=== PATIENT | male | born 1955 | race Caucasian/White ===

== ENCOUNTER 2020-02-10 10:53 | Outpatient (CLI) | payer MEDICARE, MEDICAID, SELFPAY ==
[2020-02-10 12:12] LABS: Basophils Absolute Auto 0.1 K/mm3 (0.0-0.1); Basophils Percent Auto 0.5 % (0.2-1.2); Eosinophils Absolute Auto 0.1 K/mm3 (0-0.3); Eosinophils Percent Auto 0.7 % (0-4.4); Hematocrit 45.9 % (42.0-52.0); Hemoglobin 15.4 g/dL (14.0-18.0); Immature Granulocyte Absolute 0.04 K/mm3 (0.00-0.031); Immature Granulocyte Percent A 0.4 % (0-0.5); Lymphocytes Absolute Auto 1.92 K/mm3 (0.9-3.2); Lymphocytes Percent Auto 17.8 % (18.3-44.2); Mean Corpuscular HGB Conc 33.6 g/dl (32-36); Mean Corpuscular Hemoglobin 32.2 pg (26-34); Mean Corpuscular Volume 95.8 fl (80-100); Mean Platelet Volume 10.1 fl (7.4-10.4); Monocytes Absolute Auto 1.1 K/mm3 (0.1-0.6); Monocytes Percent Auto 10.1 % (2.6-8.5); Neutrophils Absolute Auto 7.6 K/mm3 (1.3-6.7); Neutrophils Percent Auto 70.5 % (45.5-73.1); Platelet Count Result 206 k/mm3 (150-375); Red Blood Count 4.79 M/mm3 (4.6-6.20); Red Cell Distribution Width 12.9 % (11.5-14.5); White Blood Count 10.8 K/mm3 (4.5-10.0)
[2020-02-10 12:20] LABS: Alanine Aminotransferase 12 U/L (4-50); Albumin Level 4.1 g/dL (3.5-5.1); Alkaline Phosphatase 89 U/L (38-126); Anion Gap 6 mmol/L (8-16); Aspartate Amino Transferase 14 U/L (17-59); Bilirubin,Total 0.6 mg/dL (0.2-1.3); Blood Urea Nitrogen 13 mg/dL (9-20); Calcium 9.3 mg/dL (8.4-10.2); Carbon Dioxide 25 mmol/L (22-30); Chloride 104 mmol/L (98-107); Cholesterol 115 mg/dL (0-200); Estimated Glomerular Filt Rate > 60; Glucose 110 mg/dL (75-110); HDL Direct 32 mg/dL; Potassium 4.2 mmol/L (3.4-5.0); Sodium 135 mmol/L (137-145); Triglycerides 62 mg/dL (<150)
[2020-02-10 12:23] LABS: Add Urine Microscopic? NO; Appearance Urine Clear (Clear); Bilirubin Urine Negative (Negative); Blood Urine Negative (Negative); Color Urine Straw (Yellow); Glucose Urine UA Negative (Negative); Ketones Urine Negative (Negative); Leukocyte Esterase Ur Negative LEU/UL (NEGATIVE); Nitrate Urine Negative (Negative); Protein Urine Negative (Negative); Specific Grav Ur 1.005 (1.001-1.035); Urobilinogen Urine Negative mg/dL (<2.0)
[2020-02-10 12:30] LABS: LDL Cholesterol Direct 66 mg/dL
[2020-02-10 12:59] LABS: Prostate Specific Antigen 0.6 ng/mL (< OR = 4.0)
== END 2020-02-10 10:54 | disposition home or self-care (01) ==
DX: I10 Essential (primary) hypertension (principal); Z12.5 Encounter for screening for malignant neoplasm of prostate
CPT/HCPCS: 36415; 80053; 80061; 81003; 84153; 85025; G0103

== ENCOUNTER 2020-03-11 09:20 | Emergency (ER) | payer MEDICARE, MEDICAID, SELFPAY ==
[2020-03-11 09:27] VITALS: BP 143/90; PULSE 80; RESP 14; TEMP 36.3; O2SAT 98
--- NOTE | 2020-03-11 10:26 | ED.WOUNDLAC ---
HPI - Wound/Laceration General Chief Complaint: Wound/Laceration <CARMENZA Aleman Last Filed: 03/11/20 11:56> Stated Complaint: abscess to groin <CARMENZA Aleman Last Filed: 03/11/20 11:56> Time Seen by Provider: 03/11/20 10:12 <CARMENZA Aleman Last Filed: 03/11/20 11:56> Source: patient <CARMENZA Aleman Last Filed: 03/11/20 11:56> Mode of arrival: ambulatory <CARMENZA Aleman Last Filed: 03/11/20 11:56> Limitations: no limitations <CARMENZA Aleman Last Filed: 03/11/20 11:56> History of Present Illness HPI narrative: This is a 64-year-old male that presents the emergency department for cyst to the scrotum x1 year. Reports he had to have this drained a year ago. Reports since he has still had the cyst in the area. Reports over the last week it has become red and painful. Denies fever or drainage. <CARMENZA Aleman Last Filed: 03/11/20 11:56> Related Data Home Medications: Home Medications Medication Instructions Recorded Confirmed clopidogrel 03/11/20 lisinopril 03/11/20 rosuvastatin mg 03/11/20 <CARMENZA Aleman Last Filed: 03/11/20 11:56> Allergies/Adverse Reactions: Allergies Allergy/AdvReac Type Severity Reaction Status Date / Time No Known Allergies Allergy Unknown Unknown Verified 02/05/19 11:32 <CARMENZA Aleman Last Filed: 03/11/20 11:56> Review of Systems Review of Systems: Narrative: CONSTITUTIONAL: Denies fever SKIN: Reports cyst GENITOURINARY: Denies dysuria <CARMENZA Aleman Last Filed: 03/11/20 11:56> All systems reviewed & are unremarkable except as noted in HPI and below <CARMENZA Aleman Last Filed: 03/11/20 11:56> PMFSH Past Medical History Medical History: Medical History (Updated 03/11/20 @ 11:51 by Mar Ledezma PA-C) History of CVA (cerebrovascular accident) History of hyperlipidemia History of hypertension <Mar Ledezma PA-C - Last Filed: 03/11/20 11:56> Social History Social History: Social History Gender identity (if verbalized by the patient): Male <Mar Ledezma PA-C - Last Filed: 03/11/20 11:56> Exam Narrative: Exam Narrative: GENERAL: Well-appearing, well-nourished, and in no acute distress. HEAD: Normocephalic, atraumatic. EYES: EOMI. CHEST: Clear to auscultation. No respiratory distress. No wheezes rales or rhonchi HEART: Regular rate and rhythm. No murmur heard. Normal peripheral pulses. EXTREMITIES: Normal range of motion. No edema. SKIN: Warm, dry, no rash. NEURO: No focal deficits. Alert and oriented x3. PSYCH: Normal mood and affect MALE GENITAL: 2 small areas (2cm and 1.5cm) of redness and fluctuance to the left hemiscrotum. No extension of erythema or edema. No testicular tenderness <Mar Ledezma PA-C - Last Filed: 03/11/20 11:56> Course Vital Signs Vital signs: Vital Signs Temperature 97.4 F L 03/11/20 09:27 Pulse Rate 80 03/11/20 09:27 Respiratory Rate 14 03/11/20 09:27 Blood Pressure 143/90 H 03/11/20 09:27 Pulse Oximetry 98 03/11/20 09:27 Temperature 97.4 F L 03/11/20 09:27 Pulse Rate 68 03/11/20 12:05 Respiratory Rate 12 03/11/20 12:05 Blood Pressure 132/60 03/11/20 12:05 Pulse Oximetry 98 03/11/20 12:05 <Mar Ledezma PA-C - Last Filed: 03/11/20 11:56> Vital Signs Temperature 97.4 F L 03/11/20 09:27 Pulse Rate 80 03/11/20 09:27 Respiratory Rate 14 03/11/20 09:27 Blood Pressure 143/90 H 03/11/20 09:27 Pulse Oximetry 98 03/11/20 09:27 Temperature 97.4 F L 03/11/20 09:27 Pulse Rate 68 03/11/20 12:05 Respiratory Rate 12 03/11/20 12:05 Blood Pressure 132/60 03/11/20 12:05 Pulse Oximetry 98 03/11/20 12:05 <Courtney Mittal MD - Last Filed: 03/11/20 13:28> Procedures Abscess I/D scrotum: Date of Incision: 03/11/20 <Mar Ledezma PA-C - Last Filed: 03/11/20 11:56>
[2020-03-11 10:45] LABS: Basophils Absolute Auto 0.1 K/mm3 (0.0-0.1); Basophils Percent Auto 0.7 % (0.2-1.2); Eosinophils Absolute Auto 0.1 K/mm3 (0-0.3); Hematocrit 45.3 % (42.0-52.0); Hemoglobin 15.1 g/dL (14.0-18.0); Immature Granulocyte Absolute 0.03 K/mm3 (0.00-0.031); Immature Granulocyte Percent A 0.3 % (0-0.5); Lymphocytes Absolute Auto 1.77 K/mm3 (0.9-3.2); Lymphocytes Percent Auto 20.5 % (18.3-44.2); Mean Corpuscular HGB Conc 33.3 g/dl (32-36); Mean Corpuscular Hemoglobin 32.3 pg (26-34); Mean Corpuscular Volume 96.8 fl (80-100); Mean Platelet Volume 9.9 fl (7.4-10.4); Monocytes Absolute Auto 0.8 K/mm3 (0.1-0.6); Monocytes Percent Auto 9.6 % (2.6-8.5); Neutrophils Absolute Auto 5.9 K/mm3 (1.3-6.7); Neutrophils Percent Auto 67.9 % (45.5-73.1); Platelet Count Result 201 k/mm3 (150-375); Red Blood Count 4.68 M/mm3 (4.6-6.20); Red Cell Distribution Width 13.3 % (11.5-14.5); White Blood Count 8.7 K/mm3 (4.5-10.0)
[2020-03-11 10:59] LABS: Alanine Aminotransferase 13 U/L (4-50); Albumin Level 3.7 g/dL (3.5-5.1); Alkaline Phosphatase 76 U/L (38-126); Anion Gap 6 mmol/L (8-16); Aspartate Amino Transferase 14 U/L (17-59); Bilirubin,Total 0.6 mg/dL (0.2-1.3); Blood Urea Nitrogen 16 mg/dL (9-20); CRP 0.7 mg/dL (<1.0); Calcium 9.5 mg/dL (8.4-10.2); Carbon Dioxide 28 mmol/L (22-30); Chloride 104 mmol/L (98-107); Estimated CRCL calculation 81 ml/min; Estimated Glomerular Filt Rate > 60; Glucose 121 mg/dL (75-110); Potassium 3.9 mmol/L (3.4-5.0); Sodium 138 mmol/L (137-145)
[2020-03-11 11:02] VITALS: BP 131/77; PULSE 95; RESP 14; O2SAT 98
[2020-03-11 11:07] LABS: Prothrombin Time 13.3 Seconds (11.1-14.7)
[2020-03-11 11:08] LABS: Partial Thromboplastin Time 28.1 SECONDS (22.3-36.8)
[2020-03-11 12:05] VITALS: BP 132/60; PULSE 68; RESP 12; O2SAT 98
== END 2020-03-11 12:06 | disposition home or self-care (01) ==
PROVIDERS: Emergency Provider General Practice
DX: N49.2 Inflammatory disorders of scrotum (principal); E78.5 Hyperlipidemia, unspecified; I10 Essential (primary) hypertension; Z86.73 Personal history of transient ischemic attack (TIA), and cerebral infarction without residual deficits
CPT/HCPCS: 36415; 54700; 80053; 85025; 85610; 85730; 86140; 99283

== ENCOUNTER 2020-06-10 15:22 | Outpatient (CLI) | payer MEDICARE, MEDICAID, SELFPAY ==
--- NOTE | 2020-06-10 15:27 | ECG_ITS ---
Measurements Intervals [place] Rate: 79 P: 72 MN: 171 QRS: -80 QRSD: 132 T: 57 QT: 414 QTc: 476 Interpretive Statements SINUS RHYTHM ATRIAL PREMATURE COMPLEXES RIGHT BUNDLE BRANCH BLOCK LEFT ANTERIOR FASCICULAR BLOCK ABNORMAL ECG Electronically Signed On 06-10-2020 16:20:58 [employer] by Aleksey Salas D.O.
== END 2020-06-10 15:23 | disposition home or self-care (01) ==
LOC: ANHSURGERY 15:27
PROVIDERS: Visit Provider Urology
DX: Z01.818 Encounter for other preprocedural examination (principal); I10 Essential (primary) hypertension; I44.4 Left anterior fascicular block; I45.10 Unspecified right bundle-branch block
CPT/HCPCS: 93005

== ENCOUNTER 2020-06-11 04:32 | Outpatient (CLI) | payer MEDICARE, MEDICAID, SELFPAY ==
[2020-06-11 19:32] LABS: SARS-CoV-2 RNA PCR Positive
== END 2020-06-11 04:33 | disposition home or self-care (01) ==
LOC: ANHCOVIDDT 04:34
PROVIDERS: Visit Provider Urology
DX: U07.1 COVID-19 (principal)
CPT/HCPCS: C9803; U0003

== ENCOUNTER 2020-06-14 00:59 | Day surgery (SDC) | payer MEDICARE, MEDICAID, SELFPAY ==
[2020-06-10 13:40] VITALS: BMI 28.8
[2020-06-14 08:37] VITALS: BP 149/82; PULSE 73; RESP 16; TEMP 36.9; O2SAT 97
--- NOTE | 2020-06-14 08:38 | WPDHPUPDATE1 ---
History and Physical Update Update Date/Time: 06/14/20 08:38 History and Physical has been reviewed, including an updated exam of the patient. There are NO changes in the patient's condition. Risks, benefits, and alternatives have been discussed and questions answered. Patient agrees to proceed with procedure. Proceed with I and D of scrotal abscess
--- NOTE | 2020-06-14 08:39 | PM.IMHP ---
H&P: HPI History of Present Illness Date/Time: 06/14/20 08:39 Chief Complaint: scrotal abscess Narrative: Jose Stewart is a 65 year old male who was evaluated by Dr Taveras and scheduled for I and D of scrotal abscess Review of Systems Review of Systems: All systems reviewed & are unremarkable except as noted in HPI and below PMFSH Past Medical History Medical History History of CVA (cerebrovascular accident) History of hyperlipidemia History of hypertension Social History Social History Years smoked: 41 Smoking status: Current every day smoker Tobacco type: cigarettes Substance use type: marijuana Last use: 1 Living arrangements: with family Gender identity (if verbalized by the patient): Male Spiritual care concerns: No Meds Home Medications and Allergies Home Medications Medication Instructions Recorded Confirmed Type clopidogrel 75 mg PO DAILY 03/11/20 06/10/20 History lisinopril 20 mg PO DAILY 03/11/20 06/10/20 History rosuvastatin 20 mg PO DAILY 03/11/20 06/10/20 History umeclidinium-vilanterol [Anoro 1 inh INHALATION QAM 06/10/20 06/10/20 History Ellipta] zolpidem 2.5 mg PO HS 06/10/20 06/10/20 History Allergies Allergy/AdvReac Type Severity Reaction Status Date / Time No Known Allergies Allergy Unknown Unknown Verified 06/10/20 13:36 Assessment and Plan Assessment and plan (1) Scrotal abscess: Code(s): N49.2 - Inflammatory disorders of scrotum Status: Acute Additional Plan I and D of scrotal abscess
--- NOTE | 2020-06-14 08:50 | WPDANESEPPF ---
Anes - Initial Pre Proc Eval Procedure: Operation Date: 06/14/20 09:30 Proposed Procedures p Incision and Drainage of Scrotal Abscess - Dillon Miranda MD Date/Time: 06/14/20 08:50 Surgeon: Dillon Miranda MD Pre Op Diagnosis: Scrotal abscess Patient Data Age: 65 Gender: M Height: 6 ft 3 in Weight: 104.5 kg Allergies Allergy/AdvReac Type Severity Reaction Status Date / Time No Known Allergies Allergy Unknown Unknown Verified 06/10/20 13:36 Home Medications Medication Instructions Recorded Confirmed Type clopidogrel 75 mg PO DAILY 03/11/20 06/10/20 History lisinopril 20 mg PO DAILY 03/11/20 06/10/20 History rosuvastatin 20 mg PO DAILY 03/11/20 06/10/20 History umeclidinium-vilanterol [Anoro 1 inh INHALATION QAM 06/10/20 06/10/20 History Ellipta] zolpidem 2.5 mg PO HS 06/10/20 06/10/20 History Patient hx anesthesia problems: none Family hx anesthesia problems: none PMFSH Past Medical History Medical History History of CVA (cerebrovascular accident) History of hyperlipidemia History of hypertension Social History Social History Years smoked: 41 Smoking status: Current every day smoker Tobacco type: cigarettes Substance use type: marijuana Last use: 1 Living arrangements: with family Gender identity (if verbalized by the patient): Male Spiritual care concerns: No Anes - Eval Final PreProcedure Day of Procedure 06/14/20 08:50 Patient weight: overweight Heart: regular rate and rhythm Lungs: clear to auscultation Airway: Mallampati scale class III Neurological: alert and oriented Last oral intake: >/= 8 hours ASA classification: III Emergent: no Anesthetic plan: proceed Anesthesia type and monitoring: general GIVS (may use ETT if needed) and ETT and standard monitoring Informed Consent: The patient's anesthetic plan and its attendant risks and benefits were discussed with the patient/family/POA. Questions were solicited and answers provided to the satisfaction of the patient/family/POA.
[2020-06-14] MEDS: LACTATED RINGERS 1,000 ML 30 ML IV CONT (08:59)
[2020-06-14] MEDS: ceFAZolin 2 GM/D5W 50 ML 2 GM/50 ML BAG IVPB (09:35)
[2020-06-14] MEDS: LIDOCAINE HCL 1% LOCAL INJ 10 ML VIAL 20 ML INFILTRATE (10:05)
[2020-06-14 10:11] VITALS: BP 122/76; PULSE 77; RESP 16; O2SAT 94
[2020-06-14 10:15] VITALS: BP 122/79; PULSE 79; RESP 13; O2SAT 96
--- NOTE | 2020-06-14 10:17 | PM.PROC ---
Procedure Note - Detailed Date of procedure: 06/14/20 Pre-op diagnosis: Scrotal abscess Post-op diagnosis: same Procedure performed: I and D of scrotal abscess Description of procedure: Patient is taken to the operative suite. He was correctly identified and placed in dorsal lithotomy position and prepped draped usual sterile fashion. He has an area of fluctuance in the perineal area. There is approximately 3 separate areas. Two balm communicate and were incised with about a 1-1/2 inch incision. Some purulence was noted and cultures were taken. Second incision was made just inferior to this 1 approximately 1 cm. This also was noted to communicate. We did leave a small skin bridge there. The wound was copiously irrigated with saline. Some of the skin which did not appear very healthy was also excised. The wound was left open. We placed Xeroform gauze and then damp saline gauze on top of that. We anesthetized with 1% lidocaine. Patient is taken recovery stable condition. He will be instructed on wet-to-dry dressing changes twice a day. He will follow up in a couple of weeks. Develops any problems he will call us so we can deal with appropriately. Anesthesia: GLMA Surgeon: Dillon Miranda MD Drains: No Packing: Yes Pathology: yes Complications: No immediate complications Condition: stable Disposition: PACU
[2020-06-14 10:30] VITALS: BP 122/82; PULSE 66; RESP 12; O2SAT 99
[2020-06-14 10:45] VITALS: BP 125/83; PULSE 69; RESP 12; O2SAT 97
[2020-06-14 10:52] VITALS: BP 139/90; PULSE 76; RESP 12; O2SAT 97
--- NOTE | 2020-06-14 10:54 | SUR.PHASEI ---
recovered pt in or 5. pt doing well on room air. taking pt to designated area to get dressed now. pt on way to pick him up.
== END 2020-06-14 10:53 | disposition home or self-care (01) ==
PROVIDERS: Visit Provider Urology
PROC: (CPT 54700; principal; 2020-06-14 09:30)
DX: N49.2 Inflammatory disorders of scrotum (principal); I10 Essential (primary) hypertension; E78.5 Hyperlipidemia, unspecified; Z86.73 Personal history of transient ischemic attack (TIA), and cerebral infarction without residual deficits; Z79.02 Long term (current) use of antithrombotics/antiplatelets; F17.210 Nicotine dependence, cigarettes, uncomplicated; F12.90 Cannabis use, unspecified, uncomplicated
CPT/HCPCS: 55100; 87070; 87075; 87076; 87205; A9270; J0690; J2250; J2405; J2704; J3010; J7120

== ENCOUNTER 2020-09-28 10:23 | Emergency (ER) | payer MEDICARE, MEDICAID, SELFPAY ==
[2020-09-28 10:39] VITALS: BP 147/98; PULSE 73; RESP 16; TEMP 36; O2SAT 98
--- NOTE | 2020-09-28 10:50 | ED.SKABFB ---
HPI - Skin/Abscess/Foreign Bdy General Chief complaint: Skin/Abscess/Foreign Body Stated complaint: right eye swelling Related Data Home Medications Medication Instructions Recorded Confirmed clopidogrel 75 mg PO DAILY 03/11/20 09/28/20 lisinopril 20 mg PO DAILY 03/11/20 09/28/20 rosuvastatin 20 mg PO DAILY 03/11/20 09/28/20 Anoro Ellipta 1 inh INHALATION QAM 06/10/20 09/28/20 zolpidem 2.5 mg PO HS 06/10/20 09/28/20 amiodarone 200 mg PO BID 09/28/20 09/28/20 sildenafil 100 mg PO .PRN PRN 09/28/20 09/28/20 Allergies Allergy/AdvReac Type Severity Reaction Status Date / Time No Known Allergies Allergy Unknown Unknown Verified 09/28/20 10:47 Review of Systems Review of Systems: Narrative: CONSTITUTIONAL: Denies fever, chills, or sweats. EYES: Denies visual changes, redness, or discharge. ENT: Denies rhinorrhea, congestion, sore throat, or otalgia. CARDIOVASCULAR: Denies chest pain, palpitations, or edema. RESPIRATORY: Denies cough or dyspnea. GASTROINTESTINAL: Denies abdominal pain, nausea, vomiting, or diarrhea. GENITOURINARY: Denies dysuria or hematuria. SKIN: abscess to face MUSCULOSKELETAL: Denies back pain, joint pain, or myalgia. NEUROLOGIC: Denies headache, numbness, dizziness, or weakness. PSYCHIATRIC: Denies anxiety or depression. PMFSH Past Medical History Medical History History of CVA (cerebrovascular accident) History of hyperlipidemia History of hypertension Social History Social History Years smoked: 41 Smoking status: Current every day smoker Tobacco type: cigarettes Substance use type: marijuana Last use: 1 Gender identity (if verbalized by the patient): Male Spiritual care concerns: No Comments At the time of signature, I have reviewed and agree with nursing past medical, surgical, social, and family history unless otherwise noted. Please see nursing chart for further information. There is no relevant family history pertinent to the presenting complaint. Exam Narrative: Exam Narrative: GENERAL: Well-appearing, well-nourished, and in no acute distress. HEAD: Normocephalic, atraumatic. EYES: EOMI. No redness or drainage. Conjunctiva are normal. ENT: Mucous membranes pink and moist. Nares clear. No rhinorrhea. TMs normal bilaterally. Throat normal. Uvula midline. NECK: AROM. Supple. No lymphadenopathy. CHEST: No respiratory distress. Clear to auscultation. HEART: Regular rate and rhythm. No murmur appreciated. Normal peripheral pulses. MUSCULOSKELETAL: No bony tenderness. EXTREMITIES: Normal range of motion. No edema. SKIN: Erythema, edema to right face. NEURO: No focal deficits. Alert and oriented x3. Gait steady. PSYCH: Normal affect. No signs of depression or anxiety. Course Vital Signs Vital signs: Vital Signs Temperature 36.0 C L 09/28/20 10:39 Pulse Rate 73 09/28/20 10:39 Respiratory Rate 16 09/28/20 10:39 Blood Pressure 147/98 H 09/28/20 10:39 Pulse Oximetry 98 09/28/20 10:39 Temperature 36.0 C L 09/28/20 10:39 Pulse Rate 73 09/28/20 10:39 Respiratory Rate 16 09/28/20 10:39 Blood Pressure 147/98 H 09/28/20 10:39 Pulse Oximetry 98 09/28/20 10:39 Procedures Abscess I/D face: Date of Incision: 09/28/20 Time of Incision: 11:20 Side (if applicable): right Sedation/analgesia: none Local Anesthetic: none Technique: needle aspiration Amount of fluid expressed (mL): 2 Irrigation: No Packing used?: none I&D Results: Pus Abcess I&D Additional Comments: Large amount of pus expressed from right face. MDM - Skin/Abscess/Foreign Bdy MDM Narrative Medical decision making narrative: Most likely abscess with cellulitis to right face vs infected sebaceous cyst. Discussed with patient to start taking antibiotic and follow up with PCP in 3-5 days. If rednes
== END 2020-09-28 11:40 | disposition home or self-care (01) ==
PROVIDERS: Emergency Provider Nurse Practitioner
DX: L03.211 Cellulitis of face (principal); L02.01 Cutaneous abscess of face; B96.20 Unspecified Escherichia coli [E. coli] as the cause of diseases classified elsewhere; F17.210 Nicotine dependence, cigarettes, uncomplicated; E78.5 Hyperlipidemia, unspecified; I10 Essential (primary) hypertension; Z86.73 Personal history of transient ischemic attack (TIA), and cerebral infarction without residual deficits
CPT/HCPCS: 10160; 87070; 87075; 87076; 87077; 87186; 87205; 99213; G0463

== ENCOUNTER 2020-10-13 10:22 | Emergency (ER) | payer MEDICARE, MEDICAID, SELFPAY ==
--- NOTE | ~2020-10-13 | CT_ITS ---
EXAMINATION: CT abdomen pelvis w con DATE: 10/13/2020 12:10 INDICATION: Left lower quadrant abdominal pain TECHNIQUE: Computed tomography (CT) of the abdomen and pelvis was performed with 100 mL Omnipaque-350 intravenous contrast. Automated exposure control and iterative reconstruction technique were employe d. The dose-length product was 1021.15 mGy-cm. COMPARISON: None FINDINGS: Decreased volume in the left lower lobe with atelectasis/scarring along side a suture line at the pos terior medial aspect of the left lower lobe consistent with prior pulmonary wedge resection. Heart si ze is normal. Atherosclerotic coronary artery calcification. No pericardial or pleural effusion. Smal l sliding-type hiatal hernia. Cholecystectomy clips at the gallbladder fossa. Liver, pancreas and levi ateral adrenal glands are normal. Several scattered splenic calcifications consistent with old granul omatous disease. Bilateral low-attenuation renal cysts the largest on the right measuring 2.1 cm. The re is mild scattered colonic diverticulosis without adjacent inflammatory change to suggest diverticu litis. No bowel obstruction. The appendix is not visualized. No pericecal inflammatory change to sug gest acute appendicitis. Bladder is normal. No free intraperitoneal gas or fluid. No pathologically e nlarged abdominal or pelvic lymphadenopathy. Small fat-containing umbilical hernia. There is calcifie d atherosclerosis of the aorta and many of the other arteries. Partially visualized right total hip arthroplasty. Mild thoracolumbar dextro scoliosis with mild spondylosis. IMPRESSION: 1. No acute intra-abdominal/pelvic process. 2. Small sliding-type hiatal hernia. 3. Mild diverticulosis. Reviewed, dictated and finalized at location A.
[2020-10-13 10:30] VITALS: BP 146/79; PULSE 98; RESP 18; TEMP 36.6; O2SAT 98
[2020-10-13 10:51] LABS: Basophils Absolute Auto 0.1 K/mm3 (0.0-0.1); Basophils Percent Auto 0.6 % (0.2-1.2); Eosinophils Absolute Auto 0.1 K/mm3 (0-0.3); Eosinophils Percent Auto 1.4 % (0-4.4); Hematocrit 44.6 % (42.0-52.0); Hemoglobin 14.8 g/dL (14.0-18.0); Immature Granulocyte Absolute 0.03 K/mm3 (0.00-0.031); Immature Granulocyte Percent A 0.3 % (0-0.5); Lymphocytes Absolute Auto 1.47 K/mm3 (0.9-3.2); Lymphocytes Percent Auto 16.2 % (18.3-44.2); Mean Corpuscular HGB Conc 33.2 g/dl (32-36); Mean Corpuscular Hemoglobin 32.8 pg (26-34); Mean Corpuscular Volume 98.9 fl (80-100); Mean Platelet Volume 9.6 fl (7.4-10.4); Monocytes Absolute Auto 0.9 K/mm3 (0.1-0.6); Monocytes Percent Auto 9.4 % (2.6-8.5); Neutrophils Absolute Auto 6.5 K/mm3 (1.3-6.7); Neutrophils Percent Auto 72.1 % (45.5-73.1); Platelet Count Result 219 k/mm3 (150-375); Red Blood Count 4.51 M/mm3 (4.6-6.20); Red Cell Distribution Width 14.4 % (11.5-14.5); White Blood Count 9.1 K/mm3 (4.5-10.0)
[2020-10-13 10:59] LABS: Add Urine Microscopic? NO; Appearance Urine Clear (Clear); Bilirubin Urine Negative (Negative); Blood Urine Negative (Negative); Color Urine Yellow (Yellow); Glucose Urine UA Negative (Negative); Ketones Urine Negative (Negative); Leukocyte Esterase Ur Negative LEU/UL (Negative); Nitrate Urine Negative (Negative); Protein Urine Negative (Negative); Specific Grav Ur 1.012 (1.001-1.035); Urobilinogen Urine Negative mg/dL (<2.0)
[2020-10-13 11:01] LABS: Alanine Aminotransferase 14 U/L (4-50); Alkaline Phosphatase 86 U/L (38-126); Anion Gap 5 mmol/L (8-16); Aspartate Amino Transferase 18 U/L (17-59); Bilirubin,Total 0.8 mg/dL (0.2-1.3); Blood Urea Nitrogen 12 mg/dL (9-20); Calcium 9.6 mg/dL (8.4-10.2); Carbon Dioxide 26 mmol/L (22-30); Chloride 106 mmol/L (98-107); Estimated CRCL calculation 73 ml/min; Estimated Glomerular Filt Rate > 60; Glucose 125 mg/dL (75-110); Lipase 52 U/L (23-300); Potassium 4.2 mmol/L (3.4-5.0); Sodium 137 mmol/L (137-145)
[2020-10-13 11:23] VITALS: BP 124/87; PULSE 67; RESP 18; O2SAT 99
--- NOTE | 2020-10-13 11:27 | ED.ABDPAIN ---
HPI - Abdominal Pain General Chief Complaint: Abdominal Pain Stated Complaint: abd pain Time Seen by Provider: 10/13/20 11:21 History of Present Illness HPI narrative: LLQ pain for the past few days. No radiation. Mild at rest worse with any movement. He has never had this pain before. No nausea, vomitng, diarrhea, fever. Went to his PCP this morning and they sent him here for further evaluation. Related Data Home Medications Medication Instructions Recorded Confirmed clopidogrel 75 mg PO DAILY 03/11/20 09/28/20 lisinopril 20 mg PO DAILY 03/11/20 09/28/20 rosuvastatin 20 mg PO DAILY 03/11/20 09/28/20 amiodarone 200 mg PO BID 09/28/20 09/28/20 Allergies Allergy/AdvReac Type Severity Reaction Status Date / Time No Known Allergies Allergy Unknown Unknown Verified 10/13/20 10:32 Review of Systems Review of Systems: All systems reviewed & are unremarkable except as noted in HPI and below Constitutional: Constitutional: Denies chills and Denies fever(s) ENT: Reports system reviewed and no additional complaints, except as documented Cardiovascular: Cardiovascular: Denies chest pain Respiratory: Respiratory: Denies dyspnea Gastrointestinal: Gastrointestinal: Reports abdominal pain, Denies diarrhea, Denies nausea and Denies vomiting Genitourinary: Genitourinary: Denies hematuria and Denies dysuria Musculoskeletal: Musculoskeletal: Denies back pain Neurologic: Denies confusion, Denies dizziness and Denies weakness Hematologic/Lymphatic: Hematologic/Lymphatic: Reports no additional hematologic/lymphatic complaints [facility] Past Medical History Medical History History of CVA (cerebrovascular accident) History of hyperlipidemia History of hypertension Social History Social History Years smoked: 41 Smoking status: Current every day smoker Tobacco type: cigarettes Substance use type: marijuana Last use: 1 Gender identity (if verbalized by the patient): Male Spiritual care concerns: No Exam Const: General: healthy appearing, no acute distress and alert Orientation/consciousness: patient oriented x3 HENMT: Head: normal to inspection Neck: Neck: normal visual inspection Resp: Effort & Inspection: normal respiratory effort Auscultation: clear to auscultation bilaterally, no rales, no rhonchi and no wheezes Cardio: Jugular venous distension: no JVD Rate: regular rate Rhythm: regular rhythm Heart sounds: no murmurs GI: Inspection: non-distended GI Palp: Yes Soft to palpation, Yes Tenderness to palpation present (GI) (mild LLQ), No Guarding due to palpation present (GI), No Hernia present, No Palpable mass present and No Rebound tenderness present Auscultation: normal bowel sounds Skin: General skin exam: normal color Neuro: General: patient oriented x3 and moves all extremities Speech: normal speech Extrem: General: normal to inspection and no edema Psych: Appearance: well kempt Affect: normal affect Course Vital Signs Vital signs: Vital Signs Temperature 36.6 C 10/13/20 10:30 Pulse Rate 98 10/13/20 10:30 Respiratory Rate 18 10/13/20 10:30 Blood Pressure 146/79 H 10/13/20 10:30 Pulse Oximetry 98 10/13/20 10:30 Temperature 36.6 C 10/13/20 10:30 Pulse Rate 66 10/13/20 13:08 Respiratory Rate 16 10/13/20 13:08 Blood Pressure 128/89 10/13/20 13:08 Pulse Oximetry 98 10/13/20 13:08 MDM - Abdominal Pain MDM Narrative Medical decision making narrative: Labs and CT normal. Pain nearly resolved after toradol. Could be abdominal wall strain. Differential Diagnosis Differential diagnosis: Likely calculus of kidney, constipation, diverticulitis, pancreatitis, small bowel obstruction and other (inguinal hernia. ) Medical Records Attestation: I reviewed the patient's medical records. Lab Data Attestation: I reviewed the patient's lab resu
[2020-10-13 11:59] VITALS: BP 140/92; PULSE 68; RESP 18; O2SAT 99
[2020-10-13] MEDS: KETOROLAC 30 MG/ML VIAL (*BKC) IV PUSH (13:07)
[2020-10-13 13:08] VITALS: BP 128/89; PULSE 66; RESP 16; O2SAT 98
== END 2020-10-13 13:39 | disposition home or self-care (01) ==
PROVIDERS: Emergency Provider Emergency Medicine; PCP Family Medicine
DX: R10.32 Left lower quadrant pain (principal); Z86.73 Personal history of transient ischemic attack (TIA), and cerebral infarction without residual deficits; E78.5 Hyperlipidemia, unspecified; I10 Essential (primary) hypertension; F17.210 Nicotine dependence, cigarettes, uncomplicated; K44.9 Diaphragmatic hernia without obstruction or gangrene; K57.90 Diverticulosis of intestine, part unspecified, without perforation or abscess without bleeding
CPT/HCPCS: 36415; 74177; 80053; 81003; 83690; 85025; 96374; 99284; J1885; Q9967

== ENCOUNTER 2021-01-13 02:40 | Day surgery (SDC) | payer MEDICARE, MEDICAID, SELFPAY ==
[2021-01-13 12:07] VITALS: BP 151/87; PULSE 84; RESP 18; TEMP 35.7; O2SAT 98; BMI 29.5
--- NOTE | 2021-01-13 12:10 | WPDANESEPPF ---
Anes - Initial Pre Proc Eval Procedure: Operation Date: 01/13/21 13:15 Proposed Procedures p Screening Colonoscopy - Alex Brady MD Date/Time: 01/13/21 12:10 Surgeon: Alex Brady MD Pre Op Diagnosis: hx of colon polyps Patient Data Age: 65 Gender: M Height: 1.91 m Weight: 109 kg Allergies Allergy/AdvReac Type Severity Reaction Status Date / Time No Known Allergies Allergy Unknown Unknown Verified 01/09/21 12:23 Home Medications Medication Instructions Recorded Confirmed Type clopidogrel 75 mg PO DAILY 03/11/20 01/09/21 History lisinopril 20 mg PO DAILY 03/11/20 01/09/21 History rosuvastatin 20 mg PO DAILY 03/11/20 01/09/21 History sodium,potassium,mag sulfates See Rx Instructions .ROUTE 12/28/20 Rx [Suprep Bowel Prep Kit] .COMPLEX #1 ml umeclidinium-vilanterol [Anoro 1 inh INHALATION DAILY 01/09/21 01/09/21 History Ellipta] zolpidem 2.5 mg PO HS 01/09/21 01/09/21 History Patient hx anesthesia problems: none Family hx anesthesia problems: none PMFSH Past Medical History Medical History History of CVA (cerebrovascular accident) History of hyperlipidemia History of hypertension Tobacco abuse Social History Social History Years smoked: 40 Smoking status: Current every day smoker Tobacco type: cigarettes Substance use type: marijuana Last use: 1 Living arrangements: with family Gender identity (if verbalized by the patient): Male Spiritual care concerns: No Anes - Eval Final PreProcedure Day of Procedure 01/13/21 12:10 Patient weight: overweight Heart: regular rate and rhythm Lungs: decreased breath sounds Airway: Mallampati scale class II Neurological: alert and oriented Last oral intake: >/= 8 hours ASA classification: III Emergent: no Anesthetic plan: proceed Anesthesia type and monitoring: general GIVS and standard monitoring Informed Consent: The patient's anesthetic plan and its attendant risks and benefits were discussed with the patient/family/POA. Questions were solicited and answers provided to the satisfaction of the patient/family/POA.
[2021-01-13] MEDS: LACTATED RINGERS 1,000 ML 150 ML IV CONT (12:16)
--- NOTE | 2021-01-13 12:19 | PM.HPGS ---
History of Present Illness History of Present Illness Consent: Risks, benefits, and alternatives have been discussed and questions answered. Patient agrees to proceed with procedure. Chief complaint: hx of colon polyps Narrative: Jose Stewart is a 65 year old male due to have another colonoscopy, had polyps Review of Systems Constitutional: Constitutional: Denies headache(s) and Denies weakness Eyes: Eyes: Denies blurry vision ENT: Reports Normal hearing present, Denies headache(s) and Denies neck pain Cardiovascular: Cardiovascular: Denies chest pain and Denies dyspnea Respiratory: Respiratory: Denies dyspnea Gastrointestinal: Gastrointestinal: Reports no additional gastrointestinal complaints Genitourinary: Genitourinary: Denies dysuria Musculoskeletal: Musculoskeletal: Denies neck pain Integumentary/Breasts: Skin/Breast: Denies dry skin Neurologic: Reports Normal hearing present, Denies headache(s) and Denies weakness Psychiatric: Psychiatric: Denies anxiety Endocrine: Endocrine: Denies change in body appearance Hematologic/Lymphatic: Hematologic/Lymphatic: Denies easy bleeding Allergic/Immunologic: Allergic/Immunologic: Denies urticaria PMFSH Past Medical History Medical History (Updated 01/13/21 @ 12:20 by Alex Brady MD) Colon polyp History of CVA (cerebrovascular accident) History of hyperlipidemia History of hypertension Tobacco abuse Social History Social History Years smoked: 40 Smoking status: Current every day smoker Tobacco type: cigarettes Substance use type: marijuana Last use: 1 Living arrangements: with family Gender identity (if verbalized by the patient): Male Spiritual care concerns: No Meds Home Medications and Allergies Home Medications Medication Instructions Recorded Confirmed Type clopidogrel 75 mg PO DAILY 03/11/20 01/09/21 History lisinopril 20 mg PO DAILY 03/11/20 01/09/21 History rosuvastatin 20 mg PO DAILY 03/11/20 01/09/21 History sodium,potassium,mag sulfates See Rx Instructions .ROUTE 12/28/20 Rx [Suprep Bowel Prep Kit] .COMPLEX #1 ml umeclidinium-vilanterol [Anoro 1 inh INHALATION DAILY 01/09/21 01/09/21 History Ellipta] zolpidem 2.5 mg PO HS 01/09/21 01/09/21 History Allergies Allergy/AdvReac Type Severity Reaction Status Date / Time No Known Allergies Allergy Unknown Unknown Verified 01/09/21 12:23 Vital Signs Vital Signs - 24 hr 01/13/21 12:07 Temperature 96.2 F L Pulse Rate 84 Respiratory Rate 18 Blood Pressure 151/87 H Pulse Oximetry 98 Exam Const: General: comfortable and no acute distress HENMT: General nose exam: Normal nares present Eyes: General: appearance normal, both eyes and all related structures Neck: Neck: no JVD Resp: Auscultation: clear to auscultation bilaterally Cardio: Rate: regular rate Rhythm: regular rhythm GI: Inspection: non-distended GI Palp: Yes Soft to palpation Skin: General skin exam: normal color Neuro: General: gait normal Speech: normal speech Extrem: General: normal to inspection Psych: Mental Status: mental status grossly normal Assessment and Plan Assessment and plan (1) Colon polyp: Code(s): K63.5 - Polyp of colon Status: Acute Assessment and Plan: colonoscopy
[2021-01-13 12:57] VITALS: BP 89/58; PULSE 70; RESP 18; O2SAT 94
[2021-01-13 13:07] VITALS: BP 114/74; PULSE 80; RESP 20; O2SAT 100
[2021-01-13 13:17] VITALS: BP 119/87; PULSE 67; RESP 18; O2SAT 98
== END 2021-01-13 13:28 | disposition home or self-care (01) ==
PROVIDERS: PCP Family Medicine; Visit Provider Internal Medicine Gastroenterology
PROC: 0DJD8ZZ Inspection of Lower Intestinal Tract, Via Natural or Artificial Opening Endoscopic (ICD-10-PCS; CPT 45378; principal; 2021-01-13 13:15)
DX: Z12.11 Encounter for screening for malignant neoplasm of colon (principal); D12.4 Benign neoplasm of descending colon; D12.3 Benign neoplasm of transverse colon; K63.5 Polyp of colon; K57.30 Diverticulosis of large intestine without perforation or abscess without bleeding; K64.8 Other hemorrhoids; E78.5 Hyperlipidemia, unspecified; I10 Essential (primary) hypertension; F17.210 Nicotine dependence, cigarettes, uncomplicated; Z86.010 Personal history of colon polyps
CPT/HCPCS: 45385; 88305; J2704; J7120

== ENCOUNTER 2021-04-18 01:44 | Emergency (ER) | payer OTHER, SELFPAY ==
--- NOTE | ~2021-04-18 | XR_ITS ---
XR chest 2V DATE: 04/18/2021 02:30 INDICATION: Left-sided chest pain this evening. Cough for a few weeks. History of lung cancer, hypert ension. TECHNIQUE: PA and lateral views COMPARISON: None FINDINGS: Heart size is within normal range. Is aortic calcification. No hilar or mediastinal enlarge ment. Bilateral hyperinflation, suggesting COPD. No pulmonary infiltrate or consolidation, pleural effusion or pulmonary vascular congestion or pneumothorax is detected. IMPRESSION: Bilateral hyperinflation, suggesting COPD No active cardiopulmonary disease Aortic atherosclerosis Reviewed, dictated and finalized at location A. PPER SOFT PLASTIC
[2021-04-18 01:47] VITALS: BP 157/85; PULSE 77; RESP 16; TEMP 35.9; O2SAT 100
[2021-04-18 02:01] VITALS: PULSE 77
[2021-04-18 02:05] VITALS: BP 133/87; PULSE 77; RESP 16; O2SAT 97
--- NOTE | 2021-04-18 02:13 | ECG_ITS ---
Rate 75 NM 171 QRSd 137 QT 450 QTc 506 --[place]-- P 51 QRS -86 T 60 SINUS RHYTHM FREQUENT ATRIAL PREMATURE COMPLEXES RIGHT BUNDLE BRANCH BLOCK LEFT ANTERIOR FASCICULAR BLOCK BASELINE ARTIFACT- II, III, AVR, AVL, AVF, V1-V6 ABNORMAL ECG Electronically Signed On 04-18-2021 11:53:10 TOOL REPAIRER BENCH by Aleksey MEJIA
--- NOTE | 2021-04-18 02:16 | ED.CHESTPAIN ---
HPI - Chest Pain General Chief Complaint: Chest Pain Stated Complaint: abdominal/chest pain Time Seen by Provider: 04/18/21 02:03 Source: patient Mode of arrival: ambulatory Limitations: no limitations History of Present Illness HPI narrative: Patient is a 66-year-old male complaining of chest pain, left lateral rib/chest wall, 9 out of 10, dull, nonradiating started right after he coughed hard tonight. Patient denies any shortness of breath, abdominal pain, nausea, vomiting, diaphoresis, fever or chills. Related Data Home Medications Medication Instructions Recorded Confirmed clopidogrel 75 mg PO DAILY 03/11/20 04/18/21 lisinopril 20 mg PO DAILY 03/11/20 04/18/21 rosuvastatin 20 mg PO DAILY 03/11/20 04/18/21 zolpidem 2.5 mg PO HS 01/09/21 04/18/21 sildenafil [Viagra] 100 mg PO DAILY PRN 04/18/21 04/18/21 Allergies Allergy/AdvReac Type Severity Reaction Status Date / Time No Known Allergies Allergy Unknown Unknown Verified 04/18/21 02:06 Review of Systems Review of Systems: All systems reviewed & are unremarkable except as noted in HPI and below Constitutional: Constitutional: Denies body ache(s), Denies chills, Denies excessive sweating, Denies fatigue, Denies fever(s), Denies headache(s), Denies lethargy, Denies malaise, Denies weakness and Denies weight loss Eyes: Eyes: Denies blurry vision, Denies change in vision and Denies loss of vision ENT: Denies dizziness, Denies ear discharge, Denies headache(s), Denies lip swelling, Denies epistaxis, Denies nasal congestion, Denies neck pain, Denies throat swelling and Denies tongue swelling Cardiovascular: Cardiovascular: Denies diaphoresis, Denies rapid heart rate, Denies edema, Denies irregular heart rhythm, Denies lightheadedness, Denies palpitations, Denies dyspnea and Denies dyspnea on exertion Respiratory: Respiratory: Denies chest congestion, Denies cough, Denies hemoptysis, Denies dyspnea and Denies dyspnea on exertion Gastrointestinal: Gastrointestinal: Denies abdominal pain, Denies melena, Denies hematochezia, Denies diarrhea, Denies nausea, Denies vomiting and Denies hematemesis Musculoskeletal: Musculoskeletal: Denies abnormal gait, Denies deformity, Denies joint swelling, Denies limited range of motion, Denies neck pain and Denies numbness Neurologic: Denies Abnormal speech present, Denies abnormal gait, Denies confusion, Denies dizziness, Denies headache(s), Denies focal weakness, Denies loss of vision, Denies numbness, Denies Other visual disturbances, Denies Sensory deficit (Neuro) and Denies weakness Psychiatric: Psychiatric: Denies confusion, Denies depression, Denies auditory hallucinations, Denies homicidal ideation and Denies suicidal ideation Endocrine: Endocrine: Denies cold intolerance, Denies excessive sweating, Denies fatigue, Denies heat intolerance and Denies palpitations Hematologic/Lymphatic: Hematologic/Lymphatic: Denies easy bleeding and Denies easy bruising Allergic/Immunologic: Allergic/Immunologic: Denies lip swelling, Denies throat swelling and Denies tongue swelling PMFSH Past Medical History Medical History Colon polyp History of CVA (cerebrovascular accident) History of hyperlipidemia History of hypertension Tobacco abuse Social History Social History Years smoked: 40 Smoking status: Current every day smoker Tobacco type: cigarettes Substance use type: marijuana Last use: 1 Gender identity (if verbalized by the patient): Male Spiritual care concerns: No Exam Const: General: cooperative, healthy appearing, comfortable, no acute distress, well developed, alert and awake; No confusion Orientation/consciousness: oriented to person, oriented to place, oriented to time, patient oriented x3 and No confusion Limitations: no limitations HENMT: Head: normal to inspection, normocephalic and atraumatic Ears: he
[2021-04-18 02:18] LABS: Basophils Absolute Auto 0.1 K/mm3 (0.0-0.1); Basophils Percent Auto 0.7 % (0.2-1.2); Eosinophils Absolute Auto 0.1 K/mm3 (0-0.3); Eosinophils Percent Auto 1.3 % (0-4.4); Hematocrit 43.3 % (42.0-52.0); Hemoglobin 14.7 g/dL (14.0-18.0); Immature Granulocyte Absolute 0.05 K/mm3 (0.00-0.031); Immature Granulocyte Percent A 0.5 % (0-0.5); Lymphocytes Absolute Auto 1.79 K/mm3 (0.9-3.2); Mean Corpuscular HGB Conc 33.9 g/dl (32-36); Mean Corpuscular Hemoglobin 34.2 pg (26-34); Mean Corpuscular Volume 100.7 fl (80-100); Mean Platelet Volume 10.2 fl (7.4-10.4); Monocytes Absolute Auto 0.9 K/mm3 (0.1-0.6); Monocytes Percent Auto 9.7 % (2.6-8.5); Neutrophils Absolute Auto 6.5 K/mm3 (1.3-6.7); Neutrophils Percent Auto 68.8 % (45.5-73.1); Platelet Count Result 178 k/mm3 (150-375); Red Cell Distribution Width 13.9 % (11.5-14.5); White Blood Count 9.4 K/mm3 (4.5-10.0)
[2021-04-18 02:29] LABS: Anion Gap 6 mmol/L (8-16); Blood Urea Nitrogen 13 mg/dL (9-20); Calcium 9.2 mg/dL (8.4-10.2); Carbon Dioxide 26 mmol/L (22-30); Chloride 103 mmol/L (98-107); Estimated CRCL calculation 81 ml/min; Estimated Glomerular Filt Rate > 60; Glucose 140 mg/dL (65-110); Lipase 49 U/L (23-300); Potassium 3.8 mmol/L (3.4-5.0); Sodium 135 mmol/L (137-145)
[2021-04-18 02:33] LABS: Prothrombin Time 12.6 Seconds (11.1-14.7)
[2021-04-18 02:34] LABS: Partial Thromboplastin Time 26.1 SECONDS (22.3-36.8)
[2021-04-18] MEDS: MORPHINE SULFATE (*CRX) 2 MG/ML INJ IV PUSH (02:46)
[2021-04-18] MEDS: ASPIRIN 81 MG CHEWABLE TABLET 324 MG PO (02:47)
[2021-04-18 03:35] VITALS: BP 132/70; PULSE 70; RESP 16; O2SAT 94
[2021-04-18 04:25] LABS: Troponin I 0.025 ng/mL (0.000-0.034)
[2021-04-18] MEDS: HYDROcodone/acetaminophen (*CRX) 7.5-325 MG TABLET 1 TAB PO (04:45)
[2021-04-18 04:51] VITALS: BP 136/71; PULSE 62; RESP 16; O2SAT 96
== END 2021-04-18 04:52 | disposition home or self-care (01) ==
PROVIDERS: Emergency Provider Emergency Medicine; PCP Family Medicine
DX: S22.32XA Fracture of one rib, left side, initial encounter for closed fracture (principal); E78.5 Hyperlipidemia, unspecified; I10 Essential (primary) hypertension; Z86.73 Personal history of transient ischemic attack (TIA), and cerebral infarction without residual deficits; Z86.010 Personal history of colon polyps; F17.210 Nicotine dependence, cigarettes, uncomplicated; X50.9XXA Other and unspecified overexertion or strenuous movements or postures, initial encounter
CPT/HCPCS: 36415; 71046; 80048; 83690; 84484; 85025; 85610; 85730; 93005; 96374; 99284; A9270; J2270

== ENCOUNTER 2021-04-25 11:16 | Emergency (ER) | payer OTHER, SELFPAY ==
[2021-04-25 11:28] VITALS: BP 168/102; PULSE 90; RESP 18; TEMP 36.2; O2SAT 100
--- NOTE | 2021-04-25 12:16 | ED.URI ---
HPI - URI/Sore Throat General Chief Complaint: Upper Respiratory Infection Stated Complaint: Congestion Time Seen by Provider: 04/25/21 12:16 Source: patient and RN notes reviewed Mode of arrival: ambulatory Limitations: no limitations History of Present Illness HPI Narrative: 66-year-old male presents with concern for 2-week history of cough, chest congestion, shortness of breath. He reports history of right lower lobectomy. Reports he was seen in the emergency room for the cough on Saturday, was told he had a rib fracture and was prescribed pain medicine, he denies any treatment of the cough at that time. Reports he has been using nebulizer at home with little relief. He reports rhinorrhea. Denies sore throat, nasal congestion, body aches, chills, fever. Reports symptoms started 2 weeks ago after he had flu shot and a Covid booster. MD elicited complaint: cough Related Data Home Medications Medication Instructions Recorded Confirmed clopidogrel 75 mg PO DAILY 03/11/20 04/18/21 lisinopril 20 mg PO DAILY 03/11/20 04/18/21 rosuvastatin 20 mg PO DAILY 03/11/20 04/18/21 zolpidem 2.5 mg PO HS 01/09/21 04/18/21 sildenafil [Viagra] 100 mg PO DAILY PRN 04/18/21 04/18/21 omeprazole 04/25/21 umeclidinium-vilanterol [Anoro INHALATION 04/25/21 Ellipta] Allergies Allergy/AdvReac Type Severity Reaction Status Date / Time No Known Allergies Allergy Unknown Unknown Verified 04/18/21 02:06 Review of Systems Review of Systems: CONSTITUTIONAL: Denies malaise, chills, sweats, or fever. EYES: Denies visual changes, redness, or discharge. ENT: Reports rhinorrhea. Congestion, sinus pain, otalgia or sore throat. CARDIOVASCULAR: Denies chest pain, palpitations, or edema. RESPIRATORY: Reports cough, dyspnea. MUSCULOSKELETAL: Denies back pain, joint pain, or myalgia. NEUROLOGIC: Denies numbness, weakness, or headache. PSYCHIATRIC: Denies anxiety or depression. All systems reviewed & are unremarkable except as noted in HPI and below PMFSH Past Medical History Medical History (Updated 04/25/21 @ 12:30 by Danielle Pascal NP) Colon polyp History of CVA (cerebrovascular accident) History of hyperlipidemia History of hypertension Rib fracture Tobacco abuse Social History Social History Years smoked: 40 Smoking status: Current every day smoker Tobacco type: cigarettes Substance use type: marijuana Last use: 1 Gender identity (if verbalized by the patient): Male Spiritual care concerns: No Comments At time of signature, agree with nursing past medical, surgical, social and family history. There is no relevant family history pertinent to the presenting complaint Exam Narrative: GENERAL: Well-appearing, well-nourished, and in no acute distress. HEAD: Normocephalic EYES: PERRLA, conjunctivae clear ENT: Nares clear, clear discharge. Mucous membranes moist. TM pearly keating with dull light reflex bilaterally; no tragal tenderness. Oropharynx not erythematous without lesions. Tonsils not enlarged and without exudate, no drooling, no hoarseness, no trismus, uvula midline. NECK: Supple. No lymphadenopathy CHEST: Scattered wheeze and rhonchi, breath sounds equal. No rales, or stridor. No respiratory distress. Conversational dyspnea HEART: Regular rate and rhythm. No murmur heard. SKIN: Warm, dry, no rash. NEURO: Alert and oriented x3. PSYCH: Normal mood and affect Course Course Emergency Course: Patient is aware of diagnosis, understands and agrees to treatment plan. Anticipatory guidance given. Patient agrees to follow-up as directed and is aware of reasons to seek care at the emergency department. Portions of this record may have been created with voice recognition software Vital Signs Vital signs: Vital Signs Temperature 97.2 F L 04/25/21 11:28 Pulse Rate 90 04/25/21 11:28 Respiratory Rate 18 04/25/21 11:28 Blood Pressure 168/102 H 04/25/21 11:28
== END 2021-04-25 12:37 | disposition home or self-care (01) ==
PROVIDERS: Emergency Provider Nurse Practitioner; PCP Family Medicine
DX: R05.9 Cough, unspecified (principal); R06.2 Wheezing; F17.210 Nicotine dependence, cigarettes, uncomplicated; E78.5 Hyperlipidemia, unspecified; I10 Essential (primary) hypertension; F12.90 Cannabis use, unspecified, uncomplicated; Z86.73 Personal history of transient ischemic attack (TIA), and cerebral infarction without residual deficits
CPT/HCPCS: 99213; G0463

== ENCOUNTER 2021-07-23 13:35 | Emergency (ER) | payer OTHER, SELFPAY ==
--- NOTE | ~2021-07-23 | XR_ITS ---
EXAMINATION: XR ribs LT 2V w CXR 2V DATE: 07/23/2021 14:15 INDICATION: Left sided rib pain post fall TECHNIQUE: PA and lateral views of the chest and 3 views of the left ribs were obtained. COMPARISON: Chest radiograph dated 04/18/2021 FINDINGS: No rib fractures identified. Suture line extending maria c-inferolaterally from the right hilum. Uncha nged mild linear discoid atelectasis/scarring at the left lung base with chronic blunting at the cost ophrenic angle. Bilateral paracardial fat pads. No other airspace opacities, pulmonary edema, pleural effusion or pneumothorax. Heart size is normal. Mild lumbar dextrocurvature. Mild thoracic spondylos is. IMPRESSION: 1. No rib fracture or acute cardiopulmonary disease. Reviewed, dictated and finalized at location A. ING DEPARTMENT SUPERVISOR
--- NOTE | ~2021-07-23 | XR_ITS ---
EXAMINATION: XR thoracic spine 3V DATE: 07/23/2021 14:15 INDICATION: Upper back pain post fall alignment is normal. TECHNIQUE: One AP, lateral and lateral swimmer's views of the thoracic spine were obtained. COMPARISON: Two-view chest radiograph dated 04/18/2021 FINDINGS: Vertebral body heights are normal. Mild disc height loss with mild degenerative endplate changes at a few levels in the mid to lower thoracic spine. Suture lines at both the left and right lungs. Cardio mediastinal silhouette is normal. IMPRESSION: 1. Mild thoracic spondylosis. Reviewed, dictated and finalized at location A. IFIED ALCOHOL COUNSELOR
--- NOTE | 2021-07-23 13:44 | ED.BACK ---
HPI - Back Pain/Injury General Chief Complaint: Fall Stated Complaint: Back Pain,Arm Pain Time Seen by Provider: 07/23/21 13:44 Source: patient and RN notes reviewed History of Present Illness HPI Narrative: Patient is 66-year-old male who presents the urgent care with complaints of mid back pain and left arm pain. Patient states that he slipped down a few steps walking out of his house on Saturday. Patient states that the pain has gotten worse over the last day or 2. States that he has been taking Tylenol. Reports of a small hit to the back of the head and patient is on Plavix. Denies of any blurry vision, nausea, vomiting or loss of consciousness at the time of the fall. Patient has been treating the left arm injury with washing and Neosporin. Denies of any shortness of breath. No other acute complaints. No acute distress noted. Patient aware of the plan of care. Some parts of this dictation were generated by voice recognition software and may contain typographical and/or grammatical inaccuracies. Related Data Home Medications Medication Instructions Recorded Confirmed clopidogrel 75 mg PO DAILY 03/11/20 07/23/21 lisinopril 20 mg PO DAILY 03/11/20 07/23/21 rosuvastatin 20 mg PO DAILY 03/11/20 07/23/21 zolpidem 2.5 mg PO HS 01/09/21 07/23/21 sildenafil [Viagra] 100 mg PO DAILY PRN 04/18/21 07/23/21 omeprazole 20 mg PO DAILY 04/25/21 07/23/21 umeclidinium-vilanterol [Anoro 1 inh INHALATION DIRECTED 04/25/21 07/23/21 Ellipta] bupropion HCl PO 07/23/21 Allergies Allergy/AdvReac Type Severity Reaction Status Date / Time No Known Allergies Allergy Unknown Unknown Verified 07/23/21 13:40 Review of Systems Review of Systems: CONSTITUTIONAL: Denies fever, chills, or sweats. EYES: Denies visual changes, redness, or discharge. ENT: Denies rhinorrhea, congestion, sore throat, or otalgia. CARDIOVASCULAR: Denies chest pain, palpitations, or edema. RESPIRATORY: Denies cough or dyspnea. GASTROINTESTINAL: Denies abdominal pain, nausea, vomiting, or diarrhea. GENITOURINARY: Denies dysuria or hematuria. SKIN: Denies rash or itching. Reports of left arm injury MUSCULOSKELETAL: Reports of left arm pain and mid back pain NEUROLOGIC: Denies headache, numbness, or weakness. All other systems reviewed are negative, except as documented in HPI. [facility] Past Medical History Medical History (Updated 07/23/21 @ 15:06 by YG Castro) Colon polyp History of CVA (cerebrovascular accident) History of hyperlipidemia History of hypertension Rib fracture Tobacco abuse Social History Social History Years smoked: 40 Smoking status: Current every day smoker Tobacco type: cigarettes Substance use type: marijuana Last use: 1 Gender identity (if verbalized by the patient): Male Spiritual care concerns: No Comments At the time of my signature, I reviewed and agree with the nursing past medical, surgical, social, and family history. There is no relevant family history pertinent to the patient complaint. Exam Narrative: GENERAL: This is a well-nourished, well-developed patient, in no apparent distress. HEAD: normocephalic, atraumatic. EYES: PERRL. Sclera clear/white. Vision is grossly intact. EARS: External ears normal NOSE: External nose normal with no obvious nasal discharge, nares without redness, no rhinorrhea. THROAT: Mucous membranes moist NECK: Neck supple CARDIOVASCULAR: Regular rate and rhythm RESPIRATORY: Coarse throughout SKIN: warm, intact with no suspicious lesions or rash, good texture and turgor. NEURO: awake, alert, and oriented to person, place and time. There were no obvious focal neurologic abnormalities. EXTREMITIES: No clubbing, cyanosis, or edema. BACK: Moderate mid thoracic spine tenderness without notable ecchymosis or crepitus. Mild lumbar tenderness Course Course Level of Care: Express Care Visit Vital Signs Vital signs: Vi
[2021-07-23 13:46] VITALS: BP 132/76; PULSE 93; RESP 20; TEMP 36.4; O2SAT 99
[2021-07-23 13:47] VITALS: BP 132/76; PULSE 93; RESP 20; TEMP 36.4; O2SAT 99
== END 2021-07-23 15:11 | disposition home or self-care (01) ==
PROVIDERS: Emergency Provider Nurse Practitioner Family; PCP Family Medicine
DX: M54.6 Pain in thoracic spine (principal); W10.9XXA Fall (on) (from) unspecified stairs and steps, initial encounter; E78.5 Hyperlipidemia, unspecified; I10 Essential (primary) hypertension; Z86.73 Personal history of transient ischemic attack (TIA), and cerebral infarction without residual deficits
CPT/HCPCS: 71046; 71100; 72072; 99214; G0463

== ENCOUNTER 2021-09-29 13:33 | Emergency (ER) | payer OTHER, SELFPAY ==
--- NOTE | ~2021-09-29 | XR_ITS ---
EXAMINATION: XR humerus LT INDICATION: Left arm pain, initial encounter TECHNIQUE: Four views of the left humerus are obtained. COMPARISON: None available FINDINGS: There is an acute, traumatic, comminuted fracture in the proximal shaft of the humerus with posterior and valgus angulation at the fracture site. There is a questionable nondisplaced transvers e fracture in the surgical neck of the proximal humerus. Alignment at the elbow is normal. No additio nal fracture is identified. IMPRESSION: 1. Comminuted fracture with angulation the proximal shaft of the humerus. Possible nondisplaced trans verse surgical neck fracture of the proximal humerus. Reviewed, dictated and finalized at location B. IMPRESSION: 1. Comminuted fracture with angulation the proximal shaft of the humerus. Possi ble nondisplaced transverse surgical neck fracture of the proximal humerus.
--- NOTE | ~2021-09-29 | XR_ITS ---
EXAMINATION: XR knee LT 2V DATE: 09/29/2021 15:08 INDICATION: Left knee pain TECHNIQUE: Two views of the left knee were obtained. COMPARISON: None. FINDINGS: Alignment is normal. No fracture or osteochondral lesion. Joint spaces are normal with no e rosions. No joint effusion/synovitis. Calcified atherosclerosis is noted. IMPRESSION: 1. No acute osseous abnormality. Reviewed, dictated and finalized at location B.
[2021-09-29 13:32] VITALS: BP 106/73; PULSE 69; RESP 17; O2SAT 95
--- NOTE | 2021-09-29 13:41 | ECG_ITS ---
Measurements Intervals [place] Rate: 58 P: 41 MN: 191 QRS: -75 QRSD: 137 T: 31 QT: 439 QTc: 435 Interpretive Statements SINUS BRADYCARDIA RIGHT BUNDLE BRANCH BLOCK [120+ ms QRS DURATION, UPRIGHT V1, 40+ ms S IN I/aVL/V4/V5/V6] LEFT ANTERIOR FASCICULAR BLOCK [QRS AXIS <= -45, QR IN I, RS IN II] COMPARED TO ECG 04/18/2021 02:13:49 SINUS BRADYCARDIA NOW PRESENT Electronically Signed On 09-30-2021 13:35:38 CDT by Susie Elizabeth M.D.
--- NOTE | 2021-09-29 14:16 | PC.NURSE ---
Dr. Oliva at bedside to assess pt
--- NOTE | 2021-09-29 14:18 | ED.FALL ---
HPI - Fall General Chief Complaint: Fall Stated Complaint: fall, arm injury Time Seen by Provider: 09/29/21 13:48 Source: patient and family Limitations: no limitations History of Present Illness HPI Narrative: Patient is 66 years old white male tripped and fell landed on the left shoulder, struck head on the ground, no loss of consciousness, patient on Plavix, currently complaining of left shoulder pain and left knee pain. Patient denies other injuries. He denies fever, chills, nausea, vomiting, diarrhea, constipation, chest pain, shortness of breath, headache, focal neurodeficit Related Data Home Medications Medication Instructions Recorded Confirmed clopidogrel 75 mg PO DAILY 03/11/20 07/23/21 lisinopril 20 mg PO DAILY 03/11/20 07/23/21 rosuvastatin 20 mg PO DAILY 03/11/20 07/23/21 zolpidem 2.5 mg PO HS 01/09/21 07/23/21 sildenafil [Viagra] 100 mg PO DAILY PRN 04/18/21 07/23/21 omeprazole 20 mg PO DAILY 04/25/21 07/23/21 umeclidinium-vilanterol [Anoro 1 inh INHALATION DIRECTED 04/25/21 07/23/21 Ellipta] bupropion HCl PO 07/23/21 Allergies Allergy/AdvReac Type Severity Reaction Status Date / Time No Known Allergies Allergy Unknown Unknown Verified 07/23/21 13:40 Review of Systems Review of Systems: All systems reviewed & are unremarkable except as noted in HPI and below PMFSH Past Medical History Medical History Colon polyp History of CVA (cerebrovascular accident) History of hyperlipidemia History of hypertension Rib fracture Tobacco abuse Social History Social History Years smoked: 40 Smoking status: Current every day smoker Tobacco type: cigarettes Substance use type: marijuana Last use: 1 Gender identity (if verbalized by the patient): Male Spiritual care concerns: No Exam Narrative: General appearance: Well-developed, well-nourished Skin: Normal color Head: Normocephalic, nontraumatic Eyes: Clear conjunctiva ENT: Oropharynx normal, ears normal, nose normal Neck: Supple, nontender Chest and respiratory: Airway patent, no respiratory distress, no accessory muscle use Heart: Regular rate/rhythm Abdomen: Soft, nontender, no organomegaly, quiet bowel sounds Vascular: Normal peripheral pulses, normal capillary refill. Musculoskeletal: Left shoulder showed no deformity, no bruises, no swelling. Severe pain proximal left humerus. Abrasion left knee anteriorly slight limited range of motion Neurologic: Alert and oriented ?3, NYLON OPERATOR is normal as tested, no gross motor deficit Course Course Emergency Course: Stable Consultations Consultation #1: Dr. Cardoso Agreed with shoulder immobilizer, discharged home, outpatient follow-up. Date: 09/29/21 Time: 16:15 Vital Signs Vital signs: Vital Signs Pulse Rate 69 09/29/21 13:32 Respiratory Rate 17 09/29/21 13:32 Blood Pressure 106/73 09/29/21 13:32 Pulse Oximetry 95 09/29/21 13:32 Pulse Rate 69 09/29/21 13:32 Respiratory Rate 17 09/29/21 13:32 Blood Pressure 106/73 09/29/21 13:32 Pulse Oximetry 95 09/29/21 13:32 MDM - Fall Differential Diagnosis Differential diagnosis: Likely concussion without loss of consciousness and other (Left shoulder fracture, left knee fracture) Imaging Data Radiologist's impression: Impressions Knee X-Ray 09/29/21 15:25 IMPRESSION: 1. No acute osseous abnormality. Humerus X-Ray 09/29/21 15:27 IMPRESSION: 1. Comminuted fracture with angulation the proximal shaft of the humerus. Possible nondisplaced transverse surgical neck fracture of the proximal humerus. Cr
[2021-09-29] MEDS: SODIUM CHLORIDE 0.9% IV 1,000 ML 999 ML IV CONT (14:28)
[2021-09-29] MEDS: ONDANSETRON INJ 4 MG/2 ML VIAL IV PUSH (14:28)
[2021-09-29] MEDS: HYDROmorphone HCL INJ (*CRX) 1 MG/ML SYR 0.5 MG IV PUSH (14:28)
[2021-09-29] MEDS: HYDROmorphone HCL INJ (*CRX) 1 MG/ML SYR (15:50)
--- NOTE | 2021-09-29 16:12 | PC.NURSE ---
Shoulder immobilizer applied by electroformer to Left arm as ordered.
[2021-09-29 16:50] VITALS: BP 122/75; PULSE 69; RESP 18; O2SAT 99
== END 2021-09-29 16:52 | disposition home or self-care (01) ==
PROVIDERS: Emergency Provider Emergency Medicine; PCP Family Medicine
DX: S42.352A Displaced comminuted fracture of shaft of humerus, left arm, initial encounter for closed fracture (principal); S89.92XA Unspecified injury of left lower leg, initial encounter; E78.5 Hyperlipidemia, unspecified; I10 Essential (primary) hypertension; Z86.010 Personal history of colon polyps; F17.210 Nicotine dependence, cigarettes, uncomplicated; R00.1 Bradycardia, unspecified; Z86.73 Personal history of transient ischemic attack (TIA), and cerebral infarction without residual deficits; I45.2 Bifascicular block; R93.6 Abnormal findings on diagnostic imaging of limbs; Z79.02 Long term (current) use of antithrombotics/antiplatelets; W01.0XXA Fall on same level from slipping, tripping and stumbling without subsequent striking against object, initial encounter
CPT/HCPCS: 73060; 73560; 96361; 96374; 96375; 96376; 99284; J1170; J2405; J7030

== ENCOUNTER 2024-07-30 09:13 | Inpatient (IN) | payer OTHER, SELFPAY ==
[2024-07-30] VITALS (22 sets, daily range): BP systolic 147–185; BP diastolic 84–99; PULSE 77–112; RESP 16–47; TEMP 36.4–36.9; O2SAT 94–99; BMI 32.8
--- NOTE | 2024-07-30 | ECHO_ITS ---
Patient Info Name: Jose Stewart Age: 69 years : 1955 Gender: Male Ht: 73 in Wt: 263 lbs BSA: 2.52 m2 HR: 80 bpm BP: 148 / 84 mmHg Heart Rhythm: Sinus Rhythm Technical Quality: Fair Exam Date: 07/30/2024 2:48 PM Exam Location: Echo Lab Patient Status: Inpatient Admit Date: 07/30/2024 Staff Ordering Physician: Eve Gallo APRN Drafter Assistant: Chiqui Miller RDCS Attending Provider: Titus Moore MD Referring Physician: Sabino GOMEZ; Exam Type: CA echo doppler color flow Study Info Indications - Diastolic dysfunction - SOB - Elevated BPN Complete two-dimensional, color flow and Doppler transthoracic echocardiogram is performed. Summary 1. Complete two-dimensional, color flow and Doppler transthoracic echocardiogram is performed. 2. Moderate concentric LVH with vigorous systolic function and grade 1 diastolic noncompliance. 3. No valvular dysfunction. 4. Sinus rhythm. Left Ventricle Left ventricular chamber dimension is normal. Left ventricular systolic function is normal, estimated at 65-70%. There is moderate concentric increased left ventricular wall thickness. The left ventricular diastolic function is grade I diastolic dysfunction. Right Ventricle Right ventricular chamber dimension is normal. Left Atria Left atrial chamber dimension is normal. Right Atria Right atrial chamber dimension is normal. Aortic Valve The aortic valve is normal. Pulmonic Valve The pulmonic valve is not well visualized. Mitral Valve The mitral valve has normal leaflets. Tricuspid Valve The tricuspid valve leaflets are normal. Pericardium/Pleural The pericardium appears normal. Aorta The aortic root size at the sinus of Valsalva is normal. Left Ventricular Outflow Tract Name Value Normal LVOT 2D LVOT Diameter 2.1 cm LVOT Doppler LVOT Peak Gradient 4 mmHg LVOT Mean Gradient 2 mmHg LVOT VTI 18 cm LVOT VTI/AV VTI Ratio 0.9 LVOT Stroke Volume 63 ml LVOT CO 4.7 l/min LVOT CI 1.9 l/min/m2 Pulmonic Valve Name Value Normal PV Doppler PV Peak Gradient 5 mmHg Mitral Valve Name Value Normal MV Doppler MV Decel [place] 172 cm/s2 MV PHT 88 ms MV Area (PHT) 2.5 cm2 4.0-5.0 MV Diastolic Function MV E Peak Velocity 52 cm/s MV A Peak Velocity 65 cm/s MV E/A 0.8 MV Decel Time 303 ms MV Annular TDI MV E/e' (Septal) 9.8 <=8.0 MV E/e' (Lateral) 6.1 <=8.0 MV E/e' (Average) 7.9 Aortic Valve Name Value Normal AV Doppler AV Peak Velocity 112 cm/s AV Peak Gradient 5 mmHg AV Mean Gradient 2 mmHg AV VTI 21 cm AV Area (Cont Eq VTI) 3.0 cm2 >=3.0 AV Area (Cont Eq Zeeshan) 3.0 cm2 AV Regurgitation 2D LVOT Area 3.5 cm2 Ventricles Name Value Normal LV Dimensions 2D/MM IVS Diastolic Thickness (2D) 1.9 cm 0.6-1.0 LVID Diastole (2D) 5.4 cm 4.2-5.8 LVIW Diastolic Thickness (2D) 1.1 cm 0.6-1.0 LVID Systole (2D) 3.5 cm 2.5-4.0 LVOT Diameter 2.1 cm LV Mass (2D Cubed) 374.09 g 88.00-224.00 LV Mass Index (2D Cubed) 149 g/m2 49-115 Relative Wall Thickness (2D) 0.42 LV Fractional Shortening/Ejection Fraction 2D/MM LV Fractional Shortening (2D) 28 % 25-43 LV EF (2D Teicholz) 53 % 52-72 LV Diastolic Volume (4C MOD) 96 ml LV EF (4C MOD) 54 % LV Diastolic Volume (2C MOD) 115 ml LV EF (2C MOD) 52 % LV Diastolic Volume (BP MOD) 108 ml 62-150 LV Diastolic Volume Index (BP MOD) 43 ml/m2 34-74 LV Systolic Volume (BP MOD) 50 ml 21-61 LV Systolic Volume Index (BP MOD) 20 ml/m2 11-31 LV EF (BP MOD) 54 % 52-72 LV Diastolic Length (4C) 8.2 cm LV Systolic Length (4C) 7.2 cm LV Stroke Volume (4C MOD) 52 ml Atria Name Value Normal LA Dimensions LA Volume (4C A-L) 100 ml LA Volume (BP A-L) 96 ml RA Dimensions RA Area (4C) 30.8 cm2 <=18.0 Report Signatures
--- NOTE | ~2024-07-30 | XR_ITS ---
EXAMINATION: XR chest 1V portable DATE: 07/30/2024 11:47 INDICATION: Shortness of breath and cough TECHNIQUE: frontal view of the chest was obtained. COMPARISON: Chest radiograph dated chest radiograph dated 11/19/[address] dated 11/10/2022 FINDINGS: Unchanged blunting at the left costophrenic angle corresponding to pleural-parenchymal scarring on th e prior CT. Unchanged hazy opacity at the medial right lower lung zone which corresponds to a small p aracardial fat pad on prior CT. There is also a small left-sided paracardial fat pad extending betwee n the apex of the normal sized heart and the left costophrenic angle. No new airspace opacities, pulm onary edema, pleural effusion or pneumothorax. Suture line this again seen projecting over the right perihilar region. Old healed anterior right fifth and sixth rib fractures. 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 IMPRESSION: 1. Chronic pleural parenchymal scarring at the left lung base. No acute cardiopulmonary disease. Reviewed, dictated and finalized at location L. [facility] IMPRESSION: 1. Chronic pleural parenchymal scarring at the left lung base. No acute cardiop ulmonary disease.
--- NOTE | ~2024-07-30 | CT_ITS ---
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 Personal history of lung cancer post right-sided lobectomy. Recently tested posi tive for flu TECHNIQUE: Computed tomographic angiography (CTA) of the chest was performed with 100 mL Omnipaque-35 0 intravenous contrast. The dose-length product was 748.51 mGy-cm. Maximum intensity projection 3D-re constructions of the aorta and other arteries were constructed by the technologist on a separate work station. COMPARISON: None. FINDINGS/OBSERVATIONS: PULMONARY ARTERIES: No filling defect is identified within the main or proximal pulmonary artery. The main pulmonary artery is enlarged, unchanged from prior. THORACIC AORTA: No aneurysmal dilatation or dissection is present. The fusiform ascending thoracic ao rtic aneurysm is not as prominent on today's study as on previous evaluation. The great vessels are intact and densley calcified. LUNGS: Trace left sided pleural effusion with adjacent compressive atelectasis and pleural plaques. P anlobular emphysematous disease is unchanged. Further evaluation of the pulmonary parenchyma is limit ed secondary to significant respiratory motion artifact. MEDIASTINUM: No morphologically suspicious or pathologically enlarged lymph nodes are identified with in the mediastinum or bilateral axilla. BONES OF THE CHEST: No acute fracture. No significant degenerative disease. No lytic or blastic lesions. HEART: The heart is markedly enlarged, without pericardial effusion. IMPRESSION: No main or proximal pulmonary embolus. No thoracic aortic dissection. Findings consistent with pulmonary hypertension, unchanged from prior. Trace left-sided pleural effusion with adjacent compressive atelectasis and pleural plaques. Panlobul ar emphysematous disease is unchanged. Reviewed, dictated and finalized at location A. CULTURE PROGRAM DIRECTOR IMPRESSION: No main or proximal pulmonary embolus. No thoracic aortic dissection. Findings consistent with pulmonary hypertension, unchanged from prior. Trace left-sided pleural effusion with adjacent compressive atelectasis and ple ural plaques. Panlobular emphysematous disease is unchanged.
--- NOTE | 2024-07-30 09:15 | ECG_ITS ---
Test Date: 2024-07-30 09:25:49 Measurements Intervals [place] Rate: 92 P: 0 CA: 0 QRS: 266 QRSD: 143 T: 67 QT: 374 QTc: 463 Interpretive Statements ATRIAL FLUTTER/TACHYCARDIA RIGHT BUNDLE BRANCH BLOCK BASELINE ARTIFACT- I, II, III, AVR, AVL, AVF, V1-V6 ABNORMAL ECG No previous ECG available for comparison Electronically Signed On 07-30-2024 09:34:12 MAKE UP OPERATOR by Aleksey Salas D.O.
--- NOTE | 2024-07-30 09:33 | ED_ITS ---
HPI - SOB/Dyspnea General Chief Complaint: Shortness of Breath/Dyspnea Stated Complaint: SOB Time Seen by Provider: 07/30/24 09:27 Source: patient Mode of arrival: ambulatory Limitations: no limitations History of Present Illness HPI Narrative: This is a 69-year-old male that presents to the emergency department for shortness of breath. Worsening over the last 3 days. Reports history of COPD. He does report a productive cough. Denies fevers. Related Data Home Medications ?Medication ?Instructions ?Recorded ?Confirmed ?Last Taken ?Type lisinopril 20 mg tablet 20 mg PO DAILY 03/11/20 07/30/24 07/29/24 History rosuvastatin 20 mg tablet 20 mg PO DAILY 03/11/20 07/30/24 07/29/24 History zolpidem 5 mg tablet 5 mg PO HS PRN insomnia 01/09/21 07/30/24 07/29/24 History sildenafil 100 mg tablet (Viagra) 100 mg PO DAILY PRN Erectile 04/18/21 07/30/24 07/25/24 History Dysfunction umeclidinium 62.5 mcg-vilanterol 1 inh inhalation DIRECTED 04/25/21 07/30/24 07/30/24 History 25 mcg/actuation powdr for inhalation (Anoro Ellipta) bupropion HCl 150 mg tablet,12 hr 150 mg PO DAILY 07/23/21 07/30/24 07/29/24 History sustained-release apixaban 5 mg tablet 5 mg PO BID 07/30/24 07/30/24 07/29/24 History Allergies Allergy/AdvReac Type Severity Reaction Status Date / Time No Known Allergies Allergy Unknown Unknown Verified 07/30/24 09:13 Review of Systems 2 Review of Systems: CONSTITUTIONAL: Denies fever ENT: Reports congestion CARDIOVASCULAR: Denies chest pain, or edema. RESPIRATORY: Reports cough and dyspnea. All systems reviewed & are unremarkable except as noted in HPI and below PMFSH Past Medical History Medical History Colon polyp Hyperlipidemia Tobacco use Cerebrovascular accident (2013) Mild memory issues. Arthritis Non-small cell lung cancer Paroxysmal atrial fibrillation Chronic obstructive pulmonary disease Hiatal hernia Hypertension Surgical History Surgical History History of tonsillectomy History of arthroscopy of both knees History of total right hip arthroplasty History of cholecystectomy History of appendectomy History of lobectomy of lung (2020) Right middle lobectomy for treatment of cancer. History of colonoscopy with polypectomy Family History Family History Other Cerebrovascular accident HLD (hyperlipidemia) Heart disease Hypertension Kidney disorder Leukemia Lung cancer Social History Social History Social History: Surrogate medical decision maker: Es Stewart, spouse. Code status: Full code. Smoking packs per day: 0.5 Smoking cigarettes per day: 10.0 Years smoked: 50 Smoking pack-years: 25.00 Smoking status: Current every day smoker Tobacco type: cigarettes and e-cigarettes/vaping Additional smoking assessment comments: Smokes 6 to 8 cigarettes a day, previously smoked more. Alcohol intake: never Substance use: current Substance use type: marijuana Last use: 1 Do You Feel Safe in your Home?: Yes Lack of Transportation: No Lack of Food: Never True Current Housing: I Have Housing Concerned About Future Housing: No Difficulty Paying Gas/Electric Bills: No Difficulty Paying for Meds: No Currently Unemployed: No Education: Decline to Answer Difficulty w/ Childcare or Family Care: No Living arrangements: with family Occupation/Education: retired Spiritual care concerns: No Exam 2 Narrative: GENERAL: Speaking in 1-2 word sentences HEAD: Normocephalic, atraumatic. EYES: EOMI. ENT: Nares clear, no rhinorrhea or epistaxis. Mucous membranes moist. Oropharynx without tonsillar hypertrophy exudate or other lesions. Bilateral TMs pearly keating non-bulging NECK: Supple. No adenopathy or masses. CHEST: Tachypneic, lung sounds severely diminished with diffuse wheezing. No rales or rhonchi HEART: Regular rate and rhythm. No murmur heard. Normal peripheral pulses. EXTREMITIES: Normal range of motion. No edema. SKIN: Warm, dry, no rash. NEURO: No focal deficits. Alert and oriented x3. PSYCH: Normal mood and affect Course Course Emergency Course: patient updated on his workup and need for admission Consultations Consultation #1: spoke with hospitalist about patient and workup who accepts admission Date: 07/30/24 Vital Signs Vital signs: Vital Signs Pulse Rate 92 07/30/24 09:15 Temperature 98.4 F 07/30/24 09:19 Pulse Rate 112 H 07/30/24 18:00 Respiratory Rate 32 H 07/30/24 16:26 Blood Pressure 151/86 H 07/30/24 15:16 Pulse Oximetry 95 07/30/24 17:00 Oxygen Delivery Nasal Cannula 07/30/24 17:00 Oxygen Flow Rate 4 07/30/24 17:00 Fraction of Inspired Oxygen 40 07/30/24 16:25 MDM - SOB/Dyspnea MDM Narrative Medical decision making narrative: Patient presents the emergency department in respiratory distress, wheezing, diminished lung sounds. Initially started on our long nebulizer treatment, given Solu-Medrol magnesium. He continued to have increased work of breathing. Placed on BiPAP. Patient reported feeling much more comfortable after that. CBC with mild leukocytosis to 11.6. Metabolic panel without concerning findings. BNP is elevated 9780. Patient is influenza A positive. Started on Tamiflu. CTA of the chest with PE obtained for further evaluation. No PE. No thoracic aortic dissection. Findings consistent with pulmonary hypertension. Trace left-sided pleural effusion with adjacent atelectasis. Panlobular emphysema. patient updated on his workup and need for admission. spoke with hospitalist about patient and workup who accepts admission Differential Diagnosis Differential diagnosis: Likely acute exacerbation of chronic obstructive airways disease, congestive heart failure, community acquired pneumonia, pulmonary embolism and other (influenza) Lab Data Attestation: I reviewed the patient's lab results. 07/30/24 09:35 07/30/24 09:35 Labs: Lab Results 07/30/24 07/30/24 07/30/24 Range/Units 09:35 09:41 09:50 WBC 11.6 H (4.5-10.0) K/mm3 RBC 4.57 L (4.6-6.20) M/mm3 Hgb 14.9 (14.0-18.0) g/dL Hct 46.8 (42.0-52.0) % MCV 102.4 H (80-100) fl MCH 32.6 (26-34) pg MCHC 31.8 L (32-36) g/dl RDW 13.6 (11.5-14.5) % Plt Count 188 (150-375) k/mm3 MPV 10.3 (7.4-10.4) fl Immature Gran % (Auto) 0.5 (0-0.5) % Neut % (Auto) 84.0 H (45.5-73.1) % Lymph % (Auto) 5.8 L (18.3-44.2) % [place] % (Auto) 9.4 H (2.6-8.5) % Eos % (Auto) 0.0 (0-4.4) % Baso % (Auto) 0.3 (0.2-1.2) % Lymph # (Auto) 0.67 L (0.9-3.2) K/mm3 [place] # (Auto) 1.1 H (0.1-0.6) K/mm3 Eos # (Auto) 0.0 (0-0.3) K/mm3 Baso # (Auto) 0.0 (0.0-0.1) K/mm3 Abs Immat Gran (auto) 0.06 H (0.00-0.031) K/mm3 Absolute Neuts (auto) 9.7 H (1.3-6.7) K/mm3 Absolute Nucleated RBC 0.000 (0.0-0.012) K/mm3 Nucleated RBC % 0.0 (0.0-0.2) % PT 15.4 H (11.1-14.7) Seconds INR 1.2 APTT 30.4 (22.3-36.8) Seconds Methemoglobin 0.3 (0-1.5) %THb Sodium 138 (137-145) mmol/L Potassium 4.3 (3.4-5.0) mmol/L Chloride 98 (98-107) mmol/L Carbon Dioxide 30 (22-30) mmol/L Anion Gap 10 (4-12) mmol/L BUN 11 D (9-20) mg/dL Creatinine 0.84 (0.7-1.3) mg/dL Estim Creat Clear Calc 104 ml/min Estimated GFR > 60 (59 - ) Glucose 127 H (65-110) mg/dL Lactic Acid 1.1 (0.7-2.0) mmol/L Calcium 9.3 (8.4-10.2) mg/dL Total Bilirubin 0.8 (0.2-1.3) mg/dL AST 18 (17-59) U/L ALT 19 (6-50) U/L Alkaline Phosphatase 108 (38-126) U/L NT-Pro-B Natriuret Pep 9780 H (19.9-100) pg/mL Total Protein 8.0 (6.3-8.2) g/dL Albumin 4.2 (3.5-5.1) g/dL Influenza A (RT-PCR) Positive A (Negative) Influenza B (RT-PCR) Negative (Negative) RSV (RT-PCR) Negative (Negative) SARS-CoV-2 RNA (RT-PCR) Negative (Negative) ABG Data ABG results: 07/30/24 09:41 Puncture Site Right radial ABG pH 7.318 L ABG pCO2 51.5 H ABG pO2 88.1 ABG PO2/FiO2 Ratio 2.45 ABG HCO3 25.8 ABG O2 Saturation 95.9 ABG O2 Content 20.4 ABG Base Excess -1.1 A-a Gradient 108.8 Oxyhemoglobin 94.8 Carboxyhemoglobin 1.5 Reduced Hemoglobin 3.4 Total Hemoglobin 15.3 O2 Delivery Device Nasal cannula O2 Liters/Min 4.0 FiO2 36 Imaging Data Radiologist's impression: ITS Impressions Chest X-Ray 07/30/24 11:47 IMPRESSION: 1. Chronic pleural parenchymal scarring at the left lung base. No acute cardiopulmonary disease. Chest CTA 07/30/24 12:54 IMPRESSION: No main or proximal pulmonary embolus. No thoracic aortic dissection. Findings consistent with pulmonary hypertension, unchanged from prior. Trace left-sided pleural effusion with adjacent compressive atelectasis and pleural plaques. Panlobular emphysematous disease is unchanged. Critical Care Time Critical Care Time Critical Care Time: Yes Total Critical Care Time: 35 Discharge Plan Discharge Clinical Impression: Influenza A, Acute hypoxemic respiratory failure Patient Disposition: Still a Patient Condition: Improved
[2024-07-30] MEDS: MAGNESIUM SULF 2 GM/WATER 50ML 2 GM/50 ML BAG IVPB (09:36)
[2024-07-30] MEDS: methylPREDNISolone SOD SUCC 125 MG VIAL IV PUSH (09:36)
--- OUTSIDE RECORDS SUMMARY | 2024-07-30 09:37 | XMS_ITS | Clinical Summary ---
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 Gender Identity Not on file Sexual Orientation Not on file Plan of Treatment Health Maintenance Due Date Last Done Comments Hepatitis C Virus (HCV) Screening 1955 TdaP Immunization 1955 Colonoscopy 2002 Colorectal Cancer Screening 2002 Cologuard 2007 Immunochemical Fecal Occult Blood 2007 Zoster Immunization (1 of 2) 2007 PSA Discussion 2012 Pneumococcal Immunization (50+ years) (3 of 3 - PCV20 or PCV21) 03/01/2020 03/01/2015, 03/09/2014, 03/15/2013 Influenza Immunization (#1) 02/02/202402/03, 02/09/2019, 02/04/2018, Additional history exists SARS-COV-2 Immunization ( - 2023- season) 2024 Respiratory Syncytial Virus (RSV) Immunization (Adult) (1 - 1-dose 75+ series) 2032 Pneumococcal Immunization Combined Discontinued 03/01/2015, 03/09/2014, 03/15/2013 Hepatitis B Immunization Aged Out No longer eligible based on patient's age to complete this topic Meningococcal Immunization (ACWY) Aged Out No longer eligible based on patient's age to complete this topic Rotavirus Immunization Aged Out No lo nger eligible based on patient's age to complete this topic
--- OUTSIDE RECORDS SUMMARY | 2024-07-30 09:37 | XMS_ITS | Clinical Summary ---
Author Organization [facility] Address [address] [place] [address] Care Team Providers Care Artist'S Model Name Role Phone Neymar Fuentes MD Primary Care Provider [phone] [phone] Allergies No known active allergies Medications clopidogreL (PLAVIX) 75 mg tablet Take 1 tablet (75 mg total) by mouth daily 1 Active rosuvastatin (CRESTOR) 20 mg tablet Take 1 tablet (20 mg total) by mouth nightly 1 Active lisinopriL (PRINIVIL,ZESTR IL) 20 mg tablet Take 1 tablet (20 mg total) by mouth daily 1 Active Anoro Ellipta 62.5-25 mcg/actuation blister with device INHALE 1 PUFF BY MOUTH DAILY 1 Active zolpidem (AMBIEN) 5 mg tablet TAKE 1 TABLET BY MOUTH EVERY OTHER NIGHT AT BEDTIME NEEDED FOR INSOMNIA 1 Active furosemide (LASIX) 20 mg tablet Take 1 tablet (20 mg total) by mouth daily 3 Active metoprolol XL (TOPROL-XL) 25 mg extended release tablet Take 1 tablet (25 mg total) by mouth every morning 3 Active omeprazole (PriLOSEC) 40 mg capsule Take 1 capsule (40 mg total) by mouth daily 3 Active polyethylene glycol (GoLYTELY) 236-22.74-6.74 -5.86 gram solution On 06/24 at 6 pm, drink 1/2 of jug of prep. On 06/25 at 0430AM drink remaining 1/2 of jug of prep. Pharmacy may substitute Nulytely for brand or generic PEG 3350 4L 4000 mL 4 Active Active Problems Problem Noted Date Diagnosed Date Paroxysmal atrial fibrillation (CMS/HCC) 021 Right bundle branch block 10/06/2020 Surgical History Surgery Date Site/Laterality Comments LUNG SURGERY PARTIAL HIP ARTHROPLASTY Medical History Medical History Date Comments Hypertension COPD (chronic obstructive pulmonary disease) (HC C) Kidney stones Family History Medical History Relation Name Comments Cancer Father Family history of malignant neoplasm - (Added by TW Conv) Heart disease Father Family history of cardiac disorder - (Added by TW Conv) Stroke Father Family history of cerebrovascular accident (CVA) - (Added by TW Conv) Relation Name Status Comments Father Alive Mother Alive Social History Tobacco Use Types Packs/Day Years Used Date Smoking Tobacco: Former Smokeless Tobacco: Never Tobacco Cessation:Counseling Given: Not Answered Personal Safety Answer Date Recorded Getting School Help Needed Not on file 05/15 Sex and Gender Information Value Date Recorded Sex Assigned at Not on file 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 Gender Identity Not on file Sexual Orientation Not on file Obstetrics History Last Filed Vital Signs Vital Sign Reading Time Taken Comments Blood Pressure 116/60 01/03/2023 10:41 AM CDT Pulse 58 01/03/2023 10:41 AM CDT Temperature - - Respiratory Rate - - Oxygen Saturation 98% 01/03/2023 10:41 AM CDT Inhaled Oxygen Concentration - - Weight 117 kg (258 lb) 01/03/2023 10:41 AM CDT Height 190.5 cm (6' 3 ) 01/03/2023 10:41 AM CDT Body Mass Index 32.25 01/03/2023 10:41 AM CDT Plan of Treatment Scheduled Procedures Name Priority Associated Diagnoses Date/Ti me COLONOSCOPY Encounter for screening for malignant neoplasm of colon Health Maintenance Due Date Last Done Comments Colon Cancer Screening-Colonoscopy 1957 Depression Screening 1957 Fall Risk Assessment 1957 Hepatitis C Screening 1957 Prostate Cancer Screening-PSA 1957 DTaP/Tdap/Td Vaccine (1 - Tdap) 1968 Hepatitis B Screening 1975 Zoster Vaccine (1 of 2) 2007 Pneumococcal vaccine 65+ (3 of 3 - PCV20 or PCV21) 03/01/2020 03/01/2015, 03/09/2014, 03/15/2013 Abdominal Aortic Aneurysm (A AA) Screen 2022 Well Visit 65+ 2022 Influenza Vaccine (#1) 2024 0, 02/09/2019, 02/04/2018, Additional history exists Insurance [facility] [place] [facility] [place] [facility] [place] [facility] [place] [facility] [place] Care Teams Artist'S Model Relationship Specialty Start Date End Date Neymar Fuentes MD PCP - General Family Medicine 10/25/20
--- OUTSIDE RECORDS SUMMARY | 2024-07-30 09:37 | XMS_ITS | Referral Summary ---
Author Organization [facility] Address [address] [place] [address] Care Team Providers Care Marine Oiler Name Role Phone Neymar Fuentes MD Primary Care Provider [phone] Allergies No known active allergies Medications clopidogreL [...] (CMS/HCC) 021 Right bundle branch block 10/06/2020 Social History Tobacco Use Types Packs/Day Years Used Date Smoking Tobacco: Former Smokeless Tobacco: Never Tobacco Cessation:Counseling Given: Not Answered Personal Safety Answer Date Recorded Getting School Help Needed Not on file 05/15 Sex and Gender Information Value Date Recorded Sex Assigned at Not on file 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
--- OUTSIDE RECORDS SUMMARY | 2024-07-30 09:37 | XMS_ITS | Encounter Summary ---
Author Organization [facility] Address [address] [place] [address] Care Team Providers Care Legal Advisor Name Role Phone Jm Cedillo MD Primary Care Provider [phone]- [phone] Encounter Details Date Type Department Care Team (Late st Contact Info) Description 08/17/2017 Abstract [facility] CONVERSION [address] [place] [address] , Generic MD Rob Social History Tobacco Use Types Packs/Day Years Used Date Smoking Tobacco: Smoker, Current Status Unknown Sex and Gender Information Value Date Recorded Sex Assigned at Not on file Legal Sex Male 9:00 PM CDT Gender Identity Not on file Sexual Orientation Not on file documented as of this encounter Plan of Treatment Not on file documented as of this encounter Visit Diagnoses Not on filedocumented in this encounter Care Teams Legal Advisor Relationship Specialty Start Date End Date Jm Cedillo MD PCP - General INTERNAL MEDICINE 12/23/18 documented as of this encounter
--- OUTSIDE RECORDS SUMMARY | 2024-07-30 09:37 | XMS_ITS | Clinical Summary ---
Author Organization [facility] Address [address] [place] [address] Care Team Providers Care Ramp Flight Attendant Name Role Phone Jm Cedillo MD Primary Care Provider [phone]- [phone] Social History Tobacco Use Types Packs/Day Years Used Date Smoking Tobacco: Smoker, Current Status Unknown Sex and Gender Information Value Date Recorded Sex Assigned at Not on file Legal Sex Male 9:00 PM CDT Gender Identity Not on file Sexual Orientation Not on file Last Filed Vital Signs Vital Sign Reading Time Taken Comments Blood Pressure 132/80 08/19/2015 10:57 AM CDT Pulse 76 08/19/2015 10:57 AM CDT Temperature - - Respiratory Rate - - Oxygen Saturation - - Inhaled Oxygen Concentration - - Weight 112.5 kg (248 lb) 08/19/2015 10:57 AM CDT Height 190.5 cm (6' 3 ) 08/19/2015 10:57 AM CDT Body Mass Index 31 08/19/2015 10:57 AM CDT Plan of Treatment Health Maintenance Due Date Last Done Comments DTaP, Tdap and Td Vaccines ( 1 - Tdap) 1976 Zoster Vaccines (1 of 2) 2007 Pneumococcal Vaccine: 65+ Ye ars (2 of 2 - PCV) 03/03/2014 03/03/2013 Colorectal Cancer Screening Colonoscopy (10 Years) 03/08/2020 03/08/2010 Annual Medicare Wellness Visit 2022 COVID-19 Vaccine ( - 2023-2 5 season) 2024 Influenza Adult (#1) 2024 03/03/2013 RSV Immunization or 60+ Years (1 - 1-dose 75+ series) 2032 Hepatitis C Completed 05/13/2015 Meningococcal B Vaccine Aged Out No l onger eligible based on patient's age to complete this topic Meningococcal Vaccine Aged Out No raisa rita eligible based on patient's age to complete this topic RSV Immunizations Under 20 Months Aged Out No longer eligible based on patient's age to complete this topic Procedures Procedure Name Priority Date/Time Associated Diagnosis Comments COLONOSCOPY Routine 03/08/2010 12:00 AM CDT from Last 3 Months or Most Recently Relevant to Health Maintenance Results * Colonoscopy (03/08/2010 12:00 AM CDT) 03/08/2010 03/08/2010 Narrative [facility] TO EPIC CONVERSION - 03/08/2010 12:00 AM CDT Documented hx of procedure Procedure Note , Generic Conversion, - 04/07/2018 Documented hx of procedure us Generic Conversion Md [facility] GI PROCEDURE ORDERABLES Final Result [facility] TO EPIC CONVERSION from Last 3 Months or Most Recently Relevant to Health Maintenance Insurance MEDICARE MEDICAID Care Teams Ramp Flight Attendant Relationship Specialty Start Date End Date Jm Cedillo MD PCP - General INTERNAL MEDICINE 12/23/18
[2024-07-30 09:45] LABS: Basophils Percent Auto 0.3 % (0.2-1.2); Hematocrit 46.8 % (42.0-52.0); Hemoglobin 14.9 g/dL (14.0-18.0); Immature Granulocyte Absolute 0.06 K/mm3 (0.00-0.031); Immature Granulocyte Percent A 0.5 % (0-0.5); Lymphocytes Absolute Auto 0.67 K/mm3 (0.9-3.2); Lymphocytes Percent Auto 5.8 % (18.3-44.2); Mean Corpuscular HGB Conc 31.8 g/dl (32-36); Mean Corpuscular Hemoglobin 32.6 pg (26-34); Mean Corpuscular Volume 102.4 fl (80-100); Mean Platelet Volume 10.3 fl (7.4-10.4); Monocytes Absolute Auto 1.1 K/mm3 (0.1-0.6); Monocytes Percent Auto 9.4 % (2.6-8.5); Neutrophils Absolute Auto 9.7 K/mm3 (1.3-6.7); Platelet Count Result 188 k/mm3 (150-375); Red Blood Count 4.57 M/mm3 (4.6-6.20); Red Cell Distribution Width 13.6 % (11.5-14.5); White Blood Count 11.6 K/mm3 (4.5-10.0)
[2024-07-30 09:53] LABS: Alanine Aminotransferase 19 U/L (6-50); Albumin Level 4.2 g/dL (3.5-5.1); Alkaline Phosphatase 108 U/L (38-126); Anion Gap 10 mmol/L (4-12); Aspartate Amino Transferase 18 U/L (17-59); Bilirubin,Total 0.8 mg/dL (0.2-1.3); Blood Urea Nitrogen 11 mg/dL (9-20); Calcium 9.3 mg/dL (8.4-10.2); Carbon Dioxide 30 mmol/L (22-30); Chloride 98 mmol/L (98-107); Estimated CRCL calculation 104 ml/min; Estimated Glomerular Filt Rate > 60; Glucose 127 mg/dL (65-110); Lactic Acid Reflex 1.1 mmol/L (0.7-2.0); Potassium 4.3 mmol/L (3.4-5.0); Sodium 138 mmol/L (137-145)
[2024-07-30 09:54] LABS: Alveolar/Arterial O2 Gradient 108.8 mmHg; Base Excess ABG -1.1 mEq/l (+/-2.0); Carboxyhemoglobin 1.5 % THb (0-2.0); Device NASAL CANNULA; Fractional Inspired Oxygen 36 %; HCO3 ABG 25.8 mEq/l (22.0-26.0); Methemoglobin ABG 0.3 %THb (0-1.5); Modified Allen's Test Pass; Oxygen Content ABG 20.4 %vol (16.0-22.0); Oxygen Saturation ABG 95.9 % (95.0-100.0); Oxyhemoglobin 94.8 % THb (90.0-100.0); PCO2 ABG 51.5 mmHg (35.0-45.0); PO2 ABG 88.1 mmHg (80.0-100.0); PO2 FiO2 Ratio Arterial Blood 2.45 %; Reduced Hemoglobin 3.4 %THb (0-5.0); Site Drawn RIGHT RADIAL; Total Hemoglobin 15.3 g/dL (12.0-18.0); pH ABG 7.318 (7.350-7.450)
[2024-07-30 09:55] LABS: INR 1.2; Partial Thromboplastin Time 30.4 Seconds (22.3-36.8); Prothrombin Time 15.4 Seconds (11.1-14.7)
[2024-07-30] MEDS: ALBUTEROL SULFATE NEB 2.5 MG/3 ML INH 15 MG INHALATION (09:56)
[2024-07-30] MEDS: IPRATROPIUM BR 0.02% INH SOLN 0.5 MG/2.5 ML VIAL 1.5 MG INHALATION (09:56)
[2024-07-30 10:16] LABS: NT Pro B Type Natriuretic Pept 9780 pg/mL (19.9-100)
[2024-07-30 10:32] LABS: Influenza A QL RT-PCR Positive (Negative); Influenza B QL RT-PCR Negative (Negative); RSV RNA, RT-PCR Negative (Negative); SARS-CoV-2 RNA PCR Negative (Negative)
--- OUTSIDE RECORDS SUMMARY | 2024-07-30 10:57 | XMS_ITS | Encounter Summary ---
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 [place] Organization [facility] Address [address] [place] [address] Care Team Providers Care Counter Maker Name Role Phone JESSICA KAY Primary Care Provider UnavailYANIV Gallegos Unavailable Unavailable JENY TAVAREZ Unavailable Unavailable ELSY, ISAAC Unavailable Unavailable RYAN TORRES Unavailable Unavailable PAOLA SMITH Unavailable Unavailable ALEM LAURENT Unavailable Unavailable ELVIA ANTONIO Unavailable Unavailable WES GARCIA Primary Care Provider Unavaila ble Insurance Providers: All historical and current Section Date Range: From patient's date of to the date document was created. This section includes the names of all active insurance providers for the patient. Insurance Provider Type of Coverage Plan Name Start of Policy Coverage End of Policy Coverage Group Number Member ID Insurance Provider's Telephone Number Policy Ríos's Name Patient's Relationship to Policy Ríos [place]REFERRED PROVIDER ORGANIZ[place] (PPO[place] Jun 03, 2013 [id number] [phone] JOSEPHINE DiamondROSITA SPOUSE MEDICARE (WNR) MEDICARE (M) PART A Jul 04, 2016 PART A [id number] [phone] ELI GRIMM PATIENT MEDICARE (WNR) MEDICARE (M) PART B Jul 04, 2016 PART B [id number] RICHARDSO N,ELI PATIENT MEDICARE (WNR) MEDICARE (M) PART A Jul 04, 2016 PART A [id number] EMMASO N,ELI PATIENT MEDICARE (WNR) MEDICARE (M) PART B Jul 04, 2016 PART B [id number] EMMASO N,ELI PATIENT MEDICARE (WNR) MEDICARE (M) PART A Jul 04, 2016 PART A [id number] EMMASO N,ELI PATIENT MEDICARE (WNR) MEDICARE (M) PART B Jul 04, 2016 PART B [id number] EMMASO N,ELI PATIENT MEDICARE (WNR) MEDICARE (M) PART A Jul 04, 2016 PART A [id number] EMMASO N,ELI PATIENT MEDICARE (WNR) MEDICARE (M) PART B Jul 04, 2016 PART B [id number] [phone] EMMASO NHERMESY PATIENT PRIME THERAPEUTI CS RX PRESCRIPT ION RX PLAN Jun 03, 2013 [id number] [phone] EMMASO N,ELI PATIENT Selected Encounter This section includes the information on record at [place] for the Encounter. Date/Time Encounter Type Encounter Description Reason Provider Source October 22, 2023 11:06 AM FUNDUS PHOTOGRAPHY W/I&R OPTOMETRY ICD-10-CM H35.9 Unspecified retinal disorder MATTIE SMITH Redd Encounter Template Text not used by [place] Assessments - Encounter Diagnoses This section includes the primary and secondary diagnoses documented for the Encounter. Date/Time Primary/Secondary Diagnosis Diagnosis Name Provider Source October 22, 2023 11:14 AM PRIMARY Unspecified retinal disorder VIRA SMITH [facility] Plan of Treatment: Future Appointments (+ 6 months) and Future Tests (+/- 45 days) The Plan of Treatment section includes future care activities for the patient from all [place] treatmentfacilities. This section includes future appointments and future orders which are active, pending or scheduled. Future Appointments This section includes appointments that were scheduled to occur 6 months from the date of the Encounter, up to a maximum of 20 appointments. The data comes from all [place] treatment facilities. Appointment Date/Time Appointment Type Appointme nt Facility Name October 24, 2023 01:30 PM [facility] Nov 05, 2023 10:00 AM AMBULATORY - SURGERY [facility] Nov 12, 2023 11:00 AM AMBULATORY - MEDICINE [facility] Nov 21, 2023 01:00 PM AMBULATORY - NONE [facility] Dec 12, 2023 02:00 PM AMBULATORY - NONE [facility] Dec 17, 2023 11:00 AM AMBULATORY - SURGERY [facility] Dec 19, 2023 01:00 PM AMBULATORY - NONE [facility] Dec 19, 2023 03:00 PM AMBULATORY - MEDICINE [facility] Dec 23, 2023 10:00 AM AMBULATORY - MEDICINE [facility] Dec 26, 2023 01:00 PM AMBULATORY - NONE [facility] Dec 31, 2023 02:00 PM AM[facility]ULATORY - NONE [facility] Jan 02, 2024 02:00 PM AMBULATORY - NONE [facility] Jan 03, 2024 01:30 PM AMBULATORY - MEDICINE [facility] Jan 09, 2024 01:00 PM AMBULATORY - NONE [facility] Jan 22, 2024 01:15 PM AMBULATORY - MEDICINE [facility] Mar 19, 2024 04:30 PM AMBULATORY - MEDICINE [facility] Apr 08, 2024 02:30 PM AMBULATORY - MEDICINE [facility] Apr 16, 2024 07:30 AM AMBULATORY - MEDICINE [facility] Social History: Smoking Status (Most current) and Tobacco Use (All prior to encounter date) This section includes the most current, and the historical, smoking and tobacco- related health factors from the [place] facility where the Encounter took place. Current Smoking Status This section includes the most current smoking, or tobacco-related health factor, from the [place] facility where the Encounter took place. Date/Time Current Smoking Status Nuria garcia Feb 15, 2023 11:00 AM VA-TOBACCO USER EVERY DAY [facility] Tobacco Use History This section includes a history of the smoking, or tobacco-related health factors, that were collected on or before the date of the Encounter. The data comes from the [place] facility where the Encounter took place. 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 [facility] Feb 15, 2023 11:00 AM VA-TOBACCO USE MED NO [facility] Feb 15, 2023 11:00 AM VA-TOBACCO USE WI 30 MIN OF WAKEUP [facility] Feb 15, 2023 11:00 AM VA-TOBACCO USER EVERY DAY [facility] Feb 19, 2022 11:30 AM VA-TOBACCO DOESNT USE WI 30 MIN WAKEUP [facility] Feb 19, 2022 11:30 AM VA-TOBACCO USE 30 YEARS OR MORE [facility] Feb 19, 2022 11:30 AM VA-TOBACCO USE ADVICE [facility] Feb 19, 2022 11:30 AM 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 Date/Time Encounter Note(s) Provider Source October 22, 2023 11:06 AM OPHTHALMOLOGY NOTE : LOCAL TITLE: OPHTHALMOLOGY NOTE [facility] STANDARD TITLE: OPHTHALMOLOGY NOTE DATE OF NOTE: OCTOBER 22, 2023@11:06 ENTRY DATE: OCTOBER 22, 2023@11:06:24 AUTHOR: JAMAR SMITH EXP COSIGNER: URGENCY: STATUS: COMPLETED OCT (RNFL/MACULA/GCC) completed OU and available in Forum/ for provider review. Fundus photos obtained OU and available in Forum/ for provider review. /loreta/ JAMAR SMITH COA Jigman Signed: 10/22/2023 11:14 JAMAR SMITH [facility]
--- OUTSIDE RECORDS SUMMARY | 2024-07-30 10:57 | XMS_ITS | Encounter Summary ---
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 [place] Organization [facility] [place] Address [address] [place] [address] Care Team Providers Care Analyst Programmer Name Role Phone JESSICA KAY Primary Care Provider UnavailYANIV Gallegos Unavailable Unavailable JENY TAVAREZ Unavailable Unavailable ISAAC CHIN Unavailable Unavailable RYAN TORRES Unavailable Unavailable PAOLA SMITH Unavailable Unavailable ALEM LAURENT Unavailable Unavailable ELVIA ANTONIO Unavailable Unavailable EWS GARCIA Primary Care Provider Unavaila ble Insurance [...] [place]IV E [place] Jun 03, 2013 [id number] [phone] JOSEPHINE DiamondROSITA SPOUSE MEDICARE (WNR) MEDICARE (M) PART A Jul 04, 2016 PART A [id number] HERMES GRIMMY PATIENT MEDICARE (WNR) MEDICARE (M) PART B Jul 04, 2016 PART B [id number] HERMES GRIMMY PATIENT MEDICARE (WNR) MEDICARE (M) PART A Jul 04, 2016 PART A [id number] EMMASO N,ELI PATIENT MEDICARE (WNR) MEDICARE (M) PART B Jul 04, 2016 PART B [id number] EMMASO N,ELI PATIENT MEDICARE (WNR) MEDICARE (M) PART B Jul 04, 2016 PART B [id number] [phone] EMMASO N,ELI PATIENT MEDICARE (WNR) MEDICARE (M) PART A Jul 04, 2016 PART A [id number] [phone] RICHARDSO N,ELI PATIENT MEDICARE (WNR) MEDICARE (M) PART A Jul 04, 2016 PART A [id number] EMMASO N,ELI PATIENT MEDICARE (WNR) MEDICARE (M) PART B Jul 04, 2016 PART B [id number] [phone] JOSEPHINE NHERMESY PATIENT PRIME THERAPEUTI CS RX PRESCRIPT ION RX PLAN Jun 03, 2013 [id number] [phone] JOSEPHINE N,ELI PATIENT Selected Encounter This section includes the information on record at [place] for the Encounter. 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 Date/Time Primary/Secondary Diagnosis Diagnosis Name Provider Source May 22, 2024 10:57 AM PRIMARY Cerebellar stroke syndrome MARK BOBO [facility] Plan of Treatment: Future Appointments (+ 6 months) and Future Tests (+/- 45 days) The Plan of Treatment section includes future care activities for the patient from all [place] treatmentfacilities. This section includes future appointments and future orders which are active, pending or scheduled. Future Appointments This section includes appointments that were scheduled to occur 6 months from the date of the Encounter, up to a maximum of 20 appointments. The data comes from all [place] treatment facilities. Appointment Date/Time Appointment Type Appointme nt Facility Name Jul 31, 2024 10:15 AM AMBULATORY - MEDICINE [facility] Aug 28, 2024 02:00 PM AMBULATORY - MEDICINE [facility] Aug 28, 2024 02:30 PM AMBULATORY - MEDICINE [facility] Lab Results: +/- 30 days of the encounter This section includes the Chemistry and Hematology Lab Results on record with [facility] for the patient. Radiology Reports and Pathology Reports are provided separately, in subsequent sections. Lab Results This section contains the Chemistry/Hematology Results that were resulted 30 days before or 30 daysafter the date of the Encounter. Date/Time Source Result Type Result - Unit Interpretation Reference Range Comment May 20, 2024 02:14 PM [facility] URINALYSIS (ST[facility]-PB) Specimen Type: URINE No comment entered. Ordering Provider: ANDRES GARCIA Report Released Date/Time: May 20, 2024 08:32 AM Reporting Lab: [facility] [address] Performing Lab: [facility] #1 [facility] [address] URINE COLOR Light-Yellow Yellow U.BILIRUBIN Negative mg/dL Negative U.PH 7.0 5.0-8.0 APPEARANCE Clear Clear U.NITRITE Negative mg/dL Negative URN.GLUCOSE Normal mg/dL Negative URN.PROTEIN Negative mg/dL URN.UROBILINOGEN 2 mg/dL H Normal URN.BLOOD Negative mg/dL Negative-Tr jason URN.KETONES Negative mg/dL Negative-Tr jason URN.LEUK.EST. Negative mg/dL Negative-Tr jason URN.SPECIFIC GRAVITY 1.016 May 20, 2024 02:04 PM [facility] COMPREHENSIVE METABOLIC PANEL Specimen Type: PLASMA Comment: No hemolysis noted. Ordering Provider: ANDRES GARCIA Report Released Date/Time: May 20, 2024 08:32 AM Reporting Lab: [facility] [address] Performing Lab: [facility]1 [facility] [address] CREATININE 1.06 mg/dL 0.70-1.30 UREA NITROGEN 13.3 mg/dL 9.0-25.0 GLUCOSE 102 mg/dL H 72-99 SODIUM 140 meq/L 136-145 POTASSIUM 4.6 meq/L 3.5-5.0 CHLORIDE 106 meq/L 98-107 CARBON DIOXIDE 27 meq/L 22-31 CALCIUM 10.2 mg/dL 8.4-10.4 PROTEIN 7.1 g/dL 6.0-8.6 ALBUMIN 4.1 g/dL 3.4-5.0 TOTAL BILIRUBIN 0.6 mg/dL 0.2-1.2 ALKALINE PHOSPHATASE 96 U/L 40-150 AST/SGOT 19 U/L 5-34 ALT/SGPT 13 U/L 8-40 EGFR (CKD-EPI 2020) 76.92 >60 May 20, 2024 02:04 PM [facility] CBC Specimen Type: BLOOD No comment entered. Ordering Provider: ANDRES GARCIA Report Released Date/Time: May 20, 2024 08:32 AM Reporting Lab: [facility] [address] Performing Lab: [facility] [address] WBC 10.1 10*3/uL 3.6-11.2 RBC 4.67 10*6/uL 4.10-5.70 HGB 15.2 g/dL 13.1-16.8 HCT 46.8 38.2-48.4 MCV 100.2 fL H 80.0-100.0 MCH 32.5 pg 27.0-34.0 MCHC 32.5 g/dL L 33.0-36.0 PLT 212 10*3/uL 150-400 MPV 10.0 fL 7.5-11.2 RDW 13.8 11.8-15.1 LYMPHOCYTES, AUTO % 22 MONOCYTES, AUTO % 10 NEUTROPHILS, AUTO % 67 EOSINOPHILS, AUTO % 1 BASOPHILS, AUTO % 1 LYMPHOCYTES, ABSOLUTE 2.16 10*3/uL 0.77-4.50 MONOCYTES, ABSOLUTE 0.98 10*3/uL H 0.19-0.80 NEUTROPHILS, ABSOLUTE 6.71 10*3/uL 2.10-8.00 EOSINOPHILS, ABSOLUTE 0.11 10*3/uL 0.00-0.60 BASOPHILS, ABSOLUTE 0.06 10*3/uL 0.00-0.20 Encounter Notes: All associated encounter notes This section contains the clinical notes associated to the Encounter. Date/Time Encounter Note(s) Provider Source May 22, 2024 10:42 AM CONSULT: LOCAL TITLE: E-CONSULT NEUROLOGY OUTPT [facility] STANDARD TITLE: CONSULT DATE OF NOTE: MAY 22, 2024@10:42 ENTRY DATE: MAY 22, 2024@10:42:07 AUTHOR: DONTAE BOBO COSIGNER: URGENCY: STATUS: COMPLETED The reason for consult: The reason for consult: Per Dr. Garcia: please input input re: Continuing Plavix with starting Apixaban -- Patient had ischemic CVA in 2013 followed by finding of retinal emboli on optometry in October 2023. He underwent loop recorder implanttaion to look for embolic sources from the heart and was found to have A fib which is why PADR for apixaban was put in by PCP. He is on plavix (prescribed by non [facility] provider) and patient is obtaining it from non [facility] pharmacy. Indication for plavix is non cardiac (most likley ischemic CVA). He does not have any stents in his coronaries. Recommend to get Neuro inputs on whether to further conyinue plavix or not. I have reviewed pertinent CPRS documentation in the electronic medical record for this patient. The recommendations/findings offered are the result of information from the requesting provider and a chart review only. This is a 69-year-old with considerable cardiovascular risk factors including renal disease, hypertension, diabetes, tobacco use, obesity and atrial fibrillation. His BMI is 33. He is on the following medications: ACTIVE [facility] MEDICATIONS Active Outpatient Medications (including Supplies): Active Outpatient Medications Status 1) ALBUTEROL 90MCG (CFC-F) 200D ORAL INHL INHALE 2 PUFFS ORAL ACTIVE INHALATION FOUR TIMES A DAY SHAKE WELL. RINSE MOUTHPIECE FREQUENTLY TO PREVENT CLOGGING. Indication: FOR COPD 2) APIXABAN 5MG TAB TAKE ONE TABLET BY MOUTH TWICE A DAY ACTIVE Indication: FOR ANTICOAGULATION 3) BUPROPION HCL 150MG 12HR SA TAB TAKE ONE TABLET BY MOUTH ACTIVE TWICE A DAY FOR . SWALLOW WHOLE - DO NOT CRUSH OR CHEW. Indication: SMOKING CESSATION 4) METHOCARBAMOL 500MG TAB TAKE 1 TABLET BY MOUTH THREE TIMES A ACTIVE DAY NEEDED Indication: FOR MUSCLE SPASM Active Non-VA Medications Status 1) Non-VA CLOPIDOGREL BISULFATE 75MG TAB 75MG BY MOUTH ONCE A ACTIVE DAY 2) Non-VA LISINOPRIL 40MG TAB 20MG BY MOUTH ONCE A DAY ACTIVE 3) Non-VA ROSUVASTATIN CA 40MG TAB 20MG BY MOUTH EVERY EVENING ACTIVE 4) Non-VA QITAUHOOKWJO84.5/VILANTEROL 25MCG 30D INH 1 PUFF ORAL ACTIVE INHALATION ONCE A DAY 8 Total Medications Diagnosis and/or Impression: The question is whether or not he needs to continue his Plavix. Unfortunately this is not a straightforward answer since some neurologists do recommend concurrent use of aspirin or Plavix with a NOAC with the thought that the anti=thrombotic affects stroke from small vessel disease and the NOAC from a-fib. However, keep in mind that the number needed to treat to prevent a single stroke from Plavix is approximately 100 (similar to aspirin) and therefore the reality is that in relevant importance to controlling his other modifiable risk factors the question of whether or not to continue Plavix is of relatively minor consequence. As a comparison the number needed to treat to prevent stroke by controlling diabetes and hypertension is 4, the number needed to treat prevent a stroke by quitting smoking is 2, and there is a 5% increase in relative risk of stroke for every single point of BMI above a BMI of 20 so weight loss will also significantly reduce his risk of stroke. And compared to these examples Plavix with a number needed to treat of 100 is only a tiny part of his stroke prevention regiment. Also, the use of Plavix in conjunction with other blood thinners including aspirin and especially anticoagulants results and a significant increase in the risk of hemorrhage. Therefore, I do not routinely recommend concurrent use of Plavix for a prolonged period of time with other blood thinners such as anticoagulants and even aspirin. There is no good clinical data that the addition of Plavix reduces the risk of stroke above aspirin alone or an anticoagulant such as he is taking. Therefore my recommendations would be to discontinue the Plavix. There is no way to reduce his risk of stroke to that of the average population on account of his other risk factors and so I would strongly recommend working on his other modifiable cardiovascular risk factors which have a much bigger impact on stroke prevention than Plavix. If he is still smoking he should definitely be encouraged to stop. Encourage weight loss with eating a healthy diet. Continue control of his diabetes, hypertension and hypercholesterolemia. Please let me know if you have any further questions. moderate MDM 11 minutes to 20 minutes spent reviewing patient's medical records /loreta/ Dontae Bobo MD Neurology Staff Physician Signed: 05/22/2024 10:57 DONTAE BOBO [facility]
--- OUTSIDE RECORDS SUMMARY | 2024-07-30 10:58 | XMS_ITS | Encounter Summary ---
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 Organization [facility] [place] Address [address] [place] [address] Care Team Providers Care Geological Specialist Name Role Phone JESSICA KAY Primary Care Provider UnavailYANIV Gallegos Unavailable Unavailable JENY TAVAREZ Unavailable Unavailable ELSY, SIAAC Unavailable Unavailable RYAN TORRES Unavailable Unavailable PAOLA [...] ACTIV E [place] HIGH Jun 03, 2013 [id number] [phone] JOSEPHINE DiamondROSITA SPOUSE MEDICARE (WNR) MEDICARE (M) PART A Jul 04, 2016 PART A [id number] [phone] HERMES GRIMMY PATIENT MEDICARE (WNR) MEDICARE (M) PART B Jul 04, 2016 PART B [id number] RICHARDSO N,ELI PATIENT MEDICARE (WNR) MEDICARE (M) PART A Jul 04, 2016 PART A [id number] RICHARDSO N,ELI PATIENT MEDICARE (WNR) MEDICARE (M) PART B Jul 04, 2016 PART B [id number] EMMASO N,ELI PATIENT MEDICARE (WNR) MEDICARE (M) PART A Jul 04, 2016 PART A [id number] RICHARDSO N,ELI PATIENT MEDICARE (WNR) MEDICARE (M) PART B Jul 04, 2016 PART B [id number] RICHARDSO N,ELI PATIENT MEDICARE (WNR) MEDICARE (M) PART B Jul 04, 2016 PART B [id number] [phone] EMMASO N,ELI PATIENT MEDICARE (WNR) MEDICARE (M) PART A Jul 04, 2016 PART A [id number] EMMASO N,ELI PATIENT PRIME THERAPEUTI CS RX PRESCRIPT ION RX PLAN Jun 03, 2013 [id number] [phone] EMMASO N,ELI PATIENT Selected Encounter This section includes the information on record at [place] for the Encounter. Date/Time Encounter Type Encounter Description Reason Provider Source Aug 30, 2023 03:00 PM OFFICE O/P EST MOD 30 MIN PULMONARY/CHEST ICD-10-CM J44.9 Chronic obstructive pulmonary disease, unspecified FANNIE LUTHER Redd Encounter Template Text not used by [place] Assessments - Encounter Diagnoses This section includes the primary and secondary diagnoses documented for the Encounter. 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 This section includes future appointments and future orders which are active, pending or scheduled. Future Appointments This section includes appointments that were scheduled to occur 6 months from the date of the Encounter, up to a maximum of 20 appointments. The data comes from all [facility]. Appointment Date/Time Appointment Type Appointme nt Facility Name Sep 10, 2023 11:00 AM AMBULATORY - MEDICINE [facility] Sep 18, 2023 01:00 PM AMBULATORY - MEDICINE [facility] Sep 18, 2023 02:00 PM AMBULATORY - MEDICINE [facility] Sep 18, 2023 02:30 PM AMBULATORY - SURGERY [facility] October 10, 2023 01:30 PM AMBULATORY - MEDICINE [facility] October 22, 2023 10:00 AM [facility] October 24, 2023 01:30 PM AMBULATORY - MEDICINE [facility] Nov 05, 2023 10:00 AM AMBULATORY - SURGERY [facility] Nov 12, 2023 11:00 AM AMBULATORY - MEDICINE [facility] Nov 21, 2023 01:00 PM AMBULATORY - NONE [facility] Dec 12, 2023 02:00 PM AMBULATORY - NONE [facility] Dec 17, 2023 11:00 AM AMBULATORY - SURGERY [facility] Dec 19, 2023 01:00 PM AMBULATORY - NONE [facility] Dec 19, 2023 03:00 PM AMBULATORY - MEDICINE [facility] Dec 23, 2023 10:00 AM AMBULATORY - MEDICINE [facility] Dec 26, 2023 01:00 PM AMBULATORY - NONE [facility] [facility] Dec 31, 2023 02:00 PM AMBULATORY - NONE [facility] Jan 02, 2024 02:00 PM AMBULATORY - NONE [place] [facility] Jan 03, 2024 01:30 PM AMBULATORY - MEDICINE [facility] Jan 09, 2024 01:00 PM AMBULATORY - NONE [facility] [facility] Lab Results: +/- 30 days of the encounter This section includes the Chemistry and Hematology Lab Results on record with [place] for the patient. Radiology Reports and Pathology Reports are provided separately, in subsequent sections. Lab Results This section contains the Chemistry/Hematology Results that were resulted 30 days before or 30 daysafter the date of the Encounter. Date/Time Source Result Type Result - Unit Interpretation Reference Range Comment Aug 28, 2023 03:23 PM [facility] I-STAT, CREAT (STL-MA) Specimen Type: BLOOD Comment: Test Performed by: [id number] Meter #: [id number] Ordering Provider: STANTON GARCIA Report Released Date/Time: Aug 28, 2023 04:17 PM Reporting Lab: [place] [address] [facility] [id number] Performing Lab: [place] [address] [facility] [id number] I-STAT, CREAT (STL-MA) 1.0 mg/dL 0.7-1.3 Vital Signs: All taken on the encounter date This section contains inpatient and outpatient Vital Signs collected on the date of the Encounter. Date/Time Temperature Pulse Blood Pressure Respiratory Rate SP02 Pain Height Weight Body Mass Index Source Aug 30, 2023 02:51 PM 98.2 67 135/92 16 94 0 264 33 [facility] Radiology Reports: +/- 30 days of the encounter Radiology Reports For cases when an order for radiology services may have been completed prior to the date of the Encounter, the report list includes the Radiology Reports that were completed up to 30 days before dateof the Encounter. For cases when an order for radiology services may have been completed after the date of the Encounter, the report list also includes the Radiology Reports that were completed up to30 days after date of the Encounter. The data comes from all [place] treatment facilities. Date/Time Radiology Report Provider Source Sep 18, 2023 03:48 PM FOOT,RIGHT,3 VIEWS OR MORE: ELI RUELAS [id number] -[id number] M Exm Date: SEP 18, 2023@15:48 Req Phys: WES GARCIA Loc: [facility] E3 PCP (Req'g Loc) Img Loc: [facility] Service: Unknown (Case [id number] COMPLETE) FOOT,RIGHT,3 VIEWS OR MORE (RAD Detailed) CPT:90509 Proc Modifiers : RIGHT Reason for Study: Right foot pain Clinical History: Right foot pain, localized at instep Report Status: Verified Date Reported: SEP 21, 2023 Date Verified: SEP 21, 2023 Core Java Software Engineer E-Sig:/ES/Amy Trevino MD Report: FINDINGS: There is mild hallux valgus deformity and spur formation is seen at plantar aspect. No other significant bone or joint abnormality is demonstrated. No significant acute findings or evidence of recent bone injury. Impression: Mild hallux valgus deformity and calcaneal spur is noted without significant acute findings. Primary Interpreting Staff: Amy Trevino MD, Radiologist (Core Java Software Engineer) /QMB AMY TREVINO [facility] Aug 28, 2023 03:[address] THORAX, DIAGNOS TIC, W/CONTRAST: ELI RUELAS [id number] -[id number] Ex Date: AUG 28, 2023@15:09 Req Phys: ALEM LUTHER Loc: [facility] FL[facility] (Req'g Loc) Img Loc: [facility] Service: Unknown (Case [id number] COMPLETE) CT THORAX, DIAGNOSTIC, W/CONTRAS(CT Detailed) CPT:02311 Contrast Media : Non-ionic Iodinated Reason for Study: Jennifer Ca Surveillance RML resection Clinical History: Responsible Attending: Shante Attending Contact Number: [phone] Resident Contact Number: Allergies listed in CPRS chart: CHANTIX Creatinine: CREATININE 1.24 mg/dL 02/19/2022 11:04 /eGFR: STL EGFR (within one year). CREATININE 1.24 mg/dL (02/19/22 11:04) Wt: 257.6 lb [116.85 kg] (08/17/2022 11:29) History of: Renal failure, chronic or acute renal disease: YES Report Status: Verified Date Reported: AUG 29, 2023 Date Verified: AUG 29, 2023 Core Java Software Engineer E-Sig:/ES/Oswald Coronado MD Report: CASE #: [id number] DATE:08/28/2023 4:30 PM CLINICAL HISTORY:Jennifer Ca Surveillance RML resection COMPARISON: 08/30/2022, 03/16/2022, 09/08/2021 TECHNIQUE: CT THORAX, DIAGNOSTIC, W/CONTRAST FINDINGS: Postsurgical changes in the right lung are stable. There is mild emphysema. No new or enlarging pulmonary nodules are identified. There is slight left-sided pleural thickening inferiorly with adjacent atelectasis/scarring, not significantly changed. The visualized paratracheal and perihilar lymph nodes are not significantly changed. No there is arteriosclerosis of the aorta and its branches to include the coronary arteries. The ascending aorta is mildly ectatic measuring 4.1 cm transverse. There is no pulmonary embolism. No acute upper abdominal process on this limited exam. Degenerative changes of the spine without fracture. Impression: Stable postsurgical changes in the right lung with no new nodules or lymphadenopathy. Stable appearance of the left posterior pleural space and adjacent lower lobe. Mild emphysema. Arteriosclerosis of the aorta and its branches to include the coronary arteries. Ectatic ascending aorta measures 4.1 cm transverse. Primary Interpreting Staff: Oswald Coronado MD, Radiologist (Core Java Software Engineer) /OSWALD PEREIRA [facility] Encounter Notes: All associated encounter notes This section contains the clinical notes associated to the Encounter. Date/Time Encounter Note(s) Provider Source Aug 30, 2023 02:53 PM PULMONARY OUTPATIE NT NOTE: LOCAL TITLE: PULMONARY OUTPATIENT FOLLOW UP ST STANDARD TITLE: PULMONARY OUTPATIENT NOTE DATE OF NOTE: AUG 30, 2023@14:53 ENTRY DATE: AUG 30, 2023@14:53:33 AUTHOR: ALEM LUTHER EXP COSIGNER: URGENCY: STATUS: COMPLETED PULMONARY OUTPATIENT FOLLOW UP ST Has ADDENDA Interventional pulm outpatient f/u visit Assessment and plan: 1. Stage IA non-small cell lung cancer of the right middle lobe status post curative resection August 2020 CCT w cont Feb 2021 done at OSH--report w no concerning findings August 2021--no evidence of recurrent disease. Mar 2022--no recurrence per my read August 2022--stable August 2023--stable Then yearly every August until 2025. Next has been ordered. 2. Tobacco use--counseled Has tried wellbutrin. Helpful for awhile but stopped working. Can't use Chantix. NRT ok if patch Will continue to decrease use. Smokes menthol so may stop if discontiued Will ask [facility] ER[facility] SPECIALIST to assist with smoking cessation. Discussed wellbutrin +accupuncture in addition to patch. 3. Moderate COPD--Gold 2A Anoro Albuterol 4. Immunizations are up-to-date including Covid. Aware of yearly flu recs RTC pulmonary Lostephene August [address] scan. Ordered Glenda--could you pls do a phone/vvc consult with this for smoking cessation? He has cut back a lot and is very motivated. Interested in accupuncture which we can combine with wellbutrin. TY ~~~~~~~~~~~~~~~~~~~~~~~~~~~~ ~~~~~~~~~~~~~~~~~~~~~~~~~~~~ ~~~~~~~~~~~ Interval hx August 2023: Export returns for follow up. He is using all inhalers as directed. Uses albuterol rarely. smoking 10-12 cigs per day. Interested in quitting. Has tried Chantix but had very vivid dreams. Recently had nightmare and fell out of bed. Has also tried wellbutrin but did not work. Gum gives him nausea. Willing to try wellbutrin and accupuncture. Will make referral to [facility]. Since last seen, no AECOPD, no hospitalizations for breathing problems, ER/UC visits, need for steroids, abx or other tx for pulmonary infections. Interval hx Feb 2023: Doing well. No new complaints. No hospitalizations. No steroids. No change in sx. Active. No LWEIS. Using inhalers correctly. Anoro q daily and albuterol infrequently. Not using Pulmicort. Smoking 6 cigs per day. Only smokes menthols and does not like others. Hopes to quit if dc'd. he remains on wellbutrin and has used NRT in past. Restricted in terms of not smoking around or in house or in car. That helps. Delayed am cig for some time w/o difficulty. Still gets pleasure from smoking but wants to quit. 10/18/2022 ADDENDUM STATUS: COMPLETED Patient called back and was given results of CT scan. Patient was never rescheduled for August 10 so RTC placed. 03/16/2022 ADDENDUM STATUS: COMPLETED Ordered Pulmicort MDI due to insurance coverage (Asmanex is not covered). Order call [facility] pharmacy. Interval hx August 2021 Since lst seen doing well from pulm perspective. Recently in [place] and walked > 10k steps [place] w[place]o issues. However, 1 mo ago noted ^mucus. Still using anoro. No combivent. Not on ICS. Used albuterol in past. Requested call in Rx [facility] copays are lower. Smoking 4-5 cigs per day. First at 9:30. Awakens at 9 am. Does not smoke in the house or in car. Does not smoke once comes home (she is nonsmoker). He smoked a lot less in [place] when busy and around grandkids. Wellbutrin helped nut only taking 1x day, o/w too tired. Discussed different strategies. He is committed to continue efforts. Had been working out regularly until fell and broke left arm. Tried to go back recently but painful. Discussed w MD who told him to wait a bit longer. he is able to do bike. I asked him to do cardio for now. Interval hx September 2021: Since last seen his exercise tolerance is significantly improved. He is working out daily. He has no new complaints. Specifically no anorexia, hemoptysis, unexplained weight loss. He had a CT chest today. We reviewed the images. He smoking about 4 to 6 cigarettes/day. Previously he was smoking 2 a day. He found Wellbutrin helpful and had no adverse effects. Will refill today. Past pulm hx: Briefly, 65 w presumed stage IA NSCLC of the right middle lobe s/p VATS resection at [facility] in [place], [place] by Dr. Rivera and followed by Dr. Palencia (puttying and calking supervisor) also in [facility]. Still smoking. Approximately half a pack a day. Nicotine patches and lozenges unsuccessful in the past. Had success with Wellbutrin. He states he is dyspneic walking from the parking lot to the clinic. This has been slowly improving since the surgery. He still not back at his baseline. We discussed rehabilitation. He is interested. He was on amiodarone briefly after the surgery for perioperative atrial fibrillation. This was stopped after 1 month. Other relevant medical history includes a stroke in 2013 and treated hepatitis C. Pulmonary pertinent Meds: Active Non-VA Medications Status 1) Non-VA ALBUTEROL 90MCG (CFC-F) 200D ORAL INHL 2 PUFFS ACTIVE BY ORAL INHALATION FOUR TIMES A DAY NEEDED 2) Non-VA CLOPIDOGREL BISULFATE 75MG TAB 75MG BY MOUTH ACTIVE ONCE A DAY 5) Non-VA BONTQJLUQYEW69.5/VILANTEROL2 5MCG 30D INH 1 ACTIVE PUFF ORAL INHALATION ONCE A DAY On exam he is in no acute distress; he is adequate air movement. His saturation is 94% on RA He is clear to auscultation bilaterally; no wheeze and no crackles. Regular rate and rhythm. No edema Data: 08/28/23 CCT Impression: Stable postsurgical changes in the right lung with no new nodules or lymphadenopathy. Stable appearance of the left posterior pleural space and adjacent lower lobe. Mild emphysema. Arteriosclerosis of the aorta and its branches to include the coronary arteries. Ectatic ascending aorta measures 4.1 cm transverse. PFTS August 2022 FEV1/FVC 63 FEV1 2.27L (55%) FVC 3.6L (65%) No BD effect SVC 3.82L (69%) TLC 77% RV91% DLCO 34% /es/ ALEM LUTHER MD, MPH Interventional Pulmonology Signed: 08/30/2023 15:30 Receipt Acknowledged By: 09/04/2023 10:38 /loreta/ GLENDA SUTHERLAND APRN NURSE PRACTITIONER, SURGERY SERVICE CCT 09/02/2023 ADDENDUM STATUS: COMPLETED Pt called, no Answer. VM left With call back number. Left VM Informing pt to reach out and we can discuss all the opportunities that the [place] has for smoking cessation. /loreta/ GLENDA SUTHERLAND APRN NURSE PRACTITIONER, SURGERY SERVICE CCT Signed: 09/02/2023 14:59 09/04/2023 ADDENDUM STATUS: COMPLETED Called pt and pt would like to make a VVC appointment with provider to discuss Tobacco Cessation. Order placed. /loreta/ GLENDA SUTHERLAND APRN NURSE PRACTITIONER, SURGERY SERVICE CCT Signed: 09/04/2023 08:31 ALEM LUTHER [facility]
--- OUTSIDE RECORDS SUMMARY | 2024-07-30 10:58 | XMS_ITS | Referral Summary ---
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
--- OUTSIDE RECORDS SUMMARY | 2024-07-30 10:58 | XMS_ITS | Encounter Summary ---
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 [facility] Address [address] [place] [address] Care Team Providers Care Gasser Machine Operator Name Role Phone JESSICA KAY Primary Care [...] ACTIV E [place] HIGH Jun 03, 2013 [id number] [phone] JOSEPHINE DiamondROSITA SPOUSE MEDICARE (WNR) MEDICARE (M) PART B Jul 04, 2016 PART B [id number] HERMES GRIMMY PATIENT MEDICARE (WNR) MEDICARE (M) PART A Jul 04, 2016 PART A [id number] [phone] ELI GRIMM PATIENT MEDICARE (WNR) MEDICARE (M) PART A Jul 04, 2016 PART A [id number] EMMASO N,ELI PATIENT MEDICARE (WNR) MEDICARE (M) PART B Jul 04, 2016 PART B [id number] EMMASO N,ELI PATIENT MEDICARE (WNR) MEDICARE (M) PART B Jul 04, 2016 PART B [id number] [phone] EMMASO N,ELI PATIENT MEDICARE (WNR) MEDICARE (M) PART A Jul 04, 2016 PART A [id number] RICHARDSO N,ELI PATIENT MEDICARE (WNR) MEDICARE (M) PART A Jul 04, 2016 PART A [id number] EMMASO N,ELI PATIENT MEDICARE (WNR) MEDICARE (M) PART B Jul 04, 2016 PART B [id number] JOSEPHINE NHERMESY PATIENT PRIME THERAPEUTI CS RX PRESCRIPT ION RX PLAN Jun 03, 2013 [id number] [phone] EMMASO N,ELI PATIENT Selected Encounter This section includes the information on record at [place] for the Encounter. Date/Time Encounter Type Encounter Description Reason Pro vider Source Apr 16, 2024 07:30 AM Outpatient Encounter CARDIAC CATHETERIZATION [facility] Encounter Template Text not used by [place] Plan of Treatment: Future Appointments (+ 6 months) and Future Tests (+/- 45 days) The Plan of Treatment section includes future care activities for the patient from all [place] treatmentfacilities. This section includes future appointments and future orders which are active, pending or scheduled. Future Appointments This section includes appointments that were scheduled to occur 6 months from the date of the Encounter, up to a maximum of 20 appointments. The data comes from all [place] treatment facilities. Appointment Date/Time Appointment Type Appointme nt Facility Name May 20, 2024 01:00 PM [facility] - [facility] Jul 31, 2024 10:15 AM [facility] Aug 28, 2024 02:00 PM [facility] Aug 28, 2024 02:30 PM [facility] Lab Results: +/- 30 days of the encounter This section includes the Chemistry and Hematology Lab Results on record with [place] for the patient. Radiology Reports and Pathology Reports are provided separately, in subsequent sections. Lab Results This section contains the Chemistry/Hematology Results that were resulted 30 days before or 30 daysafter the date of the Encounter. Date/Time Source Result Type Result - Unit Interpretation Reference Range Comment Apr 08, 2024 03:39 PM [facility] MICRAL/CREAT PROFILE (STL) Specimen Type: URINE No comment entered. Ordering Provider: CIERRA GARCIA RADHA Report Released Date/Time: Apr 08, 2024 08:39 AM Reporting Lab: [facility] [place] [address] Performing Lab: [facility] [address] [place] [address] URINE ALBUMIN (PB-STL) 8 mg/L No range refer to micral/crea t ratio uACR (STL) 6 mg/g 0-29 CREATININE URINE/OTHERS 139.8 mg/dL 63.0-166.0 Apr 08, 2024 03:39 PM [facility] URINALYSIS (STL-PB) Specimen Type: URINE No comment entered. Ordering Provider: ANDRES GARCIA Report Released Date/Time: Apr 08, 2024 08:39 AM Reporting Lab: [facility] [place] [address] Performing Lab: [facility] [place] [address] URINE COLOR Yellow Yellow U.BILIRUBIN Negative mg/dL Negative U.PH 6.5 5.0-8.0 APPEARANCE Clear Clear U.NITRITE Negative mg/dL Negative URN.GLUCOSE Normal mg/dL Negative URN.PROTEIN Negative mg/dL URN.UROBILINOGEN 2 mg/dL H Normal URN.BLOOD Negative mg/dL Negative-Tr jason URN.KETONES Negative mg/dL Negative-Tr jason URN.LEUK.EST. Negative mg/dL Negative-Tr jason URN.SPECIFIC GRAVITY 1.023 Apr 08, 2024 03:32 PM [facility] CBC Specimen Type: BLOOD No comment entered. Ordering Provider: CIERRA GARCIA RADHA Report Released Date/Time: Apr 08, 2024 08:39 AM Reporting Lab: [facility] [phone] Performing Lab: [facility] [place] [phone] WBC 9.3 10*3/uL 3.6-11.2 RBC 4.43 10*6/uL 4.10-5.70 HGB 14.6 g/dL 13.1-16.8 HCT 44.4 38.2-48.4 MCV 100.2 fL H 80.0-100.0 MCH 33.0 pg 27.0-34.0 MCHC 32.9 g/dL L 33.0-36.0 PLT 217 10*3/uL 150-400 MPV 9.8 fL 7.5-11.2 RDW 14.0 11.8-15.1 LYMPHOCYTES, AUTO % 21 MONOCYTES, AUTO % 9 NEUTROPHILS, AUTO % 67 EOSINOPHILS, AUTO % 1 BASOPHILS, AUTO % 1 LYMPHOCYTES, ABSOLUTE 1.99 10*3/uL 0.77-4.50 MONOCYTES, ABSOLUTE 0.81 10*3/uL H 0.19-0.80 NEUTROPHILS, ABSOLUTE 6.26 10*3/uL 2.10-8.00 EOSINOPHILS, ABSOLUTE 0.12 10*3/uL 0.00-0.60 BASOPHILS, ABSOLUTE 0.08 10*3/uL 0.00-0.20 Apr 08, 2024 03:32 PM [facility] HGA1C Specimen Type: BLOOD No comment entered. Ordering Provider: CIERRA GARCIA RADHA Report Released Date/Time: Apr 08, 2024 08:39 AM Reporting Lab: [facility] [phone] Performing Lab: [facility] [place] [phone] HGA1C 6.3 H 4.0-6.0 Apr 08, 2024 03:32 PM [facility] VITAMIN D, 25-HYDROXY Specimen Type: SERUM No comment entered. Ordering Provider: CIERRA GARCIA RADHA Report Released Date/Time: Apr 08, 2024 08:39 AM Reporting Lab: [facility] [place] [address] Performing Lab: [facility] [place] [address] VITAMIN D, 25-HYDROXY 33.1 ng/mL 30-96 Apr 08, 2024 03:32 PM [facility] TSH (MA-PB) Specimen Type: SERUM No comment entered. Ordering Provider: CIERRA GARCIA RADHA Report Released Date/Time: Apr 08, 2024 08:39 AM Reporting Lab: [facility] [place] [address] Performing Lab: [facility] [place] [address] TSH 1.120 u[IU]/mL 0.470-5.000 Apr 08, 2024 03:32 PM [facility] LIPID PANEL (STL) Specimen Type: PLASMA Comment: No hemolysis noted. Ordering Provider: CIERRA GARCIA RADHA Report Released Date/Time: Apr 08, 2024 08:39 AM Reporting Lab: [facility] [place] [address] Performing Lab: [facility] [place] [address] CHOLESTEROL 147 mg/dL 0-200 TRIGLYCERIDE 110 mg/dL 0-150 CALCULATED LDL 90 mg/dL See Interp HDL(New) 35 mg/dL L > 40 Apr 08, 2024 03:32 PM [facility] COMPREHENSIVE METABOLIC PANEL Specimen Type: PLASMA Comment: No hemolysis noted. Ordering Provider: CIERRA GARCIA RADHA Report Released Date/Time: Apr 08, 2024 08:39 AM Reporting Lab: [facility] [place] [address] Performing Lab: [facility] [place] [address] CREATININE 1.07 mg/dL 0.70-1.30 UREA NITROGEN 11.6 mg/dL 9.0-25.0 GLUCOSE 102 mg/dL H 72-99 SODIUM 141 meq/L 136-145 POTASSIUM 4.2 meq/L 3.5-5.0 CHLORIDE 105 meq/L 98-107 CARBON DIOXIDE 27 meq/L 22-31 CALCIUM 10.3 mg/dL 8.4-10.4 PROTEIN 7.4 g/dL 6.0-8.6 ALBUMIN 3.9 g/dL 3.4-5.0 TOTAL BILIRUBIN 0.4 mg/dL 0.2-1.2 ALKALINE PHOSPHATASE 91 U/L 40-150 AST/SGOT 12 U/L 5-34 ALT/SGPT 13 U/L 8-40 EGFR (CKD-EPI 2020) 76.06 >60 Radiology Reports: +/- 30 days of the [...] the Encounter. The data comes from all [place] treatment facilities. Date/Time Radiology Report Provider Source Apr 08, 2024 03:44 PM KNEE,RIGHT 3 VIEWS : ELI RUELAS [id number] -[id number] M Exm Date: APR 08, 2024@15:44 Req Phys: WES GARCIA Pat Loc: [facility] P[facility] (Req'g Loc) Img Loc: [facility] Service: [facility], [facility] [address] [place] [address] (Case [id number] COMPLETE) KNEE,RIGHT 3 VIEWS (RAD Detailed) CPT:83637 Proc Modifiers : RIGHT Reason for Study: Worsening knee pain Clinical History: Worsening knee pain Report Status: Verified Date Reported: APR 09, 2024 Date Verified: APR 09, 2024 Brief Writer E-Sig:/ES/MARIAN AMBROSE MD Report: Case #: [id number]. Right Knee Examination. Finding: AP and lateral views of the right knee examination followed by sunrise view of the patella shows no fracture-dislocation. No evidence of lytic or blastic bony lesion. No evidence of suprapatellar effusion or soft tissue swelling. No radiopaque foreign body or abnormal calcification. Impression: No fracture-dislocation or arthritic change. Primary Interpreting Staff: MARIAN AMBROSE MD, Staff Physician - Radiologist (Brief Writer) /MARIAN FORBES [facility] Apr 08, 2024 03:44 PM KNEE,LEFT, 3 VIEWS : ELI RUELAS [id number] -1955 M Exm Date: APR 08, 2024@15:44 Req Phys: WES GARCIA Pat Loc: [facility] PCP (Req'g Loc) Img Loc: [facility] Service: [address] [address] (Case [id number] COMPLETE) KNEE,LEFT, 3 VIEWS (RAD Detailed) CPT:70059 Proc Modifiers : LEFT Reason for Study: Worsening knee pain Clinical History: Worsening knee pain Report Status: Verified Date Reported: APR 09, 2024 Date Verified: APR 09, 2024 Brief Writer E-Sig:/ES/MARIAN AMBROSE MD Report: Case #: [id number]. Left Knee Examination. Finding: AP and lateral views of the left knee examination followed by sunrise view of the patella shows no fracture-dislocation. No evidence of lytic or blastic bony lesion. No evidence of suprapatellar effusion or soft tissue swelling. No radiopaque foreign body or abnormal calcification. Impression: No fracture-dislocation or arthritic change. Primary Interpreting Staff: MARIAN AMBROSE MD, Staff Physician - Radiologist (Brief Writer) /MARIAN FORBES [facility] Encounter Notes: All associated encounter notes This section contains the clinical notes associated to the Encounter. Date/Time Encounter Note(s) Provider Source Apr 16, 2024 07:56 AM CARDIOLOGY DIAGNOSTIC STUDY REPORT: LOCAL TITLE: CP ELECTROPHYSIOLOGY REPORT STL STANDARD TITLE: CARDIOLOGY DIAGNOSTIC STUDY REPORT DATE OF NOTE: APR 16, 2024@07:56:20 ENTRY DATE: APR 16, 2024@07:56:20 AUTHOR: CLINICAL,DEVICE PRO EXP COSIGNER: URGENCY: STATUS: COMPLETED PROCEDURE SUMMARY CODE: Machine Resulted DATE/TIME PERFORMED: APR 16, 2024@07:30 DOCUMENT IN [facility] SEE FULL REPORT IN [facility] Administrative Closure: 04/16/2024 by: CLINICAL,DEVICE PROXY SERVICE CLINICAL,DEVICE PROXY SERVICE [facility]
--- OUTSIDE RECORDS SUMMARY | 2024-07-30 10:58 | XMS_ITS | Encounter Summary ---
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 Organization [facility] [place] Address [address] [place] [address] Care Team Providers Care Education Instructor Name Role Phone JESSICA KAY Primary Care Provider UnavailYANIV Gallegos Unavailable Unavailable JENY TAVAREZ Unavailable Unavailable ELSY, ISAAC Unavailable Unavailable RYAN TORRES Unavailable Unavailable PAOLA SMITH Unavailable Unavailable ALEM LAURENT Unavailable Unavailable ELVIA ANTONIO Unavailable Unavailable CLAUDIA CAMPA Primary Care Provider Unavaila ble Insurance Providers: [...] ACTIV E [place] Jun 03, 2013 [id number] JOSEPHINE DiamondROSITA SPOUSE MEDICARE (WNR) MEDICARE (M) PART A Jul 04, 2016 PART A [id number] HERMES GRIMMY PATIENT MEDICARE (WNR) MEDICARE (M) PART B Jul 04, 2016 PART B [id number] RICHARDSO N,ELI PATIENT MEDICARE (WNR) MEDICARE (M) PART A Jul 04, 2016 PART A [id number] EMMASO N,ELI PATIENT MEDICARE (WNR) MEDICARE (M) PART B Jul 04, 2016 PART B [id number] EMMASO N,ELI PATIENT MEDICARE (WNR) MEDICARE (M) PART A Jul 04, 2016 PART A [id number] EMMASO N,ELI PATIENT MEDICARE (WNR) MEDICARE (M) PART B Jul 04, 2016 PART B [id number] [phone] RICHARDSO N,ELI PATIENT MEDICARE (WNR) MEDICARE (M) PART A Jul 04, 2016 PART A [id number] EMMASO N,ELI PATIENT MEDICARE (WNR) MEDICARE (M) PART B Jul 04, 2016 PART B [id number] EMMASO N,ELI PATIENT PRIME THERAPEUTI CS RX PRESCRIPT ION RX PLAN Jun 03, 2013 [id number] [phone] EMMASO N,ELI PATIENT Selected Encounter This section includes the information on record at [place] for the Encounter. Date/Time Encounter Type Encounter Description Reason Provider Source Jan 22, 2024 12:46 PM OFFICE O/P EST LOW 20 MIN NON-OR ANESTHESIA PROCEDURES ICD-10-CM Z01.818 Encounter for other preprocedural examination TAMIKO TOVAR [facility] Encounter Template Text not used by [place] Assessments - Encounter Diagnoses This section includes the primary and secondary diagnoses documented for the Encounter. Date/Time Primary/Secondary Diagnosis Diagnosis Name Provider Source Jan 22, 2024 12:53 PM PRIMARY Encounter for other preprocedural examination TAMIKO TOVAR [facility] Jan 22, 2024 12:53 PM SECONDARY Encounter for other specified surgical aftercare TAMIKO TOVAR [facility] Plan of Treatment: Future Appointments (+ 6 months) and Future Tests (+/- 45 days) The Plan of Treatment section includes future care activities for the patient from all [place] treatmentfacilities. This section includes future appointments and future orders which are active, pending or scheduled. Future Appointments This section includes appointments that were scheduled to occur 6 months from the date of the Encounter, up to a maximum of 20 appointments. The data comes from all [facility]. Appointment Date/Time Appointment Type Appointme nt Facility Name Mar 19, 2024 04:30 PM AMBULATORY - MEDICINE [facility] Apr 08, 2024 02:30 PM [facility]ORY [facility] Apr 16, 2024 07:30 AM AMBULATORY - MEDICINE [facility] May 20, 2024 01:00 PM [facility] - MEDICINE [facility] Pathology Reports: +/- 30 days of the encounter Pathology Reports For cases when an order for pathology services may have been completed prior to the date of the Encounter, the report list includes the Pathology Reports that were completed up to 30 days before dateof the Encounter. For cases when an order for pathology services may have been completed after the date of the Encounter, the report list also includes the Pathology Reports that were completed up to30 days after date of the Encounter. The data comes from all [facility]. Date/Time Pathology Report Provider Source Jan 23, 2024 04:11 PM LR SURGICAL PATHOL OGY REPORT: LOCAL TITLE: LR SURGICAL PATHOLOGY REPORT STANDARD TITLE: PATHOLOGY PROCEDURE NOTE DATE OF NOTE: JAN 23, 2024@16:11:54 ENTRY DATE: JAN 23, 2024@16:11:54 AUTHOR: ARNOLD MTZ EXP COSIGNER: URGENCY: STATUS: COMPLETED $APHDR - - - - - - - - - - - - - - - - - - - - - - - - - - - - - - - - - - - - - - - - MEDICAL RECORD SURGICAL PATHOLOGY - - - - - - - - - - - - - - - - - - - - - - - - - - - - - - - - - - - - - - - - PATHOLOGY REPORT Accession No. SP [id number] - - - - - - - - - - - - - - - - - - - - - - - - - - - - - - - - - - - - - - - - $TEXT Submitted by: ARIANE HORVATH Date obtained: Jan 22, 2024 14:53 - - - - - - - - - - - - - - - - - - - - - - - - - - - - - - - - - - - - - - - - Specimen (Received Jan 22, 2024 14:54): A. TRANSVERSE COLON POLYP - - - - - - - - - - - - - - - - - - - - - - - - - - - - - - - - - - - - - - - - BRIEF CLINICAL HISTORY: Screening Colonoscopy - - - - - - - - - - - - - - - - - - - - - - - - - - - - - - - - - - - - - - - - PREOPERATIVE DIAGNOSIS: - - - - - - - - - - - - - - - - - - - - - - - - - - - - - - - - - - - - - - - - OPERATIVE FINDINGS: Polyp - - - - - - - - - - - - - - - - - - - - - - - - - - - - - - - - - - - - - - - - POSTOPERATIVE DIAGNOSIS: Surgeon/physician: ARTUR LEROY MD =-=-=-=-=-=-=-=-=-=-=-=-= -=-=-=-=-=-=-=-=-=-=-=-=- =-=-=-=-=-=-=-=-=-=-=-=-= -=-= - - - - - - - - - - - - - - - - - - - - - - - - - - - - - - - - - - - - - - - - PATHOLOGY REPORT Accession No. SP [id number] - - - - - - - - - - - - - - - - - - - - - - - - - - - - - - - - - - - - - - - - GROSS DESCRIPTION: Neelam Alonso, 01/22/24 Received in formalin in a container labeled with the patient's full name, SSN, and Transverse Colon Polyp is a 0.4 x 0.3 x 0.3 cm schaefer tissue fragment which is submitted in toto in A1. MICROSCOPIC EXAM: (Sunil) Microscopic examination of the sections submitted from transverse colon polyp shows a hyperplastic polyp. Dysplasia is not seen within these sections. DIAGNOSIS: COLON, TRANSVERSE, POLYP, BIOPSY: HYPERPLASTIC POLYP /es/ ARNOLD MTZ Pathologist Signed Jan 23, 2024@16:11 Performing Laboratory: Surgical Pathology Report Performed By: [facility]# [id number] [address] [address] $FTR - - - - - - - - - - - - - - - - - - - - - - - - - - - - - - - - - - - - - - - - (End of report) ARNOLD MTZ MD [facility] Date Jan 23, 2024 - - - - - - - - - - - - - - - - - - - - - - - - - - - - - - - - - - - - - - - - ELI RUELAS STANDARD FORM 515 ID:[id number] SEX:M :1955 AGE: 68 LOC:GILABA2 PCP: Claudia Campa NP /loreta/ ARNOLD MTZ Pathologist Signed: 01/23/2024 16:11 ARNOLD MTZ [facility] Encounter Notes: All associated encounter notes This section contains the clinical notes associated to the Encounter. Date/Time Encounter Note(s) Provider Source Jan 22, 2024 02:41 PM ANESTHESIOLOGY POS T OPERATIVE E & M NOTE: LOCAL TITLE: ANESTHESIA POST-OP STL STANDARD TITLE: ANESTHESIOLOGY POST OPERATIVE E & M NOTE DATE OF NOTE: JAN 22, 2024@14:41 ENTRY DATE: JAN 22, 2024@14:41:07 AUTHOR: TAMIKO TOVAR EXP COSIGNER: URGENCY: STATUS: COMPLETED Post-Anesthetic Note No complications noted from anesthetic at the time of this note. Anesthesia intra-op flowsheet uploaded to [email or web address]. /loreta/ TAMIKO TOVAR ANESTHESIOLOGIST Signed: 01/22/2024 14:41 TAMIKO TOVAR [facility] Jan 22, 2024 12:46 PM ANESTHESIOLOGY PRE OPERATIVE E & M NOTE: LOCAL TITLE: ANESTHESIA PRE-OP STL STANDARD TITLE: ANESTHESIOLOGY PRE OPERATIVE E & M NOTE DATE OF NOTE: JAN 22, 2024@12:46 ENTRY DATE: JAN 22, 2024@12:46:03 AUTHOR: TAMIKO TOVAR EXP COSIGNER: URGENCY: STATUS: COMPLETED ELI RUELAS is a 68 year old MALE Pre-operative diagnosis: CRC screening Operation proposed: colonoscopy VITALS Age: 68 Weight: 263.7 lb [119.61 kg] (12/19/2023 14:51) Height: 75 in [190.5 cm] (08/10/2022 12:05) BMI: 33.0 Blood pressure: 129/76 (12/19/2023 14:51) Pulse: 77 (12/19/2023 14:51) Temperature: 98.3 F [36.8 C] (12/19/2023 14:51) Respiration: 20 (12/19/2023 14:51) SpO2: 95% (12/19/2023 14:51) Pain: 0 (12/19/2023 14:51) ALLERGIES CHANTIX MEDICATIONS Inpatient: No medications found. Active Outpatient Medications (including Supplies): Active Outpatient Medications Status 1) ALBUTEROL 90MCG (CFC-F) 200D ORAL INHL INHALE 2 PUFFS ACTIVE ORAL INHALATION FOUR TIMES A DAY SHAKE WELL. RINSE MOUTHPIECE FREQUENTLY TO PREVENT CLOGGING. 2) BUPROPION HCL 150MG 12HR SA TAB TAKE ONE TABLET BY ACTIVE MOUTH ONCE A DAY FOR 3 DAYS, THEN TAKE ONE TABLET TWICE A DAY FOR SMOKING CESSATION. SWALLOW WHOLE - DO NOT CRUSH OR CHEW. 3) METHOCARBAMOL 500MG TAB TAKE 1 TABLET BY MOUTH THREE ACTIVE TIMES A DAY NEEDED Active Non-VA Medications Status 1) Non-VA CLOPIDOGREL BISULFATE 75MG TAB 75MG BY MOUTH ACTIVE ONCE A DAY 2) Non-VA LISINOPRIL 40MG TAB 20MG BY MOUTH ONCE A DAY ACTIVE 3) Non-VA ROSUVASTATIN CA 40MG TAB 20MG BY MOUTH EVERY ACTIVE EVENING 4) Non-VA [id number]/VILANTEROL2 5MCG 30D INH 1 ACTIVE PUFF ORAL INHALATION ONCE A DAY 7 Total Medications LABS WBC 9.8 10*3/uL 02/15/2023 11:44 RBC 4.68 10*6/uL 02/15/2023 11:44 HGB 15.0 g/dL 02/15/2023 11:44 HCT 45.9 % 02/15/2023 11:44 MCV 98.1 fL 02/15/2023 11:44 MCH 32.1 pg 02/15/2023 11:44 MCHC 32.7 L g/dL 02/15/2023 11:44 RDW 14.5 % 02/15/2023 11:44 PLT 235 10*3/uL 02/15/2023 11:44 MPV 10.1 fL 02/15/2023 11:44 NEUTROPHILS, AUTO % 66 % 02/15/2023 11:44 LYMPHOCYTES, AUTO % 22 % 02/15/2023 11:44 MONOCYTES, AUTO % 9 % 02/15/2023 11:44 EOSINOPHILS, AUTO % 1 % 02/15/2023 11:44 BASOPHILS, AUTO % 1 % 02/15/2023 11:44 NEUTROPHILS, ABSOLUTE 6.52 10*3/uL 02/15/2023 11:44 LYMPHOCYTES, ABSOLUTE 2.19 10*3/uL 02/15/2023 11:44 MONOCYTES, ABSOLUTE 0.91 10*3/uL 02/15/2023 11:44 EOSINOPHILS, ABSOLUTE 0.12 10*3/uL 02/15/2023 11:44 BASOPHILS, ABSOLUTE 0.05 10*3/uL 02/15/2023 11:44 No INR EO data found No PTT EO data found SODIUM 141 mEq/L 02/15/2023 11:44 POTASSIUM 4.3 mEq/L 02/15/2023 11:44 CHLORIDE 104 mEq/L 02/15/2023 11:44 UREA NITROGEN 14.3 mg/dL 02/15/2023 11:44 CREATININE 1.16 mg/dL 02/15/2023 11:44 CALCIUM 10.4 mg/dL 02/15/2023 11:44 PROTEIN 7.5 g/dL 02/15/2023 11:44 ALBUMIN 4.1 g/dL 02/15/2023 11:44 ALKALINE PHOSPHATASE 102 U/L 02/15/2023 11:44 ALT/SGPT 14 U/L 02/15/2023 11:44 AST/SGOT 10 U/L 02/15/2023 11:44 TOTAL BILIRUBIN 0.6 mg/dL 02/15/2023 11:44 CARBON DIOXIDE 27 mEq/L 02/15/2023 11:44 GLUCOSE 113 H mg/dL 02/15/2023 11:44 EGFR (CKD-EPI 2020) 69.90 02/15/2023 11:44 HGA1C 6.0 % 02/15/2023 11:44 URINE COLOR Yellow 02/15/2023 11:49 APPEARANCE Clear 02/15/2023 11:49 U.PH 6.0 02/15/2023 11:49 U.BILIRUBIN Negative mg/dL 02/15/2023 11:49 U.NITRITE Negative mg/dL 02/15/2023 11:49 No URINE DRUG SCREEN EO data found No TEST LAST ONE EO data found No HIV SCREENING EO data found [facility] Hep C tests in last five years. *No Lab Data Found* DIAGNOSTICS CXR: Impression for CHEST X-RAY, 2 VIEWS, 11/28/20, case [id number] Postoperative changes right lung. No active pulmonary disease. EKG: No data available for: EKG CONSULT STL EKG CONSULTS PB EKG RESULTS DC PFT: 08/11/22 CONCLUSIONS: There is a combined moderate obstructive and mild restrictive abnormality that did not improve after inhaled bronchodilator. There is impairment of diffusing capacity but not resting oxygenation. There are no prior studies available for comparison. Echocardiogram: TTE 01/03/24 1. Bubble study is negative for right to left shunt. 2. Normal biventricular size and systolic function. 3. Mild diastolic dysfunction (grade I) with normal left atrial filling pressure. 4. The left atrium is moderately enlarged. 5. The inferior vena cava is normal in size with normal inspiratory variation, which is consistent with estimated right atrial pressure of 3 mmHg. 6. Pulmonary pressures are within normal limits. 7. No hemodynamically significant valvular abnormality Stress test: No Stress Test Data available PROBLEM LIST 1) History of colonic polyp 2) Chronic obstructive lung disease 3) Asthma 4) Hepatitis C comment: in remission 5) HLD - Hyperlipidaemia 6) Vitamin D deficiency 7) Periventricular hemorrhagic venous infarct 8) Peyronie's disease 9) Prediabetes 10) Tobacco use 11) Osteoarthritis of joint of left shoulder region 12) Nicotine dependence 13) Pain of left shoulder joint 14) Lung cancer comment: RLL - Lobectomy - August 2020 15) Hypertensive heart AND chronic kidney disease stage 3 16) Chronic kidney disease stage 3A REVIEW OF SYSTEMS/PAST MEDICAL HISTORY Functional capacity: >4 METs RESPIRATORY for: - Recent or current SOB - Sleep apnea + Asthma + COPD + h/o lung cancer - s/p RLL lobectomy CARDIAC for: - Recent chest pain + Hypertension - Hyperlipidemia - Myocardial infarction - Coronary artery disease - Heart failure - Valvular disease + Atrial fibrillation/flutter - post lobectomy PSYCH/CENTRAL NERVOUS for: - Depression - Anxiety - Post-traumatic stress disorder + ischemic Cerebral vascular accident - Seizures ENDOCRINE for: + preDiabetes - Hypothyroid RENAL for: + Chronic kidney disease - stage 3 - Nephrolithiasis GI for: - GERD + Hep c + Peyronie's disease - Liver disease - GI bleed VASCULAR/HEMATOLOGY/ONCOLOGY for: - Anemia - Thrombocytopenia - Blood disorders MUSCULOSKELETAL/SKIN/PERIPHE RAL NERVOUS for: - Obesity + Arthritis/Degenerative joint disease - Rheumatoid arthritis - Neuropathy /REPRODUCTIVE for: - Prostate hypertrophy HABITS Alcohol: Occasional Smokin cigs/day ( 50 packyear history) Other drugs: Denies SURGICAL HISTORY Reviewed Previous anesthesia complications: None Family history of anesthesia complications: None PHYSICAL EXAM Alert & oriented x3 Heart: Regular rate, Regular rhythm Lungs: Clear to auscultation bilaterally AIRWAY Mallampati Class: 3 Neck: Full range of motion, no pain on flexion/extension. Normal thyromental distance. Teeth: upper edentulous, lower teeth intact ASA CLASS 3. A patient with severe systemic disease. ANESTHETIC PLAN Monitored Anesthesia Care (MAC) Planned anesthetic technique and options were discussed with the patient or guardian including risks, benefits, and potential complications. Consented for all modalities of beatriz-operative pain management. PRE-INDUCTION REASSESSMENT NPO status appropriate: Yes /es/ TAMIKO TOVAR ANESTHESIOLOGIST Signed: 01/22/2024 13:12 Receipt Acknowledged By: 01/22/2024 13:16 /es/ EVELYN FONTAINE, MS CINTHYA TOVAR,TAMIKO Corral [facility]
--- OUTSIDE RECORDS SUMMARY | 2024-07-30 10:58 | XMS_ITS | Encounter Summary ---
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 [place] Organization [facility] [place] Address [address] [place] [address] Care Team Providers Care Mechanical Engineering Draftsperson Name Role Phone JESSICA KAY Primary Care [...] ACTIV E [place]IGH Jun 03, 2013 [id number] [phone] JOSEPHINE DiamondROSITA SPOUSE MEDICARE (WNR) MEDICARE (M) PART B Jul 04, 2016 PART B [id number] [phone] HERMES GRIMMY PATIENT MEDICARE (WNR) MEDICARE (M) PART A Jul 04, 2016 PART A [id number] [phone] RICHARDSO N,ELI PATIENT MEDICARE (WNR) MEDICARE (M) PART A Jul 04, 2016 PART A [id number] EMMASO N,ELI PATIENT MEDICARE (WNR) MEDICARE (M) PART B Jul 04, 2016 PART B [id number] EMMASO N,ELI PATIENT MEDICARE (WNR) MEDICARE (M) PART A Jul 04, 2016 PART A [id number] EMMASO N,ELI PATIENT MEDICARE (WNR) MEDICARE (M) PART B Jul 04, 2016 PART B [id number] [phone] EMMASO N,ELI PATIENT MEDICARE (WNR) MEDICARE (M) PART A Jul 04, 2016 PART A [id number] EMMASO N,ELI PATIENT MEDICARE (WNR) MEDICARE (M) PART B Jul 04, 2016 PART B [id number] [phone] JOSEPHINE NHERMESY PATIENT PRIME THERAPEUTI CS RX PRESCRIPT ION RX PLAN Jun 03, 2013 [id number] [phone] EMMASO N,ELI PATIENT Selected Encounter This section includes the information on record at [place] for the Encounter. Date/Time Encounter Type Encounter Description Reason Provider Source Dec 19, 2023 03:00 PM OFFICE O/P EST MOD 30 MIN CARDIOLOGY ICD-10-CM I63.9 Cerebral infarction, unspecified OU,JIAFU IHE Encounter Template Text not used by [place] Assessments - Encounter Diagnoses This section includes the primary and secondary diagnoses documented for the Encounter. Date/Time Primary/Secondary Diagnosis Diagnosis Name Provider Source Jan 29, 2024 02:42 PM PRIMARY Cerebral infarction, unspecified SIMONE VALDEZ [facility] Jan 29, 2024 02:42 PM SECONDARY Tobacco use SIMONE VALDEZ [facility] Plan of Treatment: Future Appointments (+ 6 months) and Future Tests (+/- 45 days) The Plan of Treatment section includes future care activities for the patient from all [place] treatmentfacilities. This section includes future appointments and future orders which are active, pending or scheduled. Future Appointments This section includes appointments that were scheduled to occur 6 months from the date of the Encounter, up to a maximum of 20 appointments. The data comes from all [facility]. Appointment Date/Time Appointment Type Appointme nt Facility Name Dec 23, 2023 10:00 AM AMBULATORY - MEDICINE [facility] Dec 26, 2023 01:00 PM AMBULATORY - NONE [facility] Dec 31, 2023 02:00 PM AMBULATORY - NONE [facility] Jan 02, 2024 02:00 PM AMBULATORY - NONE [facility] Jan 03, 2024 01:30 PM AMBULATORY - MEDICINE [facility] Jan 09, 2024 01:00 PM AMBULATORY - NONE [facility] Jan 22, 2024 01:15 PM AMBULATORY - MEDICINE [facility] Mar 19, 2024 04:30 PM AMBULATORY - MEDICINE [facility] Apr 08, 2024 02:30 PM AMBULATORY - MEDICINE [facility] Apr 16, 2024 07:30 AM AMBULATORY - MEDICINE [facility] May 20, 2024 01:00 PM AMBULATORY - MEDICINE [facility] Vital Signs: All taken on the encounter date This section contains inpatient and outpatient Vital Signs collected on the date of the Encounter. Date/Time Temperature Pulse Blood Pressure Respiratory Rate SP02 Pain Height Weight Body Mass Index Source Dec 19, 2023 02:51 PM 98.3 77 129/76 20 95 0 263.7 33 [facility] Encounter Notes: All associated encounter notes This section contains the clinical notes associated to the Encounter. Date/Time Encounter Note(s) Provider Source Dec 19, 2023 03:52 PM CARDIOLOGY OUTPATI ENT NOTE: LOCAL TITLE: CARDIOLOGY OUTPATIENT FOLLOW UP [facility] STANDARD TITLE: CARDIOLOGY OUTPATIENT NOTE DATE OF NOTE: DEC 19, 2023@15:52 ENTRY DATE: DEC 19, 2023@15:52:57 AUTHOR: MARIANO VALDEZ EXP COSIGNER: JACOBO TELLO URGENCY: STATUS: COMPLETED CARDIOLOGY OUTPATIENT FOLLOW UP STL Has ADDENDA ===== CARDIOLOGY CLINIC NOTE ===== HISTORY OF PRESENT ILLNESS: 68 yo M with PMH of R lung NSCC s/p curative resection in 2020 complicated by perioperative A fib (s/p 1 month of amiodarone and discontinued due to no recurrence of A fib), ischemic CVA (on plavix), COPD, at least 50 pack years of smoking history trying to actively quit now, (down to 5 cigarettes a day now) was sent to Cardiology clinic by PCP due to his complaint of LEWIS. He says his LEWIS started after his surgery and has been kind of stable since last one year. SOB is most pronounced when he leans forward, he is able to go up a flight of stirs but does get SOB if it is more than that, he does not walk much, and hence is not able to quantify how much he is able to walk without getting SOB, however he is able to do his own grocery shopping and can push his own grocery cart without any problem. He denies orthopnea, no PND, does have occasional leg swelling. He did have an episode of chest pain last year when he thought he was having a heart attack [facility] and he was told everything was fine, he does not remember if a stress test was done, but remembers for sure that an ECHO was done and he was told his EF was normal. Follow up visit : He had retinal emboli seen on optometry. However he was asymptomatic and did not have any vision changes. He continues to feel SOB, however that is stable and is actively tryig to quit. PMHX: ------ 1) History of colonic polyp 2) Chronic [...] 3 16) Chronic kidney disease stage 3A OUTPATIENT MEDICATIONS: ------ Active Outpatient Medications (including Supplies): Active Outpatient [...] BY MOUTH EVERY ACTIVE EVENING 4) Non-VA [id number]/VILANTEROL 25MCG 30D INH 1 ACTIVE PUFF ORAL INHALATION ONCE A DAY 7 Total Medications ALLERGIES: ------ CHANTIX SOCIAL HISTORY: ------ - Tobacco:active smoker - Alcohol:denies - Illicit Substances:denies FAMILY HISTORY: ------ - No family history of coronary artery disease, heart failure, arrhythmia REVIEW OF SYSTEMS: 12 point ROS negative except mentioned in HPI PHYSICAL EXAMINATION: VITALS: Temperature: 98.3 F [36.8 C] (12/19/2023 14:51) Blood Pressure: 129/76 (12/19/2023 14:51) Pulse: 77 (12/19/2023 14:51) Respirations: 20 (12/19/2023 14:51) GENERAL: NAD, comfortable. HEENT: Moist oral mucosa, anicteric sclera. NECK: Supple, no JVD, normal carotid upstrokes without bruits. RESPIRATORY: CTAB, no wheezing/rhonchi/crackles. CARDIOVASCULAR: regular rhythm, normal S1 and S2, no M/R/G. No JVD. 2+ radial and DP pulses. ABDOMEN: +BS, soft, non-tender, non-distended, and no hepatosplenomegaly. EXTREMITIES: No peripheral edema SKIN: No significant lesions. NEURO: Alert and oriented, CN II to XII grossly intact. Moving all extremities spontaneously LABS: COMPLETE BLOOD COUNT WBC 9.8 10*3/uL 02/15/2023 11:44 RBC 4.68 [...] 11:44 BASOPHILS, ABSOLUTE 0.05 10*3/uL 02/15/2023 11:44 COMPREHENSIVE METABOLIC PANEL SODIUM 141 mEq/L 02/15/2023 11:44 POTASSIUM 4.3 [...] 11:44 EGFR (CKD-EPI 2020) 69.90 02/15/2023 11:44 LIPIDS TRIGLYCERIDE 80 mg/dL 02/15/2023 11:44 CHOLESTEROL 130 mg/dL 02/15/2023 11:44 HDL(New) 35 L mg/dL 02/15/2023 11:44 CALCULATED LDL 79 mg/dL 02/15/2023 11:44 COAGULATION STUDIES No INR EO data found No PTT EO data found HGA1C: HGA1C 6.0 % 02/15/2023 11:44 IMAGING: No data available IMAGING IMPRESSION SELECTED No data available for: US CAROTID BILATERAL US CAROTID VASCULAR,UNILAT OR LTD PROGRESS NOTES SELECTED 11/05/2023 10:32 Local Title: VASCULAR LAB CONSULT [facility] Standard Title: VASCULAR SURGERY CONSULT VASCULAR LABORATORY: CAROTID DUPLEX EXAMINATION Indication: Hollenhorst plaque Rt ICA:<50% stenosis Rt ICA PSV:79 Rt ICA EDV:13 Rt CCA:Patent Rt CCA PSV:102 Rt CCA EDV:22 Rt ECA:Patent Rt ECA PSV:101 Rt ECA EDV:12 Rt VERT:Antegrade IC/CC RATIO:0.77 Lt ICA:<50% stenosis Lt ICA PSV:71 Lt ICA EDV:11 Lt CCA:Patent Lt CCA PSV:90 Lt CCA EDV:19 Lt ECA:Patent Lt ECA PSV:97 Lt ECA EDV:12 Lt VERT:Antegrade IC/CC RATIO: 0.79 IMPRESSION:there is <50% stenosis of both internal carotid arteries. both external carotid arteries are patent and both vertebral arteries are antegrade. This is an [facility] accredited vascular laboratory Exam performed by Hamida Hernandez RVT Signed by: /loreta/ HUA SHELL MD Staff Physician - General Surgery 11/05/2023 12:09 No data available for: NM MYOCARDIAL PERF (PLANAR), SINGLE STUDY NM MYOCARDIAL PERF SPECT STRESS/REST NM MYOCARDIAL PERFUSION VIABILITY NM MYOCARDIAL PERF SPECT SINGLE STUDY NM MYOCARDIAL PERF (PLANAR), MULTIPLE STUDIES ECHO: TTE in November 2022 at [facility] with preserved EF STRESS TEST: Lexiscan in November at [facility] negative ASSESSMENT/RECOMMENDATIONS: //Ischemic CVA -ischemnic CVA in 2013 (brain MRI at [facility] showed no acute stroke, however showed left periventricular stroke) -also was found to have retinal emboli on optometry in October 2023 -ordered carotid US -given it was not multiple sites of infarct in brain, less likely to be embolus of cardiac origin, ordered TTE with bubble study to look for PFO and 30 day event monitor to look for A fib -of note after lung resection surgery in August 2020 he did have post operative A fib, treated with a month of amiodarone, and all EKGs in chart since have been in sinus //Dyspnea on exertion -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 (PFT from August 2022 shows combined moderate obstructive and mild restrictive abnormality which did not improve with inhaled bronchodilator abd impairment of diffusion capacity), also s/o lobectomy -also continues to smoke, however actively trying to quit -TTE with preserved EF and lexiscan stress test negative in November 2022 at [facility], no further work up needed //Active smoker -at least 50 pack years of smoking history -actively trying to quit -AAA screen negative from 2022 //h/o R lung NSCC //COPD RTC by phone encounter in 3 months All patients are counseled on the risks of smoking at every visit including patients with no history of smoking in order to dissuade them from starting the use of tobacco products; former smokers to minimize recidivism of nicotine dependence; and current smokers in an effort to help them cease the use of nicotine products. Where relevant [age between 50-60-years and history of smoking], we and/or the PCP will obtain an abdominal ultrasound to screen for the possibility of an abdominal aortic aneurysm and ABIs to screen for occult PAD. When completed, the results will be found in [facility]. # HEALTH PROMOTION/HEALTH MAINTENANCE & EDUCATION DISEASE: Discussed treatment options & counseled on exacerbating factors. # DIAGNOSTIC TESTING AND LABORATORY DATA: Pertinent labs and diagnostic tests (both normal and abnormal) are included above and were reviewed and discussed with the patient within 7-days of the test and during this visit. - DISEASE: Coordinated care; discussed treatment options, & counseled on exacerbating factors. - Encouraged participation in regular exercise program 3-5 days/week - Maximize risk factor reduction & lifestyle modifications i.e. BP <130/80 and LDL goal <70 - Discussed at length about lifestyle modifications in regard to diet, exercise, and medication compliance. -Assessed smoking habits and whether actively using tobacco products or a past history of nicotine dependence, smoking cessation strategies were reinforced. - In patients with a history of CHF, VALENTIN/ARB use is considered and held when contraindications such as allergies, renal function preclude use. If not mentioned in the above note, these assessments are detailed in prior cardiology notes. The patient verbalized understanding of information regarding: labs, meds, and plans for care. Reinforcement is indicated. # MEDICATION RECONCILIATION: - All cardiac medications were reconciled during the visit. - All patients with an EF </= 40% are considered for Valentin inhibitors or ARBs except when contraindicated due to intolerance/allergy, hypotension, or renal disease. Documentation is found in the historical record if not repeated in this note. - All patients with an EF </= 40% are considered for beta blockers and aspirin contraindicated due to intolerance/allergy, hypotension, bradycardia, or bleeding risk. Documentation is found in the historical record if not repeated in this note. - Anticoagulation therapy was discussed with all patients in the setting of atrial flutter/fibrillation and held in cases where the complications of bleeding (e.g., fall risk) outweighs the risk of stroke. All patients on anticoagulation medications are counseled on bleeding risks and the warning signs of a stroke or TIA. - Except where mentioned or restricted, the PCP may renew the cardiac medications. - Other listed profile meds will continue as directed by the PCP (primary provider). /argelia VALDEZ MD PARTICIPANT ADMINISTRATOR Signed: 12/19/2023 16:01 /loreta/ JACOBO TELLO MD,[facility] STAFF ACCOUNTANCY PROFESSOR Cosigned: 12/19/2023 16:04 12/19/2023 ADDENDUM STATUS: COMPLETED Cardiology Attending Note I saw, interviewed and examined Mr. Ruelas with the Rock Singer, Dr. Mariano Valdez. I have reviewed the pt's clinical data including the ECG's, stress, Cath and Echo (when available) with lead project manager. I have reviewed Dr. Mariano Valdez's note and agree with the history, physical findings and the initial assessment and plan. ELI RUELAS is doing stable from cardiac standpoint. No evidence of embolic strokes per prior brain MRI. /argelia TELLO MD,[facility] STAFF ACCOUNTANCY PROFESSOR Signed: 12/19/2023 16:08 MARIANO VALDEZ [facility]
--- OUTSIDE RECORDS SUMMARY | 2024-07-30 10:58 | XMS_ITS | Encounter Summary ---
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 [place] Organization [facility] [place] Address [address] [place] [address] Care Team Providers Care Call Center Operator Name Role Phone JESSICA KAY Primary Care Provider UnavailYANIV Galleogs Unavailable Unavailable JENY TAVAREZ Unavailable Unavailable ISAAC [...] [place] PREFERRED PROVIDER ORGANIZAT ION (PPO) [place] ACTIV E [place] Jun 03, 2013 [id number] [phone] JOSEPHIEN DiamondROSITA SPOUSE MEDICARE (WNR) MEDICARE (M) PART B Jul 04, 2016 PART B [id number] JOSEPHINE DiamondELI PATIENT MEDICARE (WNR) MEDICARE (M) PART A Jul 04, 2016 PART A [id number] JOSEPHINE Diamond,ELI PATIENT MEDICARE (WNR) MEDICARE (M) PART A Jul 04, 2016 PART A [id number] RICHARDSO N,ELI PATIENT MEDICARE (WNR) MEDICARE (M) PART B Jul 04, 2016 PART B [id number] [phone] RICHARDSO N,ELI PATIENT MEDICARE (WNR) MEDICARE (M) PART B Jul 04, 2016 PART B [id number] RICHARDSO N,ELI PATIENT MEDICARE (WNR) MEDICARE (M) PART A Jul 04, 2016 PART A [id number] RICHARDSO N,ELI PATIENT MEDICARE (WNR) MEDICARE (M) PART A Jul 04, 2016 PART A [id number] RICHARDSO N,ELI PATIENT MEDICARE (WNR) MEDICARE (M) PART B Jul 04, 2016 PART B [id number] RICHARDSO N,ELI PATIENT PRIME THERAPEUTI CS RX PRESCRIPT ION RX PLAN Jun 03, 2013 [id number] [phone] RICHARDSO N,ELI PATIENT Selected Encounter This section includes the information on record at [place] for the Encounter. Date/Time Encounter Type Encounter Description Reason Pro vider Source IHE Encounter Template Text not used by [place]
--- OUTSIDE RECORDS SUMMARY | 2024-07-30 10:58 | XMS_ITS | Encounter Summary ---
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 Organization [facility] [place] Address [address] [place] [address] Care Team Providers Care Corporate Administrative Assistant Name Role Phone JESSICA KAY Primary Care Provider UnavailYANIV Galelgos Unavailable Unavailable JENY TAVAREZ Unavailable Unavailable ELSY, [...] ACTIV E [place] HIGH Jun 03, 2013 [id number] [phone] JOSEPHINE DiamondROSITA SPOUSE MEDICARE (WNR) MEDICARE (M) PART A Jul 04, 2016 PART A [id number] HERMES GRIMMY PATIENT MEDICARE (WNR) MEDICARE (M) PART B Jul 04, 2016 PART B [id number] RICHARDSO N,ELI PATIENT MEDICARE (WNR) MEDICARE (M) PART A Jul 04, 2016 PART A [id number] EMMASO N,ELI PATIENT MEDICARE (WNR) MEDICARE (M) PART B Jul 04, 2016 PART B [id number] EMMASO N,ELI PATIENT MEDICARE (WNR) MEDICARE (M) PART A Jul 04, 2016 PART A [id number] RICHARDSO N,ELI PATIENT MEDICARE (WNR) MEDICARE (M) PART B Jul 04, 2016 PART B [id number] [phone] RICHARDSO N,ELI PATIENT MEDICARE (WNR) MEDICARE (M) PART A Jul 04, 2016 PART A [id number] [phone] EMMASO N,ELI PATIENT MEDICARE (WNR) MEDICARE (M) PART B Jul 04, 2016 PART B [id number] EMMASO N,ELI PATIENT PRIME THERAPEUTI CS RX PRESCRIPT ION RX PLAN Jun 03, 2013 [id number] [phone] EMMASO N,ELI PATIENT Selected Encounter This section includes the information on record at [place] for the Encounter. Date/Time Encounter Type Encounter Description Reason Provider Source Nov 12, 2023 11:00 AM OFFICE O/P EST LOW 20 MIN PULMONARY/CHEST ICD-10-CM F17.210 Nicotine dependence, cigarettes, uncomplicated GLENDA SUTHERLAND Redd Encounter Template Text not used by [place] Assessments - Encounter Diagnoses This section includes the primary and secondary diagnoses documented for the Encounter. Date/Time Primary/Secondary Diagnosis Diagnosis Name Provider Source Nov 12, 2023 11:18 AM PRIMARY Nicotine dependence, cigarettes, uncomplicated GLENDA SUTHERLAND [facility] Nov 12, 2023 11:18 AM SECONDARY Chronic obstructive pulmonary disease, unspecified GLENDA SUTHERLAND Viridiana [facility] Plan of Treatment: Future Appointments (+ 6 months) and Future Tests (+/- 45 days) The Plan of Treatment section includes future care activities for the patient from all [place] treatmentfacilities. This section includes future appointments and future orders which are active, pending or scheduled. Future Appointments This section includes appointments that were scheduled to occur 6 months from the date of the Encounter, up to a maximum of 20 appointments. The data comes from all [place] treatment facilities. Appointment Date/Time Appointment Type Appointme nt Facility Name Nov 21, 2023 01:00 PM AM[facility]ULATORY [facility] NONE [facility] Dec 12, 2023 02:00 PM AMBULATORY - NONE [facility] Dec 17, 2023 11:00 AM AMBULATORY - SURGERY [facility] Dec 19, 2023 01:00 PM AMBULATORY - NONE [facility] Dec 19, 2023 03:00 PM AMBULATORY - MEDICINE [facility] Dec 23, 2023 10:00 AM AMBULATORY - MEDICINE [facility] Dec 26, 2023 01:00 PM AMBULATORY - NONE [facility] Dec 31, 2023 02:00 PM AMBULATORY - NONE [facility] Jan 02, 2024 02:00 PM AMBULATORY - NONE [facility] Jan 03, 2024 01:30 PM AMBULATORY - MEDICINE [facility] Jan 09, 2024 01:00 PM AMBULATORY - NONE [facility] Jan 22, 2024 01:15 PM AMBULATORY - MEDICINE [facility] Mar 19, 2024 04:30 PM AMBULATORY - MEDICINE [facility] Apr 08, 2024 02:30 PM AMBULATORY - MEDICINE [facility] Apr 16, 2024 07:30 AM AMBULATORY - MEDICINE [facility] Encounter Notes: All associated encounter notes This section contains the clinical notes associated to the Encounter. Date/Time Encounter Note(s) Provider Source Nov 12, 2023 11:07 AM SMOKING CESSATION NOTE: LOCAL TITLE: SMOKING CESSATION RUST STANDARD TITLE: SMOKING CESSATION NOTE DATE OF NOTE: NOV 12, 2023@11:07 ENTRY DATE: NOV 12, 2023@11:08 AUTHOR: GLENDA SUTHERLAND COSIGNER: URGENCY: STATUS: COMPLETED [facility] preferred to complete Appointment over the phone. Emergency number confirmed. Interval HPI: Mr. Stewart is a 68 yo M. pMHX: NSCLC s/p curative resection August 2020, Current Tobacco User, Moderate COPD--Gold 2A. Pt is not a candidate for LCS d/t his hx of Lung CA. Meeting with [facility] to discuss his progress with smoking cessation. Last time we spoke 09/10/2023 pt was started on Wellbutrin. Pt confirms that he is still taking Wellbutrin 150mg BID. Feels that it has helped him. States he is smoking 7-8 cigarettes daily. Prior to starting medication he was smoking 8-10. Some days he smokes less. Reports having some sleep disturbances but only last 1-2 nights. Denies any worsening constipation, nausea, or anxiety. [facility] He is interested in Acupuncture for smoking cessation. Please note pt not enrolled in LCS d/t hx of Lung CA. ROS: A complete 10 point ROS was performed as per interval history. All other systems were reviewed and negative other than those as mentioned. Active Outpatient Medications (including Supplies): Active Outpatient Medications Status 1) ALBUTEROL 90MCG (CFC-F) 200D ORAL INHL INHALE 2 PUFFS ACTIVE ORAL INHALATION FOUR TIMES A DAY SHAKE WELL. RINSE MOUTHPIECE FREQUENTLY TO PREVENT CLOGGING. 2) BISACODYL 5MG EC TAB TAKE TWO TABLETS BY MOUTH ONE ACTIVE TIME TAKE BISACODYL TABLETS AT 4PM ON AFTERNOON PRIOR TO TEST. CALL [phone] WITH ANY QUESTIONS ABOUT THESE INSTRUCTIONS. MAIL 3) BUPROPION HCL 150MG 12HR SA TAB TAKE ONE TABLET BY ACTIVE MOUTH ONCE A DAY FOR 3 DAYS, THEN TAKE ONE TABLET TWICE A DAY FOR SMOKING CESSATION. SWALLOW WHOLE - DO NOT CRUSH OR CHEW. 4) COLON ELECTROLYTE LAVAGE PWD FOR SOLN MIX AND DRINK ACTIVE CONTENTS OF BOTTLE BY MOUTH DIRECTED (THE DAY BEFORE YOUR TEST ONLY DRINK CLEAR LIQUIDS-NO SOLID FOOD! TAKE THE BISACODYL TABLETS AT 4PM AND MIX THE GOLYTELY WITH WATER AND REFRIGERATE. AT 7PM DRINK HALF OF THE GOLYTELY. REFRIGERATE OVERNIGHT. COMPLETE GOLYTELY 3 HRS BEFORE LEAVING HOME FOR TEST. READ YOUR INSTRUCTIONS!) 5) METHOCARBAMOL 500MG TAB TAKE 1 TABLET BY MOUTH THREE ACTIVE TIMES A DAY NEEDED 6) SIMETHICONE 80MG CHEW TAB CHEW AND SWALLOW FOUR ACTIVE TABLETS BY MOUTH DIRECTED FOR TWO DOSES BEFORE GI PROCEDURE Active Non-[facility] Medications Status 1) Non-VA CLOPIDOGREL BISULFATE 75MG TAB 75MG BY MOUTH ACTIVE ONCE A DAY 2) Non-VA LISINOPRIL 40MG TAB 20MG BY MOUTH ONCE A DAY ACTIVE 3) Non-VA ROSUVASTATIN CA 40MG TAB 20MG BY MOUTH EVERY ACTIVE EVENING 4) Non-VA [id number]/VILANTEROL 25MCG 30D INH 1 ACTIVE PUFF ORAL INHALATION ONCE A DAY 10 Total Medications PAST HISTORY: 1) History of colonic polyp 2) Chronic obstructive lung disease 3) Asthma 4) Hepatitis C 5) HLD - Hyperlipidaemia 6) Vitamin D deficiency 7) Periventricular hemorrhagic venous infarct 8) Peyronie's disease 9) Prediabetes 10) Tobacco use 11) Osteoarthritis of joint of left shoulder region 12) Nicotine dependence 13) Pain of left shoulder joint 14) Lung cancer 15) Hypertensive heart AND chronic kidney disease stage 3 16) Chronic kidney disease stage 3A OBJECTIVE: not able to observe Objective: HGA1C 6.0 % 02/15/2023 11:44 HGA1C 5.8 % 02/19/2022 11:04 HGA1C 5.9 % 08/24/2021 12:12 HGA1C 5.9 % 10/11/2020 11:43 HGA1C 6.0 % 03/09/2019 11:36 SODIUM 141 mEq/L 02/15/2023 11:44 POTASSIUM 4.3 mEq/L 02/15/2023 11:44 CHLORIDE 104 mEq/L 02/15/2023 11:44 UREA NITROGEN 14.3 mg/dL 02/15/2023 11:44 CREATININE 1.16 mg/dL 02/15/2023 11:44 CALCIUM 10.4 mg/dL 02/15/2023 11:44 CARBON DIOXIDE 27 mEq/L 02/15/2023 11:44 GLUCOSE 113 H mg/dL 02/15/2023 11:44 EGFR (CKD-EPI 2020) 69.90 02/15/2023 11:44 CREATuF: 156.5 (02/15/23 11:49) M/CREAT: 4 (02/15/23 11:49) MICRAL: 6 (02/15/23 11:49) No MICRAL/CREAT RATIO (STL) data found TRIGLYCERIDE 80 mg/dL 02/15/2023 11:44 CHOLESTEROL 130 mg/dL 02/15/2023 11:44 HDL(New) 35 L mg/dL 02/15/2023 11:44 CALCULATED LDL 79 mg/dL 02/15/2023 11:44 TSH 0.778 uIU/mL 02/15/2023 11:44 Allergies: CHANTIX Assessment/Plan: #Tobacco Cessation - Ctn Wellbutrin 150mg BID. Since pt has no reported harmful SE will consider ongoing maintenance therapy once taken >12 weeks. - [facility] consult for Acupuncture - Goal of <7-8 cigarettes a day next time pt meets with provider. #COPD: pt follows with Pulm Provider: Dr. Frey. Ctn current inhaler regimin as prescribed. RTC: 05/2024 Patient verbalized understanding and has no questions. All patients are counseled on the risks [...] completed, the results will be found in [facility]. # HEALTH PROMOTION/HEALTH MAINTENANCE & EDUCATION [...] in regular exercise program 3-5 days/week - Discussed at length about lifestyle modifications in regard to diet, exercise, and medication compliance. - Assessed smoking habits and whether actively using tobacco products or a past - Discussed importance of immunizations to prevent disease. The patient verbalized understanding of information regarding: labs, meds, and plans for care. Reinforcement is indicated. # MEDICATION RECONCILIATION: - All pulmonary medications were reconciled during the visit. - Other listed profile meds will continue as directed by the PCP (primary provider). I spent xx minutes performing services for this patient: before, during and after the VVC visit today more than 50% of the provider's V[facility] visit time with a patient is spent in counseling or coordination of care /es/ GLENDA SUTHERLAND APRN NURSE PRACTITIONER, SURGERY SERVICE CCT Signed: 11/12/2023 11:20 GLENDA SUTHERLAND [facility]
--- OUTSIDE RECORDS SUMMARY | 2024-07-30 10:58 | XMS_ITS | Clinical Summary ---
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
--- OUTSIDE RECORDS SUMMARY | 2024-07-30 10:58 | XMS_ITS | Encounter Summary ---
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 [place] Organization [facility] [place] [facility] [place] Address [address] [place] [address] Care Team Providers [facility] Chief Executive Officer Name Role Phone JESSICA KAY Primary Care [...] ACTIV E [place] HIGH Jun 03, 2013 [id number] [phone] JOSEPHINE DiamondROSITA SPOUSE MEDICARE (WNR) MEDICARE (M) PART B Jul 04, 2016 PART B [id number] HERMES GRIMMY PATIENT MEDICARE (WNR) MEDICARE (M) PART A Jul 04, 2016 PART A [id number] RICHARDSO N,ELI PATIENT MEDICARE (WNR) MEDICARE (M) PART A Jul 04, 2016 PART A [id number] RICHARDSO N,ELI PATIENT MEDICARE (WNR) MEDICARE (M) PART B Jul 04, 2016 PART B [id number] EMMASO N,ELI PATIENT MEDICARE (WNR) MEDICARE (M) PART A Jul 04, 2016 PART A [id number] RICHARDSO N,ELI PATIENT MEDICARE (WNR) MEDICARE (M) PART B Jul 04, 2016 PART B [id number] RICHARDSO N,ELI PATIENT MEDICARE (WNR) MEDICARE (M) PART A Jul 04, 2016 PART A [id number] EMMASO N,ELI PATIENT MEDICARE (WNR) MEDICARE (M) PART B Jul 04, 2016 PART B [id number] EMMASO N,ELI PATIENT PRIME THERAPEUTI CS RX PRESCRIPT ION RX PLAN Jun 03, 2013 [id number] [phone] EMMASO N,ELI PATIENT Selected Encounter This section includes the information on record at [place] for the Encounter. 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 [facility] Sep 18, 2023 02:40 PM SECONDARY Abnormal weight gain RADHA,[facility]ERE [facility] Sep 18, 2023 02:40 PM SECONDARY Chronic kidney disease, stage 3a MCCHRISTEN,[facility]ERE [facility] Sep 18, 2023 02:40 PM SECONDARY Chronic obstructive pulmonary disease, unspecified RADHA,[facility]ERE [facility] Sep 18, 2023 02:40 PM SECONDARY Dyspnea, unspecified [facility] Sep 18, 2023 02:40 PM SECONDARY Hyp hrt & chr kdny dis w/o hrt fail, w stg 1-4/unsp chr kdny [facility]QU[facility]IDE,[facility]ERE [facility] Sep 18, 2023 02:40 PM SECONDARY Hyperlipidemia, unspecified [facility]QU[facility] Sep 18, 2023 02:40 PM SECONDARY Low back pain, unspecified [facility]QUAIDE,[facility]ERE [facility] Sep 18, 2023 02:40 PM SECONDARY Neoplasm of uncertain behavior of skin [facility]QUAIDE,[facility] Sep 18, 2023 02:40 PM SECONDARY Pain in right foot [facility]QUAIDE,[facility]ERE [facility] Sep 18, 2023 02:40 PM SECONDARY Polyp of colon [facility] Plan of Treatment: Future Appointments (+ 6 months) and Future Tests (+/- 45 days) The Plan of Treatment section includes future care activities for the patient from all [facility]. This section includes future appointments and future orders which are active, pending or scheduled. Future Appointments This section includes appointments that were scheduled to occur 6 months from the date of the Encounter, up to a maximum of 20 appointments. The data comes from all [place] treatment [facility]. Appointment Date/Time Appointment Type Appointme nt Facility Name October 10, 2023 01:30 PM [facility] October 22, 2023 10:00 AM AM[facility]ULATORY [facility] SURGERY [facility] October 24, 2023 01:30 PM [facility] Nov 05, 2023 10:00 AM AMBULATORY - SURGERY [facility] Nov 12, 2023 11:00 AM [facility] Nov 21, 2023 01:00 PM AMBULATORY - NONE [facility] Dec 12, 2023 02:00 PM AMBULATORY - NONE [facility] Dec 17, 2023 11:00 AM AMBULATORY - SURGERY [facility] Dec 19, 2023 01:00 PM AMBULATORY - NONE [facility] Dec 19, 2023 03:00 PM AMBULATORY - MEDICINE [facility] Dec 23, 2023 10:00 AM AMBULATORY - MEDICINE [facility] Dec 26, 2023 01:00 PM AMBULATORY - NONE [facility] Dec 31, 2023 02:00 PM AMBULATORY - NONE [facility] Jan 02, 2024 02:00 PM AMBULATORY - NONE [facility] Jan 03, 2024 01:30 PM AMBULATORY - MEDICINE [facility] Jan 09, 2024 01:00 PM AMBULATORY - NONE [facility] Jan 22, 2024 01:15 PM AMBULATORY - MEDICINE [facility] Mar 19, 2024 04:30 PM AMBULATORY - MEDICINE [facility] Lab Results: +/- 30 days of the encounter This section includes the Chemistry and Hematology Lab Results on record with [place] for the patient. Radiology Reports and Pathology Reports are provided separately, in subsequent sections. Lab Results This section contains the Chemistry/Hematology Results that were resulted 30 days before or 30 daysafter the date of the Encounter. Date/Time Source Result Type Result - Unit Interpretation Reference Range Comment Aug 28, 2023 03:23 PM [facility] I-STAT, CREAT (STL-MA) Specimen Type: BLOOD Comment: Test Performed by: [id number] Meter #: [id number] Ordering Provider: STANTON GARCIA Report Released Date/Time: Aug 28, 2023 04:17 PM Reporting Lab: [facility] [address] [facility] [id number] Performing Lab: [address] [id number] I-STAT, CREAT (STL-MA) 1.0 mg/dL 0.7-1.3 Vital Signs: All taken on the encounter date This section contains inpatient and outpatient Vital Signs collected on the date of the Encounter. Date/Time Temperature Pulse Blood Pressure Respiratory Rate SP02 Pain Height Weight Body Mass Index Source Sep 18, 2023 01:57 PM 98.1 63 134/84 20 94 0 263.3 33 [facility] Social History: Smoking Status (Most current) and Tobacco Use (All prior to encounter date) This section includes the most current, and the historical, smoking and tobacco- related health factors from the [place] facility where the Encounter took place. Current Smoking Status This section includes the most current smoking, or tobacco-related health factor, from the [place] facility where the Encounter took place. Date/Time Current Smoking Status Comment Facil ity Feb 15, 2023 11:00 AM VA-TOBACCO USE WI 30 MIN OF WAKEUP [facility] Tobacco Use History This section includes a history of the smoking, or tobacco-related health factors, that were collected on or before the date of the Encounter. The data comes from the [place] facility where the Encounter took place. Date/Time Smoking Status/Tobacco Use Comment F acility Feb 15, 2023 11:00 AM VA-TOBACCO USE ADVICE [facility] Feb 15, 2023 11:00 AM VA-TOBACCO USE UNDERWATER TRAPPER NO [facility] Feb 15, 2023 11:00 AM VA-TOBACCO USE MED NO [facility] Feb 15, 2023 11:00 AM VA-TOBACCO USE WI 30 MIN OF WAKEUP [facility] Feb 15, 2023 11:00 AM VA-TOBACCO USER EVERY DAY [facility] Feb 19, 2022 11:30 AM VA-TOBACCO DOESNT USE WI 30 MIN WAKEUP [facility] Feb 19, 2022 11:30 AM VA-TOBACCO USE 30 YEARS OR MORE [facility] Feb 19, 2022 11:30 AM VA-TOBACCO USE ADVICE [facility] Feb 19, 2022 11:30 AM VA-TOBACCO USE UNDERWATER TRAPPER NO [facility] Feb 19, 2022 11:30 AM VA-TOBACCO USE MED NO [facility] Feb 19, 2022 11:30 AM VA-TOBACCO USER EVERY DAY [facility] October 11, 2020 10:30 AM VA-TOBACCO FORMER USER [facility] October 11, 2020 10:30 AM VA-TOBACCO QUIT < 1 YEAR [facility] Radiology Reports: +/- 30 days of the [...] the Encounter. The data comes from all [place] treatment facilities. Date/Time Radiology Report Provider Source Sep 18, 2023 03:48 PM FOOT,RIGHT,3 VIEWS OR MORE: ELI RUELAS JOSY [id number] -1955 M Exm Date: SEP 18, 2023@15:48 Req Phys: WES GARCIA Loc: [facility] PCP (Req'g Loc) Img Loc: [facility] Service: Unknown (Case [id number] COMPLETE) FOOT,RIGHT,3 VIEWS OR MORE (RAD Detailed) CPT:66866 Proc Modifiers : RIGHT Reason for Study: Right foot pain Clinical History: Right foot pain, localized at instep Report Status: Verified Date Reported: SEP 21, 2023 Date Verified: SEP 21, 2023 Refuse Collector Supervisor E-Sig:/ES/Amy Trevino MD Report: FINDINGS: There is mild hallux valgus deformity and spur formation is seen at plantar aspect. No other significant bone or joint abnormality is demonstrated. No significant acute findings or evidence of recent bone injury. Impression: Mild hallux valgus deformity and calcaneal spur is noted without significant acute findings. Primary Interpreting Staff: Amy Trevino MD, Radiologist (Refuse Collector Supervisor) /QMB AMY TREVINO [facility] Aug 28, 2023 03:[address] THORAX, DIAGNOS TIC, W/CONTRAST: ELI RUELAS JOSY [id number] -1955 M Exm Date: AUG 28, 2023@15:09 Req Phys: ALEM LUTHER Pat Loc: [facility] FLASH AM (Req'g Loc) Img Loc: [facility] Service: Unknown (Case [id number] COMPLETE) CT THORAX, DIAGNOSTIC, W/CONTRAS(CT Detailed) CPT:28386 Contrast Media : Non-ionic Iodinated Reason for Study: Jennifer Ca Surveillance RML resection Clinical History: Responsible Attending: Shante Attending Contact Number: [phone] Resident Contact Number: Allergies listed in CPRS chart: CHANTIX Creatinine: CREATININE 1.24 mg/dL 02/19/2022 11:04 /eGFR: STL EGFR (within one year). CREATININE 1.24 mg/dL (02/19/22 11:04) Wt: 257.6 lb [116.85 kg] (08/17/2022 11:29) History of: Renal failure, chronic or acute renal disease: YES Report Status: Verified Date Reported: AUG 29, 2023 Date Verified: AUG 29, 2023 Refuse Collector Supervisor E-Sig:/ES/Oswald Coronado MD Report: CASE #: [id number] DATE:08/28/2023 4:30 PM CLINICAL HISTORY:Jennifer Ca Surveillance [...] Primary Interpreting Staff: Oswald Coronado MD, Radiologist (Refuse Collector Supervisor) /OSWALD PEREIRA [facility] Encounter Notes: All associated encounter notes This section contains the clinical notes associated to the Encounter. 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 Rivera. Completed thorax CT 08/28/2023 and [facility]. COPD, using Anoro MDI one puff/daily. Lesion, present on right-sided chest for 2-years. Nicotine abuse, using E-vape currently. Reports dyspnea walks up flight of stairs and becomes short of breath. Right foot pain, per pt, present for a year. Localized at instep. Denies rolling his foot. Notes pain is present when not bearing weight. Chronic lumbarspondylosis, chronic, localized pain in mid-lower @ S2, nonradiating. Has trialed lumbar ARY previously without improvement. Rates pain 8/10. No loss of bowel/bladder control. s/p right ORIF, 7 years prior. HX of Hepatitis C, completed Interferon previously. Hx of CVA in 2013, taking Clopidogrel 75mg daily. Hyperlipidemia, continues taking Rosuvastatin 20mg daily. HTN with CKD IIIa, blood pressure today, 134/84, taking Lisinopril 20mg daily. S/P [facility] in [place], [place] in 2019, noted to have 7 polyps due for a repeat this year. WHAT IS YOUR GOAL FOR TODAY? I have this thing on my chest that my wants looked at and my right foot is killing me doc SOURCE(S) OF HISTORY: Patient PAST MEDICAL HISTORY: 1) History of colonic polyp 2) [...] 3 16) Chronic kidney disease stage 3A SOCIAL HISTORY: NICOTINE: Nicotine User: Yes Type of Nicotine: Other tobacco products Other Tobacco in Remission - History of History of amount of usage/PPD using E-vape - has nicotine in it ILLICIT DRUGS: Present user Comment/Type of Drug: using MJ Gummies OTHER: no ETOH ALLERGIES: CHANTIX ALLERGY REVIEW: Allergy list reviewed and remains current. MEDICATION RECONCILIATION: I have reviewed the patient's medication list with the patient and/or his/her care-wall covering installer. Handwritten corrections, additions and/or deletions were made to the list. Corrected Outpatient Medication List was provided to the patient/caregiver. Active Outpatient Medications (including Supplies): Active Outpatient Medications Status 1) ALBUTEROL 90MCG (CFC-F) 200D ORAL INHL INHALE 2 PUFFS ACTIVE (S) ORAL INHALATION FOUR TIMES A DAY SHAKE WELL. RINSE MOUTHPIECE FREQUENTLY TO PREVENT CLOGGING. 2) BUPROPION HCL 150MG 12HR SA TAB TAKE ONE TABLET BY ACTIVE MOUTH ONCE A DAY FOR 3 DAYS, THEN TAKE ONE TABLET TWICE A DAY FOR SMOKING CESSATION. SWALLOW WHOLE - DO NOT CRUSH OR CHEW. 3) METHOCARBAMOL 500MG TAB TAKE 1 TABLET BY MOUTH THREE ACTIVE (S) TIMES A DAY NEEDED Active Non-VA Medications Status 1) Non-VA CLOPIDOGREL BISULFATE 75MG TAB 75MG BY MOUTH ACTIVE ONCE A DAY 2) Non-VA LISINOPRIL 40MG TAB 20MG BY MOUTH ONCE A DAY ACTIVE 3) Non-VA ROSUVASTATIN CA 40MG TAB 20MG BY MOUTH EVERY ACTIVE EVENING 4) Non-VA LQQHOUCWIGDO19.5/VILANTEROL 25MCG 30D INH 1 ACTIVE PUFF ORAL INHALATION ONCE A DAY 7 Total Medications REVIEW OF SYSTEMS: General: Normal Weight Gain weight gain, 7# -- drinks 44oz of Big Gulps of Pepsi/day Cardiovascular: Normal HTN - BP today 134/84 Respiratory: Normal ABD/GI: Normal Musculoskeletal/Extremities : Abnormal Pain, Stiffness/reduced ROM right foot pain, instep - present for 1 years /BULK CLERK: Normal Endocrine: Normal Psych: Normal sleeping 7-8 hours/night PHYSICAL EXAMINATION: Male General appearance: VITALS (most recent, as listed in the electronic record): B/P: 134/84 (09/18/2023 13:57) Pulse: 63 (09/18/2023 13:57) Temperature: 98.1 F [36.7 C] (09/18/2023 13:57) Weight: 263.3 lb [119.43 kg] (09/18/2023 13:57) Height: 75 in [190.5 cm] (08/10/2022 12:05) BMI: 33.0 Pain: 0 (09/18/2023 13:57) (0-10 scale) Patient Weight History - Last Four 1. 263.3 lbs. / 119.4 kg. on SEP 18, 2023@13:57:35 2. 264.0 lbs. / 119.8 kg. on AUG 30, 2023@14:51:54 3. 256.6 lbs. / 116.4 kg. on FEB 15, 2023@10:59:36 4. 259.7 lbs. / 117.8 kg. on FEB 08, 2023@13:47:02 Cardiovascular: Distant heart sounds, RRR, no S3/4/murmur. No carotid bruit bilaterally Respiratory: Diminished breath sounds in bases bilaterally, BS absent in LLL ABD/GI: BS present, no HSM/rebound pain/guarding MSK: Bilateral paraspinal tenderness to palpiation, ambulates without difficulty. Right foot, no swelling, noted to have lateral deformity at instep Psych: Conversational, appropriate Skin: Right upper chest, 2mm raised, light schaefer DATA REVIEW: HbA1C: HGA1C 6.0 % 02/15/2023 11:44 Lipid Panel: TRIGLYCERIDE 80 mg/dL 02/15/2023 11:44 CHOLESTEROL 130 mg/dL 02/15/2023 11:44 HDL(New) 35 L mg/dL 02/15/2023 11:44 CALCULATED LDL 79 mg/dL 02/15/2023 11:44 CMP: SODIUM 141 mEq/L 02/15/2023 11:44 POTASSIUM 4.3 [...] 11:44 EGFR (CKD-EPI 2020) 69.90 02/15/2023 11:44 CBC: WBC 9.8 10*3/uL 02/15/2023 11:44 RBC 4.68 [...] 11:44 BASOPHILS, ABSOLUTE 0.05 10*3/uL 02/15/2023 11:44 PSA: PROST. SPECIFIC AG.(PB-STL) 0.518 ng/mL 02/15/2023 11:44 TSH: TSH 0.778 uIU/mL 02/15/2023 11:44 INR: No INR EO data found UA: URINE COLOR Yellow 02/15/2023 11:49 APPEARANCE Clear 02/15/2023 11:49 U.PH 6.0 02/15/2023 11:49 U.BILIRUBIN Negative mg/dL 02/15/2023 11:49 U.NITRITE Negative mg/dL 02/15/2023 11:49 Dilantin: ____ Digoxin: No data available for: DIGOXIN Chest x-ray: Impression for CHEST X-RAY, 2 VIEWS, 11/28/20, case [id number] Postoperative changes right lung. No active pulmonary disease. EKG: No data available for: EKG CONSULT STL EKG CONSULTS PB EKG RESULTS MA Result: Above target Follow-up Action: repeat Data results reviewed with patient and/or caregiver. 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 Rivera. Completed thorax CT 08/28/2023. COPD, using Anoro MDI one puff/daily. 2) Neoplasm of uncertain behavior, observe for now, AK. 3) Dyspnea, discussed deconditioning with pt, he is inactive. Pt requesting referral to [place]. 4) Right foot pain, obtain screening x-rays. 5) Chronic lumbarspondylosis, reports is still an -01/10. No recent falls. 6) Hx of CVA in 2013, taking Clopidogrel 75mg daily. 7) Hyperlipidemia, continues taking Rosuvastatin 20mg daily. 8) Weight gain, continues to drink Regular Pepsi, discussed today. 9) HTN with CKD IIIa, controlled on current regimen. 10) Colon polyps, entered a repeat CRC. RETURN TO CLINIC: >>>>>>>>>>>>>>>>> APR 2024 Return to Clinic order placed SUMMARY STATEMENT: Plan of care has been discussed with including expected therapeutic benefits and potential side effects of prescribed medication and treatments. verbalizes understanding and is in agreement with the plan of care. Patient was instructed to keep all scheduled appointments and contact card clothier for any additional problems. PREVENTION & SCREENING: ALCOHOL: Clinical Reminder not due now or within a month BLOOD PRESSURE: Clinical Reminder not due now or within a month HEMOGLOBIN A1C: Clinical Reminder not due now or within a month Sexual Orientation: The patient thinks of their sexual orientation as: Straight or Heterosexual Medication Reconciliation Opt STL: I have reviewed the patient's medication list (including active outpatient prescriptions dispensed from this [place] (local) and dispensed from another [place] or [place] facility (remote) as well as inpatient orders (local pending and active), local clinic medications, locally documented non-VA medications, and local prescriptions that have or been discontinued in the past 90 days.) with the patient and/or his/her care-wall covering installer. Handwritten corrections, additions and/or deletions were made to the list, as appropriate. Corrected Outpatient Medication List was provided to the patient/caregiver. Avg Risk Colorectal Cancer Screen: AVERAGE RISK colorectal cancer screening is due based on information available to this clinical reminder Screening is due now. Colonoscopy consult has been ordered. See orders tab for details. /loreta/ WES SAXENA [facility] ADULT NURSE PRACTITIONER Signed: 09/18/2023 14:40 WES GARCIA [facility] Sep 18, 2023 01:59 PM NURSING NOTE: LOCAL TITLE: V15 PACT FACE TO FACE NOTE STL STANDARD TITLE: NURSING NOTE DATE OF NOTE: SEP 18, 2023@13:59 ENTRY DATE: SEP 18, 2023@14:00:06 AUTHOR: ROD DIAS COSIGNER: URGENCY: STATUS: COMPLETED Provider Visit: Patient Identifiers : Full Name Date of Reason for visit: Established Follow-Up Mode of Arrival: Ambulatory Allergy Review: CHANTIX Allergy list reviewed and remains current. Recent Vital Signs: Temperature: 98.1 F [36.7 C] (09/18/2023 13:57) Pulse: 63 (09/18/2023 13:57) Respiration: 20 (09/18/2023 13:57) B/P: 134/84 (09/18/2023 13:57) Pain: 0 (09/18/2023 13:57) Wt: 263.3 lb [119.43 kg] (09/18/2023 13:57) Ht: 75 in [190.5 cm] (08/10/2022 12:05) BMI: 33.0 POX: 94% (09/18/2023 13:57) Would you like to discuss any personal problem, family problem, alcohol use, drug use, or a mental or emotional illness? No Contact provided Primary Care phone number and encouraged to call if any questions or concerns. Review that after hours nurse line [phone] and emergency room are available 24/12 for patient use. Contact verbalized good understanding. COVID-19 Immunization: Patient received a prior dose of the Pfizer Monovalent vaccine. Documented: COVID-19 (PFIZER), MRNA, LNP-S, PF, AGUILAR-SUCROSE, 30 MCG/0.3 ML (AGES 12+ YEARS) Historical Date Administered: Mar 05, 2023 Series: Series 1 Outside Location: [facility] Information Source: FROM PATIENT'S RECALL Homelessness/Food Insecurity Screen: In the past 2 months, have you been living in stable housing that you own, rent, or stay in as part of a household? Yes - Living in stable housing. Are you worried or concerned that in the next 2 months you may NOT have stable housing that you own, rent, or stay in as part of a household? No - Not worried about housing near future The reports the following: Within the past 12 months, you worried whether your food would run out before you got money to buy more. Never true Within the past 12 months, the food you bought just didn't last and you didn't have money to get more. Never true Influenza Immunization: The patient has received the seasonal influenza vaccine for the current season at another location. Documented: INFLUENZA, UNSPECIFIED FORMULATION Historical Date Administered: Mar 05, 2023 Outside Location: [facility] Information Source: FROM PATIENT'S RECALL Learning Assessment: - * This patient's learning ABILITIES, BARRIERS to learning, CULTURAL and ADVENTISM beliefs, and learning PREFERENCES were assessed. Following are findings of note: Patient reads well. LANGUAGE Patient reports that Yoruba is preferred language for healthcare. Patient reports learning preference is to refer to handouts. Patient reports learning preference is attending one-to-one or group demonstrations. [employer] Weight Loss Program Offer: * Veterans interested in enrolling in the program can do so without a referral. Encourage Veterans to please call to schedule an appointment. /loreta/ ROD DIAS LPN LICENSED PRACTICAL NURSE Signed: 09/18/2023 14:05 ROD DIAS [facility]
--- OUTSIDE RECORDS SUMMARY | 2024-07-30 10:58 | XMS_ITS | Encounter Summary ---
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 Organization [place] Address [address] [place] [address] Care Team Providers Care Moving Picture Operator Name Role Phone JESSICA KAY Primary [...] ACTIV E [place]IGH Jun 03, 2013 [phone] JOSEPHINE DiamondROSITA SPOUSE MEDICARE (WNR) MEDICARE (M) PART A Jul 04, 2016 PART A [id number] HERMES GRIMMY PATIENT MEDICARE (WNR) MEDICARE (M) PART B Jul 04, 2016 PART B [id number] [phone] HERMES GRIMMY PATIENT MEDICARE (WNR) MEDICARE (M) PART A Jul 04, 2016 PART A [id number] EMMASO N,ELI PATIENT MEDICARE (WNR) MEDICARE (M) PART B Jul 04, 2016 PART B [id number] EMMASO N,ELI PATIENT MEDICARE (WNR) MEDICARE (M) PART B Jul 04, 2016 PART B [id number] RICHARDSO N,ELI PATIENT MEDICARE (WNR) MEDICARE (M) PART A Jul 04, 2016 PART A [id number] [phone] RICHARDSO N,ELI PATIENT MEDICARE (WNR) MEDICARE (M) PART A Jul 04, 2016 PART A [id number] [phone] RICHARDSO N,ELI PATIENT MEDICARE (WNR) MEDICARE (M) PART B Jul 04, 2016 PART B [id number] [phone] EMMASO N,ELI PATIENT PRIME THERAPEUTI CS RX PRESCRIPT ION RX PLAN Jun 03, 2013 [id number] [phone] EMMASO N,ELI PATIENT Selected Encounter This section includes the information on record at [place] for the Encounter. Date/Time Encounter Type Encounter Description Reason Provider Source May 21, 2024 10:32 AM Outpatient Encounter CARDIOLOGY ICD-10-CM I48.0 Paroxysmal atrial fibrillation OU,JIAFU IHE Encounter Template Text not used by [place] Assessments - Encounter Diagnoses This section includes the primary and secondary diagnoses documented for the Encounter. Date/Time Primary/Secondary Diagnosis Diagnosis Name Provider Source May 21, 2024 12:25 PM PRIMARY Paroxysmal atrial fibrillation SIMONE STARR [facility] May 21, 2024 12:25 PM SECONDARY Cerebellar stroke syndrome SIMONE STARR [facility] Plan of Treatment: Future Appointments (+ 6 months) and Future Tests (+/- 45 days) The Plan of Treatment section includes future care activities for the patient from all [place] treatmentfacilities. This section includes future appointments and future orders which are active, pending or scheduled. Future Appointments This section includes appointments that were scheduled to occur 6 months from the date of the Encounter, up to a maximum of 20 appointments. The data comes from all [place] treatment facilities. Appointment Date/Time Appointment Type Appointme nt Facility Name Jul 31, 2024 10:15 AM [facility] Aug 28, 2024 02:00 PM [facility] Aug 28, 2024 02:30 PM [facility] Lab Results: +/- 30 days of the encounter This section includes the Chemistry and Hematology Lab Results on record with [place] for the patient. Radiology Reports and Pathology Reports are provided separately, in subsequent sections. Lab Results This section contains the Chemistry/Hematology Results that were resulted 30 days before or 30 daysafter the date of the Encounter. Date/Time Source Result Type Result - Unit Interpretation Reference Range Comment May 20, 2024 02:14 PM [facility] URINALYSIS ([facility]) Specimen Type: URINE No comment entered. Ordering Provider: ANDRES GARCIA Report Released Date/Time: May 20, 2024 08:32 AM Reporting Lab: [facility] [id number] Performing Lab: [facility] [phone] URINE COLOR Light-Yellow Yellow U.BILIRUBIN Negative mg/dL Negative U.PH 7.0 5.0-8.0 APPEARANCE Clear Clear U.NITRITE Negative mg/dL Negative URN.GLUCOSE Normal mg/dL Negative URN.PROTEIN Negative mg/dL URN.UROBILINOGEN 2 mg/dL H Normal URN.BLOOD Negative mg/dL Negative-Tr jason URN.KETONES Negative mg/dL Negative-Tr jason URN.LEUK.EST. Negative mg/dL Negative-Tr jason URN.SPECIFIC GRAVITY 1.016 May 20, 2024 02:04 PM [facility] COMPREHENSIVE METABOLIC PANEL Specimen Type: PLASMA Comment: No hemolysis noted. Ordering Provider: ANDRES GARCIA Report Released Date/Time: May 20, 2024 08:32 AM Reporting Lab: [facility] [phone] Performing Lab: [facility] [phone] CREATININE 1.06 mg/dL 0.70-1.30 UREA NITROGEN 13.3 [...] 76.92 >60 May 20, 2024 02:04 PM [facility] CBC Specimen Type: BLOOD No comment entered. Ordering Provider: ANDRES GARCIA Report Released Date/Time: May 20, 2024 08:32 AM Reporting Lab: [facility] [place] [phone] Performing Lab: [facility] [place] [address] WBC 10.1 10*3/uL 3.6-11.2 RBC 4.67 10*6/uL [...] Encounter. Date/Time Encounter Note(s) Provider Source May 21, 2024 10:32 AM CARDIOLOGY NOTE: LOCAL TITLE: CARDIOLOGY CHART REVIEW STL STANDARD TITLE: CARDIOLOGY NOTE DATE OF NOTE: MAY 21, 2024@10:32 ENTRY DATE: MAY 21, 2024@10:33:05 AUTHOR: NORIS STARR EXP COSIGNER: JACOBO TELLO URGENCY: STATUS: COMPLETED CARDIOLOGY CHART REVIEW STL Has ADDENDA Patient had ischemic CVA in 2013 followed by finding of retinal emboli on optometry in October 2023. He underwent loop recorder implanttaion to look for embolic sources from the heart and was found to have A fib which is why PADR for apixaban was put in by PCP. He is on plavix (prescribed by non [place] provider) and patient is obtaining it from non [place] pharmacy. Indication for plavix is non cardiac (most likley ischemic CVA). He does not have any stents in his coronaries. Recommend to get Neuro inputs on whether to further conyinue plavix or not. /argelia STARR MD FORMING TUBE SELECTOR Signed: 05/21/2024 10:39 /argelia TELLO MD,[facility] STAFF HEAD SAMPLER Cosigned: 05/21/2024 12:24 Receipt Acknowledged By: 05/21/2024 12:06 /argelia [facility] ADULT NURSE PRACTITIONER 05/21/2024 ADDENDUM STATUS: COMPLETED Agree with the above. /argelia TELLO MD,[facility] STAFF HEAD SAMPLER Signed: 05/21/2024 12:25 NORIS STARR [facility]
--- OUTSIDE RECORDS SUMMARY | 2024-07-30 10:58 | XMS_ITS ---
Author Name [facility] [place] Address [address] [place] [address] Care Team Providers Care Head Sugar Reprocess Operator Name Role Phone JESSICA KAY Primary [...] ACTIV E [place] Jun 03, 2013 [id number] [phone] JOSEPHINE DiamondROSITA SPOUSE MEDICARE (WNR) MEDICARE (M) PART A Jul 04, 2016 PART A [id number] JOSEPHINE DiamondELI PATIENT MEDICARE (WNR) MEDICARE (M) PART B Jul 04, 2016 PART B [id number] [phone] RICHARDSO N,ELI PATIENT MEDICARE (WNR) MEDICARE (M) PART A Jul 04, 2016 PART A [id number] [phone] EMMASO N,ELI PATIENT MEDICARE (WNR) MEDICARE (M) PART B Jul 04, 2016 PART B [id number] RICHARDSO N,ELI PATIENT MEDICARE (WNR) MEDICARE (M) PART A Jul 04, 2016 PART A [id number] RICHARDSO N,ELI PATIENT MEDICARE (WNR) MEDICARE (M) PART B Jul 04, 2016 PART B [id number] RICHARDSO N,ELI PATIENT MEDICARE (WNR) MEDICARE (M) PART A Jul 04, 2016 PART A [id number] EMMASO N,ELI PATIENT MEDICARE (WNR) MEDICARE (M) PART B Jul 04, 2016 PART B [id number] EMMASO N,ELI PATIENT PRIME THERAPEUTI CS RX PRESCRIPT ION RX PLAN Jun 03, 2013 [id number] [phone] RICHARDSO N,ELI PATIENT Selected Encounter This section includes the information on record at [place] for the Encounter. Date/Time Encounter Type Encounter Description Reason Pro vider Source October 24, 2023 01:30 PM OFF/OP CNSLTJ NEW/EST LOW 30 GASTROENTEROLOGY ICD-10-CM Z86.010 Personal history of colonic polyps WILLIAM BRANDT IHRedd Encounter Template Text not used by [place] Assessments - Encounter Diagnoses This section includes the primary and secondary diagnoses documented for the Encounter. Date/Time Primary/Secondary Diagnosis Diagnosis Name Provider Source October 24, 2023 01:54 PM PRIMARY Personal history of colonic polyps LENO BRANDT [facility] Plan of Treatment: Future Appointments (+ 6 months) and Future Tests (+/- 45 days) The Plan of Treatment section includes future care activities for the patient from all [place] treatmentfacilities. This section includes future appointments and future orders which are active, pending or scheduled. Future Appointments This section includes appointments that were scheduled to occur 6 months from the date of the Encounter, up to a maximum of 20 appointments. The data comes from all [place] treatment facilities. Appointment Date/Time Appointment Type Appointme nt Facility Name Nov 05, 2023 10:00 AM AMBULATORY - SURGERY [facility] Nov 12, 2023 11:00 AM AMBULATORY - MEDICINE [facility] Nov 21, 2023 01:00 PM AMBULATORY - NONE [facility] Dec 12, 2023 02:00 PM AMBULATORY - NONE [facility] Dec 17, 2023 11:00 AM AMBULATORY - SURGERY [facility] Dec 19, 2023 01:00 PM AM[facility]ULATORY - NONE [facility] Dec 19, 2023 03:00 PM AMBULATORY - MEDICINE [facility] Dec 23, 2023 10:00 AM AMBULATORY - MEDICINE [facility] Dec 26, 2023 01:00 PM [facility]ORY - NONE [facility] Dec 31, 2023 02:00 PM AMBULATORY - NONE [facility] Jan 02, 2024 02:00 PM AMBULATORY - NONE [facility] Jan 03, 2024 01:30 PM AMBULATORY - MEDICINE [facility] Jan 09, 2024 01:00 PM AMB[facility]ATORY - NONE [facility] Jan 22, 2024 01:15 PM AMBULATORY - MEDICINE [facility] Mar 19, 2024 04:30 PM AMBULATORY - MEDICINE [facility] Apr 08, 2024 02:30 PM AMBULATORY - MEDICINE [facility] Apr 16, 2024 07:30 AM AMBULATORY - MEDICINE [facility] Encounter Notes: All associated encounter notes This section contains the clinical notes associated to the Encounter. Date/Time Encounter Note(s) Provider Source November 01, 2023 11:39 AM ADDENDUM: LOCAL TITLE: Addendum STANDARD TITLE: ADDENDUM DATE OF NOTE: NOVEMBER 01, 2023@11:39:17 ENTRY DATE: NOVEMBER 01, 2023@11:39:18 AUTHOR: ALVERTO LANDRUM EXP COSIGNER: URGENCY: STATUS: COMPLETED received written authorization from Dr. Neymar Fuentes for patient to hold clopidrogel 75 mg 7 days prior to colonoscopy. /loreta/ ALVERTO LANDRUM BSN RN REGISTERED NURSE Signed: 11/01/2023 11:40 Receipt Acknowledged By: 11/05/2023 08:12 /loreta/ SHARON SWAIN PHYSICIAN SHOTBLAST EQUIPMENT OPERATOR GI --- Original Document --- 10/24/23 GASTROENTEROLOGY OUTPATIENT CONSULT STL: Attempts were made to complete video consultation without success. Pt was agreeable to complete visit via telephone. Jessenia is a 68 year old [place] who was referred to GI for colorectal cancer screening. Prior colonoscopy in 2019 per pt with 7 polyps removed. He believes this was done at [facility] in [place], [place]; however, PCP states it was done at [facility]. The pt reports getting sick from the bowel prep. He does not recall which prep he had, but that it was a split prep. GI ROS: Currently denies blood in stool, BRBPR. Denies change in bowel habits, diarrhea. + constipation, takes fiber pills with some relief. Denies abdominal or rectal pain. ROS: General: denies weight loss Neuro: denies dizziness/LOC Cardio: denies chest pain Respiratory: denies SOB or LEWIS No recent hospitalizations. Past Medical History: 1) History of colonic polyp 2) Chronic [...] 3 16) Chronic kidney disease stage 3A Pertinent Surgical History: CCK Medication list was reviewed with the patient or care-caregiver services home, any discrepancies were resolved. On the following Active Medications: Active Outpatient Medications (including Supplies): Active Outpatient [...] BY MOUTH EVERY ACTIVE EVENING 4) Non-VA LEQMRKHJHFEJ22.5/VILANTEROL 25MCG 30D INH 1 ACTIVE PUFF ORAL INHALATION ONCE A DAY 7 Total Medications Allergies Reported: CHANTIX Social History: Tobacco use- 6-7 cigarettes ETOH- denies Illicit drugs- denies Pertinent Family History: Dad w/colon polyps Most Recent Labs: WBC:9.8 10*3/uL (02/15/23 11:44) RBC:4.68 10*6/uL (02/15/23 11:44) HGB:HGB 15.0 g/dL 02/15/2023 11:44 HCT:45.9 % (02/15/23 11:44) PLT:PLT 235 10*3/uL 02/15/2023 11:44 Hemoccult: No FOBT EO data found Diagnosis: hx polyps, constipation Hx significant for: 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 Discussed importance of colorectal cancer screening. Explained colonscopy prep/procedure and discussed sedation. Reminded patient that they must have a regional refrigerated cdl truck driver to bring them to the appointment and take them home. Will attempt to get prior records before scheduling to verify when procedure was done and what prep he used before. GI nurse to call for scheduling/education. All questions answered. Pt IS currently taking anticoagulants (Plavix) that need to be held prior to testing (Dr. Fuentes in [place], [place] is prescribing physician). Pt was agreeable to this plan. Time spent on encounter, including time spent speaking with the pt, chart review, and placing orders: 30 minutes 1324 /argelia BRANDT PAC PHYSICIAN SHOTBLAST EQUIPMENT OPERATOR GI Signed: 10/24/2023 14:27 10/31/2023 ADDENDUM STATUS: COMPLETED Colonoscopy records received and reviewed. His last colonoscopy was at [facility] on 01/13/21. Procedure complete to cecum with no comment on prep quality. There were 5 subcentimeter polyps removed from the transverse colon and 2 subcentimeter polyps removed from the descending colon. He also had diverticuli in the descending and sigmoid coolon and internal hemorrhoids noted. Pathology was as follows: Transverse colon -tubular adenomas x 3 -sessile serrated polyp -benign polyp Descending colon -tubular adenomas x 2 Based on this reports, pt is due for another colonoscopy this year. He will need to be able to hold anticoagulation prior to the procedure. Will d/w cardiology provider and proceed with scheduling if given ok to hold. /argelia BRANDT PAC PHYSICIAN SHOTBLAST EQUIPMENT OPERATOR GI Signed: 10/31/2023 10:01 10/31/2023 ADDENDUM STATUS: COMPLETED Correction, plavix is prescribed by outside provider d/t h/o ischemic stroke (Dr. Fuentes in [place], [place] is prescribing physician). Will contact that provider to discuss holding anticoagulation. /argelia BRANDT PAC PHYSICIAN SHOTBLAST EQUIPMENT OPERATOR GI Signed: 10/31/2023 10:03 10/31/2023 ADDENDUM STATUS: COMPLETED request sent asking for authorization to hold plavix 7 days prior to colonoscopy /argelia TURNERN RN REGISTERED NURSE Signed: 10/31/2023 12:17 ALVERTO LANDRUM [facility] October 24, 2023 01:26 PM GASTROENTEROLOGY C ONSULT: LOCAL TITLE: GASTROENTEROLOGY OUTPATIENT CONSULT [facility] STANDARD TITLE: GASTROENTEROLOGY CONSULT DATE OF NOTE: OCTOBER 24, 2023@13:26 ENTRY DATE: OCTOBER 24, 2023@13:27:02 AUTHOR: SHARON BRANDT COSIGNER: URGENCY: STATUS: COMPLETED GASTROENTEROLOGY OUTPATIENT CONSULT ST Has ADDENDA Attempts were made to complete video consultation without success. Pt was agreeable to complete visit via telephone. Jessenia is a 68 year old [place] who was referred to GI for colorectal cancer screening. Prior colonoscopy in 2019 per pt with 7 polyps removed. He believes this was done at [facility] in [place], [place]; however, PCP states it was done at [facility]. The pt reports getting sick from the bowel prep. He does not recall which prep he had, but that it was a split prep. GI ROS: Currently denies blood in stool, BRBPR. Denies change in bowel habits, diarrhea. + constipation, takes fiber pills with some relief. Denies abdominal or rectal pain. ROS: General: denies weight loss Neuro: denies dizziness/LOC Cardio: denies chest pain Respiratory: denies SOB or LEWIS No recent hospitalizations. Past Medical History: 1) History of colonic polyp 2) Chronic [...] 3 16) Chronic kidney disease stage 3A Pertinent Surgical History: CCK Medication list was reviewed with the patient or care-caregiver services home, any discrepancies were resolved. On the following Active Medications: Active Outpatient Medications (including Supplies): Active Outpatient [...] BY MOUTH EVERY ACTIVE EVENING 4) Non-VA RIJHYCJIOIET70.5/VILANTEROL 25MCG 30D INH 1 ACTIVE PUFF ORAL INHALATION ONCE A DAY 7 Total Medications Allergies Reported: CHANTIX Social History: Tobacco use- 6-7 cigarettes ETOH- denies Illicit drugs- denies Pertinent Family History: Dad w/colon polyps Most Recent Labs: WBC:9.8 10*3/uL (02/15/23 11:44) RBC:4.68 10*6/uL (02/15/23 11:44) HGB:HGB 15.0 g/dL 02/15/2023 11:44 HCT:45.9 % (02/15/23 11:44) PLT:PLT 235 10*3/uL 02/15/2023 11:44 Hemoccult: No FOBT EO data found Diagnosis: hx polyps, constipation Hx significant for: 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 Discussed importance of colorectal cancer screening. Explained colonscopy prep/procedure and discussed sedation. Reminded patient that they must have a regional refrigerated cdl truck driver to bring them to the appointment and take them home. Will attempt to get prior records before scheduling to verify when procedure was done and what prep he used before. GI nurse to call for scheduling/education. All questions answered. Pt IS currently taking anticoagulants (Plavix) that need to be held prior to testing (Dr. Fuentes in [place], [place] is prescribing physician). Pt was agreeable to this plan. Time spent on encounter, including time spent speaking with the pt, chart review, and placing orders: 30 minutes 1324 /argelia BRANDT PAC PHYSICIAN SHOTBLAST EQUIPMENT OPERATOR GI Signed: 10/24/2023 14:27 10/31/2023 ADDENDUM STATUS: COMPLETED Colonoscopy records received and reviewed. His last colonoscopy was at [facility] on 01/13/21. Procedure complete to cecum with no comment on prep quality. There were 5 subcentimeter polyps removed from the transverse colon and 2 subcentimeter polyps removed from the descending colon. He also had diverticuli in the descending and sigmoid coolon and internal hemorrhoids noted. Pathology was as follows: Transverse colon -tubular adenomas x 3 -sessile serrated polyp -benign polyp Descending colon -tubular adenomas x 2 Based on this reports, pt is due for another colonoscopy this year. He will need to be able to hold anticoagulation prior to the procedure. Will d/w cardiology provider and proceed with scheduling if given ok to hold. /argelia BRANDT PAC PHYSICIAN SHOTBLAST EQUIPMENT OPERATOR GI Signed: 10/31/2023 10:01 10/31/2023 ADDENDUM STATUS: COMPLETED Correction, plavix is prescribed by outside provider d/t h/o ischemic stroke (Dr. Fuentes in [place], [place] is prescribing physician). Will contact that provider to discuss holding anticoagulation. /argelia BRANDT PAC PHYSICIAN SHOTBLAST EQUIPMENT OPERATOR GI Signed: 10/31/2023 10:03 10/31/2023 ADDENDUM STATUS: COMPLETED request sent asking for authorization to hold plavix 7 days prior to colonoscopy /argelia ALCANTAR RN REGISTERED NURSE Signed: 10/31/2023 12:17 11/01/2023 ADDENDUM STATUS: COMPLETED received written authorization from Dr. Neymar Fuentes for patient to hold clopidrogel 75 mg 7 days prior to colonoscopy. /es/ ALVERTO TURNERN RN REGISTERED NURSE Signed: 11/01/2023 11:40 Receipt Acknowledged By: 11/05/2023 08:12 /loreta/ SHARON BRANDT PAC PHYSICIAN SHOTBLAST EQUIPMENT OPERATOR GI 11/13/2023 ADDENDUM STATUS: COMPLETED Appt letter and instructions mailed per orders. /loreta/ KATHARINE Armenta, RN GI Signed: 11/13/2023 07:18 [facility]
--- OUTSIDE RECORDS SUMMARY | 2024-07-30 10:58 | XMS_ITS | Encounter Summary ---
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 Organization [facility] Address [address] [place] [address] Care Team Providers Care Hog Sawyer Name Role Phone JESSICA KAY Primary Care [...] ACTIV E [place] HIGH Jun 03, 2013 [phone] JOSEPHINE DiamondROSITA SPOUSE MEDICARE (WNR) MEDICARE (M) PART A Jul 04, 2016 PART A [id number] HERMES GRIMMY PATIENT MEDICARE (WNR) MEDICARE (M) PART B Jul 04, 2016 PART B [id number] [phone] RICHARDSO N,ELI PATIENT MEDICARE (WNR) MEDICARE (M) PART A Jul 04, 2016 PART A [id number] EMMASO N,ELI PATIENT MEDICARE (WNR) MEDICARE (M) PART B Jul 04, 2016 PART B [id number] EMMASO N,ELI PATIENT MEDICARE (WNR) MEDICARE (M) PART A Jul 04, 2016 PART A [id number] RICHARDSO N,ELI PATIENT MEDICARE (WNR) MEDICARE (M) PART B Jul 04, 2016 PART B [id number] [phone] RICHARDSO N,ELI PATIENT MEDICARE (WNR) MEDICARE (M) PART B Jul 04, 2016 PART B [id number] EMMASO N,ELI PATIENT MEDICARE (WNR) MEDICARE (M) PART A Jul 04, 2016 PART A [id number] EMMASO N,ELI PATIENT PRIME THERAPEUTI CS RX PRESCRIPT ION RX PLAN Jun 03, 2013 [id number] [phone] EMMASO N,ELI PATIENT Selected Encounter This section includes the information on record at [place] for the Encounter. Date/Time Encounter Type Encounter Description Reason Provider Source May 20, 2024 01:00 PM OFFICE O/P EST MOD 30 MIN PRIMARY CARE/MEDICINE ICD-10-CM I48.0 Paroxysmal atrial fibrillation MCQUAIDE,THER ELY IHE Encounter Template Text not used by [place] Assessments - Encounter Diagnoses This section includes the primary and secondary diagnoses documented for the Encounter. 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 MCCHRISTEN,THERE [facility] May 20, 2024 02:03 PM SECONDARY Cerebellar stroke syndrome MCQUAMANDA,THERE [facility] May 20, 2024 02:03 PM SECONDARY Chronic kidney disease, stage 3a MCCHRISTEN,THERE [facility] May 20, 2024 02:03 PM SECONDARY Chronic obstructive pulmonary disease, unspecified MCQUAIDE,THERE [facility] May 20, 2024 02:03 PM SECONDARY Dyspnea, unspecified MCQUAIDE,THERE [facility] May 20, 2024 02:03 PM SECONDARY Hyp hrt & chr kdny dis w/o hrt fail, w stg 1-4/unsp chr kdny MCQUAIDE,THERE [facility] May 20, 2024 02:03 PM SECONDARY Hyperlipidemia, unspecified MCQUAIDE,THERE [facility] Plan of Treatment: Future Appointments (+ 6 months) and Future Tests (+/- 45 days) The Plan of Treatment section includes future care activities for the patient from [facility] This section includes future appointments and future orders which are active, pending or scheduled. Future Appointments This section includes appointments that were scheduled to occur 6 months from the date of the Encounter, up to a maximum of 20 appointments. The data comes from all [facility] facilities. Appointment Date/Time Appointment Type Appointme nt Facility Name Jul 31, 2024 10:15 AM AMBULATORY - MEDICINE [facility] Aug 28, 2024 02:00 PM AMBULATORY - MEDICINE [facility] Aug 28, 2024 02:30 PM AMBULATORY - MEDICINE [facility] Lab Results: +/- 30 days of the encounter This section includes the Chemistry and Hematology Lab Results on record with [place] for the patient. Radiology Reports and Pathology Reports are provided separately, in subsequent sections. Lab Results This section contains the Chemistry/Hematology Results that were resulted 30 days before or 30 daysafter the date of the Encounter. Date/Time Source Result Type Result - Unit Interpretation Reference Range Comment May 20, 2024 02:14 PM [facility] URINALYSIS (STL-PB) Specimen Type: URINE No comment entered. Ordering Provider: ANDRES GARCIA Report Released Date/Time: May 20, 2024 08:32 AM Reporting Lab: [facility] [facility] [id number] Performing Lab: [facility] [facility] [id number] URINE COLOR Light-Yellow Yellow U.BILIRUBIN Negative mg/dL Negative U.PH 7.0 5.0-8.0 APPEARANCE Clear Clear U.NITRITE Negative mg/dL Negative URN.GLUCOSE Normal mg/dL Negative URN.PROTEIN Negative mg/dL URN.UROBILINOGEN 2 mg/dL H Normal URN.BLOOD Negative mg/dL Negative-Tr jason URN.KETONES Negative mg/dL Negative-Tr jason URN.LEUK.EST. Negative mg/dL Negative-Tr jason URN.SPECIFIC GRAVITY 1.016 May 20, 2024 02:04 PM [facility] COMPREHENSIVE METABOLIC PANEL Specimen Type: PLASMA Comment: No hemolysis noted. Ordering Provider: CIERRA GARCIA RADHA Report Released Date/Time: May 20, 2024 08:32 AM Reporting Lab: [facility] [place] [id number] Performing Lab: [facility] [address] [place] [address] CREATININE 1.06 mg/dL 0.70-1.30 UREA NITROGEN 13.3 [...] 76.92 >60 May 20, 2024 02:04 PM [facility] CBC Specimen Type: BLOOD No comment entered. Ordering Provider: CIERRA GARCIA RADHA Report Released Date/Time: May 20, 2024 08:32 AM Reporting Lab: [facility] [place] [address] Performing Lab: [facility] [address] [place] [address] [facility] [place] [phone] WBC 10.1 10*3/uL 3.6-11.2 RBC 4.67 10*6/uL [...] 10*3/uL 0.00-0.60 BASOPHILS, ABSOLUTE 0.06 10*3/uL 0.00-0.20 Vital Signs: All taken on the encounter date This section contains inpatient and outpatient Vital Signs collected on the date of the Encounter. Date/Time Temperature Pulse Blood Pressure Respiratory Rate SP02 Pain Height Weight Body Mass Index Source May 20, 2024 01:02 PM 136/86 [facility] May 20, 2024 01:02 PM 98.1 64 148/89 20 98 7 265.1 33 [facility] Social History: Smoking Status (Most current) and Tobacco Use (All prior to encounter date) This section includes the most current, and the historical, smoking and tobacco- related health factors from the [place] facility where the Encounter took place. Current Smoking Status This section includes the most current smoking, or tobacco-related health factor, from the [place] facility where the Encounter took place. Date/Time Current Smoking Status Nuria garcia Apr 08, 2024 02:30 PM VA-TOBACCO USE CARYN RY DAY CIGARETTES [facility] Tobacco Use History This section includes a history of the smoking, or tobacco-related health factors, that were collected on or before the date of the Encounter. The data comes from the [place] facility where the Encounter took place. Date/Time Smoking Status/Tobacco Use Comment F acility Apr 08, 2024 02:30 PM VA-TOBACCO SCREEN FOLLOW-UP [facility] Apr 08, 2024 02:30 PM VA-TOBACCO USE ADVICE [facility] Apr 08, 2024 02:30 PM VA-TOBACCO USE PIPE FITTER GAS PIPE NO [facility] Apr 08, 2024 02:30 PM VA-TOBACCO USE CARYN RY DAY CIGARETTES [facility] Apr 08, 2024 02:30 PM VA-TOBACCO USE MED NO [facility] Feb 15, 2023 11:00 AM VA-TOBACCO USE 30 YEARS OR MORE [facility] Feb 15, 2023 11:00 AM VA-TOBACCO USE ADVICE [facility] Feb 15, 2023 11:00 AM VA-TOBACCO USE PIPE FITTER GAS PIPE NO [facility] Feb 15, 2023 11:00 AM VA-TOBACCO USE MED NO [facility] Feb 15, 2023 11:00 AM VA-TOBACCO USE WI 30 MIN OF WAKEUP [facility] Feb 15, 2023 11:00 AM VA-TOBACCO USER EVERY DAY [facility] Feb 19, 2022 11:30 AM VA-TOBACCO DOESNT USE WI 30 MIN WAKEUP [facility] Feb 19, 2022 11:30 AM VA-TOBACCO USE 30 YEARS OR MORE [facility] Feb 19, 2022 11:30 AM VA-TOBACCO USE ADVICE [facility] Feb 19, 2022 11:30 AM VA-TOBACCO USE PIPE FITTER GAS PIPE NO [facility] Feb 19, 2022 11:30 AM VA-TOBACCO USE MED NO [facility] Feb 19, 2022 11:30 AM VA-TOBACCO USER EVERY DAY [facility] October 11, 2020 10:30 AM VA-TOBACCO FORMER USER [facility] October 11, 2020 10:30 AM VA-TOBACCO QUIT < [address] [facility] Encounter Notes: All associated encounter notes This section contains the clinical notes associated to the Encounter. Date/Time Encounter Note(s) Provider Source Jun 02, 2024 01:41 PM PHYSICIAN LETTERS: LOCAL TITLE: TEST RESULT GENERAL LETTER [facility] STANDARD TITLE: PHYSICIAN LETTERS DATE OF NOTE: JUN 02, 2024@13:41 ENTRY DATE: JUN 02, 2024@13:41:11 AUTHOR: WES GARCIA COSIGNER: URGENCY: STATUS: COMPLETED [facility] [address] [place] [address] JUN 02, 2024 ELI RUELAS [address] [facility] [place] [phone] Dear Eli Ruelas, I would like to update you on your recent test results. GLUCOSE - Your blood sugar or glucose level result GLUCOSE GLUCOSE 102 H mg/dL 05/20/2024 14:04 These readings are within normal limits. CBC - A complete blood count (CBC) gives important information about the kinds and numbers of cells in the blood, especially red blood cells, white blood cells, and platelets. HGB 15.2 g/dL 05/20/2024 14:04 HEMATOCRIT 46.8 % (05/20/24 14:04) PLT 212 10*3/uL 05/20/2024 14:04 WHITE BLOOD COUNT 10.1 10*3/uL (05/20/24 14:04) These readings are within normal limits. CHEM 7 - This is important information about the current status of your kidneys, liver, and electrolyte and acid/base balance as well as of your blood sugar and blood proteins. SODIUM 140 mEq/L 05/20/2024 14:04 POTASSIUM 4.6 mEq/L 05/20/2024 14:04 CHLORIDE 106 mEq/L 05/20/2024 14:04 UREA NITROGEN 13.3 mg/dL 05/20/2024 14:04 CREATININE 1.06 mg/dL 05/20/2024 14:04 CALCIUM 10.2 mg/dL 05/20/2024 14:04 CARBON DIOXIDE 27 mEq/L 05/20/2024 14:04 GLUCOSE 102 H mg/dL 05/20/2024 14:04 EGFR (CKD-EPI 2020) 76.92 05/20/2024 14:04 These readings are within normal limits. LIVER FUNCTION PANEL - These are tests for liver function: PROTEIN 7.1 g/dL 05/20/2024 14:04 ALBUMIN 4.1 g/dL 05/20/2024 14:04 TOTAL BILIRUBIN 0.6 mg/dL 05/20/2024 14:04 ALKALINE PHOSPHATASE 96 U/L 05/20/2024 14:04 AST/SGOT 19 U/L 05/20/2024 14:04 ALT/SGPT 13 U/L 05/20/2024 14:04 These readings are within normal limits. URINALYSIS - A urinalysis (or UA ) is an array of tests performed on urine and one of the most common methods of medical diagnosis. URINALYSIS URINE COLOR Light-Yellow 05/20/2024 14:14 APPEARANCE Clear 05/20/2024 14:14 U.PH 7.0 05/20/2024 14:14 U.BILIRUBIN Negative mg/dL 05/20/2024 14:14 U.NITRITE Negative mg/dL 05/20/2024 14:14 These readings are within normal limits. PLAN Please continue your treatment as we discussed during your visit. If you have any questions please call your case work aide. I look forward to seeing you at your next clinic appointment. Thank you for choosing the [facility] for your healthcare. FUTURE APPOINTMENTS: 07/31/2024 14:00 [facility]-PACT E3 PCP 08/28/2024 14:00 JOSELYN-PFT-JOSELYN 08/28/2024 14:30 JOSELYN-PULMONARY INTERVENTION 2025 13:00 JOSELYN-CARDIOLOGY F4 Sincerely, WES [facility] ADULT NURSE PRACTITIONER ELI RUELAS,WES [facility] May 20, 2024 01:32 PM PRIMARY CARE NOTE: LOCAL TITLE: PRIMARY CARE PROVIDER ESTABLISHED VISIT [facility] STANDARD TITLE: PRIMARY CARE NOTE DATE OF NOTE: MAY 20, 2024@13:32 ENTRY DATE: MAY 20, 2024@13:32:45 AUTHOR: WES GARCIA EXP COSIGNER: URGENCY: STATUS: COMPLETED ESTABLISHED PATIENT [id number]: REASON FOR VISIT/CHIEF COMPLAINT: Scheduled for 5-week evaluation, regarding PAF HPI: PAF noted on loop-recorder per [facility]-Cardiology, informing PCP to initate pt on DOAC. PT is asymptomatic. No hx of GI bleed. Taking Clopidogrel 75mg daily due to prior hx of CVA. Continues to report dyspnea, nocturnal cough, periodic swelling in legs. 2-D Echocardiogram, Bubble Study 01/03/2024 Impression: 1) Bubble study is negative for right to left shunt 2) Normal biventricular size and function 3) Mild diastolic dysfunction, Grade I 4) LAE 5) Inferior vena cava is normal in size with normal inspiratory variation, consistent with estimated right atrial pressure of 3mmHG 6) No hemodynamically significant valvular abnormality. 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 Followed per [facility] by Dr. Rivera. COPD, Using Albuterol 90mcg 2 puffs, 4 times a day and Umeclidinium 62.5/Vilanterol 25mcg 1 puff daily. Cough at night, dry. Nicotine abuse, using E-vape very rarely. Hyperlipidemia, taking Rosuvastatin 20mg daily. HTN with CKD IIIa, blood pressure today, 136/86, taking Lisinopril 20mg daily History of colon polyps, completed repeat CRC in January 2024. Polyps present, repeat in 7 years recommended. WHAT IS YOUR GOAL FOR TODAY? I really don't feel any different, are you sure that I need this ? SOURCE(S) OF HISTORY: Patient PAST MEDICAL HISTORY: [...] 3 16) Chronic kidney disease stage 3A 17) CVA - Cerebrovascular accident FAMILY HISTORY: SOCIAL HISTORY: NICOTINE: Nicotine User: Yes Type [...] medication list with the patient and/or his/her care-enterprise application administrator. Handwritten corrections, additions and/or deletions were made to the list. Corrected Outpatient Medication List was provided to the patient/caregiver. Active Outpatient Medications (including Supplies): Active Outpatient Medications Status 1) ALBUTEROL 90MCG (CFC-F) 200D ORAL INHL INHALE 2 PUFFS ORAL ACTIVE INHALATION FOUR TIMES A DAY SHAKE WELL. RINSE MOUTHPIECE FREQUENTLY TO PREVENT CLOGGING. Indication: FOR COPD 2) BUPROPION HCL 150MG 12HR SA TAB TAKE ONE TABLET BY MOUTH ACTIVE TWICE A DAY FOR . SWALLOW WHOLE - DO NOT CRUSH OR CHEW. Indication: SMOKING CESSATION 3) METHOCARBAMOL 500MG TAB TAKE 1 TABLET BY MOUTH THREE TIMES A ACTIVE DAY NEEDED Indication: FOR MUSCLE SPASM Active Non-VA Medications Status 1) Non-VA CLOPIDOGREL BISULFATE 75MG TAB 75MG BY MOUTH ONCE A ACTIVE DAY 2) Non-VA LISINOPRIL 40MG TAB 20MG BY MOUTH ONCE A DAY ACTIVE 3) Non-VA ROSUVASTATIN CA 40MG TAB 20MG BY MOUTH EVERY EVENING ACTIVE 4) Non-VA IQNHZQARLDME39.5/VILANTEROL 25MCG 30D INH 1 PUFF ORAL ACTIVE INHALATION ONCE A DAY 7 Total Medications REVIEW OF SYSTEMS: General: Normal Weight Loss weight loss, 5# Cardiovascular: Normal HTN BP elevated, 136/86 Respiratory: Normal SOB dyspnea ABD/GI: Normal Musculoskeletal/Extremities : Normal /BUDGET COUNSELOR: Normal Endocrine: Normal Psych: Normal sleeping 8 hours/night PHYSICAL EXAMINATION: Male General appearance: VITALS (most recent, as listed in the electronic record): B/P: 136/86 (05/20/2024 13:02) Pulse: 64 (05/20/2024 13:02) Temperature: 98.1 F [36.7 C] (05/20/2024 13:02) Weight: 265.1 lb [120.25 kg] (05/20/2024 13:02) Height: 75 in [190.5 cm] (08/10/2022 12:05) BMI: 33.2 Pain: 7 (05/20/2024 13:02) (0-10 scale) Patient Weight History - Last Four 1. 265.1 lbs. / 120.3 kg. on MAY 20, 2024@13:02:35 2. 270.0 lbs. / 122.5 kg. on APR 08, 2024@14:39:23 3. 263.7 lbs. / 119.6 kg. on DEC 19, 2023@14:51:49 4. 260.6 lbs. / 118.2 kg. on OCTOBER 10, 2023@13:43:47 HGA1C 6.3 H % 04/08/2024 15:32 HGA1C 6.0 % 02/15/2023 11:44 HGA1C 5.8 % 02/19/2022 11:04 HGA1C 5.9 % 08/24/2021 12:12 HGA1C 5.9 % 10/11/2020 11:43 Cardiovascular:RRR, no S3/4/murmur. Respiratory: Diminished breath sounds in bases bilaterally ABD/GI: BS present, no tenderness to palpation MSK: Ambulates without difficulty. Trace edema Psych: Conversational, appropriate DATA REVIEW: HbA1C: HGA1C 6.3 H % 04/08/2024 15:32 Lipid Panel: TRIGLYCERIDE 110 mg/dL 04/08/2024 15:32 CHOLESTEROL 147 mg/dL 04/08/2024 15:32 HDL(New) 35 L mg/dL 04/08/2024 15:32 CALCULATED LDL 90 mg/dL 04/08/2024 15:32 CMP: SODIUM 141 mEq/L 04/08/2024 15:32 POTASSIUM 4.2 mEq/L 04/08/2024 15:32 CHLORIDE 105 mEq/L 04/08/2024 15:32 UREA NITROGEN 11.6 mg/dL 04/08/2024 15:32 CREATININE 1.07 mg/dL 04/08/2024 15:32 CALCIUM 10.3 mg/dL 04/08/2024 15:32 PROTEIN 7.4 g/dL 04/08/2024 15:32 ALBUMIN 3.9 g/dL 04/08/2024 15:32 ALKALINE PHOSPHATASE 91 U/L 04/08/2024 15:32 ALT/SGPT 13 U/L 04/08/2024 15:32 AST/SGOT 12 U/L 04/08/2024 15:32 TOTAL BILIRUBIN 0.4 mg/dL 04/08/2024 15:32 CARBON DIOXIDE 27 mEq/L 04/08/2024 15:32 GLUCOSE 102 H mg/dL 04/08/2024 15:32 EGFR (CKD-EPI 2020) 76.06 04/08/2024 15:32 CBC: WBC 9.3 10*3/uL 04/08/2024 15:32 RBC 4.43 10*6/uL 04/08/2024 15:32 HGB 14.6 g/dL 04/08/2024 15:32 HCT 44.4 % 04/08/2024 15:32 MCV 100.2 H fL 04/08/2024 15:32 MCH 33.0 pg 04/08/2024 15:32 MCHC 32.9 L g/dL 04/08/2024 15:32 RDW 14.0 % 04/08/2024 15:32 PLT 217 10*3/uL 04/08/2024 15:32 MPV 9.8 fL 04/08/2024 15:32 NEUTROPHILS, AUTO % 67 % 04/08/2024 15:32 LYMPHOCYTES, AUTO % 21 % 04/08/2024 15:32 MONOCYTES, AUTO % 9 % 04/08/2024 15:32 EOSINOPHILS, AUTO % 1 % 04/08/2024 15:32 BASOPHILS, AUTO % 1 % 04/08/2024 15:32 NEUTROPHILS, ABSOLUTE 6.26 10*3/uL 04/08/2024 15:32 LYMPHOCYTES, ABSOLUTE 1.99 10*3/uL 04/08/2024 15:32 MONOCYTES, ABSOLUTE 0.81 H 10*3/uL 04/08/2024 15:32 EOSINOPHILS, ABSOLUTE 0.12 10*3/uL 04/08/2024 15:32 BASOPHILS, ABSOLUTE 0.08 10*3/uL 04/08/2024 15:32 PSA: PROST. SPECIFIC AG.(PB-STL) 0.518 ng/mL 02/15/2023 11:44 TSH: TSH 1.120 uIU/mL 04/08/2024 15:32 INR: No INR EO data found UA: URINE COLOR Yellow 04/08/2024 15:39 APPEARANCE Clear 04/08/2024 15:39 U.PH 6.5 04/08/2024 15:39 U.BILIRUBIN Negative mg/dL 04/08/2024 15:39 U.NITRITE Negative mg/dL 04/08/2024 15:39 Dilantin: ____ Digoxin: No data available for: DIGOXIN Chest x-ray: Impression for CHEST X-RAY, 2 VIEWS, 11/28/20, case [id number] Postoperative changes right lung. No active pulmonary disease. EKG: No data available for: EKG CONSULT STL EKG CONSULTS PB EKG RESULTS MA Result: Above target Follow-up Action: repeat Data results reviewed with patient and/or ASSESSMENT/PLAN: 1) PAF noted on loop-recorder per Dr. Barnes, present to initate on DOAC. 12-lead EKG completed along with labs. CP Bogers aware about new start and discussed with pt. 2) Dyspnea, discussed obtaining Echocardiogram; however, completed in January 2024. Monitor for now. Likely, from reduced atrial kick, PAF. 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 Followed per [facility] by Dr. Rivera. 4) COPD, Using Albuterol 90mcg 2 puffs, 4 times a day and Umeclidinium 62.5/Vilanterol 25mcg 1 puff daily. Cough at night, dry. 5) Hyperlipidemia, taking Rosuvastatin 20mg daily. 6) HTN with CKD IIIa taking Lisinopril 20mg daily 7) HM, repeat labs completed RETURN TO CLINIC: >>>>>>>>>>> Return to Clinic order placed SUMMARY STATEMENT: Plan of care has been discussed with including expected therapeutic benefits and potential side effects of prescribed medication and treatments. verbalizes understanding and is in agreement with the plan of care. Patient was instructed to keep all scheduled appointments and contact tennis coach for any additional problems. PREVENTION & SCREENING: ALCOHOL: Clinical Reminder not due now or within a month BLOOD PRESSURE: Clinical Reminder not due now or within a month HEMOGLOBIN A1C: Clinical Reminder not due now or within a month // [facility] ADULT NURSE PRACTITIONER Signed: 05/20/2024 14:03 WES GARCIA [facility] May 20, 2024 01:05 PM NURSING NOTE: LOCAL TITLE: V15 PACT FACE TO FACE NOTE ST STANDARD TITLE: NURSING NOTE DATE OF NOTE: MAY 20, 2024@13:05 ENTRY DATE: MAY 20, 2024@13:05:59 AUTHOR: ROD DIAS COSIGNER: URGENCY: STATUS: COMPLETED Provider Visit: Patient Identifiers : Full Name Date of Reason for visit: Established Follow-Up Mode of Arrival: Ambulatory Allergy Review: CHANTIX Allergy list reviewed and remains current. Recent Vital Signs: Temperature: 98.1 F [36.7 C] (05/20/2024 13:02) Pulse: 64 (05/20/2024 13:02) Respiration: 20 (05/20/2024 13:02) B/P: 136/86 (05/20/2024 13:02) Pain: 7 (05/20/2024 13:02) Wt: 265.1 lb [120.25 kg] (05/20/2024 13:02) Ht: 75 in [190.5 cm] (08/10/2022 12:05) BMI: 33.2 POX: 98% (05/20/2024 13:02) Would you like to discuss any personal problem, family problem, alcohol use, drug use, or a mental or emotional illness? No Contact provided Primary Care phone number and encouraged to call if any questions or concerns. Review that after hours nurse line [phone] and emergency room are available 24/12 for patient use. Contact verbalized good understanding. Pneumococcal PPSV23 (Pneumovax) - L,N,P,PH,U: The patient declines to receive the recommended dose of PPSV23 vaccine. Immunization: PNEUMOCOCCAL POLYSACCHARIDE PPV23 Refusal Reason: PATIENT DECISION Patient refuses all immunization(s) in the PneumoPPV group Date Documented: 05/20/24 13:06 /loreta/ ROD DIAS LPN LICENSED PRACTICAL NURSE Signed: 05/20/2024 13:07 ROD DIAS [facility]
--- NOTE | 2024-07-30 10:59 | PC.NURSE ---
Pt tolerating BiPap well/. Isolation Droplet Precautions initiated for positive Influenza A
--- OUTSIDE RECORDS SUMMARY | 2024-07-30 10:59 | XMS_ITS | Encounter Summary ---
Author Name [facility] [place] Organization [facility] [place] Address [address] [place] [address] Care Team Providers Care Marketing Performance Analyst Name Role Phone JESSICA KAY Primary Care [...] ACTIV E [place] HIGH Jun 03, 2013 [id number] [phone] JOSEPHINE DiamondROSITA SPOUSE MEDICARE (WNR) MEDICARE (M) PART B Jul 04, 2016 PART B [id number] [phone] JOSEPHINE DiamondELI PATIENT MEDICARE (WNR) MEDICARE (M) PART A Jul 04, 2016 PART A [id number] [phone] RICHARDSO N,ELI PATIENT MEDICARE (WNR) MEDICARE (M) PART A Jul 04, 2016 PART A [id number] EMMASO N,ELI PATIENT MEDICARE (WNR) MEDICARE (M) PART B Jul 04, 2016 PART B [id number] EMMASO N,ELI PATIENT MEDICARE (WNR) MEDICARE (M) PART A Jul 04, 2016 PART A [id number] RICHARDSO N,ELI PATIENT MEDICARE (WNR) MEDICARE (M) PART B Jul 04, 2016 PART B [id number] RICHARDSO N,ELI PATIENT MEDICARE (WNR) MEDICARE (M) PART A Jul 04, 2016 PART A [id number] EMMASO N,ELI PATIENT MEDICARE (WNR) MEDICARE (M) PART B Jul 04, 2016 PART B [id number] [phone] EMMASO N,ELI PATIENT PRIME THERAPEUTI CS RX PRESCRIPT ION RX PLAN Jun 03, 2013 [id number] [phone] EMMASO N,ELI PATIENT Selected Encounter This section includes the information on record at [place] for the Encounter. Date/Time Encounter Type Encounter Description Reason Provider Source Sep 18, 2023 02:30 PM CPTR OPHTH DX IMG POST SEGMT OPTOMETRY ICD-10-CM H34.211 Partial retinal artery occlusion, right eye GILBERT WOODRUFF IHRedd Encounter Template Text not used by [place] Assessments - Encounter Diagnoses This section includes the primary and secondary diagnoses documented for the Encounter. Date/Time Primary/Secondary Diagnosis Diagnosis Name Provider Source Sep 19, 2023 02:19 PM PRIMARY Partial retinal artery occlusion, right eye ELSY MONAE [facility] Sep 19, 2023 02:19 PM SECONDARY Age-related nuclear cataract, bilateral ELIJAH FALCON [facility] Sep 19, 2023 02:19 PM SECONDARY Presbyopia ELIJAH FALCON [facility] Plan of Treatment: Future Appointments (+ 6 months) and Future Tests (+/- 45 days) The Plan of Treatment section includes future care activities for the patient from all [place] [facility]. This section includes future appointments and future orders which are active, pending or scheduled. Future Appointments This section includes appointments that were scheduled to occur 6 months from the date of the Encounter, up to a maximum of 20 appointments. The data comes from all [place] treatment facilities. Appointment Date/Time Appointment Type Appointme nt Facility Name October 10, 2023 01:30 PM AMBULATORY - MEDICINE [facility] October 22, 2023 10:00 AM AMBULATORY - SURGERY [facility] October 24, 2023 01:30 PM AMBULATORY - MEDICINE [facility] Nov 05, 2023 10:00 AM AMBULATORY - SURGERY [facility] Nov 12, 2023 11:00 AM AMBULATORY - MEDICINE [facility] Nov 21, 2023 01:00 PM AMBULATORY - NONE [facility] Dec 12, 2023 02:00 PM AMBULATORY - NONE [facility] Dec 17, 2023 11:00 AM AMBULATORY - SURGERY [facility] Dec 19, 2023 01:00 PM AM[facility]ULATORY - NONE [facility] Dec 19, 2023 03:00 PM AMBULATORY - MEDICINE [facility] Dec 23, 2023 10:00 AM AMBULATORY - MEDICINE [facility] Dec 26, 2023 01:00 PM AMBULATORY - NONE [facility] Dec 31, 2023 02:00 PM AMBULATORY - NONE [facility] Jan 02, 2024 02:00 PM AMBULATORY - NONE [facility] Jan 03, 2024 01:30 PM AMBULATORY - MEDICINE [facility] Jan 09, 2024 01:00 PM AMBULATORY - NONE [facility] Jan 22, 2024 01:15 PM AMBULATORY - MEDICINE [facility] Mar 19, 2024 04:30 PM AMBULATORY - MEDICINE [facility] Lab Results: +/- 30 days of the [...] Range Comment Aug 28, 2023 03:23 PM [facility] I-STAT, CREAT (STL-MA) Specimen Type: BLOOD Comment: Test Performed by: [id number] Meter #: [id number] Ordering Provider: STANTON GARCIA Report Released Date/Time: Aug 28, 2023 04:17 PM Reporting Lab: [facility] [address] [facility] [id number] Performing Lab: [facility] [address] [facility] [id number] I-STAT, CREAT (STL-MA) 1.0 mg/dL 0.7-1.3 Vital Signs: All taken on the encounter date This section contains inpatient and outpatient Vital Signs collected on the date of the Encounter. Date/Time Temperature Pulse Blood Pressure Respiratory Rate SP02 Pain Height Weight Body Mass Index Source Sep 18, 2023 01:57 PM 98.1 63 134/84 20 94 0 263.3 33 [facility] Social History: Smoking Status (Most current) and Tobacco Use (All prior to encounter date) This section includes the most current, and the historical, smoking and tobacco- related health factors from the [place] facility where the Encounter took place. Current Smoking Status This section includes the most current smoking, or tobacco-related health factor, from the [place] facility where the Encounter took place. Date/Time Current Smoking Status Comment Facil ity Feb 15, 2023 11:00 AM VA-TOBACCO USE WI 30 MIN OF WAKEUP [facility] Tobacco Use History This section includes a history of the smoking, or tobacco-related health factors, that were collected on or before the date of the Encounter. The data comes from the [place] facility where the Encounter took place. Date/Time Smoking Status/Tobacco Use Comment F acility Feb 15, 2023 11:00 AM VA-TOBACCO USE ADVICE [facility] Feb 15, 2023 11:00 AM VA-TOBACCO USE LICENSED CLINICAL SOCIAL WORKER NO [facility] Feb 15, 2023 11:00 AM VA-TOBACCO USE MED NO [facility] Feb 15, 2023 11:00 AM VA-TOBACCO USE WI 30 MIN OF WAKEUP [facility] Feb 15, 2023 11:00 AM VA-TOBACCO USER EVERY DAY [facility] Feb 19, 2022 11:30 AM VA-TOBACCO DOESNT USE WI 30 MIN WAKEUP [facility] Feb 19, 2022 11:30 AM VA-TOBACCO USE 30 YEARS OR MORE [facility] Feb 19, 2022 11:30 AM VA-TOBACCO USE ADVICE [facility] Feb 19, 2022 11:30 AM VA-TOBACCO USE LICENSED CLINICAL SOCIAL WORKER NO [facility] Feb 19, 2022 11:30 AM VA-TOBACCO USE MED NO [facility] Feb 19, 2022 11:30 AM VA-TOBACCO USER EVERY DAY [facility] October 11, 2020 10:30 AM VA-TOBACCO FORMER USER [facility] October 11, 2020 10:30 AM VA-TOBACCO QUIT < [address] [facility] Radiology Reports: +/- 30 days of the [...] the Encounter. The data comes from all [facility]. Date/Time Radiology Report Provider Source Sep 18, 2023 03:48 PM FOOT,RIGHT,3 VIEWS OR MORE: ELI RUELAS [facility] [id number] -1955 M Exm Date: SEP 18, 2023@15:48 Req Phys: WES GARCIA Pat Loc: [facility] PCP (Req'g Loc) Img Loc: [facility] Service: Unknown (Case [id number] COMPLETE) FOOT,RIGHT,3 VIEWS OR MORE (RAD Detailed) CPT:00304 Proc Modifiers : RIGHT Reason for Study: Right foot pain Clinical History: Right foot pain, localized at instep Report Status: Verified Date Reported: SEP 21, 2023 Date Verified: SEP 21, 2023 File System Installer E-Sig:/ES/Amy Trevino MD Report: FINDINGS: There is mild hallux valgus deformity and spur formation is seen at plantar aspect. No other significant bone or joint abnormality is demonstrated. No significant acute findings or evidence of recent bone injury. Impression: Mild hallux valgus deformity and calcaneal spur is noted without significant acute findings. Primary Interpreting Staff: Amy Trevino MD, Radiologist (File System Installer) /QMB AMY TREVINO [facility] Aug 28, 2023 03:[address] THORAX, DIAGNOS TIC, W/CONTRAST: ELI RUELAS [id number] -1955 [facility] Date: AUG 28, 2023@15:09 Req Phys: ALEM LUTHER Loc: [facility] FL[facility] AM (Req'g Loc) Img Loc: [facility] Service: Unknown (Case [id number] COMPLETE) CT THORAX, DIAGNOSTIC, W/CONTRAS(CT Detailed) CPT:03040 Contrast Media : Non-ionic Iodinated Reason for Study: Jennifer Ca Surveillance RML resection Clinical History: Responsible Attending: Shante Attending Contact Number: [phone] Resident Contact Number: Allergies listed in CPRS chart: CHANTIX Creatinine: CREATININE 1.24 mg/dL 02/19/2022 11:04 /eGFR: STL EGFR (within one year). CREATININE 1.24 mg/dL (02/19/22 11:04) Wt: 257.6 lb [116.85 kg] (08/17/2022 11:29) History of: Renal failure, chronic or acute renal disease: YES Report Status: Verified Date Reported: AUG 29, 2023 Date Verified: AUG 29, 2023 File System Installer E-Sig:/ES/Oswald Coronado MD Report: CASE #: [id number] DATE:08/28/2023 4:30 PM CLINICAL HISTORY:Jennifer Ca Surveillance [...] Primary Interpreting Staff: Oswald Coronado MD, Radiologist (File System Installer) /OSWALD PEREIRA [facility] Encounter Notes: All associated encounter notes This section contains the clinical notes associated to the Encounter. Date/Time Encounter Note(s) Provider Source Sep 18, 2023 02:50 PM OPTOMETRY NOTE: LOCAL TITLE: OPTOMETRY NOTE STANDARD TITLE: OPTOMETRY NOTE DATE OF NOTE: SEP 18, 2023@14:50 ENTRY DATE: SEP 18, 2023@14:50:21 AUTHOR: ELMO FALCON EXP COSIGNER: CHADWICK MONAE URGENCY: STATUS: COMPLETED OPTOMETRY NOTE Has ADDENDA Last seen: teleret 09/18/23, possible brao,mac,degen Reason for visit: referral to telret CC: 1.Vision - usually wears readers - here for annual exam 2.Pre-Dm - controlled 3.Reffereal from tele ret due to HHP OD - patient asymptomatic - denies changes in vision, loss of vision, numbness in extremities - MHX: HTN/kidney disease stage three - Active smoker 8 cigarettes a day - HX of stroke 2014 CVA no changes in vision noted per patient Ocular meds: None Ocular ROS: (-) surgery (-) lasers (-) injuries (-) loss of vision (-) double vision Family OcHX: (-) blindness (-) glaucoma (-) AMD (-) RD Cardiovascular ROS: no change from problem & medication lists CPRS Problem list, medications and allergies reviewed: [facility] Serology for Diabetes GLUCOSE 113 H mg/dL 02/15/2023 11:44 HGA1C 6.0 % 02/15/2023 11:44 Cardiovascular BP: 134/84 (09/18/2023 13:57) Pulse: 63 (09/18/2023 13:57) Neuro: Orientation: Normal Psych: Mood/Affect: Normal VISUAL ACUITY With correction Distance Visual Acuity OD. 20/20- OS. 20/150 PH 20/25 Pupils PERRL OU (-)APD Confrontation: FTFC OU Extra-Ocular Muscles Full OU Externals/adnexa: Dermatochalasis OU Previous Refraction: Auto: OD -0.25 -0.25 x100 OS -1.75 -0.75 x075 Refraction: 09/18/23 OD -0.25 -0.25 x100 20/20- OS -1.75 -0.75 x075 20/25 Add: + 2.50 SLIT LAMP EXAMINATION Lids/Lashes/Lacrimal No blepharitis OU, MGD Conjunctiva/Sclera Trace injection/concretions LL OU Cornea Clear OU Ant Chamber Deep and quiet OU Iris Normal, (-)NVI OU Lens OD: +1-2 NS cataract OS: +1-2 NS cataract Intraocular Pressures (Goldmann) 1 gtt fluress OU Date OD OS Time Meds 09/18/23 15 15 1450 Dilation not done today due to patient reason: Arrived alone patient scheduled for DFE completion in 10/24 or earlier if changes in vision occur Optic Nerve OD: 0.5 CDR Flat, pink, distinct (-)NVD OS: 0.5 CDR Flat, pink, distinct (-)NVD Vessels: 2/3 OU Macula: OD: Flat, clear (-)CSME OS: Flat, clear (-)CSME Posterior Pole: OD: no retinopathy,(+) ERM OS: no retinopathy,(+) ERM Additional Testing: OCT: Ocular Coherence Tomography Report Date:09/18/23 Reason for Order: 1.H/o HHP OD Images available for viewing in [facility] OCT Interpretation: Reliability: Good OD:Normal foveal contour, (+)ERM,(-)SRF/IRF/CME OS:Normal foveal contour, (+)ERM,(-)SRF/IRF/CME Assessment/Plan 09/18/23 1.History HHP referred from tele retina - MHX: HTN/kidney disease stage three - Active smoker 8 cigarettes a day - Complaint with medications - fundus photos revealed - HHP OD superior arcades - patient denies: loss of vision, TIA, or blurred vision, no weakness in extremities of double vision - BCVA OU 20/20 - OCT done today: See above - BP: 134/84 (09/18/2023 13:57) Pulse: 63 (09/18/2023 13:57) - (-)Heme/CW - Ordered CUS - Cont. TX/Mgmt. with PCP - RTC x 1m DFE completion or earlier if visual changes occur 2. Presbyopia and refractive error, OU - SRX Improvement - Ordered glasses 3. Cataracts, OU - (-)SX needed at this time - not visually significant - Defer CE until BCVA limited to 20/40 or worse or s/sx indicate - continue to monitor Educate and monitor, discussed all exam findings. Patient and/or surrogate verbalized understanding of the instructions/information given. RTC x 1m DFE completion or earlier if visual changes occur /es/ ELMO FALCON RESIDENT PHYSICIAN, OPTOMETRY Signed: 09/19/2023 14:21 /loreta/ CHADWICK MONAE, SEVERINO Staff Physician, Optometry Cosigned: 09/20/2023 08:22 09/20/2023 ADDENDUM STATUS: COMPLETED I have reviewed the history, findings and agree with the assessment and plan as charted in CPRS on this new patient. 1.Retinal Emboli OD - superior - noted on teleretina photos today - (+) HTN, CKD stage three, HLD, Pre-DM - Active smoker 8 cigarettes a day - last BP 134/84 totday - follows with PCP - pt denies signs/symptoms of TIA/CVA - OCT obtained today - Pt declined dilation so unable to fully assess - Placed order for carotid ultrasoun - PCP already placed referral to cardiology - advised pt on importance of maintaing follow-up - pt to seek emergent care if notes signs/symptoms TIA/CVA - follow in 1 months with DFE 2. Presbyopia and refractive error, OU - order new glasses 3. Cataracts, OU - not visually significant - monitor at this time Educate and monitor, discussed all exam findings. RTC 1 months with DFE, sooner with changes /loreta/ CHADWICK MONAE, SEVERINO Staff Physician, Optometry Signed: 09/20/2023 08:[address] [facility] Sep 18, 2023 02:21 PM OPTOMETRY CONSULT: LOCAL TITLE: OPTOMETRY CONSULT [facility] STANDARD TITLE: OPTOMETRY CONSULT DATE OF NOTE: SEP 18, 2023@14:21 ENTRY DATE: SEP 19, 2023@14:22:13 AUTHOR: ELMO FALCON EXP COSIGNER: ARTUR WOODRUFF URGENCY: STATUS: COMPLETED OPTOMETRY CONSULT ST[facility] Has ADDENDA OCT: Ocular Coherence Tomography Report Date:09/18/23 Reason for Order: 1.H/o [facility] OD Images available for viewing in [facility] OCT Interpretation: Reliability: Good OD:Normal foveal contour, (+)ERM,(-)SRF/IRF/CME OS:Normal foveal contour, (+)ERM,(-)SRF/IRF/CME /argelia FALCON RESIDENT PHYSICIAN, OPTOMETRY Signed: 09/19/2023 14:22 /loreta/ ARTUR WOODRUFF Supervisor Customer Records Division Cosigned: 09/20/2023 14:30 09/20/2023 ADDENDUM STATUS: COMPLETED Reviewed and agree with resident's interpretation of images. /loreta/ ARTUR WOODRUFF Supervisor Customer Records Division Signed: 09/20/2023 14:30 ELMO FALCON [facility]
--- OUTSIDE RECORDS SUMMARY | 2024-07-30 10:59 | XMS_ITS | Encounter Summary ---
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 [place] Organization [facility] [place] Address [address] [place] [address] Care Team Providers Care Package Pick Up Name Role Phone JESSICA KAY Primary Care Provider UnavailYANIV Gallegos Unavailable Unavailable JENY TAVAREZ Unavailable Unavailable ELSY, ISAAC Unavailable Unavailable RYAN TORRES Unavailable Unavailable PAOLA SMITH Unavailable Unavailable ALEM LAURENT Unavailable Unavailable ELVIA ANTONIO Unavailable Unavailable WES CASTELLON Primary Care Provider Unavaila ble Insurance Providers: [...] ACTIV E [place]IGH Jun 03, 2013 [id number] [phone] JOSEPHINE DiamondROSITA SPOUSE MEDICARE (WNR) MEDICARE (M) PART A Jul 04, 2016 PART A [id number] HERMES GRIMMY PATIENT MEDICARE (WNR) MEDICARE (M) PART B Jul 04, 2016 PART B [id number] [phone] RICHARDSO N,ELI PATIENT MEDICARE (WNR) MEDICARE (M) PART A Jul 04, 2016 PART A [id number] [facility] EMMASO N,ELI PATIENT MEDICARE (WNR) MEDICARE (M) PART B Jul 04, 2016 PART B [id number] EMMASO N,ELI PATIENT MEDICARE (WNR) MEDICARE (M) PART A Jul 04, 2016 PART A [id number] EMMASO N,ELI PATIENT MEDICARE (WNR) MEDICARE (M) PART B Jul 04, 2016 PART B [id number] EMMASO N,ELI PATIENT MEDICARE (WNR) MEDICARE (M) PART A Jul 04, 2016 PART A [id number] [phone] EMMASO N,ELI PATIENT MEDICARE (WNR) MEDICARE (M) PART B Jul 04, 2016 PART B [id number] EMMASO N,ELI PATIENT PRIME THERAPEUTI CS RX PRESCRIPT ION RX PLAN Jun 03, 2013 [id number] [phone] EMMASO N,ELI PATIENT Selected Encounter This section includes the information on record at [place] for the Encounter. Date/Time Encounter Type Encounter Description Reason Provider Source Apr 08, 2024 02:30 PM OFFICE O/P EST MOD 30 MIN PRIMARY CARE/MEDICINE ICD-10-CM J44.9 Chronic obstructive pulmonary disease, unspecified MCQUAIDE,THERE SA IHE Encounter Template Text not used by [place] Assessments - Encounter Diagnoses This section includes the primary and secondary diagnoses documented for the Encounter. Date/Time Primary/Secondary Diagnosis Diagnosis Name Provider Source Apr 08, 2024 04:18 PM PRIMARY Chronic obstructive pulmonary disease, unspecified MILES HARTLEY [facility] Apr 08, 2024 04:18 PM SECONDARY Encounter for immunization OVERTROD HOLDER [facility] Apr 08, 2024 04:18 PM SECONDARY Hyp hrt & chr kdny dis w/o hrt fail, w stg 1-4/unsp chr kdny MILES HARTLEY [facility] Apr 08, 2024 04:18 PM SECONDARY Hyperlipidemia, unspecified MILES HARTLEY [facility] Apr 08, 2024 04:18 PM SECONDARY Nicotine dependence, unspecified, uncomplicated NAEEMMILES Zoraida [facility] Apr 08, 2024 04:18 PM SECONDARY [facility] Apr 08, 2024 04:18 PM SECONDARY Pain in right [facility] Apr 08, 2024 04:18 PM SECONDARY Plantar fascial fibromatosis [facility] Apr 08, 2024 04:18 PM SECONDARY Polyp of colon [facility] Apr 08, 2024 04:18 PM SECONDARY Tobacco use [facility] Plan of Treatment: Future Appointments (+ 6 months) and Future Tests (+/- 45 days) The Plan of Treatment section includes future care activities for the patient from all [place] [facility]. This section includes future appointments and future orders which are active, pending or scheduled. Future Appointments This section includes appointments that were scheduled to occur 6 months from the date of the Encounter, up to a maximum of 20 appointments. The data comes from all [facility] facilities. Appointment Date/Time Appointment Type Appointme nt Facility Name Apr 16, 2024 07:30 AM AMBULATORY - MEDICINE [facility] May 20, 2024 01:00 PM AMBULATORY - MEDICINE [facility] Jul 31, 2024 10:15 AM AMBULATORY - MEDICINE [facility] Aug 28, 2024 02:00 PM AMBULATORY - MEDICINE [facility] Aug 28, 2024 02:30 PM AMBULATORY - MEDICINE [facility] Lab Results: +/- 30 days of [...] Range Comment Apr 08, 2024 03:39 PM [facility] MICRAL/CREAT PROFILE (STL) Specimen Type: URINE No comment entered. Ordering Provider: CIERRA CASTELLON RADHA Report Released Date/Time: Apr 08, 2024 08:39 AM Reporting Lab: [facility] [address] [place] [address] Performing Lab: [facility] [address] [place] [address] URINE ALBUMIN (PB-STL) 8 mg/L No range refer to micral/crea t ratio uACR (STL) 6 mg/g 0-29 CREATININE URINE/OTHERS 139.8 mg/dL 63.0-166.0 Apr 08, 2024 03:39 PM [facility] URINALYSIS (STL-PB) Specimen Type: URINE No comment entered. Ordering Provider: CIERRA CASTELLON RADHA Report Released Date/Time: Apr 08, 2024 08:39 AM Reporting Lab: [facility] [address] [place] [address] Performing Lab: [facility] [place] [address] URINE COLOR Yellow Yellow U.BILIRUBIN Negative mg/dL Negative U.PH 6.5 5.0-8.0 APPEARANCE Clear Clear U.NITRITE Negative mg/dL Negative URN.GLUCOSE Normal mg/dL Negative URN.PROTEIN Negative mg/dL URN.UROBILINOGEN 2 mg/dL H Normal URN.BLOOD Negative mg/dL Negative-Tr jason URN.KETONES Negative mg/dL Negative-Tr jason URN.LEUK.EST. Negative mg/dL Negative-Tr jason URN.SPECIFIC GRAVITY 1.023 Apr 08, 2024 03:32 PM [facility] CBC Specimen Type: BLOOD No comment entered. Ordering Provider: CIERRA CASTELLON RADHA Report Released Date/Time: Apr 08, 2024 08:39 AM Reporting Lab: [facility] [place] [address] Performing Lab: [facility] [address] [place] [address] WBC 9.3 10*3/uL 3.6-11.2 RBC 4.43 10*6/uL [...] 10*3/uL 0.00-0.20 Apr 08, 2024 03:32 PM [facility] HGA1C Specimen Type: BLOOD No comment entered. Ordering Provider: ANDRES CASTELLON Report Released Date/Time: Apr 08, 2024 08:39 AM Reporting Lab: [facility] [address] [place] [address] Performing Lab: [facility] [address] [place] [address] HGA1C 6.3 H 4.0-6.0 Apr 08, 2024 03:32 PM [facility] VITAMIN D, 25-HYDROXY Specimen Type: SERUM No comment entered. Ordering Provider: TOMMY CASTELLONA Report Released Date/Time: Apr 08, 2024 08:39 AM Reporting Lab: [facility] [address] [place] [address] Performing Lab: [facility] [address] [place] [address] VITAMIN D, 25-HYDROXY 33.1 ng/mL 30-96 Apr 08, 2024 03:32 PM [facility] TSH (MA-PB) Specimen Type: SERUM No comment entered. Ordering Provider: CIERRA CASTELLON RADHA Report Released Date/Time: Apr 08, 2024 08:39 AM Reporting Lab: [facility] [place] [address] Performing Lab: [facility] [address] [place] [address] TSH 1.120 u[IU]/mL 0.470-5.000 Apr 08, 2024 03:32 PM [facility] LIPID PANEL (STL) Specimen Type: PLASMA Comment: No hemolysis noted. Ordering Provider: CIERRA CASTELLON RADHA Report Released Date/Time: Apr 08, 2024 08:39 AM Reporting Lab: [facility] [address] [place] [address] Performing Lab: [facility] [address] [place] [address] CHOLESTEROL 147 mg/dL 0-200 TRIGLYCERIDE 110 mg/dL 0-150 CALCULATED LDL 90 mg/dL See Interp HDL(New) 35 mg/dL L > 40 Apr 08, 2024 03:32 PM [facility] COMPREHENSIVE METABOLIC PANEL Specimen Type: PLASMA Comment: No hemolysis noted. Ordering Provider: CIERRA CASTELLON RADHA Report Released Date/Time: Apr 08, 2024 08:39 AM Reporting Lab: [facility] [address] [place] [address] Performing Lab: [facility] [address] [place] [address] CREATININE 1.07 mg/dL 0.70-1.30 UREA NITROGEN 11.6 [...] U/L 8-40 EGFR (CKD-EPI 2020) 76.06 >60 Vital Signs: All taken on the encounter date This section contains inpatient and outpatient Vital Signs collected on the date of the Encounter. Date/Time Temperature Pulse Blood Pressure Respiratory Rate SP02 Pain Height Weight Body Mass Index Source Apr 08, 2024 02:39 PM 98.1 62 137/83 20 94 6 270 34 [facility] Immunizations: All administered on the encounter date This section contains immunizations associated to the Encounter. Immunization Series Date Issued Reaction Comments INFLUENZA, HIGH-DOSE, TRIVALENT, PF Apr 08 Social History: Smoking Status (Most current) and Tobacco Use (All prior to encounter date) This section includes the most current, and the historical, smoking and tobacco- related health factors from the [place] facility where the Encounter took place. Current Smoking Status This section includes the most current smoking, or tobacco-related health factor, from the [place] facility where the Encounter took place. Date/Time Current Smoking Status Comment Chanell ity Apr 08, 2024 02:30 PM VA-TOBACCO NEVER U SED OTHER TYPE [facility] Tobacco Use History This section includes a history of the smoking, or tobacco-related health factors, that were collected on or before the date of the Encounter. The data comes from the [place] facility where the Encounter took place. Date/Time Smoking Status/Tobacco Use Comment F acility Apr 08, 2024 02:30 PM VA-TOBACCO SCREEN FOLLOW-UP [facility] Apr 08, 2024 02:30 PM VA-TOBACCO USE ADVICE [facility] Apr 08, 2024 02:30 PM VA-TOBACCO USE SAMPLER TESTER NO [facility] Apr 08, 2024 02:30 PM VA-TOBACCO USE CARYN RY DAY CIGARETTES [facility] Apr 08, 2024 02:30 PM VA-TOBACCO USE MED NO [facility] Feb 15, 2023 11:00 AM VA-TOBACCO USE 30 YEARS OR MORE [facility] Feb 15, 2023 11:00 AM VA-TOBACCO USE ADVICE [facility] Feb 15, 2023 11:00 AM VA-TOBACCO USE SAMPLER TESTER NO [facility] Feb 15, 2023 11:00 AM VA-TOBACCO USE MED NO [facility] Feb 15, 2023 11:00 AM VA-TOBACCO USE WI 30 MIN OF WAKEUP [facility] Feb 15, 2023 11:00 AM VA-TOBACCO USER EVERY DAY [facility] Feb 19, 2022 11:30 AM VA-TOBACCO DOESNT USE WI 30 MIN WAKEUP [facility] Feb 19, 2022 11:30 AM VA-TOBACCO USE 30 YEARS OR MORE [facility] Feb 19, 2022 11:30 AM VA-TOBACCO USE ADVICE [facility] Feb 19, 2022 11:30 AM VA-TOBACCO USE SAMPLER TESTER NO [facility] Feb 19, 2022 11:30 AM VA-TOBACCO USE MED NO [facility] Feb 19, 2022 11:30 AM VA-TOBACCO USER EVERY DAY [facility] October 11, 2020 10:30 AM VA-TOBACCO FORMER USER [facility] October 11, 2020 10:30 AM VA-TOBACCO QUIT < 1 YEAR [facility] Radiology Reports: +/- 30 days of the [...] the Encounter. The data comes from all [facility] facilities. Date/Time Radiology Report Provider Source Apr 08, 2024 03:44 PM KNEE,RIGHT 3 VIEWS : RUELASELI JOSY [id number] -1955 M Exm Date: APR 08, 2024@15:44 Req Phys: MCQUAIDE,WES Pat Loc: [facility]-PA[facility] E3 PCP (Req'g Loc) Img Loc: [facility] RADIOLOGY Service: Unknown [address] [address] (Case [id number] COMPLETE) KNEE,RIGHT 3 VIEWS (RAD Detailed) CPT:59687 Proc Modifiers : RIGHT Reason for Study: Worsening knee pain Clinical History: Worsening knee pain Report Status: Verified Date Reported: APR 09, 2024 Date Verified: APR 09, 2024 Telemetry Technician E-Sig:/LORETA/MARIAN AMBROSE MD Report: Case #: [id number]. Right [...] MARIAN AMBROSE MD, Staff Physician - Radiologist (Telemetry Technician) /MARIAN FORBES [facility] Apr 08, 2024 03:44 PM KNEE,LEFT, 3 VIEWS : ELI RUELAS [facility] [id number] -1955 M Exm Date: APR 08, 2024@15:44 Req Phys: MCQUYANDYE,WES Pat Loc: [facility]-PACT E3 PCP (Req'g Loc) Img Loc: [facility] RAD[facility] Service: Unknown [address] [address] (Case [id number] COMPLETE) KNEE,LEFT, 3 VIEWS (RAD Detailed) CPT:96725 Proc Modifiers : LEFT Reason for Study: Worsening knee pain Clinical History: Worsening knee pain Report Status: Verified Date Reported: APR 09, 2024 Date Verified: APR 09, 2024 Telemetry Technician E-Sig:/LORETA/MARIAN AMBROSE MD Report: Case #: [id number]. Left [...] MARIAN AMBROSE MD, Staff Physician - Radiologist (Telemetry Technician) /MARIAN FORBES [facility] Encounter Notes: All associated encounter notes This section contains the clinical notes associated to the Encounter. Date/Time Encounter Note(s) Provider Source May 19, 2024 10:33 AM ADDENDUM: LOCAL TITLE: Addendum STANDARD TITLE: ADDENDUM DATE OF NOTE: MAY 19, 2024@10:33:45 ENTRY DATE: MAY 19, 2024@10:33:46 AUTHOR: FAMILIA GALLAGHER EXP COSIGNER: URGENCY: STATUS: COMPLETED called to get schedule with provider soon as possible. Veteeran requesting a call back /argelia GALLAGHER biomedical electronics technician Signed: 05/19/2024 10:35 Receipt Acknowledged By: 05/19/2024 11:41 /argelia CARLIN advanced biomedical electronics technician --- Original Document --- 05/14/24 ADMINISTRATIVE STL: Author called pt, left a VM on cell to return call. Will discuss Atrial fibrillation and need for DOAC. /es/ WES SAXENA [facility] ADULT NURSE PRACTITIONER Signed: 05/14/2024 13:11 05/15/2024 ADDENDUM STATUS: COMPLETED Author called pt's cell phone. Left a VM to return call: to discuss A-fib and initation of anticogulation. /loreta/ WES SAXENA [facility] ADULT NURSE PRACTITIONER Signed: 05/15/2024 09:18 05/19/2024 ADDENDUM STATUS: COMPLETED Author called and left a VM on pt's cell phone to return call. Attempted to call secondary contact and call went to . Called work phone number and pt's spouse answered the phone. Author spoke with pt -- informed him that he needs to be seen this week, needs a 12-lead EKG and started on Apixiban as he is at risk for a stroke due to A-fib. I am already on a blood thinner. Noted he was taking Clopidogrel, discussed with pt that this type of blood thinner is not effective for what he needs. Stressed to pt to call [facility] and request an in-person appointment this week for a 12-lead EKG and labs. Voiced understanding and call mutually concluded. smith Brand for informational purposes /loreta/ WES SAXENA [facility] ADULT NURSE PRACTITIONER Signed: 05/19/2024 10:28 Receipt Acknowledged By: 05/19/2024 10:40 /es/ Ofe Brand MOVIE MACHINE OPERATOR REGISTERED NURSE 05/19/2024 11:41 /es/ KAYLA CARLIN advanced biomedical electronics technician FAMILIA GALLAGHER [facility] May 19, 2024 10:24 AM ADDENDUM: LOCAL TITLE: Addendum STANDARD TITLE: ADDENDUM DATE OF NOTE: MAY 19, 2024@10:24:51 ENTRY DATE: MAY 19, 2024@10:24:52 AUTHOR: WES CASTELLON EXP COSIGNER: URGENCY: STATUS: COMPLETED Author called and left a VM on pt's cell phone to return call. Attempted to call secondary contact and call went to . Called work phone number and pt's spouse answered the phone. Author spoke with pt -- informed him that he needs to be seen this week, needs a 12-lead EKG and started on Apixiban as he is at risk for a stroke due to A-fib. I am already on a blood thinner. Noted he was taking Clopidogrel, discussed with pt that this type of blood thinner is not effective for what he needs. Stressed to pt to call [facility] and request an in-person appointment this week for a 12-lead EKG and labs. Voiced understanding and call mutually concluded. smith Brand for informational purposes /loreta/ WES SAXENA [facility] ADULT NURSE PRACTITIONER Signed: 05/19/2024 10:28 Receipt Acknowledged By: 05/19/2024 10:40 /es/ Ofe Brand MOVIE MACHINE OPERATOR REGISTERED NURSE 05/19/2024 11:41 /es/ KAYLA CARLIN advanced biomedical electronics technician --- Original Document --- 05/14/24 ADMINISTRATIVE STL: Author called pt, left a VM on cell to return call. Will discuss Atrial fibrillation and need for DOAC. /loreta/ WES SAXENA [facility] ADULT NURSE PRACTITIONER Signed: 05/14/2024 13:11 05/15/2024 ADDENDUM STATUS: COMPLETED Author called pt's cell phone. Left a VM to return call: to discuss A-fib and initation of anticogulation. /loreta/ WES SAXENA [facility] ADULT NURSE PRACTITIONER Signed: 05/15/2024 09:18 05/19/2024 ADDENDUM STATUS: COMPLETED called to get schedule with provider soon as possible. Aida requesting a call back /loreta/ FAMILIA GALLAGHER biomedical electronics technician Signed: 05/19/2024 10:35 Receipt Acknowledged By: * AWAITING SIGNATURE * KAYLA CARLIN [facility] May 14, 2024 01:09 PM ADMINISTRATIVE NOT E: LOCAL TITLE: ADMINISTRATIVE STL STANDARD TITLE: ADMINISTRATIVE NOTE DATE OF NOTE: MAY 14, 2024@13:09 ENTRY DATE: MAY 14, 2024@13:09:35 AUTHOR: WES CASTELLON EXP COSIGNER: URGENCY: STATUS: COMPLETED ADMINISTRATIVE STL Has ADDENDA Author called pt, left a VM on cell to return call. Will discuss Atrial fibrillation and need for DOAC. /loreta/ WES SAXENA [facility] ADULT NURSE PRACTITIONER Signed: 05/14/2024 13:11 05/15/2024 ADDENDUM STATUS: COMPLETED Author called pt's cell phone. Left a VM to return call: to discuss A-fib and initation of anticogulation. /loreta/ WES SAXENA [facility] ADULT NURSE PRACTITIONER Signed: 05/15/2024 09:18 05/19/2024 ADDENDUM STATUS: COMPLETED Author called and left a VM on pt's cell phone to return call. Attempted to call secondary contact and call went to . Called work phone number and pt's spouse answered the phone. Author spoke with pt -- informed him that he needs to be seen this week, needs a 12-lead EKG and started on Apixiban as he is at risk for a stroke due to A-fib. I am already on a blood thinner. Noted he was taking Clopidogrel, discussed with pt that this type of blood thinner is not effective for what he needs. Stressed to pt to call [facility] and request an in-person appointment this week for a 12-lead EKG and labs. Voiced understanding and call mutually concluded. smith Brand for informational purposes /loreta/ WES SAXENA [facility] ADULT NURSE PRACTITIONER Signed: 05/19/2024 10:28 Receipt Acknowledged By: 05/19/2024 10:40 /es/ Ofe Brand MOVIE MACHINE OPERATOR REGISTERED NURSE * AWAITING SIGNATURE * KAYLA CARLIN 05/19/2024 ADDENDUM STATUS: COMPLETED [place] called to get schedule with provider soon as possible. Aida requesting a call back /loreta/ FAMILIA GALLAGHER biomedical electronics technician Signed: 05/19/2024 10:35 Receipt Acknowledged By: * AWAITING SIGNATURE * KAYLA CARLIN [facility] Apr 09, 2024 09:53 AM PHYSICIAN LETTERS: LOCAL TITLE: TEST RESULT GENERAL LETTER STL STANDARD TITLE: PHYSICIAN LETTERS DATE OF NOTE: APR 09, 2024@09:53 ENTRY DATE: APR 09, 2024@09:53:40 AUTHOR: WES CASTELLON EXP COSIGNER: URGENCY: STATUS: COMPLETED [facility] [address] [place] [address] APR 09, 2024 ELI RUELAS [address] [place] [address] [address] [place] [id number] Dear Eli Ruelas, I would like to update you on your recent test results. LIPID PROFILE - High cholesterol and triglycerides (lipids) are risk factors for heart disease. Your cholesterol should fall between 140 and 200, and your triglycerides levels should be less than or equal to 150. HDL is the good cholesterol and should ideally be greater than 40. LDL is the bad cholesterol and optimal levels should be less than 100 (near optimal is between 100 and 129). TRIGLYCERIDE 110 mg/dL 04/08/2024 15:32 CHOLESTEROL 147 mg/dL 04/08/2024 15:32 HDL(New) 35 L mg/dL 04/08/2024 15:32 CALCULATED LDL 90 mg/dL 04/08/2024 15:32 These readings are within normal limits. GLUCOSE - Your blood sugar or glucose level result GLUCOSE GLUCOSE 102 H mg/dL 04/08/2024 15:32 These readings are within normal limits. HEMOGLOBIN A1C - Gives us information about your diabetes (sugar or glucose) control over the past 3 months. Your target is to keep your A1C below 6 %. HGA1C 6.3 H % 04/08/2024 15:32 These results are abnormal. You have Prediabetes -- recommend reducing carbohydrates in diet along with sweets. CBC - A complete blood count (CBC) gives important information about the kinds and numbers of cells in the blood, especially red blood cells, white blood cells, and platelets. HGB 14.6 g/dL 04/08/2024 15:32 HEMATOCRIT 44.4 % (04/08/24 15:32) PLT 217 10*3/uL 04/08/2024 15:32 WHITE BLOOD COUNT 9.3 10*3/uL (04/08/24 15:32) These readings are within normal limits. CHEM 7 - This is important information about the current status of your kidneys, liver, and electrolyte and acid/base balance as well as of your blood sugar and blood proteins. SODIUM 141 mEq/L 04/08/2024 15:32 POTASSIUM 4.2 mEq/L 04/08/2024 15:32 CHLORIDE 105 mEq/L 04/08/2024 15:32 UREA NITROGEN 11.6 mg/dL 04/08/2024 15:32 CREATININE 1.07 mg/dL 04/08/2024 15:32 CALCIUM 10.3 mg/dL 04/08/2024 15:32 CARBON DIOXIDE 27 mEq/L 04/08/2024 15:32 GLUCOSE 102 H mg/dL 04/08/2024 15:32 EGFR (CKD-EPI 2020) 76.06 04/08/2024 15:32 These readings are within normal limits. LIVER FUNCTION PANEL - These are tests for liver function: PROTEIN 7.4 g/dL 04/08/2024 15:32 ALBUMIN 3.9 g/dL 04/08/2024 15:32 TOTAL BILIRUBIN 0.4 mg/dL 04/08/2024 15:32 ALKALINE PHOSPHATASE 91 U/L 04/08/2024 15:32 AST/SGOT 12 U/L 04/08/2024 15:32 ALT/SGPT 13 U/L 04/08/2024 15:32 These readings are within normal limits. TSH - Thyroid-stimulating hormone (also known as TSH or thyrotropin) is a peptide hormone synthesized and secreted by thyrotrope cells in the anterior pituitary gland, which regulates the endocrine function of the thyroid gland. TSH TSH 1.120 uIU/mL 04/08/2024 15:32 These readings are within normal limits. VITAMIN D - Helps promote the proper utilization of calcium and phosphorus, thereby producing proper bone maintenance. VITAMIN D, 25-HYDROXY 33.1 ng/mL 04/08/2024 15:32 These readings are within normal limits. URINALYSIS - A urinalysis (or UA ) is an array of tests performed on urine and one of the most common methods of medical diagnosis. URINALYSIS URINE COLOR Yellow 04/08/2024 15:39 APPEARANCE Clear 04/08/2024 15:39 U.PH 6.5 04/08/2024 15:39 U.BILIRUBIN Negative mg/dL 04/08/2024 15:39 U.NITRITE Negative mg/dL 04/08/2024 15:39 These readings are within normal limits. PLAN Please continue your treatment as we discussed during your visit. If you have any questions please call your outsole caser. I look forward to seeing you at your next clinic appointment. Thank you for choosing the [facility] for your healthcare. FUTURE APPOINTMENTS: 04/16/2024 07:30 [facility]-PACEMAKER EP LAB 08/28/2024 14:00 [facility]-PFT-[facility] 08/28/2024 14:30 [facility]-PULMONARY INTERVENTION 2025 13:00 [facility]-CARDIOLOGY F4 Sincerely, WES SAXENA [facility] ADULT NURSE PRACTITIONER ELI RUELAS [facility] Apr 08, 2024 02:53 PM PRIMARY CARE NOTE: LOCAL TITLE: PRIMARY CARE PROVIDER ESTABLISHED VISIT [facility] STANDARD TITLE: PRIMARY CARE NOTE DATE OF NOTE: APR 08, 2024@14:53 ENTRY DATE: APR 08, 2024@14:53:38 AUTHOR: MILES HARTLEY COSIGNER: EWS CASTELLON URGENCY: STATUS: COMPLETED PRIMARY CARE PROVIDER ESTABLISHED VISIT ST Has ADDENDA ESTABLISHED PATIENT VRAA-TP-AQAH: REASON FOR VISIT/CHIEF COMPLAINT: 7 month follow-up for chronic conditions, Feet/Knee pain HPI: 1) Bilateral knee pain. Surgery x2 on both. Pain started a year ago gotten real bad the last couple of months. Rates pain at least 6/10. Doesnt hurt when sitting. Increased pain with walking and attempting to stand. Has not taken anything for the pain. Throbbing pain. 2) Left foot pain. Could hardly step on it last night due to pain. Feels like knuckle forward goes numb. Numbness and tingling in both feet. Notices more once he takes his shoes and socks off to lay down at night. They just tingle. 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 Followed per [facility] by Dr. Rivera. 4) COPD, Using Albuterol 90mcg 2 puffs, 4 times a day and Umeclidinium 62.5/Vilanterol 25mcg 1 puff daily. 5)Nicotine abuse, using E-vape very rarely. 6) Hx of Stroke in 2013, taking Clopidogrel 75mg daily. 8) Hyperlipidemia, taking Rosuvastatin 20mg daily. 9) HTN with CKD IIIa, blood pressure today, 137/83, taking Lisinopril 20mg daily. 10) History of colon polyps, completed repeat CRC in January 2024. Polyps present, repeat in 7 years recommended. WHAT IS YOUR GOAL FOR TODAY? My knees are killing me. SOURCE(S) OF HISTORY: Patient PAST MEDICAL HISTORY: [...] 3 16) Chronic kidney disease stage 3A FAMILY HISTORY: SOCIAL HISTORY: NICOTINE: Nicotine User: [...] medication list with the patient and/or his/her care-caddie. Handwritten corrections, additions and/or deletions were made [...] MOUTH THREE ACTIVE TIMES A DAY NEEDED Pending Outpatient Medications Status 1) ALBUTEROL 90MCG (CFC-F) 200D ORAL INHL INHALE 2 PUFFS PENDING ORAL INHALATION FOUR TIMES A DAY SHAKE WELL. RINSE MOUTHPIECE FREQUENTLY TO PREVENT CLOGGING. 2) METHOCARBAMOL 500MG TAB TAKE 1 TABLET BY MOUTH THREE PENDING TIMES A DAY NEEDED Active Non-VA Medications Status 1) Non-VA CLOPIDOGREL BISULFATE 75MG TAB 75MG BY MOUTH ACTIVE ONCE A DAY 2) Non-VA LISINOPRIL 40MG TAB 20MG BY MOUTH ONCE A DAY ACTIVE 3) Non-VA ROSUVASTATIN CA 40MG TAB 20MG BY MOUTH EVERY ACTIVE EVENING 4) Non-VA TVKRMWDDXYPV59.5/VILANTEROL 25MCG 30D INH 1 ACTIVE PUFF ORAL INHALATION ONCE A DAY 9 Total Medications REVIEW OF SYSTEMS: General: Weight Gain Gain 7# Ears, Nose, Mouth, Throat: Normal Eye: Normal Cardiovascular: HTN BP today 137/83 Respiratory: Cough, SOB chronic. ABD/GI: Normal Musculoskeletal/Extremities : Abnormal Pain, Stiffness/reduced ROM States bottom of left foot felt swollen last night, but was unable to check. /WARP STARTER: Nocturia Urinates 1x/night Psych: Sleeps ~8 hours/night Skin: Abnormal Lesions Circular lesion to back of right thigh. PHYSICAL EXAMINATION: Male General appearance: VITALS (most recent, as listed in the electronic record): B/P: 137/83 (04/08/2024 14:39) Pulse: 62 (04/08/2024 14:39) Temperature: 98.1 F [36.7 C] (04/08/2024 14:39) Weight: 270 lb [122.47 kg] (04/08/2024 14:39) Height: 75 in [190.5 cm] (08/10/2022 12:05) BMI: 33.8 Pain: 6 (04/08/2024 14:39) (0-10 scale) Cardiovascular:RRR, no S3/4/murmur. Respiratory: Diminished breath sounds in bases bilaterally ABD/GI: BS present, no tenderness to palpation MSK: Ambulates without difficulty. Left foot, no swelling, tenderness to posterior great toe. 1+ pedal pulses bilaterally, foot exam with monofilament completed. Psych: Conversational, appropriate DATA REVIEW: HbA1C: HGA1C 6.0 % 02/15/2023 [...] SPECIFIC AG.(PB-STL) 0.518 ng/mL 02/15/2023 11:44 TSH: No TSH (1YR) EO data found INR: No INR EO data found UA: [...] RESULTS MA Result: Above target Follow-up Action: Repeat Data results reviewed with patient and/or caregiver. ASSESSMENT/PLAN: 1) Bilateral knee pain. -X-rays of bilateral knees ordered. -Patient declined knee braces and topical NSAID. 2) Left plantar fascial fibromatosis - Discussed arch support in shoes -Gentle rolling of arch with warm water bottle and gentle stretches with towel. 4) COPD -Continue current medical regimen -F/u JOSELYN Pulm on 28AUG2024 -PFT scheduled for 28AUG2024 as well 5)Nicotine abuse -Encouraged continued weaning of his vape. 6) Hx of Stroke -Continue Clopidogrel 75mg daily. 8) Hyperlipidemia -Continue Rosuvastatin 20mg daily. 9) HTN with CKD IIIa -Continue Lisinopril 20mg daily. 10)HM -Labs ordered. Patient aware to complete today. RETURN TO CLINIC:>>>>>>>>>>>>OCTOBER 2024 SUMMARY STATEMENT: Plan of care has been discussed with including expected therapeutic benefits and potential side effects of prescribed medication and treatments. [place] verbalizes understanding and is in agreement with the plan of care. Patient was instructed to keep all scheduled appointments and contact english as a second language instructor for any additional problems. PREVENTION & SCREENING: ALCOHOL: Clinical Reminder not due now or within a month BLOOD PRESSURE: Clinical Reminder not due now or within a month HEMOGLOBIN A1C: Clinical Reminder not due now or within a month THE SUPERVISING PHYSICIAN FOR THIS PATIENT ENCOUNTER IS DR. Castellon /argelia HARTLEY STUDENT NURSE PRACTITIONER Signed: 04/08/2024 16:18 /loreta/ WES SAXENA [facility] ADULT NURSE PRACTITIONER Cosigned: 04/08/2024 16:19 04/08/2024 ADDENDUM STATUS: COMPLETED Author was present during MACARONI PRESS OPERATOR Student Naeem's review of PMH, examine and POC. Author reviewed PMH, examined pt and agrees with noted POC. -- Discussed stretching and ROM exercises with pt. Offered oral Prednisone and pt declined. Aware to report if worsens or doesn't nora /argelia SAXENA [facility] ADULT NURSE PRACTITIONER Signed: 04/08/2024 16:21 MILES HARTLEY [facility] Apr 08, 2024 02:44 PM NURSING NOTE: LOCAL TITLE: V15 PACT FACE TO FACE NOTE STL STANDARD TITLE: NURSING NOTE DATE OF NOTE: APR 08, 2024@14:44 ENTRY DATE: APR 08, 2024@14:44:45 AUTHOR: OVERTURF,ROD A EXP COSIGNER: URGENCY: STATUS: COMPLETED Provider Visit: Patient Identifiers : Full Name Date of Reason for visit: Established Follow-Up Mode of Arrival: Ambulatory Allergy Review: [facility] Allergy list reviewed and remains current. Recent Vital Signs: Temperature: 98.1 F [36.7 C] (04/08/2024 14:39) Pulse: 62 (04/08/2024 14:39) Respiration: 20 (04/08/2024 14:39) B/P: 137/83 (04/08/2024 14:39) Pain: 6 (04/08/2024 14:39) Wt: 270 lb [122.47 kg] (04/08/2024 14:39) Ht: 75 in [190.5 cm] (08/10/2022 12:05) BMI: 33.8 POX: 94% (04/08/2024 14:39) Would you like to discuss any personal problem, family problem, alcohol use, drug use, or a mental or emotional illness? No Contact provided Primary Care phone number and encouraged to call if any questions or concerns. Review that after hours nurse line [phone] and emergency room are available 24/12 for patient use. Contact verbalized good understanding. Suicide Screen - V: C-SSRS Screening [place] Suicide Severity Rating Scale (C-SSRS) screener 1. Over the past month, have you wished you were or wished you could go to sleep and not wake up? No 2. Over the past month, have you had any actual thoughts of killing yourself? No 3. Over the past month, have you been thinking about how you might do this? Response not required due to responses to other questions. 4. Over the past month, have you had these thoughts and had some intention of acting on them? Response not required due to responses to other questions. 5. Over the past month, have you started to work out or worked out the details of how to kill yourself? Response not required due to responses to other questions. 6. If yes, at any time in the past month did you intend to carry out this plan? Response not required due to responses to other questions. 7. In your lifetime, have you ever done anything, started to do anything, or prepared to do anything to end your life (for example, collected pills, obtained a gun, gave away valuables, went to the roof but didn't jump)? No 8. If YES, was this within the past 3 months? Response not required due to responses to other questions. Tobacco Use Screening - U,L,N,S,PS,M,DE,PH,P: The patient smokes cigarettes every day. The patient has never used other types of tobacco. Patient was advised to stop smoking and/or using other tobacco products. Advised patient that a combination of behavioral counseling and FDA-approved cessation medications is the most effective way to ensure their success in stopping to smoke and/or using other tobacco products. The patient was not interested in additional information about behavioral counseling and other support strategies discussed. Informed patient that medications can help with cravings and withdrawal symptoms, and they greatly increase the chances of successfully stopping your tobacco use. The patient was not interested in a prescription for tobacco cessation medications. COVID-19 Immunization - L,N,P,PH,U: Patient received a prior dose of the Pfizer Monovalent vaccine. Documented: COVID-19 (PFIZER), MRNA, LNP-S, PF, AGUILAR-SUCROSE, 30 MCG/0.3 ML (AGES 12+ YEARS) Historical Date Administered: Mar 2024 Exact date unknown Outside Location: [facility] Information Source: FROM PATIENT'S RECALL Alcohol Use Screen (AUDIT-C) - V: Alcohol Screen: SCREEN FOR ALCOHOL (AUDIT-C) An alcohol screening test (AUDIT-C) was negative (score=0). 1. How often did you have a drink containing alcohol in the past year? Consider a drink to be a 12 ounce can or bottle of regular beer, 8 ounces of malt liquor, a 5 ounce glass of table wine, or a 1.5 ounce shot of liquor (like scotch, gin, or vodka). Never 2. How many drinks containing alcohol did you have on a typical day when you were drinking in the past year? Response not required due to responses to other questions. 3. How often did you have six or more drinks on one occasion in the past year? Response not required due to responses to other questions. Depression Screening - V: Perform PHQ-2 A PHQ-2 screen was performed. The score was 0 which is a negative screen for depression. Over the past two weeks, how often have you been bothered by the following problems? 1. Little interest or pleasure in doing things Not at all 2. Feeling down, depressed, or hopeless Not at all Influenza Immunization - L,N,P,PH,U: Influenza, High-Dose, Trivalent, Preservative Free (Fluzone-Syringe) Administered: INFLUENZA, HIGH-DOSE, TRIVALENT, PF Date Administered: Apr 08, 2024 14:30 Transmission Mechanic: SANVOYAA PASTEUR Lot: [id number] Exp Date: Nov 30, 2024 [facility]: [id number] Admin Route/Site: INTRAMUSCULAR/RIGHT DELTOID Dosage: 0.5mL Vaccine Information Statement(s): INFLUENZA(FLU) VACC(INACTIVATED OR RECOMBINANT)VIS Jan 06, 2021 ([facility]ZE[facility]) Order By: Policy Administered By: Rod Salcedo The Influenza Vaccine Information Statement (VIS) was reviewed with the patient/caregiver which lists the benefits and risks of the vaccine and the risks of not receiving the Influenza vaccine. The patient/caregiver denied any prior severe reaction to this vaccine or its components or a severe allergic reaction, such as anaphylaxis, to any vaccine or any injectable therapy. The patient/caregiver gave verbal consent to receive the vaccine. PTSD Screening - V: PC-PTSD-5 A PTSD screening test (PC-PTSD-5) was negative (score=0). IN THE PAST MONTH, have you ever had any experience that was so frightening, horrible or traumatic. For example: A serious accident or fire a physical or sexual assault or abuse An earthquake or flood A war Seeing someone be killed or seriously injured Having a loved one through homicide or suicide 1. Have you ever experienced this kind of event? NO 2. Had nightmares about the event(s) or thought about the event(s) when you did not want to? Response not required due to responses to other questions. 3. Tried hard not to think about the event(s) or went out of your way to avoid situations that reminded you of the event(s)? Response not required due to responses to other questions. 4. Been constantly on guard, watchful, or easily startled? Response not required due to responses to other questions. 5. [place] numb or detached from people, activities, or your surroundings? Response not required due to responses to other questions. 6. [place] guilty or unable to stop blaming yourself or others for the event(s) or any problems the event(s) may have caused? Response not required due to responses to other questions. Pneumococcal PPSV23 (Pneumovax) - L,N,P,PH,U: The patient declines to receive the recommended dose of PPSV23 vaccine. Immunization: PNEUMOCOCCAL POLYSACCHARIDE PPV23 Refusal Reason: PATIENT DECISION Patient refuses all immunization(s) in the PneumoPPV group Date Documented: 04/08/24 14:49 /loreta/ ROD SALCEDO LPN LICENSED PRACTICAL NURSE Signed: 04/08/2024 14:49 ROD SALCEDO [facility]
--- OUTSIDE RECORDS SUMMARY | 2024-07-30 10:59 | XMS_ITS | Encounter Summary ---
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 Name Role Phone JESSICA KAY Primary Care [...] ACTIV E [place] HIGH Jun 03, 2013 [id number] [phone] JOSEPHINE DiamondROSITA SPOUSE MEDICARE (WNR) MEDICARE (M) PART A Jul 04, 2016 PART A [id number] HERMES GRIMMY PATIENT MEDICARE (WNR) MEDICARE (M) PART B Jul 04, 2016 PART B [id number] RICHARDSO N,ELI PATIENT MEDICARE (WNR) MEDICARE (M) PART A Jul 04, 2016 PART A [id number] EMMASO N,ELI PATIENT MEDICARE (WNR) MEDICARE (M) PART B Jul 04, 2016 PART B [id number] EMMASO N,ELI PATIENT MEDICARE (WNR) MEDICARE (M) PART A Jul 04, 2016 PART A [id number] EMMASO N,ELI PATIENT MEDICARE (WNR) MEDICARE (M) PART B Jul 04, 2016 PART B [id number] EMMASO N,ELI PATIENT MEDICARE (WNR) MEDICARE (M) PART A Jul 04, 2016 PART A [id number] [phone] EMMASO N,ELI PATIENT MEDICARE (WNR) MEDICARE (M) PART B Jul 04, 2016 PART B [id number] EMMASO N,ELI PATIENT PRIME THERAPEUTI CS RX PRESCRIPT ION RX PLAN Jun 03, 2013 [id number] [phone] EMMASO N,ELI PATIENT Selected Encounter This section includes the information on record at [place] for the Encounter. Date/Time Encounter Type Encounter Description Reason Provider Source October 22, 2023 10:00 AM OFFICE O/P EST MOD 30 MIN OPTOMETRY ICD-10-CM H34.211 Partial retinal artery occlusion, right eye ELOY DUQUE [facility] Encounter Template Text not used by [place] Assessments - Encounter Diagnoses This section includes the primary and secondary diagnoses documented for the Encounter. Date/Time Primary/Secondary Diagnosis Diagnosis Name Provider Source October 22, 2023 11:34 AM PRIMARY Partial retinal artery occlusion, right eye ELOY DUQUE [facility] October 22, 2023 11:34 AM SECONDARY Age-related nuclear cataract, bilateral ELOY DUQUE [place] [facility] October 22, 2023 11:34 AM SECONDARY Open angle with borderline findings, low risk, bilateral ELOY DUQUE [facility] October 22, 2023 11:34 AM SECONDARY Presbyopia ELOY DUQUE [place] [facility] October 22, 2023 11:34 AM SECONDARY Puckering of macula, bilateral ELOY DUQUE [facility] Plan of Treatment: Future Appointments (+ 6 months) and Future Tests (+/- 45 days) The Plan of Treatment section includes future care activities for the patient from all [place] treatmentfacilities. This section includes future appointments and future orders which are active, pending or scheduled. Future Appointments This section includes appointments that were scheduled to occur 6 months from the date of the Encounter, up to a maximum of 20 appointments. The data comes from all [place] treatment facilities. Appointment Date/Time Appointment Type Appointme nt Facility Name October 24, 2023 01:30 PM AMBULATORY - MEDICINE [facility] Nov 05, 2023 10:00 AM AMBULATORY - SURGERY . [facility] Nov 12, 2023 11:00 AM AMBULATORY - MEDICINE [facility] Nov 21, 2023 01:00 PM AMBULATORY - NONE [facility] Dec 12, 2023 02:00 PM AMBULATORY - NONE [facility] Dec 17, 2023 11:00 AM AMBULATORY - SURGERY [facility] Dec 19, 2023 01:00 PM AMBULATORY - NONE [facility] Dec 19, 2023 03:00 PM AMBULATORY - MEDICINE [facility] Dec 23, 2023 10:00 AM AMBULATORY - MEDICINE [facility] Dec 26, 2023 01:00 PM AMBULATORY - NONE [facility] Dec 31, 2023 02:00 PM AMBULATORY - NONE [facility] Jan 02, 2024 02:00 PM AMBULATORY - NONE [facility] Jan 03, 2024 01:30 PM AMBULATORY - MEDICINE [facility] Jan 09, 2024 01:00 PM AMBULATORY - NONE [facility] Jan 22, 2024 01:15 PM AMBULATORY - MEDICINE [facility] Mar 19, 2024 04:30 PM AMBULATORY - MEDICINE [facility] Apr 08, 2024 02:30 PM AMBULATORY - MEDICINE [facility] Apr 16, 2024 07:30 AM AMBULATORY - MEDICINE [facility] Social History: Smoking Status (Most current) and Tobacco Use (All prior to encounter date) This section includes the most current, and the historical, smoking and tobacco- related health factors from the [place] facility where the Encounter took place. Current Smoking Status This section includes the most current smoking, or tobacco-related health factor, from the [place] facility where the Encounter took place. Date/Time Current Smoking Status Comment Facil ity Feb 15, 2023 11:00 AM VA-TOBACCO USER EVERY DAY [facility] Tobacco Use History This section includes a history of the smoking, or tobacco-related health factors, that were collected on or before the date of the Encounter. The data comes from the [place] facility where the Encounter took place. Date/Time Smoking Status/Tobacco Use Comment F acility Feb 15, 2023 11:00 AM VA-TOBACCO USE ADVICE [facility] Feb 15, 2023 11:00 AM VA-TOBACCO USE CHEMICAL DEPENDENCY PROFESSIONAL NO [facility] Feb 15, 2023 11:00 AM VA-TOBACCO USE MED NO [facility] Feb 15, 2023 11:00 AM VA-TOBACCO USE WI 30 MIN OF WAKEUP [facility] Feb 15, 2023 11:00 AM VA-TOBACCO USER EVERY DAY [facility] Feb 19, 2022 11:30 AM VA-TOBACCO DOESNT USE WI 30 MIN WAKEUP [facility] Feb 19, 2022 11:30 AM VA-TOBACCO USE 30 YEARS OR MORE [facility] Feb 19, 2022 11:30 AM VA-TOBACCO USE ADVICE [facility] Feb 19, 2022 11:30 AM VA-TOBACCO USE CHEMICAL DEPENDENCY PROFESSIONAL NO [facility] Feb 19, 2022 11:30 AM VA-TOBACCO USE MED NO [facility] Feb 19, 2022 11:30 AM VA-TOBACCO USER EVERY DAY [facility] October 11, 2020 10:30 AM VA-TOBACCO FORMER USER [facility] October 11, 2020 10:30 AM VA-TOBACCO QUIT < [address] [facility] Encounter Notes: All associated encounter notes This section contains the clinical notes associated to the Encounter. Date/Time Encounter Note(s) Provider Source October 22, 2023 12:10 PM ADDENDUM: LOCAL TITLE: Addendum STANDARD TITLE: ADDENDUM DATE OF NOTE: OCTOBER 22, 2023@12:10:03 ENTRY DATE: OCTOBER 22, 2023@12:10:04 AUTHOR: ABHINAV DUQUE EXP COSIGNER: URGENCY: STATUS: COMPLETED Dear Dr. Harman, I had the pleasure of seeing Mr. Ruelas in the eye clinic. 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 He denies any history of amaurosis fugax. A carotid ultrasound has been ordered and scheduled for 11/05/23. I see that he is also established with cardiology. Please follow up with Mr. Ruelas as you see necessary. I will be seeing him in 2 months for a repeat dilated eye exam. Regards, /es/ ABHINAV DUQUE OD EQUIP MAINT ENG Signed: 10/22/2023 12:11 Receipt Acknowledged By: 10/22/2023 14:02 /es/ Promise Sun PA-C PA-C for WES FLORESCHRISTEN 10/22/2023 14:15 /es/ HARSHIL ALCANTAR RN REGISTERED NURSE 11/07/2023 12:36 /es/ NORIS STARR MD HUMAN SERVICE SPECIALIST 10/22/2023 12:32 /es/ JACOBO TELLO MD,[facility] STAFF SCIENTIFIC SPECIALIST --- Original Document --- 10/22/23 OPTOMETRY NOTE: Last seen: 09/18/23 CC: 1. Hx of Retinal Emboli - OD - Noted on TeleRetina and seen same day 09/18/23 - Was not able to be dilated that day - Here for DFE - Denies amurosis/TIA/CVA symptoms - Reports old history of a stroke around 2014 2. Vision is ok - Would like to order glasses - Didn't have time last time Ocular Meds: None Ocular ROS: (+) Hx of Retinal Emboli OD *Superior (+) Cataracts OU Family OcHX: (-) blindness (-) glaucoma (-) AMD (-) RD Problem list, medications and allergies reviewed: [facility] Serology for Diabetes GLUCOSE 113 H mg/dL 02/15/2023 11:44 HGA1C 6.0 % 02/15/2023 11:44 Cardiovascular BP: 102/68 (10/10/2023 13:43) Pulse: 62 (10/10/2023 13:43) VISUAL ACUITY (DOC): WithOUT correction, Distance Visual Acuity OD: 20/25 OS: 20/50 Pupils: PERRL OU (-)APD Confrontation: FTFC OU Extra-Ocular Muscles: Full OU Externals/Adnexa: (+)Dermatochalasis OU Manifest Refraction: 09/18/23, see acuity above for today's vision OD: -0.25 -0.25 x100 20/20 OS: -2.00 -0.50 x120 20/30+ Add: +2.50 SLIT LAMP EXAMINATION Lids/Lashes/Lacrimal MGD OU Conjunctiva/Sclera White/quiet OU Cornea Clear OU Ant Chamber Deep and quiet OU Iris Normal, (-)NVI OU Lens 1-2+ NS OU, Posterior Cortical >nasal OS Intraocular Pressure History (Fluress/Goldmann): Date OD OS Time Meds 09/18/23 15 15 1450 none 10/22/23 15 15 1000 none Additional testing: brought forward and updated as needed OCT RNFL: 10/22/23 OD: avg 101, thick inf (146) OS: avg 100, thick inf (150) *GCC: no thinning 360 OU OCT MACULA: 10/22/23 OD: normal foveal contour, trace ERM superior, no SRF/IRF OS: normal foveal contour, mild ERM superior, no SRF/IRF Fundus Photos: 10/22/23 - available to view on FORUM RETINAL EVALUATION: dilation warning, both eyes, 1% Tropicamide and 2.5% Phenylephrine 10/22/23 Optic Nerve: OD: 0.55 CDR Flat, pink, distinct (-)NVD OS: 0.55 CDR Flat, pink, distinct (-)NVD Vessels: 2/3 OU, (+)HHP S arcade after 1st bifurcation OD - appears stable to teleretina photos 09/18/23 Macula: OD: Flat, (+)trace ERM, (-)CSME OS: Flat, (+)mild ERM, (-)CSME Periphery: OD: Flat and attached OS: Flat and attached Vitreous: No PVD O.U. Assessment/Plan: 10/22/23 1. HHP, OD - Noted 09/18/23 on TeleRetina, pt. seen same day in eye clinic - CUS ordered but patient was not educated about this test and didn't know to expect a call, reached out to engineer sergeant in office today while patient was present and scheduled CUS for 11/05/23 at 10am - (+) HTN, CKD stage three, HLD, Pre-DM - Pt. reports history of past stroke in 2014? *Hx of ischemic CVA (on plavix), established with cardiology (last seen 10/10/23) - Pt. denies amurosis/TIA/CVA - Fundus photos obtained today - Educated patient on findings - Reviewed photos and stressed importance of maintaining CUS appt - Reviewed s/sx of amurosis/TIA/CVA and instructed patient to seek emergent care STAT - Will alert PCP today to f/u with patient - Monitor in 2 months with repeat DFE, will need HVF 24-2 in future 2. Moderate CDR, OU - Untreated IOP today: 15/15 - Open angles on estimation - OCT RNFL (10/2023): OD: avg 101, thick inf (146) OS: avg 100, thick inf (150) *GCC: no thinning 360 OU - Pending HVF 24-2 - No known FHx - Educate patient on exam findings and the importance of close monitoring and follow up visits. - NO treatment indicated at this time - Will schedule for HVF 24-2 after resolution of #1 3. Cataracts, OU - Discussed impact on vision - Mildly visually significant OS>OD - Defer referral for CE-PCIOL until s/sx indicate 4. Presbyopia and refractive error, OU - Order DVO/NVO Educate and monitor, discussed all exam findings. Patient and/or surrogate verbalized understanding of the instructions/information given. RTC: 2 months repeat DFE (HVF 24-2 while dilating if possible); sooner PRN /loreta/ ABHINAV DUQUE OD EQUIP MAINT ENG Signed: 10/22/2023 12:08 ABHINAV DUQUE [facility] October 22, 2023 12:09 PM OPTOMETRY CONSULT: LOCAL TITLE: OPTOMETRY CONSULT STL STANDARD TITLE: OPTOMETRY CONSULT DATE OF NOTE: OCTOBER 22, 2023@12:09 ENTRY DATE: OCTOBER 22, 2023@12:09:38 AUTHOR: ABHINAV DUQUE EXP COSIGNER: URGENCY: STATUS: COMPLETED Fundus Photos: 10/22/23 - available to view on FORUM /loreta/ ABHINAV DUQUE OD EQUIP MAINT ENG Signed: 10/22/2023 12:09 ABHINAV DUQUE [facility] October 22, 2023 12:08 PM OPTOMETRY CONSULT: LOCAL TITLE: OPTOMETRY CONSULT ST STANDARD TITLE: OPTOMETRY CONSULT DATE OF NOTE: OCTOBER 22, 2023@12:08 ENTRY DATE: OCTOBER 22, 2023@12:08:58 AUTHOR: ABHINAV DUQUE EXP COSIGNER: URGENCY: STATUS: COMPLETED OCT RNFL: 10/22/23 OD: avg 101, thick inf (146) OS: avg 100, thick inf (150) *GCC: no thinning 360 OU OCT MACULA: 10/22/23 OD: normal foveal contour, trace ERM superior, no SRF/IRF OS: normal foveal contour, mild ERM superior, no SRF/IRF /loreta/ ABHINAV DUQUE OD EQUIP MAINT ENG Signed: 10/22/2023 12:09 ABHINAV DUQUE [place] [facility] October 22, 2023 07:34 AM OPTOMETRY NOTE: LOCAL TITLE: OPTOMETRY NOTE STANDARD TITLE: OPTOMETRY NOTE DATE OF NOTE: OCTOBER 22, 2023@07:34 ENTRY DATE: OCTOBER 22, 2023@07:34:15 AUTHOR: ABHINAV DUQUE EXP COSIGNER: URGENCY: STATUS: COMPLETED OPTOMETRY NOTE Has ADDENDA Last seen: 09/18/23 CC: 1. Hx of Retinal Emboli - OD - Noted on TeleRetina and seen same day 09/18/23 - Was not able to be dilated that day - Here for DFE - Denies amurosis/TIA/CVA symptoms - Reports old history of a stroke around 2014 2. Vision is ok - Would like to order glasses - Didn't have time last time Ocular Meds: None Ocular ROS: (+) Hx of Retinal Emboli OD *Superior (+) Cataracts OU Family OcHX: (-) blindness (-) glaucoma (-) AMD (-) RD Problem list, medications and allergies reviewed: [facility] Serology for Diabetes GLUCOSE 113 H mg/dL 02/15/2023 11:44 HGA1C 6.0 % 02/15/2023 11:44 Cardiovascular BP: 102/68 (10/10/2023 13:43) Pulse: 62 (10/10/2023 13:43) VISUAL ACUITY (DOC): WithOUT correction, Distance Visual Acuity OD: 20/25 OS: 20/50 Pupils: PERRL OU (-)APD Confrontation: FTFC OU Extra-Ocular Muscles: Full OU Externals/Adnexa: (+)Dermatochalasis OU Manifest Refraction: 09/18/23, see acuity above for today's vision OD: -0.25 -0.25 x100 20/20 OS: -2.00 -0.50 x120 20/30+ Add: +2.50 SLIT LAMP EXAMINATION Lids/Lashes/Lacrimal MGD OU Conjunctiva/Sclera White/quiet OU Cornea Clear OU Ant Chamber Deep and quiet OU Iris Normal, (-)NVI OU Lens 1-2+ NS OU, Posterior Cortical >nasal OS Intraocular Pressure History (Fluress/Goldmann): Date OD OS Time Meds 09/18/23 15 15 1450 none 10/22/23 15 15 1000 none Additional testing: brought forward and updated as needed OCT RNFL: 10/22/23 OD: avg 101, thick inf (146) OS: avg 100, thick inf (150) *GCC: no thinning 360 OU OCT MACULA: 10/22/23 OD: normal foveal contour, trace ERM superior, no SRF/IRF OS: normal foveal contour, mild ERM superior, no SRF/IRF Fundus Photos: 10/22/23 - available to view on FORUM RETINAL EVALUATION: dilation warning, both eyes, 1% Tropicamide and 2.5% Phenylephrine 10/22/23 Optic Nerve: OD: 0.55 CDR Flat, pink, distinct (-)NVD OS: 0.55 CDR Flat, pink, distinct (-)NVD Vessels: 2/3 OU, (+)HHP S arcade after 1st bifurcation OD - appears stable to teleretina photos 09/18/23 Macula: OD: Flat, (+)trace ERM, (-)CSME OS: Flat, (+)mild ERM, (-)CSME Periphery: OD: Flat and attached OS: Flat and attached Vitreous: No PVD O.U. Assessment/Plan: 10/22/23 1. HHP, OD - Noted 09/18/23 on TeleRetina, pt. seen same day in eye clinic - CUS ordered but patient was not educated about this test and didn't know to expect a call, reached out to engineer sergeant in office today while patient was present and scheduled CUS for 11/05/23 at 10am - (+) HTN, CKD stage three, HLD, Pre-DM - Pt. reports history of past stroke in 2014? *Hx of ischemic CVA (on plavix), established with cardiology (last seen 10/10/23) - Pt. denies amurosis/TIA/CVA - Fundus photos obtained today - Educated patient on findings - Reviewed photos and stressed importance of maintaining CUS appt - Reviewed s/sx of amurosis/TIA/CVA and instructed patient to seek emergent care STAT - Will alert PCP today to f/u with patient - Monitor in 2 months with repeat DFE, will need HVF 24-2 in future 2. Moderate CDR, OU - Untreated IOP today: 1515 - Open angles on estimation - OCT RNFL (10/2023): OD: avg 101, thick inf (146) OS: avg 100, thick inf (150) *GCC: no thinning 360 OU - Pending HVF 24-2 - No known FHx - Educate patient on exam findings and the importance of close monitoring and follow up visits. - NO treatment indicated at this time - Will schedule for HVF 24-2 after resolution of #1 3. Cataracts, OU - Discussed impact on vision - Mildly visually significant OS>OD - Defer referral for CE-PCIOL until s/sx indicate 4. Presbyopia and refractive error, OU - Order DVO/NVO Educate and monitor, discussed all exam findings. Patient and/or surrogate verbalized understanding of the instructions/information given. RTC: 2 months repeat DFE (HVF 24-2 while dilating if possible); sooner PRN /loreta/ ABHINAV DUQUE OD EQUIP MAINT ENG Signed: 10/22/2023 12:08 10/22/2023 ADDENDUM STATUS: COMPLETED Dear Dr. Harman, I had the pleasure of seeing Mr. Ruelas in the eye clinic. 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 He denies any history of amaurosis fugax. A carotid ultrasound has been ordered and scheduled for 11/05/23. I see that he is also established with cardiology. Please follow up with Mr. Ruelas as you see necessary. I will be seeing him in 2 months for a repeat dilated eye exam. Regards, /loreta/ ABHINAV DUQUE OD EQUIP MAINT ENG Signed: 10/22/2023 12:11 Receipt Acknowledged By: * AWAITING SIGNATURE * WES GARCIA * AWAITING SIGNATURE * HARSHIL CISNEROS * AWAITING SIGNATURE * NORIS STARR * AWAITING SIGNATURE * JACOBO TELLO RAMYA [facility]
--- OUTSIDE RECORDS SUMMARY | 2024-07-30 10:59 | XMS_ITS | Encounter Summary ---
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 Address [address] [place] [address] Care Team Providers Care Strategy Execution Consultant Name Role Phone JESSICA KAY Primary Care [...] ACTIV E [place] HIGH Jun 03, 2013 [phone] JOSEPHINE DiamondROSITA SPOUSE MEDICARE (WNR) MEDICARE (M) PART B Jul 04, 2016 PART B [id number] HERMES GRIMMY PATIENT MEDICARE (WNR) MEDICARE (M) PART A Jul 04, 2016 PART A [id number] RICHARDSO N,ELI PATIENT MEDICARE (WNR) MEDICARE (M) PART A Jul 04, 2016 PART A [id number] EMMASO N,ELI PATIENT MEDICARE (WNR) MEDICARE (M) PART B Jul 04, 2016 PART B [id number] EMMASO N,ELI PATIENT MEDICARE (WNR) MEDICARE (M) PART A Jul 04, 2016 PART A [id number] [phone] EMMASO N,ELI PATIENT MEDICARE (WNR) MEDICARE (M) PART B Jul 04, 2016 PART B [id number] [phone] RICHARDSO N,ELI PATIENT MEDICARE (WNR) MEDICARE (M) PART A Jul 04, 2016 PART A [id number] EMMASO N,ELI PATIENT MEDICARE (WNR) MEDICARE (M) PART B Jul 04, 2016 PART B [id number] EMMASO N,ELI PATIENT PRIME THERAPEUTI CS RX PRESCRIPT ION RX PLAN Jun 03, 2013 [id number] [phone] EMMASO N,ELI PATIENT Selected Encounter This section includes the information on record at [place] for the Encounter. Date/Time Encounter Type Encounter Description Reason Provider Source Sep 10, 2023 11:00 AM OFFICE O/P EST MOD 30 MIN PULMONARY/CHEST ICD-10-CM Z72.0 Tobacco use GLENDA SUTHERLAND Redd Encounter Template Text not used by [place] Assessments - Encounter Diagnoses This section includes the primary and secondary diagnoses documented for the Encounter. 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 This section includes future appointments and future orders which are active, pending or scheduled. Future Appointments This section includes appointments that were scheduled to occur 6 months from the date of the Encounter, up to a maximum of 20 appointments. The data comes from all [place] treatment facilities. Appointment Date/Time Appointment Type Appointme nt Facility Name Sep 18, 2023 01:00 PM AMBULATORY - MEDICINE [facility] Sep 18, 2023 02:00 PM AMBULATORY - MEDICINE [facility] Sep 18, 2023 02:30 PM AMBULATORY - SURGERY [facility] October 10, 2023 01:30 PM AMBULATORY - MEDICINE [facility] October 22, 2023 10:00 AM AMBULATORY - SURGERY [facility] October 24, 2023 01:30 PM AMBULATORY - MEDICINE [facility] Nov 05, 2023 10:00 AM AMBULATORY - SURGERY [facility] Nov 12, 2023 11:00 AM AMBULATORY - MEDICINE [facility] Nov 21, 2023 01:00 PM AMBULATORY - NONE [facility] Dec 12, 2023 02:00 PM AMBULATORY - NONE [facility] Dec 17, 2023 11:00 AM AMBULATORY - SURGERY [facility] Dec 19, 2023 01:00 PM [facility]ORY - NONE [facility] Dec 19, 2023 03:00 PM AMBULATORY - MEDICINE [facility] Dec 23, 2023 10:00 AM AMBULATORY - MEDICINE [facility] Dec 26, 2023 01:00 PM AMBULATORY - NONE [facility] Dec 31, 2023 02:00 PM AMBULATORY - NONE [facility] Jan 02, 2024 02:00 PM AMBULATORY - NONE [facility] Jan 03, 2024 01:30 PM AMBULATORY - MEDICINE [facility] Jan 09, 2024 01:00 PM AMBULATORY - NONE [facility] [facility] Jan 22, 2024 01:15 PM AMBULATORY - MEDICINE [facility] Lab Results: +/- 30 days [...] Range Comment Aug 28, 2023 03:23 PM [facility] I-STAT, CREAT (STL-MA) Specimen Type: BLOOD Comment: Test Performed by: [id number] Meter #: [id number] Ordering Provider: STANTON GARCIA Report Released Date/Time: Aug 28, 2023 04:17 PM Reporting Lab: [facility] [address] [id number] Performing Lab: [facility] [address] [place] [id number] I-STAT, CREAT (STL-MA) 1.0 mg/dL 0.7-1.3 Radiology Reports: +/- 30 days of the [...] the Encounter. The data comes from all [place] treatment facilities. Date/Time Radiology Report Provider Source Sep 18, 2023 03:48 PM FOOT,RIGHT,3 VIEWS OR MORE: ELI RUELAS [facility] [place] [place] [id number] -1955 [facility] Date: SEP 18, 2023@15:48 Req Phys: WES GARCIA Pat Loc: [facility] E3 PCP (Req'g Loc) Img Loc: [facility] Service: Unknown (Case [id number] COMPLETE) FOOT,RIGHT,3 VIEWS OR MORE (RAD Detailed) CPT:35690 Proc Modifiers : RIGHT Reason for Study: Right foot pain Clinical History: Right foot pain, localized at instep Report Status: Verified Date Reported: SEP 21, 2023 Date Verified: SEP 21, 2023 Steel Fabricating Supervisor E-Sig:/ES/Amyzac Trevino MD Report: FINDINGS: There is mild hallux valgus deformity and spur formation is seen at plantar aspect. No other significant bone or joint abnormality is demonstrated. No significant acute findings or evidence of recent bone injury. Impression: Mild hallux valgus deformity and calcaneal spur is noted without significant acute findings. Primary Interpreting Staff: Amy Trevino MD, Radiologist (Steel Fabricating Supervisor) /QMB AMY TREVINO [facility] Aug 28, 2023 03:[address] THORAX, DIAGNOS TIC, W/CONTRAST: ELI RUELAS [id number] -1955 M Exm Date: AUG 28, 2023@15:09 Req Phys: ALEM FREY Loc: [facility] FLASH AM (Req'g Loc) Img Loc: [facility] Service: Unknown (Case [id number] COMPLETE) CT THORAX, DIAGNOSTIC, W/CONTRAS(CT Detailed) CPT:54172 Contrast Media : Non-ionic Iodinated Reason for Study: Jennifer Ca Surveillance RML resection Clinical History: Responsible Attending: Shante Attending Contact Number: [phone] Resident Contact Number: Allergies listed in CPRS chart: CHANTIX Creatinine: CREATININE 1.24 mg/dL 02/19/2022 11:04 /eGFR: STL EGFR (within one year). CREATININE 1.24 mg/dL (02/19/22 11:04) Wt: 257.6 lb [116.85 kg] (08/17/2022 11:29) History of: Renal failure, chronic or acute renal disease: YES Report Status: Verified Date Reported: AUG 29, 2023 Date Verified: AUG 29, 2023 Steel Fabricating Supervisor E-Sig:/ES/Oswald Coronado MD Report: CASE #: [id number] DATE:08/28/2023 4:30 PM CLINICAL HISTORY:Jennifer Ca Surveillance [...] Primary Interpreting Staff: Oswald Coronado MD, Radiologist (Steel Fabricating Supervisor) /OSWALD PEREIRA [facility] Encounter Notes: All associated encounter notes This section contains the clinical notes associated to the Encounter. Date/Time Encounter Note(s) Provider Source Sep 10, 2023 11:46 AM PULMONARY OUTPATIE NT NOTE: LOCAL TITLE: PULMONARY OUTPATIENT FOLLOW UP STL STANDARD TITLE: PULMONARY OUTPATIENT NOTE DATE OF NOTE: SEP 10, 2023@11:46 ENTRY DATE: SEP 10, 2023@11:46:24 AUTHOR: GLENDA SUTHERLAND EXP COSIGNER: URGENCY: STATUS: COMPLETED The [place] was educated about the use of Clinical Video Telehealth for this encounter. The [place] also understands that a video-technology is being used for this visit. The [place] consents to be seen today using Clinical Video Telehealth. Emergency Services contact [phone] Full name and last 4 of SSN verified Patient location during visit: Home [address] [address] Emergency number confirmed. PRINCIPAL DIAGNOSIS: Tobacco Use Interval HPI: Mr. Ruelas is a 68 yo M. pMHX: NSCLC s/p curative resection August 2020, Current Tobacco User, Moderate COPD--Gold 2A. Pt is not a candidate for LCS d/t his hx of Lung CA. [place] here today to discuss Smoking Cessation opportunities. Pt does follow in pulmonary clinic by Dr. Frey-- Recently seen 08/30/2023. Pt Denies any recent ER visits or Hospitalizations. Denies any recent worsening SOB, Cough, Fever, Chills, or unexplained weight Loss. Reports he does have SOB w/ Exertion. Pt states he has used Wellbutrin in the past and it has been successful in helping him cut back on smoking. He recently quit using it about 6 weeks ago. Quit because he thought he would be able to quit on his own. When taking Wellbutrin pt was down to smoking 3-4 cigarettes as day. Currently smoking around 8-10/day. Pt reports the gum upset his stomach. He also tried the patches and it didn't work well for him. He prefers Wellbutrin. Denies any hx of seizures. No issues taking it in the past. Social History: *Substance use: Tobacco: Currently smoking 8-10 cigarettes. Smoked x46 years Alcohol: None Illicit Drugs/MJ: Sometimes down MJ-edibles *Cancer History: Personal: Lung CA Family: Brother-- Leukemia * History: [employer] x3 years *Environmental Exposures: Asbestos *COVID-19 Hx: 2022 *Living arrangement: *Occupational: Retired PFT: 08/11/2022 FEV1 2.27/55%, DLCO 34% ROS: A complete 10 point ROS was performed as per interval history. All other systems were reviewed and negative other than those as mentioned. Active Outpatient Medications (including Supplies): Active Outpatient Medications Status 1) METHOCARBAMOL 500MG TAB TAKE 1 TABLET BY MOUTH THREE ACTIVE TIMES A DAY NEEDED FOR MUSCLE SPASM Pending Outpatient Medications Status 1) BUPROPION HCL 150MG 12HR SA TAB TAKE ONE TABLET BY PENDING MOUTH ONCE A DAY FOR 3 DAYS, THEN TAKE ONE TABLET TWICE A DAY SWALLOW WHOLE - DO NOT CRUSH OR CHEW. Active Non-VA Medications Status 1) Non-VA CLOPIDOGREL BISULFATE 75MG TAB 75MG BY MOUTH ACTIVE ONCE A DAY 2) Non-VA LISINOPRIL 40MG TAB 20MG BY MOUTH ONCE A DAY ACTIVE 3) Non-VA ROSUVASTATIN CA 40MG TAB 20MG BY MOUTH EVERY ACTIVE EVENING 4) Non-VA PYJSPOPRTJFH61.5/VILANTEROL 25MCG 30D INH 1 ACTIVE PUFF ORAL INHALATION ONCE A DAY 6 Total Medications PAST HISTORY: 1) History of [...] 16) Chronic kidney disease stage 3A OBJECTIVE: [facility] Physical Exam Home vitals: GENERAL: No acute distress. Sitting comfortably Respiratory: Regular respiratory rate. Musculoskeletal: No joint deformity or effusion apparent on video Neuro: Alert and orientated SKIN: No obvious rash or ecchymosis. Objective: HGA1C 6.0 % 02/15/2023 11:44 HGA1C [...] TSH 0.778 uIU/mL 02/15/2023 11:44 Allergies: CHANTIX ASSESSMENT AND RECOMMENDATIONS #Tobacco Cessation - Prescribed Wellbutrin x 12 weeks. f/u in 8 weeks to see how pt is doing with cutting back. - Reviewed common SE of wellbutrin with pt. - Declines using any other forms of NRT at this time. - Informed [place] that quitting smoking is one of the best things to improve and maintain health - Education provided regarding tobacco use, specifically multifactorial health risks, including but limited to Lung Cancer, Stroke, SC, Poor Wound Healing - Education provided on available smoking cessation treatments including OTC and/or prescription medications, and/or counseling - Pt declined any interest in [place] Smoking cessation program or acupuncture at this time. #COPD: Ctn current regimen. RTC: 11/12/2023 Patient verbalized understanding and has no questions. [...] completed, the results will be found in [facility]. # HEALTH PROMOTION/HEALTH MAINTENANCE & EDUCATION [...] this patient: before, during and after the C visit today more than 50% of the provider's 35 visit time with a patient is spent in counseling or coordination of care /loreta/ GLENDA SUTHERLAND APRN NURSE PRACTITIONER, SURGERY SERVICE CCT Signed: 09/10/2023 11:50 GLENDA SUTHERLAND [facility]
--- OUTSIDE RECORDS SUMMARY | 2024-07-30 10:59 | XMS_ITS | Encounter Summary ---
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 Organization [place] Address [address] [place] [address] Care Team Providers Care Fur Repair Inspector Name Role Phone JESSICA KAY Primary Care [...] ACTIV E [place] HIGH Jun 03, 2013 [id number] [phone] JOSEPHINE DiamondROSITA SPOUSE MEDICARE (WNR) MEDICARE (M) PART B Jul 04, 2016 PART B [id number] [phone] JOSEPHINE DiamondELI PATIENT MEDICARE (WNR) MEDICARE (M) PART A Jul 04, 2016 PART A [id number] [phone] JOSEPHINE Diamond,ELI PATIENT MEDICARE (WNR) MEDICARE (M) PART A Jul 04, 2016 PART A [id number] RICHARDSO N,ELI PATIENT MEDICARE (WNR) MEDICARE (M) PART B Jul 04, 2016 PART B [id number] RICHARDSO N,ELI PATIENT MEDICARE (WNR) MEDICARE (M) PART B Jul 04, 2016 PART B [id number] RICHARDSO N,ELI PATIENT MEDICARE (WNR) MEDICARE (M) PART A Jul 04, 2016 PART A [id number] [phone] RICHARDSO N,ELI PATIENT MEDICARE (WNR) MEDICARE (M) PART A Jul 04, 2016 PART A [id number] RICHARDSO N,ELI PATIENT MEDICARE (WNR) MEDICARE (M) PART B Jul 04, 2016 PART B [id number] RICHARDSO N,ELI PATIENT PRIME THERAPEUTI CS RX PRESCRIPT ION RX PLAN Jun 03, 2013 [id number] [phone] RICHARDSO N,ELI PATIENT Selected Encounter This section includes the information on record at [place] for the Encounter. Date/Time Encounter Type Encounter Description Reason Pro vider Source IHE Encounter Template Text not used by [place]
--- OUTSIDE RECORDS SUMMARY | 2024-07-30 10:59 | XMS_ITS | Encounter Summary ---
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 Name Role Phone JESSICA KAY Primary Care [...] ACTIV E [place] HIGH Jun 03, 2013 [id number] [phone] JOSEPHINE DiamondROSITA SPOUSE MEDICARE (WNR) MEDICARE (M) PART B Jul 04, 2016 PART B [id number] HERMES GRIMMY PATIENT MEDICARE (WNR) MEDICARE (M) PART A Jul 04, 2016 PART A [id number] RICHARDSO N,ELI PATIENT MEDICARE (WNR) MEDICARE (M) PART A Jul 04, 2016 PART A [id number] EMMASO N,ELI PATIENT MEDICARE (WNR) MEDICARE (M) PART B Jul 04, 2016 PART B [id number] EMMASO N,ELI PATIENT MEDICARE (WNR) MEDICARE (M) PART A Jul 04, 2016 PART A [id number] EMMASO N,ELI PATIENT MEDICARE (WNR) MEDICARE (M) PART B Jul 04, 2016 PART B [id number] EMMASO N,ELI PATIENT MEDICARE (WNR) MEDICARE (M) PART A Jul 04, 2016 PART A [id number] EMMASO N,ELI PATIENT MEDICARE (WNR) MEDICARE (M) PART B Jul 04, 2016 PART B [id number] [phone] EMMASO N,ELI PATIENT PRIME THERAPEUTI CS RX PRESCRIPT ION RX PLAN Jun 03, 2013 [id number] [phone] EMMASO N,ELI PATIENT Selected Encounter This section includes the information on record at MD for the Encounter. Date/Time Encounter Type Encounter Description Reason Provider Source October 10, 2023 01:30 PM OFFICE O/P EST MOD 30 MIN CARDIOLOGY ICD-10-CM R06.00 Dyspnea, unspecified OU,JIAFU IHE Encounter Template Text not used by MD Assessments - Encounter Diagnoses This section includes the primary and secondary diagnoses documented for the Encounter. Date/Time Primary/Secondary Diagnosis Diagnosis Name Provider Source Mar 11, 2024 12:18 PM PRIMARY Dyspnea, unspecified SIMONE VALDEZ [facility] Mar 11, 2024 12:18 PM SECONDARY Chronic obstructive pulmonary disease, unspecified SIMONE VALDEZ [facility] Mar 11, 2024 12:18 PM SECONDARY Tobacco use SIMONE VALDEZ [facility] Plan of Treatment: Future Appointments (+ 6 months) and Future Tests (+/- 45 days) The Plan of Treatment section includes future care activities for the patient from all MD treatmentfacilities. This section includes future appointments and future orders which are active, pending or scheduled. Future Appointments This section includes appointments that were scheduled to occur 6 months from the date of the Encounter, up to a maximum of 20 appointments. The data comes from all [facility] facilities. Appointment Date/Time Appointment Type Appointme nt Facility Name October 22, 2023 10:00 AM AMBULATORY - SURGERY [facility] October 24, 2023 01:30 PM AMBULATORY - MEDICINE [facility] Nov 05, 2023 10:00 AM AMBULATORY - SURGERY [facility] Nov 12, 2023 11:00 AM AMBULATORY - MEDICINE [facility] Nov 21, 2023 01:00 PM AMBULATORY - NONE [facility] Dec 12, 2023 02:00 PM AMBULATORY - NONE [facility] Dec 17, 2023 11:00 AM AMBULATORY - SURGERY [facility] Dec 19, 2023 01:00 PM AMBULATORY - NONE [facility] Dec 19, 2023 03:00 PM AMBULATORY - MEDICINE [facility] Dec 23, 2023 10:00 AM AMBULATORY - MEDICINE [facility] Dec 26, 2023 01:00 PM AMBULATORY - NONE [facility] Dec 31, 2023 02:00 PM AMBULATORY - NONE [facility] Jan 02, 2024 02:00 PM AMBULATORY - NONE [facility] Jan 03, 2024 01:30 PM AMBULATORY - MEDICINE [facility] Jan 09, 2024 01:00 PM AMBULATORY - NONE [facility] Jan 22, 2024 01:15 PM AMBULATORY - MEDICINE [facility] Mar 19, 2024 04:30 PM AMBULATORY - MEDICINE [facility] Apr 08, 2024 02:30 PM AMBULATORY - MEDICINE [facility] Vital Signs: All taken on the encounter date This section contains inpatient and outpatient Vital Signs collected on the date of the Encounter. Date/Time Temperature Pulse Blood Pressure Respiratory Rate SP02 Pain Height Weight Body Mass Index Source October 10, 2023 01:43 PM 97.7 62 102/68 16 93 0 260.6 33 [facility] Radiology Reports: +/- 30 days [...] the Encounter. The data comes from all [facility] treatment facilities. Date/Time Radiology Report Provider Source Sep 18, 2023 03:48 PM FOOT,RIGHT,3 VIEWS OR MORE: ELI RUELAS [facility] [id number] -1955 [facility] Date: SEP 18, 2023@15:48 Req Phys: JOSÉ GARCIASA Pat Loc: [facility] PCP (Req'g Loc) Img Loc: [facility] Service: Unknown (Case [id number] COMPLETE) FOOT,RIGHT,3 VIEWS OR MORE (RAD Detailed) CPT:21914 Proc Modifiers : RIGHT Reason for Study: Right foot pain Clinical History: Right foot pain, localized at instep Report Status: Verified Date Reported: SEP 21, 2023 Date Verified: SEP 21, 2023 Asset Protection Lead E-Sig:/ES/Amy Trevino MD Report: FINDINGS: There is mild hallux valgus deformity and spur formation is seen at plantar aspect. No other significant bone or joint abnormality is demonstrated. No significant acute findings or evidence of recent bone injury. Impression: Mild hallux valgus deformity and calcaneal spur is noted without significant acute findings. Primary Interpreting Staff: Amy Trevino MD, Radiologist (Asset Protection Lead) /QMB AMY TREVNIO [facility] Encounter Notes: All associated encounter notes This section contains the clinical notes associated to the Encounter. Date/Time Encounter Note(s) Provider Source October 10, 2023 02:36 PM ADDENDUM: LOCAL TITLE: Addendum STANDARD TITLE: ADDENDUM DATE OF NOTE: OCTOBER 10, 2023@14:36 ENTRY DATE: OCTOBER 10, 2023@14:36:50 AUTHOR: MARIANO VALDEZ EXP COSIGNER: JACOBO TELLO URGENCY: STATUS: COMPLETED he said he is going to get records from his prior hospital visit when he had chest pain and submit it to his PCP at , will have to review records if he had stress test and ECHO done within a year then no further testing is needed, otherwise will need to perform stress testing /loreta/ MARIANO VALDEZ MD RECORDS MANAGEMENT ANALYST Signed: 10/10/2023 14:37 /loreta/ JACOBO TELLO MD,[facility] STAFF SNACK STEWARD Cosigned: 10/10/2023 14:43 Receipt Acknowledged By: 10/10/2023 15:58 /loreta/ WES [facility] ADULT NURSE PRACTITIONER --- Original Document --- 10/10/23 CARDIOLOGY OUTPATIENT CONSULT STL: ===== CARDIOLOGY CLINIC NOTE ===== HISTORY OF [...] a heart attack and went to a [facility] hospital where work up was done and he was told everything was fine, he does not remember if a stress test was done, but remembers for sure that an ECHO was done and he was told his EF was normal. PMHX: ------ 1) History of colonic polyp [...] BY MOUTH EVERY ACTIVE EVENING 4) Non-VA [id number]/VILANTEROL 25MCG 30D INH 1 ACTIVE PUFF ORAL INHALATION ONCE A DAY 7 Total Medications ALLERGIES: ------ CHANTIX SOCIAL HISTORY: ------ - Tobacco:as in HPI - Alcohol:denies - Illicit Substances:denies FAMILY HISTORY: ------ - No family history of coronary artery disease, heart failure, arrhythmia REVIEW OF SYSTEMS: 12 point ROS negative except mentioned in HPI PHYSICAL EXAMINATION: VITALS: Temperature: 97.7 F [36.5 C] (10/10/2023 13:43) Blood Pressure: 102/68 (10/10/2023 13:43) Pulse: 62 (10/10/2023 13:43) Respirations: 16 (10/10/2023 13:43) GENERAL: NAD, comfortable. HEENT: Moist oral mucosa, anicteric sclera. NECK: Supple, no JVD, normal carotid upstrokes without bruits. RESPIRATORY: CTAB, no wheezing/rhonchi/crackles. CARDIOVASCULAR: regular rhythm, normal S1 and S2, no M/R/G. No JVD. 2+radial and DP pulses. 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 (PFT from August 2022 shows combined moderate obstructive and mild restrictive abnormality which did not improve with inhaled bronchodilator abd impairment of diffusion capacity), also s/o lobectomy -also continues to smoke, however actively trying to quit -he said he is going to get records from his prior hospital visit when he had chest pain, will have to review records -if he had stress test and ECHO done within a year then no further testing is needed, otherwise will need to perform stress testing //Active smoker -at least 50 pack years of smoking history -actively trying to quit -AAA screen negative from 2022 //h/o ischemic CVA //h/o R lung NSCC //COPD Telephoe encounter in 2 months All patients are counseled on the [...] completed, the results will be found in [facility]. # HEALTH PROMOTION/HEALTH MAINTENANCE & EDUCATION [...] as directed by the PCP (primary provider). /loreta/ MARIANO VALDEZ MD RECORDS MANAGEMENT ANALYST Signed: 10/10/2023 14:36 /loreta/ JACOBO TELLO MD,[facility] STAFF SNACK STEWARD Cosigned: 10/10/2023 14:42 10/10/2023 ADDENDUM STATUS: COMPLETED Cardiology Attending Note I saw, interviewed and examined Mr. Ruelas with the Head Tennis Professional, Dr. Mariano Valdez. I have reviewed the pt's clinical data including the ECG's, stress, Cath and Echo (when available) with beverage steward. I have reviewed Dr. Mariano Valdez's note and agree with the history, physical findings and the initial assessment and plan. ELI RUELAS is doing stable from cardiac standpoint. Will review his records before further work up. /argelia TELLO MD,[facility] STAFF SNACK STEWARD Signed: 10/10/2023 14:44 10/10/2023 ADDENDUM STATUS: COMPLETED Ordered EKG to make sure he is not in A fib. /argelia VALDEZ MD RECORDS MANAGEMENT ANALYST Signed: 10/10/2023 14:43 /argelia TELLO MD,[facility] STAFF SNACK STEWARD Cosigned: 10/10/2023 14:44 MARIANO VALDEZ [facility] October 10, 2023 02:07 PM CARDIOLOGY CONSULT : LOCAL TITLE: CARDIOLOGY OUTPATIENT CONSULT ST STANDARD TITLE: CARDIOLOGY CONSULT DATE OF NOTE: OCTOBER 10, 2023@14:07 ENTRY DATE: OCTOBER 10, 2023@14:07:41 AUTHOR: MARIANO VALDEZ EXP COSIGNER: JACOBO TELLO URGENCY: STATUS: COMPLETED CARDIOLOGY OUTPATIENT CONSULT STL Has ADDENDA ===== CARDIOLOGY CLINIC NOTE ===== HISTORY OF PRESENT ILLNESS: 68 yo M with PMH of R [facility] s/p curative resection in 2020 complicated by [...] a heart attack and went to a [facility] hospital where work up was done and he was told everything was fine, he does not remember if a stress test was done, but remembers for sure that an ECHO was done and he was told his EF was normal. PMHX: ------ 1) History of colonic polyp [...] BY MOUTH EVERY ACTIVE EVENING 4) Non-VA RSMCQBJJOHJC36.5/VILANTEROL 25MCG 30D INH 1 ACTIVE PUFF ORAL INHALATION ONCE A DAY 7 Total Medications ALLERGIES: ------ CHANTIX SOCIAL HISTORY: ------ - Tobacco:as in HPI - Alcohol:denies - Illicit Substances:denies FAMILY HISTORY: ------ - No family history of coronary artery disease, heart failure, arrhythmia REVIEW OF SYSTEMS: 12 point ROS negative except mentioned in HPI PHYSICAL EXAMINATION: VITALS: Temperature: 97.7 F [36.5 C] (10/10/2023 13:43) Blood Pressure: 102/68 (10/10/2023 13:43) Pulse: 62 (10/10/2023 13:43) Respirations: 16 (10/10/2023 13:43) GENERAL: NAD, comfortable. HEENT: Moist oral mucosa, anicteric sclera. NECK: Supple, no JVD, normal carotid upstrokes without bruits. RESPIRATORY: CTAB, no wheezing/rhonchi/crackles. CARDIOVASCULAR: regular rhythm, normal S1 and S2, no M/R/G. No JVD. 2+radial and DP pulses. 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 (PFT from August 2022 shows combined moderate obstructive and mild restrictive abnormality which did not improve with inhaled bronchodilator abd impairment of diffusion capacity), also s/o lobectomy -also continues to smoke, however actively trying to quit -he said he is going to get records from his prior hospital visit when he had chest pain, will have to review records -if he had stress test and ECHO done within a year then no further testing is needed, otherwise will need to perform stress testing //Active smoker -at least 50 pack years of smoking history -actively trying to quit -AAA screen negative from 2022 //h/o ischemic CVA //h/o R lung NSCC //COPD Telephoe encounter in 2 months All patients are counseled on the [...] completed, the results will be found in [facility]. # HEALTH PROMOTION/HEALTH MAINTENANCE & EDUCATION [...] as directed by the PCP (primary provider). /loreta/ MARIANO VALDEZ MD RECORDS MANAGEMENT ANALYST Signed: 10/10/2023 14:36 /loreta/ JACOBO TELLO MD,[facility] STAFF SNACK STEWARD Cosigned: 10/10/2023 14:42 10/10/2023 ADDENDUM STATUS: COMPLETED he said he is going to get records from his prior hospital visit when he had chest pain and submit it to his PCP at , will have to review records if he had stress test and ECHO done within a year then no further testing is needed, otherwise will need to perform stress testing /argelia VALDEZ MD RECORDS MANAGEMENT ANALYST Signed: 10/10/2023 14:37 /argelia TELLO MD,[facility] STAFF SNACK STEWARD Cosigned: 10/10/2023 14:43 Receipt Acknowledged By: 10/10/2023 15:58 /argelia [facility] ADULT NURSE PRACTITIONER 10/10/2023 ADDENDUM STATUS: COMPLETED Cardiology Attending Note I saw, interviewed and examined Mr. Ruelas with the Head Tennis Professional, Dr. Mariano Valdez. I have reviewed the pt's clinical data including the ECG's, stress, Cath and Echo (when available) with beverage steward. I have reviewed Dr. Mariano Valdez's note and agree with the history, physical findings and the initial assessment and plan. ELI RUELAS is doing stable from cardiac standpoint. Will review his records before further work up. /argelia TELLO MD,[facility] STAFF SNACK STEWARD Signed: 10/10/2023 14:44 10/10/2023 ADDENDUM STATUS: COMPLETED Ordered EKG to make sure he is not in A fib. /argelia VALDEZ MD RECORDS MANAGEMENT ANALYST Signed: 10/10/2023 14:43 /argelia TELLO MD,[facility] STAFF SNACK STEWARD Cosigned: 10/10/2023 14:44 11/07/2023 ADDENDUM STATUS: COMPLETED Patient had amourax fugax. Also has had prior CVA, is getting carotid US, also will need SWATI to look for causes of cryptogenic stroke and loop recorder. Will change telephome visit to face to face visit to discuss these. /argelia VALDEZ MD RECORDS MANAGEMENT ANALYST Signed: 11/07/2023 12:40 /argelia TELLO MD,[facility] STAFF SNACK STEWARD Cosigned: 11/08/2023 08:29 MARIANO VALDEZ [facility]
--- OUTSIDE RECORDS SUMMARY | 2024-07-30 10:59 | XMS_ITS | Encounter Summary ---
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 [place] Organization [facility] [place] Address [address] [place] [address] Care Team Providers Care Pond Sawyer Name Role Phone JESSICA KAY Primary [...] ACTIV E [place] HIGH Jun 03, 2013 [id number] JOSEPHINE DiamondROSITA SPOUSE MEDICARE (WNR) MEDICARE (M) PART A Jul 04, 2016 PART A [id number] HERMES GRIMMY PATIENT MEDICARE (WNR) MEDICARE (M) PART B Jul 04, 2016 PART B [id number] RICHARDSO N,ELI PATIENT MEDICARE (WNR) MEDICARE (M) PART A Jul 04, 2016 PART A [id number] EMMASO N,ELI PATIENT MEDICARE (WNR) MEDICARE (M) PART B Jul 04, 2016 PART B [id number] EMMASO N,ELI PATIENT MEDICARE (WNR) MEDICARE (M) PART A Jul 04, 2016 PART A [id number] RICHARDSO N,ELI PATIENT MEDICARE (WNR) MEDICARE (M) PART B Jul 04, 2016 PART B [id number] RICHARDSO N,ELI PATIENT MEDICARE (WNR) MEDICARE (M) PART A Jul 04, 2016 PART A [id number] EMMASO N,ELI PATIENT MEDICARE (WNR) MEDICARE (M) PART B Jul 04, 2016 PART B [id number] EMMASO N,ELI PATIENT PRIME THERAPEUTI CS RX PRESCRIPT ION RX PLAN Jun 03, 2013 [id number] [phone] EMMASO N,ELI PATIENT Selected Encounter This section includes the information on record at [place] for the Encounter. 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 Date/Time Primary/Secondary Diagnosis Diagnosis Name Provider Source May 13, 2024 11:34 AM PRIMARY Cerebellar stroke syndrome DAVID ERICKSON [facility] Plan of Treatment: Future Appointments (+ [...] 20, 2024 01:00 PM AMBULATORY - MEDICINE [facility] Jul 31, 2024 10:15 AM AMBULATORY - [facility]INE [facility] Aug 28, 2024 02:00 PM [facility]INE [facility] Aug 28, 2024 02:30 PM AM[facility]ORY - MEDICINE [facility] Lab Results: +/- 30 days of the encounter This section includes the Chemistry and Hematology Lab Results on record with [place] for the patient. Radiology Reports and Pathology Reports are provided separately, in subsequent sections. Lab Results This section contains the Chemistry/Hematology Results that were resulted 30 days before or 30 daysafter the date of the Encounter. Date/Time Source Result Type Result - Unit Interpretation Reference Range Comment May 20, 2024 02:14 PM [facility] URINALYSIS (STL-PB) Specimen Type: URINE No comment entered. Ordering Provider: TOMMY GARCIAA Report Released Date/Time: May 20, 2024 08:32 AM Reporting Lab: [facility] [id number] Performing Lab: [facility] [id number] URINE COLOR Light-Yellow Yellow U.BILIRUBIN Negative mg/dL Negative U.PH 7.0 5.0-8.0 APPEARANCE Clear Clear U.NITRITE Negative mg/dL Negative URN.GLUCOSE Normal mg/dL Negative URN.PROTEIN Negative mg/dL URN.UROBILINOGEN 2 mg/dL H Normal URN.BLOOD Negative mg/dL Negative-Tr jason URN.KETONES Negative mg/dL Negative-Tr jason URN.LEUK.EST. Negative mg/dL Negative-Tr jason URN.SPECIFIC GRAVITY 1.016 May 20, 2024 02:04 PM [facility] COMPREHENSIVE METABOLIC PANEL Specimen Type: PLASMA Comment: No hemolysis noted. Ordering Provider: ANDRES GARCIA Report Released Date/Time: May 20, 2024 08:32 AM Reporting Lab: [facility] [id number] Performing Lab: [facility] [id number] CREATININE 1.06 mg/dL 0.70-1.30 UREA NITROGEN 13.3 [...] 76.92 >60 May 20, 2024 02:04 PM [facility] CBC Specimen Type: BLOOD No comment entered. Ordering Provider: ANDRES GARCIA Report Released Date/Time: May 20, 2024 08:32 AM Reporting Lab: [facility] [phone] Performing Lab: [facility] [id number] WBC 10.1 10*3/uL 3.6-11.2 RBC 4.67 10*6/uL [...] Encounter. Date/Time Encounter Note(s) Provider Source May 25, 2024 09:13 AM ADDENDUM: LOCAL TITLE: Addendum STANDARD TITLE: ADDENDUM DATE OF NOTE: MAY 25, 2024@09:13:24 ENTRY DATE: MAY 25, 2024@09:13:25 AUTHOR: VERNA ERICKSON EXP COSIGNER: URGENCY: STATUS: COMPLETED PATIENT: ELI RUELAS SSN: [id number] : 1955 DATE: 05/23/2024 12:52:26 AM SUMMARY: Alert Transmission Arrhythmia: - AFL/AF episodes noted, longest episode 6 minutes to < 24 hours 3 AF episodes, Longest 31 minutes. Multiple prior AF notifications for AF < 6 hours. Remote programming change made: AF episode alert disabled, AF burden alert enabled and threshold set to 6 hours. Please let us know if you prefer otherwise. [facility] Apprised ON ABIXABAN Please let me know if you would like the AF alert to stay on /loreta/ Verna Erickson,RN,BSN Registered Nurse Signed: 05/25/2024 09:15 Receipt Acknowledged By: 05/25/2024 09:47 /es/ JOSE BARNES MD CLINICAL CARDIAC MAINTENANCE WORKER HOUSE TRAILER --- Original Document --- 05/11/24 CARDIOLOGY DEVICE SURVEILLANCE NOTE STL: SEE VISTA IMAGING FOR FUL PDF PATIENT: ELI RUELAS SSN: [id number] : 1955 DATE: 05/09/2024 6:54:10 AM SUMMARY: Alert Transmission Arrhythmia: - AFL/AF episodes noted, longest episode 6 minutes to < 24 hours 2 Symptom (Patient Activated) Episode(s) without detected episode. Initial remote transmission. Remote programming change made per [facility] protocol. PROPOSED CHANGES WERE SENT IN AN EMAIL TO DR PEDRO LUIS HOLGUIN Apprised AF BURDEN; 1% EPISODES: 05-08-2024 02:30 PM AF 13:27 76 bpm avg. Steady 05-08-2024 01:47 PM AF 22:54 89 bpm avg. Steady 05-07-2024 11:33 AM Symptom - - Steady 05-07-2024 11:32 AM Symptom - - Unsteady 05-06-2024 06:49 PM AF 8:40 94 bpm avg. Steady 05-04-2024 07:26 PM AF 54:00 73 bpm avg. Unsteady 04-24-2024 05:10 PM AF 1:22:41 83 bpm avg. Steady 04-24-2024 03:52 PM AF 1:17:57 84 bpm avg. Steady 04-16-2024 09:22 PM AF 19:25 75 bpm avg. n/a * Ongoing episode, information from time of transmission NOTED : VET IS NOT ON AC. /loreta/ Verna Erickson,RN,BSN Registered Nurse Signed: 05/12/2024 15:12 Receipt Acknowledged By: 05/13/2024 16:29 /loreta/ JOSE BARNES MD CLINICAL CARDIAC MAINTENANCE WORKER HOUSE TRAILER 05/13/2024 ADDENDUM STATUS: COMPLETED PATIENT: ELI RUELAS SSN: [id number] : 1955 DATE: 05/13/2024 12:14:18 AM SUMMARY: Alert Transmission Arrhythmia: - AFL/AF episodes noted, longest episode 6 minutes to < 24 hours 2 AF/AFL episodes, 10 minutes each. [facility] Apprised 05-12-2024 11:10 PM AF 10:25 78 bpm avg. Steady 05-12-2024 10:53 PM AF 10:04 81 bpm avg. Bree /argelia Erickson,RN,BSN Registered Nurse Signed: 05/13/2024 12:11 05/13/2024 ADDENDUM STATUS: COMPLETED Device Interrogation reviewed. Battery is adequate, lead function stable. Arrhythmias are as documented. Will continue device follow up through remote transmissions and/or routine device clinic appointments. All clinically important information has been communicated to the patient by myself, device clinic, the patient's event services manager, or the patient's PCP. AF confirmed, and patient has a history of retinal emboli. Will alert Paul Zimmerman, and PCP Ravinder to start anticoagulation. /loreta/ JOSE BARNES MD CLINICAL CARDIAC MAINTENANCE WORKER HOUSE TRAILER Signed: 05/13/2024 16:28 Receipt Acknowledged By: 05/14/2024 14:12 /loreta/ NORIS STARR MD CIRCULAR SAWYER STONE 05/14/2024 09:23 /argelia [facility] ADULT NURSE PRACTITIONER 05/13/2024 20:48 /argelia MILLER MD,[facility] STAFF LABORATORY TECHNICAL SPECIALIST 05/14/2024 ADDENDUM STATUS: COMPLETED Dr. Miller/José Miguel ======> * PCP will defer to cardiology to initate antcoagulation or a DOAC for pt. /loreta/ WES [facility] ADULT NURSE PRACTITIONER Signed: 05/14/2024 09:24 Receipt Acknowledged By: 05/14/2024 14:11 /argelia STARR MD CIRCULAR SAWYER STONE 05/14/2024 10:26 /loreta/ JACOBO MILLER MD,[facility] STAFF LABORATORY TECHNICAL SPECIALIST 05/14/2024 ADDENDUM STATUS: COMPLETED I agree with Dr. Barnes that anticoagulation is recommended. Will ask PCP to initiate anticoagulation with DOAC such as apixaban 5 mg bid. Thank you! /argelia MILLER MD,[facility] STAFF LABORATORY TECHNICAL SPECIALIST Signed: 05/14/2024 10:29 Receipt Acknowledged By: 05/14/2024 12:52 /argelia [facility] ADULT NURSE PRACTITIONER 05/15/2024 ADDENDUM STATUS: COMPLETED ADDITIONAL ALERT FROM [facility] SURVEILLANCE STATING: Alert Transmission Arrhythmia: - AFL/AF episodes noted, longest episode 6 minutes to < 24 hours Symptom (Patient Activated) Episode(s) without detected episode; AFL. SEE VISTA FOR PDF /es/ VANNESSA TURNERN,RN,CEPS REGISTERED NURSE Signed: 05/15/2024 10:04 Receipt Acknowledged By: 05/15/2024 11:03 /loreta/ JOSE BARNES MD CLINICAL CARDIAC MAINTENANCE WORKER HOUSE TRAILER 05/18/2024 ADDENDUM STATUS: COMPLETED RECEIVED ALERT FROM [facility] SURVEILLANCE STATING: Alert Transmission Arrhythmia: - AFL/AF episodes noted, longest episode 6 minutes to < 24 hours SEE VISTA FOR PDF AF EPISODES MORE C/W AFLUTTER W/ VARIABLE BLOCK AND SOME AF EPISODES ARE SR WITH FREQ APC. /es/ VANNESSA ALCANTAR,RN,CEPS REGISTERED NURSE Signed: 05/18/2024 14:33 Receipt Acknowledged By: 05/18/2024 16:44 /loreta/ JOSE BARNES MD CLINICAL CARDIAC MAINTENANCE WORKER HOUSE TRAILER 05/22/2024 ADDENDUM STATUS: COMPLETED PATIENT: ELI RUELAS SSN: [id number] : 1955 DATE: 05/20/2024 1:13:17 PM SUMMARY: Alert Transmission Arrhythmia: - AFL/AF episodes noted, longest episode 6 minutes to < 24 hours [facility] Apprised SEE VISTA IMAGING (IT IS ON 05/22 BUT LABELED MDT ILR BY ACCIDENT) 05-19-2024 06:57 PM AF 17:56 87 bpm avg. Steady PVC'S . FLUTTER WAVES VS NOISY BASELINE? 05-19-2024 06:41 PM AF 15:12 81 bpm avg. Steady BASELINE DOES APPEAR AFLUTTER /PVC'S ALSO ON APIXABAN /loreta/ Verna EricksonRN,BSN Registered Nurse Signed: 05/22/2024 13:11 Receipt Acknowledged By: 05/22/2024 15:25 /loreta/ JOSE BARNES MD CLINICAL CARDIAC MAINTENANCE WORKER HOUSE TRAILER 05/25/2024 ADDENDUM STATUS: UNSIGNED You may not VIEW this UNSIGNED Addendum. RAMILA ERICKSON [facility] May 22, 2024 01:04 PM ADDENDUM: LOCAL TITLE: Addendum STANDARD TITLE: ADDENDUM DATE OF NOTE: MAY 22, 2024@13:04:26 ENTRY DATE: MAY 22, 2024@13:04:26 AUTHOR: VERNA ERICKSON EXP COSIGNER: URGENCY: STATUS: COMPLETED PATIENT: ELI RUELAS SSN: [id number] : 1955 DATE: 05/20/2024 1:13:17 PM SUMMARY: Alert Transmission Arrhythmia: - AFL/AF episodes noted, longest episode 6 minutes to < 24 hours [facility] Apprised SEE VISTA IMAGING (IT IS ON 05/22 BUT LABELED MDT ILR BY ACCIDENT) 05-19-2024 06:57 PM AF 17:56 87 bpm avg. Steady PVC'S . FLUTTER WAVES VS NOISY BASELINE? 05-19-2024 06:41 PM AF 15:12 81 bpm avg. Steady BASELINE DOES APPEAR AFLUTTER /PVC'S ALSO ON APIXABAN /es/ Verna Erickson,RN,BSN Registered Nurse Signed: 05/22/2024 13:11 Receipt Acknowledged By: 05/22/2024 15:25 /es/ JOSE BARNES MD CLINICAL CARDIAC MAINTENANCE WORKER HOUSE TRAILER --- Original Document --- 05/11/24 CARDIOLOGY DEVICE SURVEILLANCE NOTE STL: SEE VISTA IMAGING FOR FUL PDF PATIENT: ELI RUELAS SSN: [id number] : 1955 DATE: 05/09/2024 6:54:10 AM SUMMARY: Alert Transmission Arrhythmia: - AFL/AF episodes noted, longest episode 6 minutes to < 24 hours 2 Symptom (Patient Activated) Episode(s) without detected episode. Initial remote transmission. [facility] PROPOSED CHANGES WERE SENT IN AN EMAIL TO DR PEDRO LUIS HOLGUIN Apprised AF BURDEN; 1% EPISODES: 05-08-2024 02:30 PM AF 13:27 76 bpm avg. Steady 05-08-2024 01:47 PM AF 22:54 89 bpm avg. Steady 05-07-2024 11:33 AM Symptom - - Steady 05-07-2024 11:32 AM Symptom - - Unsteady 05-06-2024 06:49 PM AF 8:40 94 bpm avg. Steady 05-04-2024 07:26 PM AF 54:00 73 bpm avg. Unsteady 04-24-2024 05:10 PM AF 1:22:41 83 bpm avg. Steady 04-24-2024 03:52 PM AF 1:17:57 84 bpm avg. Steady 04-16-2024 09:22 PM AF 19:25 75 bpm avg. n/a * Ongoing episode, information from time of transmission NOTED : VET IS NOT ON AC. /loreta/ Verna Erickson,RN,BSN Registered Nurse Signed: 05/12/2024 15:12 Receipt Acknowledged By: 05/13/2024 16:29 /loreta/ JOSE BARNES MD CLINICAL CARDIAC MAINTENANCE WORKER HOUSE TRAILER 05/13/2024 ADDENDUM STATUS: COMPLETED PATIENT: ELI RUELAS SSN: [id number] : 1955 DATE: 05/13/2024 12:14:18 AM SUMMARY: Alert Transmission Arrhythmia: - AFL/AF episodes noted, longest episode 6 minutes to < 24 hours 2 AF/AFL episodes, 10 minutes each. [facility] Apprised 05-12-2024 11:10 PM AF 10:25 78 bpm avg. Steady 05-12-2024 10:53 PM AF 10:04 81 bpm avg. SteadY /loreta/ Verna EricksonRN,BSN Registered Nurse Signed: 05/13/2024 12:11 05/13/2024 ADDENDUM STATUS: COMPLETED Device Interrogation reviewed. Battery is adequate, lead function stable. Arrhythmias are as documented. Will continue device follow up through remote transmissions and/or routine device clinic appointments. All clinically important information has been communicated to the patient by myself, device clinic, the patient's event services manager, or the patient's PCP. AF confirmed, and patient has a history of retinal emboli. Will alert Paul Zimmerman, and PCP Ravinder to start anticoagulation. /loreta/ JOSE BARNES MD CLINICAL CARDIAC MAINTENANCE WORKER HOUSE TRAILER Signed: 05/13/2024 16:28 Receipt Acknowledged By: 05/14/2024 14:12 /loreta/ NORIS STARR MD CIRCULAR SAWYER STONE 05/14/2024 09:23 /es/ WES [facility] ADULT NURSE PRACTITIONER 05/13/2024 20:48 /argelia MILLER MD,[facility] STAFF LABORATORY TECHNICAL SPECIALIST 05/14/2024 ADDENDUM STATUS: COMPLETED Dr. Miller/José Miguel ======> * PCP will defer to cardiology to initate antcoagulation or a DOAC for pt. /argelia [facility] ADULT NURSE PRACTITIONER Signed: 05/14/2024 09:24 Receipt Acknowledged By: 05/14/2024 14:11 /loreta/ NORIS STARR MD CIRCULAR SAWYER STONE 05/14/2024 10:26 /loreta/ JACOBO MILLER MD,[facility] STAFF LABORATORY TECHNICAL SPECIALIST 05/14/2024 ADDENDUM STATUS: COMPLETED I agree with Dr. Barnes that anticoagulation is recommended. Will ask PCP to initiate anticoagulation with DOAC such as apixaban 5 mg bid. Thank you! /argelia MILLER MD,[facility] STAFF LABORATORY TECHNICAL SPECIALIST Signed: 05/14/2024 10:29 Receipt Acknowledged By: 05/14/2024 12:52 /argelia [facility] ADULT NURSE PRACTITIONER 05/15/2024 ADDENDUM STATUS: COMPLETED ADDITIONAL ALERT FROM [place] SURVEILLANCE STATING: Alert Transmission Arrhythmia: - AFL/AF episodes noted, longest episode 6 minutes to < 24 hours Symptom (Patient Activated) Episode(s) without detected episode; AFL. SEE VISTA FOR PDF /loreta/ VANNESSA ALCANTAR,RN,CEPS REGISTERED NURSE Signed: 05/15/2024 10:04 Receipt Acknowledged By: 05/15/2024 11:03 /loreta/ JOES BARNES MD CLINICAL CARDIAC MAINTENANCE WORKER HOUSE TRAILER 05/18/2024 ADDENDUM STATUS: COMPLETED RECEIVED ALERT FROM [facility] SURVEILLANCE STATING: Alert Transmission Arrhythmia: - AFL/AF episodes noted, longest episode 6 minutes to < 24 hours SEE VISTA FOR PDF AF EPISODES MORE C/W AFLUTTER W/ VARIABLE BLOCK AND SOME AF EPISODES ARE SR WITH FREQ APC. /argelia ALCANTAR,RN,CEPS REGISTERED NURSE Signed: 05/18/2024 14:33 Receipt Acknowledged By: 05/18/2024 16:44 /argelia BARNES MD CLINICAL CARDIAC MAINTENANCE WORKER HOUSE TRAILER [facility] May 18, 2024 02:29 PM ADDENDUM: LOCAL TITLE: Addendum STANDARD TITLE: ADDENDUM DATE OF NOTE: MAY 18, 2024@14:29:11 ENTRY DATE: MAY 18, 2024@14:29:12 AUTHOR: VANNESSA BRUNO COSIGNER: URGENCY: STATUS: COMPLETED RECEIVED ALERT FROM [place] SURVEILLANCE STATING: Alert Transmission Arrhythmia: - AFL/AF episodes noted, longest episode 6 minutes to < 24 hours SEE VISTA FOR PDF AF EPISODES MORE C/W AFLUTTER W/ VARIABLE BLOCK AND SOME AF EPISODES ARE SR WITH FREQ APC. /es/ VANNESSA BRUNO BSN,RN,CEPS REGISTERED NURSE Signed: 05/18/2024 14:33 Receipt Acknowledged By: 05/18/2024 16:44 /es/ JOSE BARNES MD CLINICAL CARDIAC MAINTENANCE WORKER HOUSE TRAILER --- Original Document --- 05/11/24 CARDIOLOGY DEVICE SURVEILLANCE NOTE STL: SEE VISTA IMAGING FOR FUL PDF PATIENT: ELI RUELAS SSN: [id number] : 1955 DATE: 05/09/2024 6:54:10 AM SUMMARY: Alert Transmission Arrhythmia: - AFL/AF episodes noted, longest episode 6 minutes to < 24 hours 2 Symptom (Patient Activated) Episode(s) without detected episode. Initial remote transmission. [facility] programming [facility] PROPOSED CHANGES WERE SENT IN AN EMAIL TO DR PEDRO LUIS HOLGUIN Apprised AF BURDEN; 1% EPISODES: 05-08-2024 02:30 PM AF 13:27 76 bpm avg. Steady 05-08-2024 01:47 PM AF 22:54 89 bpm avg. Steady 05-07-2024 11:33 AM Symptom - - Steady 05-07-2024 11:32 AM Symptom - - Unsteady 05-06-2024 06:49 PM AF 8:40 94 bpm avg. Steady 05-04-2024 07:26 PM AF 54:00 73 bpm avg. Unsteady 04-24-2024 05:10 PM AF 1:22:41 83 bpm avg. Steady 04-24-2024 03:52 PM AF 1:17:57 84 bpm avg. Steady 04-16-2024 09:22 PM AF 19:25 75 bpm avg. n/a * Ongoing episode, information from time of transmission NOTED : VET IS NOT ON AC. /loreta/ Verna Erickson,RN,BSN Registered Nurse Signed: 05/12/2024 15:12 Receipt Acknowledged By: 05/13/2024 16:29 /loreta/ JOES BARNES MD CLINICAL CARDIAC MAINTENANCE WORKER HOUSE TRAILER 05/13/2024 ADDENDUM STATUS: COMPLETED PATIENT: ELI RUELAS SSN: [id number] : 1955 DATE: 05/13/2024 12:14:18 AM SUMMARY: Alert Transmission Arrhythmia: - AFL/AF episodes noted, longest episode 6 minutes to < 24 hours 2 AF/AFL episodes, 10 minutes each. [facility] Apprised 05-12-2024 11:10 PM AF 10:25 78 bpm avg. Steady 05-12-2024 10:53 PM AF 10:04 81 bpm avg. SteadY /argelia EricksonRN,BSN Registered Nurse Signed: 05/13/2024 12:11 05/13/2024 ADDENDUM STATUS: COMPLETED Device Interrogation reviewed. Battery is adequate, lead function stable. Arrhythmias are as documented. Will continue device follow up through remote transmissions and/or routine device clinic appointments. All clinically important information has been communicated to the patient by myself, device clinic, the patient's event services manager, or the patient's PCP. AF confirmed, and patient has a history of retinal emboli. Will alert Paul Zimmerman, and PCP Ravinder to start anticoagulation. /loreta/ JOSE BARNES MD CLINICAL CARDIAC MAINTENANCE WORKER HOUSE TRAILER Signed: 05/13/2024 16:28 Receipt Acknowledged By: 05/14/2024 14:12 /loreta/ NORIS STARR MD CIRCULAR SAWYER STONE 05/14/2024 09:23 /loreta/ WES [facility] ADULT NURSE PRACTITIONER 05/13/2024 20:48 /argelia MILLER MD,[facility] STAFF LABORATORY TECHNICAL SPECIALIST 05/14/2024 ADDENDUM STATUS: COMPLETED Dr. Miller/José Miguel ======> * PCP will defer to cardiology to initate antcoagulation or a DOAC for pt. /loreta/ WES [facility] ADULT NURSE PRACTITIONER Signed: 05/14/2024 09:24 Receipt Acknowledged By: 05/14/2024 14:11 /loreta/ NORIS STARR MD CIRCULAR SAWYER STONE 05/14/2024 10:26 /loreta/ JACOBO MILLER MD,[facility] STAFF LABORATORY TECHNICAL SPECIALIST 05/14/2024 ADDENDUM STATUS: COMPLETED I agree with Dr. Barnes that anticoagulation is recommended. Will ask PCP to initiate anticoagulation with DOAC such as apixaban 5 mg bid. Thank you! /argelia MILLER MD,[facility] STAFF LABORATORY TECHNICAL SPECIALIST Signed: 05/14/2024 10:29 Receipt Acknowledged By: 05/14/2024 12:52 /loreta/ WES [facility] ADULT NURSE PRACTITIONER 05/15/2024 ADDENDUM STATUS: COMPLETED ADDITIONAL ALERT FROM [place] SURVEILLANCE STATING: Alert Transmission Arrhythmia: - AFL/AF episodes noted, longest episode 6 minutes to < 24 hours Symptom (Patient Activated) Episode(s) without detected episode; AFL. SEE VISTA FOR PDF /loreta/ VANNESSA ALCANTAR,RN,CEPS REGISTERED NURSE Signed: 05/15/2024 10:04 Receipt Acknowledged By: 05/15/2024 11:03 /loreta/ JOSE BARNES MD CLINICAL CARDIAC MAINTENANCE WORKER HOUSE TRAILER VANNESSA BRUNO [facility] May 15, 2024 09:58 AM ADDENDUM: LOCAL TITLE: Addendum STANDARD TITLE: ADDENDUM DATE OF NOTE: MAY 15, 2024@09:58:08 ENTRY DATE: MAY 15, 2024@09:58:09 AUTHOR: VANNESSA BRUNO COSIGNER: URGENCY: STATUS: COMPLETED ADDITIONAL ALERT FROM [place] SURVEILLANCE STATING: Alert Transmission Arrhythmia: - AFL/AF episodes noted, longest episode 6 minutes to < 24 hours Symptom (Patient Activated) Episode(s) without detected episode; AFL. SEE VISTA FOR PDF /loreta/ VANNESSA ALCANTAR,RN,CEPS REGISTERED NURSE Signed: 05/15/2024 10:04 Receipt Acknowledged By: 05/15/2024 11:03 /es/ JOSE BARNES MD CLINICAL CARDIAC MAINTENANCE WORKER HOUSE TRAILER --- Original Document --- 05/11/24 CARDIOLOGY DEVICE SURVEILLANCE NOTE STL: SEE VISTA IMAGING FOR FUL PDF PATIENT: ELI RUELAS SSN: [id number] : 1955 DATE: 05/09/2024 6:54:10 AM SUMMARY: Alert Transmission Arrhythmia: - AFL/AF episodes noted, longest episode 6 minutes to < 24 hours 2 Symptom (Patient Activated) Episode(s) without detected episode. Initial remote transmission. [facility] programming [facility] PROPOSED CHANGES WERE SENT IN AN EMAIL TO DR PEDRO LUIS HOLGUIN Apprised AF BURDEN; 1% EPISODES: 05-08-2024 02:30 PM AF 13:27 76 bpm avg. Steady 05-08-2024 01:47 PM AF 22:54 89 bpm avg. Steady 05-07-2024 11:33 AM Symptom - - Steady 05-07-2024 11:32 AM Symptom - - Unsteady 05-06-2024 06:49 PM AF 8:40 94 bpm avg. Steady 05-04-2024 07:26 PM AF 54:00 73 bpm avg. Unsteady 04-24-2024 05:10 PM AF 1:22:41 83 bpm avg. Steady 04-24-2024 03:52 PM AF 1:17:57 84 bpm avg. Steady 04-16-2024 09:22 PM AF 19:25 75 bpm avg. n/a * Ongoing episode, information from time of transmission NOTED : VET IS NOT ON AC. /es/ Verna EricksonRN,BSN Registered Nurse Signed: 05/12/2024 15:12 Receipt Acknowledged By: 05/13/2024 16:29 /loreta/ JOSE BARNES MD CLINICAL CARDIAC MAINTENANCE WORKER HOUSE TRAILER 05/13/2024 ADDENDUM STATUS: COMPLETED PATIENT: ELI RUELAS SSN: [id number] : 1955 DATE: 05/13/2024 12:14:18 AM SUMMARY: Alert Transmission Arrhythmia: - AFL/AF episodes noted, longest episode 6 minutes to < 24 hours 2 AF/AFL episodes, 10 minutes each. [facility] Apprised 05-12-2024 11:10 PM AF 10:25 78 bpm avg. Steady 05-12-2024 10:53 PM AF 10:04 81 bpm avg. SteadY /loreta/ Verna Erickson,RN,BSN Registered Nurse Signed: 05/13/2024 12:11 05/13/2024 ADDENDUM STATUS: COMPLETED Device Interrogation reviewed. Battery is adequate, lead function stable. Arrhythmias are as documented. Will continue device follow up through remote transmissions and/or routine device clinic appointments. All clinically important information has been communicated to the patient by myself, device clinic, the patient's event services manager, or the patient's PCP. AF confirmed, and patient has a history of retinal emboli. Will alert Paul Zimmerman, and PCP Ravinder to start anticoagulation. /argelia BARNES MD CLINICAL CARDIAC MAINTENANCE WORKER HOUSE TRAILER Signed: 05/13/2024 16:28 Receipt Acknowledged By: 05/14/2024 14:12 /argelia STARR MD [facility] 05/14/2024 09:23 /argelia [facility] ADULT NURSE PRACTITIONER 05/13/2024 20:48 /argelia MILLER MD,[facility] STAFF LABORATORY TECHNICAL SPECIALIST 05/14/2024 ADDENDUM STATUS: COMPLETED Dr. Miller/José Miguel ======> * PCP will defer to cardiology to initate antcoagulation or a DOAC for pt. /argelia [facility] ADULT NURSE PRACTITIONER Signed: 05/14/2024 09:24 Receipt Acknowledged By: 05/14/2024 14:11 /argelia STARR MD [facility] 05/14/2024 10:26 /argelia MILLER MD,[facility] STAFF LABORATORY TECHNICAL SPECIALIST 05/14/2024 ADDENDUM STATUS: COMPLETED I agree with Dr. Barnes that anticoagulation is recommended. Will ask PCP to initiate anticoagulation with DOAC such as apixaban 5 mg bid. Thank you! /argelia MILLER MD,[facility] STAFF LABORATORY TECHNICAL SPECIALIST Signed: 05/14/2024 10:29 Receipt Acknowledged By: 05/14/2024 12:52 /argelia SAXENA [facility] ADULT NURSE PRACTITIONER VANNESSA BRUNO [facility] May 14, 2024 10:26 AM ADDENDUM: LOCAL TITLE: Addendum STANDARD TITLE: ADDENDUM DATE OF NOTE: MAY 14, 2024@10:26:55 ENTRY DATE: MAY 14, 2024@10:26:57 AUTHOR: JACOBO MILLER EXP COSIGNER: URGENCY: STATUS: COMPLETED I agree with Dr. Barnes that anticoagulation is recommended. Will ask PCP to initiate anticoagulation with DOAC such as apixaban 5 mg bid. Thank you! /argelia MILLER MD,[facility] STAFF LABORATORY TECHNICAL SPECIALIST Signed: 05/14/2024 10:29 Receipt Acknowledged By: 05/14/2024 12:52 /argelia SAXENA [facility] ADULT NURSE PRACTITIONER --- Original Document --- 05/11/24 CARDIOLOGY DEVICE SURVEILLANCE NOTE STL: SEE VISTA IMAGING FOR FUL PDF PATIENT: ELI RUELAS SSN: [id number] : 1955 DATE: 05/09/2024 6:54:10 AM SUMMARY: Alert Transmission Arrhythmia: - AFL/AF episodes noted, longest episode 6 minutes to < 24 hours 2 Symptom (Patient Activated) Episode(s) without detected episode. Initial remote transmission. Remote programming change made per [facility] protocol. PROPOSED CHANGES WERE SENT IN AN EMAIL TO DR PEDRO LUIS HOLGUIN Apprised AF BURDEN; 1% EPISODES: 05-08-2024 02:30 PM AF 13:27 76 bpm avg. Steady 05-08-2024 01:47 PM AF 22:54 89 bpm avg. Steady 05-07-2024 11:33 AM Symptom - - Steady 05-07-2024 11:32 AM Symptom - - Unsteady 05-06-2024 06:49 PM AF 8:40 94 bpm avg. Steady 05-04-2024 07:26 PM AF 54:00 73 bpm avg. Unsteady 04-24-2024 05:10 PM AF 1:22:41 83 bpm avg. Steady 04-24-2024 03:52 PM AF 1:17:57 84 bpm avg. Steady 04-16-2024 09:22 PM AF 19:25 75 bpm avg. n/a * Ongoing episode, information from time of transmission NOTED : VET IS NOT ON AC. /loreta/ Verna Erickson RN,BSN Registered Nurse Signed: 05/12/2024 15:12 Receipt Acknowledged By: 05/13/2024 16:29 /loreta/ JOSE BARNES MD CLINICAL CARDIAC MAINTENANCE WORKER HOUSE TRAILER 05/13/2024 ADDENDUM STATUS: COMPLETED PATIENT: ELI RUELAS SSN: [id number] : 1955 DATE: 05/13/2024 12:14:18 AM SUMMARY: Alert Transmission Arrhythmia: - AFL/AF episodes noted, longest episode 6 minutes to < 24 hours 2 AF/AFL episodes, 10 minutes each. [facility] Apprised 05-12-2024 11:10 PM AF 10:25 78 bpm avg. Steady 05-12-2024 10:53 PM AF 10:04 81 bpm avg. SteadY /argelia Erickson RN,BSN Registered Nurse Signed: 05/13/2024 12:11 05/13/2024 ADDENDUM STATUS: COMPLETED Device Interrogation reviewed. Battery is adequate, lead function stable. Arrhythmias are as documented. Will continue device follow up through remote transmissions and/or routine device clinic appointments. All clinically important information has been communicated to the patient by myself, device clinic, the patient's event services manager, or the patient's PCP. AF confirmed, and patient has a history of retinal emboli. Will alert Paul Zimmerman, and PCP Ravinder to start anticoagulation. /loreta/ JOSE BARNES MD CLINICAL CARDIAC MAINTENANCE WORKER HOUSE TRAILER Signed: 05/13/2024 16:28 Receipt Acknowledged By: * AWAITING SIGNATURE * NORIS STARR 05/14/2024 09:23 /loreta/ WES SAXENA [facility] ADULT NURSE PRACTITIONER 05/13/2024 20:48 /argelia MILLER MD,[facility] STAFF LABORATORY TECHNICAL SPECIALIST 05/14/2024 ADDENDUM STATUS: COMPLETED Dr. Llamas ======> * PCP will defer to cardiology to initate antcoagulation or a DOAC for pt. /argelia SAXENA [facility] ADULT NURSE PRACTITIONER Signed: 05/14/2024 09:24 Receipt Acknowledged By: * AWAITING SIGNATURE * NORIS STARR 05/14/2024 10:26 /argelia MILLER MD,[facility] STAFF LABORATORY TECHNICAL SPECIALIST JACOBO MILLER [facility] May 14, 2024 09:23 AM ADDENDUM: LOCAL TITLE: Addendum STANDARD TITLE: ADDENDUM DATE OF NOTE: MAY 14, 2024@09:23:38 ENTRY DATE: MAY 14, 2024@09:23:39 AUTHOR: WES GARCIA COSIGNER: URGENCY: STATUS: COMPLETED Dr. Llamas ======> * PCP will defer to cardiology to initate antcoagulation or a DOAC for pt. /loreta/ WES SAXENA [facility] ADULT NURSE PRACTITIONER Signed: 05/14/2024 09:24 Receipt Acknowledged By: 05/14/2024 14:11 /argelia STARR MD CIRCULAR SAWYER STONE 05/14/2024 10:26 /argelia MILLER MD,[facility] STAFF LABORATORY TECHNICAL SPECIALIST --- Original Document --- 05/11/24 CARDIOLOGY DEVICE SURVEILLANCE NOTE STL: SEE VISTA IMAGING FOR FUL PDF PATIENT: ELI RUELAS SSN: [id number] : 1955 DATE: 05/09/2024 6:54:10 AM SUMMARY: Alert Transmission Arrhythmia: - AFL/AF episodes noted, longest episode 6 minutes to < 24 hours 2 Symptom (Patient Activated) Episode(s) without detected episode. Initial remote transmission. Remote programming change made per [facility] protocol. PROPOSED CHANGES WERE SENT IN AN EMAIL TO DR PEDRO LUIS HOLGUIN Apprised AF BURDEN; 1% EPISODES: 05-08-2024 02:30 PM AF 13:27 76 bpm avg. Steady 05-08-2024 01:47 PM AF 22:54 89 bpm avg. Steady 05-07-2024 11:33 AM Symptom - - Steady 05-07-2024 11:32 AM Symptom - - Unsteady 05-06-2024 06:49 PM AF 8:40 94 bpm avg. Steady 05-04-2024 07:26 PM AF 54:00 73 bpm avg. Unsteady 04-24-2024 05:10 PM AF 1:22:41 83 bpm avg. Steady 04-24-2024 03:52 PM AF 1:17:57 84 bpm avg. Steady 04-16-2024 09:22 PM AF 19:25 75 bpm avg. n/a * Ongoing episode, information from time of transmission NOTED : VET IS NOT ON AC. /es/ Verna Erickson,RN,BSN Registered Nurse Signed: 05/12/2024 15:12 Receipt Acknowledged By: 05/13/2024 16:29 /loreta/ JOSE BARNES MD CLINICAL CARDIAC MAINTENANCE WORKER HOUSE TRAILER 05/13/2024 ADDENDUM STATUS: COMPLETED PATIENT: ELI RUELAS SSN: [id number] : 1955 DATE: 05/13/2024 12:14:18 AM SUMMARY: Alert Transmission Arrhythmia: - AFL/AF episodes noted, longest episode 6 minutes to < 24 hours 2 AF/AFL episodes, 10 minutes each. [facility] Apprised 05-12-2024 11:10 PM AF 10:25 78 bpm avg. Steady 05-12-2024 10:53 PM AF 10:04 81 bpm avg. SteadY /loreta/ Verna Erickson,RN,BSN Registered Nurse Signed: 05/13/2024 12:11 05/13/2024 ADDENDUM STATUS: COMPLETED Device Interrogation reviewed. Battery is adequate, lead function stable. Arrhythmias are as documented. Will continue device follow up through remote transmissions and/or routine device clinic appointments. All clinically important information has been communicated to the patient by myself, device clinic, the patient's event services manager, or the patient's PCP. AF confirmed, and patient has a history of retinal emboli. Will alert Paul Zimmerman, and PCP Ravinder to start anticoagulation. /loreta/ JOSE BARNES MD CLINICAL CARDIAC MAINTENANCE WORKER HOUSE TRAILER Signed: 05/13/2024 16:28 Receipt Acknowledged By: * AWAITING SIGNATURE * NORIS STARR 05/14/2024 09:23 /loreta/ WES SAXENA [facility] ADULT NURSE PRACTITIONER 05/13/2024 20:48 /argelia MILLER MD,[facility] STAFF LABORATORY TECHNICAL SPECIALIST 05/14/2024 ADDENDUM STATUS: COMPLETED I agree with Dr. Barnes that anticoagulation is recommended. Will ask PCP to initiate anticoagulation with DOAC such as apixaban 5 mg bid. Thank you! /argelia MILLER MD,[facility] STAFF LABORATORY TECHNICAL SPECIALIST Signed: 05/14/2024 10:29 Receipt Acknowledged By: 05/14/2024 12:52 /argelia SAXENA [facility] ADULT NURSE PRACTITIONER WES GARCIA [facility] May 13, 2024 04:26 PM ADDENDUM: LOCAL TITLE: Addendum STANDARD TITLE: ADDENDUM DATE OF NOTE: MAY 13, 2024@16:26:05 ENTRY DATE: MAY 13, 2024@16:26:07 AUTHOR: JOSE BARNES EXP COSIGNER: URGENCY: STATUS: COMPLETED Device Interrogation reviewed. Battery is adequate, lead function stable. Arrhythmias are as documented. Will continue device follow up through remote transmissions and/or routine device clinic appointments. All clinically important information has been communicated to the patient by myself, device clinic, the patient's event services manager, or the patient's PCP. AF confirmed, and patient has a history of retinal emboli. Will alert Paul Zimmerman, and PCP Ravinder to start anticoagulation. /loreta/ JOSE BARNES MD CLINICAL CARDIAC MAINTENANCE WORKER HOUSE TRAILER Signed: 05/13/2024 16:28 Receipt Acknowledged By: 05/14/2024 14:12 /loreta/ NORIS STARR MD CIRCULAR SAWYER STONE 05/14/2024 09:23 /es/ WES LOPEZ. [facility] ADULT NURSE PRACTITIONER 05/13/2024 20:48 /es/ JACOBO MILLER MD,[facility] STAFF LABORATORY TECHNICAL SPECIALIST --- Original Document --- 05/11/24 CARDIOLOGY DEVICE SURVEILLANCE NOTE STL: SEE [employer] IMAGING FOR FUL PDF PATIENT: ELI RUELAS SSN: [id number] : 1955 DATE: 05/09/2024 6:54:10 AM SUMMARY: Alert Transmission Arrhythmia: - AFL/AF episodes noted, longest episode 6 minutes to < 24 hours 2 Symptom (Patient Activated) Episode(s) without detected episode. Initial remote transmission. [facility] PROPOSED CHANGES WERE SENT IN AN EMAIL TO DR PEDRO LUIS HOLGUIN Apprised AF BURDEN; 1% EPISODES: 05-08-2024 02:30 PM AF 13:27 76 bpm avg. Steady 05-08-2024 01:47 PM AF 22:54 89 bpm avg. Steady 05-07-2024 11:33 AM Symptom - - Steady 05-07-2024 11:32 AM Symptom - - Unsteady 05-06-2024 06:49 PM AF 8:40 94 bpm avg. Steady 05-04-2024 07:26 PM AF 54:00 73 bpm avg. Unsteady 04-24-2024 05:10 PM AF 1:22:41 83 bpm avg. Steady 04-24-2024 03:52 PM AF 1:17:57 84 bpm avg. Steady 04-16-2024 09:22 PM AF 19:25 75 bpm avg. n/a * Ongoing episode, information from time of transmission NOTED : VET IS NOT ON AC. /loreta/ Verna Erickson,RN,BSN Registered Nurse Signed: 05/12/2024 15:12 Receipt Acknowledged By: 05/13/2024 16:29 /loreta/ JOSE BARNES MD CLINICAL CARDIAC MAINTENANCE WORKER HOUSE TRAILER 05/13/2024 ADDENDUM STATUS: COMPLETED PATIENT: ELI RUELAS SSN: [id number] : 1955 DATE: 05/13/2024 12:14:18 AM SUMMARY: Alert Transmission Arrhythmia: - AFL/AF episodes noted, longest episode 6 minutes to < 24 hours 2 AF/AFL episodes, 10 minutes each. [facility] Appr[facility] 05-12-2024 11:10 PM AF 10:25 78 bpm avg. Steady 05-12-2024 10:53 PM AF 10:04 81 bpm avg. SteadY /loreta/ Verna Erickson,RN,BSN Registered Nurse Signed: 05/13/2024 12:11 05/14/2024 ADDENDUM STATUS: COMPLETED Dr. Miller/José Miguel ======> * PCP will defer to cardiology to initate antcoagulation or a DOAC for pt. /loreta/ WES SAXENA [facility] ADULT NURSE PRACTITIONER Signed: 05/14/2024 09:24 Receipt Acknowledged By: 05/14/2024 14:11 /loreta/ NORIS STARR MD CIRCULAR SAWYER STONE 05/14/2024 10:26 /loreta/ JACOBO MILLER MD,[facility] STAFF LABORATORY TECHNICAL SPECIALIST 05/14/2024 ADDENDUM STATUS: COMPLETED I agree with Dr. Barnes that anticoagulation is recommended. Will ask PCP to initiate anticoagulation with DOAC such as apixaban 5 mg bid. Thank you! /argelia MILLER MD,[facility] STAFF LABORATORY TECHNICAL SPECIALIST Signed: 05/14/2024 10:29 Receipt Acknowledged By: 05/14/2024 12:52 /loreta/ WES SAXENA [facility] ADULT NURSE PRACTITIONER JOSE BARNES [facility] May 11, 2024 03:16 PM INTERVENTIONAL CARDIOLOGY NOTE: LOCAL TITLE: CARDIOLOGY DEVICE SURVEILLANCE NOTE ST STANDARD TITLE: INTERVENTIONAL CARDIOLOGY NOTE DATE OF NOTE: MAY 11, 2024@15:16 ENTRY DATE: MAY 11, 2024@15:17 AUTHOR: VERNA ERICKSON COSIGNER: URGENCY: STATUS: COMPLETED CARDIOLOGY DEVICE SURVEILLANCE NOTE STL Has ADDENDA SEE VISTA IMAGING FOR FUL PDF PATIENT: ELI RUELAS SSN: [id number] : 1955 DATE: 05/09/2024 6:54:10 AM SUMMARY: Alert Transmission Arrhythmia: - AFL/AF episodes noted, longest episode 6 minutes to < 24 hours 2 Symptom (Patient Activated) Episode(s) without detected episode. Initial remote transmission. Remote programming change made per [facility] protocol. PROPOSED CHANGES WERE SENT IN AN EMAIL TO DR PEDRO LUIS HOLGUIN Apprised AF BURDEN; 1% EPISODES: 05-08-2024 02:30 PM AF 13:27 76 bpm avg. Steady 05-08-2024 01:47 PM AF 22:54 89 bpm avg. Steady 05-07-2024 11:33 AM Symptom - - Steady 05-07-2024 11:32 AM Symptom - - Unsteady 05-06-2024 06:49 PM AF 8:40 94 bpm avg. Steady 05-04-2024 07:26 PM AF 54:00 73 bpm avg. Unsteady 04-24-2024 05:10 PM AF 1:22:41 83 bpm avg. Steady 04-24-2024 03:52 PM AF 1:17:57 84 bpm avg. Steady 04-16-2024 09:22 PM AF 19:25 75 bpm avg. n/a * Ongoing episode, information from time of transmission NOTED : VET IS NOT ON AC. /loreta/ Verna Erickson,RN,BSN Registered Nurse Signed: 05/12/2024 15:12 Receipt Acknowledged By: 05/13/2024 16:29 /loreta/ JOSE BARNES MD CLINICAL CARDIAC MAINTENANCE WORKER HOUSE TRAILER 05/13/2024 ADDENDUM STATUS: COMPLETED PATIENT: ELI RUELAS SSN: [id number] : 1955 DATE: 05/13/2024 12:14:18 AM SUMMARY: Alert Transmission Arrhythmia: - AFL/AF episodes noted, longest episode 6 minutes to < 24 hours 2 AF/AFL episodes, 10 minutes each. [facility] Apprised 05-12-2024 11:10 PM AF 10:25 78 bpm avg. Steady 05-12-2024 10:53 PM AF 10:04 81 bpm avg. SteadY /loreta/ Verna Erickson,RN,BSN Registered Nurse Signed: 05/13/2024 12:11 05/13/2024 ADDENDUM STATUS: COMPLETED Device Interrogation reviewed. Battery is adequate, lead function stable. Arrhythmias are as documented. Will continue device follow up through remote transmissions and/or routine device clinic appointments. All clinically important information has been communicated to the patient by myself, device clinic, the patient's event services manager, or the patient's PCP. AF confirmed, and patient has a history of retinal emboli. Will alert Paul Zimmerman, and PCP Ravinder to start anticoagulation. /loreta/ JOSE BARNES MD CLINICAL CARDIAC MAINTENANCE WORKER HOUSE TRAILER Signed: 05/13/2024 16:28 Receipt Acknowledged By: 05/14/2024 14:12 /argelia STARR MD CIRCULAR SAWYER STONE 05/14/2024 09:23 /argelia SAXENA [facility] ADULT NURSE PRACTITIONER 05/13/2024 20:48 /argelia MILLER MD,[facility] STAFF LABORATORY TECHNICAL SPECIALIST 05/14/2024 ADDENDUM STATUS: COMPLETED Dr. Llamas ======> * PCP will defer to cardiology to initate antcoagulation or a DOAC for pt. /argelia SAXENA [facility] ADULT NURSE PRACTITIONER Signed: 05/14/2024 09:24 Receipt Acknowledged By: 05/14/2024 14:11 /argelia STARR MD CIRCULAR SAWYER STONE 05/14/2024 10:26 /argelia MILLER MD,[facility] STAFF LABORATORY TECHNICAL SPECIALIST 05/14/2024 ADDENDUM STATUS: COMPLETED I agree with Dr. Barnes that anticoagulation is recommended. Will ask PCP to initiate anticoagulation with DOAC such as apixaban 5 mg bid. Thank you! /es/ JACOBO MILLER MD,[facility] STAFF LABORATORY TECHNICAL SPECIALIST Signed: 05/14/2024 10:29 Receipt Acknowledged By: 05/14/2024 12:52 /es/ WES SAXENA [facility] ADULT NURSE PRACTITIONER 05/15/2024 ADDENDUM STATUS: COMPLETED ADDITIONAL ALERT FROM [facility] SURVEILLANCE STATING: Alert Transmission Arrhythmia: - AFL/AF episodes noted, longest episode 6 minutes to < 24 hours Symptom (Patient Activated) Episode(s) without detected episode; AFL. SEE VISTA FOR PDF /loreta/ VANNESSA ALCANTAR,RN,CEPS REGISTERED NURSE Signed: 05/15/2024 10:04 Receipt Acknowledged By: 05/15/2024 11:03 /loreta/ JOSE BARNES MD CLINICAL CARDIAC MAINTENANCE WORKER HOUSE TRAILER 05/18/2024 ADDENDUM STATUS: COMPLETED RECEIVED ALERT FROM [facility] SURVEILLANCE STATING: Alert Transmission Arrhythmia: - AFL/AF episodes noted, longest episode 6 minutes to < 24 hours SEE VISTA FOR PDF AF EPISODES MORE C/W AFLUTTER W/ VARIABLE BLOCK AND SOME AF EPISODES ARE SR WITH FREQ APC. /es/ VANNESSA ALCANTAR,RN,CEPS REGISTERED NURSE Signed: 05/18/2024 14:33 Receipt Acknowledged By: 05/18/2024 16:44 /loreta/ JOSE BARNES MD CLINICAL CARDIAC MAINTENANCE WORKER HOUSE TRAILER 05/22/2024 ADDENDUM STATUS: COMPLETED PATIENT: ELI RUELAS SSN: [id number] : 1955 DATE: 05/20/2024 1:13:17 PM SUMMARY: Alert Transmission Arrhythmia: - AFL/AF episodes noted, longest episode 6 minutes to < 24 hours [facility] Apprised SEE VISTA IMAGING (IT IS ON 05/22 BUT LABELED MDT ILR BY ACCIDENT) 05-19-2024 06:57 PM AF 17:56 87 bpm avg. Steady PVC'S . FLUTTER WAVES VS NOISY BASELINE? 05-19-2024 06:41 PM AF 15:12 81 bpm avg. Steady BASELINE DOES APPEAR AFLUTTER /PVC'S ALSO ON APIXABAN /es/ Verna Erickson,RN,BSN Registered Nurse Signed: 05/22/2024 13:11 Receipt Acknowledged By: 05/22/2024 15:25 /es/ JOSE BARNES MD CLINICAL CARDIAC MAINTENANCE WORKER HOUSE TRAILER 05/25/2024 ADDENDUM STATUS: COMPLETED PATIENT: ELI RUELAS SSN: [id number] : 1955 DATE: 05/23/2024 12:52:26 AM SUMMARY: Alert Transmission Arrhythmia: - AFL/AF episodes noted, longest episode 6 minutes to < 24 hours 3 AF episodes, Longest 31 minutes. Multiple prior AF notifications for AF < 6 hours. Remote programming change made: AF episode alert disabled, AF burden alert enabled and threshold set to 6 hours. Please let us know if you prefer otherwise. [facility] Apprised ON ABIXABAN Please let me know if you would like the AF alert to stay on /es/ Verna Erickson,RN,BSN Registered Nurse Signed: 05/25/2024 09:15 Receipt Acknowledged By: 05/25/2024 09:47 /loreta/ JOSE BARNES MD CLINICAL CARDIAC MAINTENANCE WORKER HOUSE TRAILER 05/25/2024 ADDENDUM STATUS: COMPLETED on apixiban, ok for alert to stay off /es/ JOSE BARNES MD CLINICAL CARDIAC MAINTENANCE WORKER HOUSE TRAILER Signed: 05/25/2024 09:48 RAMILA ERICKSON [facility]
--- OUTSIDE RECORDS SUMMARY | 2024-07-30 10:59 | XMS_ITS | Encounter Summary ---
Author Organization [facility] Address [address] [place] [id number] Care Team Providers Care Life Insurance Actuary Name Role Phone Jm Cedillo MD Primary Care Provider [phone]- [phone] Encounter Details Date Type Department Care Team (Late st Contact Info) Description 08/17/2017 Abstract [facility] CONVERSION [address] [place] [address] , Generic MD Rob Social History Tobacco [...] on filedocumented in this encounter Care Teams Life Insurance Actuary Relationship Specialty Start Date End Date Jm Cedillo MD PCP - General INTERNAL MEDICINE 12/23/18 documented as of this encounter
--- OUTSIDE RECORDS SUMMARY | 2024-07-30 10:59 | XMS_ITS | Clinical Summary ---
Author Organization [facility] Address [address] [place] [id number] Care Team Providers Care Psychiatry Physician Name Role Phone Jm Cedillo MD Primary Care Provider [phone]- [phone] Social History Tobacco Use Types Packs/Day Years [...] Health Maintenance Insurance MEDICARE MEDICAID Care Teams Psychiatry Physician Relationship Specialty Start Date End Date Jm Cedillo MD PCP - General INTERNAL MEDICINE 12/23/18
--- OUTSIDE RECORDS SUMMARY | 2024-07-30 10:59 | XMS_ITS | Encounter Summary ---
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 Organization [facility] Address [address] [place] [address] Care Team Providers Care Echo Technologist Name Role Phone JESSICA KAY Primary Care [...] ACTIV E [place] HIGH Jun 03, 2013 [phone] JOSEPHINE DiamondROSITA SPOUSE MEDICARE (WNR) MEDICARE (M) PART A Jul 04, 2016 PART A [id number] HERMES GRIMMY PATIENT MEDICARE (WNR) MEDICARE (M) PART B Jul 04, 2016 PART B [id number] RICHARDSO N,ELI PATIENT MEDICARE (WNR) MEDICARE (M) PART A Jul 04, 2016 PART A [id number] EMMASO N,ELI PATIENT MEDICARE (WNR) MEDICARE (M) PART B Jul 04, 2016 PART B [id number] EMMASO N,ELI PATIENT MEDICARE (WNR) MEDICARE (M) PART A Jul 04, 2016 PART A [id number] EMMASO N,ELI PATIENT MEDICARE (WNR) MEDICARE (M) PART B Jul 04, 2016 PART B [id number] RICHARDSO N,ELI PATIENT MEDICARE (WNR) MEDICARE (M) PART B Jul 04, 2016 PART B [id number] EMMASO N,ELI PATIENT MEDICARE (WNR) MEDICARE (M) PART A Jul 04, 2016 PART A [id number] EMMASO N,ELI PATIENT PRIME THERAPEUTI CS RX PRESCRIPT ION RX PLAN Jun 03, 2013 [id number] [phone] EMMASO N,ELI PATIENT Selected Encounter This section includes the information on record at [place] for the Encounter. Date/Time Encounter Type Encounter Description Reason Provider Source Jan 22, 2024 01:15 PM OFFICE O/P EST SF 10 MIN GI ENDOSCOPY ICD-10-CM K63.5 Polyp of colon ARTUR LEROY IHRedd Encounter Template Text not used by [place] Assessments - Encounter Diagnoses This section includes the primary and secondary diagnoses documented for the Encounter. Date/Time Primary/Secondary Diagnosis Diagnosis Name Provider Source Jan 29, 2024 04:14 PM PRIMARY Polyp of colon ARIANE HORVATH [facility] Plan of Treatment: Future Appointments (+ 6 months) and Future Tests (+/- 45 days) The Plan of Treatment section includes future care activities for the patient from all [place] treatmentfacilities. This section includes future appointments and future orders which are active, pending or scheduled. Future Appointments This section includes appointments that were scheduled to occur 6 months from the date of the Encounter, up to a maximum of 20 appointments. The data comes from all [place] treatment facilities. Appointment Date/Time Appointment Type Appointme nt Facility Name Mar 19, 2024 04:30 PM AMBULATORY - MEDICINE [facility] Apr 08, 2024 02:30 PM AMBULATORY - MEDICINE [facility] Apr 16, 2024 07:30 AM AMBULATORY - MEDICINE [facility] May 20, 2024 01:00 PM AMBULATORY - MEDICINE [facility] Pathology Reports: +/- 30 days of [...] the Encounter. The data comes from all [facility]. Date/Time Pathology Report Provider Source Jan 23, [...] DIAGNOSIS: COLON, TRANSVERSE, POLYP, BIOPSY: HYPERPLASTIC POLYP /loreta/ ARNOLD MTZ Pathologist Signed Jan 23, 2024@16:11 Performing Laboratory: Surgical Pathology Report Performed By: [facility]# [id number] [address] [place] [phone] $FTR - - - - - - - - - - - - - - - - - - - - - - - - - - - - - - - - - - - - - - - - (End of report) ARNOLD MTZ [facility] Date Jan 23, 2024 - - - - - - - - - - - - - - - - - - - - - - - - - - - - - - - - - - - - - - - - ELI RUELAS STANDARD FORM 515 ID:[id number] SEX:M :[id number] AGE: 68 LOC:[id number] PCP: Claudia Campa NP /loreta/ ARNOLD MTZ Pathologist Signed: 01/23/2024 16:11 ARNOLD MTZ [facility] Encounter Notes: All associated encounter notes This section contains the clinical notes associated to the Encounter. Date/Time Encounter Note(s) Provider Source Jan 24, 2024 08:49 AM [facility] LOCAL TITLE: GI BIOPSY RESULTS LETTER STANDARD TITLE: GASTROENTEROLOGY LETTERS DATE OF NOTE: JAN 24, 2024@08:49 ENTRY DATE: JAN 24, 2024@08:49:38 AUTHOR: ARTUR LEROY COSIGNER: URGENCY: STATUS: COMPLETED [address] [address] JAN 24, 2024 ELI RUELAS [address] [place] [address] [place] [id number] Dear Eli Ruelas, Thank you for completing your colonoscopy recently at [facility]. I am writing to give you the pathology results for the tissue removed during the procedure. The tissue removed included: Small (Less that 10 millimeters) hyperplastic polyp(s). Hyperplastic polyps have a very low potential to become cancer. Because they cannot be distinguished by their appearance from other types of polyps, they are often removed or biopsied for tissue analysis. After reviewing your results and your history of polyps previously, I recommend you complete a follow-up colonoscopy in 7 years. If you want to see the full pathology report, you may do this by logging on the [employer] website at [email or web address]. If you have not already done so, I recommend you visit this web site to set up your account. You will then be able to review this result and all future results. Please call [phone] if you have any questions about this letter. Sincerely, Artur Leroy M.D. Public Health Teacher ARTUR LEROY [facility] Jan 22, 2024 01:13 PM PREPROCEDURE NOTE: LOCAL TITLE: PHYSICIAN PRE-PROCEDURE ASSESSMENT ST STANDARD TITLE: PREPROCEDURE NOTE DATE OF NOTE: JAN 22, 2024@13:13 ENTRY DATE: JAN 22, 2024@13:13:38 AUTHOR: ARIANE HORVATH EXP COSIGNER: ARTUR LEROY URGENCY: STATUS: COMPLETED Airway: No significant abnormality Mallampati Score: 2 Neck Extension: Not Limited Teeth: No significant abnormality Cardiac: Other/comment: afib Pulmonary: Other/comment: COPD Gastrointestinal: No significant abnormality Neurological: Other/comment: ischemic stroke ASA Score: 3 Abdominal and Pelvic Surgical History: Sedation/Anesthesia Plan: Anesthesia consult History of previous adverse reaction to sedation: No Tobacco use: Yes Alcohol use: No Recreational drug use: No Last oral intake: Time spent: /loreta/ Ariane Horvath MD GI Fellow Signed: 01/22/2024 14:44 /loreta/ Artur Leroy M.D. Public Health Teacher Cosigned: 01/23/2024 07:06 ARIANE HORVATH [facility]
--- OUTSIDE RECORDS SUMMARY | 2024-07-30 10:59 | XMS_ITS | Encounter Summary ---
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 [facility] [place] Address [address] [place] [address] Care Team Providers Care Rfid Specialist Name Role Phone JESSICA KAY Primary [...] ACTIV E [place] HIGH Jun 03, 2013 [phone] JOSEPHINE DiamondROSITA SPOUSE MEDICARE (WNR) MEDICARE (M) PART B Jul 04, 2016 PART B [id number] [phone] HERMES GRIMMY PATIENT MEDICARE (WNR) MEDICARE (M) PART A Jul 04, 2016 PART A [id number] [phone] HERMES GRIMMY PATIENT MEDICARE (WNR) MEDICARE (M) PART A Jul 04, 2016 PART A [id number] EMMASO N,ELI PATIENT MEDICARE (WNR) MEDICARE (M) PART B Jul 04, 2016 PART B [id number] EMMASO N,ELI PATIENT MEDICARE (WNR) MEDICARE (M) PART A Jul 04, 2016 PART A [id number] RICHARDSO N,ELI PATIENT MEDICARE (WNR) MEDICARE (M) PART B Jul 04, 2016 PART B [id number] RICHARDSO N,ELI PATIENT MEDICARE (WNR) MEDICARE (M) PART A Jul 04, 2016 PART A [id number] EMMASO N,ELI PATIENT MEDICARE (WNR) MEDICARE (M) PART B Jul 04, 2016 PART B [id number] EMMASO N,ELI PATIENT PRIME THERAPEUTI CS RX PRESCRIPT ION RX PLAN Jun 03, 2013 [id number] [phone] EMMASO N,ELI PATIENT Selected Encounter This section includes the information on record at [place] for the Encounter. Date/Time Encounter Type Encounter Description Reason Provider Source Apr 16, 2024 07:30 AM Outpatient Encounter EP LAB ICD-10-CM I63.9 Cerebral infarction, unspecified NASIR BARNES IHRedd Encounter Template Text not used by [place] Assessments - Encounter Diagnoses This section includes the primary and secondary diagnoses documented for the Encounter. Date/Time Primary/Secondary Diagnosis Diagnosis Name Provider Source Apr 21, 2024 08:35 AM PRIMARY Cerebral infarction, unspecified NASIR BARNES [facility] Plan of Treatment: Future Appointments (+ [...] 20, 2024 01:00 PM AMBULATORY - MEDICINE [facility] Jul 31, 2024 10:15 AM [facility] Aug 28, 2024 02:00 PM [facility]INE [facility] Aug 28, 2024 02:30 PM AMBULATORY - MEDICINE [facility] Lab Results: +/- 30 days [...] Range Comment Apr 08, 2024 03:39 PM [facility] MICRAL/CREAT PROFILE (STL) Specimen Type: URINE No comment entered. Ordering Provider: CIERRA GARCIA RADHA Report Released Date/Time: Apr 08, 2024 08:39 AM Reporting Lab: [facility] [facility] [phone] Performing Lab: [facility] [phone] URINE ALBUMIN (PB-STL) 8 mg/L No range refer to micral/crea t ratio uACR (STL) 6 mg/g 0-29 CREATININE URINE/OTHERS 139.8 mg/dL 63.0-166.0 Apr 08, 2024 03:39 PM [facility] URINALYSIS (STL-PB) Specimen Type: URINE No comment entered. Ordering Provider: CIERRA GARCIA RADHA Report Released Date/Time: Apr 08, 2024 08:39 AM Reporting Lab: [facility] [phone] Performing Lab: [facility] [facility] [phone] URINE COLOR Yellow Yellow U.BILIRUBIN Negative mg/dL Negative U.PH 6.5 5.0-8.0 APPEARANCE Clear Clear U.NITRITE Negative mg/dL Negative URN.GLUCOSE Normal mg/dL Negative URN.PROTEIN Negative mg/dL URN.UROBILINOGEN 2 mg/dL H Normal URN.BLOOD Negative mg/dL Negative-Tr jason URN.KETONES Negative mg/dL Negative-Tr jason URN.LEUK.EST. Negative mg/dL Negative-Tr jason URN.SPECIFIC GRAVITY 1.023 Apr 08, 2024 03:32 PM [facility] CBC Specimen Type: BLOOD No comment entered. Ordering Provider: CIERRA GARCIA RADHA Report Released Date/Time: Apr 08, 2024 08:39 AM Reporting Lab: [facility] [phone] Performing Lab: [facility] #[address] [facility] [phone] WBC 9.3 10*3/uL 3.6-11.2 RBC 4.43 10*6/uL [...] 10*3/uL 0.00-0.20 Apr 08, 2024 03:32 PM [facility] HGA1C Specimen Type: BLOOD No comment entered. Ordering Provider: CIERRA GARCIA RADHA Report Released Date/Time: Apr 08, 2024 08:39 AM Reporting Lab: [facility] [phone] Performing Lab: [facility] [facility] [phone] HGA1C 6.3 H 4.0-6.0 Apr 08, 2024 03:32 PM [facility] VITAMIN D, 25-HYDROXY Specimen Type: SERUM No comment entered. Ordering Provider: CIERRA GARCIA RADHA Report Released Date/Time: Apr 08, 2024 08:39 AM Reporting Lab: [facility] [place] [phone] Performing Lab: [facility] [facility] [phone] VITAMIN D, 25-HYDROXY 33.1 ng/mL 30-96 Apr 08, 2024 03:32 PM [facility] TSH (MA-PB) Specimen Type: SERUM No comment entered. Ordering Provider: CIERRA GARCIA RADHA Report Released Date/Time: Apr 08, 2024 08:39 AM Reporting Lab: [facility] [facility] [phone] Performing Lab: [facility] [facility] [phone] TSH 1.120 u[IU]/mL 0.470-5.000 Apr 08, 2024 03:32 PM [facility] LIPID PANEL (STL) Specimen Type: PLASMA Comment: No hemolysis noted. Ordering Provider: CIERRA GARCIA RADHA Report Released Date/Time: Apr 08, 2024 08:39 AM Reporting Lab: [facility] [facility] [phone] Performing Lab: [facility] [facility] [phone] CHOLESTEROL 147 mg/dL 0-200 TRIGLYCERIDE 110 mg/dL 0-150 CALCULATED LDL 90 mg/dL See Interp HDL(New) 35 mg/dL L > 40 Apr 08, 2024 03:32 PM [facility] COMPREHENSIVE METABOLIC PANEL Specimen Type: PLASMA Comment: No hemolysis noted. Ordering Provider: CIERRA GARCIA RADHA Report Released Date/Time: Apr 08, 2024 08:39 AM Reporting Lab: [facility] [facility] [phone] Performing Lab: [facility] [facility] [address] CREATININE 1.07 mg/dL 0.70-1.30 UREA NITROGEN 11.6 [...] the Encounter. The data comes from all [place] treatment facilities. Date/Time Radiology Report Provider Source Apr 08, 2024 03:44 PM KNEE,RIGHT 3 VIEWS : ELI RUELAS [id number] -1955 M Exm Date: APR 08, 2024@15:44 Req Phys: WES GARCIA Pat Loc: [facility] PCP (Req'g Loc) Img Loc: [facility] Service: [facility], [address] [place] [address] (Case [id number] COMPLETE) KNEE,RIGHT 3 VIEWS (RAD Detailed) CPT:20528 Proc Modifiers : RIGHT Reason for Study: Worsening knee pain Clinical History: Worsening knee pain Report Status: Verified Date Reported: APR 09, 2024 Date Verified: APR 09, 2024 Bean Snipper E-Sig:/LORETA/MARIAN AMBROSE MD Report: Case #: [id number]. [...] MARIAN AMBROSE MD, Staff Physician - Radiologist (Bean Snipper) /MARIAN FORBES [facility] Apr 08, 2024 03:44 PM KNEE,LEFT, 3 VIEWS : ELI RUELAS [id number] -1955 M Exm Date: APR 08, 2024@15:44 Req Phys: WES GARCIA Pat Loc: [facility] PCP (Req'g Loc) Img Loc: [facility] Service: [address] [address] (Case [id number] COMPLETE) KNEE,LEFT, 3 VIEWS (RAD Detailed) CPT:57825 Proc Modifiers : LEFT Reason for Study: Worsening knee pain Clinical History: Worsening knee pain Report Status: Verified Date Reported: APR 09, 2024 Date Verified: APR 09, 2024 Bean Snipper E-Sig:/LORETA/MARIAN AMBROSE MD Report: Case #: [id number]. [...] MARIAN AMBROSE MD, Staff Physician - Radiologist (Bean Snipper) /MARIAN FOREBS [facility] Encounter Notes: All associated encounter notes This section contains the clinical notes associated to the Encounter. Date/Time Encounter Note(s) Provider Source Apr 20, 2024 01:57 PM CARDIOLOGY OUTPATIENT NOTE: LOCAL TITLE: CARDIOLOGY OUTPATIENT FOLLOW UP STL STANDARD TITLE: CARDIOLOGY OUTPATIENT NOTE DATE OF NOTE: APR 20, 2024@13:57 ENTRY DATE: APR 20, 2024@13:57:49 AUTHOR: VANNESSA BRUNO EXP COSIGNER: URGENCY: STATUS: COMPLETED THE FOLLOWING TANNER DEVICE WAS IMPLANTED. [facility] SURVEILLANCE UPDATED. Eli Ruelas SSN: [id number] [facility] 5500 Assert-IQ EL+ICM SN:[id number] Implant Date:04/16/2024 /loreta/ VANNESSA BRUNO BSN,RN,CEPS REGISTERED NURSE Signed: 04/20/2024 13:59 VANNESSA BRUNO [facility] Apr 16, 2024 09:13 AM CARDIOLOGY NURSING PREPROCEDURE NOTE: LOCAL TITLE: STATEMENT DISTRIBUTION CLERK PROCEDURE STL STANDARD TITLE: CARDIOLOGY NURSING PREPROCEDURE NOTE DATE OF NOTE: APR 16, 2024@09:13 ENTRY DATE: APR 16, 2024@09:13:54 AUTHOR: NEELAM SHIPMAN EXP COSIGNER: NASIR BARNES URGENCY: STATUS: COMPLETED STATEMENT DISTRIBUTION CLERK PROCEDURE STL Has ADDENDA EP ILR Implant Report 04/16/2024 9:10:24 Financial #: 1 of 4 Patient Name: Eli Ruelas Date of : 1955 Initial MD: Nasir Barnes Study Date: 04/16/2024 Entire Case Report Patient Information Patient Name: Eli Ruelas Date of : 1955 Age: 69 years Financial #: Gender: M Accession #: Hospital Room #: Height (in): Height (cm): BSA: Weight (lbs): Weight (kg): AlternateID: [id number] Lab Number: 3 Study Information Scheduled Start Study Start 04/16/2024 04/16/2024 Stay Type Outpatient Facility Department [facility] Clinical [facility] Initial MD: Nasir Barnes Holding Area: Neelam Shipman Recorder: Alaina Watkins Scrub: Mike Singh Medication Total Dose (Bolus/Oral) Medication Total Dosage/Unit ANCEF (EP) 2 g Medication 04/16/2024 9:10:24 Financial #: 2 of 4 Patient Name: Eli Ruelas Date of : 1955 Initial MD: Nasir Barnes Study Date: 04/16/2024 Medications (Bolus/Oral) Medication Time Given Dosage/Unit Administered By Reason ANCEF (EP) 04/16/2024 7:57:19 2 g Neelam Shipman Verbal order, read back and confirmed 2 g ANCEF (EP) given in holding/recovery area by Neelam Shipman RN in Right Antecubital via Peripheral IV. Ordered by Nasir Barnes MD. Reason: Verbal order, read back and confirmed. Alert Oriented to time-placeperson Moves all extremities Respiration Rate (B/min) 16 Chest Pain 0 Initial Case Assessment Color Lower Right Color Lower Left Normal Normal Cardiovascular Edema Present Skin Color Skin None Normal Warm Dry Circulatory - Lower Extremities Neurological State Respiration - General Time Study Chronological Log 7:55:16 MD notified that patient is in EP lab. 7:55:33 Pre-procedure check performed with: RN, including patient's full name, full social security number, full date of , planned procedure. Information verified by patient. Arm band correct. 7:55:41 Assessment: Initial Case, Chest Pain=0, Edema=None, Color=Normal, Skin = Warm, Dry Lower Right Extremities: Color=Normal Lower Left Extremities: Color=Normal Neurological: State=Alert, Ox3, MCKEON Respiration: Resp=16 B/min 7:56:01 Family Status-In Waiting Area-MD Aware 7:56:07 Site clipped. Chronological Log 04/16/2024 9:10:24 Financial #: 3 of 4 Patient Name: Eli Ruelas Date of : 1955 Initial MD: Nasir Barnes Study Date: 04/16/2024 7:56:09 Jarret Wipes used x2 in prep room from chin to waist anteriorly, concentrating on hands and fingernails. 7:56:11 IV site: #20 PIV placed in right AC. 7:56:27 Allergy list reviewed with patient. 7:56:30 Allergy list: Chantix 7:57:19 2 g ANCEF (EP) given in holding/recovery area by Neelam Shipman RN in Right Antecubital via Peripheral IV. Ordered by Nasir Barnes MD. Reason: Verbal order, read back and confirmed. 8:24:19 Company rep present: Sky greer [employer] 8:38:10 Patient assisted to procedure room and reclined in pink chair 8:39:00 Informed consent obtained on IMED in CPRS by physician. 8:41:25 Time out including patient, procedure & site verification took place with staff, physician and patient prior to start of case. 8:47:57 Time out performed by:Nasir Barnes, Junior So John [facility], Neelam Shipman, KSENIA, Mike Singh [facility]. Everyone in agreement to proceed with procedure. 8:48:46 Procedure site has been marked appropriately and the nessa is visible after prep and drape. 8:48:53 Valid consent form, containing information consistent with paragraph 5.f.(1)a via A Directive 1039(3) 8:49:08 Patient prepped and draped in sterile fashion. 8:49:18 Physician scrubbed in at table. 8:49:21 Time out repeated at this time. All patient information reviewed, all staff present and in agreement to continue with planned procedure. 8:49:28 Case Start 8:49:31 Lidocaine injected at site by physician. 8:51:55 Xopik Insertable Die Engraving Supervisor Device implanted Tanner Assert-IQ EL+ EXP: 07-10-2025 REF: [id number] SN: [id number] 8:52:44 Subcutaneous tissue closed with: 2-0 vicryl 8:55:33 Device performance evaluated by company rep. 8:55:38 Dermabond and Steri-Strips applied to skin. 8:56:14 Sterile coverderm dressing applied to incision. 8:57:17 Case end 9:06:22 See physician note for full report. Patient and his given discharge instructions by EP staff and released. End Study - Patient Disposition Complications No 04/16/2024 9:10:24 Financial #: 4 of 4 Patient Name: Eli Ruelas Date of : 1955 Initial MD: Nasir Barnes Study Date: 04/16/2024 /es/ NEELAM SHIPMAN BSN RN REGISTERED NURSE Signed: 04/16/2024 09:15 /argelia BARNES MD CLINICAL CARDIAC TYPE CASTER Cosigned: 04/16/2024 09:41 04/16/2024 ADDENDUM STATUS: COMPLETED I have reviewed this note and have ordered the medications/treatments as recorded. /loreta/ NASIR BARNES MD CLINICAL CARDIAC TYPE CASTER Signed: 04/16/2024 09:41 [facility] Apr 16, 2024 09:07 AM CARDIOLOGY PROCEDURE NOTE: LOCAL TITLE: CARDIOLOGY PROCEDURE REPORT ST STANDARD TITLE: CARDIOLOGY PROCEDURE NOTE DATE OF NOTE: APR 16, 2024@09:07 ENTRY DATE: APR 16, 2024@09:07:13 AUTHOR: NASIR BARNES EXP COSIGNER: URGENCY: STATUS: COMPLETED [facility] Program for Clinical Assessment, Reporting, and Tracking CARDIAC IMPLANTABLE ELECTRONIC DEVICE REPORT Patient: ELI RUELAS SSN: [id number] : 1955 AGE: 69 Procedure Date: 04/16/2024 Procedure Status: Elective outpatient procedure Attending: NASIR BARNES PROCEDURE INDICATIONS Specific Conditions/Syndromes: Atrial Fibrillation ILR Indications: Suspected AF (including cryptogenic stroke) Monitoring of known AF PROCEDURES PERFORMED New Implants: ILR TIME-OUT A time-out was performed addressing all safety requirements relevant to the procedure. Type of procedure, site, and patient ID were verified with the patient. The attending has assessed or re-assessed the patient and there are no changes to the pre-procedure assessment. PROCEDURE DETAILS Informed consent was obtained. Prophylactic IV antibiotics were given. The patient was brought to the Cardiac Electrophysiology Laboratory and was sterilely prepped and draped in the usual fashion for loop recorder implantation. The 4th intercostal space was located, and the site was marked for proper ILR positioning. The left parasternal area was then locally anesthetized with 1% lidocaine (with epinephrine). A small incision was made in the left parasternal region at the level of the 4th intercostal space. The device was deployed into the deep subcutaneous tissue. The device was interrogated and found to have adequate sensing. Diagnostic parameters were programmed. The subcuticular layer was closed with interrupted absorbable stitches and was sealed with Dermabond and covered with steristrips. The patient left the lab in good condition. There were no complications. The R wave was 0.4 mV. The following doctor performed implantable loop recorder implantation and was present and personally involved in the entire operative procedure: Nasir Barnes M.D. DEVICE DETAILS Tanner ILR See nursing procedure notes IN-LAB MEDICATIONS Summary Data: Estimated Blood Loss: 1 mL PERIPROCEDURAL COMPLICATIONS No Major Adverse Events or Complications The attending was present throughout the procedure. PROCEDURE SUMMARY -ILR implantation RECOMMENDATIONS -Keep wound dry x48 hours, then showers okay but no baths pools or scrubbing incision -Okay to remove dressing tomorrow. Keep Steri-Strips in place. PROCEDURE CODING Coding Procedure 22820 ILR 657 [facility]-CIED:[id number] 04/16/2024 /loreta/ NASIR BARNES MD CLINICAL CARDIAC TYPE CASTER Signed: 04/16/2024 09:09 NASIR BARNES [facility] Apr 16, 2024 08:38 AM CARDIOLOGY PREPROCEDURE NOTE: LOCAL TITLE: CARDIOLOGY PRE-PROCEDURAL NOTE STL STANDARD TITLE: CARDIOLOGY PREPROCEDURE NOTE DATE OF NOTE: APR 16, 2024@08:38 ENTRY DATE: APR 16, 2024@08:38:28 AUTHOR: NASIR BARNES EXP COSIGNER: URGENCY: STATUS: COMPLETED [place] CART Program for Clinical Assessment, Reporting, and Tracking CARDIAC IMPLANTABLE ELECTRONIC DEVICE PRE-PROCEDURE ASSESSMENT REPORT Patient: ELI RUELAS SSN: [id number] : 1955 AGE: 69 Assessment for elective CARDIAC IMPLANTABLE ELECTRONIC DEVICE procedure Assessed by: NASIR BARNES Date: 04/16/2024 Attending: NASIR BARNES PRESENTATION ILR Indications: Suspected AF (including cryptogenic stroke) Other Symptoms, Syndromes, Indications or Conditions for Procedure cryptogenic stroke CARDIAC RISK FACTORS Dyslipidemia Current tobacco use COMORBID CONDITIONS Lung Disease Renal Disease REVIEW OF SYSTEMS PHYSICAL EXAM Vital Value Unit Date/Time BP 137/ 83 mmHG 2024-04-08 14:39 HR 62 bpm 2024-04-08 14:39 Height 75 inches 2022-08-10 12:05 Weight 270 lbs 2024-04-08 14:39 BSA 2.4 m^2 2024-04-08 14:39 LABS Lab Value Date/Time Alert ------- Creatinine 1.07 2024-04-08 15:32 Potassium 4.2 2024-04-08 15:32 Hematocrit 44.4 2024-04-08 15:32:03 Platelets 217 2024-04-08 15:32:03 Cholesterol total 147 2024-04-08 15:32 LDL (calculated) 90 2024-04-08 15:32 HDL Cholesterol 35 2024-04-08 15:32 low Triglycerides 110 2024-04-08 15:32 ------- INPATIENT MEDICATIONS in CEFAZOLIN 2G/100ML ISO-OSMOTIC 100 ML expires: 04/16/2024 IVPB ACCOUNT SERVICES REPRESENTATIVE INFUSE OVER 30 Minutes Deliver to Cardiac EP lab at 0630 on 04/16 Indication: FOR SURGICAL PROPHYLAXIS OUTPATIENT MEDICATIONS METHOCARBAMOL 500MG TAB Qty: 90 for 30 days expires: 04/09/2025; last filled: 04/09/2024; active Sig: TAKE 1 TABLET BY MOUTH THREE TIMES A DAY NEEDED FOR MUSCLE SPASM Indication: FOR MUSCLE SPASM ALBUTEROL 90MCG (CFC-F) 200D ORAL INHL Qty: 3 for 90 days expires: 04/09/2025; last filled: 04/09/2024; active Sig: INHALE 2 PUFFS ORAL INHALATION FOUR TIMES A DAY SHAKE WELL. RINSE MOUTHPIECE FREQUENTLY TO PREVENT CLOGGING. *BUPROPION HCL 150MG 12HR SA TAB Qty: 177 for 90 days expires: 09/10/2024; last filled: 09/11/2023; active Sig: TAKE ONE TABLET BY MOUTH ONCE A DAY FOR 3 DAYS, THEN TAKE ONE TABLET TWICE A DAY FOR SMOKING CESSATION. SWALLOW WHOLE - DO NOT CRUSH OR Non-VA LISINOPRIL 40MG TAB 20MG BY MOUTH ONCE A DAY Non-VA CLOPIDOGREL BISULFATE 75MG TAB 75MG BY MOUTH ONCE A DAY Non-VA RZINAVTXAFKH40.5/[id number] CG 30D INH 1 PUFF ORAL INHALATION ONCE A DAY Non-VA ROSUVASTATIN CA 40MG TAB 20MG BY MOUTH EVERY EVENING MEDICATION REVIEW AND RECONCILIATION Medications (prescriptions and over the counter) reviewed with the patient and reconciled in the medical record. ALLERGIES/ADVERSE REACTIONS Varenicline [chantix] SEDATION/CONSENT CodeStatus: Full Code Anesthesia: consult not needed No planned sedation NPO for procedure was explained to patient/surrogate. NPO since: midnight The risks, benefits, and alternatives of the procedure and sedation/analgesia were explained to and discussed with the patient/surrogate in detail. All questions have been answered and the patient/surrogate understands the potential risks and benefits and consents to the procedure and the plan for sedation. No anesthesia, ASA/Mallapati not applicable PROCEDURE PLAN CIED New Implants: ILR SUMMARY 657 CART-CIED:[id number] ED01 04/16/2024 /loreta/ NASIR BARNES MD CLINICAL CARDIAC TYPE CASTER Signed: 04/16/2024 08:38 NASIR BARNSE [facility]
--- OUTSIDE RECORDS SUMMARY | 2024-07-30 10:59 | XMS_ITS ---
Author Name [facility] Organization [facility] Address [address] [place] [address] Care Team Providers Care Soaking Room Operator Name Role Phone JESSICA KAY Primary [...] ACTIV E IL HIGH Jun 03, 2013 [phone] JOSEPHINE DiamondROSITA SPOUSE MEDICARE (WNR) MEDICARE (M) PART B Jul 04, 2016 PART B [id number] JOSEPHINE DiamondELI PATIENT MEDICARE (WNR) MEDICARE (M) PART A Jul 04, 2016 PART A [id number] RICHARDSO N,ELI PATIENT MEDICARE (WNR) MEDICARE (M) PART A Jul 04, 2016 PART A [id number] RICHARDSO N,ELI PATIENT MEDICARE (WNR) MEDICARE (M) PART B Jul 04, 2016 PART B [id number] EMMASO N,ELI PATIENT MEDICARE (WNR) MEDICARE (M) PART B Jul 04, 2016 PART B [id number] [phone] RICHARDSO N,ELI PATIENT MEDICARE (WNR) MEDICARE (M) PART A Jul 04, 2016 PART A [id number] RICHARDSO N,ELI PATIENT MEDICARE (WNR) MEDICARE (M) PART A Jul 04, 2016 PART A [id number] EMMASO N,ELI PATIENT MEDICARE (WNR) MEDICARE (M) PART B Jul 04, 2016 PART B [id number] [phone] EMMASO N,ELI PATIENT PRIME THERAPEUTI CS RX PRESCRIPT ION RX PLAN Jun 03, 2013 [id number] [phone] EMMASO N,ELI PATIENT Selected Encounter This section includes the information on record at [place] for the Encounter. Date/Time Encounter Type Encounter Description Reason Provider Source Jan 22, 2024 02:12 PM Outpatient Encounter ADMIN PAT ACTIVTIES (MASNONCT) EVELYN FONTAINE Redd Encounter Template Text not used by [place] Plan of Treatment: Future Appointments (+ 6 [...] 19, 2024 04:30 PM AMBULATORY - MEDICINE [facility] Apr 08, 2024 02:30 PM AMBULATORY - MEDICINE [facility] Apr 16, 2024 07:30 AM AMBULATORY - MEDICINE [facility] May 20, 2024 01:00 PM AMBULATORY - MEDICINE [facility] Pathology Reports: +/- 30 days of [...] the Encounter. The data comes from all [facility] facilities. Date/Time Pathology Report Provider Source Jan 23, [...] Performing Laboratory: Surgical Pathology Report Performed By: [facility] [address] [place] [address]# [id number] [address] [facility] [address] [place] [address] $FTR - - - - - - - - - - - - - - - - - - - - - - - - - - - - - - - - - - - - - - - - (End of report) ARNOLD MTZ MD [facility] Date Jan 23, 2024 - - - - - - - - - - - - - - - - - - - - - - - - - - - - - - - - - - - - - - - - ELI RUELAS STANDARD FORM 515 ID:[id number] SEX:M :1955 AGE: 68 LOC:[id number] PCP: Claudia Campa NP /loreta/ ARNOLD MTZ Pathologist Signed: 01/23/2024 16:11 ARNOLD MTZ [facility] Encounter Notes: All associated encounter notes This section contains the clinical notes associated to the Encounter. Date/Time Encounter Note(s) Provider Source Jan 22, 2024 02:12 PM ANESTHESIOLOGY JIMMIE WSHEET: LOCAL TITLE: ANES INTRA-OP FLOWSHEET STL STANDARD TITLE: ANESTHESIOLOGY FLOWSHEET DATE OF NOTE: JAN 22, 2024@14:12 ENTRY DATE: JAN 22, 2024@14:12:55 AUTHOR: EVELYN FONTAINE EXP COSIGNER: URGENCY: STATUS: COMPLETED Patient: ELI RUELAS SSN: [id number] Date of Operation: 01/22/2024 Surgery Start Time: Surgery End Time: Anesthesia Care Start: 01/22/2024 13:18 Anesthesia Care End: 01/22/2024 14:11 Anesthesia Method: Monitored 01/22/2024 13:29 (Primary), Level Of Consciousness: Sedated, Monitors Applied, Oxygen Therapy: Mask, EtCO2 Verified: Waveform Positioning: Head Neutral, Head And Neck In Alignment With Spine, Pressure Points Padded & Checked, Eyes, Ears And Nose Free Of Pressure ASA Number: 3 Procedure: Colonoscopy Diagnosis: Screening Holding, Anesthesia, PACU Drugs: ------- Lidocaine: 100 mg Propofol: 140 mg Propofol gtt: 527.168 mg Phenylephrine: 100 mcg Holding, Anesthesia, PACU Fluids: -------- Normal Saline: 500 ml Resources: Headrest - Pillow Staff: --------- TAMIKO TOVAR ANES. SUPER. BARNI, ANITA K, PRIN. ANES. Anesthesia Procedure: --- Procedure 01/22/2024 13:18 In Situ, Line Number: 1, Site: Arm, Laterality: Right, Catheter Type: Angio, Catheter Size: 20 Ga Securement: Taped, Sterile Occlusive Dressing Procedure Date: 01/22/2024 Procedure Start Time: 01/22/2024 13:29 Procedure End Time: 01/22/2024 14:07 /loreta/ EVELYN FONTAINE MS LANGUAGE SPECIALIST Signed: 01/22/2024 14:12 EVELYN FONTAINE [facility]
--- OUTSIDE RECORDS SUMMARY | 2024-07-30 10:59 | XMS_ITS | Continuity of Care Document ---
Author Name [facility] Organization [facility] Care Team Providers Care Wellness Manager Name Role Phone [facility] Unavailable Unavailable Problems Combined list of problems from 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 It does not include entries that were removed or entered in error. Problem Status Onset Date Problem Type Date of Resolution Comments Source Osteoarthritis of hip Active 017 Condition Aug 09, 2016 Entered By: KISHORE AGUAYO Comment: moderate severity primary osteoarthritis of left hip, notes dated 07/12/[address] Kolb [facility] Anxiety Active Condition [facility] Asthma Active Condition [facility] Asthma (SNOMED CT 946135307) Active Condition [facility] Chronic kidney disease stage 3A Active Condition [facility] Chronic obstructive lung disease Active Condition [facility] CVA - Cerebrovascular accident Active Condition [facility] Daily headache Active Condition [facility] Deficiency of vitamin D3 Active Condition [facility] Dyspnea Active Condition [facility] Erectile dysfunction Active Condition [facility] Essential hypertension Active Condition [facility] Hepatitis C Active Condition [facility] Hepatitis C Active Condition Mar 09, 2019 Entered By: GEE HATFIELD Comment: in remission [facility] Histoplasmosis Active Condition Jul 052016 Entered By: KISHORE AGUAYO Comment: Hx. of left lower lobe wedge rescetions in the mid per notes from Dr. Mio Palencia [facility] History of cerebrovascular accident Active Condition [facility] History of colonic polyp Active Condition [facility] History of polyp of colon Active Condition [facility] History of right hip replacement Active Condition [facility] H[facility] - Hyperlipidaemia Active Condition [facility] Hyperlipidemia Active Condition [facility] Hypertensive heart AND chronic kidney disease stage 3 Active Condition [facility] Knee pain (SNOMED CT 00637360) Active Condition [facility] Lung cancer Active Condition Apr 05, 2021 Entered By: WES GARCIA Comment: RLL - Lobectomy - August 2020 [facility] Multiple pulmonary nodules Active Condition [facility] Nicotine dependence Active Condition [facility] Osteoarthritis of joint of left shoulder region Active Condition [facility] PAF - Paroxysmal atrial fibrillation Active Condition [facility] Pain in right hip joint Active Condition Aug 09, 2016 Entered By: KISHORE AGUAYO Comment: 04/04/2016- right toal hip arthroplasty by Dr. Irwin Kolb [facility] Pain of left shoulder joint Active Condition [facility] Periventricular hemorrhagic venous infarct Active Condition [facility] periventricular infarction Active Condition [facility] Peyronie's disease Active Condition [facility] Prediabetes Active Condition [facility] Shoulder pain Active Condition [facility] Tobacco dependence, continuous Active Condition [facility] Tobacco use Active Condition [facility] Vitamin D deficiency Active Condition [facility] Benign essential hypertension Inactive Condition 04/05/2021 [facility] Diagnosis: ICD-10-CM Z51.81 Encounter for therapeutic drug level monitoring Active Diagnosis [facility] Diagnosis: ICD-10-CM G46.4 Cerebellar stroke syndrome Active Diagnosis [facility] Diagnosis: ICD-10-CM I48.0 Paroxysmal atrial fibrillation Active Diagnosis [facility] Diagnosis: ICD-10-CM I48.91 Unspecified atrial fibrillation Active Diagnosis [facility] Diagnosis: ICD-10-CM I63.9 Cerebral infarction, unspecified Active Diagnosis [facility] Diagnosis: ICD-10-CM J44.9 Chronic obstructive pulmonary disease, unspecified Active Diagnosis [facility] Diagnosis: ICD-10-CM K63.5 Polyp of colon Active Diagnosis [facility] Diagnosis: ICD-10-CM Z01.818 Encounter for other preprocedural examination Active Diagnosis [facility] Diagnosis: ICD-10-CM 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 Medication Details Route Status Patient Instructions Prescription Expires Prescription Number Last Dispense Date Ordering Provider Order Date Order Qty Source ALBUTEROL SO4 90MCG/ACTUA T (CFC-F) INHL,ORAL,8 .5GM INHALE 2 PUFFS ORAL INHALATI ON FOUR TIMES A DAY SHAKE WELL. RINSE MOUTHPIE CE FREQUENT LY TO PREVENT CLOGGING . RESPIR ATORY (INHAL ATION) ACTIVE 04/09/2025 [id number] WES GARCIA 2023 3 [facility] ALBUTEROL SO4 90MCG/ACTUA T (CFC-F) INHL,ORAL,8 .5GM INHALE 2 PUFFS ORAL INHALATI ON FOUR TIMES A DAY SHAKE WELL. RINSE MOUTHPIE CE FREQUENT LY TO PREVENT CLOGGING . RESPIR ATORY (INHAL ATION) DISCONT INUED 09/18/2024 [id number] MCQUAIDE, WES 2023 3 [facility] APIXABAN 5MG TAB TAKE ONE TABLET BY MOUTH TWICE A DAY FOR ANTICOAG ULATION ORAL ACTIVE 05/21/2025 [id number] MCQUAIDE, WES 2023 60 [facility] ASPIRIN 81MG TAB,EC TAKE ONE TABLET BY MOUTH ONCE A DAY ORAL ACTIVE BOGOMERSA RAH M 2024 [facility] BISACODYL 5MG TAB,EC TAKE TWO TABLETS BY MOUTH ONE TIME TAKE BISACODY L TABLETS AT 4PM ON AFTERNOO N PRIOR TO TEST. CALL WITH ANY QUESTION S ABOUT THESE INSTRUCT IONS. MAIL TAKE BISACODY L TABLETS AT 4PM ON AFTERNOO N PRIOR TO TEST. CALL WITH ANY QUESTION S ABOUT THESE INSTRUCT IONS. MAIL ORAL 12/05/2023 [id number] 4 SHARON BRANDT 2023 2 [facility] BUPROPION HCL 150MG 12HR TAB,SA TAKE ONE TABLET BY MOUTH TWICE A DAY FOR SMOKING CESSATIO N. SWALLOW WHOLE - DO NOT CRUSH OR CHEW. ORAL ACTIVE 09/10/2024 [id number] 4 AMI SUTHERLAND A 2023 180 [facility] BUPROPION HCL 150MG 12HR TAB,SA TAKE ONE TABLET BY MOUTH ONCE A DAY FOR 3 DAYS, THEN TAKE ONE TABLET TWICE A DAY FOR SMOKING CESSATIO N. SWALLOW WHOLE - DO NOT CRUSH OR CHEW. ORAL DISCONT INUED 09/10/2024 [id number] AIM SUTHERLAND A 2023 177 [facility] CLOPIDOGREL BISULFATE 75MG TAB TAKE ONE TABLET BY MOUTH DAILY ORAL ACTIVE Zoraida AGUAYO 2016 [facility] HYDROCODONE 7.5MG/ACETA MINOPHEN 325MG TAB TAKE ONE TABLET BY MOUTH EVERY 4 HOURS NEEDED ORAL ACTIVE OLIVIERZoraida BAL 2016 [facility] HYDROXYZINE HCL 10MG *HI-ALERT* TAB TAKE 25MG BY MOUTH THREE TIMES A DAY NEEDED ORAL ACTIVE OLIVIERZoraida TIM L 2016 [facility] LISINOPRIL 20MG TAB TAKE ONE-HALF TABLET BY MOUTH DAILY ORAL ACTIVE Zoraida AGUAYO 2016 [facility] LISINOPRIL 40MG TAB TAKE ONE-HALF TABLET BY MOUTH ONCE A DAY ORAL ACTIVE Ramiro HATFIELD 2018 [facility] METHOCARBAM OL 500MG TAB TAKE 1 TABLET BY MOUTH THREE TIMES A DAY NEEDED FOR MUSCLE SPASM ORAL ACTIVE 04/09/2025 [id number] MCQUAIDRedd WES 2023 90 [facility] METHOCARBAM OL 500MG TAB TAKE 1 TABLET BY MOUTH THREE TIMES A DAY NEEDED [facility] 09/18/2024 [id number] 4 MCQUAIDE WES 2023 90 [facility] METHOCARBAM OL 500MG TAB TAKE 1 TABLET BY MOUTH THREE TIMES A DAY NEEDED FOR MUSCLE SPASM ORAL [facility]CONT [facility] 02/16/2024 [id number] MCQUAIDE, WES 2022 90 [facility] METOPROLOL SUCCINATE 50MG TAB,SA TAKE ONE-HALF TABLET BY MOUTH ONCE A DAY ORAL ACTIVE SA RUMA VIZCARRA 2024 [facility] PEG-3350/EL ECTROLYTES PWDR MIX AND DRINK CONTENTS OF BOTTLE BY MOUTH DIRECTED (THE DAY BEFORE YOUR TEST ONLY DRINK CLEAR LIQUIDS- NO SOLID FOOD! TAKE THE BISACODY L TABLETS AT 4PM AND MIX THE GOLYTELY WITH WATER AND REFRIGER ATE. AT 7PM DRINK HALF OF THE GOLYTELY . REFRIGER ATE OVERNIGH T. COMPLETE GOLYTELY 3 HRS BEFORE LEAVING HOME FOR TEST. READ YOUR INSTRUCT IONS!) (THE DAY BEFORE YOUR TEST ONLY DRINK CLEAR LIQUIDS- NO SOLID FOOD! TAKE THE BISACODY L TABLETS AT 4PM AND MIX THE GOLYTELY WITH WATER AND REFRIGER ATE. AT 7PM DRINK HALF OF THE GOLYTELY . REFRIGER ATE OVERNIGH T. COMPLETE GOLYTELY 3 HRS BEFORE LEAVING HOME FOR TEST. READ YOUR INSTRUCT IONS!) ORAL 12/05/2023 [id number] SHARON BRANDT 2023 1 [facility] ROSUVASTATI N CA 40MG TAB TAKE ONE-HALF TABLET BY MOUTH EVERY EVENING ORAL ACTIVE [facility] HELLE L 2020 [facility] SIMETHICONE 80MG TAB,CHEW CHEW AND SWALLOW FOUR TABLETS BY MOUTH DIRECTED FOR TWO DOSES BEFORE GI PROCEDUR E ORAL 12/05/2023 [id number] 4 SHARON BRANDT 2023 8 [facility] UMECLIDINIU M 62.5MCG/SOHEILA ANTEROL 25MCG/ACTUA T INH,ORAL,30 D INHALE 1 PUFF ORAL INHALATI ON ONCE A DAY RESPIR ATORY (INHAL ATION) ACTIVE [facility] HELLE L 2020 [facility] Allergies, Adverse Reactions, Alerts Combined list of allergies from 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 It does not include entries that were removed or entered in error. Substance Category Reaction Severity Reaction type Status Date Reported Comments Source CHANTIX Propensity to adverse reactions to drug (finding) Nightmares active 0 [facility] Immunizations Combined list of available immunizations from the 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 Comments Source INFLUENZA, HIGH-DOSE, TRIVALENT, PF 2023 OVERTURF,BRIGITTE E A RIGHT DELTO ID [id number] A 135 complet ed [facility] COVID-19 (LearnSprout), MRNA, LNP-S, PF, AGUILAR-SUCROSE, 30 MCG/0.3 ML (AGES 12+ YEARS) 2023 309 complet ed [facility] COVID-19 ([employer]), MRNA, LNP-S, PF, AGUILAR-SUCROSE, 30 MCG/0.3 ML (AGES 12+ YEARS) 1 2022 309 complet ed [facility] INFLUENZA, UNSPECIFIED FORMULATION 2022 88 complet ed [facility] INFLUENZA, UNSPECIFIED FORMULATION [address] [facility] COVID-19, MRNA, LNP-S, BIVALENT BOOSTER, PF, 30 MCG/0.3 ML DOSE 1 2021 300 complet ed PFR; [id number]; 3 [facility] COVID-19 (LearnSpr[employer]), MRNA, LNP-S, PF, 30 MCG/0.3 ML DOSE, AGUILAR-SUCROSE (AGES 12+ YEARS) 4 2021 217 complet ed [facility] ZOSTER RECOMBINANT 2 2021 187 complet [facility] COVID-19 (Learn[employer]), MRNA, LNP-S, PF, 30 MCG/0.3 ML DOSE 3 2020 208 complet ed PFR; [id number]; 2 [facility] INFLUENZA, INJECTABLE, QUADRIVALENT, PRESERVATIVE FREE 2020 150 complet ed [facility] ZOSTER RECOMBINANT 1 2020 187 complet [facility] COVID-19 ([employer]), MRNA, LNP-S, PF, 30 MCG/0.3 ML DOSE 2 2020 208 complet ed [facility] COVID-19 ([employer]), MRNA, LNP-S, PF, 30 MCG/0.3 ML DOSE 1 2020 208 complet ed [facility] INFLUENZA, UNSPECIFIED FORMULATION 2019 88 complet ed [facility] INFLUENZA, UNSPECIFIED FORMULATION 2018 88 complet ed [facility] INFLUENZA, SEASONAL, INJECTABLE, PRESERVATIVE FREE 2015 140 complet ed [facility] INFLUENZA, UNSPECIFIED FORMULATION 2014 88 complet ed [facility] PNEUMOCOCCAL CONJUGATE PCV 13 2014 133 complet ed notes dated 07/25/[address] Mio Palencia [facility] PNEUMOCOCCAL CONJUGATE PCV 13 2014 133 complet ed [facility] PNEUMOCOCCAL POLYSACCHARID E PPV23 2013 33 complet ed [facility] INFLUENZA, UNSPECIFIED FORMULATION 2013 88 complet ed [facility] INFLUENZA, UNSPECIFIED FORMULATION 2013 88 complet ed [facility] PNEUMOCOCCAL POLYSACCHARID E PPV23 2012 33 complet ed [facility] ZOSTER LIVE 2012 121 complet ed [facility] ZOSTER LIVE 2009 121 complet ed [facility] Results Combined list of recent chemistry, hematology and other laboratory results from Department of Defense and Veterans Affairs, ranging from 15 months to all on record, depending upon the facility. Order Name Results Value Reference Range Date Interpretation Specimen Comments Source URINALYSI S (STL-PB) COLOR OF URINE Light-Y ellow 05/20 Specimen Type: URINE No comment entered. Ordering Provider: Bessie GARCIA Report Released Date/Time: May 20, 2024 08:32 AM Reporting Lab: [facility] [id number] Performing Lab: [facility] [phone] [facility] URINALYSI S (STL-PB) BILIRUBIN.T OTAL [PRESENCE] IN URINE BY TEST STRIP Negativ emg/dL 05/20 Specimen Type: URINE No comment entered. Ordering Provider: Bessie GARCIA Report Released Date/Time: May 20, 2024 08:32 AM Reporting Lab: [facility] [address] [place] [address] Performing Lab: [facility] DIV[facility] URINALYSI S (STL-PB) PH OF URINE BY TEST STRIP 7.0 5.0 - 8.0 05/20 Specimen Type: URINE No comment entered. Ordering Provider: Bessie GARCIA Report Released Date/Time: May 20, 2024 08:32 AM Reporting Lab: [facility] [place] [address] Performing Lab: [facility] [facility] URINALYSI S (STL-PB) APPEARANCE OF URINE Clear 05/20 Specimen Type: URINE No comment entered. Ordering Provider: Bessie GARCIA Report Released Date/Time: May 20, 2024 08:32 AM Reporting Lab: [facility] [place] [address] Performing Lab: [facility] [facility] URINALYSI S (STL-PB) NITRITE [PRESENCE] IN URINE BY TEST STRIP Negativ emg/dL 05/20 Specimen Type: URINE No comment entered. Ordering Provider: Bessie GARCIA Report Released Date/Time: May 20, 2024 08:32 AM Reporting Lab: [facility] [place] [address] Performing Lab: [facility] [facility] URINALYSI S (STL-PB) GLUCOSE [MASS/VOLUM E] IN URINE BY TEST STRIP Normalm g/dL 05/20 Specimen Type: URINE No comment entered. Ordering Provider: Bessie GARCIA Report Released Date/Time: May 20, 2024 08:32 AM Reporting Lab: [facility] [place] [address] Performing Lab: [facility] [facility] URINALYSI S (STL-PB) PROTEIN [MASS/VOLUM E] IN URINE BY TEST STRIP Negativ emg/dL 05/20 Specimen Type: URINE No comment entered. Ordering Provider: Bessie GARCIA Report Released Date/Time: May 20, 2024 08:32 AM Reporting Lab: [facility] [place] [address] Performing Lab: [facility] [facility] URINALYSI S (STL-PB) URN.UROBILI NOGEN 2 mg/dL 05/20 H Specimen Type: URINE No comment entered. Ordering Provider: Bessie GARCIA Report Released Date/Time: May 20, 2024 08:32 AM Reporting Lab: [facility] [place] [address] Performing Lab: [facility] [facility] URINALYSI S (STL-PB) HEMOGLOBIN [MASS/VOLUM E] IN URINE BY TEST STRIP Negativ emg/dL 05/20 Specimen Type: URINE No comment entered. Ordering Provider: Bessie GARCIA Report Released Date/Time: May 20, 2024 08:32 AM Reporting Lab: [facility] [place] [address] Performing Lab: [facility] [facility] URINALYSI S (STL-PB) KETONES [MASS/VOLUM E] IN URINE BY TEST STRIP Negativ emg/dL 05/20 Specimen Type: URINE No comment entered. Ordering Provider: Bessie GARCIA Report Released Date/Time: May 20, 2024 08:32 AM Reporting Lab: [facility] [place] [address] Performing Lab: [facility] [facility] URINALYSI S (STL-PB) URN.LEUK.ES T. Negativ emg/dL 05/20 Specimen Type: URINE No comment entered. Ordering Provider: Bessie GARCIA Report Released Date/Time: May 20, 2024 08:32 AM Reporting Lab: [facility] [place] [address] Performing Lab: [facility] [facility] URINALYSI S (STL-PB) SPECIFIC GRAVITY OF URINE 1.016 05/20 Specimen Type: URINE No comment entered. Ordering Provider: Bessie GARCIA Report Released Date/Time: May 20, 2024 08:32 AM Reporting Lab: [facility] [place] [address] Performing Lab: [facility] [address] [facility] CBC LEUKOCYTES [#/VOLUME] IN BLOOD BY AUTOMATED COUNT 10.1 10*3/uL 3.6 - 11.2 05/20 Specimen Type: BLOOD No comment entered. Ordering Provider: Bessie GARCIA Report Released Date/Time: May 20, 2024 08:32 AM Reporting Lab: [facility] [place] [address] Performing Lab: [facility] [facility] [phone] [facility] CBC ERYTHROCYTE S [#/VOLUME] IN BLOOD BY AUTOMATED COUNT 4.67 10*6/uL 4.10 - 5.70 05/20 Specimen Type: BLOOD No comment entered. Ordering Provider: Bessie GARCIA Report Released Date/Time: May 20, 2024 08:32 AM Reporting Lab: [facility] [place] [address] Performing Lab: [facility] [facility] [id number] [facility] CBC HEMOGLOBIN [MASS/VOLUM E] IN BLOOD 15.2 g/dL 13.1 - 16.8 05/20 Specimen Type: BLOOD No comment entered. Ordering Provider: Bessie GARCIA Report Released Date/Time: May 20, 2024 08:32 AM Reporting Lab: [facility] [place] [address] Performing Lab: [facility] [address] [facility] CBC HEMATOCRIT [VOLUME FRACTION] OF BLOOD 46.8 38.2 - 48.4 05/20 Specimen Type: BLOOD No comment entered. Ordering Provider: Bessie GARCIA Report Released Date/Time: May 20, 2024 08:32 AM Reporting Lab: [facility] [place] [address] Performing Lab: [facility] [facility] [id number] [facility] CBC MCV [ENTITIC VOLUME] BY AUTOMATED COUNT 100.2 fL 80.0 - 100.0 05/20 H Specimen Type: BLOOD No comment entered. Ordering Provider: Bessie GARCIA Report Released Date/Time: May 20, 2024 08:32 AM Reporting Lab: [facility] [place] [address] Performing Lab: [facility] [facility] [id number] [address] [facility] CBC MCH [ENTITIC MASS] BY AUTOMATED COUNT 32.5 pg 27.0 - 34.0 05/20 Specimen Type: BLOOD No comment entered. Ordering Provider: Bessie GARCIA Report Released Date/Time: May 20, 2024 08:32 AM Reporting Lab: [facility] [place] [address] Performing Lab: [facility] [address] DIV[facility] CBC MCHC [MASS/VOLUM E] BY AUTOMATED COUNT 32.5 g/dL 33.0 - 36.0 05/20 L Specimen Type: BLOOD No comment entered. Ordering Provider: Bessie GARCIA Report Released Date/Time: May 20, 2024 08:32 AM Reporting Lab: [facility] [place] [address] Performing Lab: [facility] [address] DIVISION CBC PLATELETS [#/VOLUME] IN BLOOD BY AUTOMATED COUNT 212 10*3/uL 150 - 400 05/20 Specimen Type: BLOOD No comment entered. Ordering Provider: Bessie GARCIA Report Released Date/Time: May 20, 2024 08:32 AM Reporting Lab: [facility] [place] [address] Performing Lab: [facility] [address] DIVISION CBC PLATELET MEAN VOLUME [ENTITIC VOLUME] IN BLOOD BY AUTOMATED COUNT 10.0 fL 7.5 - 11.2 05/20 Specimen Type: BLOOD No comment entered. Ordering Provider: Bessie GARCIA Report Released Date/Time: May 20, 2024 08:32 AM Reporting Lab: [facility] [address] Performing Lab: [facility] [facility] [id number] [address] [facility] CBC ERYTHROCYTE DISTRIBUTIO N WIDTH [RATIO] BY AUTOMATED COUNT 13.8 11.8 - 15.1 05/20 Specimen Type: BLOOD No comment entered. Ordering Provider: Bessie GARCIA Report Released Date/Time: May 20, 2024 08:32 AM Reporting Lab: [facility] [place] [address] Performing Lab: [facility] DIVISION CBC LYMPHOCYTES /100 LEUKOCYTES IN BLOOD BY AUTOMATED COUNT 22 05/20 Specimen Type: BLOOD No comment entered. Ordering Provider: Bessie GARCIA Report Released Date/Time: May 20, 2024 08:32 AM Reporting Lab: [facility] [place] [address] Performing Lab: [facility] DIVISION CBC MONOCYTES/1 00 LEUKOCYTES IN BLOOD BY AUTOMATED COUNT 10 05/20 Specimen Type: BLOOD No comment entered. Ordering Provider: Bessie GARCIA Report Released Date/Time: May 20, 2024 08:32 AM Reporting Lab: [facility] [id number] Performing Lab: [facility] [id number] DIVISION CBC NEUTROPHILS /100 LEUKOCYTES IN BLOOD BY AUTOMATED COUNT 67 05/20 Specimen Type: BLOOD No comment entered. Ordering Provider: Bessie GARCIA Report Released Date/Time: May 20, 2024 08:32 AM Reporting Lab: [facility] [place] [address] Performing Lab: [facility]1 [place] [id number] DIVISION CBC EOSINOPHILS /100 LEUKOCYTES IN BLOOD BY AUTOMATED COUNT 1 05/20 Specimen Type: BLOOD No comment entered. Ordering Provider: Bessie GARCIA Report Released Date/Time: May 20, 2024 08:32 AM Reporting Lab: [facility] [place] [address] Performing Lab: [facility] DIVISION CBC BASOPHILS/1 00 LEUKOCYTES IN BLOOD BY AUTOMATED COUNT 1 05/20 Specimen Type: BLOOD No comment entered. Ordering Provider: Bessie GARCIA Report Released Date/Time: May 20, 2024 08:32 AM Reporting Lab: [facility] [place] [address] Performing Lab: [facility] DIVISION CBC LYMPHOCYTES [#/VOLUME] IN BLOOD BY AUTOMATED COUNT 2.16 10*3/uL 0.77 - 4.50 05/20 Specimen Type: BLOOD No comment entered. Ordering Provider: Bessie GARCIA Report Released Date/Time: May 20, 2024 08:32 AM Reporting Lab: [facility] [place] [address] Performing Lab: [facility] DIVISION CBC MONOCYTES [#/VOLUME] IN BLOOD BY AUTOMATED COUNT 0.98 10*3/uL 0.19 - 0.80 05/20 H Specimen Type: BLOOD No comment entered. Ordering Provider: Bessie GARCIA Report Released Date/Time: May 20, 2024 08:32 AM Reporting Lab: [facility] [place] [address] Performing Lab: [facility] DIVISION CBC NEUTROPHILS [#/VOLUME] IN BLOOD BY AUTOMATED COUNT 6.71 10*3/uL 2.10 - 8.00 05/20 Specimen Type: BLOOD No comment entered. Ordering Provider: Bessie GARCIA Report Released Date/Time: May 20, 2024 08:32 AM Reporting Lab: [facility] [place] [address] Performing Lab: [facility] DIVISION CBC EOSINOPHILS [#/VOLUME] IN BLOOD BY AUTOMATED COUNT 0.11 10*3/uL 0.00 - 0.60 05/20 Specimen Type: BLOOD No comment entered. Ordering Provider: Bessie GARCIA Report Released Date/Time: May 20, 2024 08:32 AM Reporting Lab: [facility] [place] [address] Performing Lab: [facility] DIVISION CBC BASOPHILS [#/VOLUME] IN BLOOD BY AUTOMATED COUNT 0.06 10*3/uL 0.00 - 0.20 05/20 Specimen Type: BLOOD No comment entered. Ordering Provider: Bessie GARCIA Report Released Date/Time: May 20, 2024 08:32 AM Reporting Lab: [facility] [place] [address] Performing Lab: [facility] DIVISION COMPREHEN SIVE METABOLIC PANEL CREATININE [MASS/VOLUM E] IN SERUM OR PLASMA 1.06 mg/dL 0.70 - 1.30 05/20 Specimen Type: PLASMA Comment: No hemolysis noted. Ordering Provider: Bessie GARCIA Report Released Date/Time: May 20, 2024 08:32 AM Reporting Lab: [facility]1 [place] [phone] Performing Lab: [facility] DIVISION COMPREHEN SIVE METABOLIC PANEL UREA NITROGEN [MASS/VOLUM E] IN SERUM OR PLASMA 13.3 mg/dL 9.0 - 25.0 05/20 Specimen Type: PLASMA Comment: No hemolysis noted. Ordering Provider: Bessie GARCIA Report Released Date/Time: May 20, 2024 08:32 AM Reporting Lab: [facility] [place] [address] Performing Lab: [facility] DIVISION COMPREHEN SIVE METABOLIC PANEL GLUCOSE [MASS/VOLUM E] IN SERUM OR PLASMA 102 mg/dL 72 - 99 05/20 H Specimen Type: PLASMA Comment: No hemolysis noted. Ordering Provider: Bessie GARCIA Report Released Date/Time: May 20, 2024 08:32 AM Reporting Lab: [facility] [place] [address] Performing Lab: [facility] DIVISION COMPREHEN SIVE METABOLIC PANEL SODIUM [MOLES/VOLU ME] IN SERUM OR PLASMA 140 meq/L 136 - 145 05/20 Specimen Type: PLASMA Comment: No hemolysis noted. Ordering Provider: Bessie GARCIA Report Released Date/Time: May 20, 2024 08:32 AM Reporting Lab: [facility]1 [place] [address] Performing Lab: [facility] DIVISION COMPREHEN SIVE METABOLIC PANEL POTASSIUM [MOLES/VOLU ME] IN SERUM OR PLASMA 4.6 meq/L 3.5 - 5.0 05/20 Specimen Type: PLASMA Comment: No hemolysis noted. Ordering Provider: Bessie GARCIA Report Released Date/Time: May 20, 2024 08:32 AM Reporting Lab: [facility] [place] [address] Performing Lab: [facility] DIVISION COMPREHEN SIVE METABOLIC PANEL CHLORIDE [MOLES/VOLU ME] IN SERUM OR PLASMA 106 meq/L 98 - 107 05/20 Specimen Type: PLASMA Comment: No hemolysis noted. Ordering Provider: Bessie GARCIA Report Released Date/Time: May 20, 2024 08:32 AM Reporting Lab: [facility] [place] [address] Performing Lab: [facility] DIVISION COMPREHEN SIVE METABOLIC PANEL CARBON DIOXIDE, TOTAL [MOLES/VOLU ME] IN SERUM OR PLASMA 27 meq/L 22 - 31 05/20 Specimen Type: PLASMA Comment: No hemolysis noted. Ordering Provider: Bessie GARCIA Report Released Date/Time: May 20, 2024 08:32 AM Reporting Lab: [facility] [place] [address] Performing Lab: [facility] DIVISION COMPREHEN SIVE METABOLIC PANEL CALCIUM [MASS/VOLUM E] IN SERUM OR PLASMA 10.2 mg/dL 8.4 - 10.4 05/20 Specimen Type: PLASMA Comment: No hemolysis noted. Ordering Provider: Bessie GARCIA Report Released Date/Time: May 20, 2024 08:32 AM Reporting Lab: [facility] [place] [address] Performing Lab: [facility] DIVISION COMPREHEN SIVE METABOLIC PANEL PROTEIN [MASS/VOLUM E] IN SERUM OR PLASMA 7.1 g/dL 6.0 - 8.6 05/20 Specimen Type: PLASMA Comment: No hemolysis noted. Ordering Provider: Bessie GARCIA Report Released Date/Time: May 20, 2024 08:32 AM Reporting Lab: [facility]1 [place] [address] Performing Lab: [facility] DIVISION COMPREHEN SIVE METABOLIC PANEL ALBUMIN [MASS/VOLUM E] IN SERUM OR PLASMA 4.1 g/dL 3.4 - 5.0 05/20 Specimen Type: PLASMA Comment: No hemolysis noted. Ordering Provider: Bessie GARCIA Report Released Date/Time: May 20, 2024 08:32 AM Reporting Lab: [facility]1 [place] [address] Performing Lab: [facility] DIVISION COMPREHEN SIVE METABOLIC PANEL BILIRUBIN.T OTAL [MASS/VOLUM E] IN SERUM OR PLASMA 0.6 mg/dL 0.2 - 1.2 05/20 Specimen Type: PLASMA Comment: No hemolysis noted. Ordering Provider: Bessie GARCIA Report Released Date/Time: May 20, 2024 08:32 AM Reporting Lab: [facility] [place] [address] Performing Lab: [facility] DIVISION COMPREHEN SIVE METABOLIC PANEL ALKALINE PHOSPHATASE [ENZYMATIC ACTIVITY/VO LUME] IN SERUM OR PLASMA 96 U/L 40 - 150 05/20 Specimen Type: PLASMA Comment: No hemolysis noted. Ordering Provider: Bessie GARCIA Report Released Date/Time: May 20, 2024 08:32 AM Reporting Lab: [facility]1 [place] [address] Performing Lab: [facility] DIVISION COMPREHEN SIVE METABOLIC PANEL ASPARTATE AMINOTRANSF ERASE [ENZYMATIC ACTIVITY/VO LUME] IN SERUM OR PLASMA 19 U/L 5 - 34 05/20 Specimen Type: PLASMA Comment: No hemolysis noted. Ordering Provider: Bessie GARCIA Report Released Date/Time: May 20, 2024 08:32 AM Reporting Lab: [facility] [place] [address] Performing Lab: [facility] DIVISION COMPREHEN SIVE METABOLIC PANEL ALANINE AMINOTRANSF ERASE [ENZYMATIC ACTIVITY/VO LUME] IN SERUM OR PLASMA 13 U/L 8 - 40 05/20 Specimen Type: PLASMA Comment: No hemolysis noted. Ordering Provider: Besise GARCIA Report Released Date/Time: May 20, 2024 08:32 AM Reporting Lab: [facility]1 [place] [address] Performing Lab: [facility] DIVISION COMPREHEN SIVE METABOLIC PANEL GLOMERULAR FILTRATION RATE/1.73 SQ M.PREDICTED [VOLUME RATE/AREA] IN SERUM, PLASMA OR BLOOD BY CREATININE- BASED FORMULA (CKD-EPI 2020) 76.92 60 05/20 Specimen Type: PLASMA Comment: No hemolysis noted. Ordering Provider: Bessie GARCIA Report Released Date/Time: May 20, 2024 08:32 AM Reporting Lab: [facility] [place] [address] Performing Lab: [facility] DIVISION MICRAL/CR EAT PROFILE (STL) ALBUMIN [MASS/VOLUM E] IN URINE 8 mg/L 04/08 Specimen Type: URINE No comment entered. Ordering Provider: Bessie GARCIA Report Released Date/Time: Apr 08, 2024 08:39 AM Reporting Lab: [facility] [place] [address] Performing Lab: [facility] DIVISION MICRAL/CR EAT PROFILE (STL) ALBUMIN/CRE ATININE [MASS RATIO] IN URINE 6 mg/g 0 - 29 04/08 Specimen Type: URINE No comment entered. Ordering Provider: Bessie GARCIA Report Released Date/Time: Apr 08, 2024 08:39 AM Reporting Lab: [facility]1 [place] [address] Performing Lab: [facility] DIVISION MICRAL/CR EAT PROFILE (STL) CREATININE [MASS/VOLUM E] IN URINE 139.8 mg/dL 63.0 - 166.0 04/08 Specimen Type: URINE No comment entered. Ordering Provider: Bessie GARCIA Report Released Date/Time: Apr 08, 2024 08:39 AM Reporting Lab: [facility] [place] [address] Performing Lab: [facility] DIVISION URINALYSI S (STL-PB) COLOR OF URINE Yellow 04/08 Specimen Type: URINE No comment entered. Ordering Provider: Bessie GARCIA Report Released Date/Time: Apr 08, 2024 08:39 AM Reporting Lab: [facility] [place] [address] Performing Lab: [facility] DIVISION URINALYSI S (STL-PB) BILIRUBIN.T OTAL [PRESENCE] IN URINE BY TEST STRIP Negativ emg/dL 04/08 Specimen Type: URINE No comment entered. Ordering Provider: Bessie GARCIA Report Released Date/Time: Apr 08, 2024 08:39 AM Reporting Lab: [facility]1 [place] [address] Performing Lab: [facility] DIVISION URINALYSI S (STL-PB) PH OF URINE BY TEST STRIP 6.5 5.0 - 8.0 04/08 Specimen Type: URINE No comment entered. Ordering Provider: Bessie GARCIA Report Released Date/Time: Apr 08, 2024 08:39 AM Reporting Lab: [facility] [place] [address] Performing Lab: [facility] DIVISION URINALYSI S (STL-PB) APPEARANCE OF URINE Clear 04/08 Specimen Type: URINE No comment entered. Ordering Provider: Bessie GARCIA Report Released Date/Time: Apr 08, 2024 08:39 AM Reporting Lab: [facility] [place] [address] Performing Lab: [facility] DIVISION URINALYSI S (STL-PB) NITRITE [PRESENCE] IN URINE BY TEST STRIP Negativ emg/dL 04/08 Specimen Type: URINE No comment entered. Ordering Provider: Bessie GARCIA Report Released Date/Time: Apr 08, 2024 08:39 AM Reporting Lab: [facility] [place] [address] Performing Lab: [id number] DIVISION URINALYSI S (STL-PB) GLUCOSE [MASS/VOLUM E] IN URINE BY TEST STRIP Normalm g/dL 04/08 Specimen Type: URINE No comment entered. Ordering Provider: Bessie GARCIA Report Released Date/Time: Apr 08, 2024 08:39 AM Reporting Lab: [facility] [place] [address] Performing Lab: [facility] DIVISION URINALYSI S (STL-PB) PROTEIN [MASS/VOLUM E] IN URINE BY TEST STRIP Negativ emg/dL 04/08 Specimen Type: URINE No comment entered. Ordering Provider: Bessie GARCIA Report Released Date/Time: Apr 08, 2024 08:39 AM Reporting Lab: [facility] [place] [address] Performing Lab: [facility] DIVISION URINALYSI S (STL-PB) URN.UROBILI NOGEN 2 mg/dL 04/08 H Specimen Type: URINE No comment entered. Ordering Provider: Bessie GARCIA Report Released Date/Time: Apr 08, 2024 08:39 AM Reporting Lab: [facility] [place] [address] Performing Lab: [facility] DIVISION URINALYSI S (STL-PB) HEMOGLOBIN [MASS/VOLUM E] IN URINE BY TEST STRIP Negativ emg/dL 04/08 Specimen Type: URINE No comment entered. Ordering Provider: Bessie GARCIA Report Released Date/Time: Apr 08, 2024 08:39 AM Reporting Lab: [facility] [id number] Performing Lab: [facility] DIVISION URINALYSI S (STL-PB) KETONES [MASS/VOLUM E] IN URINE BY TEST STRIP Negativ emg/dL 04/08 Specimen Type: URINE No comment entered. Ordering Provider: Bessie GARCIA Report Released Date/Time: Apr 08, 2024 08:39 AM Reporting Lab: [facility] [place] [address] Performing Lab: [facility] DIVISION URINALYSI S (L-PB) URN.LEUK.ES T. Negativ emg/dL 04/08 Specimen Type: URINE No comment entered. Ordering Provider: Bessie GARCIA Report Released Date/Time: Apr 08, 2024 08:39 AM Reporting Lab: [facility] [place] [address] Performing Lab: [facility] DIVISION URINALYSI S (L-PB) SPECIFIC GRAVITY OF URINE 1.023 04/08 Specimen Type: URINE No comment entered. Ordering Provider: Bessie GARCIA Report Released Date/Time: Apr 08, 2024 08:39 AM Reporting Lab: [facility] [place] [address] Performing Lab: [facility] DIVISION CBC LEUKOCYTES [#/VOLUME] IN BLOOD BY AUTOMATED COUNT 9.3 10*3/uL 3.6 - 11.2 04/08 Specimen Type: BLOOD No comment entered. Ordering Provider: Bessie GARCIA Report Released Date/Time: Apr 08, 2024 08:39 AM Reporting Lab: [facility] [place] [address] Performing Lab: [facility] DIVISION CBC ERYTHROCYTE S [#/VOLUME] IN BLOOD BY AUTOMATED COUNT 4.43 10*6/uL 4.10 - 5.70 04/08 Specimen Type: BLOOD No comment entered. Ordering Provider: Bessie GARCIA Report Released Date/Time: Apr 08, 2024 08:39 AM Reporting Lab: [facility] [place] [address] Performing Lab: [facility] CBC HEMOGLOBIN [MASS/VOLUM E] IN BLOOD 14.6 g/dL 13.1 - 16.8 04/08 Specimen Type: BLOOD No comment entered. Ordering Provider: Bessie GARCIA Report Released Date/Time: Apr 08, 2024 08:39 AM Reporting Lab: [facility] [place] [address] Performing Lab: [facility] CBC HEMATOCRIT [VOLUME FRACTION] OF BLOOD 44.4 38.2 - 48.4 04/08 Specimen Type: BLOOD No comment entered. Ordering Provider: Bessie GARCIA Report Released Date/Time: Apr 08, 2024 08:39 AM Reporting Lab: [facility] [place] [address] Performing Lab: [facility] DIVISION CBC MCV [ENTITIC VOLUME] BY AUTOMATED COUNT 100.2 fL 80.0 - 100.0 04/08 H Specimen Type: BLOOD No comment entered. Ordering Provider: Bessie GARCIA Report Released Date/Time: Apr 08, 2024 08:39 AM Reporting Lab: [facility] [place] [address] Performing Lab: [facility] DIVISION CBC MCH [ENTITIC MASS] BY AUTOMATED COUNT 33.0 pg 27.0 - 34.0 04/08 Specimen Type: BLOOD No comment entered. Ordering Provider: Bessie GARCIA Report Released Date/Time: Apr 08, 2024 08:39 AM Reporting Lab: [facility] [place] [address] Performing Lab: [facility] DIVISION CBC MCHC [MASS/VOLUM E] BY AUTOMATED COUNT 32.9 g/dL 33.0 - 36.0 04/08 L Specimen Type: BLOOD No comment entered. Ordering Provider: Bessie GARCIA Report Released Date/Time: Apr 08, 2024 08:39 AM Reporting Lab: [facility] [place] [address] Performing Lab: [facility] DIVISION CBC PLATELETS [#/VOLUME] IN BLOOD BY AUTOMATED COUNT 217 10*3/uL 150 - 400 04/08 Specimen Type: BLOOD No comment entered. Ordering Provider: Bessie GARCIA Report Released Date/Time: Apr 08, 2024 08:39 AM Reporting Lab: [facility] [place] [address] Performing Lab: [facility] DIVISION CBC PLATELET MEAN VOLUME [ENTITIC VOLUME] IN BLOOD BY AUTOMATED COUNT 9.8 fL 7.5 - 11.2 04/08 Specimen Type: BLOOD No comment entered. Ordering Provider: Bessie GARCIA Report Released Date/Time: Apr 08, 2024 08:39 AM Reporting Lab: [facility] [place] [address] Performing Lab: [facility] DIVISION CBC ERYTHROCYTE DISTRIBUTIO N WIDTH [RATIO] BY AUTOMATED COUNT 14.0 11.8 - 15.1 04/08 Specimen Type: BLOOD No comment entered. Ordering Provider: Bessie GARCIA Report Released Date/Time: Apr 08, 2024 08:39 AM Reporting Lab: [facility] [place] [address] Performing Lab: [facility] DIVISION CBC LYMPHOCYTES /100 LEUKOCYTES IN BLOOD BY AUTOMATED COUNT 21 04/08 Specimen Type: BLOOD No comment entered. Ordering Provider: Bessie GARCIA Report Released Date/Time: Apr 08, 2024 08:39 AM Reporting Lab: [facility] [place] [address] Performing Lab: [facility] DIVISION CBC MONOCYTES/1 00 LEUKOCYTES IN BLOOD BY AUTOMATED COUNT 9 04/08 Specimen Type: BLOOD No comment entered. Ordering Provider: Bessie GARCIA Report Released Date/Time: Apr 08, 2024 08:39 AM Reporting Lab: [facility] [place] [address] Performing Lab: [facility] DIVISION CBC NEUTROPHILS /100 LEUKOCYTES IN BLOOD BY AUTOMATED COUNT 67 04/08 Specimen Type: BLOOD No comment entered. Ordering Provider: Bessie GARCIA Report Released Date/Time: Apr 08, 2024 08:39 AM Reporting Lab: [facility] [place] [address] Performing Lab: [facility] DIVISION CBC EOSINOPHILS /100 LEUKOCYTES IN BLOOD BY AUTOMATED COUNT 1 04/08 Specimen Type: BLOOD No comment entered. Ordering Provider: Bessie GARCIA Report Released Date/Time: Apr 08, 2024 08:39 AM Reporting Lab: [facility] [place] [address] Performing Lab: [facility] DIVISION CBC BASOPHILS/1 00 LEUKOCYTES IN BLOOD BY AUTOMATED COUNT 1 04/08 Specimen Type: BLOOD No comment entered. Ordering Provider: Bessie GARCIA Report Released Date/Time: Apr 08, 2024 08:39 AM Reporting Lab: [facility] [place] [address] Performing Lab: [facility] [place] LYMPHOCYTES [#/VOLUME] IN BLOOD BY AUTOMATED COUNT 1.99 10*3/uL 0.77 - 4.50 04/08 Specimen Type: BLOOD No comment entered. Ordering Provider: Bessie GARCIA Report Released Date/Time: Apr 08, 2024 08:39 AM Reporting Lab: [facility] [place] [address] Performing Lab: [facility] [place] MONOCYTES [#/VOLUME] IN BLOOD BY AUTOMATED COUNT 0.81 10*3/uL 0.19 - 0.80 04/08 H Specimen Type: BLOOD No comment entered. Ordering Provider: Bessie GARCIA Report Released Date/Time: Apr 08, 2024 08:39 AM Reporting Lab: [facility] [place] [address] Performing Lab: [facility] [place] NEUTROPHILS [#/VOLUME] IN BLOOD BY AUTOMATED COUNT 6.26 10*3/uL 2.10 - 8.00 04/08 Specimen Type: BLOOD No comment entered. Ordering Provider: Bessie GARCIA Report Released Date/Time: Apr 08, 2024 08:39 AM Reporting Lab: [facility] [place] [address] Performing Lab: [facility] [place] EOSINOPHILS [#/VOLUME] IN BLOOD BY AUTOMATED COUNT 0.12 10*3/uL 0.00 - 0.60 04/08 Specimen Type: BLOOD No comment entered. Ordering Provider: Bessie GARCIA Report Released Date/Time: Apr 08, 2024 08:39 AM Reporting Lab: [facility] [place] [address] Performing Lab: [facility] [place] BASOPHILS [#/VOLUME] IN BLOOD BY AUTOMATED COUNT 0.08 10*3/uL 0.00 - 0.20 04/08 Specimen Type: BLOOD No comment entered. Ordering Provider: Bessie GARCIA Report Released Date/Time: Apr 08, 2024 08:39 AM Reporting Lab: [facility] [place] [address] Performing Lab: [facility] DIVISION COMPREHEN SIVE METABOLIC PANEL CREATININE [MASS/VOLUM E] IN SERUM OR PLASMA 1.07 mg/dL 0.70 - 1.30 04/08 Specimen Type: PLASMA Comment: No hemolysis noted. Ordering Provider: Bessie GARCIA Report Released Date/Time: Apr 08, 2024 08:39 AM Reporting Lab: [facility] [place] [address] Performing Lab: [facility] DIVISION COMPREHEN SIVE METABOLIC PANEL UREA NITROGEN [MASS/VOLUM E] IN SERUM OR PLASMA 11.6 mg/dL 9.0 - 25.0 04/08 Specimen Type: PLASMA Comment: No hemolysis noted. Ordering Provider: Bessie GARCIA Report Released Date/Time: Apr 08, 2024 08:39 AM Reporting Lab: [facility] [place] [address] Performing Lab: [facility] DIVISION COMPREHEN SIVE METABOLIC PANEL GLUCOSE [MASS/VOLUM E] IN SERUM OR PLASMA 102 mg/dL 72 - 99 04/08 H Specimen Type: PLASMA Comment: No hemolysis noted. Ordering Provider: Bessie GARCIA Report Released Date/Time: Apr 08, 2024 08:39 AM Reporting Lab: [facility] [place] [address] Performing Lab: [facility] DIVISION COMPREHEN SIVE METABOLIC PANEL SODIUM [MOLES/VOLU ME] IN SERUM OR PLASMA 141 meq/L 136 - 145 04/08 Specimen Type: PLASMA Comment: No hemolysis noted. Ordering Provider: Bessie GARCIA Report Released Date/Time: Apr 08, 2024 08:39 AM Reporting Lab: [facility] [place] [address] Performing Lab: [facility] DIVISION COMPREHEN SIVE METABOLIC PANEL POTASSIUM [MOLES/VOLU ME] IN SERUM OR PLASMA 4.2 meq/L 3.5 - 5.0 04/08 Specimen Type: PLASMA Comment: No hemolysis noted. Ordering Provider: Bessie GARCIA Report Released Date/Time: Apr 08, 2024 08:39 AM Reporting Lab: [facility] [place] [address] Performing Lab: [facility] DIVISION COMPREHEN SIVE METABOLIC PANEL CHLORIDE [MOLES/VOLU ME] IN SERUM OR PLASMA 105 meq/L 98 - 107 04/08 Specimen Type: PLASMA Comment: No hemolysis noted. Ordering Provider: Bessie GARCIA Report Released Date/Time: Apr 08, 2024 08:39 AM Reporting Lab: [facility]1 [place] [address] Performing Lab: [facility] DIVISION COMPREHEN SIVE METABOLIC PANEL CARBON DIOXIDE, TOTAL [MOLES/VOLU ME] IN SERUM OR PLASMA 27 meq/L 22 - 31 04/08 Specimen Type: PLASMA Comment: No hemolysis noted. Ordering Provider: Bessie GARCIA Report Released Date/Time: Apr 08, 2024 08:39 AM Reporting Lab: [facility] [place] [address] Performing Lab: [facility] DIVISION COMPREHEN SIVE METABOLIC PANEL CALCIUM [MASS/VOLUM E] IN SERUM OR PLASMA 10.3 mg/dL 8.4 - 10.4 04/08 Specimen Type: PLASMA Comment: No hemolysis noted. Ordering Provider: Bessie GARCIA Report Released Date/Time: Apr 08, 2024 08:39 AM Reporting Lab: [facility] Performing Lab: [facility] DIVISION COMPREHEN SIVE METABOLIC PANEL PROTEIN [MASS/VOLUM E] IN SERUM OR PLASMA 7.4 g/dL 6.0 - 8.6 04/08 Specimen Type: PLASMA Comment: No hemolysis noted. Ordering Provider: Bessie GARCIA Report Released Date/Time: Apr 08, 2024 08:39 AM Reporting Lab: [facility]1 [place] [address] Performing Lab: [facility] DIVISION COMPREHEN SIVE METABOLIC PANEL ALBUMIN [MASS/VOLUM E] IN SERUM OR PLASMA 3.9 g/dL 3.4 - 5.0 04/08 Specimen Type: PLASMA Comment: No hemolysis noted. Ordering Provider: Bessie GARCIA Report Released Date/Time: Apr 08, 2024 08:39 AM Reporting Lab: [facility] [place] [address] Performing Lab: [facility] DIVISION COMPREHEN SIVE METABOLIC PANEL BILIRUBIN.T OTAL [MASS/VOLUM E] IN SERUM OR PLASMA 0.4 mg/dL 0.2 - 1.2 04/08 Specimen Type: PLASMA Comment: No hemolysis noted. Ordering Provider: Bessie GARCIA Report Released Date/Time: Apr 08, 2024 08:39 AM Reporting Lab: [facility] [place] [address] Performing Lab: [facility] DIVISION COMPREHEN SIVE METABOLIC PANEL ALKALINE PHOSPHATASE [ENZYMATIC ACTIVITY/VO LUME] IN SERUM OR PLASMA 91 U/L 40 - 150 04/08 Specimen Type: PLASMA Comment: No hemolysis noted. Ordering Provider: Bessie GARCIA Report Released Date/Time: Apr 08, 2024 08:39 AM Reporting Lab: [facility] [place] [address] Performing Lab: [facility] DIVISION COMPREHEN SIVE METABOLIC PANEL ASPARTATE AMINOTRANSF ERASE [ENZYMATIC ACTIVITY/VO LUME] IN SERUM OR PLASMA 12 U/L 5 - 34 04/08 Specimen Type: PLASMA Comment: No hemolysis noted. Ordering Provider: Bessie GARCIA Report Released Date/Time: Apr 08, 2024 08:39 AM Reporting Lab: [facility]1 [place] [address] Performing Lab: [facility] DIVISION COMPREHEN SIVE METABOLIC PANEL ALANINE AMINOTRANSF ERASE [ENZYMATIC ACTIVITY/VO LUME] IN SERUM OR PLASMA 13 U/L 8 - 40 04/08 Specimen Type: PLASMA Comment: No hemolysis noted. Ordering Provider: Bessie GARCIA Report Released Date/Time: Apr 08, 2024 08:39 AM Reporting Lab: [facility] [place] [address] Performing Lab: [facility] DIVISION COMPREHEN SIVE METABOLIC PANEL GLOMERULAR FILTRATION RATE/1.73 SQ M.PREDICTED [VOLUME RATE/AREA] IN SERUM, PLASMA OR BLOOD BY CREATININE- BASED FORMULA (CKD-EPI 2020) 76.06 60 04/08 Specimen Type: PLASMA Comment: No hemolysis noted. Ordering Provider: Bessie GARCIA Report Released Date/Time: Apr 08, 2024 08:39 AM Reporting Lab: [facility] [place] [address] Performing Lab: [facility] [id number] HGA1C HEMOGLOBIN A1C/HEMOGLO BIN.TOTAL IN BLOOD 6.3 4.0 - 6.0 04/08 H Specimen Type: BLOOD No comment entered. Ordering Provider: Bessie GARCIA Report Released Date/Time: Apr 08, 2024 08:39 AM Reporting Lab: [facility] [address] Performing Lab: [facility] [id number] [place] [address] DIVISION TSH (MA-PB) THYROTROPIN [UNITS/VOLU ME] IN SERUM OR PLASMA 1.120 u[IU]/m L 0.470 - 5.000 04/08 Specimen Type: SERUM No comment entered. Ordering Provider: Bessie GARCIA Report Released Date/Time: Apr 08, 2024 08:39 AM Reporting Lab: [facility] [place] [address] Performing Lab: [facility] [id number] DIVISION VITAMIN D, 25-HYDROX Y 25-HYDROXYV ITAMIN D3 [MASS/VOLUM E] IN SERUM OR PLASMA 33.1 ng/mL 30 - 96 04/08 Specimen Type: SERUM No comment entered. Ordering Provider: Bessie GARCIA Report Released Date/Time: Apr 08, 2024 08:39 AM Reporting Lab: [facility] [address] Performing Lab: [facility] [id number] Vital Signs Combined list of inpatient and outpatient Vital Signs from Department of Defense and Veterans Affairs, ranging from 12 months to all on record, depending upon the facility. Vital Sign Value Date Comments Source SYSTOLIC BLOOD PRESSURE 148 05/20/2024 13:02:35 [facility] DIASTOLIC BLOOD PRESSURE 89 05/20/2024 13:02:35 [facility] PULSE OXIMETRY 98 05/20/2024 13:02:35 [facility] WEIGHT 265.1 05/20/2024 13:02:35 [facility] BMI 33 kg/m2 05/20/2024 13:02:35 [facility] PAIN 7 05/20/2024 13:02:35 [facility] TEMPERATURE 98.1 05/20/2024 13:02:35 [facility] PULSE 64 05/20/2024 13:02:35 [facility] RESPIRATION 20 05/20/2024 13:02:35 [facility] SYSTOLIC BLOOD PRESSURE 137 04/08/2024 14:39:23 [facility] DIASTOLIC BLOOD PRESSURE 83 04/08/2024 14:39:23 [facility] PULSE OXIMETRY 94 04/08/2024 14:39:23 [facility] WEIGHT 270 04/08/2024 14:39:23 [facility] BMI 34 kg/m2 04/08/2024 14:39:23 [facility] PAIN 6 04/08/2024 14:39:23 [facility] TEMPERATURE 98.1 04/08/2024 14:39:23 [facility] PULSE 62 04/08/2024 14:39:23 [facility] RESPIRATION 20 04/08/2024 14:39:23 [facility] SYSTOLIC BLOOD PRESSURE 129 12/19/2023 14:51:49 [facility] DIASTOLIC BLOOD PRESSURE 76 12/19/2023 14:51:49 [facility] PULSE OXIMETRY 95 12/19/2023 14:51:49 [facility] WEIGHT 263.7 12/19/2023 14:51:49 [facility] BMI 33 kg/m2 12/19/2023 14:51:49 . Zoraida [facility] PAIN 0 12/19/2023 14:51:49 [facility] Zoraida [facility] TEMPERATURE 98.3 12/19/2023 14:51:49 [facility] PULSE 77 12/19/2023 14:51:49 [facility]ida [facility] RESPIRATION 20 12/19/2023 14:51:49 [facility] SYSTOLIC BLOOD PRESSURE 102 10/10/2023 13:43:47 [facility] DIASTOLIC BLOOD PRESSURE 68 10/10/2023 13:43:47 [facility] PULSE OXIMETRY 93 10/10/2023 13:43:47 S Jono [facility] WEIGHT 260.6 10/10/2023 13:43:47 [facility] BMI 33 kg/m2 10/10/2023 13:43:47 [facility] PAIN 0 10/10/2023 13:43:47 [facility] Zoraida [facility] TEMPERATURE 97.7 10/10/2023 13:43:47 [facility] PULSE 62 10/10/2023 13:43:47 [facility] Zoraida [facility] RESPIRATION 16 10/10/2023 13:43:47 [facility] SYSTOLIC BLOOD PRESSURE 134 09/18/2023 13:57:35 [facility] DIASTOLIC BLOOD PRESSURE 84 09/18/2023 13:57:35 [facility] PULSE OXIMETRY 94 09/18/2023 13:57:35 S Jono [facility] WEIGHT 263.3 09/18/2023 13:57:35 [facility] BMI 33 kg/m2 09/18/2023 13:57:35 [facility] PAIN 0 09/18/2023 13:57:35 [facility] TEMPERATURE 98.1 09/18/2023 13:57:35 [facility] PULSE 63 09/18/2023 13:57:35 Viridiana [facility] RESPIRATION 20 09/18/2023 13:57:35 [facility] Encounters Combined list of: 1) Encounters from Department of [facility] Affairs facilities going backup to the last 18 months, not all VA inpatient encounters are included; 2) Encounters from the Department of [facility] facilities going backup to 280 months. Location Location Details Encounter Type Encounter Number Reason For Visit Attending Provider ADM Date DC Date Status Disposition Source [facility] Outpatient Encounter [id number] PABLITO DAVIS 02/08 [facility] OFFICE O/P EST MOD 30-39 MIN [id number] Diagnos is: ICD-10- CM J44.9 Chronic obstruc tive pulmona ry disease , unspeci Ellis Darby 02/08 [facility] OFFICE O/P EST MOD 30-39 MIN [id number] Diagnos is: ICD-10- CM Z68.32 Body mass index [BMI] 32.0-32 .9, adult Bessie GARCIA 02/15 [facility] Outpatient Encounter [id number] 03/05 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 OFFICE O/P EST MOD 30 MIN [id number] Diagnos is: ICD-10- CM J44.9 Chronic obstruc tive pulmona ry disease , unspeci fied OSWALDORYNEEllis Rainey NDREA 08/29 [facility] Outpatient Encounter [id number] 09/01 [facility] Outpatient Encounter [id number] 09/04 [facility] OFFICE O/P EST MOD 30 MIN [id number] Diagnos is: ICD-10- CM Z72.0 Tobacco use AMI SUTHERLANDSyeda GARCIA A 09/09 [facility] Outpatient Encounter [id number] 09/09 [facility] Outpatient Encounter [id number] YANNA HILLMAN 09/10 [facility] Outpatient Encounter [id number] Winter DIAS A 09/10 [facility] Outpatient Encounter [id number] 09/17 [facility] IMG RTA DETCJ/MNTR DS STAFF [id number] Diagnos is: ICD-10- CM Z13.5 Encount er for screeni ng for eye and ear disorde ELIU Tsai 09/17 [facility] Outpatient Encounter [id number] Diagnos is: ICD-10- CM Z13.5 Encount er for screeni ng for eye and ear disorde rs Emely SURESH 09/17 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 DIVISION CPTR OPHTH DX IMG POST SEGMT [id number] Diagnos is: ICD-10- CM H34.211 Partial retinal artery occlusi on, right eye LYNN WOODRUFF TTHEW C 09/17 [facility] DIVISION OFFICE O/P EST MOD 30 MIN [id number] Diagnos is: ICD-10- CM R06.00 Dyspnea , unspeci fied OU,JIAFU 10/09 [facility] OFFICE O/P EST MOD 30 MIN [id number] Diagnos is: ICD-10- CM H34.211 Partial retinal artery occlusi on, right eye ABHINAV DUQUE 10/21 [facility] FUNDUS PHOTOGRAPH Y W/I&R [id number] Diagnos is: ICD-10- CM H35.9 Unspeci fied retinal disorde r JAMAR SMITH 10/21 [facility] OFF/OP CNSLTJ NEW/EST LOW 30 [id number] Diagnos is: ICD-10- CM Z86.010 Persona l history of colonic polyps Emely BRANDT 10/23 [facility] Outpatient Encounter [id number] 11/07 [facility] Outpatient Encounter [id number] 11/08 [facility] OFFICE O/P EST LOW 20 MIN [id number] Diagnos is: ICD-10- CM F17.210 Nicotin e depende nce, cigaret shara, uncompl icated HAU SUTHERLAND A 11/11 [facility] Outpatient Encounter [id number] 11/12 [facility] Outpatient Encounter [id number] 11/13 [facility] ACUPUNCT W/O STIMUL 15 MIN [id number] Diagnos is: ICD-10- CM F17.200 Nicotin e depende nce, unspeci fied, uncompl icated MYRTLE KAY 11/20 [facility] [id number] Diagnos is: ICD-10- CM Z71.89 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 ed drug and alcohol counselor ing RENETTA BLACK 12/11 [facility] Outpatient Encounter [id number] 12/16 [facility] OFFICE O/P EST MOD 30 MIN [id number] Diagnos is: ICD-10- CM I63.9 Cerebra l infarct ion, unspeci fied OU,JIAOBEY 12/18 [facility] Outpatient Encounter [id number] 12/19 [facility] Outpatient Encounter [id number] TYLERELSI N 12/22 [facility] Outpatient Encounter [id number] TERESEELSI ROLLE N 12/22 [facility] ACUPUNCT W/O STIMUL 15 MIN [id number] Diagnos is: ICD-10- CM Z72.0 Tobacco use MYRTLE KAY 12/25 [facility] Outpatient Encounter [id number] 12/30 [facility] ACUPUNCT W/O STIMUL 15 MIN [id number] Diagnos is: ICD-10- CM Z72.0 Tobacco use MYRTLE KAY 01/01 [facility] MYOCRD STRAIN IMG SPCKL TRCK [id number] [id number] Diagnos is: ICD-10- CM 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 OFFICE O/P EST SF 10 MIN [id number] Diagnos is: ICD-10- CM K63.5 Polyp of colon LYNN LEROY TTHEW H 01/21 [facility] Outpatient Encounter [id number] [id number] KEDAR FONTAINE A K 01/21 [facility] Outpatient Encounter [id number] [id number] ARNOLD MTZ S 01/22 [facility] Outpatient Encounter [id number] 01/23 [facility] Outpatient Encounter [id number] 03/03 [facility] Outpatient Encounter [id number] Diagnos is: ICD-10- CM J44.9 Chronic obstruc tive pulmona ry disease , unspeci fied OU,JIAFU 03/19 [facility] Outpatient Encounter [id number] Diagnos is: ICD-10- CM I63.9 Cerebra l infarct ion, unspeci fied RIZWANA CLOUD C 03/20 [facility] Outpatient Encounter [id number] OVERTURF,J ESSE A 03/30 [facility] DIV[facility] OFFICE O/P EST MOD 30 MIN [id number] Diagnos is: ICD-10- CM J44.9 Chronic obstruc tive pulmona ry disease , unspeci fied Bessie GARCIA 04/08 [facility] Outpatient Encounter [id number] 04/10 [facility] Outpatient Encounter [id number] Diagnos is: ICD-10- CM I63.9 Cerebra l infarct ion, unspeci fied RIZWANA CLOUD C 04/16 [facility] Outpatient Encounter [id number] Bessie GARCIA HERE 04/16 [facility] Outpatient Encounter [id number] 04/16 [facility] Outpatient Encounter [id number] 05/11 [facility] REM INTERROG DEV EVAL SCRMS [id number] Diagnos is: ICD-10- CM G46.4 Cerebel lar stroke syndrom e RIZWANA CLOUD IL C 05/11 [facility] Outpatient Encounter [id number] 05/13 [facility] Outpatient Encounter [id number] 05/14 [facility] Outpatient Encounter [id number] 05/18 [facility] Outpatient Encounter [id number] Bessie GARCIA 05/19 [facility] Outpatient Encounter [id number] 05/19 [facility] DIV[facility] OFFICE O/P EST MOD 30 MIN [id number] Diagnos is: ICD-10- CM I48.0 Paroxys mal atrial fibrill ation Bessie GARCIA HERE 05/20 [facility] QNHP OL DIG ASSMT&MGMT 5-10 [id number] Diagnos is: ICD-10- CM I48.91 Unspeci fied atrial fibrill ation ROSEANNE VIZCARRA 05/20 [facility] Outpatient Encounter [id number] 05/20 [facility] Outpatient Encounter [id number] Diagnos is: ICD-10- CM I48.0 Paroxys mal atrial fibrill ation JACOBO TELLO 05/21 [facility] Outpatient Encounter [id number] 05/21 [facility] Outpatient Encounter [id number] Diagnos is: ICD-10- CM G46.4 Cerebel lar stroke syndrom e CINDY SMILEY 05/22 [facility] Outpatient Encounter [id number] ZULEMA MORRISON ANY N 05/22 [facility] Outpatient Encounter [id number] 05/25 [facility] Outpatient Encounter [id number] 05/25 [facility] Outpatient Encounter [id number] 06/05 [facility] Outpatient Encounter [id number] ZULEMA MORRISON ANY N 06/05 [facility] Outpatient Encounter [id number] 06/09 [facility] MTMS BY PHARM [employer] 15 MIN [id number] Diagnos is: ICD-10- CM Z51.81 Encount er for therape utic drug level monitor eva MIKEOMERROSEANNE ACEVEDO M 06/15 [facility] N [facility] Outpatient Encounter [id number] MORRISONZULEMA ANY N 06/15 [facility] N [facility] MTMS BY PHARM EST 15 MIN [id number] Diagnos is: ICD-10- CM Z51.81 Encount er for therape utic drug level monitor eva MIKEOMERROSEANNE M 07/06 [facility] Social History Combined list of available smoking, tobacco, and other social history from 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 Social History Type Response Date Comment Sour e Tobacco smoking status NHIS VA-TOBACCO USE EVERY DAY CIGARETTES 04/08/2024 [facility] History of tobacco use VA-TOBACCO NEVER USED OTHER TYPE 04/08/2024 [facility] History of tobacco use VA-TOBACCO USER EVERY DAY 02/15/2023 [facility] History of tobacco use VA-TOBACCO USER EVERY DAY 02/19/2022 [facility] History of tobacco use VA-TOBACCO FORMER USER 10/11/2020 [facility] History of tobacco use QUIT TOBACCO IN THE LAST 12 MONTHS 02/14/2017 [facility] History of tobacco use YAKELIN TOBACCO MEDS INTERESTED 09/05/2015 [facility] History of tobacco use YAKELIN TOBACCO MEDS INTERESTED 08/24/2014 [facility] History of tobacco use YAKELIN TOBACCO MEDS INTERESTED 08/05/2013 [facility] Plan of Care List of future care activities from 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 Additional future care activities may be listed in the Assessment and Plan section. Date/Time Care Activity Care Activity Detail Facili ty 07/31/2024 AMBULATORY - MEDICINE AMBULATORY - MEDICI NE [facility] 08/28/2024 AMBULATORY - MEDICINE AMBULATORY - MEDICI NE [facility] 08/28/2024 AMBULATORY - MEDICINE AMBULATORY - MEDICI NE [facility] 07/31/2024 Laboratory - Sap Trainer ry Order CREATININE(EGFR) GREEN LI/HEP BLD/PLAS PLASMA SP [facility] 07/31/2024 Laboratory - Sap Trainer ry Order HGB,HCT,PLT BLOOD SP [facility] 07/31/2024 Laboratory - Sap Trainer ry Order ALT/SGPT GREEN LI/HEP BLD/PLAS PLASMA SP [facility] 07/31/2024 Laboratory - Sap Trainer ry Order AST/SGOT GREEN LI/HEP BLD/PLAS PLASMA SP [facility]
[2024-07-30] MEDS: OSELTAMIVIR PHOSPHATE 75 MG CAPSULE PO ×2 (12:38→22:04)
--- NOTE | 2024-07-30 13:41 | P.HP_ITS ---
H&P: HPI History of Present Illness Date/Time: 07/30/24 13:41 Chief Complaint: Shortness of Breath Narrative: 69 y/o M presents here with shortness of breath with PMH of non-small cell lung cancer (s/p R lobectomy), CVA with residual memory issues, COPD, HLD, HTN, and paroxysmal AFib. The patient presents here from home for further evaluation of shortness of breath. The patient reports onset approximately 3 days ago. Shortness of breath is accompanied by cough (nonproductive), fever, chills, body aches. He denies nausea, vomiting, diarrhea, chest pain, or abdominal pain. He has a former history of current everyday smoker - 1.5 PDD x 40 years, now only smoked 2-3 cigs per day. The patient also has a history of non-small cell lung cancer s/p right middle lobectomy, no chemo or radiation. Of note, the patient arrived 84% on room air. He was placed on 4L nasal cannula and O2 saturation crease to 94%. Currently requiring BiPAP. Initial VS at presentation: 98.4? F, HR 92, RR 34, 185/94, and 94% on 4L NC. ED workup showed: WBC 11.6, no anemia, INR 1.2, ABG showed pH of 7.318/CO2 51.5, no significant electrolyte derangements, creatinine 0.84 and GFR >60, BNP 978 0, and patient tested positive for flu A. CXR showed chronic pleural parenchymal scarring at the left lung base, no acute cardiopulmonary disease. Chest CTA showed no PE, no thoracic aortic dissection, findings consistent with pulmonary hypertension unchanged from prior, trace left-sided pleural effusion with adjacent compressive atelectasis and pleural plaques, panlobular emphysematous disease is unchanged. Review of Systems Review of Systems: All systems reviewed & are unremarkable except as noted in HPI and below PMFSH Past Medical History Medical History Colon polyp Hyperlipidemia Tobacco use Cerebrovascular accident (2013) Mild memory issues. Arthritis Non-small cell lung cancer Paroxysmal atrial fibrillation Chronic obstructive pulmonary disease Hiatal hernia Hypertension Surgical History Surgical History History of tonsillectomy History of arthroscopy of both knees History of total right hip arthroplasty History of cholecystectomy History of appendectomy History of lobectomy of lung (2020) Right middle lobectomy for treatment of cancer. History of colonoscopy with polypectomy Family History Family History Other Cerebrovascular accident HLD (hyperlipidemia) Heart disease Hypertension Kidney disorder Leukemia Lung cancer Social History Social History Social History: Surrogate medical decision maker: Es Stewart, spouse. Code status: Full code. Smoking packs per day: 0.5 Smoking cigarettes per day: 10.0 Years smoked: 50 Smoking pack-years: 25.00 Smoking status: Current every day smoker Tobacco type: cigarettes and e-cigarettes/vaping Additional smoking assessment comments: Smokes 6 to 8 cigarettes a day, previously smoked more. Alcohol intake: never Substance use: current Substance use type: marijuana Last use: 1 Do You Feel Safe in your Home?: Yes Lack of Transportation: No Lack of Food: Never True Current Housing: I Have Housing Concerned About Future Housing: No Difficulty Paying Gas/Electric Bills: No Difficulty Paying for Meds: No Currently Unemployed: No Education: Decline to Answer Difficulty w/ Childcare or Family Care: No Living arrangements: with family Occupation/Education: retired Spiritual care concerns: No Meds Home Medications and Allergies Home Medications ?Medication ?Instructions ?Recorded ?Confirmed ?Type lisinopril 20 mg tablet 20 mg PO DAILY 03/11/20 07/30/24 History rosuvastatin 20 mg tablet 20 mg PO DAILY 03/11/20 07/30/24 History zolpidem 5 mg tablet 5 mg PO HS PRN insomnia 01/09/21 07/30/24 History sildenafil 100 mg tablet (Viagra) 100 mg PO DAILY PRN Erectile 04/18/21 07/30/24 History Dysfunction umeclidinium 62.5 mcg-vilanterol 1 inh inhalation DIRECTED 04/25/21 07/30/24 History 25 mcg/actuation powdr for inhalation (Anoro Ellipta) bupropion HCl 150 mg tablet,12 hr 150 mg PO DAILY 07/23/21 07/30/24 History sustained-release aspirin 81 mg chewable tablet 81 mg PO DAILY@0800 30 days #30 11/10/22 07/30/24 Rx (Children's Aspirin) tabs metoprolol succinate 25 mg 25 mg PO QAM #30 tabs 11/10/22 07/30/24 Rx tablet,extended release 24 hr (Toprol XL) apixaban 5 mg tablet 5 mg PO BID 07/30/24 07/30/24 History Allergies Allergy/AdvReac Type Severity Reaction Status Date / Time No Known Allergies Allergy Unknown Unknown Verified 07/30/24 09:13 Vital Signs Vital Signs - 24 hr 07/30/24 09:15 07/30/24 09:19 07/30/24 09:19 Temperature 98.4 F Pulse Rate 92 97 Respiratory Rate 34 H Blood Pressure 185/94 H Pulse Oximetry 94 96 Oxygen Delivery Nasal Cannula Nasal Cannula Oxygen Flow Rate 4 4 07/30/24 09:19 07/30/24 10:33 07/30/24 11:17 Temperature Pulse Rate 88 106 H Respiratory Rate 43 H 24 H Blood Pressure 166/99 H Pulse Oximetry 98 98 98 Oxygen Delivery Nasal Cannula BiPAP Oxygen Flow Rate 4 07/30/24 12:40 07/30/24 13:32 Temperature Pulse Rate 86 83 Respiratory Rate 16 17 Blood Pressure 149/85 H 148/84 H Pulse Oximetry 99 97 Oxygen Delivery Oxygen Flow Rate Exam Const: General: comfortable and no acute distress Other: , male, nontoxic appearance HENMT: Face/Nose/Sinus: Normal nares present Mouth: Yes dry mucous membranes Other: BiPAP in place, tolerating well Eyes: General: appearance normal, both eyes and all related structures Sclera: sclerae normal Pupils: Equal, round and reactive pupils present EOM: EOMs intact bilaterally Resp: Effort & Inspection: normal respiratory effort Other: Slightly coarse expiratory wheeze, faint bibasilar crackles. Cardio: Rate: regular rate Rhythm: regular rhythm Other: S1-S2 present without murmur, rub, ectopy GI: Other: Abdomen rounded but soft, nontender. Normoactive bowel sounds in all quadrants. Skin: General skin exam: normal color and no rashes or lesions noted Wounds: no wounds Neuro: Speech: normal speech Motor exam (neuro): 5/5 motor strength present throughout Sensory Exam: normal sensation Other: A&O x4 Extrem: General: normal to inspection Psych: Mental Status: mental status grossly normal Affect: normal affect Other: Good insight and judgment, pleasant H&P: Results Labs Labs: Short CBC 07/30/24 Range/Units 09:35 WBC 11.6 H (4.5-10.0) K/mm3 Hgb 14.9 (14.0-18.0) g/dL Hct 46.8 (42.0-52.0) % Plt Count 188 (150-375) k/mm3 BMP 07/30/24 09:35 Sodium 138 Potassium 4.3 Chloride 98 Carbon Dioxide 30 BUN 11 D Creatinine 0.84 Glucose 127 H Calcium 9.3 Liver Function 07/30/24 Range/Units 09:35 Total Bilirubin 0.8 (0.2-1.3) mg/dL AST 18 (17-59) U/L ALT 19 (6-50) U/L Alkaline Phosphatase 108 (38-126) U/L Albumin 4.2 (3.5-5.1) g/dL Assessment and Plan Assessment and plan (1) Acute hypoxemic respiratory failure: Code(s): J96.01 - Acute respiratory failure with hypoxia Status: Acute Assessment and Plan: - CXR: Chronic pleural parenchymal scarring at the left lung base. No acute cardiopulmonary disease. - chest CTA: No main or proximal pulmonary embolus. No thoracic aortic dissection. Findings consistent with pulmonary hypertension, unchanged from prior. Trace left-sided pleural effusion with adjacent compressive atelectasis and pleural plaques. Panlobular emphysematous disease is unchanged. - EKG, initial: Atrial flutter/tachycardia, RBBB, baseline artifact. - viral PCR: +flu a, -flu B/RSV/COVID - WBC 11.6, hemoglobin 14.9 - ABG, initial: pH 7.318, CO2 51.5, otherwise no abnormalities - BNP 9780, last echo in 11/2022 which showed good systolic function with an EF of 60 65% and grade 2 diastolic dysfunction. See report. Update. - currently requiring BiPAP, maintain to keep O2 saturation greater than 92%. Wean as tolerated. - patient met sirs criteria, however no evidence of pneumonia on imaging. Blood cultures obtained, follow. Lactic 1.1. Starting ABX for COPD exacerbation. Suspect new/acute respiratory failure secondary to flu a, COPD exacerbation, may have possible CHF component but patient does not appear volume overloaded on exam. (2) Influenza A: Code(s): J10.1 - Influenza due to other identified influenza virus with other respiratory manifestations Status: Acute Assessment and Plan: - tested positive for influenza A on 07/30 - symptom onset: 07/27 - Tamiflu 75 mg BID - supportive care: Tylenol p.r.n. Mucinex janine DuoNeb p.r.n. Tessalon Perles p.r.n. Lozenge p.r.n. - monitor WBC/CBC - currently requiring supplemental O2 (3) Chronic obstructive pulmonary disease: Qualifiers: COPD type: COPD with acute exacerbation Qualified Code(s): J44.1 - Chronic obstructive pulmonary disease with (acute) exacerbation Code(s): J44.9 - Chronic obstructive pulmonary disease, unspecified Status: Acute Assessment and Plan: - acute on chronic - DuoNeb [facility] - prednisone 40 mg daily x5 days - patient started on ceftriaxone IV and p.o. azithromycin - continue maintenance medications (4) Hypertension: Qualifiers: Hypertension type: primary hypertension Qualified Code(s): I10 - Essential (primary) hypertension Code(s): I10 - Essential (primary) hypertension Status: Chronic Assessment and Plan: - chronic, currently 148/84 - continue home medications: Lisinopril 20 mg daily, metoprolol XL 25 mg daily - monitor Plan Diet: Heart healthy GI Prophylaxis: Not currently indicated DVT Prophylaxis: Eliquis Lines: Peripheral Code Status: Full code Quality VTE Prophylaxis VTE prophylaxis: pharmacologic ordered Hospitalist MIPS Advance Care Plan I have confirmed that the patient's Advanced Care Plan is present, code status is documented, or surrogate decision maker is listed in patient medical record.: Yes Medication Reconciliation I have utilized all available resources to obtain, update and review the patients current medications (includes all prescriptions, OTC, herbals, cannabis, and nutritional supplements).: Yes
[2024-07-30] MEDS: LACTATED RINGERS 1,000 ML 150 ML IV CONT (14:08)
[2024-07-30] MEDS: IPRATROPIUM 0.5 MG/ALBUTEROL SULFATE 2.5 MG AMPUL.NEB 3 ML INHALATION ×2 (14:16→20:05)
--- NOTE | 2024-07-30 14:39 | PC.NURSE ---
Cardiac Echo at bedside
[2024-07-30] MEDS: guaiFENesin 12 HR 600 MG TABCR PO ×2 (15:32→22:04)
--- NOTE | 2024-07-30 16:00 | ADMGEN ---
This patient, Jose Stewart, was admitted to IMU Room 210-01. Patient/family oriented to hospital policies and general routines including ID bracelet, bed and alarms, visiting hours, pain management, procedures, bathroom and other care routines, personal items, smoking policy, room service/diet, and visiting hours. Information on how to activate the Rapid Response Team has been discussed. Patient/Family are encouraged to report perceived risks to care and to ask questions if they do not understand what they are told or what they should do.
[2024-07-30] MEDS: AZITHROMYCIN 250 MG TABLET 500 MG PO (22:03)
[2024-07-30] MEDS: APIXABAN 5 MG TABLET PO (22:03)
[2024-07-31] VITALS (36 sets, daily range): BP systolic 98–171; BP diastolic 61–87; PULSE 87–115; RESP 20–47; TEMP 36.4–36.8; O2SAT 92–100
[2024-07-31] MEDS: IPRATROPIUM 0.5 MG/ALBUTEROL SULFATE 2.5 MG AMPUL.NEB 3 ML INHALATION ×7 (02:21→23:38)
[2024-07-31] MEDS: FUROSEMIDE INJ 40 MG/4 ML VIAL IV PUSH (02:22)
[2024-07-31 03:14] LABS: Basophils Percent Auto 0.2 % (0.2-1.2); Hematocrit 49.4 % (42.0-52.0); Hemoglobin 15.8 g/dL (14.0-18.0); Immature Granulocyte Absolute 0.06 K/mm3 (0.00-0.031); Immature Granulocyte Percent A 0.5 % (0-0.5); Lymphocytes Absolute Auto 1.03 K/mm3 (0.9-3.2); Lymphocytes Percent Auto 8.2 % (18.3-44.2); Mean Corpuscular Hemoglobin 32.8 pg (26-34); Mean Corpuscular Volume 102.5 fl (80-100); Mean Platelet Volume 9.8 fl (7.4-10.4); Monocytes Absolute Auto 1.3 K/mm3 (0.1-0.6); Monocytes Percent Auto 10.2 % (2.6-8.5); Neutrophils Absolute Auto 10.1 K/mm3 (1.3-6.7); Neutrophils Percent Auto 80.9 % (45.5-73.1); Platelet Count Result 187 k/mm3 (150-375); Red Blood Count 4.82 M/mm3 (4.6-6.20); Red Cell Distribution Width 13.7 % (11.5-14.5); White Blood Count 12.5 K/mm3 (4.5-10.0)
[2024-07-31 03:24] LABS: Alanine Aminotransferase 20 U/L (6-50); Albumin Level 4.4 g/dL (3.5-5.1); Alkaline Phosphatase 94 U/L (38-126); Anion Gap 12 mmol/L (4-12); Aspartate Amino Transferase 22 U/L (17-59); Bilirubin,Total 0.7 mg/dL (0.2-1.3); Blood Urea Nitrogen 21 mg/dL (9-20); Calcium 9.4 mg/dL (8.4-10.2); Carbon Dioxide 31 mmol/L (22-30); Chloride 97 mmol/L (98-107); Estimated CRCL calculation 101 ml/min; Estimated Glomerular Filt Rate > 60; Glucose 106 mg/dL (65-110); Magnesium 2.1 mg/dL (1.6-2.3); Potassium 4.6 mmol/L (3.4-5.0); Sodium 140 mmol/L (137-145)
[2024-07-31 03:24] LABS: Fractional Inspired Oxygen 21 %; PCO2 VBG 57.2 mmHg (42.0-48.0); PO2 VBG 57.2 mmHg (35.0-45.0); pH VBG 7.365 (7.300-7.400)
[2024-07-31 03:27] LABS: Device ROOM AIR
[2024-07-31 06:43] LABS: Alveolar/Arterial O2 Gradient 91.1 mmHg; Base Excess ABG 5.8 mEq/l (+/-2.0); Fractional Inspired Oxygen 32 %; HCO3 ABG 33.6 mEq/l (22.0-26.0); Oxygen Content ABG 21.6 %vol (16.0-22.0); Oxyhemoglobin 92.7 % THb (90.0-100.0); PO2 ABG 66.3 mmHg (80.0-100.0); PO2 FiO2 Ratio Arterial Blood 2.07 %; Total Hemoglobin 16.6 g/dL (12.0-18.0); pH ABG 7.362 (7.350-7.450)
[2024-07-31 06:44] LABS: Device NASAL CANNULA; PCO2 ABG 60.5 mmHg (35.0-45.0); Site Drawn RIGHT BRACHIAL
[2024-07-31] MEDS: FUROSEMIDE INJ 40 MG/4 ML VIAL 20 MG IM (07:01)
[2024-07-31] MEDS: OSELTAMIVIR PHOSPHATE 75 MG CAPSULE PO ×2 (09:28→23:12)
[2024-07-31] MEDS: guaiFENesin 12 HR 600 MG TABCR PO ×2 (09:28→23:12)
[2024-07-31] MEDS: APIXABAN 5 MG TABLET PO ×2 (09:28→23:12)
[2024-07-31] MEDS: ASPIRIN 81 MG CHEWABLE TABLET PO (09:28)
[2024-07-31] MEDS: lisinopriL 20 MG TABLET PO (09:29)
[2024-07-31] MEDS: predniSONE 20 MG TABLET 40 MG PO (09:29)
[2024-07-31] MEDS: buPROPion HCL SR (12 HR) 150 MG TAB PO (09:29)
[2024-07-31] MEDS: AZITHROMYCIN 250 MG TABLET PO (09:29)
[2024-07-31] MEDS: ROSUVASTATIN 20 MG TABLET PO (09:29)
[2024-07-31] MEDS: METOPROLOL SUCCINATE EXT REL 25 MG TABCR PO (09:30)
--- NOTE | 2024-07-31 13:59 | PC.NURSE ---
On 07/31/24, the student, [Hortencia Goldberg], provided care and completed [facility] documentation on this patient. I have reviewed the student's documentation and agree with the findings.
--- NOTE | 2024-07-31 16:04 | P.PNIM_ITS ---
Progress Note: A&P Assessment and Plan (1) Acute hypoxemic respiratory failure: Code(s): J96.01 - Acute respiratory failure with hypoxia Status: Acute Assessment and Plan: Patient presents with SOB and found to have acute respiratory failure with hypxia and hypercarbia. CXR shows chronic pleural parenchymal scarring at the left lung base. No acute cardiopulmonary disease. CTA chest showing no main or proximal pulmonary embolus, no thoracic aortic dissection but findings consistent with pulmonary HTN that are unchanged from prior. Trace left-sided pleural effusion with adjacent compressive atelectasis and pleural plaques noted. Panlobular emphysematous disease is unchanged. EKG showing Atrial flutter/tachycardia (rate 92), RBBB, baseline artifact. Influenza A positive. COVID, influenza B and RSV PCR negative. ABG 7.32/51.5/88 on 4L. BNP 9780. Echo in 11/2022 with EF 60-65% and grade 2 diastolic dysfunction. Patient required BiPAP with improvement. Repeat ABG showed worsening pCO2 but pH normal. Suspect new/acute respiratory failure secondary to influenza A, COPD exacerbation and possible CHF component Weaned to nasal cannula. Continue to wean o2 as tolerated (2) Influenza A: Code(s): J10.1 - Influenza due to other identified influenza virus with other respiratory manifestations Status: Acute Assessment and Plan: As above. Patient met SIRS criteria but no evidence of bacterial source of infection. Tamiflu 75 mg BID started. Continue supportive care: (3) Chronic obstructive pulmonary disease: Qualifiers: COPD type: COPD with acute exacerbation Qualified Code(s): J44.1 - Chronic obstructive pulmonary disease with (acute) exacerbation Code(s): J44.9 - Chronic obstructive pulmonary disease, unspecified Status: Acute Assessment and Plan: Acute on chronic COPD exacerbation. 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 Prednisone 40 mg daily x5 days Sputum and Blood cultures obtained. Starting ABX for COPD exacerbation given productive cough. Continue ceftriaxone IV and p.o. azithromycin Continue Anoro (4) Hypertension: Qualifiers: Hypertension type: primary hypertension Qualified Code(s): I10 - Essential (primary) hypertension Code(s): I10 - Essential (primary) hypertension Status: Chronic Assessment and Plan: Patient's blood pressure was reviewed on 07/31 Blood pressure remains better controlled. Will continue to monitor (5) Paroxysmal atrial fibrillation: Code(s): I48.0 - Paroxysmal atrial fibrillation Status: Acute Assessment and Plan: Patient with chronic (?) Aflutter. EKG showing aflutter with controlled rate Tele also showing aflutter. Continue metoprolol Continue Eliquis. Monitor on tele. Followup on Echo results. (6) Tobacco abuse: Code(s): Z72.0 - Tobacco use Status: Acute Assessment and Plan: Smoking cessation is a must. Plan DVT Prophylaxis: Eliquis Code Status: Full code Subjective Date/time seen: 07/31/24 16:04 Interval history: 69yo male with hx of non-small cell lung cancer (s/p R lobectomy), CVA with residual memory issues, COPD, HLD, HTN, and paroxysmal AFib who is here with shortness of breath Patient does not wear oxygen at home. He has never been intubated. He still having wheezing. Shortness of breath is better today. Cough is productive green sputum. No chest pain or palpitations. Exam Narrative: AF 97.5 105/70 100 26 95% 3L Gen - NARD Chest - expiratory rhonchi with end expiratory wheeze. CV - RRR S1/S2 Abd - Soft, NT/ND, Positive BS Ext - No pedal edema Psych - Nml mood and affect Skin - Warm and dry Objective Data Vital Signs Vital Signs: Vital Signs - 24 hr 07/30/24 16:25 07/30/24 16:26 07/30/24 17:00 Temperature Pulse Rate 86 Respiratory Rate 32 H Blood Pressure Pulse Oximetry 98 98 95 Oxygen Delivery BiPAP BiPAP Nasal Cannula Oxygen Flow Rate 4 Fraction of Inspired Oxygen 40 07/30/24 17:00 07/30/24 18:00 07/30/24 20:00 Temperature Pulse Rate 112 H Respiratory Rate Blood Pressure Pulse Oximetry 95 96 Oxygen Delivery Nasal Cannula BiPAP Oxygen Flow Rate 4 Fraction of Inspired Oxygen 40 07/30/24 20:00 07/30/24 20:05 07/30/24 20:11 Temperature 97.6 F Pulse Rate 82 90 85 Respiratory Rate 40 H 22 H Blood Pressure 163/97 H Pulse Oximetry 97 Oxygen Delivery Oxygen Flow Rate Fraction of Inspired Oxygen 07/30/24 20:15 07/30/24 20:20 07/30/24 22:00 Temperature Pulse Rate 90 88 98 Respiratory Rate 41 H 40 H Blood Pressure Pulse Oximetry 96 Oxygen Delivery BiPAP Oxygen Flow Rate Fraction of Inspired Oxygen 07/30/24 23:30 07/30/24 23:48 07/31/24 00:00 Temperature 97.7 F Pulse Rate 84 84 Respiratory Rate 47 H 22 H Blood Pressure 155/90 H Pulse Oximetry 97 96 96 Oxygen Delivery BiPAP BiPAP Oxygen Flow Rate Fraction of Inspired Oxygen 35 07/31/24 00:00 07/31/24 02:00 07/31/24 02:00 Temperature Pulse Rate 88 87 Respiratory Rate Blood Pressure Pulse Oximetry 98 Oxygen Delivery BiPAP Oxygen Flow Rate Fraction of Inspired Oxygen 35 07/31/24 02:05 07/31/24 02:21 07/31/24 02:35 Temperature Pulse Rate 95 90 Respiratory Rate 43 H 47 H Blood Pressure Pulse Oximetry 97 97 Oxygen Delivery BiPAP Nasal Cannula Oxygen Flow Rate 3 Fraction of Inspired Oxygen 07/31/24 02:45 07/31/24 02:48 07/31/24 03:15 Temperature 97.7 F Pulse Rate 96 110 H Respiratory Rate 31 H 22 H Blood Pressure 171/81 H Pulse Oximetry 97 92 Oxygen Delivery Nasal Cannula Oxygen Flow Rate 3 Fraction of Inspired Oxygen 07/31/24 04:00 07/31/24 04:00 07/31/24 05:15 Temperature Pulse Rate 105 H 93 Respiratory Rate 28 H Blood Pressure Pulse Oximetry 94 Oxygen Delivery Nasal Cannula Oxygen Flow Rate 3 Fraction of Inspired Oxygen 07/31/24 06:00 07/31/24 08:00 07/31/24 09:30 Temperature 97.6 F Pulse Rate 93 95 110 H Respiratory Rate 30 H Blood Pressure 161/87 H Pulse Oximetry 96 Oxygen Delivery Oxygen Flow Rate Fraction of Inspired Oxygen 07/31/24 09:45 07/31/24 10:00 07/31/24 10:00 Temperature Pulse Rate 110 H Respiratory Rate 22 H Blood Pressure Pulse Oximetry 96 95 Oxygen Delivery Nasal Cannula Nasal Cannula Oxygen Flow Rate 3 3 Fraction of Inspired Oxygen 07/31/24 10:12 07/31/24 12:00 07/31/24 12:35 Temperature 97.7 F Pulse Rate 113 H 94 Respiratory Rate 22 H 26 H Blood Pressure 122/81 Pulse Oximetry 95 95 Oxygen Delivery Nasal Cannula Oxygen Flow Rate 3 Fraction of Inspired Oxygen 07/31/24 12:35 07/31/24 12:44 07/31/24 15:53 Temperature 97.5 F L Pulse Rate 104 H 103 H 100 Respiratory Rate 24 H 20 26 H Blood Pressure 105/70 Pulse Oximetry 95 Oxygen Delivery Oxygen Flow Rate Fraction of Inspired Oxygen Intake/Output Intake/Output: Intake & Output 07/28/24 07/29/24 07/30/24 07/31/24 23:59 23:59 23:59 23:59 Intake Total 420 540 Output Total 500 2820 Balance -80 -2280 Meds/Results Medications: Active Medications Generic Name Dose Route Start Last Admin Trade Name Freq PRN Reason Stop Dose Admin Acetaminophen 650 mg 07/30/24 13:58 Acetaminophen 325 Mg Tablet PO Q6H PRN Mild Pain (1-3) or Fever Albuterol/Ipratropium 3 ml 07/31/24 16:00 Ipratropium 0.5 Mg/Albuterol Sulfate 2.5 Mg Ampul.Neb 3 Ml INHALATION Q4HRT RESHMA Apixaban 5 mg 07/30/24 21:35 07/31/24 09:28 Apixaban 5 Mg Tablet PO 5 mg Q12HR RESHMA Administration Aspirin 81 mg 07/31/24 08:00 07/31/24 09:28 Aspirin 81 Mg Chewable Tablet PO 81 mg DAILY@0800 RESHMA Administration Azithromycin 250 mg 07/31/24 09:00 07/31/24 09:29 Azithromycin 250 Mg Tablet PO 08/03/24 09:01 250 mg DAILY RESHMA Administration Benzocaine 1 lozenge 07/30/24 13:58 Benzocaine/Menthol (*Bkc) 18 Ea Lozenge PO PRN PRN Sore Throat Benzonatate 100 mg 07/30/24 13:58 Benzonatate 100 Mg Capsule PO TID PRN Cough Bupropion HCl 150 mg 07/31/24 09:00 07/31/24 09:29 Bupropion Hcl Sr (12 Hr) 150 Mg Tab PO 150 mg DAILY RESHMA Administration Furosemide 20 mg 07/31/24 06:55 07/31/24 07:01 Furosemide Inj 40 Mg/4 Ml Vial IM 20 mg BID RESHMA Administration Guaifenesin 600 mg 07/30/24 14:15 07/31/24 09:28 Guaifenesin 12 Hr 600 Mg Tabcr PO 600 mg Q12HR RESHMA Administration Ceftriaxone Sodium 1 gm in 50 mls @ 100 mls/hr 07/30/24 22:00 07/30/24 22:04 Rocephin 1 Gm/Ns 50 Ml IVPB 100 mls/hr Q24H RESHMA Administration Lisinopril 20 mg 07/31/24 09:00 07/31/24 09:29 Lisinopril 20 Mg Tablet PO 20 mg DAILY RESHMA Administration Metoprolol Succinate 25 mg 07/31/24 09:00 07/31/24 09:30 Metoprolol Succinate Ext Rel 25 Mg Tabcr PO 25 mg QAM RESHMA Administration Oseltamivir Phosphate 75 mg 07/30/24 12:20 07/31/24 09:28 Oseltamivir Phosphate 75 Mg Capsule PO 08/04/24 12:19 75 mg Q12HR RESHMA Administration Perflutren Lipid Microsphere 0 ml 07/30/24 14:03 Perflutren Lipid Microspheres 1.5 Ml Vial Diluted To 10 Ml Total Volume IV PUSH 08/02/24 14:03 ONCE PRN adequate visualization Protocol Prednisone 40 mg 07/31/24 08:00 07/31/24 09:29 Prednisone 20 Mg Tablet PO 08/05/24 07:59 40 mg DAILY@0800 RESHMA Administration Rosuvastatin Calcium 20 mg 07/31/24 09:00 07/31/24 09:29 Rosuvastatin 20 Mg Tablet PO 20 mg DAILY RESHMA Administration Umeclidinium/Vilanterol 1 puff 07/31/24 08:00 07/31/24 13:30 Umeclidinium/Vilanterol 62.5-25 Mcg Ellipta INHALATION Not Given DAILYRT [facility] Zolpidem Tartrate 5 mg 07/30/24 21:22 Zolpidem Tartrate (*Crx) 5 Mg Tablet PO HS PRN insomnia Radiology Results: ITS Impressions Chest X-Ray 07/30/24 11:47 IMPRESSION: 1. Chronic pleural parenchymal scarring at the left lung base. No acute cardiopulmonary disease. Chest CTA 07/30/24 12:54 IMPRESSION: No main or proximal pulmonary embolus. No thoracic aortic dissection. Findings consistent with pulmonary hypertension, unchanged from prior. Trace left-sided pleural effusion with adjacent compressive atelectasis and pleural plaques. Panlobular emphysematous disease is unchanged. Labs Labs: Laboratory Results - last 24 hr 07/31/24 07/31/24 07/31/24 02:56 03:09 06:16 WBC 12.5 H RBC 4.82 Hgb 15.8 Hct 49.4 MCV 102.5 H MCH 32.8 MCHC 32.0 RDW 13.7 Plt Count 187 MPV 9.8 Immature Gran % (Auto) 0.5 Neut % (Auto) 80.9 H Lymph % (Auto) 8.2 L [place] % (Auto) 10.2 H Eos % (Auto) 0.0 Baso % (Auto) 0.2 Lymph # (Auto) 1.03 [place] # (Auto) 1.3 H Eos # (Auto) 0.0 Baso # (Auto) 0.0 Abs Immat Gran (auto) 0.06 H Absolute Neuts (auto) 10.1 H Absolute Nucleated RBC 0.000 Nucleated RBC % 0.0 Puncture Site Right brachial ABG pH 7.362 ABG pCO2 60.5 H* ABG pO2 66.3 L ABG PO2/FiO2 Ratio 2.07 ABG HCO3 33.6 H ABG O2 Saturation 92.0 L ABG O2 Content 21.6 ABG Base Excess 5.8 VBG pH 7.365 VBG pCO2 57.2 H VBG pO2 57.2 H VBG HCO3 32.0 H A-a Gradient 91.1 Oxyhemoglobin 92.7 Total Hemoglobin 16.6 O2 Delivery Device Room air Nasal cannula O2 Liters/Min Not Reportable 3.0 FiO2 21 32 Sodium 140 Potassium 4.6 Chloride 97 L Carbon Dioxide 31 H Anion Gap 12 BUN 21 H D Creatinine 0.86 Estim Creat Clear Calc 101 Estimated GFR > 60 Glucose 106 Calcium 9.4 Magnesium 2.1 Total Bilirubin 0.7 AST 22 ALT 20 Alkaline Phosphatase 94 Total Protein 8.0 Albumin 4.4
[2024-07-31] MEDS: FUROSEMIDE INJ 40 MG/4 ML VIAL 20 MG IV PUSH (17:40)
[2024-07-31] MEDS: BENZOCAINE/MENTHOL (*BKC) 18 EA LOZENGE 1 LOZENGE PO (23:17)
[2024-07-31] MEDS: ZOLPIDEM TARTRATE (*CRX) 5 MG TABLET PO (23:53)
[2024-08-01] VITALS (25 sets, daily range): BP systolic 96–116; BP diastolic 61–79; PULSE 85–112; RESP 20–28; TEMP 36.3–36.6; O2SAT 92–100
[2024-08-01 04:48] LABS: Basophils Percent Auto 0.4 % (0.2-1.2); Eosinophils Percent Auto 0.1 % (0-4.4); Hematocrit 50.2 % (42.0-52.0); Hemoglobin 15.9 g/dL (14.0-18.0); Immature Granulocyte Absolute 0.05 K/mm3 (0.00-0.031); Immature Granulocyte Percent A 0.5 % (0-0.5); Lymphocytes Absolute Auto 1.87 K/mm3 (0.9-3.2); Lymphocytes Percent Auto 17.3 % (18.3-44.2); Mean Corpuscular HGB Conc 31.7 g/dl (32-36); Mean Corpuscular Hemoglobin 33.1 pg (26-34); Mean Corpuscular Volume 104.6 fl (80-100); Mean Platelet Volume 10.4 fl (7.4-10.4); Monocytes Absolute Auto 1.4 K/mm3 (0.1-0.6); Monocytes Percent Auto 13.2 % (2.6-8.5); Neutrophils Absolute Auto 7.4 K/mm3 (1.3-6.7); Neutrophils Percent Auto 68.5 % (45.5-73.1); Platelet Count Result 191 k/mm3 (150-375); Red Cell Distribution Width 13.5 % (11.5-14.5); White Blood Count 10.8 K/mm3 (4.5-10.0)
[2024-08-01] MEDS: IPRATROPIUM 0.5 MG/ALBUTEROL SULFATE 2.5 MG AMPUL.NEB 3 ML INHALATION ×4 (04:57→15:09)
[2024-08-01 04:58] LABS: Albumin Level 3.8 g/dL (3.5-5.1); Anion Gap 7 mmol/L (4-12); Blood Urea Nitrogen 41 mg/dL (9-20); Calcium 9.1 mg/dL (8.4-10.2); Carbon Dioxide 38 mmol/L (22-30); Chloride 94 mmol/L (98-107); Estimated CRCL calculation 64 ml/min; Estimated Glomerular Filt Rate 51; Glucose 91 mg/dL (65-110); Magnesium 2.2 mg/dL (1.6-2.3); Phosphorus 3.9 mg/dL (2.5-4.5); Potassium 4.1 mmol/L (3.4-5.0); Sodium 139 mmol/L (137-145)
[2024-08-01] MEDS: ACETAMINOPHEN 325 MG TABLET 650 MG PO ×2 (05:01→14:40)
[2024-08-01] MEDS: predniSONE 20 MG TABLET 40 MG PO (08:20)
[2024-08-01] MEDS: ASPIRIN 81 MG CHEWABLE TABLET PO (08:20)
[2024-08-01] MEDS: APIXABAN 5 MG TABLET PO ×2 (08:20→22:00)
[2024-08-01] MEDS: guaiFENesin 12 HR 600 MG TABCR PO ×2 (08:20→22:00)
[2024-08-01] MEDS: OSELTAMIVIR PHOSPHATE 75 MG CAPSULE PO ×2 (08:20→22:00)
[2024-08-01] MEDS: buPROPion HCL SR (12 HR) 150 MG TAB PO (08:21)
[2024-08-01] MEDS: AZITHROMYCIN 250 MG TABLET PO (08:21)
[2024-08-01] MEDS: ROSUVASTATIN 20 MG TABLET PO (08:21)
[2024-08-01] MEDS: METOPROLOL SUCCINATE EXT REL 25 MG TABCR PO (08:22)
[2024-08-01] MEDS: UMECLIDINIUM/VILANTEROL 62.5-25 MCG ELLIPTA 1 PUFF INHALATION (08:25)
[2024-08-01] MEDS: BENZOCAINE/MENTHOL (*BKC) 18 EA LOZENGE 1 LOZENGE PO (08:32)
--- NOTE | 2024-08-01 08:51 | PM.IMPN ---
Progress Note: A&P Assessment and Plan (1) Acute hypoxemic respiratory failure: Code(s): J96.01 - Acute respiratory failure with hypoxia Status: Acute Assessment and Plan: Patient presents with SOB and found to have acute respiratory failure with hypxia and hypercarbia. CXR shows chronic pleural parenchymal scarring at the left lung base. No acute cardiopulmonary disease. CTA chest showing no main or proximal pulmonary embolus, no thoracic aortic dissection but findings consistent with pulmonary HTN that are unchanged from prior. Trace left-sided pleural effusion with adjacent compressive atelectasis and pleural plaques noted. Panlobular emphysematous disease is unchanged. EKG showing Atrial flutter/tachycardia (rate 92), RBBB, baseline artifact. He has known AFlutter Influenza A positive. COVID, influenza B and RSV PCR negative. ABG 7.32/51.5/88 on 4L. BNP 9780. Echo with EF 65-70%, moderate concentric LVH and grade 1 diastolic dysfunction. Patient required BiPAP with improvement. Repeat ABG showed worsening pCO2 but pH normal. Suspect new/acute respiratory failure secondary to influenza A, COPD exacerbation and possible CHF component (related to AFib?) Weaned to nasal cannula. Improved air exchange. Continue to wean o2 as tolerated (2) Influenza A: Code(s): J10.1 - Influenza due to other identified influenza virus with other respiratory manifestations Status: Acute Assessment and Plan: As above. Patient met SIRS criteria but no evidence of bacterial source of infection. Tamiflu 75 mg BID started. Continue supportive care (3) Acute kidney injury: Code(s): N17.9 - Acute kidney failure, unspecified Status: Acute Assessment and Plan: Cr jumped to 1.4 from 0.8. he was on Lasix IM/IV so possibly related to over-diuresis. Also received contrast on 07/30 so consider SABRINA. Stop Lasix. NS x1L. Hold MALLIKA inhibitor. (4) Chronic obstructive pulmonary disease: Qualifiers: COPD type: COPD with acute exacerbation Qualified Code(s): J44.1 - Chronic obstructive pulmonary disease with (acute) exacerbation Code(s): J44.9 - Chronic obstructive pulmonary disease, unspecified Status: Acute Assessment and Plan: Acute on chronic COPD exacerbation. 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 Started on abx for COPD exacerbation given productive cough. Continue abx but de-escalate. Continue Anoro (5) Paroxysmal atrial fibrillation: Code(s): I48.0 - Paroxysmal atrial fibrillation Status: Acute Assessment and Plan: Patient with chronic Aflutter by hx but previous EKGs showing normal sinus. EKG showing aflutter with controlled rate. Tele also showing aflutter. Possibly converted back to AFlutter related to above. Echo as above. Continue metoprolol. Continue Eliquis. Monitor on tele. Change to Xopenex. (6) Hypertension: Qualifiers: Hypertension type: primary hypertension Qualified Code(s): I10 - Essential (primary) hypertension Code(s): I10 - Essential (primary) hypertension Status: Chronic Assessment and Plan: Patient's blood pressure was reviewed on 08/01 Blood pressure remains better controlled. Will continue to monitor (7) Tobacco abuse: Code(s): Z72.0 - Tobacco use Status: Acute Assessment and Plan: Patient was educated about the benefits of smoking cessation. Plan DVT Prophylaxis: Eliquis Code Status: Full code Subjective Date/time seen: 08/01/24 08:51 Interval history: 69yo male with hx of non-small cell lung cancer (s/p R lobectomy), CVA with residual memory issues, COPD, HLD, HTN, and paroxysmal AFib who is here with shortness of breath Slept well. Did not wear the mask last night. No Cp or SOB. Walking in the room. No significant LEWIS. Cough is productive of clear sputum. Exam Narrative: AF 97.9 98/61 112 24 92% 2L Gen - NARD Chest - improved air exchange. End expir wheezes. CV - RRR S1/S2; Tele aflutter with one 4 beat run NSVT Abd - Soft, NT/ND, Positive BS Ext - No pedal edema. 2+ DP pulses bilaterally Psych - Nml mood and affect Skin - Warm and dry Objective Data Vital Signs Vital Signs: Vital Signs - 24 hr 07/31/24 09:30 07/31/24 09:45 07/31/24 10:00 Temperature Pulse Rate 110 H Respiratory Rate Blood Pressure Pulse Oximetry 96 95 Oxygen Delivery Nasal Cannula Nasal Cannula Oxygen Flow Rate 3 3 07/31/24 10:00 07/31/24 10:00 07/31/24 10:12 Temperature Pulse Rate 110 H 93 113 H Respiratory Rate 22 H 22 H Blood Pressure Pulse Oximetry Oxygen Delivery Oxygen Flow Rate 07/31/24 12:00 07/31/24 12:00 07/31/24 12:35 Temperature 97.7 F Pulse Rate 94 100 Respiratory Rate 26 H Blood Pressure 122/81 Pulse Oximetry 95 95 Oxygen Delivery Nasal Cannula Oxygen Flow Rate 3 07/31/24 12:35 07/31/24 12:44 07/31/24 14:00 Temperature Pulse Rate 104 H 103 H 104 H Respiratory Rate 24 H 20 Blood Pressure Pulse Oximetry Oxygen Delivery Oxygen Flow Rate 07/31/24 15:53 07/31/24 16:25 07/31/24 16:25 Temperature 97.5 F L Pulse Rate 100 99 Respiratory Rate 26 H 24 H Blood Pressure 105/70 Pulse Oximetry 95 93 Oxygen Delivery Nasal Cannula Oxygen Flow Rate 2 07/31/24 16:26 07/31/24 16:29 07/31/24 16:33 Temperature Pulse Rate 97 92 Respiratory Rate 20 20 Blood Pressure Pulse Oximetry 97 Oxygen Delivery Nasal Cannula Oxygen Flow Rate 3 07/31/24 18:00 07/31/24 19:03 07/31/24 20:00 Temperature 98.2 F Pulse Rate 96 102 H 97 Respiratory Rate 20 Blood Pressure 98/61 L Pulse Oximetry 93 Oxygen Delivery Oxygen Flow Rate 07/31/24 21:00 07/31/24 21:00 07/31/24 21:15 Temperature Pulse Rate 98 102 H 87 Respiratory Rate 20 20 20 Blood Pressure Pulse Oximetry 93 Oxygen Delivery Nasal Cannula Oxygen Flow Rate 2 07/31/24 21:23 07/31/24 22:00 07/31/24 23:25 Temperature Pulse Rate 108 H 100 Respiratory Rate 20 Blood Pressure Pulse Oximetry 94 100 Oxygen Delivery Nasal Cannula Nasal Cannula Oxygen Flow Rate 2 2 07/31/24 23:39 07/31/24 23:46 08/01/24 00:00 Temperature 97.5 F L Pulse Rate 115 H 97 100 Respiratory Rate 20 20 20 Blood Pressure 97/79 L Pulse Oximetry 100 Oxygen Delivery Oxygen Flow Rate 08/01/24 00:00 08/01/24 02:00 08/01/24 03:21 Temperature Pulse Rate 105 H 94 89 Respiratory Rate 20 Blood Pressure Pulse Oximetry 92 Oxygen Delivery Nasal Cannula Oxygen Flow Rate 2 08/01/24 04:00 08/01/24 04:00 08/01/24 04:57 Temperature 97.6 F Pulse Rate 85 89 91 Respiratory Rate 20 20 Blood Pressure 96/76 L Pulse Oximetry 92 Oxygen Delivery Oxygen Flow Rate 08/01/24 05:06 08/01/24 06:00 08/01/24 07:50 Temperature 97.9 F Pulse Rate 94 95 89 Respiratory Rate 20 20 Blood Pressure 98/61 L Pulse Oximetry 94 Oxygen Delivery Oxygen Flow Rate 08/01/24 08:22 08/01/24 08:25 08/01/24 08:25 Temperature Pulse Rate 107 H 112 H Respiratory Rate 24 H Blood Pressure Pulse Oximetry 92 Oxygen Delivery Nasal Cannula Oxygen Flow Rate 2 Intake/Output Intake/Output: Intake & Output 07/29/24 07/30/24 07/31/24 08/01/24 23:59 23:59 23:59 23:59 Intake Total 470 1030 600 Output Total 500 3400 260 Balance -30 -2370 340 Meds/Results Medications: Active Medications Generic Name Dose Route Start Last Admin Trade Name Freq PRN Reason Stop Dose Admin Acetaminophen 650 mg 07/30/24 13:58 08/01/24 05:01 Acetaminophen 325 Mg Tablet PO 650 mg Q6H PRN Administration Mild Pain (1-3) or Fever Albuterol/Ipratropium 3 ml 07/31/24 16:00 08/01/24 08:25 Ipratropium 0.5 Mg/Albuterol Sulfate 2.5 Mg Ampul.Neb 3 Ml INHALATION 3 ml Q4HRT RESHMA Administration Apixaban 5 mg 07/30/24 21:35 08/01/24 08:20 Apixaban 5 Mg Tablet PO 5 mg Q12HR RESHMA Administration Aspirin 81 mg 07/31/24 08:00 08/01/24 08:20 Aspirin 81 Mg Chewable Tablet PO 81 mg DAILY@0800 RESHMA Administration Azithromycin 250 mg 07/31/24 09:00 08/01/24 08:21 Azithromycin 250 Mg Tablet PO 08/03/24 09:01 250 mg DAILY RESHMA Administration Benzocaine 1 lozenge 07/30/24 13:58 08/01/24 08:32 Benzocaine/Menthol (*Bkc) 18 Ea Lozenge PO 1 lozenge PRN PRN Administration Sore Throat Benzonatate 100 mg 07/30/24 13:58 Benzonatate 100 Mg Capsule PO TID PRN Cough Bupropion HCl 150 mg 07/31/24 09:00 08/01/24 08:21 Bupropion Hcl Sr (12 Hr) 150 Mg Tab PO 150 mg DAILY RESHMA Administration Guaifenesin 600 mg 07/30/24 14:15 08/01/24 08:20 Guaifenesin 12 Hr 600 Mg Tabcr PO 600 mg Q12HR RESHMA Administration Ceftriaxone Sodium 1 gm in 50 mls @ 100 mls/hr 07/30/24 22:00 07/31/24 23:42 Rocephin 1 Gm/Ns 50 Ml IVPB Infused Q24H RESHMA Infusion Sodium Chloride 1,000 mls @ 100 mls/hr 08/01/24 08:50 Normal Saline Iv IV CONT 08/01/24 18:49 .Q10H RESHMA Lisinopril 20 mg 07/31/24 09:00 07/31/24 09:29 Lisinopril 20 Mg Tablet PO 20 mg DAILY RESHMA Administration Metoprolol Succinate 25 mg 07/31/24 09:00 08/01/24 08:22 Metoprolol Succinate Ext Rel 25 Mg Tabcr PO 25 mg QAM RESHMA Administration Oseltamivir Phosphate 75 mg 07/30/24 12:20 08/01/24 08:20 Oseltamivir Phosphate 75 Mg Capsule PO 08/04/24 12:19 75 mg Q12HR RESHMA Administration Perflutren Lipid Microsphere 0 ml 07/30/24 14:03 Perflutren Lipid Microspheres 1.5 Ml Vial Diluted To 10 Ml Total Volume IV PUSH 08/02/24 14:03 ONCE PRN adequate visualization Protocol Prednisone 40 mg 07/31/24 08:00 08/01/24 08:20 Prednisone 20 Mg Tablet PO 08/05/24 07:59 40 mg DAILY@0800 RESHMA Administration Rosuvastatin Calcium 20 mg 07/31/24 09:00 08/01/24 08:21 Rosuvastatin 20 Mg Tablet PO 20 mg DAILY RESHMA Administration Umeclidinium/Vilanterol 1 puff 07/31/24 08:00 08/01/24 08:25 Umeclidinium/Vilanterol 62.5-25 Mcg Ellipta INHALATION 1 puff DAILYRT RESHMA Administration Zolpidem Tartrate 5 mg 07/30/24 21:22 07/31/24 23:53 Zolpidem Tartrate (*Crx) 5 Mg Tablet PO 5 mg HS PRN Administration insomnia Radiology Results: ITS Impressions Chest X-Ray 07/30/24 11:47 IMPRESSION: 1. Chronic pleural parenchymal scarring at the left lung base. No acute cardiopulmonary disease. Chest CTA 07/30/24 12:54 IMPRESSION: No main or proximal pulmonary embolus. No thoracic aortic dissection. Findings consistent with pulmonary hypertension, unchanged from prior. Trace left-sided pleural effusion with adjacent compressive atelectasis and pleural plaques. Panlobular emphysematous disease is unchanged. Labs Labs: Laboratory Results - last 24 hr 08/01/24 04:13 WBC 10.8 H RBC 4.80 Hgb 15.9 Hct 50.2 MCV 104.6 H MCH 33.1 MCHC 31.7 L RDW 13.5 Plt Count 191 MPV 10.4 Immature Gran % (Auto) 0.5 Neut % (Auto) 68.5 Lymph % (Auto) 17.3 L [place] % (Auto) 13.2 H Eos % (Auto) 0.1 Baso % (Auto) 0.4 Lymph # (Auto) 1.87 [place] # (Auto) 1.4 H Eos # (Auto) 0.0 Baso # (Auto) 0.0 Abs Immat Gran (auto) 0.05 H Absolute Neuts (auto) 7.4 H Absolute Nucleated RBC 0.000 Nucleated RBC % 0.0 Sodium 139 Potassium 4.1 Chloride 94 L Carbon Dioxide 38 H Anion Gap 7 BUN 41 H D Creatinine 1.40 H Estim Creat Clear Calc 64 Estimated GFR 51 L Glucose 91 Calcium 9.1 Phosphorus 3.9 Magnesium 2.2 Albumin 3.8
[2024-08-01] MEDS: SODIUM CHLORIDE 0.9% IV 1,000 ML 100 ML IV CONT (09:09)
[2024-08-01] MEDS: IPRATROPIUM BR 0.02% INH SOLN 0.5 MG/2.5 ML VIAL INHALATION (20:27)
[2024-08-01] MEDS: LEVALBUTEROL NEB 1.25 MG/3 ML INHALATION (20:27)
[2024-08-01] MEDS: ZOLPIDEM TARTRATE (*CRX) 5 MG TABLET PO (22:00)
[2024-08-01] MEDS: CALCIUM CARBONATE (TUMS) 500 MG (200 MG ELEMENTAL) PO (23:03)
[2024-08-02] VITALS (16 sets, daily range): BP systolic 135–137; BP diastolic 71–82; PULSE 74–98; RESP 18–20; TEMP 36.6; O2SAT 92–98
[2024-08-02] MEDS: IPRATROPIUM BR 0.02% INH SOLN 0.5 MG/2.5 ML VIAL INHALATION ×2 (02:09→14:05)
[2024-08-02] MEDS: LEVALBUTEROL NEB 1.25 MG/3 ML INHALATION ×3 (02:09→14:05)
[2024-08-02 05:05] LABS: Anion Gap 8 mmol/L (4-12); Blood Urea Nitrogen 45 mg/dL (9-20); Carbon Dioxide 32 mmol/L (22-30); Chloride 100 mmol/L (98-107); Estimated CRCL calculation 80 ml/min; Estimated Glomerular Filt Rate > 60; Glucose 90 mg/dL (65-110); Potassium 3.9 mmol/L (3.4-5.0); Sodium 140 mmol/L (137-145)
[2024-08-02] MEDS: UMECLIDINIUM/VILANTEROL 62.5-25 MCG ELLIPTA 1 PUFF INHALATION (07:49)
[2024-08-02] MEDS: OSELTAMIVIR PHOSPHATE 75 MG CAPSULE PO (08:54)
[2024-08-02] MEDS: APIXABAN 5 MG TABLET PO (08:54)
[2024-08-02] MEDS: ASPIRIN 81 MG CHEWABLE TABLET PO (08:54)
[2024-08-02] MEDS: ROSUVASTATIN 20 MG TABLET PO (08:54)
[2024-08-02] MEDS: AZITHROMYCIN 250 MG TABLET PO (08:54)
[2024-08-02] MEDS: buPROPion HCL SR (12 HR) 150 MG TAB PO (08:55)
[2024-08-02] MEDS: predniSONE 20 MG TABLET 40 MG PO (08:55)
[2024-08-02] MEDS: METOPROLOL SUCCINATE EXT REL 25 MG TABCR PO (08:55)
[2024-08-02] MEDS: guaiFENesin 12 HR 600 MG TABCR PO (08:55)
--- NOTE | 2024-08-02 15:27 | PM.DS ---
DS: Admitting Diagnosis Discharge Date 08/02/24 Admitting Diagnosis Shortness of breath DS: Discharge Diagnosis Discharge Diagnosis (1) Acute hypoxemic respiratory failure: Code(s): J96.01 - Acute respiratory failure with hypoxia Status: Acute (2) Influenza A: Code(s): J10.1 - Influenza due to other identified influenza virus with other respiratory manifestations Status: Acute (3) Acute kidney injury: Code(s): N17.9 - Acute kidney failure, unspecified Status: Acute (4) Chronic obstructive pulmonary disease: Qualifiers: COPD type: COPD with acute exacerbation Qualified Code(s): J44.1 - Chronic obstructive pulmonary disease with (acute) exacerbation Code(s): J44.9 - Chronic obstructive pulmonary disease, unspecified Status: Acute (5) Paroxysmal atrial fibrillation: Code(s): I48.0 - Paroxysmal atrial fibrillation Status: Acute (6) Hypertension: Qualifiers: Hypertension type: primary hypertension Qualified Code(s): I10 - Essential (primary) hypertension Code(s): I10 - Essential (primary) hypertension Status: Chronic (7) Tobacco abuse: Code(s): Z72.0 - Tobacco use Status: Acute DS: Summary Hospital Course Reason for hospitalization: 69yo male with hx of non-small cell lung cancer (s/p R lobectomy), CVA with residual memory issues, COPD, HLD, HTN, and paroxysmal AFib who is here with shortness of breath. Please see H&P for details. Hospital Course: Patient presents with SOB and found to have acute respiratory failure with hypoxia and hypercarbia. CXR shows chronic pleural parenchymal scarring at the left lung base. No acute cardiopulmonary disease. CTA chest showing no main or proximal pulmonary embolus, no thoracic aortic dissection but findings consistent with pulmonary HTN that are unchanged from prior. Trace left-sided pleural effusion with adjacent compressive atelectasis and pleural plaques noted. Panlobular emphysematous disease is unchanged. EKG showing Atrial flutter/tachycardia (rate 92), RBBB, baseline artifact. He has known AFlutter. Influenza A positive. COVID, influenza B and RSV PCR negative. ABG 7.32/51.5/88 on 4L. BNP 9780. Echo with EF 65-70%, moderate concentric LVH and grade 1 diastolic dysfunction. Patient required BiPAP with improvement. Repeat ABG showed worsening pCO2 but pH normalized. Suspect new/acute respiratory failure secondary to influenza A, COPD exacerbation and possible acute/chronic diastolic CHF component (related to AFib?). He did receive Lasix but he developed Lucero with Cr up to 1.4 so this was stopped. He was weaned to nasal cannula. and had clinical improvement. Patient met SIRS criteria but no evidence of bacterial source of infection. Suspect related to Influenza. Tamiflu started. BP was soft at times so Lisinopril held. He had acute on chronic COPD exacerbation. 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 Started on DuoNeb and Prednisone 40 mg daily x5 days. Sputum Cx pending, BCx NGTD. Started on abx for COPD exacerbation given productive cough. We continued Anoro. Patient with known Aflutter by hx but previous EKGs showing normal sinus so unclear if paroxysmal vs chronic. EKG showing aflutter with controlled rate. Tele also showing aflutter with controlled rate. We continued metoprolol and Eliquis. Patient was educated about the benefits of smoking cessation. He had clinical improvement. His tele did show 13b NSVT vs AFlutter with aberrancy. He was on azithromycin so this was changed to doxycycline. Home O2 evaluation showed patient did not require oxygen at home. Patient has been up ambulating to the bathroom and in the room. He overall did well and was able to be discharged home on 08/02/2024. Status at Discharge Cognitive/behavioral status at discharge: stable Time Spent with Patient Time attestation: Total time spent providing and/or coordinating discharge services: 35 minutes Time spent: Greater than 30 minutes Exam Narrative: AF 97.9 98/61 112 24 92% 2L Gen - NARD Chest - expir rhonchi and end expir wheeze CV - RRR S1/S2 Abd - Soft, NT/ND, Positive BS Ext - No pedal edema Psych - Nml mood and affect Skin - Warm and dry DS: Data Data Completed and Pending Labs on day of discharge: Labs from last 24 hours 08/02/24 04:05 Sodium 140 Potassium 3.9 Chloride 100 Carbon Dioxide 32 H Anion Gap 8 BUN 45 H Creatinine 1.08 Estim Creat Clear Calc 80 Estimated GFR > 60 Glucose 90 Calcium 9.0 Preliminary micro results at discharge 07/30/24 11:08 Sputum Culture - Preliminary Sputum 07/30/24 09:50 Blood Culture - Preliminary Blood 07/30/24 09:35 Blood Culture - Preliminary Blood Discharge Plan Discharge Attending physician on discharge: Titus Moore Discharging Clinician: Titus Moore Anticipated Discharge Date/Time: 08/02/24 15:38 Patient Disposition: Home, Self-Care Activity: as tolerated Diet: heart healthy Discharge Instructions: Stop using all products that contain tobacco or nicotine. Check blood pressure 1 to 2 times a day. Record and bring into your doctor for review. Call your doctor if your blood pressure is greater than 180/110. Please complete your antibiotic course even if you are starting to feel well. Take precautions to avoid falls. Rise slowly from a lying or sitting position. Pause before standing or walking. Check daily morning weights after voiding. Call your doctor if you gain more than 3 lb in 2 days or 5 lb in 1 week. Contact your doctor or call 911 and come to the Emergency Room if you have fevers, lightheadedness with standing or other worrisome symptoms. Avoid NSAIDs (ibuprofen, naproxen, Aleve). Tylenol is safe to take. Follow-up with your primary care provider in 1-2 weeks. Please call for appointment. Follow-up with your Wheel And Caster Repairer in 2-3 weeks. Please call for an appointment. Thank you for using [facility] for your health care needs. Patient Instructions: Antibiotic Form, Apixaban (By mouth) Patient Language: Yakut Stand Alone Forms: General Discharge Information Follow-up/Referrals: Neymar Fuentes MD [Primary Care Provider] - Call for Appointment Discharge Medications: New prednisone 20 mg Tablet 40 mg PO DAILY@0800 2 Days Qty: 4 0RF doxycycline hyclate 100 mg Tablet 100 mg PO Q12HR Qty: 2 0RF Rx Instructions: Start on 08/03/2024 oseltamivir [Tamiflu] 75 mg Capsule 75 mg PO Q12HR Qty: 3 0RF amoxicillin-pot clavulanate 875-125 mg tablet 1 tablet PO Q12H Qty: 8 0RF Continued Anoro Ellipta 62.5-25 mcg/actuation blister with device 1 inh INHALATION DIRECTED bupropion HCl 150 mg tablet sustained-release 12 hr 150 mg PO DAILY sildenafil [Viagra] 100 mg Tablet 100 mg PO DAILY PRN (Reason: Erectile Dysfunction) aspirin [Children's Aspirin] 81 mg Tablet,Chewable 81 mg PO DAILY@0800 30 Days Qty: 30 0RF metoprolol succinate [Toprol XL] 25 mg Tablet Extended Release 24 Hr 25 mg PO QAM Qty: 30 0RF rosuvastatin 20 mg tablet 20 mg PO DAILY zolpidem 5 mg tablet 5 mg PO HS PRN (Reason: insomnia) apixaban 5 mg tablet 5 mg PO BID Held lisinopril 20 mg tablet 20 mg PO DAILY Hold Instructions: HOLD - Resume when okay with your doctor. Date of admission: 07/30/24 15:01 Primary Care Provider: Neymar Fuentes Admitting Provider: Titus Moore Attending physician on admission: Titus Moore Condition: Stable Hospitalist MIPS Heart Failure (Exclusion) Patient has history of Heart Transplant or Left Ventricular Assistive Device?: No IF YES, STOP HERE Heart Failure (Qualifier) Patient has current or prior documentation of LVEF less than or equal to 40%, or mod/servere depressed LVSF?: No IF NO, STOP HERE
--- NOTE | 2024-08-04 08:41 | PC.NURSE ---
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 Normal oropharyngeal bonny present. Moderate growth of Moraxella Catarrhalis. Dr. Moore aware of findings.
--- NOTE | 2024-08-05 09:49 | PC.NURSE ---
Faxed sputum cx results to Dr. Fuentes.
--- NOTE | 2024-08-05 09:59 | PC.NURSE ---
Blood cx are negative. Dr. Oscar pagan.
== END 2024-08-02 16:48 | disposition home or self-care (01) | DRG 193 ==
LOC: ANHED 10:04 → ANHIMU 15:15
PROVIDERS: Emergency Medicine; Internal Medicine; Student in an Organized Health Care Education/Training Program; Admitting Provider Internal Medicine; Emergency Provider Physician Assistant; PCP Family Medicine; Visit Provider Internal Medicine
DX: J10.1 Influenza due to other identified influenza virus with other respiratory manifestations (principal); I50.33 Acute on chronic diastolic (congestive) heart failure; J96.01 Acute respiratory failure with hypoxia; N17.9 Acute kidney failure, unspecified; J44.1 Chronic obstructive pulmonary disease with (acute) exacerbation; I10 Essential (primary) hypertension; I48.0 Paroxysmal atrial fibrillation; I27.20 Pulmonary hypertension, unspecified; K44.9 Diaphragmatic hernia without obstruction or gangrene; E78.5 Hyperlipidemia, unspecified; M19.90 Unspecified osteoarthritis, unspecified site; F17.210 Nicotine dependence, cigarettes, uncomplicated; Z20.822 Contact with and (suspected) exposure to COVID-19; Z96.641 Presence of right artificial hip joint; I69.311 Memory deficit following cerebral infarction; Z79.01 Long term (current) use of anticoagulants; Z85.118 Personal history of other malignant neoplasm of bronchus and lung; Z90.2 Acquired absence of lung [part of]
CPT/HCPCS: 36415; 36600; 71045; 71275; 80048; 80053; 80069; 82375; 82803; 82805; 83050; 83605; 83735; 83880; 85018; 85025; 85610; 85730; 87040; 87070; 87205; 87637; 93005; 93306; 94002; 94618; 94640; 94660; 96361; 96365; 96366; 96375; 99285; A9270; G0378; J0696; J1940; J2919; J3475; J7030; J7120; J7512; Q9967

== ENCOUNTER 2024-09-22 13:19 | Emergency (ER) | payer OTHER, SELFPAY ==
--- NOTE | ~2024-09-22 | XR_ITS ---
XR chest 2V Ordering provider: Se Ng MD History: 69 years Male with . cp/dys . Comparison: July 30, 2024 FINDINGS: MEDIASTINUM: The cardiac silhouette is slightly enlarged. Device is projected over the left hemithora x. LUNGS: No infiltrates or pneumothorax. Prominent bronchovascular markings in the lower lobes. Underly ing emphysematous changes. Blunting of the left costophrenic angle is noted which may indicate minima l effusion versus fibrotic changes. OTHER: No free air under the diaphragm. IMPRESSION: No acute cardiopulmonary pathology. Blunting of the left costophrenic angle which may indicate fibrotic changes versus minimal effusion u nchanged from previous examination. Underlying emphysematous changes. Reviewed, dictated and finalized at location A. IMPRESSION: No acute cardiopulmonary pathology. Blunting of the left costophrenic angle which may indicate fibrotic changes rm edgardo minimal effusion unchanged from previous examination. Underlying emphysematous changes.
--- NOTE | 2024-09-22 13:20 | ECG_ITS ---
Test Date: 2024-09-22 13:28:56 Measurements Intervals [place] Rate: 76 P: 0 WI: 0 QRS: -62 QRSD: 138 T: 52 QT: 410 QTc: 463 Interpretive Statements ATRIAL FLUTTER/TACHYCARDIA VENTRICULAR PREMATURE COMPLEX RIGHT BUNDLE BRANCH BLOCK LEFT ANTERIOR FASCICULAR BLOCK ABNORMAL ECG Compared to ECG 07/30/2024 09:25:49 NO SIGNIFICANT CHANGE Electronically Signed On 09-22-2024 13:53:34 CDT by Aleksey Salas D.O.
[2024-09-22 13:29] VITALS: BP 146/95; PULSE 70; RESP 22; TEMP 36.4; O2SAT 96
[2024-09-22 13:39] LABS: Basophils Absolute Auto 0.1 K/mm3 (0.0-0.1); Basophils Percent Auto 0.5 % (0.2-1.2); Eosinophils Absolute Auto 0.1 K/mm3 (0-0.3); Immature Granulocyte Absolute 0.04 K/mm3 (0.00-0.031); Immature Granulocyte Percent A 0.4 % (0-0.5); Lymphocytes Absolute Auto 1.98 K/mm3 (0.9-3.2); Lymphocytes Percent Auto 20.1 % (18.3-44.2); Mean Corpuscular HGB Conc 31.8 g/dl (32-36); Mean Corpuscular Hemoglobin 32.3 pg (26-34); Mean Corpuscular Volume 101.4 fl (80-100); Mean Platelet Volume 10.3 fl (7.4-10.4); Monocytes Absolute Auto 0.8 K/mm3 (0.1-0.6); Monocytes Percent Auto 7.9 % (2.6-8.5); Neutrophils Absolute Auto 6.9 K/mm3 (1.3-6.7); Neutrophils Percent Auto 70.1 % (45.5-73.1); Platelet Count Result 192 k/mm3 (150-375); Red Blood Count 4.34 M/mm3 (4.6-6.20); Red Cell Distribution Width 14.1 % (11.5-14.5); White Blood Count 9.9 K/mm3 (4.5-10.0)
[2024-09-22 13:58] LABS: Alanine Aminotransferase 17 U/L (6-50); Albumin Level 3.9 g/dL (3.5-5.1); Alkaline Phosphatase 84 U/L (38-126); Anion Gap 8 mmol/L (4-12); Aspartate Amino Transferase 14 U/L (17-59); Bilirubin,Total 0.8 mg/dL (0.2-1.3); Blood Urea Nitrogen 14 mg/dL (9-20); Calcium 9.1 mg/dL (8.4-10.2); Carbon Dioxide 28 mmol/L (22-30); Chloride 105 mmol/L (98-107); Estimated CRCL calculation 81 ml/min; Estimated Glomerular Filt Rate > 60; Glucose 135 mg/dL (65-110); Lipase 41 U/L (23-300); Potassium 3.9 mmol/L (3.4-5.0); Sodium 141 mmol/L (137-145)
[2024-09-22 14:05] LABS: INR 1.3; Partial Thromboplastin Time 29.1 Seconds (22.3-36.8); Prothrombin Time 16.7 Seconds (11.1-14.7)
[2024-09-22 14:07] LABS: Troponin I 0.025 ng/mL (0.000-0.034)
[2024-09-22] MEDS: ASPIRIN 81 MG CHEWABLE TABLET 324 MG PO (14:13)
--- NOTE | 2024-09-22 14:32 | ED.GENADULT ---
HPI - General Adult General Chief complaint: Shortness of Breath/Dyspnea Stated complaint: heart, cant breath Time Seen by Provider: 09/22/24 14:04 History of Present Illness HPI narrative: This is a 69-year-old male with history of COPD CHF and AFib presenting for chest pain. Patient says this morning he developed chest pain in the center of his chest. It is sharp nonradiating and moderate intensity. Resolved on its own after 60 minutes without intervention. He has had pain like this many times in the past. No exacerbating relieving factors. Is not associated with exertion vomiting or diaphoresis. No fevers chills chest pain or difficulty breathing. Patient is currently asymptomatic and has no complaints. Related Data Home Medications ?Medication ?Instructions ?Recorded ?Confirmed ?Last Taken ?Type lisinopril 20 mg tablet 20 mg PO DAILY 03/11/20 07/30/24 07/29/24 History rosuvastatin 20 mg tablet 20 mg PO DAILY 03/11/20 07/30/24 07/29/24 History zolpidem 5 mg tablet 5 mg PO HS PRN insomnia 01/09/21 07/30/24 07/29/24 History sildenafil 100 mg tablet (Viagra) 100 mg PO DAILY PRN Erectile 04/18/21 07/30/24 07/25/24 History Dysfunction umeclidinium 62.5 mcg-vilanterol 1 inh inhalation DIRECTED 04/25/21 07/30/24 07/30/24 History 25 mcg/actuation powdr for inhalation (Anoro Ellipta) bupropion HCl 150 mg tablet,12 hr 150 mg PO DAILY 07/23/21 07/30/24 07/29/24 History sustained-release apixaban 5 mg tablet 5 mg PO BID 07/30/24 07/30/24 07/29/24 History Allergies Allergy/AdvReac Type Severity Reaction Status Date / Time No Known Allergies Allergy Unknown Unknown Verified 07/30/24 09:13 [facility] Past Medical History Medical History Colon polyp Hyperlipidemia Tobacco use Cerebrovascular accident (2013) Mild memory issues. Arthritis Non-small cell lung cancer Paroxysmal atrial fibrillation Chronic obstructive pulmonary disease Hiatal hernia Hypertension Surgical History Surgical History History of tonsillectomy History of arthroscopy of both knees History of total right hip arthroplasty History of cholecystectomy History of appendectomy History of lobectomy of lung (2020) Right middle lobectomy for treatment of cancer. History of colonoscopy with polypectomy Family History Family History Other Cerebrovascular accident HLD (hyperlipidemia) Heart disease Hypertension Kidney disorder Leukemia Lung cancer Social History Social History Social History: Surrogate medical decision maker: Es Stewart, spouse. Code status: Full code. Smoking packs per day: 0.5 Smoking cigarettes per day: 10.0 Years smoked: 50 Smoking pack-years: 25.00 Smoking status: Current every day smoker Tobacco type: cigarettes and e-cigarettes/vaping Additional smoking assessment comments: Smokes 6 to 8 cigarettes a day, previously smoked more. Alcohol intake: never Substance use: current Substance use type: marijuana Last use: 1 Do You Feel Safe in your Home?: Yes Lack of Transportation: No Lack of Food: Never True Current Housing: I Have Housing Concerned About Future Housing: No Difficulty Paying Gas/Electric Bills: No Difficulty Paying for Meds: No Currently Unemployed: No Education: Decline to Answer Difficulty w/ Childcare or Family Care: No Living arrangements: with family Occupation/Education: retired Spiritual care concerns: No Exam Narrative: APPEARANCE: No apparent distress. Head: atraumatic. EYES: EOMI, NOSE: Atraumatic NECK: Trachea midline RESPIRATORY: No increased rate of breathing, clear to auscultation CARDIOVASCULAR: RRR, no peripheral edema ABDOMINAL: Non-distended soft nontender MUSCULOSKELETAl: No obvious deformities NEURO: Alert. Moving 4/4 extremities SKIN:: Warm, dry. Normal color PSYCHIATRIC: Normal affect Course Vital Signs Vital signs: Vital Signs Temperature 97.5 F L 09/22/24 13:29 Pulse Rate 70 09/22/24 13:29 Respiratory Rate 22 H 09/22/24 13:29 Blood Pressure 146/95 H 09/22/24 13:29 Pulse Oximetry 96 09/22/24 13:29 Oxygen Delivery Room Air 09/22/24 13:29 Temperature 97.5 F L 09/22/24 13:29 Pulse Rate 76 09/22/24 15:22 Respiratory Rate 22 H 09/22/24 15:22 Blood Pressure 152/109 H 09/22/24 15:22 Pulse Oximetry 97 09/22/24 15:22 Oxygen Delivery Room Air 09/22/24 13:29 Medical Decision Making [facility] Narrative Medical decision making narrative: -Course: 69-year-old male presenting with sharp pain in the center of his chest. Symptoms have all resolved since being in the ED. His workup including laboratory studies EKG and chest x-ray were unremarkable. Troponins were flat at 0.025 x 2. Review of previous records shows that this is his baseline. He did flip into a flutter while in the emergency department. He could not feel that he was in a-flutter and does not appear to be causing him any chest pain. He is aware that he occasionally goes in a flutter and [facility] He is already on Eliquis. PE less likely due to anticoagulation. On re-evaluation patient is resting comfortably for bed and has been asymptomatic during his stay. Patient is comfortable following up his whale fisherman for further management. Discharged with return precautions. -DDX includes but is not limited to: ACS, pneumonia, pneumothorax, PE, CHF, COPD, dissection Independent EKG interpretation: Rhythm [sinus], Rate [], [place] -[normal], MA -[normal], QRS [narrow], QTC [normal], T waves -[negative for concerning inversions], ST Segments - [Negative for concerning elevations] Final interpretations: [Normal Sinus Rhythm] Vital Signs Vital Signs: Vital Signs Temperature 97.5 F L 09/22/24 13:29 Pulse Rate 70 09/22/24 13:29 Respiratory Rate 22 H 09/22/24 13:29 Blood Pressure 146/95 H 09/22/24 13:29 Pulse Oximetry 96 09/22/24 13:29 Oxygen Delivery Room Air 09/22/24 13:29 Temperature 97.5 F L 09/22/24 13:29 Pulse Rate 76 09/22/24 15:22 Respiratory Rate 22 H 09/22/24 15:22 Blood Pressure 152/109 H 09/22/24 15:22 Pulse Oximetry 97 09/22/24 15:22 Oxygen Delivery Room Air 09/22/24 13:29 Lab Data 09/22/24 13:28 09/22/24 13:28 Labs: Lab Results 09/22/24 09/22/24 Range/Units 13:28 16:12 WBC 9.9 (4.5-10.0) K/mm3 RBC 4.34 L (4.6-6.20) M/mm3 Hgb 14.0 (14.0-18.0) g/dL Hct 44.0 (42.0-52.0) % MCV 101.4 H (80-100) fl MCH 32.3 (26-34) pg MCHC 31.8 L (32-36) g/dl RDW 14.1 (11.5-14.5) % Plt Count 192 (150-375) k/mm3 MPV 10.3 (7.4-10.4) fl Immature Gran % (Auto) 0.4 (0-0.5) % Neut % (Auto) 70.1 (45.5-73.1) % Lymph % (Auto) 20.1 (18.3-44.2) % Rich % (Auto) 7.9 (2.6-8.5) % Eos % (Auto) 1.0 (0-4.4) % Baso % (Auto) 0.5 (0.2-1.2) % Lymph # (Auto) 1.98 (0.9-3.2) K/mm3 Rich # (Auto) 0.8 H (0.1-0.6) K/mm3 Eos # (Auto) 0.1 (0-0.3) K/mm3 Baso # (Auto) 0.1 (0.0-0.1) K/mm3 Abs Immat Gran (auto) 0.04 H (0.00-0.031) K/mm3 Absolute Neuts (auto) 6.9 H (1.3-6.7) K/mm3 Absolute Nucleated RBC 0.000 (0.0-0.012) K/mm3 Nucleated RBC % 0.0 (0.0-0.2) % PT 16.7 H (11.1-14.7) Seconds INR 1.3 APTT 29.1 (22.3-36.8) Seconds Sodium 141 (137-145) mmol/L Potassium 3.9 (3.4-5.0) mmol/L Chloride 105 (98-107) mmol/L Carbon Dioxide 28 (22-30) mmol/L Anion Gap 8 (4-12) mmol/L BUN 14 D (9-20) mg/dL Creatinine 1.13 (0.7-1.3) mg/dL Estim Creat Clear Calc 81 ml/min Estimated GFR > 60 (59 - ) Glucose 135 H (65-110) mg/dL Calcium 9.1 (8.4-10.2) mg/dL Total Bilirubin 0.8 (0.2-1.3) mg/dL AST 14 L (17-59) U/L ALT 17 (6-50) U/L Alkaline Phosphatase 84 (38-126) U/L Troponin I 0.025 0.025 (0.000-0.034) ng/mL Total Protein 7.0 (6.3-8.2) g/dL Albumin 3.9 (3.5-5.1) g/dL Lipase 41 (23-300) U/L Discharge Plan Discharge Clinical Impression: Chest pain Patient Disposition: Home Condition: Stable Instructions: Antibiotic Form, Chest Pain (DC) Additional Instructions: He was seen emergency department for chest pain. Your workup here was reassuring. Please follow-up with your whale fisherman at the [place]. you were occasionally in atrial flutter while in the emergency department, but it does not seem to be related to your chest pain or causing any discomfort. This can be followed by her whale fisherman. Return if you develop any new or worsening symptoms. Patient Language: Tajik Prescriptions: No Action Anoro Ellipta 62.5-25 mcg/actuation blister with device 1 inh INHALATION DIRECTED bupropion HCl 150 mg tablet sustained-release 12 hr 150 mg PO DAILY sildenafil [Viagra] 100 mg Tablet 100 mg PO DAILY PRN (Reason: Erectile Dysfunction) aspirin [Children's Aspirin] 81 mg Tablet,Chewable 81 mg PO DAILY@0800 30 Days Qty: 30 0RF metoprolol succinate [Toprol XL] 25 mg Tablet Extended Release 24 Hr 25 mg PO QAM Qty: 30 0RF lisinopril 20 mg tablet 20 mg PO DAILY rosuvastatin 20 mg tablet 20 mg PO DAILY zolpidem 5 mg tablet 5 mg PO HS PRN (Reason: insomnia) apixaban 5 mg tablet 5 mg PO BID doxycycline hyclate 100 mg Tablet 100 mg PO Q12HR Qty: 2 0RF Rx Instructions: Start on 08/03/2024 prednisone 20 mg Tablet 40 mg PO DAILY@0800 2 Days Qty: 4 0RF oseltamivir [Tamiflu] 75 mg Capsule 75 mg PO Q12HR Qty: 3 0RF amoxicillin-pot clavulanate 875-125 mg tablet 1 tablet PO Q12H Qty: 8 0RF Follow-up/Referrals: Neymar Fuentes MD [Primary Care Provider] -
--- OUTSIDE RECORDS SUMMARY | 2024-09-22 15:05 | XMS_ITS ---
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 [place] [facility] Address [address] [place] [address] Care Team Providers Care Leaflet Distributor Name Role Phone JESSICA KAY Primary Care [...] ACTIV E [place] HIGH Jun 03, 2013 [phone] JOSEPHINE DiamondROSITA SPOUSE MEDICARE (WNR) MEDICARE (M) PART A Jul 04, 2016 PART A [id number] [phone] JOSEPHINE DiamondELI PATIENT MEDICARE (WNR) MEDICARE (M) PART B Jul 04, 2016 PART B [id number] JOSEPHINE DiamondELI PATIENT MEDICARE (WNR) MEDICARE (M) PART B Jul 04, 2016 PART B [id number] RICHARDSO N,ELI PATIENT MEDICARE (WNR) MEDICARE (M) PART A Jul 04, 2016 PART A [id number] RICHARDSO N,ELI PATIENT MEDICARE (WNR) MEDICARE (M) PART A Jul 04, 2016 PART A [id number] EMMASO N,ELI PATIENT MEDICARE (WNR) MEDICARE (M) PART B Jul 04, 2016 PART B [id number] RICHARDSO N,ELI PATIENT MEDICARE (WNR) MEDICARE (M) PART A Jul 04, 2016 PART A [id number] RICHARDSO N,ELI PATIENT MEDICARE (WNR) MEDICARE (M) PART B Jul 04, 2016 PART B [id number] EMMASO N,ELI PATIENT PRIME THERAPEUTI CS RX PRESCRIPT ION RX PLAN Jun 03, 2013 [id number] [phone] EMMASO N,ELI PATIENT Selected Encounter This section includes the information on record at [place] for the Encounter. Date/Time Encounter Type Encounter Description Reason Provider Source October 22, 2023 11:06 AM FUNDUS PHOTOGRAPHY W/I&R OPTOMETRY ICD-10-CM H35.9 Unspecified retinal disorder MATTIE SMITH Redd Encounter Template Text not used by [place] Assessments - Encounter Diagnoses This section includes the primary and secondary diagnoses documented for the Encounter. Date/Time Primary/Secondary Diagnosis Diagnosis Name Provider Source October 22, 2023 11:14 AM PRIMARY Unspecified retinal disorder VIRA SMITH [facility] Plan of Treatment: Future Appointments (+ 6 months) and Future Tests (+/- 45 days) The Plan of Treatment section includes future care activities for the patient from all [place] treatmentfacilities. This section includes future appointments and future orders which are active, pending or scheduled. Future Appointments This section includes appointments that were scheduled to occur 6 months from the date of the Encounter, up to a maximum of 20 appointments. The data comes from all [place] treatment facilities. Appointment Date/Time Appointment Type Appointme nt Facility Name October 24, 2023 01:30 PM AMBULATORY - MEDICINE [facility] Nov 05, 2023 10:00 AM AMBULATORY - SURGERY [facility] Nov 12, 2023 11:00 AM AMBULATORY - MEDICINE . [facility] Nov 21, 2023 01:00 PM AMBULATORY - NONE [facility] Dec 12, 2023 02:00 PM AMBULATORY - NONE [facility] Dec 17, 2023 11:00 AM AMBULATORY - SURGERY [facility] Dec 19, 2023 01:00 PM AMBULATORY - NONE [facility] Dec 19, 2023 03:00 PM AMBULATORY - MEDICINE [facility] Dec 23, 2023 10:00 AM AMBULATORY - MEDICINE [facility] Dec 26, 2023 01:00 PM AMBULATORY - NONE [facility] Dec 31, 2023 02:00 PM AMBULATORY - NONE [facility] Jan 02, 2024 02:00 PM AMBULATORY - NONE [facility] Jan 03, 2024 01:30 PM AMBULATORY - MEDICINE [facility] Jan 09, 2024 01:00 PM AMBULATORY - NONE [facility] Jan 22, 2024 01:15 PM AMBULATORY - MEDICINE [facility] Mar 19, 2024 04:30 PM AMBULATORY - MEDICINE [facility] Apr 08, 2024 02:30 PM AMBULATORY - MEDICINE [facility] Apr 16, 2024 07:30 AM AMBULATORY - MEDICINE [facility] Social History: Smoking Status (Most current) and Tobacco Use (All prior to encounter date) This section includes the most current, and the historical, smoking and tobacco- related health factors from the [place] facility where the Encounter took place. Current Smoking Status This section includes the most current smoking, or tobacco-related health factor, from the [place] facility where the Encounter took place. Date/Time Current Smoking Status Nuria garcia Feb 15, 2023 11:00 AM VA-TOBACCO USER EVERY DAY [facility] Tobacco Use History This section includes a history of the smoking, or tobacco-related health factors, that were collected on or before the date of the Encounter. The data comes from the [place] facility where the Encounter took place. Date/Time Smoking Status/Tobacco Use Comment F acility Feb 15, 2023 11:00 AM VA-TOBACCO USE ADVICE [facility] Feb 15, 2023 11:00 AM VA-TOBACCO USE PILATES INSTRUCTOR NO [facility] Feb 15, 2023 11:00 AM VA-TOBACCO USE MED NO [facility] Feb 15, 2023 11:00 AM VA-TOBACCO USE WI 30 MIN OF WAKEUP [facility] Feb 15, 2023 11:00 AM VA-TOBACCO USER EVERY DAY [facility] Feb 19, 2022 11:30 AM VA-TOBACCO DOESNT USE WI 30 MIN WAKEUP [facility] Feb 19, 2022 11:30 AM VA-TOBACCO USE 30 YEARS OR MORE [facility] Feb 19, 2022 11:30 AM VA-TOBACCO USE ADVICE [facility] Feb 19, 2022 11:30 AM VA-TOBACCO USE PILATES INSTRUCTOR NO [facility] Feb 19, 2022 11:30 AM VA-TOBACCO USE MED NO [facility] Feb 19, 2022 11:30 AM VA-TOBACCO USER EVERY DAY [facility] October 11, 2020 10:30 AM VA-TOBACCO FORMER USER [facility] October 11, 2020 10:30 AM VA-TOBACCO QUIT < 1 YEAR [facility] Encounter Notes: All associated encounter notes This section contains the clinical notes associated to the Encounter. Date/Time Encounter Note(s) Provider Source October 22, 2023 11:06 AM OPHTHALMOLOGY NOTE : LOCAL TITLE: OPHTHALMOLOGY NOTE [facility] STANDARD TITLE: OPHTHALMOLOGY NOTE DATE OF NOTE: OCTOBER 22, 2023@11:06 ENTRY DATE: OCTOBER 22, 2023@11:06:24 AUTHOR: JAMAR SMITH EXP COSIGNER: URGENCY: STATUS: COMPLETED OCT (RNFL/MACULA/GCC) completed OU and available in Forum/ for provider review. Fundus photos obtained OU and available in Forum/ for provider review. /loreta/ LEILA MONSON District Captain Signed: 10/22/2023 11:14 JAMAR SMITH [facility]
--- OUTSIDE RECORDS SUMMARY | 2024-09-22 15:05 | XMS_ITS | Continuity of Care Document ---
Author Name 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 Name Role Phone [facility] Unavailable Unavailable Problems Combined list of problems [...] Kolb [facility] Anxiety Active Condition [facility] Asthma Active Condition [facility] Asthma (SNOMED CT [id number]) Active Condition [facility] Chronic kidney disease stage 3A Active Condition [facility] Chronic obstructive lung disease Active Condition [facility] CVA - Cerebrovascular accident Active Condition [facility] Daily headache Active Condition [facility] Deficiency of vitamin D3 Active Condition [facility] Dyspnea Active Condition [facility] Erectile dysfunction Active Condition [facility] Essential hypertension Active Condition [facility] Hepatitis C Active Condition [facility] Hepatitis C Active Condition Mar 09, 2019 Entered By: GEE HATFIELD Comment: in remission [facility] Histoplasmosis Active Condition Jul 052016 Entered By: KISHORE AGUAYO Comment: Hx. of left lower lobe wedge rescetions in the mid per notes from Dr. Mio Palencia [facility] History of cerebrovascular accident Active Condition [facility] History of colonic polyp Active Condition [facility] History of polyp of colon Active Condition [facility] History of right hip replacement Active Condition [facility] - Hyperlipidaemia Active Condition [facility] Hyperlipidemia Active Condition [facility] Hypertensive heart AND chronic kidney disease stage 3 Active Condition [facility] Knee pain (SNOMED CT [id number]) Active Condition [facility] Lung cancer Active Condition Apr 05, 2021 Entered By: WES GARCIA Comment: RLL - Lobectomy - August 2020 [facility] Multiple pulmonary nodules Active Condition [facility] Nicotine dependence Active Condition [facility] Osteoarthritis of joint of left shoulder region Active Condition [facility] PAF - Paroxysmal atrial fibrillation Active Condition [facility] Pain in right hip joint Active Condition Aug 09, 2016 Entered By: KISHORE AGUAYO Comment: 04/04/2016- right toal hip arthroplasty by Dr. Irwin Kolb [facility] Pain of left shoulder joint Active Condition [facility] Periventricular hemorrhagic venous infarct Active Condition [facility] periventricular infarction Active Condition [facility] Peyronie's disease Active Condition [facility] Prediabetes Active Condition [facility] Shoulder pain Active Condition [facility] Tobacco dependence, continuous Active Condition [facility] Tobacco use Active Condition [facility] Vitamin D deficiency Active Condition [facility] Benign essential hypertension Inactive Condition 04/05/2021 [facility] Diagnosis: ICD-10-CM I48.0 Paroxysmal atrial fibrillation Active Diagnosis [facility] Diagnosis: ICD-10-CM J44.9 Chronic obstructive pulmonary disease, unspecified Active Diagnosis [facility] Diagnosis: ICD-10-CM R06.00 Dyspnea, unspecified Active Diagnosis [facility] Diagnosis: ICD-10-CM Z51.81 Encounter for therapeutic drug level monitoring Active Diagnosis [facility] Diagnosis: ICD-10-CM J44.1 Chronic obstructive pulmonary disease w (acute) exacerbation Active Diagnosis [facility] Diagnosis: ICD-10-CM G46.4 Cerebellar stroke syndrome Active Diagnosis [facility] Diagnosis: ICD-10-CM I48.91 Unspecified atrial fibrillation Active Diagnosis [facility] Diagnosis: ICD-10-CM I63.9 Cerebral infarction, unspecified Active Diagnosis [facility] Diagnosis: ICD-10-CM K63.5 Polyp of colon Active Diagnosis [facility] Diagnosis: ICD-10-CM Z01.818 Encounter for other preprocedural examination Active Diagnosis [facility] Diagnosis: ICD-10-CM 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 RESPIR ATORY (INHAL ATION) ACTIVE 04/09/2025 [id number] MCQUAMANDA WES 2023 3 [facility] ALBUTEROL SO4 90MCG/ACTUA T (CFC-F) INHL,ORAL,8 .5GM INHALE 2 PUFFS ORAL INHALATI ON FOUR TIMES A DAY SHAKE WELL. RINSE MOUTHPIE CE FREQUENT LY TO PREVENT CLOGGING . RESPIR ATORY (INHAL ATION) DISCONT INUED 09/18/2024 [id number] [facility] 3 [facility] APIXABAN 5MG TAB TAKE ONE TABLET BY MOUTH TWICE A DAY FOR ANTICOAG ULATION ORAL ACTIVE 08/11/2025 [id number] 5 [facility] APIXABAN 5MG TAB TAKE ONE TABLET BY MOUTH TWICE A DAY FOR ANTICOAG ULATION ORAL DISCONT INUED 05/21/2025 [id number] 5 QUAID, WES 2023 60 [facility] ASPIRIN 81MG TAB,EC TAKE ONE TABLET BY MOUTH ONCE A DAY ORAL ACTIVE [facility]24 [facility] BISACODYL 5MG TAB,EC TAKE TWO TABLETS BY MOUTH ONE TIME TAKE BISACODY L TABLETS AT 4PM ON AFTERNOO N PRIOR TO TEST. CALL WITH ANY QUESTION S ABOUT THESE INSTRUCT IONS. MAIL TAKE BISACODY L TABLETS AT 4PM ON AFTERNOO N PRIOR TO TEST. CALL WITH ANY QUESTION S ABOUT THESE INSTRUCT IONS. MAIL ORAL 12/05/2023 [id number] SHARON BRANDT 2023 2 [facility] BUMETANIDE 1MG TAB TAKE ONE-HALF TABLET BY MOUTH EVERY MORNING FOR FLUID RETENTIO N (EDEMA) ORAL ACTIVE 10/02/2024 [id number] 5 MARCELOBRA NDT T 2024 4 [facility] BUMETANIDE 1MG TAB TAKE ONE-HALF TABLET BY MOUTH EVERY MORNING FOR FLUID RETENTIO N (EDEMA) ORAL DISCONT INUED 09/27/2024 [id number] 5 CLAUDIA ROBERTSON NDT T 2024 4 [facility] BUPROPION HCL 150MG 12HR TAB,SA TAKE ONE TABLET BY MOUTH ONCE A DAY FOR 3 DAYS, THEN TAKE ONE TABLET TWICE A DAY FOR SMOKING CESSATIO N. SWALLOW WHOLE - DO NOT CRUSH OR CHEW. ORAL DISCONT INUED 09/10/2024 [id number] 4 KOKOAMI A 2023 177 [facility] BUPROPION HCL 150MG 12HR TAB,SA TAKE ONE TABLET BY MOUTH TWICE A DAY FOR SMOKING CESSATIO N. SWALLOW WHOLE - DO NOT CRUSH OR CHEW. ORAL 09/10/2024 [id number] 4 AMI SUTHERLAND A 2023 180 [facility] CLOPIDOGREL BISULFATE 75MG TAB TAKE ONE TABLET BY MOUTH DAILY ORAL ACTIVE Zoraida AGUAYO 2016 [facility] HYDROCODONE 7.5MG/ACETA MINOPHEN 325MG TAB TAKE ONE TABLET BY MOUTH EVERY 4 HOURS NEEDED ORAL ACTIVE Zoraida AGUAYO 2016 [facility] HYDROXYZINE HCL 10MG *HI-ALERT* TAB TAKE 25MG BY MOUTH THREE TIMES A DAY NEEDED ORAL ACTIVE Zoraida AGUAYO 2016 [facility] LISINOPRIL 20MG TAB TAKE ONE-HALF TABLET BY MOUTH DAILY ORAL ACTIVE Zoraida AGUAYO 2016 [facility] LISINOPRIL 40MG TAB TAKE ONE-HALF TABLET BY MOUTH ONCE A DAY ORAL ACTIVE Ramiro HATFIELD 2018 [facility] Lobo METHOCARBAM OL 500MG TAB TAKE 1 TABLET BY MOUTH THREE TIMES A DAY NEEDED FOR MUSCLE SPASM ORAL ACTIVE 04/09/2025 [id number] 5 WES GARCIA 2023 90 [facility] METHOCARBAM OL 500MG TAB TAKE 1 TABLET BY MOUTH THREE TIMES A DAY NEEDED ORAL DISCONT INUED 09/18/2024 [id number] 4 GERMANIARedd WES 2023 90 [facility] METOPROLOL SUCCINATE 50MG TAB,SA TAKE ONE-HALF TABLET BY MOUTH ONCE A DAY ORAL ACTIVE SA RUMA VIZCARRA 2024 [facility] PEG-3350/EL ECTROLYTES PWDR MIX [...] TEST. READ YOUR INSTRUCT IONS!) ORAL 12/05/2023 [id number] 4 SHARON BRANDT 2023 1 [facility] POTASSIUM CHLORIDE 20MEQ TAB,SA (DISPERSIBL E) TAKE TWO TABLETS BY MOUTH ONCE A DAY FOR DESI Han SUPPLEME NTATION TAKE WITH FOOD ORAL ACTIVE 09/27/2024 [id number] CLAUDIA ROBERTSON NDT T 2024 14 [facility] PREDNISONE 10MG TAB TAKE TWO TABLETS BY MOUTH EVERY MORNING FOR 2 DAYS, THEN TAKE ONE TABLET EVERY MORNING FOR 6 DAYS, THEN TAKE ONE-HALF TABLET EVERY MORNING FOR 6 DAYS FOR COPD EXACERBA TION TAKE WITH FOOD OR MILK. ORAL ACTIVE 09/27/2024 [id number] 5 CLAUDIA ROBERTSON NDT T 2024 13 [facility] PREDNISONE 10MG TAB TAKE FIVE TABLETS BY MOUTH EVERY MORNING FOR 6 DAYS, THEN TAKE FOUR TABLETS EVERY MORNING FOR 6 DAYS, THEN TAKE THREE TABLETS EVERY MORNING FOR 6 DAYS, THEN TAKE TWO TABLETS EVERY MORNING FOR 6 DAYS, THEN TAKE ONE TABLET EVERY MORNING FOR 6 DAYS, THEN TAKE ONE-HALF TABLET EVERY MORNING FOR 6 DAYS TAKE WITH FOOD OR MILK. ORAL DISCONT INUED 09/12/2024 [id number] ANAWES PATEL 2024 93 [facility] ROSUVASTATI N CA 40MG TAB TAKE ONE-HALF TABLET BY MOUTH EVERY EVENING ORAL ACTIVE LEFTY VALLADARES HELLE L 2020 [facility] SIMETHICONE 80MG TAB,CHEW CHEW AND SWALLOW FOUR TABLETS BY MOUTH DIRECTED FOR TWO DOSES BEFORE GI PROCEDUR E ORAL 12/05/2023 [id number] 4 SHARON BRANDT 2023 8 [facility] UMECLIDINIU M 62.5MCG/SOHEILA ANTEROL 25MCG/ACTUA T INH,ORAL,30 D INHALE 1 PUFF ORAL INHALATI ON ONCE A DAY RESPIR ATORY (INHAL ATION) ACTIVE LEFTY [place]AD[place] HELLE L 2020 [facility] Allergies, Adverse Reactions, Alerts Combined list of allergies from 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 It does not include entries that were removed or entered in error. Substance Category Reaction Severity Reaction type Status Date Reported Comments Source CHANTIX Propensity to adverse reactions to drug (finding) Nightmares active 0 [facility] Immunizations Combined list of available immunizations from the 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 Immunization Series Date Given Administered By Site Reaction Lot Number CVX Code Drug Automation Controls Specialist Status Comments Source INFLUENZA, HIGH-DOSE, TRIVALENT, PF 2023 OVERTURF,BRIGITTE E A RIGHT DELTO ID [id number] A 135 complet ed [facility] COVID-19 ([facility]), MRNA, LNP-S, PF, AGUILAR-SUCROSE, 30 MCG/0.3 ML (AGES 12+ YEARS) 2023 309 complet ed HISTORICA L INFORMATI ON - FROM PATIENT'S RECALL, [facility] COVID-19 ([facility]), MRNA, LNP-S, PF, AGUILAR-SUCROSE, 30 MCG/0.3 ML (AGES 12+ YEARS) 1 2022 309 complet ed HISTORICA L INFORMATI ON - FROM PATIENT'S RECALL, [facility] INFLUENZA, UNSPECIFIED FORMULATION 2022 88 complet ed HISTORICA L INFORMATI ON - FROM PATIENT'S RECALL, [facility] INFLUENZA, UNSPECIFIED FORMULATION 2021 88 complet ed HISTORICA L INFORMATI ON - FROM PATIENT'S RECALL, [facility] COVID-19, MRNA, LNP-S, BIVALENT BOOSTER, PF, 30 MCG/0.3 ML DOSE 1 2021 300 complet ed PFR; [id number]; 3 [facility] COVID-19 ([facility]), MRNA, LNP-S, PF, 30 MCG/0.3 ML DOSE, AGUILAR-SUCROSE (AGES 12+ YEARS) 4 2021 217 complet ed [facility] ZOSTER RECOMBINANT 2 2021 187 complet ed [facility] COVID-19 ([facility]), MRNA, LNP-S, PF, 30 MCG/0.3 ML DOSE 3 2020 208 complet ed PFR; [id number]; 2 [facility] INFLUENZA, INJECTABLE, QUADRIVALENT, PRESERVATIVE FREE 2020 150 complet ed [facility] ZOSTER RECOMBINANT 1 2020 187 complet ed [facility] COVID-19 ([facility]), MRNA, LNP-S, PF, 30 MCG/0.3 ML DOSE 2 2020 208 complet ed [facility] COVID-19 ([facility]), MRNA, LNP-S, PF, 30 MCG/0.3 ML DOSE 1 2020 208 complet ed [facility] INFLUENZA, UNSPECIFIED FORMULATION 2019 88 complet ed [facility] TDAP 1 2018 115 complet ed HISTORICA L INFORMATI ON - FROM OTHER REGISTRY, [facility] INFLUENZA, UNSPECIFIED FORMULATION 2018 88 complet ed [facility] INFLUENZA, SEASONAL, INJECTABLE, PRESERVATIVE FREE 2015 140 complet ed [facility] INFLUENZA, UNSPECIFIED FORMULATION 2014 88 complet ed [facility] PNEUMOCOCCAL CONJUGATE PCV 13 2014 133 complet ed notes dated 07/25/[address] Mio Palencia [facility] PNEUMOCOCCAL CONJUGATE PCV 13 2014 133 complet ed [facility] PNEUMOCOCCAL POLYSACCHARID E PPV23 2013 33 complet ed [facility] INFLUENZA, UNSPECIFIED FORMULATION 2013 88 complet ed [facility] INFLUENZA, UNSPECIFIED FORMULATION 2013 88 complet ed [facility] PNEUMOCOCCAL POLYSACCHARID E PPV23 2012 33 complet ed [facility] ZOSTER LIVE 2012 121 complet ed [facility] ZOSTER LIVE 2009 121 complet ed [facility] Results Combined list of recent chemistry, hematology and other laboratory results from Department of Defense and Veterans Affairs, ranging from 15 months to all on record, depending upon the facility. Order Name Results Value Reference Range Date Interpretation Specimen Comments Source BASIC METABOLIC PANEL CREATININE [MASS/VOLUM E] IN SERUM OR PLASMA 1.28 mg/dL 0.7 - 1.3 09/01 Specimen Type: PLASMA Comment: No hemolysis noted. Ordering Provider: MAGO ROBERTSON Report Released Date/Time: Sep 01, 2024 12:22 PM Reporting Lab: [facility] [address] [facility] [address] Performing Lab: [facility] [address] [facility] [address] [facility] BASIC METABOLIC PANEL UREA NITROGEN [MASS/VOLUM E] IN SERUM OR PLASMA 21.6 mg/dL 9.0 - 25.0 09/01 Specimen Type: PLASMA Comment: No hemolysis noted. Ordering Provider: MAGO ROBERTSON Report Released Date/Time: Sep 01, 2024 12:22 PM Reporting Lab: [facility] [address] [place] [phone] Performing Lab: [facility] [address] [place] [phone] [facility] BASIC METABOLIC PANEL GLUCOSE [MASS/VOLUM E] IN SERUM OR PLASMA 148 mg/dL 72 - 99 09/01 H Specimen Type: PLASMA Comment: No hemolysis noted. Ordering Provider: MAGO ROBERTSON Report Released Date/Time: Sep 01, 2024 12:22 PM Reporting Lab: [address] [address] Performing Lab: [address] [address] [facility] BASIC METABOLIC PANEL SODIUM [MOLES/VOLU ME] IN SERUM OR PLASMA 141 meq/L 136 - 145 09/01 Specimen Type: PLASMA Comment: No hemolysis noted. Ordering Provider: MAGO ROBERTSON Report Released Date/Time: Sep 01, 2024 12:22 PM Reporting Lab: [address] [address] Performing Lab: [address] [phone] [facility] BASIC METABOLIC PANEL POTASSIUM [MOLES/VOLU ME] IN SERUM OR PLASMA 5.1 meq/L 3.5 - 5 09/01 H Specimen Type: PLASMA Comment: No hemolysis noted. Ordering Provider: MAGO ROBERTSON Report Released Date/Time: Sep 01, 2024 12:22 PM Reporting Lab: [address] [phone] Performing Lab: [facility] [address] [place] [phone] [facility] BASIC METABOLIC PANEL CHLORIDE [MOLES/VOLU ME] IN SERUM OR PLASMA 105 meq/L 98 - 107 09/01 Specimen Type: PLASMA Comment: No hemolysis noted. Ordering Provider: MAGO ROBERTSON Report Released Date/Time: Sep 01, 2024 12:22 PM Reporting Lab: [address] [address] Performing Lab: [facility] [address] [place] [phone] [facility] BASIC METABOLIC PANEL CARBON DIOXIDE, TOTAL [MOLES/VOLU ME] IN SERUM OR PLASMA 30 meq/L 22 - 31 09/01 Specimen Type: PLASMA Comment: No hemolysis noted. Ordering Provider: MAGO ROBERTSON Report Released Date/Time: Sep 01, 2024 12:22 PM Reporting Lab: [address] [address] Performing Lab: [address] [address] [facility] BASIC METABOLIC PANEL CALCIUM [MASS/VOLUM E] IN SERUM OR PLASMA 9.5 mg/dL 8.4 - 10.4 09/01 Specimen Type: PLASMA Comment: No hemolysis noted. Ordering Provider: MAGO ROBERTSON Report Released Date/Time: Sep 01, 2024 12:22 PM Reporting Lab: [address] [address] Performing Lab: [address] [address] [facility] BASIC METABOLIC PANEL GLOMERULAR FILTRATION RATE/1.73 SQ M.PREDICTED [VOLUME RATE/AREA] IN SERUM, PLASMA OR BLOOD BY CREATININE- BASED FORMULA (CKD-EPI 2020) 61.3 60 09/01 Specimen Type: PLASMA Comment: No hemolysis noted. Ordering Provider: MAGO ROBERTSON Report Released Date/Time: Sep 01, 2024 12:22 PM Reporting Lab: [address] [address] Performing Lab: [address] [place] [address] [facility] BRAIN NATRIURETI C PEPTIDE NATRIURETIC PEPTIDE B [MASS/VOLUM E] IN SERUM OR PLASMA 356.1 pg/mL 0 - 100 08/28 H Specimen Type: PLASMA No comment entered. Ordering Provider: MAGO ROBERTSON Report Released Date/Time: Aug 28, 2024 01:59 PM Reporting Lab: [place] [address] [facility] [address] Performing Lab: [place] [address] [facility] [address] [facility] BASIC METABOLIC PANEL CREATININE [MASS/VOLUM E] IN SERUM OR PLASMA 1.09 mg/dL 0.7 - 1.3 08/28 Specimen Type: PLASMA Comment: No hemolysis noted. Ordering Provider: MAGO ROBERTSON Report Released Date/Time: Aug 28, 2024 01:59 PM Reporting Lab: [place] [address] [facility] [address] Performing Lab: [place] [address] [facility] [address] [facility] BASIC METABOLIC PANEL UREA NITROGEN [MASS/VOLUM E] IN SERUM OR PLASMA 16.4 mg/dL 9.0 - 25.0 08/28 Specimen Type: PLASMA Comment: No hemolysis noted. Ordering Provider: MAGO ROBERTSON Report Released Date/Time: Aug 28, 2024 01:59 PM Reporting Lab: [place] [address] [facility] [address] Performing Lab: [address] [address] [facility] BASIC METABOLIC PANEL GLUCOSE [MASS/VOLUM E] IN SERUM OR PLASMA 110 mg/dL 72 - 99 08/28 H Specimen Type: PLASMA Comment: No hemolysis noted. Ordering Provider: MAGO ROBERTSON Report Released Date/Time: Aug 28, 2024 01:59 PM Reporting Lab: [place] [address] [facility] [address] Performing Lab: [facility] [address] [facility] [address] [facility] BASIC METABOLIC PANEL SODIUM [MOLES/VOLU ME] IN SERUM OR PLASMA 139 meq/L 136 - 145 08/28 Specimen Type: PLASMA Comment: No hemolysis noted. Ordering Provider: MAGO ROBERTSON Report Released Date/Time: Aug 28, 2024 01:59 PM Reporting Lab: [facility] [address] [facility] [address] Performing Lab: [facility] [address] [facility] [address] [facility] BASIC METABOLIC PANEL POTASSIUM [MOLES/VOLU ME] IN SERUM OR PLASMA 4.7 meq/L 3.5 - 5 08/28 Specimen Type: PLASMA Comment: No hemolysis noted. Ordering Provider: MAGO ROBERTSON Report Released Date/Time: Aug 28, 2024 01:59 PM Reporting Lab: [facility] [address] [facility] [address] Performing Lab: [facility] [address] [place] [phone] [facility] BASIC METABOLIC PANEL CHLORIDE [MOLES/VOLU ME] IN SERUM OR PLASMA 105 meq/L 98 - 107 08/28 Specimen Type: PLASMA Comment: No hemolysis noted. Ordering Provider: MAGO ROBERTSON Report Released Date/Time: Aug 28, 2024 01:59 PM Reporting Lab: [facility] [address] [facility] [address] Performing Lab: [facility] [address] [facility] [address] [facility] BASIC METABOLIC PANEL CARBON DIOXIDE, TOTAL [MOLES/VOLU ME] IN SERUM OR PLASMA 27 meq/L 22 - 31 08/28 Specimen Type: PLASMA Comment: No hemolysis noted. Ordering Provider: MAGO ROBERTSON Report Released Date/Time: Aug 28, 2024 01:59 PM Reporting Lab: [place] [address] [address] Performing Lab: [place] [address] [facility] [address] [facility] BASIC METABOLIC PANEL CALCIUM [MASS/VOLUM E] IN SERUM OR PLASMA 9.1 mg/dL 8.4 - 10.4 08/28 Specimen Type: PLASMA Comment: No hemolysis noted. Ordering Provider: MAGO ROBERTSON Report Released Date/Time: Aug 28, 2024 01:59 PM Reporting Lab: [address] [address] Performing Lab: [address] [phone] BASIC METABOLIC PANEL GLOMERULAR FILTRATION RATE/1.73 SQ M.PREDICTED [VOLUME RATE/AREA] IN SERUM, PLASMA OR BLOOD BY CREATININE- BASED FORMULA (CKD-EPI 2020) 74.4 60 08/28 Specimen Type: PLASMA Comment: No hemolysis noted. Ordering Provider: MAGO ROBERTSON Report Released Date/Time: Aug 28, 2024 01:59 PM Reporting Lab: [address] [address] Performing Lab: [address] [address] [facility] CBC LEUKOCYTES [#/VOLUME] IN BLOOD BY AUTOMATED COUNT 11.9 10*3/u L 3.6 - 11.2 08/28 H Specimen Type: BLOOD No comment entered. Ordering Provider: MAGO ROBERTSON Report Released Date/Time: Aug 28, 2024 01:59 PM Reporting Lab: [address] [address] Performing Lab: [address] [address] [facility] CBC ERYTHROCYTE S [#/VOLUME] IN BLOOD BY AUTOMATED COUNT 4.47 10*6/u L 4.10 - 5.70 08/28 Specimen Type: BLOOD No comment entered. Ordering Provider: MAGO ROBERTSON Report Released Date/Time: Aug 28, 2024 01:59 PM Reporting Lab: [address] [address] Performing Lab: [facility] [address] [place] [phone] [facility] CBC HEMOGLOBIN [MASS/VOLUM E] IN BLOOD 14.6 g/dL 13.1 - 16.8 08/28 Specimen Type: BLOOD No comment entered. Ordering Provider: MAGO ROBERTSON Report Released Date/Time: Aug 28, 2024 01:59 PM Reporting Lab: [place] [phone] Performing Lab: [address] [phone] [place] [address] CBC HEMATOCRIT [VOLUME FRACTION] OF BLOOD 46.5 38.2 - 48.4 08/28 Specimen Type: BLOOD No comment entered. Ordering Provider: MAGO ROBERTSON Report Released Date/Time: Aug 28, 2024 01:59 PM Reporting Lab: [address] [address] Performing Lab: [address] [address] [facility] CBC MCV [ENTITIC VOLUME] BY AUTOMATED COUNT 104.0 fL 80.0 - 100.0 08/28 H Specimen Type: BLOOD No comment entered. Ordering Provider: MAGO ROBERTSON Report Released Date/Time: Aug 28, 2024 01:59 PM Reporting Lab: [address] [address] Performing Lab: [address] [address] [facility] [facility] CBC MCH [ENTITIC MASS] BY AUTOMATED COUNT 32.7 pg 27.0 - 34.0 08/28 Specimen Type: BLOOD No comment entered. Ordering Provider: MARCELO,BRAN DT T Report Released Date/Time: Aug 28, 2024 01:59 PM Reporting Lab: [place] [address] [facility] [address] Performing Lab: [address] [phone] [facility] CBC MCHC [MASS/VOLUM E] BY AUTOMATED COUNT 31.4 g/dL 33.0 - 36.0 08/28 L Specimen Type: BLOOD No comment entered. Ordering Provider: MAGO ROBERTSON Report Released Date/Time: Aug 28, 2024 01:59 PM Reporting Lab: [place] [address] [facility] [address] Performing Lab: [place] [address] [facility] [phone] CBC PLATELETS [#/VOLUME] IN BLOOD BY AUTOMATED COUNT 171 10*3/u L 150 - 400 08/28 Specimen Type: BLOOD No comment entered. Ordering Provider: MAGO ROBERTSON Report Released Date/Time: Aug 28, 2024 01:59 PM Reporting Lab: [place] [address] [facility] [address] Performing Lab: [place] [address] [facility] [address] [facility] CBC PLATELET MEAN VOLUME [ENTITIC VOLUME] IN BLOOD BY AUTOMATED COUNT 10.2 fL 7.5 - 11.2 08/28 Specimen Type: BLOOD No comment entered. Ordering Provider: MAGO ROBERTSON Report Released Date/Time: Aug 28, 2024 01:59 PM Reporting Lab: [place] [address] [facility] [address] Performing Lab: [address] [address] [facility] CBC ERYTHROCYTE DISTRIBUTIO N WIDTH [RATIO] BY AUTOMATED COUNT 15.6 11.8 - 15.1 08/28 H Specimen Type: BLOOD No comment entered. Ordering Provider: MAGO ROBERTSON Report Released Date/Time: Aug 28, 2024 01:59 PM Reporting Lab: [facility] [address] [facility] [address] Performing Lab: [facility] [address] [facility] [address] [facility] CBC LYMPHOCYTES /100 LEUKOCYTES IN BLOOD BY AUTOMATED COUNT 11 08/28 Specimen Type: BLOOD No comment entered. Ordering Provider: MAGO ROBERTSON Report Released Date/Time: Aug 28, 2024 01:59 PM Reporting Lab: [facility] [address] [facility] [address] Performing Lab: [facility] [address] [facility] [address] [facility] CBC MONOCYTES/1 00 LEUKOCYTES IN BLOOD BY AUTOMATED COUNT 6 08/28 Specimen Type: BLOOD No comment entered. Ordering Provider: MAGO ROBERTSON Report Released Date/Time: Aug 28, 2024 01:59 PM Reporting Lab: [facility] [address] [facility] [address] Performing Lab: [facility] [address] [facility] [address] [facility] CBC NEUTROPHILS /100 LEUKOCYTES IN BLOOD BY AUTOMATED COUNT 82 08/28 Specimen Type: BLOOD No comment entered. Ordering Provider: MAGO ROBERTSON Report Released Date/Time: Aug 28, 2024 01:59 PM Reporting Lab: [facility] [address] [facility] [address] Performing Lab: [facility] [address] [facility] [address] [facility] CBC EOSINOPHILS /100 LEUKOCYTES IN BLOOD BY AUTOMATED COUNT 0 08/28 Specimen Type: BLOOD No comment entered. Ordering Provider: MAGO ROBERTSON Report Released Date/Time: Aug 28, 2024 01:59 PM Reporting Lab: [facility] [address] [facility] [address] Performing Lab: [facility] [address] [facility] [address] [facility] CBC BASOPHILS/1 00 LEUKOCYTES IN BLOOD BY AUTOMATED COUNT 0 08/28 Specimen Type: BLOOD No comment entered. Ordering Provider: MAGO ROBERTSON Report Released Date/Time: Aug 28, 2024 01:59 PM Reporting Lab: [place] [address] [facility] [address] Performing Lab: [place] [address] [facility] [address] [facility] CBC LYMPHOCYTES [#/VOLUME] IN BLOOD BY AUTOMATED COUNT 1.31 10*3/u L 0.77 - 4.50 08/28 Specimen Type: BLOOD No comment entered. Ordering Provider: MAGO ROBERTSON Report Released Date/Time: Aug 28, 2024 01:59 PM Reporting Lab: [place] [address] [facility] [address] Performing Lab: [place] [address] [facility] [address] [facility] CBC MONOCYTES [#/VOLUME] IN BLOOD BY AUTOMATED COUNT 0.73 10*3/u L 0.19 - 0.80 08/28 Specimen Type: BLOOD No comment entered. Ordering Provider: MAGO ROBERTSON Report Released Date/Time: Aug 28, 2024 01:59 PM Reporting Lab: [place] [address] [facility] [address] Performing Lab: [place] [address] [facility] [address] [facility] CBC NEUTROPHILS [#/VOLUME] IN BLOOD BY AUTOMATED COUNT 9.72 10*3/u L 2.10 - 8.00 08/28 H Specimen Type: BLOOD No comment entered. Ordering Provider: MAGO ROBERTSON Report Released Date/Time: Aug 28, 2024 01:59 PM Reporting Lab: [place] [address] [facility] [address] Performing Lab: [facility] [address] [address] [facility] CBC EOSINOPHILS [#/VOLUME] IN BLOOD BY AUTOMATED COUNT 0.04 10*3/u L 0.00 - 0.60 08/28 Specimen Type: BLOOD No comment entered. Ordering Provider: MAGO ROBERTSON Report Released Date/Time: Aug 28, 2024 01:59 PM Reporting Lab: [place] [phone] Performing Lab: [address] [address] [facility] CBC BASOPHILS [#/VOLUME] IN BLOOD BY AUTOMATED COUNT 0.04 10*3/u L 0.00 - 0.20 08/28 Specimen Type: BLOOD No comment entered. Ordering Provider: MAGO ROBERTSON Report Released Date/Time: Aug 28, 2024 01:59 PM Reporting Lab: [place] [phone] Performing Lab: [place] [phone] CREATININE (EGFR) CREATININE [MASS/VOLUM E] IN SERUM OR PLASMA 1.14 mg/dL 0.70 - 1.30 08/07 Specimen Type: PLASMA No comment entered. Ordering Provider: ROSEANNE VIZCARRA Report Released Date/Time: Jul 06, 2024 11:52 AM Reporting Lab: [facility] [place] [address] Performing Lab: [facility] [phone] [address] CREATININE (EGFR) GLOMERULAR FILTRATION RATE/1.73 SQ M.PREDICTED [VOLUME RATE/AREA] IN SERUM, PLASMA OR BLOOD BY CREATININE- BASED FORMULA (CKD-EPI 2020) 70.49 60 08/07 Specimen Type: PLASMA No comment entered. Ordering Provider: ROSEANNE VIZCARRA Report Released Date/Time: Jul 06, 2024 11:52 AM Reporting Lab: [facility] [place] [address] Performing Lab: [facility] DIVISION AST/SGOT ASPARTATE AMINOTRANSF ERASE [ENZYMATIC ACTIVITY/VO LUME] IN SERUM OR PLASMA 24 U/L 5 - 34 08/07 Specimen Type: PLASMA No comment entered. Ordering Provider: ROSEANNE VIZCARRA Report Released Date/Time: Jul 06, 2024 11:52 AM Reporting Lab: [facility] [place] [address] Performing Lab: [facility] DIVISION HGB,HCT,PL T HEMOGLOBIN [MASS/VOLUM E] IN BLOOD 14.6 g/dL 13.1 - 16.8 08/07 Specimen Type: BLOOD No comment entered. Ordering Provider: ROSEANNE VIZCARRA Report Released Date/Time: Jul 06, 2024 11:52 AM Reporting Lab: [facility] [place] [address] Performing Lab: [facility] DIVISION HGB,HCT,PL T HEMATOCRIT [VOLUME FRACTION] OF BLOOD 46.1 38.2 - 48.4 08/07 Specimen Type: BLOOD No comment entered. Ordering Provider: ROSEANNE VIZCARRA Report Released Date/Time: Jul 06, 2024 11:52 AM Reporting Lab: [facility] [place] [address] Performing Lab: [facility] DIVISION HGB,HCT,PL T PLATELETS [#/VOLUME] IN BLOOD BY AUTOMATED COUNT 257 10*3/u L 150 - 400 08/07 Specimen Type: BLOOD No comment entered. Ordering Provider: ROSEANNE VIZCARRA Report Released Date/Time: Jul 06, 2024 11:52 AM Reporting Lab: [facility] [place] [address] Performing Lab: [facility] DIVISION ALT/SGPT ALANINE AMINOTRANSF ERASE [ENZYMATIC ACTIVITY/VO LUME] IN SERUM OR PLASMA 42 U/L 8 - 40 08/07 H Specimen Type: PLASMA No comment entered. Ordering Provider: ROSEANNE VIZCARRA Report Released Date/Time: Jul 06, 2024 11:52 AM Reporting Lab: [facility] [place] [address] Performing Lab: [facility] DIVISION URINALYSIS (STL-PB) COLOR OF URINE Light- Yellow 05/20 Specimen Type: URINE No comment entered. Ordering Provider: Bessie GARCIA Report Released Date/Time: May 20, 2024 08:32 AM Reporting Lab: [facility] [place] [address] Performing Lab: [facility] DIVISION URINALYSIS (STL-PB) BILIRUBIN.T OTAL [PRESENCE] IN URINE BY TEST STRIP Negati vemg/d L 05/20 Specimen Type: URINE No comment entered. Ordering Provider: Bessie GARCIA Report Released Date/Time: May 20, 2024 08:32 AM Reporting Lab: [facility] [place] [address] Performing Lab: [facility] DIVISION URINALYSIS (STL-PB) PH OF URINE BY TEST STRIP 7.0 5.0 - 8.0 05/20 Specimen Type: URINE No comment entered. Ordering Provider: Bessie GARCIA Report Released Date/Time: May 20, 2024 08:32 AM Reporting Lab: [facility] [place] [address] Performing Lab: [facility] DIVISION URINALYSIS (STL-PB) APPEARANCE OF URINE Clear 05/20 Specimen Type: URINE No comment entered. Ordering Provider: Bessie GARCIA Report Released Date/Time: May 20, 2024 08:32 AM Reporting Lab: [facility] [place] [address] Performing Lab: [facility] [address] DIVISION URINALYSIS (STL-PB) NITRITE [PRESENCE] IN URINE BY TEST STRIP Negati vemg/d L 05/20 Specimen Type: URINE No comment entered. Ordering Provider: Bessie GARCIA Report Released Date/Time: May 20, 2024 08:32 AM Reporting Lab: [facility] [place] [address] Performing Lab: [facility] DIVISION URINALYSIS (STL-PB) GLUCOSE [MASS/VOLUM E] IN URINE BY TEST STRIP Normal mg/dL 05/20 Specimen Type: URINE No comment entered. Ordering Provider: Bessie GARCIA Report Released Date/Time: May 20, 2024 08:32 AM Reporting Lab: [facility] [place] [address] Performing Lab: [facility] DIVISION URINALYSIS (STL-PB) PROTEIN [MASS/VOLUM E] IN URINE BY TEST STRIP Negati vemg/d L 05/20 Specimen Type: URINE No comment entered. Ordering Provider: Bessie GARCIA Report Released Date/Time: May 20, 2024 08:32 AM Reporting Lab: [facility] [place] [address] Performing Lab: [facility] DIVISION URINALYSIS (STL-PB) URN.UROBILI NOGEN 2 mg/dL 05/20 H Specimen Type: URINE No comment entered. Ordering Provider: Bessie GARCIA Report Released Date/Time: May 20, 2024 08:32 AM Reporting Lab: [facility] [place] [address] Performing Lab: [facility] DIVISION URINALYSIS (STL-PB) HEMOGLOBIN [MASS/VOLUM E] IN URINE BY TEST STRIP Negati vemg/d L 05/20 Specimen Type: URINE No comment entered. Ordering Provider: Bessie GARCIA Report Released Date/Time: May 20, 2024 08:32 AM Reporting Lab: [facility] [place] [address] Performing Lab: [facility] DIVISION URINALYSIS (STL-PB) KETONES [MASS/VOLUM E] IN URINE BY TEST STRIP Negati vemg/d L 05/20 Specimen Type: URINE No comment entered. Ordering Provider: Bessie GARCIA Report Released Date/Time: May 20, 2024 08:32 AM Reporting Lab: [facility] [place] [address] Performing Lab: [facility] [facility] URINALYSIS (STL-PB) URN.LEUK.ES T. Negati vemg/d L 05/20 Specimen Type: URINE No comment entered. Ordering Provider: Bessie GARCIA Report Released Date/Time: May 20, 2024 08:32 AM Reporting Lab: [facility] [place] [address] Performing Lab: [facility] DIVISION URINALYSIS (STL-PB) SPECIFIC GRAVITY OF URINE 1.016 05/20 Specimen Type: URINE No comment entered. Ordering Provider: Bessie GARCIA Report Released Date/Time: May 20, 2024 08:32 AM Reporting Lab: [facility] [place] [address] Performing Lab: [facility] DIVISION COMPREHENS TAY METABOLIC PANEL CREATININE [MASS/VOLUM E] IN SERUM OR PLASMA 1.06 mg/dL 0.70 - 1.30 05/20 Specimen Type: PLASMA Comment: No hemolysis noted. Ordering Provider: Bessie GARCIA Report Released Date/Time: May 20, 2024 08:32 AM Reporting Lab: [facility] [place] [address] Performing Lab: [facility] [address] DIVISION COMPREHENS TAY METABOLIC PANEL UREA NITROGEN [MASS/VOLUM E] IN SERUM OR PLASMA 13.3 mg/dL 9.0 - 25.0 05/20 Specimen Type: PLASMA Comment: No hemolysis noted. Ordering Provider: Bessie GARCIA Report Released Date/Time: May 20, 2024 08:32 AM Reporting Lab: [facility] [place] [address] Performing Lab: [facility] [phone] [place] [address] DIVISION COMPREHENS TAY METABOLIC PANEL GLUCOSE [MASS/VOLUM E] IN SERUM OR PLASMA 102 mg/dL 72 - 99 05/20 H Specimen Type: PLASMA Comment: No hemolysis noted. Ordering Provider: Bessie GARCIA Report Released Date/Time: May 20, 2024 08:32 AM Reporting Lab: [facility] [address] Performing Lab: [facility] [id number] DIVISION COMPREHENS TAY METABOLIC PANEL SODIUM [MOLES/VOLU ME] IN SERUM OR PLASMA 140 meq/L 136 - 145 05/20 Specimen Type: PLASMA Comment: No hemolysis noted. Ordering Provider: Bessie GARCIA Report Released Date/Time: May 20, 2024 08:32 AM Reporting Lab: [facility] [address] Performing Lab: [facility] [phone] COMPREHENS TAY METABOLIC PANEL POTASSIUM [MOLES/VOLU ME] IN SERUM OR PLASMA 4.6 meq/L 3.5 - 5.0 05/20 Specimen Type: PLASMA Comment: No hemolysis noted. Ordering Provider: Bessie GARCIA Report Released Date/Time: May 20, 2024 08:32 AM Reporting Lab: [facility] [address] Performing Lab: [facility] DIVISION COMPREHENS TAY METABOLIC PANEL CHLORIDE [MOLES/VOLU ME] IN SERUM OR PLASMA 106 meq/L 98 - 107 05/20 Specimen Type: PLASMA Comment: No hemolysis noted. Ordering Provider: Bessie GARCIA Report Released Date/Time: May 20, 2024 08:32 AM Reporting Lab: [facility] [place] [address] Performing Lab: [facility] DIVISION COMPREHENS TAY METABOLIC PANEL CARBON DIOXIDE, TOTAL [MOLES/VOLU ME] IN SERUM OR PLASMA 27 meq/L 22 - 31 05/20 Specimen Type: PLASMA Comment: No hemolysis noted. Ordering Provider: Bessie GARCIA Report Released Date/Time: May 20, 2024 08:32 AM Reporting Lab: [facility] [place] [address] Performing Lab: [facility] DIVISION COMPREHENS TAY METABOLIC PANEL CALCIUM [MASS/VOLUM E] IN SERUM OR PLASMA 10.2 mg/dL 8.4 - 10.4 05/20 Specimen Type: PLASMA Comment: No hemolysis noted. Ordering Provider: Bessei GARCIA Report Released Date/Time: May 20, 2024 08:32 AM Reporting Lab: [facility] [place] [address] Performing Lab: [facility] DIVISION COMPREHENS TAY METABOLIC PANEL PROTEIN [MASS/VOLUM E] IN SERUM OR PLASMA 7.1 g/dL 6.0 - 8.6 05/20 Specimen Type: PLASMA Comment: No hemolysis noted. Ordering Provider: Bessie GARCIA Report Released Date/Time: May 20, 2024 08:32 AM Reporting Lab: [facility] [place] [address] Performing Lab: [facility] [address] DIVISION COMPREHENS TAY METABOLIC PANEL ALBUMIN [MASS/VOLUM E] IN SERUM OR PLASMA 4.1 g/dL 3.4 - 5.0 05/20 Specimen Type: PLASMA Comment: No hemolysis noted. Ordering Provider: Bessie GARCIA Report Released Date/Time: May 20, 2024 08:32 AM Reporting Lab: [facility] [place] [address] Performing Lab: [facility] [address] DIVISION COMPREHENS TAY METABOLIC PANEL BILIRUBIN.T OTAL [MASS/VOLUM E] IN SERUM OR PLASMA 0.6 mg/dL 0.2 - 1.2 05/20 Specimen Type: PLASMA Comment: No hemolysis noted. Ordering Provider: Bessie GARCIA Report Released Date/Time: May 20, 2024 08:32 AM Reporting Lab: [facility] [place] [address] Performing Lab: [facility] DIVISION COMPREHENS TAY METABOLIC PANEL ALKALINE PHOSPHATASE [ENZYMATIC ACTIVITY/VO LUME] IN SERUM OR PLASMA 96 U/L 40 - 150 05/20 Specimen Type: PLASMA Comment: No hemolysis noted. Ordering Provider: Bessie GARCIA Report Released Date/Time: May 20, 2024 08:32 AM Reporting Lab: [facility] [place] [address] Performing Lab: [facility] [address] DIVISION COMPREHENS TAY METABOLIC PANEL ASPARTATE AMINOTRANSF ERASE [ENZYMATIC ACTIVITY/VO LUME] IN SERUM OR PLASMA 19 U/L 5 - 34 05/20 Specimen Type: PLASMA Comment: No hemolysis noted. Ordering Provider: Bessie GARCIA Report Released Date/Time: May 20, 2024 08:32 AM Reporting Lab: [facility] [place] [address] Performing Lab: [facility] [address] [facility] COMPREHENS TAY METABOLIC PANEL ALANINE AMINOTRANSF ERASE [ENZYMATIC ACTIVITY/VO LUME] IN SERUM OR PLASMA 13 U/L 8 - 40 05/20 Specimen Type: PLASMA Comment: No hemolysis noted. Ordering Provider: Bessie GARCIA Report Released Date/Time: May 20, 2024 08:32 AM Reporting Lab: [facility] [phone] Performing Lab: [facility] [id number] [place] [address] DIVISION COMPREHENS TAY METABOLIC PANEL GLOMERULAR FILTRATION RATE/1.73 SQ M.PREDICTED [VOLUME RATE/AREA] IN SERUM, PLASMA OR BLOOD BY CREATININE- BASED FORMULA (CKD-EPI 2020) 76.92 60 05/20 Specimen Type: PLASMA Comment: No hemolysis noted. Ordering Provider: Bessie GARCIA Report Released Date/Time: May 20, 2024 08:32 AM Reporting Lab: [facility] [address] Performing Lab: [facility] [id number] Vital Signs Combined list of inpatient and outpatient Vital Signs from Department of Defense and Veterans Affairs, ranging from 12 months to all on record, depending upon the facility. Vital Sign Value Date Comments Source SYSTOLIC BLOOD PRESSURE 118 09/17/2024 13:59:41 [facility] DIASTOLIC BLOOD PRESSURE 75 09/17/2024 13:59:41 [facility] PULSE OXIMETRY 95 09/17/2024 13:59:41 [facility] WEIGHT 263.9 09/17/2024 13:59:41 [facility] BMI 33 kg/m2 09/17/2024 13:59:41 [facility] PAIN 0 09/17/2024 13:59:41 [facility] TEMPERATURE 97.5 09/17/2024 13:59:41 [facility] PULSE 81 09/17/2024 13:59:41 . Zoraida THOMPSON [facility] RESPIRATION 20 09/17/2024 13:59:41 [facility] SYSTOLIC BLOOD PRESSURE 128 09/16/2024 13:03:33 [facility] DIASTOLIC BLOOD PRESSURE 78 09/16/2024 13:03:33 [facility] PULSE OXIMETRY 95 09/16/2024 13:03:33 S Jono FELDMAN [facility] WEIGHT 263 09/16/2024 13:03:33 [facility] Zoraida [facility] BMI 33 kg/m2 09/16/2024 13:03:33 [facility] Zoraida [facility] TEMPERATURE 98 09/16/2024 13:03:33 [facility] PULSE 74 09/16/2024 13:03:33 [facility] Z[facility]ida [facility] RESPIRATION 18 09/16/2024 13:03:33 [facility] SYSTOLIC BLOOD PRESSURE 146 08/28/2024 13:35:58 [facility] DIASTOLIC BLOOD PRESSURE 99 08/28/2024 13:35:58 [facility] PULSE OXIMETRY 95 08/28/2024 13:35:58 rIaj De La Cruz [facility] WEIGHT 270.2 08/28/2024 13:35:58 [facility] BMI 34 kg/m2 08/28/2024 13:35:58 [facility] PAIN 0 08/28/2024 13:35:58 [facility] Zoraida [facility] HEIGHT 75 08/28/2024 13:35:58 [facility] TEMPERATURE 98.1 08/28/2024 13:35:58 [facility] PULSE 93 08/28/2024 13:35:58 [facility] RESP[facility] 22 08/28/2024 13:35:58 [facility] SYSTOLIC BLOOD PRESSURE 142 08/07/2024 13:02:02 [facility] DIASTOLIC BLOOD PRESSURE 81 08/07/2024 13:02:02 [facility] PULSE OXIMETRY 93 08/07/2024 13:02:02 S Jono [facility] WEIGHT 264.2 08/07/2024 13:02:02 [facility] BMI 33 kg/m2 08/07/2024 13:02:02 [facility] PAIN 7 08/07/2024 13:02:02 [facility] TEMPERATURE 97.6 08/07/2024 13:02:02 [facility] PULSE 70 08/07/2024 13:02:02 [facility] RESPIRATION 20 08/07/2024 13:02:02 [facility] SYSTOLIC BLOOD PRESSURE 148 05/20/2024 13:02:35 [facility] DIASTOLIC BLOOD PRESSURE 89 05/20/2024 13:02:35 [facility] PULSE OXIMETRY 98 05/20/2024 13:02:35 [facility] WEIGHT 265.1 05/20/2024 13:02:35 [facility] BMI 33 kg/m2 05/20/2024 13:02:35 [facility] PAIN 7 05/20/2024 13:02:35 [facility] TEMPERATURE 98.1 05/20/2024 13:02:35 [facility] PULSE 64 05/20/2024 13:02:35 [facility] RESPIRATION 20 05/20/2024 13:02:35 [facility] Encounters Combined list of: 1) Encounters from [facility] facilities going backup to the last 18 months, not all [facility] encounters are included; 2) Encounters from the Department of Defense facilities going backup to 280 months. Location Location Details Encounter Type Encounter Number Reason For Visit Attending Provider ADM Date DC Date Status Disposition Source [facility] Outpatient Encounter [id number] 08/29 [facility] OFFICE O/P EST MOD 30 MIN [id number] Diagnos is: ICD-10- CM J44.9 Chronic obstruc tive pulmona ry disease , unspeci fied Noam LUTHER NDREA 08/29 [facility] Outpatient Encounter [id number] 09/01 [facility] Outpatient Encounter [id number] 09/04 [facility] OFFICE O/P EST MOD 30 MIN [id number] Diagnos is: ICD-10- CM Z72.0 Tobacco use HUA SUTHERLAND A 09/09 [facility] Outpatient Encounter [id number] 09/09 [facility] Outpatient Encounter [id number] YANNA HILLMAN 09/10 [facility] Outpatient Encounter [id number] Winter DIAS 09/10 [facility] Outpatient Encounter [id number] 09/17 [facility] IMG RTA DETCJ/MNTR DS STAFF [id number] Diagnos is: ICD-10- CM Z13.5 Encount er for screeni ng for eye and ear disorde ELIU Tsai R 09/17 [facility] Outpatient Encounter [id number] Diagnos is: ICD-10- CM Z13.5 Encount er for screeni ng for eye and ear disorde rs Emely SURESH ILDA DOMINIQUEIA 09/17 [facility] OFFICE O/P EST MOD 30 MIN [id number] [id number] Diagnos is: ICD-10- CM 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 Bessie GARCIA 09/17 [facility] CPTR OPHTH DX IMG POST SEGMT 69645-9.65 [id number] Diagnos is: ICD-10- CM H34.211 Partial retinal artery occlusi on, right eye LYNN WOODRUFF TTHEW C 09/17 [facility] DIV[facility] OFFICE O/P EST MOD 30 MIN [id number] [id number] Diagnos is: ICD-10- CM R06.00 Dyspnea , unspeci fied OU,JIAFU 10/09 [facility] OFFICE O/P EST MOD 30 MIN [id number] [id number] Diagnos is: ICD-10- CM H34.211 Partial retinal artery occlusi on, right eye DUNIAABHINAV 10/21 [facility] FUNDUS PHOTOGRAPH Y W/I&R 68359-4.65 [id number] 161 Diagnos is: ICD-10- CM H35.9 Unspeci fied retinal disorde r JAMAR SMITH 10/21 [facility] OFF/OP CNSLTJ NEW/EST LOW 30 [id number] [id number] 3 Diagnos is: ICD-10- CM Z86.010 Personnoam l history of colonic polyps Emely BRANDT 10/23 [facility] Outpatient Encounter [id number] [id number] 7 11/07 [facility] Outpatient Encounter [id number] [id number] 5 11/08 [facility] OFFICE O/P EST LOW 20 MIN [id number] [id number] 3 Diagnos is: ICD-10- CM F17.210 Nicotin e depende nce, cigaret shara, uncompl icated HUA SUTHERLAND A 11/11 [facility] Outpatient Encounter [id number] [id number] 3 11/12 [facility] Outpatient Encounter [id number] [id number] 2 11/13 [facility] ACUPUNCT W/O STIMUL 15 MIN 23661-6.65 [id number] Diagnos is: ICD-10- CM F17.200 Nicotin e depende nce, unspeci fied, uncompl icated MYRTLE KAY 11/20 [facility] SERV 09296-5.65 [id number] 4 Diagnos is: ICD-10- CM Z71.89 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 ed financial 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 ing RENETTA BLACK 12/11 [facility] Outpatient Encounter 72802-4.65 [id number] 3 12/16 [facility] OFFICE O/P EST MOD 30 MIN [id number] [id number] 6 Diagnos is: ICD-10- CM I63.9 Cerebra l infarct ion, unspeci fied OU,JIAFU 12/18 [facility] Outpatient Encounter 60712-5.65 [id number] 4 12/19 [facility] Outpatient Encounter [id number] [id number] 3 ELSI SCOTT N 12/22 [facility] Outpatient Encounter 26493-4.65 [id number] 4 HEILIGELSI N 12/22 [facility] N [facility] ACUPUNCT W/O STIMUL 15 MIN 46857-0.65 [id number] Diagnos is: ICD-10- CM Z72.0 Tobacco use MYRTLE KAY 12/25 [facility] Outpatient Encounter [id number] [id number] 9 12/30 [facility] ACUPUNCT W/O STIMUL 15 MIN 23307-8.65 [id number] Diagnos is: ICD-10- CM Z72.0 Tobacco use MYRTLE KAY 01/01 [facility] MYOCRD STRAIN IMG SPCKL TRCK 90398-1.65 [id number] Diagnos is: ICD-10- CM 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 OU,JIAOBEY 01/02 [facility] Outpatient Encounter 05947-9.65 [id number] 0 MYRTLE KAY L 01/08 [facility] Outpatient Encounter [id number] [id number] 3 01/20 [facility] Outpatient Encounter [id number] [id number] 6 01/20 [facility] OFFICE O/P EST LOW 20 MIN 25276-7.65 [id number] 4 Diagnos is: ICD-10- CM Z01.818 Encount er for other preproc edural examina KENRICK Perez IN A 01/21 [facility] Outpatient Encounter [id number] [id number] 8 01/21 [facility] OFFICE O/P EST SF 10 MIN 88442-9.65 [id number] 6 Diagnos is: ICD-10- CM K63.5 Polyp of colon LYNN LEROY TTHEW H 01/21 [facility] Outpatient Encounter [id number] [id number] KEDAR FONTAINE 01/21 [facility] Outpatient Encounter 51858-2.65 [id number] 0 ARNOLD MTZ 01/22 [facility] Outpatient Encounter 10853-7.65 [id number] 9 01/23 [facility] Outpatient Encounter 97085-7.65 [id number] 0 03/03 [facility] Outpatient Encounter 37070-5.65 [id number] 5 Diagnos is: ICD-10- CM J44.9 Chronic obstruc tive pulmona ry disease , unspeci fied OU,JIAFU 03/19 [facility] Outpatient Encounter [id number] [id number] 4 Diagnos is: ICD-10- CM I63.9 Cerebra l infarct ion, unspeci fied DAYANAARIZWANA IL C 03/20 [facility] Outpatient Encounter [id number]. [id number] 3 OVERTURFWinter A 03/30 [facility] OFFICE O/P EST MOD 30 MIN 41556-6.65 [id number] Diagnos is: ICD-10- CM J44.9 Chronic obstruc tive pulmona ry disease , unspeci fied Bessie GARCIA HERE 04/08 [facility] Outpatient Encounter [id number] [id number] 5 04/10 [facility] Outpatient Encounter [id number] [id number] 9 Diagnos is: ICD-10- CM I63.9 Cerebra l infarct ion, unspeci fied DAYANAACHACHAH IL C 04/16 [facility] Outpatient Encounter [id number] [id number] 5 Bessie GARCIA HERE 04/16 [facility] Outpatient Encounter 26668-5. [id number] 3 04/16 [facility] Outpatient Encounter [id number] [id number] 05/11 [facility] REM INTERROG DEV EVAL SCRMS 40227-5.65 [id number] 3 Diagnos is: ICD-10- CM G46.4 Cerebel lar stroke syndrom e PANDA,RIZWANA [place] C 05/11 [facility] Outpatient Encounter [id number] [id number] 05/13 [facility] Outpatient Encounter 14391-3.66 [id number] 05/14 [facility] Outpatient Encounter [id number] [id number] 05/18 [facility] Outpatient Encounter 45775-7. [id number] Bessie GARCIA 05/19 [facility] Outpatient Encounter [id number] [id number] 05/19 [facility] OFFICE O/P EST MOD 30 MIN [id number] [id number] Diagnos is: ICD-10- CM I48.0 Paroxys mal atrial fibrill ation Bessie GARCIA 05/20 [facility] QNHP OL DIG ASSMT&MGMT 5-10 [id number] [id number] 108 Diagnos is: ICD-10- CM I48.91 Unspeci fied atrial fibrill ation ROSEANNE VIZCARRA 05/20 [facility] Outpatient Encounter [id number] [id number] 05/20 [facility] Outpatient Encounter 21359-6.65 [id number] 5 Diagnos is: ICD-10- CM I48.0 Paroxys mal atrial fibrill ation JACOBO TELLO 05/21 [facility] Outpatient Encounter [id number] [id number] 7 05/21 [facility] Outpatient Encounter 99130-5.65 [id number] 4 Diagnos is: ICD-10- CM G46.4 Cerebel lar stroke syndrom e ZBIGNIEWGAMALCARLOS ENRIQUE CINDY Winter 05/22 [facility] Outpatient Encounter 40702-4.65 [id number] 6 ZULEMA MORRISON ANY N 05/22 [facility] Outpatient Encounter [id number] [id number] 05/25 [facility] Outpatient Encounter [id number] [id number] 05/25 [facility] Outpatient Encounter 87364-3.66 [id number] 06/05 [facility] Outpatient Encounter 15964-6.65 [id number] 1 ZULEMA MORRISON ANY N 06/05 [facility] Outpatient Encounter [id number] [id number] 06/09 [facility] BY PHARM OUTREACH LIAISON 15 MIN 90782-6.65 [id number] Diagnos is: ICD-10- CM Z51.81 Encount er for therape utic drug level monitor ROSEANNE Boswell 06/15 [facility] Outpatient Encounter 59064-6.65 [id number] 5 ZULEMA MORRISON ANY N 06/15 [facility] MTMS BY PHARM EST 15 MIN 51984-8.65 [id number] Diagnos is: ICD-10- CM Z51.81 Encount er for therape utic drug level monitor ROSEANNE Boswell 07/06 [facility] Outpatient Encounter [id number] [id number] 07/30 [facility] Outpatient Encounter [id number] [id number] 07/30 [facility] REM INTERROG DEV EVAL SCRMS [id number] [id number] 7 Diagnos is: ICD-10- CM G46.4 Cerebel lar stroke syndrom e RIZWANA CLOUD 07/31 [facility] Outpatient Encounter [id number] [id number] Bessie GARCIA 07/31 [facility] Outpatient Encounter [id number] [id number] 08/03 [facility] Outpatient Encounter 48062-0.65 [id number] Diagnos is: ICD-10- CM I48.0 Paroxys mal atrial fibrill ation JACOBO TELLO 08/03 [facility] Outpatient Encounter [id number] [id number] 08/05 [facility] Outpatient Encounter [id number] [id number] 08/07 [facility] Outpatient Encounter [id number] [id number] 08/07 [facility] OFFICE O/P EST MOD 30 MIN [id number] [id number] Diagnos is: ICD-10- CM J44.1 Chronic obstruc tive pulmona ry disease w (acute) exacerb ation Bessie GARCIA HERESA 08/07 [facility] MTMS BY PHARM EST 15 MIN 45450-6.65 [id number] Diagnos is: ICD-10- CM Z51.81 Encount er for therape utic drug level monitor ROSEANNE Boswell M 08/10 [facility] Outpatient Encounter [id number] [id number] 2 Bessie GARCIA HERE08/12 [facility] Outpatient Encounter [id number] [id number] 1 08/28 [facility] OFFICE O/P EST MOD 30 MIN [id number] [id number] Diagnos is: ICD-10- CM R06.00 Dyspnea , unspeci fied MAGO ROBERTSON DT T 08/28 [facility] Outpatient Encounter [id number] [id number] 09/01 [facility] Outpatient Encounter [id number] [id number] 4 09/02 [facility] Outpatient Encounter [id number] [id number] 9 MORRISON,TIFF ANY N 09/04 [facility] SPACER WITHOUT MASK [id number] [id number] 9 Diagnos is: ICD-10- CM J44.9 Chronic obstruc tive pulmona ry disease , unspeci fied MAGO ROBERTSON DT T 09/16 [facility] OFFICE O/P EST MOD 30 MIN [id number] [id number] Diagnos is: ICD-10- CM I48.0 Paroxys mal atrial fibrill ation SHEPHERDURIEL WASHINGTON D 09/17 [facility] Outpatient Encounter [id number] [id number] 09/21 [facility] N [facility] SYNCH AUDIO-ONLY NEW HIGH 60 [id number] [id number] 9 Diagnos is: ICD-10- CM I48.0 Paroxys mal atrial fibrill ation RIZWANA CLOUD JACK C 09/21 [facility] N [facility] Outpatient Encounter [id number] [id number] 09/22 [facility] N [facility] Outpatient Encounter [id number] [id number] 09/22 [facility] N [facility] Outpatient Encounter [id number] [id number] 4 09/22 [facility] N Social History Combined list of available smoking, tobacco, and other social history from [facility] and [facility] facilities. Social History Type Response Date Comment Sour e Tobacco smoking status NHIS VA-TOBACCO USE EVERY DAY CIGARETTES 04/08/2024 [facility] History of tobacco use NC-TOBACCO NEVER USED OTHER TYPE 04/08/2024 [facility] History of tobacco use VA-TOBACCO USER EVERY DAY 02/15/2023 [facility] History of tobacco use VA-TOBACCO USER EVERY DAY 02/19/2022 [facility] History of tobacco use VA-TOBACCO FORMER USER 10/11/2020 [facility] History of tobacco use QUIT TOBACCO IN THE LAST 12 MONTHS 02/14/2017 [facility] History of tobacco use YAKELIN TOBACCO MEDS INTERESTED 09/05/2015 [facility] History of tobacco use YAKELIN TOBACCO MEDS INTERESTED 08/24/2014 [facility] History of tobacco use YAKELIN TOBACCO MEDS INTERESTED 08/05/2013 [facility] Plan of Care List of future care activities from [facility] of [facility] facilities. Additional future care activities may be listed in the Assessment and Plan section. Date/Time Care Activity Care Activity Detail Janet alarcon 01/28/2025 AMBULATORY - MEDICINE AMBULATORY - MEDICI [facility]
--- OUTSIDE RECORDS SUMMARY | 2024-09-22 15:06 | XMS_ITS | Encounter Summary ---
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 [place] [facility] Address [address] [place] [address] Care Team Providers Care Silver Wrapper Name Role Phone ELIZAJESSICA Primary Care Provider UnavailYANIV Gallegos Unavailable Unavailable [...] ACTIV E [place] HIGH Jun 03, 2013 [id number] [phone] JOSEPHINE DiamondROSITA SPOUSE MEDICARE (WNR) MEDICARE (M) PART A Jul 04, 2016 PART A [id number] [phone] ELI GRIMM PATIENT MEDICARE (WNR) MEDICARE (M) PART B Jul 04, 2016 PART B [id number] HERMES GRIMMY PATIENT MEDICARE (WNR) MEDICARE (M) PART A Jul 04, 2016 PART A [id number] [phone] RICHARDSO N,ELI PATIENT MEDICARE (WNR) MEDICARE (M) PART B Jul 04, 2016 PART B [id number] [facility] JOSEPHINE N,ELI PATIENT MEDICARE (WNR) MEDICARE (M) PART A Jul 04, 2016 PART A [id number] JOSEPHINE N,ELI PATIENT MEDICARE (WNR) MEDICARE (M) PART B Jul 04, 2016 PART B [id number] JOSEPHINE N,ELI PATIENT MEDICARE (WNR) MEDICARE (M) PART A Jul 04, 2016 PART A [id number] [phone] JOSEPHINE N,ELI PATIENT MEDICARE (WNR) MEDICARE (M) PART B Jul 04, 2016 PART B [id number] [phone] JOSEPHINE N,ELI PATIENT PRIME THERAPEUTI CS RX PRESCRIPT ION RX PLAN Jun 03, 2013 [id number] [phone] JOSEPHINE N,ELI PATIENT Selected Encounter This section includes the information on record at [place] for the Encounter. Date/Time Encounter Type Encounter Description Reason Pro vider Source IHE Encounter Template Text not used by [place]
--- OUTSIDE RECORDS SUMMARY | 2024-09-22 15:06 | XMS_ITS | Encounter Summary ---
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 [place] [facility] Address [address] [place] [address] Care Team Providers Care Storage Worker Name Role Phone JESSICA KAY Primary Care [...] ACTIV E [place] HIGH Jun 03, 2013 [id number] [phone] JOSEPHINE DiamondROSITA SPOUSE MEDICARE (WNR) MEDICARE (M) PART A Jul 04, 2016 PART A [id number] JOSEPHINE Diamond,ELI PATIENT MEDICARE (WNR) MEDICARE (M) PART B Jul 04, 2016 PART B [id number] EMMAMICHELLE Diamond,ELI PATIENT MEDICARE (WNR) MEDICARE (M) PART B Jul 04, 2016 PART B [id number] EMMASO N,ELI PATIENT MEDICARE (WNR) MEDICARE (M) PART A Jul 04, 2016 PART A [id number] EMMASO N,ELI PATIENT MEDICARE (WNR) MEDICARE (M) PART A Jul 04, 2016 PART A [id number] EMMASO N,ELI PATIENT MEDICARE (WNR) MEDICARE (M) PART B Jul 04, 2016 PART B [id number] RICHARDSO N,ELI PATIENT MEDICARE (WNR) MEDICARE (M) PART A Jul 04, 2016 PART A [id number] EMMASO N,ELI PATIENT MEDICARE (WNR) MEDICARE (M) PART B Jul 04, 2016 PART B [id number] EMMASO N,ELI PATIENT PRIME THERAPEUTI CS RX PRESCRIPT ION RX PLAN Jun 03, 2013 [id number] [phone] EMMASO N,ELI PATIENT Selected Encounter This section includes the information on record at [place] for the Encounter. Date/Time Encounter Type Encounter Description Reason Provider Source May 21, 2024 10:32 AM Outpatient Encounter CARDIOLOGY ICD-10-CM I48.0 Paroxysmal atrial fibrillation OU,JIAFU IHE Encounter Template Text not used by [place] Assessments - Encounter Diagnoses This section includes the primary and secondary diagnoses documented for the Encounter. Date/Time Primary/Secondary Diagnosis Diagnosis Name Provider Source May 21, 2024 12:25 PM PRIMARY Paroxysmal atrial fibrillation SIMONE STARR [facility] May 21, 2024 12:25 PM SECONDARY Cerebellar stroke syndrome SIMONE STARR [facility] Plan of Treatment: Future Appointments (+ 6 months) and Future Tests (+/- 45 days) The Plan of Treatment section includes future care activities for the patient from all [place] treatmentfacilities. This section includes future appointments and future orders which are active, pending or scheduled. Future Appointments This section includes appointments that were scheduled to occur 6 months from the date of the Encounter, up to a maximum of 20 appointments. The data comes from all [place] treatment facilities. Appointment Date/Time Appointment Type Appointme nt Facility Name Aug 06, 2024 10:15 AM AMBULATORY - MEDICINE [facility] Aug 07, 2024 01:00 PM AMBULATORY - MEDICINE [facility] Aug 28, 2024 12:00 PM AMBULATORY - NONE [facility] Aug 28, 2024 02:30 PM AMBULATORY - MEDICINE [facility] Sep 16, 2024 01:00 PM AMBULATORY - MEDICINE [facility] Sep 17, 2024 02:00 PM AMBULATORY - MEDICINE [facility] Lab Results: +/- 30 days of [...] Type Result - Unit Interpretation Reference Range Specimen Type Comment May 20, 2024 02:14 PM [facility] URINALYSIS (STL-PB) URINE Specimen Type: URINE No comment entered. Ordering Provider: WES GARCIA Report Released Date/Time: May 20, 2024 08:32 AM Reporting Lab: [facility] [id number] Performing Lab: [facility] [place] [id number] URINE COLOR Light-Yellow Yellow U.BILIRUBIN Negative mg/dL Negative U.PH 7.0 5.0-8.0 APPEARANCE Clear Clear U.NITRITE Negative mg/dL Negative URN.GLUCOSE Normal mg/dL Negative URN.PROTEIN Negative mg/dL URN.UROBILINOGEN 2 mg/dL H Normal URN.BLOOD Negative mg/dL Negative-Trace URN.KETONES Negative mg/dL Negative-Trac e URN.LEUK.EST. Negative mg/dL Negative-Tr jason URN.SPECIFIC GRAVITY 1.016 May 20, 2024 02:04 PM [facility] COMPREHENSIVE METABOLIC PANEL PLASMA Specimen Type: PLASMA Comment: No hemolysis noted. Ordering Provider: WES GARCIA Report Released Date/Time: May 20, 2024 08:32 AM Reporting Lab: [facility] [id number] Performing Lab: [facility] [place] [phone] CREATININE 1.06 mg/dL 0.70-1.30 UREA NITROGEN 13.3 [...] 76.92 >60 May 20, 2024 02:04 PM [facility] CBC BLOOD Specimen Type: BLOOD No comment entered. Ordering Provider: WES GARCIA Report Released Date/Time: May 20, 2024 08:32 AM Reporting Lab: [facility] [place] [address] Performing Lab: [facility] [place] [phone] WBC 10.1 10*3/uL 3.6-11.2 RBC 4.67 10*6/uL [...] AUTO % 1 LYMPHOCYTES, ABSOLUTE 2.16 10*3/uL 0.77- 4.50 MONOCYTES, ABSOLUTE 0.98 10*3/uL H 0.19-0. 80 NEUTROPHILS, ABSOLUTE 6.71 10*3/uL 2.10- 8.00 EOSINOPHILS, ABSOLUTE 0.11 10*3/uL 0.00- 0.60 BASOPHILS, ABSOLUTE 0.06 10*3/uL 0.00-0. 20 Encounter Notes: All associated encounter notes This section contains the clinical notes associated to the Encounter. Date/Time Encounter Note(s) Provider Source May 21, 2024 10:32 AM CARDIOLOGY NOTE: LOCAL TITLE: CARDIOLOGY CHART REVIEW STL STANDARD TITLE: CARDIOLOGY NOTE DATE OF NOTE: MAY 21, 2024@10:32 ENTRY DATE: MAY 21, 2024@10:33:05 AUTHOR: NORIS STARR COSIGNER: JACOBO TELLO URGENCY: STATUS: COMPLETED CARDIOLOGY [...] He is on plavix (prescribed by non [place] provider) and patient is obtaining it from non [place] pharmacy. Indication for plavix is non cardiac (most likley ischemic CVA). He does not have any stents in his coronaries. Recommend to get Neuro inputs on whether to further conyinue plavix or not. /argelia STARR MD POLICE INSPECTOR Signed: 05/21/2024 10:39 /loreta/ JACOBO TELLO MD,[facility] STAFF CREDIT RISK MODELER Cosigned: 05/21/2024 12:24 Receipt Acknowledged By: 05/21/2024 12:06 /loreta/ WES SA[facility] ADULT NURSE PRACTITIONER 05/21/2024 ADDENDUM STATUS: COMPLETED Agree with the above. /argelia TELLO MD,[facility] STAFF CREDIT RISK MODELER Signed: 05/21/2024 12:25 NORIS STARR [facility]
--- OUTSIDE RECORDS SUMMARY | 2024-09-22 15:06 | XMS_ITS | Encounter Summary ---
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 ([place]) Organization [facility] Address [address] [place] [address] Care Team Providers Care Child Guidance Counselor Name Role Phone JESSICA KAY Primary Care [...] ACTIV E [place] HIGH Jun 03, 2013 [phone] JOSEPHINE DiamondROSITA SPOUSE MEDICARE (WNR) MEDICARE (M) PART A Jul 04, 2016 PART A [id number] JOSEPHINE DiamondELI PATIENT MEDICARE (WNR) MEDICARE (M) PART B Jul 04, 2016 PART B [id number] JOSEPHINE Diamond,ELI PATIENT MEDICARE (WNR) MEDICARE (M) PART B Jul 04, 2016 PART B [id number] EMMASO N,ELI PATIENT MEDICARE (WNR) MEDICARE (M) PART A Jul 04, 2016 PART A [id number] RICHARDSO N,ELI PATIENT MEDICARE (WNR) MEDICARE (M) PART A Jul 04, 2016 PART A [id number] RICHARDSO N,ELI PATIENT MEDICARE (WNR) MEDICARE (M) PART B Jul 04, 2016 PART B [id number] RICHARDSO N,ELI PATIENT MEDICARE (WNR) MEDICARE (M) PART A Jul 04, 2016 PART A [id number] RICHARDSO N,ELI PATIENT MEDICARE (WNR) MEDICARE (M) PART B Jul 04, 2016 PART B [id number] RICHARDSO N,ELI PATIENT PRIME THERAPEUTI CS RX PRESCRIPT ION RX PLAN Jun 03, 2013 [id number] [phone] EMMASO N,ELI PATIENT Selected Encounter This section includes the information on record at [place] for the Encounter. 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 Date/Time Primary/Secondary Diagnosis Diagnosis Name Provider Source Aug 04, 2024 07:41 AM PRIMARY [facility]bellar stroke [facility] Aug 04, 2024 07:41 AM SECONDARY Paroxysmal atrial fibrillation [facility] Plan of Treatment: Future Appointments (+ [...] 06, 2024 10:15 AM AMBULATORY - MEDICINE [facility] Aug 07, 2024 01:00 PM AMBULATORY - MEDICINE [facility] Aug 28, 2024 12:00 PM AMBULATORY - NONE [facility] Aug 28, 2024 02:30 PM AMBULATORY - MEDICINE [facility] Sep 16, 2024 01:00 PM AMBULATORY - MEDICINE [facility] Sep 17, 2024 02:00 PM AMBULATORY - MEDICINE [facility] Jan 28, 2025 02:00 PM AMBULATORY - MEDICINE [facility] Active, Pending, and Scheduled Orders This section includes a listing of several types of active, pending, and scheduled orders, including clinic medications orders, diagnostic test orders, procedure orders and consult orders; where the start date of the order is 45 days before the date of the Encounter or 45 days after the date of theEncounter. The data comes from all [facility]. Test Date/Time Test Type Test Details Facility Name Sep 14, 2024 11:02 AM Consult Order [facility] CONSULT OUTPT [facility] Cons Electric Meter Tester's Choice [facility] Lab Results: +/- 30 days of the encounter This section includes the Chemistry and Hematology Lab Results on record with [place] for the patient. Radiology Reports and Pathology Reports are provided separately, in subsequent sections. Lab Results This section contains the Chemistry/Hematology Results that were resulted 30 days before or 30 daysafter the date of the Encounter. Date/Time Source Result Type Result - Unit Interpretation Reference Range Specimen Type Comment Aug 28, 2024 02:18 PM [facility] BRAIN NATRIURETIC PEPTIDE PLASMA Specimen Type : PLASMA No comment entered. Ordering Provider: PASTOR ROBERTSON Report Released Date/Time: Aug 28, 2024 01:59 PM Reporting Lab: [facility] [address] [facility] [address] Performing Lab: [facility] [address] [facility] [address] BRAIN NATRIURETIC PEPTIDE 356.1 pg/mL H 0- 100 Aug 28, 2024 02:18 PM [facility] BASIC METABOLIC PANEL PLASMA Specimen Type: PL ASMA Comment: No hemolysis noted. Ordering Provider: PASTOR ROBERTSON Report Released Date/Time: Aug 28, 2024 01:59 PM Reporting Lab: [facility] [address] [facility] [address] Performing Lab: [address] [address] CREATININE 1.09 mg/dL 0.7-1.3 UREA NITROGEN 16.4 mg/dL 9.0-25.0 GLUCOSE 110 mg/dL H 72-99 SODIUM 139 meq/L 136-145 POTASSIUM 4.7 meq/L 3.5-5 CHLORIDE 105 meq/L 98-107 CARBON DIOXIDE 27 meq/L 22-31 CALCIUM 9.1 mg/dL 8.4-10.4 EGFR (CKD-EPI 2020) 74.4 >60 Aug 28, 2024 02:18 PM [facility] CBC BLOOD Specimen Type: BLOOD No comment entered. Ordering Provider: PASTOR ROBERTSON Report Released Date/Time: Aug 28, 2024 01:59 PM Reporting Lab: [address] [address] Performing Lab: [address] [address] WBC 11.9 10*3/uL H 3.6-11.2 RBC 4.47 10*6/uL 4.10-5.70 HGB 14.6 g/dL 13.1-16.8 HCT 46.5 38.2-48.4 MCV 104.0 fL H 80.0-100.0 MCH 32.7 pg 27.0-34.0 MCHC 31.4 g/dL L 33.0-36.0 PLT 171 10*3/uL 150-400 MPV 10.2 fL 7.5-11.2 RDW 15.6 H 11.8-15.1 LYMPHOCYTES, AUTO % 11 MONOCYTES, AUTO % 6 NEUTROPHILS, AUTO % 82 EOSINOPHILS, AUTO % 0 BASOPHILS, AUTO % 0 LYMPHOCYTES, ABSOLUTE 1.31 10*3/uL 0.77- 4.50 MONOCYTES, ABSOLUTE 0.73 10*3/uL 0.19-0. 80 NEUTROPHILS, ABSOLUTE 9.72 10*3/uL H 2.10- 8.00 EOSINOPHILS, ABSOLUTE 0.04 10*3/uL 0.00- 0.60 BASOPHILS, ABSOLUTE 0.04 10*3/uL 0.00-0. 20 Aug 07, 2024 02:08 PM [facility] CREATININE(EGFR) PLASMA Specimen Type: PLASM A No comment entered. Ordering Provider: EB VIZCARRA Report Released Date/Time: Jul 06, 2024 11:52 AM Reporting Lab: [facility] [address] [place] [address] Performing Lab: [facility] [address] [place] [address] CREATININE 1.14 mg/dL 0.70-1.30 EGFR (CKD-EPI 2020) 70.49 >60 Aug 07, 2024 02:08 PM [facility] AST/SGOT PLASMA Specimen Type: PLASM A No comment entered. Ordering Provider: EB VIZCARRA Report Released Date/Time: Jul 06, 2024 11:52 AM Reporting Lab: [facility] [address] [place] [address] Performing Lab: [facility] [address] [place] [address] AST/SGOT 24 U/L 5-34 Aug 07, 2024 02:08 PM [facility] HGB,HCT,PLT BLOOD Specimen Type: BLOOD No comment entered. Ordering Provider: EB VIZCARRA Report Released Date/Time: Jul 06, 2024 11:52 AM Reporting Lab: [facility] [address] [place] [address] Performing Lab: [facility] [address] [place] [address] HGB 14.6 g/dL 13.1-16.8 HCT 46.1 38.2-48.4 PLT 257 10*3/uL 150-400 Aug 07, 2024 02:08 PM [facility] ALT/SGPT PLASMA Specimen Type: PLASM A No comment entered. Ordering Provider: EB VIZCARRA Report Released Date/Time: Jul 06, 2024 11:52 AM Reporting Lab: [facility] [address] [facility] [address] Performing Lab: [facility] [address] [facility] [address] ALT/SGPT 42 U/L H 8-40 Radiology Reports: +/- 30 days of the [...] the Encounter. The data comes from all [place] treatment facilities. Date/Time Radiology Report Provider Source Aug 28, 2024 11:[address] THORAX, DIAGNOS TIC, W/CONTRAST: ELI RUELAS [id number] -1955 Exm Date: AUG 28, 2024@11:50 Req Phys: ALEM LUTHER Loc: [facility]-PULMONARY INTERVENTIONAL (R Img Loc: [facility]-CT IMAGING [facility] Service: [address] [address] (Case [id number] COMPLETE) CT THORAX, DIAGNOSTIC, W/CONTRAS(CT Detailed) CPT:04935 Contrast Media : Non-ionic Iodinated Reason for Study: Surveillance post resection of jennifer ca 2020 Clinical History: Responsible Attending: Shante Attending Contact Number: [phone] Resident Contact Number: Allergies listed in CPRS chart: CHANTIX Creatinine: CREATININE 1.16 mg/dL 02/15/2023 11:44 /eGFR: STL EGFR (within one year). CREATININE 1.16 mg/dL (02/15/23 11:44) Wt: 264 lb [119.75 kg] (08/30/2023 14:51) History of: Renal failure, chronic or acute renal disease: NO Report Status: Verified Date Reported: AUG 30, 2024 Date Verified: AUG 30, 2024 Lead Web Application Developer E-Sig:/ES/Oswald Coronado MD Report: INDICATION: Surveillance post resection of jennifer ca 2020 CLINICAL HISTORY:Jennifer Ca Surveillance RML resection COMPARISON: Multiple prior CT chest examinations, most recently 08/28/2023 TECHNIQUE: CT THORAX, DIAGNOSTIC, W/CONTRAST FINDINGS: Postsurgical changes in the right lung are stable. There is mild emphysema. No new or enlarging pulmonary nodules are identified. There is slight left-sided pleural thickening inferiorly with adjacent atelectasis/scarring, not significantly changed. The visualized paratracheal and perihilar lymph nodes are not significantly changed. Cardiomegaly now seen without evidence for interstitial pulmonary edema suggesting CHF. There is arteriosclerosis of the aorta and its branches to include the coronary arteries. The ascending aorta is mildly ectatic measuring 4.1 cm transverse. The main pulmonary artery mildly dilated measuring 3.3 cm in transverse diameter, likely cyclical pulmonary hypertension. There is no pulmonary embolism. No acute upper abdominal process on this limited exam. Partially scanned apparent bilateral renal cysts. Degenerative changes of the spine without fracture. A metallic density is noted in the left chest wall. Impression: Stable postsurgical changes in the right lung with no new nodules or lymphadenopathy. Stable appearance of the left posterior pleural space and adjacent lower lobe. Mild emphysema. Interval development of cardiomegaly with evidence for interstitial pulmonary edema/CHF. The main pulmonary artery is also slightly dilated which could be consistent with pulmonary arterial hypertension. Arteriosclerosis of the aorta and its branches to include the coronary arteries. Ectatic ascending aorta measures 4.1 cm transverse. Partially scanned kidneys notable for probable cysts bilaterally. No acute upper abdominal process. Dictated by Raúl Hampton MD (orthodontist vice president). I, Oswald Coronado, have reviewed the images and report and concur with these findings. Primary Interpreting Staff: Oswald Coronado MD, Radiologist (Lead Web Application Developer) Primary Interpreting Resident: RAÚL HAMPTON, Resident Physician /OSWALD HAMMONDS [facility] Aug 07, 2024 02:00 PM CHEST X-RAY, 2 VIE WS: ELI RUELAS [id number] -1955 M Ex Date: AUG 07, 2024@14:00 Req Phys: WES GARCIA Pat Loc: [facility]-PACT E3 NEW PATIENT (Req'g Img Loc: [facility] Service: Unknown [facility], [address] [place] [address] (Case [id number] COMPLETE) CHEST X-RAY, 2 VIEWS (RAD Detailed) CPT:02024 Reason for Study: COPD/Dyspnea/s/p influenza A Clinical History: COPD/Dyspnea./s/p Influenza A Report Status: Verified Date Reported: AUG 12, 2024 Date Verified: AUG 12, 2024 Lead Web Application Developer E-Sig:/LORETA/TAMMI CARRERO Report: CHEST X-RAY, 2 VIEWS HISTORY: COPD/Dyspnea/s/p influenza A FINDINGS: Cardiac monitoring device in place. Hyperinflation and other chronic findings. The heart size and pulmonary vasculature are normal. There is no consolidating infiltrate, effusion or pneumothorax. Impression: No active lung disease. RR Primary Interpreting Staff: TAMMI CARRERO, Staff Physician (Akira) /[facility] Encounter Notes: All associated encounter notes This section contains the clinical notes associated to the Encounter. Date/Time Encounter Note(s) Provider Source Aug 08, 2024 02:13 PM ADDENDUM: LOCAL TITLE: Addendum STANDARD TITLE: ADDENDUM DATE OF NOTE: AUG 08, 2024@14:13:05 ENTRY DATE: AUG 08, 2024@14:13:06 AUTHOR: JOSE CLOUD EXP COSIGNER: URGENCY: STATUS: COMPLETED ok to turn off AF alerts /loreta/ JOSE CLOUD MD CLINICAL CARDIAC SAUSAGE COOKER Signed: 08/08/2024 14:13 Receipt Acknowledged By: 08/11/2024 08:38 /loreta/ Verna Erickson,RN,BSN Registered Nurse --- Original Document --- 07/31/24 CARDIOLOGY DEVICE SURVEILLANCE NOTE STL: [employer] ILR REMOTE SUMMARYWITH ALERT VA SURVEILLANCE: Alert Transmission Arrhythmia: - AFL/AF episodes noted, longest episode 6 minutes to < 24 hours - Symptom(s) with appropriate episode 1 symptom with episode of AF dizzy, short of breath on 07/29/24. 2 Symptom (Patient Activated) Episode(s) without detected episode SEE [facility] FOR FULL PDF FOLLOWING EP:PANDA RELEVANT MEDICATION:APIXABAN, NON-VA ASA, METOPROLOL 25MG DAILY [employer] EL+ ICM 5500 #:[id number] DOI:04/16/2024 INDICATION:CRYPTOGENIC STROKE BATTERY STATUS:GOOD LAST REMOTE SESSION:Jun 08, 2024 LAST CLINIC SESSION:Apr 16, 2024 LAST CLEARED:Jun 08, 2024 LAST PROGRAMMED:May 11, 2024 R-WAVE AMPLITUDE:0.24 mV - 0.33 mV mV EPISODE COUNTS: SINCE BARROSO PARAMETERS 51 DAYS AF 37 6 MIN TACHY 0 165 bpm, 16 INTERVALS OLI 0 30 bpm PAUSE 0 5.0 SEC SYMPTOM(ALL) 3 SYMPTOM(W/DET) 1 EGM DYNAMIC RANGE:+/- 0.40 mV MAX SENSITIVITY: 0.075 mV AF STATISTICS SINCE:51 DAYS TOTAL AF EPISODES:67 TOTAL AF BURDEN :3% MOST RECENT EPISODE:07/29/2024 8H 12M 23S HIGHEST MEAN V RATE:108 07/10/2024 LONGEST EPISODE:07/29/2024 CURRENT EGM:FLUTTER WITH VARIABLE BLOCK ALERTS: 07-29-2024 04:57 PM Symptom - Dizzy, Shortne... Steady 07-29-2024 03:48 PM AF 8:12:23* 92 bpm avg. Steady 07-29-2024 02:19 PM AF 12:32 91 bpm avg. Steady 07-29-2024 01:57 PM AF 17:14 90 bpm avg. Unsteady 07-29-2024 04:11 AM Symptom - Shortness of B... Steady 07-24-2024 02:37 PM AF 1:25:10 89 bpm avg. n/a 07-24-2024 12:32 PM AF 1:56:02 96 bpm avg. n/a 07-23-2024 10:19 AM AF 45:49 79 bpm avg. n/a 07-22-2024 11:05 PM AF 25:42 75 bpm avg. n/a 07-19-2024 08:46 AM AF 7:51 83 bpm avg. n/a 07-13-2024 10:41 PM Symptom - - Steady 07-10-2024 08:51 PM AF 26:48 84 bpm avg. Steady 07-10-2024 09:33 AM AF 2:50:30 108 bpm avg. Unsteady 07-09-2024 06:16 PM AF 1:9:11 105 bpm avg. Steady 07-09-2024 01:28 PM AF 14:02 106 bpm avg. Steady 07-09-2024 10:09 AM AF 33:52 69 bpm avg. Steady 07-08-2024 11:36 PM AF 1:3:03 80 bpm avg. Steady 07-08-2024 07:55 PM AF 31:22 96 bpm avg. Steady /loreta/ VANNESSA TURNERN,RN,CEPS REGISTERED NURSE Signed: 07/31/2024 12:38 Receipt Acknowledged By: 08/02/2024 19:00 /loreta/ JOSE CLOUD MD CLINICAL CARDIAC SAUSAGE COOKER 08/02/2024 ADDENDUM STATUS: COMPLETED I have read and agree with the fellow's summary of the patient's history and the review and interpretation of the pertinent diagnostic studies. I have also read and agree with their assessment and recommendations which we developed together. Any additional documentation or exceptions are documented below. Will also alert his primary cardiologists Dr. Valdez and Dr. Miller. /loreta/ JOSE CLOUD MD CLINICAL CARDIAC SAUSAGE COOKER Signed: 08/02/2024 19:01 Receipt Acknowledged By: 08/06/2024 14:37 /loreta/ NORIS VALDEZ MD PLANNING SUPERVISOR 08/03/2024 08:07 /loreta/ JACOBO MILLER MD,[facility] STAFF PHYSICAL OPTICS TEACHER 08/07/2024 ADDENDUM STATUS: COMPLETED PATIENT: ELI RUELAS SSN: [id number] : 1955 DATE: 2024-08-07 12:31 SUMMARY: Alert Transmission Arrhythmia: - AFL/AF episodes noted, longest episode >=24 hours AF in progress AF burden 100% ON APIXABAN DR CLOUD Can we turn off AF alerts? PLEASE TAG ME BACK ME Apprised /es/ Verna Erickson RN,BSN Registered Nurse Signed: 08/07/2024 14:18 Receipt Acknowledged By: 08/08/2024 14:12 /loreta/ JOSE CLOUD MD CLINICAL CARDIAC SAUSAGE COOKER JOSE CLOUD [facility] Aug 07, 2024 02:17 PM ADDENDUM: LOCAL TITLE: Addendum STANDARD TITLE: ADDENDUM DATE OF NOTE: AUG 07, 2024@14:17:31 ENTRY DATE: AUG 07, 2024@14:17:32 AUTHOR: VERNA ERICKSON EXP COSIGNER: URGENCY: STATUS: COMPLETED PATIENT: ELI RUELAS SSN: [id number] : 1955 DATE: 2024-08-07 12:31 SUMMARY: Alert Transmission Arrhythmia: - AFL/AF episodes noted, longest episode >=24 hours AF in progress AF burden 100% ON APIXABAN DR CLOUD Can we turn off AF alerts? PLEASE TAG VT BACK ME Apprised /es/ Verna Erickson RN,BSN Registered Nurse Signed: 08/07/2024 14:18 Receipt Acknowledged By: 08/08/2024 14:12 /loreta/ JOSE CLOUD MD CLINICAL CARDIAC SAUSAGE COOKER --- Original Document --- 07/31/24 CARDIOLOGY DEVICE SURVEILLANCE NOTE STL: [employer] ILR REMOTE SUMMARYWITH ALERT VA SURVEILLANCE: Alert Transmission Arrhythmia: - AFL/AF episodes noted, longest episode 6 minutes to < 24 hours - Symptom(s) with appropriate episode 1 symptom with episode of AF dizzy, short of breath on 07/29/24. 2 Symptom (Patient Activated) Episode(s) without detected episode SEE [facility] FOR FULL PDF FOLLOWING EP:PEDRO LUIS RELEVANT MEDICATION:APIXABAN, NON-VA ASA, METOPROLOL 25MG DAILY [facility] [employer] EL+ ICM 5500 #:[id number] DOI:04/16/2024 INDICATION:CRYPTOGENIC STROKE BATTERY STATUS:GOOD LAST REMOTE SESSION:Jun 08, 2024 LAST CLINIC SESSION:Apr 16, 2024 LAST CLEARED:Jun 08, 2024 LAST PROGRAMMED:May 11, 2024 R-WAVE AMPLITUDE:0.24 mV - 0.33 mV mV EPISODE COUNTS: SINCE BARROSO PARAMETERS 51 DAYS AF 37 6 MIN TACHY 0 165 bpm, 16 INTERVALS OLI 0 30 bpm PAUSE 0 5.0 SEC SYMPTOM(ALL) 3 SYMPTOM(W/DET) 1 EGM DYNAMIC RANGE:+/- 0.40 mV MAX SENSITIVITY: 0.075 mV AF STATISTICS SINCE:51 DAYS TOTAL AF EPISODES:67 TOTAL AF BURDEN :3% MOST RECENT EPISODE:07/29/2024 8H 12M 23S HIGHEST MEAN V RATE:108 07/10/2024 LONGEST EPISODE:07/29/2024 CURRENT EGM:FLUTTER WITH VARIABLE BLOCK ALERTS: 07-29-2024 04:57 PM Symptom - Dizzy, Shortne... Steady 07-29-2024 03:48 PM AF 8:12:23* 92 bpm avg. Steady 07-29-2024 02:19 PM AF 12:32 91 bpm avg. Steady 07-29-2024 01:57 PM AF 17:14 90 bpm avg. Unsteady 07-29-2024 04:11 AM Symptom - Shortness of B... Steady 07-24-2024 02:37 PM AF 1:25:10 89 bpm avg. n/a 07-24-2024 12:32 PM AF 1:56:02 96 bpm avg. n/a 07-23-2024 10:19 AM AF 45:49 79 bpm avg. n/a 07-22-2024 11:05 PM AF 25:42 75 bpm avg. n/a 07-19-2024 08:46 AM AF 7:51 83 bpm avg. n/a 07-13-2024 10:41 PM Symptom - - Steady 07-10-2024 08:51 PM AF 26:48 84 bpm avg. Steady 07-10-2024 09:33 AM AF 2:50:30 108 bpm avg. Unsteady 07-09-2024 06:16 PM AF 1:9:11 105 bpm avg. Steady 07-09-2024 01:28 PM AF 14:02 106 bpm avg. Steady 07-09-2024 10:09 AM AF 33:52 69 bpm avg. Steady 07-08-2024 11:36 PM AF 1:3:03 80 bpm avg. Steady 07-08-2024 07:55 PM AF 31:22 96 bpm avg. Steady /loreta/ VANNESSA BRUNO BSN,RN,CEPS REGISTERED NURSE Signed: 07/31/2024 12:38 Receipt Acknowledged By: 08/02/2024 19:00 /loreta/ JOSE CLOUD MD CLINICAL CARDIAC SAUSAGE COOKER 08/02/2024 ADDENDUM STATUS: COMPLETED I have read and agree with the fellow's summary of the patient's history and the review and interpretation of the pertinent diagnostic studies. I have also read and agree with their assessment and recommendations which we developed together. Any additional documentation or exceptions are documented below. Will also alert his primary cardiologists Dr. Valdez and Dr. Miller. /loreta/ JOSE CLOUD MD CLINICAL CARDIAC SAUSAGE COOKER Signed: 08/02/2024 19:01 Receipt Acknowledged By: 08/06/2024 14:37 /loreta/ NORIS VALDEZ MD PLANNING SUPERVISOR 08/03/2024 08:07 /loreta/ JACOBO MILLER MD,[facility] STAFF PHYSICAL OPTICS TEACHER RAMILA ERICKSON [facility] Aug 02, 2024 07:00 PM ADDENDUM: LOCAL TITLE: Addendum STANDARD TITLE: ADDENDUM DATE OF NOTE: AUG 02, 2024@19:00:50 ENTRY DATE: AUG 02, 2024@19:00:51 AUTHOR: JOSE CLOUD EXP COSIGNER: URGENCY: STATUS: COMPLETED I have read and agree with the fellow's summary of the patient's history and the review and interpretation of the pertinent diagnostic studies. I have also read and agree with their assessment and recommendations which we developed together. Any additional documentation or exceptions are documented below. Will also alert his primary cardiologists Dr. Valdez and Dr. Miller. /loreta/ JOSE CLOUD MD CLINICAL CARDIAC SAUSAGE COOKER Signed: 08/02/2024 19:01 Receipt Acknowledged By: 08/06/2024 14:37 /es/ NORIS VALDEZ MD PLANNING SUPERVISOR 08/03/2024 08:07 /es/ JACOBO MILLER MD,[facility] STAFF PHYSICAL OPTICS TEACHER --- Original Document --- 07/31/24 CARDIOLOGY DEVICE SURVEILLANCE NOTE STL: [employer] ILR REMOTE SUMMARYWITH ALERT VA SURVEILLANCE: Alert Transmission Arrhythmia: - AFL/AF episodes noted, longest episode 6 minutes to < 24 hours - Symptom(s) with appropriate episode 1 symptom with episode of AF dizzy, short of breath on 07/29/24. 2 Symptom (Patient Activated) Episode(s) without detected episode SEE [facility] IMAG[facility] FOR FULL PDF FOLLOWING EP:PANDA RELEVANT MEDICATION:APIXABAN, NON-VA ASA, METOPROLOL 25MG DAILY Salman [employer]-IQ EL+ ICM 5500 SN#:[id number] DOI:04/16/2024 INDICATION:CRYPTOGENIC STROKE BATTERY STATUS:GOOD LAST REMOTE SESSION:Jun 08, 2024 LAST CLINIC SESSION:Apr 16, 2024 LAST CLEARED:Jun 08, 2024 LAST PROGRAMMED:May 11, 2024 R-WAVE AMPLITUDE:0.24 mV - 0.33 mV mV EPISODE COUNTS: SINCE BARROSO PARAMETERS 51 DAYS AF 37 6 MIN TACHY 0 165 bpm, 16 INTERVALS OLI 0 30 bpm PAUSE 0 5.0 SEC SYMPTOM(ALL) 3 SYMPTOM(W/DET) 1 EGM DYNAMIC RANGE:+/- 0.40 mV MAX SENSITIVITY: 0.075 mV AF STATISTICS SINCE:51 DAYS TOTAL AF EPISODES:67 TOTAL AF BURDEN :3% MOST RECENT EPISODE:07/29/2024 8H 12M 23S HIGHEST MEAN V RATE:108 07/10/2024 LONGEST EPISODE:07/29/2024 CURRENT EGM:FLUTTER WITH VARIABLE BLOCK ALERTS: 07-29-2024 04:57 PM Symptom - Dizzy, Shortne... Steady 07-29-2024 03:48 PM AF 8:12:23* 92 bpm avg. Steady 07-29-2024 02:19 PM AF 12:32 91 bpm avg. Steady 07-29-2024 01:57 PM AF 17:14 90 bpm avg. Unsteady 07-29-2024 04:11 AM Symptom - Shortness of B... Steady 07-24-2024 02:37 PM AF 1:25:10 89 bpm avg. n/a 07-24-2024 12:32 PM AF 1:56:02 96 bpm avg. n/a 07-23-2024 10:19 AM AF 45:49 79 bpm avg. n/a 07-22-2024 11:05 PM AF 25:42 75 bpm avg. n/a 07-19-2024 08:46 AM AF 7:51 83 bpm avg. n/a 07-13-2024 10:41 PM Symptom - - Steady 07-10-2024 08:51 PM AF 26:48 84 bpm avg. Steady 07-10-2024 09:33 AM AF 2:50:30 108 bpm avg. Unsteady 07-09-2024 06:16 PM AF 1:9:11 105 bpm avg. Steady 07-09-2024 01:28 PM AF 14:02 106 bpm avg. Steady 07-09-2024 10:09 AM AF 33:52 69 bpm avg. Steady 07-08-2024 11:36 PM AF 1:3:03 80 bpm avg. Steady 07-08-2024 07:55 PM AF 31:22 96 bpm avg. Kimberly /loreta/ VANNESSA BRUNO BSN,RN,CEPS REGISTERED NURSE Signed: 07/31/2024 12:38 Receipt Acknowledged By: 08/02/2024 19:00 /loreta/ JOSE CLOUD MD CLINICAL CARDIAC SAUSAGE COOKER JOSE CLOUD [facility] Jul 31, 2024 12:26 PM INTERVENTIONAL CARDIOLOGY NOTE: LOCAL TITLE: CARDIOLOGY DEVICE SURVEILLANCE NOTE STL STANDARD TITLE: INTERVENTIONAL CARDIOLOGY NOTE DATE OF NOTE: JUL 31, 2024@12:26 ENTRY DATE: JUL 31, 2024@12:27:03 AUTHOR: SPRINGMAN,VANNESSA A EXP COSIGNER: URGENCY: STATUS: COMPLETED CARDIOLOGY DEVICE SURVEILLANCE NOTE STL Has ADDENDA TANNER [employer] ILR REMOTE SUMMARYWITH ALERT VA SURVEILLANCE: Alert Transmission Arrhythmia: - AFL/AF episodes noted, longest episode 6 minutes to < 24 hours - Symptom(s) with appropriate episode 1 symptom with episode of AF dizzy, short of breath on 07/29/24. 2 Symptom (Patient Activated) Episode(s) without detected episode SEE [facility] FOR FULL PDF FOLLOWING EP:PANDA RELEVANT MEDICATION:APIXABAN, NON-VA ASA, METOPROLOL 25MG DAILY Assert-IQ EL+ ICM 5500 SN#:[id number] DOI:04/16/2024 INDICATION:CRYPTOGENIC STROKE BATTERY STATUS:GOOD LAST REMOTE SESSION:Jun 08, 2024 LAST CLINIC SESSION:Apr 16, 2024 LAST CLEARED:Jun 08, 2024 LAST PROGRAMMED:May 11, 2024 R-WAVE AMPLITUDE:0.24 mV - 0.33 mV mV EPISODE COUNTS: SINCE BARROSO PARAMETERS 51 DAYS AF 37 6 MIN TACHY 0 165 bpm, 16 INTERVALS OLI 0 30 bpm PAUSE 0 5.0 SEC SYMPTOM(ALL) 3 SYMPTOM(W/DET) 1 EGM DYNAMIC RANGE:+/- 0.40 mV MAX SENSITIVITY: 0.075 mV AF STATISTICS SINCE:51 DAYS TOTAL AF EPISODES:67 TOTAL AF BURDEN :3% MOST RECENT EPISODE:07/29/2024 8H 12M 23S HIGHEST MEAN V RATE:108 07/10/2024 LONGEST EPISODE:07/29/2024 CURRENT EGM:FLUTTER WITH VARIABLE BLOCK ALERTS: 07-29-2024 04:57 PM Symptom - Dizzy, Shortne... Steady 07-29-2024 03:48 PM AF 8:12:23* 92 bpm avg. Steady 07-29-2024 02:19 PM AF 12:32 91 bpm avg. Steady 07-29-2024 01:57 PM AF 17:14 90 bpm avg. Unsteady 07-29-2024 04:11 AM Symptom - Shortness of B... Steady 07-24-2024 02:37 PM AF 1:25:10 89 bpm avg. n/a 07-24-2024 12:32 PM AF 1:56:02 96 bpm avg. n/a 02-20-2025 10:19 AM AF 45:49 79 bpm avg. n/a 07-22-2024 11:05 PM AF 25:42 75 bpm avg. n/a 07-19-2024 08:46 AM AF 7:51 83 bpm avg. n/a 07-13-2024 10:41 PM Symptom - - Steady 07-10-2024 08:51 PM AF 26:48 84 bpm avg. Steady 07-10-2024 09:33 AM AF 2:50:30 108 bpm avg. Unsteady 07-09-2024 06:16 PM AF 1:9:11 105 bpm avg. Steady 07-09-2024 01:28 PM AF 14:02 106 bpm avg. Steady 07-09-2024 10:09 AM AF 33:52 69 bpm avg. Steady 07-08-2024 11:36 PM AF 1:3:03 80 bpm avg. Steady 07-08-2024 07:55 PM AF 31:22 96 bpm avg. Steady /loreta/ VANNESSA TURNERN,RN,CEPS REGISTERED NURSE Signed: 07/31/2024 12:38 Receipt Acknowledged By: 08/02/2024 19:00 /loreta/ JOSE CLOUD MD CLINICAL CARDIAC SAUSAGE COOKER 08/02/2024 ADDENDUM STATUS: COMPLETED I have read and agree with the fellow's summary of the patient's history and the review and interpretation of the pertinent diagnostic studies. I have also read and agree with their assessment and recommendations which we developed together. Any additional documentation or exceptions are documented below. Will also alert his primary cardiologists Dr. Valdez and Dr. Miller. /loreta/ JOSE CLOUD MD CLINICAL CARDIAC SAUSAGE COOKER Signed: 08/02/2024 19:01 Receipt Acknowledged By: 08/06/2024 14:37 /es/ NORIS VALDEZ MD PLANNING SUPERVISOR 08/03/2024 08:07 /loreta/ JACOBO MILLER MD,[facility] STAFF PHYSICAL OPTICS TEACHER 08/07/2024 ADDENDUM STATUS: COMPLETED PATIENT: ELI RUELAS SSN: [id number] : 1955 DATE: 2024-08-07 12:31 SUMMARY: Alert Transmission Arrhythmia: - AFL/AF episodes noted, longest episode >=24 hours AF in progress AF burden 100% ON APIXABAN DR CLOUD Can we turn off AF alerts? PLEASE TAG ME BACK [facility] Apprised /loreta/ Verna Erickson,RN,BSN Registered Nurse Signed: 08/07/2024 14:18 Receipt Acknowledged By: 08/08/2024 14:12 /loreta/ JOSE CLOUD MD CLINICAL CARDIAC SAUSAGE COOKER 08/08/2024 ADDENDUM STATUS: COMPLETED ok to turn off AF alerts /loreta/ JOSE CLOUD MD CLINICAL CARDIAC SAUSAGE COOKER Signed: 08/08/2024 14:13 Receipt Acknowledged By: * AWAITING SIGNATURE * VERNA ERICKSON [facility]
--- OUTSIDE RECORDS SUMMARY | 2024-09-22 15:06 | XMS_ITS | Encounter Summary ---
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 [place] [facility] Address [address] [place] [address] Care Team Providers Care Powertrain Design Engineer Name Role Phone JESSICA KAY Primary Care [...] ACTIV E [place] HIGH Jun 03, 2013 [phone] EMMAMICHELLE DiamondROSITA SPOUSE MEDICARE (WNR) MEDICARE (M) PART A Jul 04, 2016 PART A [id number] [phone] EMMAMICHELLE Diamond,ELI PATIENT MEDICARE (WNR) MEDICARE (M) PART B Jul 04, 2016 PART B [id number] [phone] EMMAMICHELLE Diamond,ELI PATIENT MEDICARE (WNR) MEDICARE (M) PART A Jul 04, 2016 PART A [id number] EMMASO N,ELI PATIENT MEDICARE (WNR) MEDICARE (M) PART B Jul 04, 2016 PART B [id number] EMMASO N,ELI PATIENT MEDICARE (WNR) MEDICARE (M) PART A Jul 04, 2016 PART A [id number] EMMASO N,ELI PATIENT MEDICARE (WNR) MEDICARE (M) PART B Jul 04, 2016 PART B [id number] EMMASO N,ELI PATIENT MEDICARE (WNR) MEDICARE (M) PART A Jul 04, 2016 PART A [id number] EMMASO N,ELI PATIENT MEDICARE (WNR) MEDICARE (M) PART B Jul 04, 2016 PART B [id number] [phone] EMMASO N,ELI PATIENT PRIME THERAPEUTI CS RX PRESCRIPT ION RX PLAN Jun 03, 2013 [id number] [phone] EMMASO N,ELI PATIENT Selected Encounter This section includes the information on record at [place] for the Encounter. Date/Time Encounter Type Encounter Description Reason Pro vider Source Sep 22, 2024 12:56 PM Outpatient Encounter TELEPHONE TRIAGE IHE Encounter Template Text not used by [place] Plan of Treatment: Future Appointments (+ 6 months) and Future Tests (+/- 45 days) The Plan of Treatment section includes future care activities for the patient from all [place] treatmentfacilities. This section includes future appointments and future orders which are active, pending or scheduled. Future Appointments This section includes appointments that were scheduled to occur 6 months from the date of the Encounter, up to a maximum of 20 appointments. The data comes from all [place] treatment facilities. Appointment Date/Time Appointment Type Appointme nt Facility Name Jan 28, 2025 02:00 PM AMBULATORY - MEDICINE [facility] 2025 01:00 PM AMBULATORY - MEDICINE [facility] Active, Pending, and Scheduled Orders This section includes a listing of several types of active, pending, and scheduled orders, including clinic medications orders, diagnostic test orders, procedure orders and consult orders; where the start date of the order is 45 days before the date of the Encounter or 45 days after the date of theEncounter. The data comes from all [place] treatment facilities. Test Date/Time Test Type Test Details Facility Name Sep 14, 2024 11:02 AM Consult Order CANCER TESSA VIVORSHIP CONSULT OUTPT ST[facility] Cons Consignee's Choice [facility] Lab Results: +/- 30 days [...] Unit Interpretation Reference Range Specimen Type Comment Sep 01, 2024 12:48 PM [facility] BASIC METABOLIC PANEL PLASMA Specimen Type: PLASMA Comment: No hemolysis noted. Ordering Provider: PASTOR ROBERTSON Report Released Date/Time: Sep 01, 2024 12:22 PM Reporting Lab: [address] [address] Performing Lab: [address] [address] CREATININE 1.28 mg/dL 0.7-1.3 UREA NITROGEN 21.6 mg/dL 9.0-25.0 GLUCOSE 148 mg/dL H 72-99 SODIUM 141 meq/L 136-145 POTASSIUM 5.1 meq/L H 3.5-5 CHLORIDE 105 meq/L 98-107 CARBON DIOXIDE 30 meq/L 22-31 CALCIUM 9.5 mg/dL 8.4-10.4 EGFR (CKD-EPI 2020) 61.3 >60 Aug 28, 2024 02:18 PM [facility] BRAIN NATRIURETIC PEPTIDE PLASMA Specimen Type : PLASMA No comment entered. Ordering Provider: PASTOR ROBERTSON Report Released Date/Time: Aug 28, 2024 01:59 PM Reporting Lab: [address] [address] Performing Lab: [address] [address] BRAIN NATRIURETIC PEPTIDE 356.1 pg/mL H 0- 100 Aug 28, 2024 02:18 PM [facility] BASIC METABOLIC PANEL PLASMA Specimen Type: PL ASMA Comment: No hemolysis noted. Ordering Provider: PASTOR ROBERTSON Report Released Date/Time: Aug 28, 2024 01:59 PM Reporting Lab: [facility] [address] [place] [id number] Performing Lab: [address] [address] CREATININE 1.09 mg/dL 0.7-1.3 UREA NITROGEN 16.4 mg/dL 9.0-25.0 GLUCOSE 110 mg/dL H 72-99 SODIUM 139 meq/L 136-145 POTASSIUM 4.7 meq/L 3.5-5 CHLORIDE 105 meq/L 98-107 CARBON DIOXIDE 27 meq/L 22-31 CALCIUM 9.1 mg/dL 8.4-10.4 EGFR (CKD-EPI 2020) 74.4 >60 Aug 28, 2024 02:18 PM [facility] CBC BLOOD Specimen Type: BLOOD No comment entered. Ordering Provider: PASTOR ROBERTSON Report Released Date/Time: Aug 28, 2024 01:59 PM Reporting Lab: [address] [address] Performing Lab: [address] [address] WBC 11.9 10*3/uL H 3.6-11.2 RBC 4.47 [...] 0.60 BASOPHILS, ABSOLUTE 0.04 10*3/uL 0.00-0. 20 Radiology Reports: +/- 30 days of the [...] the Encounter. The data comes from all [place] treatment facilities. Date/Time Radiology Report Provider Source Aug 28, 2024 11:[address] THORAX, DIAGNOS TIC, W/CONTRAST: RUELASELI JOSY [id number] -1955 M Exm Date: AUG 28, 2024@11:50 Req Phys: ALEM LUTHER Loc: [facility]-PULMONARY INTERVENTIONAL (R Img Loc: [facility]-CT IMAGING [facility] Service: Unknown [address] [address] (Case [id number] COMPLETE) CT THORAX, DIAGNOSTIC, W/CONTRAS(CT Detailed) CPT:19367 Contrast Media : Non-ionic Iodinated Reason for Study: Surveillance post resection of jennifer ca 2020 Clinical History: Responsible Attending: Shante Attending Contact Number: [phone] Resident Contact Number: Allergies listed in CPRS chart: CHANTIX Creatinine: CREATININE 1.16 mg/dL 02/15/2023 11:44 /eGFR: STL EGFR (within one year). CREATININE 1.16 mg/dL (02/15/23 11:44) Wt: 264 lb [119.75 kg] (08/30/2023 14:51) History of: Renal failure, chronic or acute renal disease: NO Report Status: Verified Date Reported: AUG 30, 2024 Date Verified: AUG 30, 2024 Hot Billet Shear Operator E-Sig:/ES/Oswald Coronado MD Report: INDICATION: Surveillance post [...] No acute upper abdominal process. Dictated by Dakota Hampton MD (residential manager). I, Oswald Coronado, have reviewed the images and report and concur with these findings. Primary Interpreting Staff: Oswald Coronado MD, Radiologist (Hot Billet Shear Operator) Primary Interpreting Resident: Resident ANN MARIE Physician /OSWALD HAMMONDS [facility] Encounter Notes: All associated encounter notes This section contains the clinical notes associated to the Encounter. Date/Time Encounter Note(s) Provider Source Sep 22, 2024 12:57 PM RN PROGRESS NOTE: LOCAL TITLE: CCC: CLINICAL TRIAGE STANDARD TITLE: RN PROGRESS NOTE DATE OF NOTE: SEP 22, 2024@12:57:02 ENTRY DATE: SEP 22, 2024@12:57:03 AUTHOR: ELANA JO COSIGNER: URGENCY: STATUS: COMPLETED Caller Verification Caller/Recipient Relation to Patient: Self Caller Name: ELI RUELAS Emergency Contact: ROSETTE RUELAS Triage Summary Conducted triage/discussed symptoms Utilized the Triage Tool: Yes Chief Complaint: Difficulty Breathing System WHEN: Now, 911 Nurse's Recommendation / WHEN: 911 System WHERE: Emergency department Nurse's Recommendation / WHERE: ED [facility] Patient Disposition Patient/Caregiver agrees to plan of care: No Patient WHERE: ED Other Patient WHEN: Now Patient is Urgent or Emergent Nursing Plan and Disposition Referred patient to higher level of care Instructed to go to Emergency Room (ER) Advised of Financial Disclaimer: Patient advised that recommendation for care provided during the call does not constitute an approval or authorization for payment by the [place] or its staff. Patient advised to report a community ED visit to the [facility] Office of Community Care at within 72 hours. Other course(s) of action Generated msg to PACT/Provider Nurse Summary Nurse Summary: called stating that he has been having difficulty breathing. [place] stated that he was in the hospital for 4 days at the end of July and diagnosed with Flu A. stated that in August he was seen by PCP and put on a diuretic and a steroid and it did not help. [place] stated that he was diagnosed with heart failure and he was told he needs an ablation but no one has called him to set it up. [place] confirmed he was having chest discomfort and broke out into a sweat. Based on triage, recommended [place] get the ER and asked if this RN could call 911. [place] declined, stating they could get to the ER. Please see triage note---recommending ER now. Provided with the [facility] number to call within 72 hours of ER/Hospital visit for consideration of payment of services and follow up. Will co-sign PACT as FYI, for review, and follow up. Clinical Contact Center Codes Clinic/Location: V15 STL PHONE CCC RN Decision Support System Output: Triage Complete Triage Date: 09/22/2024, 12:51 PM Triage Note: Decision Support Tool Used: [facility] Phone Triage 22 Sep 2024 17:49:36 +0000 [facility] Demographics 69 y/o Male Results CC: Difficulty Breathing Software suggested: , 911 Software suggested follow-up location: Emergency department Values and Measures Duration of CC: 2 Months Positive Responses HPI: chest pain HPI: diaphoresis, with dyspnea VS: temperature not taken Negative Responses Denies: HPI: cough, new or worsening Denies: HPI: syncope, with dyspnea Denies: HPI: wheezing, new or worsening Denies: PMH: angina Denies: PMH: heart attack IMPORTANT: This note was created by [facility] Clinical Contact Center staff. Please do not alert the staff member by adding them as a signer for future communications. Alerts are not monitored by this user. /loreta/ ELANA JO Triage Nurse Signed: 09/22/2024 12:57 Receipt Acknowledged By: 09/22/2024 13:52 /es/ Ofe Brand RN BSN REGISTERED NURSE 09/22/2024 14:52 /es/ WES [facility] ADULT NURSE PRACTITIONER ELANA JO [facility]
--- OUTSIDE RECORDS SUMMARY | 2024-09-22 15:06 | XMS_ITS ---
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 [place] Organization [facility] [place] Address [address] [place] [address] Care Team Providers Care Laborer Fryer Farm Name Role Phone JESSICA KAY Primary Care [...] ACTIV E [place] HIGH Jun 03, 2013 [id number] [phone] JOSEPHINE DiamondROSITA SPOUSE MEDICARE (WNR) MEDICARE (M) PART A Jul 04, 2016 PART A [id number] [phone] JOSEPHINE DiamondELI PATIENT MEDICARE (WNR) MEDICARE (M) PART B Jul 04, 2016 PART B [id number] [phone] JOSEPHINE Diamond,ELI PATIENT MEDICARE (WNR) MEDICARE (M) PART A Jul 04, 2016 PART A [id number] RICHARDSO N,ELI PATIENT MEDICARE (WNR) MEDICARE (M) PART B Jul 04, 2016 PART B [id number] RICHARDSO N,ELI PATIENT MEDICARE (WNR) MEDICARE (M) PART A Jul 04, 2016 PART A [id number] [phone] RICHARDSO N,ELI PATIENT MEDICARE (WNR) MEDICARE (M) PART B Jul 04, 2016 PART B [id number] RICHARDSO N,ELI PATIENT MEDICARE (WNR) MEDICARE (M) PART A Jul 04, 2016 PART A [id number] [phone] RICHARDSO N,ELI PATIENT MEDICARE (WNR) MEDICARE (M) PART B Jul 04, 2016 PART B [id number] RICHARDSO N,ELI PATIENT PRIME THERAPEUTI CS RX PRESCRIPT ION RX PLAN Jun 03, 2013 [id number] [phone] RICHARDSO N,ELI PATIENT Selected Encounter This section includes the information on record at [place] for the Encounter. Date/Time Encounter Type Encounter Description Reason Provider Source Nov 12, 2023 11:00 AM OFFICE O/P EST LOW 20 MIN PULMONARY/CHEST ICD-10-CM F17.210 Nicotine dependence, cigarettes, uncomplicated GLENDA SUTHERLAND Redd Encounter Template Text not used by [place] Assessments - Encounter Diagnoses This section includes the primary and secondary diagnoses documented for the Encounter. Date/Time Primary/Secondary Diagnosis Diagnosis Name Provider Source Nov 12, 2023 11:18 AM PRIMARY Nicotine dependence, cigarettes, uncomplicated GLENDA SUTHERLAND [facility] Nov 12, 2023 11:18 AM SECONDARY Chronic obstructive pulmonary disease, unspecified GLENDA SUTHERLAND Viridiana FELDMAN [facility] Plan of Treatment: Future Appointments (+ 6 months) and Future Tests (+/- 45 days) The Plan of Treatment section includes future care activities for the patient from all [place] treatmentfacilities. This section includes future appointments and future orders which are active, pending or scheduled. Future Appointments This section includes appointments that were scheduled to occur 6 months from the date of the Encounter, up to a maximum of 20 appointments. The data comes from all [place] treatment facilities. Appointment Date/Time Appointment Type Appointme nt Facility Name Nov 21, 2023 01:00 PM AMBULATORY - NONE [facility] Dec 12, 2023 02:00 PM AMBULATORY - NONE [facility] Dec 17, 2023 11:00 AM AMBULATORY - SURGERY [facility] Dec 19, 2023 01:00 PM AMBULATORY - NONE [facility] Dec 19, 2023 03:00 PM AMBULATORY - MEDICINE [facility] Dec 23, 2023 10:00 AM AMBULATORY - MEDICINE [facility] Dec 26, 2023 01:00 PM AMBULATORY - NONE [facility] Dec 31, 2023 02:00 PM AM[facility]ULATORY - NONE [facility] Jan 02, 2024 02:00 PM AMBULATORY - NONE [facility] Jan 03, 2024 01:30 PM AMBULATORY - MEDICINE [facility] Jan 09, 2024 01:00 PM AMBULATORY - NONE [facility] Jan 22, 2024 01:15 PM AMBULATORY - MEDICINE [facility] Mar 19, 2024 04:30 PM AMBULATORY - MEDICINE [facility] Apr 08, 2024 02:30 PM AMBULATORY - MEDICINE [facility] Apr 16, 2024 07:30 AM AMBULATORY - MEDICINE [facility] Encounter Notes: All associated encounter notes This section contains the clinical notes associated to the Encounter. Date/Time Encounter Note(s) Provider Source Nov 12, 2023 11:07 AM SMOKING CESSATION NOTE: LOCAL TITLE: SMOKING CESSATION ST STANDARD TITLE: SMOKING CESSATION NOTE DATE OF NOTE: NOV 12, 2023@11:07 ENTRY DATE: NOV 12, 2023@11:08 AUTHOR: GLENDA SUTHERLAND COSIGNER: URGENCY: STATUS: COMPLETED preferred to complete Appointment over the phone. Emergency number confirmed. Interval HPI: Mr. Stewart is a 68 yo M. pMHX: NSCLC s/p curative resection August 2020, Current Tobacco User, Moderate COPD--Gold 2A. Pt is not a candidate for LCS d/t his hx of Lung CA. Meeting with N[place]ita to discuss his progress with smoking cessation. [...] 4PM ON AFTERNOON PRIOR TO TEST. CALL [phone] WITH ANY QUESTIONS ABOUT THESE INSTRUCTIONS. MAIL [...] BY MOUTH EVERY ACTIVE EVENING 4) Non-VA LODOSWEQAWGV27.5/VILANTEROL 25MCG 30D INH 1 ACTIVE PUFF ORAL [...] maintenance therapy once taken >12 weeks. - [facility] consult for Acupuncture - Goal of [...] completed, the results will be found in [facility]. # HEALTH PROMOTION/HEALTH MAINTENANCE & EDUCATION [...] SERVICE CCT Signed: 11/12/2023 11:[address] [facility]
--- OUTSIDE RECORDS SUMMARY | 2024-09-22 15:06 | XMS_ITS | Clinical Summary ---
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
--- OUTSIDE RECORDS SUMMARY | 2024-09-22 15:06 | XMS_ITS | Encounter Summary ---
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 [place] Organization [facility] Address [address] [place] [address] Care Team Providers Care Finishing Technician Name Role Phone JESSICA KAY Primary Care [...] ACTIV E [place] HIGH Jun 03, 2013 [id number] [phone] JOSEPHINE DiamondROSITA SPOUSE MEDICARE (WNR) MEDICARE (M) PART A Jul 04, 2016 PART A [id number] JOSEPHINE DiamondELI PATIENT MEDICARE (WNR) MEDICARE (M) PART B Jul 04, 2016 PART B [id number] [phone] JOSEPHINE Diamond,ELI PATIENT MEDICARE (WNR) MEDICARE (M) PART A Jul 04, 2016 PART A [id number] RICHARDSO N,ELI PATIENT MEDICARE (WNR) MEDICARE (M) PART B Jul 04, 2016 PART B [id number] RICHARDSO N,ELI PATIENT MEDICARE (WNR) MEDICARE (M) PART A Jul 04, 2016 PART A [id number] RICHARDSO N,ELI PATIENT MEDICARE (WNR) MEDICARE (M) PART B Jul 04, 2016 PART B [id number] RICHARDSO N,ELI PATIENT MEDICARE (WNR) MEDICARE (M) PART A Jul 04, 2016 PART A [id number] RICHARDSO N,ELI PATIENT MEDICARE (WNR) MEDICARE (M) PART B Jul 04, 2016 PART B [id number] RICHARDSO N,ELI PATIENT PRIME THERAPEUTI CS RX PRESCRIPT ION RX PLAN Jun 03, 2013 [id number] [phone] RICHARDSO N,ELI PATIENT Selected Encounter This section includes the information on record at [place] for the Encounter. Date/Time Encounter Type Encounter Description Reason Provider Source Aug 07, 2024 01:00 PM OFFICE O/P EST MOD 30 MIN PRIMARY CARE/MEDICINE ICD-10-CM J44.1 Chronic obstructive pulmonary disease w (acute) exacerbation STANTON GARCIA IHRedd Encounter Template Text not used by [place] Assessments - Encounter Diagnoses This section includes the primary and secondary diagnoses documented for the Encounter. Date/Time Primary/Secondary Diagnosis Diagnosis Name Provider Source Aug 07, 2024 02:00 PM PRIMARY Chronic obstructive pulmonary disease w (acute) exacerbation JOSÉ GARCIA [facility] Plan of Treatment: Future Appointments (+ 6 months) and Future Tests (+/- 45 days) The Plan of Treatment section includes future care activities for the patient from all [place] treatmentfacilities. This section includes future appointments and future orders which are active, pending or scheduled. Future Appointments This section includes appointments that were scheduled to occur 6 months from the date of the Encounter, up to a maximum of 20 appointments. The data comes from all [place] treatment facilities. Appointment Date/Time Appointment Type Appointme nt Facility Name Aug 28, 2024 12:00 PM AMBULATORY - NONE [facility] Aug 28, 2024 02:30 PM AMBULATORY - MEDICINE [facility] Sep 16, 2024 01:00 PM AMBULATORY - MEDICINE [facility] Sep 17, 2024 02:00 PM AMBULATORY - MEDICINE [facility] Jan 28, 2025 02:00 PM AMBULATORY - MEDICINE [facility] Active, Pending, and Scheduled Orders This section includes a listing of several types of active, pending, and scheduled orders, including clinic medications orders, diagnostic test orders, procedure orders and consult orders; where the start date of the order is 45 days before the date of the Encounter or 45 days after the date of theEncounter. The data comes from all [place] treatment facilities. Test Date/Time Test Type Test Details Facility Name Sep 14, 2024 11:02 AM Consult Order [facility]ER [facility]ESSA [facility] CONSULT OUTPT [facility] Cons Construction Pit Worker's Choice [facility] Lab Results: +/- 30 days of the encounter This section includes the Chemistry and Hematology Lab Results on record with [place] for the patient. Radiology Reports and Pathology Reports are provided separately, in subsequent sections. Lab Results This section contains the Chemistry/Hematology Results that were resulted 30 days before or 30 daysafter the date of the Encounter. Date/Time Source Result Type Result - Unit Interpretation Reference Range Specimen Type Comment Sep 01, 2024 12:48 PM [facility] BASIC METABOLIC PANEL PLASMA Specimen Type: PLASMA Comment: No hemolysis noted. Ordering Provider: PASTOR PALUMBO Report Released Date/Time: Sep 01, 2024 12:22 PM Reporting Lab: [facility] [address] [facility] [address] Performing Lab: [facility] [address] [address] CREATININE 1.28 mg/dL 0.7-1.3 UREA NITROGEN 21.6 mg/dL 9.0-25.0 GLUCOSE 148 mg/dL H 72-99 SODIUM 141 meq/L 136-145 POTASSIUM 5.1 meq/L H 3.5-5 CHLORIDE 105 meq/L 98-107 CARBON DIOXIDE 30 meq/L 22-31 CALCIUM 9.5 mg/dL 8.4-10.4 EGFR (CKD-EPI 2020) 61.3 >60 Aug 28, 2024 02:18 PM [facility] BRAIN NATRIURETIC PEPTIDE PLASMA Specimen Type : PLASMA No comment entered. Ordering Provider: PASTOR PALUMBO Report Released Date/Time: Aug 28, 2024 01:59 PM Reporting Lab: [address] [address] Performing Lab: [address] [address] BRAIN NATRIURETIC PEPTIDE 356.1 pg/mL H 0- 100 Aug 28, 2024 02:18 PM [facility] BASIC METABOLIC PANEL PLASMA Specimen Type: PL ASMA Comment: No hemolysis noted. Ordering Provider: PASTOR PALUMBO Report Released Date/Time: Aug 28, 2024 01:59 PM Reporting Lab: [address] [address] Performing Lab: [address] [address] CREATININE 1.09 mg/dL 0.7-1.3 UREA NITROGEN 16.4 mg/dL 9.0-25.0 GLUCOSE 110 mg/dL H 72-99 SODIUM 139 meq/L 136-145 POTASSIUM 4.7 meq/L 3.5-5 CHLORIDE 105 meq/L 98-107 CARBON DIOXIDE 27 meq/L 22-31 CALCIUM 9.1 mg/dL 8.4-10.4 EGFR (CKD-EPI 2020) 74.4 >60 Aug 28, 2024 02:[address] [facility] CBC BLOOD Specimen Type: BLOOD No comment entered. Ordering Provider: PASTOR PALUMBO Report Released Date/Time: Aug 28, 2024 01:59 PM Reporting Lab: [address] [address] Performing Lab: [address] [address] WBC 11.9 10*3/uL H 3.6-11.2 RBC 4.47 [...] 0.00-0. 20 Aug 07, 2024 02:08 PM [facility] CREATININE(EGFR) PLASMA Specimen Type: PLASM A No comment entered. Ordering Provider: EB VIZCARRA Report Released Date/Time: Jul 06, 2024 11:52 AM Reporting Lab: [facility] [address] [place] [address] Performing Lab: [facility] [address] [place] [phone] CREATININE 1.14 mg/dL 0.70-1.30 EGFR (CKD-EPI 2020) 70.49 >60 Aug 07, 2024 02:08 PM [facility] AST/SGOT PLASMA Specimen Type: PLASM A No comment entered. Ordering Provider: EB VIZCARRA Report Released Date/Time: Jul 06, 2024 11:52 AM Reporting Lab: [facility] [address] [place] [phone] Performing Lab: [facility] [address] [facility] [address] AST/SGOT 24 U/L 5-34 Aug 07, 2024 02:08 PM [facility] HGB,HCT,PLT BLOOD Specimen Type: BLOOD No comment entered. Ordering Provider: EB VIZCARRA Report Released Date/Time: Jul 06, 2024 11:52 AM Reporting Lab: [facility] [address] [facility] [address] Performing Lab: [facility] [address] [facility] [address] HGB 14.6 g/dL 13.1-16.8 HCT 46.1 38.2-48.4 PLT 257 10*3/uL 150-400 Aug 07, 2024 02:08 PM [facility] ALT/SGPT PLASMA Specimen Type: PLASM A No comment entered. Ordering Provider: EB VIZCARRA Report Released Date/Time: Jul 06, 2024 11:52 AM Reporting Lab: [facility] [address] [facility] [address] Performing Lab: [facility] [address] [facility] [address] ALT/SGPT 42 U/L H 8-40 Vital Signs: All taken on the encounter date This section contains inpatient and outpatient Vital Signs collected on the date of the Encounter. Date/Time Temperature Pulse Blood Pressure Respiratory Rate SP02 Pain Height Weight Body Mass Index Source Aug 07, 2024 01:02 PM 134/78 [facility] N Aug 07, 2024 01:02 PM 97.6 70 142/81 20 93 7 264.2 33 [facility] N Social History: Smoking Status (Most current) and Tobacco Use (All prior to encounter date) This section includes the most current, and the historical, smoking and tobacco- related health factors from the [place] facility where the Encounter took place. Current Smoking Status This section includes the most current smoking, or tobacco-related health factor, from the [place] facility where the Encounter took place. Date/Time Current Smoking Status Comment Chanell garcia Apr 08, 2024 02:30 PM [place]-TOBACCO USE CARYN RY DAY CIGARETTES [facility] Tobacco Use History This section includes a history of the smoking, or tobacco-related health factors, that were collected on or before the date of the Encounter. The data comes from the [place] facility where the Encounter took place. 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 [facility] Apr 08, 2024 02:30 PM VA-TOBACCO USE CARYN RY DAY CIGARETTES [facility] Apr 08, 2024 02:30 PM VA-TOBACCO USE MED NO [facility] Feb 15, 2023 11:00 AM VA-TOBACCO USE 30 YEARS OR MORE [facility] Feb 15, 2023 11:00 AM VA-TOBACCO USE ADVICE [facility] Feb 15, 2023 11:00 AM VA-TOBACCO USE 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 [facility] Feb 15, 2023 11:00 AM VA-TOBACCO USE MED NO [facility] Feb 15, 2023 11:00 AM VA-TOBACCO USE WI 30 MIN OF WAKEUP [facility] Feb 15, 2023 11:00 AM VA-TOBACCO USER EVERY DAY [facility] Feb 19, 2022 11:30 AM VA-TOBACCO DOESNT USE WI 30 MIN WAKEUP [facility] Feb 19, 2022 11:30 AM VA-TOBACCO USE 30 YEARS OR MORE [facility] Feb 19, 2022 11:30 AM VA-TOBACCO USE ADVICE [facility] Feb 19, 2022 11:30 AM VA-TOBACCO USE 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 Radiology Reports: +/- 30 days of [...] the Encounter. The data comes from all [place] treatment facilities. Date/Time Radiology Report Provider Source Aug 28, 2024 11:[address] THORAX, DIAGNOS TIC, W/CONTRAST: ELI RUELAS JOSY [id number] -[id number] M Exm Date: AUG 28, 2024@11:50 Req Phys: ALEM LUTHER Loc: [facility]-PULMONARY INTERVENTIONAL (R Img Loc: [facility]-CT IMAGING [facility] Service: Unknown [address] [address] (Case [id number] COMPLETE) CT THORAX, DIAGNOSTIC, W/CONTRAS(CT Detailed) CPT:33329 Contrast Media : Non-ionic Iodinated Reason for Study: Surveillance post resection of jennifer ca 2020 Clinical History: Responsible Attending: Shante Attending Contact Number: [phone] Resident Contact Number: Allergies listed in CPRS chart: CHANTIX Creatinine: CREATININE 1.16 mg/dL 02/15/2023 11:44 /eGFR: STL EGFR (within one year). CREATININE 1.16 mg/dL (02/15/23 11:44) Wt: 264 lb [119.75 kg] (08/30/2023 14:51) History of: Renal failure, chronic or acute renal disease: NO Report Status: Verified Date Reported: AUG 30, 2024 Date Verified: AUG 30, 2024 Business Intern E-Sig:/ES/Oswald Coronado MD Report: INDICATION: Surveillance post [...] abdominal process. Dictated by Raúl Hampton MD (residential manager). I, Oswald Coronado, have reviewed the images and report and concur with these findings. Primary Interpreting Staff: Oswald Coronado MD, Radiologist (Business Intern) Primary Interpreting Resident: RAÚL HAMPTON, Resident Physician /OSWALD HAMMONDS [facility] Aug 07, 2024 02:00 PM CHEST X-RAY, 2 VIE WS: [place] RU[place] [facility] [place] [id number] -1955 Ex Date: AUG 07, 2024@14:00 Req Phys: WES GARCIA Pat Loc: [facility]PACT E3 NEW PATIENT (Req'g Img Loc: [facility] Service: Unknown [facility], [address] [address] (Case [id number] COMPLETE) CHEST X-RAY, 2 VIEWS (RAD Detailed) CPT:76497 Reason for Study: COPD/Dyspnea/s/p influenza A Clinical History: COPD/Dyspnea./s/p Influenza A Report Status: Verified Date Reported: AUG 12, 2024 Date Verified: AUG 12, 2024 Business Intern E-Sig:/ES/TAMMI CARRERO Report: CHEST X-RAY, 2 VIEWS HISTORY: COPD/Dyspnea/s/p influenza A FINDINGS: Cardiac monitoring device in place. Hyperinflation and other chronic findings. The heart size and pulmonary vasculature are normal. There is no consolidating infiltrate, effusion or pneumothorax. Impression: No active lung disease. RR Primary Interpreting Staff: TAMMI CARRERO, Staff Physician ([place]) /TAMMI [facility] Encounter Notes: All associated encounter notes This section contains the clinical notes associated to the Encounter. Date/Time Encounter Note(s) Provider Source Sep 02, 2024 01:16 PM ADDENDUM: LOCAL TITLE: Addendum STANDARD TITLE: ADDENDUM DATE OF NOTE: SEP 02, 2024@13:16:51 ENTRY DATE: SEP 02, 2024@13:16:52 AUTHOR: WES GARCIA EXP COSIGNER: URGENCY: STATUS: COMPLETED RHONDA Morrison ======> Please call pt, explain to him that I spoke with Dr. Palumbo in pulmonary and he needs to be seen next week in [place]. (will need 12-lead EKG, labs and consider repeat Echo) /loreta/ WES GARCIA APRN-B.CViridiana [facility] ADULT NURSE PRACTITIONER Signed: 09/02/2024 13:19 Receipt Acknowledged By: 09/04/2024 11:50 /loreta/ Ofe Morrison RN BSN REGISTERED NURSE --- Original Document --- 08/07/24 PRIMARY CARE PROVIDER ESTABLISHED VISIT STL: Patient is 69 y/o male Reason for visit: Scheduled follow-up Chief Complaint: Scheduled for evaluation of acute respiratory presentation History of Present Illness: s/p inpatient treatment at [facility] in [place], [place] for influenza A. Discharged after 4 days. I really didn't feel much better. Inpatient from 07/30/2024 until 08/02/2024. Reports wheezing, shortness of breath, cough is productive of clear phelgm. No fever. Is fatigued and tired. COPD, Using Albuterol 90mcg 2 puffs, 4 times a day and Umeclidinium 62.5/Vilanterol 25mcg 1 puff daily. Discharged on: Prednisone 40mg, 2 days Augmentin 875/125mg, 1 po BID - 8 days Doxycycline 100mg, 1 po BID - - 2 days Tamiflu 75mg every 12 hours - 3 days Problem List: 1) History of colonic polyp 2) Chronic [...] stage 3A 17) CVA - Cerebrovascular accident 18) PAF - Paroxysmal atrial fibrillation Immunization: ADMINISTERED Immunization Series Date Facility Reaction Info COVID-19 ([employer]), MRNA, LNP-S, * 1 02/19/2022 [facility]* <C> COVID-19 ([employer]), MRNA, LNP-S, * 3 04/05/2021 [facility]* <C> COVID-19 ([employer]), MRNA, LNP-S, * 2 08/21/2020 [place]* COVID-19 ([employer]), MRNA, LNP-S, * 1 08/01/2020 [facility]* COVID-19 ([employer]), MRNA, LNP-S, * 4 12/13/2021 [facility] COVID-19 ([employer]), MRNA, LNP-S, * [facility] COVID-19 ([employer]), MRNA, LNP-S, * 1 [facility] INFLUENZA, HIGH-DOSE, TRIVALENT,* 04/08/2024 [facility]* INFLUENZA, SPLIT VIRUS, QUADRIVA* 04/05/2021 [facility]* INFLUENZA, UNSPECIFIED FORMULATI* 03/05/2023 [facility] INFLUENZA, UNSPECIFIED FORMULATI* [facility] INFLUENZA, UNSPECIFIED FORMULATI* Md office INFLUENZA, UNSPECIFIED FORMULATI* 02/10/2019 Md office PNEUMOCOCCAL CONJUGATE PCV 13 02/25/2015 [facility] <C> PNEUMOCOCCAL POLYSACCHARIDE PPV23 03/09/2014 [facility] TDAP 03/09/2019 [facility]* <C> ZOSTER LIVE [facility] <C> ZOSTER RECOMBINANT 2 08/24/2021 [facility]* ZOSTER RECOMBINANT 1 10/11/2020 [facility]* CONTRAINDICATED No data available REFUSED ======= Immunization Date Facility Info PNEUMOCOCCAL POLYSACCHARIDE PPV23 05/20/2024 [facility]* <I> PNEUMOCOCCAL POLYSACCHARIDE PPV23 04/08/2024 [facility]* <I> <C> See the Detailed Immunizations Health Summary Component[DIM] for Comments <I> See the Detailed Immunizations Health Summary Component[DIM] for Additional Information * Value is truncated; see the Detailed Immunizations Health Summary Component[DIM] for complete text FAMILY HISTORY: SOCIAL HISTORY: NICOTINE: Nicotine User: Yes Type of Nicotine: Other tobacco products Other Tobacco in Remission - History of History of amount of usage/PPD using E-vape - has nicotine in it ILLICIT DRUGS: Present user Comment/Type of Drug: using MJ Gummies OTHER: no ETOH Medication Review: The essential med list for review which includes the patient's active VA prescriptions and if applicable, remote VA prescriptions, non-VA prescriptions, and discontinued VA prescriptions within the last 90 days and known allergies including local and remote allergies have been reviewed. Allergies:CHANTIX Active and Recently Outpatient Medications (excluding Supplies): Active Outpatient Medications Status 1) ALBUTEROL [...] SPASM Active Non-VA Medications Status 1) Non-VA ASPIRIN 81MG EC TAB 81MG BY MOUTH ONCE A DAY ACTIVE 2) Non-VA LISINOPRIL 40MG TAB 20MG BY MOUTH ONCE A DAY ACTIVE 3) Non-VA METOPROLOL SUCCINATE 50MG SA TAB 25MG BY MOUTH ONCE A ACTIVE DAY 4) Non-VA ROSUVASTATIN CA 40MG TAB 20MG BY MOUTH EVERY EVENING ACTIVE 5) Non-VA [id number]/VILANTEROL 25MCG 30D INH 1 PUFF ORAL ACTIVE INHALATION ONCE A DAY 9 Total Medications Review of Systems: General:No Complaints of fever, chills, malaise, fatigue, night sweats, weight gain, weight loss, swollen glands, temp intolerance. Integumentary (skin): No complaints of diaphorectic, bruise, rash, lesions Ear, Nose, Throat: No complaints of blurred vision, glaucoma, cataracts, headache, syncope, dizziness, vertigo, rhinitis, epistaxis, congestion, sinus pain, sore neck, hoarseness, sore throat, oral lesions, earache, difficulty hearing, hearing loss, tinnitus. Respiratory: -- SHORTNESS OF BREATH, WHEEZING Cardiovascular: No complaints of SOB, cough, wheezing, chest pain, heart murmur, hemoptysis, orthopnea/PND, palpatations, pedal edema, claudication. Gastrointestinal: No complaints of weight change, poor appetite, heartburn, nausea, vomiting, anorexia, abdominal pain, dysphagia, distention, cancer, constipation, diarrhea, change in bowel habits, reflux, ulcer, food, intolerance, melana, bloody stools, hemorrhoids. Urinary: No complaints of hematuria, nocturia, polyuria, dysuria, nocturia, pain/buring on urination, hesitancy, urinary retention, incontinence. Musculoskeletal: No complaints of weakness, pain, stiffness, back pain, joint pain, arthritis, edema, DVT, claudification, gout. Neurological: No complaints of weakness, tremors, irritable, sleep disturbance, memory loss, headache, unsteady, lethargic, dizziness, syncope, paralysis, numbness, seizures, impaired speech, depression, alcoholism, mood changes, post-tramatic stress disorder, suicidal thoughts Physical Exam VITALS (most recent, as listed in the electronic record): B/P: 134/78 (08/07/2024 13:02) Pulse: 70 (08/07/2024 13:02) Temperature: 97.6 F [36.4 C] (08/07/2024 13:02) Weight: 264.2 lb [119.84 kg] (08/07/2024 13:02) Height: 75 in [190.5 cm] (08/10/2022 12:05) BMI: 33.1 Pain: 7 (08/07/2024 13:02) (0-10 scale) Patient Weight History - Last Four 1. 264.2 lbs. / 119.8 kg. on AUG 07, 2024@13:02:02 2. 265.1 lbs. / 120.3 kg. on MAY 20, 2024@13:02:35 3. 270.0 lbs. / 122.5 kg. on APR 08, 2024@14:39:23 4. 263.7 lbs. / 119.6 kg. on DEC 19, 2023@14:51:49 HGA1C 6.3 H % 04/08/2024 15:32 HGA1C 6.0 % 02/15/2023 11:44 HGA1C 5.8 % 02/19/2022 11:04 HGA1C 5.9 % 08/24/2021 12:12 HGA1C 5.9 % 10/11/2020 11:43 Cardiovascular:RRR, no S3/4/murmur. Respiratory: Diminished breath sounds in bases bilaterally, audible wheezing noted ABD/GI: BS present, no tenderness to palpation MSK: Ambulates without difficulty. Trace edema Psych: Conversational, appropriate Data Review: HGA1C 6.3 H % 04/08/2024 15:32 Lipid Panel: TRIGLYCERIDE 110 mg/dL 04/08/2024 15:32 CHOLESTEROL 147 mg/dL 04/08/2024 15:32 HDL(New) 35 L mg/dL 04/08/2024 15:32 CALCULATED LDL 90 mg/dL 04/08/2024 15:32 CMP: SODIUM 140 mEq/L 05/20/2024 14:04 POTASSIUM 4.6 mEq/L 05/20/2024 14:04 CHLORIDE 106 mEq/L 05/20/2024 14:04 UREA NITROGEN 13.3 mg/dL 05/20/2024 14:04 CREATININE 1.06 mg/dL 05/20/2024 14:04 CALCIUM 10.2 mg/dL 05/20/2024 14:04 PROTEIN 7.1 g/dL 05/20/2024 14:04 ALBUMIN 4.1 g/dL 05/20/2024 14:04 ALKALINE PHOSPHATASE 96 U/L 05/20/2024 14:04 ALT/SGPT 13 U/L 05/20/2024 14:04 AST/SGOT 19 U/L 05/20/2024 14:04 TOTAL BILIRUBIN 0.6 mg/dL 05/20/2024 14:04 CARBON DIOXIDE 27 mEq/L 05/20/2024 14:04 GLUCOSE 102 H mg/dL 05/20/2024 14:04 EGFR (CKD-EPI 2020) 76.92 05/20/2024 14:04 CBC: WBC 10.1 10*3/uL 05/20/2024 14:04 RBC 4.67 10*6/uL 05/20/2024 14:04 HGB 15.2 g/dL 05/20/2024 14:04 HCT 46.8 % 05/20/2024 14:04 MCV 100.2 H fL 05/20/2024 14:04 MCH 32.5 pg 05/20/2024 14:04 MCHC 32.5 L g/dL 05/20/2024 14:04 RDW 13.8 % 05/20/2024 14:04 PLT 212 10*3/uL 05/20/2024 14:04 MPV 10.0 fL 05/20/2024 14:04 NEUTROPHILS, AUTO % 67 % 05/20/2024 14:04 LYMPHOCYTES, AUTO % 22 % 05/20/2024 14:04 MONOCYTES, AUTO % 10 % 05/20/2024 14:04 EOSINOPHILS, AUTO % 1 % 05/20/2024 14:04 BASOPHILS, AUTO % 1 % 05/20/2024 14:04 NEUTROPHILS, ABSOLUTE 6.71 10*3/uL 05/20/2024 14:04 LYMPHOCYTES, ABSOLUTE 2.16 10*3/uL 05/20/2024 14:04 MONOCYTES, ABSOLUTE 0.98 H 10*3/uL 05/20/2024 14:04 EOSINOPHILS, ABSOLUTE 0.11 10*3/uL 05/20/2024 14:04 BASOPHILS, ABSOLUTE 0.06 10*3/uL 05/20/2024 14:04 PSA: PROST. SPECIFIC AG.(PB-STL) 0.518 ng/mL 02/15/2023 11:44 TSH: TSH 1.120 uIU/mL 04/08/2024 15:32 UA: URINE COLOR Light-Yellow 05/20/2024 14:14 APPEARANCE Clear 05/20/2024 14:14 U.PH 7.0 05/20/2024 14:14 U.BILIRUBIN Negative mg/dL 05/20/2024 14:14 U.NITRITE Negative mg/dL 05/20/2024 14:14 Vitamin D: VITAMIN D, 25-HYDROXY 33.1 ng/mL 04/08/2024 15:32 Micral/Creat Profile: CREATuF: 139.8 (04/08/24 15:39) M/CREAT: 6 (04/08/24 15:39) MICRAL: 8 (04/08/24 15:39) Result: Above target Follow-up Action: repeat Data results reviewed with patient and/or caregiver. Assessment/Plan: 1) COPD with exacerbation, completed course of antibiotics, no fever. Using inhalers. Initiated on Prednisone 50mg, slow wean taper. Aware if his symptoms worsen then he should proceed to local ED. Repeat surveillance CXR completed. Pt and spouse voiced understanding. RTC: as scheduled CLINICAL REMINDERS COMPLETED /loreta/ WES SAXENA [facility] ADULT NURSE PRACTITIONER Signed: 08/07/2024 14:00 WES GARCIA [facility] Aug 07, 2024 01:30 PM PRIMARY CARE NOTE: LOCAL TITLE: PRIMARY CARE PROVIDER ESTABLISHED VISIT [facility] STANDARD TITLE: PRIMARY CARE NOTE DATE OF NOTE: AUG 07, 2024@13:30 ENTRY DATE: AUG 07, 2024@13:30:08 AUTHOR: WES GARCIA EXP COSIGNER: URGENCY: STATUS: COMPLETED PRIMARY CARE PROVIDER ESTABLISHED VISIT ST Has ADDENDA Patient is 69 y/o male Reason for visit: Scheduled follow-up Chief Complaint: Scheduled for evaluation of acute respiratory presentation History of Present Illness: s/p inpatient treatment at [facility] in [place], [place] for influenza A. Discharged after 4 days. I really didn't feel much better. Inpatient from 07/30/2024 until 08/02/2024. Reports wheezing, shortness of breath, cough is productive of clear phelgm. No fever. Is fatigued and tired. COPD, Using Albuterol 90mcg 2 puffs, 4 times a day and Umeclidinium 62.5/Vilanterol 25mcg 1 puff daily. Discharged on: Prednisone 40mg, 2 days Augmentin 875/125mg, 1 po BID - 8 days Doxycycline 100mg, 1 po BID - - 2 days Tamiflu 75mg every 12 hours - 3 days Problem List: 1) History of colonic polyp 2) Chronic [...] stage 3A 17) CVA - Cerebrovascular accident 18) PAF - Paroxysmal atrial fibrillation Immunization: ADMINISTERED Immunization Series Date Facility Reaction Info COVID-19 ([employer]), MRNA, LNP-S, * 1 02/19/2022 [facility]* <C> COVID-19 ([employer]), MRNA, LNP-S, * 3 04/05/2021 [facility]* <C> COVID-19 ([employer]), MRNA, LNP-S, * 2 08/21/2020 [facility]* COVID-19 ([employer]), MRNA, LNP-S, * 1 08/01/2020 [facility]* COVID-19 ([employer]), MRNA, LNP-S, * 4 12/13/2021 [facility] COVID-19 ([employer]), MRNA, LNP-S, * [facility] COVID-19 ([employer]), MRNA, LNP-S, * 1 03/05/2023 [facility] INFLUENZA, HIGH-DOSE, TRIVALENT,* 04/08/2024 [facility]* INFLUENZA, SPLIT VIRUS, QUADRIVA* 04/05/2021 [facility]* INFLUENZA, UNSPECIFIED FORMULATI* 03/05/2023 [facility] INFLUENZA, UNSPECIFIED FORMULATI* [facility] INFLUENZA, UNSPECIFIED FORMULATI* Md office INFLUENZA, UNSPECIFIED FORMULATI* 02/10/2019 Md office PNEUMOCOCCAL CONJUGATE PCV 13 02/25/2015 [facility] <C> PNEUMOCOCCAL POLYSACCHARIDE PPV23 03/09/2014 [facility] TDAP 03/09/2019 [facility]* <C> [facility]ER LIVE [facility] <C> ZOSTER RECOMBINANT 2 08/24/2021 [facility]* ZOSTER RECOMBINANT 1 10/11/2020 [facility]* CONTRAINDICATED No data available REFUSED ======= Immunization Date Facility Info PNEUMOCOCCAL POLYSACCHARIDE PPV23 05/20/2024 [facility]* <I> PNEUMOCOCCAL POLYSACCHARIDE PPV23 04/08/2024 [facility]* <I> <C> See the Detailed Immunizations Health Summary Component[DIM] for Comments <I> See the Detailed Immunizations Health Summary Component[DIM] for Additional Information * Value is truncated; see the Detailed Immunizations Health Summary Component[DIM] for complete text FAMILY HISTORY: SOCIAL HISTORY: NICOTINE: Nicotine User: Yes Type of Nicotine: Other tobacco products Other Tobacco in Remission - History of History of amount of usage/PPD using E-vape - has nicotine in it ILLICIT DRUGS: Present user Comment/Type of Drug: using MJ Gummies OTHER: no ETOH Medication Review: The essential med list for review which includes the patient's active VA prescriptions and if applicable, remote VA prescriptions, non-VA prescriptions, and discontinued VA prescriptions within the last 90 days and known allergies including local and remote allergies have been reviewed. Allergies:CHANTIX Active and Recently Outpatient Medications (excluding Supplies): Active Outpatient Medications Status 1) ALBUTEROL [...] SPASM Active Non-VA Medications Status 1) Non-VA ASPIRIN 81MG EC TAB 81MG BY MOUTH ONCE A DAY ACTIVE 2) Non-VA LISINOPRIL 40MG TAB 20MG BY MOUTH ONCE A DAY ACTIVE 3) Non-VA METOPROLOL SUCCINATE 50MG SA TAB 25MG BY MOUTH ONCE A ACTIVE DAY 4) Non-VA ROSUVASTATIN CA 40MG TAB 20MG BY MOUTH EVERY EVENING ACTIVE 5) Non-VA [id number]/VILANTEROL 25MCG 30D INH 1 PUFF ORAL ACTIVE INHALATION ONCE A DAY 9 Total Medications Review of Systems: General:No Complaints of fever, chills, malaise, fatigue, night sweats, weight gain, weight loss, swollen glands, temp intolerance. Integumentary (skin): No complaints of diaphorectic, bruise, rash, lesions Ear, Nose, Throat: No complaints of blurred vision, glaucoma, cataracts, headache, syncope, dizziness, vertigo, rhinitis, epistaxis, congestion, sinus pain, sore neck, hoarseness, sore throat, oral lesions, earache, difficulty hearing, hearing loss, tinnitus. Respiratory: -- SHORTNESS OF BREATH, WHEEZING Cardiovascular: No complaints of SOB, cough, wheezing, chest pain, heart murmur, hemoptysis, orthopnea/PND, palpatations, pedal edema, claudication. Gastrointestinal: No complaints of weight change, poor appetite, heartburn, nausea, vomiting, anorexia, abdominal pain, dysphagia, distention, cancer, constipation, diarrhea, change in bowel habits, reflux, ulcer, food, intolerance, melana, bloody stools, hemorrhoids. Urinary: No complaints of hematuria, nocturia, polyuria, dysuria, nocturia, pain/buring on urination, hesitancy, urinary retention, incontinence. Musculoskeletal: No complaints of weakness, pain, stiffness, back pain, joint pain, arthritis, edema, DVT, claudification, gout. Neurological: No complaints of weakness, tremors, irritable, sleep disturbance, memory loss, headache, unsteady, lethargic, dizziness, syncope, paralysis, numbness, seizures, impaired speech, depression, alcoholism, mood changes, post-tramatic stress disorder, suicidal thoughts Physical Exam VITALS (most recent, as listed in the electronic record): B/P: 134/78 (08/07/2024 13:02) Pulse: 70 (08/07/2024 13:02) Temperature: 97.6 F [36.4 C] (08/07/2024 13:02) Weight: 264.2 lb [119.84 kg] (08/07/2024 13:02) Height: 75 in [190.5 cm] (08/10/2022 12:05) BMI: 33.1 Pain: 7 (08/07/2024 13:02) (0-10 scale) Patient Weight History - Last Four 1. 264.2 lbs. / 119.8 kg. on AUG 07, 2024@13:02:02 2. 265.1 lbs. / 120.3 kg. on MAY 20, 2024@13:02:35 3. 270.0 lbs. / 122.5 kg. on APR 08, 2024@14:39:23 4. 263.7 lbs. / 119.6 kg. on DEC 19, 2023@14:51:49 HGA1C 6.3 H % 04/08/2024 15:32 HGA1C 6.0 % 02/15/2023 11:44 HGA1C 5.8 % 02/19/2022 11:04 HGA1C 5.9 % 08/24/2021 12:12 HGA1C 5.9 % 10/11/2020 11:43 Cardiovascular:RRR, no S3/4/murmur. Respiratory: Diminished breath sounds in bases bilaterally, audible wheezing noted ABD/GI: BS present, no tenderness to palpation MSK: Ambulates without difficulty. Trace edema Psych: Conversational, appropriate Data Review: HGA1C 6.3 H % 04/08/2024 15:32 Lipid Panel: TRIGLYCERIDE 110 mg/dL 04/08/2024 15:32 CHOLESTEROL 147 mg/dL 04/08/2024 15:32 HDL(New) 35 L mg/dL 04/08/2024 15:32 CALCULATED LDL 90 mg/dL 04/08/2024 15:32 CMP: SODIUM 140 mEq/L 05/20/2024 14:04 POTASSIUM 4.6 mEq/L 05/20/2024 14:04 CHLORIDE 106 mEq/L 05/20/2024 14:04 UREA NITROGEN 13.3 mg/dL 05/20/2024 14:04 CREATININE 1.06 mg/dL 05/20/2024 14:04 CALCIUM 10.2 mg/dL 05/20/2024 14:04 PROTEIN 7.1 g/dL 05/20/2024 14:04 ALBUMIN 4.1 g/dL 05/20/2024 14:04 ALKALINE PHOSPHATASE 96 U/L 05/20/2024 14:04 ALT/SGPT 13 U/L 05/20/2024 14:04 AST/SGOT 19 U/L 05/20/2024 14:04 TOTAL BILIRUBIN 0.6 mg/dL 05/20/2024 14:04 CARBON DIOXIDE 27 mEq/L 05/20/2024 14:04 GLUCOSE 102 H mg/dL 05/20/2024 14:04 EGFR (CKD-EPI 2020) 76.92 05/20/2024 14:04 CBC: WBC 10.1 10*3/uL 05/20/2024 14:04 RBC 4.67 10*6/uL 05/20/2024 14:04 HGB 15.2 g/dL 05/20/2024 14:04 HCT 46.8 % 05/20/2024 14:04 MCV 100.2 H fL 05/20/2024 14:04 MCH 32.5 pg 05/20/2024 14:04 MCHC 32.5 L g/dL 05/20/2024 14:04 RDW 13.8 % 05/20/2024 14:04 PLT 212 10*3/uL 05/20/2024 14:04 MPV 10.0 fL 05/20/2024 14:04 NEUTROPHILS, AUTO % 67 % 05/20/2024 14:04 LYMPHOCYTES, AUTO % 22 % 05/20/2024 14:04 MONOCYTES, AUTO % 10 % 05/20/2024 14:04 EOSINOPHILS, AUTO % 1 % 05/20/2024 14:04 BASOPHILS, AUTO % 1 % 05/20/2024 14:04 NEUTROPHILS, ABSOLUTE 6.71 10*3/uL 05/20/2024 14:04 LYMPHOCYTES, ABSOLUTE 2.16 10*3/uL 05/20/2024 14:04 MONOCYTES, ABSOLUTE 0.98 H 10*3/uL 05/20/2024 14:04 EOSINOPHILS, ABSOLUTE 0.11 10*3/uL 05/20/2024 14:04 BASOPHILS, ABSOLUTE 0.06 10*3/uL 05/20/2024 14:04 PSA: PROST. SPECIFIC AG.(PB-STL) 0.518 ng/mL 02/15/2023 11:44 TSH: TSH 1.120 uIU/mL 04/08/2024 15:32 UA: URINE COLOR Light-Yellow 05/20/2024 14:14 APPEARANCE Clear 05/20/2024 14:14 U.PH 7.0 05/20/2024 14:14 U.BILIRUBIN Negative mg/dL 05/20/2024 14:14 U.NITRITE Negative mg/dL 05/20/2024 14:14 Vitamin D: VITAMIN D, 25-HYDROXY 33.1 ng/mL 04/08/2024 15:32 Micral/Creat Profile: CREATuF: 139.8 (04/08/24 15:39) M/CREAT: 6 (04/08/24 15:39) MICRAL: 8 (04/08/24 15:39) Result: Above target Follow-up Action: repeat Data results reviewed with patient and/or caregiver. Assessment/Plan: 1) COPD with exacerbation, completed course of antibiotics, no fever. Using inhalers. Initiated on Prednisone 50mg, slow wean taper. Aware if his symptoms worsen then he should proceed to local ED. Repeat surveillance CXR completed. Pt and spouse voiced understanding. RTC: as scheduled CLINICAL REMINDERS COMPLETED /argelia [facility] ADULT NURSE PRACTITIONER Signed: 08/07/2024 14:00 09/02/2024 ADDENDUM STATUS: COMPLETED RHONDA Morrison ======> Please call pt, explain to him that I spoke with Dr. Palumbo in pulmonary and he needs to be seen next week in [place]. (will need 12-lead EKG, labs and consider repeat Echo) /loreta/ WES [facility] ADULT NURSE PRACTITIONER Signed: 09/02/2024 13:19 Receipt Acknowledged By: * AWAITING SIGNATURE * OFE MORRISON,WES [facility] Aug 07, 2024 01:05 PM NURSING NOTE: LOCAL TITLE: V15 PACT FACE TO FACE NOTE ST STANDARD TITLE: NURSING NOTE DATE OF NOTE: AUG 07, 2024@13:05 ENTRY DATE: AUG 07, 2024@13:05:48 AUTHOR: ROD DIAS COSIGNER: URGENCY: STATUS: COMPLETED Provider Visit: Patient Identifiers : Full Name Date of Reason for visit: Established Follow-Up Mode of Arrival: Ambulatory Allergy Review: CHANTIX Allergy list reviewed and remains current. Recent Vital Signs: Temperature: 97.6 F [36.4 C] (08/07/2024 13:02) Pulse: 70 (08/07/2024 13:02) Respiration: 20 (08/07/2024 13:02) B/P: 134/78 (08/07/2024 13:02) Pain: 7 (08/07/2024 13:02) Wt: 264.2 lb [119.84 kg] (08/07/2024 13:02) Ht: 75 in [190.5 cm] (08/10/2022 12:05) BMI: 33.1 POX: 93% (08/07/2024 13:02) Would you like to discuss any personal problem, family problem, alcohol use, drug use, or a mental or emotional illness? No Contact provided Primary Care phone number and encouraged to call if any questions or concerns. Review that after hours nurse line [phone] and emergency room are available 24/12 for patient use. Contact verbalized good understanding. /loreta/ ROD DIAS LPN LICENSED PRACTICAL NURSE Signed: 08/07/2024 13:06 ROD DIAS [facility]
--- OUTSIDE RECORDS SUMMARY | 2024-09-22 15:06 | XMS_ITS | Encounter Summary ---
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 Name Role Phone JESSICA KAY Primary Care Provider UnavailYANIV Gallegos Unavailable Unavailable JENY TAVAREZ Unavailable Unavailable ELSY, ISAAC Unavailable Unavailable RYAN TORRES Unavailable Unavailable PAOLA SMITH Unavailable Unavailable ALEM LAURENT Unavailable Unavailable ELVIA ATNONIO Unavailable Unavailable WES GARCIA Primary Care Provider [...] ACTIV E [place] HIGH Jun 03, 2013 [id number] [phone] JOSEPHINE DiamondROSITA SPOUSE MEDICARE (WNR) MEDICARE (M) PART B Jul 04, 2016 PART B [id number] JOSEPHINE DiamondELI PATIENT MEDICARE (WNR) MEDICARE (M) PART A Jul 04, 2016 PART A [id number] JOSEPHINE Diamond,ELI PATIENT MEDICARE (WNR) MEDICARE (M) PART A Jul 04, 2016 PART A [id number] RICHARDSO N,ELI PATIENT MEDICARE (WNR) MEDICARE (M) PART A Jul 04, 2016 PART A [id number] RICHARDSO N,ELI PATIENT MEDICARE (WNR) MEDICARE (M) PART B Jul 04, 2016 PART B [id number] RICHARDSO N,ELI PATIENT MEDICARE (WNR) MEDICARE (M) PART B Jul 04, 2016 PART B [id number] [phone] RICHARDSO N,ELI PATIENT MEDICARE (WNR) MEDICARE (M) PART A Jul 04, 2016 PART A [id number] [phone] RICHARDSO N,ELI PATIENT MEDICARE (WNR) MEDICARE (M) PART B Jul 04, 2016 PART B [id number] RICHARDSO N,ELI PATIENT PRIME THERAPEUTI CS RX PRESCRIPT ION RX PLAN Jun 03, 2013 [id number] [phone] RICHARDSO N,ELI PATIENT Selected Encounter This section includes the information on record at [place] for the Encounter. Date/Time Encounter Type Encounter Description Reason Provider Source May 20, 2024 01:00 PM OFFICE O/P EST MOD 30 MIN PRIMARY CARE/MEDICINE ICD-10-CM I48.0 Paroxysmal atrial fibrillation MCQUAIDE,THER ELY IHE Encounter Template Text not used by [place] Assessments - Encounter Diagnoses This section includes the primary and secondary diagnoses documented for the Encounter. 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 MCQUAMANDA,THERE [facility] May 20, 2024 02:03 PM SECONDARY Cerebellar stroke syndrome MCQUAMANDA,THERE [facility] May 20, 2024 02:03 PM SECONDARY Chronic kidney disease, stage 3a MCCHRISTEN,THERE [facility] May 20, 2024 02:03 PM SECONDARY Chronic obstructive pulmonary disease, unspecified MCCHRISTEN,THERE [facility] May 20, 2024 02:03 PM SECONDARY Dyspnea, unspecified MCQUAIDE,THERE [facility] May 20, 2024 02:03 PM SECONDARY Hyp hrt & chr kdny 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 This section includes future appointments and future orders which are active, pending or scheduled. Future Appointments This section includes appointments that were scheduled to occur 6 months from the date of the Encounter, up to a maximum of 20 appointments. The data comes from all [facility]. Appointment Date/Time Appointment Type Appointme nt Facility Name Aug 06, 2024 10:15 AM AMBULATORY - MEDICINE [facility] Aug 07, 2024 01:00 PM AMBULATORY - MEDICINE [facility] Aug 28, 2024 12:00 PM AMBULATORY - NONE [facility] Aug 28, 2024 02:30 PM AMBULATORY - MEDICINE [facility] Sep 16, 2024 01:00 PM AMBULATORY - MEDICINE [facility] Sep 17, 2024 02:00 PM AMBULATORY - MEDICINE [facility] Lab Results: +/- 30 days of the encounter This section includes the Chemistry and Hematology Lab Results on record with [place] for the patient. Radiology Reports and Pathology Reports are provided separately, in subsequent sections. Lab Results This section contains the Chemistry/Hematology Results that were resulted 30 days before or 30 daysafter the date of the Encounter. Date/Time Source Result Type Result - Unit Interpretation Reference Range Specimen Type Comment May 20, 2024 02:14 PM [facility] URINALYSIS (STL-PB) URINE Specimen Type: URINE No comment entered. Ordering Provider: WES GARCIA Report Released Date/Time: May 20, 2024 08:32 AM Reporting Lab: [facility] [address] [place] [address] Performing Lab: [facility] [address] [place] [address] URINE COLOR Light-Yellow Yellow U.BILIRUBIN Negative mg/dL Negative U.PH 7.0 5.0-8.0 APPEARANCE Clear Clear U.NITRITE Negative mg/dL Negative URN.GLUCOSE Normal mg/dL Negative URN.PROTEIN Negative mg/dL URN.UROBILINOGEN 2 mg/dL H Normal URN.BLOOD Negative mg/dL Negative-Trace URN.KETONES Negative mg/dL Negative-Trac e URN.LEUK.EST. Negative mg/dL Negative-Tr jason URN.SPECIFIC GRAVITY 1.016 May 20, 2024 02:04 PM [facility] COMPREHENSIVE METABOLIC PANEL PLASMA Specimen Type: PLASMA Comment: No hemolysis noted. Ordering Provider: WES GARCIA Report Released Date/Time: May 20, 2024 08:32 AM Reporting Lab: [facility] [address] [place] [address] Performing Lab: [facility] [address] [place] [address] CREATININE 1.06 mg/dL 0.70-1.30 UREA NITROGEN 13.3 [...] >60 May 20, 2024 02:04 PM [facility] CBC BLOOD Specimen Type: BLOOD No comment entered. Ordering Provider: WES GARCIA Report Released Date/Time: May 20, 2024 08:32 AM Reporting Lab: [facility] [address] [facility] [id number] Performing Lab: [facility] [address] [facility] [id number] WBC 10.1 10*3/uL 3.6-11.2 RBC 4.67 10*6/uL [...] 0.60 BASOPHILS, ABSOLUTE 0.06 10*3/uL 0.00-0. 20 Vital Signs: All taken on the encounter date This section contains inpatient and outpatient Vital Signs collected on the date of the Encounter. Date/Time Temperature Pulse Blood Pressure Respiratory Rate SP02 Pain Height Weight Body Mass Index Source May 20, 2024 01:02 PM 136/86 [facility] May 20, 2024 01:02 PM 98.1 64 148/89 20 98 7 265.1 33 [facility] Social History: Smoking Status (Most current) and Tobacco Use (All prior to encounter date) This section includes the most current, and the historical, smoking and tobacco- related health factors from the [place] facility where the Encounter took place. Current Smoking Status This section includes the most current smoking, or tobacco-related health factor, from the [place] facility where the Encounter took place. Date/Time Current Smoking Status Comment Facil ity Apr 08, 2024 02:30 PM VA-TOBACCO USE CARYN RY DAY CIGARETTES [facility] Tobacco Use History This section includes a history of the smoking, or tobacco-related health factors, that were collected on or before the date of the Encounter. The data comes from the [place] facility where the Encounter took place. 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 [facility] Apr 08, 2024 02:30 PM VA-TOBACCO USE CARYN RY DAY CIGARETTES [facility] Apr 08, 2024 02:30 PM VA-TOBACCO USE MED NO [facility] Feb 15, 2023 11:00 AM VA-TOBACCO USE 30 YEARS OR MORE [facility] Feb 15, 2023 11:00 AM VA-TOBACCO USE ADVICE [facility] Feb 15, 2023 11:00 AM VA-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 USE 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 [facility] Feb 15, 2023 11:00 AM VA-TOBACCO USE MED NO [facility] Feb 15, 2023 11:00 AM VA-TOBACCO USE WI 30 MIN OF WAKEUP [facility] Feb 15, 2023 11:00 AM VA-TOBACCO USER EVERY DAY [facility] Feb 19, 2022 11:30 AM VA-TOBACCO DOESNT USE WI 30 MIN WAKEUP [facility] Feb 19, 2022 11:30 AM VA-TOBACCO USE 30 YEARS OR MORE [facility] Feb 19, 2022 11:30 AM VA-TOBACCO USE ADVICE [facility] Feb 19, 2022 11:30 AM VA-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 Date/Time Encounter Note(s) Provider Source Jun 02, 2024 01:41 PM PHYSICIAN LETTERS: LOCAL TITLE: TEST RESULT GENERAL LETTER ST[facility] STANDARD TITLE: PHYSICIAN LETTERS DATE OF NOTE: JUN 02, 2024@13:41 ENTRY DATE: JUN 02, 2024@13:41:11 AUTHOR: WES GARCIA COSIGNER: URGENCY: STATUS: COMPLETED [facility] [address] [place] [address] JUN 02, 2024 ELI RUELAS [address] [facility] [place], [place] [address] Dear Eli Ruelas, I would like to [...] you have any questions please call your employment evaluator/case manager. I look forward to seeing you at your next clinic appointment. Thank you for choosing the [facility] for your healthcare. FUTURE APPOINTMENTS: 07/31/2024 14:00 [facility]-PACT E3 PCP 08/28/2024 14:00 JOSELYN-PFT-JOSELYN 08/28/2024 14:30 JOSELYN-PULMONARY INTERVENTION 2025 13:00 JOSELYN-CARDIOLOGY F4 Sincerely, WES [facility] ADULT NURSE PRACTITIONER ELI RUELAS THERESA [facility] May 20, 2024 01:32 PM PRIMARY CARE NOTE: LOCAL TITLE: PRIMARY CARE PROVIDER ESTABLISHED VISIT ST STANDARD TITLE: PRIMARY CARE NOTE DATE OF NOTE: MAY 20, 2024@13:32 ENTRY DATE: MAY 20, 2024@13:32:45 AUTHOR: WES GARCIA EXP COSIGNER: URGENCY: STATUS: COMPLETED ESTABLISHED PATIENT DPLJ-WH-FZVS: REASON FOR VISIT/CHIEF COMPLAINT: Scheduled for 5-week evaluation, regarding PAF HPI: PAF noted on loop-recorder per [place], informing PCP to initate pt on DOAC. [...] NSCLC s/p RLL lung resection 08/2020 at [facility] in [place], [place]. Followed per [facility] by Dr. Rivera. COPD, Using Albuterol [...] medication list with the patient and/or his/her care-electronic assembler group leader. Handwritten corrections, additions and/or deletions were made [...] BY MOUTH EVERY EVENING ACTIVE 4) Non-VA CRGKEUDZIBAG77.5/VILANTEROL 25MCG 30D INH 1 PUFF ORAL ACTIVE INHALATION ONCE A DAY 7 Total Medications REVIEW OF SYSTEMS: General: Normal Weight Loss weight loss, 5# Cardiovascular: Normal HTN BP elevated, 136/86 Respiratory: Normal SOB dyspnea ABD/GI: Normal Musculoskeletal/Extremities : Normal /NIB ASSEMBLER: Normal Endocrine: Normal Psych: Normal sleeping 8 [...] DOAC. 12-lead EKG completed along with labs. STEVE Amandaers aware about new start and discussed with pt. 2) Dyspnea, discussed obtaining Echocardiogram; however, completed in January 2024. Monitor for now. Likely, from reduced atrial kick, PAF. 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 Followed per [facility] by Dr. Rivera. 4) COPD, Using [...] to keep all scheduled appointments and contact rn new grad for any additional problems. PREVENTION & SCREENING: ALCOHOL: Clinical Reminder not due now or within a month BLOOD PRESSURE: Clinical Reminder not due now or within a month HEMOGLOBIN A1C: Clinical Reminder not due now or within a month /loreta/ WES [facility] ADULT NURSE PRACTITIONER Signed: 05/20/2024 14:03 WES GARCIA [facility] May 20, 2024 01:05 PM NURSING [...] concerns. Review that after hours nurse line ext.[phone] and emergency room are available 24/12 for patient use. Contact verbalized good understanding. Pneumococcal PPSV23 (Pneumovax) - L,N,P,PH,U: The patient declines to receive the recommended dose of PPSV23 vaccine. Immunization: PNEUMOCOCCAL POLYSACCHARIDE PPV23 Refusal Reason: PATIENT DECISION Patient refuses all immunization(s) in the PneumoPPV group Date Documented: 05/20/24 13:06 /loreta/ ROD DIAS LPN LICENSED PRACTICAL NURSE Signed: 05/20/2024 13:07 ROD DIAS [facility]
--- OUTSIDE RECORDS SUMMARY | 2024-09-22 15:06 | XMS_ITS | Encounter Summary ---
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 ([place]) Organization Department of [facility] Affairs ([place]) Address [address] [place] [address] Care Team Providers Care Electrician Constructor Supervisor Name Role Phone JESSICA KAY Primary [...] ACTIV E [place] HIGH Jun 03, 2013 [id number] [phone] JOSEPHINE DiamondROSITA SPOUSE MEDICARE (WNR) MEDICARE (M) PART B Jul 04, 2016 PART B [id number] JOSEPHINE DiamondELI PATIENT MEDICARE (WNR) MEDICARE (M) PART A Jul 04, 2016 PART A [id number] JOSEPHINE Diamond,ELI PATIENT MEDICARE (WNR) MEDICARE (M) PART A Jul 04, 2016 PART A [id number] RICHARDSO N,ELI PATIENT MEDICARE (WNR) MEDICARE (M) PART A Jul 04, 2016 PART A [id number] [phone] RICHARDSO N,ELI PATIENT MEDICARE (WNR) MEDICARE (M) PART B Jul 04, 2016 PART B [id number] RICHARDSO N,ELI PATIENT MEDICARE (WNR) MEDICARE (M) PART B Jul 04, 2016 PART B [id number] RICHARDSO N,ELI PATIENT MEDICARE (WNR) MEDICARE (M) PART A Jul 04, 2016 PART A [id number] RICHARDSO N,ELI PATIENT MEDICARE (WNR) MEDICARE (M) PART B Jul 04, 2016 PART B [id number] [phone] RICHARDSO N,ELI PATIENT PRIME THERAPEUTI CS RX PRESCRIPT ION RX PLAN Jun 03, 2013 [id number] [phone] EMMASO N,ELI PATIENT Selected Encounter This section includes the information on record at [place] for the Encounter. Date/Time Encounter Type Encounter Description Reason Provider Source Sep 17, 2024 02:00 PM OFFICE O/P EST MOD 30 MIN CARDIOLOGY ICD-10-CM I48.0 Paroxysmal atrial fibrillation RITA SHEPHERD Redd Encounter Template Text not used by [place] Assessments - Encounter Diagnoses This section includes the primary and secondary diagnoses documented for the Encounter. Date/Time Primary/Secondary Diagnosis Diagnosis Name Provider Source Sep 17, 2024 02:39 PM PRIMARY Paroxysmal atrial fibrillation SIMONE STARR [facility] Sep 17, 2024 02:39 PM SECONDARY Cerebellar stroke syndrome SIMONE STARR [facility] Sep 17, 2024 02:39 PM SECONDARY Tobacco use SIMONE STARR [facility] Plan of [...] The data comes from all [place] treatment [facility]. Appointment Date/Time Appointment Type Appointme nt Facility Name Jan 28, 2025 02:00 PM AMBULATORY - MEDICINE [facility] 2025 01:00 PM AMBULATORY - MEDICINE [facility] Active, Pending, and Scheduled Orders This section includes a listing of several types of active, pending, and scheduled orders, including clinic medications orders, diagnostic test orders, procedure orders and consult orders; where the start date of the order is 45 days before the date of the Encounter or 45 days after the date of theEncounter. The data comes from all [facility]. Test Date/Time Test Type Test Details Facility Name Sep 14, 2024 11:02 AM Consult Order CANCER TESSA VIVORSHIP CONSULT OUTPT STL Cons Integrated Pest Management Technician's Choice [facility] Lab Results: +/- 30 days of [...] Type Comment Sep 01, 2024 12:48 PM [facility] BASIC METABOLIC PANEL PLASMA Specimen Type: PLASMA Comment: No hemolysis noted. Ordering Provider: PASTOR ROBERTSON Report Released Date/Time: Sep 01, 2024 12:22 PM Reporting Lab: [facility] [address] [facility] [address] Performing Lab: [facility] [address] [facility] [address] CREATININE 1.28 mg/dL 0.7-1.3 UREA NITROGEN 21.6 mg/dL 9.0-25.0 GLUCOSE 148 mg/dL H 72-99 SODIUM 141 meq/L 136-145 POTASSIUM 5.1 meq/L H 3.5-5 CHLORIDE 105 meq/L 98-107 CARBON DIOXIDE 30 meq/L 22-31 CALCIUM 9.5 mg/dL 8.4-10.4 EGFR (CKD-EPI 2020) 61.3 >60 Aug 28, 2024 02:18 PM [facility] BRAIN NATRIURETIC PEPTIDE PLASMA Specimen Type : PLASMA No comment entered. Ordering Provider: PASTOR ROBERTSON Report Released Date/Time: Aug 28, 2024 01:59 PM Reporting Lab: [address] [address] Performing Lab: [address] [address] BRAIN NATRIURETIC PEPTIDE 356.1 pg/mL H 0- 100 Aug 28, 2024 02:18 PM [facility] BASIC METABOLIC PANEL PLASMA Specimen Type: PL ASMA Comment: No hemolysis noted. Ordering Provider: PASTOR ROBERTSON Report Released Date/Time: Aug 28, 2024 01:59 PM Reporting Lab: [address] [address] Performing Lab: [address] [address] CREATININE 1.09 mg/dL 0.7-1.3 UREA NITROGEN 16.4 mg/dL 9.0-25.0 GLUCOSE 110 mg/dL H 72-99 SODIUM 139 meq/L 136-145 POTASSIUM 4.7 meq/L 3.5-5 CHLORIDE 105 meq/L 98-107 CARBON DIOXIDE 27 meq/L 22-31 CALCIUM 9.1 mg/dL 8.4-10.4 EGFR (CKD-EPI 2020) 74.4 >60 Aug 28, 2024 02:18 PM [facility] CBC BLOOD Specimen Type: BLOOD No comment entered. Ordering Provider: PASTOR ROBERTSON Report Released Date/Time: Aug 28, 2024 01:59 PM Reporting Lab: [address] [address] Performing Lab: [address] [address] WBC 11.9 10*3/uL H 3.6-11.2 RBC 4.47 [...] 0.60 BASOPHILS, ABSOLUTE 0.04 10*3/uL 0.00-0. 20 Vital Signs: All taken on the encounter date This section contains inpatient and outpatient Vital Signs collected on the date of the Encounter. Date/Time Temperature Pulse Blood Pressure Respiratory Rate SP02 Pain Height Weight Body Mass Index Source Sep 17, 2024 01:59 PM 97.5 81 118/75 20 95 0 263.9 33 [facility] Radiology Reports: +/- 30 days [...] CT THORAX, DIAGNOS TIC, W/CONTRAST: ELI RUELAS [id number] -1955 M Ex Date: AUG 28, 2024@11:50 Req Phys: ALEM LUTHER Loc: [facility]-PULMONARY INTERVENTIONAL (R Img Loc: [facility]-CT IMAGING [facility] Service: Unknown [facility] [address] [place] [address] (Case [id number] COMPLETE) CT THORAX, DIAGNOSTIC, W/CONTRAS(CT Detailed) CPT:40294 Contrast Media : Non-ionic Iodinated Reason for Study: Surveillance post resection of jennifer ca 2020 Clinical History: Responsible Attending: Shante Attending Contact Number: [phone] Resident Contact Number: Allergies listed in CPRS chart: CHANTIX Creatinine: CREATININE 1.16 mg/dL 02/15/2023 11:44 /eGFR: STL EGFR (within one year). CREATININE 1.16 mg/dL (02/15/23 11:44) Wt: 264 lb [119.75 kg] (08/30/2023 14:51) History of: Renal failure, chronic or acute renal disease: NO Report Status: Verified Date Reported: AUG 30, 2024 Date Verified: AUG 30, 2024 Flakeboard Line Tender E-Sig:/ES/Oswald Coronado MD Report: INDICATION: Surveillance post [...] abdominal process. Dictated by Dakota Hampton MD (president consumer electronics company). I, Oswald Coronado, have reviewed the images and report and concur with these findings. Primary Interpreting Staff: Oswald Coronado MD, Radiologist (Flakeboard Line Tender) Primary Interpreting Resident: Resident ANN MARIE Physician /[facility] Encounter Notes: All associated encounter notes This section contains the clinical notes associated to the Encounter. Date/Time Encounter Note(s) Provider Source Sep 17, 2024 01:27 PM CARDIOLOGY OUTPATI ENT NOTE: LOCAL TITLE: CARDIOLOGY OUTPATIENT FOLLOW UP STL STANDARD TITLE: CARDIOLOGY OUTPATIENT NOTE DATE OF NOTE: SEP 17, 2024@13:27 ENTRY DATE: SEP 17, 2024@13:27:36 AUTHOR: NORIS STARR COSIGNER: HOWARD SHEPHERD URGENCY: STATUS: COMPLETED CARDIOLOGY OUTPATIENT FOLLOW UP [...] a heart attack [facility] and he was told everything was fine, he does not remember if a stress test was done, but remembers for sure that an ECHO was done and he was told his EF was normal. 09/17/2024: Patient does not have any complaints. PMHX: ------ 1) History of colonic polyp [...] accident 18) PAF - Paroxysmal atrial fibrillation OUTPATIENT MEDICATIONS: ------ Active Outpatient Medications (including Supplies): Active Outpatient Medications Status 1) ALBUTEROL 90MCG (CFC-F) 200D ORAL INHL INHALE 2 PUFFS ORAL ACTIVE INHALATION FOUR TIMES A DAY SHAKE WELL. RINSE MOUTHPIECE FREQUENTLY TO PREVENT CLOGGING. Indication: FOR COPD 2) APIXABAN 5MG TAB TAKE ONE TABLET BY MOUTH TWICE A DAY ACTIVE Indication: FOR ANTICOAGULATION 3) BUMETANIDE 1MG TAB TAKE ONE-HALF TABLET BY MOUTH EVERY ACTIVE MORNING Indication: FOR FLUID RETENTION (EDEMA) 4) METHOCARBAMOL 500MG TAB TAKE 1 TABLET BY MOUTH THREE TIMES A ACTIVE DAY NEEDED Indication: FOR MUSCLE SPASM 5) POTASSIUM CL 20MEQ SA TAB (DISPERSIBLE) TAKE TWO TABLETS BY ACTIVE MOUTH ONCE A DAY TAKE WITH FOOD Indication: FOR POTASSIUM SUPPLEMENTATION 6) PREDNISONE 10MG TAB TAKE TWO TABLETS BY MOUTH EVERY MORNING ACTIVE FOR 2 DAYS, THEN TAKE ONE TABLET EVERY MORNING FOR 6 DAYS, THEN TAKE ONE-HALF TABLET EVERY MORNING FOR 6 DAYS TAKE WITH FOOD OR MILK. Indication: FOR COPD EXACERBATION 7) TABLET CUTTER USE TABLET CUTTER NEEDED ACTIVE Indication: FOR TABLET CUTTING Active Non-VA Medications Status 1) Non-VA ASPIRIN 81MG EC TAB 81MG BY MOUTH ONCE A DAY ACTIVE 2) Non-VA LISINOPRIL 40MG TAB 20MG BY MOUTH ONCE A DAY ACTIVE 3) Non-VA METOPROLOL SUCCINATE 50MG SA TAB 25MG BY MOUTH ONCE A ACTIVE DAY 4) Non-VA ROSUVASTATIN CA 40MG TAB 20MG BY MOUTH EVERY EVENING ACTIVE 5) Non-VA [id number]/VILANTEROL 25MCG 30D INH 1 PUFF ORAL ACTIVE INHALATION ONCE A DAY 12 Total Medications ALLERGIES: ------ CHANTIX SOCIAL HISTORY: ------ - Tobacco:former smoker - Alcohol:denies - Illicit Substances:denies FAMILY HISTORY: ------ - No family history of coronary artery disease, heart failure, arrhythmia REVIEW OF SYSTEMS: 12 point ROS negative except mentioned in HPI PHYSICAL EXAMINATION: VITALS: Temperature: 98 F [36.7 C] (09/16/2024 13:03) Blood Pressure: 128/78 (09/16/2024 13:03) Pulse: 74 (09/16/2024 13:03) Respirations: 18 (09/16/2024 13:03) GENERAL: NAD, comfortable. HEENT: Moist oral mucosa, anicteric sclera. NECK: Supple, no JVD, normal carotid upstrokes without bruits. RESPIRATORY: CTAB, no wheezing/rhonchi/crackles. CARDIOVASCULAR: irregular rhythm, normal S1 and S2, no M/R/G. No JVD. 2+ radial and DP pulses. ABDOMEN: +BS, soft, non-tender, non-distended, and no hepatosplenomegaly. EXTREMITIES: No peripheral edema SKIN: No significant lesions. NEURO: Alert and oriented, CN II to XII grossly intact. Moving all extremities spontaneously LABS: COMPLETE BLOOD COUNT WBC 11.9 H 10*3/uL 08/28/2024 14:18 RBC 4.47 10*6/uL 08/28/2024 14:18 HGB 14.6 g/dL 08/28/2024 14:18 HCT 46.5 % 08/28/2024 14:18 MCV 104.0 H fL 08/28/2024 14:18 MCH 32.7 pg 08/28/2024 14:18 MCHC 31.4 L g/dL 08/28/2024 14:18 RDW 15.6 H % 08/28/2024 14:18 PLT 171 10*3/uL 08/28/2024 14:18 MPV 10.2 fL 08/28/2024 14:18 NEUTROPHILS, AUTO % 82 % 08/28/2024 14:18 LYMPHOCYTES, AUTO % 11 % 08/28/2024 14:18 MONOCYTES, AUTO % 6 % 08/28/2024 14:18 EOSINOPHILS, AUTO % 0 % 08/28/2024 14:18 BASOPHILS, AUTO % 0 % 08/28/2024 14:18 NEUTROPHILS, ABSOLUTE 9.72 H 10*3/uL 08/28/2024 14:18 LYMPHOCYTES, ABSOLUTE 1.31 10*3/uL 08/28/2024 14:18 MONOCYTES, ABSOLUTE 0.73 10*3/uL 08/28/2024 14:18 EOSINOPHILS, ABSOLUTE 0.04 10*3/uL 08/28/2024 14:18 BASOPHILS, ABSOLUTE 0.04 10*3/uL 08/28/2024 14:18 COMPREHENSIVE METABOLIC PANEL SODIUM 141 mEq/L 09/01/2024 12:48 POTASSIUM 5.1 H mEq/L 09/01/2024 12:48 CHLORIDE 105 mEq/L 09/01/2024 12:48 UREA NITROGEN 21.6 mg/dL 09/01/2024 12:48 CREATININE 1.28 mg/dL 09/01/2024 12:48 CALCIUM 9.5 mg/dL 09/01/2024 12:48 PROTEIN 7.1 g/dL 05/20/2024 14:04 ALBUMIN 4.1 g/dL 05/20/2024 14:04 ALKALINE PHOSPHATASE 96 U/L 05/20/2024 14:04 ALT/SGPT 42 H U/L 08/07/2024 14:08 AST/SGOT 24 U/L 08/07/2024 14:08 TOTAL BILIRUBIN 0.6 mg/dL 05/20/2024 14:04 CARBON DIOXIDE 30 mEq/L 09/01/2024 12:48 GLUCOSE 148 H mg/dL 09/01/2024 12:48 EGFR (CKD-EPI 2020) 61.3 09/01/2024 12:48 LIPIDS TRIGLYCERIDE 110 mg/dL 04/08/2024 15:32 CHOLESTEROL 147 mg/dL 04/08/2024 15:32 HDL(New) 35 L mg/dL 04/08/2024 15:32 CALCULATED LDL 90 mg/dL 04/08/2024 15:32 COAGULATION STUDIES No INR EO data found No PTT EO data found HGA1C: HGA1C 6.3 H % 04/08/2024 15:32 IMAGING: No data available IMAGING IMPRESSION SELECTED No data available for: US CAROTID BILATERAL US CAROTID VASCULAR,UNILAT OR LTD PROGRESS NOTES SELECTED 11/05/2023 10:32 Local Title: VASCULAR LAB CONSULT ST[facility] Standard Title: VASCULAR SURGERY CONSULT VASCULAR LABORATORY: [...] vertebral arteries are antegrade. This is an [facility] accredited vascular laboratory Exam performed by Hamida Hernandez RVT Signed by: /loreta/ HUA SHELL MD Staff Physician - General Surgery 11/05/2023 12:09 No data available for: NM MYOCARDIAL PERF (PLANAR), SINGLE STUDY NM MYOCARDIAL PERF SPECT STRESS/REST NM MYOCARDIAL PERFUSION VIABILITY NM MYOCARDIAL PERF SPECT SINGLE STUDY NM MYOCARDIAL PERF (PLANAR), MULTIPLE STUDIES ASESSMENT and PLAN //Paroxysmal atrial fibrillation and flutter -he is having symptomatic episodes -EP consult put in -Patient is open to the idea of ablation -continueing eliquis amd metoprolol //Ischemic CVA -ischemnic CVA in 2013 (brain MRI at [facility] showed no acute stroke, however showed [...] stress test negative in November 2022 at [facility], no further work up needed //Former smoker, recently quit -at least 50 pack years of smoking history -actively trying to quit -AAA screen negative from 2022 All patients are counseled on the risks [...] completed, the results will be found in [facility]. # HEALTH PROMOTION/HEALTH MAINTENANCE & EDUCATION [...] directed by the PCP (primary provider). /loreta/ NORIS STARR MD BURNING MACHINE OPERATOR Signed: 09/17/2024 14:40 /loreta/ HOWARD SHEPHERD MD PHD STAFF PHYSICIAN AND CHIEF OF HEART FAILURE Cosigned: 09/17/2024 20:15 09/17/2024 ADDENDUM STATUS: COMPLETED I have seen and examined the patient in this date of service. I have independently reviewed the new diagnostic and laboratory data, as well as the plan with the author of this note. I agree with the assessment and plan as outlined below, with the following modifications: HISTORY: 63 y/o with symptomatic Afib. Tolerating A/C. EP consult for consideration of AAD vs ablation. /es/ HOWARD SHEPHERD MD PHD STAFF PHYSICIAN AND CHIEF OF HEART FAILURE Signed: 09/17/2024 20:15 NORIS STARR [facility]
--- OUTSIDE RECORDS SUMMARY | 2024-09-22 15:06 | XMS_ITS | Encounter Summary ---
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 ([place]) Organization [facility] Address [address] [place] [address] Care Team Providers Care Tour Consultant Name Role Phone JESSICA KAY Primary [...] ACTIV E IL HIGH Jun 03, 2013 [id number] [phone] JOSEPHINE DiamondROSITA SPOUSE MEDICARE (WNR) MEDICARE (M) PART B Jul 04, 2016 PART B [id number] JOSEPHINE DiamondELI PATIENT MEDICARE (WNR) MEDICARE (M) PART A Jul 04, 2016 PART A [id number] [phone] JOSEPHINE Diamond,ELI PATIENT MEDICARE (WNR) MEDICARE (M) PART A Jul 04, 2016 PART A [id number] RICHARDSO N,ELI PATIENT MEDICARE (WNR) MEDICARE (M) PART B Jul 04, 2016 PART B [id number] [phone] RICHARDSO N,ELI PATIENT MEDICARE (WNR) MEDICARE (M) PART A Jul 04, 2016 PART A [id number] RICHARDSO N,ELI PATIENT MEDICARE (WNR) MEDICARE (M) PART B Jul 04, 2016 PART B [id number] RICHARDSO N,ELI PATIENT MEDICARE (WNR) MEDICARE (M) PART A Jul 04, 2016 PART A [id number] [phone] RICHARDSO N,ELI PATIENT MEDICARE (WNR) MEDICARE (M) PART B Jul 04, 2016 PART B [id number] RICHARDSO N,ELI PATIENT PRIME THERAPEUTI CS RX PRESCRIPT ION RX PLAN Jun 03, 2013 [id number] [phone] RICHARDSO N,ELI PATIENT Selected Encounter This section includes the information on record at [place] for the Encounter. Date/Time Encounter Type Encounter Description Reason Provider Source Jan 22, 2024 12:46 PM OFFICE O/P EST LOW 20 MIN NON-OR ANESTHESIA PROCEDURES ICD-10-CM Z01.818 Encounter for other preprocedural examination TAMIKO TOVAR [facility] Encounter Template Text not used by [place] Assessments - Encounter Diagnoses This section includes the primary and secondary diagnoses documented for the Encounter. Date/Time Primary/Secondary Diagnosis Diagnosis Name Provider Source Jan 22, 2024 12:53 PM PRIMARY Encounter for other preprocedural examination TAMIKO TOVAR [facility] Jan 22, 2024 12:53 PM SECONDARY Encounter for other specified surgical aftercare TAMIKO TOVAR [facility] Plan of Treatment: Future Appointments (+ 6 months) and Future Tests (+/- 45 days) The Plan of Treatment section includes future care activities for the patient from all [place] treatmentfacilities. This section includes future appointments and future orders which are active, pending or scheduled. Future Appointments This section includes appointments that were scheduled to occur 6 months from the date of the Encounter, up to a maximum of 20 appointments. The data comes from all [facility]. Appointment Date/Time Appointment Type Appointme nt Facility Name Mar 19, 2024 04:30 PM AMBULATORY - MEDICINE [facility] Apr 08, 2024 02:30 PM [facility] Apr 16, 2024 07:30 AM AMBULATORY - MEDICINE [facility] May 20, 2024 01:00 PM AMBULATORY - MEDICINE [facility] Pathology Reports: +/- 30 days [...] the Encounter. The data comes from all [facility]. Date/Time Pathology Report Provider Source Jan 23, [...] Performing Laboratory: Surgical Pathology Report Performed By: [facility]# [id number] [address] [address] $FTR - - - - - - - - - - - - - - - - - - - - - - - - - - - - - - - - - - - - - - - - (End of report) ARNOLD MTZ MD [facility] Date Jan 23, 2024 - - - - - - - - - - - - - - - - - - - - - - - - - - - - - - - - - - - - - - - - ELI RUELAS STANDARD FORM 515 ID:[id number] SEX:M :1955 AGE: 68 LOC:[id number] PCP: Claudia Campa NP /loreta/ ARNOLD MTZ Pathologist Signed: 01/23/2024 16:11 ARNOLD MTZ [facility] Encounter Notes: All associated encounter notes This section contains the clinical notes associated to the Encounter. Date/Time Encounter Note(s) Provider Source Jan 22, 2024 02:41 PM ANESTHESIOLOGY POS T OPERATIVE E & M NOTE: LOCAL TITLE: ANESTHESIA POST-OP [facility] STANDARD TITLE: ANESTHESIOLOGY POST OPERATIVE E & M NOTE DATE OF NOTE: JAN 22, 2024@14:41 ENTRY DATE: JAN 22, 2024@14:41:07 AUTHOR: TAMIKO TOVAR EXP COSIGNER: URGENCY: STATUS: COMPLETED Post-Anesthetic Note No complications noted from anesthetic at the time of this note. Anesthesia intra-op flowsheet uploaded to [employer]. /loreta/ TAMIKO TOVAR ANESTHESIOLOGIST Signed: 01/22/2024 14:41 TAMIKO TOVAR [facility] Jan 22, 2024 12:46 PM ANESTHESIOLOGY PRE OPERATIVE E & M NOTE: LOCAL TITLE: ANESTHESIA PRE-OP [facility] STANDARD TITLE: ANESTHESIOLOGY PRE OPERATIVE E & M NOTE DATE OF NOTE: JAN 22, 2024@12:46 ENTRY DATE: JAN 22, 2024@12:46:03 AUTHOR: TAMIKO TOVAR COSIGNER: URGENCY: STATUS: COMPLETED ELI RUELAS is [...] BY MOUTH EVERY ACTIVE EVENING 4) Non-VA [id number]/VILANTEROL2 5MCG 30D INH 1 ACTIVE PUFF ORAL [...] STL EKG CONSULTS PB EKG RESULTS MA PFT: 08/11/22 CONCLUSIONS: There is a combined [...] management. PRE-INDUCTION REASSESSMENT NPO status appropriate: Yes /loreta/ TAMIKO TOVAR ANESTHESIOLOGIST Signed: 01/22/2024 13:12 Receipt Acknowledged By: 01/22/2024 13:16 /es/ EVELYN FONTAINE, MS TAMIKO SAHU [facility]
--- OUTSIDE RECORDS SUMMARY | 2024-09-22 15:06 | XMS_ITS ---
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 [place] Organization [facility] Address [address] [place] [address] Care Team Providers Care Field Assembly Supervisor Name Role Phone JESSICA KAY Primary [...] [place] PREFERRED PROVIDER ORGANIZAT ION (PPO) [facility] [place]IV [place] Jun 03, 2013 [id number] [phone] JOSEPHINE DiamondROSITA SPOUSE MEDICARE (WNR) MEDICARE (M) PART B Jul 04, 2016 PART B [id number] [phone] JOSEPHINE DiamondELI PATIENT MEDICARE (WNR) MEDICARE (M) PART A Jul 04, 2016 PART A [id number] JOSEPHINE Diamond,ELI PATIENT MEDICARE (WNR) MEDICARE (M) PART A Jul 04, 2016 PART A [id number] [phone] RICHARDSO N,ELI PATIENT MEDICARE (WNR) MEDICARE (M) PART B Jul 04, 2016 PART B [id number] RICHARDSO N,ELI PATIENT MEDICARE (WNR) MEDICARE (M) PART A Jul 04, 2016 PART A [id number] RICHARDSO N,ELI PATIENT MEDICARE (WNR) MEDICARE (M) PART B Jul 04, 2016 PART B [id number] RICHARDSO N,ELI PATIENT MEDICARE (WNR) MEDICARE (M) PART A Jul 04, 2016 PART A [id number] [id number] RICHARDSO N,ELI PATIENT MEDICARE (WNR) MEDICARE (M) PART B Jul 04, 2016 PART B [id number] RICHARDSO N,ELI PATIENT PRIME THERAPEUTI CS RX PRESCRIPT ION RX PLAN Jun 03, 2013 [id number] [phone] EMMASO N,ELI PATIENT Selected Encounter This section includes the information on record at [place] for the Encounter. Date/Time Encounter Type Encounter Description Reason Provider Source Sep 21, 2024 02:15 PM SYNCH AUDIO-ONLY NEW HIGH 60 CARDIOLOGY ICD-10-CM I48.0 Paroxysmal atrial fibrillation JOSE CLOUD [facility] Encounter Template Text not used by [place] Assessments - Encounter Diagnoses This section includes the primary and secondary diagnoses documented for the Encounter. Date/Time Primary/Secondary Diagnosis Diagnosis Name Provider Source Sep 21, 2024 02:24 PM PRIMARY Paroxysmal atrial fibrillation [facility] CLOUD [facility] Plan of Treatment: Future Appointments (+ 6 months) and Future Tests (+/- 45 days) The Plan of Treatment section includes future care activities for the patient from all [place] treatmentfacilities. This section includes future appointments and future orders which are active, pending or scheduled. Future Appointments This section includes appointments that were scheduled to occur 6 months from the date of the Encounter, up to a maximum of 20 appointments. The data comes from all [place] treatment facilities. Appointment Date/Time Appointment Type Appointme nt Facility Name Jan 28, 2025 02:00 PM [facility]:00 PM AMBULAT[facility] - MEDICINE [facility] Active, Pending, and Scheduled Orders This section includes a listing of several types of active, pending, and scheduled orders, including clinic medications orders, diagnostic test orders, procedure orders and consult orders; where the start date of the order is 45 days before the date of the Encounter or 45 days after the date of theEncounter. The data comes from all [place] treatment facilities. Test Date/Time Test Type Test Details Facility Name Sep 14, 2024 11:02 AM Consult Order [facility] CONSULT OUTPT [facility] Cons Information Assurance Officer's Choice [facility] Lab Results: +/- 30 days of the encounter This section includes the Chemistry and Hematology Lab Results on record with [place] for the patient. Radiology Reports and Pathology Reports are provided separately, in subsequent sections. Lab Results This section contains the Chemistry/Hematology Results that were resulted 30 days before or 30 daysafter the date of the Encounter. Date/Time Source Result Type Result - Unit Interpretation Reference Range Specimen Type Comment Sep 01, 2024 12:48 PM [facility] BASIC METABOLIC PANEL PLASMA Specimen Type: PLASMA Comment: No hemolysis noted. Ordering Provider: PASTOR ROBERTSON Report Released Date/Time: Sep 01, 2024 12:22 PM Reporting Lab: [place] [address] [facility] [address] Performing Lab: [address] [address] CREATININE 1.28 mg/dL 0.7-1.3 UREA NITROGEN 21.6 mg/dL 9.0-25.0 GLUCOSE 148 mg/dL H 72-99 SODIUM 141 meq/L 136-145 POTASSIUM 5.1 meq/L H 3.5-5 CHLORIDE 105 meq/L 98-107 CARBON DIOXIDE 30 meq/L 22-31 CALCIUM 9.5 mg/dL 8.4-10.4 EGFR (CKD-EPI 2020) 61.3 >60 Aug 28, 2024 02:18 PM [facility] BRAIN NATRIURETIC PEPTIDE PLASMA Specimen Type : PLASMA No comment entered. Ordering Provider: PASTOR ROBERTSON Report Released Date/Time: Aug 28, 2024 01:59 PM Reporting Lab: [address] [address] Performing Lab: [address] [address] BRAIN NATRIURETIC PEPTIDE 356.1 pg/mL H 0- 100 Aug 28, 2024 02:18 PM [facility] BASIC METABOLIC PANEL PLASMA Specimen Type: PL ASMA Comment: No hemolysis noted. Ordering Provider: PASTOR ROBERTSON Report Released Date/Time: Aug 28, 2024 01:59 PM Reporting Lab: [address] [address] Performing Lab: [address] [address] CREATININE 1.09 mg/dL 0.7-1.3 UREA NITROGEN 16.4 mg/dL 9.0-25.0 GLUCOSE 110 mg/dL H 72-99 SODIUM 139 meq/L 136-145 POTASSIUM 4.7 meq/L 3.5-5 CHLORIDE 105 meq/L 98-107 CARBON DIOXIDE 27 meq/L 22-31 CALCIUM 9.1 mg/dL 8.4-10.4 EGFR (CKD-EPI 2020) 74.4 >60 Aug 28, 2024 02:18 PM [facility] CBC BLOOD Specimen Type: BLOOD No comment entered. Ordering Provider: PASTOR ROBERTSON Report Released Date/Time: Aug 28, 2024 01:59 PM Reporting Lab: [address] [address] Performing Lab: [address] [address] WBC 11.9 10*3/uL H 3.6-11.2 RBC 4.47 [...] the Encounter. The data comes from all [place] treatment facilities. Date/Time Radiology Report Provider Source Aug 28, 2024 11:[address] THORAX, DIAGNOS TIC, W/CONTRAST: ELI RUELAS [facility] [id number] -1955 M Ex Date: AUG 28, 2024@11:50 Req Phys: ALEM LUTHER Loc: [facility]-PULMONARY INTERVENTIONAL (R Img Loc: [facility]-CT IMAGING [facility] Service: Unknown [address] [address] (Case [id number] COMPLETE) CT THORAX, DIAGNOSTIC, W/CONTRAS(CT Detailed) CPT:87342 Contrast Media : Non-ionic Iodinated Reason for Study: Surveillance post resection of jennifer ca 2020 Clinical History: Responsible Attending: Shante Attending Contact Number: [phone] Resident Contact Number: Allergies listed in CPRS chart: CHANTIX Creatinine: CREATININE 1.16 mg/dL 02/15/2023 11:44 /eGFR: STL EGFR (within one year). CREATININE 1.16 mg/dL (02/15/23 11:44) Wt: 264 lb [119.75 kg] (08/30/2023 14:51) History of: Renal failure, chronic or acute renal disease: NO Report Status: Verified Date Reported: AUG 30, 2024 Date Verified: AUG 30, 2024 Semiconductor Development Technician E-Sig:/ES/Oswald Coronado MD Report: INDICATION: Surveillance post [...] process. Dictated by Dakota Hampton MD (residential youth counselor). I, Oswald Coronado, have reviewed the images and report and concur with these findings. Primary Interpreting Staff: Oswald Coronado MD, Radiologist (Semiconductor Development Technician) Primary Interpreting Resident: Resident ANN MARIE Physician /OSWALD HAMMONDS [facility] Encounter Notes: All associated encounter notes This section contains the clinical notes associated to the Encounter. Date/Time Encounter Note(s) Provider Source Sep 21, 2024 02:15 PM CARDIOLOGY NOTE: LOCAL TITLE: CARDIOLOGY CHART REVIEW [facility] STANDARD TITLE: CARDIOLOGY NOTE DATE OF NOTE: SEP 21, 2024@14:15 ENTRY DATE: SEP 21, 2024@14:15:52 AUTHOR: JOSE CLOUD EXP COSIGNER: URGENCY: STATUS: COMPLETED EP Consult received and information below is from a chart review only. Total time spent is 31+ minutes: 68 yo M with PMH of R [...] orthopnea, no PND, does have occasional leg swelling.He did have an episode of chest pain last year when he thought he was having a heart attack and [facility] and he was told everything was fine, he does not remember if a stress test was done, but remembers for sure that an ECHO was done and he was told his EF was normal. A/P The consult was placed for symptomtic AF, however the consult also says that the patient has not had AF since episode of post lung resection AF in 2020, which is often self-limiting. A 30 day event monitor has been ordered. Would wait for these results. If there is evidence of symptomatic AF, please reconsult EP at the time. Would recommend continuing anticoagulation. Please also let me know if I am wrong with my above interpretation that he has not had documented symptomatic atrial fibrillation since 2020. /es/ JOSE CLOUD MD CLINICAL CARDIAC MEAT CUTTING BLOCK REPAIRER Signed: 09/21/2024 14:24 Receipt Acknowledged By: * AWAITING SIGNATURE * NORIS STARR * AWAITING SIGNATURE * HOWARD SHEPHERD NIKHIL C [facility]
--- OUTSIDE RECORDS SUMMARY | 2024-09-22 15:06 | XMS_ITS | Encounter Summary ---
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 [place] Organization [facility] Address [address] [place] [address] Care Team Providers Care Trauma Therapist Name Role Phone JESSICA KAY Primary Care [...] ACTIV E [place] Jun 03, 2013 [id number] [phone] EMMAMICHELLE DiamondROSITA SPOUSE MEDICARE (WNR) MEDICARE (M) PART A Jul 04, 2016 PART A [id number] [phone] JOSEPHINE Diamond,ELI PATIENT MEDICARE (WNR) MEDICARE (M) PART B Jul 04, 2016 PART B [id number] JOSEPHINE Diamond,ELI PATIENT MEDICARE (WNR) MEDICARE (M) PART A Jul 04, 2016 PART A [id number] EMMASO N,ELI PATIENT MEDICARE (WNR) MEDICARE (M) PART A Jul 04, 2016 PART A [id number] RICHARDSO N,ELI PATIENT MEDICARE (WNR) MEDICARE (M) PART B Jul 04, 2016 PART B [id number] RICHARDSO N,ELI PATIENT MEDICARE (WNR) MEDICARE (M) PART B Jul 04, 2016 PART B [id number] RICHARDSO N,ELI PATIENT MEDICARE (WNR) MEDICARE (M) PART A Jul 04, 2016 PART A [id number] RICHARDSO N,ELI PATIENT MEDICARE (WNR) MEDICARE (M) PART B Jul 04, 2016 PART B [id number] RICHARDSO N,ELI PATIENT PRIME THERAPEUTI CS RX PRESCRIPT ION RX PLAN Jun 03, 2013 [id number] [phone] EMMASO N,ELI PATIENT Selected Encounter This section includes the information on record at [place] for the Encounter. Date/Time Encounter Type Encounter Description Reason Pro vider Source Apr 16, 2024 07:30 AM Outpatient Encounter CARDIAC CATHETERIZATION TAI GARCIA [facility] Encounter Template Text not used by [place] Plan of Treatment: Future Appointments (+ 6 months) and Future Tests (+/- 45 days) The Plan of Treatment section includes future care activities for the patient from all [place] treatmentfacilities. This section includes future appointments and future orders which are active, pending or scheduled. Future Appointments This section includes appointments that were scheduled to occur 6 months from the date of the Encounter, up to a maximum of 20 appointments. The data comes from all [place] treatment facilities. Appointment Date/Time Appointment Type Appointme nt Facility Name May 20, 2024 01:00 PM AMBULATORY - MEDICINE [facility] Aug 06, 2024 10:15 AM AMBULATORY - MEDICINE [facility] Aug 07, 2024 01:00 PM AMBULATORY - MEDICINE [facility] Aug 28, 2024 12:00 PM AMBULATORY - NONE [facility] Aug 28, 2024 02:30 PM AMBULATORY - MEDICINE [facility] Sep 16, 2024 01:00 PM AMBULATORY - MEDICINE [facility] Sep 17, 2024 02:00 PM AMBULATORY - MEDICINE [facility] Lab Results: +/- 30 [...] Unit Interpretation Reference Range Specimen Type Comment Apr 08, 2024 03:39 PM [facility] URINALYSIS (STL-PB) URINE Specimen Type: URINE No comment entered. Ordering Provider: WES GARCIA Report Released Date/Time: Apr 08, 2024 08:39 AM Reporting Lab: [facility] [place] [address] Performing Lab: [facility] [address] [place] [address] URINE COLOR Yellow Yellow U.BILIRUBIN Negative mg/dL Negative U.PH 6.5 5.0-8.0 APPEARANCE Clear Clear U.NITRITE Negative mg/dL Negative URN.GLUCOSE Normal mg/dL Negative URN.PROTEIN Negative mg/dL URN.UROBILINOGEN 2 mg/dL H Normal URN.BLOOD Negative mg/dL Negative-Trace URN.KETONES Negative mg/dL Negative-Trac e URN.LEUK.EST. Negative mg/dL Negative-Tr jason URN.SPECIFIC GRAVITY 1.023 Apr 08, 2024 03:39 PM [facility] MICRAL/CREAT PROFILE (STL) URINE Specimen Typ e: URINE No comment entered. Ordering Provider: WES GARCIA Report Released Date/Time: Apr 08, 2024 08:39 AM Reporting Lab: [facility] [facility] [address] Performing Lab: [facility] [place] [address] URINE ALBUMIN (PB-STL) 8 mg/L No range refer to micral/creat ratio uACR (STL) 6 mg/g 0-29 CREATININE URINE/OTHERS 139.8 mg/dL 63.0 -166.0 Apr 08, 2024 03:32 PM [facility] CBC BLOOD Specimen Type: BLOOD No comment entered. Ordering Provider: WES GARCIA Report Released Date/Time: Apr 08, 2024 08:39 AM Reporting Lab: [facility] [address] [facility] [phone] Performing Lab: [facility] [address] [facility] [address] WBC 9.3 10*3/uL 3.6-11.2 RBC 4.43 10*6/uL [...] AUTO % 1 LYMPHOCYTES, ABSOLUTE 1.99 10*3/uL 0.77- 4.50 MONOCYTES, ABSOLUTE 0.81 10*3/uL H 0.19-0. 80 NEUTROPHILS, ABSOLUTE 6.26 10*3/uL 2.10- 8.00 EOSINOPHILS, ABSOLUTE 0.12 10*3/uL 0.00- 0.60 BASOPHILS, ABSOLUTE 0.08 10*3/uL 0.00-0. 20 Apr 08, 2024 03:32 PM [facility] HGA1C BLOOD Specimen Type: BLOOD No comment entered. Ordering Provider: WES GARCIA Report Released Date/Time: Apr 08, 2024 08:39 AM Reporting Lab: [facility] [facility] [phone] Performing Lab: [facility] [address] [place] [id number] HGA1C 6.3 H 4.0-6.0 Apr 08, 2024 03:32 PM [facility] VITAMIN D, 25-HYDROXY SERUM Specimen Type: SE RUM No comment entered. Ordering Provider: WES GARCIA Report Released Date/Time: Apr 08, 2024 08:39 AM Reporting Lab: [facility] [address] [place] [address] Performing Lab: [facility] [address] [place] [address] VITAMIN D, 25-HYDROXY 33.1 ng/mL 30-96 Apr 08, 2024 03:32 PM [facility] TSH (MA-PB) SERUM Specimen Type: SERUM No comment entered. Ordering Provider: WES GARCIA Report Released Date/Time: Apr 08, 2024 08:39 AM Reporting Lab: [facility] [address] [place] [address] Performing Lab: [facility] [address] [place] [address] TSH 1.120 u[IU]/mL 0.470-5.000 Apr 08, 2024 03:32 PM [facility] COMPREHENSIVE METABOLIC PANEL PLASMA Specimen Type: PLASMA Comment: No hemolysis noted. Ordering Provider: WSE GARCIA Report Released Date/Time: Apr 08, 2024 08:39 AM Reporting Lab: [facility] [address] [place] [address] Performing Lab: [facility] [address] [place] [address] CREATININE 1.07 mg/dL 0.70-1.30 UREA NITROGEN 11.6 [...] U/L 8-40 EGFR (CKD-EPI 2020) 76.06 >60 Apr 08, 2024 03:32 PM [facility] LIPID PANEL (STL) PLASMA Specimen Type: PLASM A Comment: No hemolysis noted. Ordering Provider: WES GARCIA Report Released Date/Time: Apr 08, 2024 08:39 AM Reporting Lab: [facility] [phone] Performing Lab: [facility] [facility] [phone] CHOLESTEROL 147 mg/dL 0-200 TRIGLYCERIDE 110 mg/dL 0-150 CALCULATED LDL 90 mg/dL See Interp HDL(New) 35 mg/dL L > 40 Radiology Reports: +/- 30 days of the [...] the Encounter. The data comes from all [place] treatment facilities. Date/Time Radiology Report Provider Source Apr 08, 2024 03:44 PM KNEE,RIGHT 3 VIEWS : RUELASELI JOSY [id number] -1955 Exm Date: APR 08, 2024@15:44 Req Phys: WES GARCIA Pat Loc: [facility]PA[facility] E3 PCP (Reguillaume'g Loc) Img Loc: [facility] Service: [address] [address] (Case [id number] COMPLETE) KNEE,RIGHT 3 VIEWS (RAD Detailed) CPT:34385 Proc Modifiers : RIGHT Reason for Study: Worsening knee pain Clinical History: Worsening knee pain Report Status: Verified Date Reported: APR 09, 2024 Date Verified: APR 09, 2024 Certified Orthotist E-Sig:/ALISON/MARIAN AMBROSE MD Report: Case #: [id number]. Right [...] MARIAN AMBROSE MD, Staff Physician - Radiologist (Certified Orthotist) /MARIAN FORBES [facility] Apr 08, 2024 03:44 PM KNEE,LEFT, 3 VIEWS : ELI RUELAS [id number] -1955 M Exm Date: APR 08, 2024@15:44 Req Phys: JOSÉ GARCIASA Pat Loc: [facility]-PACT E3 PCP (Req'g Loc) Img Loc: [facility]- [facility]IOLOGY Service: [address] [address] (Case [id number] COMPLETE) KNEE,LEFT, 3 VIEWS (RAD Detailed) CPT:98910 Proc Modifiers : LEFT Reason for Study: Worsening knee pain Clinical History: Worsening knee pain Report Status: Verified Date Reported: APR 09, 2024 Date Verified: APR 09, 2024 Certified Orthotist E-Sig:/ALISON/MARIAN AMBROSE MD Report: Case #: [id number]. Left [...] MARIAN AMBROSE MD, Staff Physician - Radiologist (Certified Orthotist) /MARIAN FORBES [facility] Encounter [...] DATE/TIME PERFORMED: APR 16, 2024@07:30 DOCUMENT IN [employer] IM[facility] SEE FULL REPORT IN [facility]ISTA IMAGING Administrative Closure: 04/16/2024 by: CLINICAL,DEVICE PROXY SERVICE CLINICAL,DEVICE PROXY SERVICE [facility]
--- OUTSIDE RECORDS SUMMARY | 2024-09-22 15:06 | XMS_ITS | Encounter Summary ---
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 [place] Organization [facility] Address [address] [place] [address] Care Team Providers Care Form Builder Helper Name Role Phone JESSICA KAY Primary Care [...] ACTIV E [place] HIGH Jun 03, 2013 [id number] [phone] JOSEPHINE DiamondROSITA SPOUSE MEDICARE (WNR) MEDICARE (M) PART A Jul 04, 2016 PART A [id number] [phone] HERMES GRIMMY PATIENT MEDICARE (WNR) MEDICARE (M) PART B Jul 04, 2016 PART B [id number] JOSEPHINE DiamondELI PATIENT MEDICARE (WNR) MEDICARE (M) PART B Jul 04, 2016 PART B [id number] RICHARDSO N,ELI PATIENT MEDICARE (WNR) MEDICARE (M) PART A Jul 04, 2016 PART A [id number] [phone] RICHARDSO N,ELI PATIENT MEDICARE (WNR) MEDICARE (M) PART A Jul 04, 2016 PART A [id number] RICHARDSO N,ELI PATIENT MEDICARE (WNR) MEDICARE (M) PART B Jul 04, 2016 PART B [id number] [phone] RICHARDSO N,ELI PATIENT MEDICARE (WNR) MEDICARE (M) PART A Jul 04, 2016 PART A [id number] EMMASO N,ELI PATIENT MEDICARE (WNR) MEDICARE (M) PART B Jul 04, 2016 PART B [id number] EMMASO N,ELI PATIENT PRIME THERAPEUTI CS RX PRESCRIPT ION RX PLAN Jun 03, 2013 [id number] [phone] RICHARDSO N,ELI PATIENT Selected Encounter This section includes the information on record at [place] for the Encounter. Date/Time Encounter Type Encounter Description Reason Pro vider Source October 24, 2023 01:30 PM OFF/OP CNSLTJ NEW/EST LOW 30 GASTROENTEROLOGY ICD-10-CM Z86.010 Personal history of colonic polyps WILLIAM BRANDT IHRedd Encounter Template Text not used by [place] Assessments - Encounter Diagnoses This section includes the primary and secondary diagnoses documented for the Encounter. Date/Time Primary/Secondary Diagnosis Diagnosis Name Provider Source October 24, 2023 01:54 PM PRIMARY Personal history of colonic polyps LENO BRANDT [facility] Plan of Treatment: Future Appointments [...] 20 appointments. The data comes from all [place] treatment facilities. Appointment Date/Time Appointment Type Appointme nt Facility Name Nov 05, 2023 10:00 AM AMBULATORY - SURGERY [facility] Nov 12, 2023 11:00 AM AMBULATORY - MEDICINE [facility] Nov 21, 2023 01:00 PM AMBULATORY - NONE [facility] Dec 12, 2023 02:00 PM AMBULATORY - NONE [facility] Dec 17, 2023 11:00 AM [facility] Dec 19, 2023 01:00 PM [facility] - N[facility] Dec 19, 2023 03:00 PM AMBULATORY - MEDICINE [facility] Dec 23, 2023 10:00 AM AMBULATORY - MEDICINE [facility] Dec 26, 2023 01:00 PM AMBULATORY - NONE [facility] Dec 31, 2023 02:00 PM AMBULATORY - NONE [facility] Jan 02, 2024 02:00 PM AMBULATORY - NONE [facility] [facility] Jan 03, 2024 01:30 PM AMBULATORY - MEDICINE [facility] Jan 09, 2024 01:00 PM AMBULATORY - NONE [facility] [facility] Jan 22, 2024 01:15 PM AMBULATORY - MEDICINE [facility] Mar 19, 2024 04:30 PM AMBULATORY - MEDICINE [facility] Apr 08, 2024 02:30 PM AMBULATORY - MEDICINE [facility] Apr 16, 2024 07:30 AM AMBULATORY - MEDICINE [facility] Encounter Notes: All associated encounter notes This [...] 11/05/2023 08:12 /loreta/ SHARON BRANDT PAC PHYSICIAN AGRICULTURE INSPECTOR GI --- Original Document --- 10/24/23 GASTROENTEROLOGY OUTPATIENT CONSULT [facility]: Attempts were made to complete video consultation without success. Pt was agreeable to complete visit via telephone. Jessenia is a 68 year old [place] who was referred to GI for colorectal cancer screening. Prior colonoscopy in 2019 per pt with 7 polyps removed. He believes this was done at [facility] in [place], [place]; however, PCP states it was done at [facility]. The pt reports getting sick from the [...] list was reviewed with the patient or care-resident caregiver, any discrepancies were resolved. On the following [...] BY MOUTH EVERY ACTIVE EVENING 4) Non-VA [id number]/VILANTEROL 25MCG 30D INH 1 ACTIVE PUFF ORAL [...] Reminded patient that they must have a transporter driver to bring them to the appointment and take them home. Will attempt to get prior records before scheduling to verify when procedure was done and what prep he used before. GI nurse to call for scheduling/education. All questions answered. Pt IS currently taking anticoagulants (Plavix) that need to be held prior to testing (Dr. Fuentes in [place], [place] is prescribing physician). Pt was agreeable to this plan. Time spent on encounter, including time spent speaking with the pt, chart review, and placing orders: 30 minutes 1324 /argelia BRANDT PAC PHYSICIAN AGRICULTURE INSPECTOR GI Signed: 10/24/2023 14:27 10/31/2023 ADDENDUM STATUS: COMPLETED Colonoscopy records received and reviewed. His last colonoscopy was at [facility] on 01/13/21. Procedure complete to cecum with [...] ok to hold. /argelia BRANDT PAC PHYSICIAN AGRICULTURE INSPECTOR GI Signed: 10/31/2023 10:01 10/31/2023 ADDENDUM STATUS: COMPLETED Correction, plavix is prescribed by outside provider d/t h/o ischemic stroke (Dr. Fuentes in [place] is prescribing physician). Will contact that provider to discuss holding anticoagulation. /argelia BRANDT PAC PHYSICIAN AGRICULTURE INSPECTOR GI Signed: 10/31/2023 10:03 10/31/2023 ADDENDUM STATUS: COMPLETED request sent asking for authorization to hold plavix 7 days prior to colonoscopy /argelia TURNERN RN REGISTERED NURSE Signed: 10/31/2023 12:[address] [facility] October 24, 2023 01:26 PM GASTROENTEROLOGY C ONSULT: LOCAL TITLE: GASTROENTEROLOGY OUTPATIENT CONSULT [facility] STANDARD TITLE: GASTROENTEROLOGY CONSULT DATE OF NOTE: OCTOBER 24, 2023@13:26 ENTRY DATE: OCTOBER 24, 2023@13:27:02 AUTHOR: SHARON BRANDT COSIGNER: URGENCY: STATUS: COMPLETED GASTROENTEROLOGY OUTPATIENT CONSULT [facility] Has ADDENDA Attempts were made to complete video consultation without success. Pt was agreeable to complete visit via telephone. Jessenia is a 68 year old [place] who was referred to GI for colorectal cancer screening. Prior colonoscopy in 2019 per pt with 7 polyps removed. He believes this was done at [facility] in [place], [place]; however, PCP states it was done at [facility]. The pt reports getting sick from the [...] list was reviewed with the patient or care-resident caregiver, any discrepancies were resolved. On the following [...] BY MOUTH EVERY ACTIVE EVENING 4) Non-VA [id number]/VILANTEROL 25MCG 30D INH 1 ACTIVE PUFF ORAL [...] Reminded patient that they must have a transporter driver to bring them to the appointment and take them home. Will attempt to get prior records before scheduling to verify when procedure was done and what prep he used before. GI nurse to call for scheduling/education. All questions answered. Pt IS currently taking anticoagulants (Plavix) that need to be held prior to testing (Dr. Fuentes in [place] is prescribing physician). Pt was agreeable to this plan. Time spent on encounter, including time spent speaking with the pt, chart review, and placing orders: 30 minutes 1324 /argelia BRANDT PAC PHYSICIAN AGRICULTURE INSPECTOR GI Signed: 10/24/2023 14:27 10/31/2023 ADDENDUM STATUS: COMPLETED Colonoscopy records received and reviewed. His last colonoscopy was at [facility] on 01/13/21. Procedure complete to cecum with [...] ok to hold. /argelia BRANDT PAC PHYSICIAN AGRICULTURE INSPECTOR GI Signed: 10/31/2023 10:01 10/31/2023 ADDENDUM STATUS: COMPLETED Correction, plavix is prescribed by outside provider d/t h/o ischemic stroke (Dr. Fuentes in [place] is prescribing physician). Will contact that provider to discuss holding anticoagulation. /argelia BRANDT PAC PHYSICIAN AGRICULTURE INSPECTOR GI Signed: 10/31/2023 10:03 10/31/2023 ADDENDUM STATUS: COMPLETED request sent asking for authorization to hold plavix 7 days prior to colonoscopy /argelia ALCANTAR RN REGISTERED NURSE Signed: 10/31/2023 12:17 11/01/2023 ADDENDUM STATUS: COMPLETED received written authorization from Dr. Neymar Fuentes for patient to hold clopidrogel 75 mg 7 days prior to colonoscopy. /argelia ALCANTAR RN REGISTERED NURSE Signed: 11/01/2023 11:40 Receipt Acknowledged By: 11/05/2023 08:12 /loreta/ SHARON BRANDT PAC PHYSICIAN AGRICULTURE INSPECTOR GI 11/13/2023 ADDENDUM STATUS: COMPLETED Appt letter and instructions mailed per orders. /loreta/ KATHARINE Armenta, RN GI Signed: 11/13/2023 07:18 [facility]
--- OUTSIDE RECORDS SUMMARY | 2024-09-22 15:06 | XMS_ITS | Referral Summary ---
Author Organization [facility] Address [address] [place] [address] Care Team Providers Care Polysomnographic Technician Name Role Phone Neymar Fuentes MD Primary Care Provider [phone] Allergies No known active allergies Medications clopidogreL [...] Noted Date Diagnosed Date Paroxysmal atrial fibrillation 10/25/2020 Right bundle branch block 10/06/2020 Social History Tobacco Use Types Packs/Day Years Used Date Smoking Tobacco: Former Smokeless Tobacco: Never Tobacco Cessation:Counseling Given: Not Answered Personal Safety Answer Date Recorded Getting School Help Needed Not on file 05/15 Sex and Gender Information Value Date Recorded Sex Assigned at Not on file 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
--- OUTSIDE RECORDS SUMMARY | 2024-09-22 15:06 | XMS_ITS | Encounter Summary ---
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 [place] Organization [facility] Address [address] [place] [address] Care Team Providers Care Surgical Services Tech Name Role Phone JESSICA KAY Primary Care [...] ACTIV E [place] HIGH Jun 03, 2013 [id number] [phone] JOSEPHINE DiamondROSITA SPOUSE MEDICARE (WNR) MEDICARE (M) PART A Jul 04, 2016 PART A [id number] JOSEPHINE Diamond,ELI PATIENT MEDICARE (WNR) MEDICARE (M) PART B Jul 04, 2016 PART B [id number] EMMAMICHELLE Diamond,ELI PATIENT MEDICARE (WNR) MEDICARE (M) PART B Jul 04, 2016 PART B [id number] EMMASO N,ELI PATIENT MEDICARE (WNR) MEDICARE (M) PART A Jul 04, 2016 PART A [id number] EMMASO N,ELI PATIENT MEDICARE (WNR) MEDICARE (M) PART A Jul 04, 2016 PART A [id number] EMMASO N,ELI PATIENT MEDICARE (WNR) MEDICARE (M) PART B Jul 04, 2016 PART B [id number] EMMASO N,ELI PATIENT MEDICARE (WNR) MEDICARE (M) PART A Jul 04, 2016 PART A [id number] [phone] EMMASO N,ELI PATIENT MEDICARE (WNR) MEDICARE (M) PART B Jul 04, 2016 PART B [id number] EMMASO NELI PATIENT PRIME THERAPEUTI CS RX PRESCRIPT ION RX PLAN Jun 03, 2013 [id number] [phone] JOSEPHINE N,ELI PATIENT Selected Encounter This section includes the information on record at [place] for the Encounter. 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 Date/Time Primary/Secondary Diagnosis Diagnosis Name Provider Source May 22, 2024 10:57 AM PRIMARY Cerebellar stroke syndrome [facility] Plan of Treatment: Future Appointments [...] 06, 2024 10:15 AM AMBULATORY - MEDICINE [facility] Aug 07, 2024 01:00 PM AMBULATORY - MEDICINE [facility] Aug 28, 2024 12:00 PM AMBULATORY - NONE [facility] Aug 28, 2024 02:30 PM AMBULATORY - MEDICINE [facility] Sep 16, 2024 01:00 PM AMBULATORY - MEDICINE [facility] Sep 17, 2024 02:00 PM AMBULATORY - MEDICINE [facility] Lab Results: +/- 30 days of the encounter This section includes the Chemistry and Hematology Lab Results on record with [place] for the patient. Radiology Reports and Pathology Reports are provided separately, in subsequent sections. Lab Results This section contains the Chemistry/Hematology Results that were resulted 30 days before or 30 daysafter the date of the Encounter. Date/Time Source Result Type Result - Unit Interpretation Reference Range Specimen Type Comment May 20, 2024 02:14 PM [facility] URINALYSIS ([facility]) URINE Specimen Type: URINE No comment entered. Ordering Provider: WES GARCIA Report Released Date/Time: May 20, 2024 08:32 AM Reporting Lab: [facility] [facility] [id number] Performing Lab: [facility] [facility] [phone] URINE COLOR Light-Yellow Yellow U.BILIRUBIN Negative mg/dL Negative U.PH 7.0 5.0-8.0 APPEARANCE Clear Clear U.NITRITE Negative mg/dL Negative URN.GLUCOSE Normal mg/dL Negative URN.PROTEIN Negative mg/dL URN.UROBILINOGEN 2 mg/dL H Normal URN.BLOOD Negative mg/dL Negative-Trace URN.KETONES Negative mg/dL Negative-Trac e URN.LEUK.EST. Negative mg/dL Negative-Tr jason URN.SPECIFIC GRAVITY 1.016 May 20, 2024 02:04 PM [facility] COMPREHENSIVE METABOLIC PANEL PLASMA Specimen Type: PLASMA Comment: No hemolysis noted. Ordering Provider: WES GARCIA Report Released Date/Time: May 20, 2024 08:32 AM Reporting Lab: [facility] [id number] Performing Lab: [facility] [facility] [id number] CREATININE 1.06 mg/dL 0.70-1.30 UREA NITROGEN 13.3 [...] 76.92 >60 May 20, 2024 02:04 PM [facility] CBC BLOOD Specimen Type: BLOOD No comment entered. Ordering Provider: WES GARCIA Report Released Date/Time: May 20, 2024 08:32 AM Reporting Lab: [facility] [place] [phone] Performing Lab: [facility] [place] [phone] WBC 10.1 10*3/uL 3.6-11.2 RBC 4.67 10*6/uL [...] AM CONSULT: LOCAL TITLE: E-CONSULT NEUROLOGY OUTPT ST STANDARD TITLE: CONSULT DATE OF NOTE: MAY 22, 2024@10:42 ENTRY DATE: MAY 22, 2024@10:42:07 AUTHOR: DONTAE SMILEY COSIGNER: URGENCY: STATUS: COMPLETED The reason for [...] BY MOUTH EVERY EVENING ACTIVE 4) Non-VA [id number]/VILANTEROL 25MCG 30D INH 1 PUFF ORAL ACTIVE [...] spent reviewing patient's medical records /loreta/ Dontae Smiley MD Neurology Staff Physician Signed: 05/22/2024 10:57 DONTAE SMILEY [facility]
--- OUTSIDE RECORDS SUMMARY | 2024-09-22 15:06 | XMS_ITS | Clinical Summary ---
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
--- OUTSIDE RECORDS SUMMARY | 2024-09-22 15:06 | XMS_ITS | Encounter Summary ---
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 [place] [facility] [place] Address [address] [place] [address] Care Team Providers Care Professor Of Sociology Name Role Phone JESSICA KAY Primary Care [...] ACTIV E [place] HIGH Jun 03, 2013 [id number] [phone] JOSEPHINE DiamondROSITA SPOUSE MEDICARE (WNR) MEDICARE (M) PART A Jul 04, 2016 PART A [id number] JOSEPHINE DiamondELI PATIENT MEDICARE (WNR) MEDICARE (M) PART B Jul 04, 2016 PART B [id number] JOSEPHINE DiamondELI PATIENT MEDICARE (WNR) MEDICARE (M) PART A Jul 04, 2016 PART A [id number] RICHARDSO N,ELI PATIENT MEDICARE (WNR) MEDICARE (M) PART A Jul 04, 2016 PART A [id number] RICHARDSO N,ELI PATIENT MEDICARE (WNR) MEDICARE (M) PART B Jul 04, 2016 PART B [id number] RICHARDSO N,ELI PATIENT MEDICARE (WNR) MEDICARE (M) PART B Jul 04, 2016 PART B [id number] [phone] RICHARDSO N,ELI PATIENT MEDICARE (WNR) MEDICARE (M) PART A Jul 04, 2016 PART A [id number] [phone] EMMASO N,ELI PATIENT MEDICARE (WNR) MEDICARE (M) PART B Jul 04, 2016 PART B [id number] [phone] EMMASO N,ELI PATIENT PRIME THERAPEUTI CS RX PRESCRIPT ION RX PLAN Jun 03, 2013 [id number] [phone] EMMASO N,ELI PATIENT Selected Encounter This section includes the information on record at NH for the Encounter. Date/Time Encounter Type Encounter Description Reason Pro vider Source Sep 22, 2024 01:35 PM Outpatient Encounter ADMIN PAT ACTIVTIES (MASNONCT) I[facility] Encounter Template Text not used by [place] Plan of Treatment: Future Appointments (+ 6 months) and Future Tests (+/- 45 days) The Plan of Treatment section includes future care activities for the patient from all [place] treatmentfacilities. This section includes future appointments and future orders which are active, pending or scheduled. Future Appointments This section includes appointments that were scheduled to occur 6 months from the date of the Encounter, up to a maximum of 20 appointments. The data comes from all [place] treatment facilities. Appointment Date/Time Appointment Type Appointme nt Facility Name Jan 28, 2025 02:00 PM [facility]BUL[facility]ORY - MEDICINE [facility] 2025 01:00 PM [facility] - MED[facility]INE [facility] Active, Pending, and Scheduled Orders This section includes a listing of several types of active, pending, and scheduled orders, including clinic medications orders, diagnostic test orders, procedure orders and consult orders; where the start date of the order is 45 days before the date of the Encounter or 45 days after the date of theEncounter. The data comes from all [place] treatment facilities. Test Date/Time Test Type Test Details Facility Name Sep 14, 2024 11:02 AM Consult Order [facility] CONSULT OUTPT [address] [employer] [facility] Lab Results: +/- 30 days of the encounter This section includes the Chemistry and Hematology Lab Results on record with NH for the patient. Radiology Reports and Pathology Reports are provided separately, in subsequent sections. Lab Results This section contains the Chemistry/Hematology Results that were resulted 30 days before or 30 daysafter the date of the Encounter. Date/Time Source Result Type Result - Unit Interpretation Reference Range Specimen Type Comment Sep 01, 2024 12:48 PM [facility] BASIC METABOLIC PANEL PLASMA Specimen Type: PLASMA Comment: No hemolysis noted. Ordering Provider: PASTOR ROBERTSON Report Released Date/Time: Sep 01, 2024 12:22 PM Reporting Lab: [address] [address] Performing Lab: [address] [address] CREATININE 1.28 mg/dL 0.7-1.3 UREA NITROGEN 21.6 mg/dL 9.0-25.0 GLUCOSE 148 mg/dL H 72-99 SODIUM 141 meq/L 136-145 POTASSIUM 5.1 meq/L H 3.5-5 CHLORIDE 105 meq/L 98-107 CARBON DIOXIDE 30 meq/L 22-31 CALCIUM 9.5 mg/dL 8.4-10.4 EGFR (CKD-EPI 2020) 61.3 >60 Aug 28, 2024 02:18 PM [facility] BRAIN NATRIURETIC PEPTIDE PLASMA Specimen Type : PLASMA No comment entered. Ordering Provider: PASTOR ROBERTSON Report Released Date/Time: Aug 28, 2024 01:59 PM Reporting Lab: [address] [address] Performing Lab: [address] [address] BRAIN NATRIURETIC PEPTIDE 356.1 pg/mL H 0- 100 Aug 28, 2024 02:18 PM [facility] BASIC METABOLIC PANEL PLASMA Specimen Type: PL ASMA Comment: No hemolysis noted. Ordering Provider: PASTOR ROBERTSON Report Released Date/Time: Aug 28, 2024 01:59 PM Reporting Lab: [facility] [address] [facility] [address] Performing Lab: [address] [address] CREATININE 1.09 mg/dL 0.7-1.3 UREA NITROGEN 16.4 mg/dL 9.0-25.0 GLUCOSE 110 mg/dL H 72-99 SODIUM 139 meq/L 136-145 POTASSIUM 4.7 meq/L 3.5-5 CHLORIDE 105 meq/L 98-107 CARBON DIOXIDE 27 meq/L 22-31 CALCIUM 9.1 mg/dL 8.4-10.4 EGFR (CKD-EPI 2020) 74.4 >60 Aug 28, 2024 02:18 PM [facility] CBC BLOOD Specimen Type: BLOOD No comment entered. Ordering Provider: PASTOR ROBERTSON Report Released Date/Time: Aug 28, 2024 01:59 PM Reporting Lab: [facility] [address] [place] [id number] Performing Lab: [address] [address] WBC 11.9 10*3/uL H 3.6-11.2 RBC 4.47 [...] the Encounter. The data comes from all [place] treatment facilities. Date/Time Radiology Report Provider Source Aug 28, 2024 11:[address] THORAX, DIAGNOS TIC, W/CONTRAST: JESSENIAELI JOSY [id number] -1955 M Exm Date: AUG 28, 2024@11:50 Req Phys: ALEM LUTHER Loc: [facility]-PULMONARY INTERVENTIONAL (R Img Loc: [facility]-CT IMAGING [facility] Service: [facility] ([place], [address] [address] (Case [id number] COMPLETE) CT THORAX, DIAGNOSTIC, W/CONTRAS(CT Detailed) CPT:49907 Contrast Media : Non-ionic Iodinated Reason for Study: Surveillance post resection of jennifer ca 2020 Clinical History: Responsible Attending: Shante Attending Contact Number: [phone] Resident Contact Number: Allergies listed in CPRS chart: CHANTIX Creatinine: CREATININE 1.16 mg/dL 02/15/2023 11:44 /eGFR: STL EGFR (within one year). CREATININE 1.16 mg/dL (02/15/23 11:44) Wt: 264 lb [119.75 kg] (08/30/2023 14:51) History of: Renal failure, chronic or acute renal disease: NO Report Status: Verified Date Reported: AUG 30, 2024 Date Verified: AUG 30, 2024 [place] E-Sig:/ES/Oswald Coronado MD Report: INDICATION: Surveillance post [...] abdominal process. Dictated by Dakota Hampton MD (finance vice president). I, Oswald Coronado, have reviewed the images and report and concur with these findings. Primary Interpreting Staff: Oswald Coronado MD, Radiologist ([employer]) Primary Interpreting Resident: Resident ANN MARIE Physician /OSWALD HAMMONDS [facility] Encounter Notes: All associated encounter notes This section contains the clinical notes associated to the Encounter. Date/Time Encounter Note(s) Provider Source Sep 22, 2024 12:35 PM ADMINISTRATIVE NOT E: LOCAL TITLE: CCC: SCHEDULING ADMINISTRATION STANDARD TITLE: ADMINISTRATIVE NOTE DATE OF NOTE: SEP 22, 2024@12:35:23 ENTRY DATE: SEP 22, 2024@12:35:23 AUTHOR: JACEY RAMIREZ EXP COSIGNER: URGENCY: STATUS: COMPLETED Caller Verification Emergency Contact: ROSETTE RUELAS Caller/Recipient Relation to Patient: Self Caller Name: ELI RUELAS Administrative Administrative Note Reason: Other Administrative Note Comments: [facility] called in to speak with Cardiology about an appt. Please call to discuss phone verified. IMPORTANT: This note was created by [facility] Clinical Contact Center staff. Please do not alert the staff member by adding them as a signer for future communications. Alerts are not monitored by this user. /loreta/ MASSIEL RAMIREZ Signed: 09/22/2024 12:35 Receipt Acknowledged By: * AWAITING SIGNATURE * ELVIA ALVARENGA VANESS A IRENE [facility]
--- OUTSIDE RECORDS SUMMARY | 2024-09-22 15:07 | XMS_ITS | Encounter Summary ---
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 [place] [facility] Address [address] [place] [id number] Care Team Providers Care School Crossing Guard Name Role Phone ELIZAJESSICA Primary Care Provider [...] ACTIV E [place] HIGH Jun 03, 2013 [phone] JOSEPHINE DiamondROSITA SPOUSE MEDICARE (WNR) MEDICARE (M) PART A Jul 04, 2016 PART A [id number] [phone] ELI GRIMM PATIENT MEDICARE (WNR) MEDICARE (M) PART B Jul 04, 2016 PART B [id number] [phone] HERMES GRIMMY PATIENT MEDICARE (WNR) MEDICARE (M) PART B Jul 04, 2016 PART B [id number] [phone] RICHARDSO N,ELI PATIENT MEDICARE (WNR) MEDICARE (M) PART A Jul 04, 2016 PART A [id number] [facility] EMMASO N,ELI PATIENT MEDICARE (WNR) MEDICARE (M) PART A Jul 04, 2016 PART A [id number] [facility] EMMASO N,ELI PATIENT MEDICARE (WNR) MEDICARE (M) PART B Jul 04, 2016 PART B [id number] [facility] JOSEPHINE N,ELI PATIENT MEDICARE (WNR) MEDICARE (M) PART A Jul 04, 2016 PART A [id number] [phone] JOSEPHINE N,ELI PATIENT MEDICARE (WNR) MEDICARE (M) PART B Jul 04, 2016 PART B [id number] [phone] JOSEPHINE N,ELI PATIENT PRIME THERAPEUTI CS RX PRESCRIPT ION RX PLAN Jun 03, 2013 [id number] [phone] JOSEPHINE N,ELI PATIENT Selected Encounter This section includes the information on record at [place] for the Encounter. Date/Time Encounter Type Encounter Description Reason Pro vider Source I[facility] Encounter Template Text not used by [place]
--- OUTSIDE RECORDS SUMMARY | 2024-09-22 15:07 | XMS_ITS | Encounter Summary ---
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 [place] [facility] Address [address] [place] [address] Care Team Providers Care Electrical Tryout Person Name Role Phone JESSICA KAY Primary Care Provider UnavailYANIV Gallegos Unavailable Unavailable JENY TAVAREZ Unavailable Unavailable ELSY, ISAAC Unavailable Unavailable RYAN TORRES Unavailable Unavailable PAOLA SMITH Unavailable Unavailable ALEM LAURENT Unavailable Unavailable ELVIA ANTONIO Unavailable Unavailable WES GARCAI Primary Care Provider Unavaila ble Insurance Providers: [...] ACTIV E [place]IGH Jun 03, 2013 [id number] [phone] JOSEPHINE DiamondROSITA SPOUSE MEDICARE (WNR) MEDICARE (M) PART A Jul 04, 2016 PART A [id number] [phone] JOSEPHINE DiamondELI PATIENT MEDICARE (WNR) MEDICARE (M) PART B Jul 04, 2016 PART B [id number] [phone] JOSEPHINE Diamond,ELI PATIENT MEDICARE (WNR) MEDICARE (M) PART A Jul 04, 2016 PART A [id number] RICHARDSO N,ELI PATIENT MEDICARE (WNR) MEDICARE (M) PART B Jul 04, 2016 PART B [id number] RICHARDSO N,ELI PATIENT MEDICARE (WNR) MEDICARE (M) PART A Jul 04, 2016 PART A [id number] RICHARDSO N,ELI PATIENT MEDICARE (WNR) MEDICARE (M) PART B Jul 04, 2016 PART B [id number] [phone] RICHARDSO N,ELI PATIENT MEDICARE (WNR) MEDICARE (M) PART A Jul 04, 2016 PART A [id number] RICHARDSO N,ELI PATIENT MEDICARE (WNR) MEDICARE (M) PART B Jul 04, 2016 PART B [id number] RICHARDSO N,ELI PATIENT PRIME THERAPEUTI CS RX PRESCRIPT ION RX PLAN Jun 03, 2013 [id number] [phone] RICHARDSO N,ELI PATIENT Selected Encounter This section includes the information on record at [place] for the Encounter. Date/Time Encounter Type Encounter Description Reason Provider Source May 11, 2024 03:16 PM REM INTERROG DEV EVAL SCRMS CIED DEVICES ICD-10-CM G46.4 Cerebellar stroke syndrome JOSE BARNES IHRedd Encounter Template Text not used by [place] Assessments - Encounter Diagnoses This section includes the primary and secondary diagnoses documented for the Encounter. Date/Time Primary/Secondary Diagnosis Diagnosis Name Provider Source May 13, 2024 11:34 AM PRIMARY Cerebellar stroke syndrome ADVID ERICKSON [facility] Plan of Treatment: Future Appointments (+ 6 months) and Future Tests (+/- 45 days) The Plan of Treatment section includes future care activities for the patient from all [place] treatmentfacilities. This section includes future appointments and future orders which are active, pending or scheduled. Future Appointments This section includes appointments that were scheduled to occur 6 months from the date of the Encounter, up to a maximum of 20 appointments. The data comes from all [place] treatment facilities. Appointment Date/Time Appointment Type Appointme nt Facility Name May 20, 2024 01:00 PM [facility] Aug 06, 2024 10:15 AM AMBULATORY - MEDICINE [facility] Aug 07, 2024 01:00 PM AMBULATORY - MEDICINE [facility] Aug 28, 2024 12:00 PM AMBULATORY - NONE [facility] Aug 28, 2024 02:30 PM [facility]UL[facility]ORY - MEDICINE [facility] Sep 16, 2024 01:00 PM AMBULATORY - MEDICINE [facility] Sep 17, 2024 02:00 PM AMBULATORY - MEDICINE [facility] Lab Results: +/- [...] Type Comment May 20, 2024 02:14 PM [facility] URINALYSIS (STL-PB) URINE Specimen Type: URINE No comment entered. Ordering Provider: WES GARCIA Report Released Date/Time: May 20, 2024 08:32 AM Reporting Lab: [facility] [facility] [id number] Performing Lab: [facility] #1 [facility] [id number] URINE COLOR Light-Yellow Yellow U.BILIRUBIN Negative mg/dL Negative U.PH 7.0 5.0-8.0 APPEARANCE Clear Clear U.NITRITE Negative mg/dL Negative URN.GLUCOSE Normal mg/dL Negative URN.PROTEIN Negative mg/dL URN.UROBILINOGEN 2 mg/dL H Normal URN.BLOOD Negative mg/dL Negative-Trace URN.KETONES Negative mg/dL Negative-Trac e URN.LEUK.EST. Negative mg/dL Negative-Tr jason URN.SPECIFIC GRAVITY 1.016 May 20, 2024 02:04 PM [facility] COMPREHENSIVE METABOLIC PANEL PLASMA Specimen Type: PLASMA Comment: No hemolysis noted. Ordering Provider: WES GARCIA Report Released Date/Time: May 20, 2024 08:32 AM Reporting Lab: [facility] #1 [facility] [id number] Performing Lab: [facility] #1 [place] [phone] CREATININE 1.06 mg/dL 0.70-1.30 UREA NITROGEN 13.3 [...] 76.92 >60 May 20, 2024 02:04 PM [facility] CBC BLOOD Specimen Type: BLOOD No comment entered. Ordering Provider: WES GARCIA Report Released Date/Time: May 20, 2024 08:32 AM Reporting Lab: [facility]1 [facility] [id number] Performing Lab: [facility] #1 [facility] [phone] WBC 10.1 10*3/uL 3.6-11.2 RBC 4.67 10*6/uL [...] 09:47 /loreta/ JOSE BARNES MD CLINICAL CARDIAC CANE SPLICER --- Original Document --- 05/11/24 CARDIOLOGY DEVICE SURVEILLANCE NOTE STL: SEE VISTA IMAGING FOR FUL PDF PATIENT: ELI RUELAS SSN: [id number] : 1955 DATE: 05/09/2024 6:54:10 AM SUMMARY: Alert Transmission Arrhythmia: - AFL/AF episodes noted, longest episode 6 minutes to < 24 hours 2 Symptom (Patient Activated) Episode(s) without detected episode. Initial remote transmission. Remote programming change made per [facility] protocol. PROPOSED CHANGES WERE SENT IN [...] 16:29 /loreta/ JOSE BARNES MD CLINICAL CARDIAC CANE SPLICER 05/13/2024 ADDENDUM STATUS: COMPLETED PATIENT: ELI RUELAS SSN: [id number] : 1955 DATE: 05/13/2024 12:14:18 AM SUMMARY: Alert Transmission Arrhythmia: - AFL/AF episodes noted, longest episode 6 minutes to < 24 hours 2 AF/AFL episodes, 10 minutes each. CHELSIE Apprised 05-12-2024 11:10 PM AF 10:25 78 bpm avg. Steady 05-12-2024 10:53 PM AF 10:04 81 bpm avg. SteadY /es/ Verna M Pleimann,RN,BSN Registered Nurse Signed: 05/13/2024 12:11 05/13/2024 ADDENDUM STATUS: COMPLETED Device Interrogation reviewed. Battery is adequate, lead function stable. Arrhythmias are as documented. Will continue device follow up through remote transmissions and/or routine device clinic appointments. All clinically important information has been communicated to the patient by myself, device clinic, the patient's metal precision machine assembler, or the patient's PCP. AF confirmed, and patient has a history of retinal emboli. Will alert Paul Zimmerman, and PCP Ravinder to start anticoagulation. /loreta/ JOSE BARNES MD CLINICAL CARDIAC CANE SPLICER Signed: 05/13/2024 16:28 Receipt Acknowledged By: 05/14/2024 14:12 /argelia STARR MD CANCER REGISTRY COORDINATOR 05/14/2024 09:23 /argelia [facility] ADULT NURSE PRACTITIONER 05/13/2024 20:48 /argelia MILLER MD,[facility] STAFF SURGERY SPECIALIST 05/14/2024 ADDENDUM STATUS: COMPLETED Dr. Miller/José Miguel ======> * PCP will defer to cardiology to initate antcoagulation or a DOAC for pt. /argelia [facility] ADULT NURSE PRACTITIONER Signed: 05/14/2024 09:24 Receipt Acknowledged By: 05/14/2024 14:11 /argelia STARR MD CANCER REGISTRY COORDINATOR 05/14/2024 10:26 /argelia MILLER MD,[facility] STAFF SURGERY SPECIALIST 05/14/2024 ADDENDUM STATUS: COMPLETED I agree with Dr. Barnes that anticoagulation is recommended. Will ask PCP to initiate anticoagulation with DOAC such as apixaban 5 mg bid. Thank you! /argelia MILLER MD,[facility] STAFF SURGERY SPECIALIST Signed: 05/14/2024 10:29 Receipt Acknowledged By: 05/14/2024 12:52 /argelia [facility] ADULT NURSE PRACTITIONER 05/15/2024 ADDENDUM STATUS: COMPLETED [facility]: Alert Transmission Arrhythmia: - AFL/AF episodes noted, longest episode 6 minutes to < 24 hours Symptom (Patient Activated) Episode(s) without detected episode; AFL. SEE VISTA FOR PDF /loreta/ VANNESSA ALCANTAR,RN,CEPS REGISTERED NURSE Signed: 05/15/2024 10:04 Receipt Acknowledged By: 05/15/2024 11:03 /loreta/ JOSE BARNES MD CLINICAL CARDIAC CANE SPLICER 05/18/2024 ADDENDUM STATUS: COMPLETED RECE[facility] ALERT FROM [facility]: Alert Transmission Arrhythmia: - AFL/AF episodes noted, longest episode 6 minutes to < 24 hours SEE VISTA FOR PDF AF EPISODES MORE C/W AFLUTTER W/ VARIABLE BLOCK AND SOME AF EPISODES ARE SR WITH FREQ APC. /loreta/ VANNESSA ALCANTAR,RN,CEPS REGISTERED NURSE Signed: 05/18/2024 14:33 Receipt Acknowledged By: 05/18/2024 16:44 /loreta/ JOSE BARNES MD CLINICAL CARDIAC CANE SPLICER 05/22/2024 ADDENDUM STATUS: COMPLETED PATIENT: ELI RUELAS [...] AFLUTTER /PVC'S ALSO ON APIX[employer] /loreta/ Verna Erickson,RN,BSN Registered Nurse Signed: 05/22/2024 13:11 Receipt Acknowledged By: 05/22/2024 15:25 /loreta/ JOSE BARNES MD CLINICAL CARDIAC CANE SPLICER 05/25/2024 ADDENDUM STATUS: UNSIGNED You may not VIEW this UNSIGNED Addendum. RAMILA ERICKSON [facility] May 22, 2024 01:04 PM ADDENDUM: [...] 15:25 /es/ JOSE BARNES MD CLINICAL CARDIAC CANE SPLICER --- Original Document --- 05/11/24 CARDIOLOGY DEVICE SURVEILLANCE NOTE STL: SEE VISTA IMAGING FOR FUL PDF PATIENT: ELI RUELAS SSN: [id number] : 1955 DATE: 05/09/2024 6:54:10 AM SUMMARY: Alert Transmission Arrhythmia: - AFL/AF episodes noted, longest episode 6 minutes to < 24 hours 2 Symptom (Patient Activated) Episode(s) without detected episode. Initial remote transmission. [facility] PROPOSED CHANGES WERE SENT IN AN [...] 16:29 /loreta/ JOSE BARNES MD CLINICAL CARDIAC CANE SPLICER 05/13/2024 ADDENDUM STATUS: COMPLETED PATIENT: ELI RUELAS [...] patient by myself, device clinic, the patient's metal precision machine assembler, or the patient's PCP. AF confirmed, and patient has a history of retinal emboli. Will alert Paul Zimmerman, and PCP Ravinder to start anticoagulation. /argelia BARNES MD CLINICAL CARDIAC CANE SPLICER Signed: 05/13/2024 16:28 Receipt Acknowledged By: 05/14/2024 14:12 /argelia STARR MD CANCER REGISTRY COORDINATOR 05/14/2024 09:23 /argelia [facility] ADULT NURSE PRACTITIONER 05/13/2024 20:48 /argelia MILLER MD,[facility] STAFF SURGERY SPECIALIST 05/14/2024 ADDENDUM STATUS: COMPLETED Dr. Miller/José Miguel ======> * PCP will defer to cardiology to initate antcoagulation or a DOAC for pt. /argelia [facility] ADULT NURSE PRACTITIONER Signed: 05/14/2024 09:24 Receipt Acknowledged By: 05/14/2024 14:11 /argelia STARR MD CANCER REGISTRY COORDINATOR 05/14/2024 10:26 /loreta/ JACOBO MILLER MD,[facility] STAFF SURGERY SPECIALIST 05/14/2024 ADDENDUM STATUS: COMPLETED I agree with Dr. Barnes that anticoagulation is recommended. Will ask PCP to initiate anticoagulation with DOAC such as apixaban 5 mg bid. Thank you! /argelia MILLER MD,[facility] STAFF SURGERY SPECIALIST Signed: 05/14/2024 10:29 Receipt Acknowledged By: 05/14/2024 12:52 /argelia [facility] ADULT NURSE PRACTITIONER 05/15/2024 ADDENDUM STATUS: COMPLETED AD[facility]AL ALERT FROM [facility]: Alert Transmission Arrhythmia: - AFL/AF episodes noted, longest episode 6 minutes to < 24 hours Symptom (Patient Activated) Episode(s) without detected episode; AFL. SEE VISTA FOR PDF /loreta/ VANNESSA ALCANTAR,RN,CEPS REGISTERED NURSE Signed: 05/15/2024 10:04 Receipt Acknowledged By: 05/15/2024 11:03 /loreta/ JOSE BARNES MD CLINICAL CARDIAC CANE SPLICER 05/18/2024 ADDENDUM STATUS: COMPLETED RECEIVED ALERT FROM [...] 16:44 /loreta/ JOSE BARNES MD CLINICAL CARDIAC CANE SPLICER RAMILA ER[facility]SON [facility] May 18, 2024 02:29 PM ADDENDUM: LOCAL TITLE: Addendum STANDARD TITLE: ADDENDUM DATE OF NOTE: MAY 18, 2024@14:29:11 ENTRY DATE: MAY 18, 2024@14:29:12 AUTHOR: VANNESSA BRUNO EXP COSIGNER: URGENCY: STATUS: COMPLETED RECE[facility] ALERT FROM [facility]: Alert Transmission Arrhythmia: - AFL/AF episodes noted, longest episode 6 minutes to < 24 hours SEE VISTA FOR PDF AF EPISODES MORE C/W AFLUTTER W/ VARIABLE BLOCK AND SOME AF EPISODES ARE SR WITH FREQ APC. /loreta/ VANNESSA TURNERN,RN,CEPS REGISTERED NURSE Signed: 05/18/2024 14:33 Receipt Acknowledged By: 05/18/2024 16:44 /loreta/ JOSE BARNES MD CLINICAL CARDIAC CANE SPLICER --- Original Document --- 05/11/24 CARDIOLOGY DEVICE SURVEILLANCE NOTE STL: SEE VISTA IMAGING FOR FUL PDF PATIENT: ELI RUELAS SSN: [id number] : 1955 DATE: 05/09/2024 6:54:10 AM SUMMARY: Alert Transmission Arrhythmia: - AFL/AF episodes noted, longest episode 6 minutes to < 24 hours 2 Symptom (Patient Activated) Episode(s) without detected episode. Initial remote transmission. [facility] programming [facility]. PROPOSED CHANGES WERE SENT IN AN EMAIL TO DR PEDRO LUIS HOLGUIN Apprised AF BURDEN; 1% EPISODES: 05-08-2024 02:30 PM AF 13:27 76 bpm avg. Steady 05-08-2024 01:47 PM AF 22:54 89 bpm avg. Steady 05-07-2024 11:33 AM Symptom - - Steady 12-05-2024 11:32 AM Symptom - - Unsteady 05-06-2024 [...] VET IS NOT ON AC. /loreta/ Verna EricksonRN,BSN Registered Nurse Signed: 05/12/2024 15:12 Receipt Acknowledged By: 05/13/2024 16:29 /argelia BARNES MD CLINICAL CARDIAC CANE SPLICER 05/13/2024 ADDENDUM STATUS: COMPLETED PATIENT: ELI RUELAS [...] patient by myself, device clinic, the patient's metal precision machine assembler, or the patient's PCP. AF confirmed, and patient has a history of retinal emboli. Will alert Paul Zimmerman, and PCP Ravinder to start anticoagulation. /loreta/ JOSE BARNES MD CLINICAL CARDIAC CANE SPLICER Signed: 05/13/2024 16:28 Receipt Acknowledged By: 05/14/2024 14:12 /argelia STARR MD CANCER REGISTRY COORDINATOR 05/14/2024 09:23 /argelia [facility] ADULT NURSE PRACTITIONER 05/13/2024 20:48 /argelia MILLER MD,[facility] STAFF SURGERY SPECIALIST 05/14/2024 ADDENDUM STATUS: COMPLETED Dr. Llamas ======> * PCP will defer to cardiology to initate antcoagulation or a DOAC for pt. /loreta/ WES [facility] ADULT NURSE PRACTITIONER Signed: 05/14/2024 09:24 Receipt Acknowledged By: 05/14/2024 14:11 /argelia STARR MD CANCER REGISTRY COORDINATOR 05/14/2024 10:26 /loreta/ JACOBO MILLER MD[facility] STAFF SURGERY SPECIALIST 05/14/2024 ADDENDUM STATUS: COMPLETED I agree with Dr. Barnes that anticoagulation is recommended. Will ask PCP to initiate anticoagulation with DOAC such as apixaban 5 mg bid. Thank you! /argelia MILLER MD,[facility] STAFF SURGERY SPECIALIST Signed: 05/14/2024 10:29 Receipt Acknowledged By: 05/14/2024 12:52 /argelia [facility] ADULT NURSE PRACTITIONER 05/15/2024 ADDENDUM STATUS: COMPLETED AD[facility] ALERT FROM [facility]: Alert Transmission Arrhythmia: - AFL/AF episodes noted, longest episode 6 minutes to < 24 hours Symptom (Patient Activated) Episode(s) without detected episode; AFL. SEE VISTA FOR PDF /loreta/ VANNESSA BRUNO BSN,RN,CEPS REGISTERED NURSE Signed: 05/15/2024 10:04 Receipt Acknowledged By: 05/15/2024 11:03 /loreta/ JOSE BARNES MD CLINICAL CARDIAC CANE SPLICER VANNESSA BRUNO [facility] May 15, 2024 09:58 AM ADDENDUM: LOCAL TITLE: Addendum STANDARD TITLE: ADDENDUM DATE OF NOTE: MAY 15, 2024@09:58:08 ENTRY DATE: MAY 15, 2024@09:58:09 AUTHOR: AVNNESSA BRUNO EXP COSIGNER: URGENCY: STATUS: COMPLETED ADDITIONAL ALERT FROM [facility]: Alert Transmission Arrhythmia: - AFL/AF episodes noted, longest episode 6 minutes to < 24 hours Symptom (Patient Activated) Episode(s) without detected episode; AFL. SEE VISTA FOR PDF /es/ VANNESSA TURNERN,RN,CEPS REGISTERED NURSE Signed: 05/15/2024 10:04 Receipt Acknowledged By: 05/15/2024 11:03 /es/ JOSE BARNES MD CLINICAL CARDIAC CANE SPLICER --- Original Document --- 05/11/24 CARDIOLOGY DEVICE SURVEILLANCE NOTE STL: SEE VISTA IMAGING FOR FUL PDF PATIENT: ELI RUELAS SSN: [id number] : 1955 DATE: 05/09/2024 6:54:10 AM SUMMARY: Alert Transmission Arrhythmia: - AFL/AF episodes noted, longest episode 6 minutes to < 24 hours 2 Symptom (Patient Activated) Episode(s) without detected episode. Initial remote transmission. Remote programming change made per [facility] protocol. PROPOSED CHANGES WERE SENT IN [...] NOTED : VET IS NOT ON AC. /argelia Erickson,RN,BSN Registered Nurse Signed: 05/12/2024 15:12 Receipt Acknowledged By: 05/13/2024 16:29 /argelia BARNES MD CLINICAL CARDIAC CANE SPLICER 05/13/2024 ADDENDUM STATUS: COMPLETED PATIENT: ELI RUELAS [...] patient by myself, device clinic, the patient's metal precision machine assembler, or the patient's PCP. AF confirmed, and patient has a history of retinal emboli. Will alert Paul Zimmerman, and PCP Ravinder to start anticoagulation. /argelia BARNES MD CLINICAL CARDIAC CANE SPLICER Signed: 05/13/2024 16:28 Receipt Acknowledged By: 05/14/2024 14:12 /loreta/ NORIS STARR MD CANCER REGISTRY COORDINATOR 05/14/2024 09:23 /argelia [facility] ADULT NURSE PRACTITIONER 05/13/2024 20:48 /loreta/ JACOBO MILLER MD[facility] STAFF SURGERY SPECIALIST 05/14/2024 ADDENDUM STATUS: COMPLETED Dr. Miller/José Miguel ======> * PCP will defer to cardiology to initate antcoagulation or a DOAC for pt. /argelia [facility] ADULT NURSE PRACTITIONER Signed: 05/14/2024 09:24 Receipt Acknowledged By: 05/14/2024 14:11 /loreta/ NORIS STARR MD CANCER REGISTRY COORDINATOR 05/14/2024 10:26 /loreta/ JACOBO MILLER MD[facility] STAFF SURGERY SPECIALIST 05/14/2024 ADDENDUM STATUS: COMPLETED I agree with Dr. Barnes that anticoagulation is recommended. Will ask PCP to initiate anticoagulation with DOAC such as apixaban 5 mg bid. Thank you! /argelia MILLER MD,[facility] STAFF SURGERY SPECIALIST Signed: 05/14/2024 10:29 Receipt Acknowledged By: 05/14/2024 12:52 /loreta/ WES [facility] ADULT NURSE PRACTITIONER VANNESSA BRUNO [facility] May 14, 2024 10:26 AM ADDENDUM: LOCAL TITLE: Addendum STANDARD TITLE: ADDENDUM DATE OF NOTE: MAY 14, 2024@10:26:55 ENTRY DATE: MAY 14, 2024@10:26:57 AUTHOR: JACOBO MILLER EXP COSIGNER: URGENCY: STATUS: COMPLETED I agree with Dr. Barnes that anticoagulation is recommended. Will ask PCP to initiate anticoagulation with DOAC such as apixaban 5 mg bid. Thank you! /argelia MILLER MD,[facility] STAFF SURGERY SPECIALIST Signed: 05/14/2024 10:29 Receipt Acknowledged By: 05/14/2024 12:52 /argelia [facility] ADULT NURSE PRACTITIONER --- Original Document --- 05/11/24 CARDIOLOGY DEVICE SURVEILLANCE NOTE STL: SEE VISTA IMAGING FOR FUL PDF PATIENT: ELI RUELAS SSN: [id number] : 1955 DATE: 05/09/2024 6:54:10 AM SUMMARY: Alert Transmission Arrhythmia: - AFL/AF episodes noted, longest episode 6 minutes to < 24 hours 2 Symptom (Patient Activated) Episode(s) without detected episode. Initial remote transmission. Remote programming change made per [facility] protocol. PROPOSED CHANGES WERE SENT IN [...] 16:29 /loreta/ JOSE BARNES MD CLINICAL CARDIAC CANE SPLICER 05/13/2024 ADDENDUM STATUS: COMPLETED PATIENT: ELI RUELAS [...] patient by myself, device clinic, the patient's metal precision machine assembler, or the patient's PCP. AF confirmed, and patient has a history of retinal emboli. Will alert Paul Zimmerman, and PCP Ravinder to start anticoagulation. /loreta/ JOSE BARNES MD CLINICAL CARDIAC CANE SPLICER Signed: 05/13/2024 16:28 Receipt Acknowledged By: * AWAITING SIGNATURE * NORIS STARR 05/14/2024 09:23 /loreta/ WES [facility] ADULT NURSE PRACTITIONER 05/13/2024 20:48 /loreta/ JACOBO MILLER [facility] STAFF SURGERY SPECIALIST 05/14/2024 ADDENDUM STATUS: COMPLETED Dr. Llamas ======> * PCP will defer to cardiology to initate antcoagulation or a DOAC for pt. /argelia [facility] ADULT NURSE PRACTITIONER Signed: 05/14/2024 09:24 Receipt Acknowledged By: * AWAITING SIGNATURE * NORIS STARR 05/14/2024 10:26 /loreta/ JACOBO MILLER [facility] STAFF SURGERY SPECIALIST JACOBO MILLER [facility] May 14, 2024 09:23 AM ADDENDUM: LOCAL TITLE: Addendum STANDARD TITLE: ADDENDUM DATE OF NOTE: MAY 14, 2024@09:23:38 ENTRY DATE: MAY 14, 2024@09:23:39 AUTHOR: WES GARCIA EXP COSIGNER: URGENCY: STATUS: COMPLETED Dr. Llamas ======> * PCP will defer to cardiology to initate antcoagulation or a DOAC for pt. /argelia [facility] ADULT NURSE PRACTITIONER Signed: 05/14/2024 09:24 Receipt Acknowledged By: 05/14/2024 14:11 /argelia STARR MD CANCER REGISTRY COORDINATOR 05/14/2024 10:26 /loreta/ JACOBO MILLER [facility] STAFF SURGERY SPECIALIST --- Original Document --- 05/11/24 CARDIOLOGY DEVICE SURVEILLANCE NOTE STL: SEE VISTA IMAGING FOR FUL PDF PATIENT: ELI RUELAS SSN: [id number] : 1955 DATE: 05/09/2024 6:54:10 AM SUMMARY: Alert Transmission Arrhythmia: - AFL/AF episodes noted, longest episode 6 minutes to < 24 hours 2 Symptom (Patient Activated) Episode(s) without detected episode. Initial remote transmission. Remote programming change made per [facility] protocol. PROPOSED CHANGES WERE SENT IN [...] 16:29 /loreta/ JOSE BARNES MD CLINICAL CARDIAC CANE SPLICER 05/13/2024 ADDENDUM STATUS: COMPLETED PATIENT: ELI RUELAS [...] patient by myself, device clinic, the patient's metal precision machine assembler, or the patient's PCP. AF confirmed, and patient has a history of retinal emboli. Will alert Paul Zimmerman, and PCP Ravinder to start anticoagulation. /loreta/ JOSE BARNES MD CLINICAL CARDIAC CANE SPLICER Signed: 05/13/2024 16:28 Receipt Acknowledged By: * AWAITING SIGNATURE * NORIS STARR 05/14/2024 09:23 /argelia [facility] ADULT NURSE PRACTITIONER 05/13/2024 20:48 /loreta/ JACOBO MILLER [facility] STAFF SURGERY SPECIALIST 05/14/2024 ADDENDUM STATUS: COMPLETED I agree with Dr. Barnes that anticoagulation is recommended. Will ask PCP to initiate anticoagulation with DOAC such as apixaban 5 mg bid. Thank you! /argelia MILLER MD[facility] STAFF SURGERY SPECIALIST Signed: 05/14/2024 10:29 Receipt Acknowledged By: 05/14/2024 12:52 /argelia [facility] ADULT NURSE PRACTITIONER [facility] May 13, 2024 04:26 PM ADDENDUM: [...] patient by myself, device clinic, the patient's metal precision machine assembler, or the patient's PCP. AF confirmed, and patient has a history of retinal emboli. Will alert Paul Zimmerman, and PCP Ravinder to start anticoagulation. /es/ JOSE BARNES MD CLINICAL CARDIAC CANE SPLICER Signed: 05/13/2024 16:28 Receipt Acknowledged By: 05/14/2024 14:12 /es/ NORIS STARR MD CANCER REGISTRY COORDINATOR 05/14/2024 09:23 /es/ WES [facility] N[facility] PRACTITION[facility] 05/13/2024 20:48 /es/ JACOBO MILLER [facility] STAFF SURGERY SPECIALIST --- Original Document --- 05/11/24 CARDIOLOGY DEVICE SURVEILLANCE NOTE STL: SEE VISTA IMAGING FOR FUL PDF PATIENT: ELI RUELAS SSN: [id number] : 1955 DATE: 05/09/2024 6:54:10 AM SUMMARY: Alert Transmission Arrhythmia: - AFL/AF episodes noted, longest episode 6 minutes to < 24 hours 2 Symptom (Patient Activated) Episode(s) without detected episode. Initial remote transmission. Remote programming change made per [facility] protocol. PROPOSED CHANGES WERE SENT IN [...] 16:29 /loreta/ JOSE BARNES MD CLINICAL CARDIAC CANE SPLICER 05/13/2024 ADDENDUM STATUS: COMPLETED PATIENT: ELI RUELAS [...] a DOAC for pt. /loreta/ WES [facility] ADULT NURSE PRACTITIONER Signed: 05/14/2024 09:24 Receipt Acknowledged By: 05/14/2024 14:11 /loreta/ NORIS STARR MD CANCER REGISTRY COORDINATOR 05/14/2024 10:26 /loreta/ JACOBO MILLER MD,[facility] STAFF SURGERY SPECIALIST 05/14/2024 ADDENDUM STATUS: COMPLETED I agree with Dr. Barnes that anticoagulation is recommended. Will ask PCP to initiate anticoagulation with DOAC such as apixaban 5 mg bid. Thank you! /loreta/ JACOBO MILLER MD,[facility] STAFF SURGERY SPECIALIST Signed: 05/14/2024 10:29 Receipt Acknowledged By: 05/14/2024 12:52 /loreta/ WES [facility] ADULT NURSE PRACTITIONER JOSE BARNES GASTON PRAJAPATI [facility] May 11, 2024 03:16 PM INTERVENTIONAL CARDIOLOGY NOTE: LOCAL TITLE: CARDIOLOGY DEVICE SURVEILLANCE NOTE STL STANDARD TITLE: INTERVENTIONAL CARDIOLOGY NOTE DATE OF NOTE: MAY 11, 2024@15:16 ENTRY DATE: MAY 11, 2024@15:17 AUTHOR: VERNA ERICKSON EXP COSIGNER: URGENCY: STATUS: COMPLETED CARDIOLOGY DEVICE SURVEILLANCE NOTE STL Has ADDENDA SEE VISTA IMAGING FOR FUL PDF PATIENT: ELI RUELAS SSN: [id number] : 1955 DATE: 05/09/2024 6:54:10 AM SUMMARY: Alert Transmission Arrhythmia: - AFL/AF episodes noted, longest episode 6 minutes to < 24 hours 2 Symptom (Patient Activated) Episode(s) without detected episode. Initial remote transmission. Remote programming change made per [facility] protocol. PROPOSED CHANGES WERE SENT IN [...] 16:29 /loreta/ JOSE BARNES MD CLINICAL CARDIAC CANE SPLICER 05/13/2024 ADDENDUM STATUS: COMPLETED PATIENT: ELI RUELAS [...] patient by myself, device clinic, the patient's metal precision machine assembler, or the patient's PCP. AF confirmed, and patient has a history of retinal emboli. Will alert Paul Zimmerman, and PCP Ravinder to start anticoagulation. /argelia BARNES MD CLINICAL CARDIAC CANE SPLICER Signed: 05/13/2024 16:28 Receipt Acknowledged By: 05/14/2024 14:12 /argelia STARR MD CANCER REGISTRY COORDINATOR 05/14/2024 09:23 /argelia [facility] ADULT NURSE PRACTITIONER 05/13/2024 20:48 /loreta/ JACOBO MILLER MD,[facility] STAFF SURGERY SPECIALIST 05/14/2024 ADDENDUM STATUS: COMPLETED Dr. Miller/José Miguel ======> * PCP will defer to cardiology to initate antcoagulation or a DOAC for pt. /argelia [facility] ADULT NURSE PRACTITIONER Signed: 05/14/2024 09:24 Receipt Acknowledged By: 05/14/2024 14:11 /argelia STARR MD CANCER REGISTRY COORDINATOR 05/14/2024 10:26 /loreta/ JACOBO MILLER MD,[facility] STAFF SURGERY SPECIALIST 05/14/2024 ADDENDUM STATUS: COMPLETED I agree with Dr. Barnes that anticoagulation is recommended. Will ask PCP to initiate anticoagulation with DOAC such as apixaban 5 mg bid. Thank you! /argelia MILLER MD,[facility] STAFF SURGERY SPECIALIST Signed: 05/14/2024 10:29 Receipt Acknowledged By: 05/14/2024 12:52 /loreta/ WES [facility] ADULT NURSE PRACTITIONER 05/15/2024 ADDENDUM STATUS: COMPLETED ADDITIONAL ALERT FROM NE SURVEILLANCE STATING: Alert Transmission Arrhythmia: - AFL/AF episodes noted, longest episode 6 minutes to < 24 hours Symptom (Patient Activated) Episode(s) without detected episode; AFL. SEE VISTA FOR PDF /loreta/ VANNESSA ALCANTAR,RN,CEPS REGISTERED NURSE Signed: 05/15/2024 10:04 Receipt Acknowledged By: 05/15/2024 11:03 /loreta/ JOSE BARNES MD CLINICAL CARDIAC CANE SPLICER 05/18/2024 ADDENDUM STATUS: COMPLETED RECEIVED ALERT FROM NE SURVEILLANCE STATING: Alert Transmission Arrhythmia: - AFL/AF episodes noted, longest episode 6 minutes to < 24 hours SEE VISTA FOR PDF AF EPISODES MORE C/W AFLUTTER W/ VARIABLE BLOCK AND SOME AF EPISODES ARE SR WITH FREQ APC. /argelia ALCANTAR,RN,CEPS REGISTERED NURSE Signed: 05/18/2024 14:33 Receipt Acknowledged By: 05/18/2024 16:44 /loreta/ JOSE BARNES MD CLINICAL CARDIAC CANE SPLICER 05/22/2024 ADDENDUM STATUS: COMPLETED PATIENT: ELI RUELAS [...] 15:25 /loreta/ JOSE BARNES MD CLINICAL CARDIAC CANE SPLICER 05/25/2024 ADDENDUM STATUS: COMPLETED PATIENT: ELI RUELAS [...] AF alert to stay on /es/ Verna EricksonRN,BSN Registered Nurse Signed: 05/25/2024 09:15 Receipt Acknowledged By: 05/25/2024 09:47 /loreta/ JOSE BARNES MD CLINICAL CARDIAC CANE SPLICER 05/25/2024 ADDENDUM STATUS: COMPLETED on apixiban, ok for alert to stay off /es/ JOSE BARNES MD CLINICAL CARDIAC CANE SPLICER Signed: 05/25/2024 09:48 RAMILA ERICKSON [facility]
--- OUTSIDE RECORDS SUMMARY | 2024-09-22 15:07 | XMS_ITS ---
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 [place] Organization [facility] [place] Address [address] [place] [address] Care Team Providers Care Supervisor Commissary Production Name Role Phone JESSICA KAY Primary Care [...] ACTIV E [place] HIGH Jun 03, 2013 [id number] [phone] JOSEPHINE DiamondROSITA SPOUSE MEDICARE (WNR) MEDICARE (M) PART B Jul 04, 2016 PART B [id number] JOSEPHINE DiamondELI PATIENT MEDICARE (WNR) MEDICARE (M) PART A Jul 04, 2016 PART A [id number] JOSEPHINE Diamond,ELI PATIENT MEDICARE (WNR) MEDICARE (M) PART A Jul 04, 2016 PART A [id number] RICHARDSO N,ELI PATIENT MEDICARE (WNR) MEDICARE (M) PART B Jul 04, 2016 PART B [id number] EMMASO N,ELI PATIENT MEDICARE (WNR) MEDICARE (M) PART A Jul 04, 2016 PART A [id number] EMMASO N,ELI PATIENT MEDICARE (WNR) MEDICARE (M) PART B Jul 04, 2016 PART B [id number] [phone] RICHARDSO N,ELI PATIENT MEDICARE (WNR) MEDICARE (M) PART A Jul 04, 2016 PART A [id number] [phone] EMMASO N,ELI PATIENT MEDICARE (WNR) MEDICARE (M) PART B Jul 04, 2016 PART B [id number] EMMASO N,ELI PATIENT PRIME THERAPEUTI CS RX PRESCRIPT ION RX PLAN Jun 03, 2013 [id number] [phone] EMMASO N,ELI PATIENT Selected Encounter This section includes the information on record at [place] for the Encounter. Date/Time Encounter Type Encounter Description Reason Pro vider Source Sep 22, 2024 12:48 PM Outpatient Encounter ADMIN PAT ACTIVTIES (MASNONCT) IHE Encounter Template Text not used by [place] Plan of Treatment: Future Appointments (+ 6 [...] 2025 02:00 PM AMBULATORY - MEDICINE [facility] 2025 01:00 PM AMBULATORY - MEDICINE [facility] Active, Pending, and Scheduled Orders This section includes a listing of several types of active, pending, and scheduled orders, including clinic medications orders, diagnostic test orders, procedure orders and consult orders; where the start date of the order is 45 days before the date of the Encounter or 45 days after the date of theEncounter. The data comes from all [place] treatment facilities. Test Date/Time Test Type Test Details Facility Name Sep 14, 2024 11:02 AM Consult Order CANCER TESSA VIVORSHIP CONSULT OUTPT STL Cons Merchandise [employer] [facility] Lab Results: +/- 30 days of [...] Type Comment Sep 01, 2024 12:48 PM [facility] BASIC METABOLIC PANEL PLASMA Specimen Type: PLASMA Comment: No hemolysis noted. Ordering Provider: PASTOR ROBERTSON Report Released Date/Time: Sep 01, 2024 12:22 PM Reporting Lab: [address] [address] Performing Lab: [address] [address] CREATININE 1.28 mg/dL 0.7-1.3 UREA NITROGEN 21.6 mg/dL 9.0-25.0 GLUCOSE 148 mg/dL H 72-99 SODIUM 141 meq/L 136-145 POTASSIUM 5.1 meq/L H 3.5-5 CHLORIDE 105 meq/L 98-107 CARBON DIOXIDE 30 meq/L 22-31 CALCIUM 9.5 mg/dL 8.4-10.4 EGFR (CKD-EPI 2020) 61.3 >60 Aug 28, 2024 02:18 PM [facility] BRAIN NATRIURETIC PEPTIDE PLASMA Specimen Type : PLASMA No comment entered. Ordering Provider: PASTOR ROBERTSON Report Released Date/Time: Aug 28, 2024 01:59 PM Reporting Lab: [address] [phone] Performing Lab: [address] [address] BRAIN NATRIURETIC PEPTIDE 356.1 pg/mL H 0- 100 Aug 28, 2024 02:18 PM [facility] BASIC METABOLIC PANEL PLASMA Specimen Type: PL ASMA Comment: No hemolysis noted. Ordering Provider: PASTOR ROBERTSON Report Released Date/Time: Aug 28, 2024 01:59 PM Reporting Lab: [facility] [address] [facility] [address] Performing Lab: [address] [address] CREATININE 1.09 mg/dL 0.7-1.3 UREA NITROGEN 16.4 mg/dL 9.0-25.0 GLUCOSE 110 mg/dL H 72-99 SODIUM 139 meq/L 136-145 POTASSIUM 4.7 meq/L 3.5-5 CHLORIDE 105 meq/L 98-107 CARBON DIOXIDE 27 meq/L 22-31 CALCIUM 9.1 mg/dL 8.4-10.4 EGFR (CKD-EPI 2020) 74.4 >60 Aug 28, 2024 02:18 PM [facility] CBC BLOOD Specimen Type: BLOOD No comment entered. Ordering Provider: PASTOR ROBERTSON Report Released Date/Time: Aug 28, 2024 01:59 PM Reporting Lab: [facility] [address] [place] [phone] Performing Lab: [address] [address] WBC 11.9 10*3/uL H 3.6-11.2 RBC 4.47 [...] CT THORAX, DIAGNOS TIC, W/CONTRAST: JESSENIAELI JOSY [id number] -1955 M Exm Date: AUG 28, 2024@11:50 Req Phys: ALEM LUTHER Loc: [place]-PULMONARY INTERVENTIONAL (R Img Loc: [place]-CT IMAGING [place] Service: [facility], [address] [address] (Case [id number] COMPLETE) CT THORAX, DIAGNOSTIC, W/CONTRAS(CT Detailed) CPT:28535 Contrast Media : Non-ionic Iodinated Reason for Study: Surveillance post resection of jennifer ca 2020 Clinical History: Responsible Attending: Shante Attending Contact Number: [phone] Resident Contact Number: Allergies listed in CPRS chart: CHANTIX Creatinine: CREATININE 1.16 mg/dL 02/15/2023 11:44 /eGFR: STL EGFR (within one year). CREATININE 1.16 mg/dL (02/15/23 11:44) Wt: 264 lb [119.75 kg] (08/30/2023 14:51) History of: Renal failure, chronic or acute renal disease: NO Report Status: Verified Date Reported: AUG 30, 2024 Date Verified: AUG 30, 2024 [place] E-Sig:/ES/Oswald Coronado MD Report: INDICATION: Surveillance post [...] abdominal process. Dictated by Dakota Hampton MD (vice president global digital marketing). I, Oswald Coronado, have reviewed the images and report and concur with these findings. Primary Interpreting Staff: Oswald Coronado MD, Radiologist ([place]) Primary Interpreting Resident: Resident ANN MARIE Physician /OSWALD HAMMONDS [facility] Encounter Notes: All associated encounter notes This section contains the clinical notes associated to the Encounter. Date/Time Encounter Note(s) Provider Source Sep 22, 2024 12:48 PM ADMINISTRATIVE NOT E: LOCAL TITLE: CONTACT NOTE STL STANDARD TITLE: ADMINISTRATIVE NOTE DATE OF NOTE: SEP 22, 2024@12:48 ENTRY DATE: SEP 22, 2024@12:48:25 AUTHOR: BISHNU CASTREJON COSIGNER: URGENCY: STATUS: COMPLETED Veterans name and last 4 were used to verify identity Verified Veterans telephone #/Updated telephone number in the system REASON FOR CALL: New onset of symptoms (TRANSFER TO EXT. [id number]) Reason for call: Vet called to report he couldnt breathe, per RNCM TRANSFER TO triage /es/ BISHNU CASTREJON AMSA Signed: 09/22/2024 12:53 Receipt Acknowledged By: 09/22/2024 13:51 /es/ Ofe Brand RN BSN REGISTERED NURSE BISHNU CASTREJON [facility]
--- OUTSIDE RECORDS SUMMARY | 2024-09-22 15:07 | XMS_ITS | Encounter Summary ---
Author Organization [facility] Address [address] [place] [id number] Care Team Providers Care Manager Publishing Name Role Phone Jm Cedillo MD Primary Care Provider [phone] Encounter Details Date Type Department Care Team (Late st Contact Info) Description 08/17/2017 Abstract [facility] CONVERSION [address] [place] [address] , Generic MD Rob Social History Tobacco [...] on filedocumented in this encounter Care Teams Manager Publishing Relationship Specialty Start Date End Date Jm Cedillo MD PCP - General INTERNAL MEDICINE 12/23/18 documented as of this encounter
--- OUTSIDE RECORDS SUMMARY | 2024-09-22 15:07 | XMS_ITS ---
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 [place] [facility] Address [address] [place] [address] Care Team Providers Care Belt Changer Name Role Phone JESSICA KAY Primary Care [...] ACTIV E [place] HIGH Jun 03, 2013 [id number] [phone] JOSEPHINE DiamondROSITA SPOUSE MEDICARE (WNR) MEDICARE (M) PART A Jul 04, 2016 PART A [id number] JOSEPHINE DiamondELI PATIENT MEDICARE (WNR) MEDICARE (M) PART B Jul 04, 2016 PART B [id number] [phone] JOSEPHINE Diamond,ELI PATIENT MEDICARE (WNR) MEDICARE (M) PART B Jul 04, 2016 PART B [id number] [phone] RICHARDSO N,ELI PATIENT MEDICARE (WNR) MEDICARE (M) PART A Jul 04, 2016 PART A [id number] RICHARDSO N,ELI PATIENT MEDICARE (WNR) MEDICARE (M) PART A Jul 04, 2016 PART A [id number] EMMASO N,ELI PATIENT MEDICARE (WNR) MEDICARE (M) PART B Jul 04, 2016 PART B [id number] RICHARDSO N,ELI PATIENT MEDICARE (WNR) MEDICARE (M) PART A Jul 04, 2016 PART A [id number] RICHARDSO N,ELI PATIENT MEDICARE (WNR) MEDICARE (M) PART B Jul 04, 2016 PART B [id number] EMMASO N,ELI PATIENT PRIME THERAPEUTI CS RX PRESCRIPT ION RX PLAN Jun 03, 2013 [id number] [phone] EMMASO N,ELI PATIENT Selected Encounter This section includes the information on record at [place] for the Encounter. Date/Time Encounter Type Encounter Description Reason Provider Source October 22, 2023 10:00 AM OFFICE O/P EST MOD 30 MIN OPTOMETRY ICD-10-CM H34.211 Partial retinal artery occlusion, right eye ELOY DUQUE [facility] Encounter Template Text not used by [place] Assessments - Encounter Diagnoses This section includes the primary and secondary diagnoses documented for the Encounter. Date/Time Primary/Secondary Diagnosis Diagnosis Name Provider Source October 22, 2023 11:34 AM PRIMARY Partial retinal artery occlusion, right eye ELOY DUQUE [facility] October 22, 2023 11:34 AM SECONDARY Age-related nuclear cataract, bilateral ELOY DUQUE [facility] October 22, 2023 11:34 AM SECONDARY Open angle with borderline findings, low risk, bilateral ELOY DUQUE [facility] October 22, 2023 11:34 AM SECONDARY Presbyopia ELOY DUQUE [facility] October 22, 2023 11:34 AM SECONDARY Puckering of macula, bilateral ELOY DUQUE [facility] Plan of Treatment: Future Appointments (+ 6 months) and Future Tests (+/- 45 days) The Plan of Treatment section includes future care activities for the patient from all [place] [facility] This section includes future appointments and future orders which are active, pending or scheduled. Future Appointments This section includes appointments that were scheduled to occur 6 months from the date of the Encounter, up to a maximum of 20 appointments. The data comes from all [place] treatment facilities. Appointment Date/Time Appointment Type Appointme nt Facility Name October 24, 2023 01:30 PM AMBULATORY - MEDICINE [facility] Nov 05, 2023 10:00 AM AMBULATORY - SURGERY [facility] Nov 12, 2023 11:00 AM AMBULATORY - MEDICINE [facility] Nov 21, 2023 01:00 PM AMBULATORY - NONE [facility] Dec 12, 2023 02:00 PM AMBULATORY - NONE [facility] Dec 17, 2023 11:00 AM AMBULATORY - SURGERY [facility] Dec 19, 2023 01:00 PM AMBULATORY - NONE [facility] Dec 19, 2023 03:00 PM AMBULATORY - MEDICINE [facility] Dec 23, 2023 10:00 AM AMBULATORY - MEDICINE [facility] Dec 26, 2023 01:00 PM AMBULATORY - NONE [facility] Dec 31, 2023 02:00 PM AMBULATORY - NONE [facility] Jan 02, 2024 02:00 PM AMBULATORY - NONE [facility] Jan 03, 2024 01:30 PM AMBULATORY - MEDICINE [facility] Jan 09, 2024 01:00 PM AMBULATORY - NONE [facility] Jan 22, 2024 01:15 PM AMBULATORY - MEDICINE [facility] Mar 19, 2024 04:30 PM AMBULATORY - MEDICINE [facility] Apr 08, 2024 02:30 PM AMBULATORY - MEDICINE [facility] Apr 16, 2024 07:30 AM AMBULATORY - MEDICINE [facility] Social History: Smoking Status (Most current) and Tobacco Use (All prior to encounter date) This section includes the most current, and the historical, smoking and tobacco- related health factors from the [place] facility where the Encounter took place. Current Smoking Status This section includes the most current smoking, or tobacco-related health factor, from the [place] facility where the Encounter took place. Date/Time Current Smoking Status Comment Chanell ity Feb 15, 2023 11:00 AM VA-TOBACCO USER EVERY DAY [facility] Tobacco Use History This section includes a history of the smoking, or tobacco-related health factors, that were collected on or before the date of the Encounter. The data comes from the [place] facility where the Encounter took place. Date/Time Smoking Status/Tobacco Use Comment F acility Feb 15, 2023 11:00 AM VA-TOBACCO USE ADVICE [facility] Feb 15, 2023 11:00 AM VA-TOBACCO USE HIGHWAY ADMINISTRATIVE ENGINEER NO [facility] Feb 15, 2023 11:00 AM VA-TOBACCO USE MED NO [facility] Feb 15, 2023 11:00 AM VA-TOBACCO USE WI 30 MIN OF WAKEUP [facility] Feb 15, 2023 11:00 AM VA-TOBACCO USER EVERY DAY [facility] Feb 19, 2022 11:30 AM VA-TOBACCO DOESNT USE WI 30 MIN WAKEUP [facility] Feb 19, 2022 11:30 AM VA-TOBACCO USE 30 YEARS OR MORE [facility] Feb 19, 2022 11:30 AM VA-TOBACCO USE ADVICE [facility] Feb 19, 2022 11:30 AM VA-TOBACCO USE HIGHWAY ADMINISTRATIVE ENGINEER NO [facility] Feb 19, 2022 11:30 AM VA-TOBACCO USE MED NO [facility] Feb 19, 2022 11:30 AM VA-TOBACCO USER EVERY DAY [facility] October 11, 2020 10:30 AM VA-TOBACCO FORMER USER [facility] October 11, 2020 10:30 AM VA-TOBACCO QUIT < 1 YEAR [facility] Encounter Notes: All associated encounter notes This section contains the clinical notes associated to the Encounter. Date/Time Encounter Note(s) Provider Source October 22, 2023 12:10 PM ADDENDUM: LOCAL TITLE: Addendum STANDARD TITLE: ADDENDUM DATE OF NOTE: OCTOBER 22, 2023@12:10:03 ENTRY DATE: OCTOBER 22, 2023@12:10:04 AUTHOR: ABHINAV DUQUE COSIGNER: URGENCY: STATUS: COMPLETED Dear Dr. Harman, [...] eye exam. Regards, /es/ ABHINAV DUQUE OD TRANSPLANT COORDINATOR Signed: 10/22/2023 12:11 Receipt Acknowledged By: 10/22/2023 14:02 /es/ Promise Sun PA-C PA-C for WES GARCIA 10/22/2023 14:15 /es/ HARSHIL TURNERN RN REGISTERED NURSE 11/07/2023 12:36 /es/ NORIS STARR MD YARN COMBER 10/22/2023 12:32 /es/ JACOBO TELLO MD,[facility] STAFF RN CARDIOLOGY --- Original Document --- 10/22/23 OPTOMETRY NOTE: [...] to expect a call, reached out to operating room scheduler in office today while patient was present [...] possible); sooner PRN /loreta/ ABHINAV DUQUE OD TRANSPLANT COORDINATOR Signed: 10/22/2023 12:08 ABHINAV DUQUE [facility] October 22, 2023 12:09 PM OPTOMETRY CONSULT: LOCAL TITLE: OPTOMETRY CONSULT STL STANDARD TITLE: OPTOMETRY CONSULT DATE OF NOTE: OCTOBER 22, 2023@12:09 ENTRY DATE: OCTOBER 22, 2023@12:09:38 AUTHOR: ABHINAV DUQUE EXP COSIGNER: URGENCY: STATUS: COMPLETED Fundus Photos: 10/22/23 - available to view on FORUM /loreta/ ABHINAV DUQUE OD TRANSPLANT COORDINATOR Signed: 10/22/2023 12:09 [facility] [...] superior, no SRF/IRF /loreta/ ABHINAV DUQUE OD TRANSPLANT COORDINATOR Signed: 10/22/2023 12:09 ABHINAV DUQUE [facility] October 22, 2023 07:34 AM OPTOMETRY [...] RD Problem list, medications and allergies reviewed: [facility] Serology for Diabetes GLUCOSE 113 H mg/dL [...] to expect a call, reached out to operating room scheduler in office today while patient was present [...] possible); sooner PRN /loreta/ ABHINAV DUQUE OD TRANSPLANT COORDINATOR Signed: 10/22/2023 12:08 10/22/2023 ADDENDUM STATUS: COMPLETED [...] eye exam. Regards, /loreta/ ABHINAV DUQUE OD TRANSPLANT COORDINATOR Signed: 10/22/2023 12:11 Receipt Acknowledged By: * AWAITING SIGNATURE * WES GARCIA * AWAITING SIGNATURE * HARSHIL CISNEROS * AWAITING SIGNATURE * NORIS STARR * AWAITING SIGNATURE * ELISHA,ABHINAV ROUSSEAU [facility]
--- OUTSIDE RECORDS SUMMARY | 2024-09-22 15:07 | XMS_ITS | Encounter Summary ---
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 ([place]) Organization [facility] Address [address] [place] [address] Care Team Providers Care Instrument Technician Helper Name Role Phone JESSICA KAY Primary [...] ACTIV E [place] HIGH Jun 03, 2013 [id number] JOSEPHINE DiamondROSITA SPOUSE MEDICARE (WNR) MEDICARE (M) PART B Jul 04, 2016 PART B [id number] [phone] JOSEPHINE DiamondELI PATIENT MEDICARE (WNR) MEDICARE (M) PART A Jul 04, 2016 PART A [id number] [phone] JOSEPHINE Diamond,ELI PATIENT MEDICARE (WNR) MEDICARE (M) PART A Jul 04, 2016 PART A [id number] RICHARDSO N,ELI PATIENT MEDICARE (WNR) MEDICARE (M) PART A Jul 04, 2016 PART A [id number] RICHARDSO N,ELI PATIENT MEDICARE (WNR) MEDICARE (M) PART B Jul 04, 2016 PART B [id number] RICHARDSO N,ELI PATIENT MEDICARE (WNR) MEDICARE (M) PART B Jul 04, 2016 PART B [id number] RICHARDSO N,ELI PATIENT MEDICARE (WNR) MEDICARE (M) PART A Jul 04, 2016 PART A [id number] RICHARDSO N,ELI PATIENT MEDICARE (WNR) MEDICARE (M) PART B Jul 04, 2016 PART B [id number] RICHARDSO N,ELI PATIENT PRIME THERAPEUTI CS RX PRESCRIPT ION RX PLAN Jun 03, 2013 [id number] [phone] RICHARDSO N,ELI PATIENT Selected Encounter This section includes the information on record at [place] for the Encounter. Date/Time Encounter Type Encounter Description Reason Provider Source Jan 22, 2024 01:15 PM OFFICE O/P EST SF 10 MIN GI ENDOSCOPY ICD-10-CM K63.5 Polyp of colon ARTUR LEROY Redd Encounter Template Text not used by [place] Assessments - Encounter Diagnoses This section includes the primary and secondary diagnoses documented for the Encounter. Date/Time Primary/Secondary Diagnosis Diagnosis Name Provider Source Jan 29, 2024 04:14 PM PRIMARY Polyp of colon ARIANE HORVATH [facility] Plan of Treatment: Future Appointments [...] 19, 2024 04:30 PM AMBULATORY - MEDICINE [facility] Apr 08, 2024 02:30 PM AMBULATORY - MEDICINE [facility] Apr 16, 2024 07:30 AM [facility] May 20, 2024 01:00 PM [facility] Pathology Reports: +/- 30 days of [...] the Encounter. The data comes from all [facility] facilities. Date/Time Pathology Report Provider Source Jan [...] Performing Laboratory: Surgical Pathology Report Performed By: [facility]# [id number] [address] [address] $FTR - - - - - - - - - - - - - - - - - - - - - - - - - - - - - - - - - - - - - - - - (End of report) ARNOLD MTZ MD [facility] Date Jan 23, 2024 - - - - - - - - - - - - - - - - - - - - - - - - - - - - - - - - - - - - - - - - ELI RUELAS STANDARD FORM 515 ID:[id number] SEX:M :1955 AGE: 68 LOC:GILABA2 PCP: Claudia Campa NP /loreta/ ARNOLD MTZ Pathologist Signed: 01/23/2024 16:11 ARNOLD MTZ [facility] Encounter Notes: All associated encounter notes This section contains the clinical notes associated to the Encounter. Date/Time Encounter Note(s) Provider Source Jan 24, 2024 08:49 AM GASTROENTEROLOGY Zoraida STUBBS: LOCAL TITLE: GI BIOPSY RESULTS LETTER STANDARD TITLE: GASTROENTEROLOGY LETTERS DATE OF NOTE: JAN 24, 2024@08:49 ENTRY DATE: JAN 24, 2024@08:49:38 AUTHOR: ARTUR LEROYIGNER: URGENCY: STATUS: COMPLETED [facility] [address] [place] [address] JAN 24, 2024 ELI RUELAS [address] [facility] [place] [phone] Dear Eli Ruelas, Thank you for completing your colonoscopy recently at [facility]. I am writing to give [...] may do this by logging on the [employer] website at [email or web address]. If you have not already done so, I recommend you visit this web site to set up your account. You will then be able to review this result and all future results. Please call [phone] if you have any questions about this letter. Sincerely, Artur Leroy M.D. [place] ARTUR LEROY [facility] Jan 22, 2024 01:13 PM [...] Signed: 01/22/2024 14:44 /loreta/ Artur Leroy M.D. [place] Cosigned: 01/23/2024 07:06 ARIANE HORVATH [facility]
--- OUTSIDE RECORDS SUMMARY | 2024-09-22 15:07 | XMS_ITS ---
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 ([place] Organization [facility] of [facility] [place] Address [address] [place] [address] Care Team Providers Care Thoracic Surgeon Name Role Phone JESSICA AKY Primary Care Provider UnavailYANIV Gallegos Unavailable Unavailable [...] ACTIV E [place] HIGH Jun 03, 2013 [phone] JOSEPHINE DiamondROSITA SPOUSE MEDICARE (WNR) MEDICARE (M) PART A Jul 04, 2016 PART A [id number] JOSEPHINE DiamondELI PATIENT MEDICARE (WNR) MEDICARE (M) PART B Jul 04, 2016 PART B [id number] [phone] JOSEPHINE DiamondELI PATIENT MEDICARE (WNR) MEDICARE (M) PART A Jul 04, 2016 PART A [id number] RICHARDSO N,ELI PATIENT MEDICARE (WNR) MEDICARE (M) PART A Jul 04, 2016 PART A [id number] RICHARDSO N,ELI PATIENT MEDICARE (WNR) MEDICARE (M) PART B Jul 04, 2016 PART B [id number] RICHARDSO N,ELI PATIENT MEDICARE (WNR) MEDICARE (M) PART B Jul 04, 2016 PART B [id number] RICHARDSO N,ELI PATIENT MEDICARE (WNR) MEDICARE (M) PART A Jul 04, 2016 PART A [id number] RICHARDSO N,ELI PATIENT MEDICARE (WNR) MEDICARE (M) PART B Jul 04, 2016 PART B [id number] RICHARDSO N,ELI PATIENT PRIME THERAPEUTI CS RX PRESCRIPT ION RX PLAN Jun 03, 2013 [id number] [phone] RICHARDSO N,ELI PATIENT Selected Encounter This section includes the information on record at [place] for the Encounter. Date/Time Encounter Type Encounter Description Reason Provider Source Jan 22, 2024 02:12 PM Outpatient Encounter ADMIN PAT ACTIVTIES (MASNONCT) EVELYN FONTAINE IHRedd Encounter Template Text not used by [place] Plan of Treatment: Future Appointments (+ 6 [...] 20 appointments. The data comes from all [place] treatment facilities. Appointment Date/Time Appointment Type Appointme nt Facility Name Mar 19, 2024 04:30 PM AMBULATORY - MEDICINE [facility] Apr 08, 2024 02:30 PM AMBULATORY - MEDICINE [facility] Apr 16, 2024 07:30 AM AMBULATORY - MEDICINE [facility] May 20, 2024 01:00 PM AMBULATORY - MEDICINE [facility] Pathology Reports: +/- 30 days of [...] the Encounter. The data comes from all [facility] facilities. Date/Time Pathology Report Provider Source Jan [...] Performing Laboratory: Surgical Pathology Report Performed By: [facility]# [id number] [address] [place] [phone] $FTR - - - - - - - - - - - - - - - - - - - - - - - - - - - - - - - - - - - - - - - - (End of report) ARNOLD MTZ MD [facility] Date Jan 23, 2024 - - - - - - - - - - - - - - - - - - - - - - - - - - - - - - - - - - - - - - - - ELI RUELAS STANDARD FORM 515 ID:[id number] SEX:M :1955 AGE: 68 LOC:GILABA2 PCP: Claudia Campa NP /loreta/ ARNOLD MTZ Pathologist Signed: 01/23/2024 16:11 ARNOLD MTZ [facility] Encounter [...] URGENCY: STATUS: COMPLETED Patient: ELI RUELAS SSN: [id number] Date of Operation: 01/22/2024 Surgery Start Time: [...] Time: 01/22/2024 14:07 /loreta/ EVELYN FONTAINE MS CRNA Signed: 01/22/2024 14:12 EVELYN FONTAINE [facility]
--- OUTSIDE RECORDS SUMMARY | 2024-09-22 15:07 | XMS_ITS | Clinical Summary ---
Author Organization [facility] Address [address] [place] [address] Care Team Providers Care Industrial Eng Name Role Phone Jm Cedillo MD Primary Care Provider [phone] Social History Tobacco Use Types Packs/Day Years [...] Vaccines (1 of 2) 2007 Pneumococcal Vaccine: 50+ Ye ars (2 of 2 - PCV) 03/03/2014 03/03/2013 Colorectal Cancer Screening Colonoscopy (10 Years) 03/08/2020 03/08/2010 Annual Medicare Wellness Visit 2022 COVID-19 Vaccine ( - 2023-2 5 season) 2024 RSV Immunization or 60+ Years (1 - [...] CDT Documented hx of procedure Procedure Note Md Generic MD Rob - 04/07/2018 Documented hx of procedure us Generic Conversion Md SHULTZ GI PROCEDURE ORDERABLES Final Result [employer] TO EPIC CONVERSION from Last 3 Months or Most Recently Relevant to Health Maintenance Insurance MEDICARE MEDICAID Care Teams Industrial Eng Relationship Specialty Start Date End Date Jm Cedillo MD PCP - General INTERNAL MEDICINE 12/23/18
--- OUTSIDE RECORDS SUMMARY | 2024-09-22 15:07 | XMS_ITS | Encounter Summary ---
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 ([place] Organization [facility] Address [address] [place] [address] Care Team Providers Care Bonderite Operator Name Role Phone JESSICA KAY Primary [...] ACTIV E IL HIGH Jun 03, 2013 [id number] [phone] EMMAMICHELLE DiamondROSITA SPOUSE MEDICARE (WNR) MEDICARE (M) PART B Jul 04, 2016 PART B [id number] EMMAMICHELLE Diamond,ELI PATIENT MEDICARE (WNR) MEDICARE (M) PART A Jul 04, 2016 PART A [id number] [phone] EMMAMICHELLE Diaomnd,ELI PATIENT MEDICARE (WNR) MEDICARE (M) PART A Jul 04, 2016 PART A [id number] RICHARDSO N,ELI PATIENT MEDICARE (WNR) MEDICARE (M) PART A Jul 04, 2016 PART A [id number] RICHARDSO N,ELI PATIENT MEDICARE (WNR) MEDICARE (M) PART B Jul 04, 2016 PART B [id number] RICHARDSO N,ELI PATIENT MEDICARE (WNR) MEDICARE (M) PART B Jul 04, 2016 PART B [id number] RICHARDSO N,ELI PATIENT MEDICARE (WNR) MEDICARE (M) PART A Jul 04, 2016 PART A [id number] RICHARDSO N,ELI PATIENT MEDICARE (WNR) MEDICARE (M) PART B Jul 04, 2016 PART B [id number] RICHARDSO N,ELI PATIENT PRIME THERAPEUTI CS RX PRESCRIPT ION RX PLAN Jun 03, 2013 [id number] [phone] EMMASO N,ELI PATIENT Selected Encounter This section includes the information on record at [place] for the Encounter. Date/Time Encounter Type Encounter Description Reason Provider Source Apr 16, 2024 07:30 AM Outpatient Encounter EP LAB ICD-10-CM I63.9 Cerebral infarction, unspecified NASIR BARNES IHRedd Encounter Template Text not used by [place] Assessments - Encounter Diagnoses This section includes the primary and secondary diagnoses documented for the Encounter. Date/Time Primary/Secondary Diagnosis Diagnosis Name Provider Source Apr 21, 2024 08:35 AM PRIMARY Cerebral infarction, unspecified NASIR BARNES [facility] Plan of Treatment: Future Appointments [...] 20, 2024 01:00 PM AMBULATORY - MEDICINE [facility] Aug 06, 2024 10:15 AM AMBULATORY - MEDICINE [facility] Aug 07, 2024 01:00 PM AMBULATORY - MEDICINE [facility] Aug 28, 2024 12:00 PM AMBULATORY - NONE [facility] Aug 28, 2024 02:30 PM AMBULATORY - MEDICINE [facility] Sep 16, 2024 01:00 PM AMBULATORY - MEDICINE [facility] Sep 17, 2024 02:00 PM AMBULATORY - MEDICINE [facility] Lab Results: +/- 30 days of [...] Type Comment Apr 08, 2024 03:39 PM [facility] MICRAL/CREAT PROFILE (STL) URINE Specimen Typ e: URINE No comment entered. Ordering Provider: WES GARCIA Report Released Date/Time: Apr 08, 2024 08:39 AM Reporting Lab: [facility] [address] Performing Lab: [facility] [address] URINE ALBUMIN (PB-STL) 8 mg/L No range refer to micral/creat ratio uACR (STL) 6 mg/g 0-29 CREATININE URINE/OTHERS 139.8 mg/dL 63.0 -166.0 Apr 08, 2024 03:39 PM [facility] URINALYSIS (STL-PB) URINE Specimen Type: URIN E No comment entered. Ordering Provider: WES GARCIA Report Released Date/Time: Apr 08, 2024 08:39 AM Reporting Lab: [facility] [address] Performing Lab: [facility] [address] URINE COLOR Yellow Yellow U.BILIRUBIN Negative mg/dL Negative U.PH 6.5 5.0-8.0 APPEARANCE Clear Clear U.NITRITE Negative mg/dL Negative URN.GLUCOSE Normal mg/dL Negative URN.PROTEIN Negative mg/dL URN.UROBILINOGEN 2 mg/dL H Normal URN.BLOOD Negative mg/dL Negative-Trace URN.KETONES Negative mg/dL Negative-Trac e URN.LEUK.EST. Negative mg/dL Negative-Tr jason URN.SPECIFIC GRAVITY 1.023 Apr 08, 2024 03:32 PM [facility] HGA1C BLOOD Specimen Type: BLOOD No comment entered. Ordering Provider: WES GARCIA Report Released Date/Time: Apr 08, 2024 08:39 AM Reporting Lab: [facility] [place] [address] Performing Lab: [facility] [place] [address] HGA1C 6.3 H 4.0-6.0 Apr 08, 2024 03:32 PM [facility] CBC BLOOD Specimen Type: BLOOD No comment entered. Ordering Provider: WES GARCIA Report Released Date/Time: Apr 08, 2024 08:39 AM Reporting Lab: [facility] [place] [address] Performing Lab: [facility] [place] [address] WBC 9.3 10*3/uL 3.6-11.2 RBC 4.43 10*6/uL [...] [facility] [place] [address] Performing Lab: [facility]1 [place] [address] VITAMIN D, 25-HYDROXY 33.1 ng/mL 30-96 Apr 08, 2024 03:32 PM [facility] LIPID PANEL (STL) PLASMA Specimen Type: PLASM A Comment: No hemolysis noted. Ordering Provider: WES GARCIA Report Released Date/Time: Apr 08, 2024 08:39 AM Reporting Lab: [facility] [place] [address] Performing Lab: [facility] [place] [address] CHOLESTEROL 147 mg/dL 0-200 TRIGLYCERIDE 110 mg/dL 0-150 CALCULATED LDL 90 mg/dL See Interp HDL(New) 35 mg/dL L > 40 Apr 08, 2024 03:32 PM [facility] TSH (MA-PB) SERUM Specimen Type: SERUM No comment entered. Ordering Provider: WES GARCIA Report Released Date/Time: Apr 08, 2024 08:39 AM Reporting Lab: [facility] [place] [address] Performing Lab: [facility] [place] [address] TSH 1.120 u[IU]/mL 0.470-5.000 Apr 08, 2024 03:32 PM [facility] COMPREHENSIVE METABOLIC PANEL PLASMA Specimen Type: PLASMA Comment: No hemolysis noted. Ordering Provider: WES GARCIA Report Released Date/Time: Apr 08, 2024 08:39 AM Reporting Lab: [facility] [address] Performing Lab: [facility] [address] CREATININE 1.07 mg/dL 0.70-1.30 UREA NITROGEN 11.6 [...] the Encounter. The data comes from all [place] treatment facilities. Date/Time Radiology Report Provider Source Apr 08, 2024 03:44 PM KNEE,RIGHT 3 VIEWS : ELI RUELAS [facility] [id number] -1955 M Exm Date: APR 08, 2024@15:44 Req Phys: WES GARCIA Pat Loc: [facility] PCP (Req'g Loc) Img Loc: [facility] Service: Unknown [address] [address] (Case [id number] COMPLETE) KNEE,RIGHT 3 VIEWS (RAD Detailed) CPT:00213 Proc Modifiers : RIGHT Reason for Study: Worsening knee pain Clinical History: Worsening knee pain Report Status: Verified Date Reported: APR 09, 2024 Date Verified: APR 09, 2024 Cashier And Salesperson E-Sig:/LORETA/MARIAN AMBROSE MD Report: Case #: [id number]. [...] MARIAN AMBROSE MD, Staff Physician - Radiologist (Cashier And Salesperson) /MARIAN FORBES [facility] Apr 08, 2024 03:44 PM KNEE,LEFT, 3 VIEWS : ELI RUELAS [id number] -1955 M Exm Date: APR 08, 2024@15:44 Req Phys: JOSÉ GARCIASA Pat Loc: [facility] PCP (Req'g Loc) Img Loc: [facility] Service: Unknown [address] [address] (Case [id number] COMPLETE) KNEE,LEFT, 3 VIEWS (RAD Detailed) CPT:31396 Proc Modifiers : LEFT Reason for Study: Worsening knee pain Clinical History: Worsening knee pain Report Status: Verified Date Reported: APR 09, 2024 Date Verified: APR 09, 2024 Cashier And Salesperson E-Sig:/LORETA/MARIAN AMBROSE MD Report: Case #: [id number]. [...] MARIAN AMBROSE MD, Staff Physician - Radiologist (Cashier And Salesperson) /MARIAN FORBES [facility] Encounter Notes: All associated encounter notes [...] IMPLANTED. [facility] SURVEILLANCE UPDATED. Eli Ruelas SSN: [id number] [facility] [employer] [facility] 5500 Assert-IQ EL+ICM SN:[id number] Implant Date:04/16/2024 /loreta/ VANNESSA BRUNO BSN,RN,CEPS REGISTERED NURSE Signed: 04/20/2024 13:59 VANNESSA BRUNO [facility] Apr 16, 2024 09:13 AM CARDIOLOGY NURSING PREPROCEDURE NOTE: LOCAL TITLE: TROUBLE TRACER PROCEDURE STL STANDARD TITLE: CARDIOLOGY NURSING PREPROCEDURE NOTE DATE OF NOTE: APR 16, 2024@09:13 ENTRY DATE: APR 16, 2024@09:13:54 AUTHOR: NEELAM SHIPMAN EXP COSIGNER: NASIR BARNES URGENCY: STATUS: COMPLETED TROUBLE TRACER PROCEDURE STL Has ADDENDA EP ILR Implant [...] (cm): BSA: Weight (lbs): Weight (kg): AlternateID: [id number] Lab Number: 3 Study Information Scheduled Start Study Start 04/16/2024 04/16/2024 Stay Type Outpatient Facility Department [facility] - Skip Sorto - Solid Waste Disposal Manager Physician and Clinical Staff Initial MD: Nasir [...] confirmed. 8:24:19 Company rep present: Sky greer Missingames 8:38:10 Patient assisted to procedure room and reclined in pink chair 8:39:00 Informed consent obtained on IMED in CPRS by physician. 8:41:25 Time out including patient, procedure & site verification took place with staff, physician and patient prior to start of case. 8:47:57 Time out performed by:Nasir Barnes, Junior So John [facility], Neelam Shipman, RN, Mike Singh [facility]. Everyone in agreement to proceed with procedure. [...] Lidocaine injected at site by physician. 8:51:55 Tanner Insertable Casino Porter Device implanted Tanner Assert-IQ EL+ EXP: 07-10-2025 REF: [id number] SN: [id number] 8:52:44 Subcutaneous tissue closed with: 2-0 vicryl [...] Initial MD: Nasir Barnes Study Date: 04/16/2024 /loreta/ NEELAM SHIPMAN BSN RN REGISTERED NURSE Signed: 04/16/2024 09:15 /loreta/ NASIR BARNES MD CLINICAL CARDIAC CLINICAL DIETETIC TECHNICIAN Cosigned: 04/16/2024 09:41 04/16/2024 ADDENDUM STATUS: COMPLETED I have reviewed this note and have ordered the medications/treatments as recorded. /loreta/ NASIR BARNES MD CLINICAL CARDIAC CLINICAL DIETETIC TECHNICIAN Signed: 04/16/2024 09:41 NEELAM SHIPMAN [facility] Apr 16, 2024 09:07 AM CARDIOLOGY PROCEDURE NOTE: LOCAL TITLE: CARDIOLOGY PROCEDURE REPORT [facility] STANDARD TITLE: CARDIOLOGY PROCEDURE NOTE DATE OF NOTE: APR 16, 2024@09:07 ENTRY DATE: APR 16, 2024@09:07:13 AUTHOR: NASIR BARNES EXP COSIGNER: URGENCY: STATUS: COMPLETED [facility] Program for Clinical Assessment, Reporting, and Tracking CARDIAC IMPLANTABLE ELECTRONIC DEVICE REPORT Patient: ELI RUELAS SSN: [id number] : 1955 AGE: 69 Procedure Date: 04/16/2024 [...] Steri-Strips in place. PROCEDURE CODING Coding Procedure 30507 ILR 657 [facility]-CIED:[id number] ED01 04/16/2024 /loreta/ NASIR BARNES MD CLINICAL CARDIAC CLINICAL DIETETIC TECHNICIAN Signed: 04/16/2024 09:09 NASIR BARNES [facility] Apr 16, 2024 08:38 AM CARDIOLOGY PREPROCEDURE NOTE: LOCAL TITLE: CARDIOLOGY PRE-PROCEDURAL NOTE STL STANDARD TITLE: CARDIOLOGY PREPROCEDURE NOTE DATE OF NOTE: APR 16, 2024@08:38 ENTRY DATE: APR 16, 2024@08:38:28 AUTHOR: NASIR BARNES EXP COSIGNER: URGENCY: STATUS: COMPLETED [place] CART Program for Clinical Assessment, Reporting, and Tracking CARDIAC IMPLANTABLE ELECTRONIC DEVICE PRE-PROCEDURE ASSESSMENT REPORT Patient: ELI RUELAS SSN: [id number] : 1955 AGE: 69 Assessment for elective [...] 2G/100ML ISO-OSMOTIC 100 ML expires: 04/16/2024 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
--- OUTSIDE RECORDS SUMMARY | 2024-09-22 15:07 | XMS_ITS | Encounter Summary ---
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 ([place] Organization Department of [facility] [place] [facility] ([place]) Address [address] [place] [address] Care Team Providers Care Cell Phone Repair Technician Name Role Phone JESSICA KAY Primary [...] ACTIV E [place] HIGH Jun 03, 2013 [id number] [phone] JOSEPHINE DiamondROSITA SPOUSE MEDICARE (WNR) MEDICARE (M) PART A Jul 04, 2016 PART A [id number] [phone] JOSEPHINE DiamondELI PATIENT MEDICARE (WNR) MEDICARE (M) PART B Jul 04, 2016 PART B [id number] JOSEPHINE Diamond,ELI PATIENT MEDICARE (WNR) MEDICARE (M) PART A Jul 04, 2016 PART A [id number] [phone] RICHARDSO N,ELI PATIENT MEDICARE (WNR) MEDICARE (M) PART B Jul 04, 2016 PART B [id number] RICHARDSO N,ELI PATIENT MEDICARE (WNR) MEDICARE (M) PART A Jul 04, 2016 PART A [id number] [phone] RICHARDSO N,ELI PATIENT MEDICARE (WNR) MEDICARE (M) PART B Jul 04, 2016 PART B [id number] RICHARDSO N,ELI PATIENT MEDICARE (WNR) MEDICARE (M) PART A Jul 04, 2016 PART A [id number] [id number] RICHARDSO N,ELI PATIENT MEDICARE (WNR) MEDICARE (M) PART B Jul 04, 2016 PART B [id number] RICHARDSO N,ELI PATIENT PRIME THERAPEUTI CS RX PRESCRIPT ION RX PLAN Jun 03, 2013 [id number] [phone] RICHARDSO N,ELI PATIENT Selected Encounter This section includes the information on record at [place] for the Encounter. Date/Time Encounter Type Encounter Description Reason Provider Source Apr 08, 2024 02:30 PM OFFICE O/P EST MOD 30 MIN PRIMARY CARE/MEDICINE ICD-10-CM J44.9 Chronic obstructive pulmonary disease, unspecified MCQUAIDE,THERE SA IHE Encounter Template Text not used by [place] Assessments - Encounter Diagnoses This section includes the primary and secondary diagnoses documented for the Encounter. Date/Time Primary/Secondary Diagnosis Diagnosis Name Provider Source Apr 08, 2024 04:18 PM PRIMARY Chronic obstructive pulmonary disease, unspecified MILES HARTLEY [facility] Apr 08, 2024 04:18 PM SECONDARY Encounter for immunization OVERTURFROD [facility] Apr 08, 2024 04:18 PM SECONDARY Hyp hrt & chr kdny dis w/o hrt fail, w stg 1-4/unsp chr MILES Garcia [facility] Apr 08, 2024 04:18 PM SECONDARY Hyperlipidemia, unspecified MILES HARTLEY [facility] Apr 08, 2024 04:18 PM SECONDARY Nicotine dependence, unspecified, uncomplicated MILES HARTLEY [facility] Apr 08, 2024 04:18 PM SECONDARY Pain in left knee MILES HARTLEY [facility] Apr 08, 2024 04:18 PM SECONDARY Pain in right knee MILES HARTLEY [facility] Apr 08, 2024 04:18 PM SECONDARY Plantar fascial fibromatosis MILES HARTLEY [facility] Apr 08, 2024 04:18 PM SECONDARY Polyp of colon ANNMILES MENDOZA [facility] Apr 08, 2024 04:18 PM SECONDARY [facility] Plan of Treatment: Future Appointments (+ 6 months) and Future Tests (+/- 45 days) The Plan of Treatment section includes future care activities for the patient from all [facility]. This section includes future appointments and future orders which are active, pending or scheduled. Future Appointments This section includes appointments that were scheduled to occur 6 months from the date of the Encounter, up to a maximum of 20 appointments. The data comes from all [facility] facilities. Appointment Date/Time Appointment Type Appointme nt Facility Name Apr 16, 2024 07:30 AM AMBULATORY - MEDICINE [facility] May 20, 2024 01:00 PM AMBULATORY - MEDICINE [facility] Aug 06, 2024 10:15 AM AMBULATORY - MEDICINE [facility] Aug 07, 2024 01:00 PM AMBULATORY - MEDICINE [facility] Aug 28, 2024 12:00 PM AMBULATORY - NONE [facility] Aug 28, 2024 02:30 PM AMBULATORY - MEDICINE [facility] Sep 16, 2024 01:00 PM AMBULATORY - MEDICINE [facility] Sep 17, 2024 02:00 PM AMBULATORY - MEDICINE [facility] Lab Results: +/- 30 days of the encounter This section includes the Chemistry and Hematology Lab Results on record with [place] for the patient. Radiology Reports and Pathology Reports are provided separately, in subsequent sections. Lab Results This section contains the Chemistry/Hematology Results that were resulted 30 days before or 30 daysafter the date of the Encounter. Date/Time Source Result Type Result - Unit Interpretation Reference Range Specimen Type Comment Apr 08, 2024 03:39 PM [facility] MICRAL/CREAT PROFILE (STL) URINE Specimen Typ e: URINE No comment entered. Ordering Provider: WES CASTELLON Report Released Date/Time: Apr 08, 2024 08:39 AM Reporting Lab: [facility] [address] [place] [address] Performing Lab: [facility] [place] [address] URINE ALBUMIN (PB-STL) 8 mg/L No range refer to micral/creat ratio uACR (STL) 6 mg/g 0-29 CREATININE URINE/OTHERS 139.8 mg/dL 63.0 -166.0 Apr 08, 2024 03:39 PM [facility] URINALYSIS (STL-PB) URINE Specimen Type: URIN E No comment entered. Ordering Provider: WES CASTELLON Report Released Date/Time: Apr 08, 2024 08:39 AM Reporting Lab: [facility] [address] [place] [address] Performing Lab: [facility] [place] [address] URINE COLOR Yellow Yellow U.BILIRUBIN Negative mg/dL Negative U.PH 6.5 5.0-8.0 APPEARANCE Clear Clear U.NITRITE Negative mg/dL Negative URN.GLUCOSE Normal mg/dL Negative URN.PROTEIN Negative mg/dL URN.UROBILINOGEN 2 mg/dL H Normal URN.BLOOD Negative mg/dL Negative-Trace URN.KETONES Negative mg/dL Negative-Trac e URN.LEUK.EST. Negative mg/dL Negative-Tr jason URN.SPECIFIC GRAVITY 1.023 Apr 08, 2024 03:32 PM [facility] HGA1C BLOOD Specimen Type: BLOOD No comment entered. Ordering Provider: WES CASTELLON Report Released Date/Time: Apr 08, 2024 08:39 AM Reporting Lab: [facility] [facility] [address] Performing Lab: [facility] [address] [place] [phone] HGA1C 6.3 H 4.0-6.0 Apr 08, 2024 03:32 PM [facility] CBC BLOOD Specimen Type: BLOOD No comment entered. Ordering Provider: WES CASTELLON Report Released Date/Time: Apr 08, 2024 08:39 AM Reporting Lab: [facility] [address] Performing Lab: [facility] [address] [place] [address] WBC 9.3 10*3/uL 3.6-11.2 RBC 4.43 10*6/uL [...] 0.00-0. 20 Apr 08, 2024 03:32 PM [facility] VITAMIN D, 25-HYDROXY SERUM Specimen Type: SE RUM No comment entered. Ordering Provider: WES CASTELLON Report Released Date/Time: Apr 08, 2024 08:39 AM Reporting Lab: [facility] [address] [place] [phone] Performing Lab: [facility] [address] [place] [phone] VITAMIN D, 25-HYDROXY 33.1 ng/mL 30-96 Apr 08, 2024 03:32 PM [facility] LIPID PANEL (STL) PLASMA Specimen Type: PLASM A Comment: No hemolysis noted. Ordering Provider: WES CASTELLON Report Released Date/Time: Apr 08, 2024 08:39 AM Reporting Lab: [facility] [place] [address] Performing Lab: [facility] [address] [place] [address] CHOLESTEROL 147 mg/dL 0-200 TRIGLYCERIDE 110 mg/dL 0-150 CALCULATED LDL 90 mg/dL See Interp HDL(New) 35 mg/dL L > 40 Apr 08, 2024 03:32 PM [facility] COMPREHENSIVE METABOLIC PANEL PLASMA Specimen Type: PLASMA Comment: No hemolysis noted. Ordering Provider: WES CASTELLON Report Released Date/Time: Apr 08, 2024 08:39 AM Reporting Lab: [facility] [place] [address] Performing Lab: [facility] [address] [place] [address] CREATININE 1.07 mg/dL 0.70-1.30 UREA NITROGEN 11.6 [...] 76.06 >60 Apr 08, 2024 03:32 PM [facility] TSH (MA-PB) SERUM Specimen Type: SERUM No comment entered. Ordering Provider: WES CASTELLON Report Released Date/Time: Apr 08, 2024 08:39 AM Reporting Lab: [facility] [phone] Performing Lab: [facility] [address] [facility] [phone] TSH 1.120 u[IU]/mL 0.470-5.000 Vital Signs: All taken on the encounter date This section contains inpatient and outpatient Vital Signs collected on the date of the Encounter. Date/Time Temperature Pulse Blood Pressure Respiratory Rate SP02 Pain Height Weight Body Mass Index Source Apr 08, 2024 02:39 PM 98.1 62 137/83 20 94 6 270 34 [facility] Immunizations: All administered on the encounter date This section contains immunizations associated to the Encounter. Immunization Series Date Issued Administered By Site Reaction Lot Number CVX Code Drug Machinist Supervisor Outside Comment(s) Source INFLUENZA, HIGH-DOSE, TRIVALENT, PF Apr 08, 2024 OVERTURF,BRIGITTE E A RIGHT DELTO ID [id number] 135 [employer] PASTEUR [facility]ISTERE [facility] Social History: Smoking Status (Most current) and Tobacco Use (All prior to encounter date) This section includes the most current, and the historical, smoking and tobacco- related health factors from the [place] facility where the Encounter took place. Current Smoking Status This section includes the most current smoking, or tobacco-related health factor, from the [place] facility where the Encounter took place. Date/Time Current Smoking Status Comment Facil ity Apr 08, 2024 02:30 PM VA-TOBACCO USE CARYN RY DAY CIGARETTES [facility] Tobacco Use History This section includes a history of the smoking, or tobacco-related health factors, that were collected on or before the date of the Encounter. The data comes from the [place] facility where the Encounter took place. Date/Time Smoking Status/Tobacco Use Comment F acility Apr 08, 2024 02:30 PM VA-TOBACCO SCREEN FOLLOW-UP [facility] Apr 08, 2024 02:30 PM VA-TOBACCO USE ADVICE [facility] Apr 08, 2024 02:30 PM VA-TOBACCO USE NUTRITION INSTRUCTOR NO [facility] Apr 08, 2024 02:30 PM VA-TOBACCO USE CARYN RY DAY CIGARETTES [facility] Apr 08, 2024 02:30 PM VA-TOBACCO USE MED NO [facility] Feb 15, 2023 11:00 AM VA-TOBACCO USE 30 YEARS OR MORE [facility] Feb 15, 2023 11:00 AM VA-TOBACCO USE ADVICE [facility] Feb 15, 2023 11:00 AM VA-TOBACCO USE NUTRITION INSTRUCTOR NO [facility] Feb 15, 2023 11:00 AM VA-TOBACCO USE MED NO [facility] Feb 15, 2023 11:00 AM VA-TOBACCO USE WI 30 MIN OF WAKEUP [facility] Feb 15, 2023 11:00 AM VA-TOBACCO USER EVERY DAY [facility] Feb 19, 2022 11:30 AM VA-TOBACCO DOESNT USE WI 30 MIN WAKEUP [facility] Feb 19, 2022 11:30 AM VA-TOBACCO USE 30 YEARS OR MORE [facility] Feb 19, 2022 11:30 AM VA-TOBACCO USE ADVICE [facility] Feb 19, 2022 11:30 AM VA-TOBACCO USE NUTRITION INSTRUCTOR NO [facility] Feb 19, 2022 11:30 AM VA-TOBACCO USE MED NO [facility] Feb 19, 2022 11:30 AM VA-TOBACCO USER EVERY DAY [facility] October 11, 2020 10:30 AM VA-TOBACCO FORMER USER [facility] October 11, 2020 10:30 AM VA-TOBACCO QUIT < 1 YEAR [facility] Radiology Reports: +/- 30 days of the [...] the Encounter. The data comes from all [place] treatment facilities. Date/Time Radiology Report Provider Source Apr 08, 2024 03:44 PM KNEE,RIGHT 3 VIEWS : ELI RUELAS [id number] -[id number] M Exm Date: APR 08, 2024@15:44 Req Phys: WES CASTELLON Pat Loc: [facility]3 PCP (Req'g Loc) Img Loc: [facility] RADIOLOGY Service: Unknown [address] [address] (Case [id number] COMPLETE) KNEE,RIGHT 3 VIEWS (RAD Detailed) CPT:73640 Proc Modifiers : RIGHT Reason for Study: Worsening knee pain Clinical History: Worsening knee pain Report Status: Verified Date Reported: APR 09, 2024 Date Verified: APR 09, 2024 Supervisor Sheet Manufacturing E-Sig:/ES/MARIAN AMBROSE MD Report: Case #: [id number]. [...] MARIAN AMBROSE MD, Staff Physician - Radiologist (Supervisor Sheet Manufacturing) /MARIAN FORBES [facility] Apr 08, 2024 03:44 PM KNEE,LEFT, 3 VIEWS : ELI RUELAS [id number] -1955 M Exm Date: APR 08, 2024@15:44 Req Phys: WES CASTELLON Pat Loc: [facility] PCP (Req'g Loc) Img Loc: [facility] RADIOLOGY Service: Unknown [address] [address] (Case [id number] COMPLETE) KNEE,LEFT, 3 VIEWS (RAD Detailed) CPT:25819 Proc Modifiers : LEFT Reason for Study: Worsening knee pain Clinical History: Worsening knee pain Report Status: Verified Date Reported: APR 09, 2024 Date Verified: APR 09, 2024 Supervisor Sheet Manufacturing E-Sig:/RYAN AMBROSE MD Report: Case #: [id number]. Left [...] MARIAN AMBROSE MD, Staff Physician - Radiologist (Supervisor Sheet Manufacturing) /MARIAN FORBES [facility] Encounter Notes: All associated encounter notes This section contains the clinical notes associated to the Encounter. Date/Time Encounter Note(s) Provider Source May 19, 2024 10:33 AM ADDENDUM: LOCAL TITLE: Addendum STANDARD TITLE: ADDENDUM DATE OF NOTE: MAY 19, 2024@10:33:45 ENTRY DATE: MAY 19, 2024@10:33:46 AUTHOR: FAMILIA GALLAGHER EXP COSIGNER: URGENCY: STATUS: COMPLETED [facility] called to get schedule with provider soon as possible. Vetealexandra requesting a call back /argelia GALLAGHER medical device sales consultant Signed: 05/19/2024 10:35 Receipt Acknowledged By: 05/19/2024 11:41 /argelia CARLIN advanced medical device sales consultant --- Original Document --- 05/14/24 ADMINISTRATIVE STL: Author called pt, left a VM on cell to return call. Will discuss Atrial fibrillation and need for DOAC. /loreta/ WES [facility] ADULT NURSE PRACTITIONER Signed: 05/14/2024 13:11 05/15/2024 ADDENDUM STATUS: COMPLETED Author called pt's cell phone. Left a VM to return call: to discuss A-fib and initation of anticogulation. /loreta/ WES [facility] ADULT NURSE PRACTITIONER Signed: 05/15/2024 [...] mutually concluded. smith Brand for informational purposes /argelia [facility] ADULT NURSE PRACTITIONER Signed: 05/19/2024 10:28 Receipt Acknowledged By: 05/19/2024 10:40 /es/ Ofe Brand THERAPY DIRECTOR REGISTERED NURSE 05/19/2024 11:41 /es/ KAYLA CARLIN advanced medical device sales consultant FAMILIA GALLAGHER [facility] May 19, 2024 10:24 AM [...] Brand for informational purposes /loreta/ WES [facility] ADULT NURSE PRACTITIONER Signed: 05/19/2024 10:28 Receipt Acknowledged By: 05/19/2024 10:40 /es/ Ofe Brand THERAPY DIRECTOR REGISTERED NURSE 05/19/2024 11:41 /es/ KAYLA CARLIN advanced medical device sales consultant --- Original Document --- 05/14/24 ADMINISTRATIVE STL: Author called pt, left a VM on cell to return call. Will discuss Atrial fibrillation and need for DOAC. /loreta/ WES [facility] ADULT NURSE PRACTITIONER Signed: 05/14/2024 13:11 05/15/2024 ADDENDUM STATUS: COMPLETED Author called pt's cell phone. Left a VM to return call: to discuss A-fib and initation of anticogulation. /loreta/ WES [facility] ADULT NURSE PRACTITIONER Signed: 05/15/2024 09:18 05/19/2024 ADDENDUM STATUS: COMPLETED [facility] called to get schedule with provider soon as possible. Aida requesting a call back /loreta/ FAMILIA GALLAGHER medical device sales consultant Signed: 05/19/2024 10:35 Receipt Acknowledged By: * AWAITING SIGNATURE * KAYLA CARLIN [facility] May 14, 2024 01:09 PM ADMINISTRATIVE NOT E: LOCAL TITLE: ADMINISTRATIVE STL STANDARD TITLE: ADMINISTRATIVE NOTE DATE OF NOTE: MAY 14, 2024@13:09 ENTRY DATE: MAY 14, 2024@13:09:35 AUTHOR: WES CASTELLON EXP COSIGNER: URGENCY: STATUS: COMPLETED ADMINISTRATIVE STL Has ADDENDA Author called pt, left a VM on cell to return call. Will discuss Atrial fibrillation and need for DOAC. /loreta/ WES [facility] ADULT NURSE PRACTITIONER Signed: 05/14/2024 13:11 05/15/2024 ADDENDUM STATUS: COMPLETED Author called pt's cell phone. Left a VM to return call: to discuss A-fib and initation of anticogulation. /loreta/ WES [facility] ADULT NURSE PRACTITIONER Signed: 05/15/2024 [...] labs. Voiced understanding and call mutually concluded. smiht Brand for informational purposes /loreta/ WES [facility] ADULT NURSE PRACTITIONER Signed: 05/19/2024 10:28 Receipt Acknowledged By: 05/19/2024 10:40 /es/ Ofe Brand THERAPY DIRECTOR REGISTERED NURSE * AWAITING SIGNATURE * KAYLA CARLIN 05/19/2024 ADDENDUM STATUS: COMPLETED [facility] called to get schedule with provider soon as possible. Aida requesting a call back /loreta/ FAMILIA GALLAGHER medical device sales consultant Signed: 05/19/2024 10:35 Receipt Acknowledged By: * AWAITING SIGNATURE * KAYLA CARLIN [facility] Apr 09, 2024 09:53 AM PHYSICIAN LETTERS: LOCAL TITLE: TEST RESULT GENERAL LETTER STL STANDARD TITLE: PHYSICIAN LETTERS DATE OF NOTE: APR 09, 2024@09:53 ENTRY DATE: APR 09, 2024@09:53:40 AUTHOR: RADHAWES EXP COSIGNER: URGENCY: STATUS: COMPLETED [facility] [address] [place] [address] APR 09, 2024 ELI RUELAS [address] [place] [address] [place], [place] [address] Dear Eli Ruelas, I would like to [...] have any questions please call your case packer and sealer. I look forward to seeing you at your next clinic appointment. Thank you for choosing the [facility] for your healthcare. FUTURE APPOINTMENTS: 04/16/2024 07:30 JOSELYN-PACEMAKER EP LAB 08/28/2024 14:00 JOSELYN-PFT-JOSELYN 08/28/2024 14:30 JOSELYN-PULMONARY INTERVENTION 2025 13:00 JOSELYN-CARDIOLOGY F4 Sincerely, WES LOPEZ. 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 Followed per [facility] by Dr. Rivera. 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 Handwritten corrections, additions and/or deletions were made [...] BY MOUTH EVERY ACTIVE EVENING 4) Non-VA MALNNYHHLMFL69.5/VILANTEROL 25MCG 30D INH 1 ACTIVE PUFF ORAL INHALATION ONCE A DAY 9 Total Medications REVIEW OF SYSTEMS: General: Weight Gain Gain 7# Ears, Nose, Mouth, Throat: Normal Eye: Normal Cardiovascular: HTN BP today 137/83 Respiratory: Cough, SOB chronic. ABD/GI: Normal Musculoskeletal/Extremities : Abnormal Pain, Stiffness/reduced ROM States bottom of left foot felt swollen last night, but was unable to check. /SILO PAINTER: Nocturia Urinates 1x/night Psych: Sleeps ~8 hours/night [...] to keep all scheduled appointments and contact ios architect for any additional problems. PREVENTION & SCREENING: ALCOHOL: Clinical Reminder not due now or within a month BLOOD PRESSURE: Clinical Reminder not due now or within a month HEMOGLOBIN A1C: Clinical Reminder not due now or within a month THE SUPERVISING PHYSICIAN FOR THIS PATIENT ENCOUNTER IS DR. Castellon /argelia HARTLEY STUDENT NURSE PRACTITIONER Signed: 04/08/2024 16:18 /argelia [facility] ADULT NURSE PRACTITIONER Cosigned: 04/08/2024 16:19 04/08/2024 ADDENDUM STATUS: COMPLETED Author was present during TRANSPORTER DRIVER Student Naeem's review of PMH, examine and POC. Author reviewed PMH, examined pt and agrees with noted POC. -- Discussed stretching and ROM exercises with pt. Offered oral Prednisone and pt declined. Aware to report if worsens or doesn't nora /argelia [facility] ADULT NURSE PRACTITIONER Signed: 04/08/2024 16:21 MILES HARTLEY [facility] Apr 08, 2024 02:44 PM NURSING NOTE: LOCAL TITLE: V15 PACT FACE TO FACE NOTE ST STANDARD TITLE: NURSING NOTE DATE OF NOTE: APR 08, 2024@14:44 ENTRY DATE: APR 08, 2024@14:44:45 AUTHOR: ROD SALCEDO COSIGNER: URGENCY: STATUS: COMPLETED Provider Visit: Patient [...] concerns. Review that after hours nurse line [phone] and emergency room are available 24/12 for patient use. Contact verbalized good understanding. Suicide Screen - V: C-SSRS Screening [place] Suicide Severity Rating Scale (C-SSRS) screener 1. [...] Mar 2024 Exact date unknown Outside Location: [facility] Information Source: FROM PATIENT'S RECALL Alcohol Use [...] PF Date Administered: Apr 08, 2024 14:30 Machinist Supervisor Outside: SANOFI PASTEUR Lot: [id number] Exp Date: Nov 30, 2024 [facility]: [phone] Admin Route/Site: INTRAMUSCULAR/RIGHT DELTOID Dosage: 0.5mL Vaccine Information Statement(s): INFLUENZA(FLU) VACC(INACTIVATED OR RECOMBINANT)VIS Jan 06, 2021 (ICELANDIC) Order By: Policy Administered By: Rod Salcedo [...] due to responses to other questions. 5. [place] numb or detached from people, activities, or your surroundings? Response not required due to responses to other questions. 6. [place] guilty or unable to stop blaming yourself [...] PRACTICAL NURSE Signed: 04/08/2024 14:49 ROD SALCEDO [facility]
--- OUTSIDE RECORDS SUMMARY | 2024-09-22 15:07 | XMS_ITS | Encounter Summary ---
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 Organization [facility] Address [address] [place] [address] Care Team Providers Care It Account Manager Name Role Phone JESSICA KAY Primary Care [...] ACTIV E [place] HIGH Jun 03, 2013 [id number] JOSEPHINE DiamondROSITA SPOUSE MEDICARE (WNR) MEDICARE (M) PART B Jul 04, 2016 PART B [id number] JOSEPHINE DiamondELI PATIENT MEDICARE (WNR) MEDICARE (M) PART A Jul 04, 2016 PART A [id number] JOSEPHINE Diamond,ELI PATIENT MEDICARE (WNR) MEDICARE (M) PART A Jul 04, 2016 PART A [id number] [phone] RICHARDSO N,ELI PATIENT MEDICARE (WNR) MEDICARE (M) PART B Jul 04, 2016 PART B [id number] EMMASO N,ELI PATIENT MEDICARE (WNR) MEDICARE (M) PART A Jul 04, 2016 PART A [id number] EMMASO N,ELI PATIENT MEDICARE (WNR) MEDICARE (M) PART B Jul 04, 2016 PART B [id number] RICHARDSO N,ELI PATIENT MEDICARE (WNR) MEDICARE (M) PART A Jul 04, 2016 PART A [id number] [phone] EMMASO N,ELI PATIENT MEDICARE (WNR) MEDICARE (M) PART B Jul 04, 2016 PART B [id number] [phone] EMMASO N,ELI PATIENT PRIME THERAPEUTI CS RX PRESCRIPT ION RX PLAN Jun 03, 2013 [id number] [phone] EMMASO N,ELI PATIENT Selected Encounter This section includes the information on record at [place] for the Encounter. Date/Time Encounter Type Encounter Description Reason Provider Source Dec 19, 2023 03:00 PM OFFICE O/P EST MOD 30 MIN CARDIOLOGY ICD-10-CM I63.9 Cerebral infarction, unspecified OU,JIAFU IHE Encounter Template Text not used by [place] Assessments - Encounter Diagnoses This section includes the primary and secondary diagnoses documented for the Encounter. Date/Time Primary/Secondary Diagnosis Diagnosis Name Provider Source Jan 29, 2024 02:42 PM PRIMARY Cerebral infarction, unspecified SIOMNE VALDEZ [facility] Jan 29, 2024 02:42 PM SECONDARY Tobacco use SIMONE VALDEZ [facility] Plan of Treatment: [...] AMBULATORY - MEDICINE [facility] Dec 26, 2023 01:00 PM AMBULATORY - NONE [facility] Dec 31, 2023 02:00 PM [facility] Jan 02, 2024 02:00 PM AMBULATORY - NONE [facility] Jan 03, 2024 01:30 PM AMBULATORY - MEDICINE [facility] Jan 09, 2024 01:00 PM AMBULATORY - NONE [facility] Jan 22, 2024 01:15 PM AMBULATORY - MEDICINE [facility] Mar 19, 2024 04:30 PM AMBULATORY - MEDICINE [facility] Apr 08, 2024 02:30 PM AMBULATORY - MEDICINE [facility] Apr 16, 2024 07:30 AM AMBULATORY - MEDICINE [facility] May 20, 2024 01:00 PM AMBULATORY - MEDICINE [facility] Vital Signs: All taken on the encounter date This section contains inpatient and outpatient Vital Signs collected on the date of the Encounter. Date/Time Temperature Pulse Blood Pressure Respiratory Rate SP02 Pain Height Weight Body Mass Index Source Dec 19, 2023 02:51 PM 98.3 77 129/76 20 95 0 263.7 33 [facility] Encounter Notes: All [...] yo M with PMH [place] [facility] [place] in 2020 complicated by [...] a heart attack and went to a [facility] hospital where work up was done and [...] BY MOUTH EVERY ACTIVE EVENING 4) Non-VA KYEWWNMDCGPO20.5/VILANTEROL 25MCG 30D INH 1 ACTIVE PUFF ORAL [...] 11/05/2023 10:32 Local Title: VASCULAR LAB CONSULT [facility] Standard Title: VASCULAR SURGERY CONSULT VASCULAR [...] vertebral arteries are antegrade. This is an [facility] accredited vascular laboratory Exam performed by Hamida Hernandez RVT Signed by: /loreta/ HUA SHELL MD Staff Physician - General Surgery 11/05/2023 12:09 No data available for: NM MYOCARDIAL PERF (PLANAR), SINGLE STUDY NM MYOCARDIAL PERF SPECT STRESS/REST NM MYOCARDIAL PERFUSION VIABILITY NM MYOCARDIAL PERF SPECT SINGLE STUDY NM MYOCARDIAL PERF (PLANAR), MULTIPLE STUDIES ECHO: TTE in November 2022 at [facility] with preserved EF STRESS TEST: Lexiscan in November at [facility] negative ASSESSMENT/RECOMMENDATIONS: //Ischemic CVA -ischemnic CVA in 2013 (brain MRI at [facility] showed no acute stroke, however showed [...] stress test negative in November 2022 at [facility], no further work up needed [...] completed, the results will be found in [facility]. # HEALTH PROMOTION/HEALTH MAINTENANCE & EDUCATION [...] the PCP (primary provider). /argelia VALDEZ MD SKID ROAD WORKER Signed: 12/19/2023 16:01 /loreta/ JACOBO TELLO MD,[facility] STAFF CUSTOMER EXPERIENCE ANALYST Cosigned: 12/19/2023 16:04 12/19/2023 ADDENDUM STATUS: COMPLETED Cardiology Attending Note I saw, interviewed and examined Mr. Ruelas with the Box Sealing Machine Catcher, Dr. Mariano Valdez. I have reviewed the pt's clinical data including the ECG's, stress, Cath and Echo (when available) with skating rink manager. I have reviewed Dr. Mariano Valdez's note and agree with the history, physical findings and the initial assessment and plan. ELI RUELAS is doing stable from cardiac standpoint. No evidence of embolic strokes per prior brain MRI. /argelia TELLO MD,[facility] STAFF CUSTOMER EXPERIENCE ANALYST Signed: 12/19/2023 16:[address] [facility]
--- OUTSIDE RECORDS SUMMARY | 2024-09-22 15:07 | XMS_ITS | Encounter Summary ---
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 Organization [facility] [place]) Address [address] [place] [address] Care Team Providers Care Licensed Funeral Director Name Role Phone JESSICA KAY Primary Care [...] ACTIV E [place] HIGH Jun 03, 2013 [id number] JOSEPHINE DiamondROSITA SPOUSE MEDICARE (WNR) MEDICARE (M) PART A Jul 04, 2016 PART A [id number] JOSEPHINE DiamondELI PATIENT MEDICARE (WNR) MEDICARE (M) PART B Jul 04, 2016 PART B [id number] [phone] JOSEPHINE Diamond,ELI PATIENT MEDICARE (WNR) MEDICARE (M) PART A Jul 04, 2016 PART A [id number] RICHARDSO N,ELI PATIENT MEDICARE (WNR) MEDICARE (M) PART B Jul 04, 2016 PART B [id number] RICHARDSO N,ELI PATIENT MEDICARE (WNR) MEDICARE (M) PART A Jul 04, 2016 PART A [id number] [phone] EMMASO N,ELI PATIENT MEDICARE (WNR) MEDICARE (M) PART B Jul 04, 2016 PART B [id number] RICHARDSO N,ELI PATIENT MEDICARE (WNR) MEDICARE (M) PART A Jul 04, 2016 PART A [id number] RICHARDSO N,ELI PATIENT MEDICARE (WNR) MEDICARE (M) PART B Jul 04, 2016 PART B [id number] EMMASO N,ELI PATIENT PRIME THERAPEUTI CS RX PRESCRIPT ION RX PLAN Jun 03, 2013 [id number] [phone] EMMASO N,ELI PATIENT Selected Encounter This section includes the information on record at [place] for the Encounter. Date/Time Encounter Type Encounter Description Reason Provider Source October 10, 2023 01:30 PM OFFICE O/P EST MOD 30 MIN CARDIOLOGY ICD-10-CM R06.00 Dyspnea, unspecified OU,JIAFU IHE Encounter Template Text not used by [place] Assessments - Encounter Diagnoses This section includes the primary and secondary diagnoses documented for the Encounter. Date/Time Primary/Secondary Diagnosis Diagnosis Name Provider Source Mar 11, 2024 12:18 PM PRIMARY Dyspnea, unspecified SIMONE VALDEZ [facility] Mar 11, 2024 12:18 PM SECONDARY Chronic obstructive pulmonary disease, unspecified SIMONE VALDEZ [facility] Mar 11, 2024 12:18 PM SECONDARY Tobacco use SIMONE VALDEZ [facility] Plan of Treatment: Future Appointments (+ 6 months) and Future Tests (+/- 45 days) The Plan of Treatment section includes future care activities for the patient from all [place] treatmentfacilities. This section includes future appointments and future orders which are active, pending or scheduled. Future Appointments This section includes appointments that were scheduled to occur 6 months from the date of the Encounter, up to a maximum of 20 appointments. The data comes from all [facility]. Appointment Date/Time Appointment Type Appointme nt Facility Name October 22, 2023 10:00 AM AMBULATORY - SURGERY [facility] October 24, 2023 01:30 PM AMBULATORY - MEDICINE [facility] Nov 05, 2023 10:00 AM AMBULATORY - SURGERY [facility] Nov 12, 2023 11:00 AM AMBULATORY - MEDICINE [facility] Nov 21, 2023 01:00 PM AMBULATORY - NONE [facility] Dec 12, 2023 02:00 PM AMBULATORY - NONE [facility] Dec 17, 2023 11:00 AM AMBULATORY - SURGERY [facility] Dec 19, 2023 01:00 PM AMBULATORY - NONE [facility] Dec 19, 2023 03:00 PM AMBULATORY - MEDICINE [facility] Dec 23, 2023 10:00 AM AMBULATORY - MEDICINE [facility] Dec 26, 2023 01:00 PM AMBULATORY - NONE [facility] Dec 31, 2023 02:00 PM AMBULATORY - NONE [facility] Jan 02, 2024 02:00 PM AMBULATORY - NONE [facility] Jan 03, 2024 01:30 PM AMBULATORY - MEDICINE [facility] Jan 09, 2024 01:00 PM AMBULATORY - NONE [facility] Jan 22, 2024 01:15 PM AMBULATORY - MEDICINE [facility] Mar 19, 2024 04:30 PM AMBULATORY - MEDICINE [facility] Apr 08, 2024 02:30 PM AMBULATORY - MEDICINE [facility] Vital Signs: All taken on the encounter date This section contains inpatient and outpatient Vital Signs collected on the date of the Encounter. Date/Time Temperature Pulse Blood Pressure Respiratory Rate SP02 Pain Height Weight Body Mass Index Source October 10, 2023 01:43 PM 97.7 62 102/68 16 93 0 260.6 33 [facility] Radiology Reports: +/- 30 days [...] the Encounter. The data comes from all [place] treatment facilities. Date/Time Radiology Report Provider Source Sep 18, 2023 03:48 PM FOOT,RIGHT,3 VIEWS OR MORE: ELI RUELAS [facility] [id number] -1955 M Exm Date: SEP 18, 2023@15:48 Req Phys: WES GARCIA Pat Loc: [facility]3 PCP (Req'g Loc) Img Loc: [facility] Service: Unknown (Case [id number] COMPLETE) FOOT,RIGHT,3 VIEWS OR MORE (RAD Detailed) CPT:40352 Proc Modifiers : RIGHT Reason for Study: Right foot pain Clinical History: Right foot pain, localized at instep Report Status: Verified Date Reported: SEP 21, 2023 Date Verified: SEP 21, 2023 Gun Club Manager E-Sig:/ES/Amy Trevino MD Report: FINDINGS: There is mild hallux valgus deformity and spur formation is seen at plantar aspect. No other significant bone or joint abnormality is demonstrated. No significant acute findings or evidence of recent bone injury. Impression: Mild hallux valgus deformity and calcaneal spur is noted without significant acute findings. Primary Interpreting Staff: Amy Trevino MD, Radiologist (Gun Club Manager) /QMB AMY TREVINO [facility] Encounter Notes: All associated [...] perform stress testing /loreta/ MARIANO VALDEZ MD MOLDING ROOM SUPERVISOR Signed: 10/10/2023 14:37 /es/ JACOBO TELLO MD,[facility] STAFF KIT ASSEMBLER Cosigned: 10/10/2023 14:43 Receipt Acknowledged By: 10/10/2023 15:58 /loreta/ WES [facility] ADULT NURSE PRACTITIONER --- Original Document [...] BY MOUTH EVERY ACTIVE EVENING 4) Non-VA HBKUWFGSTFLO59.5/VILANTEROL 25MCG 30D INH 1 ACTIVE PUFF ORAL [...] completed, the results will be found in [facility]. # HEALTH PROMOTION/HEALTH MAINTENANCE & EDUCATION [...] PCP (primary provider). /loreta/ MARIANO VALDEZ MD MOLDING ROOM SUPERVISOR Signed: 10/10/2023 14:36 /loreta/ JACOBO TELLO MD,[facility] STAFF KIT ASSEMBLER Cosigned: 10/10/2023 14:42 10/10/2023 ADDENDUM STATUS: COMPLETED Cardiology Attending Note I saw, interviewed and examined Mr. Ruelas with the Manager Contracting, Dr. Mariano Valdez. I have reviewed the pt's clinical data including the ECG's, stress, Cath and Echo (when available) with sql server bi developer. I have reviewed Dr. Mariano Valdez's note and agree with the history, physical findings and the initial assessment and plan. ELI RUELAS is doing stable from cardiac standpoint. Will review his records before further work up. /argelia TELLO MD,[facility] STAFF KIT ASSEMBLER Signed: 10/10/2023 14:44 10/10/2023 ADDENDUM STATUS: COMPLETED Ordered EKG to make sure he is not in A fib. /argelia VALDEZ MD MOLDING ROOM SUPERVISOR Signed: 10/10/2023 14:43 /argelia TELLO MD,[facility] STAFF KIT ASSEMBLER Cosigned: 10/10/2023 14:44 MARIANO VALDEZ [facility] October 10, 2023 02:07 PM CARDIOLOGY CONSULT : LOCAL TITLE: CARDIOLOGY OUTPATIENT CONSULT [facility] STANDARD TITLE: CARDIOLOGY CONSULT DATE OF NOTE: [...] a heart attack and went to a [facility] hospital where work up was done [...] BY MOUTH EVERY ACTIVE EVENING 4) Non-VA KCVINYZKDAKL22.5/VILANTEROL 25MCG 30D INH 1 ACTIVE PUFF ORAL [...] completed, the results will be found in [facility]. # HEALTH PROMOTION/HEALTH MAINTENANCE & EDUCATION [...] PCP (primary provider). /loreta/ MARIANO VALDEZ MD MOLDING ROOM SUPERVISOR Signed: 10/10/2023 14:36 /loreta/ JACOBO TELLO MD,[facility] STAFF KIT ASSEMBLER Cosigned: 10/10/2023 14:42 10/10/2023 ADDENDUM STATUS: COMPLETED [...] to perform stress testing /argelia VALDEZ MD MOLDING ROOM SUPERVISOR Signed: 10/10/2023 14:37 /argelia TELLO MD,[facility] STAFF KIT ASSEMBLER Cosigned: 10/10/2023 14:43 Receipt Acknowledged By: 10/10/2023 15:58 /loreta/ WES [facility] ADULT NURSE PRACTITIONER 10/10/2023 ADDENDUM STATUS: COMPLETED Cardiology Attending Note I saw, interviewed and examined Mr. Ruelas with the Manager Contracting, Dr. Mariano Valdez. I have reviewed the pt's clinical data including the ECG's, stress, Cath and Echo (when available) with sql server bi developer. I have reviewed Dr. Mariano Valdez's note and agree with the history, physical findings and the initial assessment and plan. ELI RUELAS is doing stable from cardiac standpoint. Will review his records before further work up. /argelia TELLO MD,[facility] STAFF KIT ASSEMBLER Signed: 10/10/2023 14:44 10/10/2023 ADDENDUM STATUS: COMPLETED Ordered EKG to make sure he is not in A fib. /argelia VALDEZ MD MOLDING ROOM SUPERVISOR Signed: 10/10/2023 14:43 /argelia TELLO MD,[facility] STAFF KIT ASSEMBLER Cosigned: 10/10/2023 14:44 11/07/2023 ADDENDUM STATUS: COMPLETED Patient had amourax fugax. Also has had prior CVA, is getting carotid US, also will need SWATI to look for causes of cryptogenic stroke and loop recorder. Will change telephome visit to face to face visit to discuss these. /argelia VALDEZ MD MOLDING ROOM SUPERVISOR Signed: 11/07/2023 12:40 /argelia TELLO MD,[facility] STAFF KIT ASSEMBLER Cosigned: 11/08/2023 08:29 MARIANO VALDEZ [facility]
--- OUTSIDE RECORDS SUMMARY | 2024-09-22 15:07 | XMS_ITS | Encounter Summary ---
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 ([place] Organization [facility] Address [address] [place] [address] Care Team Providers Care Byproducts Pump Operator Name Role Phone JESSICA KAY Primary [...] ACTIV E [place] HIGH Jun 03, 2013 [id number] [phone] EMMAMICHELLE DiamondROSITA SPOUSE MEDICARE (WNR) MEDICARE (M) PART B Jul 04, 2016 PART B [id number] EMMAMICHELLE Diamond,ELI PATIENT MEDICARE (WNR) MEDICARE (M) PART A Jul 04, 2016 PART A [id number] EMMAMICHELLE Diamond,ELI PATIENT MEDICARE (WNR) MEDICARE (M) PART A Jul 04, 2016 PART A [id number] [phone] EMMASO N,ELI PATIENT MEDICARE (WNR) MEDICARE (M) PART A Jul 04, 2016 PART A [id number] EMMASO N,ELI PATIENT MEDICARE (WNR) MEDICARE (M) PART B Jul 04, 2016 PART B [id number] EMMASO N,ELI PATIENT MEDICARE (WNR) MEDICARE (M) PART B Jul 04, 2016 PART B [id number] RICHARDSO N,ELI PATIENT MEDICARE (WNR) MEDICARE (M) PART A Jul 04, 2016 PART A [id number] [phone] EMMASO N,ELI PATIENT MEDICARE (WNR) MEDICARE (M) PART B Jul 04, 2016 PART B [id number] EMMASO N,ELI PATIENT PRIME THERAPEUTI CS RX PRESCRIPT ION RX PLAN Jun 03, 2013 [id number] [phone] EMMASO N,ELI PATIENT Selected Encounter This section includes the information on record at [place] for the Encounter. Date/Time Encounter Type Encounter Description Reason Pro vider Source Sep 21, 2024 08:33 AM Outpatient Encounter ONCOLOGY/TUMOR IHE Encounter Template Text not used by [place] Plan of Treatment: Future Appointments (+ 6 months) and Future Tests (+/- 45 days) The Plan of Treatment section includes future care activities for the patient from all [place] treatmentfacilities. This section includes future appointments and future orders which are active, pending or scheduled. Future Appointments This section includes appointments that were scheduled to occur 6 months from the date of the Encounter, up to a maximum of 20 appointments. The data comes from all [place] treatment facilities. Appointment Date/Time Appointment Type Appointme nt Facility Name Jan 28, 2025 02:00 PM [facility] 2025 01:00 PM AMBULATORY - MEDICINE [facility] Active, Pending, and Scheduled Orders This section includes a listing of several types of active, pending, and scheduled orders, including clinic medications orders, diagnostic test orders, procedure orders and consult orders; where the start date of the order is 45 days before the date of the Encounter or 45 days after the date of theEncounter. The data comes from all [place] treatment facilities. Test Date/Time Test Type Test Details Facility Name Sep 14, 2024 11:02 AM Consult Order [facility] CONSULT OUTPT [facility] Cons Product Scientist's Choice [facility] Lab Results: +/- 30 days of [...] Type Comment Sep 01, 2024 12:48 PM [facility] BASIC METABOLIC PANEL PLASMA Specimen Type: PLASMA Comment: No hemolysis noted. Ordering Provider: PASTOR ROBERTSON Report Released Date/Time: Sep 01, 2024 12:22 PM Reporting Lab: [address] [address] Performing Lab: [address] [address] CREATININE 1.28 mg/dL 0.7-1.3 UREA NITROGEN 21.6 mg/dL 9.0-25.0 GLUCOSE 148 mg/dL H 72-99 SODIUM 141 meq/L 136-145 POTASSIUM 5.1 meq/L H 3.5-5 CHLORIDE 105 meq/L 98-107 CARBON DIOXIDE 30 meq/L 22-31 CALCIUM 9.5 mg/dL 8.4-10.4 EGFR (CKD-EPI 2020) 61.3 >60 Aug 28, 2024 02:18 PM [facility] BRAIN NATRIURETIC PEPTIDE PLASMA Specimen Type : PLASMA No comment entered. Ordering Provider: PASTOR ROBERTSON Report Released Date/Time: Aug 28, 2024 01:59 PM Reporting Lab: [address] [address] Performing Lab: [address] [address] BRAIN NATRIURETIC PEPTIDE 356.1 pg/mL H 0- 100 Aug 28, 2024 02:18 PM [facility] BASIC METABOLIC PANEL PLASMA Specimen Type: PL ASMA Comment: No hemolysis noted. Ordering Provider: PASTOR ROBERTSON Report Released Date/Time: Aug 28, 2024 01:59 PM Reporting Lab: [address] [address] Performing Lab: [address] [address] CREATININE 1.09 mg/dL 0.7-1.3 UREA NITROGEN 16.4 mg/dL 9.0-25.0 GLUCOSE 110 mg/dL H 72-99 SODIUM 139 meq/L 136-145 POTASSIUM 4.7 meq/L 3.5-5 CHLORIDE 105 meq/L 98-107 CARBON DIOXIDE 27 meq/L 22-31 CALCIUM 9.1 mg/dL 8.4-10.4 EGFR (CKD-EPI 2020) 74.4 >60 Aug 28, 2024 02:18 PM [facility] CBC BLOOD Specimen Type: BLOOD No comment entered. Ordering Provider: PASTOR ROBERTSON Report Released Date/Time: Aug 28, 2024 01:59 PM Reporting Lab: [address] [address] Performing Lab: [address] [address] WBC 11.9 10*3/uL H 3.6-11.2 RBC 4.47 [...] the Encounter. The data comes from all [place] treatment facilities. Date/Time Radiology Report Provider Source Aug 28, 2024 11:[address] THORAX, DIAGNOS TIC, W/CONTRAST: RUELAS,ELI JOSY [id number] -1955 M Exm Date: AUG 28, 2024@11:50 Req Phys: ALEM LUTHER Loc: [facility]AL (R Img Loc: [facility] IMAGING [facility] Service: Unknown [address] [address] (Case [id number] COMPLETE) CT THORAX, DIAGNOSTIC, W/CONTRAS(CT Detailed) CPT:40540 Contrast Media : Non-ionic Iodinated Reason for Study: Surveillance post resection of jennifer ca 2020 Clinical History: Responsible Attending: Shante Attending Contact Number: [phone] Resident Contact Number: Allergies listed in CPRS chart: CHANTIX Creatinine: CREATININE 1.16 mg/dL 02/15/2023 11:44 /eGFR: STL EGFR (within one year). CREATININE 1.16 mg/dL (02/15/23 11:44) Wt: 264 lb [119.75 kg] (08/30/2023 14:51) History of: Renal failure, chronic or acute renal disease: NO Report Status: Verified Date Reported: AUG 30, 2024 Date Verified: AUG 30, 2024 Supervisor Securities Vault E-Sig:/ES/Oswald Coronado MD Report: INDICATION: Surveillance post [...] abdominal process. Dictated by Dakota Hampton MD (radiology physician assistant). I, Oswald Coronado, have reviewed the images and report and concur with these findings. Primary Interpreting Staff: Oswald Coronado MD, Radiologist (Supervisor [employer] Vault) Primary Interpreting Resident: Resident ANN MARIE Physician /OSWALD HAMMONDS [facility] Encounter Notes: All associated encounter notes This section contains the clinical notes associated to the Encounter. Date/Time Encounter Note(s) Provider Source Sep 21, 2024 08:33 AM ADMINISTRATIVE NOT E: LOCAL TITLE: ADMINISTRATIVE [facility] STANDARD TITLE: ADMINISTRATIVE NOTE DATE OF NOTE: SEP 21, 2024@08:33 ENTRY DATE: SEP 21, 2024@08:33:57 AUTHOR: KVNG CID COSIGNER: URGENCY: STATUS: COMPLETED SUBJECT: NO CONTACT LETTER Eli Ruelas [address] [place] [address] [place], [place] [address] Sep 21, 2024 Dear Eli Ruelas, You have been referred for a consultation to the [facility] CONSULT [facility] at the [facility]. We would like to schedule a consult appointment with you. If we do not hear from you by October 05, 2024, we will assume that you are not interested in having the consultation and the referral will be discontinued. Please call our office at [phone] between 8 am and 4 pm Saturday through Saturday. If you received this letter after you have spoken to us, please disregard this letter. Sincerely yours, /loreta/ KVNG CID ADVANCED DOCK GRADER Signed: 09/21/2024 08:34 KVNG CID [facility]
[2024-09-22 15:22] VITALS: BP 152/109; PULSE 76; RESP 22; O2SAT 97
--- NOTE | 2024-09-22 16:10 | ECG_ITS ---
Test Date: 2024-09-22 16:17:56 Measurements Intervals [place] Rate: 66 P: 0 CT: 0 QRS: -62 QRSD: 140 T: 33 QT: 466 QTc: 491 Interpretive Statements ATRIAL FLUTTER/TACHYCARDIA WITH NORMAL VENTRICULAR VENTRICULAR RESPONSE RIGHT BUNDLE BRANCH BLOCK LEFT ANTERIOR FASCICULAR BLOCK ABNORMAL ECG Compared to ECG 09/22/2024 13:28:56 NO SIGNIFICANT CHANGE Electronically Signed On 09-22-2024 16:20:21 CDT by Aleksey Salas D.O.
--- OUTSIDE RECORDS SUMMARY | 2024-09-22 16:11 | XMS_ITS | Clinical Summary ---
Author Organization [facility] Address [address] [place] [address] Care Team Providers Care Dumbwaiter Operator Name Role Phone Neymar Fuentes MD Primary Care Provider [phone] Allergies No known active allergies Medications clopidogreL [...] on file Legal Sex Male 1:08 AM PROPERTY COORDINATOR Gender Identity Not on file Sexual Orientation [...] 03/02/2020, 02/09/2019, 02/04/2018, Additional history exists Insurance [facility] [place] [facility] [place] [facility] DUAL DE [employer] [facility] Care Teams Dumbwaiter Operator Relationship Specialty Start Date End Date Neymar Fuentes MD PCP - General Family Medicine 10/25/20
--- OUTSIDE RECORDS SUMMARY | 2024-09-22 16:11 | XMS_ITS | Referral Summary ---
Author Organization [facility] Address [address] [place] [address] Care Team Providers Care Security Incident Response Specialist Name Role Phone Neymar Fuentes MD Primary Care Provider [phone] Allergies No known active allergies Medications clopidogreL [...] on file Legal Sex Male 1:08 AM [employer] Gender Identity Not on file Sexual Orientation [...] screening for malignant neoplasm of colon Insurance [facility] [place] [place] [facility] [place] Care Teams Security Incident Response Specialist Relationship Specialty Start Date End Date Neymar Fuentes MD PCP - General Family Medicine 10/25/20
--- OUTSIDE RECORDS SUMMARY | 2024-09-22 16:11 | XMS_ITS | Encounter Summary ---
Author Organization [facility] Address [address] [place] [id number] Care Team Providers Care Pari Mutuel Clerk Name Role Phone Jm Cedillo MD Primary Care Provider [phone] Encounter Details Date Type Department Care Team (Late st Contact Info) Description 08/17/2017 Abstract [facility] CONVERSION [address] [place] [address] , Generic MD Rob Social History Tobacco [...] on filedocumented in this encounter Care Teams Pari Mutuel Clerk Relationship Specialty Start Date End Date Jm Cedillo MD PCP - General INTERNAL MEDICINE 12/23/18 documented as of this encounter
--- OUTSIDE RECORDS SUMMARY | 2024-09-22 16:11 | XMS_ITS | Continuity of Care Document ---
Author Name 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 Kolb [facility] Anxiety Active Condition [facility] Asthma Active Condition [facility] Asthma (SNOMED CT 431800279) Active Condition [facility] Chronic kidney disease stage 3A Active Condition [facility] Chronic obstructive lung disease Active Condition [facility] CVA - Cerebrovascular accident Active Condition [facility] Daily headache Active Condition [facility] Deficiency of vitamin D3 Active Condition [facility] Dyspnea Active Condition [facility] Erectile dysfunction Active Condition [facility] Essential hypertension Active Condition [facility] Hepatitis C Active Condition [facility] Hepatitis C Active Condition Mar 09, 2019 Entered By: GEE HATFIELD Comment: in remission [facility] Histoplasmosis Active Condition Jul 052016 Entered By: KISHORE AGUAYO Comment: Hx. of left lower lobe wedge rescetions in the mid per notes from Dr. Mio Palencia [facility] History of cerebrovascular accident Active Condition [facility] History of colonic polyp Active Condition [facility] History of polyp of colon Active Condition [facility] History of right hip replacement Active Condition [facility] - Hyperlipidaemia Active Condition [facility] Hyperlipidemia Active Condition [facility] Hypertensive heart AND chronic kidney disease stage 3 Active Condition [facility] Knee pain (SNOMED CT 99508175) Active Condition [facility] Lung cancer Active Condition Apr 05, 2021 Entered By: WES GARCIA Comment: RLL - Lobectomy - August 2020 [facility] Multiple pulmonary nodules Active Condition [facility] Nicotine dependence Active Condition [facility] Osteoarthritis of joint of left shoulder region Active Condition [facility] PAF - Paroxysmal atrial fibrillation Active Condition [facility] Pain in right hip joint Active Condition Aug 09, 2016 Entered By: KISHORE AGUAYO Comment: 04/04/2016- right toal hip arthroplasty by Dr. Irwin Kolb [facility] Pain of left shoulder joint Active Condition [facility] Periventricular hemorrhagic venous infarct Active Condition [facility] periventricular infarction Active Condition [facility] Peyronie's disease Active Condition [facility] Prediabetes Active Condition [facility] Shoulder pain Active Condition [facility] Tobacco dependence, continuous Active Condition [facility] Tobacco use Active Condition [facility] Vitamin D deficiency Active Condition [facility] Benign essential hypertension Inactive Condition 04/05/2021 [facility] Diagnosis: ICD-10-CM I48.0 Paroxysmal atrial fibrillation Active Diagnosis [facility] Diagnosis: ICD-10-CM J44.9 Chronic obstructive pulmonary disease, unspecified Active Diagnosis [facility] Diagnosis: ICD-10-CM R06.00 Dyspnea, unspecified Active Diagnosis [facility] Diagnosis: ICD-10-CM Z51.81 Encounter for therapeutic drug level monitoring Active Diagnosis [facility] Diagnosis: ICD-10-CM J44.1 Chronic obstructive pulmonary disease w (acute) exacerbation Active Diagnosis [facility] Diagnosis: ICD-10-CM G46.4 Cerebellar stroke syndrome Active Diagnosis [facility] Diagnosis: ICD-10-CM I48.91 Unspecified atrial fibrillation Active Diagnosis [facility] Diagnosis: ICD-10-CM I63.9 Cerebral infarction, unspecified Active Diagnosis [facility] Diagnosis: ICD-10-CM K63.5 Polyp of colon Active Diagnosis 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 Diagnosis: ICD-10-CM F17.200 Nicotine dependence, unspecified, uncomplicated Active Diagnosis [facility] Diagnosis: ICD-10-CM F17.210 Nicotine dependence, cigarettes, uncomplicated Active Diagnosis [facility] Diagnosis: ICD-10-CM Z86.010 Personal history of colonic polyps Active Diagnosis [facility] Diagnosis: ICD-10-CM H35.9 Unspecified retinal disorder Active Diagnosis [facility] Diagnosis: ICD-10-CM H34.211 Partial retinal artery occlusion, right eye Active Diagnosis [facility] Diagnosis: ICD-10-CM 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 RESPIR ATORY (INHAL ATION) ACTIVE 04/09/2025 [id number] MCQUAMANDA WES 2023 3 [facility] ALBUTEROL SO4 90MCG/ACTUA T (CFC-F) INHL,ORAL,8 .5GM INHALE 2 PUFFS ORAL INHALATI ON FOUR TIMES A DAY SHAKE WELL. RINSE MOUTHPIE CE FREQUENT LY TO PREVENT CLOGGING . RESPIR ATORY (INHAL ATION) DISCONT INUED 09/18/2024 [id number] [facility] 3 [facility] APIXABAN 5MG TAB TAKE ONE TABLET BY MOUTH TWICE A DAY FOR ANTICOAG ULATION ORAL ACTIVE 08/11/2025 [id number] 5 [facility] 2024 60 [facility] APIXABAN 5MG TAB TAKE ONE TABLET BY MOUTH TWICE A DAY FOR ANTICOAG ULATION ORAL DISCONT INUED 05/21/2025 [id number] QUAID, WES 2023 60 [facility] ASPIRIN 81MG TAB,EC TAKE ONE TABLET BY MOUTH ONCE A DAY ORAL ACTIVE [facility] 2024 [facility] BISACODYL 5MG TAB,EC TAKE TWO TABLETS BY MOUTH ONE TIME TAKE BISACODY L TABLETS AT 4PM ON AFTERNOO N PRIOR TO TEST. CALL WITH ANY QUESTION S ABOUT THESE INSTRUCT IONS. MAIL TAKE BISACODY L TABLETS AT 4PM ON AFTERNOO N PRIOR TO TEST. CALL WITH ANY QUESTION S ABOUT THESE INSTRUCT IONS. MAIL ORAL 12/05/2023 [id number] 4 SHARON BRANDT [address] [facility] BUMETANIDE 1MG TAB TAKE ONE-HALF TABLET BY MOUTH EVERY MORNING FOR FLUID RETENTIO N (EDEMA) ORAL ACTIVE 10/02/2024 [id number] 5 MARCELOBRA NDT T [address] [facility] BUMETANIDE 1MG TAB TAKE ONE-HALF TABLET BY MOUTH EVERY MORNING FOR FLUID RETENTIO N (EDEMA) ORAL DISCONT INUED 09/27/2024 [id number] 5 CLAUDIA ROBERTSON NDT T [address] [facility] BUPROPION HCL 150MG 12HR TAB,SA TAKE ONE TABLET BY MOUTH ONCE A DAY FOR 3 DAYS, THEN TAKE ONE TABLET TWICE A DAY FOR SMOKING CESSATIO N. SWALLOW WHOLE - DO NOT CRUSH OR CHEW. ORAL DISCONT INUED 09/10/2024 [id number] 4 KOKOAMI A [address] [facility] BUPROPION HCL 150MG 12HR TAB,SA TAKE ONE TABLET BY MOUTH TWICE A DAY FOR SMOKING CESSATIO N. SWALLOW WHOLE - DO NOT CRUSH OR CHEW. ORAL 09/10/2024 [id number] 4 AMI SUTHERLAND A [address] [facility] CLOPIDOGREL BISULFATE 75MG TAB TAKE ONE TABLET BY MOUTH DAILY ORAL ACTIVE Zoraida AGUAYO 2016 [facility] HYDROCODONE 7.5MG/ACETA MINOPHEN 325MG TAB TAKE ONE TABLET BY MOUTH EVERY 4 HOURS NEEDED ORAL ACTIVE Zoraida AGUAYO 2016 [facility] HYDROXYZINE HCL 10MG *HI-ALERT* TAB TAKE 25MG BY MOUTH THREE TIMES A DAY NEEDED ORAL ACTIVE Zoraida AGUAYO 2016 [facility] LISINOPRIL 20MG TAB TAKE ONE-HALF TABLET BY MOUTH DAILY ORAL ACTIVE Zoraida AGUAYO 2016 [facility] LISINOPRIL 40MG TAB TAKE ONE-HALF TABLET BY MOUTH ONCE A DAY ORAL ACTIVE Ramiro HATFIELD 2018 [facility] Lobo METHOCARBAM OL 500MG TAB TAKE 1 TABLET BY MOUTH THREE TIMES A DAY NEEDED FOR MUSCLE SPASM ORAL ACTIVE 04/09/2025 [id number] 5 WES GARCIA 2023 90 [facility] METHOCARBAM OL 500MG TAB TAKE 1 TABLET BY MOUTH THREE TIMES A DAY NEEDED ORAL DISCONT INUED 09/18/2024 [id number] 4 GERMANIARedd WES 2023 90 [facility] METOPROLOL SUCCINATE 50MG TAB,SA TAKE ONE-HALF TABLET BY MOUTH ONCE A DAY ORAL ACTIVE SA RUMA VIZCARRA 2024 [facility] PEG-3350/EL ECTROLYTES PWDR MIX AND [...] TEST. READ YOUR INSTRUCT IONS!) ORAL 12/05/2023 [id number] 4 SHARON BRANDT [address] [facility] POTASSIUM CHLORIDE 20MEQ TAB,SA (DISPERSIBL E) TAKE TWO TABLETS BY MOUTH ONCE A DAY FOR DESI Han SUPPLEME NTATION TAKE WITH FOOD ORAL ACTIVE 09/27/2024 [id number] 5 CLAUDIA ROBERTSON NDT T [address] [facility] PREDNISONE 10MG TAB TAKE TWO TABLETS BY MOUTH EVERY MORNING FOR 2 DAYS, THEN TAKE ONE TABLET EVERY MORNING FOR 6 DAYS, THEN TAKE ONE-HALF TABLET EVERY MORNING FOR 6 DAYS FOR COPD EXACERBA TION TAKE WITH FOOD OR MILK. ORAL ACTIVE 09/27/2024 [id number] 5 CLAUDIA ROBERTSON NDT T [address] [facility] PREDNISONE 10MG TAB TAKE FIVE [...] FOOD OR MILK. ORAL DISCONT INUED 09/12/2024 [id number] 5 ANAWES PATEL 2024 93 [facility] ROSUVASTATI N CA 40MG TAB TAKE ONE-HALF TABLET BY MOUTH EVERY EVENING ORAL ACTIVE LEFTY VALLADARES HELLE L 2020 [facility] SIMETHICONE 80MG TAB,CHEW CHEW AND SWALLOW FOUR TABLETS BY MOUTH DIRECTED FOR TWO DOSES BEFORE GI PROCEDUR E ORAL 12/05/2023 [id number] SHARON BRANDT [address] [facility] UMECLIDINIU M 62.5MCG/SOHEILA ANTEROL 25MCG/ACTUA T INH,ORAL,30 D INHALE 1 PUFF ORAL INHALATI ON ONCE A DAY RESPIR ATORY (INHAL ATION) ACTIVE LEFTY VALLADARES HELLE L 2020 [facility] Allergies, Adverse Reactions, Alerts Combined list of allergies from 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 It does not include entries that were removed or entered in error. Substance Category Reaction Severity Reaction type Status Date Reported Comments Source CHANTIX Propensity to adverse reactions to drug (finding) Nightmares active [address] [facility] Immunizations Combined list of available immunizations from the 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 Immunization Series Date Given Administered By Site Reaction Lot Number CVX Code Drug Knowledge Architect Status Comments Source INFLUENZA, HIGH-DOSE, TRIVALENT, PF 2023 OVERTURF,BRIGITTE E A RIGHT DELTO ID [id number] 135 complet ed [facility] COVID-19 (PFIZER), MRNA, LNP-S, PF, AGUILAR-SUCROSE, 30 MCG/0.3 ML (AGES 12+ YEARS) 2023 309 complet ed HISTORICA L INFORMATI ON - FROM PATIENT'S RECALL, [facility] COVID-19 (Stumpedia), MRNA, LNP-S, PF, AGUILAR-SUCROSE, 30 MCG/0.3 ML (AGES 12+ YEARS) 1 2022 309 complet ed HISTORICA L INFORMATI ON - FROM PATIENT'S RECALL, [facility] INFLUENZA, UNSPECIFIED FORMULATION 2022 88 complet ed HISTORICA L INFORMATI ON - [facility] RECALL, [facility] INFLUENZA, UNSPECIFIED FORMULATION 2021 88 complet ed HISTORICA L INFORMATI ON - FROM PATIENT'S RECALL, [facility] COVID-19, MRNA, LNP-S, BIVALENT BOOSTER, PF, 30 MCG/0.3 ML DOSE 1 2021 300 complet ed PFR; [id number]; 3 [facility] COVID-19 (Stumpedia), MRNA, LNP-S, PF, 30 MCG/0.3 ML DOSE, AGUILAR-SUCROSE (AGES 12+ YEARS) 4 [address] [facility] ZOSTER RECOMBINANT 2 2021 187 complet ed [facility] COVID-19 (Stumpedia), MRNA, LNP-S, PF, 30 MCG/0.3 ML DOSE 3 2020 208 complet ed PFR; [id number]; 2 [facility] INFLUENZA, INJECTABLE, QUADRIVALENT, PRESERVATIVE FREE 2020 150 complet ed [facility] ZOSTER RECOMBINANT 1 2020 187 complet ed [facility] COVID-19 (Stumpedia), MRNA, LNP-S, PF, 30 MCG/0.3 ML DOSE 2 2020 208 complet ed [facility] COVID-19 (Stumpedia), MRNA, LNP-S, PF, 30 MCG/0.3 ML DOSE 1 [address] [facility] INFLUENZA, UNSPECIFIED FORMULATION [address] [facility] TDAP 1 2018 115 complet ed HISTORICA L INFORMATI ON - FROM OTHER REGISTRY, [facility] INFLUENZA, UNSPECIFIED FORMULATION [address] [facility] INFLUENZA, SEASONAL, INJECTABLE, PRESERVATIVE FREE 2015 140 complet ed [facility] INFLUENZA, UNSPECIFIED FORMULATION 2014 88 complet ed [facility] PNEUMOCOCCAL CONJUGATE PCV 13 2014 133 complet ed notes dated 07/25/[address] Mio Palencia [facility] PNEUMOCOCCAL CONJUGATE PCV 13 2014 [address] [facility] PNEUMOCOCCAL POLYSACCHARID E PPV23 [address] [facility] INFLUENZA, UNSPECIFIED FORMULATION 2013 88 complet ed [facility] INFLUENZA, UNSPECIFIED FORMULATION 2013 88 complet ed [facility] PNEUMOCOCCAL POLYSACCHARID E PPV23 2012 33 complet ed [facility] ZOSTER LIVE 2012 121 complet ed [facility] ZOSTER LIVE 2009 121 complet ed [facility] Results Combined list of [...] Sep 01, 2024 12:22 PM Reporting Lab: [facility] [address] [facility] [address] Performing Lab: [facility] [address] [facility] [address] [facility] BASIC METABOLIC PANEL UREA NITROGEN [MASS/VOLUM E] IN SERUM OR PLASMA 21.6 mg/dL 9.0 - 25.0 09/01 Specimen Type: PLASMA Comment: No hemolysis noted. Ordering Provider: MAGO ROBERTSON Report Released Date/Time: Sep 01, 2024 12:22 PM Reporting Lab: [facility] [address] [place] [phone] Performing Lab: [facility] [address] [place] [phone] [facility] BASIC METABOLIC PANEL GLUCOSE [MASS/VOLUM E] IN SERUM OR PLASMA 148 mg/dL 72 - 99 09/01 H Specimen Type: PLASMA Comment: No hemolysis noted. Ordering Provider: MAGO ROBERTSON Report Released Date/Time: Sep 01, 2024 12:22 PM Reporting Lab: [address] [address] Performing Lab: [address] [address] [facility] BASIC METABOLIC PANEL SODIUM [MOLES/VOLU ME] IN SERUM OR PLASMA 141 meq/L 136 - 145 09/01 Specimen Type: PLASMA Comment: No hemolysis noted. Ordering Provider: MAGO ROBERTSON Report Released Date/Time: Sep 01, 2024 12:22 PM Reporting Lab: [address] [address] Performing Lab: [address] [address] [facility] BASIC METABOLIC PANEL POTASSIUM [MOLES/VOLU ME] IN SERUM OR PLASMA 5.1 meq/L 3.5 - 5 09/01 H Specimen Type: PLASMA Comment: No hemolysis noted. Ordering Provider: MAGO ROBERTSON Report Released Date/Time: Sep 01, 2024 12:22 PM Reporting Lab: [address] [address] Performing Lab: [facility] [address] [place] [address] [facility] BASIC METABOLIC PANEL CHLORIDE [MOLES/VOLU ME] IN SERUM OR PLASMA 105 meq/L 98 - 107 09/01 Specimen Type: PLASMA Comment: No hemolysis noted. Ordering Provider: MAGO ROBERTSON Report Released Date/Time: Sep 01, 2024 12:22 PM Reporting Lab: [address] [address] Performing Lab: [facility] [address] [place] [address] [facility] BASIC METABOLIC PANEL CARBON DIOXIDE, TOTAL [MOLES/VOLU ME] IN SERUM OR PLASMA 30 meq/L 22 - 31 09/01 Specimen Type: PLASMA Comment: No hemolysis noted. Ordering Provider: MAGO ROBERTSON Report Released Date/Time: Sep 01, 2024 12:22 PM Reporting Lab: [address] [address] Performing Lab: [address] [address] [facility] BASIC METABOLIC PANEL CALCIUM [MASS/VOLUM E] IN SERUM OR PLASMA 9.5 mg/dL 8.4 - 10.4 09/01 Specimen Type: PLASMA Comment: No hemolysis noted. Ordering Provider: MAGO ROBERTSON Report Released Date/Time: Sep 01, 2024 12:22 PM Reporting Lab: [address] [address] Performing Lab: [address] [address] [facility] BASIC METABOLIC PANEL GLOMERULAR FILTRATION RATE/1.73 SQ M.PREDICTED [VOLUME RATE/AREA] IN SERUM, PLASMA OR BLOOD BY CREATININE- BASED FORMULA (CKD-EPI 2020) 61.3 60 09/01 Specimen Type: PLASMA Comment: No hemolysis noted. Ordering Provider: MAGO ROBERTSON Report Released Date/Time: Sep 01, 2024 12:22 PM Reporting Lab: [address] [address] Performing Lab: [address] [place] [address] [facility] BASIC METABOLIC PANEL CREATININE [MASS/VOLUM E] IN SERUM OR PLASMA 1.09 mg/dL 0.7 - 1.3 08/28 Specimen Type: PLASMA Comment: No hemolysis noted. Ordering Provider: MAGO ROBERTSON Report Released Date/Time: Aug 28, 2024 01:59 PM Reporting Lab: [place] [address] [facility] [address] Performing Lab: [place] [address] [facility] [address] [facility] BASIC METABOLIC PANEL UREA NITROGEN [MASS/VOLUM E] IN SERUM OR PLASMA 16.4 mg/dL 9.0 - 25.0 08/28 Specimen Type: PLASMA Comment: No hemolysis noted. Ordering Provider: MAGO ROBERTSON Report Released Date/Time: Aug 28, 2024 01:59 PM Reporting Lab: [place] [address] [facility] [address] Performing Lab: [place] [address] [facility] [address] [facility] BASIC METABOLIC PANEL GLUCOSE [MASS/VOLUM E] IN SERUM OR PLASMA 110 mg/dL 72 - 99 08/28 H Specimen Type: PLASMA Comment: No hemolysis noted. Ordering Provider: MAGO ROBERTSON Report Released Date/Time: Aug 28, 2024 01:59 PM Reporting Lab: [place] [address] [facility] [address] Performing Lab: [place] [address] [facility] [address] [facility] BASIC METABOLIC PANEL SODIUM [MOLES/VOLU ME] IN SERUM OR PLASMA 139 meq/L 136 - 145 08/28 Specimen Type: PLASMA Comment: No hemolysis noted. Ordering Provider: MAGO ROBERTSON Report Released Date/Time: Aug 28, 2024 01:59 PM Reporting Lab: [address] [address] Performing Lab: [facility] [address] [facility] [address] [facility] BASIC METABOLIC PANEL POTASSIUM [MOLES/VOLU ME] IN SERUM OR PLASMA 4.7 meq/L 3.5 - 5 08/28 Specimen Type: PLASMA Comment: No hemolysis noted. Ordering Provider: MAGO ROBERTSON Report Released Date/Time: Aug 28, 2024 01:59 PM Reporting Lab: [address] [address] Performing Lab: [place] [address] [facility] [address] [facility] BASIC METABOLIC PANEL CHLORIDE [MOLES/VOLU ME] IN SERUM OR PLASMA 105 meq/L 98 - 107 08/28 Specimen Type: PLASMA Comment: No hemolysis noted. Ordering Provider: MAGO ROBERTSON Report Released Date/Time: Aug 28, 2024 01:59 PM Reporting Lab: [address] [address] Performing Lab: [address] [address] [facility] BASIC METABOLIC PANEL CARBON DIOXIDE, TOTAL [MOLES/VOLU ME] IN SERUM OR PLASMA 27 meq/L 22 - 31 08/28 Specimen Type: PLASMA Comment: No hemolysis noted. Ordering Provider: MAGO ROBERTSON Report Released Date/Time: Aug 28, 2024 01:59 PM Reporting Lab: [place] [address] [facility] [address] Performing Lab: [address] [address] [facility] BASIC METABOLIC PANEL CALCIUM [MASS/VOLUM E] IN SERUM OR PLASMA 9.1 mg/dL 8.4 - 10.4 08/28 Specimen Type: PLASMA Comment: No hemolysis noted. Ordering Provider: MAGO ROBERTSON Report Released Date/Time: Aug 28, 2024 01:59 PM Reporting Lab: [place] [address] [address] Performing Lab: [place] [address] [facility] [phone] [place] [address] BASIC METABOLIC PANEL GLOMERULAR FILTRATION RATE/1.73 SQ M.PREDICTED [VOLUME RATE/AREA] IN SERUM, PLASMA OR BLOOD BY CREATININE- BASED FORMULA (CKD-EPI 2020) 74.4 60 08/28 Specimen Type: PLASMA Comment: No hemolysis noted. Ordering Provider: MAGO ROBERTSON Report Released Date/Time: Aug 28, 2024 01:59 PM Reporting Lab: [place] [phone] Performing Lab: [address] [phone] [place] [address] BRAIN NATRIURETI C PEPTIDE NATRIURETIC PEPTIDE B [MASS/VOLUM E] IN SERUM OR PLASMA 356.1 pg/mL 0 - 100 08/28 H Specimen Type: PLASMA No comment entered. Ordering Provider: MAGO ROBERTSON Report Released Date/Time: Aug 28, 2024 01:59 PM Reporting Lab: [address] [address] Performing Lab: [address] [phone] [place] [address] CBC LEUKOCYTES [#/VOLUME] IN BLOOD BY AUTOMATED COUNT 11.9 10*3/u L 3.6 - 11.2 08/28 H Specimen Type: BLOOD No comment entered. Ordering Provider: MAGO ROBERTSON Report Released Date/Time: Aug 28, 2024 01:59 PM Reporting Lab: [address] [address] Performing Lab: [address] [address] [facility] CBC ERYTHROCYTE S [#/VOLUME] IN BLOOD BY AUTOMATED COUNT 4.47 10*6/u L 4.10 - 5.70 08/28 Specimen Type: BLOOD No comment entered. Ordering Provider: MAGO ROBERTSON Report Released Date/Time: Aug 28, 2024 01:59 PM Reporting Lab: [address] [address] Performing Lab: [facility] [address] [place] [address] [facility] CBC HEMOGLOBIN [MASS/VOLUM E] IN BLOOD 14.6 g/dL 13.1 - 16.8 08/28 Specimen Type: BLOOD No comment entered. Ordering Provider: MAGO ROBERTSON Report Released Date/Time: Aug 28, 2024 01:59 PM Reporting Lab: [place] [phone] Performing Lab: [address] [phone] [place] [address] CBC HEMATOCRIT [VOLUME FRACTION] OF BLOOD 46.5 38.2 - 48.4 08/28 Specimen Type: BLOOD No comment entered. Ordering Provider: MAGO ROBERTSON Report Released Date/Time: Aug 28, 2024 01:59 PM Reporting Lab: [address] [address] Performing Lab: [address] [address] [facility] CBC MCV [ENTITIC VOLUME] BY AUTOMATED COUNT 104.0 fL 80.0 - 100.0 08/28 H Specimen Type: BLOOD No comment entered. Ordering Provider: MAGO ROBERTSON Report Released Date/Time: Aug 28, 2024 01:59 PM Reporting Lab: [address] [address] Performing Lab: [address] [address] [facility] CBC MCH [ENTITIC MASS] BY AUTOMATED COUNT 32.7 pg 27.0 - 34.0 08/28 Specimen Type: BLOOD No comment entered. Ordering Provider: MARCELO,BRAN DT T Report Released Date/Time: Aug 28, 2024 01:59 PM Reporting Lab: [place] [address] [facility] [address] Performing Lab: [address] [address] [facility] CBC MCHC [MASS/VOLUM E] BY AUTOMATED COUNT 31.4 g/dL 33.0 - 36.0 08/28 L Specimen Type: BLOOD No comment entered. Ordering Provider: MAGO ROBERTSON Report Released Date/Time: Aug 28, 2024 01:59 PM Reporting Lab: [place] [address] [facility] [address] Performing Lab: [place] [address] [facility] [phone] CBC PLATELETS [#/VOLUME] IN BLOOD BY AUTOMATED COUNT 171 10*3/u L 150 - 400 08/28 Specimen Type: BLOOD No comment entered. Ordering Provider: MAGO ROBERTSON Report Released Date/Time: Aug 28, 2024 01:59 PM Reporting Lab: [place] [address] [facility] [phone] Performing Lab: [place] [address] [facility] [address] [facility] CBC PLATELET MEAN VOLUME [ENTITIC VOLUME] IN BLOOD BY AUTOMATED COUNT 10.2 fL 7.5 - 11.2 08/28 Specimen Type: BLOOD No comment entered. Ordering Provider: MAGO ROBERTSON Report Released Date/Time: Aug 28, 2024 01:59 PM Reporting Lab: [place] [address] [facility] [address] Performing Lab: [address] [address] [facility] CBC ERYTHROCYTE DISTRIBUTIO N WIDTH [RATIO] BY AUTOMATED COUNT 15.6 11.8 - 15.1 08/28 H Specimen Type: BLOOD No comment entered. Ordering Provider: MAGO ROBERTSON Report Released Date/Time: Aug 28, 2024 01:59 PM Reporting Lab: [facility] [address] [facility] [address] Performing Lab: [facility] [address] [facility] [phone] [facility] CBC LYMPHOCYTES /100 LEUKOCYTES IN BLOOD BY AUTOMATED COUNT 11 08/28 Specimen Type: BLOOD No comment entered. Ordering Provider: MAGO ROBERTSON Report Released Date/Time: Aug 28, 2024 01:59 PM Reporting Lab: [facility] [address] [facility] [address] Performing Lab: [facility] 91 [facility] [address] [facility] CBC MONOCYTES/1 00 LEUKOCYTES IN BLOOD BY AUTOMATED COUNT 6 08/28 Specimen Type: BLOOD No comment entered. Ordering Provider: MAGO ROBERTSON Report Released Date/Time: Aug 28, 2024 01:59 PM Reporting Lab: [facility] [address] [facility] [phone] Performing Lab: [facility] 91 [facility] [phone] [facility] CBC NEUTROPHILS /100 LEUKOCYTES IN BLOOD BY AUTOMATED COUNT 82 08/28 Specimen Type: BLOOD No comment entered. Ordering Provider: MAGO ROBERTSON Report Released Date/Time: Aug 28, 2024 01:59 PM Reporting Lab: [facility] [address] [facility] [phone] Performing Lab: [facility] 9[address] [facility] [address] [facility] CBC EOSINOPHILS /100 LEUKOCYTES IN BLOOD BY AUTOMATED COUNT 0 08/28 Specimen Type: BLOOD No comment entered. Ordering Provider: MAGO ROBERTSON Report Released Date/Time: Aug 28, 2024 01:59 PM Reporting Lab: [facility] 91 [facility] [phone] Performing Lab: [facility] 9[address] [facility] [phone] [facility] CBC BASOPHILS/1 00 LEUKOCYTES IN BLOOD BY AUTOMATED COUNT 0 08/28 Specimen Type: BLOOD No comment entered. Ordering Provider: MAGO ROBERTSON Report Released Date/Time: Aug 28, 2024 01:59 PM Reporting Lab: [place] [address] [facility] [phone] Performing Lab: [place] [address] [facility] [phone] [facility] CBC LYMPHOCYTES [#/VOLUME] IN BLOOD BY AUTOMATED COUNT 1.31 10*3/u L 0.77 - 4.50 08/28 Specimen Type: BLOOD No comment entered. Ordering Provider: MAGO ROBERTSON Report Released Date/Time: Aug 28, 2024 01:59 PM Reporting Lab: [place] [address] [facility] [phone] Performing Lab: [place] [address] [facility] [phone] [facility] CBC MONOCYTES [#/VOLUME] IN BLOOD BY AUTOMATED COUNT 0.73 10*3/u L 0.19 - 0.80 08/28 Specimen Type: BLOOD No comment entered. Ordering Provider: MAGO ROBERTSON Report Released Date/Time: Aug 28, 2024 01:59 PM Reporting Lab: [place] [address] [facility] [phone] Performing Lab: [place] [address] [facility] [phone] [facility] CBC NEUTROPHILS [#/VOLUME] IN BLOOD BY AUTOMATED COUNT 9.72 10*3/u L 2.10 - 8.00 08/28 H Specimen Type: BLOOD No comment entered. Ordering Provider: MAGO ROBERTSON Report Released Date/Time: Aug 28, 2024 01:59 PM Reporting Lab: [place] [address] [facility] [address] Performing Lab: [facility] [address] [address] [facility] CBC EOSINOPHILS [#/VOLUME] IN BLOOD BY AUTOMATED COUNT 0.04 10*3/u L 0.00 - 0.60 08/28 Specimen Type: BLOOD No comment entered. Ordering Provider: MAGO ROBERTSON Report Released Date/Time: Aug 28, 2024 01:59 PM Reporting Lab: [place] [phone] Performing Lab: [address] [address] [facility] CBC BASOPHILS [#/VOLUME] IN BLOOD BY AUTOMATED COUNT 0.04 10*3/u L 0.00 - 0.20 08/28 Specimen Type: BLOOD No comment entered. Ordering Provider: MAGO ROBERTSON Report Released Date/Time: Aug 28, 2024 01:59 PM Reporting Lab: [place] [phone] Performing Lab: [address] [phone] ALT/SGPT ALANINE AMINOTRANSF ERASE [ENZYMATIC ACTIVITY/VO LUME] IN SERUM OR PLASMA 42 U/L 8 - 40 08/07 H Specimen Type: PLASMA No comment entered. Ordering Provider: ROSEANNE VIZCARRA Report Released Date/Time: Jul 06, 2024 11:52 AM Reporting Lab: [facility] [place] [address] Performing Lab: [facility] [place] [phone] AST/SGOT ASPARTATE AMINOTRANSF ERASE [ENZYMATIC ACTIVITY/VO LUME] IN SERUM OR PLASMA 24 U/L 5 - 34 08/07 Specimen Type: PLASMA No comment entered. Ordering Provider: ROSEANNE VIZCARRA Report Released Date/Time: Jul 06, 2024 11:52 AM Reporting Lab: [facility] [place] [phone] Performing Lab: [facility] DIVISION CREATININE (EGFR) CREATININE [MASS/VOLUM E] IN SERUM OR PLASMA 1.14 mg/dL 0.70 - 1.30 08/07 Specimen Type: PLASMA No comment entered. Ordering Provider: ROSEANNE VIZCARRA Report Released Date/Time: Jul 06, 2024 11:52 AM Reporting Lab: [facility] [place] [address] Performing Lab: [facility] CREATININE (EGFR) GLOMERULAR FILTRATION RATE/1.73 SQ M.PREDICTED [VOLUME RATE/AREA] IN SERUM, PLASMA OR BLOOD BY CREATININE- BASED FORMULA (CKD-EPI 2020) 70.49 60 08/07 Specimen Type: PLASMA No comment entered. Ordering Provider: ROSEANNE VIZCARRA Report Released Date/Time: Jul 06, 2024 11:52 AM Reporting Lab: [facility] [place] [address] Performing Lab: [facility] DIVISION HGB,HCT,PL T HEMOGLOBIN [MASS/VOLUM E] IN BLOOD 14.6 g/dL 13.1 - 16.8 08/07 Specimen Type: BLOOD No comment entered. Ordering Provider: ROSEANNE VIZCARRA Report Released Date/Time: Jul 06, 2024 11:52 AM Reporting Lab: [facility] [place] [address] Performing Lab: [facility] DIVISION HGB,HCT,PL T HEMATOCRIT [VOLUME FRACTION] OF BLOOD 46.1 38.2 - 48.4 08/07 Specimen Type: BLOOD No comment entered. Ordering Provider: ROSEANNE VIZCARRA Report Released Date/Time: Jul 06, 2024 11:52 AM Reporting Lab: [facility] [place] [address] Performing Lab: [facility] DIVISION HGB,HCT,PL T PLATELETS [#/VOLUME] IN BLOOD BY AUTOMATED COUNT 257 10*3/u L 150 - 400 08/07 Specimen Type: BLOOD No comment entered. Ordering Provider: ROSEANNE VIZCARRA Report Released Date/Time: Jul 06, 2024 11:52 AM Reporting Lab: [facility] [place] [address] Performing Lab: [facility] DIVISION URINALYSIS (STL-PB) COLOR OF URINE Light- Yellow 05/20 Specimen Type: URINE No comment entered. Ordering Provider: Bessie GARCIA Report Released Date/Time: May 20, 2024 08:32 AM Reporting Lab: [facility] [place] [address] Performing Lab: [facility] DIVISION URINALYSIS (STL-PB) BILIRUBIN.T OTAL [PRESENCE] IN URINE BY TEST STRIP Negati vemg/d L 05/20 Specimen Type: URINE No comment entered. Ordering Provider: Bessie GARCIA Report Released Date/Time: May 20, 2024 08:32 AM Reporting Lab: [facility] [place] [address] Performing Lab: [facility] DIVISION URINALYSIS (STL-PB) PH OF URINE BY TEST STRIP 7.0 5.0 - 8.0 05/20 Specimen Type: URINE No comment entered. Ordering Provider: Bessie GARCIA Report Released Date/Time: May 20, 2024 08:32 AM Reporting Lab: [facility]1 [place] [address] Performing Lab: [facility] DIVISION URINALYSIS (STL-PB) APPEARANCE OF URINE Clear 05/20 Specimen Type: URINE No comment entered. Ordering Provider: Bessie GARCIA Report Released Date/Time: May 20, 2024 08:32 AM Reporting Lab: [facility] [place] [address] Performing Lab: [facility] DIVISION URINALYSIS (STL-PB) NITRITE [PRESENCE] IN URINE BY TEST STRIP Negati vemg/d L 05/20 Specimen Type: URINE No comment entered. Ordering Provider: Bessie GARCIA Report Released Date/Time: May 20, 2024 08:32 AM Reporting Lab: [facility]1 [place] [address] Performing Lab: [facility] DIVISION URINALYSIS (STL-PB) GLUCOSE [MASS/VOLUM E] IN URINE BY TEST STRIP Normal mg/dL 05/20 Specimen Type: URINE No comment entered. Ordering Provider: Bessie GARCIA Report Released Date/Time: May 20, 2024 08:32 AM Reporting Lab: [facility] [place] [address] Performing Lab: [facility] DIVISION URINALYSIS (STL-PB) PROTEIN [MASS/VOLUM E] IN URINE BY TEST STRIP Negati vemg/d L 05/20 Specimen Type: URINE No comment entered. Ordering Provider: Bessie GARCIA Report Released Date/Time: May 20, 2024 08:32 AM Reporting Lab: [facility] [place] [address] Performing Lab: [facility] DIVISION URINALYSIS (STL-PB) URN.UROBILI NOGEN 2 mg/dL 05/20 H Specimen Type: URINE No comment entered. Ordering Provider: Bessie GARCIA Report Released Date/Time: May 20, 2024 08:32 AM Reporting Lab: [facility]1 [place] [address] Performing Lab: [facility] DIVISION URINALYSIS (STL-PB) HEMOGLOBIN [MASS/VOLUM E] IN URINE BY TEST STRIP Negati vemg/d L 05/20 Specimen Type: URINE No comment entered. Ordering Provider: Bessie GARCIA Report Released Date/Time: May 20, 2024 08:32 AM Reporting Lab: [facility] [place] [address] Performing Lab: [facility] DIVISION URINALYSIS (STL-PB) KETONES [MASS/VOLUM E] IN URINE BY TEST STRIP Negati vemg/d L 05/20 Specimen Type: URINE No comment entered. Ordering Provider: Bessie GARCIA Report Released Date/Time: May 20, 2024 08:32 AM Reporting Lab: [facility] [place] [address] Performing Lab: [facility] [facility] URINALYSIS (STL-PB) URN.LEUK.ES T. Negati vemg/d L 05/20 Specimen Type: URINE No comment entered. Ordering Provider: Bessie GARCIA Report Released Date/Time: May 20, 2024 08:32 AM Reporting Lab: [facility] [place] [address] Performing Lab: [facility] DIVISION URINALYSIS (STL-PB) SPECIFIC GRAVITY OF URINE 1.016 05/20 Specimen Type: URINE No comment entered. Ordering Provider: Bessie GARCIA Report Released Date/Time: May 20, 2024 08:32 AM Reporting Lab: [facility] [place] [address] Performing Lab: [facility] DIVISION COMPREHENS TAY METABOLIC PANEL CREATININE [MASS/VOLUM E] IN SERUM OR PLASMA 1.06 mg/dL 0.70 - 1.30 05/20 Specimen Type: PLASMA Comment: No hemolysis noted. Ordering Provider: Bessie GARCIA Report Released Date/Time: May 20, 2024 08:32 AM Reporting Lab: [facility] [place] [address] Performing Lab: [facility] DIVISION COMPREHENS TAY METABOLIC PANEL UREA NITROGEN [MASS/VOLUM E] IN SERUM OR PLASMA 13.3 mg/dL 9.0 - 25.0 05/20 Specimen Type: PLASMA Comment: No hemolysis noted. Ordering Provider: Bessie GARCIA Report Released Date/Time: May 20, 2024 08:32 AM Reporting Lab: [facility] [place] [address] Performing Lab: [facility]1 [facility] [phone] [place] [address] DIVISION COMPREHENS TAY METABOLIC PANEL GLUCOSE [MASS/VOLUM E] IN SERUM OR PLASMA 102 mg/dL 72 - 99 05/20 H Specimen Type: PLASMA Comment: No hemolysis noted. Ordering Provider: Bessie GARCIA Report Released Date/Time: May 20, 2024 08:32 AM Reporting Lab: [facility] [phone] Performing Lab: [facility] [phone] DIVISION COMPREHENS TAY METABOLIC PANEL SODIUM [MOLES/VOLU ME] IN SERUM OR PLASMA 140 meq/L 136 - 145 05/20 Specimen Type: PLASMA Comment: No hemolysis noted. Ordering Provider: Bessie GARCIA Report Released Date/Time: May 20, 2024 08:32 AM Reporting Lab: [facility] [phone] Performing Lab: [facility] [phone] COMPREHENS TAY METABOLIC PANEL POTASSIUM [MOLES/VOLU ME] IN SERUM OR PLASMA 4.6 meq/L 3.5 - 5.0 05/20 Specimen Type: PLASMA Comment: No hemolysis noted. Ordering Provider: eBssie GARCIA Report Released Date/Time: May 20, 2024 08:32 AM Reporting Lab: [facility] [phone] Performing Lab: [facility] DIVISION COMPREHENS TAY METABOLIC PANEL CHLORIDE [MOLES/VOLU ME] IN SERUM OR PLASMA 106 meq/L 98 - 107 05/20 Specimen Type: PLASMA Comment: No hemolysis noted. Ordering Provider: Bessie GARCIA Report Released Date/Time: May 20, 2024 08:32 AM Reporting Lab: [facility] [place] [address] Performing Lab: [facility] DIVISION COMPREHENS TAY METABOLIC PANEL CARBON DIOXIDE, TOTAL [MOLES/VOLU ME] IN SERUM OR PLASMA 27 meq/L 22 - 31 05/20 Specimen Type: PLASMA Comment: No hemolysis noted. Ordering Provider: Bessie GARCIA Report Released Date/Time: May 20, 2024 08:32 AM Reporting Lab: [facility] [place] [address] Performing Lab: [facility] DIVISION COMPREHENS TAY METABOLIC PANEL CALCIUM [MASS/VOLUM E] IN SERUM OR PLASMA 10.2 mg/dL 8.4 - 10.4 05/20 Specimen Type: PLASMA Comment: No hemolysis noted. Ordering Provider: Bessie GARCIA Report Released Date/Time: May 20, 2024 08:32 AM Reporting Lab: [facility] [place] [address] Performing Lab: [facility] DIVISION COMPREHENS TAY METABOLIC PANEL PROTEIN [MASS/VOLUM E] IN SERUM OR PLASMA 7.1 g/dL 6.0 - 8.6 05/20 Specimen Type: PLASMA Comment: No hemolysis noted. Ordering Provider: Bessie GARCIA Report Released Date/Time: May 20, 2024 08:32 AM Reporting Lab: [facility] [place] [address] Performing Lab: [facility] DIVISION COMPREHENS TAY METABOLIC PANEL ALBUMIN [MASS/VOLUM E] IN SERUM OR PLASMA 4.1 g/dL 3.4 - 5.0 05/20 Specimen Type: PLASMA Comment: No hemolysis noted. Ordering Provider: Bessie GARCIA Report Released Date/Time: May 20, 2024 08:32 AM Reporting Lab: [facility] [place] [address] Performing Lab: [facility] DIVISION COMPREHENS TAY METABOLIC PANEL BILIRUBIN.T OTAL [MASS/VOLUM E] IN SERUM OR PLASMA 0.6 mg/dL 0.2 - 1.2 05/20 Specimen Type: PLASMA Comment: No hemolysis noted. Ordering Provider: Bessie GARCIA Report Released Date/Time: May 20, 2024 08:32 AM Reporting Lab: [facility]1 [place] [address] Performing Lab: [facility] DIVISION COMPREHENS TAY METABOLIC PANEL ALKALINE PHOSPHATASE [ENZYMATIC ACTIVITY/VO LUME] IN SERUM OR PLASMA 96 U/L 40 - 150 05/20 Specimen Type: PLASMA Comment: No hemolysis noted. Ordering Provider: Bessie GARCIA Report Released Date/Time: May 20, 2024 08:32 AM Reporting Lab: [facility] [place] [address] Performing Lab: [facility] DIVISION COMPREHENS TAY METABOLIC PANEL ASPARTATE AMINOTRANSF ERASE [ENZYMATIC ACTIVITY/VO LUME] IN SERUM OR PLASMA 19 U/L 5 - 34 05/20 Specimen Type: PLASMA Comment: No hemolysis noted. Ordering Provider: Bessie GARCIA Report Released Date/Time: May 20, 2024 08:32 AM Reporting Lab: [facility] [place] [address] Performing Lab: [facility]1 [facility] [phone] [facility] DIVISION COMPREHENS TAY METABOLIC PANEL ALANINE AMINOTRANSF ERASE [ENZYMATIC ACTIVITY/VO LUME] IN SERUM OR PLASMA 13 U/L 8 - 40 05/20 Specimen Type: PLASMA Comment: No hemolysis noted. Ordering Provider: Bessie GARCIA Report Released Date/Time: May 20, 2024 08:32 AM Reporting Lab: [facility]1 [facility] [phone] Performing Lab: [facility]1 [facility] [phone] [place] [address] DIVISION COMPREHENS TAY METABOLIC PANEL GLOMERULAR FILTRATION RATE/1.73 SQ M.PREDICTED [VOLUME RATE/AREA] IN SERUM, PLASMA OR BLOOD BY CREATININE- BASED FORMULA (CKD-EPI 2020) 76.92 60 05/20 Specimen Type: PLASMA Comment: No hemolysis noted. Ordering Provider: Bessie GARCIA Report Released Date/Time: May 20, 2024 08:32 AM Reporting Lab: [facility]1 [facility] [address] Performing Lab: [facility]1 [facility] [phone] Vital Signs Combined list of inpatient and outpatient Vital Signs from Department of Defense and Veterans Affairs, ranging from 12 months to all on record, depending upon the facility. Vital Sign Value Date Comments Source SYSTOLIC BLOOD PRESSURE 118 09/17/2024 13:59:41 [facility] DIASTOLIC BLOOD PRESSURE 75 09/17/2024 13:59:41 [facility] PULSE OXIMETRY 95 09/17/2024 13:59:41 [facility] WEIGHT 263.9 09/17/2024 13:59:41 [facility] BMI 33 kg/m2 09/17/2024 13:59:41 [facility] PAIN 0 09/17/2024 13:59:41 [facility] DIV[facility] TEMPERATURE 97.5 09/17/2024 13:59:41 [facility] DIV[facility] PULSE 81 09/17/2024 13:59:41 . Zoraida [facility] DIV[facility] RESPIRATION 20 09/17/2024 13:59:[address] [facility] SYSTOLIC BLOOD PRESSURE 128 09/16/2024 13:03:[address] [facility] DIASTOLIC BLOOD PRESSURE 78 09/16/2024 13:03:[address] [facility] PULSE OXIMETRY 95 09/16/2024 13:03:33 S Jono [facility] DIV[facility] WEIGHT 263 09/16/2024 13:03:33 [facility] Zoraida [facility] DIVISION BMI 33 kg/m2 09/16/2024 13:03:33 [facility] Zoraida [facility] DIVISION TEMPERATURE 98 09/16/2024 13:03:[address] [facility] PULSE 74 09/16/2024 13:03:33 [facility] RESPIRATION 18 09/16/2024 13:03:[address] [facility] SYSTOLIC BLOOD PRESSURE 146 08/28/2024 13:35:[address] [facility] DIASTOLIC BLOOD PRESSURE 99 08/28/2024 13:35:[address] [facility] PULSE OXIMETRY 95 08/28/2024 13:35:58 Iraj De La Cruz [facility] DIVISION WEIGHT 270.2 08/28/2024 13:35:58 [facility] DIVISION BMI 34 kg/m2 08/28/2024 13:35:58 [facility] DIV[facility] PAIN 0 08/28/2024 13:35:58 [facility] Zoraida [facility] DIVISION HEIGHT 75 08/28/2024 13:35:58 [facility] DIVISION TEMPERATURE 98.1 08/28/2024 13:35:[address] [facility] PULSE 93 08/28/2024 13:35:58 [facility] RES[facility] 22 08/28/2024 13:35:[address] [facility] SYSTOLIC BLOOD PRESSURE 142 08/07/2024 13:02:02 [facility]ISION DIASTOLIC BLOOD PRESSURE 81 08/07/2024 13:02:02 [facility] DIVISION PULSE OXIMETRY 93 08/07/2024 13:02:[address] [facility] DIV[facility] WEIGHT 264.2 08/07/2024 13:02:02 [facility] BMI 33 kg/m2 08/07/2024 13:02:02 [facility] PAIN 7 08/07/2024 13:02:02 [facility] TEMPERATURE 97.6 08/07/2024 13:02:02 [facility] PULSE 70 08/07/2024 13:02:02 [facility] RESPIRATION 20 08/07/2024 13:02:02 [facility] SYSTOLIC BLOOD PRESSURE 148 05/20/2024 13:02:35 [facility] DIASTOLIC BLOOD PRESSURE 89 05/20/2024 13:02:35 [facility] PULSE OXIMETRY 98 05/20/2024 13:02:35 [facility] WEIGHT 265.1 05/20/2024 13:02:35 [facility] BMI 33 kg/m2 05/20/2024 13:02:35 [facility] PAIN 7 05/20/2024 13:02:35 [facility] TEMPERATURE 98.1 05/20/2024 13:02:35 [facility] PULSE 64 05/20/2024 13:02:35 [facility] RESPIRATION 20 05/20/2024 13:02:35 [facility] DIVISION Encounters Combined list of: 1) Encounters from Department of [facility] facilities going backup to the last 18 months, not all [facility] inpatient encounters are included; 2) Encounters from the Department of Defense facilities going backup to 280 months. Location Location Details Encounter Type Encounter Number Reason For Visit Attending Provider ADM Date DC Date Status Disposition Source [facility] Outpatient Encounter [id number] 08/29 [facility] OFFICE O/P EST MOD 30 MIN 97698-8.65 [id number] Diagnos is: ICD-10- CM J44.9 Chronic obstruc tive pulmona ry disease , unspeci fied Noam LUTHER NDREA 08/29 [facility] Outpatient Encounter [id number] [id number] 09/01 [facility] Outpatient Encounter [id number] [id number] 09/04 [facility] OFFICE O/P EST MOD 30 MIN 82110-2.65 [id number] Diagnos is: ICD-10- CM Z72.0 Tobacco use HUA SUTHERLAND A 09/09 [facility] Outpatient Encounter [id number] [id number] 2 09/09 [facility] Outpatient Encounter [id number] [id number] YANNA HILLMAN 09/10 [facility] Outpatient Encounter [id number] [id number] Winter DIAS 09/10 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 OFF[facility] O/P EST MOD 30 MIN 72231-7.65 [id number] Diagnos is: ICD-10- CM H34.211 Partial retinal artery occlusi on, right eye DUNIAABHINAV 10/21 [facility] FUNDUS PHOTOGRAPH Y W/I&R 29905-1.65 [id number] 161 Diagnos is: ICD-10- CM H35.9 Unspeci fied retinal disorde r JAMAR SMITH 10/21 [facility] OFF/OP CNSLTJ NEW/EST LOW 30 [id number] [id number] 3 Diagnos is: ICD-10- CM Z86.010 Personnoam l history of colonic polyps Emely BRANDT 10/23 [facility] Outpatient Encounter [id number] [id number] 11/07 [facility] Outpatient Encounter [id number] [id number] 5 11/08 [facility] OFFICE O/P EST LOW 20 MIN 84976-9.65 [id number] 3 Diagnos is: ICD-10- CM F17.210 Nicotin e depende nce, cigaret shara, uncompl icated HUA SUTHERLAND A 11/11 [facility] Outpatient Encounter 29576-3.65 [id number] 3 11/12 [facility] Outpatient Encounter [id number] [id number] 2 11/13 [facility] ACUPUNCT W/O STIMUL 15 MIN 78277-6.65 [id number] Diagnos is: ICD-10- CM F17.200 Nicotin e depende nce, unspeci fied, uncompl icated MYRTLE KAY 11/20 [facility] 25214-7.65 [id number] 4 Diagnos is: ICD-10- CM Z71.89 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 ed weight loss counselor ing RENETTA BLACK 12/11 [facility] Outpatient Encounter 55722-3.65 [id number] 3 12/16 [facility] OFFICE O/P EST MOD 30 MIN 89503-1.65 [id number] 6 Diagnos is: ICD-10- CM I63.9 Cerebra l infarct ion, unspeci fied OU,JIAFU 12/18 [facility] Outpatient Encounter 80723-6.65 [id number] 4 12/19 [facility] Outpatient Encounter [id number] [id number] 3 ELSI SCOTT N 12/22 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 Outpatient Encounter [id number] [id number] MYRTLE KAY L 01/08 [facility] Outpatient Encounter [id number] [id number] 01/20 [facility] Outpatient Encounter [id number] [id number] 6 01/20 [facility] OFFICE O/P EST LOW 20 MIN 89467-6.65 [id number] 4 Diagnos is: ICD-10- CM Z01.818 Encount er for other preproc edural examina KENRICK Perez IN A 01/21 [facility] Outpatient Encounter 98973-3.65 [id number] 01/21 [facility] OFFICE O/P EST SF 10 MIN 92653-5.65 [id number] 6 Diagnos is: ICD-10- CM K63.5 Polyp of colon LYNN LEROY TTHEW H 01/21 [facility] Outpatient Encounter [id number] [id number] KEDAR FONTAINE 01/21 [facility] Outpatient Encounter 87898-3.65 [id number] ARNOLD MTZ 01/22 [facility] Outpatient Encounter 24463-4.65 [id number] 01/23 [facility] Outpatient Encounter 94964-2.65 [id number] 03/03 [facility] Outpatient Encounter 99902-6.65 [id number] 5 Diagnos is: ICD-10- CM J44.9 Chronic obstruc tive pulmona ry disease , unspeci fied OU,JIAFU 03/19 [facility] Outpatient Encounter 23492-4.65 [id number] 4 Diagnos is: ICD-10- CM I63.9 Cerebra l infarct ion, unspeci fied DAYANAARIZWANA IL C 03/20 [facility] Outpatient Encounter 30907-3. [id number] OVERTURFWinter A 03/30 [facility] OFFICE O/P EST MOD 30 MIN 99288-6.65 [id number] Diagnos is: ICD-10- CM J44.9 Chronic obstruc tive pulmona ry disease , unspeci fied Bessie GARCIA HERE 04/08 [facility] Outpatient Encounter [id number] [id number] 5 04/10 [facility] Outpatient Encounter 01322-9.65 [id number] 9 Diagnos is: ICD-10- CM I63.9 Cerebra l infarct ion, unspeci fied DAYANAACHACHAH IL C 04/16 [facility] Outpatient Encounter [id number] [id number] Bessie GARCIA HERE 04/16 [facility] Outpatient Encounter 99765-8. [id number] 04/16 [facility] Outpatient Encounter 94550-6.66 [id number] 05/11 [facility] REM INTERROG DEV EVAL SCRMS 78250-9.65 [id number] 3 Diagnos is: ICD-10- CM G46.4 Cerebel lar stroke syndrom e PANDA,RIZWANA IL C 05/11 [facility] Outpatient Encounter 01441-2.66 [id number] 05/13 [facility] Outpatient Encounter 81798-8.66 [id number] 05/14 [facility] Outpatient Encounter 75555-4.66 [id number] 05/18 [facility] Outpatient Encounter [id number]. [id number] Bessie GARCIA 05/19 [facility] Outpatient Encounter 94700-1.66 [id number] 05/19 [facility] OFFICE O/P EST MOD 30 MIN 22620-0.65 [id number] Diagnos is: ICD-10- CM I48.0 Paroxys mal atrial fibrill ation Bessie GARCIA 05/20 [facility] QNHP OL DIG ASSMT&MGMT 5-10 [id number] [id number] 108 Diagnos is: ICD-10- CM I48.91 Unspeci fied atrial fibrill ation ROSEANNE VIZCARRA 05/20 [facility] Outpatient Encounter [id number] [id number] 05/20 [facility] Outpatient Encounter 45141-0.65 [id number] 5 Diagnos is: ICD-10- CM I48.0 Paroxys mal atrial fibrill ation JACOBO TELLO 05/21 [facility] Outpatient Encounter 11901-2.65 [id number] 05/21 [facility] Outpatient Encounter 99850-3.65 [id number] 4 Diagnos is: ICD-10- CM G46.4 Cerebel lar stroke syndrom e ZBIGNIEWGAMALCARLOS ENRIQUE CINDY Winter 05/22 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 REM INTERROG DEV EVAL SCRMS 01872-7.65 [id number] Diagnos is: ICD-10- CM G46.4 Cerebel lar stroke syndrom e RIZWANA CLOUD 07/31 [facility] Outpatient Encounter 54722-8.65 [id number] Bessie GARCIA 07/31 [facility] Outpatient Encounter [id number] [id number] 08/03 [facility] Outpatient Encounter 15437-8.65 [id number] 9 Diagnos is: ICD-10- CM I48.0 Paroxys mal atrial fibrill ation JACOBO TELLO 08/03 [facility] Outpatient Encounter 83752-5.66 [id number] 08/05 [facility] Outpatient Encounter 62711-3.66 [id number] 08/07 [facility] Outpatient Encounter 13370-5.66 [id number] 08/07 [facility] OFFICE O/P EST MOD 30 MIN 87500-6.65 [id number] Diagnos is: ICD-10- CM J44.1 Chronic obstruc tive pulmona ry disease w (acute) exacerb ation Bessie GARCIA HERESA 08/07 [facility] MTMS BY PHARM EST 15 MIN 71798-3.65 [id number] Diagnos is: ICD-10- CM Z51.81 Encount er for therape utic drug level monitor ROSEANNE Boswell M 08/10 [facility] Outpatient Encounter [id number] [id number] 2 Bessie GARCIA HERE08/12 [facility] Outpatient Encounter [id number] [id number] 1 08/28 [facility] OFFICE O/P EST MOD 30 MIN 36361-9.65 [id number] 1 Diagnos is: ICD-10- CM R06.00 Dyspnea , unspeci fied MAGO ROBERTSON DT T 08/28 [facility] Outpatient Encounter [id number] [id number] 09/01 [facility] Outpatient Encounter 24814-2.65 [id number] 09/02 [facility] Outpatient Encounter [id number] [id number] MORRISON,TIFF ANY N 09/04 [facility] SPACER WITHOUT MASK 83227-6.65 [id number] 9 Diagnos is: ICD-10- CM J44.9 Chronic obstruc tive pulmona ry disease , unspeci fied MAGO ROBERTSON DT T 09/16 [facility] OFFICE O/P EST MOD 30 MIN 45877-7.65 [id number] Diagnos is: ICD-10- CM I48.0 Paroxys mal atrial fibrill ation SHEPHERDURIEL [place] D 09/[address] [facility] Outpatient Encounter [id number] [id number] 09/[address] [facility] SYNCH AUDIO-ONLY NEW HIGH 60 08139-6.65 [id number] 9 Diagnos is: ICD-10- CM I48.0 Paroxys mal atrial fibrill ation RIZWANA CLOUD JACK C 09/21 [facility] N [facility] Outpatient Encounter [id number] [id number] 09/22 [facility] N [facility] Outpatient Encounter [id number] [id number] 09/22 [facility] N [facility] Outpatient Encounter 68681-4.65 [id number] 09/22 [facility] N Social History Combined list of available smoking, tobacco, and other social history from Department of Defense and [facility] facilities. Social History Type Response Date Comment Sour e Tobacco smoking status NHIS VA-TOBACCO USE EVERY DAY CIGARETTES 04/08/2024 [facility] History of tobacco use ID-TOBACCO NEVER USED OTHER TYPE 04/08/2024 [facility] History of tobacco use VA-TOBACCO USER EVERY DAY 02/15/2023 [facility] History of tobacco use VA-TOBACCO USER EVERY DAY 02/19/2022 [facility] History of tobacco use VA-TOBACCO FORMER USER 10/11/2020 [facility] History of tobacco use QUIT TOBACCO IN THE LAST 12 MONTHS 02/14/2017 [facility] History of tobacco use YAKELIN TOBACCO MEDS INTERESTED 09/05/2015 [facility] History of tobacco use YAKELIN TOBACCO MEDS INTERESTED 08/24/2014 [facility] History of tobacco use YAKELIN TOBACCO MEDS INTERESTED 08/05/2013 [facility] Plan of Care List of future care activities from Department of [facility] facilities. Additional future care activities may be listed in the Assessment and Plan section. Date/Time Care Activity Care Activity Detail Janet alarcon 01/28/2025 AMBULATORY - MEDICINE AMBULATORY - MEDICI [facility]
--- OUTSIDE RECORDS SUMMARY | 2024-09-22 16:11 | XMS_ITS | Clinical Summary ---
Author Organization [facility] Care Team Providers Care Lawyer Probate Name Role Phone Unavailable Primary Care Provider Unavailabl e Social History Tobacco Use Types Packs/Day Years Used Date Smoking Tobacco: Never Assessed Sex and Gender Information Value Date Recorded Sex Assigned at Not on file Legal Sex Male 4:08 PM [employer] Gender Identity Not on file Sexual Orientation [...]
--- OUTSIDE RECORDS SUMMARY | 2024-09-22 16:12 | XMS_ITS | Clinical Summary ---
Author Organization [facility] Address [address] [place] [id number] Care Team Providers Care Rn Ent Name Role Phone Jm Cedillo MD Primary Care Provider [phone]- [phone] Social History Tobacco Use Types Packs/Day Years [...] Health Maintenance Insurance MEDICARE MEDICAID Care Teams Rn Ent Relationship Specialty Start Date End Date Jm Cedillo MD PCP - General INTERNAL MEDICINE 12/23/18
[2024-09-22 16:40] LABS: Troponin I 0.025 ng/mL (0.000-0.034)
[2024-09-22 17:08] VITALS: BP 127/103; PULSE 67; RESP 15; O2SAT 93
== END 2024-09-22 17:29 | disposition home or self-care (01) ==
PROVIDERS: Emergency Provider Emergency Medicine; PCP Family Medicine
DX: R07.9 Chest pain, unspecified (principal); F17.210 Nicotine dependence, cigarettes, uncomplicated; E78.5 Hyperlipidemia, unspecified; M19.90 Unspecified osteoarthritis, unspecified site; I48.91 Unspecified atrial fibrillation; J44.9 Chronic obstructive pulmonary disease, unspecified; I10 Essential (primary) hypertension
CPT/HCPCS: 36415; 71046; 80053; 83690; 84484; 85025; 85610; 85730; 93005; 99284; A9270

== ENCOUNTER 2024-12-14 17:49 | Emergency (ER) | payer OTHER, SELFPAY ==
--- NOTE | ~2024-12-14 | XR_ITS ---
EXAMINATION: XR chest 2V Exam Date/Time: 12/14/2024 18:12 CDT HISTORY: dyspnea Comparison: 09/22/2024. RESULT: Lines, tubes, and devices: Loop recorder. Lungs and pleura: Subsegmental right basilar airspace disease. Mild bilateral costophrenic angle mahin nting. Mild diffuse reticular opacities. Cardiomediastinal silhouette: Stable. Other: No acute osseous or upper abdominal finding. IMPRESSION: Subsegmental right basilar atelectasis/consolidation. Possible small bilateral pleural effusions vers us chronic pleural blunting. Diffuse reticular opacities may represent mild edema overlying chronic e mphysematous change. Reviewed, dictated and finalized at location K. IMPRESSION: Subsegmental right basilar atelectasis/consolidation. Possible small bilateral pleural effusions versus chronic pleural blunting. Diffuse reticular opacities may represent mild edema overlying chronic emphysematous change.
--- OUTSIDE RECORDS SUMMARY | 2024-12-14 17:51 | XMS_ITS ---
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 [place] Organization [facility] [place] Address [address] [place] [address] Care Team Providers Care Toggle Press Operator Name Role Phone JESSICA KAY Primary [...] [place] PREFERRED PROVIDER ORGANIZAT ION (PPO) [facility] ACTIV E [place] Jun 03, 2013 [id number] [phone] JOSEPHINE DiamondROSITA SPOUSE MEDICARE (WNR) MEDICARE (M) PART A Jul 04, 2016 PART A [id number] HERMES GRIMMY PATIENT MEDICARE (WNR) MEDICARE (M) PART B Jul 04, 2016 PART B [id number] RICHARDSO N,ELI PATIENT MEDICARE (WNR) MEDICARE (M) PART A Jul 04, 2016 PART A [id number] EMMASO N,ELI PATIENT MEDICARE (WNR) MEDICARE (M) PART B Jul 04, 2016 PART B [id number] EMMASO N,ELI PATIENT MEDICARE (WNR) MEDICARE (M) PART B Jul 04, 2016 PART B [id number] EMMASO N,ELI PATIENT MEDICARE (WNR) MEDICARE (M) PART A Jul 04, 2016 PART A [id number] EMMASO N,ELI PATIENT MEDICARE (WNR) MEDICARE (M) PART A Jul 04, 2016 PART A [id number] EMMASO N,ELI PATIENT MEDICARE (WNR) MEDICARE (M) PART B Jul 04, 2016 PART B [id number] EMMASO NHERMESY PATIENT PRIME THERAPEUTI CS RX PRESCRIPT ION RX PLAN Jun 03, 2013 [id number] [phone] EMMASO N,ELI PATIENT Selected Encounter This section includes the information on record at ME for the Encounter. Date/Time Encounter Type Encounter Description Reason Provider Source Sep 21, 2024 02:15 PM SYNCH AUDIO-ONLY NEW HIGH 60 CARDIOLOGY ICD-10-CM I48.0 Paroxysmal atrial fibrillation JOSE BARNES [facility] Encounter Template Text not used by ME Assessments - Encounter Diagnoses This section includes the primary and secondary diagnoses documented for the Encounter. Date/Time Primary/Secondary Diagnosis Diagnosis Name Provider Source Sep 21, 2024 02:24 PM PRIMARY Paroxysmal atrial fibrillation JOSE BARNES [facility] Plan of Treatment: Future Appointments [...] Appointment Type Appointme nt Facility Name October 20, 2024 03:00 PM [facility] Nov 06, 2024 11:00 AM AM[facility]ULATORY - MEDICINE [facility] Jan 25, 2025 11:05 AM AMBULATORY - MEDICINE [facility] Jan 27, 2025 06:00 AM AMBULATORY - NONE [facility] Jan 27, 2025 06:15 AM AMBULATORY - MEDICINE [facility] Jan 28, 2025 02:00 PM AMBULATORY - MEDICINE [facility] 2025 01:00 PM AMBULATORY - MEDICINE [facility] Active, Pending, and Scheduled Orders This [...] CANCER [facility] CONSULT OUTPT STL Cons Dialysis Technician's [facility] October 20, 2024 04:34 PM Procedure Order CP ELECTRO PHYSIOLOGY STL CP ELECTROPHYSIOLOGY STL Proc [facility] October 23, 2024 02:40 PM Procedure Order CP SWATI ECH OCARDIOGRAM [facility] SWATI FUTURE CARE ECHOCARDIOGRAM STL [facility] Results: +/- 30 days of the [...] Type Comment Sep 01, 2024 12:48 PM [facility] BASIC METABOLIC PANEL PLASMA Specimen Type: PLASMA Comment: No hemolysis noted. Ordering Provider: PASTOR ROBERTSON Report Released Date/Time: Sep 01, 2024 12:22 PM Reporting Lab: [address] [address] Performing Lab: [facility] [address] [place] [phone] CREATININE 1.28 mg/dL 0.7-1.3 UREA NITROGEN 21.6 mg/dL 9.0-25.0 GLUCOSE 148 mg/dL H 72-99 SODIUM 141 meq/L 136-145 POTASSIUM 5.1 meq/L H 3.5-5 CHLORIDE 105 meq/L 98-107 CARBON DIOXIDE 30 meq/L 22-31 CALCIUM 9.5 mg/dL 8.4-10.4 EGFR (CKD-EPI 2020) 61.3 >60 Aug 28, 2024 02:18 PM [facility] BRAIN NATRIURETIC PEPTIDE PLASMA Specimen Type : PLASMA No comment entered. Ordering Provider: PASTOR ROBERTSON Report Released Date/Time: Aug 28, 2024 01:59 PM Reporting Lab: [address] [address] Performing Lab: [address] [address] BRAIN NATRIURETIC PEPTIDE 356.1 pg/mL H 0- 100 Aug 28, 2024 02:18 PM [facility] BASIC METABOLIC PANEL PLASMA Specimen Type: PL ASMA Comment: No hemolysis noted. Ordering Provider: PASTOR ROBERTSON Report Released Date/Time: Aug 28, 2024 01:59 PM Reporting Lab: [address] [address] Performing Lab: [address] [address] CREATININE 1.09 mg/dL 0.7-1.3 UREA NITROGEN 16.4 mg/dL 9.0-25.0 GLUCOSE 110 mg/dL H 72-99 SODIUM 139 meq/L 136-145 POTASSIUM 4.7 meq/L 3.5-5 CHLORIDE 105 meq/L 98-107 CARBON DIOXIDE 27 meq/L 22-31 CALCIUM 9.1 mg/dL 8.4-10.4 EGFR (CKD-EPI 2020) 74.4 >60 Aug 28, 2024 02:18 PM [facility] CBC BLOOD Specimen Type: BLOOD No comment entered. Ordering Provider: PASTOR ROBERTSON Report Released Date/Time: Aug 28, 2024 01:59 PM Reporting Lab: [facility] [address] [facility] [address] Performing Lab: [facility] [address] [facility] [address] WBC 11.9 10*3/uL H 3.6-11.2 RBC 4.47 [...] the Encounter. The data comes from all [facility] facilities. Date/Time Radiology Report Provider Source Aug 28, 2024 11:[address] THORAX, DIAGNOS TIC, W/CONTRAST: ELI RUELAS [id number] -[id number] M Exm Date: AUG 28, 2024@11:50 Req Phys: ALEM LUTHER Loc: [facility]-PULMONARY INTERVENTIONAL (R Img Loc: [facility]-CT IMAGING [facility] Service: Unknown [facility], [address] [place] [address] (Case [id number] COMPLETE) CT THORAX, DIAGNOSTIC, W/CONTRAS(CT Detailed) CPT:75957 Contrast Media : Non-ionic Iodinated Reason for Study: Surveillance post resection of jennifer ca 2020 Clinical History: Responsible Attending: Shante Attending Contact Number: [phone] Resident Contact Number: Allergies listed in CPRS chart: CHANTIX Creatinine: CREATININE 1.16 mg/dL 02/15/2023 11:44 /eGFR: STL EGFR (within one year). CREATININE 1.16 mg/dL (02/15/23 11:44) Wt: 264 lb [119.75 kg] (08/30/2023 14:51) History of: Renal failure, chronic or acute renal disease: NO Report Status: Verified Date Reported: AUG 30, 2024 Date Verified: AUG 30, 2024 Transmitter Operator E-Sig:/ES/Oswald Coronado MD Report: INDICATION: Surveillance [...] process. Dictated by Dakota Hampton MD (radiology supervisor). I, Oswald Coronado, have reviewed the images and report and concur with these findings. Primary Interpreting Staff: Oswald Coronado MD, Radiologist (Transmitter Operator) Primary Interpreting Resident: Resident ANN MARIE Physician /OSWALD HAMMONDS [facility] Encounter Notes: All associated encounter notes This section contains the clinical notes associated to the Encounter. Date/Time Encounter Note(s) Provider Source Sep 23, 2024 04:00 PM ADDENDUM: LOCAL TITLE: Addendum STANDARD TITLE: ADDENDUM DATE OF NOTE: SEP 23, 2024@16:00:04 ENTRY DATE: SEP 23, 2024@16:00:04 AUTHOR: VERNA ERICKSON EXP COSIGNER: URGENCY: STATUS: COMPLETED Dr Barnes- Please reveiw TANNER Loop Recorder entries. Last Summary AFIB BURDEN 100% /loreta/ Verna Erickson,RN,BSN Registered Nurse Signed: 09/23/2024 16:00 Receipt Acknowledged By: 09/29/2024 10:22 /loreta/ JOSE BARNES MD CLINICAL CARDIAC NEWSPAPER CLIPPER --- Original Document --- 09/21/24 CARDIOLOGY CHART REVIEW STL: EP Consult received and information below is [...] a heart attack and went to a [facility] hospital where work up was [...] had documented symptomatic atrial fibrillation since 2020. /loreta/ JOSE BARNES MD CLINICAL CARDIAC NEWSPAPER CLIPPER Signed: 09/21/2024 14:24 Receipt Acknowledged By: 09/24/2024 13:06 /loreta/ NORIS STARR MD SUPERVISOR SAWMILL 09/23/2024 21:01 /loreta/ HOWARD SHEPHERD MD PHD STAFF PHYSICIAN AND CHIEF OF HEART FAILURE 09/29/2024 ADDENDUM STATUS: COMPLETED EP clinic request placed /loreta/ JOSE BARNES MD CLINICAL CARDIAC NEWSPAPER CLIPPER Signed: 09/29/2024 10:22 RAMILA ERICKSON [facility] Sep 21, 2024 02:15 PM CARDIOLOGY NOTE: LOCAL TITLE: CARDIOLOGY CHART REVIEW STL STANDARD TITLE: CARDIOLOGY NOTE DATE OF NOTE: SEP 21, 2024@14:15 ENTRY DATE: SEP 21, 2024@14:15:52 AUTHOR: JOSE BARNES EXP COSIGNER: URGENCY: STATUS: COMPLETED CARDIOLOGY CHART REVIEW STL Has ADDENDA EP Consult received and information below is [...] symptomatic atrial fibrillation since 2020. /es/ JOSE BARNES MD CLINICAL CARDIAC NEWSPAPER CLIPPER Signed: 09/21/2024 14:24 Receipt Acknowledged By: 09/24/2024 13:06 /es/ NORIS STARR MD SUPERVISOR SAWMILL 09/23/2024 21:01 /es/ HOWARD SHEPHERD MD PHD STAFF PHYSICIAN AND CHIEF OF HEART FAILURE 09/23/2024 ADDENDUM STATUS: COMPLETED Dr Barnes- Please duyen TANNER Loop Recorder entries. Last Summary AFIB BURDEN 100% /loreta/ Verna Erickson,RN,BSN Registered Nurse Signed: 09/23/2024 16:00 Receipt Acknowledged By: 09/29/2024 10:22 /loreta/ JOSE BARNES MD CLINICAL CARDIAC NEWSPAPER CLIPPER 09/29/2024 ADDENDUM STATUS: COMPLETED EP clinic request placed /loreta/ JOSE BARNES MD CLINICAL CARDIAC NEWSPAPER CLIPPER Signed: 09/29/2024 10:22 JOSE BARNES [facility]
--- NOTE | 2024-12-14 17:52 | ECG_ITS ---
Test Date: 2024-12-14 17:56:02 Measurements Intervals [place] Rate: 59 P: 77 MT: 198 QRS: -61 QRSD: 132 T: 14 QT: 477 QTc: 476 Interpretive Statements SINUS BRADYCARDIA RIGHT BUNDLE BRANCH BLOCK [120+ ms QRS DURATION, UPRIGHT V1, 40+ ms S IN I/aVL/V4/V5/V6] LEFT ANTERIOR FASCICULAR BLOCK [QRS AXIS <= -45, QR IN I, RS IN II] ABNORMAL ECG Compared to ECG 09/22/2024 16:17:56 SINUS RHYTHM REPLACES ATRIAL FLUTTER Electronically Signed On 12-15-2024 10:06:19 CDT by Poli Chacko M.D.
--- OUTSIDE RECORDS SUMMARY | 2024-12-14 17:52 | XMS_ITS | Encounter Summary ---
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 ([place] Organization [facility] [place] Address [address] [place] [address] Care Team Providers Care Senior Marketing Manager Name Role Phone JESSICA KAY Primary [...] ACTIV E [place]IGH Jun 03, 2013 [id number] [phone] JOSEPHINE DiamondROSITA SPOUSE MEDICARE (WNR) MEDICARE (M) PART B Jul 04, 2016 PART B [id number] JOSEPHINE DiamondELI PATIENT MEDICARE (WNR) MEDICARE (M) PART A Jul 04, 2016 PART A [id number] RICHARDSO N,ELI PATIENT MEDICARE (WNR) MEDICARE (M) PART A Jul 04, 2016 PART A [id number] [phone] RICHARDSO N,ELI PATIENT MEDICARE (WNR) MEDICARE (M) PART A Jul 04, 2016 PART A [id number] [phone] RICHARDSO N,ELI PATIENT MEDICARE (WNR) MEDICARE (M) PART B Jul 04, 2016 PART B [id number] RICHARDSO N,ELI PATIENT MEDICARE (WNR) MEDICARE (M) PART B Jul 04, 2016 PART B [id number] RICHARDSO N,ELI PATIENT MEDICARE (WNR) MEDICARE (M) PART A Jul 04, 2016 PART A [id number] EMMASO N,ELI PATIENT MEDICARE (WNR) MEDICARE (M) PART B Jul 04, 2016 PART B [id number] EMMASO N,ELI PATIENT PRIME THERAPEUTI CS RX PRESCRIPT ION RX PLAN Jun 03, 2013 [id number] [phone] EMMASO N,ELI PATIENT Selected Encounter This section includes the information on record at ME for the Encounter. Date/Time Encounter Type Encounter Description Reason Pro vider Source Nov 27, 2024 11:44 AM Inpatient Visit ADMIN PAT ACTIVTIES (MASNONCT) VISHAL FISHER Encounter Template Text not used by ME [...] Appointment Type Appointme nt Facility Name Jan 25, 2025 11:05 AM AMBULATORY - MEDICINE [facility] Jan 27, 2025 06:00 AM AMBULATORY - NONE [facility] Jan 27, 2025 06:15 AM AMBULATORY - MEDICINE [facility] Jan 28, 2025 02:00 PM AMBULATORY - MEDICINE [facility] 2025 01:00 PM AMBULATORY - MEDICINE [facility] Active, Pending, and Scheduled Orders This [...] Date/Time Test Type Test Details Facility Name October 20, 2024 04:34 PM Procedure Order CP ELECTRO PHYSIOLOGY STL CP ELECTROPHYSIOLOGY STL [facility] [employer] October 23, 2024 02:40 PM Procedure Order CP SWATI ECH OCARDIOGRAM [facility] WSATI FUTURE CARE ECHOCARDIOGRAM STL [facility] [employer] [facility] Nov 27, 2024 11:41 AM Procedure Order CP EKG STL CP EKG - STL Proc Bedside [facility] Lab Results: +/- 30 days of [...] Unit Interpretation Reference Range Specimen Type Comment Nov 28, 2024 08:16 AM [facility] MAGNESIUM PLASMA Specimen Type: PLASMA Comment: No hemolysis noted. Ordering Provider: INOCENCIA TITUS Report Released Date/Time: Nov 27, 2024 07:13 PM Reporting Lab: [facility] [address] [facility] [address] Performing Lab: [facility] [address] [facility] [address] MAGNESIUM 2.1 mg/dL 1.6-2.6 Nov 28, 2024 08:16 AM [facility] RENAL PANEL PLASMA Specimen Type: PLASM A Comment: No hemolysis noted. Ordering Provider: INOCENCIA TITUS Report Released Date/Time: Nov 27, 2024 07:13 PM Reporting Lab: [address] [address] Performing Lab: [address] [address] CREATININE 1.15 mg/dL 0.7-1.3 UREA NITROGEN 13.3 mg/dL 9.0-25.0 GLUCOSE 104 mg/dL H 72-99 SODIUM 139 meq/L 136-145 POTASSIUM 4.1 meq/L 3.5-5 CHLORIDE 105 meq/L 98-107 CARBON DIOXIDE 28 meq/L 22-31 CALCIUM 9.0 mg/dL 8.4-10.4 PHOSPHOROUS 2.8 mg/dL 2.3-4.7 ALBUMIN 3.6 g/dL 3.4-5 EGFR (CKD-EPI 2020) 69.8 >60 Nov 27, 2024 06:35 PM [facility] CBC BLOOD Specimen Type: BLOOD No comment entered. Ordering Provider: LIDIA SWANSON Report Released Date/Time: Nov 25, 2024 04:28 PM Reporting Lab: [address] [address] Performing Lab: [address] [address] WBC 9.5 10*3/uL 3.6-11.2 RBC 4.19 10*6/uL 4.10-5.70 HGB 13.7 g/dL 13.1-16.8 HCT 42.3 38.2-48.4 MCV 101.0 fL H 80.0-100.0 MCH 32.7 pg 27.0-34.0 MCHC 32.4 g/dL L 33.0-36.0 PLT 222 10*3/uL 150-400 MPV 10.6 fL 7.5-11.2 RDW 14.1 11.8-15.1 LYMPHOCYTES, AUTO % 17 MONOCYTES, AUTO % 9 NEUTROPHILS, AUTO % 72 EOSINOPHILS, AUTO % 2 BASOPHILS, AUTO % 1 LYMPHOCYTES, ABSOLUTE 1.61 10*3/uL 0.77- 4.50 MONOCYTES, ABSOLUTE 0.84 10*3/uL H 0.19-0. 80 NEUTROPHILS, ABSOLUTE 6.83 10*3/uL 2.10- 8.00 EOSINOPHILS, ABSOLUTE 0.16 10*3/uL 0.00- 0.60 BASOPHILS, ABSOLUTE 0.06 10*3/uL 0.00-0. 20 Nov 27, 2024 02:46 PM [facility] RENAL PANEL PLASMA Specimen Type: PLASM A Comment: No hemolysis noted. Ordering Provider: LIDIA SWANSON Report Released Date/Time: Nov 25, 2024 03:08 PM Reporting Lab: [address] [address] Performing Lab: [address] [address] CREATININE 1.20 mg/dL 0.7-1.3 UREA NITROGEN 15.1 mg/dL 9.0-25.0 GLUCOSE 137 mg/dL H 72-99 SODIUM 140 meq/L 136-145 POTASSIUM 4.1 meq/L 3.5-5 CHLORIDE 106 meq/L 98-107 CARBON DIOXIDE 29 meq/L 22-31 CALCIUM 8.9 mg/dL 8.4-10.4 PHOSPHOROUS 2.3 mg/dL 2.3-4.7 ALBUMIN 3.7 g/dL 3.4-5 EGFR (CKD-EPI 2020) 66.3 >60 Nov 27, 2024 02:00 PM [facility] MAGNESIUM PLASMA Specimen Type: PLASM A Comment: No hemolysis noted. Ordering Provider: LIDIA SWANSON Report Released Date/Time: Nov 26, 2024 09:37 AM Reporting Lab: [address] [address] Performing Lab: [address] [address] MAGNESIUM 2.4 mg/dL 1.6-2.6 Nov 27, 2024 07:29 AM [facility] B12 SERUM Specimen Type: SERUM No comment entered. Ordering Provider: LIDIA SWANSON Report Released Date/Time: Nov 26, 2024 08:37 PM Reporting Lab: [address] [address] Performing Lab: [address] [address] B12 418 pg/mL 213-816 Nov 27, 2024 07:29 AM [facility] FOLATE (STL-MA) SERUM Specimen Type: SERUM No comment entered. Ordering Provider: LIDIA SWANSON Report Released Date/Time: Nov 26, 2024 08:37 PM Reporting Lab: [facility] [address] [place] [address] Performing Lab: [facility] [address] [place] [phone] FOLATE (STL-MA) 6.7 ng/mL L 7-20 Nov 27, 2024 06:20 AM [facility] PHOSPHOROUS PLASMA Specimen Type: PLASM A Comment: No hemolysis noted. Ordering Provider: MARICRUZ HARDY Report Released Date/Time: Nov 27, 2024 05:38 AM Reporting Lab: [address] [address] Performing Lab: [facility] [address] [place] [phone] PHOSPHOROUS 4.1 mg/dL 2.3-4.7 Nov 27, 2024 06:20 AM [facility] MAGNESIUM PLASMA Specimen Type: PLASM A Comment: No hemolysis noted. Ordering Provider: MARICRUZ HARDY Report Released Date/Time: Nov 27, 2024 05:33 AM Reporting Lab: [address] [address] Performing Lab: [address] [address] MAGNESIUM 2.8 mg/dL H 1.6-2.6 Nov 27, 2024 06:20 AM [facility] BASIC METABOLIC PANEL PLASMA Specimen Type: PL ASMA Comment: No hemolysis noted. Ordering Provider: MARICRUZ HARDY Report Released Date/Time: Nov 27, 2024 05:33 AM Reporting Lab: [address] [address] Performing Lab: [address] [address] CREATININE 1.18 mg/dL 0.7-1.3 UREA NITROGEN 13.7 mg/dL 9.0-25.0 GLUCOSE 106 mg/dL H 72-99 SODIUM 141 meq/L 136-145 POTASSIUM 4.4 meq/L 3.5-5 CHLORIDE 104 meq/L 98-107 CARBON DIOXIDE 26 meq/L 22-31 CALCIUM 8.6 mg/dL 8.4-10.4 EGFR (CKD-EPI 2020) 67.6 >60 Nov 26, 2024 07:45 PM [facility] CBC BLOOD Specimen Type: BLOOD No comment entered. Ordering Provider: LIDIA SWANSON Report Released Date/Time: Nov 25, 2024 04:28 PM Reporting Lab: [address] [address] Performing Lab: [address] [address] WBC 9.3 10*3/uL 3.6-11.2 RBC 4.37 10*6/uL 4.10-5.70 HGB 14.0 g/dL 13.1-16.8 HCT 44.3 38.2-48.4 MCV 101.4 fL H 80.0-100.0 MCH 32.0 pg 27.0-34.0 MCHC 31.6 g/dL L 33.0-36.0 PLT 232 10*3/uL 150-400 MPV 10.6 fL 7.5-11.2 RDW 13.7 11.8-15.1 LYMPHOCYTES, AUTO % 19 MONOCYTES, AUTO % 9 NEUTROPHILS, AUTO % 70 EOSINOPHILS, AUTO % 2 BASOPHILS, AUTO % 1 LYMPHOCYTES, ABSOLUTE 1.74 10*3/uL 0.77- 4.50 MONOCYTES, ABSOLUTE 0.83 10*3/uL H 0.19-0. 80 NEUTROPHILS, ABSOLUTE 6.43 10*3/uL 2.10- 8.00 EOSINOPHILS, ABSOLUTE 0.14 10*3/uL 0.00- 0.60 BASOPHILS, ABSOLUTE 0.06 10*3/uL 0.00-0. 20 Nov 26, 2024 02:14 PM [facility] RENAL PANEL PLASMA Specimen Type: PLASM A Comment: No hemolysis noted. Ordering Provider: LIDIA SWANSON Report Released Date/Time: Nov 25, 2024 03:08 PM Reporting Lab: [address] [address] Performing Lab: [address] [address] CREATININE 1.21 mg/dL 0.7-1.3 UREA NITROGEN 13.4 mg/dL 9.0-25.0 GLUCOSE 118 mg/dL H 72-99 SODIUM 139 meq/L 136-145 POTASSIUM 4.4 meq/L 3.5-5 CHLORIDE 106 meq/L 98-107 CARBON DIOXIDE 30 meq/L 22-31 CALCIUM 9.0 mg/dL 8.4-10.4 PHOSPHOROUS 1.8 mg/dL L 2.3-4.7 ALBUMIN 3.6 g/dL 3.4-5 EGFR (CKD-EPI 2020) 65.6 >60 Nov 26, 2024 02:00 PM [facility] MAGNESIUM PLASMA Specimen Type: PLASM A Comment: No hemolysis noted. Ordering Provider: LIDIA SWANSON Report Released Date/Time: Nov 26, 2024 09:37 AM Reporting Lab: [address] [address] Performing Lab: [address] [address] MAGNESIUM 1.8 mg/dL 1.6-2.6 Nov 25, 2024 09:00 PM [facility] MRSA SURVL NARES DNA NARES Specimen Type: XIOMARA ES Comment: Qualitative real-time PCR test for the rapid detection of methicillin-resistant Staphylococcus aureus (MRSA) DNA from nasal swabs. A negative result does not preclude infection with the agent(s) tested and should not be used as the sole basis for treatment or other patient management decisions. A positive test does not necessarily indicate the presence of viable organisms, following bacterial culture to recover the organism for further characterization and susceptibility testing. All results must be combined with clinical observations, patient history, and epidemiological information for final interpretation. Ordering Provider: ZAKIYA FISHER Report Released Date/Time: Nov 25, 2024 08:59 PM Reporting Lab: [address] [address] Performing Lab: [place] [address] [place] [address] MRSA SURVL NARES DNA Negative Negative Nov 25, 2024 07:05 PM [facility] CBC BLOOD Specimen Type: BLOOD No comment entered. Ordering Provider: LIDIA SWANSON Report Released Date/Time: Nov 25, 2024 04:28 PM Reporting Lab: [address] [address] Performing Lab: [address] [address] WBC 8.8 10*3/uL 3.6-11.2 RBC 4.00 10*6/uL L 4.10-5.70 HGB 12.9 g/dL L 13.1-16.8 HCT 40.2 38.2-48.4 MCV 100.5 fL H 80.0-100.0 MCH 32.3 pg 27.0-34.0 MCHC 32.1 g/dL L 33.0-36.0 PLT 209 10*3/uL 150-400 MPV 10.7 fL 7.5-11.2 RDW 14.1 11.8-15.1 LYMPHOCYTES, AUTO % 21 MONOCYTES, AUTO % 10 NEUTROPHILS, AUTO % 65 EOSINOPHILS, AUTO % 3 BASOPHILS, AUTO % 1 LYMPHOCYTES, ABSOLUTE 1.86 10*3/uL 0.77- 4.50 MONOCYTES, ABSOLUTE 0.92 10*3/uL H 0.19-0. 80 NEUTROPHILS, ABSOLUTE 5.72 10*3/uL 2.10- 8.00 EOSINOPHILS, ABSOLUTE 0.22 10*3/uL 0.00- 0.60 BASOPHILS, ABSOLUTE 0.08 10*3/uL 0.00-0. 20 Nov 25, 2024 06:43 PM [facility] MAGNESIUM PLASMA Specimen Type: PLASM A Comment: No hemolysis noted. Ordering Provider: LIDIA SWANSON Report Released Date/Time: Nov 25, 2024 04:22 PM Reporting Lab: [address] [address] Performing Lab: [address] [address] MAGNESIUM 1.9 mg/dL 1.6-2.6 Nov 25, 2024 06:43 PM [facility] PHOSPHOROUS PLASMA Specimen Type: PLASM A Comment: No hemolysis noted. Ordering Provider: LIDIA SWANSON Report Released Date/Time: Nov 25, 2024 04:28 PM Reporting Lab: [facility] [address] [place] [phone] Performing Lab: [address] [address] PHOSPHOROUS 2.5 mg/dL 2.3-4.7 Nov 25, 2024 06:43 PM [facility] COMPREHENSIVE METABOLIC PANEL PLASMA Specimen Type: PLASMA Comment: No hemolysis noted. Ordering Provider: LIDIA SWANSON Report Released Date/Time: Nov 25, 2024 04:22 PM Reporting Lab: [address] [address] Performing Lab: [address] [address] CREATININE 1.27 mg/dL 0.7-1.3 UREA NITROGEN 15.7 mg/dL 9.0-25.0 GLUCOSE 142 mg/dL H 72-99 SODIUM 139 meq/L 136-145 POTASSIUM 3.2 meq/L L 3.5-5 CHLORIDE 105 meq/L 98-107 CARBON DIOXIDE 26 meq/L 22-31 CALCIUM 8.7 mg/dL 8.4-10.4 PROTEIN 6.6 g/dL 6-8.6 ALBUMIN 3.4 g/dL 3.4-5 TOTAL BILIRUBIN 0.4 mg/dL 0.2-1.2 ALKALINE PHOSPHATASE 99 U/L 40-150 AST/SGOT 9 U/L 5-34 ALT/SGPT 7 U/L L 8-40 EGFR (CKD-EPI 2020) 61.9 >60 Vital Signs: All taken on the encounter date This section contains inpatient and outpatient Vital Signs collected on the date of the Encounter. Date/Time Temperature Pulse Blood Pressure Respiratory Rate SP02 Pain Height Weight Body Mass Index Source Nov 27, 2024 11:32 PM 97.9 F 64 /min 122/49 mm[Hg] 18 /min 93 % 0 [facility] Nov 27, 2024 08:28 PM 97.8 F 67 /min 132/75 mm[Hg] 18 /min 94 % [address] [facility] Nov 27, 2024 04:34 PM 97.4 F 68 /min 160/99 mm[Hg] 18 /min 94 % 0 [facility] Nov 27, 2024 12:24 PM 97.6 F 70 /min 165/93 mm[Hg] 18 /min 95 % [address] [facility] Nov 27, 2024 07:[address] [facility] Encounter Notes: All associated encounter notes This section contains the clinical notes associated to the Encounter. Date/Time Encounter Note(s) Provider Source Nov 27, 2024 11:44 AM ANESTHESIOLOGY JIMMIE WSHEET: LOCAL TITLE: ANES INTRA-OP FLOWSHEET ST STANDARD TITLE: ANESTHESIOLOGY FLOWSHEET DATE OF NOTE: NOV 27, 2024@11:44 ENTRY DATE: NOV 27, 2024@11:44:55 AUTHOR: VISHAL FISHER COSIGNER: URGENCY: STATUS: COMPLETED Patient: ELI RUELAS SSN: [id number] Date of Operation: 11/27/2024 Surgery Start Time: Surgery End Time: Anesthesia Care Start: 11/27/2024 11:22 Anesthesia Care End: 11/27/2024 11:43 Anesthesia Method: Monitored 11/27/2024 11:22 (Primary), Level Of Consciousness: Sedated, Monitors Applied, Oxygen Therapy: Nasal Cannula, EtCO2 Verified: Waveform Positioning: Head Neutral, Head And Neck In Alignment With Spine, Pressure Points Padded & Checked, Eyes, Ears And Nose Free Of Pressure ASA Number: 3 Procedure: cardioversion Diagnosis: a-fib Holding, Anesthesia, PACU Drugs: ------- Lidocaine: 100 mg Propofol: 70 mg Holding, Anesthesia, PACU Fluids: -------- Resources: Headrest - Pillow Staff: --------- VISHAL FISHER PRIN. ANES. MUTHUSAMY, KARTHIK, ANES. SUPER. Procedure Date: 11/27/2024 Procedure Start Time: 11/27/2024 11:39 Procedure End Time: 11/27/2024 11:39 /loreta/ VISHAL FISHER CRNA Signed: 11/27/2024 11:44 VISHAL FISHER [facility]
--- OUTSIDE RECORDS SUMMARY | 2024-12-14 17:52 | XMS_ITS | Encounter Summary ---
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 [facility] [place] [facility] [place] Address [address] [place] [address] Care Team Providers Care Event Specialist Product Demonstrator Name Role Phone JESSICA KAY Primary Care [...] ACTIV E [place]IGH Jun 03, 2013 [phone] JOSEPHINE DiamondROSITA SPOUSE MEDICARE (WNR) MEDICARE (M) PART B Jul 04, 2016 PART B [id number] JOSEPHINE DiamondELI PATIENT MEDICARE (WNR) MEDICARE (M) PART A Jul 04, 2016 PART A [id number] RICHARDSO N,ELI PATIENT MEDICARE (WNR) MEDICARE (M) PART A Jul 04, 2016 PART A [id number] EMMASO N,ELI PATIENT MEDICARE (WNR) MEDICARE (M) PART A Jul 04, 2016 PART A [id number] EMMASO N,ELI PATIENT MEDICARE (WNR) MEDICARE (M) PART B Jul 04, 2016 PART B [id number] EMMASO N,ELI PATIENT MEDICARE (WNR) MEDICARE (M) PART B Jul 04, 2016 PART B [id number] EMMASO N,ELI PATIENT MEDICARE (WNR) MEDICARE (M) PART A Jul 04, 2016 PART A [id number] EMMASO N,ELI PATIENT MEDICARE (WNR) MEDICARE (M) PART B Jul 04, 2016 PART B [id number] [id number] EMMASO N,ELI PATIENT PRIME THERAPEUTI CS RX PRESCRIPT ION RX PLAN Jun 03, 2013 [id number] [phone] EMMASO N,ELI PATIENT Selected Encounter This section includes the information on record at [place] for the Encounter. Date/Time Encounter Type Encounter Description Reason Provider Source Nov 26, 2024 01:21 PM MTMS BY PHARM ADDL 15 MIN CLINICAL PHARMACY ICD-10-CM Z51.81 Encounter for therapeutic drug level monitoring YUE MAYA Encounter Template Text not used by [place] Assessments - Encounter Diagnoses This section includes the primary and secondary diagnoses documented for the Encounter. 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 This section includes future appointments and future orders which are active, pending or scheduled. Future Appointments This section includes appointments that were scheduled to occur 6 months from the date of the Encounter, up to a maximum of 20 appointments. The data comes from all [facility]. Appointment Date/Time Appointment Type Appointme nt Facility Name Jan 25, 2025 11:05 AM AMBULATORY - MEDICINE [facility] Jan 27, 2025 06:00 AM AMBULATORY - NONE [facility] Jan 27, 2025 06:15 AM AMBULATORY - MEDICINE [facility] Jan 28, 2025 02:00 PM AMBULATORY MEDICINE [facility] 2025 01:[address] [facility] Active, Pending, and Scheduled Orders This section includes a listing of several types of active, pending, and scheduled orders, including clinic medications orders, diagnostic test orders, procedure orders and consult orders; where the start date of the order is 45 days before the date of the Encounter or 45 days after the date of theEncounter. The data comes from all [facility]. Test Date/Time Test Type Test Details Facility Name October 20, 2024 04:34 PM Procedure Order CP ELECTRO PHYSIOLOGY STL CP ELECTROPHYSIOLOGY STL [facility] Older Adult Social Work Specialist's Choice [facility] October 23, 2024 02:40 PM Procedure Order CP SWATI ECH OCARDIOGRAM JOSELYN SWATI FUTURE CARE ECHOCARDIOGRAM STL [facility] Older Adult Social Work Specialist's [facility] Nov 27, 2024 11:41 AM Procedure Order CP EKG STL CP EKG - STL Proc Bedside [facility] Lab Results: +/- 30 days of the encounter This section includes the Chemistry and Hematology Lab Results on record with [place] for the patient. Radiology Reports and Pathology Reports are provided separately, in subsequent sections. Lab Results This section contains the Chemistry/Hematology Results that were resulted 30 days before or 30 daysafter the date of the Encounter. Date/Time Source Result Type Result - Unit Interpretation Reference Range Specimen Type Comment Nov 28, 2024 08:16 AM [facility] MAGNESIUM PLASMA Specimen Type: PLASMA Comment: No hemolysis noted. Ordering Provider: INOCENCIA TITUS Report Released Date/Time: Nov 27, 2024 07:13 PM Reporting Lab: [facility] [address] [facility] [address] Performing Lab: [address] [address] MAGNESIUM 2.1 mg/dL 1.6-2.6 Nov 28, 2024 08:16 AM [facility] RENAL PANEL PLASMA Specimen Type: PLASM A Comment: No hemolysis noted. Ordering Provider: INOCENCIA TITUS Report Released Date/Time: Nov 27, 2024 07:13 PM Reporting Lab: [address] [address] Performing Lab: [address] [address] CREATININE 1.15 mg/dL 0.7-1.3 UREA NITROGEN 13.3 mg/dL 9.0-25.0 GLUCOSE 104 mg/dL H 72-99 SODIUM 139 meq/L 136-145 POTASSIUM 4.1 meq/L 3.5-5 CHLORIDE 105 meq/L 98-107 CARBON DIOXIDE 28 meq/L 22-31 CALCIUM 9.0 mg/dL 8.4-10.4 PHOSPHOROUS 2.8 mg/dL 2.3-4.7 ALBUMIN 3.6 g/dL 3.4-5 EGFR (CKD-EPI 2020) 69.8 >60 Nov 27, 2024 06:35 PM [facility] CBC BLOOD Specimen Type: BLOOD No comment entered. Ordering Provider: LIDIA SWANSON Report Released Date/Time: Nov 25, 2024 04:28 PM Reporting Lab: [address] [address] Performing Lab: [address] [address] WBC 9.5 10*3/uL 3.6-11.2 RBC 4.19 10*6/uL [...] 0.00-0. 20 Nov 27, 2024 02:46 PM [facility] RENAL PANEL PLASMA Specimen Type: PLASM A Comment: No hemolysis noted. Ordering Provider: LIDIA SWANSON Report Released Date/Time: Nov 25, 2024 03:08 PM Reporting Lab: [address] [address] Performing Lab: [address] [address] CREATININE 1.20 mg/dL 0.7-1.3 UREA NITROGEN 15.1 mg/dL 9.0-25.0 GLUCOSE 137 mg/dL H 72-99 SODIUM 140 meq/L 136-145 POTASSIUM 4.1 meq/L 3.5-5 CHLORIDE 106 meq/L 98-107 CARBON DIOXIDE 29 meq/L 22-31 CALCIUM 8.9 mg/dL 8.4-10.4 PHOSPHOROUS 2.3 mg/dL 2.3-4.7 ALBUMIN 3.7 g/dL 3.4-5 EGFR (CKD-EPI 2020) 66.3 >60 Nov 27, 2024 02:00 PM [facility] MAGNESIUM PLASMA Specimen Type: PLASM A Comment: No hemolysis noted. Ordering Provider: LIDIA SWANSON Report Released Date/Time: Nov 26, 2024 09:37 AM Reporting Lab: [address] [address] Performing Lab: [address] [place] [address] MAGNESIUM 2.4 mg/dL 1.6-2.6 Nov 27, 2024 07:29 AM [facility] B12 SERUM Specimen Type: SERUM No comment entered. Ordering Provider: LIDIA SWANSON Report Released Date/Time: Nov 26, 2024 08:37 PM Reporting Lab: [address] [address] Performing Lab: [place] [address] [facility] [address] B12 418 pg/mL 213-816 Nov 27, 2024 07:29 AM [facility] FOLATE (L-MA) SERUM Specimen Type: SERUM No comment entered. Ordering Provider: LIDIA SWANSON Report Released Date/Time: Nov 26, 2024 08:37 PM Reporting Lab: [address] [address] Performing Lab: [place] [address] [facility] [address] FOLATE (L-MA) 6.7 ng/mL L 7-20 Nov 27, 2024 06:20 AM [facility] PHOSPHOROUS PLASMA Specimen Type: PLASM A Comment: No hemolysis noted. Ordering Provider: MARICRUZ HARDY Report Released Date/Time: Nov 27, 2024 05:38 AM Reporting Lab: [address] [address] Performing Lab: [address] [address] PHOSPHOROUS 4.1 mg/dL 2.3-4.7 Nov 27, 2024 06:20 AM [facility] MAGNESIUM PLASMA Specimen Type: PLASM A Comment: No hemolysis noted. Ordering Provider: MARICRUZ HARDY Report Released Date/Time: Nov 27, 2024 05:33 AM Reporting Lab: [place] [address] [facility] [address] Performing Lab: [address] [address] MAGNESIUM 2.8 mg/dL H 1.6-2.6 Nov 27, 2024 06:20 AM [facility] BASIC METABOLIC PANEL PLASMA Specimen Type: PL ASMA Comment: No hemolysis noted. Ordering Provider: MARICRUZ HARDY Report Released Date/Time: Nov 27, 2024 05:33 AM Reporting Lab: [address] [address] Performing Lab: [address] [address] CREATININE 1.18 mg/dL 0.7-1.3 UREA NITROGEN 13.7 mg/dL 9.0-25.0 GLUCOSE 106 mg/dL H 72-99 SODIUM 141 meq/L 136-145 POTASSIUM 4.4 meq/L 3.5-5 CHLORIDE 104 meq/L 98-107 CARBON DIOXIDE 26 meq/L 22-31 CALCIUM 8.6 mg/dL 8.4-10.4 EGFR (CKD-EPI 2020) 67.6 >60 Nov 26, 2024 07:45 PM [facility] CBC BLOOD Specimen Type: BLOOD No comment entered. Ordering Provider: LIDIA SWANSON Report Released Date/Time: Nov 25, 2024 04:28 PM Reporting Lab: [address] [address] Performing Lab: [address] [address] WBC 9.3 10*3/uL 3.6-11.2 RBC 4.37 10*6/uL [...] 0.00-0. 20 Nov 26, 2024 02:14 PM [facility] RENAL PANEL PLASMA Specimen Type: PLASM A Comment: No hemolysis noted. Ordering Provider: LIDIA SWANSON Report Released Date/Time: Nov 25, 2024 03:08 PM Reporting Lab: [address] [address] Performing Lab: [address] [address] CREATININE 1.21 mg/dL 0.7-1.3 UREA NITROGEN 13.4 mg/dL 9.0-25.0 GLUCOSE 118 mg/dL H 72-99 SODIUM 139 meq/L 136-145 POTASSIUM 4.4 meq/L 3.5-5 CHLORIDE 106 meq/L 98-107 CARBON DIOXIDE 30 meq/L 22-31 CALCIUM 9.0 mg/dL 8.4-10.4 PHOSPHOROUS 1.8 mg/dL L 2.3-4.7 ALBUMIN 3.6 g/dL 3.4-5 EGFR (CKD-EPI 2020) 65.6 >60 Nov 26, 2024 02:00 PM [facility] MAGNESIUM PLASMA Specimen Type: PLASM A Comment: No hemolysis noted. Ordering Provider: LIDIA SWANSON Report Released Date/Time: Nov 26, 2024 09:37 AM Reporting Lab: [address] [address] Performing Lab: [address] [address] MAGNESIUM 1.8 mg/dL 1.6-2.6 Nov 25, 2024 09:00 PM [facility] MRSA SURVL NARES DNA NARES [...] Nov 25, 2024 08:59 PM Reporting Lab: [address] [address] Performing Lab: [address] [address] MRSA SURVL NARES DNA Negative Negative Nov 25, 2024 07:05 PM [facility] CBC BLOOD Specimen Type: BLOOD No comment entered. Ordering Provider: LIDIA SWANSON Report Released Date/Time: Nov 25, 2024 04:28 PM Reporting Lab: [address] [address] Performing Lab: [address] [address] WBC 8.8 10*3/uL 3.6-11.2 RBC 4.00 10*6/uL [...] 0.00-0. 20 Nov 25, 2024 06:43 PM [facility] MAGNESIUM PLASMA Specimen Type: PLASM A Comment: No hemolysis noted. Ordering Provider: LIDIA SWANSON Report Released Date/Time: Nov 25, 2024 04:22 PM Reporting Lab: [address] [address] Performing Lab: [address] [address] MAGNESIUM 1.9 mg/dL 1.6-2.6 Nov 25, 2024 06:43 PM [facility] PHOSPHOROUS PLASMA Specimen Type: PLASM A Comment: No hemolysis noted. Ordering Provider: LIDIA SWANSON Report Released Date/Time: Nov 25, 2024 04:28 PM Reporting Lab: [address] [address] Performing Lab: [address] [address] PHOSPHOROUS 2.5 mg/dL 2.3-4.7 Nov 25, 2024 06:43 PM [facility] COMPREHENSIVE METABOLIC PANEL PLASMA Specimen Type: PLASMA Comment: No hemolysis noted. Ordering Provider: LIDIA SWANSON Report Released Date/Time: Nov 25, 2024 04:22 PM Reporting Lab: [address] [address] Performing Lab: [address] [address] CREATININE 1.27 mg/dL 0.7-1.3 UREA NITROGEN 15.7 [...] Height Weight Body Mass Index Source Nov 26, 2024 08:33 PM 97.7 F 59 /min 151/91 mm[Hg] 20 /min 93 % 0 [facility] Nov 26, 2024 03:40 PM 97.4 F 62 /min 149/95 mm[Hg] 16 /min 95 % 0 [facility] Nov 26, 2024 11:58 AM 97.1 F 69 /min 119/85 mm[Hg] 20 /min 95 % [facility] Nov 26, 2024 08:30 AM 0 [facility] Nov 26, 2024 08:28 AM 97.7 F 63 /min 122/78 mm[Hg] 16 /min 94 % 1 [facility] Encounter Notes: All associated encounter notes This section contains the clinical notes associated to the Encounter. Date/Time Encounter Note(s) Provider Source Nov 26, 2024 01:21 PM INITIAL EVALUATION NOTE: LOCAL TITLE: ANTICOAGULATION INITIAL NOTE STANDARD TITLE: INITIAL EVALUATION NOTE DATE OF NOTE: NOV 26, 2024@13:21 ENTRY DATE: NOV 26, 2024@13:21:21 AUTHOR: SADIE HARRISON COSIGNER: YUE MAYA URGENCY: STATUS: COMPLETED ANTICOAGULATION INITIAL NOTE Has ADDENDA INPATIENT ANTICOAGULATION MONITORING NOTE ELI RUELAS is a 69 y/o evaluated today for anticoagulation management. HPI: Pt w/ PMH significant for OA, CKD, HLD, h/o ischemic CVA, and afib on apixaban who presents as a planned admission for dofetilide load as recommended by cardiology due to severe symptoms. Of note, patient reports he is no longer taking ASA or clopidogrel as he was instructed to stop. Apixaban was continued upon admission. The purpose of this note is for inpatient anticoagulation monitoring. Indication for anticoagulation: Atrial Fibrillation Home medication/dosage: Apixaban 5mg PO BID Anticoagulant start date: 05/2024 Outpatient regimen verified with patient during admission: YES Anticipated anticoagulation duration: Indefinite [id number] score: 4 (HTN, age, stroke) HAS-BLED Score: 2 (stroke, age) Active and Recently Outpatient Medications (excluding Supplies): Active Outpatient Medications Status 1) ALBUTEROL 90MCG (CFC-F) 200D ORAL INHL INHALE 2 PUFFS ORAL ACTIVE INHALATION FOUR TIMES A DAY SHAKE WELL. RINSE MOUTHPIECE FREQUENTLY TO PREVENT CLOGGING. Indication: FOR COPD 2) APIXABAN 5MG TAB TAKE ONE TABLET BY MOUTH TWICE A DAY ACTIVE Indication: FOR ANTICOAGULATION 3) METHOCARBAMOL 500MG TAB TAKE 1 TABLET [...] BY MOUTH EVERY EVENING ACTIVE 5) Non-VA [id number]/VILANTEROL2 5MCG 30D INH 1 PUFF ORAL ACTIVE INHALATION ONCE A DAY 8 Total Medications Active Inpatient Medications: 1) ALBUTEROL (CFC-F) INHL,ORAL INH ORAL QID 2 PUFFS 2) APIXABAN (PA-F) TAB,ORAL PO BID 5MG 3) LISINOPRIL TAB PO QDAILY 20MG 4) METOPROLOL SUCCINATE (SUST RELEASE) PO QDAILY 25MG 5) ROSUVASTATIN TAB PO QPM 20MG 6) METHOCARBAMOL TAB PO TID PRN 500MG 7) MELATONIN CAP/TAB PO QHS PRN 10MG 8) DOFETILIDE (PA-F) CAP,ORAL PO Q12H 500MCG Pertinent labs: HGB 12.9 L g/dL 11/25/2024 19:05 HCT 40.2 % 11/25/2024 19:05 PLT 209 10*3/uL 11/25/2024 19:05 CREATININE 1.27 mg/dL 11/25/2024 18:43 EGFR (CKD-EPI 2020) 61.9 11/25/2024 18:43 CrCl:75.4mL/min ALT/SGPT 7 L U/L 11/25/2024 18:43 AST/SGOT 9 U/L 11/25/2024 18:43 Weight 259.5 lb [117.71 kg] (11/25/2024 14:51) A/P: DOAC: - Patient prescribed apixaban 5mg PO BID for atrial fibrillation. Dose is appropriate for indication and patient's age, weight, and SCr. o Recommend to continue apixaban 5mg PO BID o Re-education completed at bedside, see counseling notes below Monitoring: - H/H - mildly decreased from baseline, no overt s/sx of bleeding - CTM - Plts - wnl - LFTs - wnl - SCr - stable - BUN/SCr and H/H/plt as ordered by medicine team. Recommend q24-48 hours labs per primary team. Continue routine monitoring of LFTs; likely do not need to be rechecked this admission unless clinically indicated Bridging: - n/a Significant drug interactions: - none Outpatient follow-up: - Patient is followed by outpatient anticoagulation clinic via DOAC dashboard. Follow up as needed by outpatient clinic - Will alert anticoagulation clinic of admission Medication: - Outpt apixaban rx is active with refills. Last filled 11/09/24 for 30 day supply. Patient reports adequate home supply. No refill needed at this time Counseling Notes: - Purpose of DOAC and how/when to take medication - Tablet/capsule identification and storage - Importance of medication adherence and management of missed doses - Signs/symptoms of bleeding and TE - Drug interactions (e.g. NSAIDS, ASA), required labs and follow-up - Risks associated with falling - Notifying PCP and anticoagulation clinic about any scheduled procedures/surgeries - Given DOAC handout with contact information Inpatient team alerted of above recommendations and plan. Pharmacy will continue to monitor inpatient anticoagulation unless otherwise instructed by team. 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
--- OUTSIDE RECORDS SUMMARY | 2024-12-14 17:52 | XMS_ITS | Encounter Summary ---
Author Name [facility] [place] Organization [facility] [place] Address [address] [place] [address] Care Team Providers Care Pyrometer Mechanic Name Role Phone JESSICA KAY Primary Care [...] ACTIV E [place] HIGH Jun 03, 2013 [id number] [phone] JOSEPHINE DiamondROSITA SPOUSE MEDICARE (WNR) MEDICARE (M) PART B Jul 04, 2016 PART B [id number] HERMES GRIMMY PATIENT MEDICARE (WNR) MEDICARE (M) PART A Jul 04, 2016 PART A [id number] RICHARDSO N,ELI PATIENT MEDICARE (WNR) MEDICARE (M) PART B Jul 04, 2016 PART B [id number] EMMASO N,ELI PATIENT MEDICARE (WNR) MEDICARE (M) PART A Jul 04, 2016 PART A [id number] EMMASO N,ELI PATIENT MEDICARE (WNR) MEDICARE (M) PART A Jul 04, 2016 PART A [id number] [phone] EMMASO N,ELI PATIENT MEDICARE (WNR) MEDICARE (M) PART B Jul 04, 2016 PART B [id number] [phone] EMMASO N,ELI PATIENT MEDICARE (WNR) MEDICARE (M) PART A Jul 04, 2016 PART A [id number] EMMASO NELI PATIENT MEDICARE (WNR) MEDICARE (M) PART B Jul 04, 2016 PART B [id number] [phone] JOSEPHINE NELI PATIENT PRIME THERAPEUTI CS RX PRESCRIPT ION RX PLAN Jun 03, 2013 [id number] [phone] JOSEPHINE NELI PATIENT Selected Encounter This section includes the information on record at [place] for the Encounter. Date/Time Encounter Type Encounter Description Reason Provider Source Nov 27, 2024 08:09 AM [facility] HOSP IP/OBS MODERATE 35 CARDIOLOGY ICD-10-CM I48.0 Paroxysmal atrial fibrillation DANE ACKERMAN [facility] Encounter Template Text not used by [place] Assessments - Encounter Diagnoses This section includes the primary and secondary diagnoses documented for the Encounter. Date/Time Primary/Secondary Diagnosis Diagnosis Name Provider Source Nov 27, 2024 04:00 PM PRIMARY Paroxysmal atrial fibrillation BARB GROSS [facility] Nov 27, 2024 04:00 PM SECONDARY Obesity, unspecified DANE ACKERMAN [facility] Plan of [...] The data comes from all [place] treatment [facility]. Appointment Date/Time Appointment Type Appointme nt Facility Name Jan 25, 2025 11:05 AM AMBULATORY - MEDICINE [facility] Jan 27, 2025 06:00 AM AMBULATORY - NONE [facility] Jan 27, 2025 06:15 AM AMBULATORY - MEDICINE [facility] Jan 28, 2025 02:00 PM AMBULATORY - MEDICINE [facility] 2025 01:00 PM AMBULATORY - MEDICINE [facility] Active, Pending, and Scheduled Orders This section includes a listing of several types of active, pending, and scheduled orders, including clinic medications orders, diagnostic test orders, procedure orders and consult orders; where the start date of the order is 45 days before the date of the Encounter or 45 days after the date of theEncounter. The data comes from all [facility]. Test Date/Time Test Type Test Details Facility Name October 20, 2024 04:34 PM Procedure Order CP ELECTRO PHYSIOLOGY STL CP ELECTROPHYSIOLOGY STL Proc Nitrate Operator's Choice [facility] October 23, 2024 02:40 PM Procedure Order CP SWATI ECH OCARDIOGRAM JOSELYN SWATI FUTURE CARE ECHOCARDIOGRAM STL [facility] Nov 27, 2024 11:41 AM Procedure Order CP EKG STL CP EKG - STL Proc Bedside [facility] Lab Results: +/- 30 days of the encounter This section includes the Chemistry and Hematology Lab Results on record with [place] for the patient. Radiology Reports and Pathology Reports are provided separately, in subsequent sections. Lab Results This section contains the Chemistry/Hematology Results that were resulted 30 days before or 30 daysafter the date of the Encounter. Date/Time Source Result Type Result - Unit Interpretation Reference Range Specimen Type Comment Nov 28, 2024 08:16 AM [facility] MAGNESIUM PLASMA Specimen Type: PLASMA Comment: No hemolysis noted. Ordering Provider: INOCENCIA TITUS Report Released Date/Time: Nov 27, 2024 07:13 PM Reporting Lab: [facility] [address] [facility] [address] Performing Lab: [facility] [address] [facility] [address] MAGNESIUM 2.1 mg/dL 1.6-2.6 Nov 28, 2024 08:16 AM [facility] RENAL PANEL PLASMA Specimen Type: PLASM A Comment: No hemolysis noted. Ordering Provider: INOCENCIA TITUS Report Released Date/Time: Nov 27, 2024 07:13 PM Reporting Lab: [address] [address] Performing Lab: [address] [address] CREATININE 1.15 mg/dL 0.7-1.3 UREA NITROGEN 13.3 mg/dL 9.0-25.0 GLUCOSE 104 mg/dL H 72-99 SODIUM 139 meq/L 136-145 POTASSIUM 4.1 meq/L 3.5-5 CHLORIDE 105 meq/L 98-107 CARBON DIOXIDE 28 meq/L 22-31 CALCIUM 9.0 mg/dL 8.4-10.4 PHOSPHOROUS 2.8 mg/dL 2.3-4.7 ALBUMIN 3.6 g/dL 3.4-5 EGFR (CKD-EPI 2020) 69.8 >60 Nov 27, 2024 06:35 PM [facility] CBC BLOOD Specimen Type: BLOOD No comment entered. Ordering Provider: LIDIA SWANSON Report Released Date/Time: Nov 25, 2024 04:28 PM Reporting Lab: [address] [address] Performing Lab: [address] [address] WBC 9.5 10*3/uL 3.6-11.2 RBC 4.19 10*6/uL [...] 0.00-0. 20 Nov 27, 2024 02:46 PM [facility] RENAL PANEL PLASMA Specimen Type: PLASM A Comment: No hemolysis noted. Ordering Provider: LIDIA SWANSON Report Released Date/Time: Nov 25, 2024 03:08 PM Reporting Lab: [address] [address] Performing Lab: [address] [address] CREATININE 1.20 mg/dL 0.7-1.3 UREA NITROGEN 15.1 mg/dL 9.0-25.0 GLUCOSE 137 mg/dL H 72-99 SODIUM 140 meq/L 136-145 POTASSIUM 4.1 meq/L 3.5-5 CHLORIDE 106 meq/L 98-107 CARBON DIOXIDE 29 meq/L 22-31 CALCIUM 8.9 mg/dL 8.4-10.4 PHOSPHOROUS 2.3 mg/dL 2.3-4.7 ALBUMIN 3.7 g/dL 3.4-5 EGFR (CKD-EPI 2020) 66.3 >60 Nov 27, 2024 02:00 PM [facility] MAGNESIUM PLASMA Specimen Type: PLASM A Comment: No hemolysis noted. Ordering Provider: LIDIA SWANSON Report Released Date/Time: Nov 26, 2024 09:37 AM Reporting Lab: [address] [address] Performing Lab: [address] [address] MAGNESIUM 2.4 mg/dL 1.6-2.6 Nov 27, 2024 07:29 AM [facility] B12 SERUM Specimen Type: SERUM No comment entered. Ordering Provider: LIDIA SWANSON Report Released Date/Time: Nov 26, 2024 08:37 PM Reporting Lab: [address] [address] Performing Lab: [address] [address] B12 418 pg/mL 213-816 Nov 27, 2024 07:29 AM [facility] FOLATE (L-MA) SERUM Specimen Type: SERUM No comment entered. Ordering Provider: LIDIA SWANSON Report Released Date/Time: Nov 26, 2024 08:37 PM Reporting Lab: [address] [address] Performing Lab: [address] [address] FOLATE (L-WV) 6.7 ng/mL L 7-20 Nov 27, 2024 06:20 AM [facility] MAGNESIUM PLASMA Specimen Type: PLASM A Comment: No hemolysis noted. Ordering Provider: MARICRUZ HARDY Report Released Date/Time: Nov 27, 2024 05:33 AM Reporting Lab: [address] [address] Performing Lab: [address] [address] MAGNESIUM 2.8 mg/dL H 1.6-2.6 Nov 27, 2024 06:20 AM [facility] PHOSPHOROUS PLASMA Specimen Type: PLASM A Comment: No hemolysis noted. Ordering Provider: MARICRUZ HARDY Report Released Date/Time: Nov 27, 2024 05:38 AM Reporting Lab: [address] [address] Performing Lab: [address] [address] PHOSPHOROUS 4.1 mg/dL 2.3-4.7 Nov 27, 2024 06:20 AM [facility] BASIC METABOLIC PANEL PLASMA Specimen Type: PL ASMA Comment: No hemolysis noted. Ordering Provider: MARICRUZ HARDY Report Released Date/Time: Nov 27, 2024 05:33 AM Reporting Lab: [address] [address] Performing Lab: [address] [address] CREATININE 1.18 mg/dL 0.7-1.3 UREA NITROGEN 13.7 mg/dL 9.0-25.0 GLUCOSE 106 mg/dL H 72-99 SODIUM 141 meq/L 136-145 POTASSIUM 4.4 meq/L 3.5-5 CHLORIDE 104 meq/L 98-107 CARBON DIOXIDE 26 meq/L 22-31 CALCIUM 8.6 mg/dL 8.4-10.4 EGFR (CKD-EPI 2020) 67.6 >60 Nov 26, 2024 07:45 PM [facility] CBC BLOOD Specimen Type: BLOOD No comment entered. Ordering Provider: LIDIA SWANSON Report Released Date/Time: Nov 25, 2024 04:28 PM Reporting Lab: [address] [address] Performing Lab: [address] [address] WBC 9.3 10*3/uL 3.6-11.2 RBC 4.37 10*6/uL [...] 0.00-0. 20 Nov 26, 2024 02:14 PM [facility] RENAL PANEL PLASMA Specimen Type: PLASM A Comment: No hemolysis noted. Ordering Provider: LIDIA SWANSON Report Released Date/Time: Nov 25, 2024 03:08 PM Reporting Lab: [address] [address] Performing Lab: [address] [address] CREATININE 1.21 mg/dL 0.7-1.3 UREA NITROGEN 13.4 mg/dL 9.0-25.0 GLUCOSE 118 mg/dL H 72-99 SODIUM 139 meq/L 136-145 POTASSIUM 4.4 meq/L 3.5-5 CHLORIDE 106 meq/L 98-107 CARBON DIOXIDE 30 meq/L 22-31 CALCIUM 9.0 mg/dL 8.4-10.4 PHOSPHOROUS 1.8 mg/dL L 2.3-4.7 ALBUMIN 3.6 g/dL 3.4-5 EGFR (CKD-EPI 2020) 65.6 >60 Nov 26, 2024 02:00 PM [facility] MAGNESIUM PLASMA Specimen Type: PLASM A Comment: No hemolysis noted. Ordering Provider: LIDIA SWANSON Report Released Date/Time: Nov 26, 2024 09:37 AM Reporting Lab: [address] [address] Performing Lab: [address] [address] MAGNESIUM 1.8 mg/dL 1.6-2.6 Nov 25, 2024 09:00 PM [facility] MRSA SURVL NARES DNA NARES [...] Nov 25, 2024 08:59 PM Reporting Lab: [address] [address] Performing Lab: [address] [address] MRSA SURVL NARES DNA Negative Negative Nov 25, 2024 07:05 PM [facility] CBC BLOOD Specimen Type: BLOOD No comment entered. Ordering Provider: LIDIA SWANSON Report Released Date/Time: Nov 25, 2024 04:28 PM Reporting Lab: [address] [address] Performing Lab: [address] [address] WBC 8.8 10*3/uL 3.6-11.2 RBC 4.00 10*6/uL [...] 0.00-0. 20 Nov 25, 2024 06:43 PM [facility] MAGNESIUM PLASMA Specimen Type: PLASM A Comment: No hemolysis noted. Ordering Provider: LIDIA SWANSON Report Released Date/Time: Nov 25, 2024 04:22 PM Reporting Lab: [address] [address] Performing Lab: [address] [address] MAGNESIUM 1.9 mg/dL 1.6-2.6 Nov 25, 2024 06:43 PM [facility] PHOSPHOROUS PLASMA Specimen Type: PLASM A Comment: No hemolysis noted. Ordering Provider: LIDIA SWANSON Report Released Date/Time: Nov 25, 2024 04:28 PM Reporting Lab: [address] [address] Performing Lab: [address] [address] PHOSPHOROUS 2.5 mg/dL 2.3-4.7 Nov 25, 2024 06:43 PM [facility] COMPREHENSIVE METABOLIC PANEL PLASMA Specimen Type: PLASMA Comment: No hemolysis noted. Ordering Provider: LIDIA SWANSON Report Released Date/Time: Nov 25, 2024 04:22 PM Reporting Lab: [address] [address] Performing Lab: [address] [address] CREATININE 1.27 mg/dL 0.7-1.3 UREA NITROGEN 15.7 [...] 122/49 mm[Hg] 18 /min 93 % 0 [facility] Nov 27, 2024 08:28 PM 97.8 F 67 /min 132/75 mm[Hg] 18 /min 94 % 0 [facility] Nov 27, 2024 04:34 PM 97.4 F 68 /min 160/99 mm[Hg] 18 /min 94 % 0 [facility] Nov 27, 2024 12:24 PM 97.6 F 70 /min 165/93 mm[Hg] 18 /min 95 % 0 [facility] Nov 27, 2024 07:46 AM 0 [facility] Encounter Notes: All associated encounter notes This section contains the clinical notes associated to the Encounter. Date/Time Encounter Note(s) Provider Source Nov 27, 2024 08:09 AM CARDIOLOGY INPATIE NT NOTE: LOCAL TITLE: CARDIOLOGY INPATIENT FOLLOW UP STL STANDARD TITLE: CARDIOLOGY INPATIENT NOTE DATE OF NOTE: NOV 27, 2024@08:09 ENTRY DATE: NOV 27, 2024@08:10:12 AUTHOR: BARB GROSS COSIGNER: DANE ACKERMAN URGENCY: STATUS: COMPLETED CARDIOLOGY INPATIENT FOLLOW UP STL Has ADDENDA CARDIOLOGY CONSULT FOLLOWUP NOTE SUBJECTIVE No acute events ovenright. Pt underwent DCCV earlier today, now in sinus felicity. Will continue with dose 4 tonight and dose 5 of Tikosyn tomorrow morning. PAST MEDICAL HISTORY 1) History of colonic polyp 2) Chronic [...] accident 18) PAF - Paroxysmal atrial fibrillation CURRENT MEDICATIONS Active Inpatient Medications (including Supplies): Active Inpatient Medications Status 1) ALBUTEROL (CFC-F) INHL,ORAL 2 PUFFS INH ORAL QID ACTIVE Indication: FOR COPD 2) APIXABAN (PA-F) TAB,ORAL 5MG PO BID ACTIVE Indication: FOR ANTICOAGULATION 3) LISINOPRIL TAB 20MG PO QDAILY ACTIVE Indication: FOR HIGH BLOOD PRESSURE 4) MELATONIN CAP/TAB 10MG PO QHS PRN for sleep ACTIVE Indication: FOR SLEEP 5) METHOCARBAMOL TAB 500MG PO TID PRN ACTIVE Indication: FOR MUSCLE SPASM 6) METOPROLOL SUCCINATE (SUST RELEASE) 25MG PO QDAILY ACTIVE Indication: ATRIAL FIBRILLATION 7) ROSUVASTATIN TAB 20MG PO QPM ACTIVE Indication: FOR HIGH CHOLESTEROL OBJECTIVE/DATA PHYSICAL EXAM Temperature: 97.7 F [36.5 C] (11/27/2024 07:45) BP: 146/101 (11/27/2024 07:45) Pulse: 67 (11/27/2024 07:45) Resp: 18 (11/27/2024 07:45) Height: 75 in [190.5 cm] (08/28/2024 13:35) Weight:259.5 lb [117.71 kg] (11/25/2024 14:51) General: NAD ENTM: Oropharynx clear, tongue and uvula midline Neck: Supple, full range of motion Lungs: Clear to auscultation bilaterally Heart: Rhythm regular, S1 normal, S2 physiologically split, no murmurs or gallops Abdomen: Soft, non-tender, non-distended, normal bowel sounds Extremities: No cyanosis, clubbing, or edema Skin: Warm, dry, well perfused Psych: Euthymic with congruent affect Neuro: Alert and oriented to person, place, time, and purpose LAB DATA No TROPONIN EO data found BRAIN NATRIURETIC PEPTIDE 356.1 H pg/mL 08/28/2024 14:18 SODIUM 139 mEq/L 11/26/2024 14:00 POTASSIUM 4.4 mEq/L 11/26/2024 14:00 CHLORIDE 106 mEq/L 11/26/2024 14:00 UREA NITROGEN 13.4 mg/dL 11/26/2024 14:00 CREATININE 1.21 mg/dL 11/26/2024 14:00 CALCIUM 9.0 mg/dL 11/26/2024 14:00 PROTEIN 6.6 g/dL 11/25/2024 18:43 ALBUMIN 3.6 g/dL 11/26/2024 14:00 ALKALINE PHOSPHATASE 99 U/L 11/25/2024 18:43 ALT/SGPT 7 L U/L 11/25/2024 18:43 AST/SGOT 9 U/L 11/25/2024 18:43 TOTAL BILIRUBIN 0.4 mg/dL 11/25/2024 18:43 CARBON DIOXIDE 30 mEq/L 11/26/2024 14:00 GLUCOSE 118 H mg/dL 11/26/2024 14:00 EGFR (CKD-EPI 2020) 65.6 11/26/2024 14:00 PHOSPHOROUS 1.8 L mg/dL 11/26/2024 14:00 WBC 9.3 10*3/uL 11/26/2024 20:00 RBC 4.37 10*6/uL 11/26/2024 20:00 HGB 14.0 g/dL 11/26/2024 20:00 HCT 44.3 % 11/26/2024 20:00 MCV 101.4 H fL 11/26/2024 20:00 MCH 32.0 pg 11/26/2024 20:00 MCHC 31.6 L g/dL 11/26/2024 20:00 RDW 13.7 % 11/26/2024 20:00 PLT 232 10*3/uL 11/26/2024 20:00 MPV 10.6 fL 11/26/2024 20:00 NEUTROPHILS, AUTO % 70 % 11/26/2024 20:00 LYMPHOCYTES, AUTO % 19 % 11/26/2024 20:00 MONOCYTES, AUTO % 9 % 11/26/2024 20:00 EOSINOPHILS, AUTO % 2 % 11/26/2024 20:00 BASOPHILS, AUTO % 1 % 11/26/2024 20:00 NEUTROPHILS, ABSOLUTE 6.43 10*3/uL 11/26/2024 20:00 LYMPHOCYTES, ABSOLUTE 1.74 10*3/uL 11/26/2024 20:00 MONOCYTES, ABSOLUTE 0.83 H 10*3/uL 11/26/2024 20:00 EOSINOPHILS, ABSOLUTE 0.14 10*3/uL 11/26/2024 20:00 BASOPHILS, ABSOLUTE 0.06 10*3/uL 11/26/2024 20:00 ASSESSMENT AND PLAN 69-year-old man with a history of right lung non-small cell cancer status post resection in 2020, perioperative atrial fibrillation from this status post 1 month of amiodarone, CVA by brain MRI in 2015, COPD, history of tobacco use-over 50 pack years quit 3 months ago, retinal emboli s/p loop recorder, is presenting to the hospital for Tikosyn loading. #Afib #Hx of CVA #COPD #Tobacco use disorder Recommendations -Continue Tikosyn 500mcg bid. Please obtain an EKG 2 hrs after each dose. Please call cardiology is QTc >550 (has RBBB) or increased >15% from baseline. -Continue Eliquis 5mg bid -Continue Metop succinate 25mg qdaily -Maintain K>4, Mg>2 -Consider sleep study outpatient -Tele monitoring Plan discussed with Dr. Ackerman. Thank you for this consult, cardiology will continue to assist with this patient's care. Please see final attending attestation for additional recommendations. Life Sustaining Treatment Orders /loreta/ Barb Gross MD Sports Teacher Signed: 11/27/2024 16:00 /loreta/ DANE ACKERMAN MD, FACC, FACP Staff Physician - Cardiology Cosigned: 11/27/2024 16:11 11/27/2024 ADDENDUM STATUS: COMPLETED Agree with above. On rounds this afternoon Mr. Ruelas remained in sinus rhythm. /loreta/ DANE ACKERMAN MD, FACC, FACP Staff Physician - Cardiology Signed: 11/27/2024 16:12 BARB GROSS [facility]
--- OUTSIDE RECORDS SUMMARY | 2024-12-14 17:52 | XMS_ITS | Encounter Summary ---
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 [place] Organization [facility] ([place] Address [address] [place] [address] Care Team Providers Care Summer Sessions Director Name Role Phone JESSICA KAY Primary [...] ACTIV E [place] HIGH Jun 03, 2013 [id number] [phone] JOSEPHINE DiamondROSITA SPOUSE MEDICARE (WNR) MEDICARE (M) PART B Jul 04, 2016 PART B [id number] [phone] JOSEPHINE DiamondELI PATIENT MEDICARE (WNR) MEDICARE (M) PART A Jul 04, 2016 PART A [id number] JOSEPHINE Diamond,ELI PATIENT MEDICARE (WNR) MEDICARE (M) PART A Jul 04, 2016 PART A [id number] [phone] RICHARDSO N,ELI PATIENT MEDICARE (WNR) MEDICARE (M) PART B Jul 04, 2016 PART B [id number] EMMASO N,ELI PATIENT MEDICARE (WNR) MEDICARE (M) PART A Jul 04, 2016 PART A [id number] EMMASO N,ELI PATIENT MEDICARE (WNR) MEDICARE (M) PART B Jul 04, 2016 PART B [id number] RICHARDSO N,ELI PATIENT MEDICARE (WNR) MEDICARE (M) PART A Jul 04, 2016 PART A [id number] [phone] EMMASO N,ELI PATIENT MEDICARE (WNR) MEDICARE (M) PART B Jul 04, 2016 PART B [id number] EMMASO N,ELI PATIENT PRIME THERAPEUTI CS RX PRESCRIPT ION RX PLAN Jun 03, 2013 [id number] [phone] EMMASO N,ELI PATIENT Selected Encounter This section includes the information on record at [place] for the Encounter. Date/Time Encounter Type Encounter Description Reason Provider Source October 06, 2024 02:05 PM Outpatient Encounter GENERAL INTERNAL MEDICINE WES GARCIA Encounter Template Text not used by [place] Plan of Treatment: Future Appointments (+ 6 months) and Future Tests (+/- 45 days) The Plan of Treatment section includes future care activities for the patient from all [place] treatmentfacilities. This section includes future appointments and future orders which are active, pending or scheduled. Future Appointments This section includes appointments that were scheduled to occur 6 months from the date of the Encounter, up to a maximum of 20 appointments. The data comes from all [place] treatment facilities. Appointment Date/Time Appointment Type Appointme nt Facility Name October 20, 2024 03:00 PM AMBULATORY - MEDICINE [facility] Nov 06, 2024 11:00 AM AMBULATORY - MEDICINE [facility] Jan 25, 2025 11:05 AM AMBULATORY - MEDICINE [facility] Jan 27, 2025 06:00 AM AMBULATORY - NONE [facility] Jan 27, 2025 06:15 AM AMBULATORY - MEDICINE [facility] Jan 28, 2025 02:00 PM AMBULATORY - MEDICINE [facility] 2025 01:00 PM AMBULATORY - MEDICINE [facility] Active, Pending, and Scheduled Orders This section includes a listing of several types of active, pending, and scheduled orders, including clinic medications orders, diagnostic test orders, procedure orders and consult orders; where the start date of the order is 45 days before the date of the Encounter or 45 days after the date of theEncounter. The data comes from all [place] treatment facilities. Test Date/Time Test Type Test Details Facility Name Sep 14, 2024 11:02 AM Consult Order CANCER TESSA [facility] CONSULT OUTPT STL Cons [facility] October 20, 2024 04:34 PM Procedure Order CP ELECTRO PHYSIOLOGY STL CP E[facility]HY[facility]OLOGY STL [facility] 23, 2024 02:40 PM Procedure Order CP SWATI ECH OCARDIOGRAM JOSELYN SWATI FUTURE CARE ECHOCARDIOGRAM STL [facility] Encounter Notes: All associated encounter notes This section contains the clinical notes associated to the Encounter. Date/Time Encounter Note(s) Provider Source Sep 22, 2024 02:05 PM NONVA NOTE: LOCAL TITLE: [facility] PRESENTING CARE COORD PLAN STANDARD TITLE: NONVA NOTE DATE OF NOTE: SEP 22, 2024@14:05 ENTRY DATE: OCTOBER 06, 2024@14:06:04 AUTHOR: ROSA TAI COSIGNER: URGENCY: STATUS: COMPLETED Emergency Notification Intake Date Presenting to the Facility: Sep Method of Contact: Notified from ECR worklist Notification ID: [id number] [facility] Referral #: [id number] [facility] Name: Hospital: [facility] Address: [facility] [address] City: [place] State: [place] Zip Code: [address] Chief complaint: CHEST PAIN AND SHORTNESS OF BREATH Disposition Unknown at time of intake note entry No records pertinent to this ER Visit found in JL. Faxed request for records to [facility]. /loreta/ ROSA TAI ADVANCED BEHAVIORAL TECHNICIAN Signed: 10/06/2024 14:12 Receipt Acknowledged By: 10/06/2024 14:21 /es/ ISAAC MERCADO REGISTERED NURSE for KYLER MORRISON 10/06/2024 16:08 /es/ [facility] [employer] ADULT NURSE PRACTITIONER ROSA TAI [facility]
--- OUTSIDE RECORDS SUMMARY | 2024-12-14 17:53 | XMS_ITS | Encounter Summary ---
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 Name Role Phone JESSICA KAY Primary Care [...] ACTIV E [place] HIGH Jun 03, 2013 [phone] JOSEPHINE DiamondROSITA SPOUSE MEDICARE (WNR) MEDICARE (M) PART B Jul 04, 2016 PART B [id number] [phone] HERMES GRIMMY PATIENT MEDICARE (WNR) MEDICARE (M) PART A Jul 04, 2016 PART A [id number] HERMES GRIMMY PATIENT MEDICARE (WNR) MEDICARE (M) PART B Jul 04, 2016 PART B [id number] RICHARDSO N,ELI PATIENT MEDICARE (WNR) MEDICARE (M) PART A Jul 04, 2016 PART A [id number] RICHARDSO N,ELI PATIENT MEDICARE (WNR) MEDICARE (M) PART A Jul 04, 2016 PART A [id number] RICHARDSO N,ELI PATIENT MEDICARE (WNR) MEDICARE (M) PART B Jul 04, 2016 PART B [id number] RICHARDSO N,ELI PATIENT MEDICARE (WNR) MEDICARE (M) PART A Jul 04, 2016 PART A [id number] EMMASO N,ELI PATIENT MEDICARE (WNR) MEDICARE (M) PART B Jul 04, 2016 PART B [id number] EMMASO NHERMESY PATIENT PRIME THERAPEUTI CS RX PRESCRIPT ION RX PLAN Jun 03, 2013 [id number] [phone] EMMASO N,ELI PATIENT Selected Encounter This section includes the information on record at [place] for the Encounter. Date/Time Encounter Type Encounter Description Reason Pro vider Source Nov 27, 2024 08:21 AM Inpatient Visit CARDIOLOGY IHE Encounter Template Text not used by [place] Plan of Treatment: Future Appointments (+ 6 months) and Future Tests (+/- 45 days) The Plan of Treatment section includes future care activities for the patient from all [place] treatmentfacilities. This section includes future appointments and future orders which are active, pending or scheduled. Future Appointments This section includes appointments that were scheduled to occur 6 months from the date of the Encounter, up to a maximum of 20 appointments. The data comes from all [place] treatment facilities. Appointment Date/Time Appointment Type Appointme nt Facility Name Jan 25, 2025 11:05 AM AMBULATORY - MEDICINE [facility] Jan 27, 2025 06:00 AM AMBULATORY - NONE [facility] Jan 27, 2025 06:15 AM AMBULATORY - MEDICINE [facility] Jan 28, 2025 02:00 PM AMBULATORY - MEDICINE [facility] 2025 01:00 PM AMBULATORY - MEDICINE [facility] Active, Pending, and Scheduled Orders This section includes a listing of several types of active, pending, and scheduled orders, including clinic medications orders, diagnostic test orders, procedure orders and consult orders; where the start date of the order is 45 days before the date of the Encounter or 45 days after the date of theEncounter. The data comes from all [place] treatment facilities. Test Date/Time Test Type Test Details Facility Name October 20, 2024 04:34 PM Procedure Order CP ELECTRO PHYSIOLOGY STL CP ELECTROPHYSIOLOGY STL Proc An Employee Sponsor Or Advocate And's Choice [facility] October 23, 2024 02:40 PM Procedure Order CP SWATI ECH OCARDIOGRAM JOSELYN SWATI FUTURE CARE ECHOCARDIOGRAM STL [facility] An Employee Sponsor Or Advocate And's [facility] Nov 27, 2024 11:41 AM Procedure Order CP EKG STL CP EKG - STL Proc Bedside [facility] Lab Results: +/- 30 days of the encounter This section includes the Chemistry and Hematology Lab Results on record with [place] for the patient. Radiology Reports and Pathology Reports are provided separately, in subsequent sections. Lab Results This section contains the Chemistry/Hematology Results that were resulted 30 days before or 30 daysafter the date of the Encounter. Date/Time Source Result Type Result - Unit Interpretation Reference Range Specimen Type Comment Nov 28, 2024 08:16 AM [facility] MAGNESIUM PLASMA Specimen Type: PLASMA Comment: No hemolysis noted. Ordering Provider: INOCENCIA TITUS Report Released Date/Time: Nov 27, 2024 07:13 PM Reporting Lab: [facility] [address] [address] Performing Lab: [facility] [address] [address] MAGNESIUM 2.1 mg/dL 1.6-2.6 Nov 28, 2024 08:16 AM [facility] RENAL PANEL PLASMA Specimen Type: PLASM A Comment: No hemolysis noted. Ordering Provider: INOCENCIA TITUS Report Released Date/Time: Nov 27, 2024 07:13 PM Reporting Lab: [facility] [address] [address] Performing Lab: [address] [address] CREATININE 1.15 mg/dL 0.7-1.3 UREA NITROGEN 13.3 mg/dL 9.0-25.0 GLUCOSE 104 mg/dL H 72-99 SODIUM 139 meq/L 136-145 POTASSIUM 4.1 meq/L 3.5-5 CHLORIDE 105 meq/L 98-107 CARBON DIOXIDE 28 meq/L 22-31 CALCIUM 9.0 mg/dL 8.4-10.4 PHOSPHOROUS 2.8 mg/dL 2.3-4.7 ALBUMIN 3.6 g/dL 3.4-5 EGFR (CKD-EPI 2020) 69.8 >60 Nov 27, 2024 06:35 PM [facility] CBC BLOOD Specimen Type: BLOOD No comment entered. Ordering Provider: LIDIA SWANSON Report Released Date/Time: Nov 25, 2024 04:28 PM Reporting Lab: [address] [address] Performing Lab: [address] [address] WBC 9.5 10*3/uL 3.6-11.2 RBC 4.19 10*6/uL [...] 0.00-0. 20 Nov 27, 2024 02:46 PM [facility] RENAL PANEL PLASMA Specimen Type: PLASM A Comment: No hemolysis noted. Ordering Provider: LIDIA SWANSON Report Released Date/Time: Nov 25, 2024 03:08 PM Reporting Lab: [facility] [address] [facility] [address] Performing Lab: [address] [address] CREATININE 1.20 mg/dL 0.7-1.3 UREA NITROGEN 15.1 mg/dL 9.0-25.0 GLUCOSE 137 mg/dL H 72-99 SODIUM 140 meq/L 136-145 POTASSIUM 4.1 meq/L 3.5-5 CHLORIDE 106 meq/L 98-107 CARBON DIOXIDE 29 meq/L 22-31 CALCIUM 8.9 mg/dL 8.4-10.4 PHOSPHOROUS 2.3 mg/dL 2.3-4.7 ALBUMIN 3.7 g/dL 3.4-5 EGFR (CKD-EPI 2020) 66.3 >60 Nov 27, 2024 02:00 PM [facility] MAGNESIUM PLASMA Specimen Type: PLASM A Comment: No hemolysis noted. Ordering Provider: LIDIA SWANSON Report Released Date/Time: Nov 26, 2024 09:37 AM Reporting Lab: [facility] [address] [facility] [address] Performing Lab: [address] [address] MAGNESIUM 2.4 mg/dL 1.6-2.6 Nov 27, 2024 07:29 AM [facility] B12 SERUM Specimen Type: SERUM No comment entered. Ordering Provider: LIDIA SWANSON Report Released Date/Time: Nov 26, 2024 08:37 PM Reporting Lab: [facility] [address] [facility] [address] Performing Lab: [address] [address] B12 418 pg/mL 213-816 Nov 27, 2024 07:29 AM [facility] FOLATE (L-ME) SERUM Specimen Type: SERUM No comment entered. Ordering Provider: LIDIA SWANSNO Report Released Date/Time: Nov 26, 2024 08:37 PM Reporting Lab: [facility] [address] [facility] [address] Performing Lab: [facility] [address] [place] [phone] FOLATE (L-ME) 6.7 ng/mL L 7-20 Nov 27, 2024 06:20 AM [facility] MAGNESIUM PLASMA Specimen Type: PLASM A Comment: No hemolysis noted. Ordering Provider: MARICRUZ HARDY Report Released Date/Time: Nov 27, 2024 05:33 AM Reporting Lab: [address] [address] Performing Lab: [address] [address] MAGNESIUM 2.8 mg/dL H 1.6-2.6 Nov 27, 2024 06:20 AM [facility] PHOSPHOROUS PLASMA Specimen Type: PLASM A Comment: No hemolysis noted. Ordering Provider: MARICRUZ HARDY Report Released Date/Time: Nov 27, 2024 05:38 AM Reporting Lab: [facility] [address] [place] [address] Performing Lab: [address] [address] PHOSPHOROUS 4.1 mg/dL 2.3-4.7 Nov 27, 2024 06:20 AM [facility] BASIC METABOLIC PANEL PLASMA Specimen Type: PL ASMA Comment: No hemolysis noted. Ordering Provider: MARICRUZ HARDY Report Released Date/Time: Nov 27, 2024 05:33 AM Reporting Lab: [address] [address] Performing Lab: [address] [address] CREATININE 1.18 mg/dL 0.7-1.3 UREA NITROGEN 13.7 mg/dL 9.0-25.0 GLUCOSE 106 mg/dL H 72-99 SODIUM 141 meq/L 136-145 POTASSIUM 4.4 meq/L 3.5-5 CHLORIDE 104 meq/L 98-107 CARBON DIOXIDE 26 meq/L 22-31 CALCIUM 8.6 mg/dL 8.4-10.4 EGFR (CKD-EPI 2020) 67.6 >60 Nov 26, 2024 07:45 PM [facility] CBC BLOOD Specimen Type: BLOOD No comment entered. Ordering Provider: LIDIA SWANSNO Report Released Date/Time: Nov 25, 2024 04:28 PM Reporting Lab: [address] [address] Performing Lab: [address] [address] WBC 9.3 10*3/uL 3.6-11.2 RBC 4.37 10*6/uL [...] 0.00-0. 20 Nov 26, 2024 02:14 PM [facility] RENAL PANEL PLASMA Specimen Type: PLASM A Comment: No hemolysis noted. Ordering Provider: LIDIA SWANSON Report Released Date/Time: Nov 25, 2024 03:08 PM Reporting Lab: [address] [address] Performing Lab: [facility] [address] [address] CREATININE 1.21 mg/dL 0.7-1.3 UREA NITROGEN 13.4 mg/dL 9.0-25.0 GLUCOSE 118 mg/dL H 72-99 SODIUM 139 meq/L 136-145 POTASSIUM 4.4 meq/L 3.5-5 CHLORIDE 106 meq/L 98-107 CARBON DIOXIDE 30 meq/L 22-31 CALCIUM 9.0 mg/dL 8.4-10.4 PHOSPHOROUS 1.8 mg/dL L 2.3-4.7 ALBUMIN 3.6 g/dL 3.4-5 EGFR (CKD-EPI 2020) 65.6 >60 Nov 26, 2024 02:00 PM [facility] MAGNESIUM PLASMA Specimen Type: PLASM A Comment: No hemolysis noted. Ordering Provider: LIDIA SWANSON Report Released Date/Time: Nov 26, 2024 09:37 AM Reporting Lab: [address] [address] Performing Lab: [address] [address] MAGNESIUM 1.8 mg/dL 1.6-2.6 Nov 25, 2024 09:00 PM [facility] MRSA SURVL NARES DNA NARES Specimen Type: [...] Nov 25, 2024 08:59 PM Reporting Lab: [address] [address] Performing Lab: [address] [address] MRSA SURVL NARES DNA Negative Negative Nov 25, 2024 07:05 PM [facility] CBC BLOOD Specimen Type: BLOOD No comment entered. Ordering Provider: LIDIA WSANSON Report Released Date/Time: Nov 25, 2024 04:28 PM Reporting Lab: [facility] [address] [facility] [address] Performing Lab: [address] [address] WBC 8.8 10*3/uL 3.6-11.2 RBC 4.00 10*6/uL [...] 0.00-0. 20 Nov 25, 2024 06:43 PM [facility] MAGNESIUM PLASMA Specimen Type: PLASM A Comment: No hemolysis noted. Ordering Provider: LIDIA SWANSON Report Released Date/Time: Nov 25, 2024 04:22 PM Reporting Lab: [address] [address] Performing Lab: [address] [address] MAGNESIUM 1.9 mg/dL 1.6-2.6 Nov 25, 2024 06:43 PM [facility] PHOSPHOROUS PLASMA Specimen Type: PLASM A Comment: No hemolysis noted. Ordering Provider: LIDIA SWANSON Report Released Date/Time: Nov 25, 2024 04:28 PM Reporting Lab: [facility] [address] [place] [address] Performing Lab: [address] [address] PHOSPHOROUS 2.5 mg/dL 2.3-4.7 Nov 25, 2024 06:43 PM [facility] COMPREHENSIVE METABOLIC PANEL PLASMA Specimen Type: PLASMA Comment: No hemolysis noted. Ordering Provider: LIDIA SWANSON Report Released Date/Time: Nov 25, 2024 04:22 PM Reporting Lab: [address] [address] Performing Lab: [address] [address] CREATININE 1.27 mg/dL 0.7-1.3 UREA NITROGEN 15.7 [...] 122/49 mm[Hg] 18 /min 93 % [address] [facility] Nov 27, 2024 08:28 PM 97.8 F 67 /min 132/75 mm[Hg] 18 /min 94 % [address] [facility] Nov 27, 2024 04:34 PM 97.4 F 68 /min 160/99 mm[Hg] 18 /min 94 % [address] [facility] Nov 27, 2024 12:24 PM 97.6 F 70 /min 165/93 mm[Hg] 18 /min 95 % [address] [facility] Nov 27, 2024 07:[address] [facility] Encounter Notes: All associated encounter notes This section contains the clinical notes associated to the Encounter. Date/Time Encounter Note(s) Provider Source Nov 27, 2024 11:51 AM CARDIOLOGY DIAGNOS TIC STUDY CONSULT: LOCAL TITLE: EKG CONSULT STL STANDARD TITLE: CARDIOLOGY DIAGNOSTIC STUDY CONSULT DATE OF NOTE: NOV 27, 2024@11:51:14 ENTRY DATE: NOV 27, 2024@11:51:14 AUTHOR: CLINICAL,DEVICE PRO EXP COSIGNER: URGENCY: STATUS: COMPLETED DOCUMENT IN [facility] SEE FULL REPORT IN [facility] SIGNATURE NOT REQUIRED SEE SIGNATURE IN [facility] (Creole EKG) AUTO-INSTRUMENT DIAGNOSIS Procedure: 50299 12 Lead ECG Release Status: Released Off-Line Verified Date Verified: Nov 27, 2024@11:51:09 68731.2 Ventricular Rate: 72 BPM 49808.5 QRS Duration: 130 ms 44410.6 Q-T Interval: 482 ms 18639 QTC Calculation(Bazett)527 ms 36478.13 Calculated R Vance: -78 degrees 90453.14 Calculated T Vance: 87 degrees Atrial flutter with variable A-V block Right bundle branch block Left anterior fascicular block Bifascicular block Abnormal ECG When compared with ECG of 27-NOV-2024 00:37, No significant change was found Administrative Closure: 11/27/2024 by: DEVICE PROXY SERVICE CLINICAL CLINICAL,DEVICE PROXY SERVICE CLINICAL,DEVICE PROXY SERVICE [facility]
--- OUTSIDE RECORDS SUMMARY | 2024-12-14 17:53 | XMS_ITS | Clinical Summary ---
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
--- OUTSIDE RECORDS SUMMARY | 2024-12-14 17:53 | XMS_ITS | Referral Summary ---
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
--- OUTSIDE RECORDS SUMMARY | 2024-12-14 17:53 | XMS_ITS ---
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 ([place]) Organization [facility] of [facility] ([place]) Address [address] [place] [address] Care Team Providers Care Division Head Name Role Phone JESSICA KAY Primary Care [...] ACTIV E [place] HIGH Jun 03, 2013 [id number] [phone] JOSEPHINE DiamondROSITA SPOUSE MEDICARE (WNR) MEDICARE (M) PART A Jul 04, 2016 PART A [id number] [phone] JOSEPHINE DiamondELI PATIENT MEDICARE (WNR) MEDICARE (M) PART B Jul 04, 2016 PART B [id number] RICHARDSO N,ELI PATIENT MEDICARE (WNR) MEDICARE (M) PART B Jul 04, 2016 PART B [id number] RICHARDSO N,ELI PATIENT MEDICARE (WNR) MEDICARE (M) PART A Jul 04, 2016 PART A [id number] RICHARDSO N,ELI PATIENT MEDICARE (WNR) MEDICARE (M) PART A Jul 04, [id number] [facility] RICHARDSO N,ELI PATIENT MEDICARE (WNR) MEDICARE (M) PART B Jul 04, 2016 PART B [id number] RICHARDSO N,ELI PATIENT MEDICARE (WNR) MEDICARE (M) PART A Jul 04, 2016 PART A [id number] RICHARDSO N,ELI PATIENT MEDICARE (WNR) MEDICARE (M) PART B Jul 04, 2016 PART B [id number] RICHARDSO N,ELI PATIENT PRIME THERAPEUTI CS RX PRESCRIPT ION RX PLAN Jun 03, 2013 [id number] [phone] EMMASO N,ELI PATIENT Selected Encounter This section includes the information on record at [place] for the Encounter. Date/Time Encounter Type Encounter Description Reason Provider Source October 20, 2024 03:00 PM OFF/OP CONSLTJ NEW/EST HI 55 CIED DEVICES ICD-10-CM I48.19 Other persistent atrial fibrillation NASIR CLOUD IHE Encounter Template Text not used by [place] Assessments - Encounter Diagnoses This section includes the primary and secondary diagnoses documented for the Encounter. Date/Time Primary/Secondary Diagnosis Diagnosis Name Provider Source October 20, 2024 04:32 PM PRIMARY Other persistent atrial fibrillation NASIR CLOUD [facility] Plan of Treatment: Future Appointments (+ [...] Appointment Type Appointme nt Facility Name Nov 06, 2024 11:00 AM AMBULATORY - MEDICINE [facility] Jan 25, 2025 11:05 AM AMBULATORY - MEDICINE [facility] Jan 27, 2025 06:00 AM AMBULATORY - NONE [facility] Jan 27, 2025 06:15 AM AMBULATORY - MEDICINE [facility] Jan 28, 2025 02:00 PM AMBULATORY - MEDICINE [facility] 2025 01:00 PM AMBULATORY - MEDICINE [facility] Active, Pending, and Scheduled Orders This section includes a listing of several types of active, pending, and scheduled orders, including clinic medications orders, diagnostic test orders, procedure orders and consult orders; where the start date of the order is 45 days before the date of the Encounter or 45 days after the date of theEncounter. The data comes from all [place] treatment facilities. Test Date/Time Test Type Test Details Facility Name Sep 14, 2024 11:02 AM Consult Order CANCER TESSA VIVORSHIP CONSULT OUTPT [facility] October 20, 2024 04:34 PM Procedure Order CP ELECTRO PHYSIOLOGY [facility] CP [facility], [facility] 02:40 PM Procedure Order CP SWATI ECH OCARDIOGRAM JOSELYN SWATI FUTURE CARE ECHOCARDIOGRAM STL Proc [facility] Nov 27, 2024 11:41 AM Procedure Order CP EKG STL CP EKG - STL Proc Bedside [facility] Social History: Smoking Status (Most current) and Tobacco Use (All prior to encounter date) This section includes the most current, and the historical, smoking and tobacco- related health factors from the [place] facility where the Encounter took place. Current Smoking Status This section includes the most current smoking, or tobacco-related health factor, from the [place] facility where the Encounter took place. Date/Time Current Smoking Status Nuria garcia Apr 08, 2024 02:30 PM VA-TOBACCO USE CARYN RY DAY CIGARETTES [facility] Tobacco Use History This section includes a history of the smoking, or tobacco-related health factors, that were collected on or before the date of the Encounter. The data comes from the [place] facility where the Encounter took place. Date/Time Smoking Status/Tobacco Use Comment F acility Apr 08, 2024 02:30 PM VA-TOBACCO SCREEN FOLLOW-UP [facility] Apr 08, 2024 02:30 PM VA-TOBACCO USE ADVICE [facility] Apr 08, 2024 02:30 PM VA-TOBACCO USE PHYSIOTHERAPY PRACTICE MANAGER NO [facility] Apr 08, 2024 02:30 PM VA-TOBACCO USE CARYN RY DAY CIGARETTES [facility] Apr 08, 2024 02:30 PM VA-TOBACCO USE MED NO [facility] Feb 15, 2023 11:00 AM VA-TOBACCO USE 30 YEARS OR MORE [facility] Feb 15, 2023 11:00 AM VA-TOBACCO USE ADVICE [facility] Feb 15, 2023 11:00 AM VA-TOBACCO USE PHYSIOTHERAPY PRACTICE MANAGER NO [facility] Feb 15, 2023 11:00 AM VA-TOBACCO USE MED NO [facility] Feb 15, 2023 11:00 AM VA-TOBACCO USE WI 30 MIN OF WAKEUP [facility] Feb 15, 2023 11:00 AM VA-TOBACCO USER EVERY DAY [facility] Feb 19, 2022 11:30 AM VA-TOBACCO DOESNT USE WI 30 MIN WAKEUP [facility] Feb 19, 2022 11:30 AM VA-TOBACCO USE 30 YEARS OR MORE [facility] Feb 19, 2022 11:30 AM VA-TOBACCO USE ADVICE [facility] Feb 19, 2022 11:30 AM VA-TOBACCO USE PHYSIOTHERAPY PRACTICE MANAGER NO [facility] Feb 19, 2022 11:30 AM VA-TOBACCO USE MED NO [facility] Feb 19, 2022 11:30 AM VA-TOBACCO USER EVERY DAY [facility] October 11, 2020 10:30 AM VA-TOBACCO FORMER USER [facility] October 11, 2020 10:30 AM VA-TOBACCO QUIT < [address] [facility] Encounter Notes: All associated encounter notes This section contains the clinical notes associated to the Encounter. Date/Time Encounter Note(s) Provider Source October 20, 2024 04:24 PM ELECTROPHYSIOLOGY CONSULT: LOCAL TITLE: CLINICAL CARDIAC ELECTROPHYSIOLOGY CONSULT ST STANDARD TITLE: ELECTROPHYSIOLOGY CONSULT DATE OF NOTE: OCTOBER 20, 2024@16:24 ENTRY DATE: OCTOBER 20, 2024@16:24:36 AUTHOR: NASIR CLOUD COSIGNER: URGENCY: STATUS: COMPLETED CLINICAL CARDIAC ELECTROPHYSIOLOGY CONSULT STL Has ADDENDA CARDIAC ELECTROPHYSIOLOGY OUTPATIENT CONSULTATION HISTORY: The patient is a 69-year-old man with a history of right lung non-small cell cancer status post resection in 2020, perioperative atrial fibrillation from this status post 1 month of amiodarone, CVA by brain MRI in 2015, COPD, history of tobacco use-over 50 pack years quit 3 months ago, retinal emboli. He is accompanied by his . I also implanted a loop recorder in 04/2024 for this retinal emboli. He first developed atrial fibrillation after his right lung resection in 2020. He was put on amiodarone for 1 month and then taken off without recurrence until recently. He apparently was also taken off anticoagulation. He states he first developed severe lightheaded dizzy fatigue and feeling sick in July 2024. He went to an outside hospital where he was diagnosed with influenza. He states that atrial fibrillation was not mentioned at that time. However we received remote loop transmissions of every 2024 indicating new onset atrial fibrillation and given his history of CVA and retinal emboli anticoagulation was recommended. This was started by his PCP in 07/2024. His most recent loop recorder interrogation/transmission has shown persistent atrial fibrillation from this time until present. His average heart rate appears to be rate controlled. He states that since this time he has felt lightheaded dizzy and severe fatigue and he has no energy. His corroborates this. He is currently anticoagulated with Eliquis. ROS- Unless otherwise stated, all ROS has been reviewed and is negative for presenting complaint. CURRENT MEDICATIONS: Active Outpatient Medications (excluding Supplies): Issue Date Status Last Fill Active Outpatient Medications Refills Expiration = 1) ALBUTEROL 90MCG (CFC-F) 200D ORAL INHL Qty: ACTIVE Issue: 04/08/24 3 for 90 days Sig: INHALE 2 PUFFS ORAL Refills: 1 Last : 07/07/24 INHALATION FOUR TIMES A DAY SHAKE WELL. Expr : 04/09/25 RINSE MOUTHPIECE FREQUENTLY TO PREVENT CLOGGING. Indication: FOR COPD 2) APIXABAN 5MG TAB Qty: 60 for 30 days Sig: ACTIVE Issue: 08/10/24 TAKE ONE TABLET BY MOUTH TWICE A DAY Refills: 11 Last : 09/07/24 Indication: FOR ANTICOAGULATION Expr : 08/11/25 3) METHOCARBAMOL 500MG TAB Qty: 90 for 30 days ACTIVE Issue: 04/08/24 Sig: TAKE 1 TABLET BY MOUTH THREE TIMES A Refills: 0 Last : 07/24/24 DAY NEEDED Expr : 04/09/25 Indication: FOR MUSCLE SPASM Start Date Active Non-VA Medications Status Stop Date = 1) Non-VA ASPIRIN 81MG EC TAB SiMG BY ACTIVE MOUTH ONCE A DAY 2) Non-VA LISINOPRIL 40MG TAB SiMG BY ACTIVE MOUTH ONCE A DAY 3) Non-VA METOPROLOL SUCCINATE 50MG SA TAB Sig: ACTIVE 25MG BY MOUTH ONCE A DAY 4) Non-VA ROSUVASTATIN CA 40MG TAB SiMG BY ACTIVE MOUTH EVERY EVENING 5) Non-VA [id number]/[id number] CG 30D ACTIVE INH Si PUFF ORAL INHALATION ONCE A DAY 8 Total Medications Medication List Reconciliation: Current medication list was reviewed with the patient and/or caregiver and compared to current list of medications in [facility]. The medicaton list was updated to reflect any changes. The importance of medication managment was explained and patient and/or caregiver was receptive and verbalized understanding. Allergies:CHANTIX EXAM: Vital Signs: Pulse: 81 (09/17/2024 13:59) BP: 118/75 (09/17/2024 13:59) RESP: 20 (09/17/2024 13:59) G- Patient A&Ox3, NAD DATA: 01/2024 echo: EF 55-60% 10/2024 EKG: Atrial fibrillation, rate 74 Labs reviewed ASSESSMENT/PLAN: The patient is a 69-year-old man with history of right lung non-small cell lung cancer s/p resection in 2020, brief episode of perioperative atrial fibrillation at that time status post 1 month of amiodarone and since discontinued as was anticoagulation, CVA, COPD, history of tobacco use, history of retinal emboli, status post ILR implant who presents with persistent atrial fibrillation since 07/30/2024 corresponding to his symptoms. The pathophysiology of atrial fibrillation and rationale for treatment were discussed with the patient in detail. Manual drawings were provided for the patient. I told that atrial fibrillation is a chronic progressive disease with no known cure however there are effective treatments and we hope to decrease the amount of atrial fibrillation we had. Given his severe symptoms, I suggested aggressive treatment. I suggested antiarrhythmic drug or antiarrhythmic plus or minus ablation. For antiarrhythmic he would be eligible for inpatient admission for dofetilide. He will be starting 500 mics twice daily with an EKG done 2 hours after each dose. If he does not cardiovert by his last day then a cardioversion would be done. This could be done with catheter ablation. The risk and benefits of catheter ablation were explained to the patient in detail and he would like to proceed. Will plan on pulm vein isolation. In addition he is eligible for the LDCAF clinical study protocol. An informational handout was given to the patient. He will need a CT and SWATI prior to this. I will have my research coordinator follow- up with the patient. After discussing all options he would like to proceed with dofetilide and the ablation. We will call to schedule dofetilide admission and ablation. He was instructed not to miss a dose of his Eliquis. In addition I will order a 2D echocardiogram to check his ejection fraction while he is in atrial fibrillation to ensure he does not have an AF related cardiomyopathy. Thank you for letting me participate in the case of this very pleasant patient. Please contact me if you have any questions. Nasir Cloud M.D. Clinical Cardiac Electrophysiology This note was transcribed using voice detection software. Please excuse any errors. Mary Anne: Please arrange for dofetilide loading Health Maintenance All patients are counseled on the risks [...] completed, the results will be found in [facility]. Where relevant all echocardiograms (including transthoracic and transesophogeal echocardiograms), laboratory results, imaging results and procedure results that have been ordered have results communicated to the patient by myself, surrogate and/or the PCP. When completed, the results will be in the appropriate area in [facility] or [facility]. # HEALTH PROMOTION/HEALTH MAINTENANCE & EDUCATION DISEASE: Discussed treatment options & counseled on exacerbating factors. # DIAGNOSTIC TESTING AND LABORATORY DATA: Pertinent labs and diagnostic tests (both normal and abnormal) are included above and were reviewed and discussed with the patient within 7-days of the test and during this visit. - DISEASE: Coordinated care; discussed treatment options, & counseled on ` exacerbating factors. - Encouraged participation in regular [...] are considered for beta blockers and aspirin unless contraindicated due to intolerance/allergy, hypotension, bradycardia, or [...] as directed by the PCP (primary provider). Thank you for allowing us to participate in this patient's care. Total time spent = 60 minutes /loreta/ NASIR CLOUD MD CLINICAL CARDIAC DATA LEAD Signed: 10/20/2024 16:34 Receipt Acknowledged By: 10/20/2024 17:12 /loreta/ Verna Olvera,RN,BSN Registered Nurse 10/20/2024 ADDENDUM STATUS: COMPLETED LMOVM- would call him back /loreta/ Verna Olvera,RN,BSN Registered Nurse Signed: 10/20/2024 18:32 NASIR CLOUD [facility]
--- OUTSIDE RECORDS SUMMARY | 2024-12-14 17:53 | XMS_ITS | Clinical Summary ---
Author Organization [facility] Care Team Providers Care Delivery And Mail Sorter Name Role Phone Unavailable Primary Care Provider Unavailabl e Social History Tobacco Use Types Packs/Day Years Used Date Smoking Tobacco: Never Assessed Sex and Gender Information Value Date Recorded Sex Assigned at Not on file Legal Sex Male 4:08 PM [employer] Gender Identity Not on file Sexual Orientation Not on file Plan of Treatment Health Maintenance Due Date Last Done Comments Hepatitis C Virus (HCV) Screening 1955 TdaP Immunization 1955 Cologuard 2002 Colonoscopy 2002 Colorectal Cancer Screening 2002 Immunochemical Fecal Occult Blood 2002 Zoster Immunization (1 of 2) 2007 Pneumococcal Immunization (50+ years) (3 of 3 - PCV20 or PCV21) 03/01/2020 03/01/2015, 03/09/2014, 03/15/2013 SARS-COV-2 Immunization ( - season) 2024 Influenza Immunization (#1) 02/01/202502/03, 02/09/2019, 02/04/2018, Additional history exists Respiratory Syncytial Virus (RSV) Immunization (Adult) (1 - 1-dose 75+ series) 2032 Pneumococcal Immunization Combined Discontinued 03/01/2015, 03/09/2014, 03/15/2013 Hepatitis B Immunization Aged Out No longer eligible based on patient's age to complete this topic Human Papillomavirus (HPV) Immunization Aged Out No longer eligible based on patient's age to complete this topic Meningococcal Immunization (ACWY) Aged Out No longer eligible based on patient's age to complete this topic Rotavirus Immunization Aged Out No lo nger eligible based on patient's age to complete this topic
--- OUTSIDE RECORDS SUMMARY | 2024-12-14 17:53 | XMS_ITS | Encounter Summary ---
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 [place] [facility] Address [address] [place] [address] Care Team Providers Care Recruiting Associate Name Role Phone JESSICA KAY Primary Care [...] ACTIV E [place] HIGH Jun 03, 2013 [phone] JOSEPHINE DiamondROSITA SPOUSE MEDICARE (WNR) MEDICARE (M) PART A Jul 04, 2016 PART A [id number] JOSEPHINE DiamondELI PATIENT MEDICARE (WNR) MEDICARE (M) PART B Jul 04, 2016 PART B [id number] RICHARDSO N,ELI PATIENT MEDICARE (WNR) MEDICARE (M) PART A Jul 04, 2016 PART A [id number] [phone] RICHARDSO N,ELI PATIENT MEDICARE (WNR) MEDICARE (M) PART B Jul 04, 2016 PART B [id number] RICHARDSO N,ELI PATIENT MEDICARE (WNR) MEDICARE (M) PART A Jul 04, 2016 PART A [id number] [facility] RICHARDSO N,ELI PATIENT MEDICARE (WNR) MEDICARE (M) PART B Jul 04, 2016 PART B [id number] RICHARDSO N,ELI PATIENT MEDICARE (WNR) MEDICARE (M) PART A Jul 04, 2016 PART A [id number] EMMASO N,ELI PATIENT MEDICARE (WNR) MEDICARE (M) PART B Jul 04, 2016 PART B [id number] [facility] [phone] EMMASO N,ELI PATIENT PRIME THERAPEUTI CS RX PRESCRIPT ION RX PLAN Jun 03, 2013 [id number] [phone] EMMASO N,ELI PATIENT Selected Encounter This section includes the information on record at [place] for the Encounter. Date/Time Encounter Type Encounter Description Reason Pro vider Source Nov 25, 2024 02:42 PM Orthodox of Cardiac Rhythm, Single HOSPITALIZATION ICD-10-CM G47.00 Insomnia, unspecified ONED,MED IHE Encounter Template Text not used by [place] Assessments - Encounter Diagnoses This section includes the primary and secondary diagnoses documented for the Encounter. Date/Time Primary/Secondary Diagnosis Diagnosis Name Provider Source Nov 28, 2024 03:09 PM Diagnosis for Length of Stay Other persistent atrial fibrillation [facility] Nov 28, 2024 03:09 PM SECONDARY Acquired absence of lung [part of] [facility] Nov 28, 2024 03:09 PM SECONDARY Atrioventricular block, first degree [facility] Nov 28, 2024 03:09 PM SECONDARY Chronic kidney disease, stage 2 (mild) [facility] Nov 28, 2024 03:09 PM SECONDARY Chronic obstructive pulmonary disease, unspecified [facility] Nov 28, 2024 03:09 PM SECONDARY Hyperlipidemia, unspecified [facility] Nov 28, 2024 03:09 PM SECONDARY Hypertensive chronic kidney disease w stg 1-4/unsp chr kdny [facility] Nov 28, 2024 03:09 PM SECONDARY Hypokalemia [facility] Nov 28, 2024 03:09 PM SECONDARY Hypomagnesemia [facility] Nov 28, 2024 03:09 PM SECONDARY Insomnia, unspecified [facility] Nov 28, 2024 03:09 PM SECONDARY 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 (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 [facility] Nov 28, 2024 03:09 PM SECONDARY 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 (current) use of systemic steroids [facility] Nov 28, 2024 03:09 PM SECONDARY Other disorders of phosphorus metabolism [facility] Nov 28, 2024 03:09 PM SECONDARY Other muscle spasm [facility] Nov 28, 2024 03:09 PM SECONDARY Personal history of malignant neoplasm of bronchus and lung [facility] Nov 28, 2024 03:09 PM SECONDARY Prsnl hx of TIA (TIA), and cereb infrc w/o resid deficits [facility] Nov 28, 2024 03:09 PM SECONDARY Retinal artery branch occlusion, unspecified eye [facility] Nov 28, 2024 03:09 PM SECONDARY Tobacco use [facility] Nov 28, 2024 03:09 PM SECONDARY Unspecified right bundle-branch block [facility] Plan of Treatment: Future Appointments (+ 6 months) and Future Tests (+/- 45 days) The Plan of Treatment section includes future care activities for the patient from all [facility]. This section includes future appointments and future orders which are active, pending or scheduled. Future Appointments This section includes appointments that were scheduled to occur 6 months from the date of the Encounter, up to a maximum of 20 appointments. The data comes from all [facility]. Appointment Date/Time Appointment Type Appointme nt Facility Name Jan 25, 2025 11:05 AM AMBULATORY - MEDICINE [facility] Jan 27, 2025 06:00 AM AMBULATORY - NONE [facility] Jan 27, 2025 06:15 AM AMBULATORY - MEDICINE [facility] Jan 28, 2025 02:00 PM AMBULATORY - MEDICINE [facility] 2025 01:00 PM AMBULATORY - MEDICINE [facility] Active, Pending, and Scheduled Orders This section includes a listing of several types of active, pending, and scheduled orders, including clinic medications orders, diagnostic test orders, procedure orders and consult orders; where the start date of the order is 45 days before the date of the Encounter or 45 days after the date of theEncounter. The data comes from all [place] treatment facilities. Test Date/Time Test Type Test Details Facility Name October 20, 2024 04:34 PM Procedure Order CP ELECTRO PHYSIOLOGY STL CP ELECTROPHYSIOLOGY STL Proc [facility] October 23, 2024 02:40 PM Procedure Order CP SWATI ECH OCARDIOGRAM [facility] SWATI FUTURE CARE ECHOCARDIOGRAM STL [facility] Nov 27, 2024 11:41 AM Procedure Order CP EKG STL CP EKG - STL Proc Bedside [facility] Lab Results: +/- 30 days of the encounter This section includes the Chemistry and Hematology Lab Results on record with [place] for the patient. Radiology Reports and Pathology Reports are provided separately, in subsequent sections. Lab Results This section contains the Chemistry/Hematology Results that were resulted 30 days before or 30 daysafter the date of the Encounter. Date/Time Source Result Type Result - Unit Interpretation Reference Range Specimen Type Comment Nov 28, 2024 08:16 AM [facility] MAGNESIUM PLASMA Specimen Type: PLASMA Comment: No hemolysis noted. Ordering Provider: INOCENCIA ROSE Report Released Date/Time: Nov 27, 2024 07:13 PM Reporting Lab: [facility] [address] [facility] [address] Performing Lab: [facility] [address] [address] MAGNESIUM 2.1 mg/dL 1.6-2.6 Nov 28, 2024 08:16 AM [facility] RENAL PANEL PLASMA Specimen Type: PLASM A Comment: No hemolysis noted. Ordering Provider: INOCENCIA ROSE Report Released Date/Time: Nov 27, 2024 07:13 PM Reporting Lab: [address] [address] Performing Lab: [address] [address] CREATININE 1.15 mg/dL 0.7-1.3 UREA NITROGEN 13.3 mg/dL 9.0-25.0 GLUCOSE 104 mg/dL H 72-99 SODIUM 139 meq/L 136-145 POTASSIUM 4.1 meq/L 3.5-5 CHLORIDE 105 meq/L 98-107 CARBON DIOXIDE 28 meq/L 22-31 CALCIUM 9.0 mg/dL 8.4-10.4 PHOSPHOROUS 2.8 mg/dL 2.3-4.7 ALBUMIN 3.6 g/dL 3.4-5 EGFR (CKD-EPI 2020) 69.8 >60 Nov 27, 2024 06:35 PM [facility] CBC BLOOD Specimen Type: BLOOD No comment entered. Ordering Provider: LIDIA SWANSON Report Released Date/Time: Nov 25, 2024 04:28 PM Reporting Lab: [address] [address] Performing Lab: [address] [address] WBC 9.5 10*3/uL 3.6-11.2 RBC 4.19 10*6/uL [...] 0.00-0. 20 Nov 27, 2024 02:46 PM [facility] RENAL PANEL PLASMA Specimen Type: PLASM A Comment: No hemolysis noted. Ordering Provider: LIDIA SWANSON Report Released Date/Time: Nov 25, 2024 03:08 PM Reporting Lab: [facility] [address] [address] Performing Lab: [facility] [address] [place] [address] CREATININE 1.20 mg/dL 0.7-1.3 UREA NITROGEN 15.1 mg/dL 9.0-25.0 GLUCOSE 137 mg/dL H 72-99 SODIUM 140 meq/L 136-145 POTASSIUM 4.1 meq/L 3.5-5 CHLORIDE 106 meq/L 98-107 CARBON DIOXIDE 29 meq/L 22-31 CALCIUM 8.9 mg/dL 8.4-10.4 PHOSPHOROUS 2.3 mg/dL 2.3-4.7 ALBUMIN 3.7 g/dL 3.4-5 EGFR (CKD-EPI 2020) 66.3 >60 Nov 27, 2024 02:00 PM [facility] MAGNESIUM PLASMA Specimen Type: PLASM A Comment: No hemolysis noted. Ordering Provider: LIDIA SWANSON Report Released Date/Time: Nov 26, 2024 09:37 AM Reporting Lab: [facility] [address] [facility] [address] Performing Lab: [facility] [address] [facility] [address] MAGNESIUM 2.4 mg/dL 1.6-2.6 Nov 27, 2024 07:29 AM [facility] B12 SERUM Specimen Type: SERUM No comment entered. Ordering Provider: LIDIA SWANSON Report Released Date/Time: Nov 26, 2024 08:37 PM Reporting Lab: [facility] [address] [address] Performing Lab: [facility] [address] [address] B12 418 pg/mL 213-816 Nov 27, 2024 07:29 AM [facility] FOLATE (L-MA) SERUM Specimen Type: SERUM No comment entered. Ordering Provider: LIDIA SWANSON Report Released Date/Time: Nov 26, 2024 08:37 PM Reporting Lab: [address] [address] Performing Lab: [place] [address] [address] FOLATE (STL-MA) 6.7 ng/mL L 7-20 Nov 27, 2024 06:20 AM [facility] MAGNESIUM PLASMA Specimen Type: PLASM A Comment: No hemolysis noted. Ordering Provider: MARICRUZ HARDY Report Released Date/Time: Nov 27, 2024 05:33 AM Reporting Lab: [place] [address] [address] Performing Lab: [place] [address] [address] MAGNESIUM 2.8 mg/dL H 1.6-2.6 Nov 27, 2024 06:20 AM [facility] PHOSPHOROUS PLASMA Specimen Type: PLASM A Comment: No hemolysis noted. Ordering Provider: MARICRUZ HARDY Report Released Date/Time: Nov 27, 2024 05:38 AM Reporting Lab: [place] [address] [address] Performing Lab: [address] [address] PHOSPHOROUS 4.1 mg/dL 2.3-4.7 Nov 27, 2024 06:20 AM [facility] BASIC METABOLIC PANEL PLASMA Specimen Type: PL ASMA Comment: No hemolysis noted. Ordering Provider: MARICRUZ HARDY Report Released Date/Time: Nov 27, 2024 05:33 AM Reporting Lab: [address] [address] Performing Lab: [address] [address] CREATININE 1.18 mg/dL 0.7-1.3 UREA NITROGEN 13.7 mg/dL 9.0-25.0 GLUCOSE 106 mg/dL H 72-99 SODIUM 141 meq/L 136-145 POTASSIUM 4.4 meq/L 3.5-5 CHLORIDE 104 meq/L 98-107 CARBON DIOXIDE 26 meq/L 22-31 CALCIUM 8.6 mg/dL 8.4-10.4 EGFR (CKD-EPI 2020) 67.6 >60 Nov 26, 2024 07:45 PM [facility] CBC BLOOD Specimen Type: BLOOD No comment entered. Ordering Provider: LIDIA SWANSON Report Released Date/Time: Nov 25, 2024 04:28 PM Reporting Lab: [address] [address] Performing Lab: [address] [address] WBC 9.3 10*3/uL 3.6-11.2 RBC 4.37 10*6/uL [...] 0.00-0. 20 Nov 26, 2024 02:14 PM [facility] RENAL PANEL PLASMA Specimen Type: PLASM A Comment: No hemolysis noted. Ordering Provider: LIDIA SWANSON Report Released Date/Time: Nov 25, 2024 03:08 PM Reporting Lab: [address] [address] Performing Lab: [address] [address] CREATININE 1.21 mg/dL 0.7-1.3 UREA NITROGEN 13.4 mg/dL 9.0-25.0 GLUCOSE 118 mg/dL H 72-99 SODIUM 139 meq/L 136-145 POTASSIUM 4.4 meq/L 3.5-5 CHLORIDE 106 meq/L 98-107 CARBON DIOXIDE 30 meq/L 22-31 CALCIUM 9.0 mg/dL 8.4-10.4 PHOSPHOROUS 1.8 mg/dL L 2.3-4.7 ALBUMIN 3.6 g/dL 3.4-5 EGFR (CKD-EPI 2020) 65.6 >60 Nov 26, 2024 02:00 PM [facility] MAGNESIUM PLASMA Specimen Type: PLASM A Comment: No hemolysis noted. Ordering Provider: LIDIA SWANSON Report Released Date/Time: Nov 26, 2024 09:37 AM Reporting Lab: [address] [address] Performing Lab: [address] [address] MAGNESIUM 1.8 mg/dL 1.6-2.6 Nov 25, 2024 09:00 PM [facility] MRSA SURVL NARES DNA NARES Specimen Type: [...] Nov 25, 2024 08:59 PM Reporting Lab: [facility] [address] [address] Performing Lab: [place] [address] [address] MRSA SURVL NARES DNA Negative Negative Nov 25, 2024 07:05 PM [facility] CBC BLOOD Specimen Type: BLOOD No comment entered. Ordering Provider: LIDIA SWANSON Report Released Date/Time: Nov 25, 2024 04:28 PM Reporting Lab: [place] [address] [address] Performing Lab: [address] [address] WBC 8.8 10*3/uL 3.6-11.2 RBC 4.00 10*6/uL [...] 0.00-0. 20 Nov 25, 2024 06:43 PM [facility] MAGNESIUM PLASMA Specimen Type: PLASM A Comment: No hemolysis noted. Ordering Provider: LIDIA SWANSON Report Released Date/Time: Nov 25, 2024 04:22 PM Reporting Lab: [place] [address] [address] Performing Lab: [facility] [address] [facility] [address] MAGNESIUM 1.9 mg/dL 1.6-2.6 Nov 25, 2024 06:43 PM [facility] PHOSPHOROUS PLASMA Specimen Type: PLASM A Comment: No hemolysis noted. Ordering Provider: LIDIA SWANSON Report Released Date/Time: Nov 25, 2024 04:28 PM Reporting Lab: [facility] [address] [place] [phone] Performing Lab: [address] [address] PHOSPHOROUS 2.5 mg/dL 2.3-4.7 Nov 25, 2024 06:43 PM [facility] COMPREHENSIVE METABOLIC PANEL PLASMA Specimen Type: PLASMA Comment: No hemolysis noted. Ordering Provider: LIDIA SWANSON Report Released Date/Time: Nov 25, 2024 04:22 PM Reporting Lab: [address] [address] Performing Lab: [address] [address] CREATININE 1.27 mg/dL 0.7-1.3 UREA NITROGEN 15.7 [...] Height Weight Body Mass Index Source Nov 25, 2024 11:23 PM 0 [facility] Nov 25, 2024 08:57 PM 97.5 F 57 /min 143/81 mm[Hg] 20 /min 96 % 0 [facility] Nov 25, 2024 07:29 PM 97.8 F 53 /min 141/72 mm[Hg] 20 /min 96 % 0 [facility] Nov 25, 2024 07:04 PM 4 [facility] Nov 25, 2024 06:00 PM 0 [facility] Encounter Notes: All associated encounter notes This section contains the clinical notes associated to the Encounter. Date/Time Encounter Note(s) Provider Source Nov 28, 2024 04:58 PM INTERNAL MEDICINE INPATIENT NOTE: LOCAL TITLE: MEDICINE GENERAL INPATIENT NOTE STANDARD TITLE: INTERNAL MEDICINE INPATIENT NOTE DATE OF NOTE: NOV 28, 2024@16:58 ENTRY DATE: NOV 28, 2024@16:58:52 AUTHOR: LIDIA SWANSON COSIGNER: ZAKIYA FISHER URGENCY: STATUS: COMPLETED MEDICINE GENERAL INPATIENT NOTE Has ADDENDA MEDICINE INPATIENT GENERAL NOTE STL 69 year old MALE admitted on for Last Admission: 11/25/24 2:42:53 pm Admit Dx: ATRIAL FIBRILATION. Interval: MAMI. Patient had AM tikosyn held with QTc 597, Denies any symptoms, new EKG ordered and plan to start tikosyn 250 and discharge after EKG in 2 hours. Patient happy to go home in time for a wedding. Active Inpatient Medications: albuterol, apixaban, folic acid, lisinopril, melatonin, methocarbamol, metoprolol, rosuvastatin. Vital Signs: Pulse: 62 (11/28/2024 13:37) BP:145/80 (11/28/2024 13:37) RESP:16 (11/28/2024 13:37) Pain:0 (11/28/2024 13:37) Tmax: Pulse Oximetry: Weight: 259.5 lb [117.71 kg] (11/25/2024 14:51) Intake/Output: PHYSICAL EXAM: General: NAD, pleasant HEENT: Normal ROM Lungs: CTAB, normal effort CVS: well perfused RRR. No m/r/g Abdomen: soft, NT, ND Neuro: A&Ox3 at baseline Recent Labs: BASIC METABOLIC PANEL: SODIUM 139 mEq/L 11/28/2024 06:00 POTASSIUM 4.1 mEq/L 11/28/2024 06:00 CHLORIDE 105 mEq/L 11/28/2024 06:00 UREA NITROGEN 13.3 mg/dL 11/28/2024 06:00 CREATININE 1.15 mg/dL 11/28/2024 06:00 CALCIUM 9.0 mg/dL 11/28/2024 06:00 CARBON DIOXIDE 28 mEq/L 11/28/2024 06:00 GLUCOSE 104 H mg/dL 11/28/2024 06:00 EGFR (CKD-EPI 2020) 69.8 11/28/2024 06:00 WBC: 9.5 10*3/uL (11/27/24 18:35) HCT: 42.3 % (11/27/24 18:35) HGB: HGB 13.7 g/dL 11/27/2024 18:35 Plt: PLT 222 10*3/uL 11/27/2024 18:35 CK-MB: ____ TROPONIN I HISTORY: No data available Other Labs and Data: Assessment/Plan: Mr. Ruelas is a 69 year old male with afib here for a tikosyn load. #Tikosyn load #Persistent atrial fibrillation #Hypokalemia, resolved #HypoMg, resolved had cardioversion on 11/27/24. Plan to discharge today with 250 BID tikosyn for 90 days with 3 refills - Cardiology following -Apixaban 5 mg PO BID -continue metoprolol succ 25 mg PO - Tikosyn 250 mg BID with EKG afterward - Hold Tikosyn if QTc > 550 increased >15% from baseline (457) - Replete lytes -Macrocytic anemia Secondary to B9 deficiency -Discharge with folic acid #History of CVA -Not on asa or plavix #Muscle spasm -Methocarbamol 500 mg PO TID PRN #HTN #HLD -Continue lisinopril 20 mg PO -Continue crestor 20 mg PO #COPD #lung cancer s/p resection -Albuterol QID Diet: Regular DVT ppx: none Dispo: home GI ppx: none Pain: none Code: full code Stewart: No Lines No /es/ LIDIA SWANSON MEDICINE RESIDENT Signed: 11/28/2024 17:07 /es/ ZAKIYA FISHER MD Attending Physician - Internal Medicine Cosigned: 11/29/2024 13:43 11/29/2024 ADDENDUM STATUS: COMPLETED I interviewed and examined the patient on 11/28/2024 with the house staff. I reviewed the laboratory and radiologic findings. I reviewed the note created by Dr. Swanson and agree in general with the data, synthesis, and plan as outlined in his note and discussed on rounds with any additional findings noted below. /es/ ZAKIYA FISHER MD Attending Physician - Internal Medicine Signed: 11/29/2024 13:44 LIDIA SWANSON [facility] Nov 28, 2024 03:09 PM DISCHARGE SUMMARY: LOCAL TITLE: Discharge Summary STANDARD TITLE: DISCHARGE SUMMARY DICT DATE: NOV 28, 2024@17:30 ENTRY DATE: NOV 28, 2024@17:31:05 DICTATED BY: LIDIA SWANSON ATTENDING: ZAKIYA FISHER URGENCY: routine STATUS: COMPLETED Discharge Summary Has ADDENDA PRINCIPAL DIAGNOSIS: Scheduled tikosyn load SECONDARY DIAGNOSES: Significant Medical Problems PRESENT on Admission: 1) History of colonic polyp 2) Chronic obstructive lung disease 3) Asthma 4) Hepatitis C 5) Hyperlipidaemia 6) Vitamin D deficiency 7) Periventricular hemorrhagic venous infarct 8) Peyronie's disease 9) Prediabetes 10) Tobacco use 11) Osteoarthritis of joint of left shoulder region 12) Nicotine dependence 13) Pain of left shoulder joint 14) Lung cancer 15) Hypertensive heart AND chronic kidney disease stage 3 16) Chronic kidney disease stage 3A 17) Cerebrovascular accident 18) Paroxysmal atrial fibrillation Significant Medical Problems NOT PRESENT on Admission: QTc prolongation secondary to tikosyn initiation, hypophosphatemia, resolved OPERATIVE/INVASIVE PROCEDURES: Not Applicable ATTENDING PHYSICIAN: Zakiya fisher M.D. BRIEF HISTORY AND ESSENTIAL PHYSICAL FINDINGS: 69 year old male with scheduled admit for tikosyn loading. Patient with history of chronic atrial fibrillation. Patient states to have taken his eliquis this morning but when asked if he has taken it for the last 30 days, he states he tried to but is pretty sure but that he takes his meds very well, as sure as he can be that he did not miss a dose and cannot think of an instance of a dose missed. ROS and physical exam normal on admission. HOSPITAL COURSE: Patient on telemetry first night had asymptomatic pauses of 2.4s and bradycardic, patient denies any symptoms of this. Discussed plan to not do SWATI on patient and start the tikosyn. Day 2 cardioversion, no complaints upon return and tikosyn continued. Final day, Patient had AM tikosyn held with QTc 597, Denies any symptoms, new EKG ordered and plan to start tikosyn 250 and discharge after EKG in 2 hours. Given tikosyn 250 for 90 days, 3 refills as requested by cardiology CONDITION ON DISCHARGE: stable FOLLOW-UP: 01/27/2025 06:00 [facility]PRE-OP EVAL NURSING AM 01/27/2025 06:15 [facility]PACEMAKER EP LAB 01/28/2025 14:00 [facility]CARDIOLOGY F4 2025 13:00 [facility]ARDI[facility] F4 08/23/2025 11:00 [facility]ONCOLOGY STOREKEEPER ENGINEERING 1 NON-VA FOLLOW-UP CARE: Not Applicable DISCHARGE MEDICATIONS: Active Outpatient Medications (including Supplies): Active Outpatient Medications Status = 1) ALBUTEROL 90MCG (CFC-F) 200D ORAL INHL INHALE 2 PUFFS ORAL ACTIVE INHALATION FOUR TIMES A DAY SHAKE WELL. RINSE MOUTHPIECE FREQUENTLY TO PREVENT CLOGGING. Indication: FOR COPD 2) APIXABAN 5MG TAB TAKE ONE TABLET BY MOUTH TWICE A DAY ACTIVE Indication: FOR ANTICOAGULATION 3) DOFETILIDE 250MCG CAP TAKE ONE CAPSULE BY MOUTH EVERY 12 ACTIVE (S) HOURS - AVOID GRAPEFRUIT/GRAPEFRUIT JUICE WHILE ON THIS MEDICATION. Indication: FOR ATRIAL FIBRILLATION 4) FOLIC ACID 0.4MG TAB TAKE ONE TABLET BY MOUTH ONCE A DAY ACTIVE (S) Indication: FOR FOLIC ACID SUPPLEMENTATION 5) METHOCARBAMOL 500MG TAB TAKE 1 TABLET BY MOUTH THREE TIMES A ACTIVE DAY NEEDED Indication: FOR MUSCLE SPASM 6) TABLET CUTTER USE TABLET CUTTER NEEDED ACTIVE Indication: FOR TABLET CUTTING Active Non-VA Medications Status = 1) Non-VA LISINOPRIL 40MG TAB 20MG BY MOUTH ONCE A DAY ACTIVE 2) Non-VA METOPROLOL SUCCINATE 50MG SA TAB 25MG BY MOUTH ONCE A ACTIVE DAY 3) Non-VA ROSUVASTATIN CA 40MG TAB 20MG BY MOUTH EVERY EVENING ACTIVE 4) Non-VA [id number]/VILANTERO L25MCG 30D INH 1 PUFF ORAL ACTIVE INHALATION ONCE A DAY 10 Total Medications ALLERGIES OR DRUG SENSITIVITIES: CHANTIX DIET: Regular ACTIVITY: As tolerated INFORMATION REGARDING CONDITION OR PROPER HOME AND/OR WOUND CARE: Not Applicable RETURN TO WORK: As tolerated DISPOSITION: [X} Discharge home [ ] Discharge to home hospice [ ] Transfer to skilled nursing [ ] Transfer to rehab [ ] Transfer to psychiatry [ ] Transfer to Spinal cord injury unit [ ] Transfer to hospice [ ] Transfer to outside facility: [ ] Transfer to outside facility under hospice: [ ] : autopsy approved by Next of Kin [ ] : autopsy not approved by Next of Kin [ ] : autopsy resulting from 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 [ ] The patient is not competent in the VA sense of the word. TOTAL TIME SPENT FOR FINAL HOSPITAL DISCHARGE: 30 minutes. Verified By KENIA/LUCÍA /loreta/ LIDIA Corral [place] MEDICINE RESIDENT Signed: 11/30/2024 11:04 /argelia FISHER MD Attending Physician - Internal Medicine Cosigned: 12/01/2024 12:06 12/01/2024 ADDENDUM STATUS: COMPLETED Attending attestation: I saw and examined the patient on day of discharge. I have reviewed all charting, laboratory studies, and imaging studies. I agree with the discharge summary as written above. Total time spent with discharge counseling, coordination with SW/CM, and writing of prescriptions: 14 min /loreta/ ZAKIYA FISHER MD Attending Physician - Internal Medicine Signed: 12/01/2024 12:[address] [facility] Nov 28, 2024 01:48 PM NURSING TRANSFER SUMMARIZATION DISCHARGE NOTE: LOCAL TITLE: YAKELIN DISCHARGE/TRANSFER SUMMARY ST STANDARD TITLE: NURSING TRANSFER SUMMARIZATION DISCHARGE NOTE DATE OF NOTE: NOV 28, 2024@13:48 ENTRY DATE: NOV 28, 2024@13:48:33 AUTHOR: ALFRED OSORIO COSIGNER: URGENCY: STATUS: COMPLETED DISCHARGE - TRANSFER SUMMARY Action: Discharge Diagnosis: Last Admission: 11/25/24 2:42:53 pm Admit Dx: ATRIAL FIBRILATION Age: 69 Allergies: CHANTIX Patient Condition: Stable Vital Signs: Temperature: 97.8 F [36.6 C] (11/28/2024 13:37) Pulse: 62 (11/28/2024 13:37) Respiration: 16 (11/28/2024 13:37) Blood Pressure: 145/80 (11/28/2024 13:37) Pain: 0 (11/28/2024 13:37) Fall Risk Assessment Score: Fall Risk Level: Low Risk ======= SUICIDE SCREEN ======= Result of C-SSRS screener done was NEGATIVE. C-SSRS Screen is Negative LEVEL OF LIFT REQUIRED: No assistance Safe Patient Handling - Patient Mobility Assessment Tool Isolation: No Precautions: None Orientation: x3 Hygiene: Self Care Nutrition: Regular diet Special needs: Assistance: Independent Bowel/Bladder: Date of last bowel movement: Nov Defecation: Normal Able to void: YES Continent: YES Catheter: No Wound / Skin Condition: Assessment Type: SKIN REINSPECTION/REASSESSMENT SKIN INSPECTION: Skin Color: Usual for ethnicity Skin Temperature: Warm Skin Moisture: Normal Skin Turgor: Elastic (normal/immediate) Tico Skin Assessment: The patient's Tico Scale Score is 21. The patient is considered not at risk for development of pressure ulcers/injuries. Sensory perception -- ability to respond meaningfully to pressure-related discomfort No impairment. Moisture -- degree to which skin is exposed to moisture Rarely moist. Activity -- ability to change and control body position Walks occasionally. Mobility -- ability to change and control body position No limitation. Nutrition -- usual food intake patterns Adequate. Friction and shear No apparent problem. INTERVENTIONS: The pressure injury interventions were not needed - patient/resident is not at risk. RISK FACTORS THAT INCREASE RISK FOR DEVELOPING PRESSURE INJURIES The patient/resident does not have any additional risk factors. SKIN ALTERATIONS: Pressure Ulcer/Injury Documentation from the past year: No data available SKIN ALTERATIONS: Wound Documentation from the past year: No data available for: Skin Integrity - Wound Skin Integrity - Wound Second Skin Integrity - Wound Third Skin Integrity - Wound Fourth Skin Integrity - Wound Fifth Skin Integrity - Wound Additional SKIN INTEGRITY: Intact STANDARD OF CARE / PRACTICE IMPLEMENTED: Indicate status at Discharge/Transfer: Stabilized Flu Shot Given: No Patient received flu vaccine prior to admission Pneumococcal Shot Given: No Patient refused MRSA Discharge Swab Done: No Reason: Discharged/Transfered to: Own home without home care services Accompanied by (Name & Relationship): Next of Kin notified: Discharge/Transfer Mode: Ambulatory Discharged/Transferred with: Written Discharge Instructions Clothing / Valuables returned: Yes Describe: See personal effects Prosthetics with patient: Dentures/Partials with patient: None Glasses with patient: NA Other: NA Printed MD Instruction sheet with medication list reviewed and given to the patient/caregiver. Patient/Caregiver verifies medication list is complete and accurate. Patient/Caregiver appeared ready for instruction (good eye contact, appropriate questions, active participation, etc) Person(s) who received education: Patient Education Topic/Teaching Needs: Disease/Condition Medication Diet/Nutrition Follow-up Instructions Methods used Included: A copy of the Discharge Instructions Health Summary given to patient/caregiver and signed by patient/guardian. Patient's medications were reviewed and reconciled by discharge team. Teaching outcomes: Good level of understanding /es/ JOHNNY CARRASCON, RN REGISTERED NURSE Signed: 11/28/2024 13:53 ALFRED OSORIO [facility] Nov 28, 2024 01:47 PM NURSING NOTE: LOCAL TITLE: VAAES NSG IV INSERTION AND MAINTENANCE STANDARD TITLE: NURSING NOTE DATE OF NOTE: NOV 28, 2024@13:47 ENTRY DATE: NOV 28, 2024@13:47:29 AUTHOR: ALFRED OSORIO COSIGNER: URGENCY: STATUS: COMPLETED Version 2.2 Charting in accordance with [facility] [place] STANDARD (WAAES) ACUTE INPATIENT/REHABILITATION NURSING ADMISSION SCREENING, ASSESSMENT, AND STANDARDS OF CARE IV Line Insertion and Maintenance Peripheral IV Line #1: Discontinue: Location: Left, Forearm Date/Time: Nov@13:47 Reason for discontinuation: Therapy complete /es/ KATHARINE CARRASCO, RN REGISTERED NURSE Signed: 11/28/2024 13:48 ALFRED OSORIO [facility] Nov 28, 2024 01:39 PM NURSING INPATIENT NOTE: LOCAL TITLE: WAAES NURSING FREQUENT DOCUMENTATION STANDARD TITLE: NURSING INPATIENT NOTE DATE OF NOTE: NOV 28, 2024@13:39 ENTRY DATE: NOV 28, 2024@13:39:35 AUTHOR: RICKETTS,ELENO N EXP COSIGNER: URGENCY: STATUS: COMPLETED Version 2.4 Charting in accordance with [facility] [place] STANDARD (WAAES) ACUTE INPATIENT/REHABILITATION NURSING ADMISSION SCREENING, ASSESSMENT, AND STANDARDS OF CARE ORAL INTAKE (PERCENTAGE OF MEAL EATEN) Lunch: 51% - 75% PROVIDER NOTIFICATION Provider Name: Alfred Ramos RN Notification Reason: Other: Notified nurse of pt b/p reading *145/80 /loreta/ AJ DAVILA STAFF [employer]ONS OFFICER Signed: 11/28/2024 13:41 Receipt Acknowledged By: 11/28/2024 13:48 /loreta/ KATHARINE CARRASCO, RN REGISTERED NURSE ELENO RICKETTS [facility] Nov 28, 2024 12:53 PM PHYSICIAN EDUCATIO N DISCHARGE NOTE: LOCAL TITLE: DISCHARGE INSTRUCTIONS [facility] STANDARD TITLE: PHYSICIAN EDUCATION DISCHARGE NOTE DATE OF NOTE: NOV 28, 2024@12:53 ENTRY DATE: NOV 28, 2024@12:53:57 AUTHOR: LIDIA SWANSON EXP COSIGNER: ZAKIYA FISHER URGENCY: STATUS: COMPLETED MEDICATIONS THAT WERE CHANGED: None MEDICATIONS THAT WERE STOPPED (AND REASON FOR STOPPING): Aspirin 81mg, patient reported not taking NEW MEDICATIONS WITH INSTRUCTIONS: Tikosyn (Dofetilide) 250mcg, oral. Take twice daily 12 hours apart Folic acid: Take once a day for folate deficiency DATE OF ADMISSION: Nov 14:42 DATE OF DISCHARGE: Nov REASON(S) FOR BEING IN THE HOSPITAL: Tikosyn load YOUR OUTPATIENT CARE TEAM: Team Information Primary Care Team: NIK OTERO E03 Provider: WES GARCIA Position: NURSE [facility]ATTS FUTURE APPOINTMENTS: 01/27/2025 06:00 -PRE-OP EVAL NURSING AM INPATIENT APPOINTMENT 01/27/2025 06:15 -PACEMAKER EP LAB INPATIENT APPOINTMENT 01/28/2025 14:00 -CARDIOLOGY F4 INPATIENT APPOINTMENT 2025 13:00 -CARDIOLOGY F4 INPATIENT APPOINTMENT 08/23/2025 11:00 -ONCOLOGY STOREKEEPER ENGINEERING 1 INPATIENT APPOINTMENT YOUR KNOWN ALLERGIES: IDANIA CALL YOUR DOCTOR IF YOU HAVE ANY OF THESE PROBLEMS: Cardiovascular Disease (heart problems): Inability to tolerate your usual activities, Feeling of pressure or pain to the chest, back, jaw, shoulder, or arm Problems with speech, vision, balance, or movement, Loss of consciousness (pass out), become confused, or have a seizure PHYSICAL ACTIVITY: Activity as tolerated DIET: Oral Nutrition/Diet Instructions Regular Diet: A healthy eating plan will maintain or promote good health. -Consume a diet rich in fruits, vegetables, whole grains, and healthy oils -Choose lean protein sources such as fish, poultry, beans/legumes, and non-fat or low-fat dairy sources. -Limit saturated fat such as fatty cuts of beef, ashby, pork, chicken with skin, whole milk, cream, butter -Minimize consumption of sugary drinks, desserts -Limit deep-fried foods and fast foods -Limit the use of added table salts, salt-type seasoning, and processed foods -Speak to a Registered Dietitian about other healthy eating tips and meal planning DEVICES AT DISCHARGE: Not Applicable: The patient should be discharged with no urinary catheter or intravenous access TOBACCO & ALCOHOL: Discharge tobacco cessation medication(s) not indicated due to: Other reason(s) documented by physician/STAGE SET DESIGNER/PA or pharmacist Reason(s): Prior smoker Discharge medications for alcohol/drug disorder not offered Reason: does not drink DISCHARGE INSTRUCTIONAL MATERIALS: CONDITION OF PATIENT AT DISCHARGE: stable DISCHARGE DESTINATION: home NOTE: If you are having feelings of Depression or Emotional Distress, or feel you just need to talk with someone, please call [phone]), [facility] - Press 1. COPY OF DISCHARGE INSTRUCTIONS: The patient/family understands and will be provided a copy of these discharge instructions. DISCHARGE MEDICATION LIST: Active Outpatient Medications (including Supplies): Active Outpatient [...] ACTIVE DAY NEEDED Indication: FOR MUSCLE SPASM 4) TABLET CUTTER USE TABLET CUTTER NEEDED ACTIVE Indication: FOR TABLET CUTTING Pending Outpatient Medications Status 1) DOFETILIDE 250MCG CAP TAKE ONE CAPSULE BY MOUTH EVERY 12 PENDING HOURS - AVOID GRAPEFRUIT/GRAPEFRUIT JUICE WHILE ON THIS MEDICATION. Indication: FOR ATRIAL FIBRILLATION 2) FOLIC ACID 0.4MG TAB TAKE ONE TABLET BY MOUTH ONCE A DAY PENDING Indication: FOR FOLIC ACID SUPPLEMENTATION Active Non-VA Medications Status 1) Non-VA LISINOPRIL 40MG TAB 20MG BY MOUTH ONCE A DAY ACTIVE 2) Non-VA METOPROLOL SUCCINATE 50MG SA TAB 25MG BY MOUTH ONCE A ACTIVE DAY 3) Non-VA ROSUVASTATIN CA 40MG TAB 20MG BY MOUTH EVERY EVENING ACTIVE 4) Non-VA [id number]/VILANTERO L25MCG 30D INH 1 PUFF ORAL ACTIVE INHALATION ONCE A DAY 10 Total Medications Active Remote Medications: No Active Remote Medications for this patient /argelia SWANSON MEDICINE RESIDENT Signed: 11/28/2024 13:01 /loreta/ ZAKIYA FISHER MD Attending Physician - Internal Medicine Cosigned: 11/28/2024 13:02 LIDIA SWANSON [facility] Nov 28, 2024 10:59 AM CARDIOLOGY NOTE: LOCAL TITLE: CARDIOLOGY TELEMETRY STL STANDARD TITLE: CARDIOLOGY NOTE DATE OF NOTE: NOV 28, 2024@10:59 ENTRY DATE: NOV 28, 2024@10:59:49 AUTHOR: RADHA NELSON EXP COSIGNER: URGENCY: STATUS: COMPLETED CARDIOLOGY TELEMETRY STL Has ADDENDA Telemetry reviewed: Normal Sinus Rhythm, 1 AVB / IVCD CLIENT SERVICES ADMINISTRATOR #: 16 RATE: 50s-70S SHIFT: 7-3 Shift COMMENT: /argelia NELSON Casing Splitter-EKG Signed: 11/28/2024 11:00 11/28/2024 ADDENDUM STATUS: COMPLETED Pt has been discontinued from tele at 1335 pe RN. /argelia NELSON Casing Splitter-EKG Signed: 11/28/2024 13:31 RADHA NELSON [facility] Nov 28, 2024 09:15 AM NURSING INPATIENT NOTE: LOCAL TITLE: VAAES NURSING FREQUENT DOCUMENTATION STANDARD TITLE: NURSING INPATIENT NOTE DATE OF NOTE: NOV 28, 2024@09:15 ENTRY DATE: NOV 28, 2024@09:15:59 AUTHOR: ELENO RICKETTS EXP COSIGNER: URGENCY: STATUS: COMPLETED Version 2.4 Charting in accordance with [place] [facility] [place] STANDARD (WAAES) ACUTE INPATIENT/REHABILITATION NURSING ADMISSION SCREENING, ASSESSMENT, AND STANDARDS OF CARE ORAL INTAKE (PERCENTAGE OF MEAL EATEN) Breakfast: 26% - 50% Reasons for Inadequate Intake: Preferences/Dislikes /loreta/ AJ DAVILA STAFF [employer] OFFICER Signed: 11/28/2024 09:16 ELENO RICKETTS [facility] Nov 28, 2024 08:54 AM NURSING INPATIENT NOTE: LOCAL TITLE: [facility] NURSING FREQUENT DOCUMENTATION STANDARD TITLE: NURSING INPATIENT NOTE DATE OF NOTE: NOV 28, 2024@08:54 ENTRY DATE: NOV 28, 2024@08:54:53 AUTHOR: ALFRED OSORIO EXP COSIGNER: URGENCY: STATUS: COMPLETED Version 2.4 Charting in accordance with [place] [facility]ED [place] STANDARD (WAAES) ACUTE INPATIENT/REHABILITATION NURSING ADMISSION SCREENING, ASSESSMENT, AND STANDARDS OF CARE NATIONAL EARLY WARNING SCORE (NEWS) The following vital measurements were used to complete the NEWS. Measurement DT TEMP PULSE RESP BP POx F(C) (L/MIN)(%) 11/28/2024 08:53 98.4(36.9) 61 16 123/70 96 The NEWS total is 0. 1. Temperature (C/F): Score = 0 36.1 - 38.0 C (96.9 - 100.4 F) 2. Pulse: Score = 0 51-90 3. Respirations: Score = 0 12-20 4. Blood Pressure (Only Systolic BP, mmHg): Score = 0 111-219 5. Pulse Oximetry: Score = 0 96% or greater 6. Supplemental oxygen in use: Score = 0 No 7. AVPU: Score = 0 Alert Patient Status: Remains on unit ACTIVITIES OF DAILY LIVING Hygiene ADLs: Foot Care: Inspection Oral Care: Non-ventilator patient: Patient teeth brushed: Independently The was educated that poor oral hygiene increases the risk of hospital acquired pneumonia and dental problems like gingivitis and tooth decay. [place] was educated using their preferred method and verbalized understanding. /loreta/ KATHARINE CARRASCO, RN REGISTERED NURSE Signed: 11/28/2024 08:56 ALFRED OSORIO [facility] Nov 28, 2024 08:30 AM NURSING NOTE: LOCAL TITLE: [facility] SKIN INSPECTION/ASSESSMENT STANDARD TITLE: NURSING NOTE DATE OF NOTE: NOV 28, 2024@08:30 ENTRY DATE: NOV 28, 2024@12:34:48 AUTHOR: ALFRED OSORIO EXP COSIGNER: URGENCY: STATUS: COMPLETED Assessment Type: SKIN REINSPECTION/REASSESSMENT SKIN INSPECTION: Skin Color: Usual for ethnicity Skin Temperature: Warm Skin Moisture: Normal Skin Turgor: Elastic (normal/immediate) Tico Skin Assessment: The patient's Tico Scale Score is 21. The patient is considered not at risk for development of pressure ulcers/injuries. Sensory perception -- ability to respond meaningfully to pressure-related discomfort No impairment. Moisture -- degree to which skin is exposed to moisture Rarely moist. Activity -- ability to change and control body position Walks occasionally. Mobility -- ability to change and control body position No limitation. Nutrition -- usual food intake patterns Adequate. Friction and shear No apparent problem. INTERVENTIONS: The pressure injury interventions were not needed - patient/resident is not at risk. RISK FACTORS THAT INCREASE RISK FOR DEVELOPING PRESSURE INJURIES: The patient/resident has the following: Device(s): (nasogastric tubes, oxygen tubing, urinary catheters, cell phone etc.) Comment: Telemetry SKIN ALTERATIONS: Pressure Ulcer/Injury Documentation from the past year: No data available SKIN ALTERATIONS: Wound Documentation from the past year: No data available for: Skin Integrity - Wound Skin Integrity - Wound Second Skin Integrity - Wound Third Skin Integrity - Wound Fourth Skin Integrity - Wound Fifth Skin Integrity - Wound Additional SKIN INTEGRITY: Intact /es/ KATHARIEN CARRASCO, RN REGISTERED NURSE Signed: 11/28/2024 12:38 ALFRED OSORIO [facility] Nov 28, 2024 08:30 AM NURSING INPATIENT NOTE: LOCAL TITLE: [facility] ACUTE INPATIENT NSG SHIFT ASSESSMENT STANDARD TITLE: NURSING INPATIENT NOTE DATE OF NOTE: NOV 28, 2024@08:30 ENTRY DATE: NOV 28, 2024@12:22:40 AUTHOR: ALFRED OSORIO EXP COSIGNER: URGENCY: STATUS: COMPLETED Version 2.2 Charting in accordance with [facility] [place] [facility] STANDARD (WAAES) ACUTE INPATIENT/REHABILITATION NURSING ADMISSION SCREENING, ASSESSMENT, AND STANDARDS OF CARE ASSESSMENT HANDOFF Bedside report and handoff completed Safety check completed PAIN ASSESSMENT Patient's acceptable pain goal: 0 No pain Are you currently experiencing pain? No: Pain Score: 0 DIAZ FALL SCALE & TIPS PROGRAM Diaz Fall Scale: The Diaz Fall scale was performed and score was 35. This is indicative of moderate risk for falls. History of falling: immediate or within 3 months? No Secondary diagnosis: Yes Ambulatory aid: None/bedrest/nurse assist Intravenous therapy/Heparin lock: Yes Gait/Transferring: Normal/bed rest/immobile Mental Status: Oriented to own ability/knows own limitations Fall Tailoring Interventions for Patient Safety (TIPS) Fall TIPS reviewed with patient: Yes Interventions: Communicate recent fall or risk of harm Assistance out of bed: Call for assistance before getting out of bed ENVIRONMENTAL SAFETY MANAGEMENT Implemented safety standards of care: -[place] to unit & environment -Adequate room lighting -Bed in low and locked position -Call light within reach -Personal items within reach -Traffic path in room free of clutter -Non-slip footwear -Upper/half length side rails up for bed mobility -Sensory aids within reach -Encourage patient to utilize sensory support Additional safety measures: Increased frequency of rounding NEUROLOGICAL Neurological Orientation: Oriented x4 Level of Consciousness (AVPU): Alert = Appears aware of and responsive to the environment on their own. Follows commands, opens eyes spontaneously, and tracks objects. Affect/behavior: Cooperative Calm NEUROMUSCULAR/NEUROVASCULA R EXTREMITIES ASSESSMENT Strength: Director Of Labor Relations Bilateral: Strong Upper Extremity Bilateral: Full strength Lower Extremity Bilateral: Full strength Sensation: Upper Extremity Sensation Bilateral: Intact Lower Extremity Sensation Bilateral: Intact Temperature: Upper Extremity Temperature Bilateral: Warm Lower Extremity Temperature Bilateral: Warm CARDIOVASCULAR Heart Sounds: Normal (S1S2) Heart Rate/Rhythm (without teletypesetter monitor): Regular Cardiac Rhythm Analysis: Normal Sinus Rhythm Telemetry Transmitter Pack #: 16 Capillary Refill: All 4 extremities, less than or equal to 3 seconds. Peripheral Pulses: All 4 extremities, 3+ normal. Edema: None Cardiovascular - Embolism Prevention: Comment: Apixaban RESPIRATORY Respirations: Unlabored Pattern: Regular Breath Sounds Auscultated: Anterior and posterior Left Upper Lobe: Clear Right Upper Lobe: Clear Right Middle Lobe: Clear Left Lower Lobe: Clear Right Lower Lobe: Clear GASTROINTESTINAL No bowel movement reported by patient Elimination: Continent Abdominal Description: Rounded Palpation: Soft, Non-tender Bowel Sounds: RUQ: Active LUQ: Active RLQ: Active LLQ: Active GENITOURINARY Elimination: Continent ========= INTEGUMENTARY/SKIN/WOUND - (INCLUDING TICO) SEE NOTE: VAAES SKIN INPECTION/ASSESSMENT ========= MOBILITY Mobility Status: Independent: Able to stand and step without staff assistance Gait: Steady IV LINES Peripheral IV: Line #1: Assessment: Location: Left, Forearm Gauge: 20 Dressing Condition: Clean, dry, intact Site Condition: No redness, swelling, pain Line Status: Flushed PSYCHOSOCIAL Type of Emotional Support Provided: 1:1 discussion, Ventilation of feelings encouraged /es/ KATHARINE CARRASCO, RN REGISTERED NURSE Signed: 11/28/2024 12:29 ALFRED OSORIO [facility] Nov 28, 2024 06:38 AM CARDIOLOGY NOTE: LOCAL TITLE: CARDIOLOGY TELEMETRY ST STANDARD TITLE: CARDIOLOGY NOTE DATE OF NOTE: NOV 28, 2024@06:38 ENTRY DATE: NOV 28, 2024@06:38:55 AUTHOR: MARGOT HASSAN COSIGNER: URGENCY: STATUS: COMPLETED Telemetry reviewed: Normal Sinus Rhythm, Sinus Bradycardia w\ 1 AVB CLIENT SERVICES ADMINISTRATOR #: 16 RATE: 50s-60s SHIFT: 11-7 Shift COMMENT: /loreta/ AMRGOT HASSAN IV TECHNICIAN Signed: 11/28/2024 06:39 MARGOT HASSAN [facility] Nov 28, 2024 04:45 AM NURSING INPATIENT NOTE: LOCAL TITLE: VAAES ACUTE INPATIENT NSG SHIFT ASSESSMENT STANDARD TITLE: NURSING INPATIENT NOTE DATE OF NOTE: NOV 28, 2024@04:45 ENTRY DATE: NOV 28, 2024@04:46:08 AUTHOR: TERRA MONCADA COSIGNER: URGENCY: STATUS: COMPLETED Version 2.2 Charting in accordance with [place]ED [place] STANDARD (WAAES) ACUTE INPATIENT/REHABILITATION NURSING ADMISSION SCREENING, ASSESSMENT, AND STANDARDS OF CARE REASSESSMENT PAIN ASSESSMENT Patient's acceptable pain goal: Are you currently experiencing pain? No: NEUROLOGICAL Neurological Orientation: Oriented x4 Level of Consciousness (AVPU): Alert = Appears aware of and responsive to the environment on their own. Follows commands, opens eyes spontaneously, and tracks objects. NEUROMUSCULAR/NEUROVASCULA R EXTREMITIES ASSESSMENT Strength: Director Of Labor Relations Bilateral: Strong Upper Extremity Bilateral: Full strength Lower Extremity Bilateral: Full strength Sensation: Upper Extremity Sensation Bilateral: Intact Lower Extremity Sensation Bilateral: Intact Temperature: Upper Extremity Temperature Bilateral: Warm Lower Extremity Temperature Bilateral: Warm CARDIOVASCULAR Heart Sounds: Normal (S1S2) Cardiac Rhythm Analysis: Other: Sinus Rhythm w/1 AVB,IVCD,OCC PVCs, OCC to [facility] Telemetry Transmitter Pack #: 10 Peripheral Pulses: All 4 extremities, 3+ normal. Edema: None RESPIRATORY Respirations: Unlabored Breath Sounds Auscultated: Anterior only Left Upper Lobe: Clear Right Upper Lobe: Clear Right Middle Lobe: Clear Left Lower Lobe: Clear Right Lower Lobe: Clear GASTROINTESTINAL No bowel movement reported by patient Elimination: Continent Abdominal Description: Flat Bowel Sounds: RUQ: Active LUQ: Active RLQ: Active LLQ: Active GENITOURINARY Elimination: Continent ========= INTEGUMENTARY/SKIN/WOUND - (INCLUDING TICO) SEE NOTE: VAAES SKIN INPECTION/ASSESSMENT ========= /loreta/ Terra Moncada RN REGISTERED NURSE Signed: 11/28/2024 04:50 TERRA MONCADA [facility] Nov 27, 2024 10:57 PM CARDIOLOGY NOTE: LOCAL TITLE: CARDIOLOGY TELEMETRY STL STANDARD TITLE: CARDIOLOGY NOTE DATE OF NOTE: NOV 27, 2024@22:57 ENTRY DATE: NOV 27, 2024@22:57:45 AUTHOR: RUI RAUSCH EXP COSIGNER: URGENCY: STATUS: COMPLETED Telemetry reviewed: Sinus Rhythm w/1 AVB,IVCD,OCC PVCs, OCC to [employer] PACS CLIENT SERVICES ADMINISTRATOR #: 10 RATE: 60s-70s SHIFT: 3-11 Shift COMMENT: Evening shift placed Telemetry strips in the Patient's hard charts on the floor. /loreta/ RUI RAUSCH Casing Splitter EKG Signed: 11/27/2024 23:02 RUI RAUSCH [facility] Nov 27, 2024 08:29 PM NURSING INPATIENT NOTE: LOCAL TITLE: [facility] NURSING FREQUENT DOCUMENTATION STANDARD TITLE: NURSING INPATIENT NOTE DATE OF NOTE: NOV 27, 2024@20:29 ENTRY DATE: NOV 27, 2024@20:30:05 AUTHOR: TERRA MONCADA EXP COSIGNER: URGENCY: STATUS: COMPLETED Version 2.4 Charting in accordance with [facility] [place] STANDARD (VAAES) ACUTE INPATIENT/REHABILITATION NURSING ADMISSION SCREENING, ASSESSMENT, AND STANDARDS OF CARE NATIONAL EARLY WARNING SCORE (NEWS) The following vital measurements were used to complete the NEWS. Measurement DT TEMP PULSE RESP BP POx F(C) (L/MIN)(%) 11/27/2024 20:28 97.8(36.6) 67 18 132/75 94 The NEWS total is 1. 1. Temperature (C/F): Score = 0 36.1 - 38.0 C (96.9 - 100.4 F) 2. Pulse: Score = 0 51-90 3. Respirations: Score = 0 12-20 4. Blood Pressure (Only Systolic BP, mmHg): Score = 0 111-219 5. Pulse Oximetry: Score = 1 94% - 95% 6. Supplemental oxygen in use: Score = 0 No 7. AVPU: Score = 0 Alert Patient Status: Remains on unit ACTIVITIES OF DAILY LIVING Hygiene ADLs: Oral Care: Non-ventilator patient: Patient teeth brushed: Independently The was educated that poor oral hygiene increases the risk of hospital acquired pneumonia and dental problems like gingivitis and tooth decay. [place] was educated using their preferred method and verbalized understanding. /loreta/ Terra Moncada RN REGISTERED NURSE Signed: 11/27/2024 20:33 TERRA MONCADA [facility] Nov 27, 2024 08:09 PM NURSING INPATIENT NOTE: LOCAL TITLE: [facility] ACUTE INPATIENT NSG SHIFT ASSESSMENT STANDARD TITLE: NURSING INPATIENT NOTE DATE OF NOTE: NOV 27, 2024@20:09 ENTRY DATE: NOV 28, 2024@02:10:18 AUTHOR: TERRA MONCADA EXP COSIGNER: URGENCY: STATUS: COMPLETED Version 2.2 Charting in accordance with [place] APPROVED [place] STANDARD (WAAES) ACUTE INPATIENT/REHABILITATION NURSING ADMISSION SCREENING, ASSESSMENT, AND STANDARDS OF CARE ASSESSMENT HANDOFF Bedside report and handoff completed Safety check completed PAIN ASSESSMENT Patient's acceptable pain goal: Are you currently experiencing pain? No: DIAZ FALL SCALE & TIPS PROGRAM Diaz Fall Scale: The Diaz Fall scale was performed and score was 35. This is indicative of moderate risk for falls. History of falling: immediate or within 3 months? No Secondary diagnosis: Yes Ambulatory aid: None/bedrest/nurse assist Intravenous therapy/Heparin lock: Yes Gait/Transferring: Normal/bed rest/immobile Mental Status: Oriented to own ability/knows own limitations Fall Tailoring Interventions for Patient Safety (TIPS) Fall TIPS initiated with patient: Yes Interventions: Communicate recent fall or risk of harm IV assistance when walking Fall TIPS reviewed with patient: Yes Interventions: Communicate recent fall or risk of harm IV assistance when walking ENVIRONMENTAL SAFETY MANAGEMENT Implemented safety standards of care: -[place] to unit & environment -Adequate room lighting -Bed in low and locked position -Call light within reach -Personal items within reach -Traffic path in room free of clutter -Non-slip footwear -Upper/half length side rails up for bed mobility -Sensory aids within reach -Encourage patient to utilize sensory support NEUROLOGICAL Neurological Orientation: Oriented x4 Level of Consciousness (AVPU): Alert = Appears aware of and responsive to the environment on their own. Follows commands, opens eyes spontaneously, and tracks objects. NEUROMUSCULAR/NEUROVASCULA R EXTREMITIES ASSESSMENT Strength: Director Of Labor Relations Bilateral: Strong Upper Extremity Bilateral: Full strength Lower Extremity Bilateral: Full strength Sensation: Upper Extremity Sensation Bilateral: Intact Lower Extremity Sensation Bilateral: Intact Temperature: Upper Extremity Temperature Bilateral: Warm Lower Extremity Temperature Bilateral: Warm CARDIOVASCULAR Heart Sounds: Normal (S1S2) Cardiac Rhythm Analysis: Other: Sinus Rhythm w/1 AVB,IVCD,OCC PVCs, OCC to [facility] Telemetry Transmitter Pack #: 10 Peripheral Pulses: All 4 extremities, 3+ normal. Edema: None RESPIRATORY Respirations: Unlabored Breath Sounds Auscultated: Anterior only Left Upper Lobe: Clear Right Upper Lobe: Clear Right Middle Lobe: Clear Left Lower Lobe: Clear Right Lower Lobe: Clear GASTROINTESTINAL No bowel movement reported by patient Abdominal Description: Flat Palpation: Soft, Non-tender Bowel Sounds: RUQ: Active LUQ: Active RLQ: Active LLQ: Active GENITOURINARY Elimination: Continent ========= INTEGUMENTARY/SKIN/WOUND - (INCLUDING TICO) SEE NOTE: VAAES SKIN INPECTION/ASSESSMENT ========= IV LINES Peripheral IV: Line #1: Assessment: Location: Left, Forearm Gauge: 20 Dressing Condition: Clean, dry, intact Site Condition: No redness, swelling, pain Line Status: Patent/infusing /loreta/ Terra Moncada RN REGISTERED NURSE Signed: 11/28/2024 02:15 TERRA MONCADA [facility] Nov 27, 2024 08:07 PM NURSING NOTE: LOCAL TITLE: [facility] SKIN INSPECTION/ASSESSMENT STANDARD TITLE: NURSING NOTE DATE OF NOTE: NOV 27, 2024@20:07 ENTRY DATE: NOV 28, 2024@02:07:27 AUTHOR: TERRA MONCADA EXP COSIGNER: URGENCY: STATUS: COMPLETED Assessment Type: SKIN REINSPECTION/REASSESSMENT SKIN INSPECTION: Skin Color: Usual for ethnicity Skin Temperature: Warm Skin Moisture: Normal Skin Turgor: Elastic (normal/immediate) Tico Skin Assessment: The patient's Tico Scale Score is 22. The patient is considered not at risk for development of pressure ulcers/injuries. Sensory perception -- ability to respond meaningfully to pressure-related discomfort No impairment. Moisture -- degree to which skin is exposed to moisture Rarely moist. Activity -- ability to change and control body position Walks frequently. Mobility -- ability to change and control body position No limitation. Nutrition -- usual food intake patterns Adequate. Friction and shear No apparent problem. INTERVENTIONS: The pressure injury interventions were not needed - patient/resident is not at risk. SKIN INTEGRITY: Intact /loreta/ Terra Moncada RN REGISTERED NURSE Signed: 11/28/2024 02:08 TERRA MONCADA [facility] Nov 27, 2024 05:56 PM INTERNAL MEDICINE INPATIENT NOTE: LOCAL TITLE: MEDICINE GENERAL INPATIENT NOTE STANDARD TITLE: INTERNAL MEDICINE INPATIENT NOTE DATE OF NOTE: NOV 27, 2024@17:56 ENTRY DATE: NOV 27, 2024@17:56:32 AUTHOR: INOCENCIA ROSE COSIGNER: ZAKIYA FISHER URGENCY: STATUS: COMPLETED MEDICINE GENERAL INPATIENT NOTE Has ADDENDA MEDICINE INPATIENT GENERAL NOTE STL 69 year old MALE admitted on Nov 14:42 for Last Admission: 11/25/24 2:42:53 pm Admit Dx: ATRIAL FIBRILATION. Subjective Complaints: No complaints this AM. No complaints upon returning from cardioversion. Would like to go home. Major events over the last day: Had electrical cardioversion today. Continued on tikosyn. Active Inpatient Medications: 1) ALBUTEROL (CFC-F) INHL,ORAL INH ORAL QID 2 PUFFS 2) APIXABAN (PA-F) TAB,ORAL PO BID 5MG 3) LISINOPRIL TAB PO QDAILY 20MG 4) METOPROLOL SUCCINATE (SUST RELEASE) PO QDAILY 25MG 5) ROSUVASTATIN TAB PO QPM 20MG 6) MELATONIN CAP/TAB PO QHS PRN 10MG 7) METHOCARBAMOL TAB PO TID PRN 500MG 8) DOFETILIDE (PA-F) CAP,ORAL PO Q12H 500MCG Vital Signs: Pulse: 68 (11/27/2024 16:34) BP:160/99 (11/27/2024 16:34) RESP:18 (11/27/2024 16:34) Pain:0 (11/27/2024 16:34) Tmax: Pulse Oximetry: Weight: 259.5 lb [117.71 kg] (11/25/2024 14:51) PHYSICAL EXAM: General: Resting comfortably in his bed Lungs: CTAB CVS: Difficult to appreciate heart sounds Abdomen: SNN Recent Labs: BASIC METABOLIC PANEL: SODIUM 140 mEq/L 11/27/2024 14:00 POTASSIUM 4.1 mEq/L 11/27/2024 14:00 CHLORIDE 106 mEq/L 11/27/2024 14:00 UREA NITROGEN 15.1 mg/dL 11/27/2024 14:00 CREATININE 1.20 mg/dL 11/27/2024 14:00 CALCIUM 8.9 mg/dL 11/27/2024 14:00 CARBON DIOXIDE 29 mEq/L 11/27/2024 14:00 GLUCOSE 137 H mg/dL 11/27/2024 14:00 EGFR (CKD-EPI 2020) 66.3 11/27/2024 14:00 WBC: 9.3 10*3/uL (11/26/24 20:00) HCT: 44.3 % (11/26/24 20:00) HGB: HGB 14.0 g/dL 11/26/2024 20:00 Plt: PLT 232 10*3/uL 11/26/2024 20:00 CK-MB: ____ TROPONIN I HISTORY: No data available Other Labs and Data: Assessment/Plan: Mr. Ruelas is a 69 year old male with afib here for a tikosyn load. #Tikosyn load #Persistent atrial fibrillation #Hypokalemia #HypomMg had cardioversion on 11/27/24. - Cardiology following -Apixaban 5 mg PO BID -continue metoprolol succ 25 mg PO - Tikosyn 500 mg BID with EKG afterward - Hold Tikosyn if QTc > 550 increased >15% from baseline (457) - Replete lytes #History of CVA #Muscle spasm -Methocarbamol 500 mg PO TID PRN #HTN #HLD -Continue lisinopril 20 mg PO -Continue crestor 20 mg PO #COPD #lung cancer s/p resection -Albuterol QID /loreta/ INOCENCIA ROSE RAILROAD AUDITOR Signed: 11/27/2024 18:00 /argelia FISHER MD Attending Physician - Internal Medicine Cosigned: 11/28/2024 08:19 11/28/2024 ADDENDUM STATUS: COMPLETED I interviewed and examined the patient on 11/27/2024 with the house staff. I reviewed the laboratory and radiologic findings. I reviewed the note created by Dr. Rose and agree in general with the data, synthesis, and plan as outlined in his note and discussed on rounds with any additional findings noted below. /argelia FISHER MD Attending Physician - Internal Medicine Signed: 11/28/2024 08:19 INOCENCIA ROSE [facility] Nov 27, 2024 03:24 PM CARDIOLOGY NOTE: LOCAL TITLE: CARDIOLOGY TELEMETRY [facility] STANDARD TITLE: CARDIOLOGY NOTE DATE OF NOTE: NOV 27, 2024@15:24 ENTRY DATE: NOV 27, 2024@15:25:40 AUTHOR: JARVIS IRELAND EXP COSIGNER: URGENCY: STATUS: COMPLETED Telemetry reviewed: Atrial Flutter w/variable conduction, 8 beats vtach CLIENT SERVICES ADMINISTRATOR #: 16 RATE: 60s-80s SHIFT: 7-3 Shift COMMENT: ECG strips can be found in the patient's hard copy chart. /loreta/ JARVIS IRELAND Coin Tech ekg Signed: 11/27/2024 15:28 JARVIS IRELAND [facility] Nov 27, 2024 11:04 AM CONSENT: LOCAL TITLE: CONSENT CLINICAL IMED STANDARD TITLE: CONSENT DATE OF NOTE: NOV 27, 2024@11:04:18 ENTRY DATE: NOV 27, 2024@11:04:21 AUTHOR: DEV DIXON EXP COSIGNER: URGENCY: STATUS: COMPLETED VistA Imaging - Scanned Document Signature Informed Consent for Heart - Cardioversion (Cardioversion) 1. Anatomical Location: Heart 2. Informed consent was obtained at 10:56 AM on 11/27/24. The full consent document can be accessed through [email or web address]. 3. Patient name: ELI RUELAS 4. The patient HAS decision-making capacity. 5. Surrogate (if applicable): 6. Reason for the treatment (diagnosis, condition, or indication): Atrial fibrillation (AF). AF is a rapid heartbeat in the upper chambers of the heart. 7. Treatment/procedure: In this procedure, medicine or an electrical shock is given. This helps restore the heart to a normal rhythm. Medications are given through a vein. An electrical shock is administered after you are sedated. Your heart is monitored during the procedure. 8. Anesthesia will be administered. A member of the anesthesia care team will visit you before your treatment to discuss the type(s) of anesthesia you may need and to give you more information about anesthesia. It may become necessary to alter your anesthesia care plan after this discussion. Devices may be applied to your body and placed in your veins and arteries to monitor you during your anesthesia. All forms of anesthesia involve some risk. Minor (not life-threatening) risks include: nausea, vomiting, and pain where an injection is given. Although rare, severe complications include: injury to blood vessels, drug reactions, bleeding, blood clots, loss of sensation or limb function, infection, paralysis, stroke, brain damage, heart attack, and . Here is a basic description of the major types of anesthesia including their risks in addition to those described above: General anesthesia involves drugs that are injected into the bloodstream or breathed into the lungs. A tube or other device may be inserted into your airway to help you breathe. The expected benefit is that you will be totally unconscious and you will not feel pain during the procedure. Additional risks include: injury to the teeth, throat, eyes, or lung. In less than one case in a thousand, patients may be aware of activities during their surgery. Spinal or epidural analgesia/anesthesia involves a drug being injected through a needle or catheter placed into the spinal canal. The expected benefit is a temporary decreased feeling in the area of surgical incision, allowing surgery to proceed without pain. Additional risks include: headache, backache, convulsions, persistent weakness and or numbness, abnormal heart rhythms, and incomplete pain relief during the operation that may require general anesthesia. Major/minor nerve block involves a drug being injected near nerves providing loss or reduction of sensation and movement to the area. The expected benefit is a temporary loss of feeling and/or movement of a specific limb or area of your body. Additional risks include: convulsions, persistent weakness and or numbness, and incomplete pain relief during the operation that may require general anesthesia. Monitored anesthesia care involves monitoring of the heart and lungs to make sure that they are functioning adequately during your procedure. A local anesthetic will be injected to prevent pain, and the anesthesia care provider may use drugs to help you relax, and lessen any pain. You may remain conscious throughout your procedure, or you may be given medications that will make you unconscious. The expected benefit is that you will be comfortable during your operation with a minimum amount of anesthesia. This may result in a shorter stay in the hospital. Additional risks include: incomplete pain relief during the operation that may require additional anesthesia. Convulsions from the injected drug are a rare but serious complication. 9. Consent to Blood Products (if applicable): It is not expected that blood products will be used in this treatment/procedure. 10. Practitioner obtaining consent: Marques Miller MD 11. Supervising practitioner: 12. Practitioner(s) performing or supervising treatment/procedure (if not listed above): 13. Witness Name(s): 14. Comments: SCANNED DOCUMENT SIGNATURE NOT REQUIRED Electronically Filed: 11/27/2024 by: DEV KIMBROUGH [facility] Nov 27, 2024 08:59 AM CARDIOLOGY DIAGNOS TIC STUDY CONSULT: LOCAL TITLE: EKG CONSULT ST[facility] STANDARD TITLE: CARDIOLOGY DIAGNOSTIC STUDY CONSULT DATE OF NOTE: NOV 27, 2024@08:59:31 ENTRY DATE: NOV 27, 2024@08:59:31 AUTHOR: CLINICAL,DEVICE PRO EXP COSIGNER: URGENCY: STATUS: COMPLETED DOCUMENT IN VISTA IMAGING SEE FULL REPORT IN VISTA IMAGING SIGNATURE NOT REQUIRED SEE SIGNATURE IN VISTA IMAGING ([place] EKG) AUTO-INSTRUMENT DIAGNOSIS Procedure: 92091 12 Lead ECG Release Status: Released Off-Line Verified Date Verified: Nov 27, 2024@08:59:26 59290.2 Ventricular Rate: 59 BPM 57899.5 QRS Duration: 130 ms 56368.6 Q-T Interval: 546 ms 10627 QTC Calculation(Bazett)540 ms 09280.13 Calculated R Flagler: -74 degrees 19541.14 Calculated T [place]ler: 76 degrees Atrial flutter with variable AV conduction. Right bundle branch block Left anterior fascicular block Bifascicular block Nonspecific ST and T-wave abnormalities. Prolonged QTc interval. Abnormal ECG When compared with ECG of 26-NOV-2024 13:29,no significant change. Administrative Closure: 11/27/2024 by: DEVICE PROXY SERVICE CLINICAL CLINICAL,DEVICE PROXY SERVICE CLINICAL,DEVICE PROXY SERVICE [facility] Nov 27, 2024 07:49 AM NURSING NOTE: LOCAL TITLE: [facility] SKIN INSPECTION/ASSESSMENT STANDARD TITLE: NURSING NOTE DATE OF NOTE: NOV 27, 2024@07:49 ENTRY DATE: NOV 27, 2024@07:49:29 AUTHOR: REG PEREZ EXP COSIGNER: URGENCY: STATUS: COMPLETED Assessment Type: SKIN REINSPECTION/REASSESSMENT SKIN INSPECTION: Skin Color: Usual for ethnicity Skin Temperature: Warm Skin Moisture: Normal Skin Turgor: Elastic (normal/immediate) Tico Skin Assessment: The patient's Tico Scale Score is 21. The patient is considered not at risk for development of pressure ulcers/injuries. Sensory perception -- ability to respond meaningfully to pressure-related discomfort No impairment. Moisture -- degree to which skin is exposed to moisture Rarely moist. Activity -- ability to change and control body position Walks occasionally. Mobility -- ability to change and control body position No limitation. Nutrition -- usual food intake patterns Adequate. Friction and shear No apparent problem. INTERVENTIONS: The pressure injury interventions were not needed - patient/resident is not at risk. SKIN INTEGRITY: Intact /es/ KATHARINE SANDY, RN REGISTERED NURSE Signed: 11/27/2024 07:50 REG PEREZ [facility] Nov 27, 2024 07:46 AM NURSING INPATIENT NOTE: LOCAL TITLE: [facility] ACUTE INPATIENT NSG SHIFT ASSESSMENT STANDARD TITLE: NURSING INPATIENT NOTE DATE OF NOTE: NOV 27, 2024@07:46 ENTRY DATE: NOV 27, 2024@07:46:30 AUTHOR: REG PEREZ EXP COSIGNER: URGENCY: STATUS: COMPLETED Version 2.2 Charting in accordance with [facility] [place] STANDARD (WAAES) ACUTE INPATIENT/REHABILITATION NURSING ADMISSION SCREENING, ASSESSMENT, AND STANDARDS OF CARE ASSESSMENT HANDOFF Bedside report and handoff completed Safety check completed PAIN ASSESSMENT Patient's acceptable pain goal: Are you currently experiencing pain? No: Pain Score: 0 DIAZ FALL SCALE & TIPS PROGRAM Diaz Fall Scale: The Diaz Fall scale was performed and score was 20. This is indicative of low risk of falls. History of falling: immediate or within 3 months? No Secondary diagnosis: No Ambulatory aid: None/bedrest/nurse assist Intravenous therapy/Heparin lock: Yes Gait/Transferring: Normal/bed rest/immobile Mental Status: Oriented to own ability/knows own limitations ENVIRONMENTAL SAFETY MANAGEMENT Implemented safety standards of care: -[place] to unit & environment -Adequate room lighting -Bed in low and locked position -Call light within reach -Personal items within reach -Traffic path in room free of clutter -Non-slip footwear -Upper/half length side rails up for bed mobility -Sensory aids within reach -Encourage patient to utilize sensory support NEUROLOGICAL Neurological Orientation: Oriented x4 Level of Consciousness (AVPU): Alert = Appears aware of and responsive to the environment on their own. Follows commands, opens eyes spontaneously, and tracks objects. Lynn Agitation Sedation Scale (RASS): 0 Alert and calm NEUROMUSCULAR/NEUROVASCULA R EXTREMITIES ASSESSMENT Strength: Director Of Labor Relations Bilateral: Strong Upper Extremity Bilateral: Full strength Lower Extremity Bilateral: Full strength Sensation: Upper Extremity Sensation Bilateral: Intact Lower Extremity Sensation Bilateral: Intact Temperature: Upper Extremity Temperature Bilateral: Warm Lower Extremity Temperature Bilateral: Warm CARDIOVASCULAR Cardiac Rhythm Analysis: Atrial Fibrillation Telemetry Transmitter Pack #: 16 Peripheral Pulses: All 4 extremities, 3+ normal. Edema: None RESPIRATORY Respirations: Unlabored Pattern: Regular Breath Sounds Auscultated: Left Upper Lobe: Clear Right Upper Lobe: Clear Right Middle Lobe: Clear Left Lower Lobe: Clear Right Lower Lobe: Clear GASTROINTESTINAL Elimination: Continent Palpation: Soft, Non-tender Bowel Sounds: RUQ: Active LUQ: Active RLQ: Active LLQ: Active GENITOURINARY Elimination: Continent ========= INTEGUMENTARY/SKIN/WOUND - (INCLUDING TICO) SEE NOTE: VAAES SKIN INPECTION/ASSESSMENT ========= ACTIVITIES OF DAILY LIVING Hygiene ADLs: Oral Care: Non-ventilator patient: Patient teeth brushed: Independently The [place] was educated that poor oral hygiene increases the risk of hospital acquired pneumonia and dental problems like gingivitis and tooth decay. [place] was educated using their preferred method and verbalized understanding. MOBILITY Mobility Status: Independent: Gait: Steady IV LINES Peripheral IV: Line #1: Assessment: Location: Left, Forearm Gauge: 20 Dressing Condition: Clean, dry, intact Site Condition: No redness, swelling, pain Line Status: /loreta/ KATHARINE SANDY, RN REGISTERED NURSE Signed: 11/27/2024 07:49 REG PEREZ [facility] Nov 27, 2024 07:45 AM NURSING INPATIENT NOTE: LOCAL TITLE: [facility] NURSING FREQUENT DOCUMENTATION STANDARD TITLE: NURSING INPATIENT NOTE DATE OF NOTE: NOV 27, 2024@07:45 ENTRY DATE: NOV 27, 2024@07:45:43 AUTHOR: REG PEREZ EXP COSIGNER: URGENCY: STATUS: COMPLETED Version 2.4 Charting in accordance with [place] [facility] [place] STANDARD (WAAES) ACUTE INPATIENT/REHABILITATION NURSING ADMISSION SCREENING, ASSESSMENT, AND STANDARDS OF CARE NATIONAL EARLY WARNING SCORE (NEWS) The following vital measurements were used to complete the NEWS. Measurement DT TEMP PULSE RESP BP POx F(C) (L/MIN)(%) 11/27/2024 07:45 97.7(36.5) 67 18 146/101 94 The NEWS total is 1. 1. Temperature (C/F): Score = 0 36.1 - 38.0 C (96.9 - 100.4 F) 2. Pulse: Score = 0 51-90 3. Respirations: Score = 0 12-20 4. Blood Pressure (Only Systolic BP, mmHg): Score = 0 111-219 5. Pulse Oximetry: Score = 1 94% - 95% 6. Supplemental oxygen in use: Score = 0 No 7. AVPU: Score = 0 Alert Patient Status: Remains on unit /loreta/ KATHARINE SANDY, RN REGISTERED NURSE Signed: 11/27/2024 07:46 REG PEREZ [facility] Nov 27, 2024 05:06 AM NURSING INPATIENT NOTE: LOCAL TITLE: [facility] ACUTE INPATIENT NSG SHIFT ASSESSMENT STANDARD TITLE: NURSING INPATIENT NOTE DATE OF NOTE: NOV 27, 2024@05:06 ENTRY DATE: NOV 27, 2024@05:06:39 AUTHOR: CARLOS GRIFFITH COSIGNER: URGENCY: STATUS: COMPLETED Version 2.2 Charting in accordance with [facility] [place] STANDARD (WAAES) ACUTE INPATIENT/REHABILITATION NURSING ADMISSION SCREENING, ASSESSMENT, AND STANDARDS OF CARE REASSESSMENT HANDOFF Bedside report and handoff completed Safety check completed PAIN ASSESSMENT Patient's acceptable pain goal: 0 No pain Are you currently experiencing pain? No: Pain Score: 0 ========= INTEGUMENTARY/SKIN/WOUND - (INCLUDING TICO) SEE NOTE: VAAES SKIN INPECTION/ASSESSMENT ========= no change from previous assessment /es/ CARLOS GRIFFITH REGISTERED NURSE Signed: 11/27/2024 05:07 CARLOS GRIFFITH [facility] Nov 27, 2024 05:01 AM CARDIOLOGY NOTE: LOCAL TITLE: CARDIOLOGY TELEMETRY [facility] STANDARD TITLE: CARDIOLOGY NOTE DATE OF NOTE: NOV 27, 2024@05:01 ENTRY DATE: NOV 27, 2024@05:01:22 AUTHOR: NANCY GRAVES EXP COSIGNER: URGENCY: STATUS: COMPLETED Telemetry reviewed: Atrial Fibrillation, w/IVCD CLIENT SERVICES ADMINISTRATOR #: 16 RATE: 50s-60s SHIFT: 11-7 Shift COMMENT: A hard copy of telemetry strip was placed in patient's chart. /loreta/ NANCY GRAVES Medical Government Minister/EKG Signed: 11/27/2024 05:02 NANCY GRAVES [facility] Nov 26, 2024 10:05 PM NURSING INPATIENT NOTE: LOCAL TITLE: VAAES NURSING FREQUENT DOCUMENTATION STANDARD TITLE: NURSING INPATIENT NOTE DATE OF NOTE: NOV 26, 2024@22:05 ENTRY DATE: NOV 26, 2024@22:05:07 AUTHOR: CARLOS GRIFFITH EXP COSIGNER: URGENCY: STATUS: COMPLETED Version 2.4 Charting in accordance with [facility] [place] STANDARD (WAAES) ACUTE INPATIENT/REHABILITATION NURSING ADMISSION SCREENING, ASSESSMENT, AND STANDARDS OF CARE NATIONAL EARLY WARNING SCORE (NEWS) The following vital measurements were used to complete the NEWS. Measurement DT TEMP PULSE RESP BP POx F(C) (L/MIN)(%) 11/26/2024 20:33 97.7(36.5) 59 20 151/91 93 The NEWS total is 2. 1. Temperature (C/F): Score = 0 36.1 - 38.0 C (96.9 - 100.4 F) 2. Pulse: Score = 0 51-90 3. Respirations: Score = 0 12-20 4. Blood Pressure (Only Systolic BP, mmHg): Score = 0 111-219 5. Pulse Oximetry: Score = 2 92% - 93% 6. Supplemental oxygen in use: Score = 0 No 7. AVPU: Score = 0 Alert Patient Status: Remains on unit /loreta/ CARLOS GRIFFITH REGISTERED NURSE Signed: 11/26/2024 22:06 CARLOS GRIFFITH [facility] Nov 26, 2024 10:00 PM NURSING NOTE: LOCAL TITLE: [facility] SKIN INSPECTION/ASSESSMENT STANDARD TITLE: NURSING NOTE DATE OF NOTE: NOV 26, 2024@22:00 ENTRY DATE: NOV 27, 2024@00:21:37 AUTHOR: CARLOS GRIFFITH EXP COSIGNER: URGENCY: STATUS: COMPLETED Assessment Type: SKIN REINSPECTION/REASSESSMENT SKIN INSPECTION: Skin Color: Usual for ethnicity Skin Temperature: Warm Skin Moisture: Normal Skin Turgor: Elastic (normal/immediate) Tico Skin Assessment: The patient's Tico Scale Score is 23. The patient is considered not at risk for development of pressure ulcers/injuries. Sensory perception -- ability to respond meaningfully to pressure-related discomfort No impairment. Moisture -- degree to which skin is exposed to moisture Rarely moist. Activity -- ability to change and control body position Walks frequently. Mobility -- ability to change and control body position No limitation. Nutrition -- usual food intake patterns Excellent. Friction and shear No apparent problem. INTERVENTIONS: The pressure injury interventions were not needed - patient/resident is not at risk. RISK FACTORS THAT INCREASE RISK FOR DEVELOPING PRESSURE INJURIES The patient/resident does not have any additional risk factors. SKIN INTEGRITY: Intact /es/ CARLOS GRIFFITH REGISTERED NURSE Signed: 11/27/2024 00:22 CARLOS GRIFFITH [facility] Nov 26, 2024 10:00 PM NURSING INPATIENT NOTE: LOCAL TITLE: [facility] ACUTE INPATIENT NSG SHIFT ASSESSMENT STANDARD TITLE: NURSING INPATIENT NOTE DATE OF NOTE: NOV 26, 2024@22:00 ENTRY DATE: NOV 27, 2024@00:22:59 AUTHOR: CARLOS GRIFFITH EXP COSIGNER: URGENCY: STATUS: COMPLETED Version 2.2 Charting in accordance with [facility] [place] [facility] STANDARD (WAAES) ACUTE INPATIENT/REHABILITATION NURSING ADMISSION SCREENING, ASSESSMENT, AND STANDARDS OF CARE ASSESSMENT HANDOFF Bedside report and handoff completed Safety check completed PAIN ASSESSMENT Patient's acceptable pain goal: 0 No pain Are you currently experiencing pain? No: Pain Score: 0 DIAZ FALL SCALE & TIPS PROGRAM Diaz Fall Scale: The Diaz Fall scale was performed and score was 15. This is indicative of low risk of falls. History of falling: immediate or within 3 months? No Secondary diagnosis: Yes Ambulatory aid: None/bedrest/nurse assist Intravenous therapy/Heparin lock: No Gait/Transferring: Normal/bed rest/immobile Mental Status: Oriented to own ability/knows own limitations ENVIRONMENTAL SAFETY MANAGEMENT Implemented safety standards of care: -[place] to unit & environment -Adequate room lighting -Bed in low and locked position -Call light within reach -Personal items within reach -Traffic path in room free of clutter -Non-slip footwear -Upper/half length side rails up for bed mobility -Sensory aids within reach -Encourage patient to utilize sensory support NEUROLOGICAL Neurological Orientation: Oriented x4 Level of Consciousness (AVPU): Alert = Appears aware of and responsive to the environment on their own. Follows commands, opens eyes spontaneously, and tracks objects. RESPIRATORY Respirations: Unlabored GASTROINTESTINAL Elimination: Continent GENITOURINARY Elimination: Continent ========= INTEGUMENTARY/SKIN/WOUND - (INCLUDING TICO) SEE NOTE: VAAES SKIN INPECTION/ASSESSMENT ========= ACTIVITIES OF DAILY LIVING Hygiene ADLs: Oral Care: Non-ventilator patient: Patient teeth brushed: Independently Pericare: Independent MOBILITY Mobility Status: Independent: Able to stand and step without staff assistance IV LINES Peripheral IV: Line #1: Assessment: Location: Left, Forearm Gauge: 20 Dressing Condition: Clean, dry, intact Transparent dressing Site Condition: No redness, swelling, pain Line Status: PSYCHOSOCIAL Type of Emotional Support Provided: 1:1 discussion, Treatment discussion ADULT EDUCATION Updates to barriers to learning: None evident /loreta/ CARLOS GRIFFITH REGISTERED NURSE Signed: 11/27/2024 00:26 CARLOS GRIFFITH [facility] Nov 26, 2024 08:37 PM NURSING INPATIENT NOTE: LOCAL TITLE: [facility] NURSING FREQUENT DOCUMENTATION STANDARD TITLE: NURSING INPATIENT NOTE DATE OF NOTE: NOV 26, 2024@20:37 ENTRY DATE: NOV 26, 2024@20:37:38 AUTHOR: JOHANNY SY EXP COSIGNER: URGENCY: STATUS: COMPLETED Version 2.4 Charting in accordance with [facility] STAND[facility] ([facility]) ACUTE INPATIENT/REHABILITATION NURSING ADMISSION SCREENING, ASSESSMENT, AND STANDARDS OF CARE PROVIDER NOTIFICATION Provider Name: Carlos Griffith RN Notification Reason: Other: Pulse 59 /loreta/ JOHANNY SY [place] PLANNING AIDE Signed: 11/26/2024 20:39 Receipt Acknowledged By: 11/26/2024 20:45 /argelia GRIFFITH REGISTERED NURSE JOHANNY SY [facility] Nov 26, 2024 08:36 PM ADDENDUM: LOCAL TITLE: Addendum STANDARD TITLE: ADDENDUM DATE OF NOTE: NOV 26, 2024@20:36:36 ENTRY DATE: NOV 26, 2024@20:36:36 AUTHOR: JOHANNY SY EXP COSIGNER: URGENCY: STATUS: COMPLETED Wrong pulse. Correct pulse is 59 /loreta/ JOHANNY SY [employer] [employer] PLANNING AIDE Signed: 11/26/2024 20:37 Receipt Acknowledged By: 11/26/2024 20:44 /loreta/ CARLOS GRIFFITH REGISTERED NURSE --- Original Document --- 11/26/24 [facility] NURSING FREQUENT DOCUMENTATION: Version 2.4 Charting in accordance with [place] APPROVED [facility] [facility]AND[facility] ([facility]) ACUTE INPATIENT/REHABILITATION NURSING ADMISSION SCREENING, ASSESSMENT, AND STANDARDS OF CARE PROVIDER NOTIFICATION Provider Name: Carlos Griffith RN Notification Reason: Other: Blood Pressure 151/91, Pulse 93 /loreta/ JOHANNY SY [employer] [employer] PLANNING AIDE Signed: 11/26/2024 20:35 Receipt Acknowledged By: * AWAITING SIGNATURE * CARLOS GRIFFITH [facility] Nov 26, 2024 08:33 PM NURSING INPATIENT NOTE: LOCAL TITLE: [facility] NURSING FREQUENT DOCUMENTATION STANDARD TITLE: NURSING INPATIENT NOTE DATE OF NOTE: NOV 26, 2024@20:33 ENTRY DATE: NOV 26, 2024@20:33:58 AUTHOR: JOHANNY SY EXP COSIGNER: URGENCY: STATUS: COMPLETED [facility] NURSING FREQUENT DOCUMENTATION Has ADDENDA Version 2.4 Charting in accordance with [place] APPROVED [facility] [facility] [facility]AND[facility] ([facility]) ACUTE INPATIENT/REHABILITATION NURSING ADMISSION SCREENING, ASSESSMENT, AND STANDARDS OF CARE PROVIDER NOTIFICATION Provider Name: Carlos Griffith RN Notification Reason: Other: Blood Pressure 151/91, Pulse 93 /loreta/ JOHANNY SY [employer] [employer] PLANNING AIDE Signed: 11/26/2024 20:35 Receipt Acknowledged By: 11/26/2024 21:51 /argelia GRIFFITH REGISTERED NURSE 11/26/2024 ADDENDUM STATUS: COMPLETED Wrong pulse. Correct pulse is 59 /loreta/ JOHANNY SY [employer]NA [employer] PLANNING AIDE Signed: 11/26/2024 20:37 Receipt Acknowledged By: 11/26/2024 20:44 /loreta/ CARLOS GRIFFITH REGISTERED NURSE JOHANNY SY [facility] Nov 26, 2024 07:41 PM CARDIOLOGY NOTE: LOCAL TITLE: CARDIOLOGY TELEMETRY STL STANDARD TITLE: CARDIOLOGY NOTE DATE OF NOTE: NOV 26, 2024@19:41 ENTRY DATE: NOV 26, 2024@19:41:36 AUTHOR: JANES MORRISON EXP COSIGNER: URGENCY: STATUS: COMPLETED CARDIOLOGY TELEMETRY STL Has ADDENDA Telemetry reviewed: Atrial Fibrillation CLIENT SERVICES ADMINISTRATOR #: 16 RATE: 50s60s SHIFT: 3-11 Shift COMMENT: A hard copy of the telemetry strip was placed in the patients chart. /loreta/ JANES MORRISON IV TECHNICIAN Signed: 11/26/2024 19:42 11/26/2024 ADDENDUM STATUS: COMPLETED Notified the nursing belt and link shop supervisor regarding the telemetry room unable to get a continuos telemetry signal on the telemetry monitors. tried changing the telebox batteries and lead adapter. the patients rhythm is on the telemtry box it self. Held the box up to the wifi to get a signal, it picked it up then lost the signal. Construction people are working on the wiring and that might have something to do with the intermittent signal. Nursing belt and link shop supervisor told to inform the patient nurse and for the nurse to call the doctor to make them aware of the situation. /argelia MORRISON IV TECHNICIAN Signed: 11/26/2024 22:15 JANES MORRISON [facility] Nov 26, 2024 05:17 PM NURSING INPATIENT NOTE: LOCAL TITLE: [facility] NURSING FREQUENT DOCUMENTATION STANDARD TITLE: NURSING INPATIENT NOTE DATE OF NOTE: NOV 26, 2024@17:17 ENTRY DATE: NOV 26, 2024@17:17:07 AUTHOR: REG PEREZ EXP COSIGNER: URGENCY: STATUS: COMPLETED Version 2.4 Charting in accordance with [facility]AND[facility] ([facility]) ACUTE INPATIENT/REHABILITATION NURSING ADMISSION SCREENING, ASSESSMENT, AND STANDARDS OF CARE ORAL INTAKE (PERCENTAGE OF MEAL EATEN) Breakfast: 1% - 25% Lunch: 26% - 50% Dinner: 76% - 100% /argelia PEREZ, BSN, RN REGISTERED NURSE Signed: 11/26/2024 17:17 REG PEREZ [facility] Nov 26, 2024 03:00 PM INTERNAL MEDICINE INPATIENT NOTE: LOCAL TITLE: MEDICINE GENERAL INPATIENT NOTE STANDARD TITLE: INTERNAL MEDICINE INPATIENT NOTE DATE OF NOTE: NOV 26, 2024@15:00 ENTRY DATE: NOV 26, 2024@15:00:22 AUTHOR: LIDIA SWANSON EXP COSIGNER: ZAKIYA FISHER URGENCY: STATUS: COMPLETED MEDICINE GENERAL INPATIENT NOTE Has ADDENDA MEDICINE INPATIENT GENERAL NOTE STL 69 year old MALE admitted on DRAGAN 25,2025 14:42 for Last Admission: 11/25/24 2:42:53 pm Admit Dx: ATRIAL FIBRILATION. Mr. Ruelas is a 69 year old male here for Tikosyn loading, scheduled. Interval: Patient received melatonin overnight for sleep. Patient on telemetry overnight had asymptomatic pauses of 2.4s and bradycardic, patient denies any symptoms of this. Discussed plan to not do SWATI on patient and start the tikosyn. Major events over the last day: Active Inpatient Medications: 1) ALBUTEROL (CFC-F) INHL,ORAL INH ORAL QID 2 PUFFS 2) APIXABAN (PA-F) TAB,ORAL PO BID 5MG 3) LISINOPRIL TAB PO QDAILY 20MG 4) METOPROLOL SUCCINATE (SUST RELEASE) PO QDAILY 25MG 5) ROSUVASTATIN TAB PO QPM 20MG 6) METHOCARBAMOL TAB PO TID PRN 500MG 7) MELATONIN CAP/TAB PO QHS PRN 10MG 8) DOFETILIDE (PA-F) CAP,ORAL PO Q12H 500MCG Vital Signs: Pulse: 69 (11/26/2024 11:58) BP:119/85 (11/26/2024 11:58) RESP:20 (11/26/2024 11:58) Pain:0 (11/26/2024 08:30) Tmax: Pulse Oximetry: Weight: 259.5 lb [117.71 kg] (11/25/2024 14:51) Intake/Output: PHYSICAL EXAM: General:NAD, well appearing, alert adn interactive HEENT: MMM Lungs: Posterior lung campos CTAB, normal respiratory effort on RA CVS: RRR no m/r/g Abdomen: Soft/NT/ND Neuro: A&Ox3, at baseline Recent Labs: BASIC METABOLIC PANEL: SODIUM 139 mEq/L 11/26/2024 14:00 POTASSIUM 4.4 mEq/L 11/26/2024 14:00 CHLORIDE 106 mEq/L 11/26/2024 14:00 UREA NITROGEN 13.4 mg/dL 11/26/2024 14:00 CREATININE 1.21 mg/dL 11/26/2024 14:00 CALCIUM 9.0 mg/dL 11/26/2024 14:00 CARBON DIOXIDE 30 mEq/L 11/26/2024 14:00 GLUCOSE 118 H mg/dL 11/26/2024 14:00 EGFR (CKD-EPI 2020) 65.6 11/26/2024 14:00 WBC: 8.8 10*3/uL (11/25/24 19:05) HCT: 40.2 % (11/25/24 19:05) HGB: HGB 12.9 L g/dL 11/25/2024 19:05 Plt: PLT 209 10*3/uL 11/25/2024 19:05 CK-MB: ____ TROPONIN I HISTORY: No data available Other Labs and Data: Assessment/Plan: Mr. Ruelas is a 69 year old male here for a tikosyn load. #Tikosyn load #Persistent atrial fibrillation #Hypokalemia #HypomMg -Apixaban 5 mg PO BID -continue metoprolol succ 25 mg PO -SWATI not recommended at this time -CBC -CMP to RFP -Mg -Consulted cardiology, recs 11/26: -Start Tikosyn 500mcg bid. Please obtain an EKG 2 hrs after each dose. Please call cardiology is QTc >550 (has RBBB) or increased >15% from baseline. -Continue Eliquis 5mg bid -Continue Metop succinate 25mg qdaily -Replete K (3.2 in today's labs). Maintain K>4, Mg>2 -Tele monitoring 11/26: -First EKG only 10% increase in QTc 11/26 -Gave 40 meq of K on 11/26, repeat RFP 4.4 -Mg repleted with 4 g IV -EKGs must be entered DAILY #History of CVA Patient now denies taking plavix, discontinue 11/26 -stop Plavix 75 mg PO daily -stop ASA 81 mg daily #Muscle spasm -Methocarbamol 500 mg PO TID PRN #HTN #HLD -Continue lisinopril 20 mg PO -Continue crestor 20 mg PO #COPD #lung cancer s/p resection -Albuterol QID #Insomnia -melatonin given night of 11/25 Diet: Regular DVT ppx: apixaban 5 mg PO BID Dispo: home PPI ppx: not indicated Pain: not indicated Code: Full code Stewart: No Lines No VTE prophylaxis: Life Sustaining Treatment Orders Disposition: Living arrangements prior to admission: Anticipate discharge date: Anticipate discharge to: /loreta/ LIDIA SWANSON MEDICINE RESIDENT Signed: 11/26/2024 15:34 /loreta/ ZAKIYA FISHER MD Attending Physician - Internal Medicine Cosigned: 11/27/2024 12:48 11/26/2024 ADDENDUM STATUS: COMPLETED #Hypophosphatemia RFP has phos at 1.8 -Ordered PO K-phos neutral tab x2 for 3 times -Check next RFP /loreta/ LIDIA SWANSON MEDICINE RESIDENT Signed: 11/26/2024 19:51 /loreta/ ZAKIYA FISHER MD Attending Physician - Internal Medicine Cosigned: 11/27/2024 12:49 11/27/2024 ADDENDUM STATUS: COMPLETED I interviewed and examined the patient on 11/26/2024 with the house staff. I reviewed the laboratory and radiologic findings. I reviewed the note created by Dr. Swanson and agree in general with the data, synthesis, and plan as outlined in his note and discussed on rounds with any additional findings noted below. Please see H&P for full attending attestation. /loreta/ ZAKIYA FISHER MD Attending Physician - Internal Medicine Signed: 11/27/2024 12:49 LIDIA SWANSON [facility] Nov 26, 2024 02:40 PM CARDIOLOGY DIAGNOS TIC STUDY CONSULT: LOCAL TITLE: EKG CONSULT STL STANDARD TITLE: CARDIOLOGY DIAGNOSTIC STUDY CONSULT DATE OF NOTE: NOV 26, 2024@14:40:07 ENTRY DATE: NOV 26, 2024@14:40:07 AUTHOR: CLINICAL,DEVICE PRO EXP COSIGNER: URGENCY: STATUS: COMPLETED DOCUMENT IN VISTA IMAGING SEE FULL REPORT IN VISTA IMAGING SIGNATURE NOT REQUIRED SEE SIGNATURE IN VISTA IMAGING ([place] EKG) AUTO-INSTRUMENT DIAGNOSIS Procedure: 19137 12 Lead ECG Release Status: Released Off-Line Verified Date Verified: Nov 26, 2024@14:40 26956.2 Ventricular Rate: 59 BPM 34223.3 Atrial Rate: 288 BPM 77683.5 QRS Duration: 130 ms 14798.6 Q-T Interval: 510 ms 59736 QTC Calculation(Bazett)504 ms 12101.13 Calculated R Flagler: -69 degrees 93999.14 Calculated T Flagler: 9 degrees Atrial flutter with variable A-V block Right bundle branch block Left anterior fascicular block Bifascicular block T-wave abnormality, consider inferolateral ischemia. Abnormal ECG When compared with ECG of 25-NOV-2024 18:25, No significant change. Administrative Closure: 11/26/2024 by: DEVICE PROXY SERVICE CLINICAL CLINICAL,DEVICE PROXY SERVICE CLINICAL,DEVICE PROXY SERVICE [facility] Nov 26, 2024 02:07 PM CARDIOLOGY NOTE: LOCAL TITLE: CARDIOLOGY TELEMETRY STL STANDARD TITLE: CARDIOLOGY NOTE DATE OF NOTE: NOV 26, 2024@14:07 ENTRY DATE: NOV 26, 2024@14:07:36 AUTHOR: JARVIS IRELAND EXP COSIGNER: URGENCY: STATUS: COMPLETED Telemetry reviewed: Atrial Flutter w/ variable conduction CLIENT SERVICES ADMINISTRATOR #: 16 RATE: 50s-70s SHIFT: 7-3 Shift COMMENT: ECG strips can be found in the back of the patient's hard copy chart. /loreta/ JARVIS IRELAND Medical Government Minister ekg Signed: 11/26/2024 14:26 JARVIS IRELAND [facility] Nov 26, 2024 02:00 PM NURSING NOTE: LOCAL TITLE: YAKELIN PROGRESS NOTE STL STANDARD TITLE: NURSING NOTE DATE OF NOTE: NOV 26, 2024@14:00 ENTRY DATE: NOV 26, 2024@14:00:42 AUTHOR: REG PEREZ EXP COSIGNER: URGENCY: STATUS: COMPLETED PT HAD HOME MEDS LOCKED UP IN LOCKER, RN OPENED LOCKER FOR TO TAKE PILL BOX HOME /loreta/ REG PEREZ, BSN, RN REGISTERED NURSE Signed: 11/26/2024 14:01 REG PEREZ [facility] Nov 26, 2024 10:15 AM CARDIOLOGY DIAGNOS TIC STUDY CONSULT: LOCAL TITLE: EKG CONSULT STL STANDARD TITLE: CARDIOLOGY DIAGNOSTIC STUDY CONSULT DATE OF NOTE: NOV 26, 2024@10:15:41 ENTRY DATE: NOV 26, 2024@10:15:41 AUTHOR: CLINICAL,DEVICE PRO EXP COSIGNER: URGENCY: STATUS: COMPLETED DOCUMENT IN VISTA IMAGING SEE FULL REPORT IN VISTA IMAGING SIGNATURE NOT REQUIRED SEE SIGNATURE IN VISTA IMAGING ([place] EKG) AUTO-INSTRUMENT DIAGNOSIS Procedure: [id number] 12 Lead ECG Release Status: Released Off-Line Verified Date Verified: Nov 26, 2024@10:15:36 48063.2 Ventricular Rate: 56 BPM 90986.5 QRS Duration: 142 ms 09845.6 Q-T Interval: 474 ms 41353 QTC Calculation(Bazett)457 ms 74968.13 Calculated R Flagler: -51 degrees 88850.14 Calculated T Flagler: 41 degrees Atrial fibrillation with slow ventricular response Right bundle branch block Left anterior fascicular block Bifascicular block Nonspecific ST and T-wave abnormalities. Abnormal ECG When compared with ECG of 25-NOV-2024 15:00, Anterior ST and T-wave abnormalities have worsened slightly. Administrative Closure: 11/26/2024 by: DEVICE PROXY SERVICE CLINICAL CLINICAL,DEVICE PROXY SERVICE CLINICAL,DEVICE PROXY SERVICE [facility] Nov 26, 2024 09:21 AM NUTRITION DIETETIC S E & M NOTE: LOCAL TITLE: NUTRITION ASSESSMENT [facility] STANDARD TITLE: NUTRITION DIETETICS E & M NOTE DATE OF NOTE: NOV 26, 2024@09:21 ENTRY DATE: NOV 26, 2024@09:21:54 AUTHOR: CHADWICK ANDREW EXP COSIGNER: URGENCY: STATUS: COMPLETED Nutrition risk per subjective global assessment (SGA) SGA rating is 1-5 indicating predicted nutrition problem. NUTRITION ASSESSMENT CLIENT HISTORY: 69 year old MALE admitted for A Fib. Patient medical health history: COPD, Hep C, CKD, CVA, A Fib Food and Nutrition related history: Diet Order: NPO (11/25/24) Food and Fluid Intake: NPO for TTE. States that he is hungry, last meal was yesterday morning. Reports appetite prior to admission as all right. States that he likes meat and potatoes, does not eat many vegetables (only corn or green beans) or any fruit. Pertinent Medications and Herbal Supplements: POTASSIUM CHLORIDE INJ,SOLN IV ONE-TIME Anthropometric Measurements: Ht: 75 in [190.5 cm] (08/28/2024 13:35) Wt: 259.5 lb [117.71 kg] (11/25/2024 14:51) BMI: 32.5 Patient Weight History - Last Four 1. 259.5 lbs. / 117.7 kg. on NOV 25, 2024@14:51:34 2. 263.9 lbs. / 119.7 kg. on SEP 17, 2024@13:59:41 3. 263.0 lbs. / 119.3 kg. on SEP 16, 2024@13:03:33 4. 270.2 lbs. / 122.6 kg. on AUG 28, 2024@13:35:58 Biochemical Data/Med tests and procedures: LABS: POTASSIUM 3.2 L mEq/L 11/25/2024 18:43 Nutrition Focused Physical Findings: NFPE: no observed signs of muscle or fat loss last BM 11/25 c/o nausea this morning, which he contributes to being NPO NUTRITION DIAGNOSIS: no nutrition diagnosis at present time NUTRITION INTERVENTIONS: DIET RECOMMENDATIONS General healthful diet: rec regular diet after procedure. Updating food preferences. Content related nutrition education: Educated on plan of care, plan to resume diet after procedure. Encouraged adequate intakes during admission. Pt verbalized understanding. NUTRITION MONITORING AND EVALUATION Estimated percent of meals eaten in 24 hours: PO Intakes > 70% of meals. Follow up date: Dec /argelia Andrew RD, LD, [facility] Clinical Dietitian Signed: 11/26/2024 09:36 CHADWICK ANDREW [facility] Nov 26, 2024 08:33 AM NURSING NOTE: LOCAL TITLE: [facility] SKIN INSPECTION/ASSESSMENT STANDARD TITLE: NURSING NOTE DATE OF NOTE: NOV 26, 2024@08:33 ENTRY DATE: NOV 26, 2024@08:33:20 AUTHOR: REG PEREZ EXP COSIGNER: URGENCY: STATUS: COMPLETED Assessment Type: SKIN REINSPECTION/REASSESSMENT SKIN INSPECTION: Skin Color: Usual for ethnicity Skin Temperature: Warm Skin Moisture: Normal Skin Turgor: Elastic (normal/immediate) Tico Skin Assessment: The patient's Tico Scale Score is 20. The patient is considered not at risk for development of pressure ulcers/injuries. Sensory perception -- ability to respond meaningfully to pressure-related discomfort No impairment. Moisture -- degree to which skin is exposed to moisture Rarely moist. Activity -- ability to change and control body position Walks occasionally. Mobility -- ability to change and control body position Slightly limited. Nutrition -- usual food intake patterns Adequate. Friction and shear No apparent problem. INTERVENTIONS: The pressure injury interventions were not needed - patient/resident is not at risk. SKIN INTEGRITY: Intact /loreta/ JOHNNY SANDYN, RN REGISTERED NURSE Signed: 11/26/2024 08:34 NULL,REG N [facility] Nov 26, 2024 08:29 AM NURSING INPATIENT NOTE: LOCAL TITLE: [facility] NURSING FREQUENT DOCUMENTATION STANDARD TITLE: NURSING INPATIENT NOTE DATE OF NOTE: NOV 26, 2024@08:29 ENTRY DATE: NOV 26, 2024@08:29:17 AUTHOR: REG PEREZ EXP COSIGNER: URGENCY: STATUS: COMPLETED Version 2.4 Charting in accordance with [facility] STAND[facility] ([facility]) ACUTE INPATIENT/REHABILITATION NURSING ADMISSION SCREENING, ASSESSMENT, AND STANDARDS OF CARE NATIONAL EARLY WARNING SCORE (NEWS) The following vital measurements were used to complete the NEWS. Measurement DT TEMP PULSE RESP BP POx F(C) (L/MIN)(%) 11/26/2024 08:28 97.7(36.5) 63 16 122/78 94 The NEWS total is 1. 1. Temperature (C/F): Score = 0 36.1 - 38.0 C (96.9 - 100.4 F) 2. Pulse: Score = 0 51-90 3. Respirations: Score = 0 12-20 4. Blood Pressure (Only Systolic BP, mmHg): Score = 0 111-219 5. Pulse Oximetry: Score = 1 94% - 95% 6. Supplemental oxygen in use: Score = 0 No 7. AVPU: Score = 0 Alert Patient Status: Remains on unit /loreta/ JOHNNY SANDYN, RN REGISTERED NURSE Signed: 11/26/2024 08:29 REG PEREZ [facility] Nov 26, 2024 08:29 AM NURSING INPATIENT NOTE: LOCAL TITLE: [facility] ACUTE INPATIENT NSG SHIFT ASSESSMENT STANDARD TITLE: NURSING INPATIENT NOTE DATE OF NOTE: NOV 26, 2024@08:29 ENTRY DATE: NOV 26, 2024@08:30:03 AUTHOR: REG PEREZ COSIGNER: URGENCY: STATUS: COMPLETED Version 2.2 Charting in accordance with [place] APPROVED [place] STANDARD ([facility]ES) ACUTE INPATIENT/REHABILITATION NURSING ADMISSION SCREENING, ASSESSMENT, AND STANDARDS OF CARE ASSESSMENT HANDOFF Bedside report and handoff completed Safety check completed PAIN ASSESSMENT Patient's acceptable pain goal: Are you currently experiencing pain? No: Pain Score: 0 DIAZ FALL SCALE & TIPS PROGRAM Diaz Fall Scale: The Diaz Fall scale was performed and score was 20. This is indicative of low risk of falls. History of falling: immediate or within 3 months? No Secondary diagnosis: No Ambulatory aid: None/bedrest/nurse assist Intravenous therapy/Heparin lock: Yes Gait/Transferring: Normal/bed rest/immobile Mental Status: Oriented to own ability/knows own limitations ENVIRONMENTAL SAFETY MANAGEMENT Implemented safety standards of care: -[place] to unit & environment -Adequate room lighting -Bed in low and locked position -Call light within reach -Personal items within reach -Traffic path in room free of clutter -Non-slip footwear -Upper/half length side rails up for bed mobility -Sensory aids within reach -Encourage patient to utilize sensory support NEUROLOGICAL Neurological Orientation: Oriented x4 Level of Consciousness (AVPU): Alert = Appears aware of and responsive to the environment on their own. Follows commands, opens eyes spontaneously, and tracks objects. Lynn Agitation Sedation Scale (RASS): 0 Alert and calm NEUROMUSCULAR/NEUROVASCULA R EXTREMITIES ASSESSMENT Strength: Director Of Labor Relations Bilateral: Strong Upper Extremity Bilateral: Full strength Lower Extremity Bilateral: Full strength Sensation: Upper Extremity Sensation Bilateral: Intact Lower Extremity Sensation Bilateral: Intact Temperature: Upper Extremity Temperature Bilateral: Warm Lower Extremity Temperature Bilateral: Warm CARDIOVASCULAR Cardiac Rhythm Analysis: Atrial Fibrillation Telemetry Transmitter Pack #: 16 Peripheral Pulses: All 4 extremities, 3+ normal. Edema: None RESPIRATORY Respirations: Unlabored Pattern: Regular Breath Sounds Auscultated: Left Upper Lobe: Clear Right Upper Lobe: Clear Right Middle Lobe: Clear Left Lower Lobe: Clear Right Lower Lobe: Clear GASTROINTESTINAL Last bowel movement: 11/26/2024 Elimination: Continent Palpation: Soft, Guarding Bowel Sounds: RUQ: Active LUQ: Active RLQ: Active LLQ: Active Symptoms: Nausea GENITOURINARY Elimination: Continent ========= INTEGUMENTARY/SKIN/WOUND - (INCLUDING TICO) SEE NOTE: [facility] SKIN INPECTION/ASSESSMENT ========= ACTIVITIES OF DAILY LIVING Hygiene ADLs: Oral Care: Non-ventilator patient: Patient teeth brushed: Independently The was educated that poor oral hygiene increases the risk of hospital acquired pneumonia and dental problems like gingivitis and tooth decay. [place] was educated using their preferred method and verbalized understanding. MOBILITY Mobility Status: Independent: Gait: Steady IV LINES Peripheral IV: Line #1: Assessment: Location: Left, Forearm Gauge: 20 Dressing Condition: Clean, dry, intact Site Condition: No redness, swelling, pain Line Status: /loreta/ KATHARINE SANDY, RN REGISTERED NURSE Signed: 11/26/2024 08:33 REG PEREZ [facility] Nov 26, 2024 05:10 AM NURSING INPATIENT NOTE: LOCAL TITLE: [facility] ACUTE INPATIENT NSG SHIFT ASSESSMENT STANDARD TITLE: NURSING INPATIENT NOTE DATE OF NOTE: NOV 26, 2024@05:10 ENTRY DATE: NOV 26, 2024@07:49:13 AUTHOR: CARLOS GRIFFITH COSIGNER: URGENCY: STATUS: COMPLETED Version 2.2 Charting in accordance with [facility] STAND[facility] ([facility]) ACUTE INPATIENT/REHABILITATION NURSING ADMISSION SCREENING, ASSESSMENT, AND STANDARDS OF CARE REASSESSMENT HANDOFF Bedside report and handoff completed Safety check completed PAIN ASSESSMENT Patient's acceptable pain goal: 0 No pain Are you currently experiencing pain? No: Pain Score: 0 ========= INTEGUMENTARY/SKIN/WOUND - (INCLUDING TICO) SEE NOTE: [facility]ES SKIN INPECTION/ASSESSMENT ========= No change from previous assessment /es/ CARLOS GRIFFITH REGISTERED NURSE Signed: 11/26/2024 07:49 CARLOS GRIFFITH [facility] Nov 26, 2024 02:36 AM CARDIOLOGY NOTE: LOCAL TITLE: CARDIOLOGY TELEMETRY STL STANDARD TITLE: CARDIOLOGY NOTE DATE OF NOTE: NOV 26, 2024@02:36 ENTRY DATE: NOV 26, 2024@02:36:19 AUTHOR: RADHA NELSON EXP COSIGNER: URGENCY: STATUS: COMPLETED Telemetry reviewed: Atrial Fibrillation/ IVCD CLIENT SERVICES ADMINISTRATOR #: 16 RATE: 38-60 bpm SHIFT: 11-7 Shift COMMENT: Pt heart rate drops as low as 38-39 bpm nonsustained and has pauses up to 2.4 secs. RN is notified of occurrences. /loreta/ RADHA NELSON Casing Splitter-EKG Signed: 11/26/2024 02:38 RADHA NELSON [facility] Nov 26, 2024 02:10 AM NURSING INPATIENT NOTE: LOCAL TITLE: [facility] NURSING FREQUENT DOCUMENTATION STANDARD TITLE: NURSING INPATIENT NOTE DATE OF NOTE: NOV 26, 2024@02:10 ENTRY DATE: NOV 26, 2024@02:11:03 AUTHOR: CARLOS GRIFFITH EXP COSIGNER: URGENCY: STATUS: COMPLETED Version 2.4 Charting in accordance with [place] APPROVED [place] [facility] STANDARD ([facility]) ACUTE INPATIENT/REHABILITATION NURSING ADMISSION SCREENING, ASSESSMENT, AND STANDARDS OF CARE PROVIDER NOTIFICATION Provider Name: med1,patient was running Bradycardic, HR 38,puses 2.4 second per telemetry report, patient denies chest pain or SOB notified the provider, no new orders at this time provider stated continue monitor Notification Reason:[id number],puses 2.4 second /loreta/ CARLOS GRIFFITH REGISTERED NURSE Signed: 11/26/2024 03:13 CARLOS GRIFFITH [facility] Nov 25, 2024 11:26 PM NURSING TREATMENT PLAN NOTE: LOCAL TITLE: [place]EL[place] PLAN OF CARE STANDARD TITLE: NURSING TREATMENT PLAN NOTE DATE OF NOTE: NOV 25, 2024@23:26 ENTRY DATE: NOV 25, 2024@23:26:07 AUTHOR: CARLOS GRIFFITH EXP COSIGNER: URGENCY: STATUS: COMPLETED YAKELIN PLAN OF CARE Has ADDENDA Plan of Care and Discharge Plan (nurse) TREATMENT PLAN Is the patient a fall risk? Yes. NURSING DIAGNOSIS: Falls Potential/Actual Injury Goals: Prior to discharge, patient will:--Injury due to fall will be minimized during hospital stay, --Verbalize safety measures to lower risk of fall/injury (lock w/c, use hand rails, ask for assistance) Nov, --Identify factor(s) that may increase risk of fall before discharge, --Maintain or preserve physical mobility during hospital stay Interventions: * Score 45 --Encourage pt to ask for assistance (MD ALBA), --Ambulate with walker (if ordered), --Ambulate with assistance, --Keep night light and bathroom light on at night, --Keep wheelchair in locked position, --Check for elimination needs every 2 hours, --[place] to unit and surroundings (bathroom, call light, etc), --Provide non slip footwear when ambulating (NSG), --Place bed in low position or use low bed Care plan status: Continued Progress toward goals documented continuously through progress notes Patient Education(Nursing,SWS,PT/O T,Line Assembler Aircraft,Passenger Service Agent,&Phys ician) Instruct as to: /loreta/ CARLOS GRIFFITH REGISTERED NURSE Signed: 11/25/2024 23:27 11/28/2024 ADDENDUM STATUS: COMPLETED Plan of Care and Discharge Plan (nurse) TREATMENT PLAN Is the patient a fall risk? Yes. NURSING DIAGNOSIS: Falls Potential/Actual Injury Goals: Prior to discharge, patient will:--Injury due to fall will be minimized during hospital stay, --Verbalize safety measures to lower risk of fall/injury (lock w/c, use hand rails, ask for assistance) Nov, --Identify factor(s) that may increase risk of fall before discharge, --Maintain or preserve physical mobility during hospital stay Interventions: * Score 45 --Encourage pt to ask for assistance (MD ALBA), --Ambulate with walker (if ordered), --Ambulate with assistance, --Keep night light and bathroom light on at night, --Keep wheelchair in locked position, --Check for elimination needs every 2 hours, --[place] to unit and surroundings (bathroom, call light, etc), --Provide non slip footwear when ambulating (NSG), --Place bed in low position or use low bed Care plan status: Continued /es/ Terra Moncada RN REGISTERED NURSE Signed: 11/28/2024 02:21 CARLOS GRIFFITH [facility] Nov 25, 2024 11:23 PM NURSING INPATIENT NOTE: LOCAL TITLE: [facility] ACUTE INPATIENT NSG SHIFT ASSESSMENT STANDARD TITLE: NURSING INPATIENT NOTE DATE OF NOTE: NOV 25, 2024@23:23 ENTRY DATE: NOV 25, 2024@23:23:11 AUTHOR: CARLOS GRIFFITH EXP COSIGNER: URGENCY: STATUS: COMPLETED Version 2.2 Charting in accordance with [place] APPROVED [place] STANDARD (WAAES) ACUTE INPATIENT/REHABILITATION NURSING ADMISSION SCREENING, ASSESSMENT, AND STANDARDS OF CARE ASSESSMENT HANDOFF Bedside report and handoff completed Safety check completed PAIN ASSESSMENT Patient's acceptable pain goal: 0 No pain Are you currently experiencing pain? No: Pain Score: 0 DIAZ FALL SCALE & TIPS PROGRAM Diaz Fall Scale: The Diaz Fall scale was performed and score was 15. This is indicative of low risk of falls. History of falling: immediate or within 3 months? No Secondary diagnosis: Yes Ambulatory aid: None/bedrest/nurse assist Intravenous therapy/Heparin lock: No Gait/Transferring: Normal/bed rest/immobile Mental Status: Oriented to own ability/knows own limitations ENVIRONMENTAL SAFETY MANAGEMENT Implemented safety standards of care: -[place] to unit & environment -Adequate room lighting -Bed in low and locked position -Call light within reach -Personal items within reach -Traffic path in room free of clutter -Non-slip footwear -Upper/half length side rails up for bed mobility -Sensory aids within reach -Encourage patient to utilize sensory support NEUROLOGICAL Neurological Orientation: Oriented x4 Level of Consciousness (AVPU): Alert = Appears aware of and responsive to the environment on their own. Follows commands, opens eyes spontaneously, and tracks objects. RESPIRATORY Respirations: Unlabored GASTROINTESTINAL Elimination: Continent GENITOURINARY Elimination: Continent ========= INTEGUMENTARY/SKIN/WOUND - (INCLUDING TICO) SEE NOTE: VAAES SKIN INPECTION/ASSESSMENT ========= ACTIVITIES OF DAILY LIVING Hygiene ADLs: Oral Care: Non-ventilator patient: Patient teeth brushed: Independently Pericare: Independent MOBILITY Mobility Status: Independent: Able to stand and step without staff assistance IV LINES Peripheral IV: Line #1: Assessment: Location: Left, Forearm Gauge: 20 Dressing Condition: Clean, dry, intact Transparent dressing Site Condition: No redness, swelling, pain Line Status: PSYCHOSOCIAL Type of Emotional Support Provided: 1:1 discussion, Treatment discussion ADULT EDUCATION Updates to barriers to learning: None evident /es/ CARLOS GRIFFITH REGISTERED NURSE Signed: 11/25/2024 23:25 CARLOS GRIFFITH [facility] Nov 25, 2024 11:21 PM NURSING NOTE: LOCAL TITLE: [facility] SKIN INSPECTION/ASSESSMENT STANDARD TITLE: NURSING NOTE DATE OF NOTE: NOV 25, 2024@23:21 ENTRY DATE: NOV 25, 2024@23:22:06 AUTHOR: CARLOS GRIFFITH EXP COSIGNER: URGENCY: STATUS: COMPLETED Assessment Type: SKIN REINSPECTION/REASSESSMENT SKIN INSPECTION: Skin Color: Usual for ethnicity Skin Temperature: Warm Skin Moisture: Normal Skin Turgor: Elastic (normal/immediate) Tico Skin Assessment: The patient's Tico Scale Score is 23. The patient is considered not at risk for development of pressure ulcers/injuries. Sensory perception -- ability to respond meaningfully to pressure-related discomfort No impairment. Moisture -- degree to which skin is exposed to moisture Rarely moist. Activity -- ability to change and control body position Walks frequently. Mobility -- ability to change and control body position No limitation. Nutrition -- usual food intake patterns Excellent. Friction and shear No apparent problem. INTERVENTIONS: The pressure injury interventions were not needed - patient/resident is not at risk. RISK FACTORS THAT INCREASE RISK FOR DEVELOPING PRESSURE INJURIES The patient/resident does not have any additional risk factors. SKIN INTEGRITY: Intact /loreta/ CARLOS GRIFFITH REGISTERED NURSE Signed: 11/25/2024 23:23 CARLOS GRIFFITH [facility] Nov 25, 2024 10:13 PM NURSING INPATIENT NOTE: LOCAL TITLE: [facility] NURSING FREQUENT DOCUMENTATION STANDARD TITLE: NURSING INPATIENT NOTE DATE OF NOTE: NOV 25, 2024@22:13 ENTRY DATE: NOV 25, 2024@22:13:14 AUTHOR: CARLOS GRIFFITH EXP COSIGNER: URGENCY: STATUS: COMPLETED Version 2.4 Charting in accordance with [facility] [place] STANDARD ([facility]) ACUTE INPATIENT/REHABILITATION NURSING ADMISSION SCREENING, ASSESSMENT, AND STANDARDS OF CARE NATIONAL EARLY WARNING SCORE (NEWS) The following vital measurements were used to complete the NEWS. Measurement DT TEMP PULSE RESP BP POx F(C) (L/MIN)(%) 11/25/2024 20:57 97.5(36.4) 57 20 143/81 96 The NEWS total is 0. 1. Temperature (C/F): Score = 0 36.1 - 38.0 C (96.9 - 100.4 F) 2. Pulse: Score = 0 51-90 3. Respirations: Score = 0 12-20 4. Blood Pressure (Only Systolic BP, mmHg): Score = 0 111-219 5. Pulse Oximetry: Score = 0 96% or greater 6. Supplemental oxygen in use: Score = 0 No 7. AVPU: Score = 0 Alert Patient Status: Remains on unit /loreta/ CARLOS GRIFFITH REGISTERED NURSE Signed: 11/25/2024 22:14 CARLOS GRIFFITH [facility] Nov 25, 2024 09:16 PM CARDIOLOGY NOTE: LOCAL TITLE: CARDIOLOGY TELEMETRY STL STANDARD TITLE: CARDIOLOGY NOTE DATE OF NOTE: NOV 25, 2024@21:16 ENTRY DATE: NOV 25, 2024@21:16:23 AUTHOR: PANDA ROWE EXP COSIGNER: URGENCY: STATUS: COMPLETED Telemetry reviewed: Atrial Flutter, Other IVCD,pvc's CLIENT SERVICES ADMINISTRATOR #: [id number] RATE: 50's-60's SHIFT: 3-11 Shift COMMENT: Patient's cardiac telemetry rhythm strips were placed in their chart at the nurses station /loreta/ PANDA ROWE Casing Splitter EKG Signed: 11/25/2024 21:26 PANDA ROWE [facility] Nov 25, 2024 08:04 PM INTERNAL MEDICINE H & P NOTE: LOCAL TITLE: MEDICINE HISTORY AND PHYSICAL STL STANDARD TITLE: INTERNAL MEDICINE H & P NOTE DATE OF NOTE: NOV 25, 2024@20:04 ENTRY DATE: NOV 25, 2024@20:05:02 AUTHOR: LIDIA SWANSON EXP COSIGNER: ZAKIYA FISHER URGENCY: STATUS: COMPLETED MEDICINE HISTORY AND PHYSICAL STL Has ADDENDA CC: Tikosyn load HPI: 69 year old male with scheduled admit for tikosyn loading. Patient with history of chronic atrial fibrillation. Patient states to have taken his eliquis this morning but when asked if he has taken it for the last 30 days, he states he tried to but is pretty sure but that he takes his meds very well, as sure as he cn be that he did not miss a dose and cannot think of an instance of a dose missed. Past Medical, Surgical and Psychiatric History: Problem List: 1) History of colonic polyp [...] accident 18) PAF - Paroxysmal atrial fibrillation Medications: Active Outpatient Medications (excluding Supplies): Issue Date Status Last Fill Active Outpatient Medications Refills Expiration 1) ALBUTEROL 90MCG (CFC-F) 200D ORAL INHL [...] TABLET BY MOUTH TWICE A DAY Refills: 10 Last : 11/09/24 Indication: FOR ANTICOAGULATION Expr : 08/11/25 3) METHOCARBAMOL 500MG TAB Qty: 90 for 30 days ACTIVE Issue: 04/08/24 Sig: TAKE 1 TABLET BY MOUTH THREE TIMES A Refills: 0 Last : 07/24/24 DAY NEEDED Expr : 04/09/25 Indication: FOR MUSCLE SPASM Start Date Active Non-VA Medications Status Stop Date 1) Non-VA ASPIRIN 81MG EC TAB SiMG BY ACTIVE MOUTH ONCE A DAY 2) Non-VA LISINOPRIL 40MG TAB SiMG BY ACTIVE MOUTH ONCE A DAY 3) Non-VA METOPROLOL SUCCINATE 50MG SA TAB Sig: ACTIVE 25MG BY MOUTH ONCE A DAY 4) Non-VA ROSUVASTATIN CA 40MG TAB SiMG BY ACTIVE MOUTH EVERY EVENING 5) Non-VA [id number]/VILANTERO L25MCG 30D ACTIVE INH Si PUFF ORAL INHALATION ONCE A DAY 8 Total Medications Patient declares that he is taking Plavix since his CVA Life Sustaining Treatment Orders Medications were reviewed with the patient/caregiver and discrepancies resolved. Allergies: CHANTIX Social History: Lives at home, retired, , no travel or pets. Denies tobacco adn alcohol, endorses marijuana gummies Family History: Review of Systems: Review of systems reviewed in detail and negative except as noted in HPI and below. Constitutional: denies HEENT: denies CV: edema Pulm: cough, dyspnea GI: constipation : denies Neuro: denies Psych: denies Physical Exam: Vitals: (most recent, as listed in the electronic record): B/P: 141/72 (11/25/2024 19:29) Pulse: 53 (11/25/2024 19:29) Temperature: 97.8 F [36.6 C] (11/25/2024 19:29) Weight: 259.5 lb [117.71 kg] (11/25/2024 14:51) Height: 75 in [190.5 cm] (08/28/2024 13:35) BMI: 32.5 Pain: 0 (11/25/2024 19:29) (0-10 scale) General: NAD, well appearing, alert, interactive HEENT: MMM Lungs: Some wheezing, normal respiratory effort Cardiovascular: RRR no m/r/g Abdominal: soft/NT/ND Extremities: well perfused, warm aand dry Neuro: A&Ox3, CN2-12 intact, sensation normal bilaterally along with muscle strength Psych: euthymic Labs: CBC: WBC 8.8 10*3/uL 11/25/2024 19:05 RBC 4.00 L 10*6/uL 11/25/2024 19:05 HGB 12.9 L g/dL 11/25/2024 19:05 HCT 40.2 % 11/25/2024 19:05 MCV 100.5 H fL 11/25/2024 19:05 MCH 32.3 pg 11/25/2024 19:05 MCHC 32.1 L g/dL 11/25/2024 19:05 RDW 14.1 % 11/25/2024 19:05 PLT 209 10*3/uL 11/25/2024 19:05 MPV 10.7 fL 11/25/2024 19:05 NEUTROPHILS, AUTO % 65 % 11/25/2024 19:05 LYMPHOCYTES, AUTO % 21 % 11/25/2024 19:05 MONOCYTES, AUTO % 10 % 11/25/2024 19:05 EOSINOPHILS, AUTO % 3 % 11/25/2024 19:05 BASOPHILS, AUTO % 1 % 11/25/2024 19:05 NEUTROPHILS, ABSOLUTE 5.72 10*3/uL 11/25/2024 19:05 LYMPHOCYTES, ABSOLUTE 1.86 10*3/uL 11/25/2024 19:05 MONOCYTES, ABSOLUTE 0.92 H 10*3/uL 11/25/2024 19:05 EOSINOPHILS, ABSOLUTE 0.22 10*3/uL 11/25/2024 19:05 BASOPHILS, ABSOLUTE 0.08 10*3/uL 11/25/2024 19:05 CMP: SODIUM 139 mEq/L 11/25/2024 18:43 POTASSIUM 3.2 L mEq/L 11/25/2024 18:43 CHLORIDE 105 mEq/L 11/25/2024 18:43 UREA NITROGEN 15.7 mg/dL 11/25/2024 18:43 CREATININE 1.27 mg/dL 11/25/2024 18:43 CALCIUM 8.7 mg/dL 11/25/2024 18:43 PROTEIN 6.6 g/dL 11/25/2024 18:43 ALBUMIN 3.4 g/dL 11/25/2024 18:43 ALKALINE PHOSPHATASE 99 U/L 11/25/2024 18:43 ALT/SGPT 7 L U/L 11/25/2024 18:43 AST/SGOT 9 U/L 11/25/2024 18:43 TOTAL BILIRUBIN 0.4 mg/dL 11/25/2024 18:43 CARBON DIOXIDE 26 mEq/L 11/25/2024 18:43 GLUCOSE 142 H mg/dL 11/25/2024 18:43 EGFR (CKD-EPI 2020) 61.9 11/25/2024 18:43 TROPONIN: No TROPONIN EO data found U/A: URINE COLOR Light-Yellow 05/20/2024 14:14 APPEARANCE Clear 05/20/2024 14:14 U.PH 7.0 05/20/2024 14:14 U.BILIRUBIN Negative mg/dL 05/20/2024 14:14 U.NITRITE Negative mg/dL 05/20/2024 14:14 PT/INR: ____ PTT: ____ Imaging: Impression for CHEST X-RAY, 2 VIEWS, 08/07/24, case [id number] No active lung disease. RR Assessment/Plan: #Tikosyn load #Persistent atrial fibrillation -Per chart: Expected duration of admission (observation -- less than 48 hours -- vs > 48 hours): >48 Requested Level of care (Floor vs Stepdown vs ICU): TELEMETRY FLOOR Recommendations to the Admitting Team: Services to Consult: CARDIOLOGY Timing of Consult (upon arrival vs next morning): UPON ADMISSION Anticipated med changes i.e. meds to start, hold, or modify based on the procedure including but not limited to anti-platelets, anti-coagulation, etc: VET HAS BEEN COMPLIANT OF THIS WRITING WITH BLOOD THINNERS- IF ANY REASON SEEN THAT A SWATI WOULD NEED TO BE DONE PRIOR TO STARTING DRUG, PLEASE ORDER AND KEEP PT NPO Labs/Imaging needed pre or post procedure: NEEDS EKG 2 HOURS POST DRUG DOSE (1ST 5 DOSES OF SAME DOSE) NPO status/timing: SaturdayNOVEMBER 25 AFTER 2358 -- IF SWATI IS NEEDED SaturdayNOVEMBER 26 AFTER 2358 -- IF REMAINS IN AFIB AND NEEDS DCCV Post-procedure counseling e.g. any restrictions to diet, activity, resuming anticoagulation: CONTINUE AC WITHOUT INTERRUPTION CaLL Mary Anne (Dr CLOUD'S nurse for a new order if refills run out) CANNOT MISS >2 doses. Otherwise quit taking and will need to be readmitted. Call me if doses have been missed, runnng low, etc Mary Anne [phone] Ext [phone] PLEASE ORDER MAXIMUM ALLOWABLE AMOUNT (90 DAY SUPPLY WITH 3 REFILLS) UPON DISCHARGE Post-procedure monitoring: EKG's 2 hours post dose Post-procedure monitoring: EKG'S ~2HRS POST DRUG DOSE SEND VET HOME WITH A 90 SUPPLY OF DRUG AND REFILLS will need f/u with card and EP post drug load -Apixaban 5 mg PO BID -continue metoprolol succ 25 mg PO -NPO at midnight -TTE 11/26 -CBC -CMP to RFP -Mg -Consulted cardiology #History of CVA -Continue Plavix 75 mg PO daily -ASA 81 mg daily #Muscle spasm -Methocarbamol 500 mg PO TID PRN #HTN #HLD -Continue lisinopril 20 mg PO -Continue crestor 20 mg PO #COPD #lung cancer s/p resection -Albuterol QID Is the patient 65 or older? Yes Is the patient displaying signs of delirium? No Does the patient have a change in their mental status? No Is the patient displaying signs of confusion? No Is the patient displaying signs of disorientation? No This patient was screened for delirium. His/Her current risk level for delirium is : low The material part of the above assessment and plans was discussed with the patient and/or his/her family members who agreed and had no further questions. Total time spent: 40 Minutes /loreta/ LIDIA SWANSON MEDICINE RESIDENT Signed: 11/25/2024 20:31 /loreta/ ZAKIYA FISHER MD Attending Physician - Internal Medicine Cosigned: 11/26/2024 15:36 11/26/2024 ADDENDUM STATUS: COMPLETED I have seen and evaluated the patient with the resident on 11/26/2024. I have independently reviewed chart documentation, lab results, imaging studies and directly supervised medical decision making with the team. I have reviewed and agree with the note above unless otherwise documented below. History as summarized above. Patient reports he has not taken aspirin or plavix since being started on apixaban. 12-system ROS completed and negative unless otherwise stated in HPI Family history reviewed and non-contributory Agree with exam above A/P as described above. For documentation purposes, problem list includes: - chronic CVA (2016) - retinal artery embolism - CKD stage 2 - lung cancer - NSCLC, [place] s/p RML resection - COPD - prior tobacco use /loreta/ ZAKIAY FISHER MD Attending Physician - Internal Medicine Signed: 11/26/2024 15:40 LIDIA SWANSON [facility] Nov 25, 2024 07:33 PM NURSING INPATIENT NOTE: LOCAL TITLE: [facility] NURSING FREQUENT DOCUMENTATION STANDARD TITLE: NURSING INPATIENT NOTE DATE OF NOTE: NOV 25, 2024@19:33 ENTRY DATE: NOV 25, 2024@19:34 AUTHOR: EMMA GRANADOS COSIGNER: URGENCY: STATUS: COMPLETED Version 2.4 Charting in accordance with [place] APPROVED [place] STANDARD (WAAES) ACUTE INPATIENT/REHABILITATION NURSING ADMISSION SCREENING, ASSESSMENT, AND STANDARDS OF CARE NATIONAL EARLY WARNING SCORE (NEWS) The following vital measurements were used to complete the NEWS. Measurement DT TEMP PULSE RESP BP POx F(C) (L/MIN)(%) 11/25/2024 19:29 97.8(36.6) 53 20 141/72 96 11/25/2024 14:50 97.4(36.3) 64 16 104/70 95 09/17/2024 13:59 97.5(36.4) 81 20 118/75 95 09/16/2024 13:03 98(36.7) 74 18 128/78 95 08/28/2024 13:36 87 129/89 08/28/2024 13:35 98.1(36.7) 93 22 146/99 95 08/07/2024 13:02 134/78 08/07/2024 13:02 97.6(36.4) 70 20 142/81 93 05/20/2024 13:02 136/86 05/20/2024 13:02 98.1(36.7) 64 20 148/89 98 04/08/2024 14:39 98.1(36.7) 62 20 137/83 94 12/19/2023 14:51 98.3(36.8) 77 20 129/76 95 10/10/2023 13:43 97.7(36.5) 62 16 102/68 93 09/18/2023 13:57 98.1(36.7) 63 20 134/84 94 08/30/2023 14:51 98.2(36.8) 67 16 135/92 94 02/15/2023 10:59 97.8(36.6) 67 22 128/85 95 02/08/2023 13:47 97.8(36.6) 73 22 113/70 95 08/17/2022 11:29 132/80 08/17/2022 11:29 97.9(36.6) 70 16 145/79 97 08/10/2022 12:05 98(36.7) 80 20 113/76 95 03/16/2022 13:15 97.9(36.6) 89 18 106/70 97 03/14/2022 10:53 80 16 127/75 97 02/19/2022 11:29 98.2(36.8) 78 18 123/75 96 09/08/2021 13:05 94 18 133/82 98 08/24/2021 11:45 134/84 08/24/2021 11:23 150/98 08/24/2021 11:15 97.5(36.4) 80 16 158/85 95 04/05/2021 14:12 124/66 04/05/2021 14:12 98(36.7) 67 20 158/91 98 12/16/2020 09:39 162/88 12/16/2020 09:39 78 22 156/96 96 12/07/2020 10:02 78 22 136/81 95 11/28/2020 10:00 98.2(36.8) 71 20 120/80 94 10/11/2020 10:32 97.7(36.5) 80 24 126/86 95 06/11/2019 11:36 136/80 06/11/2019 11:28 96.7(35.9) 80 18 125/91 97 03/09/2019 13:01 97.9(36.6) 80 20 129/89 03/09/2019 12:59 95 The NEWS total is 0. 1. Temperature (C/F): Score = 0 36.1 - 38.0 C (96.9 - 100.4 F) 2. Pulse: Score = 0 51-90 3. Respirations: Score = 0 12-20 4. Blood Pressure (Only Systolic BP, mmHg): Score = 0 111-219 5. Pulse Oximetry: Score = 0 96% or greater 6. Supplemental oxygen in use: Score = 0 No 7. AVPU: Score = 0 Alert Patient Status: Remains on unit /loreta/ EMMA ALCANTAR RN REGISTERED NURSE Signed: 11/25/2024 19:35 EMMA GRANADOS [facility] Nov 25, 2024 07:12 PM NURSING INPATIENT NOTE: LOCAL TITLE: [facility] ACUTE INPATIENT NSG SHIFT ASSESSMENT STANDARD TITLE: NURSING INPATIENT NOTE DATE OF NOTE: NOV 25, 2024@19:12 ENTRY DATE: NOV 25, 2024@19:13:22 AUTHOR: EMMA GRANADOS EXP COSIGNER: URGENCY: STATUS: COMPLETED Version 2.2 Charting in accordance with [place] APPROVED [place] STANDARD ([facility]) ACUTE INPATIENT/REHABILITATION NURSING ADMISSION SCREENING, ASSESSMENT, AND STANDARDS OF CARE ASSESSMENT HANDOFF Bedside report and handoff completed Safety check completed PAIN ASSESSMENT Patient's acceptable pain goal: 0 No pain Are you currently experiencing pain? No: Pain Score: 0 DIAZ FALL SCALE & TIPS PROGRAM Diaz Fall Scale: The Diaz Fall scale was performed and score was 35. This is indicative of moderate risk for falls. History of falling: immediate or within 3 months? No Secondary diagnosis: Yes Ambulatory aid: None/bedrest/nurse assist Intravenous therapy/Heparin lock: Yes Gait/Transferring: Normal/bed rest/immobile Mental Status: Oriented to own ability/knows own limitations Fall Tailoring Interventions for Patient Safety (TIPS) Fall TIPS initiated with patient: Yes Interventions: Communicate recent fall or risk of harm Fall TIPS reviewed with patient: Yes Interventions: Communicate recent fall or risk of harm ENVIRONMENTAL SAFETY MANAGEMENT Implemented safety standards of care: -[place] to unit & environment -Adequate room lighting -Bed in low and locked position -Call light within reach -Personal items within reach -Traffic path in room free of clutter -Non-slip footwear -Upper/half length side rails up for bed mobility -Sensory aids within reach -Encourage patient to utilize sensory support NEUROLOGICAL Neurological Orientation: Oriented x4 Level of Consciousness (AVPU): Alert = Appears aware of and responsive to the environment on their own. Follows commands, opens eyes spontaneously, and tracks objects. Affect/behavior: Cooperative Calm NEUROMUSCULAR/NEUROVASCULA R EXTREMITIES ASSESSMENT Strength: Director Of Labor Relations Bilateral: Strong Upper Extremity Bilateral: Full strength Lower Extremity Bilateral: Full strength Sensation: Upper Extremity Sensation Bilateral: Intact Lower Extremity Sensation Bilateral: Intact Temperature: Upper Extremity Temperature Bilateral: Warm Lower Extremity Temperature Bilateral: Warm CARDIOVASCULAR Heart Sounds: Normal (S1S2) Heart Rate/Rhythm (without teletypesetter monitor): Regular Cardiac Rhythm Analysis: Normal Sinus Rhythm Capillary Refill: All 4 extremities, less than or equal to 3 seconds. Peripheral Pulses: All 4 extremities, 3+ normal. Edema: None RESPIRATORY Respirations: Unlabored Pattern: Regular Breath Sounds Auscultated: Anterior and posterior Left Upper Lobe: Clear Right Upper Lobe: Clear Right Middle Lobe: Clear Left Lower Lobe: Clear Right Lower Lobe: Clear GASTROINTESTINAL Last bowel movement: 11/25/2024 Passing flatus Elimination: Continent Abdominal Description: Rounded Palpation: Soft, Non-tender Bowel Sounds: RUQ: Active LUQ: Active RLQ: Active LLQ: Active GENITOURINARY Elimination: Continent ========= INTEGUMENTARY/SKIN/WOUND - (INCLUDING TICO) SEE NOTE: VAAES SKIN INPECTION/ASSESSMENT ========= MOBILITY Mobility Status: Independent: Able to stand and step without staff assistance Gait: Steady IV LINES Peripheral IV: Present on admission: No Line #1: Assessment: Location: Right, Forearm Gauge: 20 Dressing Condition: Clean, dry, intact Site Condition: No redness, swelling, pain Line Status: Patent/infusing PSYCHOSOCIAL Type of Emotional Support Provided: 1:1 discussion, Anticipated outcomes, Ventilation of feelings encouraged /loreta/ EMMA ALCANTAR RN REGISTERED NURSE Signed: 11/25/2024 19:25 EMMA GRANADOS [facility] Nov 25, 2024 06:49 PM NURSING ADMISSION EVALUATION NOTE: LOCAL TITLE: [facility] ACUTE INPATIENT NSG ADMISSION SCREEN STANDARD TITLE: NURSING ADMISSION EVALUATION NOTE DATE OF NOTE: NOV 25, 2024@18:49 ENTRY DATE: NOV 25, 2024@18:50:10 AUTHOR: EMMA GRANADOS EXP COSIGNER: URGENCY: STATUS: COMPLETED ========= ALLERGY/ADVERSE DRUG REACTION (ADR) REVIEW (MRT5) ========= FACILITY ALLERGY/ADR -------- [facility] NO KNOWN ALLERGIES [facility] CHANTIX Allergy/Adverse Drug Reaction Review to be conducted by: Nurse: Results of Allergy/ADR Review: Allergy/Adverse Drug Reaction list confirmed. ======== MEDICATION REVIEW (MRR1) ======== Did patient bring medication(s) from home? Yes: Home medication disposition: Vet brought a white weekly pillbox with various pills that wasn't sure what some of the pills were in the container Medication Review conducted by Nurse Results of Medication Review: Active Medication List: INCLUDED IN THIS LIST: Alphabetical list of active outpatient prescriptions dispensed from this [place] (local) and dispensed from another [facility] or [facility] facility (remote) as well as inpatient orders (local pending and active), local clinic medications, locally documented non-VA medications, and local prescriptions that have or been discontinued in the past 90 days. Non-VA Meds Last Documented On: Jun 15, 2024 NOTE The display of VA prescriptions dispensed from another VA or [facility]D facility (remote) is limited to active outpatient prescription entries matched to National Drug File at the originating site and may not include some items such as investigational drugs, compounds, etc. NOT INCLUDED IN THIS LIST: Medications self-entered by the patient into personal health records (i.e. [employer]) are NOT included in this list. Non-VA medications documented outside this [place], remote inpatient orders (regardless of status) and remote clinic medications are NOT included in this list. The patient and provider must always discuss medications the patient is taking, regardless of where the medication was dispensed or obtained. INPT ALBUTEROL 90G (CFC-F) 200D ORAL INHL (Status=Active) 2 PUFFS INHALATION ORAL FOUR TIMES A DAY Indication: FOR COPD BCMA ORDER LAST ACTION: 11/25/24 17:53 GIVEN OUTPT ALBUTEROL 90MCG (CFC-F) 200D ORAL INHL (Status = Active) INHALE 2 PUFFS ORAL INHALATION FOUR TIMES A DAY SHAKE WELL. RINSE MOUTHPIECE FREQUENTLY TO PREVENT CLOGGING. Rx# [id number] Last Released: 07/11/24 Qty/Days Supply: Rx Expiration Date: 04/09/25 Refills Remainin Indication: FOR COPD INPT APIXABAN 5MG TAB (Status=Active) 5MG BY MOUTH TWICE A DAY Indication: FOR ANTICOAGULATION OUTPT APIXABAN 5MG TAB (Status = Active) TAKE ONE TABLET BY MOUTH TWICE A DAY FOR ANTICOAGULATION Rx# [id number] Last Released: 11/09/24 Qty/Days Supply: 6030 Rx Expiration Date: 08/11/25 Refills Remainin Indication: FOR ANTICOAGULATION INPT ASPIRIN 81MG CHEW TAB (Status=Active) 81MG BY MOUTH QDAILY Indication: FOR CARDIOVASCULAR DISEASE Non-VA ASPIRIN 81MG EC TAB TAKE ONE TABLET BY MOUTH ONCE A DAY VA RX: Patient wants to buy from Non-VA pharmacy OUTPT BUMETANIDE 1MG TAB (Status = Discontinued) TAKE ONE-HALF TABLET BY MOUTH EVERY MORNING FOR FLUID RETENTION (EDEMA) Rx# [id number] Last Released: 08/28/24 Qty/Days Supply: 09/07 Rx Expiration Date: 09/27/24 Refills Remainin Indication: FOR FLUID RETENTION (EDEMA) OUTPT BUMETANIDE 1MG TAB (Status = ) TAKE ONE-HALF TABLET BY MOUTH EVERY MORNING FOR FLUID RETENTION (EDEMA) Rx# [id number] Last Released: 09/03/24 Qty/Days Supply: 09/07 Rx Expiration Date: 10/02/24 Refills Remainin Indication: FOR FLUID RETENTION (EDEMA) OUTPT BUPROPION HCL 150MG 12HR SA TAB (Status = ) TAKE ONE TABLET BY MOUTH TWICE A DAY FOR SMOKING CESSATION. SWALLOW WHOLE - DO NOT CRUSH OR CHEW. Rx# [id number] Last Released: 05/07/24 Qty/Days Supply: 180/90 Rx Expiration Date: 09/10/24 Refills Remainin Indication: SMOKING CESSATION Non-VA LISINOPRIL 40MG TAB TAKE ONE-HALF TABLET BY MOUTH ONCE A DAY Non-[place] medication recommended by [place] provider. Patient wants to buy from Non-[place] pharmacy. INPT LISINOPRIL 20MG TAB (Status=Active) 20MG BY MOUTH QDAILY Indication: FOR HIGH BLOOD PRESSURE OUTPT METHOCARBAMOL 500MG TAB (Status = Active) TAKE 1 TABLET BY MOUTH THREE TIMES A DAY NEEDED FOR MUSCLE SPASM Rx# [id number] Last Released: 07/23/24 Qty/Days Supply: Rx Expiration Date: 04/09/25 Refills Remainin Indication: FOR MUSCLE SPASM INPT METHOCARBAMOL 500MG TAB (Status=Active) 500MG BY MOUTH THREE TIMES A DAY NEEDED FOR MUSCLE SPASM Indication: FOR MUSCLE SPASM INPT METOPROLOL SUCCINATE 25MG SA TAB (Status=Active) 25MG BY MOUTH QDAILY Indication: ATRIAL FIBRILLATION Non-VA METOPROLOL SUCCINATE 50MG SA TAB TAKE ONE-HALF TABLET BY MOUTH ONCE A DAY [facility] RX: Patient wants to buy from Non-[place] pharmacy OUTPT POTASSIUM CL 20MEQ SA TAB (DISPERSIBLE) (Status = ) TAKE TWO TABLETS BY MOUTH ONCE A DAY FOR POTASSIUM SUPPLEMENTATION TAKE WITH FOOD Rx# [id number] Last Released: 08/28/24 Qty/Days Supply: 14/12 Rx Expiration Date: 09/27/24 Refills Remainin Indication: FOR POTASSIUM SUPPLEMENTATION OUTPT PREDNISONE 10MG TAB (Status = Discontinued) TAKE FIVE TABLETS BY MOUTH EVERY MORNING FOR 6 DAYS, THEN TAKE FOUR TABLETS EVERY MORNING FOR 6 DAYS, THEN TAKE THREE TABLETS EVERY MORNING FOR 6 DAYS, THEN TAKE TWO TABLETS EVERY MORNING FOR 6 DAYS, THEN TAKE ONE TABLET EVERY MORNING FOR 6 DAYS, THEN TAKE ONE-HALF TABLET EVERY MORNING FOR 6 DAYS TAKE WITH FOOD OR MILK. Rx# [id number] Last Released: 08/07/24 Qty/Days Supply: Rx Expiration Date: 09/12/24 Refills Remainin Indication: COPD OUTPT PREDNISONE 10MG TAB (Status = ) TAKE TWO TABLETS BY MOUTH EVERY MORNING FOR 2 DAYS, THEN TAKE ONE TABLET EVERY MORNING FOR 6 DAYS, THEN TAKE ONE-HALF TABLET EVERY MORNING FOR 6 DAYS FOR COPD EXACERBATION TAKE WITH FOOD OR MILK. Rx# [id number] Last Released: 08/28/24 Qty/Days Supply: Rx Expiration Date: 09/27/24 Refills Remainin Indication: FOR COPD EXACERBATION Non-VA ROSUVASTATIN CA 40MG TAB TAKE ONE-HALF TABLET BY MOUTH EVERY EVENING Patient wants to buy from [place] pharmacy. Medication prescribed by [place] provider. INPT ROSUVASTATIN CA 20MG TAB (Status=Active) 20MG BY MOUTH EVERY EVENING Indication: FOR HIGH CHOLESTEROL BCMA ORDER LAST ACTION: 11/25/24 17:52 GIVEN Non-VA [id number]/VILANTERO L25MCG 30D INH INHALE 1 PUFF ORAL INHALATION ONCE A DAY Patient wants to buy from Non-[place] pharmacy. Medication prescribed by Non-VA provider. SUPPLIES OUTPT TABLET CUTTER (Status = Active) USE TABLET CUTTER NEEDED FOR TABLET CUTTING Rx# [id number] Last Released: 09/03/24 Qty/Days Supply: Rx Expiration Date: 12/02/24 Refills Remainin Indication: FOR TABLET CUTTING MEDICATION REVIEW 2. Patient/Family/Caregiver report UNSURE IF TAKING these medications: Vet unsure what pills look like, mostly know meds. ======== GENERAL INFORMATION ======== Admission information given by: Patient Is there a legal guardian/conservator? No Preferred language for discussing healthcare: Luxembourgish Preferred mode of communication: Verbal Written Items at Bedside: Dentures: uppers ========= INFECTIOUS DISEASE RISK SCREEN ========= Travel Screen: Have you traveled within the [facility] within the last 21 days? No Have you traveled outside the [place] within the last 21 days? No Within the last 14 days, have you had: No known exposure Other Exposure to Infectious Disease: No known exposure Patient reported the following symptoms: No Symptoms Present History of Multiple Drug Resistant Organism (MDRO): No ========= NUTRITION SCREENING ========= Malnutrition Screening Weight (Previous 6 months): Measurement DT WEIGHT LB(KG)[BMI] 11/25/2024 14:51 259.5(117.71)[33*] 09/17/2024 13:59 263.9(119.70)[33*] 09/16/2024 13:03 263(119.29)[33*] 08/28/2024 13:35 270.2(122.56)[34*] 08/07/2024 13:02 264.2(119.84)[33*] Lost weight recently without trying: No (0 points) Have you been eating poorly because of decreased appetite? Yes (1 point) Total Score: 1 Other Nutrition Screening Questions: The patient does not report any concerns with their teeth that would make it difficult to eat. The patient does not report overeating to the point of feeling sick or making themselves vomit. The patient denies gaining 10 lbs.(4.5 kgs) or more in the past 3 months without trying. The patient denies having any food allergies, intolerance, special dietary needs, or ethnic, cultural or anabaptist preferences that would affect their dietary needs. Food Insecurity Screening Within the past 12 months, you worried whether your food would run out before you got money to buy more. Never true Within the past 12 months, the food you bought just did not last you and you did not have the money to get more. Never true Food Insecurity Disposition: ======== RISK SCREENINGS ======== Alcohol Screen: Screen to be completed by: Nurse: SCREEN FOR ALCOHOL (AUDIT-C) An alcohol screening [...] required due to responses to other questions. *Does the patient consume alcohol? No Tobacco Use: Former - tobacco user Do you currently or have you ever used alternative nicotine products? Yes: Electronic Nicotine Delivery Systems (E-cigarettes/Vaping) Patient offered FDA-Approved cessation medication (alternative nicotine products): Patient declines cessation medication. Substance Use Assessment: *Do you use any recreational drugs or narcotics (prescription or non-prescription)? Yes: Cannabinoids/Marijuana: Amount used/Frequency: 1-2 x/week Date/Time of last use: Nov Offer Services for Substance Use Disorder: ========= RISK OF WANDERING ========= The patient does not have a history of wandering. ======= SUICIDE SCREEN ======= [place] Suicide Severity Rating Scale (C-SSRS) 1. Over the past month, have you [...] required due to responses to other questions. C-SSRS Screen is Negative ======== EXPOSURE TO VIOLENCE AND ABUSE PRE-SCREEN ======== Are you worried for your safety, that you will be hurt or harmed? No Has anyone tried to force you to sign papers or use your money against your will? No ======== POST TRAUMATIC STRESS DISORDER CARE CONSIDERATIONS ======== To minimize a startle response, what is your preference on how best to awaken you? No preference ========= REPRODUCTIVE & SEXUAL HEALTH ========= Do you have any sexual or reproductive concerns you would like your healthcare team to be aware of? No ======== ADVANCE DIRECTIVE ======== Notification of Rights Related to Advance Directives: Written notification provided. *The patient wishes to receive information about or assistance with Advance Care Planning and/or Advance Directive: No ======= SPIRITUALITY ======= Are there anabaptist practices or spiritual concerns you want the customs brokerage manager, your provider, and other health care team members to know? No ======== ANTICIPATED DISCHARGE NEEDS ======== Where do you live? Housing owned/rented by [place]: Method of transportation upon discharge: Private Vehicle: Are there any anticipated barriers to discharge? No ======= EDUCATIONAL NEEDS/LEARNING STYLE ======= Barriers to learning: None evident Patient learning style preferences: 1:1 Printed materials ======== VISITOR INFORMATION ======== Will you have a primary support person while in the hospital? No Patient's Visitor Restriction preferences: No Privacy Review: No passcode provided due to opt out DIAZ FALL SCALE & TIPS PROGRAM Diaz Fall Scale: The Diaz Fall scale was performed and score was 35. This is indicative of moderate risk for falls. History of falling: immediate or within 3 months? No Secondary diagnosis: Yes Ambulatory aid: None/bedrest/nurse assist Intravenous therapy/Heparin lock: Yes Gait/Transferring: Normal/bed rest/immobile Mental Status: Oriented to own ability/knows own limitations Fall Tailoring Interventions for Patient Safety (TIPS) Fall TIPS initiated with patient: Yes Interventions: Communicate recent fall or risk of harm ========= ASPIRATION RISK ASSESSMENT AND SWALLOW SCREEN ========= Aspiration Risk(s): Screening complete. No aspiration risk identified. Bedside Swallow Screen not indicated. PAIN ASSESSMENT Patient's acceptable pain goal: Are you currently experiencing pain? Yes - DVPRS scale used to assess Location: [facility] [employer] Pain Rating Scale (DVPRS): 4 Distracts me, can do usual activities Pain Score: 4 /argelia ALCANTAR RN REGISTERED NURSE Signed: 11/25/2024 19:05 EMMA GRANADOS [facility] Nov 25, 2024 06:17 PM NURSING INPATIENT NOTE: LOCAL TITLE: [facility] NURSING FREQUENT DOCUMENTATION STANDARD TITLE: NURSING INPATIENT NOTE DATE OF NOTE: NOV 25, 2024@18:17 ENTRY DATE: NOV 25, 2024@18:17:07 AUTHOR: PHILIPPE DAN EXP COSIGNER: URGENCY: STATUS: COMPLETED Version 2.4 Charting in accordance with [facility] STANDARD ([facility]) ACUTE INPATIENT/REHABILITATION NURSING ADMISSION SCREENING, ASSESSMENT, AND STANDARDS OF CARE ORAL INTAKE (PERCENTAGE OF MEAL EATEN) Dinner: Liquid supplement: /argelia RODAS [employer]ET AIRCRAFT SERVICER CITY PLANNING AIDE Signed: 11/25/2024 18:23 PHILIPPE DAN [facility] Nov 25, 2024 05:08 PM NURSING NOTE: LOCAL TITLE: [place] PROGRESS NOTE STL STANDARD TITLE: NURSING NOTE DATE OF NOTE: NOV 25, 2024@17:08 ENTRY DATE: NOV 25, 2024@17:08:44 AUTHOR: EMMA GRANADOS EXP COSIGNER: URGENCY: STATUS: COMPLETED Vet on tele box #[id number]. Will continue to monitor. /argelia ALCANTAR RN REGISTERED NURSE Signed: 11/25/2024 17:09 EMMA GRANADOS [facility] Nov 25, 2024 04:22 PM CARDIOLOGY NOTE: LOCAL TITLE: CARDIOLOGY CHART REVIEW STL STANDARD TITLE: CARDIOLOGY NOTE DATE OF NOTE: NOV 25, 2024@16:22 ENTRY DATE: NOV 25, 2024@16:22:35 AUTHOR: BARB GROSS EXP COSIGNER: DANE DUPONT URGENCY: STATUS: COMPLETED Patient is here for a scheduled Tikosyn load. 1) Please make sure patient has been compliant with his a/c in the past month and has not skipped any doses. If pt has been compliant with a/c, we can start the load tonight. If not, please make NPO for a SWATI tomorrow. Please obtain baseline labs: BMP and Mg. Assure K>4, Mg>2. If CrCl (not GFR) is >60 ml/min, can start Tikosyn 500mcg q12hr tonight. He will need an EKG 2 hours after his first dose. If QTC >550 (has RBBB at baseline) or if increased by >15% from baseline, please discuss with sales operations director credit and loan collections supervisor. Full consult note to follow tomorrow. /loreta/ Barb Gross MD Electric Organ Checker Signed: 11/25/2024 16:25 /loreta/ DANE DUPONT MD, FACC, FACP Staff Physician - Cardiology Cosigned: 11/25/2024 16:31 BARB GROSS [facility] Nov 25, 2024 02:51 PM ADMINISTRATIVE NOT E: LOCAL TITLE: ADMINISTRATIVE STL STANDARD TITLE: ADMINISTRATIVE NOTE DATE OF NOTE: NOV 25, 2024@14:51 ENTRY DATE: NOV 25, 2024@14:51:30 AUTHOR: MIKE ONEIL EXP COSIGNER: URGENCY: STATUS: COMPLETED PATIENT HAS BEEN ADMITTED ON 7-S ROOM A710-[address] LIDIA SWANSON /loreta/ MIKE ONEIL ADVANCED TELEPHONE DIAPHRAGM ASSEMBLER Signed: 11/25/2024 14:54 Receipt Acknowledged By: * AWAITING SIGNATURE * ALFRED QUIROGA * AWAITING SIGNATURE * LUIS GRIER 11/25/2024 15:02 /loreta/ JESUS CANNON SUPERVISOR MAIL CARRIERS MIKE NEGRON [facility]
--- OUTSIDE RECORDS SUMMARY | 2024-12-14 17:53 | XMS_ITS | Patient Health Record ---
Author Organization [facility] Address [address] [place] [address] Care Team Providers Care Energy Professional Name Role Phone PrinceLauriedavidGregg scalesrobertnoam Primary Care Provider Reason For Referral No Information Medications Medication SIG (Take, Route, Fr equency, Duration) Notes Start Date End Date Status Amoxicillin 500 MG 1 capsule Orally leslie ry 8 hrs; Duration: 7 days 05/09/2017 Active Clopidogrel Bisulfate Active Lisinopril Active Plan Of Treatment No Information Insurance Providers Payer Name Payer Address Payer Phone Subscriber Number Group Number Insured Name Patient Relationship to Insured Coverage Start Date Coverage End Date Medicaid [facility] Primary Only [address] [place] [address] [id number] Jose Toledo Self - patient is the insured [facility] [place] [address] [place] [address] [id number] [employer] summers Jose Self - patient is the insured Medical (General) History Medical History History ICD Code High blood pressure Stroke-2013
--- OUTSIDE RECORDS SUMMARY | 2024-12-14 17:54 | XMS_ITS | Encounter Summary ---
Author Organization [facility] Address [address] [place] [address] Care Team Providers Care Hat Band Attacher Name Role Phone Jm Cedillo MD Primary Care Provider [phone]- [phone] Encounter Details Date Type Department Care Team (Late st Contact Info) Description 08/17/2017 Abstract [facility] CONVERSION [address] [place] [address] , Generic MD Rob Social History Tobacco [...] on filedocumented in this encounter Care Teams Hat Band Attacher Relationship Specialty Start Date End Date Jm Cedillo MD PCP - General INTERNAL MEDICINE 12/23/18 documented as of this encounter
--- OUTSIDE RECORDS SUMMARY | 2024-12-14 17:54 | XMS_ITS | Encounter Summary ---
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 Organization [facility] Address [address] [place] [address] Care Team Providers Care Roof Tile Layer Name Role Phone JESSICA KAY Primary Care [...] ACTIV E [place] HIGH Jun 03, 2013 [phone] JOSEPHINE DiamondROSITA SPOUSE MEDICARE (WNR) MEDICARE (M) PART B Jul 04, 2016 PART B [id number] [phone] JOSEPHINE DiamondELI PATIENT MEDICARE (WNR) MEDICARE (M) PART A Jul 04, 2016 PART A [id number] [phone] RICHARDSO N,ELI PATIENT MEDICARE (WNR) MEDICARE (M) PART A Jul 04, 2016 PART A [id number] RICHARDSO N,ELI PATIENT MEDICARE (WNR) MEDICARE (M) PART A Jul 04, 2016 PART A [id number] RICHARDSO N,ELI PATIENT MEDICARE (WNR) MEDICARE (M) PART B Jul 04, 2016 PART B [id number] RICHARDSO N,ELI PATIENT MEDICARE (WNR) MEDICARE (M) PART B Jul 04, 2016 PART B [id number] [phone] RICHARDSO N,ELI PATIENT MEDICARE (WNR) MEDICARE (M) PART A Jul 04, 2016 PART A [id number] RICHARDSO N,ELI PATIENT MEDICARE (WNR) MEDICARE (M) PART B Jul 04, 2016 PART B [id number] [phone] RICHARDSO N,ELI PATIENT PRIME THERAPEUTI CS RX PRESCRIPT ION RX PLAN Jun 03, 2013 [id number] [phone] EMMASO N,ELI PATIENT Selected Encounter This section includes the information on record at [place] for the Encounter. Date/Time Encounter Type Encounter Description Reason Pro vider Source Nov 27, 2024 12:12 PM Inpatient Visit ADMIN PAT ACTIVTIES (MASNONCT) JOSE MIGUEL AMATO Encounter Template Text not used by [place] Plan of Treatment: Future Appointments (+ 6 months) and Future Tests (+/- 45 days) The Plan of Treatment section includes future care activities for the patient from all [place] treatmentfacilities. This section includes future appointments and future orders which are active, pending or scheduled. Future Appointments This section includes appointments that were scheduled to occur 6 months from the date of the Encounter, up to a maximum of 20 appointments. The data comes from all [place] treatment facilities. Appointment Date/Time Appointment Type Appointme nt Facility Name Jan 25, 2025 11:05 AM AMBULATORY - MEDICINE [facility] Jan 27, 2025 06:00 AM AMBULATORY - NONE [facility] Jan 27, 2025 06:15 AM AMBULATORY - MEDICINE [facility] Jan 28, 2025 02:00 PM AMBULATORY - MEDICINE [facility] 2025 01:00 PM AMBULATORY - MEDICINE [facility] Active, Pending, and Scheduled Orders This section includes a listing of several types of active, pending, and scheduled orders, including clinic medications orders, diagnostic test orders, procedure orders and consult orders; where the start date of the order is 45 days before the date of the Encounter or 45 days after the date of theEncounter. The data comes from all [place] treatment facilities. Test Date/Time Test Type Test Details Facility Name October 20, 2024 04:34 PM Procedure Order CP ELECTRO PHYSIOLOGY STL CP ELECTROPHYSIOLOGY STL [facility] October 23, 2024 02:40 PM Procedure Order CP SWATI ECH OCARDIOGRAM JOSELYN SWATI FUTURE CARE ECHOCARDIOGRAM STL [facility] Nov 27, 2024 11:41 AM Procedure Order CP EKG STL CP EKG - STL Proc Bedside [facility] Lab Results: +/- 30 days of the encounter This section includes the Chemistry and Hematology Lab Results on record with [place] for the patient. Radiology Reports and Pathology Reports are provided separately, in subsequent sections. Lab Results This section contains the Chemistry/Hematology Results that were resulted 30 days before or 30 daysafter the date of the Encounter. Date/Time Source Result Type Result - Unit Interpretation Reference Range Specimen Type Comment Nov 28, 2024 08:16 AM [facility] MAGNESIUM PLASMA Specimen Type: PLASMA Comment: No hemolysis noted. Ordering Provider: INOCENCIA TITUS Report Released Date/Time: Nov 27, 2024 07:13 PM Reporting Lab: [facility] [address] [facility] [address] Performing Lab: [facility] [address] [facility] [address] MAGNESIUM 2.1 mg/dL 1.6-2.6 Nov 28, 2024 08:16 AM [facility] RENAL PANEL PLASMA Specimen Type: PLASM A Comment: No hemolysis noted. Ordering Provider: INOCENCIA TITUS Report Released Date/Time: Nov 27, 2024 07:13 PM Reporting Lab: [place] [address] [facility] [address] Performing Lab: [address] [address] CREATININE 1.15 mg/dL 0.7-1.3 UREA NITROGEN 13.3 mg/dL 9.0-25.0 GLUCOSE 104 mg/dL H 72-99 SODIUM 139 meq/L 136-145 POTASSIUM 4.1 meq/L 3.5-5 CHLORIDE 105 meq/L 98-107 CARBON DIOXIDE 28 meq/L 22-31 CALCIUM 9.0 mg/dL 8.4-10.4 PHOSPHOROUS 2.8 mg/dL 2.3-4.7 ALBUMIN 3.6 g/dL 3.4-5 EGFR (CKD-EPI 2020) 69.8 >60 Nov 27, 2024 06:35 PM [facility] CBC BLOOD Specimen Type: BLOOD No comment entered. Ordering Provider: LIDIA SWANSON Report Released Date/Time: Nov 25, 2024 04:28 PM Reporting Lab: [address] [address] Performing Lab: [address] [address] WBC 9.5 10*3/uL 3.6-11.2 RBC 4.19 10*6/uL [...] 0.00-0. 20 Nov 27, 2024 02:46 PM [facility] RENAL PANEL PLASMA Specimen Type: PLASM A Comment: No hemolysis noted. Ordering Provider: LIDIA SWANSON Report Released Date/Time: Nov 25, 2024 03:08 PM Reporting Lab: [address] [address] Performing Lab: [address] [address] CREATININE 1.20 mg/dL 0.7-1.3 UREA NITROGEN 15.1 mg/dL 9.0-25.0 GLUCOSE 137 mg/dL H 72-99 SODIUM 140 meq/L 136-145 POTASSIUM 4.1 meq/L 3.5-5 CHLORIDE 106 meq/L 98-107 CARBON DIOXIDE 29 meq/L 22-31 CALCIUM 8.9 mg/dL 8.4-10.4 PHOSPHOROUS 2.3 mg/dL 2.3-4.7 ALBUMIN 3.7 g/dL 3.4-5 EGFR (CKD-EPI 2020) 66.3 >60 Nov 27, 2024 02:00 PM [facility] MAGNESIUM PLASMA Specimen Type: PLASM A Comment: No hemolysis noted. Ordering Provider: LIDIA SWANSON Report Released Date/Time: Nov 26, 2024 09:37 AM Reporting Lab: [address] [address] Performing Lab: [address] [address] MAGNESIUM 2.4 mg/dL 1.6-2.6 Nov 27, 2024 07:29 AM [facility] B12 SERUM Specimen Type: SERUM No comment entered. Ordering Provider: LIDIA SWANSON Report Released Date/Time: Nov 26, 2024 08:37 PM Reporting Lab: [address] [address] Performing Lab: [address] [address] B12 418 pg/mL 213-816 Nov 27, 2024 07:29 AM [facility] FOLATE (L-MA) SERUM Specimen Type: SERUM No comment entered. Ordering Provider: LIDIA SWANSON Report Released Date/Time: Nov 26, 2024 08:37 PM Reporting Lab: [address] [address] Performing Lab: [facility] [address] [place] [phone] FOLATE (STL-MA) 6.7 ng/mL L 7-20 Nov 27, 2024 06:20 AM [facility] PHOSPHOROUS PLASMA Specimen Type: PLASM A Comment: No hemolysis noted. Ordering Provider: MARICRUZ HARDY Report Released Date/Time: Nov 27, 2024 05:38 AM Reporting Lab: [address] [address] Performing Lab: [facility] [address] [place] [phone] PHOSPHOROUS 4.1 mg/dL 2.3-4.7 Nov 27, 2024 06:20 AM [facility] MAGNESIUM PLASMA Specimen Type: PLASM A Comment: No hemolysis noted. Ordering Provider: MARICRUZ HARDY Report Released Date/Time: Nov 27, 2024 05:33 AM Reporting Lab: [address] [address] Performing Lab: [address] [address] MAGNESIUM 2.8 mg/dL H 1.6-2.6 Nov 27, 2024 06:20 AM [facility] BASIC METABOLIC PANEL PLASMA Specimen Type: PL ASMA Comment: No hemolysis noted. Ordering Provider: MARICRUZ HARDY Report Released Date/Time: Nov 27, 2024 05:33 AM Reporting Lab: [address] [address] Performing Lab: [address] [address] CREATININE 1.18 mg/dL 0.7-1.3 UREA NITROGEN 13.7 mg/dL 9.0-25.0 GLUCOSE 106 mg/dL H 72-99 SODIUM 141 meq/L 136-145 POTASSIUM 4.4 meq/L 3.5-5 CHLORIDE 104 meq/L 98-107 CARBON DIOXIDE 26 meq/L 22-31 CALCIUM 8.6 mg/dL 8.4-10.4 EGFR (CKD-EPI 2020) 67.6 >60 Nov 26, 2024 07:45 PM [facility] CBC BLOOD Specimen Type: BLOOD No comment entered. Ordering Provider: LIDIA SWANSON Report Released Date/Time: Nov 25, 2024 04:28 PM Reporting Lab: [address] [address] Performing Lab: [address] [address] WBC 9.3 10*3/uL 3.6-11.2 RBC 4.37 10*6/uL [...] 0.00-0. 20 Nov 26, 2024 02:14 PM [facility] RENAL PANEL PLASMA Specimen Type: PLASM A Comment: No hemolysis noted. Ordering Provider: LIDIA SWANSON Report Released Date/Time: Nov 25, 2024 03:08 PM Reporting Lab: [address] [address] Performing Lab: [address] [address] CREATININE 1.21 mg/dL 0.7-1.3 UREA NITROGEN 13.4 mg/dL 9.0-25.0 GLUCOSE 118 mg/dL H 72-99 SODIUM 139 meq/L 136-145 POTASSIUM 4.4 meq/L 3.5-5 CHLORIDE 106 meq/L 98-107 CARBON DIOXIDE 30 meq/L 22-31 CALCIUM 9.0 mg/dL 8.4-10.4 PHOSPHOROUS 1.8 mg/dL L 2.3-4.7 ALBUMIN 3.6 g/dL 3.4-5 EGFR (CKD-EPI 2020) 65.6 >60 Nov 26, 2024 02:00 PM [facility] MAGNESIUM PLASMA Specimen Type: PLASM A Comment: No hemolysis noted. Ordering Provider: LIDIA SWANSON Report Released Date/Time: Nov 26, 2024 09:37 AM Reporting Lab: [address] [address] Performing Lab: [address] [address] MAGNESIUM 1.8 mg/dL 1.6-2.6 Nov 25, 2024 09:00 PM [facility] MRSA SURVL NARES DNA NARES [...] Nov 25, 2024 08:59 PM Reporting Lab: [address] [address] Performing Lab: [place] [id number] [place] [phone] MRSA SURVL NARES DNA Negative Negative Nov 25, 2024 07:05 PM [facility] CBC BLOOD Specimen Type: BLOOD No comment entered. Ordering Provider: LIDIA SWANSON Report Released Date/Time: Nov 25, 2024 04:28 PM Reporting Lab: [address] [address] Performing Lab: [address] [address] WBC 8.8 10*3/uL 3.6-11.2 RBC 4.00 10*6/uL [...] 0.00-0. 20 Nov 25, 2024 06:43 PM [facility] MAGNESIUM PLASMA Specimen Type: PLASM A Comment: No hemolysis noted. Ordering Provider: LIDIA SWANSON Report Released Date/Time: Nov 25, 2024 04:22 PM Reporting Lab: [address] [address] Performing Lab: [address] [address] MAGNESIUM 1.9 mg/dL 1.6-2.6 Nov 25, 2024 06:43 PM [facility] PHOSPHOROUS PLASMA Specimen Type: PLASM A Comment: No hemolysis noted. Ordering Provider: LIDIA SWANSON Report Released Date/Time: Nov 25, 2024 04:28 PM Reporting Lab: [facility] [address] [place] [phone] Performing Lab: [address] [address] PHOSPHOROUS 2.5 mg/dL 2.3-4.7 Nov 25, 2024 06:43 PM [facility] COMPREHENSIVE METABOLIC PANEL PLASMA Specimen Type: PLASMA Comment: No hemolysis noted. Ordering Provider: LIDIA SWANSON Report Released Date/Time: Nov 25, 2024 04:22 PM Reporting Lab: [address] [address] Performing Lab: [address] [address] CREATININE 1.27 mg/dL 0.7-1.3 UREA NITROGEN 15.7 [...] 122/49 mm[Hg] 18 /min 93 % 0 [facility] Nov 27, 2024 08:28 PM 97.8 F 67 /min 132/75 mm[Hg] 18 /min 94 % 0 [facility] Nov 27, 2024 04:34 PM 97.4 F 68 /min 160/99 mm[Hg] 18 /min 94 % 0 [facility] Nov 27, 2024 12:24 PM 97.6 F 70 /min 165/93 mm[Hg] 18 /min 95 % 0 [facility] Nov 27, 2024 07:46 AM 0 [facility] Encounter Notes: All associated encounter notes This section contains the clinical notes associated to the Encounter. Date/Time Encounter Note(s) Provider Source Nov 27, 2024 12:12 PM ANESTHESIOLOGY JIMMIE WSHEET: LOCAL TITLE: PACU POST-OP FLOWSHEET ST STANDARD TITLE: ANESTHESIOLOGY FLOWSHEET DATE OF NOTE: NOV 27, 2024@12:12 ENTRY DATE: NOV 27, 2024@12:12:34 AUTHOR: JOSE MIGUEL AMATO EXP COSIGNER: URGENCY: STATUS: COMPLETED Patient: ELI RUELAS SSN: [id number] Anesthesia Method: Monitored 11/27/2024 11:22 (Primary), Level Of Consciousness: Sedated, Monitors Applied, Oxygen Therapy: Nasal Cannula, EtCO2 Verified: Waveform Positioning: Head Neutral, Head And Neck In Alignment With Spine, Pressure Points Padded & Checked, Eyes, Ears And Nose Free Of Pressure ASA Number: 3 Procedure: cardioversion Diagnosis: a-fib PACU Drugs: PACU Fluids: Date of Operation: 11/27/2024 Anesthesia Care End: 11/27/2024 11:43 Resources: Headrest - Pillow Staff: --------- VISHAL FISHER PRIN. ANES. MUTHUSAMY, MEGAN, ANES. MADELIN. JOSE MIGUEL AMATO, Post-Op Nurse Surgery Start Time: Procedure End Time: 11/27/2024 11:39 Moderate Sedation Care End: /loreta/ JOSE MIGUEL TURNERN RN REGISTERED NURSE Signed: 11/27/2024 12:12 JOSE MIGUEL AMATO [facility]
--- OUTSIDE RECORDS SUMMARY | 2024-12-14 17:54 | XMS_ITS | Continuity of Care Document ---
Author Name [facility] Organization [facility] Care Team Providers Care House Parent Name Role Phone [facility] Unavailable Unavailable Problems Combined list of problems [...] Kolb [facility] Anxiety Active Condition [facility] Asthma Active Condition [facility] Asthma (SNOMED CT [id number]) Active Condition [facility] Chronic kidney disease stage 3A Active Condition [facility] Chronic obstructive lung disease Active Condition [facility] CVA - Cerebrovascular accident Active Condition [facility] Daily headache Active Condition [facility] Deficiency of vitamin D3 Active Condition [facility] Dyspnea Active Condition [facility] Erectile dysfunction Active Condition [facility] Essential hypertension Active Condition [facility] Hepatitis C Active Condition [facility] Hepatitis C Active Condition Mar 09, 2019 Entered By: GEE HATFIELD Comment: in remission [facility] Histoplasmosis Active Condition Jul 052016 Entered By: KISHORE AGUAYO Comment: Hx. of left lower lobe wedge rescetions in the mid per notes from Dr. Mio Palencia [facility] History of cerebrovascular accident Active Condition [facility] History of colonic polyp Active Condition [facility] History of polyp of colon Active Condition [facility] History of right hip replacement Active Condition [facility] - Hyperlipidaemia Active Condition [facility] Hyperlipidemia Active Condition [facility] Hypertensive heart AND chronic kidney disease stage 3 Active Condition [facility] Knee pain (SNOMED CT [id number]) Active Condition [facility] Lung cancer Active Condition Apr 05, 2021 Entered By: WES GARCIA Comment: RLL - Lobectomy - August 2020 [facility] Multiple pulmonary nodules Active Condition [facility] Nicotine dependence Active Condition [facility] Osteoarthritis of joint of left shoulder region Active Condition [facility] PAF - Paroxysmal atrial fibrillation Active Condition [facility] Pain in right hip joint Active Condition Aug 09, 2016 Entered By: KISHORE AGUAYO Comment: 04/04/2016- right toal hip arthroplasty by Dr. Irwin Kolb [facility] Pain of left shoulder joint Active Condition [facility] Periventricular hemorrhagic venous infarct Active Condition [facility] periventricular infarction Active Condition [facility] Peyronie's disease Active Condition [facility] Prediabetes Active Condition [facility] Shoulder pain Active Condition [facility] Tobacco dependence, continuous Active Condition [facility] Tobacco use Active Condition [facility] Vitamin D deficiency Active Condition [facility] Benign essential hypertension Inactive Condition 04/05/2021 [facility] Diagnosis: ICD-10-CM I48.0 Paroxysmal atrial fibrillation Active Diagnosis [facility] Diagnosis: ICD-10-CM Z71.81 Spiritual or yazidism counseling Active Diagnosis [facility] Diagnosis: ICD-10-CM I48.3 Typical atrial flutter Active Diagnosis [facility] Diagnosis: ICD-10-CM Z01.818 Encounter for other preprocedural examination Active Diagnosis [facility] Diagnosis: ICD-10-CM Z51.81 Encounter for therapeutic drug level monitoring Active Diagnosis [facility] Diagnosis: ICD-10-CM I48.91 Unspecified atrial fibrillation Active Diagnosis [facility] Admit Reason: ATRIAL FIBRILATION Active Diagnosis [facility] Diagnosis: ICD-10-CM G46.4 Cerebellar stroke syndrome Active Diagnosis [facility] Diagnosis: ICD-10-CM I48.19 Other persistent atrial fibrillation Active Diagnosis [facility] Diagnosis: ICD-10-CM I25.10 Athscl heart disease of [place] coronary artery w/o ang pctrs Active Diagnosis [facility] Diagnosis: ICD-10-CM Z02.9 Encounter for administrative examinations, unspecified Active Diagnosis [facility] Diagnosis: ICD-10-CM J44.9 Chronic obstructive pulmonary disease, unspecified Active Diagnosis [facility] Diagnosis: ICD-10-CM R06.00 Dyspnea, unspecified Active Diagnosis [facility] Diagnosis: ICD-10-CM J44.1 Chronic obstructive pulmonary disease w (acute) exacerbation Active Diagnosis [facility] Diagnosis: ICD-10-CM I63.9 Cerebral infarction, unspecified Active Diagnosis [facility] Diagnosis: ICD-10-CM K63.5 Polyp of colon Active Diagnosis [facility] Diagnosis: ICD-10-CM 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 Active Diagnosis [facility] Diagnosis: ICD-10-CM Z72.0 Tobacco use Active Diagnosis [facility] Diagnosis: ICD-10-CM Z71.89 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ed counseling Active Diagnosis [facility] Diagnosis: ICD-10-CM F17.200 Nicotine dependence, unspecified, uncomplicated Active Diagnosis [facility] Diagnosis: ICD-10-CM F17.210 Nicotine dependence, cigarettes, uncomplicated Active Diagnosis [facility] Diagnosis: ICD-10-CM Z86.010 Personal history of colonic polyps Active Diagnosis [facility] Diagnosis: ICD-10-CM H35.9 Unspecified retinal disorder Active Diagnosis [facility] Diagnosis: ICD-10-CM H34.211 Partial retinal artery occlusion, right eye Active Diagnosis [facility] Diagnosis: ICD-10-CM 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 RESPIR ATORY (INHAL ATION) ACTIVE 04/09/2025 [id number] SIOMARAE WES 2023 3 [facility] ALBUTEROL SO4 90MCG/ACTUA T (CFC-F) INHL,ORAL,8 .5GM INHALE 2 PUFFS ORAL INHALATI ON FOUR TIMES A DAY SHAKE WELL. RINSE MOUTHPIE CE FREQUENT LY TO PREVENT CLOGGING . RESPIR ATORY (INHAL ATION) DISCONT INUED 09/18/2024 [id number] 4 MCQUAIDE WES 2023 3 [facility] APIXABAN 5MG TAB TAKE ONE TABLET BY MOUTH TWICE A DAY FOR ANTICOAG ULATION ORAL ACTIVE 08/11/2025 [id number] 5 SA RUMA VIZCARRA 2024 60 [facility] APIXABAN 5MG TAB TAKE ONE TABLET BY MOUTH TWICE A DAY FOR ANTICOAG ULATION ORAL DISCONT INUED 05/21/2025 [id number] 5 MCQUAIDE WES 2023 60 [facility] BISACODYL 5MG TAB,EC TAKE TWO TABLETS BY MOUTH ONE TIME TAKE BISACODY L TABLETS AT 4PM ON AFTERNOO N PRIOR TO TEST. CALL WITH ANY QUESTION S ABOUT THESE INSTRUCT IONS. MAIL TAKE BISACODY L TABLETS AT 4PM ON AFTERNOO N PRIOR TO TEST. CALL WITH ANY QUESTION S ABOUT THESE INSTRUCT IONS. MAIL ORAL 12/05/2023 [id number] 4 SHARON BRANDT 2023 2 [facility] BUMETANIDE 1MG TAB TAKE ONE-HALF TABLET BY MOUTH EVERY MORNING FOR FLUID RETENTIO N (EDEMA) ORAL DISCONT INUED 09/27/2024 [id number] 5 MARCELO,BRA NDT T 2024 4 [facility] BUMETANIDE 1MG TAB TAKE ONE-HALF TABLET BY MOUTH EVERY MORNING FOR FLUID RETENTIO N (EDEMA) ORAL 10/02/2024 [id number] 5 MARCELO,BRA NDT T 2024 4 [facility] BUPROPION HCL 150MG 12HR TAB,SA TAKE ONE TABLET BY MOUTH TWICE A DAY FOR SMOKING CESSATIO N. SWALLOW WHOLE - DO NOT CRUSH OR CHEW. ORAL 09/10/2024 [id number] 4 AMI SUTHERLAND A 2023 180 [facility] CLOPID[facility] BISULFATE 75MG TAB TAKE ONE TABLET BY MOUTH DAILY ORAL ACTIVE Zoraida AGUAYO 2016 [facility] DOFETILIDE 250MCG CAP TAKE ONE CAPSULE BY MOUTH EVERY 12 HOURS FOR ATRIAL FIBRILLA TION - AVOID GRAPEFRU IT/GRAPE FRUIT JUICE WHILE ON THIS MEDICATI ON. ORAL ACTIVE 11/29/2025 [id number] 5 LIDIA SWANSON 2024 180 [facility] FOLIC ACID 0.4MG TAB TAKE ONE TABLET BY MOUTH ONCE A DAY FOR FOLIC ACID SUPPLEME NTATION ORAL ACTIVE 11/29/2025 [id number] 5 LIDIA SWANSON 2024 90 [facility] Lobo HYDROCODONE 7.5MG/ACETA MINOPHEN 325MG TAB TAKE ONE TABLET BY MOUTH EVERY 4 HOURS NEEDED ORAL ACTIVE Zoraida AGUAYO 2016 [facility] HYDROXYZINE HCL 10MG *HI-ALERT* TAB TAKE 25MG BY MOUTH THREE TIMES A DAY NEEDED ORAL ACTIVE Zoraida AGUAYO Zoraida 2016 [facility] LISINOPRIL 20MG TAB TAKE ONE-HALF TABLET BY MOUTH DAILY ORAL ACTIVE Zoraida AGUAYO SURENDRAGARRY Zoraida 2016 [facility] LISINOPRIL 40MG TAB TAKE ONE-HALF TABLET BY MOUTH ONCE A DAY ORAL ACTIVE Ramiro HATFIELD 2018 [facility] METHOCARBAM OL 500MG TAB TAKE 1 TABLET BY MOUTH THREE TIMES A DAY NEEDED FOR MUSCLE SPASM ORAL ACTIVE 04/09/2025 [id number] 5 MCQUAIDE, WES 2023 90 [facility] METHOCARBAM OL 500MG TAB TAKE 1 TABLET BY MOUTH THREE TIMES A DAY NEEDED ORAL DISCONT INUED 09/18/2024 [id number] 4 MCQUAIDE, WES 2023 90 [facility] METOPROLOL SUCCINATE 50MG TAB,SA TAKE ONE-HALF TABLET BY MOUTH ONCE A DAY ORAL ACTIVE SA RUMA VIZCARRA M 2024 [facility] PEG-3350/EL ECTROLYTES PWDR MIX AND [...] TEST. READ YOUR INSTRUCT IONS!) ORAL 12/05/2023 [id number] 4 SHARON BRANDT 2023 1 [facility] POTASSIUM CHLORIDE 20MEQ TAB,SA (DISPERSIBL E) TAKE TWO TABLETS BY MOUTH ONCE A DAY FOR DESI Han SUPPLEME NTATION TAKE WITH FOOD ORAL 09/27/2024 [id number] 5 CLAUDIA ROBERTSON NDT T 2024 14 [facility] PREDNISONE 10MG TAB TAKE FIVE [...] FOOD OR MILK. ORAL DISCONT INUED 09/12/2024 [id number] 5 WES GARCIA 2024 93 [facility] PREDNISONE 10MG TAB TAKE TWO TABLETS BY MOUTH EVERY MORNING FOR 2 DAYS, THEN TAKE ONE TABLET EVERY MORNING FOR 6 DAYS, THEN TAKE ONE-HALF TABLET EVERY MORNING FOR 6 DAYS FOR COPD EXACERBA TION TAKE WITH FOOD OR MILK. ORAL 09/27/2024 [id number] 5 CLAUDIA ROBERTSON NDT T 2024 13 [facility] ROSUVASTATI N CA 40MG TAB TAKE ONE-HALF TABLET BY MOUTH EVERY EVENING ORAL ACTIVE LEFTY VALLADARES L 2020 [facility] SIMETHICONE 80MG TAB,CHEW CHEW AND SWALLOW FOUR TABLETS BY MOUTH DIRECTED FOR TWO DOSES BEFORE GI PROCEDUR E ORAL 12/05/2023 [id number] 4 SHARON BRANDT 2023 8 [facility] MALCOLM Emely 62.5MCG/SOHEILA ANTEROL 25MCG/ACTUA T INH,ORAL,30 D INHALE 1 PUFF ORAL INHALATI ON ONCE A DAY RESPIR ATORY (INHAL ATION) ACTIVE BLAINELEFTY HELLE L 2020 [facility] Allergies, Adverse Reactions, Alerts Combined list of allergies from 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 It does not include entries that were removed or entered in error. Substance Category Reaction Severity Reaction type Status Date Reported Comments Source CHLOEX Propensity to adverse reactions to drug (finding) Nightmares active 0 [facility] Immunizations Combined list of available immunizations from the 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 Status Comments Source INFLUENZA, HIGH-DOSE, TRIVALENT, PF 2023 OVERTURF,BRIGITTE E A RIGHT DELTO ID [id number] A 135 complet ed [facility] COVID-19 (PFIZER), MRNA, LNP-S, PF, AGUILAR-SUCROSE, 30 MCG/0.3 ML (AGES 12+ YEARS) 2023 309 complet ed HISTORICA L INFORMATI ON - FROM PATIENT'S RECALL, [facility] COVID-19 (MODERNA), MRNA, LNP-S, PF, 50 MCG/0.5 ML (AGES 12+ YEARS) 1 2023 312 complet ed HISTORICA L INFORMATI ON - FROM OTHER [facility], [facility] COVID-19 (MODERNA), MRNA, LNP-S, PF, 50 MCG/0.5 ML (AGES 12+ YEARS) 6 2022 312 complet ed HISTORICA L INFORMATI ON - FROM OTHER [facility] INFLUENZA, HIGH-DOSE, QUADRIVALENT, PF 1 2022 197 complet ed HISTORICA L INFORMATI ON - FROM OTHER [facility], [facility] RSV, RECOMBINANT, PROTEIN SUBUNIT RSVPREF3, ADJUVANT RECONSTITUTED , 0.5 ML, PF 1 2022 303 complet ed HISTORICA L INFORMATI ON - FROM OTHER [facility], [facility] COVID-19 (PFIZER), MRNA, LNP-S, PF, AGUILAR-SUCROSE, 30 MCG/0.3 ML (AGES 12+ YEARS) 1 2022 309 complet ed HISTORICA L INFORMATI ON - FROM PATIENT'S RECALL, [facility] INFLUENZA, UNSPECIFIED FORMULATION 2022 88 complet ed HISTORICA L INFORMATI ON - FROM PATIENT'S RECALL, [facility] N PNEUMOCOCCAL CONJUGATE PCV20, POLYSACCHARID E [id number] CONJUGATE, ADJUVANT, PF 3 2021 216 complet ed HISTORICA L INFORMATI ON - FROM OTHER REGISTRY, [facility] INFLUENZA, SPLIT VIRUS, QUADRIVALENT, PF 1 2021 150 complet ed HISTORICA L INFORMATI ON - FROM OTHER REGISTRY, [facility] INFLUENZA, UNSPECIFIED FORMULATION 2021 88 complet ed HISTORICA L INFORMATI ON - FROM PATIENT'S RECALL, [facility] COVID-19, MRNA, LNP-S, BIVALENT BOOSTER, PF, 30 MCG/0.3 ML DOSE 1 2021 300 complet ed PFR; [id number]; 3 [facility] COVID-19 (Set.fm), MRNA, LNP-S, PF, 30 MCG/0.3 ML DOSE, AGUILAR-SUCROSE (AGES 12+ YEARS) 4 2021 217 complet ed [facility] ZOSTER RECOMBINANT 2 2021 187 complet ed [facility] COVID-19 (Set.fm), MRNA, LNP-S, PF, 30 MCG/0.3 ML DOSE 3 2020 208 complet ed PFR; [id number]; 2 [facility] INFLUEN[facility], INJECTABLE, QUADRIVALENT, PRESERVATIVE FREE 2020 150 complet ed [facility] ZOSTER RECOMBINANT 1 2020 187 complet ed [facility] COVID-19 (Set.fm), MRNA, LNP-S, PF, 30 MCG/0.3 ML DOSE 2 2020 208 complet ed HISTORICA L INFORMATI ON - FROM OTHER REGISTRY, [facility] COVID-19 (PFIZER), MRNA, LNP-S, PF, 30 MCG/0.3 ML DOSE 2 2020 208 complet ed [facility] COVID-19 (Set.fm), MRNA, LNP-S, PF, 30 MCG/0.3 ML DOSE [address] [facility] INFLUENZA, UNSPECIFIED FORMULATION 2019 88 complet ed [facility] INFLUENZA, SPLIT VIRUS, QUADRIVALENT, PF 1 2019 150 complet ed HISTORICA L INFORMATI ON - FROM OTHER REGISTRY, [facility] TDAP 1 2018 115 complet ed HISTORICA L INFORMATI ON - FROM OTHER [facility], [facility] INFLUENZA, UNSPECIFIED FORMULATION 2018 88 complet ed [facility] INFLUENZA, MDCK, QUADRIVALENT, PRESERVATIVE 1 2018 186 complet ed HISTORICA L INFORMATI ON - FROM OTHER REGISTRY, [facility] INFLUENZA, SPLIT VIRUS, QUADRIVALENT, PRESERVATIVE 1 2017 158 complet ed HISTORICA L INFORMATI ON - FROM OTHER REGISTRY, [facility] INFLUENZA, SPLIT VIRUS, QUADRIVALENT, PRESERVATIVE 1 2016 158 complet ed HISTORICA L INFORMATI ON - FROM OTHER REGISTRY, [facility] INFLUENZA, SEASONAL, INJECTABLE, PRESERVATIVE FREE 2015 140 complet ed [facility] INFLUENZA, SPLIT VIRUS, TRIVALENT, PF 1 2015 140 complet ed HISTORICA L INFORMATI ON - FROM OTHER REGISTRY, [facility] INFLUENZA, UNSPECIFIED FORMULATION 2014 88 complet ed [facility] PNEUMOCOCCAL CONJUGATE PCV 13 2014 133 complet ed notes dated 07/25/[address] Mio Palencia [facility] PNEUMOCOCCAL CONJUGATE PCV 13 2014 133 complet ed [facility] INFLUENZA, SPLIT VIRUS, TRIVALENT, PF 1 2013 140 complet ed HISTORICA L INFORMATI ON - FROM OTHER REGISTRY, [facility] PNEUMOCOCCAL POLYSACCHARID E PPV23 2013 33 complet ed [facility] INFLUENZA, UNSPECIFIED FORMULATION 2013 88 complet ed [facility] INFLUENZA, UNSPECIFIED FORMULATION 2013 88 complet ed [facility] INFLUENZA, SPLIT VIRUS, TRIVALENT, PRESERVATIVE 1 2012 141 complet ed HISTORICA L INFORMATI ON - FROM OTHER REGISTRY, [facility] PNEUMOCOCCAL POLYSACCHARID E PPV23 1 2012 33 complet ed HISTORICA L INFORMATI ON - FROM OTHER REGISTRY, [facility] PNEUMOCOCCAL POLYSACCHARID E PPV23 2012 33 complet ed [facility] 2012 121 complet ed [facility] 2009 121 complet ed [facility] Results Combined list of recent chemistry, hematology and other laboratory results from Department of Defense and Veterans Affairs, ranging from 15 months to all on record, depending upon the facility. Order Name Results Value Reference Range Date Interpretation Specimen Comments Source MAGNESIUM MAGNESIUM [MASS/VOLUM E] IN SERUM OR PLASMA 2.1 mg/dL 1.6 - 2.6 11/28 Specimen Type: PLASMA Comment: No hemolysis noted. Ordering Provider: INOCENCIA TITUS Report Released Date/Time: Nov 27, 2024 07:13 PM Reporting Lab: [address] [address] Performing Lab: [address] [address] [facility] RENAL PANEL CREATININE [MASS/VOLUM E] IN SERUM OR PLASMA 1.15 mg/dL 0.7 - 1.3 11/28 Specimen Type: PLASMA Comment: No hemolysis noted. Ordering Provider: INOCENCIA TITUS Report Released Date/Time: Nov 27, 2024 07:13 PM Reporting Lab: [facility] [address] [place] [phone] Performing Lab: [facility] [address] [place] [phone] [facility] RENAL PANEL UREA NITROGEN [MASS/VOLUM E] IN SERUM OR PLASMA 13.3 mg/dL 9.0 - 25.0 11/28 Specimen Type: PLASMA Comment: No hemolysis noted. Ordering Provider: INOCENCIA TITUS Report Released Date/Time: Nov 27, 2024 07:13 PM Reporting Lab: [facility] [address] [place] [phone] Performing Lab: [address] [address] [facility] RENAL PANEL GLUCOSE [MASS/VOLUM E] IN SERUM OR PLASMA 104 mg/dL 72 - 99 11/28 H Specimen Type: PLASMA Comment: No hemolysis noted. Ordering Provider: INOCENCIA TITUS Report Released Date/Time: Nov 27, 2024 07:13 PM Reporting Lab: [facility] [address] [facility] [address] Performing Lab: [facility] [address] [place] [phone] [facility] RENAL PANEL SODIUM [MOLES/VOLU ME] IN SERUM OR PLASMA 139 meq/L 136 - 145 11/28 Specimen Type: PLASMA Comment: No hemolysis noted. Ordering Provider: INOCENCIA TITUS Report Released Date/Time: Nov 27, 2024 07:13 PM Reporting Lab: [address] [address] Performing Lab: [address] [address] [facility] RENAL PANEL POTASSIUM [MOLES/VOLU ME] IN SERUM OR PLASMA 4.1 meq/L 3.5 - 5 11/28 Specimen Type: PLASMA Comment: No hemolysis noted. Ordering Provider: INOCENCIA TITUS Report Released Date/Time: Nov 27, 2024 07:13 PM Reporting Lab: [address] [address] Performing Lab: [address] [address] [facility] RENAL PANEL CHLORIDE [MOLES/VOLU ME] IN SERUM OR PLASMA 105 meq/L 98 - 107 11/28 Specimen Type: PLASMA Comment: No hemolysis noted. Ordering Provider: INOCENCIA TITUS Report Released Date/Time: Nov 27, 2024 07:13 PM Reporting Lab: [address] [address] Performing Lab: [address] [address] [facility] RENAL PANEL CARBON DIOXIDE, TOTAL [MOLES/VOLU ME] IN SERUM OR PLASMA 28 meq/L 22 - 31 11/28 Specimen Type: PLASMA Comment: No hemolysis noted. Ordering Provider: INOCENCIA TITUS Report Released Date/Time: Nov 27, 2024 07:13 PM Reporting Lab: [place] [address] [facility] [address] Performing Lab: [place] [address] [facility] [address] [facility] RENAL PANEL CALCIUM [MASS/VOLUM E] IN SERUM OR PLASMA 9.0 mg/dL 8.4 - 10.4 11/28 Specimen Type: PLASMA Comment: No hemolysis noted. Ordering Provider: INOCENCIA TITUS Report Released Date/Time: Nov 27, 2024 07:13 PM Reporting Lab: [place] [address] [facility] [address] Performing Lab: [place] [address] [facility] [address] [facility] RENAL PANEL PHOSPHATE [MASS/VOLUM E] IN SERUM OR PLASMA 2.8 mg/dL 2.3 - 4.7 11/28 Specimen Type: PLASMA Comment: No hemolysis noted. Ordering Provider: INOCENCIA TITUS Report Released Date/Time: Nov 27, 2024 07:13 PM Reporting Lab: [place] [address] [facility] [address] Performing Lab: [place] [address] [facility] [address] [facility] RENAL PANEL ALBUMIN [MASS/VOLUM E] IN SERUM OR PLASMA 3.6 g/dL 3.4 - 5 11/28 Specimen Type: PLASMA Comment: No hemolysis noted. Ordering Provider: INOCENCIA TITUS Report Released Date/Time: Nov 27, 2024 07:13 PM Reporting Lab: [place] [address] [facility] [address] Performing Lab: [address] [address] [facility] RENAL PANEL GLOMERULAR FILTRATION RATE/1.73 SQ M.PREDICTED [VOLUME RATE/AREA] IN SERUM, PLASMA OR BLOOD BY CREATININE- BASED FORMULA (CKD-EPI 2020) 69.8 60 11/28 Specimen Type: PLASMA Comment: No hemolysis noted. Ordering Provider: INOCENCIA TITUS Report Released Date/Time: Nov 27, 2024 07:13 PM Reporting Lab: [place] [address] [facility] [address] Performing Lab: [place] [address] [facility] [phone] CBC LEUKOCYTES [#/VOLUME] IN BLOOD BY AUTOMATED COUNT 9.5 10*3/u L 3.6 - 11.2 11/27 Specimen Type: BLOOD No comment entered. Ordering Provider: LIDIA SWANSON Report Released Date/Time: Nov 25, 2024 04:28 PM Reporting Lab: [place] [address] [facility] [address] Performing Lab: [address] [phone] [place] [address] CBC ERYTHROCYTE S [#/VOLUME] IN BLOOD BY AUTOMATED COUNT 4.19 10*6/u L 4.10 - 5.70 11/27 Specimen Type: BLOOD No comment entered. Ordering Provider: LIDIA SWANSON Report Released Date/Time: Nov 25, 2024 04:28 PM Reporting Lab: [place] [address] [facility] [address] Performing Lab: [place] [address] [facility] [phone] [place] [address] CBC HEMOGLOBIN [MASS/VOLUM E] IN BLOOD 13.7 g/dL 13.1 - 16.8 11/27 Specimen Type: BLOOD No comment entered. Ordering Provider: LIDIA SWANSON Report Released Date/Time: Nov 25, 2024 04:28 PM Reporting Lab: [place] [address] [facility] [address] Performing Lab: [facility] [address] [facility] [address] [facility] CBC HEMATOCRIT [VOLUME FRACTION] OF BLOOD 42.3 38.2 - 48.4 11/27 Specimen Type: BLOOD No comment entered. Ordering Provider: LIDIA SWANSON Report Released Date/Time: Nov 25, 2024 04:28 PM Reporting Lab: [place] [address] [facility] [address] Performing Lab: [place] [address] [facility] [address] [facility] CBC MCV [ENTITIC VOLUME] BY AUTOMATED COUNT 101.0 fL 80.0 - 100.0 11/27 H Specimen Type: BLOOD No comment entered. Ordering Provider: LIDIA SWANSON Report Released Date/Time: Nov 25, 2024 04:28 PM Reporting Lab: [place] [address] [facility] [address] Performing Lab: [place] [address] [facility] [address] [facility] CBC MCH [ENTITIC MASS] BY AUTOMATED COUNT 32.7 pg 27.0 - 34.0 11/27 Specimen Type: BLOOD No comment entered. Ordering Provider: LIDIA SWANSON Report Released Date/Time: Nov 25, 2024 04:28 PM Reporting Lab: [place] [address] [facility] [address] Performing Lab: [address] [address] [facility] CBC MCHC [MASS/VOLUM E] BY AUTOMATED COUNT 32.4 g/dL 33.0 - 36.0 11/27 L Specimen Type: BLOOD No comment entered. Ordering Provider: LIDIA SWANSON Report Released Date/Time: Nov 25, 2024 04:28 PM Reporting Lab: [address] [address] [facility] [address] [facility] [address] [facility] CBC PLATELETS [#/VOLUME] IN BLOOD BY AUTOMATED COUNT 222 10*3/u L 150 - 400 11/27 Specimen Type: BLOOD No comment entered. Ordering Provider: LIDIA SWANSON Report Released Date/Time: Nov 25, 2024 04:28 PM Reporting Lab: [address] [address] Performing Lab: [address] [address] [facility] CBC PLATELET MEAN VOLUME [ENTITIC VOLUME] IN BLOOD BY AUTOMATED COUNT 10.6 fL 7.5 - 11.2 11/27 Specimen Type: BLOOD No comment entered. Ordering Provider: LIDIA SWANSON Report Released Date/Time: Nov 25, 2024 04:28 PM Reporting Lab: [place] [address] [facility] [address] Performing Lab: [address] [address] [facility] CBC ERYTHROCYTE DISTRIBUTIO N WIDTH [RATIO] BY AUTOMATED COUNT 14.1 11.8 - 15.1 11/27 Specimen Type: BLOOD No comment entered. Ordering Provider: LIDIA SWANSON Report Released Date/Time: Nov 25, 2024 04:28 PM Reporting Lab: [place] [address] [facility] [address] Performing Lab: [address] [address] [facility] CBC LYMPHOCYTES /100 LEUKOCYTES IN BLOOD BY AUTOMATED COUNT 17 11/27 Specimen Type: BLOOD No comment entered. Ordering Provider: LIDIA SWANSON Report Released Date/Time: Nov 25, 2024 04:28 PM Reporting Lab: [place] [address] [facility] [address] Performing Lab: [address] [address] [facility] CBC MONOCYTES/1 00 LEUKOCYTES IN BLOOD BY AUTOMATED COUNT 9 11/27 Specimen Type: BLOOD No comment entered. Ordering Provider: LIDIA SWANSON Report Released Date/Time: Nov 25, 2024 04:28 PM Reporting Lab: [facility] [address] [place] [phone] Performing Lab: [facility] [address] [facility] [address] [facility] CBC NEUTROPHILS /100 LEUKOCYTES IN BLOOD BY AUTOMATED COUNT 72 11/27 Specimen Type: BLOOD No comment entered. Ordering Provider: LIDIA SWANSON Report Released Date/Time: Nov 25, 2024 04:28 PM Reporting Lab: [facility] [address] [place] [address] Performing Lab: [address] [address] [facility] CBC EOSINOPHILS /100 LEUKOCYTES IN BLOOD BY AUTOMATED COUNT 2 11/27 Specimen Type: BLOOD No comment entered. Ordering Provider: LIDIA SWANSON Report Released Date/Time: Nov 25, 2024 04:28 PM Reporting Lab: [address] [address] Performing Lab: [address] [address] [facility] CBC BASOPHILS/1 00 LEUKOCYTES IN BLOOD BY AUTOMATED COUNT 1 11/27 Specimen Type: BLOOD No comment entered. Ordering Provider: LIDIA SWANSON Report Released Date/Time: Nov 25, 2024 04:28 PM Reporting Lab: [address] [address] Performing Lab: [address] [address] [facility] CBC LYMPHOCYTES [#/VOLUME] IN BLOOD BY AUTOMATED COUNT 1.61 10*3/u L 0.77 - 4.50 11/27 Specimen Type: BLOOD No comment entered. Ordering Provider: LIDIA SWANSON Report Released Date/Time: Nov 25, 2024 04:28 PM Reporting Lab: [address] [address] Performing Lab: [address] [address] [facility] CBC MONOCYTES [#/VOLUME] IN BLOOD BY AUTOMATED COUNT 0.84 10*3/u L 0.19 - 0.80 11/27 H Specimen Type: BLOOD No comment entered. Ordering Provider: LIDIA SWANSON Report Released Date/Time: Nov 25, 2024 04:28 PM Reporting Lab: [address] [address] Performing Lab: [address] [phone] CBC NEUTROPHILS [#/VOLUME] IN BLOOD BY AUTOMATED COUNT 6.83 10*3/u L 2.10 - 8.00 11/27 Specimen Type: BLOOD No comment entered. Ordering Provider: LIDIA SWANSON Report Released Date/Time: Nov 25, 2024 04:28 PM Reporting Lab: [address] [address] Performing Lab: [address] [address] [facility] CBC EOSINOPHILS [#/VOLUME] IN BLOOD BY AUTOMATED COUNT 0.16 10*3/u L 0.00 - 0.60 11/27 Specimen Type: BLOOD No comment entered. Ordering Provider: LIDIA SWANSON Report Released Date/Time: Nov 25, 2024 04:28 PM Reporting Lab: [address] [address] Performing Lab: [address] [address] [facility] CBC BASOPHILS [#/VOLUME] IN BLOOD BY AUTOMATED COUNT 0.06 10*3/u L 0.00 - 0.20 11/27 Specimen Type: BLOOD No comment entered. Ordering Provider: LIDIA SWANSON Report Released Date/Time: Nov 25, 2024 04:28 PM Reporting Lab: [address] [address] Performing Lab: [facility] [address] [place] [address] [facility] RENAL PANEL CREATININE [MASS/VOLUM E] IN SERUM OR PLASMA 1.20 mg/dL 0.7 - 1.3 11/27 Specimen Type: PLASMA Comment: No hemolysis noted. Ordering Provider: LIDIA SWANSON Report Released Date/Time: Nov 25, 2024 03:08 PM Reporting Lab: [address] [address] Performing Lab: [address] [address] [facility] RENAL PANEL UREA NITROGEN [MASS/VOLUM E] IN SERUM OR PLASMA 15.1 mg/dL 9.0 - 25.0 11/27 Specimen Type: PLASMA Comment: No hemolysis noted. Ordering Provider: LIDIA SWANSON Report Released Date/Time: Nov 25, 2024 03:08 PM Reporting Lab: [address] [address] Performing Lab: [address] [address] [facility] RENAL PANEL GLUCOSE [MASS/VOLUM E] IN SERUM OR PLASMA 137 mg/dL 72 - 99 11/27 H Specimen Type: PLASMA Comment: No hemolysis noted. Ordering Provider: LIDIA SWANSON Report Released Date/Time: Nov 25, 2024 03:08 PM Reporting Lab: [address] [address] Performing Lab: [address] [address] [facility] RENAL PANEL SODIUM [MOLES/VOLU ME] IN SERUM OR PLASMA 140 meq/L 136 - 145 11/27 Specimen Type: PLASMA Comment: No hemolysis noted. Ordering Provider: LIDIA SWANSON Report Released Date/Time: Nov 25, 2024 03:08 PM Reporting Lab: [address] [address] Performing Lab: [facility] [address] [place] [address] [facility] RENAL PANEL POTASSIUM [MOLES/VOLU ME] IN SERUM OR PLASMA 4.1 meq/L 3.5 - 5 11/27 Specimen Type: PLASMA Comment: No hemolysis noted. Ordering Provider: LIDIA SWANSON Report Released Date/Time: Nov 25, 2024 03:08 PM Reporting Lab: [address] [address] Performing Lab: [address] [address] [facility] RENAL PANEL CHLORIDE [MOLES/VOLU ME] IN SERUM OR PLASMA 106 meq/L 98 - 107 11/27 Specimen Type: PLASMA Comment: No hemolysis noted. Ordering Provider: LIDIA SWANSON Report Released Date/Time: Nov 25, 2024 03:08 PM Reporting Lab: [address] [address] Performing Lab: [address] [address] [facility] RENAL PANEL CARBON DIOXIDE, TOTAL [MOLES/VOLU ME] IN SERUM OR PLASMA 29 meq/L 22 - 31 11/27 Specimen Type: PLASMA Comment: No hemolysis noted. Ordering Provider: LIDIA SWANSON Report Released Date/Time: Nov 25, 2024 03:08 PM Reporting Lab: [address] [address] Performing Lab: [address] [address] [facility] RENAL PANEL CALCIUM [MASS/VOLUM E] IN SERUM OR PLASMA 8.9 mg/dL 8.4 - 10.4 11/27 Specimen Type: PLASMA Comment: No hemolysis noted. Ordering Provider: LIDIA SWANSON Report Released Date/Time: Nov 25, 2024 03:08 PM Reporting Lab: [facility] [address] [facility] [address] Performing Lab: [facility] [address] [facility] [address] [facility] RENAL PANEL PHOSPHATE [MASS/VOLUM E] IN SERUM OR PLASMA 2.3 mg/dL 2.3 - 4.7 11/27 Specimen Type: PLASMA Comment: No hemolysis noted. Ordering Provider: LIDIA SWANSON Report Released Date/Time: Nov 25, 2024 03:08 PM Reporting Lab: [facility] [address] [facility] [address] Performing Lab: [address] [address] [facility] RENAL PANEL ALBUMIN [MASS/VOLUM E] IN SERUM OR PLASMA 3.7 g/dL 3.4 - 5 11/27 Specimen Type: PLASMA Comment: No hemolysis noted. Ordering Provider: LIDIA SWANSON Report Released Date/Time: Nov 25, 2024 03:08 PM Reporting Lab: [facility] [address] [facility] [address] Performing Lab: [address] [address] [facility] RENAL PANEL GLOMERULAR FILTRATION RATE/1.73 SQ M.PREDICTED [VOLUME RATE/AREA] IN SERUM, PLASMA OR BLOOD BY CREATININE- BASED FORMULA (CKD-EPI 2020) 66.3 60 11/27 Specimen Type: PLASMA Comment: No hemolysis noted. Ordering Provider: LIDIA SWANSON Report Released Date/Time: Nov 25, 2024 03:08 PM Reporting Lab: [facility] [address] [facility] [address] Performing Lab: [facility] [address] [facility] [address] [facility] MAGNESIUM MAGNESIUM [MASS/VOLUM E] IN SERUM OR PLASMA 2.4 mg/dL 1.6 - 2.6 11/27 Specimen Type: PLASMA Comment: No hemolysis noted. Ordering Provider: LIDIA SWANSON Report Released Date/Time: Nov 26, 2024 09:37 AM Reporting Lab: [place] [address] [facility] [address] Performing Lab: [address] [address] [facility] FOLATE (STL-TX) FOLATE [MASS/VOLUM E] IN SERUM OR PLASMA 6.7 ng/mL 7 - 20 11/27 L Specimen Type: SERUM No comment entered. Ordering Provider: LIDIA SWANSON Report Released Date/Time: Nov 26, 2024 08:37 PM Reporting Lab: [address] [address] Performing Lab: [address] [address] [facility] B12 COBALAMIN (VITAMIN B12) [MASS/VOLUM E] IN SERUM OR PLASMA 418 pg/mL 213 - 816 11/27 Specimen Type: SERUM No comment entered. Ordering Provider: LIDIA SWANSON Report Released Date/Time: Nov 26, 2024 08:37 PM Reporting Lab: [address] [address] Performing Lab: [address] [address] [facility] MAGNESIUM MAGNESIUM [MASS/VOLUM E] IN SERUM OR PLASMA 2.8 mg/dL 1.6 - 2.6 11/27 H Specimen Type: PLASMA Comment: No hemolysis noted. Ordering Provider: ADINA HARDY Report Released Date/Time: Nov 27, 2024 05:33 AM Reporting Lab: [place] [address] [facility] [address] Performing Lab: [address] [address] [facility] PHOSPHOROU S PHOSPHATE [MASS/VOLUM E] IN SERUM OR PLASMA 4.1 mg/dL 2.3 - 4.7 11/27 Specimen Type: PLASMA Comment: No hemolysis noted. Ordering Provider: ADINA HARDY Report Released Date/Time: Nov 27, 2024 05:38 AM Reporting Lab: [place] [address] [facility] [address] Performing Lab: [place] [address] [facility] [address] [facility] BASIC METABOLIC PANEL CREATININE [MASS/VOLUM E] IN SERUM OR PLASMA 1.18 mg/dL 0.7 - 1.3 11/27 Specimen Type: PLASMA Comment: No hemolysis noted. Ordering Provider: ADINA HARDY Report Released Date/Time: Nov 27, 2024 05:33 AM Reporting Lab: [place] [address] [facility] [address] Performing Lab: [place] [address] [facility] [address] [facility] BASIC METABOLIC PANEL UREA NITROGEN [MASS/VOLUM E] IN SERUM OR PLASMA 13.7 mg/dL 9.0 - 25.0 11/27 Specimen Type: PLASMA Comment: No hemolysis noted. Ordering Provider: ADINA HARDY Report Released Date/Time: Nov 27, 2024 05:33 AM Reporting Lab: [place] [address] [facility] [address] Performing Lab: [place] [address] [facility] [address] [facility] BASIC METABOLIC PANEL GLUCOSE [MASS/VOLUM E] IN SERUM OR PLASMA 106 mg/dL 72 - 99 11/27 H Specimen Type: PLASMA Comment: No hemolysis noted. Ordering Provider: ADINA HARDY Report Released Date/Time: Nov 27, 2024 05:33 AM Reporting Lab: [place] [address] [facility] [address] Performing Lab: [place] [address] [facility] [address] [facility] BASIC METABOLIC PANEL SODIUM [MOLES/VOLU ME] IN SERUM OR PLASMA 141 meq/L 136 - 145 11/27 Specimen Type: PLASMA Comment: No hemolysis noted. Ordering Provider: ADINA HARDY Report Released Date/Time: Nov 27, 2024 05:33 AM Reporting Lab: [place] [address] [facility] [address] Performing Lab: [address] [address] [facility] BASIC METABOLIC PANEL POTASSIUM [MOLES/VOLU ME] IN SERUM OR PLASMA 4.4 meq/L 3.5 - 5 11/27 Specimen Type: PLASMA Comment: No hemolysis noted. Ordering Provider: ADINA HARDY Report Released Date/Time: Nov 27, 2024 05:33 AM Reporting Lab: [place] [address] [facility] [address] Performing Lab: [place] [address] [facility] [address] [facility] BASIC METABOLIC PANEL CHLORIDE [MOLES/VOLU ME] IN SERUM OR PLASMA 104 meq/L 98 - 107 11/27 Specimen Type: PLASMA Comment: No hemolysis noted. Ordering Provider: ADINA HARDY Report Released Date/Time: Nov 27, 2024 05:33 AM Reporting Lab: [place] [address] [facility] [address] Performing Lab: [address] [address] [facility] BASIC METABOLIC PANEL CARBON DIOXIDE, TOTAL [MOLES/VOLU ME] IN SERUM OR PLASMA 26 meq/L 22 - 31 11/27 Specimen Type: PLASMA Comment: No hemolysis noted. Ordering Provider: ADINA HARDY Report Released Date/Time: Nov 27, 2024 05:33 AM Reporting Lab: [address] [address] Performing Lab: [facility] [address] [facility] [address] [facility] BASIC METABOLIC PANEL CALCIUM [MASS/VOLUM E] IN SERUM OR PLASMA 8.6 mg/dL 8.4 - 10.4 11/27 Specimen Type: PLASMA Comment: No hemolysis noted. Ordering Provider: ADINA HARDY Report Released Date/Time: Nov 27, 2024 05:33 AM Reporting Lab: [place] [address] [facility] [address] Performing Lab: [address] [address] [facility] BASIC METABOLIC PANEL GLOMERULAR FILTRATION RATE/1.73 SQ M.PREDICTED [VOLUME RATE/AREA] IN SERUM, PLASMA OR BLOOD BY CREATININE- BASED FORMULA (CKD-EPI 2020) 67.6 60 11/27 Specimen Type: PLASMA Comment: No hemolysis noted. Ordering Provider: ADINA HARDY Report Released Date/Time: Nov 27, 2024 05:33 AM Reporting Lab: [address] [address] Performing Lab: [address] [address] [facility] Vital Signs Combined list of inpatient and outpatient Vital Signs from Department of Defense and Veterans Affairs, ranging from 12 months to all on record, depending upon the facility. Vital Sign Value Date Comments Source SYSTOLIC BLOOD PRESSURE 123 11/28/2024 04:33:34 [facility] DIASTOLIC BLOOD PRESSURE 73 11/28/2024 04:33:34 [facility] PULSE OXIMETRY 93 % 11/28/2024 04:33:34 [facility] PAIN 0 11/28/2024 04:33:34 [facility] Zoraida [facility] TEMPERATURE 97.6 11/28/2024 04:33:34 [facility] PULSE 76 11/28/2024 04:33:34 [facility] RESPIRATION 18 11/28/2024 04:33:34 [facility] PAIN 0 11/27/2024 00:23:00 [facility] SYSTOLIC BLOOD PRESSURE 124 11/26/2024 01:32:36 [facility] DIASTOLIC BLOOD PRESSURE 67 11/26/2024 01:32:36 [facility] PULSE OXIMETRY 95 % 11/26/2024 01:32:36 [facility] PAIN 0 11/26/2024 01:32:36 [facility] TEMPERATURE 97 11/26/2024 01:32:36 [facility] PULSE 56 11/26/2024 01:32:36 [facility] RESPIRATION 18 11/26/2024 01:32:36 [facility] SYSTOLIC BLOOD PRESSURE 104 11/25/2024 14:50:04 [facility] DIASTOLIC BLOOD PRESSURE 70 11/25/2024 14:50:04 [facility] PULSE OXIMETRY 95 % 11/25/2024 14:50:04 [facility] TEMPERATURE 97.4 11/25/2024 14:50:04 [facility] PULSE 64 11/25/2024 14:50:04 [facility] RESPIRATION 16 11/25/2024 14:50:04 [facility] SYSTOLIC BLOOD PRESSURE 118 09/17/2024 13:59:41 [facility] DIASTOLIC BLOOD PRESSURE 75 09/17/2024 13:59:41 [facility] PULSE OXIMETRY 95 09/17/2024 13:59:41 [facility] WEIGHT 263.9 09/17/2024 13:59:41 [facility] BMI 33 kg/m2 09/17/2024 13:59:41 [facility] PAIN 0 09/17/2024 13:59:41 [facility] TEMPERATURE 97.5 09/17/2024 13:59:41 [facility] PULSE 81 09/17/2024 13:59:41 [place] [facility] RESPIRATION 20 09/17/2024 13:59:41 [facility] Encounters Combined list of: 1) Encounters from Department of [facility] facilities going backup to the last 18 months, not all [place] inpatient encounters are included; 2) Encounters from the Department of [facility] facilities going backup to 280 months. Location Location Details Encounter Type Encounter Number Reason For Visit Attending Provider ADM Date DC Date Status Disposition Source [facility] Outpatient Encounter [id number] 08/29 [facility] OFFICE O/P EST MOD 30 MIN [id number] Diagnos is: ICD-10- CM J44.9 Chronic obstruc tive pulmona ry disease , unspeci fied Ellis LUTHER NDRDANA 08/29 [facility] Outpatient Encounter [id number] 09/01 [facility] Outpatient Encounter [id number] 09/04 [facility] OFFICE O/P EST MOD 30 MIN [id number] Diagnos is: ICD-10- CM Z72.0 Tobacco use HUA SUTHERLAND 09/09 [facility] Outpatient Encounter [id number] 09/09 [facility] Outpatient Encounter [id number] YANNA HILLMAN 09/10 [facility] Outpatient Encounter [id number] OVERTURFWinter A 09/10 [facility] Outpatient Encounter [id number] 09/17 [facility] IMG RTA DETCJ/MNTR DS STAFF [id number] Diagnos is: ICD-10- CM Z13.5 Encount er for screeni ng for eye and ear disorde ELIU Tsai 09/17 [facility] Outpatient Encounter [id number] Diagnos is: ICD-10- CM Z13.5 Encount er for screeni ng for eye and ear disorde Emely Simeon 09/17 [facility] OFFICE O/P EST MOD 30 MIN [id number] Diagnos is: ICD-10- CM 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 Bessie GARCIA 09/17 [facility] CPTR OPHTH DX IMG POST SEGMT [id number] Diagnos is: ICD-10- CM H34.211 Partial retinal artery occlusi on, right eye LYNN WOODRUFF TTHEW C 09/17 [facility] OFFICE O/P EST MOD 30 MIN [id number] Diagnos is: ICD-10- CM R06.00 Dyspnea , unspeci fied OU,JIAFU 10/09 [facility] OFF[facility] O/P EST MOD 30 MIN [id number] Diagnos is: ICD-10- CM H34.211 Partial retinal artery occlusi on, right eye ABHINAV DUQUE 10/21 [facility] FUNDUS PHOTOGRAPH Y W/I&R [id number] Diagnos is: ICD-10- CM H35.9 Unspeci fied retinal disorde r JAMAR SMITH 10/21 [facility] OFF/OP CNSLTJ NEW/EST LOW 30 [id number] Diagnos is: ICD-10- CM Z86.010 Persona l history of colonic polyps Emely BRANDT 10/23 [facility] Outpatient Encounter [id number] 11/07 [facility] Outpatient Encounter [id number] 11/08 [facility] OFFICE O/P EST LOW 20 MIN [id number] Diagnos is: ICD-10- CM F17.210 Nicotin e depende nce, cigaret shara, uncompl icated HUA SUTHERLAND A 11/11 [facility] Outpatient Encounter [id number] 11/12 [facility] Outpatient Encounter [id number] 11/13 [facility] ACUPUNCT W/O STIMUL 15 MIN [id number] Diagnos is: ICD-10- CM F17.200 Nicotin e depende nce, unspeci fied, uncompl icated MYRTLE KAY 11/20 [facility] [id number] Diagnos is: ICD-10- CM Z71.89 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 ed behavioral health counselor ing RENETTA BLACK 12/11 [facility] Outpatient Encounter [id number] 12/16 [facility] OFFICE O/P EST MOD 30 MIN [id number] Diagnos is: ICD-10- CM I63.9 Cerebra l infarct ion, unspeci fied OU,JIAFU 12/18 [facility] Outpatient Encounter [id number] 12/19 [facility] Outpatient Encounter [id number] ELSI SCOTT 12/22 [facility] Outpatient Encounter [id number] ELSI SCOTT 12/22 [facility] ACUPUNCT W/O STIMUL 15 MIN [id number] Diagnos is: ICD-10- CM Z72.0 Tobacco use MYRTLE KAY 12/25 [facility] Outpatient Encounter [id number] 12/30 [facility] ACUPUNCT W/O STIMUL 15 MIN [id number] Diagnos is: ICD-10- CM Z72.0 Tobacco use MYRTLE KAY 01/01 [facility] MYOCRD STRAIN IMG SPCKL TRCK [id number] Diagnos is: ICD-10- CM 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 OU,JIAFU 01/02 [facility] Outpatient Encounter [id number] MYRTLE KAY 01/08 [facility] Outpatient Encounter [id number] 01/20 [facility] Outpatient Encounter [id number] 01/20 [facility] OFFICE O/P EST LOW 20 MIN [id number] [id number] Diagnos is: ICD-10- CM Z01.818 Encount er for other preproc edural examina fabricio TOVAR,ER IN A 01/21 [facility] Outpatient Encounter [id number] 01/21 [facility] OFF[facility] O/P EST SF 10 MIN [id number] Diagnos is: ICD-10- CM K63.5 Polyp of colon LYNN LEROY TTHEW H 01/21 [facility] Outpatient Encounter [id number] KEDAR FONTAINE 01/21 [facility] Outpatient Encounter [id number] ARNOLD MTZ 01/22 [facility] Outpatient Encounter [id number] [id number] 01/23 [facility] Outpatient Encounter [id number] [id number] 02/12 [facility] Outpatient Encounter [id number] 03/03 [facility] Outpatient Encounter [id number] [id number] Diagnos is: ICD-10- CM J44.9 Chronic obstruc tive pulmona ry disease , unspeci fied OUJIAFU 03/19 [facility] Outpatient Encounter [id number] Diagnos is: ICD-10- CM I63.9 Cerebra l infarct ion, unspeci fied RIZWANA CLOUD IL C 03/20 [facility] Outpatient Encounter [id number] OVERTURF,Winter BROWN A 03/30 [facility] Outpatient Encounter [id number] 04/08 [facility] OFFICE O/P EST MOD 30 MIN [id number] Diagnos is: ICD-10- CM J44.9 Chronic obstruc tive pulmona ry disease , unspeci fied Bessie GARCIA 04/08 [facility] Outpatient Encounter [id number] [id number] 04/10 [facility] Outpatient Encounter [id number] [id number] 9 Diagnos is: ICD-10- CM I63.9 Cerebra l infarct ion, unspeci fied DAYANAEllisRIZWANA Melton 04/16 [facility] Outpatient Encounter [id number] Bessie GARCIA 04/16 [facility] Outpatient Encounter [id number] [id number] 04/16 [facility] Outpatient Encounter [id number] [id number] 05/11 [facility] REM INTERROG DEV EVAL SCRMS [id number] [id number] 3 Diagnos is: ICD-10- CM G46.4 Cerebel lar stroke syndrom e DAYANAEllisRIZWANA Melton 05/11 [facility] Outpatient Encounter [id number] [id number] 05/13 [facility] Outpatient Encounter [id number] [id number] 05/14 [facility] Outpatient Encounter 60575-3.66 [id number] 05/18 [facility] Outpatient Encounter 59209-9.65 [id number] 0 Bessie GARCIA HERE 05/19 [facility] Outpatient Encounter 63843-1.66 [id number] 05/19 [facility] OFFICE O/P EST MOD 30 MIN 61102-1.65 [id number] Diagnos is: ICD-10- CM I48.0 Paroxys mal atrial fibrill ation Bessie GARCIA HERE 05/20 [facility] QNHP OL DIG ASSMT&MGMT 5-10 38974-3.65 [id number] Diagnos is: ICD-10- CM I48.91 Unspeci fied atrial fibrill ation ROSEANNE VIZCARRA 05/20 [facility] Outpatient Encounter [id number] [id number] 05/20 [facility] Outpatient Encounter 33646-6.65 [id number] 5 Diagnos is: ICD-10- CM I48.0 Paroxys mal atrial fibrill ation JACOBO TELLO 05/21 [facility] Outpatient Encounter 88026-3.65 [id number] 7 05/21 [facility] Outpatient Encounter 77946-2.65 [id number] 4 Diagnos is: ICD-10- CM G46.4 Cerebel lar stroke syndrom e CINDY SMILEY 05/22 [facility] Outpatient Encounter 43882-0.65 [id number] 6 ZULEMA MORRISON ANY N 05/22 [facility] Outpatient Encounter 91038-4.66 [id number] 05/25 [facility] Outpatient Encounter 97141-6.66 [id number] 05/25 [facility] Outpatient Encounter 60700-8.66 [id number] 06/05 [facility] Outpatient Encounter 10077-1.65 [id number] 1 ZULEMA MORRISON ANY N 06/05 [facility] Outpatient Encounter 32383-6.66 [id number] 06/09 [facility] MTMS 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 15 MIN 75262-9.65 [id number] Diagnos is: ICD-10- CM Z51.81 Encount er for therape utic drug level monitor ROSEANNE Boswell 06/15 [facility] Outpatient Encounter 69650-6.65 [id number] 5 KALEB MORRISONBarbie VIRGEN N 06/15 [facility] MTMS BY PHARM EST 15 MIN 37361-3.65 [id number] Diagnos is: ICD-10- CM Z51.81 Encount er for therape utic drug level monitor ROSEANNE Boswell M 07/06 [facility] Outpatient Encounter [id number] [id number] 07/30 [facility] Outpatient Encounter [id number] [id number] 4 07/30 [facility] REM INTERROG DEV EVAL SCRMS 26801-1.65 [id number] 7 Diagnos is: ICD-10- CM G46.4 Cerebel lar stroke syndrom e PANDA,RIZWANA SANTIAGO C 07/31 [facility] Outpatient Encounter 32717-9.65 [id number] Bessie GARCIA 07/31 [facility] Outpatient Encounter 70824-7.66 [id number] 08/03 [facility] Outpatient Encounter 47212-0.65 [id number] 9 Diagnos is: ICD-10- CM I48.0 Paroxys mal atrial fibrill atJACOBO Benítez 08/03 [facility] Outpatient Encounter 15443-7.66 [id number] 08/05 [facility] Outpatient Encounter 23062-0.66 [id number] 08/07 [facility] Outpatient Encounter [id number] [id number] 08/07 [facility] OFFICE O/P EST MOD 30 MIN 19952-3.65 [id number] Diagnos is: ICD-10- CM J44.1 Chronic obstruc tive pulmona ry disease w (acute) exacerb Bessie Carpenter HERE08/07 [facility] MTMS BY PHARM EST 15 MIN 19065-3.65 [id number] Diagnos is: ICD-10- CM Z51.81 Encount er for therape utic drug level monitor ROSEANNE Boswell 08/10 [facility] Outpatient Encounter 79522-1.65 [id number] 2 Bessie GARCIA 08/12 [facility] Outpatient Encounter 35897-8.65 [id number] 1 08/28 [facility] OFFICE O/P EST MOD 30 MIN 55946-1.65 [id number] 1 Diagnos is: ICD-10- CM R06.00 Dyspnea , unspeci fied MAGO ROBERTSON T 08/28 [facility] Outpatient Encounter 78274-4.65 [id number] 0 09/01 [facility] Outpatient Encounter 96834-0.65 [id number] 4 09/02 [facility] Outpatient Encounter 92531-0.65 [id number] 9 PRINCE,KALEBF ANY N 09/04 [facility] SPACER WITHOUT MASK 43462-2.65 [id number] 9 Diagnos is: ICD-10- CM J44.9 Chronic obstruc tive pulmona ry disease , unspeci fied MAGO ROBERTSON DT T 09/16 [facility] OFFICE O/P EST MOD 30 MIN 31020-7.65 [id number] 8 Diagnos is: ICD-10- CM I48.0 Paroxys mal atrial fibrill ation URIEL SHEPHERD D 09/17 [facility] Outpatient Encounter 17362-5.65 [id number] 5 09/21 [facility] SYNCH AUDIO-ONLY NEW HIGH 60 08011-8.65 [id number] 9 Diagnos is: ICD-10- CM I48.0 Paroxys mal atrial fibrill ation RIZWANA CLOUD IL C 09/21 [facility] Outpatient Encounter 37300-5.65 [id number] 5 09/22 [facility] Outpatient Encounter 43694-7.65 [id number] 7 09/22 [facility] Outpatient Encounter [id number] [id number] 4 09/22 [facility] PH1 ASSMT&MGMT NQHP 5-10 31615-4.65 [id number] 5 Diagnos is: ICD-10- CM Z02.9 Encount er for adminis trative examina tions, unspeci Geronimo Dunn 09/23 [facility] PH1 ASSMT&MGMT NQHP 21-30 12007-6.65 [id number] 7 Diagnos is: ICD-10- CM I25.10 Athscl heart disease of [place] coronar y artery w/o ang pctrs DUNCAN IRIZARRY 09/23 [facility] Outpatient Encounter [id number] [id number] 09/29 [facility] Outpatient Encounter 00332-0.65 [id number] 5 Bessie GARCIA 10/06 [facility] Outpatient Encounter 48643-1.65 [id number] 10/20 [facility] OFF/OP CONSLTJ NEW/EST HI 55 66499-9.65 [id number] 296 Diagnos is: ICD-10- CM I48.19 Other persist ent atrial fibrill ation RIZWANA CLOUD 10/20 [facility] ASSMT&MGMT NQHP 21-30 77895-8.65 [id number] 3 Diagnos is: ICD-10- CM I48.0 Paroxys mal atrial fibrill ation ARTEMIO BARNETT 10/23 [facility] 1 ASSMT&MGMT NQHP 21-30 58026-2.65 [id number] 7 Diagnos is: ICD-10- CM I48.0 Paroxys mal atrial fibrill ation Winter ERICKSON 11/02 [facility] PLACE NEEDLE IN VEIN 35944-6.14 [id number] 8 Diagnos is: ICD-10- CM I48.19 Other persist ent atrial fibrill ation ABBY PETTY 11/06 [facility] SYNCH AUDIO-ONLY EST MOD 30 72593-8.65 [id number] 3 Diagnos is: ICD-10- CM I48.19 Other persist ent atrial fibrill ation RIZWANA CLOUD C 11/09 [facility] Outpatient Encounter 72768-2.28 [id number] 8 11/20 [facility] PH1 ASSMT&MGMT NQHP - 68194-5.65 [id number] 2 Diagnos is: ICD-10- CM G46.4 Cerebel lar stroke syndrom e Winter ERICKSON 11/20 [facility] Restoratio n of Cardiac Rhythm, Single 48963-1.06 [id number] 9 Admit Reason: ATRIAL FIBRILA TION MARIBEL ESTES 11/25 [facility] Inpatient Encounter 31792-5.65 [id number] 2 11/25 [facility] Inpatient Encounter 23584-1.65 [id number] 2 Diagnos is: ICD-10- CM I48.91 Unspeci fied atrial fibrill ation JOSE DUPONT 11/25 [facility] Inpatient Encounter 41162-9.65 [id number] 1 KIRSTEN DAN 11/25 [facility] Inpatient Encounter 25673-5.65 [id number] 2 BAKARI GRANADOS 11/25 [facility] Inpatient Encounter 95988-2.65 [id number] 7 BAKARI GRANADOS 11/25 [facility] Inpatient Encounter 82735-1.65 [id number] 3 BAKARI GRANADOS 11/25 [facility] Inpatient Encounter 90665-9.65 [id number] 1 BABRARAEDWARDO STAPLETON M 11/25 [facility] Inpatient Encounter 83862-2.65 [id number] 0 BARBARAEDWARDO STAPLETON NA M 11/25 [facility] Inpatient Encounter 83493-9.65 [id number] 8 BARBARAFELII NA M 11/25 [facility] Inpatient Encounter 14321-7.65 [id number] 6 BARBARAEDWARDO STAPLETON NA M 11/26 [facility] IP/OBS CNSLTJ NEW/EST MOD 60 93625-5.65 [id number] 2 Diagnos is: ICD-10- CM I48.0 Paroxys mal atrial fibrill ation JOSE DUPONT 11/26 [facility] Inpatient Encounter 86741-4.65 [id number] 1 EDWARDO JIMENEZ 11/26 [facility] Inpatient Encounter 36887-3.65 [id number] 7 NULL,ANDREA FERNANDEZ N 11/26 [facility] Inpatient Encounter 45824-3.65 [id number] 8 NULL,ANDREA FERNANDEZ N 11/26 [facility] Inpatient Encounter 81029-1.65 [id number] 1 NULL,ANDREA FERNANDEZ N 11/26 [facility] NQHP OL DIG ASSMT&MGMT 5-10 94987-5.65 [id number] 0 Diagnos is: ICD-10- CM I48.0 Paroxys mal atrial fibrill ation LEFTY MAYA 11/26 [facility] MTMS BY PHARM ADDL 15 MIN 64907-7.65 [id number] 9 Diagnos is: ICD-10- CM Z51.81 Encount er for therape utic drug level monitor LEFTY Garrett 11/26 [facility] Inpatient Encounter 85667-1.65 [id number] 5 11/26 [facility] Inpatient Encounter 24346-6.65 [id number] 7 NULL,ANDREA FERNANDEZ N 11/26 [facility] Inpatient Encounter 81791-6.65 [id number] 3 JOHANNY SY 11/26 [facility] Inpatient Encounter 25988-4.65 [id number] 5 JOHANNY SY 11/26 [facility] Inpatient Encounter 63616-2.65 [id number] 9 BARBARAEDWARDO STAPLETON M 11/26 [facility] Inpatient Encounter 20176-8.65 [id number] 6 BARBARAEWDARDO STAPLETON M 11/27 [facility] Inpatient Encounter 32070-6.65 [id number] 6 BARBARAEDWARDO STAPLETON M 11/27 [facility] Inpatient Encounter 81525-0.65 [id number] 3 BARBARAEDWARDO STAPLETON M 11/27 [facility] Inpatient Encounter 92091-9.65 [id number] 3 NULL,ANDREA JIM N 11/27 [facility] Inpatient Encounter 63868-2.65 [id number] 9 NULL,ANDREA FERNANDEZ N 11/27 [facility] Inpatient Encounter 82493-3.65 [id number] 0 NULL,ANDREA FERNANDEZ N 11/27 [facility] SBSQ HOSP IP/OBS MODERATE 35 10339-9.65 [id number] 2 Diagnos is: ICD-10- CM I48.0 Paroxys mal atrial fibrill atJOSE Cardenas 11/27 [facility] Inpatient Encounter 11985-7.65 [id number] 0 11/27 [facility] Inpatient Encounter 24684-6.65 [id number] 5 11/27 [facility] OFFICE O/P EST MOD 30 MIN 93895-2.65 [id number] 8 Diagnos is: ICD-10- CM Z01.818 Encount er for other preproc edural examina tiMEGAN Cooney 11/27 [facility] PT EDUCATION NOC INDIVID 82149-8.65 [id number] 8 Diagnos is: ICD-10- CM I48.3 Typical atrial flutter JACOBO TELLO 11/27 [facility] Inpatient Encounter 80579-2.65 [id number] 6 SHAYE FISHER 11/27 [facility] Inpatient Encounter 49304-4.65 [id number] 2 ANA PAULA AMATO 11/27 [facility] 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 INDIVIDU 42729-4.65 [id number] 4 Diagnos is: ICD-10- CM Z71.81 Spiritu al or religio us behavioral health counselor AVINASH Navarro 11/27 [facility] Encounter 54801-6.65 [id number] 8 11/27 [facility] Inpatient Encounter 32288-2.65 [id number] [address] 11/27 [facility] Inpatient Encounter 82595-8.65 [id number] 3 MONCADATERRA 11/28 [facility] Inpatient Encounter 54004-1.65 [id number] 1 TERRA MONCADA 11/28 [facility] Inpatient Encounter 65521-5.65 [id number] 2 TERRA MONCADA 11/28 [facility] Inpatient Encounter 06254-7.65 [id number] 3 ALFRED OSORIO 11/28 [facility] Inpatient Encounter 41832-0.65 [id number] 8 FRANCIS RICKETTS 11/28 [facility] Inpatient Encounter 82721-7.65 [id number] 5 11/28 [facility] SBSQ HOSP IP/OBS MODERATE 35 33510-0.65 [id number] 9 Diagnos is: ICD-10- CM I48.0 Paroxys mal atrial fibrill URIEL Velasquez 11/28 [facility] Inpatient Encounter 32496-4.65 [id number] 2 ALFRED OSORIO A 11/28 [facility] Inpatient Encounter 63234-1.65 [id number] 8 ALFRED OSORIO A 11/28 [facility] Inpatient Encounter 29551-5.65 [id number] 9 LILIAMFRANCIS ZACARIAS N 11/28 [facility] Inpatient Encounter 23713-0.65 [id number] 0 MARIE OSORIOT A 11/28 [facility] Inpatient Encounter 30555-3.65 [id number] 1 ALFRED OSORIO A 11/28 [facility] Outpatient Encounter 27054-9.65 [id number] 8 11/30 [facility] Outpatient Encounter 95764-3.65 [id number] 9 11/30 [facility] Outpatient Encounter 40845-5.65 [id number] 7 11/30 [facility] En[facility] 20537-0.65 [id number] 6 11/30 [facility] OFF/OP EST MAY X REQ PHY/QHP 70261-7.65 [id number] Diagnos is: ICD-10- CM I48.0 Paroxys mal atrial fibrill ation MIKE MERCADO 12/02 [facility] Outpatient Encounter 39127-7.65 [id number] 6 12/03 [facility] Outpatient Encounter 18523-6.65 [id number] 2 12/06 [facility] SYNCH AUDIO-ONLY EST HIGH 40 35610-0.65 [id number] 3 Diagnos is: ICD-10- CM I48.0 Paroxys mal atrial fibrill ation RIZWANA CLOUD C 12/07 [facility] PH1 ASSMT&MGMT NQHP 21-30 46905-9.65 [id number] 8 Diagnos is: ICD-10- CM I48.0 Paroxys mal atrial fibrill ation RESHMANOISIS,ER IN K 12/07 [facility] Outpatient Encounter [id number] [id number] 12/09 [facility] REM INTERROG DEV EVAL SCRMS 11011-4.65 [id number] 9 Diagnos is: ICD-10- CM I48.0 Paroxys mal atrial fibrill ation RIZWANA CLOUD C 12/09 [facility] PH1 ASSMT&MGMT NQHP 5-10 16552-5.65 [id number] 0 Diagnos is: ICD-10- CM I48.0 Paroxys mal atrial fibrill ation Winter ERICKSON 12/14 [facility] Social History Combined list of available smoking, tobacco, and other social history from 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 Social History Type Response Date Comment Sourc e Tobacco [facility] History of tobacco use VA-TOBACCO NEVER USED OTHER TYPE 04/08/2024 [facility] History of tobacco use VA-TOBACCO USER EVERY DAY 02/15/2023 [facility] History of tobacco use VA-TOBACCO USER EVERY DAY 02/19/2022 [facility] History of tobacco use VA-TOBACCO QUIT < 1 YEAR 10/11/2020 [facility] History of tobacco use QUIT TOBACCO IN THE LAST 12 MONTHS 02/14/2017 [facility] History of tobacco use YAKELIN TOBACCO MEDS INTERESTED 09/05/2015 [facility] History of tobacco use YAKELIN TOBACCO MEDS INTERESTED 08/24/2014 [facility] History of tobacco use YAKELIN TOBACCO MEDS INTERESTED 08/05/2013 [facility] Plan of Care List of future care activities from Department of [place] [facility] Affairs facilities. Additional future care activities may be listed in the Assessment and Plan section. Date/Time Care Activity Care Activity Detail Chanelli ty 01/25/2025 AMBULATORY - MEDICINE AMBULATORY - MEDICI NE [facility]
--- OUTSIDE RECORDS SUMMARY | 2024-12-14 17:54 | XMS_ITS | Clinical Summary ---
Author Organization [facility] Address [address] [place] [address] Care Team Providers Care Radar Engineer Name Role Phone Jm Cedillo MD Primary Care Provider [phone] Social History Tobacco Use Types Packs/Day Years [...] 10:57 AM CDT Height 190.5 cm (6' 3) 08/19/2015 10:57 AM CDT Body Mass Index [...] Health Maintenance Insurance MEDICARE MEDICAID Care Teams Radar Engineer Relationship Specialty Start Date End Date Jm Cedillo MD PCP - General INTERNAL MEDICINE 12/23/18
--- OUTSIDE RECORDS SUMMARY | 2024-12-14 17:54 | XMS_ITS | Encounter Summary ---
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 ([place] Organization Department of [facility] ([place]) Address [address] [place] [address] Care Team Providers Care Director Of [employer] Name Role Phone JESSICA KAY Primary Care [...] ACTIV E [place] HIGH Jun 03, 2013 [phone] JOSEPHINE DiamondROSITA SPOUSE MEDICARE (WNR) MEDICARE (M) PART A Jul 04, 2016 PART A [id number] JOSEPHINE DiamondELI PATIENT MEDICARE (WNR) MEDICARE (M) PART B Jul 04, 2016 PART B [id number] RICHARDSO N,ELI PATIENT MEDICARE (WNR) MEDICARE (M) PART A Jul 04, 2016 PART A [id number] RICHARDSO N,ELI PATIENT MEDICARE (WNR) MEDICARE (M) PART B Jul 04, 2016 PART B [id number] RICHARDSO N,ELI PATIENT MEDICARE (WNR) MEDICARE (M) PART B Jul 04, 2016 PART B [id number] [phone] RICHARDSO N,ELI PATIENT MEDICARE (WNR) MEDICARE (M) PART A Jul 04, 2016 PART A [id number] RICHARDSO N,ELI PATIENT MEDICARE (WNR) MEDICARE (M) PART A Jul 04, 2016 PART A [id number] RICHARDSO N,ELI PATIENT MEDICARE (WNR) MEDICARE (M) PART B Jul 04, 2016 PART B [id number] [phone] RICHARDSO N,ELI PATIENT PRIME THERAPEUTI CS RX PRESCRIPT ION RX PLAN Jun 03, 2013 [id number] [phone] EMMASO N,ELI PATIENT Selected Encounter This section includes the information on record at [place] for the Encounter. Date/Time Encounter Type Encounter Description Reason Provider Source Dec 14, 2024 04:24 PM PH1 ASSMT&MGMT NQHP 5-10 TELEPHONE/MEDICIN E ICD-10-CM I48.0 Paroxysmal atrial fibrillation GUADALUPE ERICKSON Redd Encounter Template Text not used by [place] Assessments - Encounter Diagnoses This section includes the primary and secondary diagnoses documented for the Encounter. Date/Time Primary/Secondary Diagnosis Diagnosis Name Provider Source Dec 14, 2024 04:24 PM PRIMARY Paroxysmal atrial fibrillation DAVID ERICKSON [facility] Plan of Treatment: Future Appointments (+ 6 months) and Future Tests (+/- 45 days) The Plan of Treatment section includes future care activities for the patient from all [place] treatmentfacilities. This section includes future appointments and future orders which are active, pending or scheduled. Future Appointments This section includes appointments that were scheduled to occur 6 months from the date of the Encounter, up to a maximum of 20 appointments. The [facility] comes from all [facility]. Appointment Date/Time Appointment Type Appointme nt Facility Name Jan 25, 2025 11:05 AM AMBULATORY - MEDICINE [facility] Jan 27, 2025 06:00 AM AMBULATORY - NONE [facility] Jan 27, 2025 06:15 AM AMBULATORY - MEDICINE [facility] Jan 28, 2025 02:00 PM AMBULATORY - MEDICINE [facility] 2025 01:00 PM AMBULATORY - MEDICINE [facility] Active, Pending, and Scheduled Orders This section includes a listing of several types of active, pending, and scheduled orders, including clinic medications orders, diagnostic test orders, procedure orders and consult orders; where the start date of the order is 45 days before the date of the Encounter or 45 days after the date of theEncounter. The data comes from all [facility]. Test Date/Time Test Type Test Details Facility Name Nov 27, 2024 11:41 AM Procedure Order CP EKG STL CP EKG - STL Proc Bedside [facility] Lab Results: +/- 30 days of the encounter This section includes the Chemistry and Hematology Lab Results on record with [place] for the patient. Radiology Reports and Pathology Reports are provided separately, in subsequent sections. Lab Results This section contains the Chemistry/Hematology Results that were resulted 30 days before or 30 daysafter the date of the Encounter. Date/Time Source Result Type Result - Unit Interpretation Reference Range Specimen Type Comment Nov 28, 2024 08:16 AM [facility] MAGNESIUM PLASMA Specimen Type: PLASMA Comment: No hemolysis noted. Ordering Provider: INOCENCIA TITUS Report Released Date/Time: Nov 27, 2024 07:13 PM Reporting Lab: [facility] [address] [facility] [address] Performing Lab: [facility] [address] [facility] [address] MAGNESIUM 2.1 mg/dL 1.6-2.6 Nov 28, 2024 08:16 AM [facility] RENAL PANEL PLASMA Specimen Type: PLASM A Comment: No hemolysis noted. Ordering Provider: INOCENCIA TITUS Report Released Date/Time: Nov 27, 2024 07:13 PM Reporting Lab: [facility] [address] [facility] [address] Performing Lab: [address] [address] CREATININE 1.15 mg/dL 0.7-1.3 UREA NITROGEN 13.3 mg/dL 9.0-25.0 GLUCOSE 104 mg/dL H 72-99 SODIUM 139 meq/L 136-145 POTASSIUM 4.1 meq/L 3.5-5 CHLORIDE 105 meq/L 98-107 CARBON DIOXIDE 28 meq/L 22-31 CALCIUM 9.0 mg/dL 8.4-10.4 PHOSPHOROUS 2.8 mg/dL 2.3-4.7 ALBUMIN 3.6 g/dL 3.4-5 EGFR (CKD-EPI 2020) 69.8 >60 Nov 27, 2024 06:35 PM [facility] CBC BLOOD Specimen Type: BLOOD No comment entered. Ordering Provider: LIDIA SWANSON Report Released Date/Time: Nov 25, 2024 04:28 PM Reporting Lab: [address] [address] Performing Lab: [address] [address] WBC 9.5 10*3/uL 3.6-11.2 RBC 4.19 10*6/uL [...] 20 Nov 27, 2024 02:46 PM [facility] RENAL PANEL PLASMA Specimen Type: PLASM A Comment: No hemolysis noted. Ordering Provider: LIDIA SWANSON Report Released Date/Time: Nov 25, 2024 03:08 PM Reporting Lab: [facility] [address] [place] [phone] Performing Lab: [address] [address] CREATININE 1.20 mg/dL 0.7-1.3 UREA NITROGEN 15.1 mg/dL 9.0-25.0 GLUCOSE 137 mg/dL H 72-99 SODIUM 140 meq/L 136-145 POTASSIUM 4.1 meq/L 3.5-5 CHLORIDE 106 meq/L 98-107 CARBON DIOXIDE 29 meq/L 22-31 CALCIUM 8.9 mg/dL 8.4-10.4 PHOSPHOROUS 2.3 mg/dL 2.3-4.7 ALBUMIN 3.7 g/dL 3.4-5 EGFR (CKD-EPI 2020) 66.3 >60 Nov 27, 2024 02:00 PM [facility] MAGNESIUM PLASMA Specimen Type: PLASM A Comment: No hemolysis noted. Ordering Provider: LIDIA SWANSON Report Released Date/Time: Nov 26, 2024 09:37 AM Reporting Lab: [address] [address] Performing Lab: [address] [address] MAGNESIUM 2.4 mg/dL 1.6-2.6 Nov 27, 2024 07:29 AM [facility] B12 SERUM Specimen Type: SERUM No comment entered. Ordering Provider: LIDIA SWANSON Report Released Date/Time: Nov 26, 2024 08:37 PM Reporting Lab: [facility] [address] [place] [phone] Performing Lab: [facility] [address] [place] [phone] B12 418 pg/mL 213-816 Nov 27, 2024 07:29 AM [facility] FOLATE ([facility]) SERUM Specimen Type: SERUM No comment entered. Ordering Provider: LIDIA SWANSON Report Released Date/Time: Nov 26, 2024 08:37 PM Reporting Lab: [facility] [address] [place] [phone] Performing Lab: [facility] [address] [place] [phone] FOLATE (L-MA) 6.7 ng/mL L 7-20 Nov 27, 2024 06:20 AM [facility] PHOSPHOROUS PLASMA Specimen Type: PLASM A Comment: No hemolysis noted. Ordering Provider: MARICRUZ HARDY Report Released Date/Time: Nov 27, 2024 05:38 AM Reporting Lab: [address] [address] Performing Lab: [facility] [address] [place] [phone] PHOSPHOROUS 4.1 mg/dL 2.3-4.7 Nov 27, 2024 06:20 AM [facility] MAGNESIUM PLASMA Specimen Type: PLASM A Comment: No hemolysis noted. Ordering Provider: MARICRUZ HARDY Report Released Date/Time: Nov 27, 2024 05:33 AM Reporting Lab: [address] [address] Performing Lab: [facility] [address] [place] [phone] MAGNESIUM 2.8 mg/dL H 1.6-2.6 Nov 27, 2024 06:20 AM [facility] BASIC METABOLIC PANEL PLASMA Specimen Type: PL ASMA Comment: No hemolysis noted. Ordering Provider: MARICRUZ HARDY Report Released Date/Time: Nov 27, 2024 05:33 AM Reporting Lab: [address] [address] Performing Lab: [facility] [address] [place] [phone] CREATININE 1.18 mg/dL 0.7-1.3 UREA NITROGEN 13.7 mg/dL 9.0-25.0 GLUCOSE 106 mg/dL H 72-99 SODIUM 141 meq/L 136-145 POTASSIUM 4.4 meq/L 3.5-5 CHLORIDE 104 meq/L 98-107 CARBON DIOXIDE 26 meq/L 22-31 CALCIUM 8.6 mg/dL 8.4-10.4 EGFR (CKD-EPI 2020) 67.6 >60 Nov 26, 2024 07:45 PM [facility] CBC BLOOD Specimen Type: BLOOD No comment entered. Ordering Provider: LIDIA SWANSON Report Released Date/Time: Nov 25, 2024 04:28 PM Reporting Lab: [address] [phone] Performing Lab: [address] [address] WBC 9.3 10*3/uL 3.6-11.2 RBC 4.37 10*6/uL [...] 20 Nov 26, 2024 02:14 PM [facility] RENAL PANEL PLASMA Specimen Type: PLASM A Comment: No hemolysis noted. Ordering Provider: LIDIA SWANSON Report Released Date/Time: Nov 25, 2024 03:08 PM Reporting Lab: [address] [phone] Performing Lab: [address] [address] CREATININE 1.21 mg/dL 0.7-1.3 UREA NITROGEN 13.4 mg/dL 9.0-25.0 GLUCOSE 118 mg/dL H 72-99 SODIUM 139 meq/L 136-145 POTASSIUM 4.4 meq/L 3.5-5 CHLORIDE 106 meq/L 98-107 CARBON DIOXIDE 30 meq/L 22-31 CALCIUM 9.0 mg/dL 8.4-10.4 PHOSPHOROUS 1.8 mg/dL L 2.3-4.7 ALBUMIN 3.6 g/dL 3.4-5 EGFR (CKD-EPI 2020) 65.6 >60 Nov 26, 2024 02:00 PM [facility] MAGNESIUM PLASMA Specimen Type: PLASM A Comment: No hemolysis noted. Ordering Provider: LIDIA SWANSON Report Released Date/Time: Nov 26, 2024 09:37 AM Reporting Lab: [address] [phone] Performing Lab: [address] [phone] MAGNESIUM 1.8 mg/dL 1.6-2.6 Nov 25, 2024 09:00 PM [facility] MRSA SURVL NARES DNA NARES [...] 25, 2024 08:59 PM Reporting Lab: [address] [address] Performing Lab: [facility] [address] [facility] [address] MRSA SURVL NARES DNA Negative Negative Nov 25, 2024 07:05 PM [facility] CBC BLOOD Specimen Type: BLOOD No comment entered. Ordering Provider: LIDIA SWANSON Report Released Date/Time: Nov 25, 2024 04:28 PM Reporting Lab: [address] [address] Performing Lab: [place] [address] [address] WBC 8.8 10*3/uL 3.6-11.2 RBC 4.00 10*6/uL [...] 20 Nov 25, 2024 06:43 PM [facility] MAGNESIUM PLASMA Specimen Type: PLASM A Comment: No hemolysis noted. Ordering Provider: LIDIA SWANSON Report Released Date/Time: Nov 25, 2024 04:22 PM Reporting Lab: [place] [address] [phone] Performing Lab: [address] [address] MAGNESIUM 1.9 mg/dL 1.6-2.6 Nov 25, 2024 06:43 PM [facility] PHOSPHOROUS PLASMA Specimen Type: PLASM A Comment: No hemolysis noted. Ordering Provider: LIDIA SWANSON Report Released Date/Time: Nov 25, 2024 04:28 PM Reporting Lab: [facility] [address] [place] [phone] Performing Lab: [address] [address] PHOSPHOROUS 2.5 mg/dL 2.3-4.7 Nov 25, 2024 06:43 PM [facility] COMPREHENSIVE METABOLIC PANEL PLASMA Specimen Type: PLASMA Comment: No hemolysis noted. Ordering Provider: LIDIA SWANSON Report Released Date/Time: Nov 25, 2024 04:22 PM Reporting Lab: [address] [address] Performing Lab: [address] [address] CREATININE 1.27 mg/dL 0.7-1.3 UREA NITROGEN 15.7 [...] L 8-40 EGFR (CKD-EPI 2020) 61.9 >60 Encounter Notes: All associated encounter notes This section contains the clinical notes associated to the Encounter. Date/Time Encounter Note(s) Provider Source Dec 14, 2024 04:24 PM CARDIOLOGY TELEPHO NE ENCOUNTER NOTE: LOCAL TITLE: CARDIOLOGY TELEPHONE NOTE ST STANDARD TITLE: CARDIOLOGY TELEPHONE ENCOUNTER NOTE DATE OF NOTE: DEC 14, 2024@16:24 ENTRY DATE: DEC 14, 2024@16:24:22 AUTHOR: VERNA ERICKSON EXP COSIGNER: URGENCY: STATUS: COMPLETED Vet called with c/o SOB with any exertion. Vet was instructed that he probably needs to seek emergency care. He reports he is ok as long as I am not doing anything. He states he is compliant with all meds/ apixaban and dofetilide in particular. Vet was encouraged to seek ER - He doesn't know if he is in afib. He does have the emergency reporting # Length of call/reveiw of chart 10 min. /es/ Verna Erickson,RN,BSN Registered Nurse Signed: 12/14/2024 16:28 Receipt Acknowledged By: * AWAITING SIGNATURE * JOSE CLOUD JACQUELINE M [facility]
--- OUTSIDE RECORDS SUMMARY | 2024-12-14 17:54 | XMS_ITS | Encounter Summary ---
Author Name [facility] [place] Organization [facility] [place] Address [address] [place] [address] Care Team Providers Care Heel Gouger Name Role Phone JESSICA KAY Primary Care [...] ACTIV E [place] HIGH Jun 03, 2013 [phone] JOSEPHINE DiamondROSITA SPOUSE MEDICARE (WNR) MEDICARE (M) PART B Jul 04, 2016 PART B [id number] HERMES GRIMMY PATIENT MEDICARE (WNR) MEDICARE (M) PART A Jul 04, 2016 PART A [id number] [phone] RICHARDSO N,ELI PATIENT MEDICARE (WNR) MEDICARE (M) PART A Jul 04, 2016 PART A [id number] EMMASO N,ELI PATIENT MEDICARE (WNR) MEDICARE (M) PART A Jul 04, 2016 PART A [id number] [phone] EMMASO N,ELI PATIENT MEDICARE (WNR) MEDICARE (M) PART B Jul 04, 2016 PART B [id number] [phone] EMMASO N,ELI PATIENT MEDICARE (WNR) MEDICARE (M) PART B Jul 04, 2016 PART B [id number] EMMASO N,ELI PATIENT MEDICARE (WNR) MEDICARE (M) PART A Jul 04, 2016 PART A [id number] EMMASO N,ELI PATIENT MEDICARE (WNR) MEDICARE (M) PART B Jul 04, 2016 PART B [id number] EMMASO NHERMESY PATIENT PRIME THERAPEUTI CS RX PRESCRIPT ION RX PLAN Jun 03, 2013 [id number] [phone] EMMASO N,ELI PATIENT Selected Encounter This section includes the information on record at [place] for the Encounter. Date/Time Encounter Type Encounter Description Reason Provider Source Nov 28, 2024 11:05 AM [facility] IP/OBS MODERATE 35 CARDIOLOGY ICD-10-CM I48.0 Paroxysmal atrial fibrillation RITA SHEPHERD IHRedd Encounter Template Text not used by [place] Assessments - Encounter Diagnoses This section includes the primary and secondary diagnoses documented for the Encounter. Date/Time Primary/Secondary Diagnosis Diagnosis Name Provider Source Nov 28, 2024 11:15 AM PRIMARY Paroxysmal atrial fibrillation BARB GROSS [facility] Plan of Treatment: Future Appointments [...] 20 appointments. The data comes from all [place] treatment facilities. Appointment Date/Time Appointment Type Appointme nt Facility Name Jan 25, 2025 11:05 AM AMBULATORY - MEDICINE [facility] Jan 27, 2025 06:00 AM AMBULATORY - NONE [facility] Jan 27, 2025 06:15 AM AMBULATORY - MEDICINE [facility] Jan 28, 2025 02:00 PM AMBULATORY - MEDICINE [facility] 2025 01:00 PM AMBULATORY - MEDICINE [facility] Active, Pending, and Scheduled Orders This section includes a listing of several types of active, pending, and scheduled orders, including clinic medications orders, diagnostic test orders, procedure orders and consult orders; where the start date of the order is 45 days before the date of the Encounter or 45 days after the date of theEncounter. The data comes from all [place] treatment facilities. Test Date/Time Test Type Test Details Facility Name October 20, 2024 04:34 PM Procedure Order CP ELECTRO PHYSIOLOGY STL CP ELECTROPHYSIOLOGY STL Proc [facility] October 23, 2024 02:40 PM Procedure Order CP SWATI ECH OCARDIOGRAM JOSELYN SWATI FUTURE CARE ECHOCARDIOGRAM STL Proc [facility] Nov 27, 2024 11:41 AM Procedure Order CP EKG STL CP EKG - STL Proc Bedside [facility] Lab Results: +/- 30 days [...] Nov 28, 2024 08:16 AM [facility] MAGNESIUM PLASMA Specimen Type: PLASMA Comment: No hemolysis noted. Ordering Provider: INOCENCIA TITUS Report Released Date/Time: Nov 27, 2024 07:13 PM Reporting Lab: [facility] [address] [facility] [address] Performing Lab: [facility] [address] [facility] [address] MAGNESIUM 2.1 mg/dL 1.6-2.6 Nov 28, 2024 08:16 AM [facility] RENAL PANEL PLASMA Specimen Type: PLASM A Comment: No hemolysis noted. Ordering Provider: INOCENCIA TITUS Report Released Date/Time: Nov 27, 2024 07:13 PM Reporting Lab: [address] [address] Performing Lab: [address] [address] CREATININE 1.15 mg/dL 0.7-1.3 UREA NITROGEN 13.3 mg/dL 9.0-25.0 GLUCOSE 104 mg/dL H 72-99 SODIUM 139 meq/L 136-145 POTASSIUM 4.1 meq/L 3.5-5 CHLORIDE 105 meq/L 98-107 CARBON DIOXIDE 28 meq/L 22-31 CALCIUM 9.0 mg/dL 8.4-10.4 PHOSPHOROUS 2.8 mg/dL 2.3-4.7 ALBUMIN 3.6 g/dL 3.4-5 EGFR (CKD-EPI 2020) 69.8 >60 Nov 27, 2024 06:35 PM [facility] CBC BLOOD Specimen Type: BLOOD No comment entered. Ordering Provider: LIDIA SWANSON Report Released Date/Time: Nov 25, 2024 04:28 PM Reporting Lab: [address] [address] Performing Lab: [address] [address] WBC 9.5 10*3/uL 3.6-11.2 RBC 4.19 10*6/uL [...] Nov 27, 2024 02:46 PM [facility] RENAL PANEL PLASMA Specimen Type: PLASM A Comment: No hemolysis noted. Ordering Provider: LIDIA SWANSON Report Released Date/Time: Nov 25, 2024 03:08 PM Reporting Lab: [address] [address] Performing Lab: [address] [address] CREATININE 1.20 mg/dL 0.7-1.3 UREA NITROGEN 15.1 mg/dL 9.0-25.0 GLUCOSE 137 mg/dL H 72-99 SODIUM 140 meq/L 136-145 POTASSIUM 4.1 meq/L 3.5-5 CHLORIDE 106 meq/L 98-107 CARBON DIOXIDE 29 meq/L 22-31 CALCIUM 8.9 mg/dL 8.4-10.4 PHOSPHOROUS 2.3 mg/dL 2.3-4.7 ALBUMIN 3.7 g/dL 3.4-5 EGFR (CKD-EPI 2020) 66.3 >60 Nov 27, 2024 02:00 PM [facility] MAGNESIUM PLASMA Specimen Type: PLASM A Comment: No hemolysis noted. Ordering Provider: LIDIA SWANSON Report Released Date/Time: Nov 26, 2024 09:37 AM Reporting Lab: [address] [address] Performing Lab: [address] [address] MAGNESIUM 2.4 mg/dL 1.6-2.6 Nov 27, 2024 07:29 AM [facility] B12 SERUM Specimen Type: SERUM No comment entered. Ordering Provider: LIDIA SWANSON Report Released Date/Time: Nov 26, 2024 08:37 PM Reporting Lab: [facility] [address] [facility] [address] Performing Lab: [facility] [address] [facility] [address] B12 418 pg/mL 213-816 Nov 27, 2024 07:29 AM [facility] FOLATE ([facility]) SERUM Specimen Type: SERUM No comment entered. Ordering Provider: LIDIA SWANSON Report Released Date/Time: Nov 26, 2024 08:37 PM Reporting Lab: [facility] [address] [facility] [address] Performing Lab: [place] [address] [facility] [address] FOLATE ([facility]) 6.7 ng/mL L 7-20 Nov 27, 2024 06:20 AM [facility] PHOSPHOROUS PLASMA Specimen Type: PLASM A Comment: No hemolysis noted. Ordering Provider: MARICRUZ HARDY Report Released Date/Time: Nov 27, 2024 05:38 AM Reporting Lab: [facility] [address] [facility] [address] Performing Lab: [facility] [address] [facility] [address] PHOSPHOROUS 4.1 mg/dL 2.3-4.7 Nov 27, 2024 06:20 AM [facility] MAGNESIUM PLASMA Specimen Type: PLAS MA Comment: No hemolysis noted. Ordering Provider: MARICRUZ HARDY Report Released Date/Time: Nov 27, 2024 05:33 AM Reporting Lab: [facility] [address] [facility] [address] Performing Lab: [place] [address] [facility] [address] MAGNESIUM 2.8 mg/dL H 1.6-2.6 Nov 27, 2024 06:20 AM [facility] BASIC METABOLIC PANEL PLASMA Specimen Type: PL ASMA Comment: No hemolysis noted. Ordering Provider: MARICRUZ HARDY Report Released Date/Time: Nov 27, 2024 05:33 AM Reporting Lab: [address] [address] Performing Lab: [address] [address] CREATININE 1.18 mg/dL 0.7-1.3 UREA NITROGEN 13.7 mg/dL 9.0-25.0 GLUCOSE 106 mg/dL H 72-99 SODIUM 141 meq/L 136-145 POTASSIUM 4.4 meq/L 3.5-5 CHLORIDE 104 meq/L 98-107 CARBON DIOXIDE 26 meq/L 22-31 CALCIUM 8.6 mg/dL 8.4-10.4 EGFR (CKD-EPI 2020) 67.6 >60 Nov 26, 2024 07:45 PM [facility] CBC BLOOD Specimen Type: BLOOD No comment entered. Ordering Provider: LIDIA SWANSON Report Released Date/Time: Nov 25, 2024 04:28 PM Reporting Lab: [address] [address] Performing Lab: [address] [address] WBC 9.3 10*3/uL 3.6-11.2 RBC 4.37 10*6/uL [...] Nov 26, 2024 02:14 PM [facility] RENAL PANEL PLASMA Specimen Type: PLASM A Comment: No hemolysis noted. Ordering Provider: LIDIA SWANSON Report Released Date/Time: Nov 25, 2024 03:08 PM Reporting Lab: [address] [address] Performing Lab: [address] [address] CREATININE 1.21 mg/dL 0.7-1.3 UREA NITROGEN 13.4 mg/dL 9.0-25.0 GLUCOSE 118 mg/dL H 72-99 SODIUM 139 meq/L 136-145 POTASSIUM 4.4 meq/L 3.5-5 CHLORIDE 106 meq/L 98-107 CARBON DIOXIDE 30 meq/L 22-31 CALCIUM 9.0 mg/dL 8.4-10.4 PHOSPHOROUS 1.8 mg/dL L 2.3-4.7 ALBUMIN 3.6 g/dL 3.4-5 EGFR (CKD-EPI 2020) 65.6 >60 Nov 26, 2024 02:00 PM [facility] MAGNESIUM PLASMA Specimen Type: PLASM A Comment: No hemolysis noted. Ordering Provider: LIDIA SWANSON Report Released Date/Time: Nov 26, 2024 09:37 AM Reporting Lab: [address] [address] Performing Lab: [address] [address] MAGNESIUM 1.8 mg/dL 1.6-2.6 Nov 25, 2024 09:00 PM [facility] MRSA SURVL NARES DNA NARES Specimen [...] information for final interpretation. Ordering Provider: ZAKIYA FISHRE Report Released Date/Time: Nov 25, 2024 08:59 PM Reporting Lab: [address] [address] Performing Lab: [address] [address] MRSA SURVL NARES DNA Negative Negative Nov 25, 2024 07:05 PM [facility] CBC BLOOD Specimen Type: BLOOD No comment entered. Ordering Provider: LIDIA SWANSON Report Released Date/Time: Nov 25, 2024 04:28 PM Reporting Lab: [address] [address] Performing Lab: [address] [address] WBC 8.8 10*3/uL 3.6-11.2 RBC 4.00 10*6/uL [...] Nov 25, 2024 06:43 PM [facility] MAGNESIUM PLASMA Specimen Type: PLASM A Comment: No hemolysis noted. Ordering Provider: LIDIA SWANSON Report Released Date/Time: Nov 25, 2024 04:22 PM Reporting Lab: [facility] [address] [facility] [address] Performing Lab: [facility] [address] [facility] [address] MAGNESIUM 1.9 mg/dL 1.6-2.6 Nov 25, 2024 06:43 PM [facility] PHOSPHOROUS PLASMA Specimen Type: PLASM A Comment: No hemolysis noted. Ordering Provider: LIDIA SWANSON Report Released Date/Time: Nov 25, 2024 04:28 PM Reporting Lab: [address] [address] Performing Lab: [address] [address] PHOSPHOROUS 2.5 mg/dL 2.3-4.7 Nov 25, 2024 06:43 PM [facility] COMPREHENSIVE METABOLIC PANEL PLASMA Specimen Type: PLASMA Comment: No hemolysis noted. Ordering Provider: LIDIA SWANSON Report Released Date/Time: Nov 25, 2024 04:22 PM Reporting Lab: [address] [address] Performing Lab: [address] [address] CREATININE 1.27 mg/dL 0.7-1.3 UREA NITROGEN 15.7 [...] Height Weight Body Mass Index Source Nov 28, 2024 01:37 PM 97.8 F 62 /min 145/80 mm[Hg] 16 /min 93 % 0 [facility] N Nov 28, 2024 12:23 PM 0 [facility] Nov 28, 2024 08:53 AM 98.4 F 61 /min 123/70 mm[Hg] 16 /min 96 % 0 [facility] Nov 28, 2024 04:33 AM 97.6 F 76 /min 123/73 mm[Hg] 18 /min 93 % 0 [facility] Encounter Notes: All associated encounter notes This section contains the clinical notes associated to the Encounter. Date/Time Encounter Note(s) Provider Source Nov 28, 2024 11:06 AM CARDIOLOGY INPATIE NT NOTE: LOCAL TITLE: CARDIOLOGY INPATIENT FOLLOW UP STL STANDARD TITLE: CARDIOLOGY INPATIENT NOTE DATE OF NOTE: NOV 28, 2024@11:06 ENTRY DATE: NOV 28, 2024@11:06:28 AUTHOR: BARB GROSS COSIGNER: HOWARD SHEPHERD URGENCY: STATUS: COMPLETED CARDIOLOGY INPATIENT FOLLOW UP STL Has ADDENDA CARDIOLOGY CONSULT FOLLOWUP NOTE SUBJECTIVE Last night's EKG showed a QTc of 597ms. However, on further review, it seems like his morning dose of Tikosyn was not given until 12:41, and his evening dose was given at 21:40. Given that these doses were 8-9 hrs apart, it is likely that patient was supratherapeutic when his EKG was obtained last night. Will plan to decrease tikosyn to 250mcg bid today Pt is otherwise feeling well, denies any symptoms. PAST MEDICAL HISTORY 1) History of colonic [...] PO BID ACTIVE Indication: FOR ANTICOAGULATION 3) FOLIC ACID TAB 0.4MG PO QDAILY ACTIVE Indication: FOR FOLIC ACID SUPPLEMENTATION 4) LISINOPRIL TAB 20MG PO QDAILY ACTIVE Indication: FOR HIGH BLOOD PRESSURE 5) MELATONIN CAP/TAB 10MG PO QHS PRN for sleep ACTIVE Indication: FOR SLEEP 6) METHOCARBAMOL TAB 500MG PO TID PRN ACTIVE Indication: FOR MUSCLE SPASM 7) METOPROLOL SUCCINATE (SUST RELEASE) 25MG PO QDAILY ACTIVE Indication: ATRIAL FIBRILLATION 8) ROSUVASTATIN TAB 20MG PO QPM ACTIVE Indication: FOR HIGH CHOLESTEROL OBJECTIVE/DATA PHYSICAL EXAM Temperature: 98.4 F [36.9 C] (11/28/2024 08:53) BP: 123/70 (11/28/2024 08:53) Pulse: 61 (11/28/2024 08:53) Resp: 16 (11/28/2024 08:53) Height: 75 in [190.5 cm] (08/28/2024 13:35) [...] H pg/mL 08/28/2024 14:18 SODIUM 139 mEq/L 11/28/2024 06:00 POTASSIUM 4.1 mEq/L 11/28/2024 06:00 CHLORIDE 105 mEq/L 11/28/2024 06:00 UREA NITROGEN 13.3 mg/dL 11/28/2024 06:00 CREATININE 1.15 mg/dL 11/28/2024 06:00 CALCIUM 9.0 mg/dL 11/28/2024 06:00 PROTEIN 6.6 g/dL 11/25/2024 18:43 ALBUMIN 3.6 g/dL 11/28/2024 06:00 ALKALINE PHOSPHATASE 99 U/L 11/25/2024 18:43 ALT/SGPT 7 L U/L 11/25/2024 18:43 AST/SGOT 9 U/L 11/25/2024 18:43 TOTAL BILIRUBIN 0.4 mg/dL 11/25/2024 18:43 CARBON DIOXIDE 28 mEq/L 11/28/2024 06:00 GLUCOSE 104 H mg/dL 11/28/2024 06:00 EGFR (CKD-EPI 2020) 69.8 11/28/2024 06:00 PHOSPHOROUS 2.8 mg/dL 11/28/2024 06:00 WBC 9.5 10*3/uL 11/27/2024 18:35 RBC 4.19 10*6/uL 11/27/2024 18:35 HGB 13.7 g/dL 11/27/2024 18:35 HCT 42.3 % 11/27/2024 18:35 MCV 101.0 H fL 11/27/2024 18:35 MCH 32.7 pg 11/27/2024 18:35 MCHC 32.4 L g/dL 11/27/2024 18:35 RDW 14.1 % 11/27/2024 18:35 PLT 222 10*3/uL 11/27/2024 18:35 MPV 10.6 fL 11/27/2024 18:35 NEUTROPHILS, AUTO % 72 % 11/27/2024 18:35 LYMPHOCYTES, AUTO % 17 % 11/27/2024 18:35 MONOCYTES, AUTO % 9 % 11/27/2024 18:35 EOSINOPHILS, AUTO % 2 % 11/27/2024 18:35 BASOPHILS, AUTO % 1 % 11/27/2024 18:35 NEUTROPHILS, ABSOLUTE 6.83 10*3/uL 11/27/2024 18:35 LYMPHOCYTES, ABSOLUTE 1.61 10*3/uL 11/27/2024 18:35 MONOCYTES, ABSOLUTE 0.84 H 10*3/uL 11/27/2024 18:35 EOSINOPHILS, ABSOLUTE 0.16 10*3/uL 11/27/2024 18:35 BASOPHILS, ABSOLUTE 0.06 10*3/uL 11/27/2024 18:35 ASSESSMENT AND PLAN 69-year-old man with a [...] #Hx of CVA #COPD #Tobacco use disorder Last night's EKG (11/27) showed a QTc of 597ms. However, on further review, it seems like his morning dose of Tikosyn was not given until 12:41, and his evening dose was given at 21:40. Given that these doses were 8-9 hrs apart, it is likely that patient was supratherapeutic when his EKG was obtained last night. Recommendations -Decrease Tikosyn to 250mcg bid. Obtain an EKG 2 hrs after morning dose. If QTc is within normal parameters, plan to discharge patient on Tikosyn 250mcg bid -Continue Eliquis 5mg bid -Continue Metop succinate 25mg qdaily -Maintain K>4, Mg>2 -Consider sleep study outpatient -Tele monitoring -Outpatient cardiology follow up (requested) Plan discussed with Dr. Shepherd Thank you for this consult, cardiology will continue to assist with this patient's care. Please see final attending attestation for additional recommendations. Life Sustaining Treatment Orders /loreta/ Barb Gross MD Erosion Control Specialist Signed: 11/28/2024 11:16 /loreta/ HOWARD SHEPHERD MD PHD STAFF PHYSICIAN AND CHIEF OF HEART FAILURE Cosigned: 11/28/2024 11:55 11/28/2024 ADDENDUM STATUS: COMPLETED I have seen and examined the patient in this date of service. I have independently reviewed the new diagnostic and laboratory data, as well as the plan with the author of this note. I agree with the assessment and plan as outlined below, with the following modifications: HISTORY: Feels well today. No specific complaints. Tikosyn dosing was not entirely accurate (early doses yesterday), which caused transient increase in the QTc. DATA: -ECG from this AM reveals NSR with 1st degree AVB, RBBB, and QTc of 544. ASSESMENT AND PLAN: -Decrease tikosyn to 250mcg BID, ensure patient picks this up prior to discharge -Continue additional GDMT as noted below. -We will arrange for close follow-up /argelia SHEPHERD MD PHD STAFF PHYSICIAN AND CHIEF OF HEART FAILURE Signed: 11/28/2024 11:57 [facility]
--- OUTSIDE RECORDS SUMMARY | 2024-12-14 17:54 | XMS_ITS | Encounter Summary ---
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 [place] Organization [facility] Address [address] [place] [address] Care Team Providers Care Jack Strip Assembler Name Role Phone JESSICA KAY Primary Care [...] ACTIV E [place] HIGH Jun 03, 2013 [id number] [phone] JOSEPHINE DiamondROSITA SPOUSE MEDICARE (WNR) MEDICARE (M) PART B Jul 04, 2016 PART B [id number] JOSEPHINE DiamondELI PATIENT MEDICARE (WNR) MEDICARE (M) PART A Jul 04, 2016 PART A [id number] RICHARDSO N,ELI PATIENT MEDICARE (WNR) MEDICARE (M) PART A Jul 04, 2016 PART A [id number] [phone] EMMASO N,ELI PATIENT MEDICARE (WNR) MEDICARE (M) PART B Jul 04, 2016 PART B [id number] [phone] EMMASO N,ELI PATIENT MEDICARE (WNR) MEDICARE (M) PART A Jul 04, 2016 PART A [id number] EMMASO N,ELI PATIENT MEDICARE (WNR) MEDICARE (M) PART B Jul 04, 2016 PART B [id number] EMMASO N,ELI PATIENT MEDICARE (WNR) MEDICARE (M) PART A Jul 04, 2016 PART A [id number] EMMASO N,ELI PATIENT MEDICARE (WNR) MEDICARE (M) PART B Jul 04, 2016 PART B [id number] [phone] EMMASO NHERMESY PATIENT PRIME THERAPEUTI CS RX PRESCRIPT ION RX PLAN Jun 03, 2013 [id number] [phone] EMMASO NHERMESY PATIENT Selected Encounter This section includes the information on record at [place] for the Encounter. Date/Time Encounter Type Encounter Description Reason Provider Source Nov 27, 2024 10:09 AM OFFICE O/P EST MOD 30 MIN NON-OR ANESTHESIA PROCEDURES ICD-10-CM Z01.818 Encounter for other preprocedural examination CARLOS PULLIAM Redd Encounter Template Text not used by [place] Assessments - Encounter Diagnoses This section includes the primary and secondary diagnoses documented for the Encounter. Date/Time Primary/Secondary Diagnosis Diagnosis Name Provider Source Nov 27, 2024 11:38 AM PRIMARY Encounter for other preprocedural examination ODALYS PULLIAM MARC [facility] Nov 27, 2024 11:38 AM SECONDARY Encounter for other specified surgical aftercare CARLOS PULLIAMBessie TRAN [facility] Plan of Treatment: Future [...] 20 appointments. The data comes from all [facility]. Appointment Date/Time Appointment Type Appointme nt Facility Name Jan 25, 2025 11:05 AM AMBULATORY - MEDICINE [facility] Jan 27, 2025 06:00 AM AMBULATORY - NONE [facility] Jan 27, 2025 06:15 AM AMBULATORY - MEDICINE [facility] Jan 28, 2025 02:00 PM AMBULATORY - MEDICINE [facility] 2025 01:[address] [facility] Active, Pending, [...] of theEncounter. The data comes from all [facility]. Test Date/Time Test Type Test Details Facility Name October 20, 2024 04:34 PM Procedure Order CP ELECTRO PHYSIOLOGY STL CP ELECTROPHYSIOLOGY STL [facility] October 23, 2024 02:40 PM Procedure Order CP SWATI ECH OCARDIOGRAM JOSELYN SWATI FUTURE CARE ECHOCARDIOGRAM STL Proc Supervisor [facility] Nov 27, 2024 11:41 AM Procedure Order CP EKG STL CP EKG - STL Proc Bedside [facility] Lab Results: +/- 30 days of [...] Type Comment Nov 28, 2024 08:[address] [facility] MAGNESIUM PLASMA Specimen Type: PLASMA Comment: No hemolysis noted. Ordering Provider: INOCENCIA TITUS Report Released Date/Time: Nov 27, 2024 07:13 PM Reporting Lab: [facility] [address] [address] Performing Lab: [address] [address] MAGNESIUM 2.1 mg/dL 1.6-2.6 Nov 28, 2024 08:[address] [facility] RENAL PANEL PLASMA Specimen Type: PLASM A Comment: No hemolysis noted. Ordering Provider: INOCENCIA TITUS Report Released Date/Time: Nov 27, 2024 07:13 PM Reporting Lab: [address] [address] Performing Lab: [address] [address] CREATININE 1.15 mg/dL 0.7-1.3 UREA NITROGEN 13.3 mg/dL 9.0-25.0 GLUCOSE 104 mg/dL H 72-99 SODIUM 139 meq/L 136-145 POTASSIUM 4.1 meq/L 3.5-5 CHLORIDE 105 meq/L 98-107 CARBON DIOXIDE 28 meq/L 22-31 CALCIUM 9.0 mg/dL 8.4-10.4 PHOSPHOROUS 2.8 mg/dL 2.3-4.7 ALBUMIN 3.6 g/dL 3.4-5 EGFR (CKD-EPI 2020) 69.8 >60 Nov 27, 2024 06:35 PM [facility] CBC BLOOD Specimen Type: BLOOD No comment entered. Ordering Provider: LIDIA SWANSON Report Released Date/Time: Nov 25, 2024 04:28 PM Reporting Lab: [address] [address] Performing Lab: [address] [address] WBC 9.5 10*3/uL 3.6-11.2 RBC 4.19 10*6/uL [...] 0.00-0. 20 Nov 27, 2024 02:[address] [facility] RENAL PANEL PLASMA Specimen Type: PLASM A Comment: No hemolysis noted. Ordering Provider: LIDIA SWANSON Report Released Date/Time: Nov 25, 2024 03:08 PM Reporting Lab: [address] [address] Performing Lab: [address] [address] CREATININE 1.20 mg/dL 0.7-1.3 UREA NITROGEN 15.1 mg/dL 9.0-25.0 GLUCOSE 137 mg/dL H 72-99 SODIUM 140 meq/L 136-145 POTASSIUM 4.1 meq/L 3.5-5 CHLORIDE 106 meq/L 98-107 CARBON DIOXIDE 29 meq/L 22-31 CALCIUM 8.9 mg/dL 8.4-10.4 PHOSPHOROUS 2.3 mg/dL 2.3-4.7 ALBUMIN 3.7 g/dL 3.4-5 EGFR (CKD-EPI 2020) 66.3 >60 Nov 27, 2024 02:[address] [facility] MAGNESIUM PLASMA Specimen Type: PLASM A Comment: No hemolysis noted. Ordering Provider: LIDIA SWANSON Report Released Date/Time: Nov 26, 2024 09:37 AM Reporting Lab: [address] [address] Performing Lab: [address] [address] MAGNESIUM 2.4 mg/dL 1.6-2.6 Nov 27, 2024 07:29 AM [facility] B12 SERUM Specimen Type: SERUM No comment entered. Ordering Provider: LIDIA SWANSON Report Released Date/Time: Nov 26, 2024 08:37 PM Reporting Lab: [facility] [address] [place] [phone] Performing Lab: [facility] [address] [place] [phone] B12 418 pg/mL 213-816 Nov 27, 2024 07:[address] [facility] FOLATE (L-OR) SERUM Specimen Type: SERUM No comment entered. Ordering Provider: LIDIA SWANSON Report Released Date/Time: Nov 26, 2024 08:37 PM Reporting Lab: [address] [address] Performing Lab: [address] [address] FOLATE (L-MA) 6.7 ng/mL L 7-20 Nov 27, 2024 06:[address] [facility] MAGNESIUM PLASMA Specimen Type: PLASM A Comment: No hemolysis noted. Ordering Provider: MARICRUZ HARDY Report Released Date/Time: Nov 27, 2024 05:33 AM Reporting Lab: [address] [address] Performing Lab: [address] [address] MAGNESIUM 2.8 mg/dL H 1.6-2.6 Nov 27, 2024 06:[address] [facility] PHOSPHOROUS PLASMA Specimen Type: PLASM A Comment: No hemolysis noted. Ordering Provider: MARICRUZ HARDY Report Released Date/Time: Nov 27, 2024 05:38 AM Reporting Lab: [address] [address] Performing Lab: [address] [address] PHOSPHOROUS 4.1 mg/dL 2.3-4.7 Nov 27, 2024 06:[address] [facility] BASIC METABOLIC PANEL PLASMA Specimen Type: PL ASMA Comment: No hemolysis noted. Ordering Provider: MARICRUZ HARDY Report Released Date/Time: Nov 27, 2024 05:33 AM Reporting Lab: [address] [address] Performing Lab: [address] [address] CREATININE 1.18 mg/dL 0.7-1.3 UREA NITROGEN 13.7 mg/dL 9.0-25.0 GLUCOSE 106 mg/dL H 72-99 SODIUM 141 meq/L 136-145 POTASSIUM 4.4 meq/L 3.5-5 CHLORIDE 104 meq/L 98-107 CARBON DIOXIDE 26 meq/L 22-31 CALCIUM 8.6 mg/dL 8.4-10.4 EGFR (CKD-EPI 2020) 67.6 >60 Nov 26, 2024 07:45 PM [facility] CBC BLOOD Specimen Type: BLOOD No comment entered. Ordering Provider: LIDIA SWANSON Report Released Date/Time: Nov 25, 2024 04:28 PM Reporting Lab: [address] [address] Performing Lab: [address] [address] WBC 9.3 10*3/uL 3.6-11.2 RBC 4.37 10*6/uL [...] 0.00-0. 20 Nov 26, 2024 02:[address] [facility] RENAL PANEL PLASMA Specimen Type: PLASM A Comment: No hemolysis noted. Ordering Provider: LIDIA SWANSON Report Released Date/Time: Nov 25, 2024 03:08 PM Reporting Lab: [place] [address] [address] Performing Lab: [address] [address] CREATININE 1.21 mg/dL 0.7-1.3 UREA NITROGEN 13.4 mg/dL 9.0-25.0 GLUCOSE 118 mg/dL H 72-99 SODIUM 139 meq/L 136-145 POTASSIUM 4.4 meq/L 3.5-5 CHLORIDE 106 meq/L 98-107 CARBON DIOXIDE 30 meq/L 22-31 CALCIUM 9.0 mg/dL 8.4-10.4 PHOSPHOROUS 1.8 mg/dL L 2.3-4.7 ALBUMIN 3.6 g/dL 3.4-5 EGFR (CKD-EPI 2020) 65.6 >60 Nov 26, 2024 02:[address] [facility] MAGNESIUM PLASMA Specimen Type: PLASM A Comment: No hemolysis noted. Ordering Provider: LIDIA SWANSON Report Released Date/Time: Nov 26, 2024 09:37 AM Reporting Lab: [address] [address] Performing Lab: [address] [address] MAGNESIUM 1.8 mg/dL 1.6-2.6 Nov 25, 2024 09:[address] [facility] MRSA SURVL NARES DNA NARES Specimen [...] Nov 25, 2024 08:59 PM Reporting Lab: [address] [address] Performing Lab: [address] [address] MRSA SURVL NARES DNA Negative Negative Nov 25, 2024 07:05 PM [facility] CBC BLOOD Specimen Type: BLOOD No comment entered. Ordering Provider: LIDIA SWANSON Report Released Date/Time: Nov 25, 2024 04:28 PM Reporting Lab: [address] [address] Performing Lab: [address] [address] WBC 8.8 10*3/uL 3.6-11.2 RBC 4.00 10*6/uL [...] 0.00-0. 20 Nov 25, 2024 06:[address] [facility] MAGNESIUM PLASMA Specimen Type: PLASM A Comment: No hemolysis noted. Ordering Provider: LIDIA SWANSON Report Released Date/Time: Nov 25, 2024 04:22 PM Reporting Lab: [facility] [address] [place] [address] Performing Lab: [address] [address] MAGNESIUM 1.9 mg/dL 1.6-2.6 Nov 25, 2024 06:[address] [facility] PHOSPHOROUS PLASMA Specimen Type: PLASM A Comment: No hemolysis noted. Ordering Provider: LIDIA SWANSON Report Released Date/Time: Nov 25, 2024 04:28 PM Reporting Lab: [address] [address] Performing Lab: [address] [address] PHOSPHOROUS 2.5 mg/dL 2.3-4.7 Nov 25, 2024 06:[address] [facility] COMPREHENSIVE METABOLIC PANEL PLASMA Specimen Type: PLASMA Comment: No hemolysis noted. Ordering Provider: LIDIA SWANSON Report Released Date/Time: Nov 25, 2024 04:22 PM Reporting Lab: [address] [address] Performing Lab: [address] [address] CREATININE 1.27 mg/dL 0.7-1.3 UREA NITROGEN 15.7 [...] 122/49 mm[Hg] 18 /min 93 % 0 [facility] Nov 27, 2024 08:28 PM 97.8 F 67 /min 132/75 mm[Hg] 18 /min 94 % 0 [facility] Nov 27, 2024 04:34 PM 97.4 F 68 /min 160/99 mm[Hg] 18 /min 94 % 0 [facility] Nov 27, 2024 12:24 PM 97.6 F 70 /min 165/93 mm[Hg] 18 /min 95 % 0 [facility] Nov 27, 2024 07:46 AM 0 [facility] Encounter Notes: All associated encounter notes This section contains the clinical notes associated to the Encounter. Date/Time Encounter Note(s) Provider Source Nov 30, 2024 08:59 AM ANESTHESIOLOGY POS T OPERATIVE E & M NOTE: LOCAL TITLE: ANESTHESIA POST-OP STL STANDARD TITLE: ANESTHESIOLOGY POST OPERATIVE E & M NOTE DATE OF NOTE: NOV 30, 2024@08:59 ENTRY DATE: NOV 30, 2024@08:59:35 AUTHOR: MEGAN PULLIAM EXP COSIGNER: URGENCY: STATUS: COMPLETED Anesthesia Post-Anesthetic No Complications: Anesthesia Intra-Op Flowsheet Uploaded to [employer] No Anesthesia complications reported at the time of this note. ARKS filed in [employer]. /loreta/ MEGAN PULLIAM MD Staff Anesthesiolgist Signed: 11/30/2024 09:00 MEGAN PULLIAM [facility] Nov 27, 2024 10:09 AM ANESTHESIOLOGY PRE OPERATIVE E & M NOTE: LOCAL TITLE: ANESTHESIA PRE-OP STL STANDARD TITLE: ANESTHESIOLOGY PRE OPERATIVE E & M NOTE DATE OF NOTE: NOV 27, 2024@10:09 ENTRY DATE: NOV 27, 2024@10:09:35 AUTHOR: MEGAN PULLIAM EXP COSIGNER: URGENCY: STATUS: COMPLETED Pre-Operative Diagnosis: Hx of Atrial Fibrillation Operation proposed: DCCV Vitals: Age: 69 Weight: 259.5 lb [117.71 kg] (11/25/2024 14:51) Height: 75 in [190.5 cm] (08/28/2024 13:35) Blood Pressure: 146/101 (11/27/2024 07:45) Pulse: 67 (11/27/2024 07:45) Temp: 97.7 F [36.5 C] (11/27/2024 07:45) Resp: 18 (11/27/2024 07:45) SpO2: 94% (11/27/2024 07:45) BMI: 32.5 Allergies: CHANTIX Medications: ACTIVE INPT MEDS: 1) ALBUTEROL (CFC-F) INHL,ORAL INH ORAL QID 2 PUFFS 2) APIXABAN (PA-F) TAB,ORAL PO BID 5MG 3) LISINOPRIL TAB PO QDAILY 20MG 4) METOPROLOL SUCCINATE (SUST RELEASE) PO QDAILY 25MG 5) ROSUVASTATIN TAB PO QPM 20MG 6) MELATONIN CAP/TAB PO QHS PRN 10MG 7) METHOCARBAMOL TAB PO TID PRN 500MG Active Outpatient Medications (including Supplies): Active Outpatient [...] BY MOUTH EVERY EVENING ACTIVE 5) Non-VA [id number]/VILANTEROL 25MCG 30D INH 1 PUFF ORAL ACTIVE INHALATION ONCE A DAY 9 Total Medications Most Recent Labs/CXR/EKG Results HGB 14.0 g/dL 11/26/2024 20:00 HCT 44.3 % (11/26/24 20:00) PLT 232 10*3/uL 11/26/2024 20:00 WBC 9.3 10*3/uL (11/26/24 20:00) PT ____ No PTT EO data found No INR EO data found SODIUM 141 mEq/L 11/27/2024 06:20 POTASSIUM 4.4 mEq/L 11/27/2024 06:20 CHLORIDE 104 mEq/L 11/27/2024 06:20 UREA NITROGEN 13.7 mg/dL 11/27/2024 06:20 CREATININE 1.18 mg/dL 11/27/2024 06:20 CALCIUM 8.6 mg/dL 11/27/2024 06:20 CARBON DIOXIDE 26 mEq/L 11/27/2024 06:20 GLUCOSE 106 H mg/dL 11/27/2024 06:20 EGFR (CKD-EPI 2020) 67.6 11/27/2024 06:20 ALBUMIN 3.6 g/dL 11/26/2024 14:00 HGA1C 6.3 H % 04/08/2024 15:32 ALKALINE PHOSPHATASE 99 U/L 11/25/2024 18:43 SGPT/ALT 7 U/L L (11/25/24 18:43) SGOT/AST 9 U/L (11/25/24 18:43) TOTAL BILIRUBIN 0.4 mg/dL 11/25/2024 18:43 No GLUCOSE,BLOOD-poct (STL) data found URINE COLOR Light-Yellow 05/20/2024 14:14 APPEARANCE Clear 05/20/2024 14:14 U.PH 7.0 05/20/2024 14:14 U.BILIRUBIN Negative mg/dL 05/20/2024 14:14 U.NITRITE Negative mg/dL 05/20/2024 14:14 UDS: No URINE DRUG SCREEN EO data found TEST: No TEST LAST ONE EO data found No HIV SCREENING EO data found [facility] Hep C tests in last five years. *No Lab Data Found* CXR: Impression for CHEST X-RAY, 2 VIEWS, 08/07/24, case [id number] No active lung disease. RR EKG: Other Tests: Problem List: 1) History of colonic polyp [...] accident 18) PAF - Paroxysmal atrial fibrillation EKG : 11/27/2024 08:59 Local Title: EKG CONSULT STL Standard Title: CARDIOLOGY DIAGNOSTIC STUDY CONSULT AUTHOR: CLINICAL,DEVICE PROXY SERVICE DOCUMENT IN [facility]IST[facility] SEE FULL REPORT IN [facility] SIGNATURE NOT REQUIRED SEE SIGNATURE IN [facility]ISTA [facility] ([place] EKG) AUTO-INSTRUMENT DIAGNOSIS Procedure: 45413 12 Lead ECG Release Status: Released Off-Line Verified Date Verified: Nov 27, 2024@08:59:26 62282.2 Ventricular Rate: 59 BPM 66484.5 QRS Duration: 130 ms 68314.6 Q-T Interval: 546 ms 45728 QTC Calculation(Bazett)540 ms 39370.13 Calculated R Mobile: -74 degrees 69582.14 Calculated T Mobile: 76 degrees Atrial flutter with variable AV conduction. Right bundle branch block Left anterior fascicular block Bifascicular block Nonspecific ST and T-wave abnormalities. Prolonged QTc interval. Abnormal ECG When compared with ECG of 26-NOV-2024 13:29,no significant change. Administrative Closure: 11/27/2024 by: DEVICE PROXY SERVICE CLINICAL CLINICAL,DEVICE PROXY SERVICE < THE ABOVE NOTE IS UNSIGNED > - DRAFT COPY * DRAFT COPY * DRAFT COPY * DRAFT COPY * DRAFT COPY * DRAFT COPY - REVIEW OF SYSTEMS: RESPIRATORY: Recent or current SOB SOB on moderate exertion Asthma Denies any childhood or current asthma Acute Bronchitis Denies any recent episodes of bronchitis COPD: history of COPD, on inhalers, no recent exacerbations Pneumonia Denies any recent or past history Sleep Apnea: denies Hx of ARPITA, Purulent Sputum Denies any recent history Wheezing Denies any recent history Comment: Denies any recent or prior Hx of prolonged vent dependence CARDIAC: Chest Pain Denies any recent chest pressure/pain Hypertension Controlled hypertension. Myocardial Infarction Denies Coronary Artery Disease denies Valvular Disease Denies any signs/symptoms/diagnosis Dysrythmia Hx of Atrial Flutter Congestive Heart Failure No recent history of CHF Peripheral Vascular Disease no Hx of Claudication / rest pain. 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, no residual Seizures Denies any recent or past history Post-Traumatic Stress Disorder Denies any recent or past history Mental Disorder Denies any recent or past history Depression Denies any recent or past history ENDOCRINE: Thyroid Disease Denies any recent or past history Parathyroid Disease Denies any recent or past history Diabetes Type 1 or Type 2 : denies Accu-check Hb A1C - RENAL SYSTEM: Hematuria Denies any recent or past history Kidney Stones: Denies any recent or past history Urosepsis Denies any recent or past history Urinary Obstruction Denies any recent or past history Chronic Renal Insufficiency (CRI) denies Renal Cell Ca. Denies any recent or past history Prostate Denies any recent or past history GI SYSTEM: Liver Disease Denies any recent or past history Hepatitis C Denies any recent or past history Cirrhosis Denies any recent or past history GERD Recent Symptoms: No On OTC meds. No symptoms today Peptic Ulcer Disease Denies any recent or past history Hiatal Hernia Denies any recent or past history Other GI: Denies history of GI Bleeds HEMATOLOGY: Anemia Denies any recent or past history Leukemia Denies any recent or past history Lymphoma Denies any recent or past history Thrombocytopenia Denies any recent or past history Comment: Denies any recent or past history of bleeding disorders MUSCULOSKELETAL: Rheumatoid Arthritis Denies any recent or past history Degenerative Joint Disease Denies any recent or past history Muscular Disease Denies any recent or past history Gout Denies any recent or past history HABITS: ETOH use: denies Smoking History: ex-smoker Illicit Drugs: Denies any IVDA/ MJ use. No UDS needed PSH: Gall bladder, ex-lap No previous Anesthesia complications Anesthesia Complications Physical Exam: Auscultation Finding: Heart Sounds: Irregular Rate, Irregular Rhythm Breath Sounds: Clear AIRWAY: MP CLASS:II SUBMANDIBULAR SPACE:3 finger breaths RANGE OF MOTION: FULL TEETH: Okay ASA: 3. A patient with severe systemic disease. ANESTHETIC PLAN: MAC Premedications: none Planned anesthetic technique and options were discussed with the patient or guardian. yes Pre-Induction Reassessment: NPO Greater than 8 hours: Yes /loreta/ MEGAN PULLIAM MD Staff Anesthesiolgist Signed: 11/27/2024 11:38 MEGAN PULLIAM [facility]
--- OUTSIDE RECORDS SUMMARY | 2024-12-14 17:54 | XMS_ITS | Encounter Summary ---
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 Name Role Phone JESSICA KAY Primary Care [...] ACTIV E IL HIGH Jun 03, 2013 [id number] [phone] JOSEPHINE DiamondROSITA SPOUSE MEDICARE (WNR) MEDICARE (M) PART B Jul 04, 2016 PART B [id number] JOSEPHINE DiamondELI PATIENT MEDICARE (WNR) MEDICARE (M) PART A Jul 04, 2016 PART A [id number] RICHARDSO N,ELI PATIENT MEDICARE (WNR) MEDICARE (M) PART A Jul 04, 2016 PART A [id number] RICHARDSO N,ELI PATIENT MEDICARE (WNR) MEDICARE (M) PART B Jul 04, 2016 PART B [id number] RICHARDSO N,ELI PATIENT MEDICARE (WNR) MEDICARE (M) PART A Jul 04, 2016 PART A [id number] RICHARDSO N,ELI PATIENT MEDICARE (WNR) MEDICARE (M) PART B Jul 04, 2016 PART B [id number] RICHARDSO N,ELI PATIENT MEDICARE (WNR) MEDICARE (M) PART A Jul 04, 2016 PART A [id number] RICHARDSO N,ELI PATIENT MEDICARE (WNR) MEDICARE (M) PART B Jul 04, 2016 PART B [id number] RICHARDSO N,ELI PATIENT PRIME THERAPEUTI CS RX PRESCRIPT ION RX PLAN Jun 03, 2013 [id number] [phone] EMMASO N,ELI PATIENT Selected Encounter This section includes the information on record at [place] for the Encounter. Date/Time Encounter Type Encounter Description Reason Provider Source Nov 26, 2024 07:42 AM IP/OBS CNSLTJ NEW/EST MOD 60 CARDIOLOGY ICD-10-CM I48.0 Paroxysmal atrial fibrillation DANE ACKERMAN Redd Encounter Template Text not used by [place] Assessments - Encounter Diagnoses This section includes the primary and secondary diagnoses documented for the Encounter. Date/Time Primary/Secondary Diagnosis Diagnosis Name Provider Source Nov 26, 2024 10:43 AM PRIMARY Paroxysmal atrial fibrillation MINNIE GRSOS [facility] Plan of Treatment: Future Appointments (+ 6 months) and Future Tests (+/- 45 days) The Plan of Treatment section includes future care activities for the patient from all [place] treatmentfacilities. This section includes future appointments and future orders which are active, pending or scheduled. Future Appointments This section includes appointments that were scheduled to occur 6 months from the date of the Encounter, up to a maximum of 20 appointments. The data comes from all [place] treatment facilities. Appointment Date/Time Appointment Type Appointme nt Facility Name Jan 25, 2025 11:05 AM AMBULATORY - MEDICINE [facility] Jan 27, 2025 06:00 AM AMBULATORY - NONE [facility] Jan 27, 2025 06:15 AM AMBULATORY - MEDICINE [facility] Jan 28, 2025 02:00 PM AMBULATORY - MEDICINE [facility] 2025 01:00 PM AMBULATORY - MEDICINE [facility] Active, Pending, and Scheduled Orders This section includes a listing of several types of active, pending, and scheduled orders, including clinic medications orders, diagnostic test orders, procedure orders and consult orders; where the start date of the order is 45 days before the date of the Encounter or 45 days after the date of theEncounter. The data comes from all [place] treatment facilities. Test Date/Time Test Type Test Details Facility Name October 20, 2024 04:34 PM Procedure Order CP ELECTRO PHYSIOLOGY STL CP ELECTROPHYSIOLOGY STL [facility] [facility] October 23, 2024 02:40 PM Procedure Order CP SWATI ECH OCARDIOGRAM JOSELYN SWATI FUTURE CARE ECHOCARDIOGRAM STL [facility] [employer] Nov 27, 2024 11:41 AM Procedure Order CP EKG STL CP EKG - STL [facility] Bedside [facility] Lab Results: +/- 30 days of [...] Type Comment Nov 28, 2024 08:16 AM [facility] MAGNESIUM PLASMA Specimen Type: PLASMA Comment: No hemolysis noted. Ordering Provider: INOCENCIA TITUS Report Released Date/Time: Nov 27, 2024 07:13 PM Reporting Lab: [facility] [address] [facility] [address] Performing Lab: [facility] [address] [address] MAGNESIUM 2.1 mg/dL 1.6-2.6 Nov 28, 2024 08:16 AM [facility] RENAL PANEL PLASMA Specimen Type: PLASM A Comment: No hemolysis noted. Ordering Provider: INOCENCIA TITUS Report Released Date/Time: Nov 27, 2024 07:13 PM Reporting Lab: [address] [address] Performing Lab: [address] [address] CREATININE 1.15 mg/dL 0.7-1.3 UREA NITROGEN 13.3 mg/dL 9.0-25.0 GLUCOSE 104 mg/dL H 72-99 SODIUM 139 meq/L 136-145 POTASSIUM 4.1 meq/L 3.5-5 CHLORIDE 105 meq/L 98-107 CARBON DIOXIDE 28 meq/L 22-31 CALCIUM 9.0 mg/dL 8.4-10.4 PHOSPHOROUS 2.8 mg/dL 2.3-4.7 ALBUMIN 3.6 g/dL 3.4-5 EGFR (CKD-EPI 2020) 69.8 >60 Nov 27, 2024 06:[address] [facility] CBC BLOOD Specimen Type: BLOOD No comment entered. Ordering Provider: LIDIA SWANSON Report Released Date/Time: Nov 25, 2024 04:28 PM Reporting Lab: [address] [address] Performing Lab: [address] [address] WBC 9.5 10*3/uL 3.6-11.2 RBC 4.19 10*6/uL [...] 0.00-0. 20 Nov 27, 2024 02:46 PM [facility] RENAL PANEL PLASMA Specimen Type: PLASM A Comment: No hemolysis noted. Ordering Provider: LIDIA SWANSON Report Released Date/Time: Nov 25, 2024 03:08 PM Reporting Lab: [address] [address] Performing Lab: [address] [address] CREATININE 1.20 mg/dL 0.7-1.3 UREA NITROGEN 15.1 mg/dL 9.0-25.0 GLUCOSE 137 mg/dL H 72-99 SODIUM 140 meq/L 136-145 POTASSIUM 4.1 meq/L 3.5-5 CHLORIDE 106 meq/L 98-107 CARBON DIOXIDE 29 meq/L 22-31 CALCIUM 8.9 mg/dL 8.4-10.4 PHOSPHOROUS 2.3 mg/dL 2.3-4.7 ALBUMIN 3.7 g/dL 3.4-5 EGFR (CKD-EPI 2020) 66.3 >60 Nov 27, 2024 02:00 PM [facility] MAGNESIUM PLASMA Specimen Type: PLASM A Comment: No hemolysis noted. Ordering Provider: LIDIA SWANSON Report Released Date/Time: Nov 26, 2024 09:37 AM Reporting Lab: [address] [address] Performing Lab: [address] [address] MAGNESIUM 2.4 mg/dL 1.6-2.6 Nov 27, 2024 07:[address] [facility] B12 SERUM Specimen Type: SERUM No comment entered. Ordering Provider: LIDIA SWANSON Report Released Date/Time: Nov 26, 2024 08:37 PM Reporting Lab: [facility] [address] [address] Performing Lab: [facility] [address] [address] B12 418 pg/mL 213-816 Nov 27, 2024 07:29 AM [facility] ([facility]) SERUM Specimen Type: SERUM No comment entered. Ordering Provider: LIDIA SWANSON Report Released Date/Time: Nov 26, 2024 08:37 PM Reporting Lab: [place] [address] [facility] [address] Performing Lab: [place] [address] [facility] [address] [facility] 6.7 ng/mL L 7-20 Nov 27, 2024 06:20 AM [facility] MAGNESIUM PLASMA Specimen Type: PLASM A Comment: No hemolysis noted. Ordering Provider: MARICRUZ HARDY Report Released Date/Time: Nov 27, 2024 05:33 AM Reporting Lab: [place] [address] [facility] [address] Performing Lab: [place] [address] [facility] [address] MAGNESIUM 2.8 mg/dL H 1.6-2.6 Nov 27, 2024 06:20 AM [facility] PHOSPHOROUS PLASMA Specimen Type: PLASM A Comment: No hemolysis noted. Ordering Provider: MARICRUZ HARDY Report Released Date/Time: Nov 27, 2024 05:38 AM Reporting Lab: [place] [address] [facility] [address] Performing Lab: [address] [address] PHOSPHOROUS 4.1 mg/dL 2.3-4.7 Nov 27, 2024 06:20 AM [facility] BASIC METABOLIC PANEL PLASMA Specimen Type: PL ASMA Comment: No hemolysis noted. Ordering Provider: MARICRUZ HARDY Report Released Date/Time: Nov 27, 2024 05:33 AM Reporting Lab: [address] [address] Performing Lab: [address] [address] CREATININE 1.18 mg/dL 0.7-1.3 UREA NITROGEN 13.7 mg/dL 9.0-25.0 GLUCOSE 106 mg/dL H 72-99 SODIUM 141 meq/L 136-145 POTASSIUM 4.4 meq/L 3.5-5 CHLORIDE 104 meq/L 98-107 CARBON DIOXIDE 26 meq/L 22-31 CALCIUM 8.6 mg/dL 8.4-10.4 EGFR (CKD-EPI 2020) 67.6 >60 Nov 26, 2024 07:[address] [facility] CBC BLOOD Specimen Type: BLOOD No comment entered. Ordering Provider: LIDIA SWANSON Report Released Date/Time: Nov 25, 2024 04:28 PM Reporting Lab: [address] [address] Performing Lab: [address] [address] WBC 9.3 10*3/uL 3.6-11.2 RBC 4.37 10*6/uL [...] 0.00-0. 20 Nov 26, 2024 02:14 PM [facility] RENAL PANEL PLASMA Specimen Type: PLASM A Comment: No hemolysis noted. Ordering Provider: LIDIA SWANSON Report Released Date/Time: Nov 25, 2024 03:08 PM Reporting Lab: [address] [address] Performing Lab: [address] [address] CREATININE 1.21 mg/dL 0.7-1.3 UREA NITROGEN 13.4 mg/dL 9.0-25.0 GLUCOSE 118 mg/dL H 72-99 SODIUM 139 meq/L 136-145 POTASSIUM 4.4 meq/L 3.5-5 CHLORIDE 106 meq/L 98-107 CARBON DIOXIDE 30 meq/L 22-31 CALCIUM 9.0 mg/dL 8.4-10.4 PHOSPHOROUS 1.8 mg/dL L 2.3-4.7 ALBUMIN 3.6 g/dL 3.4-5 EGFR (CKD-EPI 2020) 65.6 >60 Nov 26, 2024 02:00 PM [facility] MAGNESIUM PLASMA Specimen Type: PLASM A Comment: No hemolysis noted. Ordering Provider: LIDIA SWANSON Report Released Date/Time: Nov 26, 2024 09:37 AM Reporting Lab: [address] [address] Performing Lab: [address] [address] MAGNESIUM 1.8 mg/dL 1.6-2.6 Nov 25, 2024 09:00 PM [facility] MRSA SURVL NARES DNA NARES Specimen [...] Nov 25, 2024 08:59 PM Reporting Lab: [address] [address] Performing Lab: [address] [address] MRSA SURVL NARES DNA Negative Negative Nov 25, 2024 07:[address] [facility] CBC BLOOD Specimen Type: BLOOD No comment entered. Ordering Provider: LIDIA SWANSON Report Released Date/Time: Nov 25, 2024 04:28 PM Reporting Lab: [address] [address] Performing Lab: [address] [address] WBC 8.8 10*3/uL 3.6-11.2 RBC 4.00 10*6/uL [...] 0.00-0. 20 Nov 25, 2024 06:43 PM [facility] MAGNESIUM PLASMA Specimen Type: PLASM A Comment: No hemolysis noted. Ordering Provider: LIDIA SWANSON Report Released Date/Time: Nov 25, 2024 04:22 PM Reporting Lab: [facility] [address] [facility] [address] Performing Lab: [facility] [address] [address] [facility] [address] MAGNESIUM 1.9 mg/dL 1.6-2.6 Nov 25, 2024 06:43 PM [facility] PHOSPHOROUS PLASMA Specimen Type: PLASM A Comment: No hemolysis noted. Ordering Provider: LIDIA SWANSON Report Released Date/Time: Nov 25, 2024 04:28 PM Reporting Lab: [facility] [address] [place] [address] Performing Lab: [address] [address] PHOSPHOROUS 2.5 mg/dL 2.3-4.7 Nov 25, 2024 06:43 PM [facility] COMPREHENSIVE METABOLIC PANEL PLASMA Specimen Type: PLASMA Comment: No hemolysis noted. Ordering Provider: LIDIA SWANSON Report Released Date/Time: Nov 25, 2024 04:22 PM Reporting Lab: [address] [address] Performing Lab: [address] [address] CREATININE 1.27 mg/dL 0.7-1.3 UREA NITROGEN 15.7 [...] 151/91 mm[Hg] 20 /min 93 % 0 [facility] Nov 26, 2024 03:40 PM 97.4 F 62 /min 149/95 mm[Hg] 16 /min 95 % 0 [facility] Nov 26, 2024 11:58 AM 97.1 F 69 /min 119/85 mm[Hg] 20 /min 95 % [facility] Nov 26, 2024 08:30 AM 0 [facility] Nov 26, 2024 08:28 AM 97.7 F 63 /min 122/78 mm[Hg] 16 /min 94 % 1 [facility] Encounter Notes: All associated encounter notes This section contains the clinical notes associated to the Encounter. Date/Time Encounter Note(s) Provider Source Nov 26, 2024 07:42 AM CARDIOLOGY CONSULT : LOCAL TITLE: CARDIOLOGY INPATIENT CONSULT ST STANDARD TITLE: CARDIOLOGY CONSULT DATE OF NOTE: NOV 26, 2024@07:42 ENTRY DATE: NOV 26, 2024@07:43:04 AUTHOR: MINNIE GROSS COSIGNER: DANE ACKERMAN URGENCY: STATUS: COMPLETED CARDIOLOGY INPATIENT CONSULT ST Has ADDENDA CARDIOLOGY INITIAL CONSULT NOTE Reason for consult: Tikosyn loading Referring provider: Medicine His chart is reviewed. History is taken from the patient. HISTORY OF PRESENT ILLNESS The patient is a 69-year-old man with a history of right lung non-small cell cancer status post resection in 2020, perioperative atrial fibrillation from this status post 1 month of amiodarone, CVA by brain MRI in 2015, COPD, history of tobacco use-over 50 pack years quit 3 months ago, retinal emboli s/p loop recorder, is presenting to the hospital for Tikosyn loading. He first developed atrial fibrillation after his right lung resection in 2020. He was put on amiodarone for 1 month and then taken off without recurrence until recently.He apparently was also taken off anticoagulation. He [...] severe fatigue and he has no energy. He is currently anticoagulated with Eliquis. On my encounter, pt is feeling well. He reports he has been taking Eliquis regularly for the past one month. Will proceed with Tikosyn load. PAST MEDICAL HISTORY 1) History of colonic [...] PO BID ACTIVE Indication: FOR ANTICOAGULATION 3) ASPIRIN (OTC) TAB,CHEWABLE 81MG PO QDAILY ACTIVE Indication: FOR CARDIOVASCULAR DISEASE 4) CLOPIDOGREL TAB 75MG PO QDAILY ACTIVE Indication: FOR STROKE PREVENTION 5) LISINOPRIL TAB 20MG PO QDAILY ACTIVE Indication: FOR HIGH BLOOD PRESSURE 6) MELATONIN CAP/TAB 10MG PO QHS PRN for sleep ACTIVE Indication: FOR SLEEP 7) METHOCARBAMOL TAB 500MG PO TID PRN ACTIVE Indication: FOR MUSCLE SPASM 8) METOPROLOL SUCCINATE (SUST RELEASE) 25MG PO QDAILY ACTIVE Indication: ATRIAL FIBRILLATION 9) ROSUVASTATIN TAB 20MG PO QPM ACTIVE Indication: FOR HIGH CHOLESTEROL Active Outpatient Medications (including Supplies): Active Outpatient [...] BY MOUTH EVERY EVENING ACTIVE 5) Non-VA [id number]/VILANTEROL2 5MCG 30D INH 1 PUFF ORAL ACTIVE INHALATION ONCE A DAY 9 Total Medications Allergy: CHANTIX OTHER HISTORY FAMILY HISTORY: No premature coronary disease or sudden SOCIAL HISTORY: TOBACCO USE - No ALCOHOL USE - No OTHER DRUGS - No OBJECTIVE/DATA PHYSICAL EXAM Temperature: 97.7 F [36.5 C] (11/26/2024 05:00) BP: 139/77 (11/26/2024 05:00) Pulse: 58 (11/26/2024 05:00) Resp: 20 (11/26/2024 05:00) Height: 75 in [190.5 cm] (08/28/2024 13:35) Weight:259.5 lb [117.71 kg] (11/25/2024 14:51) General: NAD ENTM: Oropharynx clear, tongue and uvula midline Neck: Supple, full range of motion Lungs: Clear to auscultation bilaterally Heart: Rhythm irregular, S1 normal, S2 physiologically split, no murmurs or gallops Abdomen: Soft, non-tender, non-distended, normal bowel sounds Extremities: No cyanosis, clubbing, or edema Skin: Warm, dry, well perfused Psych: Euthymic with congruent affect Neuro: Alert and oriented to person, place, time, and purpose ASSESSMENT AND PLAN 69-year-old man with a history of right lung non-small cell cancer status post resection in 2020, perioperative atrial fibrillation from this status post 1 month of amiodarone, CVA by brain MRI in 2016, COPD, history of tobacco use-over 50 pack years quit 3 months ago, retinal emboli s/p loop recorder, is presenting to the hospital for Tikosyn loading. #Afib #Hx of CVA #COPD #Tobacco use disorder Recommendations -Start Tikosyn 500mcg bid. Please obtain an EKG 2 hrs after each dose. Please call cardiology is QTc >550 (has RBBB) or increased >15% from baseline. -Continue Eliquis 5mg bid -Continue Metop succinate 25mg qdaily -Replete K (3.2 in today's labs). Maintain K>4, Mg>2 -Tele monitoring Plan discussed with Dr. Ackerman. Thank you for this consult. Recommendations are preliminary until attested by attending. Incorporation of recommendations prior to attending attestation are at the discretion of the primary team. Life Sustaining Treatment Orders /argelia Gross MD Communication Assistant Signed: 11/26/2024 10:43 /loreta/ DANE ACKERMAN MD, FACC, FACP Staff Physician - Cardiology Cosigned: 11/26/2024 12:00 11/26/2024 ADDENDUM STATUS: COMPLETED I personally evaluated Mr. Ruelas with Dr. Gross and agree with the above findings and recommendations. /argelia ACKERMAN MD, FACC, FACP Staff Physician - Cardiology Signed: 11/26/2024 12:01 MINNIE GROSS [facility]
[2024-12-14 18:06] VITALS: BP 160/86; PULSE 59; RESP 22; TEMP 36.4; O2SAT 93
[2024-12-14 18:10] LABS: Hematocrit 41.4 % (42.0-52.0); Hemoglobin 13.0 g/dL (14.0-18.0); Immature Granulocyte Percent A 0.5 % (0-0.5); Lymphocytes Absolute Auto 1.54 K/mm3 (0.9-3.2); Mean Corpuscular HGB Conc 31.4 g/dl (32-36); Mean Corpuscular Hemoglobin 32.5 pg (26-34); Mean Corpuscular Volume 103.5 fl (80-100); Nucleated Red Blood Cells Absolute Auto 0.000 K/mm3 (0.0-0.012); Nucleated Red Blood Cells Perc 0.0 % (0.0-0.2); Platelet Count Result 199 k/mm3 (150-375); Red Blood Count 4.00 M/mm3 (4.6-6.20); White Blood Count 7.6 K/mm3 (4.5-10.0)
[2024-12-14 18:33] LABS: INR 1.3; Prothrombin Time 16.6 Seconds (11.1-14.7)
[2024-12-14 18:34] LABS: Partial Thromboplastin Time 31.1 Seconds (22.3-36.8)
[2024-12-14 18:51] LABS: Alanine Aminotransferase 13 U/L (6-50); Albumin Level 3.9 g/dL (3.5-5.1); Alkaline Phosphatase 74 U/L (38-126); Anion Gap 7 mmol/L (4-12); Aspartate Amino Transferase 17 U/L (17-59); Bilirubin,Total 0.9 mg/dL (0.2-1.3); Blood Urea Nitrogen 11 mg/dL (9-20); Calcium 9.2 mg/dL (8.4-10.2); Carbon Dioxide 27 mmol/L (22-30); Chloride 106 mmol/L (98-107); Estimated Glomerular Filt Rate > 60; Glucose 142 mg/dL (65-110); Potassium 3.7 mmol/L (3.4-5.0); Sodium 140 mmol/L (137-145); Total Protein 7.1 g/dL (6.3-8.2)
[2024-12-14 19:24] LABS: NT Pro B Type Natriuretic Pept 3380 pg/mL (19.9-100); Troponin I 0.013 ng/mL (0.000-0.034)
--- NOTE | 2024-12-14 20:55 | PC.NURSE ---
Patient stating that he is leaving and going home. Advised to return for any problems. Walked out drinking soda with steady gait
--- OUTSIDE RECORDS SUMMARY | 2024-12-14 21:20 | XMS_ITS | Clinical Summary ---
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
--- OUTSIDE RECORDS SUMMARY | 2024-12-14 21:21 | XMS_ITS | Continuity of Care Document ---
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 Kolb [facility] Anxiety Active Condition [facility] Asthma Active Condition [facility] Asthma (SNOMED CT 094217150) Active Condition [facility] Chronic kidney disease stage 3A Active Condition [facility] Chronic obstructive lung disease Active Condition [facility] CVA - Cerebrovascular accident Active Condition [facility] Daily headache Active Condition [facility] Deficiency of vitamin D3 Active Condition [facility] Dyspnea Active Condition [facility] Erectile dysfunction Active Condition [facility] Essential hypertension Active Condition [facility] Hepatitis C Active Condition [facility] Hepatitis C Active Condition Mar 09, 2019 Entered By: GEE HATFIELD Comment: in remission [facility] Histoplasmosis Active Condition Jul 052016 Entered By: KISHORE AGUAYO Comment: Hx. of left lower lobe wedge rescetions in the mid per notes from Dr. Mio Palencia [facility] History of cerebrovascular accident Active Condition [facility] History of colonic polyp Active Condition [facility] History of polyp of colon Active Condition [facility] History of right hip replacement Active Condition [facility] HLD - Hyperlipidaemia Active Condition [facility] Hyperlipidemia Active Condition [facility] Hypertensive heart AND chronic kidney disease stage 3 Active Condition [facility] Knee pain (SNOMED CT 40394703) Active Condition [facility] Lung cancer Active Condition Apr 05, 2021 Entered By: WES GARCIA Comment: RLL - Lobectomy - August 2020 [facility] Multiple pulmonary nodules Active Condition [facility] Nicotine dependence Active Condition [facility] Osteoarthritis of joint of left shoulder region Active Condition [facility] PAF - Paroxysmal atrial fibrillation Active Condition [facility] Pain in right hip joint Active Condition Aug 09, 2016 Entered By: KISHORE AGUAYO Comment: 04/04/2016- right toal hip arthroplasty by Dr. Irwin Kolb [facility] Pain of left shoulder joint Active Condition [facility] Periventricular hemorrhagic venous infarct Active Condition [facility] periventricular infarction Active Condition [facility] Peyronie's disease Active Condition [facility] Prediabetes Active Condition [facility] Shoulder pain Active Condition [facility] Tobacco dependence, continuous Active Condition [facility] Tobacco use Active Condition [facility] Vitamin D deficiency Active Condition [facility] Benign essential hypertension Inactive Condition 04/05/2021 [facility] Diagnosis: ICD-10-CM I48.0 Paroxysmal atrial fibrillation Active Diagnosis [facility] Diagnosis: ICD-10-CM Z71.81 Spiritual or restoration counseling Active Diagnosis [facility] Diagnosis: ICD-10-CM I48.3 Typical atrial flutter Active Diagnosis [facility] Diagnosis: ICD-10-CM Z01.818 Encounter for other preprocedural examination Active Diagnosis [facility] Diagnosis: ICD-10-CM Z51.81 Encounter for therapeutic drug level monitoring Active Diagnosis [facility] Diagnosis: ICD-10-CM I48.91 Unspecified atrial fibrillation Active Diagnosis [facility] Admit Reason: ATRIAL FIBRILATION Active Diagnosis [facility] Diagnosis: ICD-10-CM G46.4 Cerebellar stroke syndrome Active Diagnosis [facility] Diagnosis: ICD-10-CM I48.19 Other persistent atrial fibrillation Active Diagnosis [facility] Diagnosis: ICD-10-CM I25.10 Athscl heart disease of [place] coronary artery w/o ang pctrs Active Diagnosis [facility] Diagnosis: ICD-10-CM Z02.9 Encounter for administrative examinations, unspecified Active Diagnosis [facility] Diagnosis: ICD-10-CM J44.9 Chronic obstructive pulmonary disease, unspecified Active Diagnosis [facility] Diagnosis: ICD-10-CM R06.00 Dyspnea, unspecified Active Diagnosis [facility] Diagnosis: ICD-10-CM J44.1 Chronic obstructive pulmonary disease w (acute) exacerbation Active Diagnosis [facility] Diagnosis: ICD-10-CM I63.9 Cerebral infarction, unspecified Active Diagnosis [facility] Diagnosis: ICD-10-CM K63.5 Polyp of colon Active Diagnosis 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 Diagnosis: ICD-10-CM Z72.0 Tobacco use Active Diagnosis [facility] Diagnosis: ICD-10-CM Z71.89 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ed counseling Active Diagnosis [facility] Diagnosis: ICD-10-CM F17.200 Nicotine dependence, unspecified, uncomplicated Active Diagnosis 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 RESPIR ATORY (INHAL ATION) ACTIVE 04/09/2025 [id number] SIOMARAE WES 2023 3 [facility] ALBUTEROL SO4 90MCG/ACTUA T (CFC-F) INHL,ORAL,8 .5GM INHALE 2 PUFFS ORAL INHALATI ON FOUR TIMES A DAY SHAKE WELL. RINSE MOUTHPIE CE FREQUENT LY TO PREVENT CLOGGING . RESPIR ATORY (INHAL ATION) DISCONT INUED 09/18/2024 [id number] 4 MCQUAIDE WES 2023 3 [facility] APIXABAN 5MG TAB TAKE ONE TABLET BY MOUTH TWICE A DAY FOR ANTICOAG ULATION ORAL ACTIVE 08/11/2025 [id number] 5 SA RUMA VIZCARRA 2024 60 [facility] APIXABAN 5MG TAB TAKE ONE TABLET BY MOUTH TWICE A DAY FOR ANTICOAG ULATION ORAL DISCONT INUED 05/21/2025 [id number] 5 MCQUAIDE WES 2023 60 [facility] BISACODYL 5MG TAB,EC TAKE TWO TABLETS BY MOUTH ONE TIME TAKE BISACODY L TABLETS AT 4PM ON AFTERNOO N PRIOR TO TEST. CALL WITH ANY QUESTION S ABOUT THESE INSTRUCT IONS. MAIL TAKE BISACODY L TABLETS AT 4PM ON AFTERNOO N PRIOR TO TEST. CALL WITH ANY QUESTION S ABOUT THESE INSTRUCT IONS. MAIL ORAL 12/05/2023 [id number] 4 SHARON BRANDT 2023 2 [facility] BUMETANIDE 1MG TAB TAKE ONE-HALF TABLET BY MOUTH EVERY MORNING FOR FLUID RETENTIO N (EDEMA) ORAL DISCONT INUED 09/27/2024 [id number] 5 MARCELO,BRA NDT T 2024 4 [facility] BUMETANIDE 1MG TAB TAKE ONE-HALF TABLET BY MOUTH EVERY MORNING FOR FLUID RETENTIO N (EDEMA) ORAL 10/02/2024 [id number] 5 MARCELO,BRA NDT T 2024 4 [facility] BUPROPION HCL 150MG 12HR TAB,SA TAKE ONE TABLET BY MOUTH TWICE A DAY FOR SMOKING CESSATIO N. SWALLOW WHOLE - DO NOT CRUSH OR CHEW. ORAL 09/10/2024 [id number] 4 AMI SUTHERLAND A 2023 180 [facility] CLOPID[facility] BISULFATE 75MG TAB TAKE ONE TABLET BY MOUTH DAILY ORAL ACTIVE Zoraida AGUAYO 2016 [facility] DOFETILIDE 250MCG CAP TAKE ONE CAPSULE BY MOUTH EVERY 12 HOURS FOR ATRIAL FIBRILLA TION - AVOID GRAPEFRU IT/GRAPE FRUIT JUICE WHILE ON THIS MEDICATI ON. ORAL ACTIVE 11/29/2025 [id number] 5 LIDIA SWANSON 2024 180 [facility] FOLIC ACID 0.4MG TAB TAKE ONE TABLET BY MOUTH ONCE A DAY FOR FOLIC ACID SUPPLEME NTATION ORAL ACTIVE 11/29/2025 [id number] 5 LIDIA SWANSON 2024 90 [facility] Lobo HYDROCODONE 7.5MG/ACETA MINOPHEN 325MG TAB TAKE ONE TABLET BY MOUTH EVERY 4 HOURS NEEDED ORAL ACTIVE Zoraida AGUAYO 2016 [facility] HYDROXYZINE HCL 10MG *HI-ALERT* TAB TAKE 25MG BY MOUTH THREE TIMES A DAY NEEDED ORAL ACTIVE Zoraida AGUAYO Zoraida 2016 [facility] LISINOPRIL 20MG TAB TAKE ONE-HALF TABLET BY MOUTH DAILY ORAL ACTIVE Zoraida AGUAYO SURENDRAGARRY Zoraida 2016 [facility] LISINOPRIL 40MG TAB TAKE ONE-HALF TABLET BY MOUTH ONCE A DAY ORAL ACTIVE Ramiro HATFIELD 2018 [facility] METHOCARBAM OL 500MG TAB TAKE 1 TABLET BY MOUTH THREE TIMES A DAY NEEDED FOR MUSCLE SPASM ORAL ACTIVE 04/09/2025 [id number] 5 MCQUAIDE, WES 2023 90 [facility] METHOCARBAM OL 500MG TAB TAKE 1 TABLET BY MOUTH THREE TIMES A DAY NEEDED ORAL DISCONT INUED 09/18/2024 [id number] 4 MCQUAIDE, WES 2023 90 [facility] METOPROLOL SUCCINATE 50MG TAB,SA TAKE ONE-HALF TABLET BY MOUTH ONCE A DAY ORAL ACTIVE SA RUMA VIZCARRA M 2024 [facility] PEG-3350/EL ECTROLYTES PWDR MIX [...] TEST. READ YOUR INSTRUCT IONS!) ORAL 12/05/2023 [id number] 4 SHARON BRANDT 2023 1 [facility] POTASSIUM CHLORIDE 20MEQ TAB,SA (DISPERSIBL E) TAKE TWO TABLETS BY MOUTH ONCE A DAY FOR DESI Han SUPPLEME NTATION TAKE WITH FOOD ORAL 09/27/2024 [id number] 5 CLAUDIA ROBERTSON NDT T 2024 14 [facility] PREDNISONE 10MG TAB TAKE [...] FOOD OR MILK. ORAL DISCONT INUED 09/12/2024 [id number] 5 WES GARCIA 2024 93 [facility] PREDNISONE 10MG TAB TAKE TWO TABLETS BY MOUTH EVERY MORNING FOR 2 DAYS, THEN TAKE ONE TABLET EVERY MORNING FOR 6 DAYS, THEN TAKE ONE-HALF TABLET EVERY MORNING FOR 6 DAYS FOR COPD EXACERBA TION TAKE WITH FOOD OR MILK. ORAL 09/27/2024 [id number] 5 CLAUDIA ROBERTSON NDT T 2024 13 [facility] ROSUVASTATI N CA 40MG TAB TAKE ONE-HALF TABLET BY MOUTH EVERY EVENING ORAL ACTIVE LEFTY VALLADARES L 2020 [facility] SIMETHICONE 80MG TAB,CHEW CHEW AND SWALLOW FOUR TABLETS BY MOUTH DIRECTED FOR TWO DOSES BEFORE GI PROCEDUR E ORAL 12/05/2023 [id number] 4 SHARON BRANDT 2023 8 [facility] MALCOLM Emely 62.5MCG/SOHEILA ANTEROL 25MCG/ACTUA T INH,ORAL,30 D INHALE 1 PUFF ORAL INHALATI ON ONCE A DAY RESPIR ATORY (INHAL ATION) ACTIVE BLAINELEFTY HELLE L 2020 [facility] Allergies, Adverse Reactions, Alerts Combined list of allergies from 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 It does not include entries that were removed or entered in error. Substance Category Reaction Severity Reaction type Status Date Reported Comments Source CHLOEX Propensity to adverse reactions to drug (finding) Nightmares active 0 [facility] Immunizations Combined list of available immunizations from the 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 Immunization Series Date Given Administered By Site Reaction Lot Number CVX Code Drug Medical Billing And Coding Specialist Status Comments Source INFLUENZA, HIGH-DOSE, TRIVALENT, PF 2023 OVERTURF,BRIGITTE E A RIGHT DELTO ID [id number] A 135 complet ed [facility] COVID-19 (PFIZER), MRNA, LNP-S, PF, AGUILAR-SUCROSE, 30 MCG/0.3 ML (AGES 12+ YEARS) 2023 309 complet ed HISTORICA L INFORMATI ON - FROM PATIENT'S RECALL, [facility] COVID-19 (MODERNA), MRNA, LNP-S, PF, 50 MCG/0.5 ML (AGES 12+ YEARS) 1 2023 312 complet ed HISTORICA L INFORMATI ON - FROM OTHER [facility], [facility] COVID-19 (MODERNA), MRNA, LNP-S, PF, 50 MCG/0.5 ML (AGES 12+ YEARS) 6 2022 312 complet ed HISTORICA L INFORMATI ON - FROM OTHER [facility] INFLUENZA, HIGH-DOSE, QUADRIVALENT, PF 1 2022 197 complet ed HISTORICA L INFORMATI ON - FROM OTHER [facility], [facility] RSV, RECOMBINANT, PROTEIN SUBUNIT RSVPREF3, ADJUVANT RECONSTITUTED , 0.5 ML, PF 1 2022 303 complet ed HISTORICA L INFORMATI ON - FROM OTHER [facility], [facility] COVID-19 (PFIZER), MRNA, LNP-S, PF, AGUILAR-SUCROSE, 30 MCG/0.3 ML (AGES 12+ YEARS) 1 2022 309 complet ed HISTORICA L INFORMATI ON - FROM PATIENT'S RECALL, [facility] INFLUENZA, UNSPECIFIED FORMULATION 2022 88 complet ed HISTORICA L INFORMATI ON - FROM PATIENT'S RECALL, [facility] N PNEUMOCOCCAL CONJUGATE PCV20, POLYSACCHARID E [id number] CONJUGATE, ADJUVANT, PF 3 2021 216 complet ed HISTORICA L INFORMATI ON - FROM OTHER REGISTRY, [facility] INFLUENZA, SPLIT VIRUS, QUADRIVALENT, PF 1 2021 150 complet ed HISTORICA L INFORMATI ON - FROM OTHER REGISTRY, [facility] INFLUENZA, UNSPECIFIED FORMULATION 2021 88 complet ed HISTORICA L INFORMATI ON - FROM PATIENT'S RECALL, [facility] COVID-19, MRNA, LNP-S, BIVALENT BOOSTER, PF, 30 MCG/0.3 ML DOSE 1 2021 300 complet ed PFR; [id number]; 3 [facility] COVID-19 (InsureWorx), MRNA, LNP-S, PF, 30 MCG/0.3 ML DOSE, AGUILAR-SUCROSE (AGES 12+ YEARS) 4 2021 217 complet ed [facility] ZOSTER RECOMBINANT 2 2021 187 complet ed [facility] COVID-19 (InsureWorx), MRNA, LNP-S, PF, 30 MCG/0.3 ML DOSE 3 2020 208 complet ed PFR; [id number]; 2 [facility] INFLUEN[facility], INJECTABLE, QUADRIVALENT, PRESERVATIVE FREE 2020 150 complet ed [facility] ZOSTER RECOMBINANT 1 2020 187 complet ed [facility] COVID-19 (InsureWorx), MRNA, LNP-S, PF, 30 MCG/0.3 ML DOSE 2 2020 208 complet ed HISTORICA L INFORMATI ON - FROM OTHER REGISTRY, [facility] COVID-19 (PFIZER), MRNA, LNP-S, PF, 30 MCG/0.3 ML DOSE 2 2020 208 complet ed [facility] COVID-19 (InsureWorx), MRNA, LNP-S, PF, 30 MCG/0.3 ML DOSE [address] [facility] INFLUENZA, UNSPECIFIED FORMULATION 2019 88 complet ed [facility] INFLUENZA, SPLIT VIRUS, QUADRIVALENT, PF 1 2019 150 complet ed HISTORICA L INFORMATI ON - FROM OTHER REGISTRY, [facility] TDAP 1 2018 115 complet ed HISTORICA L INFORMATI ON - FROM OTHER [facility], [facility] INFLUENZA, UNSPECIFIED FORMULATION 2018 88 complet ed [facility] INFLUENZA, MDCK, QUADRIVALENT, PRESERVATIVE 1 2018 186 complet ed HISTORICA L INFORMATI ON - FROM OTHER REGISTRY, [facility] INFLUENZA, SPLIT VIRUS, QUADRIVALENT, PRESERVATIVE 1 2017 158 complet ed HISTORICA L INFORMATI ON - FROM OTHER REGISTRY, [facility] INFLUENZA, SPLIT VIRUS, QUADRIVALENT, PRESERVATIVE 1 2016 158 complet ed HISTORICA L INFORMATI ON - FROM OTHER REGISTRY, [facility] INFLUENZA, SEASONAL, INJECTABLE, PRESERVATIVE FREE 2015 140 complet ed [facility] INFLUENZA, SPLIT VIRUS, TRIVALENT, PF 1 2015 140 complet ed HISTORICA L INFORMATI ON - FROM OTHER REGISTRY, [facility] INFLUENZA, UNSPECIFIED FORMULATION 2014 88 complet ed [facility] PNEUMOCOCCAL CONJUGATE PCV 13 2014 133 complet ed notes dated 07/25/[address] Mio Palencia [facility] PNEUMOCOCCAL CONJUGATE PCV 13 2014 133 complet ed [facility] INFLUENZA, SPLIT VIRUS, TRIVALENT, PF 1 2013 140 complet ed HISTORICA L INFORMATI ON - FROM OTHER REGISTRY, [facility] PNEUMOCOCCAL POLYSACCHARID E PPV23 2013 33 complet ed [facility] INFLUENZA, UNSPECIFIED FORMULATION 2013 88 complet ed [facility] INFLUENZA, UNSPECIFIED FORMULATION 2013 88 complet ed [facility] INFLUENZA, SPLIT VIRUS, TRIVALENT, PRESERVATIVE 1 2012 141 complet ed HISTORICA L INFORMATI ON - FROM OTHER REGISTRY, [facility] PNEUMOCOCCAL POLYSACCHARID E PPV23 1 2012 33 complet ed HISTORICA L INFORMATI ON - FROM OTHER REGISTRY, [facility] PNEUMOCOCCAL POLYSACCHARID E PPV23 2012 33 complet ed [facility] 2012 121 complet ed [facility] 2009 121 complet ed [facility] Results Combined list of [...] Nov 27, 2024 07:13 PM Reporting Lab: [address] [address] Performing Lab: [address] [address] [facility] RENAL PANEL CREATININE [MASS/VOLUM E] IN SERUM OR PLASMA 1.15 mg/dL 0.7 - 1.3 11/28 Specimen Type: PLASMA Comment: No hemolysis noted. Ordering Provider: INOCENCIA TITUS Report Released Date/Time: Nov 27, 2024 07:13 PM Reporting Lab: [facility] [address] [place] [phone] Performing Lab: [facility] [address] [place] [place] [phone] [facility] RENAL PANEL UREA NITROGEN [MASS/VOLUM E] IN SERUM OR PLASMA 13.3 mg/dL 9.0 - 25.0 11/28 Specimen Type: PLASMA Comment: No hemolysis noted. Ordering Provider: INOCENCIA TITUS Report Released Date/Time: Nov 27, 2024 07:13 PM Reporting Lab: [facility] [address] [place] [place] [phone] Performing Lab: [address] [address] [facility] RENAL PANEL GLUCOSE [MASS/VOLUM E] IN SERUM OR PLASMA 104 mg/dL 72 - 99 11/28 H Specimen Type: PLASMA Comment: No hemolysis noted. Ordering Provider: INOCENCIA TITUS Report Released Date/Time: Nov 27, 2024 07:13 PM Reporting Lab: [facility] [address] [facility] [address] Performing Lab: [facility] [address] [place] [phone] [facility] RENAL PANEL SODIUM [MOLES/VOLU ME] IN SERUM OR PLASMA 139 meq/L 136 - 145 11/28 Specimen Type: PLASMA Comment: No hemolysis noted. Ordering Provider: INOCENCIA TITUS Report Released Date/Time: Nov 27, 2024 07:13 PM Reporting Lab: [address] [address] Performing Lab: [address] [address] [facility] RENAL PANEL POTASSIUM [MOLES/VOLU ME] IN SERUM OR PLASMA 4.1 meq/L 3.5 - 5 11/28 Specimen Type: PLASMA Comment: No hemolysis noted. Ordering Provider: INOCENCIA TITUS Report Released Date/Time: Nov 27, 2024 07:13 PM Reporting Lab: [address] [address] Performing Lab: [address] [address] [facility] RENAL PANEL CHLORIDE [MOLES/VOLU ME] IN SERUM OR PLASMA 105 meq/L 98 - 107 11/28 Specimen Type: PLASMA Comment: No hemolysis noted. Ordering Provider: INOCENCIA TITUS Report Released Date/Time: Nov 27, 2024 07:13 PM Reporting Lab: [address] [address] Performing Lab: [address] [address] [facility] RENAL PANEL CARBON DIOXIDE, TOTAL [MOLES/VOLU ME] IN SERUM OR PLASMA 28 meq/L 22 - 31 11/28 Specimen Type: PLASMA Comment: No hemolysis noted. Ordering Provider: INOCENCIA TITUS Report Released Date/Time: Nov 27, 2024 07:13 PM Reporting Lab: [place] [address] [facility] [phone] Performing Lab: [place] [address] [facility] [phone] [facility] RENAL PANEL CALCIUM [MASS/VOLUM E] IN SERUM OR PLASMA 9.0 mg/dL 8.4 - 10.4 11/28 Specimen Type: PLASMA Comment: No hemolysis noted. Ordering Provider: INOCENCIA TITUS Report Released Date/Time: Nov 27, 2024 07:13 PM Reporting Lab: [place] [address] [facility] [phone] Performing Lab: [place] [address] [facility] [phone] [facility] RENAL PANEL PHOSPHATE [MASS/VOLUM E] IN SERUM OR PLASMA 2.8 mg/dL 2.3 - 4.7 11/28 Specimen Type: PLASMA Comment: No hemolysis noted. Ordering Provider: INOCENCIA TITUS Report Released Date/Time: Nov 27, 2024 07:13 PM Reporting Lab: [place] [address] [facility] [address] Performing Lab: [place] [address] [facility] [phone] [facility] RENAL PANEL ALBUMIN [MASS/VOLUM E] IN SERUM OR PLASMA 3.6 g/dL 3.4 - 5 11/28 Specimen Type: PLASMA Comment: No hemolysis noted. Ordering Provider: INOCENCIA TITUS Report Released Date/Time: Nov 27, 2024 07:13 PM Reporting Lab: [place] [address] [facility] [phone] Performing Lab: [address] [address] [facility] RENAL PANEL GLOMERULAR FILTRATION RATE/1.73 SQ M.PREDICTED [VOLUME RATE/AREA] IN SERUM, PLASMA OR BLOOD BY CREATININE- BASED FORMULA (CKD-EPI 2020) 69.8 60 11/28 Specimen Type: PLASMA Comment: No hemolysis noted. Ordering Provider: INOCENCIA TITUS Report Released Date/Time: Nov 27, 2024 07:13 PM Reporting Lab: [place] [address] [facility] [phone] Performing Lab: [place] [address] [facility] [phone] CBC LEUKOCYTES [#/VOLUME] IN BLOOD BY AUTOMATED COUNT 9.5 10*3/u L 3.6 - 11.2 11/27 Specimen Type: BLOOD No comment entered. Ordering Provider: LIDIA SWANSON Report Released Date/Time: Nov 25, 2024 04:28 PM Reporting Lab: [place] [address] [facility] [phone] Performing Lab: [phone] [place] [address] CBC ERYTHROCYTE S [#/VOLUME] IN BLOOD BY AUTOMATED COUNT 4.19 10*6/u L 4.10 - 5.70 11/27 Specimen Type: BLOOD No comment entered. Ordering Provider: LIDIA SWANSON Report Released Date/Time: Nov 25, 2024 04:28 PM Reporting Lab: [place] [address] [facility] [address] Performing Lab: [place] [address] [facility] [phone] [place] [address] CBC HEMOGLOBIN [MASS/VOLUM E] IN BLOOD 13.7 g/dL 13.1 - 16.8 11/27 Specimen Type: BLOOD No comment entered. Ordering Provider: LIDIA SWANSON Report Released Date/Time: Nov 25, 2024 04:28 PM Reporting Lab: [place] [address] [facility] [phone] Performing Lab: [facility] [address] [facility] [phone] [facility] CBC HEMATOCRIT [VOLUME FRACTION] OF BLOOD 42.3 38.2 - 48.4 11/27 Specimen Type: BLOOD No comment entered. Ordering Provider: LIDIA SWANSON Report Released Date/Time: Nov 25, 2024 04:28 PM Reporting Lab: [place] [address] [facility] [address] Performing Lab: [place] [address] [facility] [address] [facility] CBC MCV [ENTITIC VOLUME] BY AUTOMATED COUNT 101.0 fL 80.0 - 100.0 11/27 H Specimen Type: BLOOD No comment entered. Ordering Provider: LIDIA SWANSON Report Released Date/Time: Nov 25, 2024 04:28 PM Reporting Lab: [place] [address] [facility] [phone] Performing Lab: [place] [address] [facility] [address] [facility] CBC MCH [ENTITIC MASS] BY AUTOMATED COUNT 32.7 pg 27.0 - 34.0 11/27 Specimen Type: BLOOD No comment entered. Ordering Provider: LIDIA SWANSON Report Released Date/Time: Nov 25, 2024 04:28 PM Reporting Lab: [place] [address] [facility] [phone] Performing Lab: [address] [address] [facility] CBC MCHC [MASS/VOLUM E] BY AUTOMATED COUNT 32.4 g/dL 33.0 - 36.0 11/27 L Specimen Type: BLOOD No comment entered. Ordering Provider: LIDIA SWANSON Report Released Date/Time: Nov 25, 2024 04:28 PM Reporting Lab: [address] [address] [facility] [address] [address] [facility] CBC PLATELETS [#/VOLUME] IN BLOOD BY AUTOMATED COUNT 222 10*3/u L 150 - 400 11/27 Specimen Type: BLOOD No comment entered. Ordering Provider: LIDIA SWANSON Report Released Date/Time: Nov 25, 2024 04:28 PM Reporting Lab: [address] [address] Performing Lab: [address] [address] [facility] CBC PLATELET MEAN VOLUME [ENTITIC VOLUME] IN BLOOD BY AUTOMATED COUNT 10.6 fL 7.5 - 11.2 11/27 Specimen Type: BLOOD No comment entered. Ordering Provider: LIDIA SWANSON Report Released Date/Time: Nov 25, 2024 04:28 PM Reporting Lab: [place] [address] [facility] [address] Performing Lab: [address] [address] [facility] CBC ERYTHROCYTE DISTRIBUTIO N WIDTH [RATIO] BY AUTOMATED COUNT 14.1 11.8 - 15.1 11/27 Specimen Type: BLOOD No comment entered. Ordering Provider: LIDIA SWANSON Report Released Date/Time: Nov 25, 2024 04:28 PM Reporting Lab: [place] [address] [facility] [address] Performing Lab: [address] [address] [facility] CBC LYMPHOCYTES /100 LEUKOCYTES IN BLOOD BY AUTOMATED COUNT 17 11/27 Specimen Type: BLOOD No comment entered. Ordering Provider: LIDIA SWANSON Report Released Date/Time: Nov 25, 2024 04:28 PM Reporting Lab: [place] [address] [facility] [address] Performing Lab: [address] [address] [facility] CBC MONOCYTES/1 00 LEUKOCYTES IN BLOOD BY AUTOMATED COUNT 9 11/27 Specimen Type: BLOOD No comment entered. Ordering Provider: LIDIA SWANSON Report Released Date/Time: Nov 25, 2024 04:28 PM Reporting Lab: [facility] [address] [place] [address] Performing Lab: [facility] [address] [facility] [address] [facility] CBC NEUTROPHILS /100 LEUKOCYTES IN BLOOD BY AUTOMATED COUNT 72 11/27 Specimen Type: BLOOD No comment entered. Ordering Provider: LIDIA SWANSON Report Released Date/Time: Nov 25, 2024 04:28 PM Reporting Lab: [facility] [address] [place] [address] Performing Lab: [address] [address] [facility] CBC EOSINOPHILS /100 LEUKOCYTES IN BLOOD BY AUTOMATED COUNT 2 11/27 Specimen Type: BLOOD No comment entered. Ordering Provider: LIDIA SWANSON Report Released Date/Time: Nov 25, 2024 04:28 PM Reporting Lab: [address] [address] Performing Lab: [address] [address] [facility] CBC BASOPHILS/1 00 LEUKOCYTES IN BLOOD BY AUTOMATED COUNT 1 11/27 Specimen Type: BLOOD No comment entered. Ordering Provider: LIDIA SWANSON Report Released Date/Time: Nov 25, 2024 04:28 PM Reporting Lab: [address] [address] Performing Lab: [address] [address] [facility] CBC LYMPHOCYTES [#/VOLUME] IN BLOOD BY AUTOMATED COUNT 1.61 10*3/u L 0.77 - 4.50 11/27 Specimen Type: BLOOD No comment entered. Ordering Provider: LIDIA SWANSON Report Released Date/Time: Nov 25, 2024 04:28 PM Reporting Lab: [address] [address] Performing Lab: [address] [address] [facility] CBC MONOCYTES [#/VOLUME] IN BLOOD BY AUTOMATED COUNT 0.84 10*3/u L 0.19 - 0.80 11/27 H Specimen Type: BLOOD No comment entered. Ordering Provider: LIDIA SWANSON Report Released Date/Time: Nov 25, 2024 04:28 PM Reporting Lab: [address] [address] Performing Lab: [address] [phone] CBC NEUTROPHILS [#/VOLUME] IN BLOOD BY AUTOMATED COUNT 6.83 10*3/u L 2.10 - 8.00 11/27 Specimen Type: BLOOD No comment entered. Ordering Provider: LIDIA SWANSON Report Released Date/Time: Nov 25, 2024 04:28 PM Reporting Lab: [address] [address] Performing Lab: [address] [address] [facility] CBC EOSINOPHILS [#/VOLUME] IN BLOOD BY AUTOMATED COUNT 0.16 10*3/u L 0.00 - 0.60 11/27 Specimen Type: BLOOD No comment entered. Ordering Provider: LIDIA SWANSON Report Released Date/Time: Nov 25, 2024 04:28 PM Reporting Lab: [address] [address] Performing Lab: [address] [address] [facility] CBC BASOPHILS [#/VOLUME] IN BLOOD BY AUTOMATED COUNT 0.06 10*3/u L 0.00 - 0.20 11/27 Specimen Type: BLOOD No comment entered. Ordering Provider: LIDIA SWANSON Report Released Date/Time: Nov 25, 2024 04:28 PM Reporting Lab: [address] [address] Performing Lab: [facility] [address] [place] [phone] [facility] RENAL PANEL CREATININE [MASS/VOLUM E] IN SERUM OR PLASMA 1.20 mg/dL 0.7 - 1.3 11/27 Specimen Type: PLASMA Comment: No hemolysis noted. Ordering Provider: LIDIA SWANSON Report Released Date/Time: Nov 25, 2024 03:08 PM Reporting Lab: [address] [address] Performing Lab: [address] [address] [facility] RENAL PANEL UREA NITROGEN [MASS/VOLUM E] IN SERUM OR PLASMA 15.1 mg/dL 9.0 - 25.0 11/27 Specimen Type: PLASMA Comment: No hemolysis noted. Ordering Provider: LIDIA SWANSON Report Released Date/Time: Nov 25, 2024 03:08 PM Reporting Lab: [address] [address] Performing Lab: [address] [address] [facility] RENAL PANEL GLUCOSE [MASS/VOLUM E] IN SERUM OR PLASMA 137 mg/dL 72 - 99 11/27 H Specimen Type: PLASMA Comment: No hemolysis noted. Ordering Provider: LIDIA SWANSON Report Released Date/Time: Nov 25, 2024 03:08 PM Reporting Lab: [address] [address] Performing Lab: [address] [address] [facility] RENAL PANEL SODIUM [MOLES/VOLU ME] IN SERUM OR PLASMA 140 meq/L 136 - 145 11/27 Specimen Type: PLASMA Comment: No hemolysis noted. Ordering Provider: LIDIA SWANSON Report Released Date/Time: Nov 25, 2024 03:08 PM Reporting Lab: [address] [address] Performing Lab: [facility] [address] [place] [address] [facility] RENAL PANEL POTASSIUM [MOLES/VOLU ME] IN SERUM OR PLASMA 4.1 meq/L 3.5 - 5 11/27 Specimen Type: PLASMA Comment: No hemolysis noted. Ordering Provider: LIDIA SWANSON Report Released Date/Time: Nov 25, 2024 03:08 PM Reporting Lab: [address] [address] Performing Lab: [address] [address] [facility] RENAL PANEL CHLORIDE [MOLES/VOLU ME] IN SERUM OR PLASMA 106 meq/L 98 - 107 11/27 Specimen Type: PLASMA Comment: No hemolysis noted. Ordering Provider: LIDIA SWANSON Report Released Date/Time: Nov 25, 2024 03:08 PM Reporting Lab: [address] [address] Performing Lab: [address] [address] [facility] RENAL PANEL CARBON DIOXIDE, TOTAL [MOLES/VOLU ME] IN SERUM OR PLASMA 29 meq/L 22 - 31 11/27 Specimen Type: PLASMA Comment: No hemolysis noted. Ordering Provider: LIDIA SWANSON Report Released Date/Time: Nov 25, 2024 03:08 PM Reporting Lab: [address] [address] Performing Lab: [address] [address] [facility] RENAL PANEL CALCIUM [MASS/VOLUM E] IN SERUM OR PLASMA 8.9 mg/dL 8.4 - 10.4 11/27 Specimen Type: PLASMA Comment: No hemolysis noted. Ordering Provider: LIDIA SWANSON Report Released Date/Time: Nov 25, 2024 03:08 PM Reporting Lab: [facility] [address] [facility] [address] Performing Lab: [facility] [address] [facility] [address] [facility] RENAL PANEL PHOSPHATE [MASS/VOLUM E] IN SERUM OR PLASMA 2.3 mg/dL 2.3 - 4.7 11/27 Specimen Type: PLASMA Comment: No hemolysis noted. Ordering Provider: LIDIA SWANSON Report Released Date/Time: Nov 25, 2024 03:08 PM Reporting Lab: [facility] [address] [facility] [address] Performing Lab: [address] [address] [facility] RENAL PANEL ALBUMIN [MASS/VOLUM E] IN SERUM OR PLASMA 3.7 g/dL 3.4 - 5 11/27 Specimen Type: PLASMA Comment: No hemolysis noted. Ordering Provider: LIDIA SWANSON Report Released Date/Time: Nov 25, 2024 03:08 PM Reporting Lab: [facility] [address] [facility] [address] Performing Lab: [address] [address] [facility] RENAL PANEL GLOMERULAR FILTRATION RATE/1.73 SQ M.PREDICTED [VOLUME RATE/AREA] IN SERUM, PLASMA OR BLOOD BY CREATININE- BASED FORMULA (CKD-EPI 2020) 66.3 60 11/27 Specimen Type: PLASMA Comment: No hemolysis noted. Ordering Provider: LIDIA SWANSON Report Released Date/Time: Nov 25, 2024 03:08 PM Reporting Lab: [facility] [address] [facility] [address] Performing Lab: [facility] [address] [facility] [address] [facility] MAGNESIUM MAGNESIUM [MASS/VOLUM E] IN SERUM OR PLASMA 2.4 mg/dL 1.6 - 2.6 11/27 Specimen Type: PLASMA Comment: No hemolysis noted. Ordering Provider: LIDIA SWANSON Report Released Date/Time: Nov 26, 2024 09:37 AM Reporting Lab: [address] [address] Performing Lab: [address] [address] [facility] B12 COBALAMIN (VITAMIN B12) [MASS/VOLUM E] IN SERUM OR PLASMA 418 pg/mL 213 - 816 11/27 Specimen Type: SERUM No comment entered. Ordering Provider: LIDIA SWANSON Report Released Date/Time: Nov 26, 2024 08:37 PM Reporting Lab: [address] [address] Performing Lab: [address] [address] [facility] FOLATE (ST-DE) FOLATE [MASS/VOLUM E] IN SERUM OR PLASMA 6.7 ng/mL 7 - 20 11/27 L Specimen Type: SERUM No comment entered. Ordering Provider: LIDIA SWANSON Report Released Date/Time: Nov 26, 2024 08:37 PM Reporting Lab: [address] [address] Performing Lab: [address] [address] [facility] BASIC METABOLIC PANEL CREATININE [MASS/VOLUM E] IN SERUM OR PLASMA 1.18 mg/dL 0.7 - 1.3 11/27 Specimen Type: PLASMA Comment: No hemolysis noted. Ordering Provider: ADINA HARDY Report Released Date/Time: Nov 27, 2024 05:33 AM Reporting Lab: [address] [address] Performing Lab: [address] [address] [facility] BASIC METABOLIC PANEL UREA NITROGEN [MASS/VOLUM E] IN SERUM OR PLASMA 13.7 mg/dL 9.0 - 25.0 11/27 Specimen Type: PLASMA Comment: No hemolysis noted. Ordering Provider: ADINA HARDY Report Released Date/Time: Nov 27, 2024 05:33 AM Reporting Lab: [address] [address] Performing Lab: [address] [address] [facility] BASIC METABOLIC PANEL GLUCOSE [MASS/VOLUM E] IN SERUM OR PLASMA 106 mg/dL 72 - 99 11/27 H Specimen Type: PLASMA Comment: No hemolysis noted. Ordering Provider: ADINA HARDY Report Released Date/Time: Nov 27, 2024 05:33 AM Reporting Lab: [address] [address] Performing Lab: [address] [address] [place] [address] BASIC METABOLIC PANEL SODIUM [MOLES/VOLU ME] IN SERUM OR PLASMA 141 meq/L 136 - 145 11/27 Specimen Type: PLASMA Comment: No hemolysis noted. Ordering Provider: ADINA HARDY Report Released Date/Time: Nov 27, 2024 05:33 AM Reporting Lab: [address] [address] Performing Lab: [address] [address] [facility] BASIC METABOLIC PANEL POTASSIUM [MOLES/VOLU ME] IN SERUM OR PLASMA 4.4 meq/L 3.5 - 5 11/27 Specimen Type: PLASMA Comment: No hemolysis noted. Ordering Provider: ADINA HARDY Report Released Date/Time: Nov 27, 2024 05:33 AM Reporting Lab: [address] [address] Performing Lab: [address] [place] [address] [facility] BASIC METABOLIC PANEL CHLORIDE [MOLES/VOLU ME] IN SERUM OR PLASMA 104 meq/L 98 - 107 11/27 Specimen Type: PLASMA Comment: No hemolysis noted. Ordering Provider: ADINA HARDY Report Released Date/Time: Nov 27, 2024 05:33 AM Reporting Lab: [address] [address] Performing Lab: [address] [address] [facility] BASIC METABOLIC PANEL CARBON DIOXIDE, TOTAL [MOLES/VOLU ME] IN SERUM OR PLASMA 26 meq/L 22 - 31 11/27 Specimen Type: PLASMA Comment: No hemolysis noted. Ordering Provider: ADINA HARDY Report Released Date/Time: Nov 27, 2024 05:33 AM Reporting Lab: [place] [address] [facility] [address] Performing Lab: [place] [address] [facility] [address] [facility] BASIC METABOLIC PANEL CALCIUM [MASS/VOLUM E] IN SERUM OR PLASMA 8.6 mg/dL 8.4 - 10.4 11/27 Specimen Type: PLASMA Comment: No hemolysis noted. Ordering Provider: ADINA HARDY Report Released Date/Time: Nov 27, 2024 05:33 AM Reporting Lab: [place] [address] [facility] [address] Performing Lab: [address] [address] [facility] BASIC METABOLIC PANEL GLOMERULAR FILTRATION RATE/1.73 SQ M.PREDICTED [VOLUME RATE/AREA] IN SERUM, PLASMA OR BLOOD BY CREATININE- BASED FORMULA (CKD-EPI 2020) 67.6 60 11/27 Specimen Type: PLASMA Comment: No hemolysis noted. Ordering Provider: ADINA HARDY Report Released Date/Time: Nov 27, 2024 05:33 AM Reporting Lab: [place] [address] [facility] [address] Performing Lab: [address] [address] [facility] MAGNESIUM MAGNESIUM [MASS/VOLUM E] IN SERUM OR PLASMA 2.8 mg/dL 1.6 - 2.6 11/27 H Specimen Type: PLASMA Comment: No hemolysis noted. Ordering Provider: ADINA HARDY Report Released Date/Time: Nov 27, 2024 05:33 AM Reporting Lab: [place] [address] [facility] [address] Performing Lab: [address] [address] [facility] PHOSPHOROU S PHOSPHATE [MASS/VOLUM E] IN SERUM OR PLASMA 4.1 mg/dL 2.3 - 4.7 11/27 Specimen Type: PLASMA Comment: No hemolysis noted. Ordering Provider: ADINA HARDY Report Released Date/Time: Nov 27, 2024 05:38 AM Reporting Lab: [place] [address] [facility] [address] Performing Lab: [address] [address] [facility] Vital Signs Combined list of inpatient and outpatient Vital Signs from Department of Defense and Veterans Affairs, ranging from 12 months to all on record, depending upon the facility. Vital Sign Value Date Comments Source SYSTOLIC BLOOD PRESSURE 123 11/28/2024 04:33:34 [facility] DIASTOLIC BLOOD PRESSURE 73 11/28/2024 04:33:34 [facility] PULSE OXIMETRY 93 % 11/28/2024 04:33:34 [facility] PAIN 0 11/28/2024 04:33:34 [facility] TEMPERATURE 97.6 11/28/2024 04:33:34 [facility] PULSE 76 11/28/2024 04:33:34 [facility] RESPIRATION 18 11/28/2024 04:33:34 [facility] PAIN 0 11/27/2024 00:23:00 [facility] SYSTOLIC BLOOD PRESSURE 124 11/26/2024 01:32:36 [facility] DIASTOLIC BLOOD PRESSURE 67 11/26/2024 01:32:36 [facility] PULSE OXIMETRY 95 % 11/26/2024 01:32:36 [facility] PAIN 0 11/26/2024 01:32:36 [facility] TEMPERATURE 97 11/26/2024 01:32:36 [facility] PULSE 56 11/26/2024 01:32:36 [facility] RESPIRATION 18 11/26/2024 01:32:36 [facility] SYSTOLIC BLOOD PRESSURE 104 11/25/2024 14:50:04 [facility] DIASTOLIC BLOOD PRESSURE 70 11/25/2024 14:50:04 [facility] PULSE OXIMETRY 95 % 11/25/2024 14:50:04 [facility] TEMPERATURE 97.4 11/25/2024 14:50:04 [facility] PULSE 64 11/25/2024 14:50:04 [facility] RESPIRATION 16 11/25/2024 14:50:04 [facility] SYSTOLIC BLOOD PRESSURE 118 09/17/2024 13:59:41 [facility] DIASTOLIC BLOOD PRESSURE 75 09/17/2024 13:59:41 [facility] PULSE OXIMETRY 95 09/17/2024 13:59:41 [facility] WEIGHT 263.9 09/17/2024 13:59:41 [facility] BMI 33 kg/m2 09/17/2024 13:59:41 [facility] PAIN 0 09/17/2024 13:59:41 [facility] TEMPERATURE 97.5 09/17/2024 13:59:41 [facility] PULSE 81 09/17/2024 13:59:41 [facility] RESPIRATION 20 09/17/2024 13:59:41 [facility] Encounters Combined list of: 1) Encounters from Department of [facility] Affairs facilities going backup to the last 18 months, not all [place] inpatient encounters are included; 2) Encounters from the Department of [facility] facilities going backup to 280 months. Location Location Details Encounter Type Encounter Number Reason For Visit Attending Provider ADM Date DC Date Status Disposition Source [facility] Outpatient Encounter [id number] 08/29 [facility] OFFICE O/P EST MOD 30 MIN [id number] Diagnos is: ICD-10- CM J44.9 Chronic obstruc tive pulmona ry disease , unspeci fied Ellis LUTHER NDRDANA 08/29 [facility] Outpatient Encounter [id number] 09/01 [facility] Outpatient Encounter [id number] 09/04 [facility] OFFICE O/P EST MOD 30 MIN [id number] Diagnos is: ICD-10- CM Z72.0 Tobacco use HUA SUTHERLAND 09/09 [facility] Outpatient Encounter [id number] 09/09 [facility] Outpatient Encounter [id number] YANNA HILLMAN 09/10 [facility] Outpatient Encounter [id number] OVERTURFWinter A 09/10 [facility] Outpatient Encounter [id number] 09/17 [facility] IMG RTA DETCJ/MNTR DS STAFF [id number] Diagnos is: ICD-10- CM Z13.5 Encount er for screeni ng for eye and ear disorde ELIU Tsai 09/17 [facility] Outpatient Encounter [id number] Diagnos is: ICD-10- CM Z13.5 Encount er for screeni ng for eye and ear disorde Emely Simeon 09/17 [facility] OFFICE O/P EST MOD 30 MIN [id number] Diagnos is: ICD-10- CM 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 OFFICE O/P EST MOD 30 MIN [id number] Diagnos is: ICD-10- CM R06.00 Dyspnea , unspeci fied OU,JIAFU 10/09 [facility] EST MOD 30 MIN [id number] Diagnos is: ICD-10- CM H34.211 Partial retinal artery occlusi on, right eye ABHINAV DUQUE 10/21 [facility] FUNDUS PHOTOGRAPH Y W/I&R [id number] Diagnos is: ICD-10- CM H35.9 Unspeci fied retinal disorde r JAMAR SMITH 10/21 [facility] OFF/OP CNSLTJ NEW/EST LOW 30 [id number] Diagnos is: ICD-10- CM Z86.010 Persona l history of colonic polyps Emely BRANDT 10/23 [facility] Outpatient Encounter [id number] 11/07 [facility] Outpatient Encounter [id number] 11/08 [facility] OFFICE O/P EST LOW 20 MIN [id number] Diagnos is: ICD-10- CM F17.210 Nicotin e depende nce, cigaret shara, uncompl icated HUA SUTHERLAND A 11/11 [facility] Outpatient Encounter [id number] 11/12 [facility] Outpatient Encounter [id number] 11/13 [facility] ACUPUNCT W/O STIMUL 15 MIN [id number] Diagnos is: ICD-10- CM F17.200 Nicotin e depende nce, unspeci fied, uncompl icated MYRTLE KAY 11/20 [facility] [id number] Diagnos is: ICD-10- CM 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.89 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 RENETTA BLACK 12/11 [facility] Outpatient Encounter [id number] 12/16 [facility] OFFICE O/P EST MOD 30 MIN [id number] Diagnos is: ICD-10- CM I63.9 Cerebra l infarct ion, unspeci fied OU,JIAFU 12/18 [facility] Outpatient Encounter [id number] 12/19 [facility] Outpatient Encounter [id number] ELSI SCOTT 12/22 [facility] Outpatient Encounter [id number] ELSI SCOTT 12/22 [facility] ACUPUNCT W/O STIMUL 15 MIN [id number] Diagnos is: ICD-10- CM Z72.0 Tobacco use MYRTLE KAY 12/25 [facility] Outpatient Encounter [id number] 12/30 [facility] ACUPUNCT W/O STIMUL 15 MIN [id number] Diagnos is: ICD-10- CM Z72.0 Tobacco use MYRTLE KAY 01/01 [facility] MYOCRD STRAIN IMG SPCKL TRCK [id number] Diagnos is: ICD-10- CM 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 OU,JIAFU 01/02 [facility] Outpatient Encounter [id number] MYRTLE KAY 01/08 [facility] Outpatient Encounter [id number] 01/20 [facility] Outpatient Encounter [id number] 01/20 [facility] OFFICE O/P EST LOW 20 MIN [id number] Diagnos is: ICD-10- CM Z01.818 Encount er for other preproc edural examina fabricio TOVAR,ER IN A 01/21 [facility] Outpatient Encounter [id number] 01/21 [facility] OFFICE O/P EST SF 10 MIN [id number] Diagnos is: ICD-10- CM K63.5 Polyp of colon LYNN LEROY TTHEW H 01/21 [facility] Outpatient Encounter [id number] KEDAR FONTAINE 01/21 [facility] Outpatient Encounter [id number] ARNOLD MTZ 01/22 [facility] Outpatient Encounter [id number] 01/[address] [facility] Outpatient Encounter [id number] 02/12 [facility] Outpatient Encounter [id number] 03/03 [facility] Outpatient Encounter [id number] [id number] 5 Diagnos is: ICD-10- CM J44.9 Chronic obstruc tive pulmona ry disease , unspeci fied OUJIAFU 03/19 [facility] Outpatient Encounter [id number] 4 Diagnos is: ICD-10- CM I63.9 Cerebra l infarct ion, unspeci fied RIZWANA CLOUD [place] C 03/20 [facility] Outpatient Encounter [id number] 3 OVERTURF,Winter BROWN A 03/[address] [facility] Outpatient Encounter [id number] 04/08 [facility] OFFICE O/P EST MOD 30 MIN [id number] Diagnos is: ICD-10- CM J44.9 Chronic obstruc tive pulmona ry disease , unspeci fied Bessie GARCIA 04/08 [facility] Outpatient Encounter [id number] 04/10 [facility] Outpatient Encounter [id number] [id number] Diagnos is: ICD-10- CM I63.9 Cerebra l infarct ion, unspeci fied DAYANAEllisRIZWANA Melton 04/16 [facility] Outpatient Encounter [id number] Bessie GARCIA 04/16 [facility] Outpatient Encounter [id number] 04/16 [facility] Outpatient Encounter [id number] [id number] 05/11 [facility] REM INTERROG DEV EVAL SCRMS [id number] [id number] 3 Diagnos is: ICD-10- CM G46.4 Cerebel lar stroke syndrom e DAYANAEllisRIZWANA Melton 05/11 [facility] Outpatient Encounter [id number] [id number] 05/13 [facility] Outpatient Encounter [id number] [id number] 05/14 [facility] Outpatient Encounter [id number] [id number] 05/18 [facility] Outpatient Encounter [id number] [id number] Bessie GARCIA HERE 05/19 [facility] Outpatient Encounter [id number] 05/19 [facility] OFFICE O/P EST MOD 30 MIN [id number] [id number] Diagnos is: ICD-10- CM I48.0 Paroxys mal atrial fibrill ation Bessie GARCIA HERE 05/20 [facility] QNHP OL DIG ASSMT&MGMT 5-10 [id number] [id number] Diagnos is: ICD-10- CM I48.91 Unspeci fied atrial fibrill ation ROSEANNE VIZCARRA 05/20 [facility] Outpatient Encounter [id number] 05/20 [facility] Outpatient Encounter [id number] [id number] Diagnos is: ICD-10- CM I48.0 Paroxys mal atrial fibrill ation JACOBO TELLO 05/21 [facility] Outpatient Encounter [id number] 05/21 [facility] Outpatient Encounter [id number] [id number] 4 Diagnos is: ICD-10- CM G46.4 Cerebel lar stroke syndrom e CINDY SMILEY 05/22 [facility] [facility] Outpatient Encounter [id number] [id number] ZULEMA MORRISON ANY N 05/22 [facility] Outpatient Encounter 78195-4.66 [id number] 05/25 [facility] Outpatient Encounter [id number] [id number] 05/25 [facility] Outpatient Encounter [id number] [id number] 06/05 [facility] Outpatient Encounter 13195-3.65 [id number] 1 ZULEMA MORRISON ANY N 06/05 [facility] Outpatient Encounter [id number] [id number] 06/09 [facility] MTMS BY PHARM LANDSCAPE MANAGER 15 MIN 33859-3.65 [id number] Diagnos is: ICD-10- CM Z51.81 Encount er for therape utic drug level monitor ROSEANNE Boswell 06/15 [facility] Outpatient Encounter [id number] [id number] KALEB MORRISONBarbie VIRGEN N 06/15 [facility] MTMS BY PHARM EST 15 MIN 13839-6.65 [id number] Diagnos is: ICD-10- CM Z51.81 Encount er for therape utic drug level monitor ROSEANNE Boswell M 07/06 [facility] Outpatient Encounter [id number] [id number] 07/30 [facility] Outpatient Encounter [id number] [id number] 4 07/30 [facility] REM INTERROG DEV EVAL SCRMS [id number] [id number] 7 Diagnos is: ICD-10- CM G46.4 Cerebel lar stroke syndrom e PANDA,RIZWANA SANTIAGO C 07/31 [facility] Outpatient Encounter [id number] [id number] Bessie GARCIA 07/31 [facility] Outpatient Encounter [id number] [id number] 08/03 [facility] Outpatient Encounter [id number] [id number] Diagnos is: ICD-10- CM I48.0 Paroxys mal atrial fibrill atJACOBO Benítez 08/03 [facility] Outpatient Encounter [id number] [id number] 08/05 [facility] Outpatient Encounter [id number] [id number] 08/07 [facility] Outpatient Encounter [id number] [id number] 08/07 [facility] OFFICE O/P EST MOD 30 MIN 37012-7.65 [id number] Diagnos is: ICD-10- CM J44.1 Chronic obstruc tive pulmona ry disease w (acute) exacerb Bessie Carpenter HERE08/07 [facility] MTMS BY PHARM EST 15 MIN [id number] [id number] Diagnos is: ICD-10- CM Z51.81 Encount er for therape utic drug level monitor ROSEANNE Boswell 08/10 [facility] Outpatient Encounter [id number] [id number] 2 Bessie GARCIA 08/12 [facility] Outpatient Encounter [id number] [id number] 1 08/28 [facility] OFFICE O/P EST MOD 30 MIN [id number] [id number] 1 Diagnos is: ICD-10- CM R06.00 Dyspnea , unspeci fied MAGO ROBERTSON T 08/28 [facility] Outpatient Encounter [id number] [id number] 09/01 [facility] Outpatient Encounter [id number] [id number] 09/02 [facility] Outpatient Encounter [id number] [id number] 9 PRINCE,KALEBF ANY N 09/04 [facility] SPACER WITHOUT MASK [id number] [id number] 9 Diagnos is: ICD-10- CM J44.9 Chronic obstruc tive pulmona ry disease , unspeci fied MAGO ROBERTSON DT T 09/16 [facility] OFFICE O/P EST MOD 30 MIN [id number] [id number] 8 Diagnos is: ICD-10- CM I48.0 Paroxys mal atrial fibrill ation URIEL SHEPHERD D 09/17 [facility] Outpatient Encounter [id number] [id number] 5 09/21 [facility] SYNCH AUDIO-ONLY NEW HIGH 60 12589-7.65 [id number] 9 Diagnos is: ICD-10- CM I48.0 Paroxys mal atrial fibrill ation RIZWANA CLOUD IL C 09/21 [facility] Outpatient Encounter [id number] [id number] 5 09/22 [facility] Outpatient Encounter [id number] [id number] 7 09/22 [facility] Outpatient Encounter [id number] [id number] 4 09/22 [facility] PH1 ASSMT&MGMT NQHP 5-10 [id number] [id number] 5 Diagnos is: ICD-10- CM Z02.9 Encount er for adminis trative examina tions, unspeci Geronimo Dunn 09/23 [facility] PH1 ASSMT&MGMT NQHP 21-30 [id number] [id number] 7 Diagnos is: ICD-10- CM I25.10 Athscl heart disease of [place] coronar y artery w/o ang pctrs DUNCAN IRIZARRY 09/23 [facility] Outpatient Encounter [id number] [id number] 09/29 [facility] Outpatient Encounter [id number] [id number] 5 Bessie GARCIA 10/06 [facility] Outpatient Encounter [id number] [id number] 10/20 [facility] OFF/OP CONSLTJ NEW/EST HI 55 [id number] [id number] Diagnos is: ICD-10- CM I48.19 Other persist ent atrial fibrill ation RIZWANA CLOUD 10/20 [facility] ASSMT&MGMT NQHP 21-30 [id number] [id number] 3 Diagnos is: ICD-10- CM I48.0 Paroxys mal atrial fibrill ation ARTEMIO BARNETT 10/23 [facility] 1 ASSMT&MGMT NQHP 21-30 [id number] [id number] 7 Diagnos is: ICD-10- CM I48.0 Paroxys mal atrial fibrill ation Winter ERICKSON 11/02 [facility] PLACE NEEDLE IN VEIN 96287-8.19 [id number] 8 Diagnos is: ICD-10- CM I48.19 Other persist ent atrial fibrill ation ABBY PETTY 11/06 [facility] SYNCH AUDIO-ONLY EST MOD 30 [id number] [id number] 3 Diagnos is: ICD-10- CM I48.19 Other persist ent atrial fibrill ation RIZWANA CLOUD C 11/09 [facility] Outpatient Encounter [id number] [id number] 8 11/20 [facility] PH1 ASSMT&MGMT NQHP - 57419-2.65 [id number] 2 Diagnos is: ICD-10- CM G46.4 Cerebel lar stroke syndrom e Winter ERICKSON 11/20 [facility] Restoratio n of Cardiac Rhythm, Single 38770-5.45 [id number] Admit Reason: ATRIAL FIBRILA TION MARIBEL ESTES 11/25 [facility] Inpatient Encounter [id number] [id number] 2 11/25 [facility] Inpatient Encounter [id number] [id number] 2 Diagnos is: ICD-10- CM I48.91 Unspeci fied atrial fibrill ation JOSE DUPONT 11/25 [facility] Inpatient Encounter [id number] [id number] 1 KIRSTEN DAN 11/25 [facility] Inpatient Encounter [id number] [id number] 2 BAKARI GRANADOS 11/25 [facility] Inpatient Encounter [id number] [id number] 7 BAKARI GRANADOS 11/25 [facility] Inpatient Encounter 51185-2.65 [id number] 3 BAKARI GRANADOS 11/25 [facility] Inpatient Encounter [id number] [id number] 1 BARBARAEDWARDO STAPLETON M 11/25 [facility] Inpatient Encounter [id number] [id number] 0 BARBARAEDWARDO STAPLETON NA M 11/25 [facility] Inpatient Encounter [id number] [id number] 8 BARBARAFELII NA M 11/25 [facility] Inpatient Encounter [id number] [id number] 6 BARBARAEDWARDO STAPLETON NA M 11/26 [facility] IP/OBS CNSLTJ NEW/EST MOD 60 [id number] [id number] 2 Diagnos is: ICD-10- CM I48.0 Paroxys mal atrial fibrill ation JOSE DUPONT 11/26 [facility] Inpatient Encounter [id number] [id number] 1 EDWARDO JIMENEZ 11/26 [facility] Inpatient Encounter [id number] [id number] 7 NULL,ANDREA FERNANDEZ N 11/26 [facility] Inpatient Encounter [id number] [id number] 8 NULL,ANDREA FERNANDEZ N 11/26 [facility] Inpatient Encounter 52094-5.65 [id number] 1 NULL,ANDREA FERNANDEZ N 11/26 [facility] NQHP OL DIG ASSMT&MGMT 5-10 [id number] [id number] Diagnos is: ICD-10- CM I48.0 Paroxys mal atrial fibrill ation LEFTY MAYA 11/26 [facility] MTMS BY PHARM ADDL 15 MIN [id number] [id number] 9 Diagnos is: ICD-10- CM Z51.81 Encount er for therape utic drug level monitor LEFTY Garrett 11/26 [facility] Inpatient Encounter [id number] [id number] 5 11/26 [facility] Inpatient Encounter 45075-3.65 [id number] 7 NULL,ANDREA FERNANDEZ N 11/26 [facility] Inpatient Encounter 63238-7.65 [id number] 3 JOHANNY SY 11/26 [facility] Inpatient Encounter [id number] [id number] 5 JOHANNY SY 11/26 [facility] Inpatient Encounter [id number] [id number] 9 BARBARAEDWARDO STAPLETON M 11/26 [facility] Inpatient Encounter [id number] [id number] 6 BARBARAEDWARDO STAPLETON M 11/27 [facility] Inpatient Encounter 20984-9.65 [id number] 6 BARBARAEDWARDO STAPLETON M 11/27 [facility] Inpatient Encounter 02805-2.65 [id number] 3 BARBARAEDWARDO STAPLETON M 11/27 [facility] Inpatient Encounter 96604-4.65 [id number] 3 NULL,ANDREA JIM N 11/27 [facility] Inpatient Encounter [id number] [id number] 9 NULL,ANDREA FERNANDEZ N 11/27 [facility] Inpatient Encounter 71231-9.65 [id number] 0 NULL,NADREA FERNANDEZ N 11/27 [facility] SBSQ HOSP IP/OBS MODERATE 35 14404-5.65 [id number] 2 Diagnos is: ICD-10- CM I48.0 Paroxys mal atrial fibrill atJOSE Cardenas 11/27 [facility] Inpatient Encounter [id number] [id number] 0 11/27 [facility] Inpatient Encounter [id number] [id number] 5 11/27 [facility] OFFICE O/P EST MOD 30 MIN 44303-3.65 [id number] 8 Diagnos is: ICD-10- CM Z01.818 Encount er for other preproc edural examina tiMEGAN Cooney 11/27 [facility] PT EDUCATION NOC INDIVID 17463-9.65 [id number] 8 Diagnos is: ICD-10- CM I48.3 Typical atrial flutter JACOBO TELLO 11/27 [facility] Inpatient Encounter [id number] [id number] 6 SHAYE FISHER 11/27 [facility] Inpatient Encounter [id number] [id number] 2 ANA PAULA AMATO 11/27 [facility] 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 Inpatient Encounter 12689-6.65 [id number] [address] Ld 11/27 [facility] Inpatient Encounter [id number] [id number] 3 MONCADATERRA 11/28 [facility] Inpatient Encounter 95543-6.65 [id number] 1 TERRA MONCADA 11/28 [facility] Inpatient Encounter [id number] [id number] 2 TERRA MONCADA 11[facility]28 [facility] Inpatient Encounter [id number] [id number] 3 ALFRED OSORIO 11/28 [facility] Inpatient Encounter [id number] [id number] 8 FRANCIS RICKETTS 11/28 [facility] Inpatient Encounter [id number] [id number] 5 11/28 [facility] SBSQ HOSP IP/OBS MODERATE 35 [id number] [id number] 9 Diagnos is: ICD-10- CM I48.0 Paroxys mal atrial fibrill URIEL Velasquez 11/28 [facility] Inpatient Encounter [id number] [id number] 2 ALFRED OSORIO A 11/28 [facility] Inpatient Encounter [id number] [id number] 8 ALFRED OSORIO A 11/28 [facility] Inpatient Encounter [id number] [id number] 9 LILIAMFRANCIS ZACARIAS N 11/28 [facility] Inpatient Encounter [id number] [id number] 0 MARIE OSORIOT A 11/28 [facility] Inpatient Encounter [id number] [id number] 1 ALFRED OSORIO A 11/28 [facility] Outpatient Encounter [id number] [id number] 8 11/30 [facility] Outpatient Encounter [id number] [id number] 9 11/30 [facility] Outpatient Encounter [id number] [id number] 7 11/30 [facility] En[facility] [id number] [id number] 6 11/30 [facility]/OP EST MAY X REQ PHY/QHP 29707-9.65 [id number] Diagnos is: ICD-10- CM I48.0 Paroxys mal atrial fibrill ation MIKE MERCADO 12/02 [facility] Outpatient Encounter [id number] [id number] 6 12/03 [facility] Outpatient Encounter [id number] [id number] 2 12/06 [facility] SYNCH AUDIO-ONLY EST HIGH 40 25908-6.65 [id number] 3 Diagnos is: ICD-10- CM I48.0 Paroxys mal atrial fibrill ation RIZWANA CLOUD C 12/07 [facility] PH1 ASSMT&MGMT NQHP 21-30 47513-4.65 [id number] 8 Diagnos is: ICD-10- CM I48.0 Paroxys mal atrial fibrill ation RESHMANOISIS,ER IN K 12/07 [facility] Outpatient Encounter [id number] [id number] 12/09 [facility] REM INTERROG DEV EVAL SCRMS [id number] [id number] 9 Diagnos is: ICD-10- CM I48.0 Paroxys mal atrial fibrill ation RIZWANA CLOUD C 12/09 [facility] PH1 ASSMT&MGMT NQHP 5-10 [id number] [id number] Diagnos is: ICD-10- CM I48.0 Paroxys mal atrial fibrill ation Winter ERICKSON 12/14 [facility] Social History Combined list of available smoking, tobacco, and other social history from 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 Social History Type Response Date Comment Sourc e Tobacco smoking status [facility][NOTE 3]TOBACCO USE EVERY DAY CIGARETTES 04/08/2024 [facility] History of tobacco use VA-TOBACCO NEVER USED OTHER TYPE 04/08/2024 [facility] History of tobacco use VA-TOBACCO USER EVERY DAY 02/15/2023 [facility] History of tobacco use VA-TOBACCO USER EVERY DAY 02/19/2022 [facility] History of tobacco use VA-TOBACCO QUIT < 1 YEAR 10/11/2020 [facility] History of tobacco use QUIT TOBACCO IN THE LAST 12 MONTHS 02/14/2017 [facility] History of tobacco use YAKELIN TOBACCO MEDS INTERESTED 09/05/2015 [facility] History of tobacco use YAKELIN TOBACCO MEDS INTERESTED 08/24/2014 [facility] History of tobacco use YAKELIN TOBACCO MEDS INTERESTED 08/05/2013 [facility] Plan of Care List of future care activities from Department of [facility] Affairs facilities. Additional future care activities may be listed in the Assessment and Plan section. Date/Time Care Activity Care Activity Detail Chanelli ty 01/25/2025 AMBULATORY - MEDICINE AMBULATORY - MEDICI NE [facility]
--- OUTSIDE RECORDS SUMMARY | 2024-12-14 21:21 | XMS_ITS | Clinical Summary ---
Author Organization [facility] Address [address] [place] [address] Care Team Providers Care Masonry Installer Name Role Phone Jm Cedillo MD Primary Care Provider +1- [phone] Social History Tobacco Use Types Packs/Day Years [...] Health Maintenance Insurance MEDICARE MEDICAID Care Teams Masonry Installer Relationship Specialty Start Date End Date Jm Cedillo MD PCP - General INTERNAL MEDICINE 12/23/18
--- OUTSIDE RECORDS SUMMARY | 2024-12-14 21:21 | XMS_ITS | Referral Summary ---
Author Organization 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
--- OUTSIDE RECORDS SUMMARY | 2024-12-14 21:21 | XMS_ITS | Clinical Summary ---
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
--- OUTSIDE RECORDS SUMMARY | 2024-12-14 21:21 | XMS_ITS | Encounter Summary ---
Author Organization [facility] Address [address] [place] [address] Care Team Providers Care Post Doctoral Researcher Name Role Phone Jm Cedillo MD Primary Care Provider [phone]- [phone] Encounter Details Date Type Department Care Team (Late st Contact Info) Description 08/17/2017 Abstract [facility] [address] [place] [address] , Generic MD Rob Social History Tobacco [...] on filedocumented in this encounter Care Teams Post Doctoral Researcher Relationship Specialty Start Date End Date Jm Cedillo MD PCP - General INTERNAL MEDICINE 12/23/18 documented as of this encounter
== END 2024-12-14 20:55 | disposition left against medical advice (07) ==
PROVIDERS: Emergency Provider Emergency Medicine; PCP Family Medicine
DX: R06.00 Dyspnea, unspecified (principal); R00.1 Bradycardia, unspecified; I45.2 Bifascicular block
CPT/HCPCS: 36415; 71046; 80053; 83880; 84484; 85025; 85610; 85730; 93005; 99199

== ENCOUNTER 2024-12-29 20:04 | Emergency (ER) | payer OTHER, SELFPAY ==
--- NOTE | ~2024-12-29 | CT_ITS ---
EXAMINATION: CTA abdomen pelvis DATE: 12/29/2024 21:51 INDICATION: gi bleed TECHNIQUE: Computed tomography angiography of the abdomen and pelvis was performed with 100 mL Omnipa que-350 intravenous contrast in the arterial phase. Automated exposure control and iterative reconstr uction technique were employed. The dose-length product was 1579.69 mGy-cm. COMPARISON: CT abdomen pelvis 10/13/2020. FINDINGS: Lower thorax: Suture material in the right middle lobe. Bibasilar scar/atelectasis. Cardiomegaly. Api kaden and possibly posterior wall left ventricular thinning. Coronary artery calcifications. Liver: Normal. Biliary/Gallbladder: Gallbladder is absent. No bile duct dilation. Pancreas: No mass or duct dilation. Spleen: Normal. Adrenals:No mass. Kidneys: No suspicious mass, obstructing stone, or hydronephrosis. Multiple bilateral renal cysts and lesions that are too small to characterize but also likely represent cysts. Punctate nonobstructing right midpole calcification GI tract: Tiny, 1 mm hyperdense focus in the duodenal bulb. No small or large bowel dilation. Appendi x not confidently visualized. Diverticulosis without diverticulitis. Mesentery/Peritoneum: No ascites, mass, or free air. Retroperitoneum: No mass. Atherosclerotic calcifications of intra-abdominal arterial vessels. Short s egment calcified and noncalcified plaque causing severe stenosis of the origin of the left renal emma ry. Calcified and noncalcified plaque causing severe stenosis in the origins of the bilateral interna l iliac arteries and the mid right external iliac artery. Pelvis: Partial obscuration by metal artifact. Pelvic organs are within normal limits. Soft Tissues: Small uncomplicated fat-containing umbilical and bilateral inguinal hernias Bones: No acute osseous finding. Partially visualized, uncomplicated appearing right hip arthroplast y hardware. IMPRESSION: Tiny hyperdense focus in the duodenal bulb, may represent ingested material or a very small focus of hemorrhage. Consider endoscopy and/or RBC labeled bleeding scan. Severe stenoses at the origins of the left renal artery and bilateral internal iliac arteries. Severe stenosis in the mid right external iliac artery. Reviewed, dictated and finalized at location K. IMPRESSION: Tiny hyperdense focus in the duodenal bulb, may represent ingested material or a very small focus of hemorrhage. Consider endoscopy and/or RBC labeled bleedin g scan. Severe stenoses at the origins of the left renal artery and bilateral internal iliac arteries. Severe stenosis in the mid right external iliac artery.
[2024-12-29 20:06] VITALS: BP 166/91; PULSE 85; RESP 16; TEMP 36.6; O2SAT 95
--- OUTSIDE RECORDS SUMMARY | 2024-12-29 20:06 | XMS_ITS | Encounter Summary ---
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 Organization [facility] Address [address] [place] [address] Care Team Providers Care Binder Sorter Name Role Phone JESSICA KAY Primary Care [...] ACTIV E [place] HIGH Jun 03, 2013 [phone] JOSEPHINE DiamondROSITA SPOUSE MEDICARE (WNR) MEDICARE (M) PART A Jul 04, 2016 PART A [id number] JOSEPHINE DiamondELI PATIENT MEDICARE (WNR) MEDICARE (M) PART B Jul 04, 2016 PART B [id number] JOSEPHINE Diamond,ELI PATIENT MEDICARE (WNR) MEDICARE (M) PART A Jul 04, 2016 PART A [id number] EMMASO N,ELI PATIENT MEDICARE (WNR) MEDICARE (M) PART B Jul 04, 2016 PART B [id number] [phone] RICHARDSO N,ELI PATIENT MEDICARE (WNR) MEDICARE (M) PART A Jul 04, 2016 PART A [id number] [phone] RICHARDSO N,ELI PATIENT MEDICARE (WNR) MEDICARE (M) PART B Jul 04, 2016 PART B [id number] RICHARDSO N,ELI PATIENT MEDICARE (WNR) MEDICARE (M) PART A Jul 04, 2016 PART A [id number] RICHARDSO N,ELI PATIENT MEDICARE (WNR) MEDICARE (M) PART B Jul 04, 2016 PART B [id number] RICHARDSO N,ELI PATIENT PRIME THERAPEUTI CS RX PRESCRIPT ION RX PLAN Jun 03, [id number] [phone] RICHARDSO N,ELI PATIENT Selected Encounter This section includes the information on record at ID for the Encounter. Date/Time Encounter Type Encounter Description Reason Pro vider Source IHE Encounter Template Text not used by ID
--- OUTSIDE RECORDS SUMMARY | 2024-12-29 20:07 | XMS_ITS | Encounter Summary ---
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 Organization [facility] [place] Address [address] [place] [address] Care Team Providers Care Director Records Management Name Role Phone JESSICA KAY Primary Care [...] ACTIV E [place] HIGH Jun 03, 2013 [id number] [phone] JOSEPHINE DiamondROSITA SPOUSE MEDICARE (WNR) MEDICARE (M) PART A Jul 04, 2016 PART A [id number] JOSEPHINE DiamondELI PATIENT MEDICARE (WNR) MEDICARE (M) PART B Jul 04, 2016 PART B [id number] [phone] RICHARDSO N,ELI PATIENT MEDICARE (WNR) MEDICARE (M) PART A Jul 04, 2016 PART A [id number] [phone] EMMASO N,ELI PATIENT MEDICARE (WNR) MEDICARE (M) PART B Jul 04, 2016 PART B [id number] [phone] EMMASO N,ELI PATIENT MEDICARE (WNR) MEDICARE (M) PART A Jul 04, 2016 PART A [id number] EMMASO N,ELI PATIENT MEDICARE (WNR) MEDICARE (M) PART B Jul 04, 2016 PART B [id number] [phone] EMMASO N,ELI PATIENT MEDICARE (WNR) MEDICARE (M) PART A Jul 04, 2016 PART A [id number] EMMASO N,ELI PATIENT MEDICARE (WNR) MEDICARE (M) PART B Jul 04, 2016 PART B [id number] EMMASO N,ELI PATIENT PRIME THERAPEUTI CS RX PRESCRIPT ION RX PLAN Jun 03, 2013 [id number] [phone] EMMASO N,ELI PATIENT Selected Encounter This section includes the information on record at [place] for the Encounter. Date/Time Encounter Type Encounter Description Reason Pro vider Source Dec 29, 2024 05:09 PM Outpatient Encounter ADMIN PAT ACTIVTIES (MASNONCT) IHE Encounter Template Text not used by [place] Plan of Treatment: Future Appointments (+ 6 [...] 25, 2025 11:05 AM AMBULATORY - MEDICINE [facility] Jan 25, 2025 12:30 PM AMBULATORY - NONE [facility] Jan 27, 2025 06:00 AM AMBULATORY - NONE [facility] Jan 27, 2025 06:15 AM AMBULATORY - MEDICINE [facility] Jan 28, 2025 02:00 PM AMBULATORY - MEDICINE [facility] 2025 01:00 PM AMBULATORY MEDICINE [facility] Active, Pending, and Scheduled Orders [...] Date/Time Test Type Test Details Facility Name Dec 16, 2024 02:45 PM Consult Order ANESTHESIA ECONSULT OUTPT STL Cons Records Analysis Manager's Choice [facility] Jan 25, 2025 12:00 AM Imaging - CT Scan Order CT HEART & VENOUS MAPPING W/3D [facility] Jan 27, 2025 06:00 AM Laboratory - Chemi stry Order BASIC METABOLIC PANEL GREEN LI/HEP BLD/PLAS PLASMA PRE-OP [facility] Jan 27, 2025 06:00 AM Laboratory - Chemi stry Order CBC BLOOD PRE-OP [facility] Jan 27, 2025 06:00 AM Laboratory - Chemi stry Order PT/INR NEW (STL-MA) BLOOD PLASMA PRE-OP [facility] Encounter Notes: All associated encounter notes This section contains the clinical notes associated to the Encounter. Date/Time Encounter Note(s) Provider Source Dec 29, 2024 04:09 PM ADMINISTRATIVE NOT E: LOCAL TITLE: CCC: SCHEDULING ADMINISTRATION STANDARD TITLE: ADMINISTRATIVE NOTE DATE OF NOTE: DEC 29, 2024@16:09:14 ENTRY DATE: DEC 29, 2024@16:09:14 AUTHOR: KAY HERRERA EXP COSIGNER: URGENCY: STATUS: COMPLETED Caller Verification Emergency Contact: ROSETTE RUELAS Emergency Contact Caller/Recipient Relation to Patient: Self Caller Name: ELI RUELAS Administrative Administrative Note Reason: Other Administrative Note Comments: scheduled ccc uc appt, nausea, vomiting, no pact appt in disposition time. IMPORTANT: This note was created by [facility] Clinical Contact Center staff. Please do not alert the staff member by adding them as a signer for future communications. Alerts are not monitored by this user. /loreta/ KAY VERDUGO Signed: 12/29/2024 16:09 KAY HERRERA [facility]
--- OUTSIDE RECORDS SUMMARY | 2024-12-29 20:08 | XMS_ITS | Referral Summary ---
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
--- OUTSIDE RECORDS SUMMARY | 2024-12-29 20:08 | XMS_ITS | Patient Health Record ---
Author Organization [facility] Address [address] [place] [address] Care Team Providers Care Tug Captain Name Role Phone PrinceLauriedavidGregg scalesrobertnoam Primary Care Provider [phone] Reason For Referral No Information Medications Medication [...] Coverage Start Date Coverage End Date Medicaid [facility] Primary Only [address] [place] [address] [id number] Jose Toledo Self - patient is the insured [facility] [place] [address] [place] [address] [id number] Hamilton summers Joes Self - patient is the insured Medical (General) History Medical History History ICD Code High blood pressure Stroke-2013
--- OUTSIDE RECORDS SUMMARY | 2024-12-29 20:08 | XMS_ITS | Encounter Summary ---
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 Address [address] [place] [address] Care Team Providers Care Aligning Checker Name Role Phone JESSICA KAY Primary Care [...] ACTIV E [place] HIGH Jun 03, 2013 [id number] [phone] JOSEPHINE DiamondROSITA SPOUSE MEDICARE (WNR) MEDICARE (M) PART B Jul 04, 2016 PART B [id number] HERMES GRIMMY PATIENT MEDICARE (WNR) MEDICARE (M) PART A Jul 04, 2016 PART A [id number] HERMES GRIMMY PATIENT MEDICARE (WNR) MEDICARE (M) PART A Jul 04, 2016 PART A [id number] [phone] RICHARDSO N,ELI PATIENT MEDICARE (WNR) MEDICARE (M) PART B Jul 04, 2016 PART B [id number] RICHARDSO N,ELI PATIENT MEDICARE (WNR) MEDICARE (M) PART A Jul 04, 2016 PART A [id number] RICHARDSO N,ELI PATIENT MEDICARE (WNR) MEDICARE (M) PART B Jul 04, 2016 PART B [id number] RICHARDSO N,ELI PATIENT MEDICARE (WNR) MEDICARE (M) PART A Jul 04, 2016 PART A [id number] EMMASO N,ELI PATIENT MEDICARE (WNR) MEDICARE (M) PART B Jul 04, 2016 PART B [id number] EMMASO N,ELI PATIENT PRIME THERAPEUTI CS RX PRESCRIPT ION RX PLAN Jun 03, 2013 [id number] [phone] EMMASO N,ELI PATIENT Selected Encounter This section includes the information on [place] for the Encounter. Date/Time Encounter Type Encounter Description Reason Pro vider Source Dec 29, 2024 07:38 AM Outpatient Encounter EVENT (HISTORICAL) IHE Encounter Template Text not used by [place] Plan of Treatment: Future Appointments (+ 6 [...] 25, 2025 11:05 AM AMBULATORY - MEDICINE [facility] Jan 25, 2025 12:30 PM AMBULATORY - NONE [facility] Jan 27, 2025 06:00 AM AMBULATORY - NONE [facility] Jan 27, 2025 06:15 AM AMBULATORY - MEDICINE [facility] Jan 28, 2025 02:00 PM AMBULATORY - MEDICINE [facility] 2025 01:00 PM AMBULATORY - MEDICINE [facility] Active, Pending, and Scheduled Orders This section includes a listing of several types of active, pending, and scheduled orders, including clinic medications orders, diagnostic test orders, procedure orders and consult orders; where the start date of the order is 45 days before the date of the Encounter or 45 days after the date of theEncounter. The data comes from all [facility]. Test Date/Time Test Type Test Details Facility Name Dec 16, 2024 02:45 PM Consult Order ANESTHESIA ECONSULT OUTPT STL Cons Communications Analyst's Choice [facility] Jan 25, 2025 12:00 AM Imaging - CT Scan Order CT HEART & VENOUS MAPPING W/3D [facility] Jan 27, 2025 06:00 AM Laboratory - Chemi stry Order BASIC METABOLIC PANEL GREEN LI/HEP BLD/PLAS PLASMA PRE-OP [facility] Jan 27, 2025 06:00 AM Laboratory - Chemi stry Order CBC BLOOD PRE-OP [facility] Jan 27, 2025 06:00 AM Laboratory - Chemi stry Order PT/INR NEW (STL-MA) BLOOD PLASMA PRE-OP [facility]
--- OUTSIDE RECORDS SUMMARY | 2024-12-29 20:08 | XMS_ITS | Encounter Summary ---
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 [facility] Address [address] [place] [address] Care Team Providers Care Fire Watcher Name Role Phone JESSICA KAY Primary Care [...] ACTIV E [place] HIGH Jun 03, 2013 [id number] [phone] JOSEPHINE DiamondROSITA SPOUSE MEDICARE (WNR) MEDICARE (M) PART A Jul 04, 2016 PART A [id number] JOSEPHINE DiamondELI PATIENT MEDICARE (WNR) MEDICARE (M) PART B Jul 04, 2016 PART B [id number] [phone] JOSEPHINE DiamondELI PATIENT MEDICARE (WNR) MEDICARE (M) PART A Jul 04, 2016 PART A [id number] EMMASO N,ELI PATIENT MEDICARE (WNR) MEDICARE (M) PART B Jul 04, 2016 PART B [id number] EMMASO N,ELI PATIENT MEDICARE (WNR) MEDICARE (M) PART A Jul 04, 2016 PART A [id number] EMMASO N,ELI PATIENT MEDICARE (WNR) MEDICARE (M) PART B Jul 04, 2016 PART B [id number] EMMASO N,ELI PATIENT MEDICARE (WNR) MEDICARE (M) PART A Jul 04, 2016 PART A [id number] EMMASO N,ELI PATIENT MEDICARE (WNR) MEDICARE (M) PART B Jul 04, 2016 PART B [id number] [phone] EMMASO NHERMESY PATIENT PRIME THERAPEUTI CS RX PRESCRIPT ION RX PLAN Jun 03, 2013 [id number] [phone] JOSEPHINE N,ELI PATIENT Selected Encounter This section includes the information on record at [place] for the Encounter. Date/Time Encounter Type Encounter Description Reason Pro vider Source Dec 29, 2024 04:16 PM Outpatient Encounter TELEPHONE TRIAGE IHE Encounter Template Text not used by [place] Plan of Treatment: Future Appointments (+ 6 months) and Future Tests (+/- 45 days) The Plan of Treatment section includes future care activities for the patient from all [place] treatmentfacilities. This section includes future appointments and future orders which are active, pending or scheduled. Future Appointments This section includes appointments that were scheduled to occur 6 months from the date of the Encounter, up to a maximum of 20 appointments. The data comes from all [place] treatment facilities. Appointment Date/Time Appointment Type Appointme nt Facility Name Jan 25, 2025 11:05 AM AMBULATORY - MEDICINE [facility] Jan 25, 2025 12:30 PM AMBULATORY - NONE [facility] Jan 27, 2025 06:00 AM AMBULATORY - NONE [facility] Jan 27, 2025 06:15 AM AMBULATORY - MEDICINE [facility] Jan 28, 2025 02:00 PM [...] theEncounter. The data comes from all [facility]. Test Date/Time Test Type Test Details Facility Name Dec 16, 2024 02:45 PM Consult Order ANESTHESIA ECONSULT OUTPT STL Cons Rescue Instructor's Choice [facility] Jan 25, 2025 12:00 AM Imaging - CT Scan Order CT HEART & VENOUS MAPPING W/3D [facility] Jan 27, 2025 06:00 AM Laboratory - Chemi stry Order BASIC METABOLIC PANEL GREEN LI/HEP BLD/PLAS PLASMA PRE-OP [facility] Jan 27, 2025 06:00 AM Laboratory - Chemi stry Order PT/INR NEW (STL-MA) BLOOD PLASMA PRE-OP [facility] Jan 27, 2025 06:00 AM Laboratory - Chemi stry Order CBC BLOOD PRE-OP [facility] Encounter Notes: All associated encounter notes This section contains the clinical notes associated to the Encounter. Date/Time Encounter Note(s) Provider Source Dec 29, 2024 04:16 PM RN PROGRESS NOTE: LOCAL TITLE: [facility]: CLINICAL TRIAGE STANDARD TITLE: RN PROGRESS NOTE DATE OF NOTE: DEC 29, 2024@16:16:31 ENTRY DATE: DEC 29, 2024@16:16:31 AUTHOR: JULIANO MCFADDEN COSIGNER: URGENCY: STATUS: COMPLETED Caller Verification Caller/Recipient Relation to Patient: Self Caller Name: ELI RUELAS Emergency Contact: ROSETTE RUELAS Triage Summary Conducted triage/discussed symptoms Pain Score: 0 (No Pain) Utilized the Triage Tool: Yes Chief Complaint: Vomiting, Nausea Nurse's Recommendation / WHEN: Within 24 Hours Nurse's Recommendation / WHERE: Appointment Patient Disposition Patient/Caregiver agrees to plan of care: Yes Patient WHERE: Appointment Patient WHEN: Within 24 hours Nursing Plan and Disposition Referred Patient for In-Person Appt Transferred patient to Sched & Admin-Apt Other course(s) of action Generated msg to PACT/Provider Nurse Summary Nurse Summary: Wallace c/o nausea and vomiting for 1 month. Wallace states he had a cardioversion 1 month ago and was started on Dofetilide for AFIB 1 month ago and since then he has had nausea and vomiting episodes. Wallace denies worsening SOB, LH/dizziness, fever, CP, sweating, cool clammy skin at this time. Wallace recommended to be seen within 24 hours and offered CCC UC if no appointment available in clinic. Alerting PACT for follow up. Clinical Contact Center Codes Clinic/Location: V15 STL PHONE CCC RN Decision Support System Output: Triage Complete Triage Date: 12/29/2024, 04:02 PM Triage Note: Decision Support Tool Used: ClearTriage Protocols Used (2): Vomiting, Nausea Disposition for Call: See Provider within 24 Hours Protocol Used: Vomiting Protocol-Based Disposition: See Provider within 24 Hours Video visit offered and caller accepted Positive Triage Question: * [1] MILD or MODERATE vomiting AND [2] present > 48 hours (2 days) (Exception: Mild vomiting with associated diarrhea.) Care Advice Discussed: * Reasons To Call Back - Vomit contains bile (green color) - Constant stomach pain lasting more than 2 hours - Signs of dehydration (such as no urination over 12 hours, very lightheaded) - You become worse Negative Triage Questions: * Shock suspected (e.g., cold/pale/clammy skin, too weak to stand, low BP, rapid pulse) * Difficult to awaken or acting confused (e.g., disoriented, slurred speech) * Sounds like a life-threatening emergency to the triager * [1] Vomiting AND [2] contains red blood or black (coffee ground) material (Exception: Few red streaks in vomit that only happened once.) * Severe pain in one eye * Recent head injury (within last 3 days) * Recent abdominal injury (within last 3 days) * [1] Insulin-dependent diabetes (Type I) AND [2] glucose > 400 mg/dL (22 mmol/L) * [1] Vomiting AND [2] hernia is more painful or swollen than usual * [1] SEVERE vomiting (e.g., 6 or more times/day) AND [2] present > 8 hours (Exception: Patient sounds well, is drinking liquids, does not sound dehydrated, and vomiting has lasted less than 24 hours.) * [1] MODERATE to SEVERE vomiting (e.g., 3 or more times/day) AND [2] age > 60 years * Severe headache (e.g., excruciating) (Exception: Similar to previous migraines.) * High-risk adult (e.g., diabetes mellitus, brain tumor, V-P shunt, hernia) * [1] Drinking very little AND [2] dehydration suspected (e.g., no urine > 12 hours, very dry mouth, very lightheaded) * Patient sounds very sick or weak to the triager * [1] Vomiting AND [2] abdomen looks much more swollen than usual * [1] Vomiting AND [2] contains bile (green color) * [1] Constant abdominal pain AND [2] present > 2 hours * [1] Fever > 103 F (39.4 C) AND [2] not able to get the fever down using Fever Care Advice * [1] Fever > 101 F (38.3 C) AND [2] age > 60 years * [1] Fever > 100 F (37.8 C) AND [2] bedridden (e.g., CVA, chronic illness, recovering from surgery) * [1] Fever > 100 F (37.8 C) AND [2] weak immune system (e.g., HIV positive, cancer chemo, splenectomy, organ transplant, chronic steroids) * Taking any of the following medications: digoxin (Lanoxin), lithium, theophylline, phenytoin (Dilantin) * Fever present > 3 days (72 hours) Protocol Used: Nausea Protocol-Based Disposition: See Provider within 3 Days Video visit offered but caller response not recorded Positive Triage Question: * Nausea lasts > 1 week Negative Triage Questions: * Shock suspected (e.g., cold/pale/clammy skin, too weak to stand, low BP, rapid pulse) * Sounds like a life-threatening emergency to the triager * Unable to walk, or can only walk with assistance (e.g., requires support) * Difficulty breathing * [1] Insulin-dependent diabetes (Type I) AND [2] glucose > 400 mg/dL (22 mmol/L) * [1] Drinking very little AND [2] dehydration suspected (e.g., no urine > 12 hours, very dry mouth, very lightheaded) * Patient sounds very sick or weak to the triager * Fever > 104 F (40 C) * [1] Fever > 101 F (38.3 C) AND [2] age > 60 years * [1] Fever > 100 F (37.8 C) AND [2] bedridden (e.g., CVA, chronic illness, recovering from surgery) * [1] Fever > 100 F (37.8 C) AND [2] diabetes mellitus or weak immune system (e.g., HIV positive, cancer chemo, splenectomy, organ transplant, chronic steroids) * Taking any of the following medications: digoxin (Lanoxin), lithium, theophylline, phenytoin (Dilantin) * Yellowish color of the skin or white of the eye (i.e., jaundice) * Fever present > 3 days (72 hours) * Taking prescription medication that could cause nausea (e.g., narcotics/opiates, antibiotics, OCPs, many others) IMPORTANT: This note was created by [facility] Clinical Contact Center staff. Please do not alert the staff member by adding them as a signer for future communications. Alerts are not monitored by this user. /loreta/ KATHARINE HESTER, RN REGISTERED NURSE Signed: 12/29/2024 16:16 Receipt Acknowledged By: * AWAITING SIGNATURE * KYLER MORRISON * AWAITING SIGNATURE * [facility] GARCIA MARY E [facility]
--- OUTSIDE RECORDS SUMMARY | 2024-12-29 20:08 | XMS_ITS | Encounter Summary ---
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 Organization [facility] [place] Address [address] [place] [address] Care Team Providers Care Cardiopulmonary Technologist Chief Name Role Phone JESSICA KAY Primary Care [...] ACTIV E [place] HIGH Jun 03, 2013 [phone] JOSEPHINE DiamondROSITA SPOUSE MEDICARE (WNR) MEDICARE (M) PART A Jul 04, 2016 PART A [id number] HERMES GRIMMY PATIENT MEDICARE (WNR) MEDICARE (M) PART B Jul 04, 2016 PART B [id number] RICHARDSO N,ELI PATIENT MEDICARE (WNR) MEDICARE (M) PART A Jul 04, 2016 PART A [id number] RICHARDSO N,ELI PATIENT MEDICARE (WNR) MEDICARE (M) PART B Jul 04, 2016 PART B [id number] RICHARDSO N,ELI PATIENT MEDICARE (WNR) MEDICARE (M) PART A Jul 04, 2016 PART A [id number] RICHARDSO N,ELI PATIENT MEDICARE (WNR) MEDICARE (M) PART B Jul 04, 2016 PART B [id number] RICHARDSO N,ELI PATIENT MEDICARE (WNR) MEDICARE (M) PART A Jul 04, 2016 PART A [id number] [id number] EMMASO N,ELI PATIENT MEDICARE (WNR) MEDICARE (M) PART B Jul 04, 2016 PART B [id number] [facility] [phone] EMMASO N,ELI PATIENT PRIME THERAPEUTI CS RX PRESCRIPT ION RX PLAN Jun 03, 2013 [id number] [phone] EMMASO N,ELI PATIENT Selected Encounter This section includes the information on record at [place] for the Encounter. Date/Time Encounter Type Encounter Description Reason Provider Source Dec 29, 2024 08:00 PM SYNCH AUDIO-ONLY NEW 15 TELEPHONE TRIAGE ICD-10-CM R11.2 Nausea with vomiting, unspecified JOSE MARIA LOZOYA IHRedd Encounter Template Text not used by [place] Assessments - Encounter Diagnoses This section includes the primary and secondary diagnoses documented for the Encounter. Date/Time Primary/Secondary Diagnosis Diagnosis Name Provider Source Dec 29, 2024 08:00 PM PRIMARY Nausea with vomiting, unspecified JOSE MARIA LOZOYA [facility] Dec 29, 2024 08:00 PM SECONDARY Abnormal weight loss JOSE MARIA LOZOYA [facility] Dec 29, 2024 08:00 PM SECONDARY Dyspnea, unspecified JOSE MARIA LOZOYA [facility] Dec 29, 2024 08:00 PM SECONDARY Hematemesis JOSE MARIA LOZOYA [facility] Plan of Treatment: Future Appointments (+ 6 months) and Future Tests (+/- 45 days) The Plan of Treatment section includes future care activities for the patient [facility] [place] [facility] This section includes future appointments and future orders which are active, pending or scheduled. Future Appointments This section includes appointments that were scheduled to occur 6 months from the date of the Encounter, up to a maximum of 20 appointments. The data comes from all [facility]. Appointment Date/Time Appointment Type Appointme nt Facility Name Jan 25, 2025 11:05 AM AMBULATORY - MEDICINE [facility] Jan 25, 2025 12:30 PM AMBULATORY - NONE [facility] Jan 27, 2025 06:00 AM AMBULATORY - NONE [facility] Jan 27, 2025 06:15 AM AMBULATORY - MEDICINE [facility] Jan 28, 2025 02:00 PM AMBULATORY MEDICINE [facility] 2025 01:00 PM AMBULATORY MEDICINE [facility] Active, Pending, and Scheduled Orders This section [...] Consult Order ANESTHESIA ECONSULT OUTPT STL Cons Chief Engineer Production's Choice [facility] Jan 25, 2025 12:00 AM Imaging - CT Scan Order CT HEART & VENOUS MAPPING W/3D [facility] Jan 27, 2025 06:00 AM Laboratory - Chemi stry Order BASIC METABOLIC PANEL GREEN LI/HEP BLD/PLAS PLASMA PRE-OP [facility] Jan 27, 2025 06:00 AM Laboratory - Chemi stry Order PT/INR NEW (STL-MA) BLOOD PLASMA PRE-OP [facility] Jan 27, 2025 06:00 AM Laboratory - Chemi stry Order CBC BLOOD PRE-OP [facility] Encounter Notes: All associated encounter notes This section contains the clinical notes associated to the Encounter. Date/Time Encounter Note(s) Provider Source Dec 29, 2024 07:16 PM URGENT CARE NOTE: LOCAL TITLE: V15 [facility] URGENT CARE VISIT STANDARD TITLE: URGENT CARE NOTE DATE OF NOTE: DEC 29, 2024@19:16 ENTRY DATE: DEC 29, 2024@19:16:42 AUTHOR: CHERYL LOZOYA COSIGNER: URGENCY: STATUS: COMPLETED PRIMARY CARE TEMPLATE Patient is a 69 year old (Mar) WHITE MALE. Patient's identity was verified with at least 2 personal identifiers. *Appointment type: Type of Visit: Phone Visit: Visit conducted by telephone. Location/emergency number confirmed. Emergency contact information was obtained as follows: Confirmed 's Non-VA location for this appointment: Patient's current address [address] [place] [address] Patient's Primary NOK: ROSETTE RUELAS Zoraida Relation: [address] [place] [address] Chief Complaint: Nausea/vomiting/weight loss History of Present Illness: 69 year old male presents for a [facility] TELEPHONE VISIT with complaints of nausea, vomiting, and weight loss. He says that he has been diagnosed with chronic atrial fibrillation has a loop recorder in and has been prescribed Dofetilide (Tikosyn) and Eliquis (Apixaban). He says that since taking the Tikosyn he has been nauseated every day and has lost over 16 pounds because he cannot eat constant nausea. He says on Saturday he vomited a lot and the contents dark colored blood. He says that he has been weaker, fatigued, has not had any energy. He says that he also feels dizzy and light headed. He also says that he has been chronically short of breath. He fever, CP, sweating, cool clammy skin at this time. Henderson recommended to be seen within 24 hours and offered [facility] UC if no appointment available in clinic. Alerting PACT for follow up. PMH/Active Problem List 1) History of colonic polyp 2) Chronic [...] accident 18) PAF - Paroxysmal atrial fibrillation Problem list was reviewed. SOCIAL HISTORY Noncontributory Family History: Noncontributory MEDICATIONS: Active and Recently Outpatient Medications (including Supplies): Active Outpatient Medications [...] ONE CAPSULE BY MOUTH EVERY 12 ACTIVE HOURS - AVOID GRAPEFRUIT/GRAPEFRUIT JUICE WHILE ON THIS MEDICATION. Indication: FOR ATRIAL FIBRILLATION 4) FOLIC ACID 0.4MG TAB TAKE ONE TABLET BY MOUTH ONCE A DAY ACTIVE Indication: FOR FOLIC ACID SUPPLEMENTATION 5) METHOCARBAMOL 500MG TAB TAKE 1 TABLET BY MOUTH THREE TIMES A ACTIVE DAY NEEDED Indication: FOR MUSCLE SPASM Inactive Outpatient Medications Status 1) TABLET CUTTER USE TABLET CUTTER NEEDED Indication: FOR TABLET CUTTING Active Non-VA Medications Status 1) Non-VA LISINOPRIL 40MG TAB 20MG BY MOUTH ONCE A DAY ACTIVE 2) Non-VA METOPROLOL SUCCINATE 50MG SA TAB 25MG BY MOUTH ONCE A ACTIVE DAY 3) Non-VA ROSUVASTATIN CA 40MG TAB 20MG BY MOUTH EVERY EVENING ACTIVE 4) Non-VA [id number]/VILANTERO L25MCG 30D INH 1 PUFF ORAL ACTIVE INHALATION ONCE A DAY 10 Total Medications Compared newly ordered medications and medication changes to active medications and non-VA medications, and then reviewed medications with patient and/or caregiver. All discrepancies noted and reconciled. Patient, or caregiver, was provided with reconciled medications list and advised to provide to all non VA providers. Potential adverse reactions of new medications were discussed with the patient. REVIEW OF SYSTEMS As per HPI, otherwise unremarkable. PHYSICAL EXAMINATION Telephone visit: [facility] telephone visit, limited exam, A&O x3, NAD. Speaks clearly and appropriately. VITALS Most recent vital signs: No data available BMI: 32.5 ASSESSMENT/PLAN 1.Nausea, vomiting, hematemesis, weight loss, dyspnea, requires in person evaluation. Recommend that the be evaluated and treated through the local Emergency Room. Further recommendations will follow the ER Providers evaluation. The Henderson is agreeable with the plan of care and will proceed to the [place]-contracted Emergency Room noted below was instructed to contact the [facility] Emergency Notification line within 72 hours and was provided the phone number: [phone]. [facility] [address] [place] [address] Main phone: [phone] OR [facility] [address] [place] [address] Main phone: [phone] DISPOSITION: NONVA ER FOLLOW UP: Telephone visit: total time spent 18 in which 16 minutes was spent in medical discussion. /loreta/ CHERYL LOZOYA V15 [facility] NURSE PRACTITIONER Signed: 12/29/2024 19:35 Receipt Acknowledged By: * AWAITING SIGNATURE * WES GARCIA * AWAITING SIGNATURE * MARIUSZ ERICKSON * AWAITING SIGNATURE * TAMIKO PEACOCK * AWAITING SIGNATURE * KYLER MORRISON * AWAITING SIGNATURE * JOSE CLOUD CONSTANCE D [facility]
--- OUTSIDE RECORDS SUMMARY | 2024-12-29 20:08 | XMS_ITS | Encounter Summary ---
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 Organization [facility] ([place]) Address [address] [place] [address] Care Team Providers Care Ballistics Expert Name Role Phone JESSICA KAY Primary Care [...] ACTIV E [place]IGH Jun 03, 2013 [phone] JOSEPHINE DiamondROSITA SPOUSE MEDICARE (WNR) MEDICARE (M) PART A Jul 04, 2016 PART A [id number] JOSEPHINE DiamondELI PATIENT MEDICARE (WNR) MEDICARE (M) PART B Jul 04, 2016 PART B [id number] JOSEPHINE DiamondELI PATIENT MEDICARE (WNR) MEDICARE (M) PART A Jul 04, 2016 PART A [id number] [phone] RICHARDSO N,ELI PATIENT MEDICARE (WNR) MEDICARE (M) PART B Jul 04, 2016 PART B [id number] EMMASO N,ELI PATIENT MEDICARE (WNR) MEDICARE (M) PART A Jul 04, 2016 PART A [id number] EMMASO N,ELI PATIENT MEDICARE (WNR) MEDICARE (M) PART B Jul 04, 2016 PART B [id number] RICHARDSO N,ELI PATIENT MEDICARE (WNR) MEDICARE (M) PART A Jul 04, 2016 PART A [id number] EMMASO N,ELI PATIENT MEDICARE (WNR) MEDICARE (M) PART B Jul 04, 2016 PART B [id number] [phone] EMMASO N,ELI PATIENT PRIME THERAPEUTI CS RX PRESCRIPT ION RX PLAN Jun 03, 2013 [id number] [phone] EMMASO N,ELI PATIENT Selected Encounter This section includes the information on record at [place] for the Encounter. Date/Time Encounter Type Encounter Description Reason Provider Source Dec 18, 2024 11:29 AM Outpatient Encounter GENERAL INTERNAL MEDICINE WES GARCIA Encounter Template Text not used by [place] Plan of Treatment: Future Appointments (+ 6 [...] Appointment Type Appointme nt Facility Name Dec 29, 2024 08:00 PM AMBULATORY - NONE [facility] Jan 25, 2025 11:05 AM AMBULATORY - MEDICINE [facility] Jan 25, 2025 12:30 PM AMBULATORY - NONE [facility] Jan 27, 2025 06:00 AM AMBULATORY - NONE [facility] Jan 27, 2025 06:15 AM AMBULATORY - MEDICINE [facility] Jan 28, 2025 02:00 PM AMBULATORY - MEDICINE [facility] 2025 01:00 PM AMBULATORY - MEDICINE [facility] Active, Pending, and Scheduled Orders This section includes a listing of several types of active, pending, and scheduled orders, including clinic medications orders, diagnostic test orders, procedure orders and consult orders; where the start date of the order is 45 days before the date of the Encounter or 45 days after the date of theEncounter. The data comes from all [facility] facilities. Test Date/Time Test Type Test Details Facility Name Dec 16, 2024 02:45 PM Consult Order ANESTHESIA ECONSULT OUTPT STL Cons Agent Producer's Choice [facility] Jan 25, 2025 12:00 AM Imaging - CT Scan Order CT HEART & VENOUS MAPPING W/3D [facility] Jan 27, 2025 06:00 AM Laboratory - Chemi stry Order BASIC METABOLIC PANEL GREEN LI/HEP BLD/PLAS PLASMA PRE-OP [facility] Jan 27, 2025 06:00 AM Laboratory - Chemi stry Order PT/INR NEW (STL-SC) BLOOD PLASMA PRE-OP [facility] Jan 27, 2025 06:00 AM Laboratory - Chemi stry Order CBC BLOOD PRE-OP [facility] Lab Results: +/- 30 days of the encounter This section includes the Chemistry and Hematology Lab Results on record with [place] for the patient. Radiology Reports and Pathology Reports are provided separately, in subsequent sections. Lab Results This section contains the Chemistry/Hematology Results that were resulted 30 days before or 30 daysafter the date of the Encounter. Date/Time Source Result Type Result - Unit Interpretation Reference Range Specimen Type Comment Nov 28, 2024 08:16 AM [facility] MAGNESIUM PLASMA Specimen Type: PLASMA Comment: No hemolysis noted. Ordering Provider: INOCENCIA TITUS Report Released Date/Time: Nov 27, 2024 07:13 PM Reporting Lab: [place] [id number] [facility] [address] Performing Lab: [address] [address] MAGNESIUM 2.1 mg/dL 1.6-2.6 Nov 28, 2024 08:16 AM [facility] RENAL PANEL PLASMA Specimen Type: PLASM A Comment: No hemolysis noted. Ordering Provider: INOCENCIA TITUS Report Released Date/Time: Nov 27, 2024 07:13 PM Reporting Lab: [address] [address] Performing Lab: [address] [address] CREATININE 1.15 mg/dL 0.7-1.3 UREA NITROGEN 13.3 mg/dL 9.0-25.0 GLUCOSE 104 mg/dL H 72-99 SODIUM 139 meq/L 136-145 POTASSIUM 4.1 meq/L 3.5-5 CHLORIDE 105 meq/L 98-107 CARBON DIOXIDE 28 meq/L 22-31 CALCIUM 9.0 mg/dL 8.4-10.4 PHOSPHOROUS 2.8 mg/dL 2.3-4.7 ALBUMIN 3.6 g/dL 3.4-5 EGFR (CKD-EPI 2020) 69.8 >60 Nov 27, 2024 06:35 PM [facility] CBC BLOOD Specimen Type: BLOOD No comment entered. Ordering Provider: LIDIA SWANSON Report Released Date/Time: Nov 25, 2024 04:28 PM Reporting Lab: [address] [address] Performing Lab: [address] [address] WBC 9.5 10*3/uL 3.6-11.2 RBC 4.19 10*6/uL [...] 0.00-0. 20 Nov 27, 2024 02:46 PM [facility] RENAL PANEL PLASMA Specimen Type: PLASM A Comment: No hemolysis noted. Ordering Provider: LIDIA SWANSON Report Released Date/Time: Nov 25, 2024 03:08 PM Reporting Lab: [address] [address] Performing Lab: [address] [address] CREATININE 1.20 mg/dL 0.7-1.3 UREA NITROGEN 15.1 mg/dL 9.0-25.0 GLUCOSE 137 mg/dL H 72-99 SODIUM 140 meq/L 136-145 POTASSIUM 4.1 meq/L 3.5-5 CHLORIDE 106 meq/L 98-107 CARBON DIOXIDE 29 meq/L 22-31 CALCIUM 8.9 mg/dL 8.4-10.4 PHOSPHOROUS 2.3 mg/dL 2.3-4.7 ALBUMIN 3.7 g/dL 3.4-5 EGFR (CKD-EPI 2020) 66.3 >60 Nov 27, 2024 02:00 PM [facility] MAGNESIUM PLASMA Specimen Type: PLASM A Comment: No hemolysis noted. Ordering Provider: LIDIA SWANSON Report Released Date/Time: Nov 26, 2024 09:37 AM Reporting Lab: [address] [address] Performing Lab: [address] [address] MAGNESIUM 2.4 mg/dL 1.6-2.6 Nov 27, 2024 07:29 AM [facility] B12 SERUM Specimen Type: SERUM No comment entered. Ordering Provider: LIDIA SWANSON Report Released Date/Time: Nov 26, 2024 08:37 PM Reporting Lab: [facility] [address] [address] Performing Lab: [facility] [address] [place] [address] B12 418 pg/mL 213-816 Nov 27, 2024 07:29 AM [facility] FOLATE (L-MA) SERUM Specimen Type: SERUM No comment entered. Ordering Provider: LIDIA SWANSON Report Released Date/Time: Nov 26, 2024 08:37 PM Reporting Lab: [facility] [address] [address] Performing Lab: [address] [address] FOLATE (STL-MA) 6.7 ng/mL L 7-20 Nov 27, 2024 06:20 AM [facility] MAGNESIUM PLASMA Specimen Type: PLASM A Comment: No hemolysis noted. Ordering Provider: MARICRUZ HARDY Report Released Date/Time: Nov 27, 2024 05:33 AM Reporting Lab: [facility] [address] [address] Performing Lab: [address] [address] MAGNESIUM 2.8 mg/dL H 1.6-2.6 Nov 27, 2024 06:20 AM [facility] PHOSPHOROUS PLASMA Specimen Type: PLASM A Comment: No hemolysis noted. Ordering Provider: MARICRUZ HARDY Report Released Date/Time: Nov 27, 2024 05:38 AM Reporting Lab: [place] [id number] [facility] [address] Performing Lab: [facility] [address] [place] [address] PHOSPHOROUS 4.1 mg/dL 2.3-4.7 Nov 27, 2024 06:20 AM [facility] BASIC METABOLIC PANEL PLASMA Specimen Type: PL ASMA Comment: No hemolysis noted. Ordering Provider: MARICRUZ HARDY Report Released Date/Time: Nov 27, 2024 05:33 AM Reporting Lab: [address] [address] Performing Lab: [address] [address] CREATININE 1.18 mg/dL 0.7-1.3 UREA NITROGEN 13.7 mg/dL 9.0-25.0 GLUCOSE 106 mg/dL H 72-99 SODIUM 141 meq/L 136-145 POTASSIUM 4.4 meq/L 3.5-5 CHLORIDE 104 meq/L 98-107 CARBON DIOXIDE 26 meq/L 22-31 CALCIUM 8.6 mg/dL 8.4-10.4 EGFR (CKD-EPI 2020) 67.6 >60 Nov 26, 2024 07:45 PM [facility] CBC BLOOD Specimen Type: BLOOD No comment entered. Ordering Provider: LIDIA SWANSON Report Released Date/Time: Nov 25, 2024 04:28 PM Reporting Lab: [address] [address] Performing Lab: [address] [address] WBC 9.3 10*3/uL 3.6-11.2 RBC 4.37 10*6/uL [...] 0.00-0. 20 Nov 26, 2024 02:14 PM [facility] RENAL PANEL PLASMA Specimen Type: PLASM A Comment: No hemolysis noted. Ordering Provider: LIDIA SWANSON Report Released Date/Time: Nov 25, 2024 03:08 PM Reporting Lab: [address] [address] Performing Lab: [address] [address] CREATININE 1.21 mg/dL 0.7-1.3 UREA NITROGEN 13.4 mg/dL 9.0-25.0 GLUCOSE 118 mg/dL H 72-99 SODIUM 139 meq/L 136-145 POTASSIUM 4.4 meq/L 3.5-5 CHLORIDE 106 meq/L 98-107 CARBON DIOXIDE 30 meq/L 22-31 CALCIUM 9.0 mg/dL 8.4-10.4 PHOSPHOROUS 1.8 mg/dL L 2.3-4.7 ALBUMIN 3.6 g/dL 3.4-5 EGFR (CKD-EPI 2020) 65.6 >60 Nov 26, 2024 02:00 PM [facility] MAGNESIUM PLASMA Specimen Type: PLASM A Comment: No hemolysis noted. Ordering Provider: LIDIA SWANSON Report Released Date/Time: Nov 26, 2024 09:37 AM Reporting Lab: [address] [address] Performing Lab: [address] [address] MAGNESIUM 1.8 mg/dL 1.6-2.6 Nov 25, 2024 09:00 PM [facility] MRSA SURVL NARES DNA NARES Specimen Type: [...] Nov 25, 2024 08:59 PM Reporting Lab: [address] [address] Performing Lab: [address] [address] MRSA SURVL NARES DNA Negative Negative Nov 25, 2024 07:05 PM [facility] CBC BLOOD Specimen Type: BLOOD No comment entered. Ordering Provider: LIDIA SWANSON Report Released Date/Time: Nov 25, 2024 04:28 PM Reporting Lab: [address] [address] Performing Lab: [address] [address] WBC 8.8 10*3/uL 3.6-11.2 RBC 4.00 10*6/uL [...] 0.00-0. 20 Nov 25, 2024 06:43 PM [facility] MAGNESIUM PLASMA Specimen Type: PLASM A Comment: No hemolysis noted. Ordering Provider: LIDIA SWANSON Report Released Date/Time: Nov 25, 2024 04:22 PM Reporting Lab: [facility] [address] [place] [address] Performing Lab: [address] [address] MAGNESIUM 1.9 mg/dL 1.6-2.6 Nov 25, 2024 06:43 PM [facility] PHOSPHOROUS PLASMA Specimen Type: PLASM A Comment: No hemolysis noted. Ordering Provider: LIDIA SWANSON Report Released Date/Time: Nov 25, 2024 04:28 PM Reporting Lab: [address] [address] Performing Lab: [address] [address] PHOSPHOROUS 2.5 mg/dL 2.3-4.7 Nov 25, 2024 06:43 PM [facility] COMPREHENSIVE METABOLIC PANEL PLASMA Specimen Type: PLASMA Comment: No hemolysis noted. Ordering Provider: LIDIA SWANSON Report Released Date/Time: Nov 25, 2024 04:22 PM Reporting Lab: [address] [address] Performing Lab: [address] [address] CREATININE 1.27 mg/dL 0.7-1.3 UREA NITROGEN 15.7 [...] Encounter Note(s) Provider Source Dec 14, 2024 11:29 AM NONVA NOTE: LOCAL TITLE: [facility] SELF PRESENTING CARE COORD PLAN STANDARD TITLE: NONVA NOTE DATE OF NOTE: DEC 14, 2024@11:29 ENTRY DATE: DEC 18, 2024@11:29:52 AUTHOR: ROSA TAI COSIGNER: URGENCY: STATUS: COMPLETED Emergency Notification Intake Date Presenting to the Facility: Dec Method of Contact: Notified from ECR worklist Notification ID: [id number] [facility] Referral #: [id number] Clinical Review [facility] Name: Hospital: [facility] Address: [address] [place] [address] [address] City: [place] State: [place] Zip Code: [address] Chief complaint: BREATHING PROBLEM Primary Diagnosis: Disposition Unknown at time of intake note entry No records pertinent to this ER Visit found in [facility]. Faxed request for records to [facility]. /es/ ROSA TAI ADVANCED SALES TRAINING COORDINATOR Signed: 12/18/2024 11:31 Receipt Acknowledged By: 12/21/2024 08:21 /es/ Ofe Brand [employer]SEM[employer] LINE WORKER REGISTERED NURSE 12/18/2024 12:48 /es/ WES [facility] ADULT NURSE PRACTITIONER ROSA TAI [facility]
--- OUTSIDE RECORDS SUMMARY | 2024-12-29 20:08 | XMS_ITS | Encounter Summary ---
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 [place] Organization [facility] Address [address] [place] [address] Care Team Providers Care Top Coater Name Role Phone JESSICA KAY Primary Care [...] ACTIV E [place] HIGH Jun 03, 2013 [id number] [phone] JOSEPHINE DiamondROSITA SPOUSE MEDICARE (WNR) MEDICARE (M) PART A Jul 04, 2016 PART A [id number] HERMES GRIMMY PATIENT MEDICARE (WNR) MEDICARE (M) PART B Jul 04, 2016 PART B [id number] RICHARDSO N,ELI PATIENT MEDICARE (WNR) MEDICARE (M) PART A Jul 04, 2016 PART A [id number] EMMASO N,ELI PATIENT MEDICARE (WNR) MEDICARE (M) PART B Jul 04, 2016 PART B [id number] [phone] EMMASO N,ELI PATIENT MEDICARE (WNR) MEDICARE (M) PART A Jul 04, 2016 PART A [id number] [phone] EMMASO N,ELI PATIENT MEDICARE (WNR) MEDICARE (M) PART B Jul 04, 2016 PART B [id number] [phone] EMMASO N,ELI PATIENT MEDICARE (WNR) MEDICARE (M) PART A Jul 04, 2016 PART A [id number] [phone] EMMASO N,ELI PATIENT MEDICARE (WNR) MEDICARE (M) PART B Jul 04, 2016 PART B [id number] [phone] EMMASO NHERMESY PATIENT PRIME THERAPEUTI CS RX PRESCRIPT ION RX PLAN Jun 03, [id number] [phone] EMMASO N,ELI PATIENT Selected Encounter This section includes the information on record at [place] for the Encounter. 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 Date/Time Primary/Secondary Diagnosis Diagnosis Name Provider Source Dec 23, 2024 09:32 AM PRIMARY Cerebellar stroke syndrome DAVID ERICKSON [facility] Dec 23, 2024 09:32 AM SECONDARY Paroxysmal atrial fibrillation DAVID ERICKSON [facility] Plan of [...] comes from all [facility]. Appointment Date/Time Appointment Type Appointme nt Facility Name Dec 29, 2024 08:00 PM [facility]ORY [facility] NONE [facility] Jan 25, 2025 11:05 AM AMBULATORY - MEDICINE [facility] Jan 25, 2025 12:30 PM AMBULATORY - NONE [facility] Jan 27, 2025 06:00 AM AMBULATORY - NONE [facility] Jan 27, 2025 06:15 AM AMBULATORY - MEDICINE [facility] Jan 28, 2025 02:00 PM AMBULATORY - MEDICINE [facility] 2025 01:00 PM AMBULATORY - MEDICINE [facility] Active, Pending, and Scheduled Orders This [...] comes from all [facility]. Test Date/Time Test Type Test Details Facility Name Dec 16, 2024 02:45 PM Consult Order ANESTHESIA ECONSULT OUTPT STL Cons Ready Mix Truck Driver's Choice [facility] Jan 25, 2025 12:00 AM Imaging - CT Scan Order CT HEART & VENOUS MAPPING W/3D [facility] Jan 27, 2025 06:00 AM Laboratory - Chemi stry Order PT/INR NEW (STL-MA) BLOOD PLASMA PRE-OP [facility] Jan 27, 2025 06:00 AM Laboratory - Chemi stry Order CBC BLOOD PRE-OP [facility] Jan 27, 2025 06:00 AM Laboratory - Chemi stry Order BASIC METABOLIC PANEL GREEN LI/HEP BLD/PLAS PLASMA PRE-OP [facility] Lab Results: +/- [...] Type Comment Nov 28, 2024 08:16 AM [facility] MAGNESIUM PLASMA Specimen Type: PLASMA Comment: No hemolysis noted. Ordering Provider: INOCENCIA TITUS Report Released Date/Time: Nov 27, 2024 07:13 PM Reporting Lab: [address] [address] Performing Lab: [address] [address] MAGNESIUM 2.1 mg/dL 1.6-2.6 Nov 28, 2024 08:16 AM [facility] RENAL PANEL PLASMA Specimen Type: PLASM A Comment: No hemolysis noted. Ordering Provider: INOCENCIA TITUS Report Released Date/Time: Nov 27, 2024 07:13 PM Reporting Lab: [address] [address] Performing Lab: [address] [address] CREATININE 1.15 mg/dL 0.7-1.3 UREA NITROGEN 13.3 mg/dL 9.0-25.0 GLUCOSE 104 mg/dL H 72-99 SODIUM 139 meq/L 136-145 POTASSIUM 4.1 meq/L 3.5-5 CHLORIDE 105 meq/L 98-107 CARBON DIOXIDE 28 meq/L 22-31 CALCIUM 9.0 mg/dL 8.4-10.4 PHOSPHOROUS 2.8 mg/dL 2.3-4.7 ALBUMIN 3.6 g/dL 3.4-5 EGFR (CKD-EPI 2020) 69.8 >60 Nov 27, 2024 06:35 PM [facility] CBC BLOOD Specimen Type: BLOOD No comment entered. Ordering Provider: LIDIA SWANSON Report Released Date/Time: Nov 25, 2024 04:28 PM Reporting Lab: [address] [address] Performing Lab: [address] [address] WBC 9.5 10*3/uL 3.6-11.2 RBC 4.19 10*6/uL [...] 0.00-0. 20 Nov 27, 2024 02:46 PM [facility] RENAL PANEL PLASMA Specimen Type: PLASM A Comment: No hemolysis noted. Ordering Provider: LIDIA SWANSON Report Released Date/Time: Nov 25, 2024 03:08 PM Reporting Lab: [facility] [address] [facility] [address] Performing Lab: [address] [address] CREATININE 1.20 mg/dL 0.7-1.3 UREA NITROGEN 15.1 mg/dL 9.0-25.0 GLUCOSE 137 mg/dL H 72-99 SODIUM 140 meq/L 136-145 POTASSIUM 4.1 meq/L 3.5-5 CHLORIDE 106 meq/L 98-107 CARBON DIOXIDE 29 meq/L 22-31 CALCIUM 8.9 mg/dL 8.4-10.4 PHOSPHOROUS 2.3 mg/dL 2.3-4.7 ALBUMIN 3.7 g/dL 3.4-5 EGFR (CKD-EPI 2020) 66.3 >60 Nov 27, 2024 02:00 PM [facility] MAGNESIUM PLASMA Specimen Type: PLASM A Comment: No hemolysis noted. Ordering Provider: LIDIA SWANSON Report Released Date/Time: Nov 26, 2024 09:37 AM Reporting Lab: [facility] [address] [place] [phone] Performing Lab: [facility] [address] [place] [address] MAGNESIUM 2.4 mg/dL 1.6-2.6 Nov 27, 2024 07:29 AM [facility] B12 SERUM Specimen Type: SERUM No comment entered. Ordering Provider: LIDIA SWANSON Report Released Date/Time: Nov 26, 2024 08:37 PM Reporting Lab: [address] [address] Performing Lab: [address] [address] B12 418 pg/mL 213-816 Nov 27, 2024 07:29 AM [facility] FOLATE (L-GA) SERUM Specimen Type: SERUM No comment entered. Ordering Provider: LIDIA SWANSON Report Released Date/Time: Nov 26, 2024 08:37 PM Reporting Lab: [address] [address] Performing Lab: [address] [address] FOLATE (L-GA) 6.7 ng/mL L 7-20 Nov 27, 2024 06:20 AM [facility] MAGNESIUM PLASMA Specimen Type: PLASM A Comment: No hemolysis noted. Ordering Provider: MARICRUZ HARDY Report Released Date/Time: Nov 27, 2024 05:33 AM Reporting Lab: [address] [address] Performing Lab: [address] [address] MAGNESIUM 2.8 mg/dL H 1.6-2.6 Nov 27, 2024 06:20 AM [facility] PHOSPHOROUS PLASMA Specimen Type: PLASM A Comment: No hemolysis noted. Ordering Provider: MARICRUZ HARDY Report Released Date/Time: Nov 27, 2024 05:38 AM Reporting Lab: [address] [address] Performing Lab: [address] [address] PHOSPHOROUS 4.1 mg/dL 2.3-4.7 Nov 27, 2024 06:20 AM [facility] BASIC METABOLIC PANEL PLASMA Specimen Type: PL ASMA Comment: No hemolysis noted. Ordering Provider: MARICRUZ HARDY Report Released Date/Time: Nov 27, 2024 05:33 AM Reporting Lab: [address] [address] Performing Lab: [address] [address] CREATININE 1.18 mg/dL 0.7-1.3 UREA NITROGEN 13.7 mg/dL 9.0-25.0 GLUCOSE 106 mg/dL H 72-99 SODIUM 141 meq/L 136-145 POTASSIUM 4.4 meq/L 3.5-5 CHLORIDE 104 meq/L 98-107 CARBON DIOXIDE 26 meq/L 22-31 CALCIUM 8.6 mg/dL 8.4-10.4 EGFR (CKD-EPI 2020) 67.6 >60 Nov 26, 2024 07:45 PM [facility] CBC BLOOD Specimen Type: BLOOD No comment entered. Ordering Provider: LIDIA SWANSON Report Released Date/Time: Nov 25, 2024 04:28 PM Reporting Lab: [address] [address] Performing Lab: [address] [address] WBC 9.3 10*3/uL 3.6-11.2 RBC 4.37 10*6/uL [...] 0.00-0. 20 Nov 26, 2024 02:14 PM [facility] RENAL PANEL PLASMA Specimen Type: PLASM A Comment: No hemolysis noted. Ordering Provider: LIDIA SWANSON Report Released Date/Time: Nov 25, 2024 03:08 PM Reporting Lab: [address] [address] Performing Lab: [address] [address] CREATININE 1.21 mg/dL 0.7-1.3 UREA NITROGEN 13.4 mg/dL 9.0-25.0 GLUCOSE 118 mg/dL H 72-99 SODIUM 139 meq/L 136-145 POTASSIUM 4.4 meq/L 3.5-5 CHLORIDE 106 meq/L 98-107 CARBON DIOXIDE 30 meq/L 22-31 CALCIUM 9.0 mg/dL 8.4-10.4 PHOSPHOROUS 1.8 mg/dL L 2.3-4.7 ALBUMIN 3.6 g/dL 3.4-5 EGFR (CKD-EPI 2020) 65.6 >60 Nov 26, 2024 02:00 PM [facility] MAGNESIUM PLASMA Specimen Type: PLASM A Comment: No hemolysis noted. Ordering Provider: LIDIA SWANSON Report Released Date/Time: Nov 26, 2024 09:37 AM Reporting Lab: [address] [address] Performing Lab: [address] [address] MAGNESIUM 1.8 mg/dL 1.6-2.6 Nov 25, 2024 09:00 PM [facility] MRSA SURVL NARES DNA NARES Specimen [...] Nov 25, 2024 08:59 PM Reporting Lab: [address] [address] Performing Lab: [address] [address] MRSA SURVL NARES DNA Negative Negative Nov 25, 2024 07:05 PM [facility] CBC BLOOD Specimen Type: BLOOD No comment entered. Ordering Provider: LIDIA SWANSON Report Released Date/Time: Nov 25, 2024 04:28 PM Reporting Lab: [address] [address] Performing Lab: [address] [address] WBC 8.8 10*3/uL 3.6-11.2 RBC 4.00 10*6/uL [...] 0.00-0. 20 Nov 25, 2024 06:43 PM [facility] MAGNESIUM PLASMA Specimen Type: PLASM A Comment: No hemolysis noted. Ordering Provider: LIDIA SWANSON Report Released Date/Time: Nov 25, 2024 04:22 PM Reporting Lab: [address] [address] Performing Lab: [address] [address] MAGNESIUM 1.9 mg/dL 1.6-2.6 Nov 25, 2024 06:43 PM [facility] PHOSPHOROUS PLASMA Specimen Type: PLASM A Comment: No hemolysis noted. Ordering Provider: LIDIA SWANSON Report Released Date/Time: Nov 25, 2024 04:28 PM Reporting Lab: [address] [address] Performing Lab: [address] [address] PHOSPHOROUS 2.5 mg/dL 2.3-4.7 Nov 25, 2024 06:43 PM [facility] COMPREHENSIVE METABOLIC PANEL PLASMA Specimen Type: PLASMA Comment: No hemolysis noted. Ordering Provider: LIDIA SWANSON Report Released Date/Time: Nov 25, 2024 04:22 PM Reporting Lab: [address] [address] Performing Lab: [address] [address] CREATININE 1.27 mg/dL 0.7-1.3 UREA NITROGEN 15.7 [...] Encounter. Date/Time Encounter Note(s) Provider Source Dec 17, 2024 01:40 PM INTERVENTIONAL CARDIOLOGY NOTE: LOCAL TITLE: CARDIOLOGY DEVICE SURVEILLANCE NOTE STL STANDARD TITLE: INTERVENTIONAL CARDIOLOGY NOTE DATE OF NOTE: DEC 17, 2024@13:40 ENTRY DATE: DEC 17, 2024@13:40:25 AUTHOR: VERNA ERICKSON EXP COSIGNER: URGENCY: STATUS: COMPLETED CARDIOLOGY DEVICE SURVEILLANCE NOTE STL Has ADDENDA VET ABLE TO SEND IN MANUAL TRANSMISSIONS SEE InSample FOR FULL PDF PATIENT: ELI RUELAS SSN: [id number] : 1955 DATE: 2024-12-16 11:03 SUMMARY: Alert Transmission Arrhythmia: - AFL/AF episodes noted, longest episode 6 minutes to < 24 hours Symptom (Patient Activated) Episode(s) without detected episode: fast heart rate, dizzy, SOB. SR occasional PVC, noise on egm. EPISODES 12-15-2024 01:38 PM Symptom - Shortness of B... Steady 12-15-2024 01:36 PM Symptom - - Unsteady 12-13-2024 11:25 PM Symptom - Fast Heart Rat... Unsteady 12-10-2024 11:14 PM Symptom - Fast Heart Rat... n/a 12-10-2024 09:20 AM AF 1:23:21 64 bpm avg. n/a 12-10-2024 08:11 AM AF 15:24 60 bpm avg. n/a 12-10-2024 12:36 AM AF 8:36 70 bpm avg. n/a 12-09-2024 10:49 PM Symptom - Fast Heart Rat... n/a 12-09-2024 09:21 PM AF 13:59 80 bpm avg. n/a 12-09-2024 08:13 PM AF 17:12 73 bpm avg. n/a 12-09-2024 06:30 PM AF 1:37:43 70 bpm avg. n/a 12-09-2024 03:20 PM Symptom - Dizzy, Shortne... n/a 12-09-2024 09:30 AM Symptom - Fast Heart Rat... n/a SYMPTOM EPSIODES APPEAR SR , RARE PVC'S AF EPSIODES APPEAR AFLUTTER PRESENTING RHYTHM: SR /loreta/ Verna Erickson,RN,BSN Registered Nurse Signed: 12/17/2024 13:48 Receipt Acknowledged By: 12/17/2024 15:37 /loreta/ JOSE CLOUD MD CLINICAL CARDIAC PATHOLOGY LABORATORY DIRECTOR 12/17/2024 ADDENDUM STATUS: COMPLETED Spoke with vet, the breathing issue stawrted at the end of JUL. It is not new. But he does not appear to be in afib most of the time looking at printouts AF Beatrice is 3% since december 07 or so, /loreta/ Verna Erickson,KSENIA,BSN Registered Nurse Signed: 12/17/2024 13:53 12/17/2024 ADDENDUM STATUS: COMPLETED Device Interrogation reviewed. Battery is adequate, lead function stable. Arrhythmias are as documented. Will continue device follow up through remote transmissions and/or routine device clinic appointments. All clinically important information has been communicated to the patient by myself, device clinic, the patient's mud analysis well logging captain, or the patient's PCP. 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
--- OUTSIDE RECORDS SUMMARY | 2024-12-29 20:08 | XMS_ITS | Clinical Summary ---
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
--- OUTSIDE RECORDS SUMMARY | 2024-12-29 20:08 | XMS_ITS | Clinical Summary ---
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
--- OUTSIDE RECORDS SUMMARY | 2024-12-29 20:08 | XMS_ITS | Clinical Summary ---
Author Organization [facility] Address [address] [place] [address] Care Team Providers Care High School Chemistry Teacher Name Role Phone Jm Cedillo MD Primary Care Provider [phone] Social History Tobacco Use Types Packs/Day Years [...] Health Maintenance Insurance MEDICARE MEDICAID Care Teams High School Chemistry Teacher Relationship Specialty Start Date End Date Jm Cedillo MD PCP - General INTERNAL MEDICINE 12/23/18
--- OUTSIDE RECORDS SUMMARY | 2024-12-29 20:08 | XMS_ITS | Encounter Summary ---
Author Organization [facility] Address [address] [place] [address] Care Team Providers Care Transportation Superintendent Name Role Phone Jm Cedillo MD Primary Care Provider [phone] Encounter Details Date Type Department Care Team (Late st Contact Info) Description 08/17/2017 Abstract [facility] CONVERSION [address] [place] [address] , Generic MD Rob Social History Tobacco [...] on filedocumented in this encounter Care Teams Transportation Superintendent Relationship Specialty Start Date End Date Jm Cedillo MD PCP - General INTERNAL MEDICINE 12/23/18 documented as of this encounter
--- OUTSIDE RECORDS SUMMARY | 2024-12-29 20:09 | XMS_ITS | Continuity of Care Document ---
Author Name [facility] Organization [facility] Care Team Providers Care Evp Sales Name Role Phone [facility] Unavailable Unavailable Problems Combined list of problems [...] hip, notes dated 07/12/[address] Kolb [facility] Anxiety Active Condition [facility] Asthma Active Condition [facility] Asthma (SNOMED CT [id number]) Active Condition [facility] Chronic kidney disease stage 3A Active Condition [facility] Chronic obstructive lung disease Active Condition [facility] CVA - Cerebrovascular accident Active Condition [facility] Daily headache Active Condition [facility] Deficiency of vitamin D3 Active Condition [facility] Dyspnea Active Condition [facility] Erectile dysfunction Active Condition [facility] Essential hypertension Active Condition [facility] Hepatitis C Active Condition [facility] Hepatitis C Active Condition Mar 09, 2019 Entered By: GEE HATFIELD Comment: in remission [facility] Histoplasmosis Active Condition Jul 052016 Entered By: KISHORE AGUAYO Comment: Hx. of left lower lobe wedge rescetions in the mid per notes from Dr. Mio Palencia [facility] History of cerebrovascular accident Active Condition [facility] History of colonic polyp Active Condition [facility] History of polyp of colon Active Condition [facility] History of right hip replacement Active Condition [facility] HLD - Hyperlipidaemia Active Condition [facility] Hyperlipidemia Active Condition [facility] Hypertensive heart AND chronic kidney disease stage 3 Active Condition [facility] Knee pain (SNOMED CT [id number]) Active Condition [facility] Lung cancer Active Condition Apr 05, 2021 Entered By: WES GARCIA Comment: RLL - Lobectomy - August 2020 [facility] Multiple pulmonary nodules Active Condition [facility] Nicotine dependence Active Condition [facility] Osteoarthritis of joint of left shoulder region Active Condition [facility] PAF - Paroxysmal atrial fibrillation Active Condition [facility] Pain in right hip joint Active Condition Aug 09, 2016 Entered By: KISHORE AGUAYO Comment: 04/04/2016- right toal hip arthroplasty by Dr. Irwin Kolb [facility] Pain of left shoulder joint Active Condition [facility] Periventricular hemorrhagic venous infarct Active Condition [facility] periventricular infarction Active Condition [facility] Peyronie's disease Active Condition [facility] Prediabetes Active Condition [facility] Shoulder pain Active Condition [facility] Tobacco dependence, continuous Active Condition [facility] Tobacco use Active Condition [facility] Vitamin D deficiency Active Condition [facility] Benign essential hypertension Inactive Condition 04/05/2021 [facility] Diagnosis: ICD-10-CM R11.2 Nausea with vomiting, unspecified Active Diagnosis [facility] Diagnosis: ICD-10-CM G46.4 Cerebellar stroke syndrome Active Diagnosis [facility] Diagnosis: ICD-10-CM I48.0 Paroxysmal atrial fibrillation Active Diagnosis [facility] Diagnosis: ICD-10-CM Z71.81 Spiritual or episcopal counseling Active Diagnosis [facility] Diagnosis: ICD-10-CM I48.3 Typical atrial flutter Active Diagnosis [facility] Diagnosis: ICD-10-CM Z01.818 Encounter for other preprocedural examination Active Diagnosis [facility] Diagnosis: ICD-10-CM Z51.81 Encounter for therapeutic drug level monitoring Active Diagnosis [facility] Diagnosis: ICD-10-CM I48.91 Unspecified atrial fibrillation Active Diagnosis [facility] Admit Reason: ATRIAL FIBRILATION Active Diagnosis [facility] Diagnosis: ICD-10-CM I48.19 Other persistent atrial fibrillation Active Diagnosis [facility] Diagnosis: ICD-10-CM 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 Diagnosis: ICD-10-CM Z02.9 Encounter for administrative examinations, unspecified Active Diagnosis [facility] Diagnosis: ICD-10-CM J44.9 Chronic obstructive pulmonary disease, unspecified Active Diagnosis [facility] Diagnosis: ICD-10-CM R06.00 Dyspnea, unspecified Active Diagnosis [facility] Diagnosis: ICD-10-CM J44.1 Chronic obstructive pulmonary disease w (acute) exacerbation Active Diagnosis [facility] Diagnosis: ICD-10-CM I63.9 Cerebral infarction, unspecified Active Diagnosis [facility] Diagnosis: ICD-10-CM K63.5 Polyp of colon Active Diagnosis [facility] Diagnosis: ICD-10-CM 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 Medications Combined list of outpatient medications from [...] . RESPIR ATORY (INHAL ATION) ACTIVE 04/09/2025 [id number] WES GARCIA [address] [facility] APIXABAN 5MG TAB TAKE ONE TABLET BY MOUTH TWICE A DAY FOR ANTICOAG ULATION ORAL ACTIVE 08/11/2025 [id number] 5 SA RUMA VIZCARRA M [address] [facility] APIXABAN 5MG TAB TAKE ONE TABLET BY MOUTH TWICE A DAY FOR ANTICOAG ULATION ORAL DISCONT INUED 05/21/2025 [id number] 5 WES GARCIA [address] [facility] BISACODYL 5MG TAB,EC TAKE TWO TABLETS BY MOUTH ONE TIME TAKE BISACODY L TABLETS AT 4PM ON AFTERNOO N PRIOR TO TEST. CALL WITH ANY QUESTION S ABOUT THESE INSTRUCT IONS. MAIL TAKE BISACODY L TABLETS AT 4PM ON AFTERNOO N PRIOR TO TEST. CALL WITH ANY QUESTION S ABOUT THESE INSTRUCT IONS. MAIL ORAL 12/05/2023 [id number] 4 SHARON BRANDT 2023 2 [facility] BUMETANIDE 1MG TAB TAKE ONE-HALF TABLET BY MOUTH EVERY MORNING FOR FLUID RETENTIO N (EDEMA) ORAL DISCONT INUED 09/27/2024 [id number] 5 CLAUDIA ROBERTSON NDT T 2024 4 [facility] BUMETANIDE 1MG TAB TAKE ONE-HALF TABLET BY MOUTH EVERY MORNING FOR FLUID RETENTIO N (EDEMA) ORAL 10/02/2024 [id number] 5 CLAUDIA ROBERTSON NDT T 2024 4 [facility] BUPROPION HCL 150MG 12HR TAB,SA TAKE ONE TABLET BY MOUTH TWICE A DAY FOR SMOKING CESSATIO N. SWALLOW WHOLE - DO NOT CRUSH OR CHEW. ORAL 09/10/2024 [id number] 4 AMI SUTHERLAND A 2023 180 [facility] N CLOPIDOGREL BISULFATE 75MG TAB TAKE ONE TABLET BY MOUTH DAILY ORAL ACTIVE Zoraida AGUAYO 2016 [facility] DOFETILIDE 250MCG CAP TAKE ONE CAPSULE BY MOUTH EVERY 12 HOURS FOR ATRIAL FIBRILLA TION - AVOID GRAPEFRU IT/GRAPE FRUIT JUICE WHILE ON THIS MEDICATI ON. ORAL ACTIVE 11/29/2025 [id number] 5 LIDIA SWANSON 2024 [facility] 0.4MG TAB TAKE ONE TABLET BY MOUTH ONCE A DAY FOR FOLIC ACID SUPPLEME NTATION ORAL ACTIVE 11/29/2025 [id number] 5 LIDIA SWANSON 2024 [facility] HYDROC[facility] 7.5MG/ACETA MINOPHEN 325MG TAB TAKE ONE TABLET BY MOUTH EVERY 4 HOURS NEEDED ORAL ACTIVE Zoraida AGUAYO 2016 [facility] HYDROXYZINE HCL 10MG *HI-ALERT* TAB TAKE 25MG BY MOUTH THREE TIMES A DAY NEEDED ORAL ACTIVE Zoraida AGUAYO 2016 [facility] LISINOPRIL 20MG TAB TAKE ONE-HALF TABLET BY MOUTH DAILY ORAL ACTIVE Zoraida AGUAYO 2016 [facility] LISINOPRIL 40MG TAB TAKE ONE-HALF TABLET BY MOUTH ONCE A DAY ORAL ACTIVE Ramiro HATFIELD [address] [facility] N METHOCARBAM OL 500MG TAB TAKE 1 TABLET BY MOUTH THREE TIMES A DAY NEEDED FOR MUSCLE SPASM ORAL ACTIVE 12/23/2025 [id number] 5 MCQUAIDE, [address] [facility] N METHOCARBAM OL 500MG TAB TAKE 1 TABLET BY MOUTH THREE TIMES A DAY NEEDED FOR MUSCLE SPASM ORAL DISCONT INUED 04/09/2025 [id number] 5 MCQUAIDE, WES2023 [address] [facility] N METHOCARBAM OL 500MG TAB TAKE 1 TABLET BY MOUTH THREE TIMES A DAY NEEDED [facility] 09/18/2024 [id number] 4 MCQUAIDE, [address] [facility] METOPROLOL SUCCINATE 50MG TAB,SA TAKE ONE-HALF TABLET BY MOUTH ONCE A DAY ORAL ACTIVE SA RUMA VIZCARRA [address] [facility] N PEG-3350/EL ECTROLYTES PWDR [...] TEST. READ YOUR INSTRUCT IONS!) ORAL 12/05/2023 [id number] 4 SHARON BRANDT 2023 1 [facility] POTASSIUM CHLORIDE 20MEQ TAB,SA (DISPERSIBL E) TAKE TWO TABLETS BY MOUTH ONCE A DAY FOR POTASSIU M SUPPLEME NTATION TAKE WITH FOOD ORAL 09/27/2024 [id number] 5 MARCELO,CLAUDIA NDT T 2024 14 [facility] PREDNISONE 10MG TAB TAKE FIVE [...] FOOD OR MILK. ORAL DISCONT INUED 09/12/2024 [id number] 5 WES GARCIA [address] [facility] PREDNISONE 10MG TAB TAKE TWO TABLETS BY MOUTH EVERY MORNING FOR 2 DAYS, THEN TAKE ONE TABLET EVERY MORNING FOR 6 DAYS, THEN TAKE ONE-HALF TABLET EVERY MORNING FOR 6 DAYS FOR COPD EXACERBA TION TAKE WITH FOOD OR MILK. ORAL 09/27/2024 [id number] 5 CLAUDIA ROBERTSON NDT T 2024 13 [facility] ROSUVASTATI N CA 40MG TAB TAKE ONE-HALF TABLET BY MOUTH EVERY EVENING ORAL ACTIVE LEFTY VALLADARES 2020 [facility] N SIMETHICONE 80MG TAB,CHEW CHEW AND SWALLOW FOUR TABLETS BY MOUTH DIRECTED FOR TWO DOSES BEFORE GI PROCEDUR E ORAL 12/05/2023 [id number] 4 SHARON BRANDT 2023 8 [facility] N UMECLIDINCHAYITO M 62.5MCG/SOHEILA ANTEROL 25MCG/ACTUA T INH,ORAL,30 D INHALE 1 PUFF ORAL INHALATI ON ONCE A DAY RESPIR ATORY (INHAL ATION) ACTIVE BLAINELEFTY HELCHRISTA Covarrubias 2020 [facility] Allergies, Adverse Reactions, Alerts Combined list of allergies from 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 It does not include entries that were removed or entered in error. Substance Category Reaction Severity Reaction type Status Date Reported Comments Source CHANTIX Propensity to adverse reactions to drug (finding) Nightmares active 0 [facility] Immunizations Combined list of available immunizations from the 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 Immunization Series Date Given Administered By Site Reaction Lot Number CVX Code Drug Fur Stretcher Status Comments Source INFLUENZA, HIGH-DOSE, TRIVALENT, PF 2023 OVERTURF,BRIGITTE Corral RIGHT DELTO ID [id number] 135 complet ed [facility] COVID-19 (PFIZER), MRNA, LNP-S, PF, AGUILAR-SUCROSE, 30 MCG/0.3 ML (AGES 12+ YEARS) 2023 309 complet ed HISTORICA L INFORMATI ON - FROM PATIENT'S RECALL, [facility] COVID-19 (MODERNA), MRNA, LNP-S, PF, 50 MCG/0.5 ML (AGES 12+ YEARS) 1 2023 312 complet ed HISTORICA L INFORMATI ON - FROM OTHER REGISTRY, [facility] COVID-19 (MODERNA), MRNA, LNP-S, PF, 50 MCG/0.5 ML (AGES 12+ YEARS) 6 2022 312 complet ed HISTORICA L INFORMATI ON - FROM OTHER [facility], [facility] INFLUENZA, HIGH-DOSE, QUADRIVALENT, PF 1 2022 197 complet ed HISTORICA L INFORMATI ON - FROM OTHER [facility], [facility] RSV, RECOMBINANT, PROTEIN SUBUNIT RSVPREF3, ADJUVANT RECONSTITUTED , 0.5 ML, PF 1 2022 303 complet ed HISTORICA L INFORMATI ON - FROM OTHER REGISTRY, [facility] COVID-19 (PFIZER), MRNA, LNP-S, PF, AGUILAR-SUCROSE, 30 MCG/0.3 ML (AGES 12+ YEARS) 1 2022 309 complet ed HISTORICA L INFORMATI ON - FROM PATIENT'S RECALL, [facility] INFLUENZA, UNSPECIFIED FORMULATION 2022 88 complet ed HISTORICA L INFORMATI ON - FROM PATIENT'S RECALL, [facility] PNEUMOCOCCAL CONJUGATE PCV20, POLYSACCHARID E [id number] CONJUGATE, ADJUVANT, PF 3 2021 216 complet ed HISTORICA L INFORMATI ON - FROM OTHER REGISTRY, [facility] INFLUENZA, SPLIT VIRUS, QUADRIVALENT, PF 1 2021 150 complet ed HISTORICA L INFORMATI ON - FROM OTHER REGISTRY, [facility] INFLUENZA, UNSPECIFIED FORMULATION 2021 88 complet ed HISTORICA L INFORMATI ON - FROM PATIENT'S RECALL, [facility] COVID-19, MRNA, LNP-S, BIVALENT BOOSTER, PF, 30 MCG/0.3 ML DOSE 1 2021 300 complet ed PFR; [id number]; 3 [facility] COVID-19 (Online Milestone Platform), MRNA, LNP-S, PF, 30 MCG/0.3 ML DOSE, AGUILAR-SUCROSE (AGES 12+ YEARS) 4 2021 217 complet ed [facility] ZOSTER RECOMBINANT [address] [facility] COVID-19 (Online Mil[employer] Platform), MRNA, LNP-S, PF, 30 MCG/0.3 ML DOSE 3 2020 208 complet ed PFR; [id number]; 2 [facility] INFLUENZA, INJECTABLE, QUADRIVALENT, PRESERVATIVE FREE [address] [facility] N ZOSTER RECOMBINANT [address] [facility] COVID-19 (Online Mil[employer] Platform), MRNA, LNP-S, PF, 30 MCG/0.3 ML DOSE 2 2020 208 complet ed HISTORICA L INFORMATI ON - FROM OTHER REGISTRY, [facility] COVID-19 (PFIZER), MRNA, LNP-S, PF, 30 MCG/0.3 ML DOSE 2 2020 208 complet ed [facility] COVID-19 (Online [employer] Platform), MRNA, LNP-S, PF, 30 MCG/0.3 ML DOSE 1 2020 208 complet ed [facility] INFLUENZA, UNSPECIFIED FORMULATION 2019 88 complet ed [facility] INFLUENZA, SPLIT VIRUS, QUADRIVALENT, PF 1 2019 150 complet ed HISTORICA L INFORMATI ON - FROM OTHER REGISTRY, [facility] TDAP 1 2018 115 complet ed HISTORICA L INFORMATI ON - FROM OTHER REGISTRY, [facility] INFLUENZA, UNSPECIFIED FORMULATION 2018 88 complet ed [facility] INFLUENZA, MDCK, QUADRIVALENT, PRESERVATIVE 1 2018 186 complet ed HISTORICA L INFORMATI ON - FROM OTHER REGISTRY, [facility] INFLUENZA, SPLIT VIRUS, QUADRIVALENT, PRESERVATIVE 1 2017 158 complet ed HISTORICA L INFORMATI ON - FROM OTHER REGISTRY, [facility] INFLUENZA, SPLIT VIRUS, QUADRIVALENT, PRESERVATIVE 1 2016 158 complet ed HISTORICA L INFORMATI ON - FROM OTHER REGISTRY, [facility] INFLUENZA, SEASONAL, INJECTABLE, PRESERVATIVE FREE 2015 140 complet ed [facility] INFLUENZA, SPLIT VIRUS, TRIVALENT, PF 1 2015 140 complet ed HISTORICA L INFORMATI ON - FROM OTHER REGISTRY, [facility] INFLUENZA, UNSPECIFIED FORMULATION 2014 88 complet ed [facility] PNEUMOCOCCAL CONJUGATE PCV 13 2014 133 complet ed notes dated 07/25/[address] Mio Palencia [facility] PNEUMOCOCCAL CONJUGATE PCV 13 2014 133 complet ed [facility]LV [facility] INFLUENZA, SPLIT VIRUS, TRIVALENT, PF 1 2013 140 complet ed HISTORICA L INFORMATI ON - FROM OTHER REGISTRY, [facility] PNEUMOCOCCAL POLYSACCHARID E PPV23 2013 33 complet ed [facility] INFLUENZA, UNSPECIFIED FORMULATION 2013 88 complet ed [facility] INFLUENZA, UNSPECIFIED FORMULATION 2013 88 complet ed [facility] INFLUENZA, SPLIT VIRUS, TRIVALENT, PRESERVATIVE 1 2012 141 complet ed HISTORICA L INFORMATI ON - FROM OTHER REGISTRY, [facility] PNEUMOCOCCAL POLYSACCHARID E PPV23 1 2012 33 complet ed HISTORICA L INFORMATI ON - FROM OTHER REGISTRY, [facility] PNEUMOCOCCAL POLYSACCHARID E PPV23 2012 33 complet ed [facility] 2012 121 complet ed [facility] 2009 121 complet ed [facility] Results Combined list of recent [...] Nov 27, 2024 07:13 PM Reporting Lab: [address] [address] Performing Lab: [address] [address] [facility] RENAL PANEL CREATININE [MASS/VOLUM E] IN SERUM OR PLASMA 1.15 mg/dL 0.7 - 1.3 11/28 Specimen Type: PLASMA Comment: No hemolysis noted. Ordering Provider: INOCENCIA TITUS Report Released Date/Time: Nov 27, 2024 07:13 PM Reporting Lab: [facility] [address] [place] [phone] Performing Lab: [facility] [address] [place] [phone] [facility] RENAL PANEL UREA NITROGEN [MASS/VOLUM E] IN SERUM OR PLASMA 13.3 mg/dL 9.0 - 25.0 11/28 Specimen Type: PLASMA Comment: No hemolysis noted. Ordering Provider: INOCENCIA TITUS Report Released Date/Time: Nov 27, 2024 07:13 PM Reporting Lab: [facility] [address] [place] [phone] Performing Lab: [address] [address] [facility] RENAL PANEL GLUCOSE [MASS/VOLUM E] IN SERUM OR PLASMA 104 mg/dL 72 - 99 11/28 H Specimen Type: PLASMA Comment: No hemolysis noted. Ordering Provider: INOCENCIA TITUS Report Released Date/Time: Nov 27, 2024 07:13 PM Reporting Lab: [facility] [address] [place] [phone] Performing Lab: [facility] [address] [place] [phone] [facility] RENAL PANEL SODIUM [MOLES/VOLU ME] IN SERUM OR PLASMA 139 meq/L 136 - 145 11/28 Specimen Type: PLASMA Comment: No hemolysis noted. Ordering Provider: INOCENCIA TITUS Report Released Date/Time: Nov 27, 2024 07:13 PM Reporting Lab: [address] [phone] Performing Lab: [address] [address] [facility] RENAL PANEL POTASSIUM [MOLES/VOLU ME] IN SERUM OR PLASMA 4.1 meq/L 3.5 - 5 11/28 Specimen Type: PLASMA Comment: No hemolysis noted. Ordering Provider: INOCENCIA TITUS Report Released Date/Time: Nov 27, 2024 07:13 PM Reporting Lab: [facility] [address] [place] [phone] Performing Lab: [facility] [address] [place] [phone] [facility] RENAL PANEL CHLORIDE [MOLES/VOLU ME] IN SERUM OR PLASMA 105 meq/L 98 - 107 11/28 Specimen Type: PLASMA Comment: No hemolysis noted. Ordering Provider: INOCENCIA TITUS Report Released Date/Time: Nov 27, 2024 07:13 PM Reporting Lab: [address] [address] Performing Lab: [facility] [address] [place] [phone] [facility] RENAL PANEL CARBON DIOXIDE, TOTAL [MOLES/VOLU ME] IN SERUM OR PLASMA 28 meq/L 22 - 31 11/28 Specimen Type: PLASMA Comment: No hemolysis noted. Ordering Provider: INOCENCIA TITUS Report Released Date/Time: Nov 27, 2024 07:13 PM Reporting Lab: [facility] [address] [place] [phone] Performing Lab: [facility] [address] [place] [phone] [facility] RENAL PANEL CALCIUM [MASS/VOLUM E] IN SERUM OR PLASMA 9.0 mg/dL 8.4 - 10.4 11/28 Specimen Type: PLASMA Comment: No hemolysis noted. Ordering Provider: INOCENCIA TITUS Report Released Date/Time: Nov 27, 2024 07:13 PM Reporting Lab: [address] [address] Performing Lab: [address] [address] [facility] RENAL PANEL PHOSPHATE [MASS/VOLUM E] IN SERUM OR PLASMA 2.8 mg/dL 2.3 - 4.7 11/28 Specimen Type: PLASMA Comment: No hemolysis noted. Ordering Provider: INOCENCIA TITUS Report Released Date/Time: Nov 27, 2024 07:13 PM Reporting Lab: [place] [address] [facility] [phone] Performing Lab: [address] [address] [facility] RENAL PANEL ALBUMIN [MASS/VOLUM E] IN SERUM OR PLASMA 3.6 g/dL 3.4 - 5 11/28 Specimen Type: PLASMA Comment: No hemolysis noted. Ordering Provider: INOCENCIA TITUS Report Released Date/Time: Nov 27, 2024 07:13 PM Reporting Lab: [address] [address] Performing Lab: [address] [address] [facility] RENAL PANEL GLOMERULAR FILTRATION RATE/1.73 SQ M.PREDICTED [VOLUME RATE/AREA] IN SERUM, PLASMA OR BLOOD BY CREATININE- BASED FORMULA (CKD-EPI 2020) 69.8 60 11/28 Specimen Type: PLASMA Comment: No hemolysis noted. Ordering Provider: INOCENCIA TITUS Report Released Date/Time: Nov 27, 2024 07:13 PM Reporting Lab: [place] [address] [place] [address] Performing Lab: [place] [address] [facility] [phone] [facility] CBC LEUKOCYTES [#/VOLUME] IN BLOOD BY AUTOMATED COUNT 9.5 10*3/u L 3.6 - 11.2 11/27 Specimen Type: BLOOD No comment entered. Ordering Provider: LIDIA SWANSON Report Released Date/Time: Nov 25, 2024 04:28 PM Reporting Lab: [place] [address] [facility] [address] Performing Lab: [place] [address] [facility] [address] [facility] CBC ERYTHROCYTE S [#/VOLUME] IN BLOOD BY AUTOMATED COUNT 4.19 10*6/u L 4.10 - 5.70 11/27 Specimen Type: BLOOD No comment entered. Ordering Provider: LIDIA SWANSON Report Released Date/Time: Nov 25, 2024 04:28 PM Reporting Lab: [place] [address] [facility] [address] Performing Lab: [address] [address] [facility] CBC HEMOGLOBIN [MASS/VOLUM E] IN BLOOD 13.7 g/dL 13.1 - 16.8 11/27 Specimen Type: BLOOD No comment entered. Ordering Provider: LIDIA SWANSON Report Released Date/Time: Nov 25, 2024 04:28 PM Reporting Lab: [place] [address] [facility] [address] Performing Lab: [address] [place] [address] [facility] CBC HEMATOCRIT [VOLUME FRACTION] OF BLOOD 42.3 38.2 - 48.4 11/27 Specimen Type: BLOOD No comment entered. Ordering Provider: LIDIA SWANSON Report Released Date/Time: Nov 25, 2024 04:28 PM Reporting Lab: [address] [address] Performing Lab: [address] [address] [facility] CBC MCV [ENTITIC VOLUME] BY AUTOMATED COUNT 101.0 fL 80.0 - 100.0 11/27 H Specimen Type: BLOOD No comment entered. Ordering Provider: LIDIA SWANSON Report Released Date/Time: Nov 25, 2024 04:28 PM Reporting Lab: [address] [address] Performing Lab: [address] [address] [facility] CBC MCH [ENTITIC MASS] BY AUTOMATED COUNT 32.7 pg 27.0 - 34.0 11/27 Specimen Type: BLOOD No comment entered. Ordering Provider: LIDIA SWANSON Report Released Date/Time: Nov 25, 2024 04:28 PM Reporting Lab: [address] [address] Performing Lab: [address] [address] [facility] CBC MCHC [MASS/VOLUM E] BY AUTOMATED COUNT 32.4 g/dL 33.0 - 36.0 11/27 L Specimen Type: BLOOD No comment entered. Ordering Provider: LIDIA SWANSON Report Released Date/Time: Nov 25, 2024 04:28 PM Reporting Lab: [place] [address] [facility] [address] Performing Lab: [address] [address] [facility] CBC PLATELETS [#/VOLUME] IN BLOOD BY AUTOMATED COUNT 222 10*3/u L 150 - 400 11/27 Specimen Type: BLOOD No comment entered. Ordering Provider: LIDIA SWANSON Report Released Date/Time: Nov 25, 2024 04:28 PM Reporting Lab: [place] [address] [facility] [address] Performing Lab: [address] [address] [facility] CBC PLATELET MEAN VOLUME [ENTITIC VOLUME] IN BLOOD BY AUTOMATED COUNT 10.6 fL 7.5 - 11.2 11/27 Specimen Type: BLOOD No comment entered. Ordering Provider: LIDIA SWANSON Report Released Date/Time: Nov 25, 2024 04:28 PM Reporting Lab: [address] [address] Performing Lab: [place] [address] [facility] [address] [facility] CBC ERYTHROCYTE DISTRIBUTIO N WIDTH [RATIO] BY AUTOMATED COUNT 14.1 11.8 - 15.1 11/27 Specimen Type: BLOOD No comment entered. Ordering Provider: LIDIA SWANSON Report Released Date/Time: Nov 25, 2024 04:28 PM Reporting Lab: [address] [address] Performing Lab: [address] [address] [facility] CBC LYMPHOCYTES /100 LEUKOCYTES IN BLOOD BY AUTOMATED COUNT 17 11/27 Specimen Type: BLOOD No comment entered. Ordering Provider: LIDIA SWANSON Report Released Date/Time: Nov 25, 2024 04:28 PM Reporting Lab: [address] [address] Performing Lab: [place] [address] [facility] [address] [facility] CBC MONOCYTES/1 00 LEUKOCYTES IN BLOOD BY AUTOMATED COUNT 9 11/27 Specimen Type: BLOOD No comment entered. Ordering Provider: LIDIA SWANSON Report Released Date/Time: Nov 25, 2024 04:28 PM Reporting Lab: [facility] [address] [facility] [address] Performing Lab: [facility] [address] [facility] [address] [facility] CBC NEUTROPHILS /100 LEUKOCYTES IN BLOOD BY AUTOMATED COUNT 72 11/27 Specimen Type: BLOOD No comment entered. Ordering Provider: LIDIA SWANSON Report Released Date/Time: Nov 25, 2024 04:28 PM Reporting Lab: [facility] [address] [facility] [address] Performing Lab: [place] [address] [facility] [address] [facility] CBC EOSINOPHILS /100 LEUKOCYTES IN BLOOD BY AUTOMATED COUNT 2 11/27 Specimen Type: BLOOD No comment entered. Ordering Provider: LIDIA SWANSON Report Released Date/Time: Nov 25, 2024 04:28 PM Reporting Lab: [facility] [address] [facility] [address] Performing Lab: [facility] [address] [facility] [address] [facility] CBC BASOPHILS/1 00 LEUKOCYTES IN BLOOD BY AUTOMATED COUNT 1 11/27 Specimen Type: BLOOD No comment entered. Ordering Provider: LIDIA SWANSON Report Released Date/Time: Nov 25, 2024 04:28 PM Reporting Lab: [facility] [address] [facility] [address] Performing Lab: [place] [address] [facility] [phone] CBC LYMPHOCYTES [#/VOLUME] IN BLOOD BY AUTOMATED COUNT 1.61 10*3/u L 0.77 - 4.50 11/27 Specimen Type: BLOOD No comment entered. Ordering Provider: LIDIA SWANSON Report Released Date/Time: Nov 25, 2024 04:28 PM Reporting Lab: [place] [address] [facility] [address] Performing Lab: [address] [address] [facility] CBC MONOCYTES [#/VOLUME] IN BLOOD BY AUTOMATED COUNT 0.84 10*3/u L 0.19 - 0.80 11/27 H Specimen Type: BLOOD No comment entered. Ordering Provider: LIDIA SWANSON Report Released Date/Time: Nov 25, 2024 04:28 PM Reporting Lab: [place] [address] [facility] [address] Performing Lab: [address] [address] [facility] CBC NEUTROPHILS [#/VOLUME] IN BLOOD BY AUTOMATED COUNT 6.83 10*3/u L 2.10 - 8.00 11/27 Specimen Type: BLOOD No comment entered. Ordering Provider: LIDIA SWANSON Report Released Date/Time: Nov 25, 2024 04:28 PM Reporting Lab: [address] [address] Performing Lab: [place] [address] [facility] [address] [facility] CBC EOSINOPHILS [#/VOLUME] IN BLOOD BY AUTOMATED COUNT 0.16 10*3/u L 0.00 - 0.60 11/27 Specimen Type: BLOOD No comment entered. Ordering Provider: LIDIA SWANSON Report Released Date/Time: Nov 25, 2024 04:28 PM Reporting Lab: [place] [address] [facility] [address] Performing Lab: [address] [address] [facility] CBC BASOPHILS [#/VOLUME] IN BLOOD BY AUTOMATED COUNT 0.06 10*3/u L 0.00 - 0.20 11/27 Specimen Type: BLOOD No comment entered. Ordering Provider: LIDIA SWANSON Report Released Date/Time: Nov 25, 2024 04:28 PM Reporting Lab: [address] [address] Performing Lab: [address] [address] [facility] RENAL PANEL CREATININE [MASS/VOLUM E] IN SERUM OR PLASMA 1.20 mg/dL 0.7 - 1.3 11/27 Specimen Type: PLASMA Comment: No hemolysis noted. Ordering Provider: LIDIA SWANSON Report Released Date/Time: Nov 25, 2024 03:08 PM Reporting Lab: [address] [address] Performing Lab: [address] [phone] [place] [address] RENAL PANEL UREA NITROGEN [MASS/VOLUM E] IN SERUM OR PLASMA 15.1 mg/dL 9.0 - 25.0 11/27 Specimen Type: PLASMA Comment: No hemolysis noted. Ordering Provider: LIDIA SWANSON Report Released Date/Time: Nov 25, 2024 03:08 PM Reporting Lab: [address] [address] Performing Lab: [address] [address] [facility] RENAL PANEL GLUCOSE [MASS/VOLUM E] IN SERUM OR PLASMA 137 mg/dL 72 - 99 11/27 H Specimen Type: PLASMA Comment: No hemolysis noted. Ordering Provider: LIDIA SWANSON Report Released Date/Time: Nov 25, 2024 03:08 PM Reporting Lab: [address] [address] Performing Lab: [address] [address] [facility] RENAL PANEL SODIUM [MOLES/VOLU ME] IN SERUM OR PLASMA 140 meq/L 136 - 145 11/27 Specimen Type: PLASMA Comment: No hemolysis noted. Ordering Provider: LIDIA SWANSON Report Released Date/Time: Nov 25, 2024 03:08 PM Reporting Lab: [facility] [address] [place] [address] Performing Lab: [facility] [address] [place] [address] [facility] RENAL PANEL POTASSIUM [MOLES/VOLU ME] IN SERUM OR PLASMA 4.1 meq/L 3.5 - 5 11/27 Specimen Type: PLASMA Comment: No hemolysis noted. Ordering Provider: LIDIA SWANSON Report Released Date/Time: Nov 25, 2024 03:08 PM Reporting Lab: [address] [address] Performing Lab: [address] [address] [facility] RENAL PANEL CHLORIDE [MOLES/VOLU ME] IN SERUM OR PLASMA 106 meq/L 98 - 107 11/27 Specimen Type: PLASMA Comment: No hemolysis noted. Ordering Provider: LIDIA SWANSON Report Released Date/Time: Nov 25, 2024 03:08 PM Reporting Lab: [address] [address] Performing Lab: [address] [address] [facility] RENAL PANEL CARBON DIOXIDE, TOTAL [MOLES/VOLU ME] IN SERUM OR PLASMA 29 meq/L 22 - 31 11/27 Specimen Type: PLASMA Comment: No hemolysis noted. Ordering Provider: LIDIA SWANSON Report Released Date/Time: Nov 25, 2024 03:08 PM Reporting Lab: [address] [address] Performing Lab: [address] [address] [facility] RENAL PANEL CALCIUM [MASS/VOLUM E] IN SERUM OR PLASMA 8.9 mg/dL 8.4 - 10.4 11/27 Specimen Type: PLASMA Comment: No hemolysis noted. Ordering Provider: LIDIA SWANSON Report Released Date/Time: Nov 25, 2024 03:08 PM Reporting Lab: [facility] [address] [facility] [address] Performing Lab: [facility] [address] [facility] [address] [facility] RENAL PANEL PHOSPHATE [MASS/VOLUM E] IN SERUM OR PLASMA 2.3 mg/dL 2.3 - 4.7 11/27 Specimen Type: PLASMA Comment: No hemolysis noted. Ordering Provider: LIDIA SWANSON Report Released Date/Time: Nov 25, 2024 03:08 PM Reporting Lab: [place] [address] [facility] [address] Performing Lab: [place] [address] [facility] [address] [facility] RENAL PANEL ALBUMIN [MASS/VOLUM E] IN SERUM OR PLASMA 3.7 g/dL 3.4 - 5 11/27 Specimen Type: PLASMA Comment: No hemolysis noted. Ordering Provider: LIDIA SWANSON Report Released Date/Time: Nov 25, 2024 03:08 PM Reporting Lab: [place] [address] [facility] [address] Performing Lab: [place] [address] [facility] [address] [facility] RENAL PANEL GLOMERULAR FILTRATION RATE/1.73 SQ M.PREDICTED [VOLUME RATE/AREA] IN SERUM, PLASMA OR BLOOD BY CREATININE- BASED FORMULA (CKD-EPI 2020) 66.3 60 11/27 Specimen Type: PLASMA Comment: No hemolysis noted. Ordering Provider: LIDIA SWANSON Report Released Date/Time: Nov 25, 2024 03:08 PM Reporting Lab: [facility] [address] [facility] [address] Performing Lab: [facility] [address] [facility] [address] [facility] MAGNESIUM MAGNESIUM [MASS/VOLUM E] IN SERUM OR PLASMA 2.4 mg/dL 1.6 - 2.6 11/27 Specimen Type: PLASMA Comment: No hemolysis noted. Ordering Provider: LIDIA SWANSON Report Released Date/Time: Nov 26, 2024 09:37 AM Reporting Lab: [address] [address] Performing Lab: [address] [address] [facility] B12 COBALAMIN (VITAMIN B12) [MASS/VOLUM E] IN SERUM OR PLASMA 418 pg/mL 213 - 816 11/27 Specimen Type: SERUM No comment entered. Ordering Provider: LIDIA SWANSON Report Released Date/Time: Nov 26, 2024 08:37 PM Reporting Lab: [address] [address] Performing Lab: [address] [phone] [place] [address] FOLATE (ST-NV) FOLATE [MASS/VOLUM E] IN SERUM OR PLASMA 6.7 ng/mL 7 - 20 11/27 L Specimen Type: SERUM No comment entered. Ordering Provider: LIDIA SWANSON Report Released Date/Time: Nov 26, 2024 08:37 PM Reporting Lab: [address] [address] Performing Lab: [address] [address] [facility] MAGNESIUM MAGNESIUM [MASS/VOLUM E] IN SERUM OR PLASMA 2.8 mg/dL 1.6 - 2.6 11/27 H Specimen Type: PLASMA Comment: No hemolysis noted. Ordering Provider: ADINA HARDY Report Released Date/Time: Nov 27, 2024 05:33 AM Reporting Lab: [address] [address] Performing Lab: [address] [address] [facility] PHOSPHOROU S PHOSPHATE [MASS/VOLUM E] IN SERUM OR PLASMA 4.1 mg/dL 2.3 - 4.7 11/27 Specimen Type: PLASMA Comment: No hemolysis noted. Ordering Provider: ADINA HARDY Report Released Date/Time: Nov 27, 2024 05:38 AM Reporting Lab: [place] [address] [facility] [address] Performing Lab: [address] [address] [facility] BASIC METABOLIC PANEL CREATININE [MASS/VOLUM E] IN SERUM OR PLASMA 1.18 mg/dL 0.7 - 1.3 11/27 Specimen Type: PLASMA Comment: No hemolysis noted. Ordering Provider: ADINA HARDY Report Released Date/Time: Nov 27, 2024 05:33 AM Reporting Lab: [address] [address] Performing Lab: [place] [address] [facility] [address] [facility] BASIC METABOLIC PANEL UREA NITROGEN [MASS/VOLUM E] IN SERUM OR PLASMA 13.7 mg/dL 9.0 - 25.0 11/27 Specimen Type: PLASMA Comment: No hemolysis noted. Ordering Provider: ADINA HARDY Report Released Date/Time: Nov 27, 2024 05:33 AM Reporting Lab: [address] [address] Performing Lab: [address] [address] [facility] BASIC METABOLIC PANEL GLUCOSE [MASS/VOLUM E] IN SERUM OR PLASMA 106 mg/dL 72 - 99 11/27 H Specimen Type: PLASMA Comment: No hemolysis noted. Ordering Provider: ADINA HARDY Report Released Date/Time: Nov 27, 2024 05:33 AM Reporting Lab: [place] [address] [facility] [address] Performing Lab: [address] [address] [facility] BASIC METABOLIC PANEL SODIUM [MOLES/VOLU ME] IN SERUM OR PLASMA 141 meq/L 136 - 145 11/27 Specimen Type: PLASMA Comment: No hemolysis noted. Ordering Provider: ADINA HARDY Report Released Date/Time: Nov 27, 2024 05:33 AM Reporting Lab: [place] [address] [facility] [address] Performing Lab: [facility] [address] [place] [address] [facility] BASIC METABOLIC PANEL POTASSIUM [MOLES/VOLU ME] IN SERUM OR PLASMA 4.4 meq/L 3.5 - 5 11/27 Specimen Type: PLASMA Comment: No hemolysis noted. Ordering Provider: ADINA HARDY Report Released Date/Time: Nov 27, 2024 05:33 AM Reporting Lab: [address] [address] Performing Lab: [address] [address] [facility] BASIC METABOLIC PANEL CHLORIDE [MOLES/VOLU ME] IN SERUM OR PLASMA 104 meq/L 98 - 107 11/27 Specimen Type: PLASMA Comment: No hemolysis noted. Ordering Provider: ADINA HARDY Report Released Date/Time: Nov 27, 2024 05:33 AM Reporting Lab: [address] [address] Performing Lab: [facility] [address] [place] [address] [facility] BASIC METABOLIC PANEL CARBON DIOXIDE, TOTAL [MOLES/VOLU ME] IN SERUM OR PLASMA 26 meq/L 22 - 31 11/27 Specimen Type: PLASMA Comment: No hemolysis noted. Ordering Provider: ADINA HARDY Report Released Date/Time: Nov 27, 2024 05:33 AM Reporting Lab: [place] [address] [facility] [address] Performing Lab: [address] [place] [address] [facility] BASIC METABOLIC PANEL CALCIUM [MASS/VOLUM E] IN SERUM OR PLASMA 8.6 mg/dL 8.4 - 10.4 11/27 Specimen Type: PLASMA Comment: No hemolysis noted. Ordering Provider: ADINA HARDY Report Released Date/Time: Nov 27, 2024 05:33 AM Reporting Lab: [address] [address] Performing Lab: [address] [address] [facility] BASIC METABOLIC PANEL GLOMERULAR FILTRATION RATE/1.73 SQ M.PREDICTED [VOLUME RATE/AREA] IN SERUM, PLASMA OR BLOOD BY CREATININE- BASED FORMULA (CKD-EPI 2020) 67.6 60 11/27 Specimen Type: PLASMA Comment: No hemolysis noted. Ordering Provider: ADINA HARDY Report Released Date/Time: Nov 27, 2024 05:33 AM Reporting Lab: [address] [address] Performing Lab: [address] [address] [facility] Vital Signs Combined list of inpatient and outpatient Vital Signs from Department of Defense and Veterans Affairs, ranging from 12 months to all on record, depending upon the facility. Vital Sign Value Date Comments Source SYSTOLIC BLOOD PRESSURE 123 11/28/2024 04:33:34 [facility] DIASTOLIC BLOOD PRESSURE 73 11/28/2024 04:33:34 [facility] PULSE OXIMETRY 93 % 11/28/2024 04:33:34 [facility] PAIN 0 11/28/2024 04:33:34 [facility] TEMPERATURE 97.6 11/28/2024 04:33:34 [facility] PULSE 76 11/28/2024 04:33:34 [facility] RESPIRATION 18 11/28/2024 04:33:34 [facility] PAIN 0 11/27/2024 00:23:00 [facility] SYSTOLIC BLOOD PRESSURE 124 11/26/2024 01:32:36 [facility] DIASTOLIC BLOOD PRESSURE 67 11/26/2024 01:32:36 [facility] PULSE OXIMETRY 95 % 11/26/2024 01:32:36 [facility] PAIN 0 11/26/2024 01:32:36 [facility] TEMPERATURE 97 11/26/2024 01:32:36 [facility] PULSE 56 11/26/2024 01:32:36 [facility] RESPIRATION 18 11/26/2024 01:32:36 [facility] SYSTOLIC BLOOD PRESSURE 104 11/25/2024 14:50:04 [facility] DIASTOLIC BLOOD PRESSURE 70 11/25/2024 14:50:04 [facility] PULSE OXIMETRY 95 % 11/25/2024 14:50:04 [facility] TEMPERATURE 97.4 11/25/2024 14:50:04 [facility] PULSE 64 11/25/2024 14:50:04 [facility] RESPIRATION 16 11/25/2024 14:50:04 [facility] SYSTOLIC BLOOD PRESSURE 118 09/17/2024 13:59:41 [facility] DIASTOLIC BLOOD PRESSURE 75 09/17/2024 13:59:41 [facility] PULSE OXIMETRY 95 09/17/2024 13:59:41 [facility] WEIGHT 263.9 09/17/2024 13:59:41 [facility] BMI 33 kg/m2 09/17/2024 13:59:41 [facility] PAIN 0 09/17/2024 13:59:41 [facility] TEMPERATURE 97.5 09/17/2024 13:59:41 [facility] PULSE 81 09/17/2024 13:59:41 [facility] RESPIRATION 20 09/17/2024 13:59:41 [facility] Encounters Combined list of: 1) Encounters from Department of [facility] Affairs facilities going backup to the last 18 months, not all [place] inpatient encounters are included; 2) Encounters from the Department of Defense facilities going backup to 280 months. Location Location Details Encounter Type Encounter Number Reason For Visit Attending Provider ADM Date DC Date Status Disposition Source [facility] Outpatient Encounter [id number] 08/29 [facility] OFFICE O/P EST MOD 30 MIN [id number] Diagnos is: ICD-10- CM J44.9 Chronic obstruc tive pulmona ry disease , unspeci fied Ellis LUTHER NDRDANA 08/29 [facility] Outpatient Encounter [id number] 09/01 [facility] Outpatient Encounter [id number] 09/04 [facility] OFFICE O/P EST MOD 30 MIN [id number] Diagnos is: ICD-10- CM Z72.0 Tobacco use HUA SUTHERLAND 09/09 [facility] Outpatient Encounter [id number] 09/09 [facility] Outpatient Encounter [id number] YANNA HILLMAN 09/10 [facility] Outpatient Encounter [id number] OVERTURF,Winter ESSE A 09/10 [facility] Outpatient Encounter 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 Bessie GARCIA 09/17 [facility] CPTR OPHTH DX IMG POST SEGMT [id number] Diagnos is: ICD-10- CM H34.211 Partial retinal artery occlusi on, right eye LYNN WOODRUFF TTHEW C 09/17 [facility] OFFICE O/P EST MOD 30 MIN [id number] Diagnos is: ICD-10- CM R06.00 Dyspnea , unspeci fied OU,JIAFU 10/09 [facility] OFFICE O/P EST MOD 30 MIN [id number] Diagnos is: ICD-10- CM H34.211 Partial retinal artery occlusi on, right eye ABHINAV DUQUE 10/21 [facility] FUNDUS PHOTOGRAPH Y W/I&R [id number] Diagnos is: ICD-10- CM H35.9 Unspeci fied retinal disorde r JAMAR SMITH 10/21 [facility] OFF/OP CNSLTJ NEW/EST LOW 30 [id number] Diagnos is: ICD-10- CM Z86.010 Isis covarrubias history of colonic polyps Emely BRANDT 10/23 [facility] Outpatient Encounter [id number] 11/07 [facility] Outpatient Encounter [id number] 11/08 [facility] OFFICE O/P EST LOW 20 MIN [id number] Diagnos is: ICD-10- CM F17.210 Nicotin e depende nce, cigaret shara, uncompl icated HUA SUTHERLAND A 11/11 [facility] Outpatient Encounter [id number] 11/12 [facility] Outpatient Encounter [id number] 11/13 [facility] N [facility] ACUPUNCT W/O STIMUL 15 MIN [id number] Diagnos is: ICD-10- CM F17.200 Nicotin e depende nce, unspeci fied, uncompl icated MYRTLE KAY 11/20 [facility] [id number] Diagnos is: ICD-10- CM Z71.89 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 ed head counselor RENETTA Kelly 12/11 [facility] Outpatient Encounter [id number] 12/16 [facility] OFFICE O/P EST MOD 30 MIN [id number] Diagnos is: ICD-10- CM I63.9 Cerebra l infarct ion, unspeci fied OU,JIAFU 12/18 [facility] Outpatient Encounter [id number] 12/19 [facility] Outpatient Encounter [id number] ELSI SCOTT 12/22 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 Outpatient Encounter [id number] MYRTLE KAY 01/08 [facility] Outpatient Encounter [id number] 01/20 [facility] Outpatient Encounter [id number] 01/20 [facility] OFFICE O/P EST LOW 20 MIN [id number] Diagnos is: ICD-10- CM Z01.818 Encount er for other preproc edural examina tion KENRICK TOVAR IN A 01/21 [facility] Outpatient Encounter [id number] 01/21 [facility] OFFICE O/P EST SF 10 MIN [id number] Diagnos is: ICD-10- CM K63.5 Polyp of colon LYNN LEROY TTHEW H 01/21 [facility] Outpatient Encounter [id number] KEDAR FONTAINE K 01/21 [facility] Encounter [id number] ARNOLD MTZ S 01/22 [facility] Outpatient Encounter [id number] 01/23 [facility] Outpatient Encounter [id number] 02/12 [facility] Outpatient Encounter [id number] 03/03 [facility] Outpatient Encounter [id number] Diagnos is: ICD-10- CM J44.9 Chronic obstruc tive pulmona ry disease , unspeci fied OU,JIAFU 03/19 [facility] Outpatient Encounter [id number] Diagnos is: ICD-10- CM I63.9 Cerebra l infarct ion, unspeci fied RIZWANA CLOUD C 03/20 [facility] Outpatient Encounter [id number] 3 OVERTURF,J ESSE A 03/30 [facility] Outpatient Encounter [id number] 04/08 [facility] OFFICE O/P EST MOD 30 MIN [id number] Diagnos is: ICD-10- CM J44.9 Chronic obstruc tive pulmona ry disease , unspeci fied Bessie GARCIA 04/08 [facility] Outpatient Encounter [id number] 04/10 [facility] Outpatient Encounter [id number] Diagnos is: ICD-10- CM I63.9 Cerebra l infarct ion, unspeci fied RIZWANA CLOUD JACK Melton 04/16 [facility] Outpatient Encounter [id number] Bessie GARCIA HERE 04/16 [facility] Outpatient Encounter [id number] 04/16 [facility] Outpatient Encounter [id number] 05/11 [facility] REM INTERROG DEV EVAL SCRMS [id number] Diagnos is: ICD-10- CM G46.4 Cerebel lar stroke syndrom e RIZWANA CLOUD AJCK Melton 05/11 [facility] Outpatient Encounter [id number] [id number] 05/13 [facility] Outpatient Encounter 18065-6.66 [id number] 05/14 [facility] Outpatient Encounter 89352-9.66 [id number] 05/18 [facility] Outpatient Encounter 00930-6.65 [id number] 0 Bessie GARCIA HERE 05/19 [facility] Outpatient Encounter 38330-2.66 [id number] 05/19 [facility] OFFICE O/P EST MOD 30 MIN 09949-7.65 [id number] Diagnos is: ICD-10- CM I48.0 Paroxys mal atrial fibrill ation MCBessie VELÁSQUEZ 05/20 [facility] QNHP OL DIG ASSMT&MGMT 5-10 31216-7.65 [id number] 108 Diagnos is: ICD-10- CM I48.91 Unspeci fied atrial fibrill ation ROSEANNE VIZCARRA 05/20 [facility] Outpatient Encounter 19468-4.66 [id number] 05/20 [facility] Outpatient Encounter 12172-7.65 [id number] 5 Diagnos is: ICD-10- CM I48.0 Paroxys mal atrial fibrill ation JACOBO TELLO 05/21 [facility] Outpatient Encounter 48270-4.65 [id number] 7 05/21 [facility] Outpatient Encounter 78116-5.65 [id number] 4 Diagnos is: ICD-10- CM G46.4 Cerebel lar stroke syndrom e CINDY SMILEY 05/22 [facility] Outpatient Encounter 43495-0.65 [id number] 6 ZULEMA MORRISON ANY N 05/22 [facility] Outpatient Encounter 61992-8.66 [id number] 05/25 [facility] Outpatient Encounter 12494-5.66 [id number] 05/25 [facility] Outpatient Encounter 95543-3.66 [id number] 06/05 [facility] Outpatient Encounter 34936-9.65 [id number] 1 ZULEMA MORRISON ANY N 06/05 [facility] Outpatient Encounter 53570-2.66 [id number] 06/09 [facility] MTMS BY PHARM WELT STITCHER 15 MIN 32915-1.65 [id number] Diagnos is: ICD-10- CM Z51.81 Encount er for therape utic drug level monitor ROSEANNE Boswell M 06/15 [facility] Outpatient Encounter 87576-9.65 [id number] 5 ZULEMA MORRISON N 06/15 [facility] MTMS BY PHARM EST 15 MIN 08032-6.65 [id number] 442 Diagnos is: ICD-10- CM Z51.81 Encount er for therape utic drug level monitor ROSEANNE Boswell M 07/06 [facility] Outpatient Encounter 07743-3.66 [id number] 07/30 [facility] Outpatient Encounter 62973-0.65 [id number] 4 07/30 [facility] REM INTERROG DEV EVAL SCRMS 37251-0.65 [id number] 7 Diagnos is: ICD-10- CM G46.4 Cerebel lar stroke syndrom e RIZWANA CLOUD 07/31 [facility] Outpatient Encounter 77991-7.65 [id number] 102 Bessie GARCIA 07/31 [facility] Outpatient Encounter 88109-2.66 [id number] 08/03 [facility] Outpatient Encounter 29617-9.65 [id number] 9 Diagnos is: ICD-10- CM I48.0 Paroxys mal atrial fibrill ation OUJACOBO 08/03 [facility] Outpatient Encounter 03843-0.66 [id number] 08/05 [facility] Outpatient Encounter 39288-8.66 [id number] 08/07 [facility] Outpatient Encounter 17190-1.66 [id number] 08/07 [facility] OFFICE O/P EST MOD 30 MIN 39266-1.65 [id number] Diagnos is: ICD-10- CM J44.1 Chronic obstruc tive pulmona ry disease w (acute) exacerb ation Bessie GARCIA 08/07 [facility] MTMS BY PHARM EST 15 MIN 45583-9.65 [id number] Diagnos is: ICD-10- CM Z51.81 Encount er for therape utic drug level monitor ROSEANNE Boswell 08/10 [facility] Outpatient Encounter 20947-4.65 [id number] 2 Bessie GARCIA 08/12 [facility] Outpatient Encounter 22492-7.65 [id number] 1 08/28 [facility] OFFICE O/P EST MOD 30 MIN 05644-5.65 [id number] 1 Diagnos is: ICD-10- CM R06.00 Dyspnea , unspeci fiMAGO Yan T 08/28 [facility] Outpatient Encounter 74280-3.65 [id number] 0 09/01 [facility] Outpatient Encounter 97084-5.65 [id number] 4 09/02 [facility] Outpatient Encounter 69054-2.65 [id number] 9 ZULEMA MORRISON ANY N 09/04 [facility] SPACER WITHOUT MASK 70640-5.65 [id number] 9 Diagnos is: ICD-10- CM J44.9 Chronic obstruc tive pulmona ry disease , unspeci fied MARCELOMAGO GORE DT T 09/16 [facility] OFFICE O/P EST MOD 30 MIN 63301-5.65 [id number] 8 Diagnos is: ICD-10- CM I48.0 Paroxys mal atrial fibrill ation URIEL SHEPHERD D 09/17 [facility] Outpatient Encounter 94903-1.65 [id number] 5 09/21 [facility] SYNCH AUDIO-ONLY NEW HIGH 60 91223-4.65 [id number] 9 Diagnos is: ICD-10- CM I48.0 Paroxys mal atrial fibrill ation RIZWANA CLOUD C 09/21 [facility] Outpatient Encounter 90394-5.65 [id number] 5 09/22 [facility] Outpatient Encounter 13928-7.65 [id number] 7 09/22 [facility] Outpatient Encounter 04953-7.65 [id number] 4 09/22 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 DUNCAN IRIZARRY 09/23 [facility] Outpatient Encounter 31240-9.66 [id number] 09/29 [facility] Outpatient Encounter 19300-3.65 [id number] 5 Bessie GARCIA 10/06 [facility] Outpatient Encounter 34491-1.65 [id number] 290 10/20 [facility] OFF/OP CONSLTJ NEW/EST HI 55 92344-5.65 [id number] 296 Diagnos is: ICD-10- CM I48.19 Other persist ent atrial fibrill ation RIZWANA CLOUD 10/20 [facility] ASSMT&MGMT NQHP -30 49150-8.65 [id number] 3 Diagnos is: ICD-10- CM I48.0 Paroxys mal atrial fibrill ation ARTEMIO BARNETT 10/23 [facility] PH1 ASSMT&MGMT NQHP 21-30 57467-5.65 [id number] 7 Diagnos is: ICD-10- CM I48.0 Paroxys mal atrial fibrill ation Winter ERICKSON 11/02 [facility] PLACE NEEDLE IN VEIN 78264-4.73 [id number] 8 Diagnos is: ICD-10- CM I48.19 Other persist ent atrial fibrill ation ABBY PETTY 11/06 [facility] SYNCH AUDIO-ONLY EST MOD 30 21505-7.65 [id number] 3 Diagnos is: ICD-10- CM I48.19 Other persist ent atrial fibrill ation RIZWANA CLOUD C 11/09 [facility] Outpatient Encounter 78092-5.65 [id number] 8 11/20 [facility] PH1 ASSMT&MGMT NQHP 11-20 10810-9.65 [id number] 2 Diagnos is: ICD-10- CM G46.4 Cerebel lar stroke syndrom e Winter ERICKSON 11/20 [facility] Restoratio n of Cardiac Rhythm, Single 12040-0.65 [id number] 9 Admit Reason: ATRIAL FIBRILA TION MARIBEL ESTES 11/25 [facility] Inpatient Encounter 47558-9.65 [id number] 2 11/25 [facility] Inpatient Encounter 50927-0.65 [id number] 2 Diagnos is: ICD-10- CM I48.91 Unspeci fied atrial fibrill ation JOSE DUPONT 11/25 [facility] Inpatient Encounter 13945-2.65 [id number] 1 KIRSTEN DAN 11/25 [facility] En[facility] 50295-2.65 [id number] 2 BAKARI GRANADOS D 11/25 [facility] Inpatient Encounter 64786-0.65 [id number] 7 BAKARI GRANADOS HARD D 11/25 [facility] Inpatient Encounter 65518-4.65 [id number] 3 BAKARI GRANADOS HARD D 11/25 [facility] Inpatient Encounter 61338-7.65 [id number] 1 EDWARDO JIMENEZ M 11/25 [facility] Inpatient Encounter 39769-5.65 [id number] 0 EDWARDO JIMENEZ M 11/25 [facility] Inpatient Encounter 12075-5.65 [id number] 8 EDWARDO JIMENEZ NA M 11/25 [facility] Inpatient Encounter 77361-2.65 [id number] 6 EDWARDO JIMENEZ NA M 11/26 [facility] IP/OBS CNSLTJ NEW/EST MOD 60 60463-9.65 [id number] 2 Diagnos is: ICD-10- CM I48.0 Paroxys mal atrial fibrill JOSE García 11/26 [facility] Inpatient Encounter 52169-8.65 [id number] 1 EDWARDO JIMENZE 11/26 [facility] Inpatient Encounter 91733-5.65 [id number] 7 NULL,ANDREA FERNANDEZ N 11/26 [facility] Inpatient Encounter 58330-4.65 [id number] 8 NULL,ANDREA FERNANDEZ N 11/26 [facility] Inpatient Encounter 34899-0.65 [id number] 1 NULL,ANDREA FERNANDEZ N 11/26 [facility] NQHP OL DIG ASSMT&MGMT 5-10 27986-9.65 [id number] 0 Diagnos is: ICD-10- CM I48.0 Paroxys mal atrial fibrill ation LEFTY MAYA 11/26 [facility] MTMS BY PHARM ADDL 15 MIN 59685-1.65 [id number] 9 Diagnos is: ICD-10- CM Z51.81 Encount er for therape utic drug level monitor LEFTY Garrett 11/26 [facility] Inpatient Encounter 87846-1.65 [id number] 5 11/26 [facility] Inpatient Encounter 39093-3.65 [id number] 7 NULL,ANDREA Diamond 11/26 [facility] Inpatient Encounter 72826-7.65 [id number] 3 JOHANNY SY 11/26 [facility] Inpatient Encounter 25814-7.65 [id number] 5 JOHANNY SY 11/26 [facility] Inpatient Encounter 47919-3.65 [id number] 9 BARBARAEDWARDO STAPLETON M 11/26 [facility] Inpatient Encounter 28675-2.65 [id number] 6 BARBARAEDWARDO STAPLETON M 11/27 [facility] Inpatient Encounter 86622-8.65 [id number] 6 BARBARAEDWARDO STAPLETON M 11/27 [facility] Inpatient Encounter 90897-4.65 [id number] 3 BARBARAEDWARDO STAPLETON M 11/27 [facility] Inpatient Encounter 64805-3.65 [id number] 3 NULL,ANDREA JIM N 11[facility]27 [facility] En[facility] 23391-5.65 [id number] 9 NULL,ANDREA LLE N 11/27 [facility] Inpatient Encounter 62956-6.65 [id number] 0 NULL,ANDREA LLE N 11/27 [facility] SBSQ HOSP IP/OBS MODERATE 35 64141-8.65 [id number] 2 Diagnos is: ICD-10- CM I48.0 Paroxys mal atrial fibrill atJOSE Cardenas 11/27 [facility] Inpatient Encounter 78916-9.65 [id number] 0 11/27 [facility] Inpatient Encounter 62643-3.65 [id number] 5 11/27 [facility] OFFICE O/P EST MOD 30 MIN 30820-1.65 [id number] 8 Diagnos is: ICD-10- CM Z01.818 Encount er for other preproc edural examina MEGAN Cedillo 11/27 [facility] PT EDUCATION NOC INDIVID 47474-4.65 [id number] 8 Diagnos is: ICD-10- CM I48.3 Typical atrial flutter JACOBO TELLO 11/27 [facility] Inpatient Encounter 73121-2.65 [id number] 6 SHAYE FISHER 11/27 [facility] Inpatient Encounter 39367-3.65 [id number] 2 ANA PAULA AMATO 11/27 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 Inpatient Encounter 12377-0.65 [id number] 8 11/27 [facility] Inpatient Encounter 60528-2.65 [id number] 8 ANTWAN TERRA Jaffe 11/27 [facility] Inpatient Encounter 60380-8.65 [id number] 3 MONCADATERRA 11/28 [facility] Inpatient Encounter 30844-7.65 [id number] 1 TERRA MONCADA 11/28 [facility] Inpatient Encounter 91375-8.65 [id number] 2 TERRA MONCADA 11/28 [facility] Inpatient Encounter 48723-0.65 [id number] 3 ALFRED OSORIO 11/28 [facility] Inpatient Encounter 96966-6.65 [id number] 8 FRANCIS RICKETTS 11/28 [facility] Inpatient Encounter 93664-6.65 [id number] 5 11/28 [facility] SBSQ HOSP IP/OBS MODERATE 35 65067-1.65 [id number] 9 Diagnos is: ICD-10- CM I48.0 Paroxys mal atrial fibrill URIEL Velasquez 11/28 [facility] Inpatient Encounter 01360-9.65 [id number] 2 ALFRED OSORIO A 11/28 [facility] Inpatient Encounter 17665-3.65 [id number] 8 ALFRED OSORIO A 11/28 [facility] En[facility] 63133-0.65 [id number] 9 FRANCIS RICKETTS N 11/28 [facility] Encounter 42837-2.65 [id number] 0 ALFRED OSORIO A 11/28 [facility] En[facility] 51207-0.65 [id number] 1 ALFRED OSORIO A 11/28 [facility] Encounter 68735-9.65 [id number] 8 11/30 [facility] Outpatient Encounter 86747-5.65 [id number] 9 11/30 [facility] Outpatient Encounter 94638-4.65 [id number] 7 11/30 [facility] Outpatient Encounter 46474-5.65 [id number] 6 11/30 [facility] OFF/OP EST MAY X REQ PHY/QHP 36021-2.65 [id number] 897 Diagnos is: ICD-10- CM I48.0 Paroxys mal atrial fibrill ation MIKE MERCADO A 12/02 [facility] Outpatient Encounter 07197-5.65 [id number] 6 12/03 [facility] Outpatient Encounter 78723-0.65 [id number] 2 12/06 [facility] SYNCH AUDIO-ONLY EST HIGH 40 89384-0.65 [id number] 3 Diagnos is: ICD-10- CM I48.0 Paroxys mal atrial fibrill ation RIZWANA CLOUD JACK Melton 12/07 [facility] PH1 ASSMT&MGMT NQHP 21-30 21076-4.65 [id number] 8 Diagnos is: ICD-10- CM I48.0 Paroxys mal atrial fibrill ation AYUSH,ER IN K 12/07 [facility] Outpatient Encounter 56280-8.66 [id number] 12/09 [facility] REM INTERROG DEV EVAL SCRMS 03514-4.65 [id number] 9 Diagnos is: ICD-10- CM I48.0 Paroxys mal atrial fibrill ation RIZWANA CLOUD JACK C 12/09 [facility] PH1 ASSMT&MGMT NQHP 5-10 31116-6.65 [id number] 0 Diagnos is: ICD-10- CM I48.0 Paroxys mal atrial fibrill ation Winter ERICKSON 12/14 [facility] PH1 ASSMT&MGMT NQHP 21-30 53798-5.65 [id number] 4 Diagnos is: ICD-10- CM G46.4 Cerebel lar stroke syndrom e GEORGINA,J SHITAL Han 12/16 [facility] En[facility] 02069-5.66 [id number] 12/17 [facility] REM INTERROG DEV EVAL SCRMS 48764-5.65 [id number] 1 Diagnos is: ICD-10- CM G46.4 Cerebel lar stroke syndrom e RIZWANA CLOUD JACK Melton 12/17 [facility] Outpatient Encounter 08098-4.65 [id number] 3 Bessie GARCIA 12/18 [facility] Outpatient Encounter 89077-3.66 [id number] 12/29 [facility] Outpatient Encounter 12952-8.65 [id number] 4 12/29 [facility] Outpatient Encounter 99709-1.65 [id number] 8 12/29 [facility] SYNCH AUDIO-ONLY NEW 15 94260-0.65 [id number] 2 Diagnos is: ICD-10- CM R11.2 Nausea with vomitin g, unspeci Geronimo Stockton ONSTANCE D 12/29 [facility] Social History Combined list of available smoking, tobacco, and other social history from Department of Defense and [facility] Affairs facilities. Social History Type Response Date Comment Sourc e Tobacco smoking status NHIS VA-TOBACCO USE EVERY DAY CIGARETTES 04/08/2024 [facility] History of tobacco use IN-TOBACCO NEVER USED OTHER TYPE 04/08/2024 [facility] History of tobacco use VA-TOBACCO USER EVERY DAY 02/15/2023 [facility] History of tobacco use VA-TOBACCO USER EVERY DAY 02/19/2022 [facility] History of tobacco use VA-TOBACCO FORMER USER 10/11/2020 [facility] History of tobacco use QUIT TOBACCO IN THE LAST 12 MONTHS 02/14/2017 [facility] History of tobacco use YAKELIN TOBACCO MEDS INTERESTED 09/05/2015 [facility] History of tobacco use YAKELIN TOBACCO MEDS INTERESTED 08/24/2014 [facility] History of tobacco use YAKELIN TOBACCO MEDS INTERESTED 08/05/2013 [facility] Plan of Care List of future care activities from Department of [facility] Affairs facilities. Additional future care activities may be listed in the Assessment and Plan section. Date/Time Care Activity Care Activity Detail Chanelli ty 12/29/2024 AMBULATORY - NONE AMBULATORY - NONE [facility]
[2024-12-29] MEDS: SODIUM CHLORIDE 0.9% IV 1,000 ML 125 ML IV CONT (20:42)
[2024-12-29] MEDS: PANTOPRAZOLE SODIUM IV 40 MG VIAL IV PUSH (20:42)
[2024-12-29] MEDS: ONDANSETRON INJ 4 MG/2 ML VIAL IV PUSH (20:42)
--- NOTE | 2024-12-29 20:43 | ED.GENADULT ---
HPI - General Adult General Chief complaint: GI Bleed <Donte Henderson MD - Last Filed: 12/29/24 20:51> Stated complaint: throwing up blood <Donte Henderson MD - Last Filed: 12/29/24 20:51> Time Seen by Provider: 12/29/24 20:16 <Donte Henderson MD - Last Filed: 12/29/24 20:51> Source: patient <Donte Henderson MD - Last Filed: 12/29/24 20:51> Mode of arrival: ambulatory <Donte Henderson MD - Last Filed: 12/29/24 20:51> Limitations: no limitations <Donte Henderson MD - Last Filed: 12/29/24 20:51> History of Present Illness HPI narrative: 69-year-old with a history of atrial fibrillation on Eliquis, recent cardioversion at [facility] was started on Dofetilide 25 mg bid ever since he started this medication he has been constantly nauseated for last few wks, He states he was at his friends house over the wkend ,had several episodes of vomiting which he thinks it is black in color also had multiple episodes of diarrhea , denies any blood or black color stool .No previous history of GI bleed. <Donte Henderson MD - Last Filed: 12/29/24 20:51> Onset (ago): day(s) (3) <Donte Henderson MD - Last Filed: 12/29/24 20:51> Severity: mild <Donte Henderson MD - Last Filed: 12/29/24 20:51> Relieving factors: none <Donte Henderson MD - Last Filed: 12/29/24 20:51> Exacerbating factors: none <Donte Henderson MD - Last Filed: 12/29/24 20:51> Associated symptoms: denies other symptoms <Donte Henderson MD - Last Filed: 12/29/24 20:51> Treatments prior to arrival: none <Donte Henderson MD - Last Filed: 12/29/24 20:51> Related Data Home medications: Home Medications ?Medication ?Instructions ?Recorded ?Confirmed ?Last Taken ?Type lisinopril 20 mg tablet 20 mg PO DAILY 03/11/20 12/29/24 12/29/24 History rosuvastatin 20 mg tablet 20 mg PO DAILY 03/11/20 12/29/24 12/29/24 History sildenafil 100 mg tablet (Viagra) 100 mg PO DAILY PRN Erectile 04/18/21 12/29/24 07/25/24 History Dysfunction umeclidinium 62.5 mcg-vilanterol 1 inh inhalation DIRECTED 04/25/21 12/29/24 12/29/24 History 25 mcg/actuation powdr for inhalation (Anoro Ellipta) apixaban 5 mg tablet 5 mg PO BID 07/30/24 12/29/24 12/28/24 History albuterol sulfate 90 mcg/actuation inhalation shortness of breath 12/29/24 12/29/24 12:00 History aerosol inhaler dofetilide 250 mcg capsule 250 mcg PO BID 12/29/24 12/29/24 12/29/24 History <Donte Henderson MD - Last Filed: 12/29/24 20:51> Allergies/adverse reactions: Allergies Allergy/AdvReac Type Severity Reaction Status Date / Time No Known Allergies Allergy Unknown Unknown Verified 12/29/24 20:04 <Donte Henderson MD - Last Filed: 12/29/24 20:51> Review of Systems Review of Systems: All systems reviewed & are unremarkable except as noted in HPI and below <Donte Henderson MD - Last Filed: 12/29/24 20:51> Constitutional: Constitutional: Reports no additional constitutional complaints <Donte Henderson MD - Last Filed: 12/29/24 20:51> Eyes: Eyes: Reports no additional eye complaints <Donte Henderson MD - Last Filed: 12/29/24 20:51> ENT: Reports system reviewed and no additional complaints, except as documented <Donte Henderson MD - Last Filed: 12/29/24 20:51> Cardiovascular: Cardiovascular: Reports no additional cardiovascular complaints <Donte Henderson MD - Last Filed: 12/29/24 20:51> Respiratory: Respiratory: Reports no additional respiratory complaints <Donte Henderson MD - Last Filed: 12/29/24 20:51> Gastrointestinal: Gastrointestinal: Reports as per HPI <Donte Henderson MD - Last Filed: 12/29/24 20:51> Musculoskeletal: Musculoskeletal: Reports no additional musculoskeletal complaints <Donte Henderson MD - Last Filed: 12/29/24 20:51> Integumentary/Breasts: Skin/Breast: Reports system reviewed and no additional complaints, except as docu <Donte Henderson MD - Last Filed: 12/29/24 20:51> Neurologic: Reports system reviewed and no additional complaints, except as documented <Donte Henderson MD - Last Filed: 12/29/24 20:51> PMFSH Past Medical History Medical History: Medical History Colon polyp Hyperlipidemia Tobacco use Cerebrovascular accident (2013) Mild memory issues. Arthritis Non-small cell lung cancer Paroxysmal atrial fibrillation Chronic obstructive pulmonary disease Hiatal hernia Hypertension <Donte Henderson MD - Last Filed: 12/29/24 20:51> Surgical History Surgical History: Surgical History History of tonsillectomy History of arthroscopy of both knees History of total right hip arthroplasty History of cholecystectomy History of appendectomy History of lobectomy of lung (2020) Right middle lobectomy for treatment of cancer. History of colonoscopy with polypectomy <Donte Henderson MD - Last Filed: 12/29/24 20:51> Family History Family History: Family History Other Cerebrovascular accident HLD (hyperlipidemia) Heart disease Hypertension Kidney disorder Leukemia Lung cancer <Donte Henderson MD - Last Filed: 12/29/24 20:51> Social History Social History: Social History Social History: Surrogate medical decision maker: Es Stewart, spouse. Code status: Full code. Smoking packs per day: 0.5 Smoking cigarettes per day: 10.0 Years smoked: 50 Smoking pack-years: 25.00 Smoking status: Current every day smoker Tobacco type: cigarettes and e-cigarettes/vaping Additional smoking assessment comments: Smokes 6 to 8 cigarettes a day, previously smoked more. Alcohol intake: never Substance use: current Substance use type: marijuana Last use: 1 Do You Feel Safe in your Home?: Yes Lack of Transportation: No Lack of Food: Never True Current Housing: I Have Housing Concerned About Future Housing: No Difficulty Paying Gas/Electric Bills: No Difficulty Paying for Meds: No Currently Unemployed: No Education: Decline to Answer Difficulty w/ Childcare or Family Care: No Living arrangements: with family Occupation/Education: retired Spiritual care concerns: No <Donte Henderson MD - Last Filed: 12/29/24 20:51> Exam Narrative: GENERAL: Well-appearing, well-nourished, and in no acute distress. HEAD: Normocephalic, atraumatic. EYES: PERRLA and EOMI. ENT: Nares clear, no rhinorrhea or epistaxis. Mucous membranes moist. NECK: Supple. CHEST: Clear to auscultation. No respiratory distress. HEART: Regular rate and rhythm. No murmur heard. Normal peripheral pulses. ABDOMEN: Soft, nontender, nondistended, normal active bowel sounds. EXTREMITIES: Normal range of motion. No edema. SKIN: Warm, dry, no rash. NEURO: No focal deficits. Alert and oriented x3. PSYCH: Normal mood and affect. <Donte Henderson MD - Last Filed: 12/29/24 20:51> Course Course Emergency Course: ZYCH: Patient signed out pending CTA. CTA showed to punctate hypodense regions and on the ball which could be ingested food versus a very small bleed. Patient has not had any sort of emesis for 2 days his hemoglobin is 14.7. Very low concern for any significant GI bleeding. 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 Patient informed of these results instructed to follow-up with his primary care physician for referral to vascular. Patient will be discharged omeprazole and metoclopramide. Given return precautions for hematemesis/melena, anemia. <Se Ng MD - Last Filed: 12/29/24 22:52> Vital Signs Vital signs: Vital Signs Temperature 97.9 F 12/29/24 20:06 Pulse Rate 85 12/29/24 20:06 Respiratory Rate 16 12/29/24 20:06 Blood Pressure 166/91 H 12/29/24 20:06 Pulse Oximetry 95 12/29/24 20:06 Oxygen Delivery Room Air 12/29/24 20:06 Temperature 97.9 F 12/29/24 20:06 Pulse Rate 80 12/29/24 22:12 Respiratory Rate 16 12/29/24 22:12 Blood Pressure 114/72 12/29/24 22:12 Pulse Oximetry 92 12/29/24 22:12 Oxygen Delivery Room Air 12/29/24 20:06 <Donte Henderson MD - Last Filed: 12/29/24 20:51> Vital Signs Temperature 97.9 F 12/29/24 20:06 Pulse Rate 85 12/29/24 20:06 Respiratory Rate 16 12/29/24 20:06 Blood Pressure 166/91 H 12/29/24 20:06 Pulse Oximetry 95 12/29/24 20:06 Oxygen Delivery Room Air 12/29/24 20:06 Temperature 97.9 F 12/29/24 20:06 Pulse Rate 80 12/29/24 22:12 Respiratory Rate 16 12/29/24 22:12 Blood Pressure 114/72 12/29/24 22:12 Pulse Oximetry 92 12/29/24 22:12 Oxygen Delivery Room Air 12/29/24 20:06 <Se Ng MD - Last Filed: 12/29/24 22:52> Medical Decision Making Vital Signs Vital Signs: Vital Signs Temperature 97.9 F 12/29/24 20:06 Pulse Rate 85 12/29/24 20:06 Respiratory Rate 16 12/29/24 20:06 Blood Pressure 166/91 H 12/29/24 20:06 Pulse Oximetry 95 12/29/24 20:06 Oxygen Delivery Room Air 12/29/24 20:06 Temperature 97.9 F 12/29/24 20:06 Pulse Rate 80 12/29/24 22:12 Respiratory Rate 16 12/29/24 22:12 Blood Pressure 114/72 12/29/24 22:12 Pulse Oximetry 92 12/29/24 22:12 Oxygen Delivery Room Air 12/29/24 20:06 <Donte Henderson MD - Last Filed: 12/29/24 20:51> Vital Signs Temperature 97.9 F 12/29/24 20:06 Pulse Rate 85 12/29/24 20:06 Respiratory Rate 16 12/29/24 20:06 Blood Pressure 166/91 H 12/29/24 20:06 Pulse Oximetry 95 12/29/24 20:06 Oxygen Delivery Room Air 12/29/24 20:06 Temperature 97.9 F 12/29/24 20:06 Pulse Rate 80 12/29/24 22:12 Respiratory Rate 16 12/29/24 22:12 Blood Pressure 114/72 12/29/24 22:12 Pulse Oximetry 92 12/29/24 22:12 Oxygen Delivery Room Air 12/29/24 20:06 <Se Ng MD - Last Filed: 12/29/24 22:52> Lab Data Result diagrams: 12/29/24 20:51 12/29/24 20:51 <Donte Henderson MD - Last Filed: 12/29/24 20:51> Labs: Lab Results 12/29/24 Range/Units 20:51 WBC 9.2 (4.5-10.0) K/mm3 RBC 4.59 L (4.6-6.20) M/mm3 Hgb 14.7 (14.0-18.0) g/dL Hct 46.0 (42.0-52.0) % MCV 100.2 H (80-100) fl MCH 32.0 (26-34) pg MCHC 32.0 (32-36) g/dl RDW 13.4 (11.5-14.5) % Plt Count 231 (150-375) k/mm3 MPV 10.6 H (7.4-10.4) fl Immature Gran % (Auto) 0.2 (0-0.5) % Neut % (Auto) 67.9 (45.5-73.1) % Lymph % (Auto) 18.3 (18.3-44.2) % Florence % (Auto) 10.9 H (2.6-8.5) % Eos % (Auto) 2.3 (0-4.4) % Baso % (Auto) 0.4 (0.2-1.2) % Lymph # (Auto) 1.68 (0.9-3.2) K/mm3 Florence # (Auto) 1.0 H (0.1-0.6) K/mm3 Eos # (Auto) 0.2 (0-0.3) K/mm3 Baso # (Auto) 0.0 (0.0-0.1) K/mm3 Abs Immat Gran (auto) 0.02 (0.00-0.031) K/mm3 Absolute Neuts (auto) 6.2 (1.3-6.7) K/mm3 Absolute Nucleated RBC 0.000 (0.0-0.012) K/mm3 Nucleated RBC % 0.0 (0.0-0.2) % PT 14.9 H (11.1-14.7) Seconds INR 1.2 Sodium 137 (137-145) mmol/L Potassium 3.6 (3.4-5.0) mmol/L Chloride 102 (98-107) mmol/L Carbon Dioxide 26 (22-30) mmol/L Anion Gap 9 (4-12) mmol/L BUN 20 (9-20) mg/dL Creatinine 1.35 H (0.7-1.3) mg/dL Estim Creat Clear Calc 65 ml/min Estimated GFR 53 L (59 - ) Glucose 119 H (65-110) mg/dL Calcium 9.7 (8.4-10.2) mg/dL Total Bilirubin 0.7 (0.2-1.3) mg/dL AST 22 (17-59) U/L ALT 18 (6-50) U/L Alkaline Phosphatase 104 (38-126) U/L Total Protein 7.9 (6.3-8.2) g/dL Albumin 4.3 (3.5-5.1) g/dL Lipase 102 (23-300) U/L <Donte Henderson MD - Last Filed: 12/29/24 20:51> Lab Results 12/29/24 Range/Units 20:51 WBC 9.2 (4.5-10.0) K/mm3 RBC 4.59 L (4.6-6.20) M/mm3 Hgb 14.7 (14.0-18.0) g/dL Hct 46.0 (42.0-52.0) % MCV 100.2 H (80-100) fl MCH 32.0 (26-34) pg MCHC 32.0 (32-36) g/dl RDW 13.4 (11.5-14.5) % Plt Count 231 (150-375) k/mm3 MPV 10.6 H (7.4-10.4) fl Immature Gran % (Auto) 0.2 (0-0.5) % Neut % (Auto) 67.9 (45.5-73.1) % Lymph % (Auto) 18.3 (18.3-44.2) % Florence % (Auto) 10.9 H (2.6-8.5) % Eos % (Auto) 2.3 (0-4.4) % Baso % (Auto) 0.4 (0.2-1.2) % Lymph # (Auto) 1.68 (0.9-3.2) K/mm3 Florence # (Auto) 1.0 H (0.1-0.6) K/mm3 Eos # (Auto) 0.2 (0-0.3) K/mm3 Baso # (Auto) 0.0 (0.0-0.1) K/mm3 Abs Immat Gran (auto) 0.02 (0.00-0.031) K/mm3 Absolute Neuts (auto) 6.2 (1.3-6.7) K/mm3 Absolute Nucleated RBC 0.000 (0.0-0.012) K/mm3 Nucleated RBC % 0.0 (0.0-0.2) % PT 14.9 H (11.1-14.7) Seconds INR 1.2 Sodium 137 (137-145) mmol/L Potassium 3.6 (3.4-5.0) mmol/L Chloride 102 (98-107) mmol/L Carbon Dioxide 26 (22-30) mmol/L Anion Gap 9 (4-12) mmol/L BUN 20 (9-20) mg/dL Creatinine 1.35 H (0.7-1.3) mg/dL Estim Creat Clear Calc 65 ml/min Estimated GFR 53 L (59 - ) Glucose 119 H (65-110) mg/dL Calcium 9.7 (8.4-10.2) mg/dL Total Bilirubin 0.7 (0.2-1.3) mg/dL AST 22 (17-59) U/L ALT 18 (6-50) U/L Alkaline Phosphatase 104 (38-126) U/L Total Protein 7.9 (6.3-8.2) g/dL Albumin 4.3 (3.5-5.1) g/dL Lipase 102 (23-300) U/L <Se Ng MD - Last Filed: 12/29/24 22:52> Discharge Plan Discharge Clinical Impression: Nausea & vomiting <Donte Henderson MD - Last Filed: 12/29/24 20:51> Patient Disposition: Home <Donte Henderson MD - Last Filed: 12/29/24 20:51> Condition: Stable <Donte Henderson MD - Last Filed: 12/29/24 20:51> Instructions: Antibiotic Form, Acute Nausea and Vomiting (DC) <Donte Henderson MD - Last Filed: 12/29/24 20:51> Additional Instructions: You were seen in the emergency department for nausea and vomiting. Please use Reglan and omeprazole. Please follow-up with your primary care physician and your software configuration manager. If you develop coffee-ground emesis black or bloody stools, weakness or shortness of breath please return to ED for re-evaluation. 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 Please follow-up with your primary care physician in 1 week as you may need referral to a vascular surgeon. <Donte Henderson MD - Last Filed: 12/29/24 20:51> Patient Language: Croatian <Donte Henderson MD - Last Filed: 12/29/24 20:51> Prescriptions: New metoclopramide HCl [Reglan] 10 mg tablet 10 mg PO Q6H PRN (Reason: nausea and vomiting) Qty: 30 0RF omeprazole 40 mg capsule,delayed release(DR/EC) 40 mg PO DAILY Qty: 30 0RF No Action umeclidinium-vilanterol [Anoro Ellipta] 62.5-25 mcg/actuation blister with device 1 inh INHALATION DIRECTED sildenafil [Viagra] 100 mg Tablet 100 mg PO DAILY PRN (Reason: Erectile Dysfunction) metoprolol succinate [Toprol XL] 25 mg Tablet Extended Release 24 Hr 25 mg PO QAM Qty: 30 0RF lisinopril 20 mg tablet 20 mg PO DAILY rosuvastatin 20 mg tablet 20 mg PO DAILY apixaban 5 mg tablet 5 mg PO BID dofetilide 250 mcg capsule 250 mcg PO BID albuterol sulfate 90 mcg/actuation HFA aerosol inhaler INHALATION <Donte Henderson MD - Last Filed: 12/29/24 20:51> Follow-up/Referrals: Neymar Fuentes MD [Primary Care Provider] - <Donte Henderson MD - Last Filed: 12/29/24 20:51>
--- OUTSIDE RECORDS SUMMARY | 2024-12-29 20:46 | XMS_ITS | Referral Summary ---
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
--- OUTSIDE RECORDS SUMMARY | 2024-12-29 20:46 | XMS_ITS | Encounter Summary ---
Author Organization [facility] Address [address] [place] [address] Care Team Providers Care Door Paneler Name Role Phone Jm Cedillo MD Primary Care Provider [phone]- [phone] Encounter Details Date Type Department Care Team (Late st Contact Info) Description 08/17/2017 Abstract [facility] CONVERSION [address] [place] [address] , Generic MD Rob Social History Tobacco [...] on filedocumented in this encounter Care Teams Door Paneler Relationship Specialty Start Date End Date Jm Cedillo MD PCP - General INTERNAL MEDICINE 12/23/18 documented as of this encounter
--- OUTSIDE RECORDS SUMMARY | 2024-12-29 20:46 | XMS_ITS | Clinical Summary ---
Author Organization [facility] Address [address] [place] [id number] Care Team Providers Care Assembly Inspector Helper Name Role Phone Jm Cedillo MD Primary Care Provider [phone]- [phone] Social History Tobacco Use Types Packs/Day Years [...] Health Maintenance Insurance MEDICARE MEDICAID Care Teams Assembly Inspector Helper Relationship Specialty Start Date End Date Jm Cedillo MD PCP - General INTERNAL MEDICINE 12/23/18
--- OUTSIDE RECORDS SUMMARY | 2024-12-29 20:46 | XMS_ITS | Clinical Summary ---
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
--- OUTSIDE RECORDS SUMMARY | 2024-12-29 20:46 | XMS_ITS | Clinical Summary ---
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
--- OUTSIDE RECORDS SUMMARY | 2024-12-29 20:47 | XMS_ITS | Continuity of Care Document ---
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 Name Role Phone [facility] Unavailable Unavailable Problems Combined list of problems [...] [facility] Anxiety Active Condition [facility] Asthma Active Condition [facility] Asthma (SNOMED CT [id number]) Active Condition [facility] Chronic kidney disease stage 3A Active Condition [facility] Chronic obstructive lung disease Active Condition [facility] CVA - Cerebrovascular accident Active Condition [facility] Daily headache Active Condition [facility] Deficiency of vitamin D3 Active Condition [facility] Dyspnea Active Condition [facility] Erectile dysfunction Active Condition [facility] Essential hypertension Active Condition [facility] Hepatitis C Active Condition [facility] Hepatitis C Active Condition Mar 09, 2019 Entered By: GEE HATFIELD Comment: in remission [facility] Histoplasmosis Active Condition Jul 052016 Entered By: KISHORE AGUAYO Comment: Hx. of left lower lobe wedge rescetions in the mid per notes from Dr. Mio Palencia [facility] History of cerebrovascular accident Active Condition [facility] History of colonic polyp Active Condition [facility] History of polyp of colon Active Condition [facility] History of right hip replacement Active Condition [facility] H[facility] - Hyperlipidaemia Active Condition [facility] Hyperlipidemia Active Condition [facility] Hypertensive heart AND chronic kidney disease stage 3 Active Condition [facility] Knee pain (SNOMED CT 84687173) Active Condition [facility] Lung cancer Active Condition Apr 05, 2021 Entered By: WES GARCIA Comment: RLL - Lobectomy - August 2020 [facility] Multiple pulmonary nodules Active Condition [facility] [place] Nicotine dependence Active Condition [facility] Osteoarthritis of joint of left shoulder region Active Condition [facility] PAF - Paroxysmal atrial fibrillation Active Condition [facility] Pain in right hip joint Active Condition Aug 09, 2016 Entered By: KISHORE AGUAYO Comment: 04/04/2016- right toal hip arthroplasty by Dr. Irwin Kolb [facility] Pain of left shoulder joint Active Condition [facility] Periventricular hemorrhagic venous infarct Active Condition [facility] periventricular infarction Active Condition [facility] Peyronie's disease Active Condition [facility] Prediabetes Active Condition [facility] Shoulder pain Active Condition [facility] Tobacco dependence, continuous Active Condition [facility] Tobacco use Active Condition [facility] Vitamin D deficiency Active Condition [facility] Benign essential hypertension Inactive Condition 04/05/2021 [facility] Diagnosis: ICD-10-CM R11.2 Nausea with vomiting, unspecified Active Diagnosis [facility] Diagnosis: ICD-10-CM G46.4 Cerebellar stroke syndrome Active Diagnosis [facility] Diagnosis: ICD-10-CM I48.0 Paroxysmal atrial fibrillation Active Diagnosis [facility] Diagnosis: ICD-10-CM Z71.81 Spiritual or hinduism counseling Active Diagnosis [facility] Diagnosis: ICD-10-CM I48.3 Typical atrial flutter Active Diagnosis [facility] Diagnosis: ICD-10-CM Z01.818 Encounter for other preprocedural examination Active Diagnosis [facility] Diagnosis: ICD-10-CM Z51.81 Encounter for therapeutic drug level monitoring Active Diagnosis [facility] Diagnosis: ICD-10-CM I48.91 Unspecified atrial fibrillation Active Diagnosis [facility] Admit Reason: ATRIAL FIBRILATION Active Diagnosis [facility] Diagnosis: ICD-10-CM I48.19 Other persistent atrial fibrillation Active Diagnosis [facility] Diagnosis: ICD-10-CM I25.10 Athscl heart disease of [place] coronary artery w/o ang pctrs Active Diagnosis [facility] Diagnosis: ICD-10-CM Z02.9 Encounter for administrative examinations, unspecified Active Diagnosis [facility] Diagnosis: ICD-10-CM J44.9 Chronic obstructive pulmonary disease, unspecified Active Diagnosis [facility] Diagnosis: ICD-10-CM R06.00 Dyspnea, unspecified Active Diagnosis [facility] Diagnosis: ICD-10-CM J44.1 Chronic obstructive pulmonary disease w (acute) exacerbation Active Diagnosis [facility] Diagnosis: ICD-10-CM I63.9 Cerebral infarction, unspecified Active Diagnosis [facility] Diagnosis: ICD-10-CM K63.5 Polyp of colon Active Diagnosis [facility] Diagnosis: ICD-10-CM 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 Active Diagnosis [facility] Diagnosis: ICD-10-CM Z72.0 Tobacco use Active Diagnosis [facility] Diagnosis: ICD-10-CM Z71.89 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ed counseling Active Diagnosis [facility] Diagnosis: ICD-10-CM F17.200 Nicotine dependence, unspecified, uncomplicated Active Diagnosis [facility] Diagnosis: ICD-10-CM F17.210 Nicotine dependence, cigarettes, uncomplicated Active Diagnosis [facility] Diagnosis: ICD-10-CM Z86.010 Personal history of colonic polyps Active Diagnosis [facility] Diagnosis: ICD-10-CM H35.9 Unspecified retinal disorder Active Diagnosis [facility] Diagnosis: ICD-10-CM H34.211 Partial retinal artery occlusion, right eye Active Diagnosis [facility] Diagnosis: ICD-10-CM 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 Medications Combined list of outpatient medications [...] . RESPIR ATORY (INHAL ATION) ACTIVE 04/09/2025 [id number] 5 WES GARCIA 2023 3 [facility] APIXABAN 5MG TAB TAKE ONE TABLET BY MOUTH TWICE A DAY FOR ANTICOAG ULATION ORAL ACTIVE 08/11/2025 [id number] 5 SA RUMA VIZCARRA M 2024 60 [facility] APIXABAN 5MG TAB TAKE ONE TABLET BY MOUTH TWICE A DAY FOR ANTICOAG ULATION ORAL DISCONT INUED 05/21/2025 [id number] 5 WES GARCIA 2023 60 [facility] BISACODYL 5MG TAB,EC TAKE TWO TABLETS BY MOUTH ONE TIME TAKE BISACODY L TABLETS AT 4PM ON AFTERNOO N PRIOR TO TEST. CALL WITH ANY QUESTION S ABOUT THESE INSTRUCT IONS. MAIL TAKE BISACODY L TABLETS AT 4PM ON AFTERNOO N PRIOR TO TEST. CALL [phone] WITH ANY QUESTION S ABOUT THESE INSTRUCT IONS. MAIL ORAL 12/05/2023 [id number] 4 SHARON BRANDT 2023 2 [facility] BUMETANIDE 1MG TAB TAKE ONE-HALF TABLET BY MOUTH EVERY MORNING FOR FLUID RETENTIO N (EDEMA) ORAL DISCONT INUED 09/27/2024 [id number] 5 CLAUDIA [place] NDT T 2024 4 [facility] BUMETANIDE 1MG TAB TAKE ONE-HALF TABLET BY MOUTH EVERY MORNING FOR FLUID RETENTIO N (EDEMA) ORAL 10/02/2024 [id number] 5 CLAUDIA [place] NDT T 2024 4 [facility] BUPROPION HCL 150MG 12HR TAB,SA TAKE ONE TABLET BY MOUTH TWICE A DAY FOR SMOKING CESSATIO N. SWALLOW WHOLE - DO NOT CRUSH OR CHEW. ORAL 09/10/2024 [id number] 4 AMI SUTHER[place] A 2023 180 [facility] N CLOPIDOGREL BISULFATE 75MG TAB TAKE ONE TABLET BY MOUTH DAILY ORAL ACTIVE Zoraida AGUAYO 2016 [facility] DOFETILIDE 250MCG CAP TAKE ONE CAPSULE BY MOUTH EVERY 12 HOURS FOR ATRIAL FIBRILLA TION - AVOID GRAPEFRU IT/GRAPE FRUIT JUICE WHILE ON THIS MEDICATI ON. ORAL ACTIVE 11/29/2025 [id number] 5 LIDIA SWANSON 2024 180 [facility] FOLIC [facility] 0.4MG TAB TAKE ONE TABLET BY MOUTH ONCE A DAY FOR FOLIC ACID SUPPLEME NTATION ORAL ACTIVE 11/29/2025 [id number] 5 LIDIA SWANSON 2024 90 [facility] HYDROCODONE 7.5MG/ACETA MINOPHEN 325MG TAB TAKE ONE TABLET BY MOUTH EVERY 4 HOURS NEEDED ORAL ACTIVE Zoraida AGUAYO 2016 [facility] HYDROXYZINE HCL 10MG *HI-ALERT* TAB TAKE 25MG BY MOUTH THREE TIMES A DAY NEEDED ORAL ACTIVE Zoraida AGUAYO 2016 [facility] LISINOPRIL 20MG TAB TAKE ONE-HALF TABLET BY MOUTH DAILY ORAL ACTIVE Zoraida AGUAYO 2016 [facility] LISINOPRIL 40MG TAB TAKE ONE-HALF TABLET BY MOUTH ONCE A DAY ORAL ACTIVE Ramiro HATFIELD 2018 [facility] METHOCARBAM OL 500MG TAB TAKE 1 TABLET BY MOUTH THREE TIMES A DAY NEEDED FOR MUSCLE SPASM ORAL ACTIVE 12/23/2025 [id number] 5 MCQUAIDE, 2024 90 [facility] METHOCARBAM OL 500MG TAB TAKE 1 TABLET BY MOUTH THREE TIMES A DAY NEEDED FOR MUSCLE SPASM ORAL DISCONT INUED 04/09/2025 [id number] 5 MCQUAIDE, WES2023 90 [facility] METHOCARBAM OL 500MG TAB TAKE 1 TABLET BY MOUTH THREE TIMES A DAY NEEDED ORAL DISCONT [facility] 09/18/2024 [id number] 4 MCQUAIDE, 2023 90 [facility] METOPROLOL SUCCINATE 50MG TAB,SA TAKE ONE-HALF TABLET BY MOUTH ONCE A DAY ORAL ACTIVE SA RUMA VIZCARRA 2024 [facility] PEG-3350/EL ECTROLYTES PWDR MIX AND [...] TEST. READ YOUR INSTRUCT IONS!) ORAL 12/05/2023 [id number] 4 SHARON BRANDT 2023 1 [facility] POTASSIUM CHLORIDE 20MEQ TAB,SA (DISPERSIBL E) TAKE TWO TABLETS BY MOUTH ONCE A DAY FOR POTASSIU M SUPPLEME NTATION TAKE WITH FOOD ORAL 09/27/2024 [id number] 5 MARCELO,CLAUDIA NDT T 2024 14 [facility] PREDNISONE 10MG TAB [...] FOOD OR MILK. ORAL DISCONT INUED 09/12/2024 [id number] 5 WES GARCIA 2024 93 [facility] PREDNISONE 10MG TAB TAKE TWO TABLETS BY MOUTH EVERY MORNING FOR 2 DAYS, THEN TAKE ONE TABLET EVERY MORNING FOR 6 DAYS, THEN TAKE ONE-HALF TABLET EVERY MORNING FOR 6 DAYS FOR COPD EXACERBA TION TAKE WITH FOOD OR MILK. ORAL 09/27/2024 [id number] 5 CLAUDIA [place] NDT T 2024 13 [facility] ROSUVASTATI N CA 40MG TAB TAKE ONE-HALF TABLET BY MOUTH EVERY EVENING ORAL ACTIVE LEFTY VALLADARES 2020 [facility] LUIS E N SIMETHICONE 80MG TAB,CHEW CHEW AND SWALLOW FOUR TABLETS BY MOUTH DIRECTED FOR TWO DOSES BEFORE GI PROCEDUR E ORAL 12/05/2023 [id number] 4 SHARON BRANDT 2023 8 [facility] N UMECLIDINCHAYITO M 62.5MCG/SOHEILA ANTEROL 25MCG/ACTUA T INH,ORAL,30 D INHALE 1 PUFF ORAL INHALATI ON ONCE A DAY RESPIR ATORY (INHAL ATION) ACTIVE BLAINELEFTY HELCHRISTA Covarrubias 2020 [facility] Allergies, Adverse Reactions, Alerts Combined list of allergies from 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 It does not include entries that were removed or entered in error. Substance Category Reaction Severity Reaction type Status Date Reported Comments Source CHANTIX Propensity to adverse reactions to drug (finding) Nightmares active 0 [facility] Immunizations Combined list of available immunizations from the 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 Immunization Series Date Given Administered By Site Reaction Lot Number CVX Code Drug Silo Filler Status Comments Source INFLUENZA, HIGH-DOSE, TRIVALENT, PF 2023 OVERTURF,BRIGITTE Corral RIGHT DELTO ID [id number] 135 complet ed [facility] COVID-19 (PFIZER), MRNA, LNP-S, PF, AGUILAR-SUCROSE, 30 MCG/0.3 ML (AGES 12+ YEARS) 2023 309 complet ed HISTORICA L INFORMATI ON - FROM PATIENT'S RECALL, [facility] COVID-19 (MODERNA), MRNA, LNP-S, PF, 50 MCG/0.5 ML (AGES 12+ YEARS) 1 2023 312 complet ed HISTORICA L INFORMATI ON - FROM OTHER REGISTRY, [place] COVID-19 (MODERNA), MRNA, LNP-S, PF, 50 MCG/0.5 ML (AGES 12+ YEARS) 6 2022 312 complet ed HISTORICA L INFORMATI ON - FROM OTHER [facility], [place] INFLUENZA, HIGH-DOSE, QUADRIVALENT, PF 1 2022 197 complet ed HISTORICA L INFORMATI ON - FROM OTHER [facility], [place] RSV, RECOMBINANT, PROTEIN SUBUNIT [id number], ADJUVANT RECONSTITUTED , 0.5 ML, PF 1 2022 303 complet ed HISTORICA L INFORMATI ON - FROM OTHER REGISTRY, [place] COVID-19 (PFIZER), MRNA, LNP-S, PF, AGUILAR-SUCROSE, 30 MCG/0.3 ML (AGES 12+ YEARS) 1 2022 309 complet ed HISTORICA L INFORMATI ON - FROM PATIENT'S RECALL, [facility] INFLUENZA, UNSPECIFIED FORMULATION 2022 88 complet ed HISTORICA L INFORMATI ON - FROM PATIENT'S RECALL, [facility] N PNEUMOCOCCAL CONJUGATE PCV20, POLYSACCHARID E [id number] CONJUGATE, ADJUVANT, PF 3 2021 216 complet ed HISTORICA L INFORMATI ON - FROM OTHER REGISTRY, [place] INFLUENZA, SPLIT VIRUS, QUADRIVALENT, PF 1 2021 150 complet ed HISTORICA L INFORMATI ON - FROM OTHER REGISTRY, [place] INFLUENZA, UNSPECIFIED FORMULATION 2021 88 complet ed HISTORICA L INFORMATI ON - FROM PATIENT'S RECALL, [facility] COVID-19, MRNA, LNP-S, BIVALENT BOOSTER, PF, 30 MCG/0.3 ML DOSE 1 2021 300 complet ed PFR; [id number]; 3 [facility] COVID-19 (Ujogo), MRNA, LNP-S, PF, 30 MCG/0.3 ML DOSE, AGUILAR-SUCROSE (AGES 12+ YEARS) 4 2021 217 complet ed [facility] ZOSTER RECOMBINANT 2 2021 187 complet ed [facility] COVID-19 (Ujogo), MRNA, LNP-S, PF, 30 MCG/0.3 ML DOSE 3 2020 208 complet ed PFR; [id number]; 2 [facility] INFLUENZA, INJECTABLE, QUADRIVALENT, PRESERVATIVE FREE 2020 150 complet ed [facility] ZOSTER RECOMBINANT 1 2020 187 complet ed [facility] COVID-19 (Ujogo), MRNA, LNP-S, PF, 30 MCG/0.3 ML DOSE 2 2020 208 complet ed HISTORICA L INFORMATI ON - FROM OTHER REGISTRY, [place] COVID-19 (PFIZER), MRNA, LNP-S, PF, 30 MCG/0.3 ML DOSE 2 2020 208 complet ed [facility] COVID-19 (Ujogo), MRNA, LNP-S, PF, 30 MCG/0.3 ML DOSE 1 2020 208 complet ed [facility] INFLUENZA, UNSPECIFIED FORMULATION 2019 88 complet ed [facility] INFLUENZA, SPLIT VIRUS, QUADRIVALENT, PF 1 2019 150 complet ed HISTORICA L INFORMATI ON - FROM OTHER REGISTRY, [place] TDAP 1 2018 115 complet ed HISTORICA L INFORMATI ON - FROM OTHER REGISTRY, [facility] INFLUENZA, UNSPECIFIED FORMULATION 2018 88 complet ed [facility] INFLUENZA, MDCK, QUADRIVALENT, PRESERVATIVE 1 2018 186 complet ed HISTORICA L INFORMATI ON - FROM OTHER REGISTRY, [place] INFLUENZA, SPLIT VIRUS, QUADRIVALENT, PRESERVATIVE 1 2017 158 complet ed HISTORICA L INFORMATI ON - FROM OTHER REGISTRY, [place] INFLUENZA, SPLIT VIRUS, QUADRIVALENT, PRESERVATIVE 1 2016 158 complet ed HISTORICA L INFORMATI ON - FROM OTHER REGISTRY, [place] INFLUENZA, SEASONAL, INJECTABLE, PRESERVATIVE FREE 2015 140 complet ed [place] INFLUENZA, SPLIT VIRUS, TRIVALENT, PF 1 2015 140 complet ed HISTORICA L INFORMATI ON - FROM OTHER REGISTRY, [place] INFLUENZA, UNSPECIFIED FORMULATION 2014 88 complet ed [facility] PNEUMOCOCCAL CONJUGATE PCV 13 2014 133 complet ed notes dated 07/25/[address] Mio Palencia [facility] PNEUMOCOCCAL CONJUGATE PCV 13 2014 133 complet ed [facility] INFLUENZA, SPLIT VIRUS, TRIVALENT, PF 1 2013 140 complet ed HISTORICA L INFORMATI ON - FROM OTHER REGISTRY, [place] PNEUMOCOCCAL POLYSACCHARID E PPV23 2013 33 complet ed [facility] INFLUENZA, UNSPECIFIED FORMULATION 2013 88 complet ed [place] INFLUENZA, UNSPECIFIED FORMULATION 2013 88 complet ed [place] INFLUENZA, SPLIT VIRUS, TRIVALENT, PRESERVATIVE 1 2012 141 complet ed HISTORICA L INFORMATI ON - FROM OTHER REGISTRY, [place] PNEUMOCOCCAL POLYSACCHARID E PPV23 1 2012 33 complet ed HISTORICA L INFORMATI ON - FROM OTHER REGISTRY, [place] PNEUMOCOCCAL POLYSACCHARID E PPV23 2012 33 complet ed [facility] 2012 121 complet ed [facility] 2009 121 complet ed [facility] Results Combined list of [...] Nov 27, 2024 07:13 PM Reporting Lab: [address] [address] Performing Lab: [address] [phone] [facility] RENAL PANEL CREATININE [MASS/VOLUM E] IN SERUM OR PLASMA 1.15 mg/dL 0.7 - 1.3 11/28 Specimen Type: PLASMA Comment: No hemolysis noted. Ordering Provider: INOCENCIA TITUS Report Released Date/Time: Nov 27, 2024 07:13 PM Reporting Lab: [facility] [address] [place] [phone] Performing Lab: [facility] [address] [place] [phone] [facility] RENAL PANEL UREA NITROGEN [MASS/VOLUM E] IN SERUM OR PLASMA 13.3 mg/dL 9.0 - 25.0 11/28 Specimen Type: PLASMA Comment: No hemolysis noted. Ordering Provider: INOCENCIA TITUS Report Released Date/Time: Nov 27, 2024 07:13 PM Reporting Lab: [facility] [address] [place] [phone] Performing Lab: [address] [address] [facility] RENAL PANEL GLUCOSE [MASS/VOLUM E] IN SERUM OR PLASMA 104 mg/dL 72 - 99 11/28 H Specimen Type: PLASMA Comment: No hemolysis noted. Ordering Provider: INOCENCIA TITUS Report Released Date/Time: Nov 27, 2024 07:13 PM Reporting Lab: [facility] [address] [place] [phone] Performing Lab: [facility] [address] [place] [phone] [facility] RENAL PANEL SODIUM [MOLES/VOLU ME] IN SERUM OR PLASMA 139 meq/L 136 - 145 11/28 Specimen Type: PLASMA Comment: No hemolysis noted. Ordering Provider: INOCENCIA TITUS Report Released Date/Time: Nov 27, 2024 07:13 PM Reporting Lab: [address] [address] Performing Lab: [address] [address] [facility] RENAL PANEL POTASSIUM [MOLES/VOLU ME] IN SERUM OR PLASMA 4.1 meq/L 3.5 - 5 11/28 Specimen Type: PLASMA Comment: No hemolysis noted. Ordering Provider: INOCENCIA TITUS Report Released Date/Time: Nov 27, 2024 07:13 PM Reporting Lab: [facility] [address] [place] [phone] Performing Lab: [facility] [address] [place] [phone] [facility] RENAL PANEL CHLORIDE [MOLES/VOLU ME] IN SERUM OR PLASMA 105 meq/L 98 - 107 11/28 Specimen Type: PLASMA Comment: No hemolysis noted. Ordering Provider: INOCENCIA TITUS Report Released Date/Time: Nov 27, 2024 07:13 PM Reporting Lab: [address] [phone] Performing Lab: [facility] [address] [place] [phone] [facility] RENAL PANEL CARBON DIOXIDE, TOTAL [MOLES/VOLU ME] IN SERUM OR PLASMA 28 meq/L 22 - 31 11/28 Specimen Type: PLASMA Comment: No hemolysis noted. Ordering Provider: INOCENCIA TITUS Report Released Date/Time: Nov 27, 2024 07:13 PM Reporting Lab: [facility] [address] [place] [phone] Performing Lab: [facility] [address] [place] [phone] [facility] RENAL PANEL CALCIUM [MASS/VOLUM E] IN SERUM OR PLASMA 9.0 mg/dL 8.4 - 10.4 11/28 Specimen Type: PLASMA Comment: No hemolysis noted. Ordering Provider: INOCENCIA TITUS Report Released Date/Time: Nov 27, 2024 07:13 PM Reporting Lab: [address] [address] Performing Lab: [address] [address] [facility] RENAL PANEL PHOSPHATE [MASS/VOLUM E] IN SERUM OR PLASMA 2.8 mg/dL 2.3 - 4.7 11/28 Specimen Type: PLASMA Comment: No hemolysis noted. Ordering Provider: INOCENCIA TITUS Report Released Date/Time: Nov 27, 2024 07:13 PM Reporting Lab: [place] [address] [facility] [phone] Performing Lab: [address] [address] [facility] RENAL PANEL ALBUMIN [MASS/VOLUM E] IN SERUM OR PLASMA 3.6 g/dL 3.4 - 5 11/28 Specimen Type: PLASMA Comment: No hemolysis noted. Ordering Provider: INOCENCIA TITUS Report Released Date/Time: Nov 27, 2024 07:13 PM Reporting Lab: [address] [address] Performing Lab: [address] [address] [facility] RENAL PANEL GLOMERULAR FILTRATION RATE/1.73 SQ M.PREDICTED [VOLUME RATE/AREA] IN SERUM, PLASMA OR BLOOD BY CREATININE- BASED FORMULA (CKD-EPI 2020) 69.8 60 11/28 Specimen Type: PLASMA Comment: No hemolysis noted. Ordering Provider: INOCENCIA TITUS Report Released Date/Time: Nov 27, 2024 07:13 PM Reporting Lab: [place] [address] [place] [address] Performing Lab: [place] [address] [facility] [phone] [facility] CBC LEUKOCYTES [#/VOLUME] IN BLOOD BY AUTOMATED COUNT 9.5 10*3/u L 3.6 - 11.2 11/27 Specimen Type: BLOOD No comment entered. Ordering Provider: LIDIA SWANSON Report Released Date/Time: Nov 25, 2024 04:28 PM Reporting Lab: [place] [address] [facility] [phone] Performing Lab: [place] [address] [facility] [phone] [facility] CBC ERYTHROCYTE S [#/VOLUME] IN BLOOD BY AUTOMATED COUNT 4.19 10*6/u L 4.10 - 5.70 11/27 Specimen Type: BLOOD No comment entered. Ordering Provider: LIDIA SWANSON Report Released Date/Time: Nov 25, 2024 04:28 PM Reporting Lab: [place] [address] [facility] [phone] Performing Lab: [address] [address] [facility] CBC HEMOGLOBIN [MASS/VOLUM E] IN BLOOD 13.7 g/dL 13.1 - 16.8 11/27 Specimen Type: BLOOD No comment entered. Ordering Provider: LIDIA SWANSON Report Released Date/Time: Nov 25, 2024 04:28 PM Reporting Lab: [place] [address] [facility] [phone] Performing Lab: [address] [place] [address] [facility] CBC HEMATOCRIT [VOLUME FRACTION] OF BLOOD 42.3 38.2 - 48.4 11/27 Specimen Type: BLOOD No comment entered. Ordering Provider: LIDIA SWANSON Report Released Date/Time: Nov 25, 2024 04:28 PM Reporting Lab: [address] [address] Performing Lab: [address] [phone] [facility] CBC MCV [ENTITIC VOLUME] BY AUTOMATED COUNT 101.0 fL 80.0 - 100.0 11/27 H Specimen Type: BLOOD No comment entered. Ordering Provider: LIDIA SWANSON Report Released Date/Time: Nov 25, 2024 04:28 PM Reporting Lab: [address] [address] Performing Lab: [address] [phone] [facility] CBC MCH [ENTITIC MASS] BY AUTOMATED COUNT 32.7 pg 27.0 - 34.0 11/27 Specimen Type: BLOOD No comment entered. Ordering Provider: LIDIA SWANSON Report Released Date/Time: Nov 25, 2024 04:28 PM Reporting Lab: [address] [address] Performing Lab: [address] [address] [facility] CBC MCHC [MASS/VOLUM E] BY AUTOMATED COUNT 32.4 g/dL 33.0 - 36.0 11/27 L Specimen Type: BLOOD No comment entered. Ordering Provider: LIIDA SWANSON Report Released Date/Time: Nov 25, 2024 04:28 PM Reporting Lab: [place] [address] [facility] [phone] Performing Lab: [address] [address] [facility] CBC PLATELETS [#/VOLUME] IN BLOOD BY AUTOMATED COUNT 222 10*3/u L 150 - 400 11/27 Specimen Type: BLOOD No comment entered. Ordering Provider: LIDIA SWANSON Report Released Date/Time: Nov 25, 2024 04:28 PM Reporting Lab: [place] [address] [facility] [phone] Performing Lab: [address] [address] [facility] CBC PLATELET MEAN VOLUME [ENTITIC VOLUME] IN BLOOD BY AUTOMATED COUNT 10.6 fL 7.5 - 11.2 11/27 Specimen Type: BLOOD No comment entered. Ordering Provider: LIDIA SWANSON Report Released Date/Time: Nov 25, 2024 04:28 PM Reporting Lab: [address] [address] Performing Lab: [place] [address] [address] [facility] CBC ERYTHROCYTE DISTRIBUTIO N WIDTH [RATIO] BY AUTOMATED COUNT 14.1 11.8 - 15.1 11/27 Specimen Type: BLOOD No comment entered. Ordering Provider: LIDIA SWANSON Report Released Date/Time: Nov 25, 2024 04:28 PM Reporting Lab: [address] [address] Performing Lab: [address] [address] [facility] CBC LYMPHOCYTES /100 LEUKOCYTES IN BLOOD BY AUTOMATED COUNT 17 11/27 Specimen Type: BLOOD No comment entered. Ordering Provider: LIDIA SWANSON Report Released Date/Time: Nov 25, 2024 04:28 PM Reporting Lab: [address] [address] Performing Lab: [place] [address] [address] [facility] CBC MONOCYTES/1 00 LEUKOCYTES IN BLOOD BY AUTOMATED COUNT 9 11/27 Specimen Type: BLOOD No comment entered. Ordering Provider: LIDIA SWANSON Report Released Date/Time: Nov 25, 2024 04:28 PM Reporting Lab: [facility] [address] [address] Performing Lab: [facility] [address] [facility] [address] [facility] CBC NEUTROPHILS /100 LEUKOCYTES IN BLOOD BY AUTOMATED COUNT 72 11/27 Specimen Type: BLOOD No comment entered. Ordering Provider: LIDIA SWANSON Report Released Date/Time: Nov 25, 2024 04:28 PM Reporting Lab: [facility] [address] [address] Performing Lab: [place] [address] [address] [address] [facility] CBC EOSINOPHILS /100 LEUKOCYTES IN BLOOD BY AUTOMATED COUNT 2 11/27 Specimen Type: BLOOD No comment entered. Ordering Provider: LIDIA SWANSON Report Released Date/Time: Nov 25, 2024 04:28 PM Reporting Lab: [facility] [address] [address] Performing Lab: [facility] [address] [address] [facility] CBC BASOPHILS/1 00 LEUKOCYTES IN BLOOD BY AUTOMATED COUNT 1 11/27 Specimen Type: BLOOD No comment entered. Ordering Provider: LIDIA SWANSON Report Released Date/Time: Nov 25, 2024 04:28 PM Reporting Lab: [facility] [address] [address] Performing Lab: [place] [address] [phone] CBC LYMPHOCYTES [#/VOLUME] IN BLOOD BY AUTOMATED COUNT 1.61 10*3/u L 0.77 - 4.50 11/27 Specimen Type: BLOOD No comment entered. Ordering Provider: LIDIA SWANSON Report Released Date/Time: Nov 25, 2024 04:28 PM Reporting Lab: [place] [address] [address] Performing Lab: [address] [address] [facility] CBC MONOCYTES [#/VOLUME] IN BLOOD BY AUTOMATED COUNT 0.84 10*3/u L 0.19 - 0.80 11/27 H Specimen Type: BLOOD No comment entered. Ordering Provider: LIDIA SWANSON Report Released Date/Time: Nov 25, 2024 04:28 PM Reporting Lab: [place] [address] [address] Performing Lab: [address] [address] [facility] CBC NEUTROPHILS [#/VOLUME] IN BLOOD BY AUTOMATED COUNT 6.83 10*3/u L 2.10 - 8.00 11/27 Specimen Type: BLOOD No comment entered. Ordering Provider: LIDIA SWANSON Report Released Date/Time: Nov 25, 2024 04:28 PM Reporting Lab: [address] [address] Performing Lab: [place] [address] [address] [facility] CBC EOSINOPHILS [#/VOLUME] IN BLOOD BY AUTOMATED COUNT 0.16 10*3/u L 0.00 - 0.60 11/27 Specimen Type: BLOOD No comment entered. Ordering Provider: LIDIA SWANSON Report Released Date/Time: Nov 25, 2024 04:28 PM Reporting Lab: [place] [address] [address] Performing Lab: [address] [address] [facility] CBC BASOPHILS [#/VOLUME] IN BLOOD BY AUTOMATED COUNT 0.06 10*3/u L 0.00 - 0.20 11/27 Specimen Type: BLOOD No comment entered. Ordering Provider: LIDIA SWANSON Report Released Date/Time: Nov 25, 2024 04:28 PM Reporting Lab: [address] [address] Performing Lab: [address] [address] [facility] RENAL PANEL CREATININE [MASS/VOLUM E] IN SERUM OR PLASMA 1.20 mg/dL 0.7 - 1.3 11/27 Specimen Type: PLASMA Comment: No hemolysis noted. Ordering Provider: LIDIA SWANSON Report Released Date/Time: Nov 25, 2024 03:08 PM Reporting Lab: [address] [address] Performing Lab: [address] [phone] [place] [address] RENAL PANEL UREA NITROGEN [MASS/VOLUM E] IN SERUM OR PLASMA 15.1 mg/dL 9.0 - 25.0 11/27 Specimen Type: PLASMA Comment: No hemolysis noted. Ordering Provider: LIDIA SWANSON Report Released Date/Time: Nov 25, 2024 03:08 PM Reporting Lab: [address] [address] Performing Lab: [address] [address] [facility] RENAL PANEL GLUCOSE [MASS/VOLUM E] IN SERUM OR PLASMA 137 mg/dL 72 - 99 11/27 H Specimen Type: PLASMA Comment: No hemolysis noted. Ordering Provider: LIDIA SWANSON Report Released Date/Time: Nov 25, 2024 03:08 PM Reporting Lab: [address] [address] Performing Lab: [address] [address] [facility] RENAL PANEL SODIUM [MOLES/VOLU ME] IN SERUM OR PLASMA 140 meq/L 136 - 145 11/27 Specimen Type: PLASMA Comment: No hemolysis noted. Ordering Provider: LIDIA SWANSON Report Released Date/Time: Nov 25, 2024 03:08 PM Reporting Lab: [facility] [address] [place] [address] Performing Lab: [facility] [address] [place] [address] [facility] RENAL PANEL POTASSIUM [MOLES/VOLU ME] IN SERUM OR PLASMA 4.1 meq/L 3.5 - 5 11/27 Specimen Type: PLASMA Comment: No hemolysis noted. Ordering Provider: LIDIA SWANSON Report Released Date/Time: Nov 25, 2024 03:08 PM Reporting Lab: [address] [address] Performing Lab: [address] [address] [facility] RENAL PANEL CHLORIDE [MOLES/VOLU ME] IN SERUM OR PLASMA 106 meq/L 98 - 107 11/27 Specimen Type: PLASMA Comment: No hemolysis noted. Ordering Provider: LIDIA SWANSON Report Released Date/Time: Nov 25, 2024 03:08 PM Reporting Lab: [address] [address] Performing Lab: [address] [address] [facility] RENAL PANEL CARBON DIOXIDE, TOTAL [MOLES/VOLU ME] IN SERUM OR PLASMA 29 meq/L 22 - 31 11/27 Specimen Type: PLASMA Comment: No hemolysis noted. Ordering Provider: LIDIA SWANSON Report Released Date/Time: Nov 25, 2024 03:08 PM Reporting Lab: [address] [address] Performing Lab: [address] [address] [facility] RENAL PANEL CALCIUM [MASS/VOLUM E] IN SERUM OR PLASMA 8.9 mg/dL 8.4 - 10.4 11/27 Specimen Type: PLASMA Comment: No hemolysis noted. Ordering Provider: LIDIA SWANSON Report Released Date/Time: Nov 25, 2024 03:08 PM Reporting Lab: [facility] [address] [address] Performing Lab: [facility] [address] [facility] [address] [facility] RENAL PANEL PHOSPHATE [MASS/VOLUM E] IN SERUM OR PLASMA 2.3 mg/dL 2.3 - 4.7 11/27 Specimen Type: PLASMA Comment: No hemolysis noted. Ordering Provider: LIDIA SWANSON Report Released Date/Time: Nov 25, 2024 03:08 PM Reporting Lab: [place] [address] [address] Performing Lab: [place] [address] [address] [facility] RENAL PANEL ALBUMIN [MASS/VOLUM E] IN SERUM OR PLASMA 3.7 g/dL 3.4 - 5 11/27 Specimen Type: PLASMA Comment: No hemolysis noted. Ordering Provider: LIDIA SWANSON Report Released Date/Time: Nov 25, 2024 03:08 PM Reporting Lab: [place] [address] [address] Performing Lab: [place] [address] [address] [facility] RENAL PANEL GLOMERULAR FILTRATION RATE/1.73 SQ M.PREDICTED [VOLUME RATE/AREA] IN SERUM, PLASMA OR BLOOD BY CREATININE- BASED FORMULA (CKD-EPI 2020) 66.3 60 11/27 Specimen Type: PLASMA Comment: No hemolysis noted. Ordering Provider: LIDIA SWANSON Report Released Date/Time: Nov 25, 2024 03:08 PM Reporting Lab: [facility] [address] [address] Performing Lab: [facility] [address] [address] [facility] MAGNESIUM MAGNESIUM [MASS/VOLUM E] IN SERUM OR PLASMA 2.4 mg/dL 1.6 - 2.6 11/27 Specimen Type: PLASMA Comment: No hemolysis noted. Ordering Provider: LIDIA SWANSON Report Released Date/Time: Nov 26, 2024 09:37 AM Reporting Lab: [address] [address] Performing Lab: [address] [address] [facility] B12 COBALAMIN (VITAMIN B12) [MASS/VOLUM E] IN SERUM OR PLASMA 418 pg/mL 213 - 816 11/27 Specimen Type: SERUM No comment entered. Ordering Provider: LIDIA SWANSON Report Released Date/Time: Nov 26, 2024 08:37 PM Reporting Lab: [address] [address] Performing Lab: [address] [address] [facility] FOLATE ([facility]) FOLATE [MASS/VOLUM E] IN SERUM OR PLASMA 6.7 ng/mL 7 - 20 11/27 L Specimen Type: SERUM No comment entered. Ordering Provider: LIDIA SWANSON Report Released Date/Time: Nov 26, 2024 08:37 PM Reporting Lab: [address] [address] Performing Lab: [address] [address] [facility] BASIC METABOLIC PANEL CREATININE [MASS/VOLUM E] IN SERUM OR PLASMA 1.18 mg/dL 0.7 - 1.3 11/27 Specimen Type: PLASMA Comment: No hemolysis noted. Ordering Provider: ADINA HARDY Report Released Date/Time: Nov 27, 2024 05:33 AM Reporting Lab: [address] [address] Performing Lab: [address] [address] [facility] BASIC METABOLIC PANEL UREA NITROGEN [MASS/VOLUM E] IN SERUM OR PLASMA 13.7 mg/dL 9.0 - 25.0 11/27 Specimen Type: PLASMA Comment: No hemolysis noted. Ordering Provider: ADINA HARDY Report Released Date/Time: Nov 27, 2024 05:33 AM Reporting Lab: [facility] [address] [address] Performing Lab: [address] [address] [facility] BASIC METABOLIC PANEL GLUCOSE [MASS/VOLUM E] IN SERUM OR PLASMA 106 mg/dL 72 - 99 11/27 H Specimen Type: PLASMA Comment: No hemolysis noted. Ordering Provider: ADINA HARDY Report Released Date/Time: Nov 27, 2024 05:33 AM Reporting Lab: [address] [address] Performing Lab: [address] [address] [facility] BASIC METABOLIC PANEL SODIUM [MOLES/VOLU ME] IN SERUM OR PLASMA 141 meq/L 136 - 145 11/27 Specimen Type: PLASMA Comment: No hemolysis noted. Ordering Provider: ADINA HARDY Report Released Date/Time: Nov 27, 2024 05:33 AM Reporting Lab: [address] [address] Performing Lab: [address] [address] [facility] BASIC METABOLIC PANEL POTASSIUM [MOLES/VOLU ME] IN SERUM OR PLASMA 4.4 meq/L 3.5 - 5 11/27 Specimen Type: PLASMA Comment: No hemolysis noted. Ordering Provider: ADINA HARDY Report Released Date/Time: Nov 27, 2024 05:33 AM Reporting Lab: [address] [address] Performing Lab: [address] [address] [facility] BASIC METABOLIC PANEL CHLORIDE [MOLES/VOLU ME] IN SERUM OR PLASMA 104 meq/L 98 - 107 11/27 Specimen Type: PLASMA Comment: No hemolysis noted. Ordering Provider: ADINA HARDY Report Released Date/Time: Nov 27, 2024 05:33 AM Reporting Lab: [place] [address] [address] Performing Lab: [place] [address] [address] [facility] BASIC METABOLIC PANEL CARBON DIOXIDE, TOTAL [MOLES/VOLU ME] IN SERUM OR PLASMA 26 meq/L 22 - 31 11/27 Specimen Type: PLASMA Comment: No hemolysis noted. Ordering Provider: ADINA HARDY Report Released Date/Time: Nov 27, 2024 05:33 AM Reporting Lab: [place] [address] [address] Performing Lab: [place] [address] [address] [facility] BASIC METABOLIC PANEL CALCIUM [MASS/VOLUM E] IN SERUM OR PLASMA 8.6 mg/dL 8.4 - 10.4 11/27 Specimen Type: PLASMA Comment: No hemolysis noted. Ordering Provider: ADINA HARDY Report Released Date/Time: Nov 27, 2024 05:33 AM Reporting Lab: [place] [address] [address] Performing Lab: [place] [address] [address] [facility] BASIC METABOLIC PANEL GLOMERULAR FILTRATION RATE/1.73 SQ M.PREDICTED [VOLUME RATE/AREA] IN SERUM, PLASMA OR BLOOD BY CREATININE- BASED FORMULA (CKD-EPI 2020) 67.6 60 11/27 Specimen Type: PLASMA Comment: No hemolysis noted. Ordering Provider: ADINA HARDY Report Released Date/Time: Nov 27, 2024 05:33 AM Reporting Lab: [place] [address] [address] Performing Lab: [facility] [address] [address] [facility] MAGNESIUM MAGNESIUM [MASS/VOLUM E] IN SERUM OR PLASMA 2.8 mg/dL 1.6 - 2.6 11/27 H Specimen Type: PLASMA Comment: No hemolysis noted. Ordering Provider: ADINA HARDY Report Released Date/Time: Nov 27, 2024 05:33 AM Reporting Lab: [place] [id number] [facility] [address] Performing Lab: [address] [address] [facility] PHOSPHOROU S PHOSPHATE [MASS/VOLUM E] IN SERUM OR PLASMA 4.1 mg/dL 2.3 - 4.7 11/27 Specimen Type: PLASMA Comment: No hemolysis noted. Ordering Provider: ADINA HARDY Report Released Date/Time: Nov 27, 2024 05:38 AM Reporting Lab: [place] [id number] [facility] [address] Performing Lab: [address] [phone] [place] [address] Vital Signs Combined list of inpatient and outpatient Vital Signs from Department of Defense and Veterans Affairs, ranging from 12 months to all on record, depending upon the facility. Vital Sign Value Date Comments Source SYSTOLIC BLOOD PRESSURE 123 11/28/2024 04:33:34 [facility] DIASTOLIC BLOOD PRESSURE 73 11/28/2024 04:33:34 [facility] PULSE OXIMETRY 93 % 11/28/2024 04:33:[address] [facility] PAIN 0 11/28/2024 04:33:34 [facility] TEMPERATURE 97.6 11/28/2024 04:33:34 [facility] PULSE 76 11/28/2024 04:33:34 [facility] RESPIRATION 18 11/28/2024 04:33:34 [facility] PAIN 0 11/27/2024 00:23:00 [facility] SYSTOLIC BLOOD PRESSURE 124 11/26/2024 01:32:36 [facility] DIASTOLIC BLOOD PRESSURE 67 11/26/2024 01:32:36 [facility] PULSE OXIMETRY 95 % 11/26/2024 01:32:36 [facility] PAIN 0 11/26/2024 01:32:36 [facility] TEMPERATURE 97 11/26/2024 01:32:36 [facility] PULSE 56 11/26/2024 01:32:36 [facility] RESPIRATION 18 11/26/2024 01:32:36 [facility] SYSTOLIC BLOOD PRESSURE 104 11/25/2024 14:50:04 [facility] DIASTOLIC BLOOD PRESSURE 70 11/25/2024 14:50:04 [facility] PULSE OXIMETRY 95 % 11/25/2024 14:50:04 [facility] TEMPERATURE 97.4 11/25/2024 14:50:04 [facility] PULSE 64 11/25/2024 14:50:04 [facility] RESPIRATION 16 11/25/2024 14:50:04 [facility] SYSTOLIC BLOOD PRESSURE 118 09/17/2024 13:59:41 [facility] DIASTOLIC BLOOD PRESSURE 75 09/17/2024 13:59:41 [facility] PULSE OXIMETRY 95 09/17/2024 13:59:41 [facility] WEIGHT 263.9 09/17/2024 13:59:41 [facility] BMI 33 kg/m2 09/17/2024 13:59:41 [facility] PAIN 0 09/17/2024 13:59:41 [facility] TEMPERATURE 97.5 09/17/2024 13:59:41 [facility] PULSE 81 09/17/2024 13:59:41 [facility] RESPIRATION 20 09/17/2024 13:59:41 [facility] Encounters Combined list of: 1) Encounters from Department of [facility] Affairs facilities going backup to the last 18 months, not all [place] inpatient encounters are included; 2) Encounters from the Department of Defense facilities going backup to 280 months. Location Location Details Encounter Type Encounter Number Reason For Visit Attending Provider ADM Date DC Date Status Disposition Source [facility] Outpatient Encounter [id number] 08/29 [facility] OFFICE O/P EST MOD 30 MIN [id number] Diagnos is: ICD-10- CM J44.9 Chronic obstruc tive pulmona ry disease , unspeci fied Ellis LUTHER NDRDANA 08/29 [facility] Outpatient Encounter [id number] 09/01 [facility] Outpatient Encounter [id number] 09/04 [facility] OFFICE O/P EST MOD 30 MIN [id number] Diagnos is: ICD-10- CM Z72.0 Tobacco use HUA SUTHERLAND 09/09 [facility] Outpatient Encounter [id number] 09/09 [facility] Outpatient Encounter [id number] YANNA HILLMAN 09/10 [facility] Outpatient Encounter [id number] OVERTURF,Winter ESSE A 09/10 [facility] Outpatient Encounter 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 Bessie GARCIA 09/17 [facility] CPTR OPHTH DX IMG POST SEGMT [id number] Diagnos is: ICD-10- CM H34.211 Partial retinal artery occlusi on, right eye LYNN WOODRUFF TTHEW C 09/17 [facility] OFFICE O/P EST MOD 30 MIN [id number] Diagnos is: ICD-10- CM R06.00 Dyspnea , unspeci fied OU,JIAFU 10/09 [facility] OFFICE O/P EST MOD 30 MIN [id number] Diagnos is: ICD-10- CM H34.211 Partial retinal artery occlusi on, right eye ABHINAV DUQUE 10/21 [facility] FUNDUS PHOTOGRAPH Y W/I&R [id number] Diagnos is: ICD-10- CM H35.9 Unspeci fied retinal disorde r JAMAR SMITH 10/[address] [facility] OFF/OP CNSLTJ NEW/EST LOW 30 [id number] Diagnos is: ICD-10- CM Z86.010 Isis covarrubias history of colonic polyps Emely BRANDT 10/23 [facility] Outpatient Encounter [id number] 11/07 [facility] Outpatient Encounter [id number] 11/08 [facility] OFFICE O/P EST LOW 20 MIN [id number] Diagnos is: ICD-10- CM F17.210 Nicotin e depende nce, cigaret shara, uncompl icated HUA SUTHERLAND A 11/11 [facility] Outpatient Encounter [id number] 11/12 [facility] Outpatient Encounter [id number] 11/13 [facility] ACUPUNCT W/O STIMUL 15 MIN [id number] Diagnos is: ICD-10- CM F17.200 Nicotin e depende nce, unspeci fied, uncompl icated MYRTLE KAY 11/20 [facility] [id number] Diagnos is: ICD-10- CM Z71.89 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 RENETTA Kelly 12/11 [facility] Outpatient Encounter [id number] 12/16 [facility] OFFICE O/P EST MOD 30 MIN [id number] Diagnos is: ICD-10- CM I63.9 Cerebra l infarct ion, unspeci fied OU,JIAFU 12/18 [facility] Outpatient Encounter [id number] 12/19 [facility] Outpatient Encounter [id number] ELSI SCOTT 12/22 [facility] Outpatient Encounter [id number] ELSI SCOTT 12/22 [facility] ACUPUNCT W/O STIMUL 15 MIN [id number] Diagnos is: ICD-10- CM Z72.0 Tobacco use MYRTLE KAY 12/25 [facility] Outpatient Encounter [id number] 12/30 [facility] ACUPUNCT W/O STIMUL 15 MIN [id number] Diagnos is: ICD-10- CM Z72.0 Tobacco use MYRTLE KAY 01/01 [facility] MYOCRD STRAIN IMG SPCKL TRCK [id number] Diagnos is: ICD-10- CM 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 OU,JIAFU 01/02 [facility] Outpatient Encounter [id number] MYRTLE KAY 01/08 [facility] Outpatient Encounter [id number] 01/20 [facility] Outpatient Encounter [id number] 01/20 [facility] OFFICE O/P EST LOW 20 MIN [id number] Diagnos is: ICD-10- CM Z01.818 Encount er for other preproc edural examina tion KENRICK TOVAR IN A 01/21 [facility] Outpatient Encounter [id number] 01/21 [facility] OFFICE O/P EST SF 10 MIN [id number] Diagnos is: ICD-10- CM K63.5 Polyp of colon LYNN LEROY TTHEW H 01/21 [facility] Outpatient Encounter [id number] KEDAR FONTAINE K 01/21 [facility] Encounter [id number] ARNOLD MTZ S 01/22 [facility] Outpatient Encounter [id number] 01/23 [facility] Outpatient Encounter [id number] 02/12 [facility] Outpatient Encounter [id number] 03/03 [facility] Outpatient Encounter [id number] Diagnos is: ICD-10- CM J44.9 Chronic obstruc tive pulmona ry disease , unspeci fied OU,JIAFU 03/19 [facility] Outpatient Encounter [id number] Diagnos is: ICD-10- CM I63.9 Cerebra l infarct ion, unspeci fied RIZWANA CLOUD C 03/20 [facility] Outpatient Encounter [id number] 3 OVERTURF,J ESSE A 03/30 [facility] Outpatient Encounter [id number] 04/08 [facility] OFFICE O/P EST MOD 30 MIN [id number] Diagnos is: ICD-10- CM J44.9 Chronic obstruc tive pulmona ry disease , unspeci fied Bessie GARCIA 04/[address] [facility] Outpatient Encounter [id number] 04/10 [facility] Outpatient Encounter [id number] Diagnos is: ICD-10- CM I63.9 Cerebra l infarct ion, unspeci fied RIZWANA CLOUD JACK Melton 04/16 [facility] Outpatient Encounter [id number] Bessie GARCIA HERE 04/16 [facility] Outpatient Encounter [id number] 04/16 [facility] Outpatient Encounter [id number] 05/11 [facility] REM INTERROG DEV EVAL SCRMS [id number] Diagnos is: ICD-10- CM G46.4 Cerebel lar stroke syndrom e RIZWANA CLOUD JACK Melton 05/11 [facility] Outpatient Encounter [id number] 05/13 [facility] Outpatient Encounter [id number] 05/14 [facility] Outpatient Encounter [id number] 05/18 [facility] Outpatient Encounter [id number] Bessie GARCIA HERE 05/19 [facility] Outpatient Encounter [id number] 05/19 [facility] OFFICE O/P EST MOD 30 MIN [id number] Diagnos is: ICD-10- CM I48.0 Paroxys mal atrial fibrill ation MCBessie VELÁSQUEZ 05/20 [facility] QNHP OL DIG ASSMT&MGMT 5-10 [id number] [id number] Diagnos is: ICD-10- CM I48.91 Unspeci fied atrial fibrill ation ROSEANNE VIZCARRA 05/20 [facility] Outpatient Encounter [id number] 05/20 [facility] Outpatient Encounter [id number] [id number] 5 Diagnos is: ICD-10- CM I48.0 Paroxys mal atrial fibrill ation JACOBO TELLO 05/21 [facility] Outpatient Encounter [id number] 05/21 [facility] Outpatient Encounter [id number] [id number] 4 Diagnos is: ICD-10- CM G46.4 Cerebel lar stroke syndrom e CINDY SMILEY 05/22 [facility] Outpatient Encounter [id number] [id number] ZULEMA MORRISON ANY N 05/22 [facility] Outpatient Encounter [id number] [id number] 05/25 [facility] Outpatient Encounter [id number] [id number] 05/25 [facility] Outpatient Encounter [id number] [id number] 06/05 [facility] Outpatient Encounter [id number] [id number] 1 ZULEMA MORRISON ANY N 06/05 [facility] Outpatient Encounter [id number] [id number] 06/09 [facility] MTMS BY PHARM CREW TRAINER 15 MIN 58479-3.65 [id number] Diagnos is: ICD-10- CM Z51.81 Encount er for therape utic drug level monitor ROSEANNE Boswell M 06/[address] [facility] Outpatient Encounter [id number] [id number] 5 ZULEMA MORRISON N 06/15 [facility] MTMS BY PHARM EST 15 MIN [id number] [id number] Diagnos is: ICD-10- CM Z51.81 Encount er for therape utic drug level monitor ROSEANNE Boswell M 07/06 [facility] Outpatient Encounter [id number] [id number] 07/30 [facility] Outpatient Encounter [id number] [id number] 4 07/30 [facility] REM INTERROG DEV EVAL SCRMS 51319-3.65 [id number] 7 Diagnos is: ICD-10- CM G46.4 Cerebel lar stroke syndrom e RIZWANA CLOUD 07/31 [facility] Outpatient Encounter [id number] [id number] Bessie GARCIA 07/31 [facility] Outpatient Encounter [id number] [id number] 08/03 [facility] Outpatient Encounter 79541-4.65 [id number] 9 Diagnos is: ICD-10- CM I48.0 Paroxys mal atrial fibrill ation OUJACOBO 08/03 [facility] Outpatient Encounter [id number] [id number] 08/05 [facility] Outpatient Encounter [id number] [id number] 08/07 [facility] Outpatient Encounter [id number] [id number] 08/07 [facility] OFFICE O/P EST MOD 30 MIN [id number] [id number] Diagnos is: ICD-10- CM J44.1 Chronic obstruc tive pulmona ry disease w (acute) exacerb ation eBssie GARCIA 08/07 [facility] MTMS BY PHARM EST 15 MIN [id number] [id number] Diagnos is: ICD-10- CM Z51.81 Encount er for therape utic drug level monitor ROSEANNE Boswell 08/[address] [facility] Outpatient Encounter [id number] [id number] 2 Bessie GARCIA 08/12 [facility] Outpatient Encounter [id number] [id number] 1 08/28 [facility] OFFICE O/P EST MOD 30 MIN [id number] [id number] 1 Diagnos is: ICD-10- CM R06.00 Dyspnea , unspeci fiMAGO Yan T 08/28 [facility] Outpatient Encounter [id number] [id number] 09/01 [facility] Outpatient Encounter [id number] [id number] 4 09/02 [facility] N [facility] Outpatient Encounter [id number] [id number] 9 ZULEMA MORRISON ANY N 09/04 [facility] N [facility] SPACER WITHOUT MASK [id number] [id number] 9 Diagnos is: ICD-10- CM J44.9 Chronic obstruc tive pulmona ry disease , unspeci fied MARCELOMAGO GORE DT T 09/16 [facility] OFFICE O/P EST MOD 30 MIN [id number] [id number] Diagnos is: ICD-10- CM I48.0 Paroxys mal atrial fibrill ation URIEL SHEPHERD D 09/17 [facility] Outpatient Encounter [id number] [id number] 09/21 [facility] SYNCH AUDIO-ONLY NEW HIGH 60 40635-9.65 [id number] 9 Diagnos is: ICD-10- CM I48.0 Paroxys mal atrial fibrill ation RIZWANA CLOUD C 09/21 [facility] N [facility] Outpatient Encounter [id number] [id number] 5 09/22 [facility] N [facility] Outpatient Encounter [id number] [id number] 7 09/22 [facility] Outpatient Encounter [id number] [id number] 4 09/22 [facility] PH1 ASSMT&MGMT NQHP 5-10 [id number] [id number] 5 Diagnos is: ICD-10- CM Z02.9 Encount er for adminis trative examina tions, unspeci Geronimo Dunn 09/23 [facility] PH1 ASSMT&MGMT NQHP 21-30 [id number] [id number] 7 Diagnos is: ICD-10- CM I25.10 Athscl heart disease of [place] coronar y artery w/o ang pctrs DUNCAN IRIZARRY 09/23 [facility] Outpatient Encounter [id number] [id number] 09/29 [facility] Outpatient Encounter 39625-6.65 [id number] 5 Bessie GARCIA 10/06 [facility] Outpatient Encounter 45946-2.65 [id number] 10/20 [facility] OFF/OP CONSLTJ NEW/EST HI 55 17447-7.65 [id number] Diagnos is: ICD-10- CM I48.19 Other persist ent atrial fibrill ation RIZWANA CLOUD 10/20 [facility] ASSMT&MGMT NQHP -30 [id number] [id number] 3 Diagnos is: ICD-10- CM I48.0 Paroxys mal atrial fibrill ation ARTEMIO BARNETT 10/23 [facility] PH1 ASSMT&MGMT NQHP 21-30 53763-3.65 [id number] 7 Diagnos is: ICD-10- CM I48.0 Paroxys mal atrial fibrill ation Winter ERICKSON 11/02 [facility] PLACE NEEDLE IN VEIN 92855-2.27 [id number] 8 Diagnos is: ICD-10- CM I48.19 Other persist ent atrial fibrill ation ABBY PETTY 11/06 [facility] N [facility] SYNCH AUDIO-ONLY EST MOD 30 [id number] [id number] 3 Diagnos is: ICD-10- CM I48.19 Other persist ent atrial fibrill ation RIZWANA CLOUD C 11/09 [facility] Outpatient Encounter [id number] [id number] 8 11/20 [facility] PH1 ASSMT&MGMT NQHP 11-20 60454-5.65 [id number] 2 Diagnos is: ICD-10- CM G46.4 Cerebel lar stroke syndrom e Winter ERICKSON 11/20 [facility] Restoratio n of Cardiac Rhythm, Single 02386-4.65 [id number] Admit Reason: ATRIAL FIBRILA TION MARIBEL ESTES 11/25 [facility] Inpatient Encounter [id number] [id number] 2 11/25 [facility] Inpatient Encounter [id number] [id number] 2 Diagnos is: ICD-10- CM I48.91 Unspeci fied atrial fibrill ation JOSE DUPONT 11/25 [facility] Inpatient Encounter 60764-7.65 [id number] 1 KIRSTEN DAN 11/25 [facility] Inpatient Encounter [id number] [id number] 2 BAKARI GRANADOS D 11/25 [facility] Inpatient Encounter [id number] [id number] 7 BAKARI GRANADOS HARD D 11/25 [facility] Inpatient Encounter [id number] [id number] 3 BAKARI GRANADOS HARD D 11/25 [facility] Inpatient Encounter [id number] [id number] 1 EDWARDO JIMENEZ M 11/25 [facility] Inpatient Encounter [id number] [id number] 0 EDWARDO JIMENEZ M 11/25 [facility] Inpatient Encounter 09806-7.65 [id number] 8 EDWARDO JIMENEZ NA M 11/25 [facility] Inpatient Encounter [id number] [id number] 6 EDWARDO JIMENEZ NA M 11/26 [facility] IP/OBS CNSLTJ NEW/EST MOD 60 [id number] [id number] 2 Diagnos is: ICD-10- CM I48.0 Paroxys mal atrial fibrill JOSE García 11/26 [facility] Inpatient Encounter [id number] [id number] 1 EDWARDO JIMENEZ 11/26 [facility] Inpatient Encounter 84216-7.65 [id number] 7 NULL,ANDREA FERNANDEZ N 11/26 [facility] N [facility] Inpatient Encounter 75901-5.65 [id number] 8 NULL,ANDREA FERNANDEZ N 11/26 [facility] Inpatient Encounter 36102-3.65 [id number] 1 NULL,ANDREA FERNANDEZ N 11/26 [facility] NQHP OL DIG ASSMT&MGMT 5-10 08463-0.65 [id number] 0 Diagnos is: ICD-10- CM I48.0 Paroxys mal atrial fibrill ation LEFTY MAYA 11/26 [facility] MTMS BY PHARM ADDL 15 MIN [id number] [id number] 9 Diagnos is: ICD-10- CM Z51.81 Encount er for therape utic drug level monitor LEFTY Garrett 11/26 [facility] Inpatient Encounter 44512-6.65 [id number] 5 11/26 [facility] Inpatient Encounter 37341-7.65 [id number] 7 NULL,ANDREA Diamond 11/26 [facility] Inpatient Encounter 47033-4.65 [id number] 3 JOHANNY SY 11/26 [facility] Inpatient Encounter [id number] [id number] 5 JOHANNY SY 11/26 [facility] Inpatient Encounter 53512-0.65 [id number] 9 BARBARAEDWARDO STAPLETON M 11[facility]26 [facility] Inpatient Encounter [id number] [id number] 6 BARBARAEDWARDO STAPLETON M 11/27 [facility] Inpatient Encounter [id number] [id number] 6 BARBARAEDWARDO STAPLETON M 11/27 [facility] Inpatient Encounter 99207-7.65 [id number] 3 BARBARAEDWARDO STAPLETON M 11/27 [facility] N [facility] Inpatient Encounter 03620-9.65 [id number] 3 NULL,ANDREA JIM N 11/27 [facility] En[facility] [id number] [id number] 9 NULL,ANDREA LLE N 11/27 [facility] N [facility] Inpatient Encounter 98460-2.65 [id number] 0 NULL,ANDREA LLE N 11/27 [facility] S[facility] HOSP IP/OBS MODERATE 35 63957-4.65 [id number] 2 Diagnos is: ICD-10- CM I48.0 Paroxys mal atrial fibrill atJOSE Cardenas 11/27 [facility] Inpatient Encounter [id number] [id number] 0 11/27 [facility] N [facility] Inpatient Encounter [id number] [id number] 5 11/27 [facility] OFFICE O/P EST MOD 30 MIN 73760-3.65 [id number] 8 Diagnos is: ICD-10- CM Z01.818 Encount er for other preproc edural examina MEGAN Cedillo 11/27 [facility] PT EDUCATION NOC INDIVID 17034-7.65 [id number] 8 Diagnos is: ICD-10- CM I48.3 Typical atrial flutter JACOBO TELLO 11/27 [facility] Inpatient Encounter [id number] [id number] 6 SHAYE FISHER 11/27 [facility] Inpatient Encounter 70053-2.65 [id number] 2 ANA PAULA AMATO 11/27 [facility] 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 74349-3.65 [id number] 4 Diagnos is: ICD-10- CM Z71.81 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 AVINASH Navarro 11/27 [facility] Inpatient Encounter 69445-5.65 [id number] 8 11/27 [facility] N [facility] Inpatient Encounter [id number] [id number] 8 ANTWAN TERRA Jaffe 11/27 [facility] N [facility] Inpatient Encounter 52904-8.65 [id number] 3 MONCADATERRA 11/28 [facility] N [facility] Inpatient Encounter 29580-7.65 [id number] 1 TERRA MONCADA 11/28 [facility] Inpatient Encounter 20537-1.65 [id number] 2 TERRA MONCADA 11/28 [facility] Inpatient Encounter 22327-9.65 [id number] 3 ALFRED OSORIO 11/28 [facility] Inpatient Encounter 32934-7.65 [id number] 8 FRANCIS RICKETTS 11/28 [facility] Inpatient Encounter 69245-0.65 [id number] 5 11/28 [facility] SBSQ HOSP IP/OBS MODERATE 35 [id number] [id number] 9 Diagnos is: ICD-10- CM I48.0 Paroxys mal atrial fibrill URIEL Velasquez 11/28 [facility] Inpatient Encounter 76042-2.65 [id number] 2 ALFRED OSORIO A 11/28 [facility] Inpatient Encounter [id number] [id number] 8 ALFRED OSORIO A 11/28 [facility] In[facility] Encounter 79640-3.65 [id number] 9 FRANCIS RICKETTS N 11/28 [facility] In[facility] Encounter [id number] [id number] 0 ALFRED OSORIO A 11/28 [facility] In[facility] Encounter [id number] [id number] 1 ALFRED OSORIO A 11/28 [facility] Encounter [id number] [id number] 8 11/30 [facility] Outpatient Encounter [id number] [id number] 9 11/30 [facility] Outpatient Encounter 51574-9.65 [id number] 7 11/30 [facility] Outpatient Encounter [id number] [id number] 6 11/30 [facility] OFF/OP EST MAY X REQ PHY/QHP 41967-4.65 [id number] Diagnos is: ICD-10- CM I48.0 Paroxys mal atrial fibrill ation MIKE MERCADO A 12/[address] [facility] Outpatient Encounter [id number] [id number] 6 12/03 [facility] Outpatient Encounter [id number] [id number] 2 12/06 [facility] SYNCH AUDIO-ONLY EST HIGH 40 60871-9.65 [id number] 3 Diagnos is: ICD-10- CM I48.0 Paroxys mal atrial fibrill ation RIZWANA CLOUD JACK Melton 12/07 [facility] PH1 ASSMT&MGMT NQHP 21-30 [id number] [id number] 8 Diagnos is: ICD-10- CM I48.0 Paroxys mal atrial fibrill ation AYUSH,ER IN K 12/07 [facility] Outpatient Encounter [id number] [id number] 12/09 [facility] REM INTERROG DEV EVAL SCRMS 33041-4.65 [id number] 9 Diagnos is: ICD-10- CM I48.0 Paroxys mal atrial fibrill ation RIZWANA CLOUD JACK C 12/09 [facility] PH1 ASSMT&MGMT NQHP 5-10 [id number] [id number] 0 Diagnos is: ICD-10- CM I48.0 Paroxys mal atrial fibrill ation Winter ERICKSON 12/14 [facility] PH1 ASSMT&MGMT NQHP 21-30 [id number] [id number] 4 Diagnos is: ICD-10- CM G46.4 Cerebel lar stroke syndrom e GEORGINA,J SHITAL Han 12/16 [facility] [id number] [id number] 12/17 [facility] REM INTERROG DEV EVAL SCRMS 23510-6.65 [id number] 1 Diagnos is: ICD-10- CM G46.4 Cerebel lar stroke syndrom e RIZWANA CLOUD JACK Melton 12/17 [facility] Outpatient Encounter [id number] [id number] 3 Bessie GARCIA 12/18 [facility] Outpatient Encounter [id number] [id number] 12/29 [facility] Outpatient Encounter [id number] [id number] 4 12/29 [facility] Outpatient Encounter [id number] [id number] 8 12/29 [facility] SYNCH AUDIO-ONLY NEW 15 [id number] [id number] 2 Diagnos is: ICD-10- CM R11.2 Nausea with vomitin g, unspeci Geronimo Stockton ONSTANCE D 12/29 [facility] Social History Combined list of available smoking, tobacco, and other social history from Department of Defense and [facility] facilities. Social History Type Response Date Comment Sourc e Tobacco smoking status NHIS [place]-TOBACCO USE EVERY DAY CIGARETTES 04/08/2024 [facility] History of tobacco use [place]-TOBACCO NEVER USED OTHER TYPE 04/08/2024 [facility] History of tobacco use VA-TOBACCO USER EVERY DAY 02/15/2023 [facility] History of tobacco use VA-TOBACCO USER EVERY DAY 02/19/2022 [facility] History of tobacco use VA-TOBACCO FORMER USER 10/11/2020 [facility] History of tobacco use QUIT TOBACCO IN THE LAST 12 MONTHS 02/14/2017 [facility] History of tobacco use YAKELIN TOBACCO MEDS INTERESTED 09/05/2015 [facility] History of tobacco use YAKELIN TOBACCO MEDS INTERESTED 08/24/2014 [facility] History of tobacco use YAKELIN TOBACCO MEDS INTERESTED 08/05/2013 [facility] Plan of Care List of future care activities from Department of [facility] facilities. Additional future care activities may be listed in the Assessment and Plan section. Date/Time Care Activity Care Activity Detail Chanelli ty 12/29/2024 AMBULATORY - NONE AMBULATORY - NONE [facility]
[2024-12-29 20:59] LABS: Hematocrit 46.0 % (42.0-52.0); Hemoglobin 14.7 g/dL (14.0-18.0); Immature Granulocyte Percent A 0.2 % (0-0.5); Lymphocytes Absolute Auto 1.68 K/mm3 (0.9-3.2); Mean Corpuscular HGB Conc 32.0 g/dl (32-36); Mean Corpuscular Hemoglobin 32.0 pg (26-34); Mean Corpuscular Volume 100.2 fl (80-100); Nucleated Red Blood Cells Absolute Auto 0.000 K/mm3 (0.0-0.012); Nucleated Red Blood Cells Perc 0.0 % (0.0-0.2); Platelet Count Result 231 k/mm3 (150-375); Red Blood Count 4.59 M/mm3 (4.6-6.20); White Blood Count 9.2 K/mm3 (4.5-10.0)
[2024-12-29 21:11] LABS: INR 1.2; Prothrombin Time 14.9 Seconds (11.1-14.7)
[2024-12-29 21:21] LABS: Alanine Aminotransferase 18 U/L (6-50); Albumin Level 4.3 g/dL (3.5-5.1); Alkaline Phosphatase 104 U/L (38-126); Anion Gap 9 mmol/L (4-12); Aspartate Amino Transferase 22 U/L (17-59); Bilirubin,Total 0.7 mg/dL (0.2-1.3); Blood Urea Nitrogen 20 mg/dL (9-20); Calcium 9.7 mg/dL (8.4-10.2); Carbon Dioxide 26 mmol/L (22-30); Chloride 102 mmol/L (98-107); Estimated CRCL calculation 65 ml/min; Estimated Glomerular Filt Rate 53; Glucose 119 mg/dL (65-110); Lipase 102 U/L (23-300); Potassium 3.6 mmol/L (3.4-5.0); Sodium 137 mmol/L (137-145); Total Protein 7.9 g/dL (6.3-8.2)
[2024-12-29 22:12] VITALS: BP 114/72; PULSE 80; RESP 16; O2SAT 92
[2024-12-29 23:05] VITALS: BP 132/77; PULSE 87; RESP 18; TEMP 36.6; O2SAT 99
== END 2024-12-29 23:06 | disposition home or self-care (01) ==
PROVIDERS: Emergency Provider Family Medicine; PCP Family Medicine
DX: R11.2 Nausea with vomiting, unspecified (principal); I70.1 Atherosclerosis of renal artery; I70.8 Atherosclerosis of other arteries; I48.0 Paroxysmal atrial fibrillation; I10 Essential (primary) hypertension; J44.9 Chronic obstructive pulmonary disease, unspecified; E78.5 Hyperlipidemia, unspecified; K44.9 Diaphragmatic hernia without obstruction or gangrene; M19.90 Unspecified osteoarthritis, unspecified site; F17.210 Nicotine dependence, cigarettes, uncomplicated; F17.290 Nicotine dependence, other tobacco product, uncomplicated; Z96.641 Presence of right artificial hip joint; Z85.118 Personal history of other malignant neoplasm of bronchus and lung; Z86.0100 Personal history of colon polyps, unspecified; Z90.2 Acquired absence of lung [part of]; Z90.49 Acquired absence of other specified parts of digestive tract; Z79.01 Long term (current) use of anticoagulants; Z79.899 Other long term (current) drug therapy
CPT/HCPCS: 36415; 74174; 80053; 83690; 85025; 85610; 96361; 96374; 96375; 99284; J2405; J2470; J7030; Q9967

== ENCOUNTER 2025-03-02 00:36 | Emergency (ER) | payer OTHER, SELFPAY ==
--- NOTE | ~2025-03-02 | CT_ITS ---
EXAMINATION: CT abdomen pelvis w con DATE: 03/02/2025 01:45 INDICATION: Nausea, vomiting, and diarrhea. TECHNIQUE: Computed tomography (CT) of the abdomen and pelvis was performed with 100 mL Omnipaque 350 intravenous contrast. Automated exposure control and iterative reconstruction technique were employed. The dose-length product was 1377.42 mGy-cm. COMPARISON: CT abdomen and pelvis 12/29/2024, 10/13/2020 FINDINGS: The visualized portions of the lung bases demonstrate mild atelectasis. There is a small right pleural effusion. There is pleural thickening on the left. There are calcified pleural plaques bilaterally, which may be seen with asbestos exposure. Cardiomegaly is noted. There are coronary artery calcifications. No pericardial effusion. The liver is normal. There are changes of cholecystectomy. Calcifications in the spleen are consistent with old granulomatous disease. The pancreas and right adrenal gland are normal. There is a 10 mm mass in left adrenal gland, stable from 10/13/2020, likely an adenoma. There are cysts in the kidneys measuring up to 2.8 cm on the right. There are bilateral inguinal hernias containing fat. There is diverticulosis of the colon without evidence of diverticulitis. The appendix is not visualized. There are no pathologically enlarged lymph nodes. There is no free intraperitoneal fluid. There is an umbilical hernia containing fat. There is a total right hip arthro plasty. There is mild thoracic and lumbar spondylosis. IMPRESSION: 1. Bilateral inguinal hernias containing fat. 2. Umbilical hernia containing fat. 3. Small right pleural effusion. Reviewed, dictated and finalized at location E.
[2025-03-02 00:40] VITALS: BP 191/99; PULSE 92; RESP 20; TEMP 36.4; O2SAT 97
--- NOTE | 2025-03-02 01:05 | ED.NAVMDI ---
HPI - Nausea/Vomiting/Diarrhea General Chief complaint: Nausea/Vomiting/Diarrhea Stated complaint: vomiting and diarrhea Time Seen by Provider: 03/02/25 00:39 History of Present Illness HPI Narrative: 69-year-old male with a history of paroxysmal AFib status post ablation, history of COPD and HTN. Patient presents to the emergency department today with nausea vomiting diarrhea. Patient states he woke up not feeling well and felt nauseous and had multiple episodes of nonbilious nonbloody vomiting. He then started having voluminous watery diarrhea. No discoloration or bleeding. No black tarry stools. After multiple episodes of this he started getting belly discomfort in his lower abdominal region left-sided. Was otherwise in his normal state of health. Tried taking his nausea medications and his cardiac medications at home for his blood pressure but threw them up. Did not take any of his meds today and has not had any eat or drink. Denies any sick contacts. at bedside has no similar symptoms and does not think it is food poisoning. He was otherwise in his normal state of health. No recent changes to his medication or diet. Related Data Home Medications ?Medication ?Instructions ?Recorded ?Confirmed ?Last Taken ?Type lisinopril 20 mg tablet 20 mg PO DAILY 03/11/20 12/29/24 12/29/24 History rosuvastatin 20 mg tablet 20 mg PO DAILY 03/11/20 12/29/24 12/29/24 History sildenafil 100 mg tablet (Viagra) 100 mg PO DAILY PRN Erectile 04/18/21 12/29/24 07/25/24 History Dysfunction umeclidinium 62.5 mcg-vilanterol 1 inh inhalation DIRECTED 04/25/21 12/29/24 12/29/24 History 25 mcg/actuation powdr for inhalation (Anoro Ellipta) apixaban 5 mg tablet 5 mg PO BID 07/30/24 12/29/24 12/28/24 History albuterol sulfate 90 mcg/actuation inhalation shortness of breath 12/29/24 12/29/24 12:00 History aerosol inhaler dofetilide 250 mcg capsule 250 mcg PO BID 12/29/24 12/29/24 12/29/24 History Allergies Allergy/AdvReac Type Severity Reaction Status Date / Time No Known Allergies Allergy Unknown Unknown Verified 03/02/25 00:48 Review of Systems Review of Systems: As reviewed above in [facility] Past Medical History Medical History Colon polyp Hyperlipidemia Tobacco use Cerebrovascular accident (2013) Mild memory issues. Arthritis Non-small cell lung cancer Paroxysmal atrial fibrillation Chronic obstructive pulmonary disease Hiatal hernia Hypertension Surgical History Surgical History History of tonsillectomy History of arthroscopy of both knees History of total right hip arthroplasty History of cholecystectomy History of appendectomy History of lobectomy of lung (2020) Right middle lobectomy for treatment of cancer. History of colonoscopy with polypectomy Family History Family History Other Cerebrovascular accident HLD (hyperlipidemia) Heart disease Hypertension Kidney disorder Leukemia Lung cancer Social History Social History Social History: Surrogate medical decision maker: Es Stewart, spouse. Code status: Full code. Smoking packs per day: 0.5 Smoking cigarettes per day: 10.0 Years smoked: 50 Smoking pack-years: 25.00 Smoking status: Current every day smoker Tobacco type: cigarettes and e-cigarettes/vaping Additional smoking assessment comments: Smokes 6 to 8 cigarettes a day, previously smoked more. Alcohol intake: never Substance use: current Substance use type: marijuana Last use: 1 Do You Feel Safe in your Home?: Yes Lack of Transportation: No Lack of Food: Never True Current Housing: I Have Housing Concerned About Future Housing: No Difficulty Paying Gas/Electric Bills: No Difficulty Paying for Meds: No Currently Unemployed: No Education: Decline to Answer Difficulty w/ Childcare or Family Care: No Living arrangements: with family Occupation/Education: retired Spiritual care concerns: No Exam Narrative: GENERAL: [Well-appearing, well-nourished, and in no acute distress.] HEAD: [Normocephalic, atraumatic.] EYES: [PERRLA and EOMI.] ENT: Nares clear, no rhinorrhea or epistaxis. Mucous membranes moist. NECK: Supple. CHEST: [Clear to auscultation. No respiratory distress.] HEART: [Regular rate and rhythm]. No murmur heard. [Normal peripheral pulses.] ABDOMEN: Distended but soft, tender in the left lower quadrant without guarding or rebound, no peritonitis EXTREMITIES: Normal range of motion. [No edema.] SKIN: Warm, dry, no rash. NEURO: [No focal deficits]. Alert and oriented [x3.] PSYCH: [Normal mood and affect.] Course Vital Signs Vital signs: Vital Signs Temperature 36.4 C L 03/02/25 00:40 Pulse Rate 92 03/02/25 00:40 Respiratory Rate 20 03/02/25 00:40 Blood Pressure 191/99 H 03/02/25 00:40 Pulse Oximetry 97 03/02/25 00:40 Oxygen Delivery Room Air 03/02/25 00:40 Temperature 36.4 C L 03/02/25 00:40 Pulse Rate 63 03/02/25 04:32 Respiratory Rate 18 03/02/25 04:32 Blood Pressure 135/79 03/02/25 04:32 Pulse Oximetry 96 03/02/25 04:32 Oxygen Delivery Room Air 03/02/25 00:40 MDM - Nausea/Vomiting/Diarrhea MDM Narrative Medical decision making narrative: 69-year-old male with a history of paroxysmal AFib status post ablation, history of COPD and HTN. Patient presents to the emergency department today with nausea vomiting diarrhea. Patient states he woke up not feeling well and felt nauseous and had multiple episodes of nonbilious nonbloody vomiting. He then started having voluminous watery diarrhea. No discoloration or bleeding. No black tarry stools. After multiple episodes of this he started getting belly discomfort in his lower abdominal region left-sided. Was otherwise in his normal state of health. Tried taking his nausea medications and his cardiac medications at home for his blood pressure but threw them up. Did not take any of his meds today and has not had any eat or drink. Denies any sick contacts. at bedside has no similar symptoms and does not think it is food poisoning. He was otherwise in his normal state of health. No recent changes to his medication or diet. Patient is not any acute distress but is complaining of nauseousness. Been having multiple episodes of nausea and vomiting with diarrhea throughout the day and then started developing abdominal pain which was not present prior to the onset of symptoms. No fever chills. Does have a distended abdomen that he states is chronic for him. Tender left lower quadrant. Possibility of gastritis, colitis, diverticulitis. Low suspicion intra-abdominal abscess formation but also concern for dehydration given volume loss. He is hypertensive but not able to take any of his medications today secondary to vomiting. Will treat his pain and hydration status with fluids, given Dilaudid Zofran and workup underway with laboratory assessments, urinalysis and CT scan of the abdomen pelvis with contrast. Workup shows a white count of 15, otherwise his CMP is normal. No signs of anemia or platelet concerns. He felt much improved after the medications and his blood pressure resolved without any interventions other than pain control. Did require a touch of oxygen 1 L as he was saturating only 89% after dilaudid but this resolved as well. CT scan was independently reviewed and he does appear to have some inflammation near the colon consistent with colitis confirmed by Radiology. Combined with his white count and symptoms we will treat this as bacterial infection in nature. He was given Flagyl and ciprofloxacin. Oral Bentyl and Pepcid IV. Discussed with patient plan for treatment here in the emergency department with admission if he is not able to tolerate oral intake for continued IV antibiotics and therapy but patient would like to go home and states he has not been nauseous and feeling much better after getting to the ER. Will re-evaluate after completion of treatment for disposition but patient thinks he can go home with oral antibiotics and nausea control if needed. Patient felt better after treatment regimen. Tolerating oral intake. Vital signs are all stable normal and has been symptom free and not nauseous, vomiting or having any diarrhea during his several hours stay in the emergency department. Expressing desire to go home. I discussed with him options including admission for IV treatment and hydration if he has any recurrent symptoms or outpatient antibiotics. Patient would like to go home with antibiotics. He tells me he is on a cardiac medication dofetilide for his AFib status post ablation. This does have lots of drug interactions so we will obtain EKG to assess any QTC issues before providing any additional medication recommendations. Patient adds that he has a cardiology appointment this upcoming morning to discuss taking him off this medication entirely as he has been well off since his ablation and his doctor thinks he doesn't need it anymore. EKG obtained, shows QTC of 480. Been stable and monitored here without any concerns but cannot be sent home with several different typical agents for his symptoms secondary to concern for QTC prolongation in an unmonitored setting. After some searching able to find a regimen including a cephalosporin and Flagyl combination that can be used for colitis as well as meclizine as needed for nausea and vomiting to treat his symptoms. Patient given these prescriptions as well as very strict return precautions and follow-up instructions which he verbalized understanding. Safe for discharge home at this time. Medical Records Attestation: I reviewed the patient's medical records. Lab Data Attestation: I reviewed the patient's lab results. 03/02/25 00:52 03/02/25 00:52 Labs: Lab Results 03/02/25 03/02/25 Range/Units 00:52 01:50 WBC 15.7 H (4.5-10.0) K/mm3 RBC 4.28 L (4.6-6.20) M/mm3 Hgb 13.7 L (14.0-18.0) g/dL Hct 43.0 (42.0-52.0) % MCV 100.5 H (80-100) fl MCH 32.0 (26-34) pg MCHC 31.9 L (32-36) g/dl RDW 14.2 (11.5-14.5) % Plt Count 232 (150-375) k/mm3 MPV 10.5 H (7.4-10.4) fl Immature Gran % (Auto) 0.4 (0-0.5) % Neut % (Auto) 91.2 H (45.5-73.1) % Lymph % (Auto) 5.0 L (18.3-44.2) % [place] % (Auto) 2.8 (2.6-8.5) % Eos % (Auto) 0.3 (0-4.4) % Baso % (Auto) 0.3 (0.2-1.2) % Lymph # (Auto) 0.79 L (0.9-3.2) K/mm3 [place] # (Auto) 0.4 (0.1-0.6) K/mm3 Eos # (Auto) 0.0 (0-0.3) K/mm3 Baso # (Auto) 0.1 (0.0-0.1) K/mm3 Abs Immat Gran (auto) 0.07 H (0.00-0.031) K/mm3 Absolute Neuts (auto) 14.4 H (1.3-6.7) K/mm3 Absolute Nucleated RBC 0.000 (0.0-0.012) K/mm3 Nucleated RBC % 0.0 (0.0-0.2) % Sodium 139 (137-145) mmol/L Potassium 4.3 (3.4-5.0) mmol/L Chloride 106 (98-107) mmol/L Carbon Dioxide 25 (22-30) mmol/L Anion Gap 8 (4-12) mmol/L BUN 17 (9-20) mg/dL Creatinine 1.19 (0.7-1.3) mg/dL Estim Creat Clear Calc 73 ml/min Estimated GFR > 60 (59 - ) Glucose 163 H (65-110) mg/dL Calcium 9.2 (8.4-10.2) mg/dL Total Bilirubin 0.7 (0.2-1.3) mg/dL AST 17 (17-59) U/L ALT 12 (6-50) U/L Alkaline Phosphatase 114 (38-126) U/L Total Protein 7.6 (6.3-8.2) g/dL Albumin 4.1 (3.5-5.1) g/dL Lipase 49 (23-300) U/L Urine Color Yellow (Yellow) Urine Appearance Cloudy H (Clear) Urine pH 5.5 (5.0-9.0) Ur Specific [employer] 1.040 H (1.001-1.035) Urine Protein Trace (Negative) mg/dL Urine Glucose (UA) Negative (Negative) mg/dL Urine Ketones 1+ H (Negative) mg/dL Ur Blood (Man) Negative (Negative) Urine Nitrate Negative (Negative) Urine Bilirubin Negative (Negative) Urine Urobilinogen 1.0 (<2.0) mg/dL Leukocyte Esterase Rfl Negative (Negative) HADLEY/UL Urine RBC 0-2 (0-2) /hpf Urine WBC 0-5 (0-3) /hpf Ur Squamous Epith Cells None seen (Few) /hpf Urine Bacteria None seen /hpf Urine Casts 3-5 Imaging Data Attestation: I personally reviewed and interpreted this imaging study as follows: My impression: Mild colitis Discharge Plan Discharge Clinical Impression: Colitis, Nausea, vomiting and diarrhea Patient Disposition: Home Condition: Stable Instructions: Antibiotic Form, Acute Nausea and Vomiting (ED), Colitis (ED) Additional Instructions: Symptoms are secondary to colitis which is inflammation/infection in your colon. Will treat this with antibiotics for the next several days as well as as needed medications including Meclizine for nausea. Follow-up with your primary care provider. If not able to tolerate oral intake, feeling dizzy, lightheaded, passing out, feeling dehydrated, having worsening symptoms or pain please return to the emergency department. Patient Language: Malay Prescriptions: New cefuroxime axetil 500 mg tablet 500 mg PO Q12H 5 Days Qty: 10 0RF metronidazole 500 mg tablet 500 mg PO BID 5 Days Qty: 10 0RF meclizine 25 mg tablet 25 mg PO TID PRN (Reason: nausea and vomiting) 10 Days Qty: 30 0RF No Action umeclidinium-vilanterol [Anoro Ellipta] 62.5-25 mcg/actuation blister with device 1 inh INHALATION DIRECTED sildenafil [Viagra] 100 mg Tablet 100 mg PO DAILY PRN (Reason: Erectile Dysfunction) metoprolol succinate [Toprol XL] 25 mg Tablet Extended Release 24 Hr 25 mg PO QAM Qty: 30 0RF lisinopril 20 mg tablet 20 mg PO DAILY rosuvastatin 20 mg tablet 20 mg PO DAILY apixaban 5 mg tablet 5 mg PO BID dofetilide 250 mcg capsule 250 mcg PO BID albuterol sulfate 90 mcg/actuation HFA aerosol inhaler INHALATION metoclopramide HCl [Reglan] 10 mg tablet 10 mg PO Q6H PRN (Reason: nausea and vomiting) Qty: 30 0RF omeprazole 40 mg capsule,delayed release(DR/EC) 40 mg PO DAILY Qty: 30 0RF Follow-up/Referrals: Neymar Fuentes MD [Primary Care Provider, Family Practice] Time of Disposition: 05:03
[2025-03-02] MEDS: HYDROmorphone HCL INJ (*CRX) 1 MG/ML SYR IV PUSH (01:14)
[2025-03-02 01:15] LABS: Hematocrit 43.0 % (42.0-52.0); Hemoglobin 13.7 g/dL (14.0-18.0); Immature Granulocyte Percent A 0.4 % (0-0.5); Lymphocytes Absolute Auto 0.79 K/mm3 (0.9-3.2); Mean Corpuscular HGB Conc 31.9 g/dl (32-36); Mean Corpuscular Hemoglobin 32.0 pg (26-34); Mean Corpuscular Volume 100.5 fl (80-100); Nucleated Red Blood Cells Absolute Auto 0.000 K/mm3 (0.0-0.012); Nucleated Red Blood Cells Perc 0.0 % (0.0-0.2); Platelet Count Result 232 k/mm3 (150-375); Red Blood Count 4.28 M/mm3 (4.6-6.20); White Blood Count 15.7 K/mm3 (4.5-10.0)
[2025-03-02] MEDS: ONDANSETRON INJ 4 MG/2 ML VIAL IV PUSH (01:15)
[2025-03-02] MEDS: LACTATED RINGERS 1,000 ML 999 ML IV CONT (01:16)
[2025-03-02 01:27] LABS: Alanine Aminotransferase 12 U/L (6-50); Albumin Level 4.1 g/dL (3.5-5.1); Alkaline Phosphatase 114 U/L (38-126); Anion Gap 8 mmol/L (4-12); Aspartate Amino Transferase 17 U/L (17-59); Bilirubin,Total 0.7 mg/dL (0.2-1.3); Blood Urea Nitrogen 17 mg/dL (9-20); Calcium 9.2 mg/dL (8.4-10.2); Carbon Dioxide 25 mmol/L (22-30); Chloride 106 mmol/L (98-107); Estimated CRCL calculation 73 ml/min; Estimated Glomerular Filt Rate > 60; Glucose 163 mg/dL (65-110); Lipase 49 U/L (23-300); Potassium 4.3 mmol/L (3.4-5.0); Sodium 139 mmol/L (137-145); Total Protein 7.6 g/dL (6.3-8.2)
[2025-03-02 02:06] LABS: Add Urine Microscopic? YES; Appearance Urine Cloudy (Clear); Glucose Urine UA Negative (Negative); Leukocyte Esterase Ur Negative LEU/UL (Negative); Nitrate Urine Negative (Negative); Specific Grav Ur 1.040 (1.001-1.035)
[2025-03-02 02:15] VITALS: BP 144/62; PULSE 64; RESP 22; O2SAT 93
[2025-03-02] MEDS: DICYCLOMINE HCL 10 MG CAPSULE 20 MG PO (03:26)
[2025-03-02] MEDS: FAMOTIDINE 20 MG/2 ML VIAL IV PUSH (03:27)
[2025-03-02] MEDS: metroNIDAZOLE 500 MG/ISO 100ML 500 MG/100 ML BAG 100 MG IVPB (03:32)
[2025-03-02] MEDS: CIPROFLOXACIN 400 MG/D5W 200ML 200 ML 200 MG IVPB (03:32)
[2025-03-02 03:37] VITALS: BP 152/84; PULSE 62; RESP 18; O2SAT 95
[2025-03-02 04:32] VITALS: BP 135/79; PULSE 63; RESP 18; O2SAT 96
--- NOTE | 2025-03-02 04:36 | ECG_ITS ---
Test Date: 2025-03-02 04:41:03 Measurements Intervals [place] Rate: 59 P: 81 VT: 212 QRS: -69 QRSD: 137 T: 18 QT: 489 QTc: 486 Interpretive Statements SINUS BRADYCARDIA WITH FIRST DEGREE AV BLOCK RIGHT BUNDLE BRANCH BLOCK [120+ ms QRS DURATION, UPRIGHT V1, 40+ ms S IN I/aVL/V4/V5/V6] LEFT ANTERIOR FASCICULAR BLOCK [QRS AXIS <= -45, QR IN I, RS IN II] Compared to ECG 12/14/2024 17:56:02 First degree AV block now present Electronically Signed On 03-02-2025 06:04:01 CDT by Salud Arenas M.D.
== END 2025-03-02 05:02 | disposition home or self-care (01) ==
PROVIDERS: Emergency Provider Student in an Organized Health Care Education/Training Program; PCP Family Medicine
DX: K52.9 Noninfective gastroenteritis and colitis, unspecified (principal); I48.0 Paroxysmal atrial fibrillation; I10 Essential (primary) hypertension; J44.9 Chronic obstructive pulmonary disease, unspecified; E78.5 Hyperlipidemia, unspecified; I69.911 Memory deficit following unspecified cerebrovascular disease; M19.90 Unspecified osteoarthritis, unspecified site; K44.9 Diaphragmatic hernia without obstruction or gangrene; F17.210 Nicotine dependence, cigarettes, uncomplicated; F17.290 Nicotine dependence, other tobacco product, uncomplicated; Z85.118 Personal history of other malignant neoplasm of bronchus and lung; Z86.0100 Personal history of colon polyps, unspecified; Z96.641 Presence of right artificial hip joint; Z90.49 Acquired absence of other specified parts of digestive tract; Z90.2 Acquired absence of lung [part of]; Z79.899 Other long term (current) drug therapy; Z79.01 Long term (current) use of anticoagulants; I44.0 Atrioventricular block, first degree; I45.2 Bifascicular block
CPT/HCPCS: 36415; 74177; 80053; 81001; 83690; 85025; 93005; 96361; 96365; 96368; 96375; 99284; A9270; J0744; J1171; J1836; J2405; J7120; Q9967